=== PATIENT | male | born 1960 | race Caucasian/White ===

== ENCOUNTER 2022-06-18 15:34 | Inpatient (IN) | payer MEDICARE, SELFPAY ==
--- NOTE | 2022-06-18 15:35 | ED_ITS ---
HPI - Chest Pain General: Chief Complaint: Chest Pain Stated Complaint: Chest Pain Time Seen by Provider: 06/18/22 15:35 History of Present Illness: Mr. Trinh is a 62-year-old gentleman with history of NV, strokes, diabetes, hypertension presenting to the emergency department due to chest pain. He reports pain starting yesterday in the substernal chest region with radiation left shoulder and arm. Sharp in nature and more consistent today. Moderate to severe in intensity. Worse with exertion, does note some shortness of breath and nausea. Reports previous cardiac evaluation a pproximately 4 years ago. No other specific changes in health, exacerbating, or alleviating factors identified. Pertinent past history: coronary artery disease and prior NV Onset (ago): day(s) Timing of current episode: constant Prior episodes: Yes Onset: during exertion Pain location: substernal Pain radiation: left arm and left shoulder Severity: moderate Quality: aching and heaviness Exacerbating factors: exertion Associated symptoms: Reports dyspnea and nausea Review of Systems General: Reports: 10 or more systems reviewed and unremarkable except in HPI and below Resp: Reports: dyspnea GI: Reports: nausea PFSH ED PFSH: Medical History Abnormal nuclear stress test Angina at rest Chest pain Diabetes Diabetic neuropathy, painful Hyperglycemia Hypertension Hypertensive urgency Surgical History History of surgical removal of meniscus of knee Family History Other CAD (coronary artery disease) Diabetes Social History Smoking and tobacco status: former smoker Alcohol intake: former Physical Exam Const: COMMON NORMALS: alert GENERAL APPEARANCE: cooperative and well developed HENMT: COMMON NORMALS: normocephalic and atraumatic HEAD & SCALP: normocephalic and atraumatic Eye: COMMON NORMALS: conjunctivae normal CONJUNCTIVA: Yes conjunctivae normal SCLERA: sclerae normal Neck/C-Spine: COMMON NORMALS: supple GENERAL: Yes trachea midline Resp: COMMON NORMALS: clear to auscultation bilaterally EFFORT & INSPECTION: Yes able to speak in complete sentences AUSCULTATION: clear to auscultation bilaterally Cardio: COMMON NORMALS: regular rate and regular rhythm RATE: regular rate RHYTHM: regular rhythm GI: COMMON NORMALS: Soft to palpation PALPATION: Yes Soft to palpation and No Tenderness to palpation present (GI) Extremity: GENERAL: Yes normal exam except as noted and No edema Neuro: COMMON NORMALS: moves all extremities SENSORIUM/ORIENTATION: Yes alert and No Orientation impaired Psych: COMMON NORMALS: mental status grossly normal and Normal thought process present THOUGHT PROCESS: Normal thought process present Course Vital Signs: Vital signs: Vital Signs Temperature 97.9 F 06/23/22 03:38 Pulse Rate 66 06/23/22 17:45 Respiratory Rate 19 H 06/23/22 17:45 Blood Pressure 154/88 06/23/22 18:00 Pulse Oximetry 94 06/23/22 17:30 Oxygen Delivery Me thod 06/23/22 12:30 MDM - Chest Pain Medical Decision Making 62-year-old gentleman presenting with sharp chest pain. Patient does have a cardiac history. EKG notable for sinus rhythm with nonspecific interventricular conduction delay, no STEMI. Labs with no leukocytosis, mild hemoconcentration. Metabolic panel without acute derangement to explain symptoms. 2-hour delta troponin is negative. BNP mildly elevated. D-dimer elevated. Chest x-ray with no lobar consolidation or pneumothorax. Given provided clinical history as well as exam and new oxygen requirement advanced imaging is necessary. CTA negative for acute pathology, incidental findings discussed with patient. Patient is not low risk by heart score. Previous cardiac evaluation is multiple years ago. Symptoms are concerning for cardiac etiology. The results of ED evaluation were discussed with the patient including plan for admission due to requirement for level of care not available if discharged to prevent significant worsening/deterioration. Patient agreeable with plan. Discussed with hospitalist service who was agreeable to admit patient. Medical Records I reviewed the patient's medical records. Lab Data I reviewed the patient's lab results. 06/18/22 16:03 06/18/22 18:18 Radiology Impressions Chest X-Ray 06/18/22 15:44 IMPRESSION: No acute findings. Chest CTA 06/19/22 13:18 IMPRESSION: No evidence for pulmonary embolus. Laboratory Results WBC 8.0 10^3/uL (4.0-10.0) 06/18/22 16:03 RBC 6.44 10^6/uL (4.1-5.3) H 06/18/22 16:03 Hgb 18.3 g/dL (11.7-16.6) H 06/18/22 16:03 Hct 53.5 % (42.0-52.0) H 06/18/22 16:03 MCV 83.1 fl (80-94) 06/18/22 16:03 MCH 28.4 pg (28.0-34.0) 06/18/22 16:03 MCHC 34.2 g/dL (30.0-36.0) 06/18/22 16:03 RDW 13.4 % (12.1-15.1) 06/18/22 16:03 Plt Count 285 10^3/cmm (130-400) 06/18/22 16:03 MPV 11.3 fL (7.4-10.4) H 06/18/22 16:03 Neut % (Auto) 62.1 % 06/18/22 16:03 Lymph % (Auto) 29.3 % 06/18/22 16:03 [place] % (Auto) 7.3 % 06/18/22 16:03 Eos % (Auto) 0.4 % 06/18/22 16:03 Baso % (Auto) 0.5 % 06/18/22 16:03 Neut # (Auto) 4.95 10^3/uL (1.8-7.7) 06/18/22 16:03 Lymph # (Auto) 2.3 10^3/uL (0.8-4.8) 06/18/22 16:03 [place] # (Auto) 0.6 10^3/uL (0.2-0.9) 06/18/22 16:03 Eos # (Auto) 0.0 10^3/uL (0.0-0.8) 06/18/22 16:03 Baso # (Auto) 0.0 10^3/uL (0.0-0.1) 06/18/22 16:03 Nucleated RBC % (auto) 0 % 06/18/22 16:03 Nucleated RBCs # 0.0 /100WBC 06/18/22 16:03 D-Dimer 0.67 ug/mIFEU (0-0.59) H 06/18/22 20:20 Sodium 136 mmol/L (136-145) 06/19/22 04:18 Potassium 3.9 mmol/L (3.5-5.1) 06/19/22 04:18 Chloride 102 mmol/L (98-107) 06/19/22 04:18 Carbon Dioxide 28 mmol/L (22-29) 06/19/22 04:18 Anion Gap 9.9 (5-19) 06/19/22 04:18 BUN 17 mg/dL (8-23) 06/19/22 04:18 Creatinine 1.0 mg/dL (0.7-1.2) 06/19/22 04:18 GFR Calculation 76.0 mL/min (90-130) L 06/19/22 04:18 Glucose 235 mg/dL (65-115) H 06/19/22 04:18 POC Glucose 83 mg/dL (70-110) 06/19/22 16:55 Estimat Average Glucose 206 06/18/22 16:03 Hemoglobin A1c 8.8 % (4.0-6.0) H 06/18/22 16:03 Calculated Osmolality 291 mOsm/kg (285-295) 06/19/22 04:18 Calcium 8.9 mg/dL (8.5-10.5) 06/19/22 04:18 Phosphorus 4.3 mg/dL (2.5-4.5) 06/19/22 04:18 Magnesium 1.8 mg/dL (1.7-2.3) 06/19/22 04:18 Total Bilirubin 0.4 mg/dL (0.15-1.2) 06/18/22 18:18 AST 11 U/L (0-40) 06/18/22 18:18 ALT 11 U/L (0-41) 06/18/22 18:18 Alkaline Phosphatase 124 U/L (40-130) 06/18/22 18:18 Troponin T Baseline 16 ng/L (0-15) H 06/18/22 16:03 Troponin T 120 Minute 17.37 ng/L (0-15) H 06/18/22 18:18 Delta Troponin T 1.37 ABS# (0-10) 06/18/22 18:18 Troponin T Hi Sens 6Hr 22.88 ng/L (0-15) H 06/18/22 22:05 Troponin T Hi Sens 6Hr Delta 6.88 ng/L (0-12) 12/23/22 22:05 C-Reactive Protein 3.0 mg/L (0.0-4.9) 06/19/22 04:18 NT-Pro-B Natriuret Pep 2051 pg/mL (0-125) H 06/18/22 17:15 Total Protein 5.9 g/dL (6.6-8.7) L 06/18/22 18:18 Albumin 3.1 g/dL (3.5-5.2) L 06/18/22 18:18 Globulin 2.8 g/dL (1.3-4.6) 06/18/22 18:18 Lipase Cancelled 06/18/22 16:03 Vitamin B12 479 pg/mL (232-1245) 06/18/22 22:05 Procalcitonin 0.05 ng/mL (0-0.5) 06/18/22 17:15 TSH 3.98 uIU/mL (0.27-4.20) 06/18/22 22:05 Urine Opiates Screen Negative ng/mL (Negative) 06/19/22 08:15 Ur Barbiturates Screen Negative ng/mL (Negative) 06/19/22 08:15 Ur Phencyclidine Scrn Negative ng/mL (Negative) 06/19/22 08:15 Ur Amphetamines Screen Negative ng/mL (Negative) 06/19/22 08:15 U Benzodiazepines Scrn Negative ng/mL (Negative) 06/19/22 08:15 Urine Cocaine Screen Negative ng/mL (Negative) 06/19/22 08:15 U Marijuana (THC) Screen Positive ng/mL (Negative) H 06/19/22 08:15 Influenza Type A Ag negative (Negative) 06/18/22 17:27 Influenza Type B Ag negative (Negative) 06/18/22 17:27 SARS-CoV-2 Ag (Rapid) negative (Negative) 06/18/22 17:27 Discharge Plan Discharge Patient Disposition: Placed in Observation Admit Provider: Yomaira Holder Clinical Impression: Chest pain Discharge Diet: Cardiac Discharge Activity: Increase activity as tolerated Coding Level of Care Code ED Hoister for dandre Fuchs
[2022-06-18 15:42] VITALS: BP 184/104; PULSE 83; RESP 20; O2SAT 100
--- NOTE | 2022-06-18 15:44 | XRR_ITS ---
PROCEDURE INFORMATION: Exam: XR Chest Exam date and time: 06/18/2022 3:47 PM Age: 62 years old Clinical indication: Angina pectoris; Patient HX: Chest pains, cough, since yesterday; Additional info: Cp TECHNIQUE: Imaging protocol: Radiologic exam of the chest. Views: 1 view. COMPARISON: No relevant prior studies available. FINDINGS: Lungs: Unremarkable. No consolidation. Pleural spaces: Unremarkable. No pleural effusion. No pneumothorax. Heart/Mediastinum: Unremarkable. No cardiomegaly. Bones/joints: Unremarkable. XR/XR chest 1V portable [id number] IMPRESSION: No acute findings.
--- NOTE | 2022-06-18 15:44 | ECG_ITS ---
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 Measurements Intervals [place] Rate: 79 P: 54 MD: 159 QRS: -68 QRSD: 117 T: 77 QT: 339 QTc: 391 Interpretive Statements SINUS RHYTHM INCOMPLETE RIGHT BUNDLE BRANCH BLOCK LEFT ANTERIOR FASCICULAR BLOCK SEPTAL MYOCARDIAL INFARCTION , OF INDETERMINATE AGE No previous ECG available for comparison Electronically Signed On 06-18-2022 17:35:12 WAREHOUSE RECORD CLERK by Alice Teixeira M.D. [email or web address] health madisonConsult Mango, Incselect medical cle[facility], beachwoodnothingGrinder/store/NU/[id number] f
[2022-06-18 16:18] LABS: Basophils % 0.5 %; Eosinophils % 0.4 %; Hematocrit 53.5 % (42.0-52.0); Hemoglobin 18.3 g/dL (11.7-16.6); Lymphocytes # 2.3 10^3/uL (0.8-4.8); Lymphocytes % 29.3 %; Mean Corpuscular HGB Conc 34.2 g/dL (30.0-36.0); Mean Corpuscular Hemoglobin 28.4 pg (28.0-34.0); Mean Corpuscular Volume 83.1 fl (80-94); Mean Platelet Volume 11.3 fL (7.4-10.4); Monocytes # 0.6 10^3/uL (0.2-0.9); Monocytes % 7.3 %; Neutrophils # 4.95 10^3/uL (1.8-7.7); Neutrophils % 62.1 %; Nucleated Red Blood Cells % 0 %; Platelet Count 285 10^3/cmm (130-400); Red Blood Count 6.44 10^6/uL (4.1-5.3); Red Cell Distribution Width 13.4 % (12.1-15.1)
[2022-06-18 17:19] LABS: Troponin(5th) Baseline 16 ng/L (0-15)
[2022-06-18 17:47] LABS: NT Pro B Type Natriuretic Pept 2051 pg/mL (0-125); Procalcitonin 0.05 ng/mL (0-0.5)
--- NOTE | 2022-06-18 18:08 | ECG_ITS ---
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 Measurements Intervals Check Rate: 92 P: 46 CT: 161 QRS: -71 QRSD: 111 T: 73 QT: 348 QTc: 432 Interpretive Statements SINUS RHYTHM LEFT AXIS DEVIATION [QRS AXIS < -30] MINIMAL VOLTAGE CRITERIA FOR LVH, CONSIDER NORMAL VARIANT POSSIBLE SEPTAL MYOCARDIAL INFARCTION , OF INDETERMINATE AGE Compared to ECG 06/18/2022 15:43:47 Left-axis deviation now present Incomplete right bundle-branch block no longer present Left anterior fascicular block no longer present Myocardial infarct finding still present Electronically Signed On 06-19-2022 11:03:58 INFORMATION STRATEGIST by Alice Teixeira M.D. [email or web address] medical clevel[facility] clinic rehabilitation [facility], beachwood.[employer] Gentleman/store/[id number]
[2022-06-18 18:25] VITALS: BP 142/72; PULSE 88; RESP 16; O2SAT 95
[2022-06-18 18:27] LABS: Influenza A by IFA negative (Negative); Influenza B by IFA negative (Negative)
[2022-06-18 18:28] LABS: SARS Covid-2 Antigen negative (Negative)
[2022-06-18 18:55] LABS: Alanine Aminotransferase 11 U/L (0-41); Albumin Level 3.1 g/dL (3.5-5.2); Alkaline Phosphatase 124 U/L (40-130); Anion Gap 11.9 (5-19); Aspartate Amino Transferase 11 U/L (0-40); Blood Urea Nitrogen 15 mg/dL (8-23); Calcium 9.3 mg/dL (8.5-10.5); Carbon Dioxide 29 mmol/L (22-29); Chloride 100 mmol/L (98-107); Globulin 2.8 g/dL (1.3-4.6); Glomerular Filtration Rate 98.3 mL/min (90-130); Glucose 290 mg/dL (65-115); Osmolality Calculated 295 mOsm/kg (285-295); Potassium 3.9 mmol/L (3.5-5.1); Sodium 137 mmol/L (136-145); Total Bilirubin 0.4 mg/dL (0.15-1.2); Total Protein 5.9 g/dL (6.6-8.7); Troponin 5 2HR 17.37 ng/L (0-15)
[2022-06-18 18:57] LABS: Troponin 5 2HR Delta 1.37 ABS# (0-10)
--- NOTE | 2022-06-18 19:56 | PM.HP ---
Providers/Chief Complaint Admitting Physician: Yomaira Holder MD Chief Complaint: Chest Pain History of Present Illness Cam Trinh is a 62 year old male moved from [place], currently homeless, living in a van, patient is stating that he mostly stays on the road, history of diabetes, hypertension, diabetic nephropathy, presented to hospital chief complaint of chest pain. Patient stating that his symptoms started yesterday 06/17 when he was sitting in a car with his friends he described the chest pain as squeezing pain radiating towards his left arm which would last for a few seconds and occur repeatedly without any aggravating factors for he has not noticed any nausea, vomiting, recent fever, diarrhea or cold/flu symptoms. Today around 3:30 AM when he woke up to go out in the [place] to urinate he started experiencing chest pain, he ignored his symptoms initially but intensity of pain got worse at that point 911 was called he arrived in the ER around 4 PM. Patient has not taken any of his meals he is hypertensive, hyperglycemic, currently chest pain-free, D-dimer unremarkable 0.67, troponin are flat EKG showing T wave inversions, incomplete right bundle branch block Flu panel negative Chest x-ray unremarkable Patient is setting for years ago he had a stress test which was positive but he never had any intervention done Lead V2 changes are isolated related to bundle branch block, Review of Systems Const: Denies: fever(s) Eyes: Denies: change in vision ENMT: Denies: throat pain Card: Reports: chest pain Resp: Reports: dyspnea GI: Denies: abdominal pain : Denies: flank pain Musc: Denies: neck pain Skin/Breast: Denies: rash Neuro: Denies: headache(s) Psych: Denies: anxiety Endo: Denies: polyuria Shashi/Lymph: Denies: easy bruising All/Imm: Denies: urticaria Medications/Allergies Home Medications Medication Instructions Recorded Confirmed Last Taken Type aspirin 81 mg tablet,delayed 81 mg PO DAILY 06/18/22 06/18/22 Unknown History release gabapentin 300 mg capsule 300 mg PO TID 06/18/22 06/18/22 Unknown History insulin glargine 100 unit/mL (3 See Rx Instructions .Route .COMPLEX 06/18/22 06/18/22 Unknown History mL) subcutaneous pen (Basaglar KwikPen U-100 Insulin) insulin glargine 100 unit/mL (3 See Rx Instructions .Route .COMPLEX 06/18/22 06/18/22 06/15/22 History mL) subcutaneous pen (Lantus Solostar U-100 Insulin) metformin 1,000 mg tablet 1,000 mg PO BID 06/18/22 06/18/22 Unknown History metoprolol tartrate 50 mg tablet 50 mg PO BID 06/18/22 06/18/22 Unknown History ramipril 10 mg capsule 10 mg PO DAILY 06/18/22 06/18/22 Unknown History Allergies Allergy/AdvReac Type Severity Reaction Status Date / Time No Known Allergies Allergy Verified 06/18/22 16:44 PFSH Acute PFSH: Medical History (Updated 06/18/22 @ 21:45 by Yomaira Holder MD) Diabetic neuropathy, painful Hypertension Surgical History (Updated 06/18/22 @ 21:45 by Yomaira Holder MD) History of surgical removal of meniscus of knee Family History (Updated 06/18/22 @ 21:45 by Yomaira Holder MD) Other CAD (coronary artery disease) Diabetes Social History (Updated 06/18/22 @ 21:46 by Yomaira Holder MD) Smoking and tobacco status: former smoker Alcohol intake: former Substance/Drug Use: never Vitals/I&O/Wt Last Vital Signs Pulse 88 06/18/22 18:25 Resp 16 06/18/22 18:25 BP 142/72 06/18/22 18:25 Pulse Ox 95 06/18/22 18:25 O2 Del Method 06/18/22 15:42 Physical Exam Narrative: Disheveled, unkept appearance Patient is not complaining active chest pain S1, S2 Hypertensive Continue on room air Abdomen soft Lower extremity no edema Awake and alert On focal exam Pleasant and cooperative EOMI, PERRLA Data 06/18/22 16:03 06/18/22 18:18 A&P Assessment and plan (1) Angina at rest: Plan Unstable angina Trend troponin Check D-dimer EKG showing isolated changes related to bundle branch block Continue Lovenox DVT prophylaxis Consistent carb diet with insulin and medium dose sliding scale Will request echo to see any wall motion abnormality I am anticipating he will be discharged over the weekend, need optimization of his hypertensive regimen and hypoglycemic regimen. He is homeless currently living in his van has not taken any of his pills Patient is stating that he is not moving back to [place] because his car breaks needs replacement, he will stay in the town for a while Full code DVT prophylaxis on board Attestations Medical Necessity Statement*: Anticipating discharge within 48 hours Time Spent in Patient Care: 40 Coding Level of Care Code Acute Vocational Counselor for Taqueria Fuchs Diagnoses Angina at rest I20.8
[2022-06-18 20:39] LABS: D Dimer 0.67 ug/mIFEU (0-0.59)
[2022-06-18] MEDS: labetalol 5 mg/mL SDV 20mL 10 MG IVP (20:50)
[2022-06-18 21:38] LABS: Glucose Point of Care 292 mg/dL (70-110)
--- NOTE | 2022-06-18 21:38 | ECG_ITS ---
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 Measurements Intervals [place] Rate: 82 P: 57 HI: 163 QRS: -73 QRSD: 117 T: 74 QT: 375 QTc: 438 Interpretive Statements SINUS RHYTHM LEFT AXIS DEVIATION [QRS AXIS < -30] INCOMPLETE RIGHT BUNDLE BRANCH BLOCK [90+ ms QRS DURATION, TERMINAL R IN V1/V2, 40+ ms S IN I/aVL/V4/V5/V6] PROBABLE SEPTAL MYOCARDIAL INFARCTION , OF INDETERMINATE AGE [35 ms Q WAVE IN V1/V2] Compared to ECG 06/18/2022 18:08:16 Incomplete right bundle-branch block now present Myocardial infarct finding still present Electronically Signed On 06-19-2022 10:59:41 MATERIALS ASSISTANT by Alice Teixeira M.D. [id number]
[2022-06-18 22:00] VITALS: BP 145/87; PULSE 86; RESP 18; TEMP 36.6; O2SAT 97
[2022-06-18] MEDS: gabapentin 300 mg Capsule PO (22:12)
[2022-06-18] MEDS: insulin glargine 100 units/1 mL 60 UNIT SUBCUT (22:12)
[2022-06-18] MEDS: enoxaparin 40 mg/0.4 mL Syringe SUBCUT (22:12)
[2022-06-18 22:25] LABS: Estmated Average Glucose 206; Hemoglobin A1C 8.8 % (4.0-6.0)
[2022-06-18 22:34] LABS: Troponin 5 6HR 22.88 ng/L (0-15)
[2022-06-18 22:36] LABS: Troponin 5 6HR Delta 6.88 ng/L (0-12)
[2022-06-18 22:51] LABS: Thyroid Stimulating Hormone 3.98 uIU/mL (0.27-4.20); Vitamin B12 479 pg/mL (232-1245)
[2022-06-19] VITALS (8 sets, daily range): BP systolic 148–190; BP diastolic 70–90; PULSE 60–72; RESP 15–18; TEMP 36.4–36.7; O2SAT 96–99
[2022-06-19 05:26] LABS: Anion Gap 9.9 (5-19); Blood Urea Nitrogen 17 mg/dL (8-23); Calcium 8.9 mg/dL (8.5-10.5); Carbon Dioxide 28 mmol/L (22-29); Chloride 102 mmol/L (98-107); Glucose 235 mg/dL (65-115); Magnesium 1.8 mg/dL (1.7-2.3); Osmolality Calculated 291 mOsm/kg (285-295); Phosphorus 4.3 mg/dL (2.5-4.5); Potassium 3.9 mmol/L (3.5-5.1); Sodium 136 mmol/L (136-145)
--- NOTE | 2022-06-19 06:00 | USCV_ITS ---
Cam Trinh Age: 62 Gender: M : 1960 Exam Date: 06/19/2022 11:30 Ordering Phys: Yomaira Holder MD Technologist: KAYCEE Exam Location: [facility] [place] Indication: Angina BP: 170 / 79 HR: 59 Rhythm: Sinus Technical Quality: Adequate MEASUREMENTS (Male / Female) Normal Values 2D ECHO LV Diastolic Diameter PLAX 5.8 cm 4.2 - 5.9 / 3.9 - 5.3 cm LV Systolic Diameter PLAX 4.1 cm IVS Diastolic Thickness 0.6 cm 0.6 - 1.0 / 0.6 - 0.9 cm IVS Systolic Thickness 1.3 cm LVPW Diastolic Thickness 0.7 cm 0.6 - 1.0 / 0.6 - 0.9 cm LVPW Systolic Thickness 1.4 cm LVOT Diameter 2.3 cm LV Ejection Fraction 2D Teich 56.0 % LV Ejection Fraction MOD 2C 42.5 % LV Ejection Fraction 2C AL 42.9 % LA Diameter 3.5 cm IVC Diameter 1.4 cm M-MODE Aortic Annulus Diameter 3.2 cm LA Ao Ratio MM 1.2 MV E Point Septal Separation 1.3 cm DOPPLER AV Peak Velocity 125.0 cm/s LVOT Peak Velocity 107.0 cm/s AV Area Cont Eq vti 3.2 cm squared AV Area Cont Eq pk 3.6 cm squared MV Area PHT 2.5 cm squared Mitral E to A Ratio 0.7 MV E' Velocity 43.0 cm/s Mitral E to MV E' Ratio 18.2 Mitral E to LV E' Lateral Ratio 20.0 Mitral E to LV E' Septal Ratio 17.1 TR Peak Velocity 197.0 cm/s TR Peak Gradient 15.5 mmHg TV Peak E Velocity 75.0 cm/s Right Atrial Pressure 3.0 mmHg Pulmonary Artery Systolic Pressu 18.5 mmHg FINDINGS Left Ventricle Normal left ventricular size, systolic function and wall thickness, with no regional wall motion abnormalities. Left ventricular ejection fraction is estimated at 55 %. Grade II diastolic dysfunction, moderately elevated filling pressures. Right Ventricle Normal right ventricular size and systolic function. RVSP could not be calculated due to incomplete tricuspid regurgitation velocity profile. Right Atrium Normal right atrial size. Left Atrium Mildly increased left atrial size. Mitral Valve Mild mitral annular calcification. Mildly thickened mitral valve. No mitral valve stenosis. Trace mitral valve regurgitation. Aortic Valve Aortic valve not well visualized. No aortic valve stenosis. Trace aortic valve regurgitation. Tricuspid Valve Structurally normal tricuspid valve. No tricuspid valve stenosis. Trace tricuspid valve regurgitation. Pulmonic Valve Pulmonic valve not well visualized. Pericardium No pericardial effusion. Aorta Normal size aortic root and proximal ascending aorta. IVC Normal IVC dimension with >50% respiratory change of the inferior vena cava. CONCLUSIONS 1. Normal left ventricular size, systolic function and wall thickness, with no regional wall motion abnormalities. Left ventricular ejection fraction is estimated at 55 %. Grade II diastolic dysfunction, moderately elevated filling pressures. 2. Normal right ventricular size and systolic function. 3. Trace aortic valve regurgitation. 4. No prior similar studies to compare. Alice Teixeira MD (Electronically Signed) Final Date: 19 June 2022 14:01 S
[2022-06-19 07:31] LABS: Glucose Point of Care 192 mg/dL (70-110)
[2022-06-19] MEDS: insulin lispro 100 unit/1 mL SUBCUT ×2 (08:30→12:42)
[2022-06-19] MEDS: gabapentin 300 mg Capsule PO ×3 (08:38→20:42)
[2022-06-19] MEDS: lisinopril 20 mg Tablet PO (08:38)
[2022-06-19] MEDS: aspirin 81 mg EC Tablet PO (08:38)
[2022-06-19] MEDS: metoprolol tartrate 50 mg Tablet PO ×2 (08:39→17:16)
[2022-06-19] MEDS: NON-FORMULARY MEDICATION (Insulin Glargine [Lantus Solostar U-100 Insulin] 100 unit/mL (3 40 EACH SUBCUT (08:44)
[2022-06-19 11:01] LABS: Glucose Point of Care 201 mg/dL (70-110)
[2022-06-19 11:04] LABS: Amphetamines Screen Urine Negative (Negative); Barbiturates Screen Urine Negative (Negative); Benzodiazepines Screen Urine Negative (Negative); Cocaine Screen Urine Negative (Negative); Opiate Screen Urine Negative (Negative); PCP Screen Urine Negative (Negative); THC Screen Urine Positive (Negative)
--- NOTE | 2022-06-19 13:14 | P.PN_ITS ---
Subjective Subjective: Seen this morning. No acute events overnight Denies any chest pain at this time Says he has had stress test done 4 years ago and does have a history of coronary artery disease. He is also had an angiogram in the past. He is unsure if he has a stent or not. He says all this work-up was done in [facility]. Right now he is chest pain- free. Does not take his medications at home as he ran out. Does not know the names either. However he does state he was on a blood thinner, insulin, metformin and blood pressure medication. Does not know names or specifics. Denies a history of atrial fibrillation. Vitals/I&O/Wt Last Vital Signs Temp 98.0 F 06/19/22 11:05 Pulse 65 06/19/22 11:05 Resp 15 06/19/22 11:05 BP 170/79 06/19/22 11:05 Pulse Ox 99 06/19/22 11:05 O2 Del Method 06/19/22 11:05 06/18/22 06/19/22 06/19/22 22:59 06:59 14:59 Intake Total 360 / 360 Balance 360 / 360 Physical Exam Narrative: Disheveled, unkept appearance Patient is not complaining active chest pain S1, S2 Hypertensive Continue on room air Abdomen soft Lower extremity no edema Awake and alert On focal exam Pleasant and cooperative EOMI, PERRLA Data 06/18/22 16:03 06/19/22 04:18 A&P Assessment and plan (1) Angina at rest: Plan Unstable angina/chest pain History of CAD Hypertension Diabetes mellitus complicated by peripheral neuropathy Noncompliance to medications Troponins negative. Delta negative. BNP 2000. D-dimer 0.67. Will check CTA. EKG showing isolated changes related to bundle branch block Continue Lovenox DVT prophylaxis Consistent carb diet with insulin and medium dose sliding scale Will request echo to see any wall motion abnormality Will do stress test Tuesday. Continue lisinopril 20 mg daily Add amlodipine 5 mg daily. Full code DVT prophylaxis on board Attestations Medical Necessity Statement*: Patient will be kept in the hospital. Stress test on Tuesday. Echo is pending at this time. Time Spent in Patient Care: 40 Coding Level of Care Code Acute Barrel Endshaker Adjuster for Taqueria Fuchs Diagnoses Angina at rest I20.8
--- NOTE | 2022-06-19 13:18 | CTR_ITS ---
PROCEDURE INFORMATION: Exam: CTA Chest With Contrast Exam date and time: 06/19/2022 8:24 PM Age: 62 years old Clinical indication: Pain; Shortness of breath; Chest pressure; Additional info: R/O pe TECHNIQUE: Imaging protocol: Computed tomographic angiography of the chest with contrast. 3D rendering (Not supervised by radiologist): MIP and/or 3D reconstructed images were created by the technologist. Radiation optimization: All CT scans at this facility use at least one of these dose optimization techniques: automated exposure control; mA and/or kV adjustment per patient size (includes targeted exams where dose is matched to clinical indication); or iterative reconstruction. Contrast material: OMNI 350; Contrast volume: 100 ml; Contrast route: INTRAVENOUS (IV); COMPARISON: CR XR chest 1V portable [id number] 06/18/2022 3:47 PM RADIATION DOSE METRICS: Total DLP (mGy-cm): 500.01 FINDINGS: Pulmonary arteries: Normal. No pulmonary emboli. Aorta: Unremarkable. No aortic aneurysm. No aortic dissection. Lungs: Incidentally noted is a benign calcified granuloma in the left upper lobe. Pleural spaces: Unremarkable. No pneumothorax. No pleural effusion. Heart: Unremarkable. No cardiomegaly. No pericardial effusion. Coronary arteries: There are scattered calcifications in the left anterior descending coronary artery. Lymph nodes: Unremarkable. No enlarged lymph nodes. Bones/joints: There are minimal chronic appearing compression fracture is of the T3 and T5 superior endplates. Degenerative changes are present in the visualized spine. Soft tissues: Unremarkable. CT/CT angio chest PE protcl [id number] IMPRESSION: No evidence for pulmonary embolus.
[2022-06-19 17:05] LABS: Glucose Point of Care 83 mg/dL (70-110)
[2022-06-19] MEDS: iohexol 350 mg/mL 500 mL Btl (per mL) IV (20:03)
[2022-06-19] MEDS: enoxaparin 40 mg/0.4 mL Syringe SUBCUT (20:42)
[2022-06-19] MEDS: insulin glargine 100 units/1 mL 60 UNIT SUBCUT (20:45)
[2022-06-19 22:40] LABS: Glucose Point of Care 225 mg/dL (70-110)
[2022-06-20] VITALS (8 sets, daily range): BP systolic 147–169; BP diastolic 77–90; PULSE 60–68; RESP 16–19; TEMP 36.3–36.7; O2SAT 97–99
[2022-06-20 02:33] LABS: Glucose Point of Care 95 mg/dL (70-110)
[2022-06-20 05:21] LABS: Basophils % 0.5 %; Eosinophils % 0.5 %; Hematocrit 40.5 % (42.0-52.0); Hemoglobin 13.7 g/dL (11.7-16.6); Lymphocytes # 1.5 10^3/uL (0.8-4.8); Lymphocytes % 23.2 %; Mean Corpuscular HGB Conc 33.8 g/dL (30.0-36.0); Mean Corpuscular Hemoglobin 28.6 pg (28.0-34.0); Mean Corpuscular Volume 84.6 fl (80-94); Mean Platelet Volume 9.9 fL (7.4-10.4); Monocytes # 0.4 10^3/uL (0.2-0.9); Monocytes % 6.4 %; Neutrophils # 4.55 10^3/uL (1.8-7.7); Neutrophils % 68.9 %; Nucleated Red Blood Cells % 0 %; Platelet Count 231 10^3/cmm (130-400); Red Blood Count 4.79 10^6/uL (4.1-5.3); Red Cell Distribution Width 13.4 % (12.1-15.1); White Blood Count 6.6 10^3/uL (4.0-10.0)
[2022-06-20 05:38] LABS: Anion Gap 12.6 (5-19); Blood Urea Nitrogen 17 mg/dL (8-23); Carbon Dioxide 26 mmol/L (22-29); Chloride 102 mmol/L (98-107); Glomerular Filtration Rate 85.8 mL/min (90-130); Glucose 127 mg/dL (65-115); Osmolality Calculated 287 mOsm/kg (285-295); Potassium 3.6 mmol/L (3.5-5.1); Sodium 137 mmol/L (136-145)
[2022-06-20] MEDS: insulin glargine 100 units/1 mL 40 UNIT SUBCUT ×2 (06:12→20:17)
[2022-06-20 07:45] LABS: Glucose Point of Care 103 mg/dL (70-110)
[2022-06-20] MEDS: gabapentin 300 mg Capsule PO ×3 (08:13→20:17)
[2022-06-20] MEDS: lisinopril 20 mg Tablet PO (08:13)
[2022-06-20] MEDS: amlodipine 5 mg Tablet PO (08:13)
[2022-06-20] MEDS: metoprolol tartrate 50 mg Tablet PO ×2 (08:13→16:06)
[2022-06-20] MEDS: aspirin 81 mg EC Tablet PO (08:13)
--- NOTE | 2022-06-20 10:09 | PM.PN ---
Subjective Subjective: Seen this morning. No acute events overnight. Vitals/I&O/Wt Last Vital Signs Temp 97.3 F L 06/20/22 08:00 Pulse 65 06/20/22 08:00 Resp 16 06/20/22 08:00 BP 164/90 06/20/22 08:00 Pulse Ox 98 06/20/22 08:00 O2 Del Method 06/20/22 08:00 06/19/22 06/20/22 06/20/22 22:59 06:59 14:59 Intake Total 1200 / 1800 360 / 360 Output Total 400 / 400 Balance 1200 / 1800 -400 / 1400 360 / 360 Physical Exam Narrative: Disheveled, unkept appearance Patient is not complaining active chest pain S1, S2 Hypertensive Continue on room air Abdomen soft Lower extremity no edema Awake and alert On focal exam Pleasant and cooperative EOMI, PERRLA Data 06/20/22 04:23 06/20/22 04:23 A&P Assessment and plan (1) Angina at rest: Plan Unstable angina/chest pain History of CAD Hypertension Diabetes mellitus complicated by peripheral neuropathy Noncompliance to medications Troponins negative. Delta negative. BNP 2000. D-dimer 0.67. Will check CTA. EKG showing isolated changes related to bundle branch block Continue Lovenox DVT prophylaxis Consistent carb diet with insulin and medium dose sliding scale 1. Normal left ventricular size, systolic function and wall ?thickness, with no regional wall motion abnormalities. Left ?ventricular ejection fraction is estimated at 55 %. Grade II ?diastolic dysfunction, moderately elevated filling pressures. ?2. Normal right ventricular size and systolic function. ?3. Trace aortic valve regurgitation. ?4. No prior similar studies to compare. Will do stress test Tuesday. Continue lisinopril 20 mg daily Add amlodipine 5 mg daily. Full code DVT prophylaxis on board Attestations Medical Necessity Statement*: Patient will be kept in the hospital. Stress test on Tuesday. 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
[2022-06-20 11:04] LABS: Glucose Point of Care 170 mg/dL (70-110)
[2022-06-20] MEDS: insulin lispro 100 unit/1 mL SUBCUT ×3 (12:47→17:28)
--- NOTE | 2022-06-20 14:15 | ECG_ITS ---
[facility] Test Date: 2022-06-22 Pat Name: Cam Trinh Department: Room: 252 Gender: Male Meter Reading Clerk: Shona Krishnamurthy : 1960 Requested By: Juany Davey Order Number: [id number] Gavi MD: Jeffry Pugh M.D. Interpretive Statements NAME OF STUDY: LEXISCAN SESTAMIBI STRESS TEST INDICATION: Chest Pain, PROCEDURE: At the baseline, the EKG revealed normal sinus rhythm with a rate of 80 bpm. Left axis deviation. Some nonspecific T wave changes. Features are left into hypertrophy based on voltage criteria. The baseline heart was 80 bpm with a blood pressue of 180/96 mm of Hg Lexiscan was infused over a period of 20 seconds. A total of 0.4 milligrams of Lexiscan was infused. The stress phase was continued for a total of 5 minutes. Heart rate at the end of the stress phase was 93 bpm with a blood pressure 169/91 mm of Hg. The EKG at the peak infusion revealed no significant changes. Sestamibi was injected 20 seconds after the Lexiscan infusion. Heart rate at the end of the recovery phase was 94 bpm with a blood pressure of 154/90 mm of Hg. CONCLUSION: 1. No significant EKG changes with the LexiScan infusion 2. No LexiScan induced chest pain or cardiac arrhythmia 3. Normal blood pressure and heart rate response 4. Sestamibi/sestamibi perfusion scan pending; see separate report. Electronically Signed On 06-22-2022 18:24:19 SWIMMING POOL INSTALLER AND SERVICER by Jeffry Pugh M.D. [id number]
[2022-06-20] MEDS: acetaminophen 500 mg Tablet PO (16:05)
[2022-06-20 16:59] LABS: Glucose Point of Care 184 mg/dL (70-110)
[2022-06-20] MEDS: enoxaparin 40 mg/0.4 mL Syringe SUBCUT (20:17)
[2022-06-20 21:23] LABS: Glucose Point of Care 109 mg/dL (70-110)
[2022-06-21] VITALS (9 sets, daily range): BP systolic 145–177; BP diastolic 77–89; PULSE 54–75; RESP 15–18; TEMP 36.4–36.8; O2SAT 97–98
[2022-06-21 03:00] LABS: Glucose Point of Care 72 mg/dL (70-110)
[2022-06-21 04:10] LABS: Glucose Point of Care 149 mg/dL (70-110)
[2022-06-21 05:46] LABS: Anion Gap 10.9 (5-19); Blood Urea Nitrogen 16 mg/dL (8-23); Calcium 8.6 mg/dL (8.5-10.5); Carbon Dioxide 27 mmol/L (22-29); Chloride 102 mmol/L (98-107); Glomerular Filtration Rate 85.8 mL/min (90-130); Glucose 181 mg/dL (65-115); Osmolality Calculated 288 mOsm/kg (285-295); Potassium 3.9 mmol/L (3.5-5.1); Sodium 136 mmol/L (136-145)
[2022-06-21 06:30] LABS: Glucose Point of Care 145 mg/dL (70-110)
[2022-06-21] MEDS: aspirin 81 mg EC Tablet PO (07:54)
[2022-06-21] MEDS: lisinopril 20 mg Tablet PO (07:54)
[2022-06-21] MEDS: amlodipine 5 mg Tablet PO (07:54)
[2022-06-21] MEDS: gabapentin 300 mg Capsule PO ×3 (07:54→21:46)
[2022-06-21] MEDS: metoprolol tartrate 50 mg Tablet PO ×2 (07:54→16:56)
--- NOTE | 2022-06-21 10:47 | PC.CHAP ---
Pastoral Care Encounter/Spiritual Assessment Type of Contact [] Declined oxygen tank filler visit [] Patient/Family/Request visit [] Outpatient visit [] Follow-up visit [] Physician referral [] Code/Alert x[x] Routine visit [] Staff referral [] Actively dying [] Patient sleeping [] Family support [] [] Out of room [] Palliative care [] [] Receiving care in room [] Pre-surgical visit [] Trauma [] Long length of stay [] ICU visit [] Other: Relational/Emotional Strength []x Patient feels connected with others/family/visitors/staff [] Distress [] Loneliness/isolation [] Abandonment Spirituality of Patient [x] Person of Gwendolyn [] Attends Shinto of their Gwendolyn [x] Believes in Prayer [] Reads Bible or Buddhism materials [] There are Spiritual issues to be addressed 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 [x] Prayer [x] Active listening x[] Non-anxious presence [x] Spiritual/emotional support [] Crisis/trauma care [] Spiritual counseling [] Bereavement support [] Provided bereavement packet [] Provided Bible/devotional materials [] Provided toy/stuffed animal, coloring book to patient or family member [] Provided Communion [] Anointing/[place] [] Salvation [x] Completed spiritual assessment [] Other: Impact on Illness or Injury [] Angry [] Fearful [] Anxious [] Often cries [] Exhaustion [] Unable to work [] Unable to attend sabianist [] Unable to walk/stand [] Unable to read [] Unable to drive [] Unable to eat/drink [] Unable to sleep [] Unable to be with family [] Patient intubated [] Other: Summary Time spent with patient 10 min
--- NOTE | 2022-06-21 11:47 | PM.PN ---
Subjective Subjective: Nuc med not available today, stress test tomorrow morning She is stating that he has a couple of episode of chest pain but he is fine not complaining of any active chest pain today Vitals/I&O/Wt Last Vital Signs Temp 97.5 F L 06/21/22 04:00 Pulse 67 06/21/22 08:00 Resp 17 06/21/22 08:00 BP 158/86 06/21/22 08:00 Pulse Ox 97 06/21/22 08:00 O2 Del Method 06/20/22 16:10 06/20/22 06/21/22 06/21/22 22:59 06:59 14:59 Intake Total 720 / 1560 580 / 2140 Balance 720 / 1560 580 / 2140 Physical Exam Narrative: Awake and alert Euvolemic Hydrated S1, S2 Abdomen soft Nonfocal neuro exam Pleasant cooperative Hemodynamically stable Data 06/20/22 04:23 06/21/22 04:16 A&P Assessment and plan (1) Hyperglycemia: (2) Hypertensive urgency: (3) Angina at rest: Plan Unstable angina: Stress test tomorrow morning, nuc med not available today No active chest pain Hyperglycemia improved Grade 2 diastolic function, not in exacerbation Plan to discharge him tomorrow if stress test is negative Full code Consistent carb diet Attestations Medical Necessity Statement*: Discharge tomorrow Time Spent in Patient Care: 30 Coding Level of Care Code 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
[2022-06-21 12:44] LABS: Glucose Point of Care 141 mg/dL (70-110)
[2022-06-21 17:22] LABS: Glucose Point of Care 89 mg/dL (70-110)
[2022-06-21 20:49] LABS: Glucose Point of Care 210 mg/dL (70-110)
[2022-06-21] MEDS: insulin glargine 100 units/1 mL 40 UNIT SUBCUT (21:46)
[2022-06-21] MEDS: enoxaparin 40 mg/0.4 mL Syringe SUBCUT (21:46)
[2022-06-22] VITALS (9 sets, daily range): BP systolic 136–179; BP diastolic 71–91; PULSE 53–97; RESP 14–17; TEMP 36.4–36.9; O2SAT 96–100
[2022-06-22 02:38] LABS: Glucose Point of Care 62 mg/dL (70-110)
[2022-06-22] MEDS: dextrose 5 % 500 ML 50 ML IV (02:58)
[2022-06-22 03:17] LABS: Glucose Point of Care 116 mg/dL (70-110)
--- NOTE | 2022-06-22 03:43 | PC.NURSE ---
pt c/o of 'feeling weird', was clammy to touch. blood sugar checked and was at 62. pt currently npo for stress test in the am, hypoglycemic protocol initiated. 500ml bag d5w started at 50ml/hr and d70 was hung and run by rn over 15min. after 15min sugar recheck showed sugar to be 116. will continue to monitor.
[2022-06-22 06:20] LABS: Glucose Point of Care 124 mg/dL (70-110)
--- NOTE | 2022-06-22 06:24 | PC.NURSE ---
called dr hill to discuss scheduled am lantus of 40units. informed dr of pt hypoglycemic episode overnight with administration of d5w and d70, with morning accucheck only resulting in a blood sugar of 124. dr ordered morning dose to be held.
--- NOTE | 2022-06-22 10:33 | PC.NURSE ---
Patient to [facility] Med at this time.
[2022-06-22] MEDS: regadenoson 0.4 Mg/5 ml Syringe IVP (10:34)
--- NOTE | 2022-06-22 10:56 | PM.PN ---
Subjective Subjective: Patient is going for stress test today No more episodes of chest pain or shortness of breath His friends are at the bedside Vitals/I&O/Wt Last Vital Signs Temp 97.6 F 06/22/22 08:00 Pulse 60 06/22/22 08:00 Resp 17 06/22/22 08:00 BP 166/85 06/22/22 08:00 Pulse Ox 99 06/22/22 08:00 O2 Del Method 06/22/22 03:49 06/21/22 06/22/22 06/22/22 22:59 06:59 14:59 Intake Total 120 / 360 50 / 410 Output Total 0 / 0 Balance 120 / 360 50 / 410 Physical Exam Narrative: Patient sitting comfortably in his bed Euvolemic Hemodynamic stable Nonfocal neuro exam S1, S2 Abdomen soft Awake and alert [employer] mood and affect Data 06/20/22 04:23 06/21/22 04:16 A&P Assessment and plan (1) Hyperglycemia: (2) Hypertensive urgency: (3) Angina at rest: Plan Stress test today If negative we can discharge him with prescription sent to [facility] in [place] Hemodynamically stable I would adjust antibiotic regimen because he is still hypertensive Continue insulin Increase amlodipine to 10 mg and lisinopril to 40 mg Attestations Medical Necessity Statement*: Anticipating discharge later today if stress test is negative Time Spent in Patient Care: 40 Coding Level of Care 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
--- NOTE | 2022-06-22 12:31 | PC.SOCIAL ---
Pg 2 IMM Explained to pt Pg 2 IMM. No questions voiced. Provided pt a copy. Initialed, dated, & timed a copy & placed in chart.
--- NOTE | 2022-06-22 14:15 | NMCV_ITS ---
NM camelia perf SPECT r/s* [id number] Cam Trinh Age: 62 Gender: M : 1960 Exam Date: 06/22/2022 10:27 Ordering Phys: Juany Davey MD Technologist: ITZEL Galan Exam Location: [facility] Indications: CHEST PAIN STRESS TEST [facility] IMAGE PROTOCOL Rest/Stress 1 Lexiscan Day Radiopharmaceutical Dose (mCi) Administration Site Administered by Rest: Tc-99m 11.0 IV ITZEL Galan Sestamibi Stress:Tc-99m 33.0 IV ITZEL Wheatley Sestamibi Rest: 22-Jun-2022 60 Discovery 630 Stress: 22-Jun-2022 30 Discovery 630 0.4mg Lexiscan. Images obtained in supine and prone position. SPECT RESULTS Technical Quality: Excellent Raw Data Analysis: Normal Image Corrections: No attenuation or motion correction applied Summed Stress Score: 4 Summed Rest Score: 1 Summed Difference Score: 4 PERFUSION FINDINGS Moderate area of moderately decreased tracer uptake was noted in the basal and mid inferior and mid inferoseptal regions. Some reversibility was noted in these regions with the supine imaging. However with the prone imaging, no significant reversible defects were noted. FUNCTIONAL RESULTS (calculated via Gated SPECT) Stress Image LV EF (%): 43 Stress EDV (mL):144 TID: 1.12 Stress ESV (mL):82 FUNCTIONAL FINDINGS: Segmental wall motion analysis revealing diffuse hypokinesia of the LV apex, mid and apical lateral segments. IMPRESSIONS 1. Myocardial perfusion imaging revealing moderate area of reversible defect in the inferior and inferoseptal regions suggesting ischemia in the distribution of the right coronary artery. However because of the inconsistency with the prone imaging, the reliability is questionable. 2. Diminished LV ejection fraction of 43%. 3. LV wall motion analysis revealed diffuse hypokinesia of the LV apex, mid and apical septal segments 4. Mildly dilated LV cavity with LV systolic volume of 82 ml. No similar previous studies are available for comparison Dr Jeffry Pugh MD [facility] (Electronically Signed) Final Date: 22 June 2022 16:31 S
[2022-06-22] MEDS: gabapentin 300 mg Capsule PO ×2 (15:20→21:02)
--- NOTE | 2022-06-22 16:48 | PM.PN ---
Subjective Subjective: Positive stress test, patient will need angiogram cardiology consulted Vitals/I&O/Wt Last Vital Signs Temp 98.4 F 06/22/22 16:00 Pulse 87 06/22/22 16:00 Resp 17 06/22/22 16:00 BP 179/91 06/22/22 16:00 Pulse Ox 97 06/22/22 16:00 O2 Del Method 06/22/22 03:49 06/22/22 06/22/22 06/22/22 06:59 14:59 22:59 Intake Total 50 / 410 Balance 50 / 410 Physical Exam Narrative: Patient sitting comfortably in his bed Euvolemic Hemodynamic stable Nonfocal neuro exam S1, S2 Abdomen soft Awake and alert [employer] mood and affect Data 06/20/22 04:23 06/21/22 04:16 A&P Assessment and plan (1) Abnormal nuclear stress test: Plan Positive stress test results, will need angiogram, cardiology consulted Hypertension, optimize antihypertensive regimen N.p.o. 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
[2022-06-22 17:31] LABS: Glucose Point of Care 266 mg/dL (70-110)
[2022-06-22] MEDS: metoprolol tartrate 50 mg Tablet PO (17:55)
--- NOTE | 2022-06-22 17:57 | PM.CONSULT ---
Providers/Reason For Consult Consulting Physician/Specialty*: Dr. Teixeira, cardiology Reason for Consult*: Abnormal stress test, chest pain Attending Physician: Yomaira Holder MD History of Present Illness History of Present Illness Cam Trinh is a 62 year old male with PMHx of HTN , DM-2 insulin dependant, diabetic neuropathy and dyslipidemia. He moved from [place] and is currently living in a van. Patient started having chest pains that felt sharp on left upper chest when he was sitting in a car with his friend. He had few other spells that lasted less than 1 min. Later Tuesday morning, he developed chest pain squeezing pain radiating towards his left arm which lasted for 5 minutes. No nausea, vomiting, recent fever, diarrhea or cold/flu symptoms.? Troponins without significant delta change. EKG w/o any significant ST-T wave changes. Prior cath few years back that showed some plaque per patient. He underwent stress test today that showed ischemia in RCA territory and hence I have been asked to evaluate the patient. Patient c/o intermittent twinges in chest on and off. Review of Systems General: Reports: 10 or more systems reviewed and unremarkable except in HPI and below Const: Denies: fever(s) Eyes: Denies: change in vision ENMT: Denies: throat pain Card: Reports: chest pain Resp: Reports: dyspnea GI: Denies: abdominal pain, hematochezia or melena : Denies: flank pain or hematuria Musc: Denies: neck pain Skin/Breast: Denies: rash Neuro: Denies: headache(s) Psych: Denies: anxiety Endo: Denies: polyuria Shashi/Lymph: Denies: easy bruising, petechiae or purpura All/Imm: Denies: urticaria Medications/Allergies Home Medications Medication Instructions Recorded Confirmed Last Taken Type aspirin 81 mg tablet,delayed 81 mg PO DAILY 06/18/22 06/18/22 Unknown History release gabapentin 300 mg capsule 300 mg PO TID 06/18/22 06/18/22 Unknown History insulin glargine 100 unit/mL (3 See Rx Instructions .Route .COMPLEX 06/18/22 06/18/22 Unknown History mL) subcutaneous pen (Basaglar KwikPen U-100 Insulin) insulin glargine 100 unit/mL (3 See Rx Instructions .Route .COMPLEX 06/18/22 06/18/2206/15/22 History mL) subcutaneous pen (Lantus Solostar U-100 Insulin) metformin 1,000 mg tablet 1,000 mg PO BID 06/18/22 06/18/22 Unknown History metoprolol tartrate 50 mg tablet 50 mg PO BID 06/18/22 06/18/22 Unknown History ramipril 10 mg capsule 10 mg PO DAILY 06/18/22 06/18/22 Unknown History Allergies Allergy/AdvReac Type Severity Reaction Status Date / Time No Known Allergies Allergy Verified 06/18/22 16:44 Current Medications Generic Name Dose Route Start Last Admin Trade Name Freq PRN Reason Stop Dose Admin Acetaminophen 500 mg 06/18/22 21:22 06/20/22 16:05 Acetaminophen 500 Mg Tablet PO 500 mg Q4H PRN Administration fever Aspirin 81 mg 06/19/22 09:00 06/22/22 14:19 Aspirin 81 Mg Ec Tablet PO Not Given DAILY ESTRELLA Enoxaparin Sodium 40 mg 06/18/22 21:22 06/21/22 21:46 Enoxaparin 40 Mg/0.4 Ml Syringe SUBCUT 40 mg Q24H ESTRELLA Administration Gabapentin 300 mg 06/18/22 21:22 06/22/22 15:20 Gabapentin 300 Mg Capsule PO 300 mg TID ESTRELLA Administration Dextrose 500 mls @ 100 mls/hr 06/18/22 21:22 06/22/22 02:58 D5w IV 50 mls/hr ONCE PRN Administration Adult Acute Hypoglycemia Prot Protocol Insulin Glargine 40 unit 06/21/22 06:00 06/22/22 06:24 Insulin Glargine 100 Units/1 Ml SUBCUT Not Given QAM ESTRELLA Insulin Glargine 40 unit 06/20/22 21:00 06/21/22 21:46 Insulin Glargine 100 Units/1 Ml SUBCUT 40 unit BEDTIME ESTRELLA Administration Insulin Human Lispro 0 unit 06/19/22 08:00 06/22/22 14:19 Insulin Lispro 100 Unit/1 Ml SUBCUT Not Given TIDWM ESTRELLA Protocol Metoprolol Tartrate 50 mg 06/19/22 09:00 06/22/22 14:20 Metoprolol Tartrate 50 Mg Tablet PO Not Given BID ESTRELLA PFSH Acute PFSH: Medical History (Updated 06/22/22 @ 21:53 by Alice Teixeira MD) Diabetes Diabetic neuropathy, painful Hypertension Surgical History History of surgical removal of meniscus of knee Family History Other CAD (coronary artery disease) Diabetes Social History Smoking and tobacco status: former smoker Alcohol intake: former Substance/Drug Use: never Vitals/I&O/Wt Last Vital Signs Temp 98.4 F 06/22/22 16:00 Pulse 87 06/22/22 16:00 Resp 17 06/22/22 16:00 BP 179/91 06/22/22 16:00 Pulse Ox 97 06/22/22 16:00 O2 Del Method 06/22/22 03:49 06/22/22 06/22/22 06/22/22 06:59 14:59 22:59 Intake Total 50 / 410 Balance 50 / 410 Physical Exam Narrative: GENERAL: Averagely built and averagely nourished in no acute distress HEENT: Extraocular movement intact. No pallor or icterus. NECK: central trachea, No JVD. No carotid bruit. CARDIOVASCULAR SYSTEM: S1-S2 regular. No murmur rubs or gallops. RESPIRATORY SYSTEM: Chest clear to auscultation. No wheezes rhonchi or rubs heard. No use of accessory muscles. ABDOMEN: Soft, nontender and nondistended. Normal bowel sounds present. EXTREMITIES: No cyanosis or edema. No signs of chronic venous insufficiency. ELECTRONIC DEVICE MONITOR: Patient is alert oriented ?3. No focal neurological deficits. SKIN: Normal turgor and temperature. PSYCH: Normal insight and judgment. Data 06/20/22 04:23 06/21/22 04:16 Other data: Lexiscan sestamibi MPI (06/22/22) IMPRESSIONS ?1.? Myocardial perfusion imaging revealing moderate area of reversible defect ?in the inferior and inferoseptal regions suggesting ischemia in the ?distribution of the right coronary artery.? However because of the ?inconsistency with the prone imaging, the reliability is questionable. ?2.? Diminished LV ejection fraction of 43%. ?3.? LV wall motion analysis revealed diffuse hypokinesia of the LV apex, mid ?and apical septal segments ?4.? Mildly dilated LV cavity with LV systolic volume of 82 ml. ?No similar previous studies are available for comparison. TTE (06/19/22) CONCLUSIONS ?1. Normal left ventricular size, systolic function and wall ?thickness, with no regional wall motion abnormalities. Left ?ventricular ejection fraction is estimated at 55 %. Grade II ?diastolic dysfunction, moderately elevated filling pressures. ?2. Normal right ventricular size and systolic function. ?3. Trace aortic valve regurgitation. ?4. No prior similar studies to compare. A&P Assessment and plan (1) Chest pain: (2) Abnormal nuclear stress test: Stress test with moderate area of ischemia in RCA territory with supine stress images. I discussed with patient option of medical management an LHC. Patient opted for LHC as he is still having intermittent chest pains -Risks and benefits were discussed with the patients. Alternate management options were discussed with the patient as well. Possible complications including risk of heart attack stroke and , coronary perforation, arrhythmia, cardiac tamponade in urgent CABG were discussed with the patient as well. --Plan is to proceed for the procedure tomorrow. 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
--- NOTE | 2022-06-22 18:42 | PC.NURSE ---
Patient states that he is super sensitive to insulin. Patient states that 2 units will drop him 50 points on his blood sugar. Patient refused evening dose of 10 units stating that it will drop him to low.
--- NOTE | 2022-06-22 19:45 | PC.NURSE ---
Report given to Maira AVILES at this oscar.
[2022-06-22] MEDS: enoxaparin 40 mg/0.4 mL Syringe SUBCUT (21:02)
[2022-06-22] MEDS: clopidogrel 300 mg Tablet PO (21:02)
[2022-06-22 21:03] LABS: Glucose Point of Care 213 mg/dL (70-110)
[2022-06-23] VITALS (75 sets, daily range): BP systolic 126–181; BP diastolic 56–110; PULSE 54–73; RESP 0–27; TEMP 36.6; O2SAT 81–99
[2022-06-23 06:26] LABS: Glucose Point of Care 89 mg/dL (70-110)
[2022-06-23] MEDS: metoprolol tartrate 50 mg Tablet PO ×2 (07:46→17:09)
[2022-06-23] MEDS: aspirin 81 mg EC Tablet PO (07:47)
[2022-06-23] MEDS: clopidogrel 75 mg Tablet PO (07:47)
[2022-06-23] MEDS: diphenhydrAMINE 50 mg Capsule PO (07:47)
[2022-06-23] MEDS: atorvastatin 40 mg Tablet 80 MG PO (07:47)
[2022-06-23] MEDS: amlodipine 10 mg Tablet PO (07:48)
[2022-06-23] MEDS: gabapentin 300 mg Capsule PO ×2 (07:48→16:28)
[2022-06-23] MEDS: lisinopril 20 mg Tablet 40 MG PO (07:48)
[2022-06-23] MEDS: chlorthalidone 25 mg Tablet PO (07:54)
[2022-06-23 08:00] LABS: Glucose Point of Care 80 mg/dL (70-110)
[2022-06-23 08:14] LABS: Basophils % 0.8 %; Eosinophils % 0.6 %; Hematocrit 45.8 % (42.0-52.0); Hemoglobin 15.6 g/dL (11.7-16.6); Lymphocytes # 2.2 10^3/uL (0.8-4.8); Lymphocytes % 42.3 %; Mean Corpuscular HGB Conc 34.1 g/dL (30.0-36.0); Mean Corpuscular Hemoglobin 28.5 pg (28.0-34.0); Mean Corpuscular Volume 83.6 fl (80-94); Mean Platelet Volume 9.4 fL (7.4-10.4); Monocytes # 0.5 10^3/uL (0.2-0.9); Monocytes % 9.6 %; Neutrophils # 2.38 10^3/uL (1.8-7.7); Neutrophils % 46.5 %; Nucleated Red Blood Cells % 0 %; Platelet Count 266 10^3/cmm (130-400); Red Blood Count 5.48 10^6/uL (4.1-5.3); Red Cell Distribution Width 13.2 % (12.1-15.1); White Blood Count 5.1 10^3/uL (4.0-10.0)
[2022-06-23 08:24] LABS: INR 0.99 (0.8-1.2)
[2022-06-23 08:29] LABS: Anion Gap 9.7 (5-19); Blood Urea Nitrogen 14 mg/dL (8-23); Carbon Dioxide 28 mmol/L (22-29); Chloride 100 mmol/L (98-107); Glomerular Filtration Rate 98.3 mL/min (90-130); Glucose 90 mg/dL (65-115); Osmolality Calculated 278 mOsm/kg (285-295); Potassium 3.7 mmol/L (3.5-5.1); Sodium 134 mmol/L (136-145)
[2022-06-23] MEDS: sodium chloride 0.9% 1,000 ML 50 ML IV (08:55)
[2022-06-23 09:05] LABS: CRP High Sensitivity Cardiac < 0.150 mg/dL (0.0-0.3); Chol HDL Ratio 5.26 mg/dL (1.0-5.00); Cholesterol 184 mg/dL (0-200); HDL Cholesterol 35 mg/dL (60-100); LDL Cholesterol Calculated 132 mg/dL (50-129); LDL Cholesterol Direct 134 mg/dL (0-100); LDL HDL Ratio 3.77 RATIO (0.00-3.22); Triglycerides 84 mg/dL (0-150)
--- NOTE | 2022-06-23 10:00 | XACV_ITS ---
Exam Room: [facility] Ht: 175 cm Wt: 111 kg BSA: 2.37 m2 Gender: Male : 1960 Any Known Allergies: No known allergies Exam Priority: Routine Procedure(s): Procedure Description: Diagnostic procedure Procedure Description: Left Heart Catheterization Procedure Description: Coronary Angiography Diagnostic Cath Status: Urgent Diagnostic Findings * INDICATION: Worsening chest pain/ abnormal stress test. * No significant disease noted in the Left Main, Left Anterior Descending, Right, or Circumflex coronary arteries. * Coronary angiography shows right dominance. Conclusions 1. No significant disease noted in the Left Main, Left Anterior Descending, Right, or Circumflex coronary arteries. Recommendations * Aggressive risk factor modification. * Outpatient cardiology follow up in 4 weeks. Interventional RX Recommendation: medical therapy and/or counseling Diagnostic RX Recommendation: medical therapy and/or counseling Anticoagulation: Heparin Pressures Phase:Rest AO : 119 / 64 ( 82 ) @ 11:12:00 AM 132 / 70 ( 93 ) @ 11:17:00 AM 132 / 70 ( 92 ) @ 11:17:00 AM LV : 128 / -5 / 16 @ 11:17:00 AM 129 / -5 / 16 @ 11:17:00 AM Valves Phase:DefaultPhase AV : 0.0 @ 11:24:18 AM AV Mean Gradient: 0.0 @ 11:24:18 AM Clinical Evaluation EBL: 5mL-10mL Procedural Details Pre-Procedure Time Out. Identified patient by full name and date of as verbalized by the patient/guarantor. Does the consent match the physician's order: Yes. Accurate & Complete Informed Consent: Yes. Inpatient/Outpatient History & Physical on Chart: Yes. If H&P is completed, is and addenduem needed: No; If yes, is the addendum complete: N/A. Visualize and Verify Site with Patient/Guarantor: N/A. Relevant Radiology Images available: Yes. Pre-op teaching completed and patient verbalized understanding. The risks, benefits, and alternatives of sedation and/or procedure were discussed by physician. The patient agrees to continue. Procedure started. [facility] Clinical Fraility Score: 3: Managing Well. Nurse Anesthesia Program Director Indications: Suspected CAD. Chest Pain Symptom Assessment: Atypical Angina. Correct patient, site and procedure confirmed by cath team. Current diagnosis: NSTEMI. PERRLA. Strong, equal hand hand suture winder bilaterally. Lungs clear x 5 lobes. IV Site on Arrival: 18 gauge in the right anticubital. IV Fluids: 0.9% NaCl at KVO. 100 mL infused prior to manager cardiac cath. Pre Procedural Pulses: right radial was 2+. Oxygen started at 2liters/min via nasal canula. right groin was prepped with chloroprep then draped in the usual sterile fashion. right radial was prepped with chloroprep then draped in the usual sterile fashion. Baseline sample Acquired. HR: 58 BPM. Physician arrived. Physician scrubbed in. Immediate Pre-Procedure Time Out. Correct Patient: Yes; Correct Procedure: Yes; Correct Site: Yes; Correct Patient Position: Yes; Correct Supplies: Yes; Dried Flammable Prep: Yes; Blood Products Available: N/A;. Current Diagnosis : NSTEMI. Lidocaine 1% infiltrated to the right radial. Arterial access obtained. A 5 [place] TIG catheter in over wire. Multiple views taken of left coronary artery. Catheter redirected to the RCA. Multiple views taken of right coronary artery. EDP Sample taken: LV 128/-6,16; HR: 58 BPM; SpO2: 94%. Pullback taken: LV 129/-6,16; AO 132/70(93); Mean: 0mmHg, Peak to Peak: 0mmHg, SEP: 6sec/min; HR: 58 BPM; SpO2: 95%. Catheter removed over the exchange wire. Physician scrubbed out. Physician review of cine films. A TR Band was successful obtaining hemostatsis at the Right Radial artery insertion site. Post Procedure: Pulses reassessed and unchanged. PERRLA. Strong, equal hand hand suture winder bilaterally. No VTE prophylaxis required. Medication's Wasted: Lidocaine 1% = 2 mL. Medication's Wasted: Nitro = 49.8 mg. Medication's Wasted: Heparin = 1000 units \. Medication's Wasted: Other = Fentanyl 50 mcg Versed 1 mg. Complications: None. Total IV fluids: 34 mL. Estimated blood loss: 5mL-10mL. Responsiveness - Normal response to verbal stimuli; alert and oriented, PERRLA. Vital chart was stopped. Airway - Unaffected, no intervention required; spontaneous ventilation. Circulation: W/N/L, pulses unchanged. Nausea/Vomiting: No. Procedure completed. Patient transferred by wheelchair to CPRU. Access Site Site: Right Radial artery Sheath Size: 6 Fr Hemostasis Method: TR Band Hemostasis Success: Successful Procedure Medications Start: 11:03 AM Stop: 11:03 AM Medication: Versed Amount: 1 mg Route: I.V. Start: 11:03 AM Stop: 11:03 AM Medication: Fentanyl Amount: 50 mcg Route: I.V. Start: 11:10 AM Stop: 11:10 AM Medication: Nitrogylcerin Amount: 200 mcg Route: I.A. Start: 11:11 AM Stop: 11:11 AM Medication: Heparin Amount: 5000 units Route: I.V. I, the attending physician, have reviewed and verified all procedure medications. Yes, all medications given per verbal order History/Risk Factors Hypertension: Yes Dyslipidemia: Yes Peripheral Arterial Disease (PAD): No Myocardial Infarction (MA): No Obesity: No Renal Disease: No Tobacco Use: Former Prior Interventions PCI: No CABG: No Valve Surgery: No Report Signatures Finalized by Washington Tilley MD on 06/23/2022 12:44 PM
[2022-06-23 10:23] LABS: Glucose Point of Care 111 mg/dL (70-110)
--- NOTE | 2022-06-23 10:54 | W.PM.OPSUD ---
Surgery/Procedure H&P Update DATE OF PROCEDURE: June 23, 2022 DATE H&P PERFORMED: 06/22/22 H&P UPDATE INFORMATION: I have reviewed H&P completed within last 30 days, I have examined patient prior to procedure and No changes to prior documentation PREOP DIAGNOSIS: Chest pain/ Abnormal stress test PRIMARY INDICATION FOR PROCEDURE: Chest pain/ Abnormal stress test PLANNED PROCEDURE: Left heart cath with possible percutaneous coronary intervention PATIENT REASSESSED PRIOR TO SEDATION, WITH NO CHANGE NOTED: Yes PHYSICAL EXAM: alert, oriented x 3, clear to auscultation bilaterally and regular rate & rhythm AIRWAY EVAL/ANESTHESIA PLAN: normal airway, ASA III, Local Anesthesia, Risks, benefits & alternatives of sedation and/or procedure discussed and Patient agrees to continue as planned ADDITIONAL INFORMATION: Moderate sedation
--- NOTE | 2022-06-23 11:57 | P.DS_ITS ---
Discharge Providers Date of Admission: 06/19/22 18:48 Date of Discharge: June 22, 2022 Attending Provider at Admission: Yomaira Holder MD Attending Provider at Discharge: Yomaira Holder MD Diagnoses at Discharge Discharge Diagnosis (1) Hyperglycemia: Status: Acute (2) Hypertensive urgency: Status: Acute (3) Angina at rest: Status: Acute Reason for Visit Reason for Visit: Chest Pain Hospital Course Hospital Course 62-year male who was admitted to the hospital for management of unstable angina, he was hyperglycemic, hypertensive, he could not take his medication because he has been living in a van, he had decided to leave in a van and not own a home, [place] one [place]. Cardiac stress test was requested. Echo did not show any wall motion abnormality. Antihypertensive regimen amlodipine 10 mg and lisinopril 40 mg along metoprolol. Drug screen negative. For positive stress test, cardiology was consulted, angiogram was unremarkable, cath report pending, as per Dr. Teixeira no signs of coronary disease, decision was made to optimize antianginal, continue antihypertensive regimen Patient is being discharged in stable condition, hemodynamically stable. Physical Exam Narrative: Patient sitting comfortably in his bed Euvolemic Hemodynamic stable Nonfocal neuro exam S1, S2 Abdomen soft Awake and alert [employer] mood and affect Discharge Data Studies Completed and Pending Completed Studies During Hospitalization Category Date Time Status CT angio chest PE protcl [id number] Routine Cat Scan 06/19/22 13:18 Completed XR chest 1V portable [id number] Stat Exams 06/18/22 15:44 Completed CV. echo complete* [id number] Routine Ultrasound 06/19/22 06:00 Completed Pending at discharge Category Date Time Status Sestamibi Stress Test Request Routine Exams 06/20/22 14:15 Ordered Sestamibi Stress Test Request Routine Exams 06/20/22 14:15 Stop Req NM camelia perf SPECT r/s* [id number] Routine Nuc Med 06/22/22 14:15 Ordered Radiology Impressions Chest X-Ray 06/18/22 15:44 IMPRESSION: No acute findings. Chest CTA 06/19/22 13:18 IMPRESSION: No evidence for pulmonary embolus. Laboratory Results WBC 6.6 10^3/uL (4.0-10.0) 06/20/22 04:23 RBC 4.79 10^6/uL (4.1-5.3) 06/20/22 04:23 Hgb 13.7 g/dL (11.7-16.6) 06/20/22 04:23 Hct 40.5 % (42.0-52.0) L 06/20/22 04:23 MCV 84.6 fl (80-94) 06/20/22 04:23 MCH 28.6 pg (28.0-34.0) 06/20/22 04:23 MCHC 33.8 g/dL (30.0-36.0) 06/20/22 04:23 RDW 13.4 % (12.1-15.1) 06/20/22 04:23 Plt Count 231 10^3/cmm (130-400) 06/20/22 04:23 MPV 9.9 fL (7.4-10.4) 06/20/22 04:23 Neut % (Auto) 68.9 % 06/20/22 04:23 Lymph % (Auto) 23.2 % 06/20/22 04:23 [place] % (Auto) 6.4 % 06/20/22 04:23 Eos % (Auto) 0.5 % 06/20/22 04:23 Baso % (Auto) 0.5 % 06/20/22 04:23 Neut # (Auto) 4.55 10^3/uL (1.8-7.7) 06/20/22 04:23 Lymph # (Auto) 1.5 10^3/uL (0.8-4.8) 06/20/22 04:23 [place] # (Auto) 0.4 10^3/uL (0.2-0.9) 06/20/22 04:23 Eos # (Auto) 0.0 10^3/uL (0.0-0.8) 06/20/22 04:23 Baso # (Auto) 0.0 10^3/uL (0.0-0.1) 06/20/22 04:23 Nucleated RBC % (auto) 0 % 06/20/22 04:23 Nucleated RBCs # 0.0 /100WBC 06/20/22 04:23 D-Dimer 0.67 ug/mIFEU (0-0.59) H 06/18/22 20:20 Sodium 136 mmol/L (136-145) 06/21/22 04:16 Potassium 3.9 mmol/L (3.5-5.1) 06/21/22 04:16 Chloride 102 mmol/L (98-107) 06/21/22 04:16 Carbon Dioxide 27 mmol/L (22-29) 06/21/22 04:16 Anion Gap 10.9 (5-19) 06/21/22 04:16 BUN 16 mg/dL (8-23) 06/21/22 04:16 Creatinine 0.9 mg/dL (0.7-1.2) 06/21/22 04:16 GFR Calculation 85.8 mL/min (90-130) L 06/21/22 04:16 Glucose 181 mg/dL (65-115) H 06/21/22 04:16 POC Glucose 124 mg/dL (70-110) H 06/22/22 06:09 Estimat Average Glucose 206 06/18/22 16:03 Hemoglobin A1c 8.8 % (4.0-6.0) H 06/18/22 16:03 Calculated Osmolality 288 mOsm/kg (285-295) 06/21/22 04:16 Calcium 8.6 mg/dL (8.5-10.5) 06/21/22 04:16 Phosphorus 4.3 mg/dL (2.5-4.5) 06/19/22 04:18 Magnesium 1.8 mg/dL (1.7-2.3) 06/19/22 04:18 Total Bilirubin 0.4 mg/dL (0.15-1.2) 06/18/22 18:18 AST 11 U/L (0-40) 06/18/22 18:18 ALT 11 U/L (0-41) 06/18/22 18:18 Alkaline Phosphatase 124 U/L (40-130) 06/18/22 18:18 Troponin T Baseline 16 ng/L (0-15) H 06/18/22 16:03 Troponin T 120 Minute 17.37 ng/L (0-15) H 06/18/22 18:18 Delta Troponin T 1.37 ABS# (0-10) 06/18/22 18:18 Troponin T Hi Sens 6Hr 22.88 ng/L (0-15) H 06/18/22 22:05 Troponin T Hi Sens 6Hr Delta 6.88 ng/L (0-12) 06/18/22 22:05 C-Reactive Protein 3.0 mg/L (0.0-4.9) 06/19/22 04:18 NT-Pro-B Natriuret Pep 2051 pg/mL (0-125) H 06/18/22 17:15 Total Protein 5.9 g/dL (6.6-8.7) L 06/18/22 18:18 Albumin 3.1 g/dL (3.5-5.2) L 06/18/22 18:18 Globulin 2.8 g/dL (1.3-4.6) 06/18/22 18:18 Lipase Cancelled 06/18/22 16:03 Vitamin B12 479 pg/mL (232-1245) 06/18/22 22:05 Procalcitonin 0.05 ng/mL (0-0.5) 06/18/22 17:15 TSH 3.98 uIU/mL (0.27-4.20) 06/18/22 22:05 Urine Opiates Screen Negative ng/mL (Negative) 06/19/22 08:15 Ur Barbiturates Screen Negative ng/mL (Negative) 06/19/22 08:15 Ur Phencyclidine Scrn Negative ng/mL (Negative) 06/19/22 08:15 Ur Amphetamines Screen Negative ng/mL (Negative) 06/19/22 08:15 U Benzodiazepines Scrn Negative ng/mL (Negative) 06/19/22 08:15 Urine Cocaine Screen Negative ng/mL (Negative) 06/19/22 08:15 U Marijuana (THC) Screen Positive ng/mL (Negative) H 06/19/22 08:15 Influenza Type A Ag negative (Negative) 06/18/22 17:27 Influenza Type B Ag negative (Negative) 06/18/22 17:27 SARS-CoV-2 Ag (Rapid) negative (Negative) 06/18/22 17:27 Vitals Last Vital Signs Temp 97.6 F 06/22/22 08:00 Pulse 60 06/22/22 08:00 Resp 17 06/22/22 08:00 BP 166/85 06/22/22 08:00 Pulse Ox 99 06/22/22 08:00 O2 Del Method 06/22/22 03:49 Discharge Plan Discharge Patient Disposition: Home Condition: Stable Prescriptions: New lisinopril 20 mg Tablet 40 mg PO DAILY Qty: 60 0RF insulin glargine [Basaglar KwikPen U-100 Insulin] 100 unit/mL (3 mL) insulin pen 30 unit SUBCUT QPM Qty: 15 0RF amlodipine 10 mg Tablet 10 mg PO DAILY Qty: 60 0RF Continued metformin 1,000 mg Tablet 1,000 mg PO BID Label Comments: pt. has not taken any home meds in quite a while he has been out gabapentin 300 mg Capsule 300 mg PO TID Label Comments: pt. has not taken any home meds in quite a while he has been out insulin glargine [Basaglar KwikPen U-100 Insulin] 100 unit/mL (3 mL) Insulin Pen See Rx Instructions .ROUTE .COMPLEX Label Comments: pt. has not taken any home meds in quite a while he has been out Rx Instructions: DIRECTED insulin glargine [Lantus Solostar U-100 Insulin] 100 unit/mL (3 mL) Insulin Pen See Rx Instructions .ROUTE .COMPLEX Label Comments: pt. has not taken any home meds in quite a while he has been out Rx Instructions: 40 unit subcutaneously in the AM 60 UNITS PM metoprolol tartrate 50 mg Tablet 50 mg PO BID Qty: 60 0RF Label Comments: pt. has not taken any home meds in quite a while he has been out aspirin 81 mg Tablet,Delayed Release (Dr/Ec) 81 mg PO DAILY Qty: 60 0RF Label Comments: pt. has not taken any home meds in quite a while he has been out Discontinued ramipril 10 mg Capsule 10 mg PO DAILY Label Comments: pt. has not taken any home meds in quite a while he has been out Discharge Orders: Discharge Order (Routine); Ordered 06/23/22 Ordered By: Yomaira Holder Discharge Diet: Cardiac Discharge Activity: Increase activity as tolerated Patient Instructions: Opioid Safety Discharge Attestations Time Spent in Discharge Care*: less than 30 min Quality Metrics Clinical Quality Measures [ No reported AMI, CVA or VTE this stay] Coding Level of Care Code Acute Chg FW DC note Diagnoses Hyperglycemia R73.9 Hypertensive urgency I16.0 Angina at rest I20.8
--- NOTE | 2022-06-23 12:03 | SUR.EXTENDED ---
received the patient back from the labor arbitrator hearing office at 1130 s/p diagnostic radial LHC via wheelchair. patient ambulated to the bed sieht ease. alert and oriented x 3. technical services librarian placed and vital signs obtained. TR band intact to the right wrist with no bleeding or hematoma noted. palpable radial pulse. 20g PIV in Right AC patient with NS running at 75ml/hr from the labor arbitrator hearing office. lungs CTAB. post radial activity instructions given to the patient with his understanding verbalized. no concerns voiced at this time. will transfer to CSU when bed available.
--- NOTE | 2022-06-23 12:34 | SUR.EXTENDED ---
letting the air out of the TR band per protocol
--- NOTE | 2022-06-23 12:46 | SUR.EXTENDED ---
transferred to CSU via wheelchair.
--- NOTE | 2022-06-23 12:59 | PC.NURSE ---
received from cardiac farm laborer at 1250 via w/c.pt is alert and oriented x 4.denies pain at present.sr on monitor.right wrist with tr band on and inflated.right hand is warm to touch and with brisk capillary refill.no hematoma noted.pt oriented to room environment.instructed in activity restrictions s/p radial artery procedure...and instructed to notify staff for any bleeding,pain ,numbness or for any concerns at all.pt verb understanding of instructions
[2022-06-23] MEDS: acetaminophen 500 mg Tablet PO (16:31)
[2022-06-23 16:49] LABS: Glucose Point of Care 266 mg/dL (70-110)
[2022-06-23] MEDS: insulin lispro 100 unit/1 mL SUBCUT (17:08)
--- NOTE | 2022-06-23 18:19 | PC.NURSE ---
discharge instructions given and explained.pt verb understanding.prescriptions provided by meds to [facility] pharmacy.discharged via ambulatory to exit.son to drive pt home
== END 2022-06-23 18:21 | disposition home or self-care (01) | DRG 287 ==
LOC: ER 19:32 → MEDSURG 19:54 → CSU 06-23 11:31
PROVIDERS: Internal Medicine; Internal Medicine Cardiovascular Disease; Admitting Provider Internal Medicine; Emergency Provider Emergency Medicine; Visit Provider Internal Medicine
PROC: 4A023N7 Measurement of Cardiac Sampling and Pressure, Left Heart, Percutaneous Approach (ICD-10-PCS; principal; 2022-06-23 11:30)
DX: I20.0 Unstable angina (principal); E11.65 Type 2 diabetes mellitus with hyperglycemia; E11.42 Type 2 diabetes mellitus with diabetic polyneuropathy; Z79.84 Long term (current) use of oral hypoglycemic drugs; Z79.4 Long term (current) use of insulin; Z79.82 Long term (current) use of aspirin; Z59.02 Unsheltered homelessness; I10 Essential (primary) hypertension; Z87.891 Personal history of nicotine dependence; Z91.128 Patient's intentional underdosing of medication regimen for other reason; R94.39 Abnormal result of other cardiovascular function study; E78.5 Hyperlipidemia, unspecified
CPT/HCPCS: 36415; 36416; 71045; 71275; 78452; 80048; 80053; 80061; 80306; 82607; 82962; 83036; 83721; 83735; 83880; 84100; 84145; 84443; 84484; 85025; 85378; 85610; 86140; 86141; 87426; 87804; 93005; 93017; 93306; 93458; 96372; 96374; 99152; 99153; 99285; A9500; C1769; C1887; C1894; G0378; J1644; J1650; J1815; J2250; J2785; J3010; J3490; J7030; J7060; Q0163; Q9967

== ENCOUNTER 2023-09-08 12:22 | Inpatient (IN) | payer MEDICARE, SELFPAY ==
[2023-09-08] VITALS (24 sets, daily range): BP systolic 144–178; BP diastolic 87–99; PULSE 66–81; RESP 18–29; TEMP 36.7; O2SAT 92–98; BMI 36.2
--- NOTE | 2023-09-08 12:35 | USCV_ITS ---
Cam Trinh Age: 63 Gender: M : 1960 Exam Date: 09/08/2023 13:24 Ordering Phys: Norman Shore MD Technologist: Exam Location: [facility] [place] Indication: nstemi BP: / HR: 66 Rhythm: Sinus Technical Quality: Adequate MEASUREMENTS (Male / Female) Normal Values 2D ECHO LV Ejection Fraction MOD 2C 40.2 % LV Ejection Fraction 2C AL 43.1 % RA Systolic Volume 4C AL 25.4 ml RA Systolic Volume 4C MOD 27.2 ml DOPPLER AV Peak Velocity 127.0 cm/s LVOT Peak Velocity 77.0 cm/s MV Peak Velocity 130.0 cm/s MV Area PHT 4.2 cm squared Mitral E to A Ratio 2.4 FINDINGS Left Ventricle Left ventricle is normal in size. LV systolic function is moderately reduced with EF of 35 to 40%. Moderate global hypokinesis seen. Right Ventricle Normal in size and function Right Atrium Normal in size Left Atrium Normal in size Mitral Valve Structurally normal mitral valve. Mild mitral regurgitation. Aortic Valve No significant stenosis. Trace aortic regurgitation. Tricuspid Valve Not well visualized Pulmonic Valve Not well visualized Pericardium Pleural effusion noted. Aorta Not well visualized IVC Not well visualized CONCLUSIONS Technically limited quality echocardiogram because of poor ultrasonic windows. LV systolic function is moderately reduced with EF of 35 to 40%. Mild mitral regurgitation Trace aortic regurgitation Pleural effusion seen. Compared to prior echocardiogram from 06/19/2022, LV systolic function has decreased significantly. Washington Tilley MD (Electronically Signed) Final Date: 09 September 2023 08:41 S
--- NOTE | 2023-09-08 12:37 | P.HP_ITS ---
Providers/Chief Complaint 2 Admitting Physician: Norman Shore Primary Care Provider: Nik Leahy Chief Complaint: instemi/Chf History of Present Illness Pleasant 63-year-old gentleman with history of congestive heart failure, previously admitted from to Tuesday of this week at [facility] due to congestive heart failure exacerbation with severe lower extremity edema, was treated with diuretics with improvement in edema, at that time also sustained acute kidney injury, creatinine was as high as 2.15 with diuresis. Troponins at that time were moderately elevated with flat trend 94- 92. He was discharged, return to the hospital this morning after calling EMS he was found to be hypoxic oxygen saturation 80s, complaint of chest pressure. On presentation still with lower extremity edema although better than during prior admission. Complaint chest pressure 9/10, received Nitropaste with improvement down to 3/10 overnight MSF. There was a question of possible STEMI initially, although on reassessment at CTF had mild ST segment upward deviation and was assessed to not have STEMI. Transfer to [facility] was requested, discussed with cardiology, and he is admitted for assessment management of NSTEMI. Troponin elevated MSF was up to 121. Kidney function slightly better but still with REGINO, 2.04. Currently he is still having chest pressure 7/10. At MSF D-dimer also reported elevated 1.33. There he received aspirin, loading dose of Plavix 600 mg, started on heparin drip in addition to the Nitropaste. He has history of coronary disease, previously also low ejection fraction back in 2020 EF 50%, on [employer] Specialist report in 2021 EF 60%, noted LAD stenosis 3% proximally, mid LAD 30% and 30% distal. Ramus intermedius 40% stenosis and proximal RCA 30% stenosis. He reports he was having cough at the beginning of the prior hospitalization but not currently. Denies hemoptysis. Has not been tachycardic. Review of Systems 2 Const: Denies: fever(s), chills, body aches or malaise ENMT: Denies: throat pain Card: Reports: chest pain (Pressure); Denies: edema, pre-syncope or dyspnea on exertion Resp: Denies: dyspnea, productive cough, change in phlegm color or hemoptysis GI: Denies: abdominal pain, nausea, vomiting, diarrhea, constipation, hematochezia or melena : Denies: flank pain, difficulty urinating, urinary frequency or hematuria Musc: Denies: back pain, joint swelling or joint redness Skin/Breast: Denies: rash or new lesions Neuro: Denies: headache(s) or dizziness Medications/Allergies Home Medications Medication Instructions Recorded Confirmed Last Taken Type aspirin 81 mg tablet,delayed 81 mg PO DAILY #60 tabs 06/22/22 09/08/23 Unknown Rx release docusate sodium 100 mg capsule 100 mg PO BID #180 caps 09/07/23 09/08/23 Unknown Rx flash glucose scanning reader #1 ea 09/07/23 09/08/23 Unknown Rx (FreeStyle Igor 14 Day [place]) flash glucose sensor (FreeStyle #1 ea 09/07/23 09/08/23 Unknown Rx Igor 14 Day Sensor kit) metoprolol tartrate 50 mg tablet 50 mg PO BID #180 tabs 09/07/23 09/08/23 Unknown Rx omeprazole 40 mg capsule,delayed 40 mg PO DAILY #90 caps 09/07/23 09/08/23 Unknown Rx release acetaminophen 500 mg tablet 1,000 mg PO Q6H PRN Pain 09/08/23 09/08/23 Unknown History aspirin-caffeine 845 mg-65 mg oral 1 ea PO DAILY PRN Pain 09/08/23 09/08/23 Unknown History powder packet (BC Pain Relief) atorvastatin 20 mg tablet 40 mg PO BEDTIME 09/08/23 09/08/23 Unknown History cetirizine 10 mg tablet (Zyrtec) 10 mg PO DAILY PRN Allergy Symptoms 09/08/23 09/08/23 Unknown History clopidogrel 75 mg tablet 75 mg PO QAM 09/08/23 09/08/23 Unknown History duloxetine 30 mg capsule,delayed 30 mg PO QAM 09/08/23 09/08/23 Unknown History release hydralazine 25 mg tablet 25 mg PO TID PRN Blood Pressure 09/08/23 09/08/23 Unknown History insulin glargine 100 unit/mL 20 unit SUBCUT BID 09/08/23 09/08/23 Unknown History subcutaneous solution (Lantus U-100 Insulin) metformin 500 mg tablet 500 mg PO BID 09/08/23 09/08/23 Unknown History Allergies Allergy/AdvReac Type Severity Reaction Status Date / Time No Known Allergies Allergy Verified 09/08/23 15:45 PFSH Acute 2 PFSH: Medical History Hypertension Diabetes Abnormal nuclear stress test Hyperglycemia Hypertensive urgency Angina at rest Diabetic neuropathy, painful Chest pain Surgical History History of surgical removal of meniscus of knee Family History Other CAD (coronary artery disease) Diabetes Social History Smoking and tobacco/nicotine status: former use of tobacco/nicotine Alcohol intake: former Substance/Drug Use: never Physical Exam 2 Narrative: Accompanied by family Const: COMMON NORMALS: patient oriented x3 and alert GENERAL APPEARANCE: c ooperative NUTRITIONAL APPEARANCE: obese ORIENTATION/CONSCIOUSNESS: Yes awake HENMT: COMMON NORMALS: oropharynx normal Neck/C-Spine: COMMON NORMALS: no JVD Resp: COMMON NORMALS: normal respiratory effort and clear to auscultation bilaterally AUSCULTATION: diminished lung sounds Cardio: COMMON NORMALS: no JVD, regular rhythm, S1 normal heart sound present, S2 normal heart sound present and No murmurs present (Cardio) RHYTHM: regular rhythm HEART SOUNDS: S1 normal heart sound present and S2 normal heart sound present GI: COMMON NORMALS: Normal to inspection, nondistended, normoactive bowel sounds present, Soft to palpation and non-tender PALPATION: Yes Soft to palpation Extremity: COMMON NORMALS: no joint enlargement GENERAL: Yes edema (3+ BLLE) Neuro: COMMON NORMALS: patient oriented x3 and moves all extremities S ENSORIUM/ORIENTATION: Yes alert Skin: COMMON NORMALS: no rashes or lesions noted GENERAL SKIN EXAM: no rashes or lesions noted OTHER: Chronic stasis dermatitis Data 09/08/23 12:51 A&P Assessment and plan (1) NSTEMI (non-ST elevated myocardial infarction): He is still having chest pressure 7/10. Reviewed vitals, troponin, D-dimer discussed ER physician and MSF, discussed with air bag curer. On my interpretation of EKG no obvious STEMI, although there is some nonspecific ST elevation isolated to V6. Discussed with cardiology. Requesting troponin and EKG series, monitor on telemetry with risk of arrhythmia. Continued evaluation, risk of bleeding, monitor PTTs, follow-up blood counts. Monitor for bleeding. Continue aspirin, Plavix. Statin. Requesting to confirm home medications. Assess with TTE. Reviewed past echocardiogram and stress test from 2021. As he is still having chest pressure, discussed with cardiology and with patient we will start him on nitro drip. (2) CHF (congestive heart failure): Acute diastolic congestive heart failure exacerbation. Now with NSTEMI. With REGINO, continue Lasix IV 60 mg every 12 hours. Monitor SHAISTA, weights. At risk of electrolyte abnormality and renal dysfunction with IV diuretics, reassess chemistry, renal function. Still significant lower extremity edema, elevated D-dimer, requesting lower extremity duplex ultrasound. (3) REGINO (acute kidney injury): Reassess renal function, electrolytes, acid-base balance. Check kidney ultrasound. Monitor urine output. Plan Hypoxia: Oxygen saturation 1 picked up by EMS in the 80s, secondary to CHF exacerbation. D-dimer is abnormal. He is on anticoagulation as above. Requesting VQ scan. CTA not preferred due to renal dysfunction and consideration of cardiac catheterization. Elevated D-dimer: 1.3. He had cough during the beginning of prior hospitalization, but states not now. No hemoptysis, no tachycardia. Does have lower extremity edema. Requesting duplex ultrasound. Empirically on anticoagulation. Requesting VQ scan. DM2: Monitor Accu-Cheks, sliding scale insulin. Long-acting insulin. CC diet HTN: Monitor blood pressures. Requesting to confirm home medications and will resume. Other medical problems. Attestations 2 Medical Necessity Statement*: Admission of over 2 midnights anticipated for assessment management of NSTEMI, decompensated CHF, and gentleman with REGINO. Diagnoses NSTEMI (non-ST elevated myocardial infarction) I21.4 CHF (congestive heart failure) I50.9 REGINO (acute kidney injury) N17.9
[2023-09-08 13:09] LABS: Platelet Count 249 10^3/cmm (157-399)
--- NOTE | 2023-09-08 14:42 | ECG_ITS ---
[facility] Test Date: 2023-09-08 Pat Name: Cam Trinh Department: Room: 105 Gender: Male Supervisory Investigative Specialist: : 1960 Requested By: Norman Shore Order Number: [id number] Reading MD: Washington Tilley M.D. Measurements Intervals [place] Rate: 71 P: 41 KS: 176 QRS: -33 QRSD: 126 T: 121 QT: 405 QTc: 440 Interpretive Statements SINUS RHYTHM LEFT AXIS DEVIATION [QRS AXIS < -30] LATERAL MYOCARDIAL INFARCTION , AGE INDETERMINATE [40+ ms Q WAVE AND/OR ST/T ABNORMALITY IN I/aVL/V5/V6] Compared to ECG 06/18/2022 21:38:14 Incomplete right bundle-branch block no longer present Myocardial infarct finding still present Electronically Signed On 09-09-2023 8:15:47 CDT by Washington Tilley M.D. [id number]
[2023-09-08] MEDS: nitroglycerin drip 50 MG/250 ML PREMIX IV (15:06)
[2023-09-08] MEDS: FUROsemide 10 mg/mL SDV 10mL 60 MG IVP (15:09)
[2023-09-08 15:18] LABS: Troponin(5th) Baseline 133 ng/L (0-15)
[2023-09-08 15:30] LABS: Troponin 5 2HR Delta 0.4 ABS# (0-10)
[2023-09-08 15:45] LABS: Troponin 5 2HR 133.4 ng/L (0-15)
--- NOTE | 2023-09-08 15:45 | PC.PHAR ---
pt and pts brought in medication bottles-pt states he does not take glipizide 5mg bid or kcl 10meq bid both written from israel brooks 09/07/23-pts med bottle has lipitor 20mg take 2 tabs (40mg) hs order written by israel brooks 09/07/23 20mg daily and rx bottle has metformin plain 500mg bid rx order written 09/07/23 1000mg bid-medications entered are what the pts med bottles show and what [facility] states they have filled for the pt
--- NOTE | 2023-09-08 16:17 | P.CONIM_ITS ---
Providers/Reason For Consult 2 Consulting Physician/Specialty*: Washington Tilley MD/ Cardiology Reason for Consult*: Congestive heart failure/ NSTEMI Requesting Physician: Dr Shore Attending Physician: Norman Shore Primary Care Provider: Nik Leahy History of Present Illness History of Present Illness Cam Trinh is a 63 year old male with past medical history of hypertension, diabetes who had coronary angiogram in 2021 with no significant CAD was admitted to outside hospital 1 to 2 weeks ago with congestive heart failure symptoms. He was medically managed and discharged. He came back again with chest discomfort and volume overload. Also had orthopnea. His troponin was elevated at 90 at outside facility. At our facility it had trended up to 133. However after that did not trend up further. Echo shows moderately reduced LV systolic function with EF of 35 to 40%. This is a new decrease compared to before. He is also complaining of chest pain. Initially was quite significant. He has been started on nitro drip.EKG showing sinus rhythm with non-specific ST T wave changes. Review of Systems 2 Const: Denies: fever(s), chills, body aches or malaise ENMT: Denies: throat pain Card: Reports: chest pain (Pressure); Denies: edema, pre-syncope or dyspnea on exertion Resp: Denies: dyspnea, productive cough, change in phlegm color or hemoptysis GI: Denies: abdominal pain, nausea, vomiting, diarrhea, constipation, hematochezia or melena : Denies: flank pain, difficulty urinating, urinary frequency or hematuria Musc: Denies: back pain, joint swelling or joint redness Skin/Breast: Denies: rash or new lesions Neuro: Denies: headache(s) or dizziness Medications/Allergies Home Medications Medication Instructions Recorded Confirmed Last Taken Type aspirin 81 mg tablet,delayed 81 mg PO DAILY #60 tabs 06/22/22 09/08/23 Unknown Rx release docusate sodium 100 mg capsule 100 mg PO BID #180 caps 09/07/23 09/08/23 Unknown Rx flash glucose scanning reader #1 ea 09/07/23 09/08/23 Unknown Rx (FreeStyle Igor 14 Day [place]) flash glucose sensor (FreeStyle #1 ea 09/07/23 09/08/23 Unknown Rx Igor 14 Day Sensor kit) metoprolol tartrate 50 mg tablet 50 mg PO BID #180 tabs 09/07/23 09/08/23 Unknown Rx omeprazole 40 mg capsule,delayed 40 mg PO DAILY #90 caps 09/07/23 09/08/23 Unknown Rx release acetaminophen 500 mg tablet 1,000 mg PO Q6H PRN Pain 09/08/23 09/08/23 Unknown History aspirin-caffeine 845 mg-65 mg oral 1 ea PO DAILY PRN Pain 09/08/23 09/08/23 Unknown History powder packet (BC Pain Relief) atorvastatin 20 mg tablet 40 mg PO BEDTIME 09/08/23 09/08/23 Unknown History cetirizine 10 mg tablet (Zyrtec) 10 mg PO DAILY PRN Allergy Symptoms 09/08/23 09/08/23 Unknown History clopidogrel 75 mg tablet 75 mg PO QAM 09/08/23 09/08/23 Unknown History duloxetine 30 mg capsule,delayed 30 mg PO QAM 09/08/23 09/08/23 Unknown History release hydralazine 25 mg tablet 25 mg PO TID PRN Blood Pressure 09/08/23 09/08/23 Unknown History insulin glargine 100 unit/mL 20 unit SUBCUT BID 09/08/23 09/08/23 Unknown History subcutaneous solution (Lantus U-100 Insulin) metformin 500 mg tablet 500 mg PO BID 09/08/23 09/08/23 Unknown History Allergies Allergy/AdvReac Type Severity Reaction Status Date / Time No Known Allergies Allergy Verified 09/08/23 15:45 Current Medications Generic Name Dose Route Start Last Admin Trade Name Freq PRN Reason Stop Dose Admin Furosemide 60 mg 09/08/23 16:00 09/08/23 15:09 Furosemide 10 Mg/Ml Sdv 10ml IVP 60 mg Q12H ESTRELLA Administration Nitroglycerin/Dextrose 50 mg in 250 mls @ 0 mls/hr 09/08/23 14:45 09/08/23 15:59 Nitroglycerin Drip IV 20 mcg/min .Q0M ESTRELLA 6 mls/hr Titration Protocol Per Protocol PFSH Acute 2 PFSH: Medical History Hypertension Diabetes Abnormal nuclear stress test Hyperglycemia Hypertensive urgency Angina at rest Diabetic neuropathy, painful Chest pain Surgical History History of surgical removal of meniscus of knee Family History Other CAD (coronary artery disease) Diabetes Social History Smoking and tobacco/nicotine status: former use of tobacco/nicotine Alcohol intake: former Substance/Drug Use: never Vitals/I&O/Wt Last Vital Signs Pulse 72 09/08/23 16:00 Resp 19 H 09/08/23 16:00 BP 144/92 09/08/23 16:00 Pulse Ox 93 09/08/23 16:00 O2 Del Method Nasal Cannula 09/08/23 13:10 09/08/23 09/08/23 09/08/23 06:59 14:59 22:59 Intake Total 3.75 / 3.75 Output Total 250 / 250 Balance -246.25 / -246.25 Weight last 48 hrs Weight 245 lb 7 oz Physical Exam 2 Narrative: GENERAL: Patient is alert, awake and oriented x3. [] NECK: No jugular vein distension. [] HEENT: No cyanosis. No icterus. No pallor. [] HEART: Regular S1 and S2. No murmur, rub or gallop. [] LUNGS: Bilate CENTRAL NERVOUS SYSTEM: Grossly nonfocal. [] EXTREMITIES: Lower extremities with 1+ edema bilaterally. Data 09/09/23 02:45 09/09/23 02:45 A&P Assessment and plan (1) CHF (congestive heart failure): (2) Hyperlipidemia: (3) NSTEMI (non-ST elevated myocardial infarction): (4) Hypertension: Plan Patient has been having chest discomfort episodes and has new onset congestive heart failure. EF has dropped significantly from 2021. Starting on nitro drip. Trend troponins. Continue IV diuresis. Close I&O's. Continue antiplatelet therapy and heparin If able to lay down flat tomorrow, we will plan for coronary angiogram. Patient understands risk of contrast-induced nephropathy as renal function is not normal. Thank you for involving us with care of this patient. we will continue to follow. Please call with questions Consult Attestations 2 Medical Necessity Statement: Care expected to cross 2 midnights. Coding Level of Care Code Acute Code for Chg Fwd Diagnoses CHF (congestive heart failure) I50.9 Hyperlipidemia E78.5 NSTEMI (non-ST elevated myocardial infarction) I21.4 Hypertension I10
--- NOTE | 2023-09-08 17:24 | ECG_ITS ---
[facility] Test Date: 2023-09-08 Pat Name: Cam Trinh Department: Room: 105 Gender: Male Photographic Processor: : 1960 Requested By: Norman Shore Order Number: [id number] Reading MD: Washington Tilley M.D. Measurements Intervals [place] Rate: 77 P: 39 WV: 143 QRS: -35 QRSD: 121 T: 131 QT: 395 QTc: 448 Interpretive Statements SINUS RHYTHM LEFT AXIS DEVIATION [QRS AXIS < -30] LEFT VENTRICULAR HYPERTROPHY AND ST-T CHANGE [VOLTAGE CRITERIA PLUS ST/T ABNORMALITY] POSSIBLE SEPTAL MYOCARDIAL INFARCTION , OF INDETERMINATE AGE [30 ms Q WAVE IN V1/V2] Compared to ECG 09/08/2023 15:54:07 Left ventricular hypertrophy now present ST (T wave) deviation now present Myocardial infarct finding still present Electronically Signed On 09-09-2023 8:16:37 CDT by Washington Tilley M.D. [id number]
[2023-09-08 17:34] LABS: Glucose Point of Care 222 mg/dL (70-110)
[2023-09-08 19:24] LABS: Partial Thromboplastin Time 50.4 SECONDS (23.9-36.7)
[2023-09-08 19:35] LABS: Troponin 5 6HR Delta 2.3 ng/L (0-12)
[2023-09-08 19:38] LABS: Troponin 5 6HR 135.3 ng/L (0-15)
[2023-09-08] MEDS: heparin drip 25,000 UNIT/500 ML PREMIX 31 UNIT IV (19:55)
[2023-09-08] MEDS: atorvastatin 40 mg Tablet PO (19:55)
--- NOTE | 2023-09-08 19:59 | PC.NURSE ---
pt arrived on the floor with heparin drip from [facility] in [facility], so this nurse started the heparin drip at [facility] at 14units/kg/hr with no loading dose since had a previous infusion going.
[2023-09-08 20:33] LABS: Glucose Point of Care 247 mg/dL (70-110)
[2023-09-09] VITALS (11 sets, daily range): BP systolic 139–178; BP diastolic 72–124; PULSE 62–91; RESP 16–23; TEMP 35.9–36.9; O2SAT 93–95
[2023-09-09 02:50] LABS: Basophils % 0.8 %; Eosinophils % 0.2 %; Lymphocytes # 1.9 10^3/uL (0.8-4.8); Lymphocytes % 35.8 %; Mean Corpuscular HGB Conc 33.2 g/dL (30-55); Mean Corpuscular Hemoglobin 27.4 pg (27-33); Mean Corpuscular Volume 82.6 fl (82-101); Mean Platelet Volume 10.1 fL (7.4-10.4); Monocytes # 0.4 10^3/uL (0.2-0.9); Monocytes % 8.3 %; Neutrophils % 54.7 %; Nucleated Red Blood Cells % 0 %; Platelet Count 238 10^3/cmm (157-399); Red Cell Distribution Width 13.4 % (12.1-15.1)
[2023-09-09] MEDS: FUROsemide 10 mg/mL SDV 10mL 60 MG IVP ×2 (02:51→16:28)
[2023-09-09 03:16] LABS: Alanine Aminotransferase 12 U/L (0-41); Albumin Level 2.6 g/dL (3.5-5.2); Alkaline Phosphatase 93 U/L (40-130); Aspartate Amino Transferase 12 U/L (0-40); Blood Urea Nitrogen 38 mg/dL (8-23); Carbon Dioxide 27 mmol/L (22-29); Chloride 103 mmol/L (98-107); Creatinine Clr Calc Pharmacy 47.0988; Globulin 3.1 g/dL (1.3-4.6); Glucose 185 mg/dL (65-115); Magnesium 2.1 mg/dL (1.7-2.3); Osmolality Calculated 304 mOsm/kg (285-295); Sodium 140 mmol/L (136-145); Total Bilirubin 0.3 mg/dL (0.15-1.2); Total Protein 5.7 g/dL (6.6-8.7)
[2023-09-09 03:22] LABS: Partial Thromboplastin Time 157.4 SECONDS (23.9-36.7)
[2023-09-09 06:15] LABS: Glucose Point of Care 152 mg/dL (70-110)
[2023-09-09 08:16] LABS: Partial Thromboplastin Time 24.8 SECONDS (23.9-36.7)
--- NOTE | 2023-09-09 08:49 | XACV_ITS ---
Exam Room: 2 Ht: 175 cm Wt: 109 kg BSA: 2.35 m2 Gender: Male : 1960 Any Known Allergies: No known allergies Exam Priority: Routine Procedure(s): Procedure Description: Diagnostic procedure Procedure Description: Left ventriculography Procedure Description: Coronary Angiography Diagnostic Cath Status: Urgent Diagnostic Findings * INDICATION: LV dysfunction/ NSTEMI. * Left Main has no significant disease. * Circumflex has mild luminal irregularities. * Right Coronary Artery has mild luminal irregularities. * Proximal Left Anterior Descending: mild 30% stenosis, DINH: 3 flow. * Coronary angiography shows right dominance. Conclusions 1. Non-obstructive coronary artery disease. 2. Non-ischemic cardiomyopathy. Recommendations * Aggressive risk factor modification. * Follow up visit with cardiology in 2-4 weeks. Interventional RX Recommendation: medical therapy and/or counseling Diagnostic RX Recommendation: medical therapy and/or counseling Anticoagulation: Heparin Pressures Phase:Rest AO : 143 / 90 ( 115 ) @ 12:20:00 PM 171 / 80 ( 115 ) @ 12:24:00 PM 171 / 80 ( 115 ) @ 12:24:00 PM LV : 174 / -3 / 18 @ 12:24:00 PM 173 / -4 / 17 @ 12:24:00 PM Valves Phase:DefaultPhase AV : 1.0 @ 11:48:48 AM 1.0 @ 11:48:48 AM AV Mean Gradient: 0.0 @ 11:48:48 AM Clinical Evaluation EBL: 5mL-10mL Procedural Details Procedure Consent Obtained. Current Diagnosis : NSTEMI. Pre-Procedure Time Out. Identified patient by full name and date of as verbalized by the patient/guarantor. Does the consent match the physician's order: Yes. Accurate & Complete Informed Consent: Yes. Inpatient/Outpatient History & Physical on Chart: Yes. If H&P is completed, is and addenduem needed: No. Visualize and Verify Site with Patient/Guarantor: N/A. Relevant Radiology Images available: Yes. The risks, benefits, and alternatives of sedation and/or procedure were discussed by physician. The patient agrees to continue. Procedure started. [facility] Clinical Fraility Score: 3: Managing Well. Printing Estimator Indications: ACS > 24 hours. Chest Pain Symptom Assessment: Typical Angina Symptoms. Cardiovascular Instability: No. Correct patient, site and procedure confirmed by cath team. PERRLA. Strong, equal hand tobacco packing machine operator bilaterally. Lungs clear x 5 lobes. IV Site on Arrival: 20 gauge in the left anticubital. IV Fluids: 0.9% NaCl at KVO. 100 mL infused prior to agricultural labor camp manager. Pre Procedural Pulses: bilateral posterior tibial was Doppled. Pre Procedural Pulses: bilateral dorsalis pedis was Doppled. Pre Procedural Pulses: bilateral radial was 3+. Oxygen started at 2liters/min via nasal canula. right groin was prepped with chloroprep then draped in the usual sterile fashion. right radial was prepped with chloroprep then draped in the usual sterile fashion. Physician notified. Baseline sample Acquired. HR: 88 BPM. Patient's family unavailable. Equipment: 6F - Radial. Cardiac Cath Pack. ACIST Manifold Kit Model BT 2000. Heparinized Saline (2 units/mL), 1000 mL bag. Physician arrived. Physician scrubbed in. Immediate Pre-Procedure Time Out. Correct Patient: Yes; Correct Procedure: Yes; Correct Site: Yes; Correct Patient Position: Yes; Correct Supplies: Yes; Dried Flammable Prep: Yes; Blood Products Available: N/A;. Lidocaine 1% infiltrated to the right radial. Arterial access obtained. A 5 qatari TIG catheter in over the exchange J wire. Multiple views taken of left coronary artery. Catheter redirected to the RCA. Multiple views taken of right coronary artery. Catheter redirected to the LV. EDP Sample taken: LV 174/-4,18; HR: 81 BPM; SpO2: 92%. Pullback taken: LV 173/-4,17; AO 171/80(115); Mean: 0mmHg, Peak to Peak: 1mmHg, SEP: 20sec/min; HR: 80 BPM; SpO2: 92%. Catheter removed over the exchange J wire. Dr Tilley scrubbed out. Nitro gtt infusing at 6mcg/min on arrival to the agricultural labor camp manager. Nitro gtt discontinued per Dr. Tilley. Vital chart was stopped. A TR Band was successful obtaining hemostatsis at the Right Radial artery insertion site. Post Procedure: Pulses reassessed and unchanged. PERRLA. Strong, equal hand tobacco packing machine operator bilaterally. No VTE prophylaxis required. Medication's Wasted: Lidocaine 1% = 8 mL. Medication's Wasted: Other = Fentanyl 75mcg. Medication's Wasted: Heparin = 1000 units. Total IV fluids: 10 mL. 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 Complications: none. Estimated blood loss: 5mL-10mL. Responsiveness - Normal response to verbal stimuli; alert and oriented, PERRLA. Airway - Unaffected, no intervention required; spontaneous ventilation. Circulation: W/N/L, pulses unchanged. Nausea/Vomiting: No. Procedure completed. Patient transferred by wheelchair to 1st floor. Access Site Site: Right Radial artery Sheath Size: 6 Fr Hemostasis Method: TR Band Hemostasis Success: Successful Procedure Medications Start: 11:15 AM Stop: 11:15 AM Medication: Versed Amount: 1 mg Route: I.V. Start: 11:15 AM Stop: 11:15 AM Medication: Fentanyl Amount: 25 mcg Route: I.V. Start: 11:17 AM Stop: 11:17 AM Medication: Nitrogylcerin Amount: 200 mcg Route: I.A. Start: 11:21 AM Stop: 11:21 AM Medication: Versed Amount: 1 mg Route: I.V. Start: 11:17 AM Stop: 11:17 AM Medication: Heparin Amount: 5000 units Route: I.V. I, the attending physician, have reviewed and verified all procedure medications. Yes, all medications given per verbal order History/Risk Factors Hypertension: Yes Dyslipidemia: Yes Peripheral Arterial Disease (PAD): No Myocardial Infarction (SD): No Obesity: Yes Renal Disease: No Tobacco Use: Former Prior Interventions PCI: No CABG: No Valve Surgery: No Report Signatures Finalized by Washington Tilley MD on 09/09/2023 11:57 AM
--- NOTE | 2023-09-09 09:00 | USCV_ITS ---
Cam Trinh Age: 63 Gender: M : 1960 Exam Date: 09/09/2023 01:32 Ordering Phys: Norman Shore MD Technologist: SHARA Exam Location: [facility] Indication: 2+ pitting edema bilateral lower extremities. HISTORY: 2+ pitting edema bilateral lower extremities. PROCEDURES: Venous duplex imaging was performed in bilateral lower extremities. The following venous structures were evaluated: common femoral vein, profunda vein, proximal portion of the greater saphenous vein, superficial femoral vein, and the popliteal vein. In addition, the posterior tibial and peroneal veins were evaluated. FINDINGS: Normal 2-D Doppler and augmentation and compressibility throughout the lower extremity venous structures. Additional imaging through the proximal calf veins also reveals no thrombus. Limited evaluation of the greater saphenous vein is patent with no thrombus. CONCLUSIONS No DVT bilateral lower extremities. Dr. Tonya Dunn DO (Electronically Signed) Final Date: 09 September 2023 07:45 S
--- NOTE | 2023-09-09 09:00 | US_ITS ---
WS: [id number] RENAL ULTRASOUND HISTORY: REGINO COMPARISON: None available. TECHNIQUE: 2-D and color Doppler imaging of the kidney submitted. Right kidney: 11.2 cm x 5.2 cm x 4.7 cm. Cortex: 1.5 cm Normal echogenicity with no hydronephrosis or mass. Left kidney: 12.3 cm x 5.4 cm x 5.1 cm. Cortex: 1.5 cm Normal echogenicity with no hydronephrosis or mass. Aorta: Normal. Urinary Bladder: Normal distention. IMPRESSION: Normal renal ultrasound.
--- NOTE | 2023-09-09 09:39 | PC.CHAP ---
Pastoral Care Encounter/Spiritual Assessment Type of Contact [] Declined cheese wrapper visit [] Patient/Family/Request visit [] Outpatient visit [] Follow-up visit [] Physician referral [] Code/Alert [x] Routine visit [] Staff referral [] Actively dying [] Patient sleeping [] Family support [] [] Out of room [] Palliative care [] [] Receiving care in room [] Pre-surgical visit [] Trauma [] Long length of stay [] ICU visit [] Other: Relational/Emotional Strength [x] Patient feels connected with others/family/visitors/staff [] Distress [] Loneliness/isolation [] Abandonment Spirituality of Patient [x] Person of Gwendolyn [] Attends Restorationism of their Gwendolyn [x] Believes in Prayer [] Reads Bible or Religion materials [] There are Spiritual issues to be addressed Transit Operator Interventions [x] Prayer [x] Active listening [] Non-anxious presence [x] Spiritual/emotional support [] Crisis/trauma care [] Spiritual counseling [] Bereavement support [] Provided bereavement packet [] Provided Bible/devotional materials [] Provided toy/stuffed animal, coloring book to patient or family member [] Provided Communion [] Anointing/[place] [] Salvation [x] Completed spiritual assessment [] Other: Impact on Illness or Injury [] Angry [] Fearful [] Anxious [] Often cries [] Exhaustion [] Unable to work [] Unable to attend anabaptism [] Unable to walk/stand [] Unable to read [] Unable to drive [] Unable to eat/drink [] Unable to sleep [] Unable to be with family [] Patient intubated [] Other: Summary Time spent with patient 5 min
--- NOTE | 2023-09-09 09:57 | PC.SOCIAL ---
IMM Update pg 2 of IMM updated and reviewed w/ patient. Patient signed. Copy dated, initialed and placed in chart.
[2023-09-09] MEDS: sodium chloride 0.9% 1,000 ML 50 ML IV (10:02)
[2023-09-09] MEDS: diphenhydrAMINE 50 mg Capsule PO (10:02)
[2023-09-09] MEDS: aspirin 325 mg Tablet PO (10:03)
[2023-09-09] MEDS: clopidogrel 75 mg Tablet PO (10:03)
--- NOTE | 2023-09-09 10:13 | PM.PN ---
Subjective Subjective: Patient doing well. Chest pain resolved. Diuresed well. Vitals/I&O/Wt Last Vital Signs Temp 97.9 F 09/09/23 07:57 Pulse 80 09/09/23 07:57 Resp 16 09/09/23 07:57 BP 172/86 09/09/23 07:57 Pulse Ox 95 09/09/23 07:57 O2 Del Method Room Air 09/09/23 07:57 O2 Flow Rate 2 09/09/23 04:00 09/08/23 09/09/23 09/09/23 22:59 06:59 14:59 Intake Total 123.75 / 123.75 235.083 / 358.833 Output Total 1000 / 1000 1375 / 2375 600 / 600 Balance -876.25 / -876.25 -1139.917 / -2016.167 -600 / -600 Weight last 48 hrs Weight 241 lb 6 oz Weight 245 lb 7 oz Physical Exam Narrative: GENERAL: Patient is alert, awake and oriented x3. [] NECK: No jugular vein distension. [] HEENT: No cyanosis. No icterus. No pallor. [] HEART: Regular S1 and S2. No murmur, rub or gallop. [] LUNGS: Diminished air entry bilaterally CENTRAL NERVOUS SYSTEM: Grossly nonfocal. [] EXTREMITIES: Lower extremities with 1+ edema bilaterally. Data 09/09/23 02:45 09/09/23 02:45 A&P Assessment and plan (1) CHF (congestive heart failure): (2) Hyperlipidemia: (3) NSTEMI (non-ST elevated myocardial infarction): (4) Hypertension: Plan Patient's chest pain has resolved. Can stop nitro. Coronary angiogram does not demonstrate severe CAD. Nonischemic cardiomyopathy. Restart metoprolol. If creatinine stays stable, can start losartan. Continue aspirin. Can stop heparin. Continue lasix for today. Monitor renal function. Can switch to PO lasix tomorrow. Thank you for involving us with care of this patient. we will continue to follow. Please call with questions Attestations Medical Necessity Statement*: Care expected to cross 2 midnights. Coding Level of Care Code Acute Code for [facility] Fwd Diagnoses CHF (congestive heart failure) I50.9 Hyperlipidemia E78.5 NSTEMI (non-ST elevated myocardial infarction) I21.4 Hypertension I10
[2023-09-09 10:39] LABS: Glucose Point of Care 156 mg/dL (70-110)
--- NOTE | 2023-09-09 11:01 | W.PM.OPSUD ---
Surgery/Procedure H&P Update DATE OF PROCEDURE: September 09, 2023 DATE H&P PERFORMED: 09/08/23 H&P UPDATE INFORMATION: I have reviewed H&P completed within last 30 days, I have examined patient prior to procedure and No changes to prior documentation PREOP DIAGNOSIS: Congestive heart failure/NSTEMI PRIMARY INDICATION FOR PROCEDURE: Congestive heart failure/NSTEMI PLANNED PROCEDURE: Left heart cath with possible percutaneous coronary intervention PATIENT REASSESSED PRIOR TO SEDATION, WITH NO CHANGE NOTED: Yes PHYSICAL EXAM: alert, oriented x 3 and regular rate & rhythm OTHER PERTINENT EXAM FINDINGS: Diminished air entry bilaterally AIRWAY EVAL/ANESTHESIA PLAN: normal airway, ASA III, Local Anesthesia, Risks, benefits & alternatives of sedation and/or procedure discussed and Patient agrees to continue as planned ADDITIONAL INFORMATION: Moderate sedation
[2023-09-09] MEDS: metoprolol tartrate 50 mg Tablet PO ×2 (12:27→20:31)
[2023-09-09] MEDS: heparin drip 25,000 UNIT/500 ML PREMIX 30.6600000000000001 UNIT IV (16:30)
[2023-09-09 17:00] LABS: Glucose Point of Care 202 mg/dL (70-110)
[2023-09-09 20:23] LABS: Glucose Point of Care 280 mg/dL (70-110)
[2023-09-09] MEDS: atorvastatin 40 mg Tablet PO (20:32)
[2023-09-09] MEDS: insulin glargine 100 units/1 mL 15 UNIT SUBCUT (20:32)
--- NOTE | 2023-09-09 21:46 | P.PN_ITS ---
Subjective 2 Subjective: He reports he is doing okay following coronary angiography. Denies chest pain, minimal residual pressure. No issues with access site at the right hand. Vitals/I&O/Wt Last Vital Signs Temp 98.4 F 09/09/23 20:00 Pulse 74 09/09/23 20:00 Resp 18 09/09/23 20:00 BP 166/91 09/09/23 20:00 Pulse Ox 94 09/09/23 20:00 O2 Del Method Room Air 09/09/23 20:00 O2 Flow Rate 2 09/09/23 04:00 09/09/23 09/09/23 09/09/23 06:59 14:59 22:59 Intake Total 235.083 / 358.833 240 / 240 240 / 480 Output Total 1375 / 2375 600 / 600 Balance -1139.917 / -2016.167 -360 / -360 240 / -120 Weight last 48 hrs Weight 109.486 kg Weight 111.329 kg Physical Exam 2 Narrative: Accompanied by family Const: COMMON NORMALS: patient oriented x3 and alert GENERAL APPEARANCE: c ooperative NUTRITIONAL APPEARANCE: obese ORIENTATION/CONSCIOUSNESS: Yes awake HENMT: COMMON NORMALS: oropharynx normal Neck/C-Spine: COMMON NORMALS: no JVD Resp: COMMON NORMALS: normal respiratory effort and clear to auscultation bilaterally AUSCULTATION: clear to auscultation bilaterally and diminished lung sounds Cardio: COMMON NORMALS: no JVD, regular rhythm, S1 normal heart sound present, S2 normal heart sound present and No murmurs present (Cardio) RHYTHM: regular rhythm HEART SOUNDS: S1 normal heart sound present and S2 normal heart sound present GI: COMMON NORMALS: Normal to inspection, nondistended, normoactive bowel sounds present, Soft to palpation and non-tender PALPATION: Yes Soft to palpation Extremity: COMMON NORMALS: no joint enlargement NARRATIVE EXTREMITY EXAM: Right hand warm, perfused, TR band right wrist. GENERAL: Yes edema (3+ BLLE) Neuro: COMMON NORMALS: patient oriented x3 and moves all extremities S ENSORIUM/ORIENTATION: Yes alert Skin: COMMON NORMALS: no rashes or lesions noted GENERAL SKIN EXAM: no rashes or lesions noted OTHER: Chronic stasis dermatitis Data 09/09/23 02:45 09/09/23 02:45 A&P Assessment and plan (1) NSTEMI (non-ST elevated myocardial infarction): Reviewed vitals, CBC, CMP, troponin series, echocardiogram. Discussed with spinal surgeon. He underwent coronary angiography today, noted nonobstructive CAD. Continues with medical management. Discussed with him with dyspnea on exertion, troponin elevation, chest tightness, recent hospitalization/immobility, bilateral lower extremity edema/stasis dermatitis, certainly abnormal D-dimer could be secondary to renal dysfunction, but PE is not ruled out. Discussed risk of CT angiogram with additional contrast dye exposure with REGINO, but due to VQ supply shortage cannot be assessed with VQ scan, discussed options consideration of empiric anticoagulation versus discontinuing anticoagulation, he and family cannot use the former until we can get a better idea. Discussed we will repeat D-dimer, reassess symptoms, monitor oxygenation, vitals, reassess renal function, consider CT angiogram when safe. Monitor on telemetry with risk of arrhythmia. (2) CHF (congestive heart failure): Reviewed vitals, electrolytes, renal function, slight improvement in renal function. Continue IV diuretic. Monitor for risk of electrolyte abnormality, kidney injury with IV diuretic. Reassess volume status. Reassess electrolytes, renal function. Acute diastolic congestive heart failure exacerbation. Now with NSTEMI. With REGINO, continue Lasix IV 60 mg every 12 hours. Monitor SHAISTA, weights. At risk of electrolyte abnormality and renal dysfunction with IV diuretics, reassess chemistry, renal function. Reviewed lower extremity duplex, negative for DVT. (3) REGINO (acute kidney injury): Reassess renal function, electrolytes, acid-base balance. Reviewed kidney ultrasound. Monitor urine output. Plan Hypoxia: Resolved. Continue treatment of CHF. Additional reassessment for possibility of PE as above. Elevated D-dimer: 1.3. As above. DM2: Monitor Accu-Cheks, sliding scale insulin. Long-acting insulin. CC diet HTN: Monitor blood pressures. Continue metoprolol. Other medical problems. Attestations 2 Medical Necessity Statement*: Continue admission for assessment of management of CHF exacerbation, assess for possible PE. Diagnoses NSTEMI (non-ST elevated myocardial infarction) I21.4 CHF (congestive heart failure) I50.9 REGINO (acute kidney injury) N17.9
[2023-09-09 23:05] LABS: Partial Thromboplastin Time 105.5 SECONDS (23.9-36.7)
[2023-09-09] MEDS: nitroglycerin 0.4 mg sublingual Tablet 0.400000000000000022 MG SUBLINGUAL ×2 (23:16→23:21)
[2023-09-10] VITALS (13 sets, daily range): BP systolic 133–178; BP diastolic 72–98; PULSE 64–79; RESP 16–24; TEMP 36.5–37; O2SAT 94–97
[2023-09-10] MEDS: nitroglycerin 0.4 mg sublingual Tablet 0.400000000000000022 MG SUBLINGUAL ×2 (01:30→01:36)
[2023-09-10] MEDS: heparin drip 25,000 UNIT/500 ML PREMIX 25 UNIT IV (01:42)
[2023-09-10] MEDS: FUROsemide 10 mg/mL SDV 10mL 60 MG IVP ×2 (04:30→16:58)
[2023-09-10 05:46] LABS: Basophils # 0.1 10^3/uL (0.0-0.1); Eosinophils % 0.2 %; Hematocrit 42.1 % (37-53); Lymphocytes # 1.9 10^3/uL (0.8-4.8); Lymphocytes % 37.6 %; Mean Corpuscular HGB Conc 32.3 g/dL (30-55); Mean Corpuscular Hemoglobin 27.2 pg (27-33); Mean Corpuscular Volume 84.2 fl (82-101); Mean Platelet Volume 10.3 fL (7.4-10.4); Monocytes # 0.4 10^3/uL (0.2-0.9); Neutrophils # 2.72 10^3/uL (1.8-7.7); Nucleated Red Blood Cells % 0 %; Platelet Count 273 10^3/cmm (157-399); Red Cell Distribution Width 13.3 % (12.1-15.1); White Blood Count 5.03 10^3/uL (3.29-11.43)
[2023-09-10 05:57] LABS: D Dimer 1.43 ug/mLFEU (0-0.59)
[2023-09-10 06:03] LABS: Partial Thromboplastin Time 108.4 SECONDS (23.9-36.7)
[2023-09-10 06:12] LABS: Alanine Aminotransferase 12 U/L (0-41); Albumin Level 2.8 g/dL (3.5-5.2); Alkaline Phosphatase 103 U/L (40-130); Anion Gap 10.7 (5-19); Aspartate Amino Transferase 14 U/L (0-40); Blood Urea Nitrogen 27 mg/dL (8-23); Calcium 8.4 mg/dL (8.5-10.5); Carbon Dioxide 27 mmol/L (22-29); Chloride 104 mmol/L (98-107); Creatinine Clr Calc Pharmacy 51.8883; Glomerular Filtration Rate 38.4 mL/min (90-130); Glucose 105 mg/dL (65-115); Magnesium 1.9 mg/dL (1.7-2.3); Osmolality Calculated 291 mOsm/kg (285-295); Potassium 3.7 mmol/L (3.5-5.1); Sodium 138 mmol/L (136-145); Total Bilirubin 0.4 mg/dL (0.15-1.2); Total Protein 5.8 g/dL (6.6-8.7)
[2023-09-10 07:06] LABS: Glucose Point of Care 111 mg/dL (70-110)
[2023-09-10] MEDS: insulin glargine 100 units/1 mL 15 UNIT SUBCUT ×2 (09:10→21:37)
[2023-09-10] MEDS: metoprolol tartrate 50 mg Tablet PO ×2 (09:10→20:56)
[2023-09-10] MEDS: aspirin 325 mg Tablet PO (09:10)
--- NOTE | 2023-09-10 09:11 | PM.PN ---
Subjective Subjective: Cardiology coverage Patient with recurrent congestive heart failure. LV ejection fraction of 35%. Normal coronary arteries by cardiac catheterization. Clinically improving. The creatinine level seems to be coming down from yesterday. He is on IV Lasix 60 mg every 12 hours. Shortness of breath is improving . The blood pressure was found to be in the 170s, systolic. He was on hydralazine at home which was held at the time of admission. No fever or chills. No cough Medications: Medication Review Details: Current Medications Acetaminophen (Acetaminophen 325 Mg Tablet) 650 mg PO Q6H PRN PRN Reason: Mild/Mod Pain Or Temp >/= 101 Al Hydrox/Mg Hydrox/Simethicone (Finm-Ztp-Htwexawrz-Talya 30 Ml Udc) 30 ml PO Q15M PRN PRN Reason: INDIGESTION Aspirin (Aspirin 325 Mg Tablet) 325 mg PO DAILY [facility] Last Admin: 09/09/23 10:03 Dose: 325 mg Atorvastatin Calcium (Atorvastatin 40 Mg Tablet) 40 mg PO BEDTIME [facility] Last Admin: 09/09/23 20:32 Dose: 40 mg Atropine Sulfate (Atropine 1 Mg/Ml Sdv 1 Ml) 0.5 mg IVP PRN PRN PRN Reason: Symptomatic bradycardia Fentanyl (Fentanyl 50 Mcg/Ml Inj 2ml) 50 mcg IVP PRN PRN PRN Reason: Prior to sheath removal Furosemide (Furosemide 10 Mg/Ml Sdv 10ml) 60 mg IVP Q12H [facility] Last Admin: 09/10/23 04:30 Dose: 60 mg Heparin Sodium (Porcine) (Heparin 5,000 Unit/Ml Inj 1 Ml) 0 unit IV PRN PRN; Protocol PRN Reason: Heparin weight-base protocol Dextrose (D5w) 500 mls @ 0 mls/hr IV ONCE PRN; Protocol PRN Reason: Adult Acute Hypoglycemia Prot Dextrose (D10w) 125 mls @ 750 mls/hr IV PRN PRN; Protocol PRN Reason: Adult Acute Hypoglycemia Nursing Protocol Dextrose (D10w) 250 mls @ 1,000 mls/hr IV PRN PRN; Protocol PRN Reason: Adult Acute Hypoglycemia Nursing Protocol Heparin Sodium/Sodium Chloride (Heparin Drip) 25,000 unit in 500 mls @ 0 mls/hr IV .Q0M [facility]; Protocol Last Titration: 09/10/23 06:11 Dose: 8.68 unit/kg/hr, 19 mls/hr Insulin Glargine (Insulin Glargine 100 Units/1 Ml) 15 unit SUBCUT Q12H [facility] Last Admin: 09/09/23 20:32 Dose: 15 unit Insulin Human Lispro (Insulin Lispro 100 Unit/1 Ml) 0 unit SUBCUT WM&BEDTIME [facility]; Protocol Last Admin: 09/10/23 08:20 Dose: Not Given Magnesium Hydroxide (Magnesium Hydroxide 30 Ml Udc) 30 ml PO DAILY PRN PRN Reason: CONSTIPATION Metoprolol Tartrate (Metoprolol Tartrate 50 Mg Tablet) 50 mg PO BID@0900,2100 [facility] Last Admin: 09/09/23 20:31 Dose: 50 mg Naloxone HCl (Naloxone 0.4 Mg/Ml Sdv) 0.1 mg IVP Q2M PRN PRN Reason: RESPIRATORY RATE < 8/MIN Nitroglycerin (Nitroglycerin 0.4 Mg Sublingual Tablet) 0.4 mg SUBLINGUAL Q5M PRN PRN Reason: CHEST PAIN Last Admin: 09/10/23 01:36 Dose: 0.4 mg Ondansetron HCl (Ondansetron 2 Mg/Ml Sdv 2 Ml) 4 mg IVP Q8H PRN PRN Reason: vomiting, or N/V if npo Temazepam (Temazepam 15 Mg Capsule) 15 mg PO BEDTIME PRN PRN Reason: INSOMNIA Vitals/I&O/Wt Last Vital Signs Temp 97.7 F 09/10/23 07:53 Pulse 69 09/10/23 07:53 Resp 24 H 09/10/23 07:53 BP 173/88 09/10/23 07:53 Pulse Ox 96 09/10/23 07:53 O2 Del Method Room Air 09/10/23 04:00 O2 Flow Rate 2 09/09/23 04:00 09/09/23 09/10/23 09/10/23 22:59 06:59 14:59 Intake Total 751.167 / 417.934 6762.326 / 2972.493 340 / 340 Output Total 350 / 950 850 / 1800 700 / 700 Balance 401.167 / 41.167 1131.326 / 1172.493 -360 / -360 Weight last 48 hrs Weight 248 lb 8 oz Weight 241 lb 6 oz Weight 245 lb 7 oz Physical Exam Narrative: GENERAL: The patient is alert and oriented times three. Not in any acute distress. HEENT: No significant pallor, icterus or lymphadenopathy.Oral cavity: There are no mucous membrane lesions. NECK: Trachea appears to be central. No masses noted. No JVD or thyromegaly appreciated. RESPIRATORY: Chest is symmetrical. No intercostals muscle retraction or any accessory muscle activation. There is no chest wall tenderness. Breath sounds are heard bilaterally. No rales or rhonchi heard. No evidence of any consolidation. BREASTS: Deferred. HEART: The heart sounds are normal. No S3 or S4. Short systolic murmur at the lower sternal border. No diastolic murmurs. No pericardial rub ABDOMEN: No vessel pulsations or distention. No tenderness. No organomegaly appreciated. Bowel sounds are normally heard. : Deferred. RECTAL: Deferred. LYMPHATIC: No lymphadenopathy noted in the neck. EXTREMITIES: 1+ edema. No clubbing. MUSCULOSKELETAL: No acute joint deformities or swelling SKIN: There are no significant rashes or ecchymosis NEUROPSYCHIATRIC: The patient is alert and oriented x3. Appears to be in a good mood. No tremors or rigidity noted. Data 09/10/23 05:33 09/10/23 05:33 Other Labs: Laboratory Last Values WBC 5.03 10^3/uL (3.29-11.43) 09/10/23 05:33 RBC 5.00 10^6/uL (3.85-5.65) 09/10/23 05:33 Hgb 13.60 g/dL (11.27-16.99) 09/10/23 05:33 Hct 42.1 % (37-53) 09/10/23 05:33 MCV 84.2 fl (82-101) 09/10/23 05:33 MCH 27.2 pg (27-33) 09/10/23 05:33 MCHC 32.3 g/dL (30-55) 09/10/23 05:33 RDW 13.3 % (12.1-15.1) 09/10/23 05:33 Plt Count 273 10^3/cmm (157-399) 09/10/23 05:33 MPV 10.3 fL (7.4-10.4) 09/10/23 05:33 Neut % (Auto) 54.0 % 09/10/23 05:33 Lymph % (Auto) 37.6 % 09/10/23 05:33 [place] % (Auto) 7.0 % 09/10/23 05:33 Eos % (Auto) 0.2 % 09/10/23 05:33 Baso % (Auto) 1.0 % 09/10/23 05:33 Neut # (Auto) 2.72 10^3/uL (1.8-7.7) 09/10/23 05:33 Lymph # (Auto) 1.9 10^3/uL (0.8-4.8) 09/10/23 05:33 [place] # (Auto) 0.4 10^3/uL (0.2-0.9) 09/10/23 05:33 Eos # (Auto) 0.0 10^3/uL (0.0-0.8) 09/10/23 05:33 Baso # (Auto) 0.1 10^3/uL (0.0-0.1) 09/10/23 05:33 Nucleated RBC % (auto) 0 % 09/10/23 05:33 Nucleated RBCs # 0.0 /100WBC 09/10/23 05:33 APTT 108.4 SECONDS (23.9-36.7) H 09/10/23 05:33 D-Dimer 1.43 ug/mLFEU (0-0.59) H 09/10/23 05:33 Sodium 138 mmol/L (136-145) 09/10/23 05:33 Potassium 3.7 mmol/L (3.5-5.1) 09/10/23 05:33 Chloride 104 mmol/L (98-107) 09/10/23 05:33 Carbon Dioxide 27 mmol/L (22-29) 09/10/23 05:33 Anion Gap 10.7 (5-19) 09/10/23 05:33 BUN 27 mg/dL (8-23) H 09/10/23 05:33 Creatinine 1.8 mg/dL (0.7-1.2) H 09/10/23 05:33 GFR Calculation 38.4 mL/min (90-130) L 09/10/23 05:33 Glucose 105 mg/dL (65-115) 09/10/23 05:33 POC Glucose 111 mg/dL (70-110) H 09/10/23 07:02 Calculated Osmolality 291 mOsm/kg (285-295) 09/10/23 05:33 Calcium 8.4 mg/dL (8.5-10.5) L 09/10/23 05:33 Magnesium 1.9 mg/dL (1.7-2.3) 09/10/23 05:33 Total Bilirubin 0.4 mg/dL (0.15-1.2) 09/10/23 05:33 AST 14 U/L (0-40) 09/10/23 05:33 ALT 12 U/L (0-41) 09/10/23 05:33 Alkaline Phosphatase 103 U/L (40-130) 09/10/23 05:33 Troponin T Baseline 133 ng/L (0-15) H* 09/08/23 12:51 Troponin T 120 Minute 133.4 ng/L (0-15) H 09/08/23 14:58 Delta Troponin T 0.4 ABS# (0-10) 09/08/23 14:58 Troponin T Hi Sens 6Hr 135.3 ng/L (0-15) H 09/08/23 18:40 Troponin T Hi Sens 6Hr Delta 2.3 ng/L (0-12) 09/08/23 18:40 Total Protein 5.8 g/dL (6.6-8.7) L 09/10/23 05:33 Albumin 2.8 g/dL (3.5-5.2) L 09/10/23 05:33 Globulin 3.0 g/dL (1.3-4.6) 09/10/23 05:33 Other data: Echocardiogram on 09/08/2023 Technically limited quality echocardiogram because of poor ultrasonic windows. LV systolic function is moderately reduced with EF of 35 to 40%. Mild mitral regurgitation Trace aortic regurgitation Pleural effusion seen. Compared to prior echocardiogram from 06/19/2022, LV systolic function has decreased significantly. A&P Assessment and plan (1) CHF (congestive heart failure): Patient may be continued on the IV diuretics for today. May be switched to p.o. tomorrow BMP in the morning Qualifiers: Heart failure type: combined systolic and diastolic Heart failure chronicity: acute on chronic Qualified Code(s): I50.43 - Acute on chronic combined systolic (congestive) and diastolic (congestive) heart failure (2) Hypertension: I may add hydralazine 25 mg p.o. 3 times a day. Also may give amlodipine 2.5 mg now and daily His blood pressure will be closely monitored. Qualifiers: Hypertension type: primary hypertension Qualified Code(s): I10 - Essential (primary) hypertension (3) Hyperlipidemia: May continue on the current medications. Qualifiers: Hyperlipidemia type: mixed hyperlipidemia Qualified Code(s): E78.2 - Mixed hyperlipidemia (4) REGINO (acute kidney injury): The kidney function is improving. (5) Nonischemic congestive cardiomyopathy: Consider starting him on Entresto, if the kidney function continues to improve Plan Possible discharge home tomorrow Attestations Medical Necessity Statement*: Patient requires continued hospital stay for close monitoring and further management Coding Level of Care Code 82574 Diagnoses Acute on chronic combined systolic and diastolic congestive heart failure I50.43 Heart failure type: combined systolic and diastolic Heart failure chronicity: acute on chronic Primary hypertension I10 Hypertension type: primary hypertension Mixed hyperlipidemia E78.2 Hyperlipidemia type: mixed hyperlipidemia REGINO (acute kidney injury) N17.9 Nonischemic congestive cardiomyopathy I42.0
[2023-09-10 12:25] LABS: Partial Thromboplastin Time 57.6 SECONDS (23.9-36.7)
[2023-09-10 13:17] LABS: Glucose Point of Care 160 mg/dL (70-110)
[2023-09-10] MEDS: amlodipine 5 mg Tablet 2.5 MG PO (14:06)
[2023-09-10] MEDS: hyDRALAzine 25 mg Tablet PO ×2 (14:07→20:56)
--- NOTE | 2023-09-10 17:25 | CTR_ITS ---
PROCEDURE INFORMATION: Exam: CTA Chest With Contrast Exam date and time: 09/10/2023 6:57 PM Age: 63 years old Clinical indication: Dyspnea; Patient HX: Chf, effusion; Additional info: Assess for pe TECHNIQUE: Imaging protocol: Computed tomographic angiography of the chest with contrast. Exam focused on the arteries. 3D rendering (Not supervised by radiologist): MIP and/or 3D reconstructed images were created by the technologist. Radiation optimization: All CT scans at this facility use at least one of these dose optimization techniques: automated exposure control; mA and/or kV adjustment per patient size (includes targeted exams where dose is matched to clinical indication); or iterative reconstruction. Contrast material: [id number]; Contrast volume: 80 ml; Contrast route: INTRAVENOUS (IV); COMPARISON: CT angio chest PE protcl [id number] 06/19/2022 8:24 PM RADIATION DOSE METRICS: Total DLP (mGy-cm): 515.11 FINDINGS: Pulmonary arteries: Evaluation of some of the peripheral subsegmental basilar branches limited by suboptimal opacification. Otherwise, no evidence of pulmonary emboli. Aorta: Unremarkable. No aortic aneurysm. No aortic dissection. Lungs: Compressive atelectasis of the bilateral lower lobes demonstrating significant loss. Interlobular septal and subtle interstitial edema in the bilateral upper lobes and perihilar lower lobes and right middle lobe. Moderate atelectasis also present in the inferomedial right upper and middle lobe in the infrahilar region and the perifissural lingula. Coarsely calcified granuloma in the left upper lobe again demonstrated. No other lung nodule identified. Pleural spaces: Large bilateral pleural effusions Heart: The heart is mildly enlarged with mild dilatation of the left ventricle and left ventricular myocardial hypertrophy , mildly increased in size from the prior study. Trace pericardial effusion has developed. Lymph nodes: Mildly enlarged right supraclavicular lymph node (series 7, image 36) is unchanged from 06/19/2022. A few borderline diameter prevascular and paratracheal mediastinal nodes some due to calcified granulomatous adenopathy are unchanged. Bones/joints: Large marginal osteophytosis of the mid to lower thoracic spine. Moderate bilateral glenohumeral arthropathy. Soft tissues: Unremarkable. CT/CT angio chest PE protcl [id number] IMPRESSION: 1. No evidence of pulmonary embolism. Limited evaluation of some of the basilar peripheral branches. 2. Mild cardiomegaly, large bilateral pleural effusions and interlobular septal thickening consistent with CHF. 3. Moderate bilateral lower lobe and other basilar compressive atelectasis.
--- NOTE | 2023-09-10 17:26 | P.PN_ITS ---
Subjective 2 Subjective: He reports he is doing okay today. No chest pain. But did have some overnight, as well as some dyspnea. Did not sleep well. Vitals/I&O/Wt Last Vital Signs Temp 98.1 F 09/10/23 16:00 Pulse 70 09/10/23 16:00 Resp 18 09/10/23 16:00 BP 156/83 09/10/23 16:00 Pulse Ox 96 09/10/23 16:00 O2 Del Method Room Air 09/10/23 16:00 O2 Flow Rate 2 09/09/23 04:00 09/10/23 09/10/23 09/10/23 06:59 14:59 22:59 Intake Total 1981.326 / 2972.493 826.983 / 826.983 222 / 1048.983 Output Total 850 / 1800 700 / 700 200 / 900 Balance 1131.326 / 1172.493 126.983 / 126.983 22 / 148.983 Weight last 48 hrs Weight 112.718 kg Weight 109.486 kg Physical Exam 2 Narrative: Accompanied by family Const: COMMON NORMALS: patient oriented x3 and alert GENERAL APPEARANCE: c ooperative NUTRITIONAL APPEARANCE: obese ORIENTATION/CONSCIOUSNESS: Yes awake HENMT: COMMON NORMALS: oropharynx normal Neck/C-Spine: COMMON NORMALS: no JVD Resp: COMMON NORMALS: normal respiratory effort and clear to auscultation bilaterally AUSCULTATION: clear to auscultation bilaterally and diminished lung sounds Cardio: COMMON NORMALS: no JVD, regular rhythm, S1 normal heart sound present, S2 normal heart sound present and No murmurs present (Cardio) RHYTHM: regular rhythm HEART SOUNDS: S1 normal heart sound present and S2 normal heart sound present GI: COMMON NORMALS: Normal to inspection, nondistended, normoactive bowel sounds present, Soft to palpation and non-tender PALPATION: Yes Soft to palpation Extremity: COMMON NORMALS: no joint enlargement NARRATIVE EXTREMITY EXAM: Right hand warm, perfused GENERAL: Yes edema (3+ BLLE) Neuro: COMMON NORMALS: patient oriented x3 and moves all extremities S ENSORIUM/ORIENTATION: Yes alert Skin: COMMON NORMALS: no rashes or lesions noted GENERAL SKIN EXAM: no rashes or lesions noted OTHER: Chronic stasis dermatitis Data 09/10/23 05:33 09/10/23 05:33 A&P Assessment and plan (1) CHF (congestive heart failure): Received Tranxene hydration following cardiac cath. Stop. Continue IV Lasix. Discussed with family fluid restriction 1500 mL/day. At home he usually drinks a lot of water 5-6 bottles of water at least plus some coffee when he comes with low drinks alone. Continue to monitor SHAISTA. Reassess renal function, electrolytes. At risk of abnormality with IV diuretic. Monitor on telemetry. Reviewed vitals, CBC, CMP, cardiology note. Discussed with with cardiology. Reviewed vitals, electrolytes, renal function, slight improvement in renal function. Continue IV diuretic. Monitor for risk of electrolyte abnormality, kidney injury with IV diuretic. Reassess volume status. Reassess electrolytes, renal function. Acute diastolic congestive heart failure exacerbation. Now with NSTEMI. With REGINO, continue Lasix IV 60 mg every 12 hours. Monitor SHAISTA, weights. At risk of electrolyte abnormality and renal dysfunction with IV diuretics, reassess chemistry, renal function. Reviewed lower extremity duplex, negative for DVT. Qualifiers: Heart failure type: combined systolic and diastolic Heart failure chronicity: acute on chronic Qualified Code(s): I50.43 - Acute on chronic combined systolic (congestive) and diastolic (congestive) heart failure (2) NSTEMI (non-ST elevated myocardial infarction): Some chest pressure earlier, did respond to nitroglycerin. Discussed possibility of microvascular disease, continue cardiovascular risk optimization, optimization of blood pressure control. Cardiology considering discharge tomorrow. Reviewed vitals, CBC, D-dimer, CMP. D-dimer with increased up to 1.43 despite improvement in renal function down to 1.8. Continues on anticoagulation. We revisited options again, consideration of CT angiogram and risk. He is agreeable to proceed. Discussed with cardiology will add small dose of Imdur as well. Monitor blood pressure. Currently considered also other causes, possibly esophageal spasm, he does state that sometimes food has difficult time traveling down and he has history of GERD, discussed referral for barium swallow study at discharge Reviewed vitals, CBC, CMP, troponin series, echocardiogram. Discussed with bindery leadperson. He underwent coronary angiography today, noted nonobstructive CAD. Continues with medical management. Discussed with him with dyspnea on exertion, troponin elevation, chest tightness, recent hospitalization/immobility, bilateral lower extremity edema/stasis dermatitis, certainly abnormal D-dimer could be secondary to renal dysfunction, but PE is not ruled out. Discussed risk of CT angiogram with additional contrast dye exposure with REGINO, but due to VQ supply shortage cannot be assessed with VQ scan, discussed options consideration of empiric anticoagulation versus discontinuing anticoagulation, he and family cannot use the former until we can get a better idea. Discussed we will repeat D-dimer, reassess symptoms, monitor oxygenation, vitals, reassess renal function, consider CT angiogram when safe. Monitor on telemetry with risk of arrhythmia. (3) REGINO (acute kidney injury): Reviewed Reassess renal function, electrolytes, acid-base balance. Reviewed kidney ultrasound. Monitor urine output. Plan Hypoxia: Resolved. Continue treatment of CHF. Additional reassessment for possibility of PE as above. Elevated D-dimer: 1.3. As above. DM2: Monitor Accu-Cheks, sliding scale insulin. Long-acting insulin. CC diet HTN: Suboptimally controlled. Continue metoprolol, amlodipine and hydralazine have been added. Add low-dose Imdur. Other medical problems. Attestations 2 Medical Necessity Statement*: Admission for assessment management following NSTEMI, CHF exacerbation, assessment for PE. and High MDM includes amount and/or complexity of data reviewed/ordered [ previous or external records, resulted lab(s)/test(s), ordered lab(s)/test(s) and other healthcare professional discussion] and described risk of complication, morbidity or mortality of management as documented Diagnoses Acute on chronic combined systolic and diastolic congestive heart failure I50.43 Heart failure type: combined systolic and diastolic Heart failure chronicity: acute on chronic NSTEMI (non-ST elevated myocardial infarction) I21.4 REGINO (acute kidney injury) N17.9
[2023-09-10 17:58] LABS: Glucose Point of Care 182 mg/dL (70-110)
[2023-09-10] MEDS: atorvastatin 40 mg Tablet PO (20:56)
[2023-09-10 21:25] LABS: Glucose Point of Care 251 mg/dL (70-110)
[2023-09-11] VITALS (59 sets, daily range): BP systolic 122–162; BP diastolic 71–89; PULSE 55–82; RESP 11–27; TEMP 36.4–36.7; O2SAT 86–98
[2023-09-11 00:59] LABS: Partial Thromboplastin Time 58.4 SECONDS (23.9-36.7)
[2023-09-11] MEDS: FUROsemide 10 mg/mL SDV 10mL 60 MG IVP ×2 (04:14→18:09)
[2023-09-11] MEDS: heparin drip 25,000 UNIT/500 ML PREMIX 19 UNIT IV (04:15)
[2023-09-11 04:37] LABS: Basophils % 0.8 %; Eosinophils % 0.2 %; Hematocrit 39.5 % (37-53); Lymphocytes # 2.3 10^3/uL (0.8-4.8); Lymphocytes % 45.4 %; Mean Corpuscular HGB Conc 32.7 g/dL (30-55); Mean Corpuscular Hemoglobin 27.3 pg (27-33); Mean Corpuscular Volume 83.5 fl (82-101); Mean Platelet Volume 10.2 fL (7.4-10.4); Monocytes # 0.5 10^3/uL (0.2-0.9); Monocytes % 10.1 %; Neutrophils # 2.15 10^3/uL (1.8-7.7); Neutrophils % 43.3 %; Nucleated Red Blood Cells % 0 %; Platelet Count 221 10^3/cmm (157-399); Red Blood Count 4.73 10^6/uL (3.85-5.65); Red Cell Distribution Width 13.3 % (12.1-15.1); White Blood Count 4.96 10^3/uL (3.29-11.43)
[2023-09-11 04:50] LABS: D Dimer 1.33 ug/mLFEU (0-0.59)
[2023-09-11 05:05] LABS: Alanine Aminotransferase 14 U/L (0-41); Albumin Level 2.4 g/dL (3.5-5.2); Alkaline Phosphatase 92 U/L (40-130); Anion Gap 12.2 (5-19); Aspartate Amino Transferase 19 U/L (0-40); Blood Urea Nitrogen 26 mg/dL (8-23); Calcium 8.5 mg/dL (8.5-10.5); Carbon Dioxide 26 mmol/L (22-29); Chloride 105 mmol/L (98-107); Creatinine Clr Calc Pharmacy 55.7644; Globulin 2.8 g/dL (1.3-4.6); Glucose 130 mg/dL (65-115); Magnesium 1.9 mg/dL (1.7-2.3); Osmolality Calculated 295 mOsm/kg (285-295); Potassium 4.2 mmol/L (3.5-5.1); Sodium 139 mmol/L (136-145); Total Bilirubin 0.3 mg/dL (0.15-1.2); Total Protein 5.2 g/dL (6.6-8.7)
[2023-09-11 06:50] LABS: Glucose Point of Care 110 mg/dL (70-110)
--- NOTE | 2023-09-11 09:47 | PM.PN ---
Subjective Subjective: Patient still has some significant dyspnea on exertion. Chest x-ray showed moderate to large bilateral pleural effusion. No fever or chills. No cough. Blood pressure stays in the 160s and 170s, systolic Medications: Medication Review Details: Current Medications Acetaminophen (Acetaminophen 325 Mg Tablet) 650 mg PO Q6H PRN PRN Reason: Mild/Mod Pain Or Temp >/= 101 Al Hydrox/Mg Hydrox/Simethicone (Eiyz-Mpa-Sqmhazyyd-Talya 30 Ml Udc) 30 ml PO Q15M PRN PRN Reason: INDIGESTION Amlodipine Besylate (Amlodipine 5 Mg Tablet) 2.5 mg PO DAILY [facility] Last Admin: 09/10/23 14:06 Dose: 2.5 mg Aspirin (Aspirin 325 Mg Tablet) 325 mg PO DAILY [facility] Last Admin: 09/10/23 09:10 Dose: 325 mg Atorvastatin Calcium (Atorvastatin 40 Mg Tablet) 40 mg PO BEDTIME [facility] Last Admin: 09/10/23 20:56 Dose: 40 mg Atropine Sulfate (Atropine 1 Mg/Ml Sdv 1 Ml) 0.5 mg IVP PRN PRN PRN Reason: Symptomatic bradycardia Fentanyl (Fentanyl 50 Mcg/Ml Inj 2ml) 50 mcg IVP PRN PRN PRN Reason: Prior to sheath removal Furosemide (Furosemide 10 Mg/Ml Sdv 10ml) 60 mg IVP Q12H [facility] Last Admin: 09/11/23 04:14 Dose: 60 mg Hydralazine HCl (Hydralazine 25 Mg Tablet) 25 mg PO TID [facility] Last Admin: 09/10/23 20:56 Dose: 25 mg Dextrose (D5w) 500 mls @ 0 mls/hr IV ONCE PRN; Protocol PRN Reason: Adult Acute Hypoglycemia Prot Dextrose (D10w) 125 mls @ 750 mls/hr IV PRN PRN; Protocol PRN Reason: Adult Acute Hypoglycemia Nursing Protocol Dextrose (D10w) 250 mls @ 1,000 mls/hr IV PRN PRN; Protocol PRN Reason: Adult Acute Hypoglycemia Nursing Protocol Insulin Glargine (Insulin Glargine 100 Units/1 Ml) 15 unit SUBCUT Q12H [facility] Last Admin: 09/10/23 21:37 Dose: 15 unit Insulin Human Lispro (Insulin Lispro 100 Unit/1 Ml) 0 unit SUBCUT WM&BEDTIME [facility]; Protocol Last Admin: 09/10/23 21:38 Dose: Not Given Isosorbide Mononitrate (Isosorbide Mononitrate Er 30 Mg Tablet) 30 mg PO DAILY [facility] Magnesium Hydroxide (Magnesium Hydroxide 30 Ml Udc) 30 ml PO DAILY PRN PRN Reason: CONSTIPATION Metoprolol Tartrate (Metoprolol Tartrate 50 Mg Tablet) 50 mg PO BID@0900,2100 [facility] Last Admin: 09/10/23 20:56 Dose: 50 mg Naloxone HCl (Naloxone 0.4 Mg/Ml Sdv) 0.1 mg IVP Q2M PRN PRN Reason: RESPIRATORY RATE < 8/MIN Nitroglycerin (Nitroglycerin 0.4 Mg Sublingual Tablet) 0.4 mg SUBLINGUAL Q5M PRN PRN Reason: CHEST PAIN Last Admin: 09/10/23 01:36 Dose: 0.4 mg Ondansetron HCl (Ondansetron 2 Mg/Ml Sdv 2 Ml) 4 mg IVP Q8H PRN PRN Reason: vomiting, or N/V if npo Temazepam (Temazepam 15 Mg Capsule) 15 mg PO BEDTIME PRN PRN Reason: INSOMNIA Vitals/I&O/Wt Last Vital Signs Temp 97.7 F 09/11/23 07:28 Pulse 69 09/11/23 07:28 Resp 16 09/11/23 07:28 BP 160/83 09/11/23 07:28 Pulse Ox 98 09/11/23 07:28 O2 Del Method Room Air 09/11/23 07:28 O2 Flow Rate 1 09/11/23 04:00 09/10/23 09/11/23 09/11/23 22:59 06:59 14:59 Intake Total 1051.516 / 1878.499 131.418 / 2009.917 240 / 240 Output Total 850 / 1550 1200 / 2750 300 / 300 Balance 201.516 / 328.499 -1068.582 / -740.083 -60 / -60 Weight last 48 hrs Weight 238 lb Weight 248 lb 8 oz Physical Exam Narrative: GENERAL: The patient is alert and oriented times three. Not in any acute distress. HEENT: No significant pallor, icterus or lymphadenopathy.Oral cavity: There are no mucous membrane lesions. NECK: Trachea appears to be central. No masses noted. No JVD or thyromegaly appreciated. RESPIRATORY: Chest is symmetrical. No intercostals muscle retraction or any accessory muscle activation. There is no chest wall tenderness. Breath sounds are heard bilaterally. Breath sounds are diminished bilaterally up to the mid chest. BREASTS: Deferred. HEART: The heart sounds are normal. No S3 or S4. Short systolic murmur in the lower sternal border. No diastolic murmurs.]. No pericardial rub ABDOMEN: No vessel pulsations or distention. No tenderness. No organomegaly appreciated. Bowel sounds are normally heard. : Deferred. RECTAL: Deferred. LYMPHATIC: No lymphadenopathy noted in the neck. EXTREMITIES: 1+ edema both lower extremities. MUSCULOSKELETAL: No acute joint deformities or swelling SKIN: There are no significant rashes or ecchymosis NEUROPSYCHIATRIC: The patient is alert and oriented x3. Appears to be in a good mood. No tremors or rigidity noted. Data 09/11/23 04:24 09/11/23 04:24 Other Labs: Laboratory Last Values WBC 4.96 10^3/uL (3.29-11.43) 09/11/23 04:24 RBC 4.73 10^6/uL (3.85-5.65) 09/11/23 04:24 Hgb 12.90 g/dL (11.27-16.99) 09/11/23 04:24 Hct 39.5 % (37-53) 09/11/23 04:24 MCV 83.5 fl (82-101) 09/11/23 04:24 MCH 27.3 pg (27-33) 09/11/23 04:24 MCHC 32.7 g/dL (30-55) 09/11/23 04:24 RDW 13.3 % (12.1-15.1) 09/11/23 04:24 Plt Count 221 10^3/cmm (157-399) 09/11/23 04:24 MPV 10.2 fL (7.4-10.4) 09/11/23 04:24 Neut % (Auto) 43.3 % 09/11/23 04:24 Lymph % (Auto) 45.4 % 09/11/23 04:24 [place] % (Auto) 10.1 % 09/11/23 04:24 Eos % (Auto) 0.2 % 09/11/23 04:24 Baso % (Auto) 0.8 % 09/11/23 04:24 Neut # (Auto) 2.15 10^3/uL (1.8-7.7) 09/11/23 04:24 Lymph # (Auto) 2.3 10^3/uL (0.8-4.8) 09/11/23 04:24 [place] # (Auto) 0.5 10^3/uL (0.2-0.9) 09/11/23 04:24 Eos # (Auto) 0.0 10^3/uL (0.0-0.8) 09/11/23 04:24 Baso # (Auto) 0.0 10^3/uL (0.0-0.1) 09/11/23 04:24 Nucleated RBC % (auto) 0 % 09/11/23 04:24 Nucleated RBCs # 0.0 /100WBC 09/11/23 04:24 APTT 46.0 SECONDS (23.9-36.7) H 09/11/23 07:24 D-Dimer 1.33 ug/mLFEU (0-0.59) H 09/11/23 04:24 Sodium 139 mmol/L (136-145) 09/11/23 04:24 Potassium 4.2 mmol/L (3.5-5.1) 09/11/23 04:24 Chloride 105 mmol/L (98-107) 09/11/23 04:24 Carbon Dioxide 26 mmol/L (22-29) 09/11/23 04:24 Anion Gap 12.2 (5-19) 09/11/23 04:24 BUN 26 mg/dL (8-23) H 09/11/23 04:24 Creatinine 1.7 mg/dL (0.7-1.2) H 09/11/23 04:24 GFR Calculation 41.0 mL/min (90-130) L 09/11/23 04:24 Glucose 130 mg/dL (65-115) H 09/11/23 04:24 POC Glucose 110 mg/dL (70-110) 09/11/23 06:45 Calculated Osmolality 295 mOsm/kg (285-295) 09/11/23 04:24 Calcium 8.5 mg/dL (8.5-10.5) 09/11/23 04:24 Magnesium 1.9 mg/dL (1.7-2.3) 09/11/23 04:24 Total Bilirubin 0.3 mg/dL (0.15-1.2) 09/11/23 04:24 AST 19 U/L (0-40) 09/11/23 04:24 ALT 14 U/L (0-41) 09/11/23 04:24 Alkaline Phosphatase 92 U/L (40-130) 09/11/23 04:24 Troponin T Baseline 133 ng/L (0-15) H* 09/08/23 12:51 Troponin T 120 Minute 133.4 ng/L (0-15) H 09/08/23 14:58 Delta Troponin T 0.4 ABS# (0-10) 09/08/23 14:58 Troponin T Hi Sens 6Hr 135.3 ng/L (0-15) H 09/08/23 18:40 Troponin T Hi Sens 6Hr Delta 2.3 ng/L (0-12) 09/08/23 18:40 Total Protein 5.2 g/dL (6.6-8.7) L 09/11/23 04:24 Albumin 2.4 g/dL (3.5-5.2) L 09/11/23 04:24 Globulin 2.8 g/dL (1.3-4.6) 09/11/23 04:24 Other data: Chest CT from yesterday 1. No evidence of pulmonary embolism. Limited evaluation of some of the basilar peripheral branches. 2. Mild cardiomegaly, large bilateral pleural effusions and interlobular septal thickening consistent with CHF. 3. Moderate bilateral lower lobe and other basilar compressive atelectasis. A&P Assessment and plan (1) CHF (congestive heart failure): May continue on the IV Lasix. Continue on the other measures Qualifiers: Heart failure type: combined systolic and diastolic Heart failure chronicity: acute on chronic Qualified Code(s): I50.43 - Acute on chronic combined systolic (congestive) and diastolic (congestive) heart failure (2) Hypertension: Increase the amlodipine to 5 mg p.o. daily Qualifiers: Hypertension type: primary hypertension Qualified Code(s): I10 - Essential (primary) hypertension (3) Hyperlipidemia: May continue on the current medications. Qualifiers: Hyperlipidemia type: mixed hyperlipidemia Qualified Code(s): E78.2 - Mixed hyperlipidemia (4) REGINO (acute kidney injury): The kidney function is improving/stable (5) Nonischemic congestive cardiomyopathy: Repeat BMP in the morning. If the BUN/creatinine is stable or improving, consider Entresto (6) Large pleural effusion: Consider therapeutic as well as diagnostic pleural tap, if there is persistent large pleural effusion. Plan Repeat chest x-ray tomorrow to decide on further management of the pleural effusion. Attestations Medical Necessity Statement*: Deferred to the primary Coding Level of Care Code 81567 Diagnoses Acute on chronic combined systolic and diastolic congestive heart failure I50.43 Heart failure type: combined systolic and diastolic Heart failure chronicity: acute on chronic Primary hypertension I10 Hypertension type: primary hypertension Mixed hyperlipidemia E78.2 Hyperlipidemia type: mixed hyperlipidemia REGINO (acute kidney injury) N17.9 Nonischemic congestive cardiomyopathy I42.0 Large pleural effusion J90
[2023-09-11] MEDS: metoprolol tartrate 50 mg Tablet PO ×2 (10:01→20:39)
[2023-09-11] MEDS: isosorbide mononitrate ER 30 mg Tablet PO (10:01)
[2023-09-11] MEDS: insulin glargine 100 units/1 mL 15 UNIT SUBCUT ×2 (10:02→20:40)
[2023-09-11] MEDS: amlodipine 5 mg Tablet 2.5 MG PO (10:02)
[2023-09-11] MEDS: hyDRALAzine 25 mg Tablet PO ×3 (10:02→20:39)
[2023-09-11] MEDS: aspirin 325 mg Tablet PO (10:02)
[2023-09-11 11:20] LABS: Glucose Point of Care 164 mg/dL (70-110)
[2023-09-11 16:23] LABS: Glucose Point of Care 164 mg/dL (70-110)
[2023-09-11] MEDS: heparin 5,000 unit/mL INJ 1 mL 5000 UNIT SUBCUT (18:08)
[2023-09-11 20:19] LABS: Glucose Point of Care 276 mg/dL (70-110)
--- NOTE | 2023-09-11 20:30 | P.PN_ITS ---
Subjective 2 Subjective: Reports he is doing well, but states that had to have oxygen placed on him overnight last night. He denies chest pain. Some dyspnea on exertion. Vitals/I&O/Wt Last Vital Signs Temp 97.6 F 09/11/23 16:00 Pulse 80 09/11/23 18:30 Resp 21 H 09/11/23 18:30 BP 122/71 09/11/23 18:30 Pulse Ox 90 09/11/23 18:30 O2 Del Method Room Air 09/11/23 16:00 O2 Flow Rate 1 09/11/23 04:00 09/11/23 09/11/23 09/11/23 06:59 14:59 22:59 Intake Total 131.418 / 2009.917 450.25 / 450.25 249.75 / 700.00 Output Total 1200 / 2750 300 / 300 500 / 800 Balance -1068.582 / -740.083 150.25 / 150.25 -250.25 / -100.00 Weight last 48 hrs Weight 107.955 kg Weight 112.718 kg Physical Exam 2 Narrative: Accompanied by family. Const: COMMON NORMALS: patient oriented x3 and alert GENERAL APPEARANCE: c ooperative NUTRITIONAL APPEARANCE: obese ORIENTATION/CONSCIOUSNESS: Yes awake HENMT: COMMON NORMALS: oropharynx normal Neck/C-Spine: COMMON NORMALS: no JVD Resp: COMMON NORMALS: normal respiratory effort and clear to auscultation bilaterally AUSCULTATION: clear to auscultation bilaterally and diminished lung sounds bilateral in the lower lung syed Cardio: COMMON NORMALS: no JVD, regular rhythm, S1 normal heart sound present, S2 normal heart sound present and No murmurs present (Cardio) RHYTHM: regular rhythm HEART SOUNDS: S1 normal heart sound present and S2 normal heart sound present GI: COMMON NORMALS: Normal to inspection, nondistended, normoactive bowel sounds present, Soft to palpation and non-tender PALPATION: Yes Soft to palpation Extremity: COMMON NORMALS: no joint enlargement NARRATIVE EXTREMITY EXAM: Right hand warm, perfused GENERAL: Yes edema (3+ BLLE) Neuro: COMMON NORMALS: patient oriented x3 and moves all extremities S ENSORIUM/ORIENTATION: Yes alert Skin: COMMON NORMALS: no rashes or lesions noted GENERAL SKIN EXAM: no rashes or lesions noted OTHER: Chronic stasis dermatitis Data 09/11/23 04:24 09/11/23 04:24 A&P Assessment and plan (1) CHF (congestive heart failure): 6 exacerbation of CHF with large bilateral pleural effusions, nocturnal hypoxia, dyspnea on exertion, persistent lower extremity edema. Reviewed vitals, intake and output, CBC, D-dimer, CMP, magnesium, CT angiogram of the chest. Discussed with him still presence of large pleural effusions. He also is still having bilateral edema largely unchanged. Discussed we would like to hold off on discharge at this time continue hospitalization to allow for better optimization of CHF exacerbation. Continue IV Lasix, discussed with him more intensive fluid restriction of 1000 mL. At risk of electrolyte deficiency, request chemistry. Monitor on telemetry due to risk of arrhythmia. Discontinued heparin drip as well. Noted -1100 mL this evening. Reassess response, volume status, renal function. Discussed with cargo broker. Qualifiers: Heart failure type: combined systolic and diastolic Heart failure chronicity: acute on chronic Qualified Code(s): I50.43 - Acute on chronic combined systolic (congestive) and diastolic (congestive) heart failure (2) NSTEMI (non-ST elevated myocardial infarction): Stop heparin drip. Some chest pressure earlier, did respond to nitroglycerin. Discussed possibility of microvascular disease, continue cardiovascular risk optimization, optimization of blood pressure control. Discharge deferred for now for additional optimization of CHF exacerbation. Started on small dose of Imdur. Monitor blood pressure. Currently considered also other causes, possibly esophageal spasm, he does state that sometimes food has difficult time traveling down and he has history of GERD, discussed referral for barium swallow study at discharge Discussed with him with dyspnea on exertion, troponin elevation, chest tightness, recent hospitalization/immobility, bilateral lower extremity edema/stasis dermatitis, certainly abnormal D-dimer could be secondary to renal dysfunction, PE ruled out. Monitor on telemetry with risk of arrhythmia. (3) REGINO (acute kidney injury): Reviewed BUN, creatinine, REGINO showing improvement. Reassess renal function, electrolytes, acid-base balance. Reviewed kidney ultrasound. Monitor urine output. Plan Hypoxia: Resolved although oxygen saturations soft, 90% on room air. Hypoxic overnight. Likely secondary bilateral large pleural effusions. CHF exacerbation. Continue treatment of CHF. No PE on CTA. Elevated D-dimer: As above. DM2: Monitor Accu-Cheks, sliding scale insulin. Long-acting insulin. CC diet HTN: Suboptimally controlled. Continue metoprolol, amlodipine and hydralazine have been added. Add low-dose Imdur. Other medical problems. Attestations 2 Medical Necessity Statement*: Continue admission for assessment management of systolic CHF exacerbation with large pleural effusions. Diagnoses Acute on chronic combined systolic and diastolic congestive heart failure I50.43 Heart failure type: combined systolic and diastolic Heart failure chronicity: acute on chronic NSTEMI (non-ST elevated myocardial infarction) I21.4 REGINO (acute kidney injury) N17.9
[2023-09-11] MEDS: atorvastatin 40 mg Tablet PO (20:39)
[2023-09-12] VITALS (62 sets, daily range): BP systolic 105–175; BP diastolic 67–102; PULSE 58–82; RESP 16–23; TEMP 36.6–36.7; O2SAT 90–100
[2023-09-12 04:58] LABS: Basophils % 0.6 %; Eosinophils % 0.2 %; Hematocrit 40.4 % (37-53); Lymphocytes # 2.1 10^3/uL (0.8-4.8); Lymphocytes % 38.7 %; Mean Corpuscular HGB Conc 33.2 g/dL (30-55); Mean Corpuscular Hemoglobin 27.7 pg (27-33); Mean Corpuscular Volume 83.5 fl (82-101); Mean Platelet Volume 10.4 fL (7.4-10.4); Monocytes # 0.4 10^3/uL (0.2-0.9); Neutrophils # 2.81 10^3/uL (1.8-7.7); Neutrophils % 52.1 %; Nucleated Red Blood Cells % 0 %; Platelet Count 268 10^3/cmm (157-399); Red Blood Count 4.84 10^6/uL (3.85-5.65); Red Cell Distribution Width 13.3 % (12.1-15.1); White Blood Count 5.38 10^3/uL (3.29-11.43)
[2023-09-12 05:11] LABS: D Dimer 1.41 ug/mLFEU (0-0.59)
[2023-09-12] MEDS: FUROsemide 10 mg/mL SDV 10mL 60 MG IVP ×2 (05:12→18:17)
[2023-09-12] MEDS: heparin 5,000 unit/mL INJ 1 mL 5000 UNIT SUBCUT ×2 (05:15→18:18)
[2023-09-12 05:22] LABS: Anion Gap 10.7 (5-19); Blood Urea Nitrogen 28 mg/dL (8-23); Calcium 8.8 mg/dL (8.5-10.5); Carbon Dioxide 29 mmol/L (22-29); Chloride 101 mmol/L (98-107); Creatinine Clr Calc Pharmacy 48.8082; Glomerular Filtration Rate 36.1 mL/min (90-130); Glucose 123 mg/dL (65-115); Osmolality Calculated 291 mOsm/kg (285-295); Potassium 3.7 mmol/L (3.5-5.1); Sodium 137 mmol/L (136-145)
[2023-09-12 06:30] LABS: Glucose Point of Care 121 mg/dL (70-110)
--- NOTE | 2023-09-12 08:33 | P.PN_ITS ---
Subjective 2 Subjective: Patient overall doing well. no chest pain. Breathing has improved Vitals/I&O/Wt Last Vital Signs Temp 97.8 F 09/12/23 04:00 Pulse 65 09/12/23 06:00 Resp 16 09/12/23 00:00 BP 175/96 09/12/23 04:00 Pulse Ox 97 09/12/23 04:00 O2 Del Method Room Air 09/12/23 04:00 O2 Flow Rate 1 09/11/23 04:00 09/11/23 09/12/23 09/12/23 22:59 06:59 14:59 Intake Total 249.75 / 700.00 Output Total 500 / 800 2500 / 3300 Balance -250.25 / -100.00 -2500 / -2600.00 Weight last 48 hrs Weight 232 lb Weight 232 lb Weight 238 lb Physical Exam 2 Narrative: GENERAL: Patient is alert, awake and oriented x3. [] NECK: No jugular vein distension. [] HEENT: No cyanosis. No icterus. No pallor. [] HEART: Regular S1 and S2. No murmur, rub or gallop. [] LUNGS: Diminished air entry bilaterally CENTRAL NERVOUS SYSTEM: Grossly nonfocal. [] EXTREMITIES: Lower extremities with 1+ edema bilaterally. Data 09/13/23 04:27 09/13/23 04:27 A&P Assessment and plan (1) CHF (congestive heart failure): Qualifiers: Heart failure type: combined systolic and diastolic Heart failure chronicity: acute on chronic Qualified Code(s): I50.43 - Acute on chronic combined systolic (congestive) and diastolic (congestive) heart failure (2) Hyperlipidemia: Qualifiers: Hyperlipidemia type: mixed hyperlipidemia Qualified Code(s): E78.2 - Mixed hyperlipidemia (3) NSTEMI (non-ST elevated myocardial infarction): (4) Hypertension: Qualifiers: Hypertension type: primary hypertension Qualified Code(s): I10 - Essential (primary) hypertension Plan Moderate sized bilateral pleural effusions. Plan for thoracentesis per primary team. May hold off. Continue IV diuresis. Close I&O's. Monitor renal function. Thank you for involving us with care of this patient. we will continue to follow. Please call with questions Attestations 2 Medical Necessity Statement*: Care expected to cross 2midnights. Coding Level of Care Code Acute Code for Chg Fwd Diagnoses Acute on chronic combined systolic and diastolic congestive heart failure I50.43 Heart failure type: combined systolic and diastolic Heart failure chronicity: acute on chronic Mixed hyperlipidemia E78.2 Hyperlipidemia type: mixed hyperlipidemia NSTEMI (non-ST elevated myocardial infarction) I21.4 Primary hypertension I10 Hypertension type: primary hypertension
[2023-09-12] MEDS: aspirin 325 mg Tablet PO (08:53)
[2023-09-12] MEDS: hyDRALAzine 25 mg Tablet PO ×3 (08:53→20:38)
[2023-09-12] MEDS: amlodipine 5 mg Tablet 2.5 MG PO (08:53)
[2023-09-12] MEDS: metoprolol tartrate 50 mg Tablet PO ×2 (08:53→20:38)
[2023-09-12] MEDS: isosorbide mononitrate ER 30 mg Tablet PO (08:53)
[2023-09-12] MEDS: insulin glargine 100 units/1 mL 15 UNIT SUBCUT ×2 (08:54→18:19)
[2023-09-12 10:03] LABS: Add Urine Microscopic? NO; Charge for UA Resulting for Rev
[2023-09-12 10:06] LABS: Iron 64 ug/dL (59-158); Percent Saturation 34.9 % (20-50); Thyroid Stimulating Hormone 6.14 uIU/mL (0.27-4.20); Total Iron Binding Capacity 183 mcg/dl; Unsaturated Iron Binding 119 ug/dL (112-347); Vitamin B12 570 pg/mL (232-1245)
[2023-09-12 10:20] LABS: Bilirubin Urine Neg (Negative); Blood Urine Neg (Negative); Glucose Urine UA 1+ (Normal); Ketones Urine Negative (Negative); Leukocyte Esterase Urine Negative (Negative); Nitrate Urine Negative (Negative); Protein Urine 3+ (Negative); Specific Gravity, Urine 1.005 (1.005-1.030); Urine Appearance Clear (CLEAR); Urine Color Light yellow (Yellow); Urobilinogen Urine Norm (Negative); pH Urine 7 (5-7)
[2023-09-12 10:38] LABS: Potassium, Radom Urine 22 mmol/L; Urine Random Chloride 107 mmol/L; Urine Random Sodium 117 mmol/L
[2023-09-12 12:24] LABS: Glucose Point of Care 212 mg/dL (70-110)
--- NOTE | 2023-09-12 14:58 | P.PN_ITS ---
Subjective 2 Subjective: Hospital course, labs appreciated. Patient laying comfortably in bed currently on room air. States he is able to sleep while laying comfortably in bed. Head of the bed elevated up to 10-20 degrees. Denies any nausea, vomiting, headache, chest pain. Has remained hemodynamically stable and afebrile. Overall states breathing is improving. Vitals/I&O/Wt Last Vital Signs Temp 97.8 F 09/12/23 08:00 Pulse 64 09/12/23 12:45 Resp 17 09/12/23 08:00 BP 154/84 09/12/23 12:45 Pulse Ox 97 09/12/23 12:45 O2 Del Method Room Air 09/12/23 04:00 O2 Flow Rate 1 09/11/23 04:00 09/11/23 09/12/23 09/12/23 22:59 06:59 14:59 Intake Total 249.75 / 700.00 360 / 360 Output Total 500 / 800 2500 / 3300 300 / 300 Balance -250.25 / -100.00 -2500 / -2600.00 60 / 60 Weight last 48 hrs Weight 105.233 kg Weight 105.233 kg Weight 107.955 kg Physical Exam 2 Const: COMMON NORMALS: patient oriented x3 and alert GENERAL APPEARANCE: c ooperative NUTRITIONAL APPEARANCE: obese ORIENTATION/CONSCIOUSNESS: Yes awake HENMT: COMMON NORMALS: oropharynx normal Neck/C-Spine: COMMON NORMALS: no JVD Resp: COMMON NORMALS: normal respiratory effort and clear to auscultation bilaterally AUSCULTATION: clear to auscultation bilaterally and diminished lung sounds bilateral in the lower lung syed Cardio: COMMON NORMALS: no JVD, regular rhythm, S1 normal heart sound present, S2 normal heart sound present and No murmurs present (Cardio) RHYTHM: regular rhythm HEART SOUNDS: S1 normal heart sound present and S2 normal heart sound present GI: COMMON NORMALS: Normal to inspection, nondistended, normoactive bowel sounds present, Soft to palpation and non-tender PALPATION: Yes Soft to palpation Extremity: COMMON NORMALS: no joint enlargement NARRATIVE EXTREMITY EXAM: Right hand warm, perfused GENERAL: Yes edema (3+ BLLE) Neuro: COMMON NORMALS: patient oriented x3 and moves all extremities S ENSORIUM/ORIENTATION: Yes alert Skin: COMMON NORMALS: no rashes or lesions noted GENERAL SKIN EXAM: no rashes or lesions noted OTHER: Chronic stasis dermatitis Data 09/12/23 04:13 09/12/23 04:13 A&P Assessment and plan (1) CHF (congestive heart failure): Acute on chronic systolic heart failure. Compensating. Echocardiogram done shows an EF of 35 to 40%, mild MR, trace AI. Seems to be improving. Continue with IV diuresis for now. Lasix 60 mg IV twice daily. Will transition over to oral Lasix in the next 24 hours. Fluid restriction up to 1500 cc. Strict input output charting. CTA done yesterday concerning for bilateral moderate pleural effusions though patient remains on room air, denies any difficulty in breathing and states he is improving on his breathing status. Remains on room air. No concerns for empyema. Will hold off on any thoracentesis for now. Qualifiers: Heart failure type: combined systolic and diastolic Heart failure chronicity: acute on chronic Qualified Code(s): I50.43 - Acute on chronic combined systolic (congestive) and diastolic (congestive) heart failure (2) NSTEMI (non-ST elevated myocardial infarction): Troponin elevated most likely in setting of demand ischemia. Underwent cardiac angiogram. Nonobstructive CAD. Check A1c, lipid panel. Continue with atorvastatin 40 mg daily, start on aspirin 81 mg daily. No active chest pain. (3) REGINO (acute kidney injury): Creatinine around 1.9. No obstructive nephropathy. Check urine lites, urinalysis, urine creatinine. Cannot rule out this to be baseline renal functions for patient now given congestive heart failure. Monitor BMP daily. Electrolytes stable. Plan Hypertension: Goal blood pressure less than 140/90 mmHg. Blood pressure slightly elevated. Continue with metoprolol 50 mg twice daily. Patient also started on amlodipine and hydralazine. For now we will hold off on amlodipine. Will uptitrate hydralazine as per goal blood pressures. DM2: Check A1c. Takes metformin 500 mg twice daily at home. Monitor Accu-Cheks, sliding scale insulin. Long-acting insulin. CC diet Full code Cardiac carb consistent diet Protonix for PUD prophylaxis Heparin 5000 every 12 hourly for DVT prophylaxis Attestations 2 Medical Necessity Statement*: Requires further hospitalization for management of congestive systolic heart failure, REGINO versus CKD in a patient with moderate bilateral pleural effusion Diagnoses Acute on chronic combined systolic and diastolic congestive heart failure I50.43 Heart failure type: combined systolic and diastolic Heart failure chronicity: acute on chronic NSTEMI (non-ST elevated myocardial infarction) I21.4 REGINO (acute kidney injury) N17.9
[2023-09-12 17:06] LABS: Glucose Point of Care 205 mg/dL (70-110)
[2023-09-12] MEDS: temazepam 15 mg Capsule PO (20:38)
[2023-09-12] MEDS: atorvastatin 40 mg Tablet PO (20:38)
[2023-09-12 20:45] LABS: Glucose Point of Care 209 mg/dL (70-110)
[2023-09-12 21:42] LABS: Free T4 Free Thyroxine 0.79 ng/dL (0.82-1.77); T3 Free 2.2 PG/ML (2.0-4.4)
[2023-09-13 01:00] VITALS: PULSE 61; RESP 16; O2SAT 97
[2023-09-13 03:22] VITALS: BP 154/97; PULSE 71; RESP 18; TEMP 36.7; O2SAT 94
[2023-09-13 04:59] VITALS: PULSE 66
[2023-09-13 05:46] LABS: Basophils # 0.1 10^3/uL (0.0-0.1); Eosinophils % 0.2 %; Hematocrit 40.5 % (37-53); Lymphocytes # 1.8 10^3/uL (0.8-4.8); Lymphocytes % 36.8 %; Mean Corpuscular HGB Conc 32.8 g/dL (30-55); Mean Corpuscular Hemoglobin 27.4 pg (27-33); Mean Corpuscular Volume 83.5 fl (82-101); Mean Platelet Volume 10.7 fL (7.4-10.4); Monocytes # 0.4 10^3/uL (0.2-0.9); Monocytes % 8.2 %; Neutrophils # 2.61 10^3/uL (1.8-7.7); Neutrophils % 53.6 %; Nucleated Red Blood Cells % 0 %; Platelet Count 248 10^3/cmm (157-399); Red Blood Count 4.85 10^6/uL (3.85-5.65); Red Cell Distribution Width 13.3 % (12.1-15.1); White Blood Count 4.87 10^3/uL (3.29-11.43)
[2023-09-13] MEDS: heparin 5,000 unit/mL INJ 1 mL 5000 UNIT SUBCUT (06:03)
[2023-09-13 06:13] LABS: Chol HDL Ratio 4.25 mg/dL (1.0-5.00); Cholesterol 153 mg/dL (0-200); HDL Cholesterol 36 mg/dL (60-100); LDL Cholesterol Calculated 86 mg/dL (50-129); Magnesium 2.1 mg/dL (1.7-2.3); Triglycerides 154 mg/dL (0-150); VLDL Cholestrol Calculation 31 mg/dL (0-30)
[2023-09-13 06:21] LABS: Alanine Aminotransferase 20 U/L (0-41); Albumin Level 2.7 g/dL (3.5-5.2); Alkaline Phosphatase 96 U/L (40-130); Anion Gap 11.5 (5-19); Aspartate Amino Transferase 23 U/L (0-40); Blood Urea Nitrogen 27 mg/dL (8-23); Calcium 8.6 mg/dL (8.5-10.5); Carbon Dioxide 29 mmol/L (22-29); Chloride 103 mmol/L (98-107); Creatinine Clr Calc Pharmacy 53.7756; Folate Level 8.8 ng/mL (4.5-32.2); Globulin 2.7 g/dL (1.3-4.6); Glucose 103 mg/dL (65-115); Osmolality Calculated 295 mOsm/kg (285-295); Potassium 3.5 mmol/L (3.5-5.1); Sodium 140 mmol/L (136-145); Total Bilirubin 0.3 mg/dL (0.15-1.2); Total Protein 5.4 g/dL (6.6-8.7)
[2023-09-13 06:53] LABS: Glucose Point of Care 117 mg/dL (70-110)
--- NOTE | 2023-09-13 07:23 | P.PN_ITS ---
Subjective 2 Subjective: patient is doing well. no chest pain. Vitals/I&O/Wt Last Vital Signs Temp 98.0 F 09/13/23 03:22 Pulse 66 09/13/23 04:59 Resp 18 09/13/23 03:22 BP 154/97 09/13/23 03:22 Pulse Ox 94 09/13/23 03:22 O2 Del Method Room Air 09/13/23 03:22 O2 Flow Rate 1 09/11/23 04:00 09/12/23 09/13/23 09/13/23 22:59 06:59 14:59 Intake Total 630 / 990 420 / 1410 Output Total 1425 / 1725 850 / 2575 Balance -795 / -735 -430 / -1165 Weight last 48 hrs Weight 231 lb 4.8 oz Weight 231 lb 4.8 oz Weight 232 lb Weight 232 lb Physical Exam 2 Narrative: GENERAL: Patient is alert, awake and oriented x3. [] NECK: No jugular vein distension. [] HEENT: No cyanosis. No icterus. No pallor. [] HEART: Regular S1 and S2. No murmur, rub or gallop. [] LUNGS: Diminished air entry bilaterally CENTRAL NERVOUS SYSTEM: Grossly nonfocal. [] EXTREMITIES: Lower extremities with 1+ edema bilaterally. Data 09/13/23 04:27 09/13/23 04:27 A&P Assessment and plan (1) CHF (congestive heart failure): Qualifiers: Heart failure type: combined systolic and diastolic Heart failure chronicity: acute on chronic Qualified Code(s): I50.43 - Acute on chronic combined systolic (congestive) and diastolic (congestive) heart failure (2) Hyperlipidemia: Qualifiers: Hyperlipidemia type: mixed hyperlipidemia Qualified Code(s): E78.2 - Mixed hyperlipidemia (3) NSTEMI (non-ST elevated myocardial infarction): (4) Hypertension: Qualifiers: Hypertension type: primary hypertension Qualified Code(s): I10 - Essential (primary) hypertension Plan Patient is overall stable. Continue current medications. Thank you for involving us with care of this patient. Please call with questions Attestations 2 Medical Necessity Statement*: Care expected to cross 2 midnights. Coding Level of Care Code Acute Code for [facility] Diagnoses Acute on chronic combined systolic and diastolic congestive heart failure I50.43 Heart failure type: combined systolic and diastolic Heart failure chronicity: acute on chronic Mixed hyperlipidemia E78.2 Hyperlipidemia type: mixed hyperlipidemia NSTEMI (non-ST elevated myocardial infarction) I21.4 Primary hypertension I10 Hypertension type: primary hypertension
[2023-09-13] MEDS: pantoprazole DR 40 mg Tablet PO (08:32)
[2023-09-13] MEDS: hyDRALAzine 25 mg Tablet PO ×2 (08:32→10:21)
[2023-09-13] MEDS: FUROsemide 10 mg/mL SDV 10mL 60 MG IVP (08:32)
[2023-09-13 08:40] LABS: Estmated Average Glucose 260; Hemoglobin A1C 10.7 % (4.0-6.0)
[2023-09-13] MEDS: insulin glargine 100 units/1 mL 15 UNIT SUBCUT (08:41)
[2023-09-13] MEDS: metoprolol tartrate 50 mg Tablet PO (08:41)
--- NOTE | 2023-09-13 08:47 | PM.DCS ---
Discharge Providers Date of Admission: 09/08/23 12:22 Date of Discharge: September 13, 2023 Attending Provider at Admission: Norman Shore Attending Provider at Discharge: Jhoan Reynolds MD Consults: Cardiology: Dr. Tilley Primary Care Provider: Nik Leahy Diagnoses at Discharge Discharge Diagnosis (1) CHF (congestive heart failure): Status: Acute Qualifiers: Heart failure chronicity: acute on chronic Heart failure type: combined systolic and diastolic Qualified Code(s): I50.43 - Acute on chronic combined systolic (congestive) and diastolic (congestive) heart failure (2) Hyperlipidemia: Status: Acute Qualifiers: Hyperlipidemia type: mixed hyperlipidemia Qualified Code(s): E78.2 - Mixed hyperlipidemia (3) NSTEMI (non-ST elevated myocardial infarction): Status: Acute (4) Hypertension: Status: Acute Qualifiers: Hypertension type: primary hypertension Qualified Code(s): I10 - Essential (primary) hypertension Reason for Visit Reason for Visit: instemi/Chf Brief History: History as per HPI: Pleasant 63-year-old gentleman with history of congestive heart failure, previously admitted from to Tuesday of this week at [facility] due to congestive heart failure exacerbation with severe lower extremity edema, was treated with diuretics with improvement in edema, at that time also sustained acute kidney injury, creatinine was as high as 2.15 with diuresis. Troponins at that time were moderately elevated with flat trend 94-92. He was discharged, return to the hospital this morning after calling EMS he was found to be hypoxic oxygen saturation 80s, complaint of chest pressure. On presentation still with lower extremity edema although better than during prior admission. Complaint chest pressure 9/10, received Nitropaste with improvement down to 3/10 overnight MSF. There was a question of possible STEMI initially, although on reassessment at [facility] had mild ST segment upward deviation and was assessed to not have STEMI. Transfer to [facility] was requested, discussed with cardiology, and he is admitted for assessment management of NSTEMI. Troponin elevated MSF was up to 121. Kidney function slightly better but still with REGINO, 2.04. Currently he is still having chest pressure 7/10. At [facility] D-dimer also reported elevated 1.33. There he received aspirin, loading dose of Plavix 600 mg, started on heparin drip in addition to the Nitropaste. He has history of coronary disease, previously also low ejection fraction back in 2020 EF 50%, on Corporate Compliance Director report in 2021 EF 60%, noted LAD stenosis 3% proximally, mid LAD 30% and 30% distal. Ramus intermedius 40% stenosis and proximal RCA 30% stenosis. He reports he was having cough at the beginning of the prior hospitalization but not currently. Denies hemoptysis. Has not been tachycardic. Hospital Course Hospital Course Patient was admitted to the hospital for further evaluation and management of non-ST elevation [place], acute kidney injury and hypoxia in setting of congestive heart failure. Cardiology was consulted. He was started on treatment as per ACS protocol with heparin drip and IV diuresis. Echocardiogram was done which showed significant decrease in the ejection fraction down to 35 to 40% with mild MR, trace AI. He eventually underwent cardiac angiogram on 09/08 which showed normal nonobstructive coronaries. Patient continued to improve with IV diuresis and his renal function remained stable. During hospitalization he did have uncontrolled hypertension for which his antihypertensives were adjusted. CTA chest was done which showed bilateral moderate pleural effusion. As patient has remained on room air with constant improvement in his symptoms it was decided against thoracentesis with advised to continue the medical treatment. He has been discharged in hemodynamically stable condition after counseling about lifestyle modification for congestive heart failure, adjusted antihypertensives with advised to follow-up with his PCP within next 1 week for repeat BMP and with cardiology on set appointment. He is to take hydralazine 50 mg 3 times a day, metoprolol 50 mg twice a day along with Jardiance 25 mg oral daily. Metformin has been stopped given his now CKD. He is to check his body weight and blood pressures daily and maintain a diary. Physical Exam Const: COMMON NORMALS: patient oriented x3 and alert GENERAL APPEARANCE: cooperative NUTRITIONAL APPEARANCE: obese ORIENTATION/CONSCIOUSNESS: Yes awake HENMT: COMMON NORMALS: oropharynx normal Neck/C-Spine: COMMON NORMALS: no JVD Resp: COMMON NORMALS: normal respiratory effort and clear to auscultation bilaterally AUSCULTATION: clear to auscultation bilaterally and diminished lung sounds bilateral in the lower lung syed Cardio: COMMON NORMALS: no JVD, regular rhythm, S1 normal heart sound present, S2 normal heart sound present and No murmurs present (Cardio) RHYTHM: regular rhythm HEART SOUNDS: S1 normal heart sound present and S2 normal heart sound present GI: COMMON NORMALS: Normal to inspection, nondistended, normoactive bowel sounds present, Soft to palpation and non-tender PALPATION: Yes Soft to palpation Extremity: COMMON NORMALS: no joint enlargement NARRATIVE EXTREMITY EXAM: Right hand warm, perfused GENERAL: Yes edema (3+ BLLE) Neuro: COMMON NORMALS: patient oriented x3 and moves all extremities SENSORIUM/ORIENTATION: Yes alert Skin: COMMON NORMALS: no rashes or lesions noted GENERAL SKIN EXAM: no rashes or lesions noted OTHER: Chronic stasis dermatitis Discharge Data Studies Completed and Pending Completed Studies During Hospitalization Category Date Time Status CTA chest [CT angio chest PE protcl [id number]] Routine Cat Scan 09/10/23 17:25 Completed [employer] request for service Routine Exams 09/09/23 08:49 Completed CV. echo complete* [id number] Routine Ultrasound 09/08/23 12:35 Completed US renal BI* [id number] Routine Ultrasound 09/09/23 09:00 Completed US venous duplex lower extremity bilat [CV venous Ultrasound 09/09/23 09:00 [place] [id number]] Routine Pending at discharge Category Date Time Status Complete Blood Count w/Auto AM LABS Lab 09/14/23 04:00 Ordered MAG [Magnesium] AM LABS Lab 09/14/23 04:00 Ordered MAG [Magnesium] AM LABS Lab 09/15/23 04:00 Ordered Radiology Impressions Chest CTA 09/10/23 17:25 IMPRESSION: 1. No evidence of pulmonary embolism. Limited evaluation of some of the basilar peripheral branches. 2. Mild cardiomegaly, large bilateral pleural effusions and interlobular septal thickening consistent with CHF. 3. Moderate bilateral lower lobe and other basilar compressive atelectasis. Echocardiogram: CONCLUSIONS Technically limited quality echocardiogram because of poor ultrasonic windows. LV systolic function is moderately reduced with EF of 35 to 40%. Mild mitral regurgitation Trace aortic regurgitation Pleural effusion seen. Compared to prior echocardiogram from 06/19/2022, LV systolic function has decreased significantly. Washington Tilley MD (Electronically Signed) Final Date: 09 September 2023 Laboratory Results WBC 4.87 10^3/uL (3.29-11.43) 09/13/23 04:27 RBC 4.85 10^6/uL (3.85-5.65) 09/13/23 04:27 Hgb 13.30 g/dL (11.27-16.99) 09/13/23 04:27 Hct 40.5 % (37-53) 09/13/23 04:27 MCV 83.5 fl (82-101) 09/13/23 04:27 MCH 27.4 pg (27-33) 09/13/23 04:27 MCHC 32.8 g/dL (30-55) 09/13/23 04:27 RDW 13.3 % (12.1-15.1) 09/13/23 04:27 Plt Count 248 10^3/cmm (157-399) 09/13/23 04:27 MPV 10.7 fL (7.4-10.4) H 09/13/23 04:27 Neut % (Auto) 53.6 % 09/13/23 04:27 Lymph % (Auto) 36.8 % 09/13/23 04:27 [place] % (Auto) 8.2 % 09/13/23 04:27 Eos % (Auto) 0.2 % 09/13/23 04:27 Baso % (Auto) 1.0 % 09/13/23 04:27 Neut # (Auto) 2.61 10^3/uL (1.8-7.7) 09/13/23 04:27 Lymph # (Auto) 1.8 10^3/uL (0.8-4.8) 09/13/23 04:27 [place] # (Auto) 0.4 10^3/uL (0.2-0.9) 09/13/23 04:27 Eos # (Auto) 0.0 10^3/uL (0.0-0.8) 09/13/23 04:27 Baso # (Auto) 0.1 10^3/uL (0.0-0.1) 09/13/23 04:27 Nucleated RBC % (auto) 0 % 09/13/23 04:27 Nucleated RBCs # 0.0 /100WBC 09/13/23 04:27 APTT 46.0 SECONDS (23.9-36.7) H 09/11/23 07:24 D-Dimer 1.41 ug/mLFEU (0-0.59) H 09/12/23 04:13 Sodium 140 mmol/L (136-145) 09/13/23 04:27 Potassium 3.5 mmol/L (3.5-5.1) 09/13/23 04:27 Chloride 103 mmol/L (98-107) 09/13/23 04:27 Carbon Dioxide 29 mmol/L (22-29) 09/13/23 04:27 Anion Gap 11.5 (5-19) 09/13/23 04:27 BUN 27 mg/dL (8-23) H 09/13/23 04:27 Creatinine 1.7 mg/dL (0.7-1.2) H 09/13/23 04:27 GFR Calculation 41.0 mL/min (90-130) L 09/13/23 04:27 Glucose 103 mg/dL (65-115) 09/13/23 04:27 POC Glucose 117 mg/dL (70-110) H 09/13/23 06:36 Estimat Average Glucose 260 09/13/23 04:27 Hemoglobin A1c 10.7 % (4.0-6.0) H 09/13/23 04:27 Calculated Osmolality 295 mOsm/kg (285-295) 09/13/23 04:27 Calcium 8.6 mg/dL (8.5-10.5) 09/13/23 04:27 Magnesium 2.1 mg/dL (1.7-2.3) 09/13/23 04:27 Iron 64 ug/dL (59-158) 09/12/23 04:13 TIBC 183 mcg/dl 09/12/23 04:13 % Saturation 34.9 % (20-50) 09/12/23 04:13 Unsat Iron Binding 119 ug/dL (112-347) 09/12/23 04:13 Total Bilirubin 0.3 mg/dL (0.15-1.2) 09/13/23 04:27 AST 23 U/L (0-40) 09/13/23 04:27 ALT 20 U/L (0-41) 09/13/23 04:27 Alkaline Phosphatase 96 U/L (40-130) 09/13/23 04:27 Troponin T Baseline 133 ng/L (0-15) H* 09/08/23 12:51 Troponin T 120 Minute 133.4 ng/L (0-15) H 09/08/23 14:58 Delta Troponin T 0.4 ABS# (0-10) 09/08/23 14:58 Troponin T Hi Sens 6Hr 135.3 ng/L (0-15) H 09/08/23 18:40 Troponin T Hi Sens 6Hr Delta 2.3 ng/L (0-12) 09/08/23 18:40 Total Protein 5.4 g/dL (6.6-8.7) L 09/13/23 04:27 Albumin 2.7 g/dL (3.5-5.2) L 09/13/23 04:27 Globulin 2.7 g/dL (1.3-4.6) 09/13/23 04:27 Triglycerides 154 mg/dL (0-150) H 09/13/23 04:27 Cholesterol 153 mg/dL (0-200) 09/13/23 04:27 LDL Cholesterol, Calc 86 mg/dL (50-129) 09/13/23 04:27 Total VLDL Cholesterol 31 mg/dL (0-30) H 09/13/23 04:27 HDL Cholesterol 36 mg/dL (60-100) L 09/13/23 04:27 Cholesterol/HDL Ratio 4.25 mg/dL (1.0-5.00) 09/13/23 04:27 Vitamin B12 570 pg/mL (232-1245) 09/12/23 04:13 Folate 8.8 ng/mL (4.5-32.2) 09/13/23 04:27 TSH 6.14 uIU/mL (0.27-4.20) H 09/12/23 04:13 Free T4 0.79 ng/dL (0.82-1.77) L 09/12/23 04:13 Free T3 2.2 PG/ML (2.0-4.4) 09/12/23 04:13 Urine Color Light yellow (Yellow) 09/12/23 09:55 Urine Appearance Clear (CLEAR) 09/12/23 09:55 Urine pH 7 (5-7) 09/12/23 09:55 Ur Specific Hannah 1.005 (1.005-1.030) 09/12/23 09:55 Urine Protein 3+ (Negative) H 09/12/23 09:55 Urine Glucose (UA) 1+ (Normal) H 09/12/23 09:55 Urine Ketones Negative (Negative) 09/12/23 09:55 Urine Blood Neg (Negative) 09/12/23 09:55 Urine Nitrate Negative (Negative) 09/12/23 09:55 Urine Bilirubin Neg (Negative) 09/12/23 09:55 Urine Urobilinogen Norm mg/dL (Negative) 09/12/23 09:55 Ur Leukocyte Esterase Negative (Negative) 09/12/23 09:55 Ur Random Sodium 117 mmol/L 09/12/23 09:55 Ur Random Potassium 22 mmol/L 09/12/23 09:55 Ur Random Chloride 107 mmol/L 09/12/23 09:55 Procedures Performed Cardiac angiogram: 09/09/2023 Diagnostic Findings * INDICATION: LV dysfunction/ NSTEMI. * Left Main has no significant disease. * Circumflex has mild luminal irregularities. * Right Coronary Artery has mild luminal irregularities. * Proximal Left Anterior Descending: mild 30% stenosis, DINH: 3 flow. * Coronary angiography shows right dominance. Conclusions 1. Non-obstructive coronary artery disease. 2. Non-ischemic cardiomyopathy. Recommendations * Aggressive risk factor modification. * Follow up visit with cardiology in 2-4 weeks. Vitals Last Vital Signs Temp 98.0 F 09/13/23 03:22 Pulse 66 09/13/23 04:59 Resp 18 09/13/23 03:22 BP 154/97 09/13/23 03:22 Pulse Ox 94 09/13/23 03:22 O2 Del Method Room Air 09/13/23 03:22 O2 Flow Rate 1 09/11/23 04:00 Discharge Plan Discharge Patient Disposition: Home Condition: Stable Prescriptions: New hydralazine 25 mg Tablet 50 mg PO TID 30 Days Qty: 180 0RF Jardiance 25 mg tablet 25 mg PO DAILY Qty: 30 0RF Lasix 40 mg tablet 40 mg PO BID Qty: 60 0RF Continued docusate sodium 100 mg capsule 100 mg PO BID Qty: 180 3RF Rx Instructions: for 14 days (rx filled 09/06/23) metoprolol tartrate 50 mg tablet 50 mg PO BID Qty: 180 3RF Patient Comments: pt. has not taken any home meds in quite a while he has been out omeprazole 40 mg capsule,delayed release(DR/EC) 40 mg PO DAILY Qty: 90 3RF Rx Instructions: Take 30 minutes apart from other medications (DME) FreeStyle Igor 14 Day Kiron Misc See Rx Instructions .Route Qty: 1 0RF Rx Instructions: As directed (DME) FreeStyle Igor 14 Day Sensor Kit See Rx Instructions .Route Qty: 1 12RF Rx Instructions: As directed aspirin 81 mg Tablet,Delayed Release (Dr/Ec) 81 mg PO DAILY Qty: 60 0RF Patient Comments: pt. has not taken any home meds in quite a while he has been out Lantus U-100 Insulin 100 unit/mL Solution 20 unit SUBCUT BID acetaminophen 500 mg Tablet 1,000 mg PO Q6H PRN (Reason: Pain) atorvastatin 20 mg tablet 40 mg PO BEDTIME duloxetine 30 mg capsule,delayed release(DR/EC) 30 mg PO QAM Discontinued metformin 500 mg Tablet 500 mg PO BID hydralazine 25 mg tablet 25 mg PO TID PRN (Reason: Blood Pressure) clopidogrel 75 mg tablet 75 mg PO QAM Discharge Orders: Discharge Order (Routine); Ordered 09/13/23 Ordered By: Jhoan Reynolds Referrals: Sandra Lee FNP [Nurse Practitioner] - 09/27/23 2:00 pm Nik Leahy FNP [Primary Care Provider] - 09/20/23 10:00 am Discharge Diet: Usual diet, Cardiac and Diabetic Discharge Activity: Resume usual activity Patient Instructions: Furosemide (By mouth) (Lasix), Hydralazine (By mouth), Empagliflozin (By mouth) (Jardiance), Heart Attack (DC), Heart Failure (DC), Coronary Angioplasty (DC), CHF Stoplight, Opioid Safety, Post Angiogram Home Care Instructions Activity Restrictions/Additional Instructions: Restrict fluid intake to less than 1500 cc, salt intake to less than 2 g daily. Advised to check his weight daily at home. Is advised that weight today would be the dry weight and if body weight increases by around 5 pounds, patient is to take an extra dose of Lasix daily till body weight comes down to weight today. If not able to come down to dry body weight in 1 week, then is to call cardiology office for further recommendations. Patient was counseled in detail to take medications regularly as prescribed. Please follow-up with a primary care provider within next 1 week for a repeat BMP. Discharge Attestations Time Spent in Discharge Care*: greater than 30 min Specific Discharge Activities: educating patient, discussing with pcp/other providers, discussing with bilingual patient support caseworker/social workers/dc planners, documenting/other paperwork and evaluating patient/reviewing data Status at Discharge: Cognitive status at discharge: cognitively intact, Behavioral status at discharge: cooperative, Functional status at discharge: independent ambulation, Overall status at discharge: patient is progressing back to baseline Quality Metrics Clinical Quality Measures [ No reported AMI, CVA or VTE this stay] Coding Level of Care Code 60370 Total time (in minutes) for Discharge: 60 Diagnoses Acute on chronic combined systolic and diastolic congestive heart failure I50.43 Heart failure chronicity: acute on chronic Heart failure type: combined systolic and diastolic Mixed hyperlipidemia E78.2 Hyperlipidemia type: mixed hyperlipidemia NSTEMI (non-ST elevated myocardial infarction) I21.4 Primary hypertension I10 Hypertension type: primary hypertension
[2023-09-13 08:55] VITALS: BP 172/88; PULSE 86; O2SAT 97
--- NOTE | 2023-09-13 09:05 | PC.NURSE ---
discharge order acknowledge order-hold discharge for attending , hospitalist has not rounded on the pt yet this morning. case cathy naidu RN informed.
--- NOTE | 2023-09-13 11:25 | PC.NURSE ---
pt is in the shower
[2023-09-13 11:58] VITALS: BP 162/90; PULSE 69; TEMP 36.5; O2SAT 98
[2023-09-13 12:00] VITALS: PULSE 74
[2023-09-13 12:13] LABS: Glucose Point of Care 146 mg/dL (70-110)
--- NOTE | 2023-09-13 14:43 | PC.NURSE ---
Discharge Note Patient discharged to home via private vehicle accompanied by sister. Discharge instructions reviewed with patient and/or quality control representative. DIscharge packet booklet for heart failure. Provided and discuss to pt a chf bag-in it are weighing scale to weigh himself, med tool and production planner, pen and magnet to hang the chf zones form to remind him. Mobile pharmacy medications and/or prescriptions provided. Belongings/home medications returned-bag,phone,mastercam programmer.
== END 2023-09-13 14:30 | disposition home or self-care (01) | DRG 280 ==
PROVIDERS: Internal Medicine; Admitting Provider Internal Medicine; PCP Nurse Practitioner Family; Visit Provider Student in an Organized Health Care Education/Training Program
DX: I21.4 Non-ST elevation (NSTEMI) myocardial infarction (principal); I50.43 Acute on chronic combined systolic (congestive) and diastolic (congestive) heart failure; N17.9 Acute kidney failure, unspecified; I42.8 Other cardiomyopathies; I11.0 Hypertensive heart disease with heart failure; E11.9 Type 2 diabetes mellitus without complications; Z79.4 Long term (current) use of insulin; Z79.84 Long term (current) use of oral hypoglycemic drugs; Z79.82 Long term (current) use of aspirin; Z79.02 Long term (current) use of antithrombotics/antiplatelets; Z87.891 Personal history of nicotine dependence; E78.5 Hyperlipidemia, unspecified; I25.10 Atherosclerotic heart disease of native coronary artery without angina pectoris; R79.1 Abnormal coagulation profile; K21.9 Gastro-esophageal reflux disease without esophagitis
CPT/HCPCS: 36415; 36416; 71275; 76770; 76857; 80048; 80053; 80061; 81003; 82436; 82607; 82746; 82962; 83036; 83540; 83550; 83735; 84133; 84300; 84439; 84443; 84481; 84484; 85025; 85049; 85378; 85730; 93005; 93306; 93458; 93970; 96372; 96375; 96376; 99152; 99153; C1769; C1887; C1894; J1644; J1815; J1940; J2250; J3010; J3490; J7030; Q0163; Q9967

== ENCOUNTER → 2023-09-28 13:53 | Outpatient (BNVA) | payer MEDICARE, SELFPAY | PROVIDERS: PCP Nurse Practitioner Family; Visit Provider Nurse Practitioner Family | DX: I42.8 Other cardiomyopathies (principal); Z87.891 Personal history of nicotine dependence | CPT/HCPCS: 99213 ==

== ENCOUNTER 2024-06-29 18:54 | Inpatient (IN) | payer MEDICARE, SELFPAY ==
[2024-06-29] VITALS (13 sets, daily range): BP systolic 116–162; BP diastolic 69–106; PULSE 101–110; RESP 16–38; TEMP 36.2–36.7; O2SAT 93–100; BMI 33.2; BMI 34.3
--- NOTE | 2024-06-29 18:59 | ECG_ITS ---
[facility] 2024-06-29 Pat Name: Cam Trinh Department: Room: Gender: Male Noodle Maker: : 1960 Requested By: Vicky Collins Order Number: [id number] Gavi MD: Jeffry Pugh M.D. Measurements Intervals [place] Rate: 110 P: 19 DE: 111 QRS: -38 QRSD: 133 T: 95 QT: 372 QTc: 504 Interpretive Statements SINUS TACHYCARDIA WITH SHORT DE INTERVAL LEFT AXIS DEVIATION [QRS AXIS < -30] INTRAVENTRICULAR CONDUCTION DELAY [130+ ms QRS DURATION] SEPTAL MYOCARDIAL INFARCTION , PROBABLY RECENT [40+ ms Q WAVE IN V1/V2] ACUTE TN Compared to ECG 09/08/2023 17:24:39 Short DE interval now present Intraventricular conduction delay now present Sinus rhythm no longer present Left ventricular hypertrophy no longer present ST (T wave) deviation no longer present Myocardial infarct finding still present Electronically Signed On 06-29-2024 21:38:51 PRODUCT/INDUSTRY CONSULTANT by Jeffry Pugh M.D. [email or web address]
--- NOTE | 2024-06-29 18:59 | XRR_ITS ---
PROCEDURE INFORMATION: Exam: XR Chest Exam date and time: 06/29/2024 9:57 PM Age: 64 years old Clinical indication: Pain; Chest pressure; Prior surgery; Surgery date: Post-operative (0-2 days); Surgery type: Cardiac stents; Additional info: Chest pain TECHNIQUE: Imaging protocol: Radiologic exam of the chest. Views: 1 view. COMPARISON: CT angio chest PE protcl [id number] 09/10/2023 6:57 PM FINDINGS: Lungs: Left lung pulmonary granuloma. Perihilar fullness may reflect hilar lymphadenopathy versus congestive changes. Atelectasis and/or infiltrates adjacent to the lung bases. Pleural spaces: Bilateral moderate pleural effusions. No sizable pneumothorax. Heart/Mediastinum: Mild cardiomegaly. Bones/joints: Unremarkable. XR/XR chest 1V portable [id number] IMPRESSION: As above.
--- NOTE | 2024-06-29 18:59 | XACV_ITS ---
Exam Room: [facility] Ht: 175 cm Wt: 102 kg BSA: 2.26 m2 Gender: Male : 1960 Any Known Allergies: No known allergies Exam Priority: Routine Indication(s): - Acute anterior wall [place] Procedure(s): Procedure Description: Diagnostic procedure Procedure Description: PCI procedure Procedure Description: Left Heart Catheterization Procedure Description: Drug Eluting Coronary Stent Procedure Description: PTCA Procedure Description: Miscellaneous Procedure Description: ACT Procedure Description: Coronary Angiography Diagnostic Cath Status: Emergency Diagnostic Findings * Left Main has no significant disease. * Circumflex has no significant disease. * Proximal Left Anterior Descending: severe 90-95% stenosis, DINH:2 flow. Distal vessel has moderate diffuse disease. * Mid Right Coronary Artery: moderate 50-60% stenosis, DINH: 3 flow. * Coronary angiography shows right dominance. PCI Status: Emergency PCI Indication: Immediate PCI for STEMI Interventional Findings * Procedure detail: We engaged left main artery with XB 3.5 guide catheter. IV heparin was administered to maintain anticoagulation. 0.014 run-through guidewire was used to cross the stenosis and was placed in distal LAD. We predilated the stenosis with 2.5 x 12 mm semicompliant balloon. This was followed by placement of 2.75 x 30 mm resolute [place] drug-eluting stent. An overlapping proximal LAD stent was placed measuring 3.0 x 18 mm. We postdilated the stents with 3.0 x 20 mm NC balloon. At this time final angiogram was performed that showed excellent stent expansion, no residual stenosis and DINH-3 flow. Guidewire and guide catheter were removed. Patient left the Head Waiter in a stable condition.. * Proximal Left Anterior Descendin% stenosis treated with a AB TREK 2.50X12 RX BALLOON, MDT R RUTH 2.75X30 JUAN, MDT R RUTH 3.0X18 JUAN, and MDEmily HERNANDEZ EUPHORA RX 3.88U45YV BALLOON. 0% residual stenosis, DINH: 3 flow. Conclusions 1. Critical proximal LAD stenosis s/p PCI with 2 stents. 2. Moderate mid RCA stenosis. Will need outpatient stress test to assess ischemia and further revascularization. 3. Proximal Left Anterior Descending was treated with a Balloon, Drug Eluting Stent, Drug Eluting Stent, and Balloon. Recommendations * Dual antiplatelet therapy with aspirin and plavix for atleast 1 year. * High intensity statin therapy. * Transfer to ICU. * Outpatient stress test for assessing ischemia in RCA territory. Interventional RX Recommendation: PCI w/o planned CABG Diagnostic RX Recommendation: PCI w/o planned CABG Anticoagulation: Heparin Pressures Phase:Rest AO : 113 / 83 ( 97 ) @ 10:35:29 AM 106 / 75 ( 89 ) @ 10:35:29 AM 77 / 53 ( 62 ) @ 10:35:29 AM 89 / 49 ( 62 ) @ 10:35:29 AM 89 / 49 ( 61 ) @ 10:35:29 AM 92 / 48 ( 63 ) @ 10:35:29 AM LV : 98 / 7 / 20 @ 10:35:29 AM 99 / 8 / 21 @ 10:35:29 AM Valves Phase:DefaultPhase AV : 10.0 @ 4:35:29 PM AV Mean Gradient: 12.0 @ 4:35:29 PM Clinical Evaluation EBL: 5mL-10mL Procedural Details Pre-Procedure Time Out. Identified patient by full name and date of as verbalized by the patient/guarantor. Does the consent match the physician's order: N/A Emergent. Accurate & Complete Informed Consent: N/A Emergent; Informed Consent not obtained due to time critical life threat. Inpatient/Outpatient History & Physical on Chart: N/A Emergent; Informed Consent not obtained due to time critical life threat. If H&P is completed, is and addenduem needed: N/A Emergent; Informed Consent not obtained due to time critical life threat; If yes, is the addendum complete: N/A. Visualize and Verify Site with Patient/Guarantor: N/A. Relevant Radiology Images available: N/A Emergent; Informed Consent not obtained due to time critical life threat. Pre-op teaching completed and patient verbalized understanding. The risks, benefits, and alternatives of sedation and/or procedure were discussed by physician. The patient agrees to continue. Procedure started. [facility] Clinical Fraility Score: 6: Moderately Frail. Head Waiter Indications: ACS <= 24 hours. Chest Pain Symptom Assessment: Typical Angina Symptoms. Cardiovascular Instability: Yes, if yes, Persistant Ischemic Symptoms. Correct patient, site and procedure confirmed by cath team. Current diagnosis: STEMI. PERRLA. Strong, equal hand cdl company flatbed driver bilaterally. Lungs clear x 5 lobes. IV Site on Arrival: 20 gauge in the left anticubital. IV Site on Arrival: 18 gauge in the right anticubital. IV Fluids: 0.9% NaCl at KVO. 0 mL infused prior to labor employment associate. Oxygen started at Bipap managed by RT. bilateral groins was prepped with chloroprep then draped in the usual sterile fashion. Physician notified. Baseline sample Acquired. HR: 97 BPM. Patient's family unavailable. Equipment: 6F - Femoral. Cardiac Cath Pack. ACIST Manifold Kit Model BT 2000. Heparinized Saline (2 units/mL), 1000 mL bag. Kit, Micropuncture. Physician arrived. Physician scrubbed in. Immediate Pre-Procedure Time Out. Correct Patient: N/A Emergent; Informed Consent not obtained due to time critical life threat; Correct Procedure: N/A Emergent; Informed Consent not obtained due to time critical life threat; Correct Site: N/A Emergent; Informed Consent not obtained due to time critical life threat; Correct Patient Position: N/A Emergent; Informed Consent not obtained due to time critical life threat; Correct Supplies: N/A Emergent; Informed Consent not obtained due to time critical life threat; Dried Flammable Prep: N/A Emergent; Informed Consent not obtained due to time critical life threat; Blood Products Available: N/A Emergent; Informed Consent not obtained due to time critical life threat;. Lidocaine 1% infiltrated to the right groin. Arterial access obtained with micropuncture set. 6 trinidadian XB 3.5 guide catheter was inserted over the wire. Cine of the LCA performed. Runthrough guidewire was advanced through the guide catheter to lesion in the prox LAD. Inflation number : 1 A AB TREK 2.50X12 RX BALLOON was prepped and advanced across the Prox LAD , then inflated to 8 JOSÉ MIGUEL for 0:11 seconds. Inflation number: 2 The AB TREK 2.50X12 RX BALLOON was reinflated across the Prox LAD, to 8 JOSÉ MIGUEL for 0:09 seconds. Balloon out. Inflation Number : 3 A MDT R RUTH 2.75X30 JUAN -Lot Number# [id number] was prepped and advanced across the Prox LAD. The stent was deployed at 12 JOSÉ MIGUEL for 0:16 seconds. Exp. . Stent balloon out over wire. Results checked. Inflation Number : 4 A MDT R RUTH 3.0X18 JUAN -Lot Number# [id number] was prepped and advanced across the Prox LAD. The stent was deployed at 12 JOSÉ MIGUEL for 0:25 seconds. Exp. . Inflation number : 5 A MDT NC EUPHORA RX 3.19R32FD BALLOON was prepped and advanced across the Prox LAD , then inflated to 12 JOSÉ MIGUEL for 0:10 seconds. Inflation number: 6 The MDT NC EUPHORA RX 3.03B13KT BALLOON was reinflated across the Prox LAD, to 16 JOSÉ MIGUEL for 0:15 seconds. Balloon out. PCI Indication : Immediate PCI for STEMI. Results checked. Wire out. ACT drawn. Results Out of range hi. Will redraw. Guide catheter out. A 5 trinidadian JR4 catheter in over the standard J wire. Multiple views taken of right coronary artery. Catheter redirected to the LV. EDP Sample taken: LV 98/7,20; HR: 84 BPM; SpO2: 98%. Pullback taken: LV 99/8,21; AO 89/49(62); Mean: 12mmHg, Peak to Peak: 10mmHg, SEP: 9sec/min; HR: 80 BPM; SpO2: 98%. Catheter removed over the standard J wire. Lab called to picker packer blood work. Stated, I don't know where anyone is . Will have ICU notify once to the unit. A Right femoral angiogram was performed to determine safe placement of closure device. A Angio-Seal VIP ([employer]) was successful obtaining hemostatsis at the Right Femoral artery insertion site. Lot # [id number]. Exp. . Angioseal placed without complications. No signs or symptoms of hematoma noted. Sterile dressing applied per usual sterile fashion. Post Procedure: Pulses reassessed and unchanged. PERRLA. Strong, equal hand cdl company flatbed driver bilaterally. No VTE prophylaxis required. ACT drawn. Results 240 seconds. Therapeutic limits - pre-heparin administration 90-150 seconds and monitoring heparin during a vascular procedure >250 seconds. Medication's Wasted: Nitro = 49.8 mg. Medication's Wasted: Heparin = 3000 units. Medication's Wasted: Other = Versed 1 mg. Medication's Wasted: Other = Fentanyl 50 mcg. Total IV fluids: 50 mL. PCI Indication: STEMI. Post-op diagnosis: PCI of the Prox LAD with 2 JUAN. Complications: none. Estimated blood loss: 5mL-10mL. Responsiveness - Normal response to verbal stimuli; alert and oriented, PERRLA. Airway - Unaffected, no intervention required; spontaneous ventilation. Circulation: W/N/L, pulses unchanged. Nausea/Vomiting: No. Procedure completed. Patient transferred by bed to ICU. Vital chart was stopped. Access Site Site: Right Femoral artery Sheath Size: 6 Fr Hemostasis Method: Angio-Seal VIP ([employer]) Hemostasis Success: Successful Procedure Medications Start: 7:21 PM Stop: 7:21 PM Medication: Versed Amount: 1 mg Route: I.V. Start: 7:21 PM Stop: 7:21 PM Medication: Fentanyl Amount: 50 mcg Route: I.V. Start: 7:27 PM Stop: 7:27 PM Medication: Heparin Amount: 6000 units Route: I.V. Start: 7:31 PM Stop: 7:31 PM Medication: Zofran (ondansetron) Amount: 4 mg Route: I.V. Start: 7:44 PM Stop: 7:44 PM Medication: Nitrogylcerin Amount: 200 mcg Route: I.C. Start: 7:48 PM Stop: 7:48 PM Medication: Neosynephrine Amount: 100 mcg Route: I.V. Start: 7:53 PM Stop: 7:53 PM Medication: Neosynephrine Amount: 100 mcg Route: I.V. Start: 8:02 PM Stop: 8:02 PM Medication: Heparin Amount: 2000 units Route: I.V. I, the attending physician, have reviewed and verified all procedure medications. Yes, all medications given per verbal order Report Signatures Finalized by Washington Tilley MD on 07/06/2024 11:06 AM
--- NOTE | 2024-06-29 19:01 | ED_ITS ---
HPI - Chest Pain 2 General: Chief Complaint: Chest Pain Stated Complaint: STEMI Time Seen by Provider: 06/29/24 18:56 History of Present Illness: 64-year-old man with a history of pleura l effusions, hypertension, diabetes, obesity, diabetic neuropathy, and he reports congestive heart failure with no coronary disease or stents who presents the emergency room by ambulance with chest pain. EKG was sent prior to arrival and there was concern for STEMI. This was given to Dr. Pugh who saw the patient initially in the emergency room and given the patient's symptoms recommends cardiac catheterization. However his O2 sats are a bit low on presentation. He is tachypneic. Related Data Home Medications Medication Instructions Recorded Confirmed acetaminophen 500 mg tablet 1,000 mg PO Q6H PRN Pain 09/08/23 11/08/23 amlodipine 5 mg tablet 5 mg PO DAILY 11/08/23 11/08/23 Previous Rx's Medication Instructions Recorded aspirin 81 mg tablet,delayed 81 mg PO DAILY #60 tabs 06/22/22 release flash glucose scanning reader #1 ea 09/07/23 (FreeStyle Igor 14 Day [place]) flash glucose sensor (FreeStyle #1 ea 09/07/23 Igor 14 Day Sensor kit) empagliflozin 25 mg tablet 25 mg PO DAILY #30 tabs 09/13/23 (Jardiance) hydralazine 50 mg tablet 50 mg PO TID #90 tabs 09/28/23 tramadol 50 mg tablet 50 mg PO TID PRN pain #30 tabs 10/05/23 mupirocin 2 % topical ointment 1 applic topical BID 7 days #22 10/12/23 grams metoprolol tartrate 50 mg tablet 50 mg PO BID #180 tabs 11/07/23 celecoxib 100 mg capsule (Celebrex) 100 mg PO BID #60 caps 11/08/23 clopidogrel 75 mg tablet 75 mg PO DAILY #90 tabs 11/08/23 docusate sodium 100 mg capsule 100 mg PO BID #180 caps 11/08/23 duloxetine 30 mg capsule,delayed 30 mg PO QAM #90 caps 11/08/23 release furosemide 40 mg tablet (Lasix) 40 mg PO DAILY #90 tabs 11/08/23 insulin glargine 100 unit/mL (3 20 unit (0.2 mL) SUBCUT BID #15 mL 11/08/23 mL) subcutaneous pen (Lantus Solostar U-100 Insulin) metformin 500 mg tablet 500 mg PO BID #180 tabs 11/08/23 omeprazole 40 mg capsule,delayed 40 mg PO DAILY #90 caps 11/08/23 release potassium chloride 20 mEq 20 meq PO DAILY #90 tabs 11/08/23 tablet,extended release atorvastatin 20 mg tablet 20 mg PO BEDTIME #90 tabs 02/24/24 Allergies Allergy/AdvReac Type Severity Reaction Status Date / Time No Known Allergies Allergy Verified 11/08/23 09:21 Review of Systems 2 Narrative: Constitutional symptoms: Negative except as documented in HPI. Skin symptoms: Negative except as documented in HPI. Eye symptoms: Negative except as documented in HPI. ENMT symptoms: Negative except as documented in HPI. Respiratory symptoms: Negative except as documented in HPI. Cardiovascular symptoms: Negative except as documented in HPI. Gastrointestinal symptoms: Negative except as documented in HPI. Genitourinary symptoms: Negative except as documented in HPI. Musculoskeletal symptoms: Negative except as documented in HPI. Neurologic symptoms: Negative except as documented in HPI. Psychiatric symptoms: Negative except as documented in HPI. Endocrine symptoms: Negative except as documented in HPI. PFSH ED 2 PFSH: Medical History Rib pain on right side Large pleural effusion Hypertension Diabetes Abnormal nuclear stress test Hyperglycemia Hypertensive urgency Angina at rest Diabetic neuropathy, painful Chest pain Surgical History History of surgical removal of meniscus of knee Family History Other CAD (coronary artery disease) Diabetes Social History Smoking and tobacco/nicotine status: former use of tobacco/nicotine Alcohol intake: former Substance/Drug Use: never Physical Exam 2 Narrative: EXAM NARRATIVE: General: Alert, no acute distress. Skin: Warm, dry. Head: Normocephalic, atraumatic. Neck: Supple, trachea midline. Eye: Extraocular movements are intact. Ears, nose, mouth and throat: mucosa moist. Cardiovascular: Regular, Normal peripheral perfusion. Edema with venous stasis changes Respiratory: Lungs are clear to auscultation, respirations are non-labored, breath sounds are equal, Symmetrical chest wall expansion. Gastrointestinal: Soft, Nontender, Non distended Musculoskeletal: Normal ROM, no deformity. Neurological: Alert and oriented, No focal neurological deficit observed. Psychiatric: Cooperative, appropriate mood & affect. Course 2 Vital Signs: Vital signs: Vital Signs Temperature 98.1 F 06/29/24 18:56 Pulse Rate 110 H 06/29/24 18:56 Respiratory Rate 18 06/29/24 18:56 Blood Pressure 148/97 06/29/24 18:56 Pulse Oximetry 93 06/29/24 18:56 Oxygen Delivery Me thod Nasal Cannula 06/29/24 18:56 Oxygen Flow Rate 6 06/29/24 18:56 Fraction of Inspir ed Oxygen 60 06/29/24 19:18 MDM - Chest Pain Medical Decision Making Differential diagnosis for patient with chest pain includes but is not limited to and based on the above HPI, review of systems and physical exam: Pneumonia. unstable angina. angina. Acute coronary syndrome / [place]. Pulmonary embolism. Costochondritis / musculoskeletal. Pleurisy. Pericarditis. Esophageal spasm. Pancreatis. Cholecystitis. Orders placed to evaluate differential diagnosis based on the above differential, HPI and physical exam EKG: Time 1855. Rate 110. Sinus tachycardia. sinus rhythm, ST elevation septal with reciprocal depression, no ectopy, normal [place] & QRS intervals, this was reviewed and interpreted by myself the emergency room physician. Discussed with senior portfolio manager foundation engineer Lab Review: Laboratory results were reviewed and interpreted by myself the emergency room physician. No leukocytosis. No anemia. Initial troponin is elevated at 180. Other lab work has not available at this time. I reviewed the patient's medical record. Consultation: Dr. Tilley was consulted for possible STEMI. Patient was taken to the Ethics Instructor given his symptoms. Assessment and plan: Chest pain STEMI Acute on chronic hypoxemic respiratory failure -I discussed the patient with the hospitalist on-call who is admitting the patient. - Discussed findings and plan with patient. Answered any questions. - All laboratory values were reviewed and interpreted personally by myself, the ER physician - All imaging was reviewed and interpreted personally by myself, the ER physician. - Evaluation and treatment of this problem were appropriate in the emergency setting Lab Data 06/29/24 19:00 06/29/24 19:00 Laboratory Results WBC 9.60 10^3/uL (3.29-11.43) 06/29/24 19:00 RBC 3.97 10^6/uL (3.85-5.65) 06/29/24 19:00 Hgb 10.80 g/dL (11.27-16.99) L 06/29/24 19:00 Hct 34.3 % (37-53) L 06/29/24 19:00 MCV 86.4 fl (82-101) 06/29/24 19:00 MCH 27.2 pg (27-33) 06/29/24 19:00 MCHC 31.5 g/dL (30-55) 06/29/24 19:00 RDW 16.8 % (12.1-15.1) H 06/29/24 19:00 Plt Count 347 10^3/cmm (157-399) 06/29/24 19:00 MPV 10.5 fL (7.4-10.4) H 06/29/24 19:00 Neut % (Auto) 83.4 % 06/29/24 19:00 Lymph % (Auto) 10.7 % 06/29/24 19:00 [place] % (Auto) 4.8 % 06/29/24 19:00 Eos % (Auto) 0.1 % 06/29/24 19:00 Baso % (Auto) 0.6 % 06/29/24 19:00 Neut # (Auto) 8.00 10^3/uL (1.8-7.7) H 06/29/24 19:00 Lymph # (Auto) 1.0 10^3/uL (0.8-4.8) 06/29/24 19:00 [place] # (Auto) 0.5 10^3/uL (0.2-0.9) 06/29/24 19:00 Eos # (Auto) 0.0 10^3/uL (0.0-0.8) 06/29/24 19:00 Baso # (Auto) 0.1 10^3/uL (0.0-0.1) 06/29/24 19:00 Nucleated RBC % (auto) 0 % 06/29/24 19:00 Nucleated RBCs # 0.0 /100WBC 06/29/24 19:00 PT Cancelled 06/29/24 19:00 INR Cancelled 06/29/24 19:00 APTT Cancelled 06/29/24 19:00 Sodium Cancelled 06/29/24 19:00 Potassium Cancelled 06/29/24 19:00 Chloride Cancelled 06/29/24 19:00 Carbon Dioxide Cancelled 06/29/24 19:00 Anion Gap Cancelled 06/29/24 19:00 BUN Cancelled 06/29/24 19:00 Creatinine Cancelled 06/29/24 19:00 GFR Calculation Cancelled 06/29/24 19:00 Glucose Cancelled 06/29/24 19:00 Calculated Osmolality Cancelled 06/29/24 19:00 Lactic Acid 2.2 mmol/L (0.5-2.2) 06/29/24 19:00 Calcium Cancelled 06/29/24 19:00 Total Bilirubin Cancelled 06/29/24 19:00 AST Cancelled 06/29/24 19:00 ALT Cancelled 06/29/24 19:00 Alkaline Phosphatase Cancelled 06/29/24 19:00 Troponin T Baseline 180 ng/L (0-15) H* 06/29/24 19:00 NT-Pro-B Natriuret Pep Cancelled 06/29/24 19:00 Total Protein Cancelled 06/29/24 19:00 Albumin Cancelled 06/29/24 19:00 Globulin Cancelled 06/29/24 19:00 No radiology studies performed this visit Discharge Plan Discharge Patient Disposition: Admitted As Inpatient Admit Provider: Washington Tilley Clinical Impression: Non-STEMI (non-ST elevated myocardial infarction) Condition: Stable Coding Level of Care Code ED 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
[2024-06-29] MEDS: heparin 5,000 unit/mL INJ 1 mL 4000 UNIT IVP (19:06)
[2024-06-29] MEDS: clopidogrel 300 mg Tablet 600 MG PO (19:06)
[2024-06-29] MEDS: FUROsemide 10 mg/mL SDV 4mL 40 MG IVP (19:07)
--- NOTE | 2024-06-29 19:11 | P.HP_ITS ---
Providers/Chief Complaint 2 Admitting Physician: Washington Tilley MD/ Cardiology Primary Care Provider: Ezio Leahy Chief Complaint: STEMI History of Present Illness Cam Trinh is a 64 year old male past medical history of nonischemic cardiomyopathy, diabetes, noncompliance who was brought by EMS with few hours of chest discomfort and shortness of breath. Was found to be hypoxic. EKG was concerning for borderline ST depressions in V1 through V4. STEMI alert was called. Patient emergently going for coronary angiogram with possible PCI. Review of Systems 2 Card: Reports: chest pain, edema and orthopnea Resp: Reports: dyspnea Medications/Allergies Home Medications Medication Instructions Recorded Confirmed Last Taken Type aspirin 81 mg tablet,delayed 81 mg PO DAILY #60 tabs 06/22/22 11/08/23 Unknown Rx release flash glucose scanning reader #1 ea 09/07/23 11/08/23 Unknown Rx (FreeStyle Igor 14 Day [place]) flash glucose sensor (FreeStyle #1 ea 09/07/23 11/08/23 Unknown Rx Igor 14 Day Sensor kit) acetaminophen 500 mg tablet 1,000 mg PO Q6H PRN Pain 09/08/23 11/08/23 Unknown History empagliflozin 25 mg tablet 25 mg PO DAILY #30 tabs 09/13/23 10/12/23 Unknown Rx (Jardiance) hydralazine 50 mg tablet 50 mg PO TID #90 tabs 09/28/23 11/08/23 Unknown Rx tramadol 50 mg tablet 50 mg PO TID PRN pain #30 tabs 10/05/23 11/08/23 Unknown Rx mupirocin 2 % topical ointment 1 applic topical BID 7 days #22 10/12/23 11/08/23 Unknown Rx grams metoprolol tartrate 50 mg tablet 50 mg PO BID #180 tabs 11/07/23 11/08/23 Unknown Rx amlodipine 5 mg tablet 5 mg PO DAILY 11/08/23 11/08/23 Unknown History celecoxib 100 mg capsule (Celebrex) 100 mg PO BID #60 caps 11/08/23 11/08/23 Unknown Rx clopidogrel 75 mg tablet 75 mg PO DAILY #90 tabs 11/08/23 11/08/23 Unknown Rx docusate sodium 100 mg capsule 100 mg PO BID #180 caps 05/14/24 05/14/24 Unknown Rx duloxetine 30 mg capsule,delayed 30 mg PO QAM #90 caps 11/08/23 11/08/23 Unknown Rx release furosemide 40 mg tablet (Lasix) 40 mg PO DAILY #90 tabs 11/08/23 11/08/23 Unknown Rx insulin glargine 100 unit/mL (3 20 unit (0.2 mL) SUBCUT BID #15 mL 11/08/23 11/08/23 Unknown Rx mL) subcutaneous pen (Lantus Solostar U-100 Insulin) metformin 500 mg tablet 500 mg PO BID #180 tabs 11/08/23 11/08/23 Unknown Rx omeprazole 40 mg capsule,delayed 40 mg PO DAILY #90 caps 11/08/23 11/08/23 Unknown Rx release potassium chloride 20 mEq 20 meq PO DAILY #90 tabs 11/08/23 11/08/23 Unknown Rx tablet,extended release atorvastatin 20 mg tablet 20 mg PO BEDTIME #90 tabs 02/24/24 Unknown Rx Allergies Allergy/AdvReac Type Severity Reaction Status Date / Time No Known Allergies Allergy Verified 11/08/23 09:21 PFSH Acute 2 PFSH: Medical History Rib pain on right side Large pleural effusion Hypertension Diabetes Abnormal nuclear stress test Hyperglycemia Hypertensive urgency Angina at rest Diabetic neuropathy, painful Chest pain Surgical History History of surgical removal of meniscus of knee Family History Other CAD (coronary artery disease) Diabetes Social History Smoking and tobacco/nicotine status: former use of tobacco/nicotine Alcohol intake: former Substance/Drug Use: never Vitals/I&O/Wt Last Vital Signs Temp 98.1 F 06/29/24 18:56 Pulse 110 H 06/29/24 18:56 Resp 18 06/29/24 18:56 BP 148/97 06/29/24 18:56 Pulse Ox 93 06/29/24 18:56 O2 Del Method Nasal Cannula 06/29/24 18:56 O2 Flow Rate 6 06/29/24 18:56 Weight last 48 hrs Weight 225 lb Physical Exam 2 Narrative: GENERAL: Patient is alert, awake and oriented x3. [] NECK: No jugular vein distension. [] HEENT: No cyanosis. No icterus. No pallor. [] HEART: Tachycardia LUNGS: Bilateral crackles CENTRAL NERVOUS SYSTEM: Grossly nonfocal. [] EXTREMITIES: Lower extremities with 2+ edema bilaterally. Data 06/29/24 19:00 06/29/24 19:00 A&P Assessment and plan (1) STEMI (ST elevation myocardial infarction): (2) Hypertension: Qualifiers: Hypertension type: primary hypertension Qualified Code(s): I10 - Essential (primary) hypertension (3) Hyperlipidemia: Qualifiers: Hyperlipidemia type: mixed hyperlipidemia Qualified Code(s): E78.2 - Mixed hyperlipidemia (4) Acute on chronic congestive heart failure: (5) Diabetes type 2 with atherosclerosis of arteries of extremities: Plan Patient is presented with acute anterior wall ST elevation AK and of flash pulmonary edema. He has been loaded with aspirin, Plavix and heparin bolus given. IV Lasix administered. We will put patient on BiPAP. Patient going for emergent coronary angiogram with possible PCI. Will need ICU stay. We will order echocardiogram. Will consult hospitalist team to assist with management of diabetes and medical issues. Attestations 2 Medical Necessity Statement*: Care expected to cross 2 midnights. Patient has presented with ST elevation AK and going for emergent coronary angiogram. Coding Level of Care Code Acute Code for [facility] Fwd Diagnoses STEMI (ST elevation myocardial infarction) I21.3 Primary hypertension I10 Hypertension type: primary hypertension Mixed hyperlipidemia E78.2 Hyperlipidemia type: mixed hyperlipidemia Acute on chronic congestive heart failure I50.9 Diabetes type 2 with atherosclerosis of arteries of extremities E11.51; I70.209
[2024-06-29 19:13] LABS: Basophils # 0.1 10^3/uL (0.0-0.1); Basophils % 0.6 %; Eosinophils % 0.1 %; Hematocrit 34.3 % (37-53); Lymphocytes % 10.7 %; Mean Corpuscular HGB Conc 31.5 g/dL (30-55); Mean Corpuscular Hemoglobin 27.2 pg (27-33); Mean Corpuscular Volume 86.4 fl (82-101); Mean Platelet Volume 10.5 fL (7.4-10.4); Monocytes # 0.5 10^3/uL (0.2-0.9); Monocytes % 4.8 %; Neutrophils % 83.4 %; Nucleated Red Blood Cells % 0 %; Platelet Count 347 10^3/cmm (157-399); Red Blood Count 3.97 10^6/uL (3.85-5.65); Red Cell Distribution Width 16.8 % (12.1-15.1)
[2024-06-29 19:33] LABS: Troponin(5th) Baseline 180 ng/L (0-15)
[2024-06-29 19:35] LABS: Lactic Sepsis W/Reflex 2.2 mmol/L (0.5-2.2)
--- NOTE | 2024-06-29 20:23 | ECG_ITS ---
[employer] Test Date: 2024-06-29 Pat Name: Cam Trinh Department: Room: [facility] Gender: Male Bar Manager: : 1960 Requested By: Vicky Collins Order Number: [id number] Gavi MD: Jeffry Pugh M.D. Measurements Intervals [place] Rate: 87 P: 8 [place]: 128 QRS: -55 QRSD: 122 T: 92 QT: 395 QTc: 475 Interpretive Statements SINUS RHYTHM LEFT AXIS DEVIATION [QRS AXIS < -30] POSSIBLE RIGHT VENTRICULAR CONDUCTION DELAY [RSR (QR) IN V1/V2] SEPTAL MYOCARDIAL INFARCTION , PROBABLY RECENT [40+ ms Q WAVE IN V1/V2] ACUTE [place] Compared to ECG 06/29/2024 18:55:21 Sinus tachycardia no longer present Short [place] interval no longer present Intraventricular conduction delay no longer present Myocardial infarct finding still present Electronically Signed On 06-30-2024 21:38:40 TRANSMISSION WORKER by Jeffry Pugh M.D. [id number]
--- NOTE | 2024-06-29 20:26 | XACV_ITS ---
Exam Room: [facility] Ht: 175 cm Wt: 102 kg BSA: 2.26 m2 Gender: Male : 1960 Any Known Allergies: No known allergies Exam Priority: Routine Procedure(s): Procedure Description: Diagnostic procedure Procedure Description: Coronary Angiography Diagnostic Cath Status: Urgent Diagnostic Findings * Left Main has no significant disease. * Left Anterior Descending has patent proximal vessel stents. * Circumflex has no significant disease. * Mid Right Coronary Artery: moderate 50-60% stenosis, DINH: 3 flow. * INDICATION: Patient presented with STEMI and underwent successful revascularization of proximal LAD with 2 stents. On arrival to ICU, patient again started having chest discomfort and had persistent ST elevations. Patient was brought emergently back to the [facility] for rechecking recently placed stents and coronary vasculature. * Coronary angiography shows right dominance. Conclusions 1. Patent recently placed proximal LAD stents. Moderate mid RCA stenosis. Recommendations * Transfer back to ICU. * Continued medical therapy. Interventional RX Recommendation: medical therapy and/or counseling Diagnostic RX Recommendation: medical therapy and/or counseling Pressures Phase:Rest AO : 118 / 79 ( 98 ) @ 6:56:31 AM Clinical Evaluation EBL: 5mL-10mL Procedural Details Pre-Procedure Time Out. Identified patient by full name and date of as verbalized by the patient/guarantor. Does the consent match the physician's order: N/A Emergent; Informed Consent not obtained due to time critical life threat. Accurate & Complete Informed Consent: N/A Emergent; Informed Consent not obtained due to time critical life threat. Inpatient/Outpatient History & Physical on Chart: N/A Emergent; Informed Consent not obtained due to time critical life threat. If H&P is completed, is and addenduem needed: N/A Emergent; Informed Consent not obtained due to time critical life threat; If yes, is the addendum complete: N/A Emergent; Informed Consent not obtained due to time critical life threat. Visualize and Verify Site with Patient/Guarantor: N/A. Relevant Radiology Images available: N/A Emergent; Informed Consent not obtained due to time critical life threat. Pre-op teaching completed and patient verbalized understanding. The risks, benefits, and alternatives of sedation and/or procedure were discussed by physician. The patient agrees to continue. Procedure started. [facility] Clinical Fraility Score: 5: Mildly Frail. [facility] Indications: Other: Chest pain/unstable angina. Chest Pain Symptom Assessment: Typical Angina Symptoms. Cardiovascular Instability: Yes, if yes, Persistant Ischemic Symptoms. Correct patient, site and procedure confirmed by cath team. Current diagnosis: Unstable angina. PERRLA. Strong, equal hand sand shoveler bilaterally. Lungs clear x 5 lobes. IV Site on Arrival: 20 gauge in the left anticubital. IV Site on Arrival: 18 gauge in the right anticubital. IV Fluids: 0.9% NaCl at KVO. 900 mL infused prior to systems testing laboratory technician. Pre Procedural Pulses: bilateral dorsalis pedis was Doppled. Pre Procedural Pulses: bilateral posterior tibial was Doppled. Oxygen started at Bipap on and managed by RT. left groin was prepped with chloroprep then draped in the usual sterile fashion. right radial was prepped with chloroprep then draped in the usual sterile fashion. Physician notified. Baseline sample Acquired. HR: 107 BPM. Patient's family unavailable. Equipment: 6F - Radial. Cardiac Cath Pack. [employer]IST Manifold Kit Model BT 2000. Heparinized Saline (2 units/mL), 1000 mL bag. Physician arrived. Physician scrubbed in. Immediate Pre-Procedure Time Out. Correct Patient: N/A Emergent; Correct Procedure: N/A Emergent; Correct Site: N/A Emergent; Correct Patient Position: N/A Emergent; Correct Supplies: N/A Emergent; Dried Flammable Prep: N/A Emergent; Blood Products Available: N/A Emergent;. Lidocaine 1% infiltrated to the right radial. Arterial access obtained with ultrasound guidance. A 5 ghanaian TIG catheter in over the exchange J wire. Blood drawn and sent to lab. Multiple views taken of left coronary artery. Catheter redirected to the RCA. Multiple views taken of right coronary artery. Catheter removed over the exchange J wire. Dr. Tilley scrubbed out. A TR Band was successful obtaining hemostatsis at the Right Radial artery insertion site. Post Procedure: Pulses reassessed and unchanged. PERRLA. Strong, equal hand sand shoveler bilaterally. No VTE prophylaxis required. Medication's Wasted: Lidocaine 1% = 18 mL. Medication's Wasted: Nitro = 49.8 mg. Medication's Wasted: Heparin = 1000 units. Medication's Wasted: Other = Versed 2 mg. Medication's Wasted: Other = Fentanyl 50 mcg. Total IV fluids: 20 mL. Post-op diagnosis: Patent recent stents. Complications: none. Estimated blood loss: 5mL-10mL. Estimated blood loss: 5mL-10mL. Airway - Unaffected, no intervention required; spontaneous ventilation. Responsiveness - Normal response to verbal stimuli; alert and oriented, PERRLA. Circulation: W/N/L, pulses unchanged. Nausea/Vomiting: No. Procedure completed. Patient transferred by bed to ICU. Vital chart was stopped. Access Site Site: Right Radial artery Sheath Size: 6 Fr Hemostasis Method: TR Band Hemostasis Success: Successful Procedure Medications Start: 8:39 PM Stop: 8:39 PM Medication: Zofran (ondansetron) Amount: 4 mg Route: I.V. Start: 8:51 PM Stop: 8:51 PM Medication: Fentanyl Amount: 50 mcg Route: I.V. Start: 8:49 PM Stop: 8:49 PM Medication: Nitrogylcerin Amount: 200 mcg Route: I.A. I, the attending physician, have reviewed and verified all procedure medications. Yes, all medications given per verbal order Report Signatures Finalized by Washington Tilley MD on 07/06/2024 11:12 AM
[2024-06-29 20:54] LABS: Reflex Lactate Order REFLEX LACTIC ORDERD
--- NOTE | 2024-06-29 21:03 | PM.PROC ---
Procedure Note: Date of procedure: 06/29/24 Pre-procedure diagnosis: STEMI Post-procedure diagnosis: other (Critical proximal LAD stenosis s/p successful revascularization with 2 stents) Procedure: Left heart cath/PCI: Critical proximal LAD stenosis s/p successful revascularization with 2 stents. Mid RCA has 60-70% stenosis. Dual antiplatelet therapy with aspirin and plavix High intensity statin therapy Transfer to ICU Patient requiring BiPAP Performing Provider: Washington Tilley Estimated blood loss (mL): 10 Complications: None Condition: critical Disposition: ICU Coding Level of Care Code Acute Code for [employer]
--- NOTE | 2024-06-29 21:06 | PM.MISC ---
Miscellaneous Note Purpose of Documentation: Brief event note Note: Once patient was brought back to ICU, he started complaining of chest discomfort. EKG showed ST elevations in anterior/anterolateral leads. He was brought back emergently for repeat coronary angiogram. Repeat coronary angiography showed patent prior stents and no new change.
--- NOTE | 2024-06-29 21:14 | P.CONIM_ITS ---
Providers/Reason For Consult 2 Consulting Physician/Specialty*: Hospitalist Reason for Consult*: Post cath management Attending Physician: Washington Tilley M.D Primary Care Provider: Ezio Leahy History of Present Illness History of Present Illness Cam Trinh is a 64 year old male with history of diabetes, cardiomyopathy, presenting with chest pain he was diagnosed with STEMI STEMI alert was called patient went for coronary angiogram with Dr. Tilley, got 2 stents in LAD, aspirin as he arrived in the ICU started complaining of chest pain with concerning EKG changes, patient was taken back to the [facility], his stents were patent with good flow, his chest discomfort is like related to pulm edema he has received Lasix, Hansen catheter requested. Patient on BiPAP to help with work of breathing. Has been taken off Levophed. Review of Systems 2 Const: Denies: fever(s) Eyes: Denies: change in vision ENMT: Denies: throat pain Card: Reports: chest pain Resp: Reports: dyspnea Medications/Allergies Home Medications Medication Instructions Recorded Confirmed Last Taken Type aspirin 81 mg tablet,delayed 81 mg PO DAILY #60 tabs 06/22/22 11/08/23 Unknown Rx release flash glucose scanning reader #1 ea 09/07/23 11/08/23 Unknown Rx (FreeStyle Igor 14 Day [place]) flash glucose sensor (FreeStyle #1 ea 09/07/23 11/08/23 Unknown Rx Igor 14 Day Sensor kit) acetaminophen 500 mg tablet 1,000 mg PO Q6H PRN Pain 09/08/23 11/08/23 Unknown History empagliflozin 25 mg tablet 25 mg PO DAILY #30 tabs 09/13/23 10/12/23 Unknown Rx (Jardiance) hydralazine 50 mg tablet 50 mg PO TID #90 tabs 09/28/23 11/08/23 Unknown Rx tramadol 50 mg tablet 50 mg PO TID PRN pain #30 tabs 10/05/23 11/08/23 Unknown Rx mupirocin 2 % topical ointment 1 applic topical BID 7 days #22 10/12/23 11/08/23 Unknown Rx grams metoprolol tartrate 50 mg tablet 50 mg PO BID #180 tabs 11/07/23 11/08/23 Unknown Rx amlodipine 5 mg tablet 5 mg PO DAILY 11/08/23 11/08/23 Unknown History celecoxib 100 mg capsule (Celebrex) 100 mg PO BID #60 caps 11/08/23 11/08/23 Unknown Rx clopidogrel 75 mg tablet 75 mg PO DAILY #90 tabs 11/08/23 11/08/23 Unknown Rx docusate sodium 100 mg capsule 100 mg PO BID #180 caps 11/08/23 11/08/23 Unknown Rx duloxetine 30 mg capsule,delayed 30 mg PO QAM #90 caps 11/08/23 11/08/23 Unknown Rx release furosemide 40 mg tablet (Lasix) 40 mg PO DAILY #90 tabs 11/08/23 11/08/23 Unknown Rx insulin glargine 100 unit/mL (3 20 unit (0.2 mL) SUBCUT BID #15 mL 11/08/23 11/08/23 Unknown Rx mL) subcutaneous pen (Lantus Solostar U-100 Insulin) metformin 500 mg tablet 500 mg PO BID #180 tabs 11/08/23 11/08/23 Unknown Rx omeprazole 40 mg capsule,delayed 40 mg PO DAILY #90 caps 11/08/23 11/08/23 Unknown Rx release potassium chloride 20 mEq 20 meq PO DAILY #90 tabs 11/08/23 11/08/23 Unknown Rx tablet,extended release atorvastatin 20 mg tablet 20 mg PO BEDTIME #90 tabs 02/24/24 Unknown Rx Allergies Allergy/AdvReac Type Severity Reaction Status Date / Time No Known Allergies Allergy Verified 11/08/23 09:21 PFSH Acute 2 PFSH: Medical History Rib pain on right side Large pleural effusion Hypertension Diabetes Abnormal nuclear stress test Hyperglycemia Hypertensive urgency Angina at rest Diabetic neuropathy, painful Chest pain Surgical History History of surgical removal of meniscus of knee Family History Other CAD (coronary artery disease) Diabetes Social History Smoking and tobacco/nicotine status: former use of tobacco/nicotine Alcohol intake: former Substance/Drug Use: never Vitals/I&O/Wt Last Vital Signs Temp 98.1 F 06/29/24 18:56 Pulse 110 H 06/29/24 18:56 Resp 18 06/29/24 18:56 BP 148/97 06/29/24 18:56 Pulse Ox 93 06/29/24 18:56 O2 Del Method Nasal Cannula 06/29/24 18:56 O2 Flow Rate 6 06/29/24 18:56 FiO2 60 06/29/24 19:18 Weight last 48 hrs Weight 102.058 kg Physical Exam 2 Narrative: Patient has an active sign of fluid overload Currently no active chest pain He was on 4 L nasal cannula using abdominal muscles to breathe On awakening he is not complaining of chest pain or respiratory distress Awake and alert S1, S2 tachycardia Blood pressure 116/60 mmHg Lower extremity 2+ edema Data 06/29/24 19:00 06/29/24 20:56 A&P Assessment and plan (1) CHF (congestive heart failure): Qualifiers: Heart failure chronicity: acute on chronic Heart failure type: combined systolic and diastolic Qualified Code(s): I50.43 - Acute on chronic combined systolic (congestive) and diastolic (congestive) heart failure (2) Poor compliance: (3) Acute on chronic congestive heart failure: (4) STEMI (ST elevation myocardial infarction): (5) Hyperlipidemia: Qualifiers: Hyperlipidemia type: mixed hyperlipidemia Qualified Code(s): E78.2 - Mixed hyperlipidemia (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: (7) REGINO (acute kidney injury): (8) Sciatica: (9) Neuropathy, diabetic: Plan STEMI Status post LAD 2 stents Continue dual antiplatelet therapy along statins Patient has been weaned off Levophed Echo report to be followed Acute systolic CHF exacerbation Currently on IV diuretic regimen along BiPAP Hansen catheter refused by the patient, stating that he would like to use urinal Type II diabetic with complications related to neuropathy Continue insulin sliding scale Cardiac consistent carb diet Pulm edema: I have requested BiPAP overnight patient is agreeable DVT prophylaxis: Heparin Will follow along cardiology Full code Consult Attestations 2 Medical Necessity Statement: As per cardiology Diagnoses Acute on chronic combined systolic and diastolic congestive heart failure I50.43 Heart failure chronicity: acute on chronic Heart failure type: combined systolic and diastolic Poor compliance Z91.199 Acute on chronic congestive heart failure I50.9 STEMI (ST elevation myocardial infarction) I21.3 Mixed hyperlipidemia E78.2 Hyperlipidemia type: mixed hyperlipidemia 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
[2024-06-29 21:27] LABS: INR 1.09 (0.8-1.2)
[2024-06-29 21:39] LABS: Alanine Aminotransferase 13 U/L (0-41); Albumin Level 2.7 g/dL (3.5-5.2); Alkaline Phosphatase 130 U/L (40-130); Anion Gap 17.3 (5-19); Aspartate Amino Transferase 41 U/L (0-40); Blood Urea Nitrogen 58 mg/dL (8-23); Calcium 7.8 mg/dL (8.5-10.5); Carbon Dioxide 22 mmol/L (22-29); Chloride 103 mmol/L (98-107); Creatinine Clr Calc Pharmacy 23.4274; Globulin 3.1 g/dL (1.3-4.6); Glomerular Filtration Rate 16.2 mL/min (90-130); Glucose 473 mg/dL (65-115); Osmolality Calculated 323 mOsm/kg (285-295); Potassium 4.3 mmol/L (3.5-5.1); Sodium 138 mmol/L (136-145); Total Bilirubin 0.2 mg/dL (0.15-1.2); Total Protein 5.8 g/dL (6.6-8.7)
[2024-06-29 21:47] LABS: Partial Thromboplastin Time > 250.0 SECONDS (23.9-36.7); Troponin 5 2HR 682.6 ng/L (0-15); Troponin 5 2HR Delta 502.6 ABS# (0-10)
[2024-06-29] MEDS: diphenhydrAMINE 50 mg/mL SDV 1mL IVP (21:51)
[2024-06-29 22:13] LABS: NT Pro B Type Natriuretic Pept 45210 pg/mL (0-125)
[2024-06-29 23:54] LABS: Amphetamines Screen Urine Negative (Negative); Barbiturates Screen Urine Negative (Negative); Benzodiazepines Screen Urine Negative (Negative); Cocaine Screen Urine Negative (Negative); Opiate Screen Urine Negative (Negative); PCP Screen Urine Negative (Negative); THC Screen Urine Positive (Negative)
[2024-06-30] VITALS (40 sets, daily range): BP systolic 88–174; BP diastolic 54–104; PULSE 63–106; RESP 8–33; TEMP 36.2; O2SAT 90–100
--- NOTE | 2024-06-30 00:59 | ECG_ITS ---
[employer] Test Date: 2024-06-29 Pat Name: Cam Trinh Department: Room: [facility] Gender: Male Human Resources Manager: : 1960 Requested By: Vicky Collins Order Number: [id number] Gavi MD: Jeffry Pugh M.D. Measurements Intervals [place] Rate: 87 P: 8 [place]: 128 QRS: -55 QRSD: 122 T: 92 QT: 395 QTc: 475 Interpretive Statements SINUS RHYTHM LEFT AXIS DEVIATION [QRS AXIS < -30] POSSIBLE RIGHT VENTRICULAR CONDUCTION DELAY [RSR (QR) IN V1/V2] SEPTAL MYOCARDIAL INFARCTION , PROBABLY RECENT [40+ ms Q WAVE IN V1/V2] ACUTE [place] Compared to ECG 06/29/2024 18:55:21 Sinus tachycardia no longer present Short [place] interval no longer present Intraventricular conduction delay no longer present Myocardial infarct finding still present Electronically Signed On 06-30-2024 21:38:52 SPIRITUAL COUNSELOR by Jeffry Pugh M.D. [id number]
[2024-06-30 01:05] LABS: Lactate (Lactic Acid level) 2.1 mmol/L (0.5-2.2)
[2024-06-30 01:09] LABS: Troponin 5 6HR 1745 ng/L (0-15); Troponin 5 6HR Delta 1565 ng/L (0-12)
--- NOTE | 2024-06-30 02:05 | PC.NURSE ---
Tr band deflated site wnl, dressing opsite over site. right wrist without hematoma.
[2024-06-30 05:17] LABS: Basophils % 0.2 %; Eosinophils % 0.1 %; Hematocrit 28.1 % (37-53); Lymphocytes # 1.2 10^3/uL (0.8-4.8); Lymphocytes % 12.2 %; Mean Corpuscular Hemoglobin 27.3 pg (27-33); Mean Corpuscular Volume 85.2 fl (82-101); Mean Platelet Volume 10.2 fL (7.4-10.4); Monocytes # 0.7 10^3/uL (0.2-0.9); Neutrophils # 7.79 10^3/uL (1.8-7.7); Neutrophils % 80.2 %; Nucleated Red Blood Cells % 0 %; Platelet Count 297 10^3/cmm (157-399); Red Cell Distribution Width 15.2 % (12.1-15.1); White Blood Count 9.72 10^3/uL (3.29-11.43)
[2024-06-30 05:45] LABS: Anion Gap 14.2 (5-19); Blood Urea Nitrogen 59 mg/dL (8-23); Calcium 8.2 mg/dL (8.5-10.5); Carbon Dioxide 23 mmol/L (22-29); Chloride 107 mmol/L (98-107); Creatinine Clr Calc Pharmacy 22.5955; Glomerular Filtration Rate 15.2 mL/min (90-130); Glucose 263 mg/dL (65-115); Osmolality Calculated 316 mOsm/kg (285-295); Potassium 4.2 mmol/L (3.5-5.1); Sodium 140 mmol/L (136-145)
[2024-06-30 05:51] LABS: Magnesium 2.1 mg/dL (1.7-2.3)
[2024-06-30] MEDS: metoprolol tartrate 50 mg Tablet PO (06:36)
[2024-06-30 07:10] LABS: Glucose Point of Care 221 mg/dL (70-110)
--- NOTE | 2024-06-30 08:02 | P.PN_ITS ---
Subjective 2 Subjective: Patient is chest pain-free. Breathing has improved. Now on room air. His creatinine is 4. Vitals/I&O/Wt Last Vital Signs Temp 97.2 F L 06/29/24 22:45 Pulse 106 H 06/30/24 05:49 Resp 24 H 06/30/24 05:49 BP 113/71 06/30/24 02:00 Pulse Ox 97 06/30/24 05:49 O2 Del Method BiPAP 06/30/24 05:49 O2 Flow Rate 4 06/30/24 05:49 FiO2 50 06/30/24 03:47 06/29/24 06/30/24 06/30/24 22:59 06:59 14:59 Intake Total 440 / 440 Output Total 450 / 450 Balance -10 / -10 Weight last 48 hrs Weight 232 lb Weight 232 lb 12.93 oz Weight 225 lb Physical Exam 2 Narrative: GENERAL: Patient is alert, awake and oriented x3. [] NECK: No jugular vein distension. [] HEENT: No cyanosis. No icterus. No pallor. [] HEART: Tachycardia LUNGS: Bilateral crackles CENTRAL NERVOUS SYSTEM: Grossly nonfocal. [] EXTREMITIES: Lower extremities with 2+ edema bilaterally. Data 06/30/24 04:12 06/30/24 04:12 A&P Assessment and plan (1) STEMI (ST elevation myocardial infarction): (2) Hypertension: Qualifiers: Hypertension type: primary hypertension Qualified Code(s): I10 - Essential (primary) hypertension (3) Hyperlipidemia: Qualifiers: Hyperlipidemia type: mixed hyperlipidemia Qualified Code(s): E78.2 - Mixed hyperlipidemia (4) Acute on chronic congestive heart failure: (5) Diabetes type 2 with atherosclerosis of arteries of extremities: (6) Acute kidney injury superimposed on CKD: Plan The patient underwent successful revascularization of proximal to mid LAD with 2 stents last night. Postprocedure had more chest discomfort. Repeat coronary angiogram showed patent stents and no further intervention was required. He is overall doing well. No chest pain. Off of BiPAP right now. Had rash post procedure, improved with benadryl. He has REGINO on CKD. Creatinine is 4. Likely will develop MAUREEN over the next 2-3 days. Continue lasix for now as patient is volume overloaded. We will consult nephrology. Echo ordered. Low dose metoprolol. Hold ARNI/ACEi secondary to REGINO on CKD. Medicine team on board for medical management of diabetes and other medical issues. Attestations 2 Medical Necessity Statement*: Care expected to cross 2 midnights. Patient is s/p PCI of proximal to mid LAD with 2 stents post STEMI. Coding Level of Care Code Acute Code for [facility] Fwd Diagnoses STEMI (ST elevation myocardial infarction) I21.3 Primary hypertension I10 Hypertension type: primary hypertension Mixed hyperlipidemia E78.2 Hyperlipidemia type: mixed hyperlipidemia Acute on chronic congestive heart failure I50.9 Diabetes type 2 with atherosclerosis of arteries of extremities E11.51; I70.209 Acute kidney injury superimposed on CKD N17.9; N18.9
[2024-06-30] MEDS: sennosides-docusate Tablet 1 TAB PO (08:21)
[2024-06-30] MEDS: aspirin 81 mg EC Tablet PO (08:21)
[2024-06-30] MEDS: clopidogrel 75 mg Tablet PO (08:21)
[2024-06-30] MEDS: FUROsemide 10 mg/mL SDV 10mL 20 MG IVP (08:21)
[2024-06-30] MEDS: enoxaparin 40 mg/0.4 mL Syringe SUBCUT (08:21)
[2024-06-30] MEDS: insulin lispro 100 unit/1 mL SUBCUT ×3 (08:22→18:43)
[2024-06-30 11:23] LABS: Glucose Point of Care 241 mg/dL (70-110)
--- NOTE | 2024-06-30 11:30 | P.PN_ITS ---
Subjective 2 Subjective: Seen this morning. Creatinine 4.0 today. He is status post cath. Resting comfortably in bed. Not having any chest pain at this time. Vitals/I&O/Wt Last Vital Signs Temp 97.2 F L 06/29/24 22:45 Pulse 94 06/30/24 08:50 Resp 18 06/30/24 08:50 BP 113/71 06/30/24 02:00 Pulse Ox 99 06/30/24 08:50 O2 Del Method Nasal Cannula 06/30/24 08:50 O2 Flow Rate 4 06/30/24 08:50 FiO2 50 06/30/24 03:47 06/29/24 06/30/24 06/30/24 22:59 06:59 14:59 Intake Total 440 / 440 200 / 200 Output Total 450 / 450 175 / 175 Balance -10 / -10 Weight last 48 hrs Weight 105.233 kg Weight 105.6 kg Weight 102.058 kg Physical Exam 2 Narrative: GENERAL: Patient is alert, awake and oriented x3. NECK: No jugular vein distension. HEENT: No cyanosis. No icterus. No pallor. HEART: Tachycardia LUNGS: Bilateral crackles CENTRAL NERVOUS SYSTEM: Grossly nonfocal. EXTREMITIES: Lower extremities with 2+ edema bilaterally. Data 06/30/24 04:12 06/30/24 04:12 A&P Assessment and plan (1) CHF (congestive heart failure): Qualifiers: Heart failure type: combined systolic and diastolic Heart failure chronicity: acute on chronic Qualified Code(s): I50.43 - Acute on chronic combined systolic (congestive) and diastolic (congestive) heart failure (2) Poor compliance: (3) Acute on chronic congestive heart failure: (4) STEMI (ST elevation myocardial infarction): (5) Hyperlipidemia: Qualifiers: Hyperlipidemia type: mixed hyperlipidemia Qualified Code(s): E78.2 - Mixed hyperlipidemia (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: (7) REGINO (acute kidney injury): (8) Sciatica: (9) Neuropathy, diabetic: Plan STEMI Status post LAD 2 stents Continue dual antiplatelet therapy along statins Patient has been weaned off Levophed Echo report to be followed Acute systolic CHF exacerbation Currently on IV diuretic regimen along BiPAP Hansen catheter refused by the patient, stating that he would like to use urinal Type II diabetic with complications related to neuropathy Continue insulin sliding scale Cardiac consistent carb diet Pulm edema: I have requested BiPAP overnight patient is agreeable DVT prophylaxis: Heparin Will follow along cardiology Full code 06/30/2024 -Patient is status post 2 stents ? Contrast-induced nephropathy versus combination of cardiorenal plus contrast- induced worsening: Creatinine 4.0. ? Consult nephrology. Await recommendations ? Continue insulin sliding scale ? Continue on Lasix 20 IV twice daily patient is fluid overload intermittently diuresis. ? Continue aspirin Plavix atorvastatin ? Medicine will continue to follow along. ? Patient has refused Hansen catheter. Attestations 2 Medical Necessity Statement*: Care expected to cross 2 midnights. Patient is s/p PCI of proximal to mid LAD with 2 stents post STEMI. Coding Level of Care Code Acute Code for Chg Fwd Diagnoses Acute on chronic combined systolic and diastolic congestive heart failure I50.43 Heart failure type: combined systolic and diastolic Heart failure chronicity: acute on chronic Poor compliance Z91.199 Acute on chronic congestive heart failure I50.9 STEMI (ST elevation myocardial infarction) I21.3 Mixed hyperlipidemia E78.2 Hyperlipidemia type: mixed hyperlipidemia 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
--- NOTE | 2024-06-30 12:22 | USCV_ITS ---
Cam Trinh Age: 64 Gender: M : 1960 Exam Date: 06/30/2024 17:40 Ordering Phys: Washington Tilley M.D ([email or web address]) Technologist: Jak Freire Exam Location: [facility] – [place] Indication: post stemi BP: 113 / 71 HR: 75 Rhythm: Sinus Technical Quality: Adequate MEASUREMENTS (Male / Female) Normal Values 2D ECHO LVOT Diameter 2.3 cm LV Ejection Fraction MOD 4C 30.4 % LV Ejection Fraction MOD 2C 42.5 % LV Ejection Fraction 2C AL 42.8 % LA Diameter 3.8 cm RA Systolic Volume 4C AL 57.7 ml RA Systolic Volume 4C MOD 56.9 ml LA Sys Volume AL 55.9 cm cubed LA Sys Volume Index AL 24.3 cm cubed/m squared Aorta at Sinotubular Diameter 2.1 cm IVC Diameter 1.6 cm M-MODE LA Ao Ratio MM 1.3 AV Cusp Separation MM 2.1 cm DOPPLER AV Peak Velocity 124.0 cm/s LVOT Peak Velocity 77.0 cm/s AV Area Cont Eq vti 2.7 cm squared AV Area Cont Eq pk 2.5 cm squared MV Peak Velocity 114.0 cm/s MV Area PHT 4.6 cm squared Mitral E to A Ratio 1.3 TR Peak Velocity 395.0 cm/s TR Peak Gradient 62.4 mmHg TR Mean Velocity 323.0 cm/s TR Mean Gradient 44.3 mmHg TR Velocity Time Integral 144.8 cm PV Peak Velocity 77.0 cm/s RV Ejection Time 0.3 s FINDINGS Left Ventricle Left ventricle is normal in size. LV systolic function is moderately reduced with EF of 35-40%. Moderate global hypokinesis. Can not rule out LV thrombus Right Ventricle Normal in size and function Right Atrium Normal in size Left Atrium Normal in size Mitral Valve Grossly normal. Mild mitral regurgitation Aortic Valve Grossly normal. No significant stenosis or regurgitation. Tricuspid Valve Insufficient TR jet to calculate RVSP Pulmonic Valve Not well visualized Pericardium Small pericardial effusion Aorta Normal in size IVC Appears to be normal CONCLUSIONS LV systolic function is reduced with EF of 35-40% LV thrombus can not be ruled out Mild mitral regurgitation Small pericardial effusion Compared to prior echocardiogram from 08/2023, no significant changes seen. Recommend limited echocardiogram with contrast to rule out LV thrombus. Washington Tilley MD (Electronically Signed) Final Date: 30 June 2024 22:33 S
--- NOTE | 2024-06-30 12:45 | PC.PHAR ---
Patient states he needs to have a doctor refill his medication . He states he has been taking medications but is out of Plavix and Metoprolol Succinate. I verified with the Pharmacies he has picked up at and they haven't filled any thing since April for 30 days. [facility] filled an antibiotic in May for 14 days.
[2024-06-30 17:13] LABS: Glucose Point of Care 208 mg/dL (70-110)
[2024-06-30] MEDS: FUROsemide 10 mg/mL SDV 4mL 40 MG IVP (18:44)
--- NOTE | 2024-06-30 18:55 | P.CONIM_ITS ---
Providers/Reason For Consult 2 Consulting Physician/Specialty*: Kvng leblanc MD/ telenephrology Reason for Consult*: REGINO Requesting Physician: Dr Lee Davey Attending Physician: Washington Tilley M.D Primary Care Provider: Ezio Leahy History of Present Illness History of Present Illness Cam Trinh is a 64 year old male h/o Non ischemic Cardiomyopathy, DM, HTN, obesity. Pt was admitted on 06/29/24 w/ CP and code STEMI. He went to the culture media laboratory assistant- Left heart cath/PCI: Critical proximal LAD stenosis s/p successful revascularization with 2 stents. Mid RCA has 60-70% stenosis. He went back to the culture media laboratory assistant again on Jun w/ recurrent chest pains- w/ no changes On admission cr was 3.8 mg/dl. -He then went to the ICU on Bipap at 9 pm on 06-29-24- he had a casillas placed, and lasix. He remains oliguric and renal is called to consult. At home he was on empagliflozin, celebrex, furosemide, metformin, omeprazole, and potassium. no recorded sari-i or ARB. In August 2023- he had an admission w/ REGINO- cr of 1.7-2 mg/dl. We do not have more recent labs In August 2023 his EF was 35- 40% Review of Systems 2 Narrative: on bipap- lethargic, swollen, SOB. no rudolph, cp, n/v/f/c Medications/Allergies Home Medications Medication Instructions Recorded Confirmed Last Taken Type aspirin 81 mg tablet,delayed 81 mg PO DAILY #60 tabs 06/22/22 06/30/24 06/29/24 Rx release flash glucose scanning reader #1 ea 09/07/23 06/30/24 Unknown Rx (FreeStyle Igor 14 Day [place]) flash glucose sensor (FreeStyle #1 ea 09/07/23 06/30/24 Unknown Rx Igor 14 Day Sensor kit) acetaminophen 500 mg tablet 1,000 mg PO Q6H PRN Pain 09/08/23 06/30/24 Unknown History empagliflozin 25 mg tablet 25 mg PO DAILY #30 tabs 09/13/23 06/30/24 Unknown Rx (Jardiance) hydralazine 50 mg tablet 50 mg PO TID #90 tabs 09/28/23 06/30/2425 Rx clopidogrel 75 mg tablet 75 mg PO DAILY #90 tabs 11/08/23 06/30/24 06/29/24 Rx insulin glargine 100 unit/mL (3 20 unit (0.2 mL) SUBCUT BID #15 mL 11/08/23 06/30/24 06/29/24 Rx mL) subcutaneous pen (Lantus Solostar U-100 Insulin) metformin 500 mg tablet 500 mg PO BID #180 tabs 11/08/23 06/30/24 Unknown Rx potassium chloride 20 mEq 20 meq PO DAILY #90 tabs 11/08/23 06/30/24 06/29/24 Rx tablet,extended release atorvastatin 80 mg tablet 80 mg PO BEDTIME 06/30/24 06/30/24 06/29/24 History insulin glargine 100 unit/mL (3 25 unit SUBCUT BEDTIME 06/30/24 06/30/24 06/28/24 History mL) subcutaneous pen (Lantus Solostar U-100 Insulin) isosorbide mononitrate 30 mg 60 mg PO DAILY 06/30/24 06/30/24 06/29/24 History tablet,extended release 24 hr metoprolol succinate 25 mg 25 mg PO DAILY 06/30/24 06/30/24 06/29/24 History tablet,extended release 24 hr torsemide 20 mg tablet 20 mg PO BID 06/30/24 06/30/24 06/29/24 History Allergies Allergy/AdvReac Type Severity Reaction Status Date / Time No Known Allergies Allergy Verified 11/08/23 09:21 Current Medications Generic Name Dose Route Start Last Admin Trade Name Mick PRN Reason Stop Dose Admin Aspirin 81 mg 06/30/24 09:00 06/30/24 08:21 Aspirin 81 Mg Ec Tablet PO 81 mg DAILY ESTRELLA Administration Clopidogrel Bisulfate 75 mg 06/30/24 09:00 06/30/24 08:21 Clopidogrel 75 Mg Tablet PO 75 mg DAILY ESTRELLA Administration Enoxaparin Sodium 40 mg 06/30/24 09:00 06/30/24 08:21 Enoxaparin 40 Mg/0.4 Ml Syringe SUBCUT 40 mg Q24H ESTRELLA Administration Furosemide 20 mg 06/30/24 09:00 06/30/24 08:21 Furosemide 10 Mg/Ml Sdv 10ml IVP 20 mg Q12H ESTRELLA Administration Insulin Human Lispro 0 unit 06/30/24 08:00 06/30/24 18:43 Insulin Lispro 100 Unit/1 Ml SUBCUT 6 unit WM&BEDTIME ESTRELLA Administration Protocol Metoprolol Tartrate 50 mg 06/30/24 07:00 06/30/24 06:36 Metoprolol Tartrate 50 Mg Tablet PO 50 mg BID@0900,2100 ESTRELLA Administration Senna/Docusate Sodium 1 tab 06/30/24 09:00 06/30/24 08:21 Sennosides-Docusate Tablet PO 1 tab DAILY ESTRELLA Administration PFSH Acute 2 PFSH: Medical History Rib pain on right side Large pleural effusion Hypertension Diabetes Abnormal nuclear stress test Hyperglycemia Hypertensive urgency Angina at rest Diabetic neuropathy, painful Chest pain Surgical History History of surgical removal of meniscus of knee Family History Other CAD (coronary artery disease) Diabetes Social History Smoking and tobacco/nicotine status: former use of tobacco/nicotine Alcohol intake: former Substance/Drug Use: never Vitals/I&O/Wt Last Vital Signs Temp 97.2 F L 06/29/24 22:45 Pulse 75 06/30/24 13:57 Resp 18 06/30/24 08:50 BP 113/71 06/30/24 02:00 Pulse Ox 99 06/30/24 08:50 O2 Del Method Nasal Cannula 06/30/24 08:50 O2 Flow Rate 4 06/30/24 08:50 FiO2 50 06/30/24 03:47 06/30/24 06/30/24 06/30/24 06:59 14:59 22:59 Intake Total 440 / 440 1855 / 1855 354 / 2209 Output Total 450 / 450 425 / 425 Balance -10 / -10 1430 / 1430 354 / 1784 Weight last 48 hrs Weight 105.233 kg Weight 105.6 kg Weight 102.058 kg Physical Exam 2 Narrative: VS noted- on bipap heent- nc/at neck swollen lungs b/l crackles heart reg, + s1, s2 abd soft, nt, nd, + bs ext + b/l edema neuro- responsive and interactive Data 06/30/24 04:12 06/30/24 04:12 A&P Assessment and plan (1) Acute kidney injury superimposed on CKD: 64 yr old man obesity, htn, type 2 dm, HFrEF 1. CKD stage 3b- cr 1.7- 2 mg/dl in August 2023- at that time 3+ ur protein Renal us in August 2023- rt 11.2 cm, left 12.3 cm- read as normal renal us 2. STEMI- w/ culture media laboratory assistant x 2 3. REGINO on CKD- admission cr was 3.8 mg/dl given cxr w/ Pulm granuloma- please test for m. tb and sarcoid -will repeat urine studies repeat renal us check spep, sife, serologies check ck -will give furosemide and monitor -may need dialysis soon seen and examined with RN using A/V equipment w/ the AIDE of the RN Plan see above Consult Attestations 2 Medical Necessity Statement: +STEMI, REGINO on CKD Time Spent in Patient Care: Greater than 35 minutes (>than 50% of time spent in counselling and/or direct pt care on unit) . Coding Level of Care Code Acute Code for Josephg Fwd Diagnoses Acute kidney injury superimposed on CKD N17.9; N18.9
[2024-06-30] MEDS: FUROsemide 10 mg/mL SDV 10mL 80 MG IVP (20:14)
[2024-06-30] MEDS: atorvastatin 40 mg Tablet 80 MG PO (20:15)
[2024-06-30 20:30] LABS: Uric Acid 7.8 mg/dL (3.4-7.0)
[2024-06-30 20:31] LABS: Alanine Aminotransferase 15 U/L (0-41); Albumin Level 2.8 g/dL (3.5-5.2); Alkaline Phosphatase 106 U/L (40-130); Anion Gap 24.5 (5-19); Aspartate Amino Transferase 36 U/L (0-40); Blood Urea Nitrogen 65 mg/dL (8-23); C Reactive Protein 14.5 mg/L (0.0-4.9); Calcium 8.1 mg/dL (8.5-10.5); Carbon Dioxide 24 mmol/L (22-29); Chloride 96 mmol/L (98-107); Complement C3 103 mg/dL (90-180); Creatine Phosphokinase 296 U/L (39-308); Creatinine Clr Calc Pharmacy 18.8296; Globulin 2.7 g/dL (1.3-4.6); Glomerular Filtration Rate 12.3 mL/min (90-130); Glucose 136 mg/dL (65-115); Osmolality Calculated 311 mOsm/kg (285-295); Potassium 4.5 mmol/L (3.5-5.1); Sodium 140 mmol/L (136-145); Total Bilirubin 0.2 mg/dL (0.15-1.2); Total Protein 5.5 g/dL (6.6-8.7)
[2024-06-30 20:32] LABS: Erythrocyte Sedimentation Rate 32 mm/hr (0-10)
[2024-06-30 20:37] LABS: Hepatitis C Virus Antibody Non-Reactive (Nonreactive)
[2024-06-30] MEDS: ondansetron 2 mg/ML SDV 2 mL 4 MG IVP (21:16)
[2024-06-30] MEDS: FUROsemide 100 MG in sodium chloride 0.9% 40 ML IV (21:16)
--- NOTE | 2024-06-30 22:25 | XRR_ITS ---
PROCEDURE INFORMATION: Exam: XR Abdomen Exam date and time: 06/30/2024 10:32 PM Age: 64 years old Clinical indication: Bloating and vomiting; Patient HX: Vomiting with distention TECHNIQUE: Imaging protocol: Radiologic exam of the abdomen. Views: Frontal supine view of the abdomen. 1 View. COMPARISON: CR (CHEST, ) 06/29/2024 9:57 PM FINDINGS: Limitations: Study is limited by portable technique. Pleural spaces: There are bilateral pleural effusions. Gastrointestinal tract: There is a large amount of feces throughout colon worrisome for constipation. Bowel gas pattern is nonspecific. There is some gaseous distension of the stomach. Bones/joints: Unremarkable. XR/XR KUB portable [id number] IMPRESSION: 1. Findings suggesting constipation. 2. Moderate gaseous distension of the stomach. 3. Bilateral pleural effusions.
[2024-06-30] MEDS: metoclopramide 5 mg/mL SDV 2 mL 10 MG IVP (22:52)
[2024-06-30 23:16] LABS: Glucose Point of Care 144 mg/dL (70-110)
[2024-07-01] VITALS (24 sets, daily range): BP systolic 125–171; BP diastolic 67–97; PULSE 63–88; RESP 16–25; TEMP 36.7; O2SAT 65–100
[2024-07-01] MEDS: metoprolol tartrate 50 mg Tablet PO ×3 (00:42→20:21)
--- NOTE | 2024-07-01 06:17 | CTR_ITS ---
PROCEDURE INFORMATION: Exam: CT Chest Without Contrast; Diagnostic Exam date and time: 07/01/2024 9:06 AM Age: 64 years old Clinical indication: Constipation; Shortness of breath; Additional info: Granuloma on xray chest/sob + worsening creatinine, severe john, renal obstruction? TECHNIQUE: Imaging protocol: Diagnostic computed tomography of the chest without contrast. Radiation optimization: All CT scans at this facility use at least one of these dose optimization techniques: automated exposure control; mA and/or kV adjustment per patient size (includes targeted exams where dose is matched to clinical indication); or iterative reconstruction. COMPARISON: CT angio chest PE protcl [id number] 09/10/2023 6:57 PM RADIATION DOSE METRICS: Total DLP (mGy-cm): 1226.92 FINDINGS: Thyroid: Partially visualized thyroid appears unremarkable. Lungs: Minimal interlobular septal thickening appearing similar to prior exam. 11 mm calcified granuloma in the left upper lobe. Pleural spaces: Large bilateral pleural effusions with overlying compressive atelectasis. Heart: There is mild cardiomegaly. No significant pericardial effusion. Coronary arteries: Left anterior descending artery stent is in place. Lymph nodes: Calcified mediastinal and left hilar lymph nodes incompletely evaluated noncontrast exam likely related to prior granulomatous disease. Additional scattered prominent mediastinal lymph nodes seen in the upper mediastinum (/18) are largely unchanged from prior exam. Vasculature: Unremarkable. No aortic aneurysm. Bones/joints: Unremarkable. No acute fracture. Degenerative changes of the thoracic spine. Soft tissues: Bilateral gynecomastia [id number]. PROCEDURE INFORMATION: Exam: CT Abdomen And Pelvis Without Contrast Exam date and time: 07/01/2024 9:06 AM Age: 64 years old Clinical indication: Constipation; Shortness of breath; Additional info: Granuloma on xray chest/sob + worsening creatinine, severe john, renal obstruction? TECHNIQUE: Imaging protocol: Computed tomography of the abdomen and pelvis without contrast. Radiation optimization: All CT scans at this facility use at least one of these dose optimization techniques: automated exposure control; mA and/or kV adjustment per patient size (includes targeted exams where dose is matched to clinical indication); or iterative reconstruction. COMPARISON: CR (ABDOMEN, ) 06/30/2024 10:32 PM RADIATION DOSE METRICS: Total DLP (mGy-cm): 1226.92 FINDINGS: Liver: Scattered calcified foci in the left hepatic lobe. Gallbladder and biliary ducts: High density biliary sludge noted within the gallbladder. No gallbladder wall thickening or pericholecystic edema. No calcified stones. No ductal dilation. Pancreas: Normal. No ductal dilation. Spleen: Multiple calcified foci in the spleen compatible with old granulomatous disease. Adrenal glands: Mild nodular thickening of the right adrenal gland. The left adrenal gland is unremarkable. Kidneys and ureters: There is mild perinephric stranding bilaterally left greater than right. Punctate nonobstructing nephrolithiasis in the left kidney. Indeterminate (Hounsfield unit 40) lesion in the interpolar region of the right kidney measuring 2.1 x 2.2 cm. Indeterminate 13 x 18 mm partially exophytic cystic lesion in the interpolar region of the left kidney with minimally complex fluid (Hounsfield unit 23). Stomach and bowel: Scattered colonic diverticulosis without evidence to suggest acute diverticulitis. Appendix: The appendix is unremarkable. Intraperitoneal space: Unremarkable. No free air. No significant fluid collection. Vasculature: Unremarkable. No abdominal aortic aneurysm. Lymph nodes: Unremarkable. No enlarged lymph nodes. Urinary bladder: Contrast seen within the urinary bladder. Reproductive: Unremarkable as visualized. Bones/joints: Moderate multilevel degenerative disease of the thoracolumbar spine. Diffuse idiopathic skeletal hyperostosis. Soft tissues: Tiny fat containing umbilical hernia. Soft tissue anasarca. Small foci of air noted along the right anterior abdominal wall possibly related to recent injection. CT/CT chest abdpel [id number] IMPRESSION: Large bilateral pleural effusions with overlying compressive atelectasis. Similar minimal interlobular septal thickening and cardiomegaly compatible with CHF. IMPRESSION: 1. Evaluation limited due to lack of IV contrast. 2. There is bilateral perinephric stranding and edema left greater than right. Punctate nonobstructing nephrolithiasis in the left kidney without evidence hydroureteronephrosis or obstructing ureteral calculi bilaterally. Findings may be compatible with sequela of medical renal disease however superimposed pyelonephritis is not entirely excluded. Recommend clinical and laboratory correlation and further evaluation with contrast enhanced CT as clinically feasible. 3. Indeterminate renal lesions as described above can be further evaluated with nonemergent CT/MRI renal mass protocol. 4. Other findings as described in the body of the report. COMMENTS: Consistent with the [employer]'s Incidental Findings Committee white paper (J Am Marty Radiol 2018): Any incidental renal lesion less than 1 cm or classified as too small to characterize, or any incidental cystic renal lesion characterized as simple-appearing, is likely benign. No follow-up imaging is recommended for these lesions per consensus recommendations based on imaging criteria.
--- NOTE | 2024-07-01 06:20 | P.PN_ITS ---
Subjective 2 Subjective: Seen this morning. Urine output 300 cc overnight. Currently getting an echocardiogram. Suspicion of left ventricular thrombus. Repeat echo being conducted at this time. Creatinine 4.8, BUN 69, phosphorus 6.0. CT chest abdomen pelvis ordered this morning and pending at this time. Renal ultrasound pending at this time. Patient currently on a Lasix drip. Vitals/I&O/Wt Last Vital Signs Temp 97.1 F L 06/30/24 00:15 Pulse 66 07/01/24 06:00 Resp 18 07/01/24 02:00 BP 139/75 07/01/24 02:00 Pulse Ox 96 07/01/24 02:00 O2 Del Method Nasal Cannula 06/30/24 08:50 O2 Flow Rate 4 06/30/24 08:50 FiO2 50 06/30/24 03:47 06/30/24 06/30/24 07/01/24 14:59 22:59 06:59 Intake Total 1855 / 1855 574 / 2429 100 / 2529 Output Total 425 / 425 157 / 1994 350 / 2345 Balance 1430 / 1430 -996 / 434 -250 / 184 Weight last 48 hrs Weight 105.5 kg Weight 105.233 kg Weight 105.6 kg Weight 102.058 kg Physical Exam 2 Narrative: GENERAL: Patient is alert, awake and oriented x3. NECK: No jugular vein distension. HEENT: No cyanosis. No icterus. No pallor. HEART: Regular rate rhythm. LUNGS: Bilateral crackles CENTRAL NERVOUS SYSTEM: Grossly nonfocal. EXTREMITIES: Lower extremities with 2+ edema bilaterally. Data 07/01/24 05:48 07/01/24 05:48 A&P Assessment and plan (1) CHF (congestive heart failure): Qualifiers: Heart failure type: combined systolic and diastolic Heart failure chronicity: acute on chronic Qualified Code(s): I50.43 - Acute on chronic combined systolic (congestive) and diastolic (congestive) heart failure (2) Poor compliance: (3) Acute on chronic congestive heart failure: (4) STEMI (ST elevation myocardial infarction): (5) Hyperlipidemia: Qualifiers: Hyperlipidemia type: mixed hyperlipidemia Qualified Code(s): E78.2 - Mixed hyperlipidemia (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: (7) REGINO (acute kidney injury): (8) Sciatica: (9) Neuropathy, diabetic: Plan STEMI Status post LAD 2 stents Continue dual antiplatelet therapy along statins Patient has been weaned off Levophed Echo report to be followed Acute systolic CHF exacerbation Currently on IV diuretic regimen along BiPAP Hansen catheter refused by the patient, stating that he would like to use urinal Type II diabetic with complications related to neuropathy Continue insulin sliding scale Cardiac consistent carb diet Pulm edema: I have requested BiPAP overnight patient is agreeable DVT prophylaxis: Heparin Will follow along cardiology Full code 06/30/2024 -Patient is status post 2 stents ? Contrast-induced nephropathy versus combination of cardiorenal plus contrast- induced worsening: Creatinine 4.0. ? Consult nephrology. Await recommendations ? Continue insulin sliding scale ? Continue on Lasix 20 IV twice daily patient is fluid overload intermittently diuresis. ? Continue aspirin Plavix atorvastatin ? Medicine will continue to follow along. ? Patient has refused Hansen catheter. 07/01/2024 -Continue Lasix drip at this time. ? Urine output 300 cc overnight. ? Creatinine is worsening. Nephrology following. ? Continue aspirin Plavix atorvastatin ? CT chest abdomen pelvis pending at this time to evaluate for granuloma and because of renal failure ? Renal ultrasound also pending at this time ? Medicine will continue to follow Attestations 2 Medical Necessity Statement*: Care expected to cross 2 midnights. Patient is s/p PCI of proximal to mid LAD with 2 stents post STEMI. Diagnoses Acute on chronic combined systolic and diastolic congestive heart failure I50.43 Heart failure type: combined systolic and diastolic Heart failure chronicity: acute on chronic Poor compliance Z91.199 Acute on chronic congestive heart failure I50.9 STEMI (ST elevation myocardial infarction) I21.3 Mixed hyperlipidemia E78.2 Hyperlipidemia type: mixed hyperlipidemia 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
[2024-07-01 06:23] LABS: Bilirubin Urine Negative (Negative); Blood Urine Negative (Negative); Glucose Urine UA 2+ (Normal); Ketones Urine Negative (Negative); Leukocyte Esterase Urine Negative (Negative); Nitrate Urine Negative (Negative); Protein Urine 4+ (Negative); Specific Gravity, Urine 1.028 (1.005-1.030); Urine Appearance Clear (CLEAR); Urine Color Yellow (Yellow); Urobilinogen Urine 0.2 mg/dL (Negative); pH Urine 5.5 (5-7)
[2024-07-01 06:23] LABS: Basophils % 0.4 %; Eosinophils # 0.1 10^3/uL (0.0-0.8); Eosinophils % 0.7 %; Hematocrit 29.9 % (37-53); Lymphocytes # 1.9 10^3/uL (0.8-4.8); Lymphocytes % 21.1 %; Mean Corpuscular HGB Conc 31.8 g/dL (30-55); Mean Corpuscular Hemoglobin 27.3 pg (27-33); Mean Corpuscular Volume 85.9 fl (82-101); Mean Platelet Volume 10.4 fL (7.4-10.4); Monocytes # 0.5 10^3/uL (0.2-0.9); Monocytes % 5.9 %; Neutrophils # 6.52 10^3/uL (1.8-7.7); Neutrophils % 71.6 %; Nucleated Red Blood Cells % 0 %; Platelet Count 289 10^3/cmm (157-399); Red Blood Count 3.48 10^6/uL (3.85-5.65); Red Cell Distribution Width 15.2 % (12.1-15.1); White Blood Count 9.11 10^3/uL (3.29-11.43)
[2024-07-01 06:27] LABS: Bacteria Urine None Seen /hpf; Hyaline Casts Urine 8.26 /lpf; RBC Urine 0-2 /hpf (0-2); Squamous Epithelial Cell Urine 0-5 /hpf (0-5); Universal Test for UA Present (0); WBC Urine 0-5 /hpf (0-5)
[2024-07-01 06:46] LABS: Potassium, Radom Urine 42 mmol/L; Urine Creatinine 65 mg/dL (39-259); Urine Random Chloride 52 mmol/L; Urine Random Sodium 48 mmol/L
[2024-07-01 06:53] LABS: Calcium 8.5 mg/dL (8.5-10.5)
[2024-07-01 06:54] LABS: Anion Gap 17.7 (5-19); Blood Urea Nitrogen 69 mg/dL (8-23); Calcium 8.4 mg/dL (8.5-10.5); Carbon Dioxide 22 mmol/L (22-29); Chloride 103 mmol/L (98-107); Creatinine Clr Calc Pharmacy 18.8534; Ferritin 419 ng/mL (30-400); Glomerular Filtration Rate 12.3 mL/min (90-130); Glucose 121 mg/dL (65-115); Iron 36 ug/dL (59-158); Magnesium 2.1 mg/dL (1.7-2.3); Osmolality Calculated 307 mOsm/kg (285-295); Parathyroid Hormone 241.8 pg/mL (15-65); Percent Saturation 20.6 % (20-50); Potassium 4.7 mmol/L (3.5-5.1); Sodium 138 mmol/L (136-145); Total Iron Binding Capacity 174 mcg/dl; Unsaturated Iron Binding 138 ug/dL (112-347)
[2024-07-01 06:54] LABS: Creatinine Urine, Random 68 mg/dL (39-259)
[2024-07-01 07:04] LABS: 25 Hydroxy Vitamin D 6 ng/mL (30-100)
[2024-07-01 07:16] LABS: Microalbum Creatinine Ratio Ur 8544 mg/dL (0-20); Microalbumin Random Urine > 581 ug/dL (0-20)
[2024-07-01 07:33] LABS: Glucose Point of Care 129 mg/dL (70-110)
[2024-07-01] MEDS: enoxaparin 40 mg/0.4 mL Syringe SUBCUT (08:01)
[2024-07-01] MEDS: sennosides-docusate Tablet 1 TAB PO (08:02)
[2024-07-01] MEDS: clopidogrel 75 mg Tablet PO (08:02)
[2024-07-01] MEDS: aspirin 81 mg EC Tablet PO (08:02)
--- NOTE | 2024-07-01 09:21 | PC.NURSE ---
Pt taken to CT via wheelchair. Tolerated well
--- NOTE | 2024-07-01 09:27 | PM.PN ---
Subjective Subjective: feels better. went to CT scan. dec n/v/abd pain and diarrhea. denies cp or rudolph or sob Medications: Reviewed: Yes Medication Review Details: Current Medications Acetaminophen (Acetaminophen 325 Mg Tablet) 650 mg PO Q6H PRN PRN Reason: MILD PAIN Acetaminophen (Acetaminophen 500 Mg Tablet) 500 mg PO Q4H PRN PRN Reason: fever Albuterol/Ipratropium (Ipratropium-Albuterol 3 Ml Neb) 3 ml INHALATION Q6H PRN PRN Reason: SHORTNESS OF BREATH Alprazolam (Alprazolam 0.5 Mg Tablet) 0.25 mg PO TID PRN PRN Reason: ANXIETY Aspirin (Aspirin 81 Mg Ec Tablet) 81 mg PO DAILY [facility] Last Admin: 07/01/24 08:02 Dose: 81 mg Atorvastatin Calcium (Atorvastatin 40 Mg Tablet) 80 mg PO BEDTIME [facility] Last Admin: 06/30/24 20:15 Dose: 80 mg Atropine Sulfate (Atropine 1 Mg/Ml Sdv 1 Ml) 0.5 mg IVP PRN PRN PRN Reason: Symptomatic bradycardia Clopidogrel Bisulfate (Clopidogrel 75 Mg Tablet) 75 mg PO DAILY [facility] Last Admin: 07/01/24 08:02 Dose: 75 mg Enoxaparin Sodium (Enoxaparin 40 Mg/0.4 Ml Syringe) 40 mg SUBCUT Q24H [facility] Last Admin: 07/01/24 08:01 Dose: 40 mg Fentanyl (Fentanyl 50 Mcg/Ml Inj 2ml) 50 mcg IVP PRN PRN PRN Reason: Pain Furosemide (Furosemide 10 Mg/Ml Sdv 10ml) 80 mg IVP Q12H [facility] Last Admin: 06/30/24 20:14 Dose: 80 mg Glucagon (Glucagon 1 Mg/Ml Kit 1 Ml) 1 mg IM ONCE PRN; Protocol PRN Reason: Adult Acute Hypoglycemia Nursing Prot. Norepinephrine Bitartrate (Levophed) 4 mg in 250 mls @ 0 mls/hr IV .Q0M [facility]; Protocol Dextrose (D5w) 500 mls @ 0 mls/hr IV ONCE PRN; Protocol PRN Reason: Adult Acute Hypoglycemia Prot Dextrose (D10w) 125 mls @ 750 mls/hr IV PRN PRN; Protocol PRN Reason: Adult Acute Hypoglycemia Nursing Protocol Dextrose (D10w) 250 mls @ 1,000 mls/hr IV PRN PRN; Protocol PRN Reason: Adult Acute Hypoglycemia Nursing Protocol Furosemide 100 mg/ Sodium (Chloride) 50 mls @ 2.5 mls/hr IV .Q20H [facility]; Protocol Last Admin: 06/30/24 21:16 Dose: 5 mg/hr, 2.5 mls/hr Insulin Human Lispro (Insulin Lispro 100 Unit/1 Ml) 0 unit SUBCUT WM&BEDTIME [facility]; Protocol Last Admin: 07/01/24 08:02 Dose: Not Given Magnesium Hydroxide (Magnesium Hydroxide 30 Ml Udc) 30 ml PO DAILY PRN PRN Reason: CONSTIPATION Metoprolol Tartrate (Metoprolol Tartrate 50 Mg Tablet) 50 mg PO BID@0900,2100 [facility] Last Admin: 07/01/24 08:02 Dose: 50 mg Morphine Sulfate (Morphine Ir 15 Mg Tablet) 15 mg PO Q6H PRN PRN Reason: MODERATE PAIN Naloxone HCl (Naloxone 0.4 Mg/Ml Sdv) 0.1 mg IVP Q2M PRN PRN Reason: RESPIRATORY RATE < 8/MIN Nitroglycerin (Nitroglycerin 0.4 Mg Sublingual Tablet) 0.4 mg SUBLINGUAL Q5M PRN PRN Reason: CHEST PAIN Ondansetron HCl (Ondansetron 2 Mg/Ml Sdv 2 Ml) 4 mg IVP Q6H PRN PRN Reason: NAUSEA AND VOMITING Last Admin: 06/30/24 21:16 Dose: 4 mg Senna/Docusate Sodium (Sennosides-Docusate Tablet) 1 tab PO DAILY [facility] Last Admin: 07/01/24 08:02 Dose: 1 tab Temazepam (Temazepam 15 Mg Capsule) 15 mg PO BEDTIME PRN PRN Reason: INSOMNIA Vitals/I&O/Wt Last Vital Signs Temp 97.1 F L 06/30/24 00:15 Pulse 66 07/01/24 06:00 Resp 18 07/01/24 02:00 BP 139/75 07/01/24 02:00 Pulse Ox 96 07/01/24 02:00 O2 Del Method Nasal Cannula 06/30/24 08:50 O2 Flow Rate 4 06/30/24 08:50 FiO2 50 06/30/24 03:47 06/30/24 07/01/24 07/01/24 22:59 06:59 14:59 Intake Total 574 / 2429 100 / 2529 120 / 120 Output Total 1570 / 1995 350 / 2345 175 / 175 Balance -996 / 434 -250 / 184 -55 / -55 Weight last 48 hrs Weight 105.5 kg Weight 105.233 kg Weight 105.6 kg Weight 102.058 kg Physical Exam Narrative: VS noted- off any supplemental 02 heent- nc/at neck supple, no jvp lungs b/l improved air movement heart reg, + s1, s2 abd soft, nt, nd, + bs ext + b/l edema improving neuro- responsive and interactive,a,a,o x 3, from x4 Data 07/01/24 05:48 07/01/24 05:48 A&P Assessment and plan (1) Acute kidney injury superimposed on CKD: 64 yr old man obesity, htn, type 2 dm, HFrEF 1. CKD stage 3b- cr 1.7- 2 mg/dl in August 2023- at that time 3+ ur protein Renal us in August 2023- rt 11.2 cm, left 12.3 cm- read as normal renal us 2. STEMI- w/ aquatic laborer x 2 3. REGINO on CKD- admission cr was 3.8 mg/dl given cxr w/ Pulm granuloma- please test for m. tb and sarcoid -cr stable u/a w/ 4+ protein, 2+ gluc, random microalb >581, microalb/ cr 8544 ur na 48, ur cl 52 -cr guadalupe to 4.8 good uop hopefully renal fxn is starting to improve f/u cT scan- ensure that there is no hydronephrosis check spep, sife, serologies all normal c3 and b0sakvroy ck 296- not causing REGINO 4. anemia- hgb stable- t sat 20%, ferritin 419 5. renal bone mineral metabolism- phos 6, vit d 25, pth 242- repelate vit d. monitor phos may need a binder soon -repeat pth in a month seen and examined with RN using A/V equipment w/ the AIDE of the RN Plan see above Attestations Medical Necessity Statement*: s/p cardiac stent, REGINO, edema, anemia Time Spent in Patient Care: 16 - 35 minutes (>than 50% of time spent in counselling and/or direct pt care on unit). Coding Level of Care Code Acute Code for Chg Fwd Diagnoses Acute kidney injury superimposed on CKD N17.9; N18.9
[2024-07-01] MEDS: ergocalciferol (vitamin D2) 50,000 Unit Capsule 50000 UNIT PO (09:48)
--- NOTE | 2024-07-01 10:00 | P.PN_ITS ---
Subjective 2 Subjective: No chest pain. Improved urine output. Vitals/I&O/Wt Last Vital Signs Temp 97.1 F L 06/30/24 00:15 Pulse 66 07/01/24 06:00 Resp 18 07/01/24 02:00 BP 139/75 07/01/24 02:00 Pulse Ox 96 07/01/24 02:00 O2 Del Method Nasal Cannula 06/30/24 08:50 O2 Flow Rate 4 06/30/24 08:50 FiO2 50 06/30/24 03:47 06/30/24 07/01/24 07/01/24 22:59 06:59 14:59 Intake Total 574 / 2429 100 / 2529 120 / 120 Output Total 1571994 350 / 2345 175 / 175 Balance -996 / 434 -250 / 184 -55 / -55 Weight last 48 hrs Weight 232 lb 9.403 oz Weight 232 lb Weight 232 lb 12.93 oz Weight 225 lb Physical Exam 2 Narrative: GENERAL: Patient is alert, awake and oriented x3. [] NECK: No jugular vein distension. [] HEENT: No cyanosis. No icterus. No pallor. [] HEART: Tachycardia LUNGS: Bilateral crackles CENTRAL NERVOUS SYSTEM: Grossly nonfocal. [] EXTREMITIES: Lower extremities with 2+ edema bilaterally. Data 07/01/24 05:48 07/01/24 05:48 A&P Assessment and plan (1) STEMI (ST elevation myocardial infarction): (2) Hypertension: Qualifiers: Hypertension type: primary hypertension Qualified Code(s): I10 - Essential (primary) hypertension (3) Hyperlipidemia: Qualifiers: Hyperlipidemia type: mixed hyperlipidemia Qualified Code(s): E78.2 - Mixed hyperlipidemia (4) Acute on chronic congestive heart failure: (5) Diabetes type 2 with atherosclerosis of arteries of extremities: (6) Acute kidney injury superimposed on CKD: Plan The patient underwent successful revascularization of proximal to mid LAD with 2 stents Creatinine worsening however had better urine output. Continue lasix. Appreciate nephrology recommendations. May require dialysis if urine output decreases EF is unchanged at 35-40%. Low dose metoprolol. Hold ARNI/ACEi secondary to REGINO on CKD. Medicine team on board for medical management of diabetes and other medical issues. Attestations 2 Medical Necessity Statement*: Care expected to cross 2 midnights. Coding Level of Care Code Acute Code for Chg Fwd Diagnoses STEMI (ST elevation myocardial infarction) I21.3 Primary hypertension I10 Hypertension type: primary hypertension Mixed hyperlipidemia E78.2 Hyperlipidemia type: mixed hyperlipidemia Acute on chronic congestive heart failure I50.9 Diabetes type 2 with atherosclerosis of arteries of extremities E11.51; I70.209 Acute kidney injury superimposed on CKD N17.9; N18.9
[2024-07-01] MEDS: perflutren protein-a microsphr 0.22 mg/mL SDV 3 mL IV (10:33)
[2024-07-01 11:38] LABS: Glucose Point of Care 259 mg/dL (70-110)
[2024-07-01] MEDS: insulin lispro 100 unit/1 mL SUBCUT ×2 (11:40→20:42)
[2024-07-01 16:56] LABS: Glucose Point of Care 217 mg/dL (70-110)
--- NOTE | 2024-07-01 17:00 | PC.NURSE ---
Patient refused evening insulin.
[2024-07-01] MEDS: FUROsemide 10 mg/mL SDV 2mL 20 MG IVP (17:04)
--- NOTE | 2024-07-01 17:22 | XRR_ITS ---
PROCEDURE INFORMATION: Exam: XR Chest Exam date and time: 07/01/2024 5:58 PM Age: 64 years old Clinical indication: Shortness of breath; Prior surgery; Surgery date: 3-7 days post-operative; Surgery type: Cardiac stents; Additional info: SOB TECHNIQUE: Imaging protocol: Radiologic exam of the chest. Views: 1 view. COMPARISON: [place] [id number] 07/01/2024 9:06 AM FINDINGS: Lungs: [id number] vascular congestion. Pleural spaces: Large bilateral pleural effusions and bibasilar atelectasis as demonstrated on the CT obtained earlier the same day Heart/Mediastinum: Cardiac silhouette is largely obscured by the pleural effusions no superior mediastinal widening. Central trachea Bones/joints: Unremarkable. XR/XR chest 1V portable [id number] IMPRESSION: 1. Zzwqmape-gf-gehqi pleural effusions, right greater than left with underlying basilar atelectasis, increased from 06/29/2024 radiograph and unchanged from CT earlier today. 2. Mild vascular congestion. Obscured cardiac silhouette
[2024-07-01 17:35] LABS: ABG PCO2 38.2 mmHg (35-45); ABG PH Result 7.39 (7.35-7.45); Alveolar-Arterial Oxygen Gradi 4.3 mmHg (5-10); Arterial Blood Gas Hematocrit 30.9 % (42-52); Base Excess ABG -1.7 mmol/L (-2.0-2.0); Blood Gas Allen Test Pos; Blood Gas Sample Type Arterial; Carboxyhemoglobin 1.2 %THgb (0.4-20.1); HGB O2 Sat 90.4 % (95-100); Ionized Calcium Level - ABG 1.1 mmol/L (1.1-1.4); Methemoglobin 1.2 % (0.4-1.5); Oxygen Saturation ABG 92.6; PO2 ABG 67.2 mmHg (80.0-100.0); Potassium Level - ABG 4.9 mmol/L (3.5-5.0); Total Hemoglobin 10.1 g/dL (14-18)
[2024-07-01 17:37] LABS: Blood Gas Operator Identificat BROMA; Blood Gas Sample Site Radial, left
--- NOTE | 2024-07-01 18:34 | ECG_ITS ---
[facility] [place] [facility]: 2024-07[facility]01 Pat Name: Cam Trinh Department: Room: ICU10 Gender: Male Seam Presser: : 1960 Requested By: Juany Davey Order Number: [id number] Gavi MD: Jeffry Pugh M.D. Measurements Intervals Elizabeth Rate: 72 P: 192 IA: 122 QRS: 213 QRSD: 121 T: 74 QT: 386 QTc: 422 Interpretive Statements ECTOPIC ATRIAL RHYTHM POSSIBLE RIGHT VENTRICULAR HYPERTROPHY [SOME/ALL OF: PROMINENT R IN V1, LATE TRANSITION, RAD, LELA, SSS] ANTEROLATERAL MYOCARDIAL INFARCTION , OF INDETERMINATE AGE [40+ ms Q WAVE IN I/aVL/V3-V6] Compared to ECG 06/29/2024 20:23:20 Ectopic atrial rhythm now present Sinus rhythm no longer present Left-axis deviation no longer present Myocardial infarct finding still present Electronically Signed On 07-02-2024 17:13:35 [employer]IL EXP[employer] by Jeffry Pugh M.D. [email or web address]
--- NOTE | 2024-07-01 18:37 | PC.NURSE ---
Pt reported to this nurse that he felt generally unwell and short of breath. This nurse could see patient was also diaphoretic. Dr. Davey called. New orders recieved.
--- NOTE | 2024-07-01 19:28 | USR_ITS ---
PROCEDURE INFORMATION: Exam: US Retroperitoneal, Complete, Kidneys and Bladder Exam date and time: 07/01/2024 9:27 AM Age: 64 years old Clinical indication: Condition or disease; Other: Roque TECHNIQUE: Imaging protocol: Real-time ultrasound of the retroperitoneum with image documentation. Complete exam focused on the bilateral kidneys and urinary bladder. COMPARISON: US renal BI* [id number] 09/09/2023 1:55 AM FINDINGS: Right kidney: No stones. No hydronephrosis. No perinephric fluid. No mass. Right kidney measures 11.6 cm in length. 0.7 x 0.9 x 0.8 cm simple cyst midpole right kidney. Echotexture is appropriate. Left kidney: Left kidney measures 11.6 cm in length. No mass. No perinephric fluid. No stones. No hydronephrosis. 1.5 x 0.9 x 1.4 cm simple cyst lower pole left kidney. Echotexture is appropriate. Urinary bladder: The bladder is minimally distended. The wall is very thick and heterogeneous with a lobulated contour compatible with chronic outlet obstruction with lack of distension, cystitis or neurogenic bladder. There is an irregular echogenic filling defect or mass in the lumen of the urinary bladder may reflect a true mass/neoplasm or blood clot. US/US renal BI* [id number] IMPRESSION: 1. Unremarkable kidneys. 2. The wall is very thick and heterogeneous with a lobulated contour compatible with chronic outlet obstruction with lack of distension, cystitis or neurogenic bladder. 3. There is an irregular echogenic filling defect or mass in the lumen of the urinary bladder may reflect a true mass/neoplasm or blood clot.
[2024-07-01] MEDS: atorvastatin 40 mg Tablet 80 MG PO (20:21)
[2024-07-01 20:55] LABS: Glucose Point of Care 264 mg/dL (70-110)
[2024-07-01 21:04] LABS: Troponin T (5th) Once 2056 ng/L (0-15)
--- NOTE | 2024-07-01 22:33 | USCV_ITS ---
Cam Trinh Age: 64 Gender: M : 1960 Exam Date: 07/01/2024 10:09 Ordering Phys: Washington Tilley M.D ([email or web address]) Technologist: Jak Freire Exam Location: [facility] [place] Indication: RULE OUT LV THROMBUS BP: 139 / 75 HR: Rhythm: Sinus Technical Quality: Adequate MEASUREMENTS (Male / Female) Normal Values 2D ECHO LV Diastolic Diameter PLAX 4.4 cm 4.2 - 5.9 / 3.9 - 5.3 cm IVS Diastolic Thickness 1.2 cm 0.6 - 1.0 / 0.6 - 0.9 cm IVS Systolic Thickness 1.3 cm LVPW Diastolic Thickness 2.6 cm 0.6 - 1.0 / 0.6 - 0.9 cm LVPW Systolic Thickness 2.4 cm LVOT Diameter 2.0 cm LV Ejection Fraction 2D Teich 30.8 % LV Ejection Fraction MOD 4C 48.1 % LV Ejection Fraction MOD 2C 41.9 % LV Ejection Fraction 2C AL 42.6 % LA Diameter 3.7 cm RA Systolic Volume 4C AL 45.0 ml RA Systolic Volume 4C MOD 43.4 ml Aorta at Sinotubular Diameter 2.3 cm IVC Diameter 1.7 cm M-MODE LA Ao Ratio MM 0.7 AV Cusp Separation MM 1.4 cm FINDINGS Left Ventricle Right Ventricle Right Atrium Left Atrium Mitral Valve Aortic Valve Tricuspid Valve Pulmonic Valve Pericardium Aorta IVC CONCLUSIONS This is a limited echocardiogram performed to rule out LV thrombus . LV systolic function is moderately reduced with EF of 35-40%. Moderate global hypokinesis. No LV thrombus seen Washington Tilley MD (Electronically Signed) Final Date: 01 July 2024 11:35 S
[2024-07-02] VITALS (27 sets, daily range): BP systolic 113–175; BP diastolic 61–108; PULSE 58–84; RESP 17–29; O2SAT 94–100
[2024-07-02 05:55] LABS: Basophils # 0.1 10^3/uL (0.0-0.1); Basophils % 0.6 %; Eosinophils # 0.1 10^3/uL (0.0-0.8); Eosinophils % 0.6 %; Hematocrit 28.6 % (37-53); Lymphocytes # 1.8 10^3/uL (0.8-4.8); Lymphocytes % 19.6 %; Mean Corpuscular HGB Conc 31.5 g/dL (30-55); Mean Corpuscular Hemoglobin 27.7 pg (27-33); Mean Platelet Volume 10.5 fL (7.4-10.4); Monocytes # 0.7 10^3/uL (0.2-0.9); Monocytes % 7.5 %; Neutrophils # 6.69 10^3/uL (1.8-7.7); Neutrophils % 71.3 %; Nucleated Red Blood Cells % 0 %; Platelet Count 307 10^3/cmm (157-399); Red Blood Count 3.25 10^6/uL (3.85-5.65); Red Cell Distribution Width 14.8 % (12.1-15.1); White Blood Count 9.39 10^3/uL (3.29-11.43)
[2024-07-02] MEDS: FUROsemide 10 mg/mL SDV 2mL 20 MG IVP (06:04)
[2024-07-02 06:07] LABS: Alanine Aminotransferase 17 U/L (0-41); Alkaline Phosphatase 121 U/L (40-130); Aspartate Amino Transferase 19 U/L (0-40); Blood Urea Nitrogen 77 mg/dL (8-23); Calcium 8.5 mg/dL (8.5-10.5); Carbon Dioxide 24 mmol/L (22-29); Creatinine Clr Calc Pharmacy 15.0827; Globulin 3.3 g/dL (1.3-4.6); Glomerular Filtration Rate 9.5 mL/min (90-130); Glucose 168 mg/dL (65-115); Magnesium 2.2 mg/dL (1.7-2.3); Phosphorus 6.2 mg/dL (2.5-4.5); Total Bilirubin 0.2 mg/dL (0.15-1.2); Total Protein 6.3 g/dL (6.6-8.7)
[2024-07-02 06:33] LABS: Anion Gap 17.1 (5-19); Chloride 101 mmol/L (98-107); Osmolality Calculated 311 mOsm/kg (285-295); Potassium 5.1 mmol/L (3.5-5.1); Sodium 137 mmol/L (136-145)
[2024-07-02] MEDS: enoxaparin 30 mg/0.3 mL Syringe SUBCUT (07:27)
[2024-07-02] MEDS: metoprolol tartrate 50 mg Tablet PO ×2 (07:28→21:54)
[2024-07-02] MEDS: insulin lispro 100 unit/1 mL SUBCUT ×2 (07:28→12:21)
[2024-07-02] MEDS: sennosides-docusate Tablet 1 TAB PO (07:28)
[2024-07-02] MEDS: aspirin 81 mg EC Tablet PO (07:28)
[2024-07-02] MEDS: clopidogrel 75 mg Tablet PO (07:28)
--- NOTE | 2024-07-02 09:38 | P.PN_ITS ---
<Statement entered by Washington Tilley M.D - 07/02/24 19:16> Patient was evaluated and cared for in conjunction with an advanced practice practitioner. I personally examined the patient and reviewed the chart and all pertinent data including imaging, telemetry, and laboratory results. I discussed the patient in detail with the advanced practice practitioner. Please see their note for complete progress note, results and agreed upon plan of care for the patient. Patient has on and off shortness of breath. Creatinine has worsened. GENERAL: Patient is alert and oriented HEART: Regular S1 and S2 LUNGS: Diminished air entry bilaterally EXTREMITIES: Lower extremities with 2+ edema ASSESSMENT AND PLAN: (1) CHF (congestive heart failure) (2) NSTEMI (non-ST elevated myocardial infarction) (3) Hypertension Patient has significant pleural effusions. Will benefit from thoracentesis. Also plans for dialysis Continue aspirin, plavix, statin and beta kimani Appreciated hospitalist team and nephrology input Subjective 2 Subjective: Patient feeling short of breath, no chest pain. Creatinine up to 6.0 today. Blood pressure controlled. Vitals/I&O/Wt Last Vital Signs Temp 98.0 F 07/01/24 04:00 Pulse 66 07/02/24 05:59 Resp 19 H 07/02/24 04:00 BP 136/88 07/02/24 04:00 Pulse Ox 100 07/02/24 04:00 O2 Del Method Nasal Cannula 06/30/24 08:50 O2 Flow Rate 4 06/30/24 08:50 FiO2 50 07/02/24 00:00 07/01/24 07/02/24 07/02/24 22:59 06:59 14:59 Intake Total 231 / 231 Output Total 225 / 400 Balance -225 / -160 231 / 231 Weight last 48 hrs Weight 238 lb 3.2 oz Weight 232 lb 9.403 oz Physical Exam 2 Const: COMMON NORMALS: no acute distress and patient oriented x3 GENERAL APPEARANCE: cooperative and comfortable ORIENTATION/CONSCIOUSNESS: Yes awake, Yes oriented to person, Yes oriented to place and Yes oriented to time Chest: COMMONS NORMALS: normal inspection of the chest and normal palpation of entire chest wall CHEST: Yes Symmetrical chest wall rise Resp: COMMON NORMALS: normal respiratory effort, No retractions and No use of accessory muscles EFFORT & INSPECTION: Yes symmetric chest movement A USCULTATION: diminished lung sounds bilateral (bases) Cardio: COMMON NORMALS: regular rate, regular rhythm, S1 normal heart sound present, S2 normal heart sound present, No gallops present (Cardio), No clicks present (Cardio), No murmurs present (Cardio) and No rub (Cardio) RATE: r egular rate RHYTHM: regular rhythm HEART SOUNDS: S1 normal heart sound present and S2 normal heart sound present PERIPHERAL PULSES: radial pulses present Extremity: GENERAL: Yes edema (1-2 + pitting edema bilateral LE) Neuro: COMMON NORMALS: patient oriented x3 and moves all extremities S ENSORIUM/ORIENTATION: Yes oriented to person, Yes oriented to place and Yes oriented to time Data 07/02/24 05:13 07/02/24 05:13 A&P Assessment and plan (1) CHF (congestive heart failure): Qualifiers: Heart failure type: combined systolic and diastolic Heart failure chronicity: acute on chronic Qualified Code(s): I50.43 - Acute on chronic combined systolic (congestive) and diastolic (congestive) heart failure (2) NSTEMI (non-ST elevated myocardial infarction): (3) Hypertension: Qualifiers: Hypertension type: primary hypertension Qualified Code(s): I10 - Essential (primary) hypertension Plan Per nephrology recommendations, plan for dialysis today. Continue metoprolol, aspirin and Plavix. He has notable pleural effusions, plan is for thoracentesis to improve symptoms of shortness of breath. Attestations 2 Medical Necessity Statement*: Per hospitalist team Coding Level of Care Code Acute Code for Chg Fwd Diagnoses Acute on chronic combined systolic and diastolic congestive heart failure I50.43 Heart failure type: combined systolic and diastolic Heart failure chronicity: acute on chronic NSTEMI (non-ST elevated myocardial infarction) I21.4 Primary hypertension I10 Hypertension type: primary hypertension
[2024-07-02] MEDS: FUROsemide 10 mg/mL SDV 10mL 80 MG IVP ×2 (10:31→21:56)
--- NOTE | 2024-07-02 10:32 | P.PN_ITS ---
Subjective 2 Subjective: last night had resp distress. feels better now. is oliguric. denies nausea/ rudolph/cp/sob Medications: Reviewed: Yes Medication Review Details: Current Medications Acetaminophen (Acetaminophen 325 Mg Tablet) 650 mg PO Q6H PRN PRN Reason: MILD PAIN Acetaminophen (Acetaminophen 500 Mg Tablet) 500 mg PO Q4H PRN PRN Reason: fever Albuterol/Ipratropium (Ipratropium-Albuterol 3 Ml Neb) 3 ml INHALATION Q6H PRN PRN Reason: SHORTNESS OF BREATH Alprazolam (Alprazolam 0.5 Mg Tablet) 0.25 mg PO TID PRN PRN Reason: ANXIETY Aspirin (Aspirin 81 Mg Ec Tablet) 81 mg PO DAILY [facility] Last Admin: 07/02/24 07:28 Dose: 81 mg Atorvastatin Calcium (Atorvastatin 40 Mg Tablet) 80 mg PO BEDTIME [facility] Last Admin: 07/01/24 20:21 Dose: 80 mg Atropine Sulfate (Atropine 1 Mg/Ml Sdv 1 Ml) 0.5 mg IVP PRN PRN PRN Reason: Symptomatic bradycardia Clopidogrel Bisulfate (Clopidogrel 75 Mg Tablet) 75 mg PO DAILY [facility] Last Admin: 07/02/24 07:28 Dose: 75 mg Enoxaparin Sodium (Enoxaparin 30 Mg/0.3 Ml Syringe) 30 mg SUBCUT Q24H [facility] Last Admin: 07/02/24 07:27 Dose: 30 mg Ergocalciferol (Ergocalciferol (Vitamin D2) 50,000 Unit Capsule) 50,000 unit PO Q7D [facility] Last Admin: 07/01/24 09:48 Dose: 50,000 unit Fentanyl (Fentanyl 50 Mcg/Ml Inj 2ml) 50 mcg IVP PRN PRN PRN Reason: Pain Furosemide (Furosemide 10 Mg/Ml Sdv 10ml) 80 mg IVP Q12H [facility] Last Admin: 07/02/24 10:31 Dose: 80 mg Glucagon (Glucagon 1 Mg/Ml Kit 1 Ml) 1 mg IM ONCE PRN; Protocol PRN Reason: Adult Acute Hypoglycemia Nursing Prot. Norepinephrine Bitartrate (Levophed) 4 mg in 250 mls @ 0 mls/hr IV .Q0M [facility]; Protocol Dextrose (D5w) 500 mls @ 0 mls/hr IV ONCE PRN; Protocol PRN Reason: Adult Acute Hypoglycemia Prot Dextrose (D10w) 125 mls @ 750 mls/hr IV PRN PRN; Protocol PRN Reason: Adult Acute Hypoglycemia Nursing Protocol Dextrose (D10w) 250 mls @ 1,000 mls/hr IV PRN PRN; Protocol PRN Reason: Adult Acute Hypoglycemia Nursing Protocol Insulin Human Lispro (Insulin Lispro 100 Unit/1 Ml) 0 unit SUBCUT WM&BEDTIME [facility]; Protocol Last Admin: 07/02/24 07:33 Dose: Not Given Magnesium Hydroxide (Magnesium Hydroxide 30 Ml Udc) 30 ml PO DAILY PRN PRN Reason: CONSTIPATION Metoprolol Tartrate (Metoprolol Tartrate 50 Mg Tablet) 50 mg PO BID@0900,2100 [facility] Last Admin: 07/02/24 07:28 Dose: 50 mg Morphine Sulfate (Morphine Ir 15 Mg Tablet) 15 mg PO Q6H PRN PRN Reason: MODERATE PAIN Naloxone HCl (Naloxone 0.4 Mg/Ml Sdv) 0.1 mg IVP Q2M PRN PRN Reason: RESPIRATORY RATE < 8/MIN Nitroglycerin (Nitroglycerin 0.4 Mg Sublingual Tablet) 0.4 mg SUBLINGUAL Q5M PRN PRN Reason: CHEST PAIN Ondansetron HCl (Ondansetron 2 Mg/Ml Sdv 2 Ml) 4 mg IVP Q6H PRN PRN Reason: NAUSEA AND VOMITING Last Admin: 06/30/24 21:16 Dose: 4 mg Senna/Docusate Sodium (Sennosides-Docusate Tablet) 1 tab PO DAILY [facility] Last Admin: 07/02/24 07:28 Dose: 1 tab Temazepam (Temazepam 15 Mg Capsule) 15 mg PO BEDTIME PRN PRN Reason: INSOMNIA Vitals/I&O/Wt Last Vital Signs Temp 98.0 F 07/01/24 04:00 Pulse 67 07/02/24 10:08 Resp 18 07/02/24 10:08 BP 136/88 07/02/24 04:00 Pulse Ox 97 07/02/24 10:08 O2 Del Method Nasal Cannula 07/02/24 10:08 O2 Flow Rate 3 07/02/24 10:08 FiO2 50 07/02/24 00:00 07/01/24 07/02/24 07/02/24 22:59 06:59 14:59 Intake Total 231 / 231 Output Total 225 / 400 Balance -225 / -160 231 / 231 Weight last 48 hrs Weight 108.046 kg Weight 105.5 kg Physical Exam 2 Narrative: VS noted- on nc 02 heent- nc/at neck supple, no jvp lungs b/l dull bases heart reg, + s1, s2 abd soft, nt, nd, + bs ext + b/l edema 1+ neuro- responsive and interactive,a,a,o x 3, from x4, no asterexis Data 07/02/24 05:13 07/02/24 05:13 CT Chest: My impression: b/l effusions Radiologist's impression: 1. Hcdntbmx-zh-yvjau pleural effusions, right greater than left with underlying basilar atelectasis, increased from 06/29/2024 radiograph and unchanged from CT earlier today. 2. Mild vascular congestion. Obscured cardiac silhouette A&P Assessment and plan (1) Acute kidney injury superimposed on CKD: 64 yr old man obesity, htn, type 2 dm, HFrEF 1. CKD stage 3b- cr 1.7- 2 mg/dl in August 2023- at that time 3+ ur protein Renal us in August 2023- rt 11.2 cm, left 12.3 cm- read as normal renal us 2. STEMI- w/ medical lab tech instructor x 2- echo w/ EF of 35-40% 3. EFFUSIONS- LASIX AND CONSIDER THORACENTESIS 4. REGINO on CKD- admission cr was 3.8 mg/dl given cxr w/ Pulm granuloma- please test for m. tb and sarcoid -u/a w/ 4+ protein, 2+ gluc, random microalb >581, microalb/ cr 8544 ur na 48, ur cl 52 -cr guadalupe to 6- now contrast induced REGINO -oliguric- give lasix and if no improvement- consider dialysis -pt consents to dialysis if needed -normal c3 and c4 ck 296- not causing REGINO 5. renal us- there is no hydronephrosis - The wall is very thick and heterogeneous with a lobulated contour compatible with chronic outlet obstruction with lack of distension, cystitis or neurogenic bladder. - There is an irregular echogenic filling defect or mass in the lumen of the urinary bladder may reflect a true mass/neoplasm or blood clot. -HE NEEDS UROLOGY EVLUATION 6. anemia- hgb stable- t sat 20%, ferritin 419- hgb 9 check spep, sife, serologies all 7. renal bone mineral metabolism- phos 6, vit d 25, pth 242- repelate vit d. monitor phos may need a binder soon -repeat pth in a month seen and examined with RN using A/V equipment w/ the AIDE of the RN he consents to telehealth and HD as needed Plan see above Attestations 2 Medical Necessity Statement*: AMI, REGINO , HFrEF Time Spent in Patient Care: Greater than 35 minutes (>than 50% of time spent in counselling and/or direct pt care on unit) . Coding Level of Care Code Acute Code for Chg Fwd Diagnoses Acute kidney injury superimposed on CKD N17.9; N18.9
[2024-07-02 13:15] LABS: INR 0.94 (0.8-1.2)
[2024-07-02 13:42] LABS: Hepatitis B Surface AB < 3.5 (11.5-1000); Hepatitis B Surface Antigen Non-Reactive (Nonreactive); Hepatitis C Virus Antibody Non-Reactive (Nonreactive)
--- NOTE | 2024-07-02 14:30 | PC.SOCIAL ---
IMM updated IMM dated and initialed, copy given to patient and copy placed in chart.
--- NOTE | 2024-07-02 14:50 | PM.PN ---
Subjective Subjective: Creatinine worsening at 6.0. Continues to be short of breath. Thoracentesis ordered but likely would be done tomorrow. Starting dialysis today. Medications: Reviewed: Yes Medication Review Details: Current Medications Acetaminophen (Acetaminophen 325 Mg Tablet) 650 mg PO Q6H PRN PRN Reason: MILD PAIN Acetaminophen (Acetaminophen 500 Mg Tablet) 500 mg PO Q4H PRN PRN Reason: fever Albuterol/Ipratropium (Ipratropium-Albuterol 3 Ml Neb) 3 ml INHALATION Q6H PRN PRN Reason: SHORTNESS OF BREATH Alprazolam (Alprazolam 0.5 Mg Tablet) 0.25 mg PO TID PRN PRN Reason: ANXIETY Aspirin (Aspirin 81 Mg Ec Tablet) 81 mg PO DAILY [facility] Last Admin: 07/02/24 07:28 Dose: 81 mg Atorvastatin Calcium (Atorvastatin 40 Mg Tablet) 80 mg PO BEDTIME [facility] Last Admin: 07/01/24 20:21 Dose: 80 mg Atropine Sulfate (Atropine 1 Mg/Ml Sdv 1 Ml) 0.5 mg IVP PRN PRN PRN Reason: Symptomatic bradycardia Clopidogrel Bisulfate (Clopidogrel 75 Mg Tablet) 75 mg PO DAILY [facility] Last Admin: 07/02/24 07:28 Dose: 75 mg Enoxaparin Sodium (Enoxaparin 30 Mg/0.3 Ml Syringe) 30 mg SUBCUT Q24H [facility] Last Admin: 07/02/24 07:27 Dose: 30 mg Ergocalciferol (Ergocalciferol (Vitamin D2) 50,000 Unit Capsule) 50,000 unit PO Q7D [facility] Last Admin: 07/01/24 09:48 Dose: 50,000 unit Fentanyl (Fentanyl 50 Mcg/Ml Inj 2ml) 50 mcg IVP PRN PRN PRN Reason: Pain Furosemide (Furosemide 10 Mg/Ml Sdv 10ml) 80 mg IVP Q12H [facility] Last Admin: 07/02/24 10:31 Dose: 80 mg Glucagon (Glucagon 1 Mg/Ml Kit 1 Ml) 1 mg IM ONCE PRN; Protocol PRN Reason: Adult Acute Hypoglycemia Nursing Prot. Norepinephrine Bitartrate (Levophed) 4 mg in 250 mls @ 0 mls/hr IV .Q0M [facility]; Protocol Dextrose (D5w) 500 mls @ 0 mls/hr IV ONCE PRN; Protocol PRN Reason: Adult Acute Hypoglycemia Prot Dextrose (D10w) 125 mls @ 750 mls/hr IV PRN PRN; Protocol PRN Reason: Adult Acute Hypoglycemia Nursing Protocol Dextrose (D10w) 250 mls @ 1,000 mls/hr IV PRN PRN; Protocol PRN Reason: Adult Acute Hypoglycemia Nursing Protocol Insulin Human Lispro (Insulin Lispro 100 Unit/1 Ml) 0 unit SUBCUT WM&BEDTIME [facility]; Protocol Last Admin: 07/02/24 07:33 Dose: Not Given Magnesium Hydroxide (Magnesium Hydroxide 30 Ml Udc) 30 ml PO DAILY PRN PRN Reason: CONSTIPATION Metoprolol Tartrate (Metoprolol Tartrate 50 Mg Tablet) 50 mg PO BID@0900,2100 [facility] Last Admin: 07/02/24 07:28 Dose: 50 mg Morphine Sulfate (Morphine Ir 15 Mg Tablet) 15 mg PO Q6H PRN PRN Reason: MODERATE PAIN Naloxone HCl (Naloxone 0.4 Mg/Ml Sdv) 0.1 mg IVP Q2M PRN PRN Reason: RESPIRATORY RATE < 8/MIN Nitroglycerin (Nitroglycerin 0.4 Mg Sublingual Tablet) 0.4 mg SUBLINGUAL Q5M PRN PRN Reason: CHEST PAIN Ondansetron HCl (Ondansetron 2 Mg/Ml Sdv 2 Ml) 4 mg IVP Q6H PRN PRN Reason: NAUSEA AND VOMITING Last Admin: 06/30/24 21:16 Dose: 4 mg Senna/Docusate Sodium (Sennosides-Docusate Tablet) 1 tab PO DAILY [facility] Last Admin: 07/02/24 07:28 Dose: 1 tab Temazepam (Temazepam 15 Mg Capsule) 15 mg PO BEDTIME PRN PRN Reason: INSOMNIA Vitals/I&O/Wt Last Vital Signs Temp 98.0 F 07/01/24 04:00 Pulse 67 07/02/24 10:08 Resp 18 07/02/24 10:08 BP 136/88 07/02/24 04:00 Pulse Ox 97 07/02/24 10:08 O2 Del Method Nasal Cannula 07/02/24 10:08 O2 Flow Rate 3 07/02/24 10:08 FiO2 50 07/02/24 00:00 07/01/24 07/02/24 07/02/24 22:59 06:59 14:59 Intake Total 471 / 471 Output Total 225 / 400 Balance -225 / -160 471 / 471 Weight last 48 hrs Weight 108.046 kg Weight 105.5 kg Physical Exam Narrative: General: Tachypneic in conversation, unable to complete full sentences. HEENT: PERRLA, pupils bilaterally equal and reactive, pallors not present Chest: Reduced air entry bilaterally CVS: S1-S2 regular, no murmurs, no tachycardia, no gallops, no rubs Abdomen: Soft, nontender, no organomegaly, bowel sounds present Neuro: No focal deficits, no facial deformity, AO x3, power 5/5 in all limbs Extremities: Lateral lower extremity pitting edema, patient states this is improved compared to prior exam. Data 07/02/24 05:13 07/02/24 05:13 A&P Assessment and plan (1) CHF (congestive heart failure): Qualifiers: Heart failure type: combined systolic and diastolic Heart failure chronicity: acute on chronic Qualified Code(s): I50.43 - Acute on chronic combined systolic (congestive) and diastolic (congestive) heart failure (2) Poor compliance: (3) Acute on chronic congestive heart failure: (4) STEMI (ST elevation myocardial infarction): (5) Hyperlipidemia: Qualifiers: Hyperlipidemia type: mixed hyperlipidemia Qualified Code(s): E78.2 - Mixed hyperlipidemia (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: (7) REGINO (acute kidney injury): (8) Sciatica: (9) Neuropathy, diabetic: Plan STEMI Status post LAD 2 stents Continue dual antiplatelet therapy along statins Patient has been weaned off Levophed Echo report to be followed Acute systolic CHF exacerbation Currently on IV diuretic regimen along BiPAP Hansen catheter refused by the patient, stating that he would like to use urinal Type II diabetic with complications related to neuropathy Continue insulin sliding scale Cardiac consistent carb diet Pulm edema: I have requested BiPAP overnight patient is agreeable DVT prophylaxis: Heparin Will follow along cardiology Full code 06/30/2024 -Patient is status post 2 stents ? Contrast-induced nephropathy versus combination of cardiorenal plus contrast-induced worsening: Creatinine 4.0. ? Consult nephrology. Await recommendations ? Continue insulin sliding scale ? Continue on Lasix 20 IV twice daily patient is fluid overload intermittently diuresis. ? Continue aspirin Plavix atorvastatin ? Medicine will continue to follow along. ? Patient has refused Hansen catheter. 07/01/2024 -Continue Lasix drip at this time. ? Urine output 300 cc overnight. ? Creatinine is worsening. Nephrology following. ? Continue aspirin Plavix atorvastatin ? CT chest abdomen pelvis pending at this time to evaluate for granuloma and because of renal failure ? Renal ultrasound also pending at this time ? Medicine will continue to follow July 02, 2023 Creatinine trending up to 6, remains oliguric. Starting dialysis today. Recommend consulting surgery for placement of HD catheter. Thoracentesis would likely help benefit the patient. Patient states he has previously had thoracentesis in August 2023. He states he was told the He states he has had multiple admissions in the past year related to heart failure however has not needed thoracentesis since August. Thoracentesis and pleural fluid analysis ordered. Diuresis per primary cardiology team Attestations Medical Necessity Statement*: starting HD, planned thoracentesis Coding Level of Care Code Acute Code for Chg Fwd High MDM includes number and complexity of problems actively addressed during encounter, amount and/or complexity of data reviewed/ordered and described risk of complication, morbidity or mortality of management as documented Diagnoses Acute on chronic combined systolic and diastolic congestive heart failure I50.43 Heart failure type: combined systolic and diastolic Heart failure chronicity: acute on chronic Poor compliance Z91.199 Acute on chronic congestive heart failure I50.9 STEMI (ST elevation myocardial infarction) I21.3 Mixed hyperlipidemia E78.2 Hyperlipidemia type: mixed hyperlipidemia 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
--- NOTE | 2024-07-02 15:38 | P.CONIM_ITS ---
Providers/Reason For Consult 2 Consulting Physician/Specialty*: Dr. Simms general surgery Reason for Consult*: Dialysis catheter placement Attending Physician: Washington Tilley M.D Primary Care Provider: Ezio Leahy History of Present Illness History of Present Illness Cam Trinh is a 64 year old male acute renal failure whom surgery was consulted to place in the dialysis catheter. Nephrology on board with HD. Medications/Allergies Home Medications Medication Instructions Recorded Confirmed Last Taken Type aspirin 81 mg tablet,delayed 81 mg PO DAILY #60 tabs 06/22/22 06/30/24 06/29/24 Rx release flash glucose scanning reader #1 ea 09/07/23 06/30/24 Unknown Rx (FreeStyle Igor 14 Day [place]) flash glucose sensor (FreeStyle #1 ea 09/07/23 06/30/24 Unknown Rx Igor 14 Day Sensor kit) acetaminophen 500 mg tablet 1,000 mg PO Q6H PRN Pain 09/08/23 06/30/24 Unknown History empagliflozin 25 mg tablet 25 mg PO DAILY #30 tabs 09/13/23 06/30/24 Unknown Rx (Jardiance) hydralazine 50 mg tablet 50 mg PO TID #90 tabs 09/28/23 06/30/24 06/29/24 Rx clopidogrel 75 mg tablet 75 mg PO DAILY #90 tabs 11/08/23 06/30/24 06/29/24 Rx insulin glargine 100 unit/mL (3 20 unit (0.2 mL) SUBCUT BID #15 mL 11/08/23 06/30/24 06/29/24 Rx mL) subcutaneous pen (Lantus Solostar U-100 Insulin) metformin 500 mg tablet 500 mg PO BID #180 tabs 11/08/23 06/30/24 Unknown Rx potassium chloride 20 mEq 20 meq PO DAILY #90 tabs 11/08/23 06/30/24 06/29/24 Rx tablet,extended release atorvastatin 80 mg tablet 80 mg PO BEDTIME 06/30/24 06/30/24 06/29/24 History insulin glargine 100 unit/mL (3 25 unit SUBCUT BEDTIME 06/30/24 06/30/24 06/28/24 History mL) subcutaneous pen (Lantus Solostar U-100 Insulin) isosorbide mononitrate 30 mg 60 mg PO DAILY 06/30/24 06/30/24 06/29/24 History tablet,extended release 24 hr metoprolol succinate 25 mg 25 mg PO DAILY 06/30/24 06/30/24 06/29/24 History tablet,extended release 24 hr torsemide 20 mg tablet 20 mg PO BID 06/30/24 06/30/24 06/29/24 History Allergies Allergy/AdvReac Type Severity Reaction Status Date / Time No Known Allergies Allergy Verified 11/08/23 09:21 Current Medications Generic Name Dose Route Start Last Admin Trade Name Freq PRN Reason Stop Dose Admin Aspirin 81 mg 06/30/24 09:00 07/02/24 07:28 Aspirin 81 Mg Ec Tablet PO 81 mg DAILY [facility] Administration Atorvastatin Calcium 80 mg 06/30/24 21:00 07/01/24 20:21 Atorvastatin 40 Mg Tablet PO 80 mg BEDTIME [facility] Administration Clopidogrel Bisulfate 75 mg 06/30/24 09:00 07/02/24 07:28 Clopidogrel 75 Mg Tablet PO 75 mg DAILY [facility] Administration Enoxaparin Sodium 30 mg 07/02/24 09:00 07/02/24 07:27 Enoxaparin 30 Mg/0.3 Ml Syringe SUBCUT 30 mg Q24H [facility] Administration Ergocalciferol 50,000 unit 07/01/24 09:45 07/01/24 09:48 Ergocalciferol (Vitamin D2) 50,000 Unit Capsule PO 50,000 unit Q7D [facility] Administration Furosemide 80 mg 07/02/24 10:30 07/02/24 10:31 Furosemide 10 Mg/Ml Sdv 10ml IVP 80 mg Q12H [facility] Administration Insulin Human Lispro 0 unit 06/30/24 08:00 07/02/24 12:21 Insulin Lispro 100 Unit/1 Ml SUBCUT 6 unit WM&BEDTIME [facility] Administration Protocol Metoprolol Tartrate 50 mg 06/30/24 07:00 07/02/24 07:28 Metoprolol Tartrate 50 Mg Tablet PO 50 mg BID@0900,2100 [facility] Administration Ondansetron HCl 4 mg 06/29/24 21:14 06/30/24 21:16 Ondansetron 2 Mg/Ml Sdv 2 Ml IVP 4 mg Q6H PRN Administration NAUSEA AND VOMITING Senna/Docusate Sodium 1 tab 06/30/24 09:00 07/02/24 07:28 Sennosides-Docusate Tablet PO 1 tab DAILY [facility] Administration PFSH Acute 2 PFSH: Medical History Rib pain on right side Large pleural effusion Hypertension Diabetes Abnormal nuclear stress test Hyperglycemia Hypertensive urgency Angina at rest Diabetic neuropathy, painful Chest pain Surgical History History of surgical removal of meniscus of knee Family History Other CAD (coronary artery disease) Diabetes Social History Smoking and tobacco/nicotine status: former use of tobacco/nicotine Alcohol intake: former Substance/Drug Use: never Vitals/I&O/Wt Last Vital Signs Temp 98.0 F 07/01/24 04:00 Pulse 67 07/02/24 10:08 Resp 18 07/02/24 10:08 BP 136/88 07/02/24 04:00 Pulse Ox 97 07/02/24 10:08 O2 Del Method Nasal Cannula 07/02/24 10:08 O2 Flow Rate 3 07/02/24 10:08 FiO2 50 07/02/24 00:00 07/02/24 07/02/24 07/02/24 06:59 14:59 22:59 Intake Total 471 / 471 Balance 471 / 471 Weight last 48 hrs Weight 238 lb 3.2 oz Weight 232 lb 9.403 oz Physical Exam 2 Narrative: Obese Chest: Unlabored breathing 2L NC. No lymphadenopathy. Heart: Regular rate and rhythm. Abdomen: Soft, nontender, nondistended. No masses or lymphadenopathy. Data 07/02/24 05:13 07/02/24 05:13 A&P Assessment and plan (1) Acute kidney injury superimposed on CKD: Plan 64-year-old male with acute renal failure. Surgery consulted for placement of dialysis catheter. Discussed risk and benefits and patient agreed to proceed with temporary dialysis catheter. Coding Level of Care Code 12676 Diagnoses Acute kidney injury superimposed on CKD N17.9; N18.9 Time Spent (min) 30
--- NOTE | 2024-07-02 15:43 | PM.ACPR ---
Procedure/Consent Time out: Time Out Performed: Yes Consent: Consent for Procedure: Consent obtained from patient Procedure Narrative: Discussed risk and benefits of dialysis catheter placement patient agrees to proceed. The left groin was prepped and draped in usual sterile fashion. The left common femoral vein was identified using ultrasound. Local infiltration using 5 cc of 1% lidocaine was carried out in the left groin. A finder needle was used to access the left common femoral vein. A wire was threaded through the finder needle. Wire location of the left common femoral vein was confirmed using ultrasound. A 5 mm incision was carried out over the wire. The tract was dilated using 2 serial dilators. A 20 cm temporary dialysis line was placed using the Seldinger technique. I was able to draw venous blood and flush both channels easily. Catheter was secured using sutures. A sterile dressing was applied. No complications were noted. Acute Procedures Epistaxis Control: Time out performed: Yes
[2024-07-02] MEDS: diphenhydrAMINE 25 mg Capsule PO (18:43)
[2024-07-02] MEDS: morphine IR 15 mg Tablet PO (18:57)
[2024-07-02] MEDS: diphenhydrAMINE 50 mg/mL SDV 1mL 25 MG IVP (21:33)
[2024-07-02] MEDS: dexamethasone 4 mg/mL INJ 2 MG PO (21:33)
[2024-07-02] MEDS: atorvastatin 40 mg Tablet 80 MG PO (21:33)
--- NOTE | 2024-07-02 22:41 | PC.NURSE ---
Called to pt room, complaining of full body itching, noted red rash to legs and trunk. Denied any respiratory distress, stated it was only itching. Had received morphine at 1845 along with 25 mg bendadryl. Stated he hadn't remembered taking morphine before that. Contacted Dr. Holder, new order received for 25 mg Benadryl IVP, and 2 mg PO decadron. Both administered at 2132, patient states itching has improved, less redness to rashy areas, currently watching phone and television, itches intermittently but has improved.
[2024-07-03] VITALS (28 sets, daily range): BP systolic 101–172; BP diastolic 43–90; PULSE 61–83; RESP 11–25; TEMP 34.7–37; O2SAT 86–100
[2024-07-03 04:48] LABS: Basophils # 0.1 10^3/uL (0.0-0.1); Basophils % 0.7 %; Eosinophils % 0.5 %; Hematocrit 28.9 % (37-53); Lymphocytes # 0.9 10^3/uL (0.8-4.8); Lymphocytes % 10.4 %; Mean Corpuscular HGB Conc 31.1 g/dL (30-55); Mean Corpuscular Hemoglobin 27.4 pg (27-33); Mean Corpuscular Volume 87.8 fl (82-101); Mean Platelet Volume 10.4 fL (7.4-10.4); Monocytes # 0.4 10^3/uL (0.2-0.9); Monocytes % 4.1 %; Neutrophils # 7.36 10^3/uL (1.8-7.7); Neutrophils % 83.7 %; Nucleated Red Blood Cells % 0 %; Platelet Count 267 10^3/cmm (157-399); Red Blood Count 3.29 10^6/uL (3.85-5.65); Red Cell Distribution Width 14.6 % (12.1-15.1); White Blood Count 8.78 10^3/uL (3.29-11.43)
[2024-07-03 05:01] LABS: INR 0.95 (0.8-1.2)
[2024-07-03 05:15] LABS: Alanine Aminotransferase 14 U/L (0-41); Albumin Level 2.8 g/dL (3.5-5.2); Alkaline Phosphatase 120 U/L (40-130); Anion Gap 19.4 (5-19); Aspartate Amino Transferase 13 U/L (0-40); Blood Urea Nitrogen 73 mg/dL (8-23); Carbon Dioxide 22 mmol/L (22-29); Chloride 103 mmol/L (98-107); Creatinine Clr Calc Pharmacy 14.3102; Globulin 2.9 g/dL (1.3-4.6); Glomerular Filtration Rate 8.9 mL/min (90-130); Glucose 259 mg/dL (65-115); Magnesium 2.2 mg/dL (1.7-2.3); Osmolality Calculated 318 mOsm/kg (285-295); Phosphorus 6.5 mg/dL (2.5-4.5); Potassium 5.4 mmol/L (3.5-5.1); Sodium 139 mmol/L (136-145); Total Bilirubin 0.3 mg/dL (0.15-1.2); Total Protein 5.7 g/dL (6.6-8.7)
--- NOTE | 2024-07-03 08:30 | P.PN_ITS ---
Subjective 2 Subjective: feels better. dec sob. still itching. no n/v/f/c/rudolph/d. states he slept last night Medications: Reviewed: Yes Medication Review Details: Current Medications Acetaminophen (Acetaminophen 325 Mg Tablet) 650 mg PO Q6H PRN PRN Reason: MILD PAIN Acetaminophen (Acetaminophen 500 Mg Tablet) 500 mg PO Q4H PRN PRN Reason: fever Albuterol/Ipratropium (Ipratropium-Albuterol 3 Ml Neb) 3 ml INHALATION Q6H PRN PRN Reason: SHORTNESS OF BREATH Alprazolam (Alprazolam 0.5 Mg Tablet) 0.25 mg PO TID PRN PRN Reason: ANXIETY Amlodipine Besylate (Amlodipine 5 Mg Tablet) 5 mg PO DAILY [facility] Aspirin (Aspirin 81 Mg Ec Tablet) 81 mg PO DAILY [facility] Last Admin: 07/02/24 07:28 Dose: 81 mg Atorvastatin Calcium (Atorvastatin 40 Mg Tablet) 80 mg PO BEDTIME [facility] Last Admin: 07/02/24 21:33 Dose: 80 mg Atropine Sulfate (Atropine 1 Mg/Ml Sdv 1 Ml) 0.5 mg IVP PRN PRN PRN Reason: Symptomatic bradycardia Calamine (Calamine Lotion 177 Ml Btl) 1 applic TOPICAL Q4H PRN PRN Reason: ITCHING Clopidogrel Bisulfate (Clopidogrel 75 Mg Tablet) 75 mg PO DAILY [facility] Last Admin: 07/02/24 07:28 Dose: 75 mg Enoxaparin Sodium (Enoxaparin 30 Mg/0.3 Ml Syringe) 30 mg SUBCUT Q24H [facility] Last Admin: 07/02/24 07:27 Dose: 30 mg Ergocalciferol (Ergocalciferol (Vitamin D2) 50,000 Unit Capsule) 50,000 unit PO Q7D [facility] Last Admin: 07/01/24 09:48 Dose: 50,000 unit Fentanyl (Fentanyl 50 Mcg/Ml Inj 2ml) 50 mcg IVP PRN PRN PRN Reason: Pain Furosemide (Furosemide 10 Mg/Ml Sdv 10ml) 80 mg IVP Q12H [facility] Last Admin: 07/02/24 21:56 Dose: 80 mg Glucagon (Glucagon 1 Mg/Ml Kit 1 Ml) 1 mg IM ONCE PRN; Protocol PRN Reason: Adult Acute Hypoglycemia Nursing Prot. Norepinephrine Bitartrate (Levophed) 4 mg in 250 mls @ 0 mls/hr IV .Q0M [facility]; Protocol Dextrose (D5w) 500 mls @ 0 mls/hr IV ONCE PRN; Protocol PRN Reason: Adult Acute Hypoglycemia Prot Dextrose (D10w) 125 mls @ 750 mls/hr IV PRN PRN; Protocol PRN Reason: Adult Acute Hypoglycemia Nursing Protocol Dextrose (D10w) 250 mls @ 1,000 mls/hr IV PRN PRN; Protocol PRN Reason: Adult Acute Hypoglycemia Nursing Protocol Insulin Human Lispro (Insulin Lispro 100 Unit/1 Ml) 0 unit SUBCUT WM&BEDTIME [facility]; Protocol Last Admin: 07/02/24 21:52 Dose: Not Given Magnesium Hydroxide (Magnesium Hydroxide 30 Ml Udc) 30 ml PO DAILY PRN PRN Reason: CONSTIPATION Metoprolol Tartrate (Metoprolol Tartrate 50 Mg Tablet) 75 mg PO BID@0900,2100 [facility] Morphine Sulfate (Morphine Ir 15 Mg Tablet) 15 mg PO Q6H PRN PRN Reason: MODERATE PAIN Last Admin: 07/02/24 18:57 Dose: 15 mg Naloxone HCl (Naloxone 0.4 Mg/Ml Sdv) 0.1 mg IVP Q2M PRN PRN Reason: RESPIRATORY RATE < 8/MIN Nitroglycerin (Nitroglycerin 0.4 Mg Sublingual Tablet) 0.4 mg SUBLINGUAL Q5M PRN PRN Reason: CHEST PAIN Ondansetron HCl (Ondansetron 2 Mg/Ml Sdv 2 Ml) 4 mg IVP Q6H PRN PRN Reason: NAUSEA AND VOMITING Last Admin: 06/30/24 21:16 Dose: 4 mg Senna/Docusate Sodium (Sennosides-Docusate Tablet) 1 tab PO DAILY [facility] Last Admin: 07/02/24 07:28 Dose: 1 tab Temazepam (Temazepam 15 Mg Capsule) 15 mg PO BEDTIME PRN PRN Reason: INSOMNIA Vitals/I&O/Wt Last Vital Signs Temp 98.0 F 07/01/24 04:00 Pulse 65 07/03/24 07:00 Resp 15 07/03/24 06:00 BP 168/87 07/03/24 07:00 Pulse Ox 98 07/03/24 06:00 O2 Del Method Nasal Cannula 07/02/24 10:08 O2 Flow Rate 3 07/02/24 10:08 FiO2 50 07/02/24 00:00 07/02/24 07/03/24 07/03/24 22:59 06:59 14:59 Output Total 300 / 300 Balance -300 / 171 Weight last 48 hrs Weight 104.326 kg Weight 108.046 kg Physical Exam 2 Narrative: VS noted- on nc 02- more comfortable heent- nc/at neck supple, no jvp lungs b/l dull bases and crackles heart reg, + s1, s2 abd soft, nt, nd, + bs left Femoral dialysis catheter ext + b/l leg edema decreased from yesterday- trace to 1+ neuro- responsive and interactive,a,a,o x 3, from x4, no asterexis Data 07/03/24 04:28 07/03/24 04:28 A&P Assessment and plan (1) Acute kidney injury superimposed on CKD: 64 yr old man obesity, htn, type 2 dm, HFrEF 1. CKD stage 3b- cr 1.7- 2 mg/dl in August 2023- at that time 3+ ur protein Renal us in August 2023- rt 11.2 cm, left 12.3 cm- read as normal renal us 2. 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 EFFUSIONS- LASIX AND CONSIDER THORACENTESIS 4. REGINO on CKD- admission cr was 3.8 mg/dl given cxr w/ Pulm granuloma- please test for m. tb and sarcoid -u/a w/ 4+ protein, 2+ gluc, random microalb >581, microalb/ cr 8544 ur na 48, ur cl 52 -cr guadalupe to 6- now contrast induced REGINO -feels better after HD yesterday -repeat HD today- 2.5 hr, 2k, remove 1500 ml -normal c3 and c4 ck 296- not causing REGINO 5. renal us- there is no hydronephrosis - The wall is very thick and heterogeneous with a lobulated contour compatible with chronic outlet obstruction with lack of distension, cystitis or neurogenic bladder. - There is an irregular echogenic filling defect or mass in the lumen of the urinary bladder may reflect a true mass/neoplasm or blood clot. -HE NEEDS UROLOGY EVLUATION 6. anemia- hgb stable- t sat 20%, ferritin 419- hgb 9 check spep, sife, serologies all 7. renal bone mineral metabolism- phos binder, vit d 25, pth 242- repelate vit d. monitor phos -repeat pth in a month seen and examined with RN using A/V equipment w/ the AIDE of the RN he consents to telehealth and HD as needed Plan see above Attestations 2 Medical Necessity Statement*: regino on ckd Time Spent in Patient Care: 16 - 35 minutes (>than 50% of time sp ent in counselling and/or direct pt care on unit) . Coding Level of Care Code Acute Code for Chg Fwd Diagnoses Acute kidney injury superimposed on CKD N17.9; N18.9
--- NOTE | 2024-07-03 08:49 | PC.NURSE ---
Imaging called this morning stating that they were unable to do the thoracentesis at the time due to the high PTT value that the patient had. Patient was informed and they stated that they wanted to eat or drink something right now and that they were Pissed off that they could not eat . The patient stated that they wanted to speak to administration about not being able to eat and that they wanted to leave. This nurse informed housekeeper Cathy who went into the room and talked to the patient. Patient became more calm after housekeeper explained the situation again.
[2024-07-03 09:09] LABS: PROTEIN, TOTAL 5.7 g/dL (6.1-8.1)
--- NOTE | 2024-07-03 09:22 | PC.NURSE ---
Dr. Sanches called and asked to hold the aspirin, plavix and lovenox until after thoracentesis. She also ordered to let the dialysis nurse know if they could hold the heparin for the dialysis procedure.
--- NOTE | 2024-07-03 09:33 | PC.NURSE ---
Blood Sugar was 295 this morning.
[2024-07-03 09:34] LABS: Anti-streptolysin O 111 IU/mL (<200)
[2024-07-03] MEDS: insulin lispro 100 unit/1 mL SUBCUT ×2 (09:36→13:15)
[2024-07-03] MEDS: FUROsemide 10 mg/mL SDV 10mL 80 MG IVP ×2 (09:37→22:31)
[2024-07-03] MEDS: amlodipine 5 mg Tablet PO (09:37)
[2024-07-03] MEDS: sennosides-docusate Tablet 1 TAB PO (09:37)
[2024-07-03] MEDS: metoprolol tartrate 50 mg Tablet 75 MG PO ×2 (09:39→20:28)
[2024-07-03 09:50] LABS: Partial Thromboplastin Time 38.9 SECONDS (23.9-36.7)
--- NOTE | 2024-07-03 09:51 | P.PN_ITS ---
<Statement entered by Washington Tilley M.D - 07/03/24 21:45> Patient was evaluated and cared for in conjunction with an advanced practice practitioner. I personally examined the patient and reviewed the chart and all pertinent data including imaging, telemetry, and laboratory results. I discussed the patient in detail with the advanced practice practitioner. Please see their note for complete progress note, results and agreed upon plan of care for the patient. Patient has on and off shortness of breath. Creatinine has worsened. GENERAL: Patient is alert and oriented HEART: Regular S1 and S2 LUNGS: Diminished air entry bilaterally EXTREMITIES: Lower extremities with 2+ edema ASSESSMENT AND PLAN: (1) CHF (congestive heart failure) (2) NSTEMI (non-ST elevated myocardial infarction) (3) Hypertension (4) REGINO on CKD Plan for thoracentesis and dialysis today Continue aspirin, plavix and statin. Uptitrated metoprolol. Added amlodipine 5 mg daily Appreciate hospitalist team and nephrology input Bladder filling defect, will need outpatient urology follow up. Subjective 2 Subjective: He had a dialysis catheter placed yesterday for hemodialysis, per nephrology plan for hemodialysis today. He is less short of breath today and has slept overnight. No chest pain. Pedal edema has improved, trace to 1+ today. Creatinine 6.4 this morning. Vitals/I&O/Wt Last Vital Signs Temp 98.0 F 07/01/24 04:00 Pulse 70 07/03/24 08:54 Resp 15 07/03/24 06:00 BP 168/87 07/03/24 07:00 Pulse Ox 94 07/03/24 08:54 O2 Del Method Nasal Cannula 07/03/24 08:54 O2 Flow Rate 2 07/03/24 08:54 FiO2 50 07/02/24 00:00 07/02/24 07/03/24 07/03/24 22:59 06:59 14:59 Output Total 300 / 300 Balance -300 / 171 Weight last 48 hrs Weight 230 lb Weight 238 lb 3.2 oz Physical Exam 2 Const: COMMON NORMALS: no acute distress and patient oriented x3 GENERAL APPEARANCE: cooperative and comfortable ORIENTATION/CONSCIOUSNESS: Yes awake, Yes oriented to person, Yes oriented to place and Yes oriented to time Chest: COMMONS NORMALS: normal inspection of the chest and normal palpation of entire chest wall CHEST: Yes Symmetrical chest wall rise Resp: COMMON NORMALS: normal respiratory effort, No retractions and No use of accessory muscles EFFORT & INSPECTION: Yes symmetric chest movement A USCULTATION: diminished lung sounds bilateral in the lower lung syed Cardio: COMMON NORMALS: regular rate, regular rhythm, S1 normal heart sound present, S2 normal heart sound present, No gallops present (Cardio), No clicks present (Cardio), No murmurs present (Cardio) and No rub (Cardio) RATE: r egular rate RHYTHM: regular rhythm HEART SOUNDS: S1 normal heart sound present and S2 normal heart sound present PERIPHERAL PULSES: radial pulses present Extremity: GENERAL: Yes edema (trace to 1+ pitting bilat ankles/feet) Neuro: COMMON NORMALS: patient oriented x3 and moves all extremities S ENSORIUM/ORIENTATION: Yes oriented to person, Yes oriented to place and Yes oriented to time Data 07/03/24 04:28 07/03/24 04:28 A&P Assessment and plan (1) Hypertension: Qualifiers: Hypertension type: primary hypertension Qualified Code(s): I10 - Essential (primary) hypertension (2) Acute on chronic congestive heart failure: Qualifiers: Heart failure type: systolic Qualified Code(s): I50.23 - Acute on chronic systolic (congestive) heart failure (3) STEMI (ST elevation myocardial infarction): Qualifiers: Involved coronary artery: LAD coronary artery Qualified Code(s): I21.02 - ST elevation (STEMI) myocardial infarction involving left anterior descending coronary artery Plan Continue aspirin, Plavix, metoprolol tartrate. No chest pain. Blood pressure is elevated- amlodipine 5 mg daily and metoprolol increased to 75mg BID for better control. Dialysis today. Thoracentesis planned today. Attestations 2 Medical Necessity Statement*: care expected to cross 2 midnights Coding Level of Care Code Acute Code for g Fwd Diagnoses Primary hypertension I10 Hypertension type: primary hypertension Acute on chronic systolic congestive heart failure I50.23 Heart failure type: systolic ST elevation myocardial infarction involving left anterior descending (LAD) coronary artery I21.02 Involved coronary artery: LAD coronary artery
[2024-07-03 11:26] LABS: Glucose Point of Care 295 mg/dL (70-110)
--- NOTE | 2024-07-03 11:29 | US_ITS ---
WS: [id number] ULTRASOUND-GUIDED THORACENTESIS CLINICAL INFORMATION: large pleural effusions, respiratory distress COMPARISON: None. PROCEDURE: Prior imaging was reviewed. Informed consent: The risks, benefits, and alternatives of the procedure were discussed with the gian ent. Verbal and written consent was obtained. Timeout: A timeout was performed to confirm the correct patient, procedure, and site. Site: RIGHT chest Preparation: A suitable skin site was identified. The patient was prepped and draped in usual sterile fashion. Lidocaine 1% was used for local anesthesia. Catheter: 4 [place] One-Step catheter. Fluid Volume: 1200 ml Color: Clear yellow 50 cc sent to the laboratory for analysis. No immediate complications. Portable chest is pending. / thoracentesis [id number] IMPRESSION: Uncomplicated ultrasound-guided RIGHT thoracentesis. Portable chest is pending.
[2024-07-03 11:45] LABS: Glucose Point of Care 156 mg/dL (70-110)
[2024-07-03 11:45] LABS: Glucose Point of Care 218 mg/dL (70-110)
[2024-07-03 11:45] LABS: Glucose Point of Care 158 mg/dL (70-110)
[2024-07-03 11:45] LABS: Glucose Point of Care 191 mg/dL (70-110)
[2024-07-03 12:15] LABS: Glucose Point of Care 257 mg/dL (70-110)
[2024-07-03] MEDS: enoxaparin 30 mg/0.3 mL Syringe SUBCUT (14:18)
[2024-07-03] MEDS: aspirin 81 mg EC Tablet PO (14:18)
[2024-07-03] MEDS: clopidogrel 75 mg Tablet PO (14:18)
[2024-07-03 14:21] LABS: Cyto Order Verification Order Verified
[2024-07-03 14:26] LABS: Color, Body Fluid YELLOW
--- NOTE | 2024-07-03 14:29 | XR_ITS ---
WS: [id number] CHEST XRAY TECHNIQUE: Portable chest. CLINICAL INFORMATION: POST THORA COMPARISON: 07/01/2024 FINDINGS: Heart: Cardiomegaly. Lungs: Calcified granuloma LEFT upper lobe. Calcified hilar nodes. Improved RIGHT pleural effusion wi th subsegmental atelectasis RIGHT lower lobe. No visualized pneumothorax. Stable LEFT pleural effusio n. Bones: Normal visualized bony structures. XR/XR chest 1V [id number] IMPRESSION: Improved RIGHT pleural effusion with subsegmental atelectasis RIGHT lower lobe. No pneumothorax.
[2024-07-03 14:32] LABS: Body Fluid Polynuclear #Cells 0.007; Body Fluid WBC 218 /uL; Monocytes # Body Fluid 0.211; RBC, Body Fluid 0 10^3/uL
[2024-07-03 14:37] LABS: PATH Referral YES
[2024-07-03 14:50] LABS: Apprearance, Body Fluid CLEAR
[2024-07-03 15:05] LABS: Body Fluid Specific Gravity 1.019; pH Body Fluid 7.5
[2024-07-03 15:15] LABS: Albumin Body Fluid 1.2 g/dL; Cholesterol Body Fluid 47 mg/dL (0-200); Fluid Alkaline Phos. 21 IU/L; Triglycerides Body Fluid 18 mg/dL (0-150); Uric Acid Body Fluid 7 mg/dL
[2024-07-03 15:16] LABS: Total Protein Pleural Fluid 2.1 g/dL
[2024-07-03 15:17] LABS: Fluid Laterality PLEURAL FLUID
[2024-07-03 15:33] LABS: LDH Body Fluid 88 U/L
[2024-07-03 15:59] LABS: Anti-Double Strand DNA AB <1 IU/mL
[2024-07-03] MEDS: heparin, porcine 1,000 unit/mL INJ 10 mL 1000 UNIT IV (16:50)
--- NOTE | 2024-07-03 17:12 | P.PN_ITS ---
Subjective 2 Subjective: Patient states his breathing is better since undergoing dialysis yesterday. Feels more comfortable. Underwent thoracentesis this afternoon with removal of 1200 cc of clear yellow fluid from the right side. Postprocedure chest x-ray without any pneumothorax. Pleural fluid LDH at 88, total protein 2.1, more likely transudative effusion. Medications: Reviewed: Yes Medication Review Details: Current Medications Acetaminophen (Acetaminophen 325 Mg Tablet) 650 mg PO Q6H PRN PRN Reason: MILD PAIN Acetaminophen (Acetaminophen 500 Mg Tablet) 500 mg PO Q4H PRN PRN Reason: fever Albuterol/Ipratropium (Ipratropium-Albuterol 3 Ml Neb) 3 ml INHALATION Q6H PRN PRN Reason: SHORTNESS OF BREATH Alprazolam (Alprazolam 0.5 Mg Tablet) 0.25 mg PO TID PRN PRN Reason: ANXIETY Amlodipine Besylate (Amlodipine 5 Mg Tablet) 5 mg PO DAILY [facility] Aspirin (Aspirin 81 Mg Ec Tablet) 81 mg PO DAILY [facility] Last Admin: 07/02/24 07:28 Dose: 81 mg Atorvastatin Calcium (Atorvastatin 40 Mg Tablet) 80 mg PO BEDTIME [facility] Last Admin: 07/02/24 21:33 Dose: 80 mg Atropine Sulfate (Atropine 1 Mg/Ml Sdv 1 Ml) 0.5 mg IVP PRN PRN PRN Reason: Symptomatic bradycardia Calamine (Calamine Lotion 177 Ml Btl) 1 applic TOPICAL Q4H PRN PRN Reason: ITCHING Clopidogrel Bisulfate (Clopidogrel 75 Mg Tablet) 75 mg PO DAILY [facility] Last Admin: 07/02/24 07:28 Dose: 75 mg Enoxaparin Sodium (Enoxaparin 30 Mg/0.3 Ml Syringe) 30 mg SUBCUT Q24H [facility] Last Admin: 07/02/24 07:27 Dose: 30 mg Ergocalciferol (Ergocalciferol (Vitamin D2) 50,000 Unit Capsule) 50,000 unit PO Q7D [facility] Last Admin: 07/01/24 09:48 Dose: 50,000 unit Fentanyl (Fentanyl 50 Mcg/Ml Inj 2ml) 50 mcg IVP PRN PRN PRN Reason: Pain Furosemide (Furosemide 10 Mg/Ml Sdv 10ml) 80 mg IVP Q12H [facility] Last Admin: 07/02/24 21:56 Dose: 80 mg Glucagon (Glucagon 1 Mg/Ml Kit 1 Ml) 1 mg IM ONCE PRN; Protocol PRN Reason: Adult Acute Hypoglycemia Nursing Prot. Norepinephrine Bitartrate (Levophed) 4 mg in 250 mls @ 0 mls/hr IV .Q0M [facility]; Protocol Dextrose (D5w) 500 mls @ 0 mls/hr IV ONCE PRN; Protocol PRN Reason: Adult Acute Hypoglycemia Prot Dextrose (D10w) 125 mls @ 750 mls/hr IV PRN PRN; Protocol PRN Reason: Adult Acute Hypoglycemia Nursing Protocol Dextrose (D10w) 250 mls @ 1,000 mls/hr IV PRN PRN; Protocol PRN Reason: Adult Acute Hypoglycemia Nursing Protocol Insulin Human Lispro (Insulin Lispro 100 Unit/1 Ml) 0 unit SUBCUT WM&BEDTIME [facility]; Protocol Last Admin: 07/02/24 21:52 Dose: Not Given Magnesium Hydroxide (Magnesium Hydroxide 30 Ml Udc) 30 ml PO DAILY PRN PRN Reason: CONSTIPATION Metoprolol Tartrate (Metoprolol Tartrate 50 Mg Tablet) 75 mg PO BID@0900,2100 [facility] Morphine Sulfate (Morphine Ir 15 Mg Tablet) 15 mg PO Q6H PRN PRN Reason: MODERATE PAIN Last Admin: 07/02/24 18:57 Dose: 15 mg Naloxone HCl (Naloxone 0.4 Mg/Ml Sdv) 0.1 mg IVP Q2M PRN PRN Reason: RESPIRATORY RATE < 8/MIN Nitroglycerin (Nitroglycerin 0.4 Mg Sublingual Tablet) 0.4 mg SUBLINGUAL Q5M PRN PRN Reason: CHEST PAIN Ondansetron HCl (Ondansetron 2 Mg/Ml Sdv 2 Ml) 4 mg IVP Q6H PRN PRN Reason: NAUSEA AND VOMITING Last Admin: 06/30/24 21:16 Dose: 4 mg Senna/Docusate Sodium (Sennosides-Docusate Tablet) 1 tab PO DAILY [facility] Last Admin: 07/02/24 07:28 Dose: 1 tab Temazepam (Temazepam 15 Mg Capsule) 15 mg PO BEDTIME PRN PRN Reason: INSOMNIA Vitals/I&O/Wt Last Vital Signs Temp 94.5 F L 07/03/24 17:02 Pulse 65 07/03/24 17:02 Resp 16 07/03/24 17:02 BP 127/73 07/03/24 17:02 Pulse Ox 92 07/03/24 14:00 O2 Del Method Room Air 07/03/24 14:00 O2 Flow Rate 2 07/03/24 08:54 FiO2 50 07/02/24 00:00 07/03/24 07/03/24 07/03/24 06:59 14:59 22:59 Intake Total 480 / 480 Output Total 425 / 425 Balance 55 / 55 Weight last 48 hrs Weight 104.326 kg Weight 108.046 kg Physical Exam 2 Narrative: General: Awake alert and oriented x 3. Appears to be more comfortable. HEENT: PERRLA, pupils bilaterally equal and reactive, pallors not present Chest: Reduced air entry bilaterally CVS: S1-S2 regular, no murmurs, no tachycardia, no gallops, no rubs Abdomen: Soft, nontender, no organomegaly, bowel sounds present Neuro: No focal deficits, no facial deformity, AO x3, power 5/5 in all limbs Data 07/03/24 04:28 07/03/24 04:28 Micro: Microbiology 07/03/24 14:00 Gram Stain - Final Pleural Fluid A&P Assessment and plan (1) CHF (congestive heart failure): Qualifiers: Heart failure type: combined systolic and diastolic Heart failure chronicity: acute on chronic Qualified Code(s): I50.43 - Acute on chronic combined systolic (congestive) and diastolic (congestive) heart failure (2) Poor compliance: (3) Acute on chronic congestive heart failure: Qualifiers: Heart failure type: systolic Qualified Code(s): I50.23 - Acute on chronic systolic (congestive) heart failure (4) STEMI (ST elevation myocardial infarction): Qualifiers: Involved coronary artery: LAD coronary artery Qualified Code(s): I21.02 - ST elevation (STEMI) myocardial infarction involving left anterior descending coronary artery (5) Hyperlipidemia: Qualifiers: Hyperlipidemia type: mixed hyperlipidemia Qualified Code(s): E78.2 - Mixed hyperlipidemia (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: (7) REGINO (acute kidney injury): (8) Sciatica: (9) Neuropathy, diabetic: Plan STEMI Status post LAD 2 stents Continue dual antiplatelet therapy along statins Patient has been weaned off Levophed Echo report to be followed Acute systolic CHF exacerbation Currently on IV diuretic regimen along BiPAP Hansen catheter refused by the patient, stating that he would like to use urinal Type II diabetic with complications related to neuropathy Continue insulin sliding scale Cardiac consistent carb diet Pulm edema: I have requested BiPAP overnight patient is agreeable DVT prophylaxis: Heparin Will follow along cardiology Full code 06/30/2024 -Patient is status post 2 stents ? Contrast-induced nephropathy versus combination of cardiorenal plus contrast- induced worsening: Creatinine 4.0. ? Consult nephrology. Await recommendations ? Continue insulin sliding scale ? Continue on Lasix 20 IV twice daily patient is fluid overload intermittently diuresis. ? Continue aspirin Plavix atorvastatin ? Medicine will continue to follow along. ? Patient has refused Hansen catheter. 07/01/2024 -Continue Lasix drip at this time. ? Urine output 300 cc overnight. ? Creatinine is worsening. Nephrology following. ? Continue aspirin Plavix atorvastatin ? CT chest abdomen pelvis pending at this time to evaluate for granuloma and because of renal failure ? Renal ultrasound also pending at this time ? Medicine will continue to follow July 02, 2023 Creatinine trending up to 6, remains oliguric. Starting dialysis today. Recommend consulting surgery for placement of HD catheter. Thoracentesis would likely help benefit the patient. Patient states he has previously had thoracentesis in August 2023. He states he was told the He states he has had multiple admissions in the past year related to heart failure however has not needed thoracentesis since August. Thoracentesis and pleural fluid analysis ordered. Diuresis per primary cardiology team July 03, 2024. 64-year-old male with past medical history of nonischemic cardiomyopathy diabetes brought to the emergency room on June 29, 2024 with a STEMI. Patient underwent coronary angiogram underwent revascularization with 2 stents. Shortly after being brought back to the ICU he started to complain of chest discomfort again and underwent a repeat coronary angiogram. This showed patent prior stents without any changes. Hospital course has been notable for acute on chronic systolic CHF exacerbation for which patient was on IV diuresis, development of acute kidney injury asked CKD for which she has been started on hemodialysis. Imaging showed echogenic filling defect/mass in the lumen of the urinary bladder which may be loan servicing representative of a mass or neoplasm, he will need urology evaluation shortly after discharge. Unfortunately we do not have urology services available inpatient. He has bilateral pleural effusions, status post thoracentesis on the right side today. There was concern for potential LV thrombus earlier this admission which has been ruled out. Patient is currently on aspirin Plavix atorvastatin. His breathing is improved since initiation of hemodialysis. Also underwent thoracentesis today which has helped. he will be receiving hemodialysis postthoracentesis today. Attestations 2 Medical Necessity Statement*: per primary admitting Coding Level of Care Code Acute Code for Chg Fwd Diagnoses Acute on chronic combined systolic and diastolic congestive heart failure I50.43 Heart failure type: combined systolic and diastolic Heart failure chronicity: acute on chronic Poor compliance Z91.199 Acute on chronic systolic congestive heart failure I50.23 Heart failure type: systolic ST elevation myocardial infarction involving left anterior descending (LAD) coronary artery I21.02 Involved coronary artery: LAD coronary artery Mixed hyperlipidemia E78.2 Hyperlipidemia type: mixed hyperlipidemia 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
[2024-07-03 17:41] LABS: Glucose Point of Care 141 mg/dL (70-110)
[2024-07-03 18:03] LABS: Lactate Dehydrogenase 283 U/L (135-225)
[2024-07-03] MEDS: temazepam 15 mg Capsule PO (20:28)
[2024-07-03] MEDS: atorvastatin 40 mg Tablet 80 MG PO (20:28)
[2024-07-03 20:39] LABS: Glucose Point of Care 215 mg/dL (70-110)
[2024-07-03] MEDS: diphenhydrAMINE 50 mg/mL SDV 1mL 25 MG IVP (23:24)
[2024-07-04] VITALS (17 sets, daily range): BP systolic 97–154; BP diastolic 46–87; PULSE 60–96; RESP 10–23; O2SAT 93–98
[2024-07-04] MEDS: hydrocortisone 100 mg/2 mL SDV 50 MG IVP (02:35)
[2024-07-04] MEDS: diphenhydrAMINE 50 mg/mL SDV 1mL 25 MG IVP (02:35)
[2024-07-04 05:12] LABS: Basophils # 0.1 10^3/uL (0.0-0.1); Basophils % 0.6 %; Eosinophils % 0.4 %; Hematocrit 26.2 % (37-53); Lymphocytes # 1.2 10^3/uL (0.8-4.8); Lymphocytes % 12.2 %; Mean Corpuscular HGB Conc 31.7 g/dL (30-55); Mean Corpuscular Volume 85.3 fl (82-101); Mean Platelet Volume 10.6 fL (7.4-10.4); Monocytes # 0.5 10^3/uL (0.2-0.9); Monocytes % 5.2 %; Neutrophils # 7.92 10^3/uL (1.8-7.7); Nucleated Red Blood Cells % 0 %; Platelet Count 293 10^3/cmm (157-399); Red Blood Count 3.07 10^6/uL (3.85-5.65); Red Cell Distribution Width 14.4 % (12.1-15.1); White Blood Count 9.78 10^3/uL (3.29-11.43)
[2024-07-04 05:45] LABS: Alanine Aminotransferase 12 U/L (0-41); Albumin Level 2.8 g/dL (3.5-5.2); Alkaline Phosphatase 115 U/L (40-130); Anion Gap 16.6 (5-19); Aspartate Amino Transferase 13 U/L (0-40); Blood Urea Nitrogen 59 mg/dL (8-23); Carbon Dioxide 25 mmol/L (22-29); Chloride 99 mmol/L (98-107); Creatinine Clr Calc Pharmacy 16.8004; Globulin 2.7 g/dL (1.3-4.6); Glucose 226 mg/dL (65-115); Magnesium 2.1 mg/dL (1.7-2.3); Osmolality Calculated 306 mOsm/kg (285-295); Potassium 4.6 mmol/L (3.5-5.1); Sodium 136 mmol/L (136-145); Total Bilirubin 0.2 mg/dL (0.15-1.2); Total Protein 5.5 g/dL (6.6-8.7)
[2024-07-04 08:18] LABS: Glucose Point of Care 243 mg/dL (70-110)
--- NOTE | 2024-07-04 08:21 | P.PN_ITS ---
Subjective 2 Subjective: feels much better s/p HD last 2 days and thoracentesis yesterday. good appetite. no sob or cp or rudolph or diarrhea. Medications: Reviewed: Yes Medication Review Details: Current Medications Acetaminophen (Acetaminophen 325 Mg Tablet) 650 mg PO Q6H PRN PRN Reason: MILD PAIN Acetaminophen (Acetaminophen 500 Mg Tablet) 500 mg PO Q4H PRN PRN Reason: fever Albuterol/Ipratropium (Ipratropium-Albuterol 3 Ml Neb) 3 ml INHALATION Q6H PRN PRN Reason: SHORTNESS OF BREATH Amlodipine Besylate (Amlodipine 5 Mg Tablet) 5 mg PO DAILY [facility] Last Admin: 07/03/24 09:37 Dose: 5 mg Aspirin (Aspirin 81 Mg Ec Tablet) 81 mg PO DAILY [facility] Last Admin: 07/03/24 14:18 Dose: 81 mg Atorvastatin Calcium (Atorvastatin 40 Mg Tablet) 80 mg PO BEDTIME [facility] Last Admin: 07/03/24 20:28 Dose: 80 mg Atropine Sulfate (Atropine 1 Mg/Ml Sdv 1 Ml) 0.5 mg IVP PRN PRN PRN Reason: Symptomatic bradycardia Calamine (Calamine Lotion 177 Ml Btl) 1 applic TOPICAL Q4H PRN PRN Reason: ITCHING Clopidogrel Bisulfate (Clopidogrel 75 Mg Tablet) 75 mg PO DAILY [facility] Last Admin: 07/03/24 14:18 Dose: 75 mg Enoxaparin Sodium (Enoxaparin 30 Mg/0.3 Ml Syringe) 30 mg SUBCUT Q24H [facility] Last Admin: 07/03/24 14:18 Dose: 30 mg Ergocalciferol (Ergocalciferol (Vitamin D2) 50,000 Unit Capsule) 50,000 unit PO Q7D [facility] Last Admin: 07/01/24 09:48 Dose: 50,000 unit Furosemide (Furosemide 10 Mg/Ml Sdv 10ml) 80 mg IVP Q12H [facility] Last Admin: 07/03/24 22:31 Dose: 80 mg Glucagon (Glucagon 1 Mg/Ml Kit 1 Ml) 1 mg IM ONCE PRN; Protocol PRN Reason: Adult Acute Hypoglycemia Nursing Prot. Norepinephrine Bitartrate (Levophed) 4 mg in 250 mls @ 0 mls/hr IV .Q0M [facility]RE[facility]; Protocol Dextrose (D5w) 500 mls @ 0 mls/hr IV ONCE PRN; Protocol PRN Reason: Adult Acute Hypoglycemia Prot Dextrose (D10w) 125 mls @ 750 mls/hr IV PRN PRN; Protocol PRN Reason: Adult Acute Hypoglycemia Nursing Protocol Dextrose (D10w) 250 mls @ 1,000 mls/hr IV PRN PRN; Protocol PRN Reason: Adult Acute Hypoglycemia Nursing Protocol Insulin Human Lispro (Insulin Lispro 100 Unit/1 Ml) 0 unit SUBCUT WM&BEDTIME [facility]; Protocol Last Admin: 07/03/24 22:19 Dose: Not Given Magnesium Hydroxide (Magnesium Hydroxide 30 Ml Udc) 30 ml PO DAILY PRN PRN Reason: CONSTIPATION Metoprolol Tartrate (Metoprolol Tartrate 50 Mg Tablet) 75 mg PO BID@0900,2100 [facility] Last Admin: 07/03/24 20:28 Dose: 75 mg Naloxone HCl (Naloxone 0.4 Mg/Ml Sdv) 0.1 mg IVP Q2M PRN PRN Reason: RESPIRATORY RATE < 8/MIN Nitroglycerin (Nitroglycerin 0.4 Mg Sublingual Tablet) 0.4 mg SUBLINGUAL Q5M PRN PRN Reason: CHEST PAIN Ondansetron HCl (Ondansetron 2 Mg/Ml Sdv 2 Ml) 4 mg IVP Q6H PRN PRN Reason: NAUSEA AND VOMITING Last Admin: 06/30/24 21:16 Dose: 4 mg Senna/Docusate Sodium (Sennosides-Docusate Tablet) 1 tab PO DAILY [facility] Last Admin: 07/03/24 09:37 Dose: 1 tab Triamcinolone Acetonide (Triamcinolone 0.1% Cream 15 Gm) 1 applic TOPICAL BID PRN PRN Reason: skin rash Vitals/I&O/Wt Last Vital Signs Temp 98.6 F 07/03/24 19:34 Pulse 69 07/03/24 22:00 Resp 23 H 07/03/24 19:34 BP 125/72 07/03/24 19:34 Pulse Ox 92 07/03/24 14:00 O2 Del Method Room Air 07/03/24 14:00 O2 Flow Rate 2 07/03/24 08:54 FiO2 50 07/02/24 00:00 07/03/24 07/04/24 07/04/24 22:59 06:59 14:59 Intake Total 980 / 980 Output Total 2425 / 2425 Balance -1445 / -1445 Weight last 48 hrs Weight 102.058 kg Weight 102.1 kg Weight 104.326 kg Physical Exam 2 Narrative: VS noted sitting comfortably in bed heent- nc/at neck supple, no jvp lungs improved air movement b/l heart reg, + s1, s2 abd soft, nt, nd, + bs left Femoral dialysis catheter ext + b/l leg edema improved neuro- a,a,o x 3, from x4, no asterexis Data 07/04/24 04:47 07/04/24 04:47 Micro: Microbiology 07/03/24 14:00 Gram Stain - Final Pleural Fluid A&P Assessment and plan (1) Acute kidney injury superimposed on CKD: 64 yr old man obesity, htn, type 2 dm, HFrEF 1. CKD stage 3b- cr 1.7- 2 mg/dl in August 2023- at that time 3+ ur protein Renal us in August 2023- rt 11.2 cm, left 12.3 cm- read as normal renal us 2. 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 EFFUSIONS- s/p THORACENTESIS 4. REGINO on CKD- admission cr was 3.8 mg/dl given cxr w/ Pulm granuloma- please test for m. tb and sarcoid -u/a w/ 4+ protein, 2+ gluc, random microalb >581, microalb/ cr 8544 ur na 48, ur cl 52 -cr guadalupe to 6- now contrast induced REGINO -feels better after HD x 2 -hold dialysis today and monitor for renal recovery -normal c3 and c4 ck 296- not causing REGINO 5. renal us- there is no hydronephrosis - The wall is very thick and heterogeneous with a lobulated contour compatible with chronic outlet obstruction with lack of distension, cystitis or neurogenic bladder. - There is an irregular echogenic filling defect or mass in the lumen of the urinary bladder may reflect a true mass/neoplasm or blood clot. -HE NEEDS UROLOGY EVLUATION 6. anemia- hgb stable- t sat 20%, ferritin 419- hgb 8.3 check spep, sife, serologies all 7. renal bone mineral metabolism- phos binder, vit d 25, pth 242- repelate vit d. monitor phos -repeat pth in a month seen and examined with RN using A/V equipment w/ the AIDE of the RN he consents to telehealth and HD as needed Plan see above Attestations 2 Medical Necessity Statement*: s/p cardiac cath and stent, regino. pleural effusion. monitor for renal recovery Time Spent in Patient Care: 16 - 35 minutes (>than 50% of time sp ent in counselling and/or direct pt care on unit) . Coding Level of Care Code Acute Code for Chg Fwd Diagnoses Acute kidney injury superimposed on CKD N17.9; N18.9
[2024-07-04] MEDS: insulin lispro 100 unit/1 mL SUBCUT ×2 (08:41→11:57)
[2024-07-04] MEDS: enoxaparin 30 mg/0.3 mL Syringe SUBCUT (08:41)
[2024-07-04] MEDS: clopidogrel 75 mg Tablet PO (08:42)
[2024-07-04] MEDS: aspirin 81 mg EC Tablet PO (08:42)
[2024-07-04] MEDS: sennosides-docusate Tablet 1 TAB PO (08:42)
[2024-07-04] MEDS: amlodipine 5 mg Tablet PO (08:42)
[2024-07-04] MEDS: FUROsemide 10 mg/mL SDV 2mL 20 MG IVP ×2 (08:42→20:28)
[2024-07-04 08:45] LABS: ABNORMAL PROTEIN BAND 1 0.1 g/dL (NONE DETECTED); ALBUMIN 2.6 g/dL (3.8-4.8); ALPHA 1 GLOBULIN 0.3 g/dL (0.2-0.3); ALPHA 2 GLOBULIN 1.2 g/dL (0.5-0.9); BETA 1 GLOBULIN 0.3 g/dL (0.4-0.6); BETA 2 GLOBULIN 0.4 g/dL (0.2-0.5); GAMMA GLOBULIN 0.9 g/dL (0.8-1.7)
[2024-07-04] MEDS: metoprolol tartrate 50 mg Tablet 75 MG PO ×2 (08:45→20:27)
--- NOTE | 2024-07-04 10:20 | P.PN_ITS ---
<Statement entered by Washington Tilley M.D - 07/05/24 09:03> Patient was evaluated and cared for in conjunction with an advanced practice practitioner. I personally examined the patient and reviewed the chart and all pertinent data including imaging, telemetry, and laboratory results. I discussed the patient in detail with the advanced practice practitioner. Please see their note for complete progress note, results and agreed upon plan of care for the patient. Patient's symptoms have improved. Not having much shortness of breath. GENERAL: Patient is alert and oriented HEART: Regular S1 and S2 LUNGS: Diminished air entry bilaterally EXTREMITIES: Lower extremities with 2+ edema ASSESSMENT AND PLAN: (1) CHF (congestive heart failure) (2) STEMI ( ST elevated myocardial infarction) (3) Hypertension (4) REGINO on CKD Patient had 1200cc taken off of right lung. Had HD as welll. Feels much better. Holding HD today per nephrology recommendations Continue aspirin, plavix and statin. Metoprolol and amlodipine. Appreciate hospitalist team and nephrology input Bladder filling defect, will need outpatient urology follow up. Patient's discharge will depend on renal function and need for dialysis assessment per nephrology. His cardiovascular status is stable. Subjective 2 Subjective: Per nephrology, no HD today, will continue to monitor renal function. Creatinine 5.3. He is receiving Lasix 20 IV twice a day. Hemoglobin down to 8.3. Blood pressure controlled. Shortness of breath resolved. No chest pain. Concern for neoplasm in the bladder, plan for urology evaluation after discharge. Vitals/I&O/Wt Last Vital Signs Temp 98.6 F 07/03/24 19:34 Pulse 69 07/03/24 22:00 Resp 23 H 07/03/24 19:34 BP 125/72 07/03/24 19:34 Pulse Ox 92 07/03/24 14:00 O2 Del Method Room Air 07/03/24 14:00 O2 Flow Rate 2 07/03/24 08:54 FiO2 50 07/02/24 00:00 07/03/24 07/04/24 07/04/24 22:59 06:59 14:59 Intake Total 980 / 980 Output Total 2425 / 2425 Balance -1445 / -1445 Weight last 48 hrs Weight 225 lb Weight 225 lb 1.471 oz Weight 230 lb Physical Exam 2 Const: COMMON NORMALS: no acute distress and patient oriented x3 GENERAL APPEARANCE: cooperative and comfortable ORIENTATION/CONSCIOUSNESS: Yes awake, Yes oriented to person, Yes oriented to place and Yes oriented to time Chest: COMMONS NORMALS: normal inspection of the chest and normal palpation of entire chest wall CHEST: Yes Symmetrical chest wall rise Resp: COMMON NORMALS: normal respiratory effort, No retractions, No use of accessory muscles and clear to auscultation bilaterally EFFORT & INSPECTION: Yes symmetric chest movement AUSCULTATION: clear to auscultation bilaterally Cardio: COMMON NORMALS: regular rate, regular rhythm, S1 normal heart sound present, S2 normal heart sound present, No gallops present (Cardio), No clicks present (Cardio), No murmurs present (Cardio) and No rub (Cardio) RATE: r egular rate RHYTHM: regular rhythm HEART SOUNDS: S1 normal heart sound present and S2 normal heart sound present PERIPHERAL PULSES: radial pulses present Extremity: COMMON NORMALS: no pedal edema Neuro: COMMON NORMALS: patient oriented x3 and moves all extremities S ENSORIUM/ORIENTATION: Yes oriented to person, Yes oriented to place and Yes oriented to time Data 07/04/24 04:47 07/05/24 05:26 Micro: Microbiology 07/03/24 14:00 Gram Stain - Final Pleural Fluid A&P Assessment and plan (1) Hypertension: Qualifiers: Hypertension type: primary hypertension Qualified Code(s): I10 - Essential (primary) hypertension (2) STEMI (ST elevation myocardial infarction): Qualifiers: Involved coronary artery: LAD coronary artery Qualified Code(s): I21.02 - ST elevation (STEMI) myocardial infarction involving left anterior descending coronary artery (3) CHF (congestive heart failure): Qualifiers: Heart failure chronicity: acute on chronic Heart failure type: combined systolic and diastolic Qualified Code(s): I50.43 - Acute on chronic combined systolic (congestive) and diastolic (congestive) heart failure Plan He appears well compensated. No plans for dialysis today, plan to monitor function to determine discharge plan. Continue aspirin, statin, Plavix, metoprolol. Blood pressure well controlled with amlodipine and metoprolol. Attestations 2 Medical Necessity Statement*: care expected to cross 2 midnights Coding Level of Care Code Acute Code for [facility] Fwd Diagnoses Primary hypertension I10 Hypertension type: primary hypertension ST elevation myocardial infarction involving left anterior descending (LAD) coronary artery I21.02 Involved coronary artery: LAD coronary artery Acute on chronic combined systolic and diastolic congestive heart failure I50.43 Heart failure chronicity: acute on chronic Heart failure type: combined systolic and diastolic
[2024-07-04 11:49] LABS: Glucose Point of Care 268 mg/dL (70-110)
[2024-07-04 12:01] LABS: Angiotensin Converting Enzyme 45 U/L (9-67)
[2024-07-04 14:34] LABS: KAPPA LIGHT CHAIN, FREE, SERUM 141.1 mg/L (3.3-19.4); KAPPA/LAMBDA LIGHT CHAINS FREE 1.55 (0.26-1.65); LAMBDA LIGHT CHAIN, FREE, SERU 90.9 mg/L (5.7-26.3)
[2024-07-04 14:45] LABS: Anti-Nuclear Antibody Screen NEGATIVE (NEGATIVE)
--- NOTE | 2024-07-04 15:28 | P.PN_ITS ---
Subjective 2 Subjective: feels much better. Off supplemental 02 today, breathing comfortably. Medications: Reviewed: Yes Medication Review Details: Current Medications Acetaminophen (Acetaminophen 325 Mg Tablet) 650 mg PO Q6H PRN PRN Reason: MILD PAIN Acetaminophen (Acetaminophen 500 Mg Tablet) 500 mg PO Q4H PRN PRN Reason: fever Albuterol/Ipratropium (Ipratropium-Albuterol 3 Ml Neb) 3 ml INHALATION Q6H PRN PRN Reason: SHORTNESS OF BREATH Amlodipine Besylate (Amlodipine 5 Mg Tablet) 5 mg PO DAILY [facility] Last Admin: 07/03/24 09:37 Dose: 5 mg Aspirin (Aspirin 81 Mg Ec Tablet) 81 mg PO DAILY [facility] Last Admin: 07/03/24 14:18 Dose: 81 mg Atorvastatin Calcium (Atorvastatin 40 Mg Tablet) 80 mg PO BEDTIME [facility] Last Admin: 07/03/24 20:28 Dose: 80 mg Atropine Sulfate (Atropine 1 Mg/Ml Sdv 1 Ml) 0.5 mg IVP PRN PRN PRN Reason: Symptomatic bradycardia Calamine (Calamine Lotion 177 Ml Btl) 1 applic TOPICAL Q4H PRN PRN Reason: ITCHING Clopidogrel Bisulfate (Clopidogrel 75 Mg Tablet) 75 mg PO DAILY [facility] Last Admin: 07/03/24 14:18 Dose: 75 mg Enoxaparin Sodium (Enoxaparin 30 Mg/0.3 Ml Syringe) 30 mg SUBCUT Q24H [facility] Last Admin: 07/03/24 14:18 Dose: 30 mg Ergocalciferol (Ergocalciferol (Vitamin D2) 50,000 Unit Capsule) 50,000 unit PO Q7D [facility] Last Admin: 07/01/24 09:48 Dose: 50,000 unit Furosemide (Furosemide 10 Mg/Ml Sdv 10ml) 80 mg IVP Q12H [facility] Last Admin: 07/03/24 22:31 Dose: 80 mg Glucagon (Glucagon 1 Mg/Ml Kit 1 Ml) 1 mg IM ONCE PRN; Protocol PRN Reason: Adult Acute Hypoglycemia Nursing Prot. Norepinephrine Bitartrate (Levophed) 4 mg in 250 mls @ 0 mls/hr IV .Q0M ESTRELLA; Protocol Dextrose (D5w) 500 mls @ 0 mls/hr IV ONCE PRN; Protocol PRN Reason: Adult Acute Hypoglycemia Prot Dextrose (D10w) 125 mls @ 750 mls/hr IV PRN PRN; Protocol PRN Reason: Adult Acute Hypoglycemia Nursing Protocol Dextrose (D10w) 250 mls @ 1,000 mls/hr IV PRN PRN; Protocol PRN Reason: Adult Acute Hypoglycemia Nursing Protocol Insulin Human Lispro (Insulin Lispro 100 Unit/1 Ml) 0 unit SUBCUT WM&BEDTIME [facility]; Protocol Last Admin: 07/03/24 22:19 Dose: Not Given Magnesium Hydroxide (Magnesium Hydroxide 30 Ml Udc) 30 ml PO DAILY PRN PRN Reason: CONSTIPATION Metoprolol Tartrate (Metoprolol Tartrate 50 Mg Tablet) 75 mg PO BID@0900,2100 [facility] Last Admin: 07/03/24 20:28 Dose: 75 mg Naloxone HCl (Naloxone 0.4 Mg/Ml Sdv) 0.1 mg IVP Q2M PRN PRN Reason: RESPIRATORY RATE < 8/MIN Nitroglycerin (Nitroglycerin 0.4 Mg Sublingual Tablet) 0.4 mg SUBLINGUAL Q5M PRN PRN Reason: CHEST PAIN Ondansetron HCl (Ondansetron 2 Mg/Ml Sdv 2 Ml) 4 mg IVP Q6H PRN PRN Reason: NAUSEA AND VOMITING Last Admin: 06/30/24 21:16 Dose: 4 mg Senna/Docusate Sodium (Sennosides-Docusate Tablet) 1 tab PO DAILY [facility] Last Admin: 07/03/24 09:37 Dose: 1 tab Triamcinolone Acetonide (Triamcinolone 0.1% Cream 15 Gm) 1 applic TOPICAL BID PRN PRN Reason: skin rash Vitals/I&O/Wt Last Vital Signs Temp 98.6 F 07/03/24 19:34 Pulse 67 07/04/24 15:00 Resp 15 07/04/24 15:00 BP 125/66 07/04/24 15:00 Pulse Ox 93 07/04/24 15:00 O2 Del Method Room Air 07/04/24 15:00 O2 Flow Rate 2 07/03/24 08:54 FiO2 50 07/02/24 00:00 07/04/24 07/04/24 07/04/24 06:59 14:59 22:59 Intake Total 480 / 480 Output Total 275 / 275 Balance 205 / 205 Weight last 48 hrs Weight 102.058 kg Weight 102.1 kg Weight 104.326 kg Physical Exam 2 Narrative: General: Awake alert and oriented x 3. HEENT: PERRLA, pupils bilaterally equal and reactive, pallors not present Chest: Reduced air entry bilaterally CVS: S1-S2 regular, no murmurs, no tachycardia, no gallops, no rubs Abdomen: Soft, nontender, no organomegaly, bowel sounds present Neuro: No focal deficits, no facial deformity, AO x3, power 5/5 in all limbs Data 07/04/24 04:47 07/04/24 04:47 Micro: Microbiology 07/03/24 14:00 Gram Stain - Final Pleural Fluid Anaerobic Culture - Preliminary Body Fluid Culture - Preliminary A&P Assessment and plan (1) CHF (congestive heart failure): Qualifiers: Heart failure type: combined systolic and diastolic Heart failure chronicity: acute on chronic Qualified Code(s): I50.43 - Acute on chronic combined systolic (congestive) and diastolic (congestive) heart failure (2) Poor compliance: (3) Acute on chronic congestive heart failure: Qualifiers: Heart failure type: systolic Qualified Code(s): I50.23 - Acute on chronic systolic (congestive) heart failure (4) STEMI (ST elevation myocardial infarction): Qualifiers: Involved coronary artery: LAD coronary artery Qualified Code(s): I21.02 - ST elevation (STEMI) myocardial infarction involving left anterior descending coronary artery (5) Hyperlipidemia: Qualifiers: Hyperlipidemia type: mixed hyperlipidemia Qualified Code(s): E78.2 - Mixed hyperlipidemia (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: (7) REGINO (acute kidney injury): (8) Sciatica: (9) Neuropathy, diabetic: Plan STEMI Status post LAD 2 stents Continue dual antiplatelet therapy along statins Patient has been weaned off Levophed Echo report to be followed Acute systolic CHF exacerbation Currently on IV diuretic regimen along BiPAP Hansen catheter refused by the patient, stating that he would like to use urinal Type II diabetic with complications related to neuropathy Continue insulin sliding scale Cardiac consistent carb diet Pulm edema: I have requested BiPAP overnight patient is agreeable DVT prophylaxis: Heparin Will follow along cardiology Full code 06/30/2024 -Patient is status post 2 stents ? Contrast-induced nephropathy versus combination of cardiorenal plus contrast- induced worsening: Creatinine 4.0. ? Consult nephrology. Await recommendations ? Continue insulin sliding scale ? Continue on Lasix 20 IV twice daily patient is fluid overload intermittently diuresis. ? Continue aspirin Plavix atorvastatin ? Medicine will continue to follow along. ? Patient has refused Hansen catheter. 07/01/2024 -Continue Lasix drip at this time. ? Urine output 300 cc overnight. ? Creatinine is worsening. Nephrology following. ? Continue aspirin Plavix atorvastatin ? CT chest abdomen pelvis pending at this time to evaluate for granuloma and because of renal failure ? Renal ultrasound also pending at this time ? Medicine will continue to follow July 02, 2023 Creatinine trending up to 6, remains oliguric. Starting dialysis today. Recommend consulting surgery for placement of HD catheter. Thoracentesis would likely help benefit the patient. Patient states he has previously had thoracentesis in August 2023. He states he was told the He states he has had multiple admissions in the past year related to heart failure however has not needed thoracentesis since August. Thoracentesis and pleural fluid analysis ordered. Diuresis per primary cardiology team July 03, 2024. 64-year-old male with past medical history of nonischemic cardiomyopathy diabetes brought to the emergency room on June 29, 2024 with a STEMI. Patient underwent coronary angiogram underwent revascularization with 2 stents. Shortly after being brought back to the ICU he started to complain of chest discomfort again and underwent a repeat coronary angiogram. This showed patent prior stents without any changes. Hospital course has been notable for acute on chronic systolic CHF exacerbation for which patient was on IV diuresis, development of acute kidney injury asked CKD for which she has been started on hemodialysis. Imaging showed echogenic filling defect/mass in the lumen of the urinary bladder which may be national sales representative of a mass or neoplasm, he will need urology evaluation shortly after discharge. Unfortunately we do not have urology services available inpatient. He has bilateral pleural effusions, status post thoracentesis on the right side today. There was concern for potential LV thrombus earlier this admission which has been ruled out. Patient is currently on aspirin Plavix atorvastatin. His breathing is improved since initiation of hemodialysis. Also underwent thoracentesis today which has helped. he will be receiving hemodialysis postthoracentesis today. july 04, 2024: Clinically better today. off supplemental 02. Monitoring renal function for potential recovery. PT/OT eval. Attestations 2 Medical Necessity Statement*: per admitting Coding Level of Care Code Acute Code for Chg Fwd Diagnoses Acute on chronic combined systolic and diastolic congestive heart failure I50.43 Heart failure type: combined systolic and diastolic Heart failure chronicity: acute on chronic Poor compliance Z91.199 Acute on chronic systolic congestive heart failure I50.23 Heart failure type: systolic ST elevation myocardial infarction involving left anterior descending (LAD) coronary artery I21.02 Involved coronary artery: LAD coronary artery Mixed hyperlipidemia E78.2 Hyperlipidemia type: mixed hyperlipidemia 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
[2024-07-04 16:45] LABS: Quantiferon Mitogen 8.49 IU/mL; Quantiferon Nil 0.08 IU/mL; Quantiferon Plus TB1 <0.00 IU/mL; Quantiferon Plus TB2 <0.00 IU/mL; Quantiferon TB Gold NEGATIVE (NEGATIVE)
[2024-07-04 17:14] LABS: Glucose Point of Care 131 mg/dL (70-110)
[2024-07-04] MEDS: atorvastatin 40 mg Tablet 80 MG PO (20:28)
[2024-07-04] MEDS: acetaminophen 325 mg Tablet 650 MG PO (21:03)
[2024-07-04 21:42] LABS: Glucose Point of Care 153 mg/dL (70-110)
[2024-07-05] VITALS (7 sets, daily range): BP systolic 131–162; BP diastolic 64–87; PULSE 62–78; RESP 16–18; TEMP 36.3–36.6; O2SAT 93–98
[2024-07-05 01:37] LABS: Glucose Point of Care 125 mg/dL (70-110)
[2024-07-05 06:05] LABS: Alanine Aminotransferase 10 U/L (0-41); Albumin Level 2.8 g/dL (3.5-5.2); Alkaline Phosphatase 102 U/L (40-130); Anion Gap 16.6 (5-19); Aspartate Amino Transferase 10 U/L (0-40); Blood Urea Nitrogen 66 mg/dL (8-23); Carbon Dioxide 23 mmol/L (22-29); Chloride 101 mmol/L (98-107); Creatinine Clr Calc Pharmacy 15.1963; Globulin 2.6 g/dL (1.3-4.6); Glomerular Filtration Rate 9.5 mL/min (90-130); Glucose 168 mg/dL (65-115); Magnesium 2.1 mg/dL (1.7-2.3); Osmolality Calculated 305 mOsm/kg (285-295); Potassium 4.6 mmol/L (3.5-5.1); Sodium 136 mmol/L (136-145); Total Bilirubin 0.2 mg/dL (0.15-1.2); Total Protein 5.4 g/dL (6.6-8.7)
[2024-07-05 06:36] LABS: Glucose Point of Care 176 mg/dL (70-110)
--- NOTE | 2024-07-05 08:17 | PM.PN ---
Subjective Subjective: seen and examined. had some SOB overnight. no n/v/f/c/rudolph/d Medications: Reviewed: Yes Medication Review Details: Current Medications Acetaminophen (Acetaminophen 325 Mg Tablet) 650 mg PO Q6H PRN PRN Reason: MILD PAIN Last Admin: 07/04/24 21:03 Dose: 650 mg Acetaminophen (Acetaminophen 500 Mg Tablet) 500 mg PO Q4H PRN PRN Reason: fever Albuterol/Ipratropium (Ipratropium-Albuterol 3 Ml Neb) 3 ml INHALATION Q6H PRN PRN Reason: SHORTNESS OF BREATH Amlodipine Besylate (Amlodipine 5 Mg Tablet) 5 mg PO DAILY [facility] Last Admin: 07/04/24 08:42 Dose: 5 mg Aspirin (Aspirin 81 Mg Ec Tablet) 81 mg PO DAILY [facility] Last Admin: 07/04/24 08:42 Dose: 81 mg Atorvastatin Calcium (Atorvastatin 40 Mg Tablet) 80 mg PO BEDTIME [facility] Last Admin: 07/04/24 20:28 Dose: 80 mg Atropine Sulfate (Atropine 1 Mg/Ml Sdv 1 Ml) 0.5 mg IVP PRN PRN PRN Reason: Symptomatic bradycardia Calamine (Calamine Lotion 177 Ml Btl) 1 applic TOPICAL Q4H PRN PRN Reason: ITCHING Last Admin: 07/04/24 11:39 Dose: 1 applic Clopidogrel Bisulfate (Clopidogrel 75 Mg Tablet) 75 mg PO DAILY [facility] Last Admin: 07/04/24 08:42 Dose: 75 mg Enoxaparin Sodium (Enoxaparin 30 Mg/0.3 Ml Syringe) 30 mg SUBCUT Q24H [facility] Last Admin: 07/04/24 08:41 Dose: 30 mg Ergocalciferol (Ergocalciferol (Vitamin D2) 50,000 Unit Capsule) 50,000 unit PO Q7D [facility] Last Admin: 07/01/24 09:48 Dose: 50,000 unit Furosemide (Furosemide 10 Mg/Ml Sdv 2ml) 20 mg IVP Q12H [facility] Last Admin: 07/04/24 20:28 Dose: 20 mg Glucagon (Glucagon 1 Mg/Ml Kit 1 Ml) 1 mg IM ONCE PRN; Protocol PRN Reason: Adult Acute Hypoglycemia Nursing Prot. Norepinephrine Bitartrate (Levophed) 4 mg in 250 mls @ 0 mls/hr IV .Q0M ESTRELLA; Protocol Dextrose (D5w) 500 mls @ 0 mls/hr IV ONCE PRN; Protocol PRN Reason: Adult Acute Hypoglycemia Prot Dextrose (D10w) 125 mls @ 750 mls/hr IV PRN PRN; Protocol PRN Reason: Adult Acute Hypoglycemia Nursing Protocol Dextrose (D10w) 250 mls @ 1,000 mls/hr IV PRN PRN; Protocol PRN Reason: Adult Acute Hypoglycemia Nursing Protocol Insulin Human Lispro (Insulin Lispro 100 Unit/1 Ml) 0 unit SUBCUT WM&BEDTIME [facility]; Protocol Last Admin: 07/04/24 21:04 Dose: Not Given Metoprolol Tartrate (Metoprolol Tartrate 50 Mg Tablet) 75 mg PO BID@0900,2100 [facility] Last Admin: 07/04/24 20:27 Dose: 75 mg Naloxone HCl (Naloxone 0.4 Mg/Ml Sdv) 0.1 mg IVP Q2M PRN PRN Reason: RESPIRATORY RATE < 8/MIN Nitroglycerin (Nitroglycerin 0.4 Mg Sublingual Tablet) 0.4 mg SUBLINGUAL Q5M PRN PRN Reason: CHEST PAIN Ondansetron HCl (Ondansetron 2 Mg/Ml Sdv 2 Ml) 4 mg IVP Q6H PRN PRN Reason: NAUSEA AND VOMITING Last Admin: 06/30/24 21:16 Dose: 4 mg Senna/Docusate Sodium (Sennosides-Docusate Tablet) 1 tab PO DAILY [facility] Last Admin: 07/04/24 08:42 Dose: 1 tab Triamcinolone Acetonide (Triamcinolone 0.1% Cream 15 Gm) 1 applic TOPICAL BID PRN PRN Reason: skin rash Vitals/I&O/Wt Last Vital Signs Temp 97.6 F 07/05/24 03:25 Pulse 62 07/05/24 05:19 Resp 18 07/05/24 03:25 BP 139/72 07/05/24 03:25 Pulse Ox 98 07/05/24 03:25 O2 Del Method Nasal Cannula 07/05/24 03:25 O2 Flow Rate 2 07/05/24 03:25 FiO2 50 07/02/24 00:00 07/04/24 07/05/24 07/05/24 22:59 06:59 14:59 Intake Total 480 / 960 Output Total 200 / 475 250 / 725 Balance 280 / 485 -250 / 235 Weight last 48 hrs Weight 107.093 kg Weight 102.058 kg Weight 102.1 kg Physical Exam Narrative: VS noted lying comfortably in bed heent- nc/at neck supple, no jvp lungs good air movement b/l heart reg, + s1, s2 abd soft, nt, nd, + bs left Femoral dialysis catheter ext + b/l trace feet neuro- a,a,o x 3, from x4, no asterexis Data 07/04/24 04:47 07/05/24 05:26 Micro: Microbiology 07/03/24 14:00 Gram Stain - Final Pleural Fluid Anaerobic Culture - Preliminary Body Fluid Culture - Preliminary A&P Assessment and plan (1) Acute kidney injury superimposed on CKD: 64 yr old man obesity, htn, type 2 dm, HFrEF 1. CKD stage 3b- cr 1.7- 2 mg/dl in August 2023- at that time 3+ ur protein Renal us in August 2023- rt 11.2 cm, left 12.3 cm- read as normal renal us 2. STEMI- w/ paving and surfacing labourer x 2- echo w/ EF of 35-40% 3. EFFUSIONS- s/p THORACENTESIS 4. REGINO on CKD- admission cr was 3.8 mg/dl given cxr w/ Pulm granuloma- please test for m. tb and sarcoid -u/a w/ 4+ protein, 2+ gluc, random microalb >581, microalb/ cr 8544 ur na 48, ur cl 52 -cr guadalupe to 6- now contrast induced REGINO -feels better after HD x 2 -hold dialysis today and monitor for renal recovery encourage fluids -normal c3 and c4 ck 296- not causing REGINO -if cr does not improve, then would place a permacath 5. renal us- there is no hydronephrosis - The wall is very thick and heterogeneous with a lobulated contour compatible with chronic outlet obstruction with lack of distension, cystitis or neurogenic bladder. - There is an irregular echogenic filling defect or mass in the lumen of the urinary bladder may reflect a true mass/neoplasm or blood clot. -HE NEEDS UROLOGY EVLUATION 6. anemia- hgb stable- t sat 20%, ferritin 419- hgb 8.3 -spep- poorly defined band across gamma band- repeat in 3 months -await sife, serologies all negative 7. renal bone mineral metabolism- phos binder, vit d 25, pth 242- replete vit d. monitor phos -repeat pth in a month seen and examined with RN using A/V equipment w/ the AIDE of the RN he consents to telehealth and HD as needed Plan see above Attestations Medical Necessity Statement*: monitor REGINO Time Spent in Patient Care: 16 - 35 minutes (>than 50% of time spent in counselling and/or direct pt care on unit). Coding Level of Care Code Acute Code for Chg Fwd Diagnoses Acute kidney injury superimposed on CKD N17.9; N18.9
[2024-07-05] MEDS: insulin lispro 100 unit/1 mL SUBCUT ×3 (08:48→20:56)
[2024-07-05] MEDS: clopidogrel 75 mg Tablet PO (08:49)
[2024-07-05] MEDS: sennosides-docusate Tablet 1 TAB PO (08:49)
[2024-07-05] MEDS: aspirin 81 mg EC Tablet PO (08:49)
[2024-07-05] MEDS: FUROsemide 10 mg/mL SDV 2mL 20 MG IVP ×2 (08:49→20:56)
[2024-07-05] MEDS: enoxaparin 30 mg/0.3 mL Syringe SUBCUT (08:49)
[2024-07-05] MEDS: amlodipine 5 mg Tablet PO (08:49)
[2024-07-05] MEDS: metoprolol tartrate 50 mg Tablet 75 MG PO (08:58)
--- NOTE | 2024-07-05 09:01 | P.PN_ITS ---
<Statement entered by Washington Tilley M.D - 07/06/24 09:21> Patient was evaluated and cared for in conjunction with an advanced practice practitioner. I personally examined the patient and reviewed the chart and all pertinent data including imaging, telemetry, and laboratory results. I discussed the patient in detail with the advanced practice practitioner. Please see their note for complete progress note, results and agreed upon plan of care for the patient. Patient is feeling well. No chest pain. No significant shortness of breath, GENERAL: Patient is alert and oriented HEART: Regular S1 and S2 LUNGS: Diminished air entry bilaterally EXTREMITIES: Lower extremities with 2+ edema ASSESSMENT AND PLAN: (1) CHF (congestive heart failure) (2) STEMI ( ST elevated myocardial infarction) (3) Hypertension (4) REGINO on CKD Patient awaiting renal recovery. If no significant improvement of creatinine, will need permacath per nephrology recommendations. Continue aspirin, plavix and statin. Uptitrated metoprolol. Continue amlodipine. Appreciate hospitalist team and nephrology input Bladder filling defect, will need urology follow up/ evaluation. Patient's discharge will depend on renal function and need for dialysis assessment per nephrology. His cardiovascular status is stable. Subjective 2 Subjective: He was moved to [facility] floor overnight. He is doing well this morning, no chest pain and currently no shortness of breath. Creatinine 6.0 this morning, potassium 4.6, blood pressure slightly elevated this morning. No plans for dialysis yet today, per nephrology, to monitor for renal recovery. He has made 250mL of urine so far today, with Lasix 20mg IV. Vitals/I&O/Wt Last Vital Signs Temp 97.9 F 07/05/24 08:00 Pulse 72 07/05/24 08:33 Resp 16 07/05/24 08:33 BP 155/87 07/05/24 08:00 Pulse Ox 98 07/05/24 08:33 O2 Del Method Room Air 07/05/24 08:33 O2 Flow Rate 2 07/05/24 03:25 FiO2 50 07/02/24 00:00 07/04/24 07/05/24 07/05/24 22:59 06:59 14:59 Intake Total 480 / 960 360 / 360 Output Total 200 / 725 250 / 725 Balance 280 / 235 -250 / 235 360 / 360 Weight last 48 hrs Weight 236 lb 1.6 oz Weight 225 lb Weight 225 lb 1.471 oz Physical Exam 2 Const: COMMON NORMALS: no acute distress and patient oriented x3 GENERAL APPEARANCE: cooperative and comfortable ORIENTATION/CONSCIOUSNESS: Yes awake, Yes oriented to person, Yes oriented to place and Yes oriented to time Chest: COMMONS NORMALS: normal inspection of the chest and normal palpation of entire chest wall CHEST: Yes Symmetrical chest wall rise Resp: COMMON NORMALS: normal respiratory effort, No retractions, No use of accessory muscles and clear to auscultation bilaterally EFFORT & INSPECTION: Yes symmetric chest movement AUSCULTATION: clear to auscultation bilaterally Cardio: COMMON NORMALS: regular rate, regular rhythm, S1 normal heart sound present, S2 normal heart sound present, No gallops present (Cardio), No clicks present (Cardio), No murmurs present (Cardio) and No rub (Cardio) RATE: r egular rate RHYTHM: regular rhythm HEART SOUNDS: S1 normal heart sound present and S2 normal heart sound present PERIPHERAL PULSES: radial pulses present Extremity: GENERAL: Yes edema (1-2+ pitting edema bilaterally below knee) Neuro: COMMON NORMALS: patient oriented x3 and moves all extremities S ENSORIUM/ORIENTATION: Yes oriented to person, Yes oriented to place and Yes oriented to time Data 07/04/24 04:47 07/05/24 05:26 Micro: Microbiology 07/03/24 14:00 Gram Stain - Final Pleural Fluid Anaerobic Culture - Preliminary Body Fluid Culture - Preliminary A&P Assessment and plan (1) STEMI (ST elevation myocardial infarction): Qualifiers: Involved coronary artery: LAD coronary artery Qualified Code(s): I21.02 - ST elevation (STEMI) myocardial infarction involving left anterior descending coronary artery (2) CHF (congestive heart failure): Qualifiers: Heart failure type: combined systolic and diastolic Heart failure chronicity: acute on chronic Qualified Code(s): I50.43 - Acute on chronic combined systolic (congestive) and diastolic (congestive) heart failure (3) Hypertension: Qualifiers: Hypertension type: primary hypertension Qualified Code(s): I10 - Essential (primary) hypertension (4) Acute kidney injury superimposed on CKD: Plan He is stable from cardiac perspective. Continue aspirin, Plavix, amlodipine, metoprolol and statin. Discharge will depend upon renal status and plan regarding dialysis. Attestations 2 Medical Necessity Statement*: care may cross 2 midnights, depending on renal status and plans for HD. Coding Level of Care Code Acute Code for Chg Fwd Diagnoses ST elevation myocardial infarction involving left anterior descending (LAD) coronary artery I21.02 Involved coronary artery: LAD coronary artery Acute on chronic combined systolic and diastolic congestive heart failure I50.43 Heart failure type: combined systolic and diastolic Heart failure chronicity: acute on chronic Primary hypertension I10 Hypertension type: primary hypertension Acute kidney injury superimposed on CKD N17.9; N18.9
[2024-07-05 10:33] LABS: Glucose Point of Care 182 mg/dL (70-110)
--- NOTE | 2024-07-05 14:51 | PM.PN ---
Subjective Subjective: No new complaints today. Remains on room air. States he feels much better. Urine output charted at 900 cc Medications: Reviewed: Yes Medication Review Details: Current Medications Acetaminophen (Acetaminophen 325 Mg Tablet) 650 mg PO Q6H PRN PRN Reason: MILD PAIN Last Admin: 07/04/24 21:03 Dose: 650 mg Acetaminophen (Acetaminophen 500 Mg Tablet) 500 mg PO Q4H PRN PRN Reason: fever Albuterol/Ipratropium (Ipratropium-Albuterol 3 Ml Neb) 3 ml INHALATION Q6H PRN PRN Reason: SHORTNESS OF BREATH Amlodipine Besylate (Amlodipine 5 Mg Tablet) 5 mg PO DAILY [facility] Last Admin: 07/04/24 08:42 Dose: 5 mg Aspirin (Aspirin 81 Mg Ec Tablet) 81 mg PO DAILY [facility] Last Admin: 07/04/24 08:42 Dose: 81 mg Atorvastatin Calcium (Atorvastatin 40 Mg Tablet) 80 mg PO BEDTIME [facility] Last Admin: 07/04/24 20:28 Dose: 80 mg Atropine Sulfate (Atropine 1 Mg/Ml Sdv 1 Ml) 0.5 mg IVP PRN PRN PRN Reason: Symptomatic bradycardia Calamine (Calamine Lotion 177 Ml Btl) 1 applic TOPICAL Q4H PRN PRN Reason: ITCHING Last Admin: 07/04/24 11:39 Dose: 1 applic Clopidogrel Bisulfate (Clopidogrel 75 Mg Tablet) 75 mg PO DAILY [facility] Last Admin: 07/04/24 08:42 Dose: 75 mg Enoxaparin Sodium (Enoxaparin 30 Mg/0.3 Ml Syringe) 30 mg SUBCUT Q24H [facility] Last Admin: 07/04/24 08:41 Dose: 30 mg Ergocalciferol (Ergocalciferol (Vitamin D2) 50,000 Unit Capsule) 50,000 unit PO Q7D [facility] Last Admin: 07/01/24 09:48 Dose: 50,000 unit Furosemide (Furosemide 10 Mg/Ml Sdv 2ml) 20 mg IVP Q12H [facility] Last Admin: 07/04/24 20:28 Dose: 20 mg Glucagon (Glucagon 1 Mg/Ml Kit 1 Ml) 1 mg IM ONCE PRN; Protocol PRN Reason: Adult Acute Hypoglycemia Nursing Prot. Norepinephrine Bitartrate (Levophed) 4 mg in 250 mls @ 0 mls/hr IV .Q0M [facility]; Protocol Dextrose (D5w) 500 mls @ 0 mls/hr IV ONCE PRN; Protocol PRN Reason: Adult Acute Hypoglycemia Prot Dextrose (D10w) 125 mls @ 750 mls/hr IV PRN PRN; Protocol PRN Reason: Adult Acute Hypoglycemia Nursing Protocol Dextrose (D10w) 250 mls @ 1,000 mls/hr IV PRN PRN; Protocol PRN Reason: Adult Acute Hypoglycemia Nursing Protocol Insulin Human Lispro (Insulin Lispro 100 Unit/1 Ml) 0 unit SUBCUT WM&BEDTIME [facility]; Protocol Last Admin: 07/04/24 21:04 Dose: Not Given Metoprolol Tartrate (Metoprolol Tartrate 50 Mg Tablet) 75 mg PO BID@0900,2100 [facility] Last Admin: 07/04/24 20:27 Dose: 75 mg Naloxone HCl (Naloxone 0.4 Mg/Ml Sdv) 0.1 mg IVP Q2M PRN PRN Reason: RESPIRATORY RATE < 8/MIN Nitroglycerin (Nitroglycerin 0.4 Mg Sublingual Tablet) 0.4 mg SUBLINGUAL Q5M PRN PRN Reason: CHEST PAIN Ondansetron HCl (Ondansetron 2 Mg/Ml Sdv 2 Ml) 4 mg IVP Q6H PRN PRN Reason: NAUSEA AND VOMITING Last Admin: 06/30/24 21:16 Dose: 4 mg Senna/Docusate Sodium (Sennosides-Docusate Tablet) 1 tab PO DAILY [facility] Last Admin: 07/04/24 08:42 Dose: 1 tab Triamcinolone Acetonide (Triamcinolone 0.1% Cream 15 Gm) 1 applic TOPICAL BID PRN PRN Reason: skin rash Vitals/I&O/Wt Last Vital Signs Temp 97.5 F L 07/05/24 11:51 Pulse 64 07/05/24 11:51 Resp 18 07/05/24 11:51 BP 131/67 07/05/24 11:51 Pulse Ox 96 07/05/24 11:51 O2 Del Method Room Air 07/05/24 11:51 O2 Flow Rate 2 07/05/24 03:25 FiO2 50 07/02/24 00:00 07/04/24 07/05/24 07/05/24 22:59 06:59 14:59 Intake Total 480 / 960 720 / 720 Output Total 200 / 475 250 / 725 500 / 500 Balance 280 / 485 -250 / 235 220 / 220 Weight last 48 hrs Weight 107.093 kg Weight 102.058 kg Weight 102.1 kg Physical Exam Narrative: General: Awake alert and oriented x 3. HEENT: PERRLA, pupils bilaterally equal and reactive, pallors not present Chest: Reduced air entry bilaterally CVS: S1-S2 regular, no murmurs, no tachycardia, no gallops, no rubs Abdomen: Soft, nontender, no organomegaly, bowel sounds present Neuro: No focal deficits, no facial deformity, AO x3, power 5/5 in all limbs Data 07/04/24 04:47 07/05/24 05:26 Micro: Microbiology 07/03/24 14:00 Gram Stain - Final Pleural Fluid Anaerobic Culture - Preliminary Body Fluid Culture - Preliminary A&P Assessment and plan (1) CHF (congestive heart failure): Qualifiers: Heart failure type: combined systolic and diastolic Heart failure chronicity: acute on chronic Qualified Code(s): I50.43 - Acute on chronic combined systolic (congestive) and diastolic (congestive) heart failure (2) Poor compliance: (3) Acute on chronic congestive heart failure: Qualifiers: Heart failure type: systolic Qualified Code(s): I50.23 - Acute on chronic systolic (congestive) heart failure (4) STEMI (ST elevation myocardial infarction): Qualifiers: Involved coronary artery: LAD coronary artery Qualified Code(s): I21.02 - ST elevation (STEMI) myocardial infarction involving left anterior descending coronary artery (5) Hyperlipidemia: Qualifiers: Hyperlipidemia type: mixed hyperlipidemia Qualified Code(s): E78.2 - Mixed hyperlipidemia (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: (7) REGINO (acute kidney injury): (8) Sciatica: (9) Neuropathy, diabetic: Plan STEMI Status post LAD 2 stents Continue dual antiplatelet therapy along statins Patient has been weaned off Levophed Echo report to be followed Acute systolic CHF exacerbation Currently on IV diuretic regimen along BiPAP Hansen catheter refused by the patient, stating that he would like to use urinal Type II diabetic with complications related to neuropathy Continue insulin sliding scale Cardiac consistent carb diet Pulm edema: I have requested BiPAP overnight patient is agreeable DVT prophylaxis: Heparin Will follow along cardiology Full code 06/30/2024 -Patient is status post 2 stents ? Contrast-induced nephropathy versus combination of cardiorenal plus contrast-induced worsening: Creatinine 4.0. ? Consult nephrology. Await recommendations ? Continue insulin sliding scale ? Continue on Lasix 20 IV twice daily patient is fluid overload intermittently diuresis. ? Continue aspirin Plavix atorvastatin ? Medicine will continue to follow along. ? Patient has refused Hansen catheter. 07/01/2024 -Continue Lasix drip at this time. ? Urine output 300 cc overnight. ? Creatinine is worsening. Nephrology following. ? Continue aspirin Plavix atorvastatin ? CT chest abdomen pelvis pending at this time to evaluate for granuloma and because of renal failure ? Renal ultrasound also pending at this time ? Medicine will continue to follow July 02, 2023 Creatinine trending up to 6, remains oliguric. Starting dialysis today. Recommend consulting surgery for placement of HD catheter. Thoracentesis would likely help benefit the patient. Patient states he has previously had thoracentesis in August 2023. He states he was told the He states he has had multiple admissions in the past year related to heart failure however has not needed thoracentesis since August. Thoracentesis and pleural fluid analysis ordered. Diuresis per primary cardiology team July 03, 2024. 64-year-old male with past medical history of nonischemic cardiomyopathy diabetes brought to the emergency room on June 29, 2024 with a STEMI. Patient underwent coronary angiogram underwent revascularization with 2 stents. Shortly after being brought back to the ICU he started to complain of chest discomfort again and underwent a repeat coronary angiogram. This showed patent prior stents without any changes. Hospital course has been notable for acute on chronic systolic CHF exacerbation for which patient was on IV diuresis, development of acute kidney injury asked CKD for which she has been started on hemodialysis. Imaging showed echogenic filling defect/mass in the lumen of the urinary bladder which may be in home sales representative of a mass or neoplasm, he will need urology evaluation shortly after discharge. Unfortunately we do not have urology services available inpatient. He has bilateral pleural effusions, status post thoracentesis on the right side today. There was concern for potential LV thrombus earlier this admission which has been ruled out. Patient is currently on aspirin Plavix atorvastatin. His breathing is improved since initiation of hemodialysis. Also underwent thoracentesis today which has helped. he will be receiving hemodialysis postthoracentesis today. july 04, 2024: Clinically better today. off supplemental 02. Monitoring renal function for potential recovery. PT/OT eval. July 05, 2024 Remains off supplemental oxygen. Creatinine at 6. Awaiting renal recovery to decide regarding long-term dialysis. Did well with physical therapy. QuantiFERON TB screen negative. Mycobacterial smear and culture awaited from pleural fluid. No WBCs, no growth on culture. Diuresis per cardiology and nephrology. Attestations Medical Necessity Statement*: Per admitting Coding Level of Care Code Acute Code for Chg Fwd Diagnoses Acute on chronic combined systolic and diastolic congestive heart failure I50.43 Heart failure type: combined systolic and diastolic Heart failure chronicity: acute on chronic Poor compliance Z91.199 Acute on chronic systolic congestive heart failure I50.23 Heart failure type: systolic ST elevation myocardial infarction involving left anterior descending (LAD) coronary artery I21.02 Involved coronary artery: LAD coronary artery Mixed hyperlipidemia E78.2 Hyperlipidemia type: mixed hyperlipidemia 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
[2024-07-05 16:48] LABS: Glucose Point of Care 143 mg/dL (70-110)
[2024-07-05 19:01] LABS: Immunofixation Serum Normal pattern.
[2024-07-05 20:47] LABS: Glucose Point of Care 227 mg/dL (70-110)
[2024-07-05] MEDS: atorvastatin 40 mg Tablet 80 MG PO (20:56)
[2024-07-05] MEDS: metoprolol tartrate 50 mg Tablet 100 MG PO (20:56)
[2024-07-06] VITALS (10 sets, daily range): BP systolic 130–187; BP diastolic 72–86; PULSE 65–86; RESP 17–24; TEMP 36.5–36.8; O2SAT 94–97
[2024-07-06 05:29] LABS: Alanine Aminotransferase 12 U/L (0-41); Alkaline Phosphatase 120 U/L (40-130); Anion Gap 17.8 (5-19); Aspartate Amino Transferase 13 U/L (0-40); Blood Urea Nitrogen 76 mg/dL (8-23); Calcium 8.1 mg/dL (8.5-10.5); Carbon Dioxide 24 mmol/L (22-29); Chloride 102 mmol/L (98-107); Creatinine Clr Calc Pharmacy 15.8006; Globulin 2.8 g/dL (1.3-4.6); Glomerular Filtration Rate 9.9 mL/min (90-130); Glucose 141 mg/dL (65-115); Osmolality Calculated 313 mOsm/kg (285-295); Phosphorus 6.3 mg/dL (2.5-4.5); Potassium 4.8 mmol/L (3.5-5.1); Sodium 139 mmol/L (136-145); Total Bilirubin 0.2 mg/dL (0.15-1.2); Total Protein 5.8 g/dL (6.6-8.7)
[2024-07-06 06:30] LABS: Glucose Point of Care 193 mg/dL (70-110)
[2024-07-06] MEDS: insulin lispro 100 unit/1 mL SUBCUT ×3 (09:04→22:00)
[2024-07-06] MEDS: amlodipine 5 mg Tablet PO ×2 (09:05→17:49)
[2024-07-06] MEDS: clopidogrel 75 mg Tablet PO (09:05)
[2024-07-06] MEDS: aspirin 81 mg EC Tablet PO (09:05)
[2024-07-06] MEDS: FUROsemide 10 mg/mL SDV 2mL 20 MG IVP ×2 (09:05→20:10)
[2024-07-06] MEDS: sennosides-docusate Tablet 1 TAB PO (09:05)
[2024-07-06] MEDS: enoxaparin 30 mg/0.3 mL Syringe SUBCUT (09:05)
[2024-07-06] MEDS: metoprolol tartrate 50 mg Tablet 100 MG PO ×2 (09:10→20:10)
--- NOTE | 2024-07-06 10:27 | P.PN_ITS ---
Subjective 2 Subjective: Patient is doing well. No chest pain. Vitals/I&O/Wt Last Vital Signs Temp 97.7 F 07/06/24 08:00 Pulse 86 07/06/24 09:09 Resp 18 07/06/24 09:09 BP 130/72 07/06/24 08:00 Pulse Ox 94 07/06/24 09:09 O2 Del Method Room Air 07/06/24 09:09 O2 Flow Rate 2 07/05/24 03:25 FiO2 50 07/02/24 00:00 07/05/24 07/06/24 07/06/24 22:59 06:59 14:59 Intake Total 240 / 960 240 / 240 Output Total 350 / 850 500 / 1350 Balance -110 / 110 -500 / -390 240 / 240 Weight last 48 hrs Weight 238 lb 8 oz Weight 236 lb 1.6 oz Physical Exam 2 Narrative: GENERAL: Patient is alert, awake and oriented x3. [] NECK: No jugular vein distension. [] HEENT: No cyanosis. No icterus. No pallor. [] HEART: Regular rate and rhythm LUNGS: Clear to auscultation bilaterally CENTRAL NERVOUS SYSTEM: Grossly nonfocal. [] EXTREMITIES: Lower extremities with 1+ edema bilaterally. Data 07/04/24 04:47 07/06/24 04:40 Micro: Microbiology 07/03/24 14:00 Gram Stain - Final Pleural Fluid Anaerobic Culture - Preliminary Body Fluid Culture - Preliminary A&P Assessment and plan (1) STEMI (ST elevation myocardial infarction): Qualifiers: Involved coronary artery: LAD coronary artery Qualified Code(s): I21.02 - ST elevation (STEMI) myocardial infarction involving left anterior descending coronary artery (2) Acute on chronic congestive heart failure: Qualifiers: Heart failure type: systolic Qualified Code(s): I50.23 - Acute on chronic systolic (congestive) heart failure (3) Hyperlipidemia: Qualifiers: Hyperlipidemia type: mixed hyperlipidemia Qualified Code(s): E78.2 - Mixed hyperlipidemia (4) CHF (congestive heart failure): Qualifiers: Heart failure type: combined systolic and diastolic Heart failure chronicity: acute on chronic Qualified Code(s): I50.43 - Acute on chronic combined systolic (congestive) and diastolic (congestive) heart failure (5) Hypertension: Qualifiers: Hypertension type: primary hypertension Qualified Code(s): I10 - Essential (primary) hypertension (6) Acute kidney injury superimposed on CKD: Plan We will uptitrate amlodipine to 10 mg daily. Continue metoprolol Continue aspirin, plavix and statin. Appreciate hospitalist team and nephrology input Bladder filling defect, will need urology follow up/ evaluation. Patient's discharge will depend on renal function and need for dialysis assessment per nephrology. His cardiovascular status is stable. Attestations 2 Medical Necessity Statement*: Care expected to cross 2 midnights. Coding Level of Care Code Acute Code for [facility] Diagnoses ST elevation myocardial infarction involving left anterior descending (LAD) coronary artery I21.02 Involved coronary artery: LAD coronary artery Acute on chronic systolic congestive heart failure I50.23 Heart failure type: systolic Mixed hyperlipidemia E78.2 Hyperlipidemia type: mixed hyperlipidemia Acute on chronic combined systolic and diastolic congestive heart failure I50.43 Heart failure type: combined systolic and diastolic Heart failure chronicity: acute on chronic Primary hypertension I10 Hypertension type: primary hypertension Acute kidney injury superimposed on CKD N17.9; N18.9
[2024-07-06 10:33] LABS: Glucose Point of Care 224 mg/dL (70-110)
--- NOTE | 2024-07-06 11:07 | P.PN_ITS ---
Subjective 2 Subjective: on room air Medications: Reviewed: Yes Vitals/I&O/Wt Last Vital Signs Temp 97.7 F 07/06/24 08:00 Pulse 86 07/06/24 09:09 Resp 18 07/06/24 09:09 BP 130/72 07/06/24 08:00 Pulse Ox 94 07/06/24 09:09 O2 Del Method Room Air 07/06/24 09:09 O2 Flow Rate 2 07/05/24 03:25 FiO2 50 07/02/24 00:00 07/05/24 07/06/24 07/06/24 22:59 06:59 14:59 Intake Total 240 / 960 240 / 240 Output Total 350 / 850 500 / 1350 Balance -110 / 110 -500 / -390 240 / 240 Weight last 48 hrs Weight 108.182 kg Weight 107.093 kg Physical Exam 2 Narrative: VS noted lying comfortably in bed heent- nc/at neck supple, no jvp lungs good air movement b/l heart reg, + s1, s2 abd soft, nt, nd, + bs left Femoral dialysis catheter ext + b/l trace feet neuro- a,a,o x 3, from x4, no asterexis Data 07/04/24 04:47 07/06/24 04:40 Micro: Microbiology 07/03/24 14:00 Gram Stain - Final Pleural Fluid Anaerobic Culture - Preliminary Body Fluid Culture - Preliminary A&P Assessment and plan (1) Acute kidney injury superimposed on CKD: 64-year-old male with hypertension diabetes CHF, chronic kidney disease stage III baseline creatinine in the 2 range, presented with REGINO ST elevation OR 1. Acute on chronic kidney disease stage IIIb: Baseline creatinine in the 2 range now has REGINO with a creatinine of 6 likely ATN and contrast nephropathy. -Status post temporary catheter placement and HD x 2 sessions and last HD was on Tuesday. -Creatinine trending down slowly and urine output picking up, holding off on HD and watch for recovery over the weekend -Renal ultrasound thickened and lobulated contour with chronic outlet obstruction with concern for mass versus clot in the bladder. Need urology referral as outpatient. -UA with 4+ protein, nephrotic range proteinuria-M ACR [id number]. 2. Nephrotic range proteinuria: Likely from diabetic nephropathy., Refer to nephrology as outpatient for further workup including renal biopsy as outpatient. Other serologies pending 3. STEMI, status post left heart cath, ejection fraction 35 to 40% 4. Bilateral pleural effusions, status post thoracentesis 5. Anemia, Tsat 20%, monitor, will order ELROY 6. Renal bone metabolism , replating vitamin D, added Phos binder he consents to telehealth and HD as needed Plan see above Attestations 2 Medical Necessity Statement*: per medicine Coding Level of Care Code Acute Code for Chg Fwd Diagnoses Acute kidney injury superimposed on CKD N17.9; N18.9
--- NOTE | 2024-07-06 12:22 | PC.SOCIAL ---
IMM Update pg 2 of IMM Updated and reviewed w/ patient. Copy provided and copy dated, initialed and placed in chart.
[2024-07-06 15:16] LABS: Glomerular Bsmt Membrane IGG <1.0 AI
[2024-07-06 16:50] LABS: Glucose Point of Care 145 mg/dL (70-110)
--- NOTE | 2024-07-06 18:27 | ECG_ITS ---
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[id number] Requested By: Washington Tilley Order Number: [id number] Reading MD: HENOK DOLL Measurements Intervals [place] Rate: 74 P: 1 VA: 127 QRS: -25 QRSD: 133 T: 103 QT: 400 QTc: 446 Interpretive Statements SINUS RHYTHM INTRAVENTRICULAR CONDUCTION DELAY [130+ ms QRS DURATION] ANTEROSEPTAL MYOCARDIAL INFARCTION , OF INDETERMINATE AGE [40+ ms Q WAVE IN V1-V4] Compared to ECG 07/01/2024 18:34:17 Intraventricular conduction delay now present Ectopic atrial rhythm no longer present Myocardial infarct finding still present Electronically Signed On 07-07-2024 18:40:41 [employer] by HENOK DOLL [email or web address]
--- NOTE | 2024-07-06 19:19 | XRR_ITS ---
PROCEDURE INFORMATION: Exam: XR Chest Exam date and time: 07/06/2024 7:39 PM Age: 64 years old Clinical indication: Chest pressure; Prior surgery; Surgery date: <1 month; Surgery type: Cardiac stents; Patient HX: Sudden onset chest pain; Recent stemi with stent placement approx 2 weeks ago TECHNIQUE: Imaging protocol: Radiologic exam of the chest. Views: 1 view. COMPARISON: CR XR chest 1V 22300 07/03/2024 2:40 PM FINDINGS: Lungs: Unremarkable. No consolidation. Pleural spaces: Irregular opacities in the lung bases with small bilateral pleural effusions. Heart/Mediastinum: Unremarkable. No cardiomegaly. Bones/joints: Unremarkable. XR/XR chest 1V portable [id number] IMPRESSION: Irregular opacities in the lung bases with small bilateral pleural effusions.
--- NOTE | 2024-07-06 19:38 | PC.NURSE ---
at approx. 1820, pt c/o of cp 02/03. ekg done at bedside, dr. godfrey notified, will come to bedside to see pt.
[2024-07-06 20:08] LABS: Amylase, Pleural Fluid <10 U/L
[2024-07-06] MEDS: atorvastatin 40 mg Tablet 80 MG PO (20:10)
[2024-07-06] MEDS: morphine 4 mg/mL SDV 1 mL 2 MG IVP (20:14)
[2024-07-06 21:39] LABS: Glucose Point of Care 281 mg/dL (70-110)
[2024-07-07] VITALS (7 sets, daily range): BP systolic 132–159; BP diastolic 73–86; PULSE 64–72; RESP 17–19; TEMP 36.4–36.6; O2SAT 91–96
[2024-07-07 03:07] LABS: Glucose Point of Care 118 mg/dL (70-110)
[2024-07-07 03:40] LABS: Alanine Aminotransferase 13 U/L (0-41); Albumin Level 3.2 g/dL (3.5-5.2); Alkaline Phosphatase 128 U/L (40-130); Anion Gap 19.7 (5-19); Aspartate Amino Transferase 14 U/L (0-40); Calcium 8.6 mg/dL (8.5-10.5); Carbon Dioxide 24 mmol/L (22-29); Chloride 99 mmol/L (98-107); Creatinine Clr Calc Pharmacy 17.2913; Globulin 3.2 g/dL (1.3-4.6); Glucose 106 mg/dL (65-115); Osmolality Calculated 311 mOsm/kg (285-295); Phosphorus 5.4 mg/dL (2.5-4.5); Potassium 4.7 mmol/L (3.5-5.1); Sodium 138 mmol/L (136-145); Total Bilirubin 0.3 mg/dL (0.15-1.2); Total Protein 6.4 g/dL (6.6-8.7)
[2024-07-07 03:50] LABS: Blood Urea Nitrogen 81 mg/dL (8-23)
[2024-07-07 06:51] LABS: Glucose Point of Care 223 mg/dL (70-110)
--- NOTE | 2024-07-07 06:58 | P.PN_ITS ---
Subjective 2 Subjective: no new c/o Medications: Reviewed: Yes Vitals/I&O/Wt Last Vital Signs Temp 97.8 F 07/07/24 04:00 Pulse 71 07/07/24 06:00 Resp 19 H 07/07/24 04:00 BP 154/75 07/07/24 04:00 Pulse Ox 91 07/07/24 04:00 O2 Del Method Room Air 07/07/24 04:00 O2 Flow Rate 2 07/05/24 03:25 FiO2 50 07/02/24 00:00 07/06/24 07/06/24 07/07/24 14:59 22:59 06:59 Intake Total 360 / 360 480 / 840 Output Total 200 / 200 650 / 850 Balance 360 / 360 280 / 640 -650 / -10 Weight last 48 hrs Weight 109.361 kg Weight 108.182 kg Physical Exam 2 Narrative: VS noted lying comfortably in bed heent- nc/at neck supple, no jvp lungs good air movement b/l heart reg, + s1, s2 abd soft, nt, nd, + bs left Femoral dialysis catheter ext + b/l trace feet neuro- a,a,o x 3, from x4, no asterexis Data 07/04/24 04:47 07/07/24 03:03 Micro: Microbiology 07/03/24 14:00 Mycobacterial Smear - Preliminary Body Fluids - Pleura 07/03/24 14:00 Gram Stain - Final Pleural Fluid Anaerobic Culture - Preliminary Body Fluid Culture - Final A&P Assessment and plan (1) Acute kidney injury superimposed on CKD: 64-year-old male with hypertension diabetes CHF, chronic kidney disease stage III baseline creatinine in the 2 range, presented with REGINO ST elevation [place] 1. Acute on chronic kidney disease stage IIIb: Baseline creatinine in the 2 range now has REGINO with a creatinine of 6 likely ATN and contrast nephropathy. -Status post temporary catheter placement and HD x 2 sessions and last HD was on Tuesday. -Creatinine trending down slowly and urine output picking up, holding off on HD and watch for recovery over the weekend -Renal ultrasound thickened and lobulated contour with chronic outlet obstruction with concern for mass versus clot in the bladder. Need urology referral as outpatient. -UA with 4+ protein, nephrotic range proteinuria-M ACR [id number]. 2. Nephrotic range proteinuria: Likely from diabetic nephropathy., Refer to nephrology as outpatient for further workup including renal biopsy as outpatient. Other serologies pending 3. STEMI, status post left heart cath, ejection fraction 35 to 40% 4. Bilateral pleural effusions, status post thoracentesis 5. Anemia, Tsat 20%, monitor, will order ELROY 6. Renal bone metabolism , replating vitamin D, added Phos binder he consents to telehealth and HD as needed Plan see above Attestations 2 Medical Necessity Statement*: per medicine Coding Level of Care Code Acute Code for Chg Fwd Diagnoses Acute kidney injury superimposed on CKD N17.9; N18.9
[2024-07-07] MEDS: amlodipine 5 mg Tablet PO ×2 (09:10→17:25)
[2024-07-07] MEDS: sennosides-docusate Tablet 1 TAB PO (09:10)
[2024-07-07] MEDS: FUROsemide 10 mg/mL SDV 2mL 20 MG IVP ×2 (09:10→20:22)
[2024-07-07] MEDS: aspirin 81 mg EC Tablet PO (09:10)
[2024-07-07] MEDS: clopidogrel 75 mg Tablet PO (09:10)
[2024-07-07] MEDS: enoxaparin 30 mg/0.3 mL Syringe SUBCUT (09:16)
[2024-07-07] MEDS: metoprolol tartrate 50 mg Tablet 100 MG PO ×2 (09:21→20:21)
[2024-07-07 10:54] LABS: ANCA Screen NEGATIVE (NEGATIVE)
[2024-07-07 11:44] LABS: Glucose Point of Care 320 mg/dL (70-110)
[2024-07-07] MEDS: insulin lispro 100 unit/1 mL SUBCUT (12:16)
[2024-07-07 14:25] LABS: Glucose Point of Care 182 mg/dL (70-110)
--- NOTE | 2024-07-07 15:14 | PM.PN ---
Subjective Subjective: no acute interim events,on RA today, holding off HD, cr improving at 5.4, urine output > 900 cc , BP trending towards HTN now systolic 150-170 Medications: Reviewed: Yes Medication Review Details: Current Medications Acetaminophen (Acetaminophen 325 Mg Tablet) 650 mg PO Q6H PRN PRN Reason: MILD PAIN Last Admin: 07/04/24 21:03 Dose: 650 mg Acetaminophen (Acetaminophen 500 Mg Tablet) 500 mg PO Q4H PRN PRN Reason: fever Albuterol/Ipratropium (Ipratropium-Albuterol 3 Ml Neb) 3 ml INHALATION Q6H PRN PRN Reason: SHORTNESS OF BREATH Amlodipine Besylate (Amlodipine 5 Mg Tablet) 5 mg PO DAILY [facility] Last Admin: 07/04/24 08:42 Dose: 5 mg Aspirin (Aspirin 81 Mg Ec Tablet) 81 mg PO DAILY [facility] Last Admin: 07/04/24 08:42 Dose: 81 mg Atorvastatin Calcium (Atorvastatin 40 Mg Tablet) 80 mg PO BEDTIME [facility] Last Admin: 07/04/24 20:28 Dose: 80 mg Atropine Sulfate (Atropine 1 Mg/Ml Sdv 1 Ml) 0.5 mg IVP PRN PRN PRN Reason: Symptomatic bradycardia Calamine (Calamine Lotion 177 Ml Btl) 1 applic TOPICAL Q4H PRN PRN Reason: ITCHING Last Admin: 07/04/24 11:39 Dose: 1 applic Clopidogrel Bisulfate (Clopidogrel 75 Mg Tablet) 75 mg PO DAILY [facility] Last Admin: 07/04/24 08:42 Dose: 75 mg Enoxaparin Sodium (Enoxaparin 30 Mg/0.3 Ml Syringe) 30 mg SUBCUT Q24H [facility] Last Admin: 07/04/24 08:41 Dose: 30 mg Ergocalciferol (Ergocalciferol (Vitamin D2) 50,000 Unit Capsule) 50,000 unit PO Q7D [facility] Last Admin: 07/01/24 09:48 Dose: 50,000 unit Furosemide (Furosemide 10 Mg/Ml Sdv 2ml) 20 mg IVP Q12H [facility] Last Admin: 07/04/24 20:28 Dose: 20 mg Glucagon (Glucagon 1 Mg/Ml Kit 1 Ml) 1 mg IM ONCE PRN; Protocol PRN Reason: Adult Acute Hypoglycemia Nursing Prot. Norepinephrine Bitartrate (Levophed) 4 mg in 250 mls @ 0 mls/hr IV .Q0M [facility]; Protocol Dextrose (D5w) 500 mls @ 0 mls/hr IV ONCE PRN; Protocol PRN Reason: Adult Acute Hypoglycemia Prot Dextrose (D10w) 125 mls @ 750 mls/hr IV PRN PRN; Protocol PRN Reason: Adult Acute Hypoglycemia Nursing Protocol Dextrose (D10w) 250 mls @ 1,000 mls/hr IV PRN PRN; Protocol PRN Reason: Adult Acute Hypoglycemia Nursing Protocol Insulin Human Lispro (Insulin Lispro 100 Unit/1 Ml) 0 unit SUBCUT WM&BEDTIME [facility]; Protocol Last Admin: 07/04/24 21:04 Dose: Not Given Metoprolol Tartrate (Metoprolol Tartrate 50 Mg Tablet) 75 mg PO BID@0900,2100 [facility] Last Admin: 07/04/24 20:27 Dose: 75 mg Naloxone HCl (Naloxone 0.4 Mg/Ml Sdv) 0.1 mg IVP Q2M PRN PRN Reason: RESPIRATORY RATE < 8/MIN Nitroglycerin (Nitroglycerin 0.4 Mg Sublingual Tablet) 0.4 mg SUBLINGUAL Q5M PRN PRN Reason: CHEST PAIN Ondansetron HCl (Ondansetron 2 Mg/Ml Sdv 2 Ml) 4 mg IVP Q6H PRN PRN Reason: NAUSEA AND VOMITING Last Admin: 06/30/24 21:16 Dose: 4 mg Senna/Docusate Sodium (Sennosides-Docusate Tablet) 1 tab PO DAILY [facility] Last Admin: 07/04/24 08:42 Dose: 1 tab Triamcinolone Acetonide (Triamcinolone 0.1% Cream 15 Gm) 1 applic TOPICAL BID PRN PRN Reason: skin rash Vitals/I&O/Wt Last Vital Signs Temp 97.7 F 07/07/24 13:13 Pulse 69 07/07/24 13:13 Resp 18 07/07/24 13:13 BP 155/77 07/07/24 13:13 Pulse Ox 94 07/07/24 13:13 O2 Del Method Room Air 07/07/24 13:13 O2 Flow Rate 2 07/05/24 03:25 FiO2 50 07/02/24 00:00 07/07/24 07/07/24 07/07/24 06:59 14:59 22:59 Intake Total 960 / 960 Output Total 650 / 850 200 / 200 Balance -650 / -10 760 / 760 Weight last 48 hrs Weight 109.361 kg Weight 108.182 kg Physical Exam Narrative: General: Awake alert and oriented x 3. HEENT: PERRLA, pupils bilaterally equal and reactive, pallors not present Chest: Reduced air entry bilaterally CVS: S1-S2 regular, no murmurs, no tachycardia, no gallops, no rubs Abdomen: Soft, nontender, no organomegaly, bowel sounds present Neuro: No focal deficits, no facial deformity, AO x3, power 5/5 in all limbs Data 07/04/24 04:47 07/07/24 03:03 Micro: Microbiology 07/03/24 14:00 Mycobacterial Smear - Preliminary Body Fluids - Pleura 07/03/24 14:00 Gram Stain - Final Pleural Fluid Anaerobic Culture - Preliminary Body Fluid Culture - Final A&P Assessment and plan (1) CHF (congestive heart failure): Qualifiers: Heart failure type: combined systolic and diastolic Heart failure chronicity: acute on chronic Qualified Code(s): I50.43 - Acute on chronic combined systolic (congestive) and diastolic (congestive) heart failure (2) Poor compliance: (3) Acute on chronic congestive heart failure: Qualifiers: Heart failure type: systolic Qualified Code(s): I50.23 - Acute on chronic systolic (congestive) heart failure (4) STEMI (ST elevation myocardial infarction): Qualifiers: Involved coronary artery: LAD coronary artery Qualified Code(s): I21.02 - ST elevation (STEMI) myocardial infarction involving left anterior descending coronary artery (5) Hyperlipidemia: Qualifiers: Hyperlipidemia type: mixed hyperlipidemia Qualified Code(s): E78.2 - Mixed hyperlipidemia (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: (7) REGINO (acute kidney injury): (8) Sciatica: (9) Neuropathy, diabetic: Plan STEMI Status post LAD 2 stents Continue dual antiplatelet therapy along statins Patient has been weaned off Levophed Echo report to be followed Acute systolic CHF exacerbation Currently on IV diuretic regimen along BiPAP Hansen catheter refused by the patient, stating that he would like to use urinal Type II diabetic with complications related to neuropathy Continue insulin sliding scale Cardiac consistent carb diet Pulm edema: I have requested BiPAP overnight patient is agreeable DVT prophylaxis: Heparin Will follow along cardiology Full code 06/30/2024 -Patient is status post 2 stents ? Contrast-induced nephropathy versus combination of cardiorenal plus contrast-induced worsening: Creatinine 4.0. ? Consult nephrology. Await recommendations ? Continue insulin sliding scale ? Continue on Lasix 20 IV twice daily patient is fluid overload intermittently diuresis. ? Continue aspirin Plavix atorvastatin ? Medicine will continue to follow along. ? Patient has refused Hansen catheter. 07/01/2024 -Continue Lasix drip at this time. ? Urine output 300 cc overnight. ? Creatinine is worsening. Nephrology following. ? Continue aspirin Plavix atorvastatin ? CT chest abdomen pelvis pending at this time to evaluate for granuloma and because of renal failure ? Renal ultrasound also pending at this time ? Medicine will continue to follow July 02, 2023 Creatinine trending up to 6, remains oliguric. Starting dialysis today. Recommend consulting surgery for placement of HD catheter. Thoracentesis would likely help benefit the patient. Patient states he has previously had thoracentesis in August 2023. He states he was told the He states he has had multiple admissions in the past year related to heart failure however has not needed thoracentesis since August. Thoracentesis and pleural fluid analysis ordered. Diuresis per primary cardiology team July 03, 2024. 64-year-old male with past medical history of nonischemic cardiomyopathy diabetes brought to the emergency room on June 29, 2024 with a STEMI. Patient underwent coronary angiogram underwent revascularization with 2 stents. Shortly after being brought back to the ICU he started to complain of chest discomfort again and underwent a repeat coronary angiogram. This showed patent prior stents without any changes. Hospital course has been notable for acute on chronic systolic CHF exacerbation for which patient was on IV diuresis, development of acute kidney injury asked CKD for which she has been started on hemodialysis. Imaging showed echogenic filling defect/mass in the lumen of the urinary bladder which may be sales and marketing representative of a mass or neoplasm, he will need urology evaluation shortly after discharge. Unfortunately we do not have urology services available inpatient. He has bilateral pleural effusions, status post thoracentesis on the right side today. There was concern for potential LV thrombus earlier this admission which has been ruled out. Patient is currently on aspirin Plavix atorvastatin. His breathing is improved since initiation of hemodialysis. Also underwent thoracentesis today which has helped. he will be receiving hemodialysis postthoracentesis today. july 04, 2024: Clinically better today. off supplemental 02. Monitoring renal function for potential recovery. PT/OT eval. July 05, 2024 Remains off supplemental oxygen. Creatinine at 6. Awaiting renal recovery to decide regarding long-term dialysis. Did well with physical therapy. QuantiFERON TB screen negative. Mycobacterial smear and culture awaited from pleural fluid. No WBCs, no growth on culture. Diuresis per cardiology and nephrology. July 07, 2024 : On RA today, no acute interim events. Cr better, urine putput > 900cc. Plan to monitor renal function over the weekend off dialysis to decide regarding intermediate card tender HD vs discontinuation of further sessions. SBP trending to HTN now, resume home med hydralazine , lower dose of 10TID for now , if tolerated, then to uptitrate Attestations Medical Necessity Statement*: per admitting Coding Level of Care Code Acute Code for Chg Fwd Diagnoses Acute on chronic combined systolic and diastolic congestive heart failure I50.43 Heart failure type: combined systolic and diastolic Heart failure chronicity: acute on chronic Poor compliance Z91.199 Acute on chronic systolic congestive heart failure I50.23 Heart failure type: systolic ST elevation myocardial infarction involving left anterior descending (LAD) coronary artery I21.02 Involved coronary artery: LAD coronary artery Mixed hyperlipidemia E78.2 Hyperlipidemia type: mixed hyperlipidemia 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
[2024-07-07 15:18] LABS: Vit D 1,25 (Oh)2, Total <8 pg/mL (18-72); Vit D2 1,25 (Oh)2 <8 pg/mL; Vit D3 1,25 (Oh)2 <8 pg/mL
[2024-07-07 17:04] LABS: Glucose Point of Care 148 mg/dL (70-110)
--- NOTE | 2024-07-07 18:13 | P.PN_ITS ---
Subjective 2 Subjective: Patient had chest pain overnight it was atypical brief sharp, x-ray chest did not show significant volume overload status, otherwise no overnight event this morning doing fine denies any complaint Medications: Reviewed: Yes Medication Review Details: Current Medications Acetaminophen (Acetaminophen 325 Mg Tablet) 650 mg PO Q6H PRN PRN Reason: MILD PAIN Last Admin: 07/04/24 21:03 Dose: 650 mg Acetaminophen (Acetaminophen 500 Mg Tablet) 500 mg PO Q4H PRN PRN Reason: fever Albuterol/Ipratropium (Ipratropium-Albuterol 3 Ml Neb) 3 ml INHALATION Q6H PRN PRN Reason: SHORTNESS OF BREATH Amlodipine Besylate (Amlodipine 5 Mg Tablet) 5 mg PO DAILY [facility] Last Admin: 07/04/24 08:42 Dose: 5 mg Aspirin (Aspirin 81 Mg Ec Tablet) 81 mg PO DAILY [facility] Last Admin: 07/04/24 08:42 Dose: 81 mg Atorvastatin Calcium (Atorvastatin 40 Mg Tablet) 80 mg PO BEDTIME [facility] Last Admin: 07/04/24 20:28 Dose: 80 mg Atropine Sulfate (Atropine 1 Mg/Ml Sdv 1 Ml) 0.5 mg IVP PRN PRN PRN Reason: Symptomatic bradycardia Calamine (Calamine Lotion 177 Ml Btl) 1 applic TOPICAL Q4H PRN PRN Reason: ITCHING Last Admin: 07/04/24 11:39 Dose: 1 applic Clopidogrel Bisulfate (Clopidogrel 75 Mg Tablet) 75 mg PO DAILY [facility] Last Admin: 07/04/24 08:42 Dose: 75 mg Enoxaparin Sodium (Enoxaparin 30 Mg/0.3 Ml Syringe) 30 mg SUBCUT Q24H [facility] Last Admin: 07/04/24 08:41 Dose: 30 mg Ergocalciferol (Ergocalciferol (Vitamin D2) 50,000 Unit Capsule) 50,000 unit PO Q7D [facility] Last Admin: 07/01/24 09:48 Dose: 50,000 unit Furosemide (Furosemide 10 Mg/Ml Sdv 2ml) 20 mg IVP Q12H [facility] Last Admin: 07/04/24 20:28 Dose: 20 mg Glucagon (Glucagon 1 Mg/Ml Kit 1 Ml) 1 mg IM ONCE PRN; Protocol PRN Reason: Adult Acute Hypoglycemia Nursing Prot. Norepinephrine Bitartrate (Levophed) 4 mg in 250 mls @ 0 mls/hr IV .Q0M [facility]; Protocol Dextrose (D5w) 500 mls @ 0 mls/hr IV ONCE PRN; Protocol PRN Reason: Adult Acute Hypoglycemia Prot Dextrose (D10w) 125 mls @ 750 mls/hr IV PRN PRN; Protocol PRN Reason: Adult Acute Hypoglycemia Nursing Protocol Dextrose (D10w) 250 mls @ 1,000 mls/hr IV PRN PRN; Protocol PRN Reason: Adult Acute Hypoglycemia Nursing Protocol Insulin Human Lispro (Insulin Lispro 100 Unit/1 Ml) 0 unit SUBCUT WM&BEDTIME [facility]; Protocol Last Admin: 07/04/24 21:04 Dose: Not Given Metoprolol Tartrate (Metoprolol Tartrate 50 Mg Tablet) 75 mg PO BID@0900,2100 [facility] Last Admin: 07/04/24 20:27 Dose: 75 mg Naloxone HCl (Naloxone 0.4 Mg/Ml Sdv) 0.1 mg IVP Q2M PRN PRN Reason: RESPIRATORY RATE < 8/MIN Nitroglycerin (Nitroglycerin 0.4 Mg Sublingual Tablet) 0.4 mg SUBLINGUAL Q5M PRN PRN Reason: CHEST PAIN Ondansetron HCl (Ondansetron 2 Mg/Ml Sdv 2 Ml) 4 mg IVP Q6H PRN PRN Reason: NAUSEA AND VOMITING Last Admin: 06/30/24 21:16 Dose: 4 mg Senna/Docusate Sodium (Sennosides-Docusate Tablet) 1 tab PO DAILY [facility] Last Admin: 07/04/24 08:42 Dose: 1 tab Triamcinolone Acetonide (Triamcinolone 0.1% Cream 15 Gm) 1 applic TOPICAL BID PRN PRN Reason: skin rash Vitals/I&O/Wt Last Vital Signs Temp 97.6 F 07/07/24 16:36 Pulse 64 07/07/24 16:36 Resp 18 07/07/24 16:36 BP 132/86 07/07/24 16:36 Pulse Ox 96 07/07/24 16:36 O2 Del Method Room Air 07/07/24 16:36 O2 Flow Rate 2 07/05/24 03:25 FiO2 50 07/02/24 00:00 07/07/24 07/07/24 07/07/24 06:59 14:59 22:59 Intake Total 960 / 960 Output Total 650 / 850 200 / 200 Balance -650 / -10 760 / 760 Weight last 48 hrs Weight 241 lb 1.6 oz Weight 238 lb 8 oz Physical Exam 2 Const: OTHER: GENERAL: Patient is alert, awake and oriented x3. HEART: Regular S1 and S2. No murmur, rub or gallop. LUNGS: Clear to auscultate bilaterally. CENTRAL NERVOUS SYSTEM: Grossly nonfocal. EXTREMITIES: Lower extremities with out edema bilaterally. Data 07/04/24 04:47 07/07/24 03:03 Micro: Microbiology 07/03/24 14:00 Gram Stain - Final Pleural Fluid Anaerobic Culture - Preliminary Body Fluid Culture - Final 07/03/24 14:00 Mycobacterial Smear - Preliminary Body Fluids - Pleura A&P Assessment and plan (1) STEMI (ST elevation myocardial infarction): Qualifiers: Involved coronary artery: LAD coronary artery Qualified Code(s): I21.02 - ST elevation (STEMI) myocardial infarction involving left anterior descending coronary artery (2) Acute on chronic congestive heart failure: Qualifiers: Heart failure type: systolic Qualified Code(s): I50.23 - Acute on chronic systolic (congestive) heart failure (3) Hyperlipidemia: Qualifiers: Hyperlipidemia type: mixed hyperlipidemia Qualified Code(s): E78.2 - Mixed hyperlipidemia (4) CHF (congestive heart failure): Qualifiers: Heart failure type: combined systolic and diastolic Heart failure chronicity: acute on chronic Qualified Code(s): I50.43 - Acute on chronic combined systolic (congestive) and diastolic (congestive) heart failure (5) Hypertension: Qualifiers: Hypertension type: primary hypertension Qualified Code(s): I10 - Essential (primary) hypertension (6) Acute kidney injury superimposed on CKD: Plan Currently blood pressure has improved, amlodipine is 5 mg twice daily if needed hydralazine can be titrated up to 25 3 times daily otherwise continue current regimen including aspirin statin beta-kimani Once okay with nephrology and medicine may can discharge Attestations 2 Medical Necessity Statement*: As per medicine and nephrology Coding Level of Care Code Acute Code for [facility] Fwd Diagnoses ST elevation myocardial infarction involving left anterior descending (LAD) coronary artery I21.02 Involved coronary artery: LAD coronary artery Acute on chronic systolic congestive heart failure I50.23 Heart failure type: systolic Mixed hyperlipidemia E78.2 Hyperlipidemia type: mixed hyperlipidemia Acute on chronic combined systolic and diastolic congestive heart failure I50.43 Heart failure type: combined systolic and diastolic Heart failure chronicity: acute on chronic Primary hypertension I10 Hypertension type: primary hypertension Acute kidney injury superimposed on CKD N17.9; N18.9
[2024-07-07] MEDS: hyDRALAzine 10 mg Tablet PO (20:21)
[2024-07-07] MEDS: atorvastatin 40 mg Tablet 80 MG PO (20:21)
--- NOTE | 2024-07-07 20:40 | PC.NURSE ---
Patient informed he has a blood sugar of 148 and he has insulin due; patient politely refusing tonights dose of insulin; physician notified.
[2024-07-07 20:50] LABS: Glucose Point of Care 300 mg/dL (70-110)
[2024-07-08] VITALS (8 sets, daily range): BP systolic 144–184; BP diastolic 63–73; PULSE 65–77; RESP 15–19; TEMP 36.5–37; O2SAT 92–96
[2024-07-08 05:56] LABS: Basophils # 0.1 10^3/uL (0.0-0.1); Basophils % 0.7 %; Eosinophils % 0.5 %; Hematocrit 26.1 % (37-53); Lymphocytes # 1.9 10^3/uL (0.8-4.8); Lymphocytes % 24.9 %; Mean Corpuscular HGB Conc 32.2 g/dL (30-55); Mean Corpuscular Hemoglobin 27.3 pg (27-33); Mean Corpuscular Volume 84.7 fl (82-101); Mean Platelet Volume 10.7 fL (7.4-10.4); Monocytes # 0.6 10^3/uL (0.2-0.9); Monocytes % 8.2 %; Neutrophils # 4.93 10^3/uL (1.8-7.7); Neutrophils % 65.3 %; Nucleated Red Blood Cells % 0 %; Platelet Count 263 10^3/cmm (157-399); Red Blood Count 3.08 10^6/uL (3.85-5.65); Red Cell Distribution Width 14.1 % (12.1-15.1); White Blood Count 7.55 10^3/uL (3.29-11.43)
[2024-07-08 06:13] LABS: Magnesium 1.9 mg/dL (1.7-2.3); Phosphorus 4.9 mg/dL (2.5-4.5)
[2024-07-08 06:16] LABS: Alanine Aminotransferase 11 U/L (0-41); Alkaline Phosphatase 119 U/L (40-130); Anion Gap 16.7 (5-19); Aspartate Amino Transferase 11 U/L (0-40); Blood Urea Nitrogen 76 mg/dL (8-23); Calcium 8.5 mg/dL (8.5-10.5); Carbon Dioxide 24 mmol/L (22-29); Chloride 100 mmol/L (98-107); Creatinine Clr Calc Pharmacy 18.4374; Globulin 2.3 g/dL (1.3-4.6); Glomerular Filtration Rate 11.8 mL/min (90-130); Glucose 216 mg/dL (65-115); Osmolality Calculated 311 mOsm/kg (285-295); Potassium 4.7 mmol/L (3.5-5.1); Sodium 136 mmol/L (136-145); Total Bilirubin 0.2 mg/dL (0.15-1.2); Total Protein 5.3 g/dL (6.6-8.7)
[2024-07-08 06:56] LABS: Glucose Point of Care 215 mg/dL (70-110)
--- NOTE | 2024-07-08 07:43 | P.PN_ITS ---
Subjective 2 Subjective: no new complaints Medications: Reviewed: Yes Vitals/I&O/Wt Last Vital Signs Temp 97.7 F 07/08/24 04:00 Pulse 69 07/08/24 04:00 Resp 18 07/08/24 04:00 BP 146/66 07/08/24 04:00 Pulse Ox 93 07/08/24 04:00 O2 Del Method Room Air 07/08/24 04:00 O2 Flow Rate 2 07/05/24 03:25 FiO2 50 07/02/24 00:00 07/07/24 07/08/24 07/08/24 22:59 06:59 14:59 Intake Total 720 / 1680 Output Total 700 / 900 500 / 1400 Balance 20 / 780 -500 / 280 Weight last 48 hrs Weight 109.452 kg Weight 109.361 kg Physical Exam 2 Narrative: VS noted lying comfortably in bed heent- nc/at neck supple, no jvp lungs good air movement b/l heart reg, + s1, s2 abd soft, nt, nd, + bs left Femoral dialysis catheter ext + b/l trace feet neuro- a,a,o x 3, from x4, no asterexis Data 07/08/24 05:43 07/08/24 05:43 Micro: Microbiology 07/03/24 14:00 Gram Stain - Final Pleural Fluid Anaerobic Culture - Preliminary Body Fluid Culture - Final A&P Assessment and plan (1) Acute kidney injury superimposed on CKD: 64-year-old male with hypertension diabetes CHF, chronic kidney disease stage III baseline creatinine in the 2 range, presented with REGINO ST elevation [place] 1. Acute on chronic kidney disease stage IIIb: Baseline creatinine in the 2 range now has REGINO with a creatinine of 6 likely ATN and contrast nephropathy. -Status post temporary catheter placement and HD x 2 sessions and last HD was on Tuesday. -Creatinine trending down slowly and urine output picking up, holding off on HD and watch for recovery over the weekend -Renal ultrasound thickened and lobulated contour with chronic outlet obstruction with concern for mass versus clot in the bladder. Need urology referral as outpatient. -UA with 4+ protein, nephrotic range proteinuria-M ACR [id number]. 2. Nephrotic range proteinuria: Likely from diabetic nephropathy., Refer to nephrology as outpatient for further workup including renal biopsy as outpatient. Other serologies pending 3. STEMI, status post left heart cath, ejection fraction 35 to 40% 4. Bilateral pleural effusions, status post thoracentesis 5. Anemia, Tsat 20%, monitor, will order ELROY 6. Renal bone metabolism , replating vitamin D, added Phos binder he consents to telehealth and HD as needed Plan see above Attestations 2 Medical Necessity Statement*: per medine team Coding Level of Care Code Acute Code for Chg Fwd Diagnoses Acute kidney injury superimposed on CKD N17.9; N18.9
[2024-07-08] MEDS: metoprolol tartrate 50 mg Tablet 100 MG PO ×2 (10:05→20:51)
[2024-07-08] MEDS: ergocalciferol (vitamin D2) 50,000 Unit Capsule 50000 UNIT PO (10:05)
[2024-07-08] MEDS: hyDRALAzine 10 mg Tablet PO (10:05)
[2024-07-08] MEDS: clopidogrel 75 mg Tablet PO (10:05)
[2024-07-08] MEDS: amlodipine 5 mg Tablet PO ×2 (10:06→18:16)
[2024-07-08] MEDS: FUROsemide 10 mg/mL SDV 2mL 20 MG IVP (10:06)
[2024-07-08] MEDS: enoxaparin 30 mg/0.3 mL Syringe SUBCUT (10:06)
[2024-07-08] MEDS: aspirin 81 mg EC Tablet PO (10:06)
[2024-07-08] MEDS: insulin lispro 100 unit/1 mL SUBCUT ×3 (10:07→20:53)
[2024-07-08 11:50] LABS: Glucose Point of Care 250 mg/dL (70-110)
--- NOTE | 2024-07-08 14:00 | PM.PN ---
Subjective Subjective: Patient was becoming more short of breath today. Even though he remains on room air he is more tachypneic in conversation compared to previous exams. Creatinine is stable. Lower extremity swelling is increasing. Medications: Reviewed: Yes Medication Review Details: Current Medications Acetaminophen (Acetaminophen 325 Mg Tablet) 650 mg PO Q6H PRN PRN Reason: MILD PAIN Last Admin: 07/04/24 21:03 Dose: 650 mg Acetaminophen (Acetaminophen 500 Mg Tablet) 500 mg PO Q4H PRN PRN Reason: fever Albuterol/Ipratropium (Ipratropium-Albuterol 3 Ml Neb) 3 ml INHALATION Q6H PRN PRN Reason: SHORTNESS OF BREATH Amlodipine Besylate (Amlodipine 5 Mg Tablet) 5 mg PO DAILY [facility] Last Admin: 07/04/24 08:42 Dose: 5 mg Aspirin (Aspirin 81 Mg Ec Tablet) 81 mg PO DAILY [facility] Last Admin: 07/04/24 08:42 Dose: 81 mg Atorvastatin Calcium (Atorvastatin 40 Mg Tablet) 80 mg PO BEDTIME [facility] Last Admin: 07/04/24 20:28 Dose: 80 mg Atropine Sulfate (Atropine 1 Mg/Ml Sdv 1 Ml) 0.5 mg IVP PRN PRN PRN Reason: Symptomatic bradycardia Calamine (Calamine Lotion 177 Ml Btl) 1 applic TOPICAL Q4H PRN PRN Reason: ITCHING Last Admin: 07/04/24 11:39 Dose: 1 applic Clopidogrel Bisulfate (Clopidogrel 75 Mg Tablet) 75 mg PO DAILY [facility] Last Admin: 07/04/24 08:42 Dose: 75 mg Enoxaparin Sodium (Enoxaparin 30 Mg/0.3 Ml Syringe) 30 mg SUBCUT Q24H [facility] Last Admin: 07/04/24 08:41 Dose: 30 mg Ergocalciferol (Ergocalciferol (Vitamin D2) 50,000 Unit Capsule) 50,000 unit PO Q7D [facility] Last Admin: 07/01/24 09:48 Dose: 50,000 unit Furosemide (Furosemide 10 Mg/Ml Sdv 2ml) 20 mg IVP Q12H [facility] Last Admin: 07/04/24 20:28 Dose: 20 mg Glucagon (Glucagon 1 Mg/Ml Kit 1 Ml) 1 mg IM ONCE PRN; Protocol PRN Reason: Adult Acute Hypoglycemia Nursing Prot. Norepinephrine Bitartrate (Levophed) 4 mg in 250 mls @ 0 mls/hr IV .Q0M [facility]; Protocol Dextrose (D5w) 500 mls @ 0 mls/hr IV ONCE PRN; Protocol PRN Reason: Adult Acute Hypoglycemia Prot Dextrose (D10w) 125 mls @ 750 mls/hr IV PRN PRN; Protocol PRN Reason: Adult Acute Hypoglycemia Nursing Protocol Dextrose (D10w) 250 mls @ 1,000 mls/hr IV PRN PRN; Protocol PRN Reason: Adult Acute Hypoglycemia Nursing Protocol Insulin Human Lispro (Insulin Lispro 100 Unit/1 Ml) 0 unit SUBCUT WM&BEDTIME [facility]; Protocol Last Admin: 07/04/24 21:04 Dose: Not Given Metoprolol Tartrate (Metoprolol Tartrate 50 Mg Tablet) 75 mg PO BID@0900,2100 [facility] Last Admin: 07/04/24 20:27 Dose: 75 mg Naloxone HCl (Naloxone 0.4 Mg/Ml Sdv) 0.1 mg IVP Q2M PRN PRN Reason: RESPIRATORY RATE < 8/MIN Nitroglycerin (Nitroglycerin 0.4 Mg Sublingual Tablet) 0.4 mg SUBLINGUAL Q5M PRN PRN Reason: CHEST PAIN Ondansetron HCl (Ondansetron 2 Mg/Ml Sdv 2 Ml) 4 mg IVP Q6H PRN PRN Reason: NAUSEA AND VOMITING Last Admin: 06/30/24 21:16 Dose: 4 mg Senna/Docusate Sodium (Sennosides-Docusate Tablet) 1 tab PO DAILY [facility] Last Admin: 07/04/24 08:42 Dose: 1 tab Triamcinolone Acetonide (Triamcinolone 0.1% Cream 15 Gm) 1 applic TOPICAL BID PRN PRN Reason: skin rash Vitals/I&O/Wt Last Vital Signs Temp 97.8 F 07/08/24 16:00 Pulse 73 07/08/24 16:00 Resp 16 07/08/24 16:00 BP 165/71 07/08/24 16:00 Pulse Ox 96 07/08/24 16:00 O2 Del Method Room Air 07/08/24 16:00 O2 Flow Rate 2 07/05/24 03:25 FiO2 50 07/02/24 00:00 07/08/24 07/08/24 07/08/24 06:59 14:59 22:59 Intake Total 680 / 680 Output Total 500 / 1400 1400 / 1400 Balance -500 / 280 -720 / -720 Weight last 48 hrs Weight 109.452 kg Weight 109.361 kg Physical Exam Narrative: General: Awake alert and oriented x 3. HEENT: PERRLA, pupils bilaterally equal and reactive, pallors not present Chest: Reduced air entry bilaterally CVS: S1-S2 regular, no murmurs, no tachycardia, no gallops, no rubs Abdomen: Soft, nontender, no organomegaly, bowel sounds present Neuro: No focal deficits, no facial deformity, AO x3, power 5/5 in all limbs Data 07/08/24 05:43 07/08/24 05:43 Micro: Microbiology 07/03/24 14:00 Gram Stain - Final Pleural Fluid Anaerobic Culture - Preliminary Body Fluid Culture - Final A&P Assessment and plan (1) CHF (congestive heart failure): Qualifiers: Heart failure type: combined systolic and diastolic Heart failure chronicity: acute on chronic Qualified Code(s): I50.43 - Acute on chronic combined systolic (congestive) and diastolic (congestive) heart failure (2) Poor compliance: (3) Acute on chronic congestive heart failure: Qualifiers: Heart failure type: systolic Qualified Code(s): I50.23 - Acute on chronic systolic (congestive) heart failure (4) STEMI (ST elevation myocardial infarction): Qualifiers: Involved coronary artery: LAD coronary artery Qualified Code(s): I21.02 - ST elevation (STEMI) myocardial infarction involving left anterior descending coronary artery (5) Hyperlipidemia: Qualifiers: Hyperlipidemia type: mixed hyperlipidemia Qualified Code(s): E78.2 - Mixed hyperlipidemia (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: (7) REGINO (acute kidney injury): (8) Sciatica: (9) Neuropathy, diabetic: Plan STEMI Status post LAD 2 stents Continue dual antiplatelet therapy along statins Patient has been weaned off Levophed Echo report to be followed Acute systolic CHF exacerbation Currently on IV diuretic regimen along BiPAP Hansen catheter refused by the patient, stating that he would like to use urinal Type II diabetic with complications related to neuropathy Continue insulin sliding scale Cardiac consistent carb diet Pulm edema: I have requested BiPAP overnight patient is agreeable DVT prophylaxis: Heparin Will follow along cardiology Full code 06/30/2024 -Patient is status post 2 stents ? Contrast-induced nephropathy versus combination of cardiorenal plus contrast-induced worsening: Creatinine 4.0. ? Consult nephrology. Await recommendations ? Continue insulin sliding scale ? Continue on Lasix 20 IV twice daily patient is fluid overload intermittently diuresis. ? Continue aspirin Plavix atorvastatin ? Medicine will continue to follow along. ? Patient has refused Hansen catheter. 07/01/2024 -Continue Lasix drip at this time. ? Urine output 300 cc overnight. ? Creatinine is worsening. Nephrology following. ? Continue aspirin Plavix atorvastatin ? CT chest abdomen pelvis pending at this time to evaluate for granuloma and because of renal failure ? Renal ultrasound also pending at this time ? Medicine will continue to follow July 02, 2023 Creatinine trending up to 6, remains oliguric. Starting dialysis today. Recommend consulting surgery for placement of HD catheter. Thoracentesis would likely help benefit the patient. Patient states he has previously had thoracentesis in August 2023. He states he was told the He states he has had multiple admissions in the past year related to heart failure however has not needed thoracentesis since August. Thoracentesis and pleural fluid analysis ordered. Diuresis per primary cardiology team July 03, 2024. 64-year-old male with past medical history of nonischemic cardiomyopathy diabetes brought to the emergency room on June 29, 2024 with a STEMI. Patient underwent coronary angiogram underwent revascularization with 2 stents. Shortly after being brought back to the ICU he started to complain of chest discomfort again and underwent a repeat coronary angiogram. This showed patent prior stents without any changes. Hospital course has been notable for acute on chronic systolic CHF exacerbation for which patient was on IV diuresis, development of acute kidney injury asked CKD for which she has been started on hemodialysis. Imaging showed echogenic filling defect/mass in the lumen of the urinary bladder which may be technical services representative of a mass or neoplasm, he will need urology evaluation shortly after discharge. Unfortunately we do not have urology services available inpatient. He has bilateral pleural effusions, status post thoracentesis on the right side today. There was concern for potential LV thrombus earlier this admission which has been ruled out. Patient is currently on aspirin Plavix atorvastatin. His breathing is improved since initiation of hemodialysis. Also underwent thoracentesis today which has helped. he will be receiving hemodialysis postthoracentesis today. july 04, 2024: Clinically better today. off supplemental 02. Monitoring renal function for potential recovery. PT/OT eval. July 05, 2024 Remains off supplemental oxygen. Creatinine at 6. Awaiting renal recovery to decide regarding long-term dialysis. Did well with physical therapy. QuantiFERON TB screen negative. Mycobacterial smear and culture awaited from pleural fluid. No WBCs, no growth on culture. Diuresis per cardiology and nephrology. July 07, 2024 : On RA today, no acute interim events. Cr better, urine putput > 900cc. Plan to monitor renal function over the weekend off dialysis to decide regarding terminal system operator HD vs discontinuation of further sessions. SBP trending to HTN now, resume home med hydralazine , lower dose of 10TID for now , if tolerated, then to uptitrate Januray 2023 Patient is more dyspneic today. Appears to be tiring out in conversation. This is different from previous exams. Increased lower extremity swelling today. Creatinine is at 5.0. Urine output at 2600 cc. Discussed case with nephrology. Increase Lasix to 40 mg IV every 12 hours and continue to monitor closely. If renal function starts to deteriorate with increased diuresis or does not have significant response may need to consider long-term dialysis for him. Blood pressure continuing to be ranging 1 50-1 60 systolic. Recommend to increase hydralazine to 25 mg 3 times daily today. Attestations Medical Necessity Statement*: Increasing IV diuresis today. Continue to monitor renal function closely. Coding Level of Care Code Acute Code for Chg Fwd Diagnoses Acute on chronic combined systolic and diastolic congestive heart failure I50.43 Heart failure type: combined systolic and diastolic Heart failure chronicity: acute on chronic Poor compliance Z91.199 Acute on chronic systolic congestive heart failure I50.23 Heart failure type: systolic ST elevation myocardial infarction involving left anterior descending (LAD) coronary artery I21.02 Involved coronary artery: LAD coronary artery Mixed hyperlipidemia E78.2 Hyperlipidemia type: mixed hyperlipidemia 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
[2024-07-08] MEDS: FUROsemide 10 mg/mL SDV 4mL 40 MG IVP (15:40)
[2024-07-08] MEDS: hyDRALAzine 10 mg Tablet 25 MG PO ×2 (15:40→20:51)
--- NOTE | 2024-07-08 17:11 | PC.NURSE ---
Pt c/o chest pain and left arm pain. Dr. Sanches notified. Pt given Nitro, Morphine, and Zofran. Stroke alert called per Dr. Sanches.
--- NOTE | 2024-07-08 17:11 | ECG_ITS ---
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 Measurements Intervals [place] Rate: 71 P: -4 NV: 150 QRS: -25 QRSD: 130 T: 107 QT: 394 QTc: 429 Interpretive Statements SINUS RHYTHM SEPTAL MYOCARDIAL INFARCTION , OF INDETERMINATE AGE [40+ ms Q WAVE IN V1/V2] MODERATE T-WAVE ABNORMALITY, CONSIDER LATERAL ISCHEMIA [-0.1+ mV T-WAVE IN I/aVL/V5/V6] Compared to ECG 07/06/2024 18:27:19 T-wave abnormality now present Possible ischemia now present Intraventricular conduction delay no longer present Myocardial infarct finding still present Electronically Signed On 07-11-2024 00:02:26 [employer]IDENTIAL SALES EXECUTIVE by Jeffry Pugh M.D. [email or web address]
[2024-07-08 17:28] LABS: Glucose Point of Care 123 mg/dL (70-110)
--- NOTE | 2024-07-08 17:37 | CTR_ITS ---
PROCEDURE INFORMATION: Exam: CTA Head With Contrast, Arteriography Exam date and time: 07/08/2024 5:56 PM Age: 64 years old Clinical indication: Patient HX: Sudden onset of upper ext weakness; Additional info: Stroke alert TECHNIQUE: Imaging protocol: Computed tomographic angiography of the head with contrast. Exam focused on the arteries. 3D rendering (Not supervised by radiologist): MIP and/or 3D reconstructed images were created by the technologist. Radiation optimization: All CT scans at this facility use at least one of these dose optimization techniques: automated exposure control; mA and/or kV adjustment per patient size (includes targeted exams where dose is matched to clinical indication); or iterative reconstruction. Contrast material: OMNI 350; Contrast volume: 100 ml; Contrast route: INTRAVENOUS (IV); COMPARISON: CT head wo con* [id number] 07/08/2024 5:53 PM RADIATION DOSE METRICS: Total DLP (mGy-cm): 574.72 FINDINGS: ANTERIOR CIRCULATION: Right internal carotid artery: Atherosclerotic changes right internal carotid artery with mild stenosis. Right middle cerebral artery: There is severe focal stenosis at the origin of an anterior right-sided MCA M2 branch for example on series 4, image 279. No occlusion seen. Right anterior cerebral artery: No occlusion or significant stenosis. No aneurysm. Left internal carotid artery: Atherosclerotic changes left internal carotid artery with mild to moderate stenosis. Left middle cerebral artery: No occlusion or significant stenosis. No aneurysm. Left anterior cerebral artery: No occlusion or significant stenosis. No aneurysm. POSTERIOR CIRCULATION: Right vertebral artery: No occlusion or significant stenosis. No aneurysm. Left vertebral artery: No occlusion or significant stenosis. No aneurysm. Basilar artery: No occlusion or significant stenosis. No aneurysm. Right posterior cerebral artery: The right FILTER PRESS TENDER HEAD has moderate stenosis at the P1 P2 segment junction without occlusion. Left posterior cerebral artery: There is mild stenosis in the proximal P2 segment left FILTER PRESS TENDER HEAD. No occlusion. Brain: No definite mass, mass effect, or midline shift. Cerebral ventricles: No ventriculomegaly. Bones/joints: No acute fracture. Soft tissues: Unremarkable. PROCEDURE INFORMATION: Exam: CTA Neck With Contrast Exam date and time: 07/08/2024 5:56 PM Age: 64 years old Clinical indication: Patient HX: Sudden onset of upper ext weakness; Additional info: Stroke alert TECHNIQUE: Imaging protocol: Computed tomographic angiography of the neck with contrast. Exam focused on the cervical segments of the vasculature. 3D rendering (Not supervised by radiologist): MIP and/or 3D reconstructed images were created by the technologist. Radiation optimization: All CT scans at this facility use at least one of these dose optimization techniques: automated exposure control; mA and/or kV adjustment per patient size (includes targeted exams where dose is matched to clinical indication); or iterative reconstruction. Contrast material: OMNI 350; Contrast volume: 100 ml; Contrast route: INTRAVENOUS (IV); COMPARISON: [place] [id number] 07/01/2024 9:06 AM RADIATION DOSE METRICS: Total DLP (mGy-cm): 574.72 FINDINGS: Right common carotid artery: There is mild stenosis distal right common carotid artery. Right internal carotid artery: Atherosclerotic changes proximal right internal carotid artery are seen without significant stenosis. Right external carotid artery: No visible occlusion. Left common carotid artery: No stenosis. No dissection or occlusion. Left internal carotid artery: No stenosis of the extracranial segment. No dissection or occlusion. Left external carotid artery: No visible occlusion. Right vertebral artery: No stenosis. No dissection or occlusion. Left vertebral artery: No stenosis. No dissection or occlusion. Teeth: Dental disease. Lymph nodes: Nonspecific subcentimeter mediastinal nodes unchanged. Soft tissues: No significant soft tissue swelling. Bones/joints: There is an old appearing superior endplate compression fracture of T3 which is unchanged. Lungs: Left upper lobe calcified granuloma again present. Pleural spaces: There are large bilateral pleural effusions similar to the comparison chest CT. CT/CT angio headneck* [id number] IMPRESSION: 1. No acute large vessel occlusion identified. 2. Intracranial atherosclerosis notable for severe stenosis of an anterior right-sided MCA M2 branch, as described. IMPRESSION: 1. No occlusion or significant stenosis. 2. Large bilateral pleural effusions again present. REFERENCES: NASCET CRITERIA. The degree of stenosis in the cervical segment of the internal carotid artery is based on NASCET criteria. Normal is no stenosis. Mild is less than 50% stenosis. Moderate is 50-69% stenosis. Severe is 70% to 99% stenosis. Total occlusion is no detectable patent lumen.
--- NOTE | 2024-07-08 17:37 | CTR_ITS ---
PROCEDURE INFORMATION: Exam: CT Head Without Contrast Exam date and time: 07/08/2024 5:53 PM Age: 64 years old Clinical indication: Stroke-like symptoms; Francis upper extremity weakness; Additional info: Stroke alert/ chest pain TECHNIQUE: Imaging protocol: Computed tomography of the head without contrast. Radiation optimization: All CT scans at this facility use at least one of these dose optimization techniques: automated exposure control; mA and/or kV adjustment per patient size (includes targeted exams where dose is matched to clinical indication); or iterative reconstruction. Other technique: STROKE PROTOCOL was implemented. COMPARISON: No relevant prior studies available. RADIATION DOSE METRICS: Total DLP (mGy-cm): 1158.38 FINDINGS: Brain: No acute infarct. No hemorrhage. Involutional changes of the brain, commensurate with age. No midline shift. Cerebral ventricles: No ventriculomegaly. Mild ex vacuo ventricular prominence. Paranasal sinuses: No significant inflammation. No fluid levels. Mastoid air cells: No significant inflammation. Bones: No acute fracture. Soft tissues: Unremarkable. CT/CT head wo con* [id number] IMPRESSION: No acute intracranial abnormality. ASSESSMENT: ASPECTS ([facility] Stroke Program Early CT Score) is 10.
[2024-07-08] MEDS: nitroglycerin 0.4 mg sublingual Tablet SUBLINGUAL (17:44)
--- NOTE | 2024-07-08 17:46 | PM.PN ---
Subjective Subjective: Patient had episode of atypical chest pain and some shortness of breath. It was immediately relieved with morphine, it was different from what he described an acute cord syndrome. He was also noted to have right-sided weakness prompted stroke alert, CTA was not suggestive of occlusive disease, Medications: Reviewed: Yes Medication Review Details: Current Medications Acetaminophen (Acetaminophen 325 Mg Tablet) 650 mg PO Q6H PRN PRN Reason: MILD PAIN Last Admin: 07/04/24 21:03 Dose: 650 mg Acetaminophen (Acetaminophen 500 Mg Tablet) 500 mg PO Q4H PRN PRN Reason: fever Albuterol/Ipratropium (Ipratropium-Albuterol 3 Ml Neb) 3 ml INHALATION Q6H PRN PRN Reason: SHORTNESS OF BREATH Amlodipine Besylate (Amlodipine 5 Mg Tablet) 5 mg PO DAILY [facility] Last Admin: 07/04/24 08:42 Dose: 5 mg Aspirin (Aspirin 81 Mg Ec Tablet) 81 mg PO DAILY [facility] Last Admin: 07/04/24 08:42 Dose: 81 mg Atorvastatin Calcium (Atorvastatin 40 Mg Tablet) 80 mg PO BEDTIME [facility] Last Admin: 07/04/24 20:28 Dose: 80 mg Atropine Sulfate (Atropine 1 Mg/Ml Sdv 1 Ml) 0.5 mg IVP PRN PRN PRN Reason: Symptomatic bradycardia Calamine (Calamine Lotion 177 Ml Btl) 1 applic TOPICAL Q4H PRN PRN Reason: ITCHING Last Admin: 07/04/24 11:39 Dose: 1 applic Clopidogrel Bisulfate (Clopidogrel 75 Mg Tablet) 75 mg PO DAILY [facility] Last Admin: 07/04/24 08:42 Dose: 75 mg Enoxaparin Sodium (Enoxaparin 30 Mg/0.3 Ml Syringe) 30 mg SUBCUT Q24H [facility] Last Admin: 07/04/24 08:41 Dose: 30 mg Ergocalciferol (Ergocalciferol (Vitamin D2) 50,000 Unit Capsule) 50,000 unit PO Q7D [facility] Last Admin: 07/01/24 09:48 Dose: 50,000 unit Furosemide (Furosemide 10 Mg/Ml Sdv 2ml) 20 mg IVP Q12H [facility] Last Admin: 07/04/24 20:28 Dose: 20 mg Glucagon (Glucagon 1 Mg/Ml Kit 1 Ml) 1 mg IM ONCE PRN; Protocol PRN Reason: Adult Acute Hypoglycemia Nursing Prot. Norepinephrine Bitartrate (Levophed) 4 mg in 250 mls @ 0 mls/hr IV .Q0M ESTRELLA; Protocol Dextrose (D5w) 500 mls @ 0 mls/hr IV ONCE PRN; Protocol PRN Reason: Adult Acute Hypoglycemia Prot Dextrose (D10w) 125 mls @ 750 mls/hr IV PRN PRN; Protocol PRN Reason: Adult Acute Hypoglycemia Nursing Protocol Dextrose (D10w) 250 mls @ 1,000 mls/hr IV PRN PRN; Protocol PRN Reason: Adult Acute Hypoglycemia Nursing Protocol Insulin Human Lispro (Insulin Lispro 100 Unit/1 Ml) 0 unit SUBCUT WM&BEDTIME [facility]; Protocol Last Admin: 07/04/24 21:04 Dose: Not Given Metoprolol Tartrate (Metoprolol Tartrate 50 Mg Tablet) 75 mg PO BID@0900,2100 [facility] Last Admin: 07/04/24 20:27 Dose: 75 mg Naloxone HCl (Naloxone 0.4 Mg/Ml Sdv) 0.1 mg IVP Q2M PRN PRN Reason: RESPIRATORY RATE < 8/MIN Nitroglycerin (Nitroglycerin 0.4 Mg Sublingual Tablet) 0.4 mg SUBLINGUAL Q5M PRN PRN Reason: CHEST PAIN Ondansetron HCl (Ondansetron 2 Mg/Ml Sdv 2 Ml) 4 mg IVP Q6H PRN PRN Reason: NAUSEA AND VOMITING Last Admin: 06/30/24 21:16 Dose: 4 mg Senna/Docusate Sodium (Sennosides-Docusate Tablet) 1 tab PO DAILY [facility] Last Admin: 07/04/24 08:42 Dose: 1 tab Triamcinolone Acetonide (Triamcinolone 0.1% Cream 15 Gm) 1 applic TOPICAL BID PRN PRN Reason: skin rash Vitals/I&O/Wt Last Vital Signs Temp 97.8 F 07/08/24 16:00 Pulse 73 07/08/24 16:00 Resp 16 07/08/24 16:00 BP 165/71 07/08/24 16:00 Pulse Ox 96 07/08/24 16:00 O2 Del Method Room Air 07/08/24 16:00 O2 Flow Rate 2 07/05/24 03:25 FiO2 50 07/02/24 00:00 07/08/24 07/08/24 07/08/24 06:59 14:59 22:59 Intake Total 680 / 680 Output Total 500 / 1400 1400 / 1400 Balance -500 / 280 -720 / -720 Weight last 48 hrs Weight 241 lb 4.8 oz Weight 241 lb 1.6 oz Physical Exam Const: OTHER: GENERAL: Patient is alert, awake and oriented x3. HEART: Regular S1 and S2. No murmur, rub or gallop. LUNGS: Clear to auscultate bilaterally.l. EXTREMITIES: Lower extremities with out edema bilaterally. Data 07/08/24 18:32 07/08/24 18:32 Micro: Microbiology 07/03/24 14:00 Gram Stain - Final Pleural Fluid Anaerobic Culture - Preliminary Body Fluid Culture - Final A&P Assessment and plan (1) STEMI (ST elevation myocardial infarction): Patient is stable from a coronary disease perspective, EKG remains unchanged, chest pain was atypical and most likely due to pleural effusions, troponin bump is possible remnants from recent ST elevation ME in the face of renal failure and reduced clearance versus neurocardiac secondary to stroke. Continue current management including aspirin statin beta-kimani and Plavix Qualifiers: Involved coronary artery: LAD coronary artery Qualified Code(s): I21.02 - ST elevation (STEMI) myocardial infarction involving left anterior descending coronary artery (2) Acute on chronic congestive heart failure: Patient has bilateral moderate to large pleural effusion, plan for hemodialysis, if does not improve may can be drained Qualifiers: Heart failure type: systolic Qualified Code(s): I50.23 - Acute on chronic systolic (congestive) heart failure (3) Hyperlipidemia: Continue statin Qualifiers: Hyperlipidemia type: mixed hyperlipidemia Qualified Code(s): E78.2 - Mixed hyperlipidemia (4) CHF (congestive heart failure): Today appeared to be volume overloaded increase Lasix to 40 mg IV twice daily plan for hemodialysis as suggested by nephrology Qualifiers: Heart failure chronicity: acute on chronic Heart failure type: combined systolic and diastolic Qualified Code(s): I50.43 - Acute on chronic combined systolic (congestive) and diastolic (congestive) heart failure (5) Hypertension: In the face of severe permissible hypertension, I will leave the parameters for neurology Qualifiers: Hypertension type: primary hypertension Qualified Code(s): I10 - Essential (primary) hypertension (6) Acute kidney injury superimposed on CKD: As per nephrology may require hemodialysis (7) Pleural effusion: If not improved with diuresis and dialysis may require drainage Plan Can titrate hydralazine, I will leave it to neurology since patient has a stroke and may require permissible hypertension Attestations Medical Necessity Statement*: Patient require continuation hospitalization for above defined care Coding Level of Care Code Acute Code for Chg Fwd Diagnoses ST elevation myocardial infarction involving left anterior descending (LAD) coronary artery I21.02 Involved coronary artery: LAD coronary artery Acute on chronic systolic congestive heart failure I50.23 Heart failure type: systolic Mixed hyperlipidemia E78.2 Hyperlipidemia type: mixed hyperlipidemia Acute on chronic combined systolic and diastolic congestive heart failure I50.43 Heart failure chronicity: acute on chronic Heart failure type: combined systolic and diastolic Primary hypertension I10 Hypertension type: primary hypertension Acute kidney injury superimposed on CKD N17.9; N18.9 Pleural effusion J90
[2024-07-08] MEDS: ondansetron 2 mg/ML SDV 2 mL 4 MG IVP (17:50)
[2024-07-08] MEDS: morphine 4 mg/mL SDV 1 mL 2 MG IVP (17:50)
[2024-07-08] MEDS: iohexol 350 mg/mL 500 mL Btl (per mL) IV (18:00)
--- NOTE | 2024-07-08 18:33 | P.CONIM_ITS ---
Providers/Reason For Consult 2 Consulting Physician/Specialty*: Donald Marino MD neurology and epilepsy Reason for Consult*: Acute care code stroke room 256 [facility] Attending Physician: Washington Tilley M.D Primary Care Provider: Ezio Leahy History of Present Illness History of Present Illness Cam Trinh is a 64 year old male with a history of recent STEMI status post stent placement 06/29/2024. The patient also has a history of congestive heart failure and end-stage renal disease currently on hemodialysis. On 07/08/2024 the patient was reported to complain of chest pain and left arm pain and blurred vision followed by reports of right sided weakness involving his arm and leg and blurred vision. Code stroke was initiated at 5:36 PM on 07/08/2024. NIH score = 3 performed by the hospitalist glucose Accu-Chek 129 blood pressure 165/71. Stat noncontrast head CT and CT angiogram was obtained. Noncontrast head CT reported to revealed no acute findings. CT angiogram head and neck revealed no large vessel occlusion but there was report of intracranial atherosclerosis notable for severe stenosis of an anterior right-sided MCA M2 branch, as described. Neurology NIH score = 0 (although there was some questionable right upper and right lower extremity weakness although with repeat prompting and testing the patient was able to resist against gravity as well as examiner's resistance) Past medical history: Coronary artery disease status post coronary stent placement 06/29/2004 Hypertension Congestive heart failure End-stage renal disease Cellulitis of the umbilicus Diabetes mellitus Drug allergies: None Current medications: Norvasc 5 mg p.o. twice daily Tylenol 1000 mg p.o. every 6 hours as needed for pain Aspirin 81 mg p.o. daily Lipitor 80 mg p.o. nightly Plavix 75 mg p.o. daily Hydralazine 50 mg p.o. 3 times daily Insulin 20 units subcutaneously twice daily Iso-Sorbid mononitrate 60 mg p.o. daily Metformin 500 mg p.o. twice daily Potassium chloride 20 mill equivalents p.o. q. Metoprolol 25 mg p.o. daily Habits: None Family history: Remarkable for paternal grandfather and maternal grandfather with stroke Review of Systems 2 General: Reports: 10 or more systems reviewed and unremarkable except in HPI and below Medications/Allergies Home Medications Medication Instructions Recorded Confirmed Last Taken Type aspirin 81 mg tablet,delayed 81 mg PO DAILY #60 tabs 06/22/22 06/30/24 06/29/24 Rx release flash glucose scanning reader #1 ea 09/07/23 06/30/24 Unknown Rx (FreeStyle Igor 14 Day [place]) flash glucose sensor (FreeStyle #1 ea 09/07/23 06/30/24 Unknown Rx Igor 14 Day Sensor kit) acetaminophen 500 mg tablet 1,000 mg PO Q6H PRN Pain 09/08/23 06/30/24 Unknown History empagliflozin 25 mg tablet 25 mg PO DAILY #30 tabs 09/13/23 06/30/24 Unknown Rx (Jardiance) hydralazine 50 mg tablet 50 mg PO TID #90 tabs 09/28/23 06/30/24 06/29/24 Rx clopidogrel 75 mg tablet 75 mg PO DAILY #90 tabs 11/08/23 06/30/24 06/29/24 Rx insulin glargine 100 unit/mL (3 20 unit (0.2 mL) SUBCUT BID #15 mL 11/08/23 06/30/24 06/29/24 Rx mL) subcutaneous pen (Lantus Solostar U-100 Insulin) metformin 500 mg tablet 500 mg PO BID #180 tabs 11/08/23 06/30/24 Unknown Rx potassium chloride 20 mEq 20 meq PO DAILY #90 tabs 11/08/23 06/30/24 06/29/24 Rx tablet,extended release atorvastatin 80 mg tablet 80 mg PO BEDTIME 06/30/24 06/30/24 06/29/24 History insulin glargine 100 unit/mL (3 25 unit SUBCUT BEDTIME 06/30/24 06/30/24 06/28/24 History mL) subcutaneous pen (Lantus Solostar U-100 Insulin) isosorbide mononitrate 30 mg 60 mg PO DAILY 06/30/24 06/30/24 06/29/24 History tablet,extended release 24 hr metoprolol succinate 25 mg 25 mg PO DAILY 06/30/24 06/30/24 06/29/24 History tablet,extended release 24 hr torsemide 20 mg tablet 20 mg PO BID 06/30/24 06/30/24 06/29/24 History Allergies Allergy/AdvReac Type Severity Reaction Status Date / Time No Known Allergies Allergy Verified 11/08/23 09:21 Current Medications Generic Name Dose Route Start Last Admin Trade Name Freq PRN Reason Stop Dose Admin Acetaminophen 650 mg 06/29/24 21:08 07/04/24 21:03 Acetaminophen 325 Mg Tablet PO 650 mg Q6H PRN Administration MILD PAIN Amlodipine Besylate 5 mg 07/06/24 18:00 07/08/24 18:16 Amlodipine 5 Mg Tablet PO 5 mg BID ESTRELLA Administration Aspirin 81 mg 06/30/24 09:00 07/08/24 10:06 Aspirin 81 Mg Ec Tablet PO 81 mg DAILY ESTRELLA Administration Atorvastatin Calcium 80 mg 06/30/24 21:00 07/07/24 20:21 Atorvastatin 40 Mg Tablet PO 80 mg BEDTIME ESTRELLA Administration Calamine 1 applic 07/03/24 00:41 07/04/24 11:39 Calamine Lotion 177 Ml Btl TOPICAL 1 applic Q4H PRN Administration ITCHING Clopidogrel Bisulfate 75 mg 06/30/24 09:00 07/08/24 10:05 Clopidogrel 75 Mg Tablet PO 75 mg DAILY ESTRELLA Administration Enoxaparin Sodium 30 mg 07/02/24 09:00 07/08/24 10:06 Enoxaparin 30 Mg/0.3 Ml Syringe SUBCUT 30 mg Q24H ESTRELLA Administration Ergocalciferol 50,000 unit 07/01/24 09:45 07/08/24 10:05 Ergocalciferol (Vitamin D2) 50,000 Unit Capsule PO 50,000 unit Q7D ESTRELLA Administration Furosemide 40 mg 07/08/24 15:00 07/08/24 15:40 Furosemide 10 Mg/Ml Sdv 4ml IVP 40 mg Q12H ESTRELLA Administration Hydralazine HCl 25 mg 07/08/24 15:00 07/08/24 15:40 Hydralazine 10 Mg Tablet PO 25 mg TID ESTRELLA Administration Insulin Human Lispro 0 unit 06/30/24 08:00 07/08/24 18:08 Insulin Lispro 100 Unit/1 Ml SUBCUT Not Given WM&BEDTIME [facility] Protocol Metoprolol Tartrate 100 mg 07/05/24 21:00 07/08/24 10:05 Metoprolol Tartrate 50 Mg Tablet PO 100 mg BID@0900,2100 [facility] Administration Morphine Sulfate 2 mg 07/06/24 18:39 07/08/24 17:50 Morphine 4 Mg/Ml Sdv 1 Ml IVP 2 mg Q6H PRN Administration SEVERE PAIN Nitroglycerin 0.4 mg 06/29/24 21:08 07/08/24 17:44 Nitroglycerin 0.4 Mg Sublingual Tablet SUBLINGUAL 0.4 mg Q5M PRN Administration CHEST PAIN Ondansetron HCl 4 mg 06/29/24 21:14 07/08/24 17:50 Ondansetron 2 Mg/Ml Sdv 2 Ml IVP 4 mg Q6H PRN Administration NAUSEA AND VOMITING Senna/Docusate Sodium 1 tab 06/30/24 09:00 07/08/24 10:06 Sennosides-Docusate Tablet PO Not Given DAILY ESTRELLA PFSH Acute 2 PFSH: Medical History Rib pain on right side Large pleural effusion Hypertension Diabetes Abnormal nuclear stress test Hyperglycemia Hypertensive urgency Angina at rest Diabetic neuropathy, painful Chest pain Surgical History History of surgical removal of meniscus of knee Family History Other CAD (coronary artery disease) Diabetes Social History Smoking and tobacco/nicotine status: former use of tobacco/nicotine Alcohol intake: former Substance/Drug Use: never Vitals/I&O/Wt Last Vital Signs Temp 97.8 F 07/08/24 16:00 Pulse 73 07/08/24 16:00 Resp 16 07/08/24 16:00 BP 165/71 07/08/24 16:00 Pulse Ox 96 07/08/24 16:00 O2 Del Method Room Air 07/08/24 16:00 O2 Flow Rate 2 07/05/24 03:25 FiO2 50 07/02/24 00:00 07/08/24 07/08/24 07/08/24 06:59 14:59 22:59 Intake Total 680 / 680 Output Total 500 / 1400 1400 / 1400 Balance -500 / 280 -720 / -720 Weight last 48 hrs Weight 241 lb 4.8 oz Weight 241 lb 1.6 oz Physical Exam 2 Narrative: Neurology NIH score = 0 (although there was some questionable right upper and right lower extremity weakness although with repeat prompting and testing the patient was able to resist against gravity as well as examiner's resistance) The patient is alert and oriented to person and situation. Head atraumatic. Neck supple. Cranial nerves II through XII revealed no obvious facial weakness. Pupils 3 to 4 mm round reactive to light and accommodation. Extraocular movements intact. Visual syed appear to be full via confrontation. Motor testing grossly nonfocal but although initially there was some questionable right arm and right leg weakness although patient was able to elevate the arm and leg on the right side against gravity and against resistance and will do repeat testing motor strength appeared to be essentially equal bilaterally. Plantar responses flexor bilaterally. There was no clonus. Sensory examination was intact to touch. Throat clear. Lungs revealed no obvious wheezes heart regular rhythm and rate extremities were negative for cyanosis Data 07/08/24 05:43 07/08/24 05:43 Micro: Microbiology 07/03/24 14:00 Gram Stain - Final Pleural Fluid Anaerobic Culture - Preliminary Body Fluid Culture - Final A&P Assessment and plan (1) TIA (transient ischemic attack): Impression: 1. Transient ischemic attack manifested as questionable right sided weakness and blurred vision. Blurred vision resolved as well as the weakness. Patient also status post STEMI with stent placement 06/29/2024 therefore patient was not a candidate for intravenous thrombolytic and no intravenous thrombolytics were administered 2. Intracranial atherosclerosis notable for severe stenosis of an anterior right-sided MCA M2 branch. 3. Coronary artery disease status post STEMI with stent placement 06/29/2024 4. Congestive heart failure 5. Acute renal failure patient currently on hemodialysis 6. Bilateral pleural effusions Plan: 1. Agree with Plavix aspirin and Lipitor per NIH stroke protocol and for findings reported on CT angiogram Intracranial atherosclerosis notable for severe stenosis of an anterior right-sided MCA M2 branch. 2. Neurochecks and vital signs per NIH stroke protocol 3. stroke education and stroke plan plan given to patient to 4. recommend occupational therapy, physical therapy consult 5. Fall precautions Consult Attestations 2 Medical Necessity Statement: The patient was evaluated secondary to acute care/code stroke Coding Level of Care Code 84234 Diagnoses TIA (transient ischemic attack) G45.9
--- NOTE | 2024-07-08 18:40 | PM.CCNAC ---
Critical Care Event Note The high probability of a clinically significant, sudden or life threatening deterioration of the patient's [] system(s) required my full and direct attention, intervention and personal management. The critical care time is as shown. This time is in addition to time spent performing any reported procedures but includes the following: [x] Data and vital sign review and interpretation [x] Patient assessment, examination and intervention [x] Documentation [x] Medication orders and management Critical Care Time Code activated: Yes Critical Care Time (min): 40 Additional information about critical care time: I was called by patient's nurse at around 5:30 PM to report that patient initially had complained of chest pain radiating into his left arm and then also complained of blurred vision. By the time I came in to assess the patient he had also started complaining of right-sided weakness. 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 His right side felt to be weaker than the left side. Bilateral brand ambassadors promotional sales were tested, right side weaker than the left. He was able to lift both arms off the bed however had a slight drift on the right side, appeared to be weaker when pushing against me. He was unable to lift his right leg off the bed. No weakness noted on the left side. He states that his blurred vision had resolved at this time. He he was able to answer all questions questions correctly however his speech was slow and he took longer than previous encounters to respond to questions. Blood sugar was 129. Blood pressure 160/71, heart rate of 70, SpO2 of 95%. Patient also went on to have an episode of vomiting. He was given morphine and Zofran. With these changes there was concern for stroke , Therefore code stroke was called. NIH stroke scale estimated at 3. Stat CT and CTA of the head and neck was ordered.patient reports past h/o 2 mini strokes and stroke in the past. Neurology consulted. Coding Level of Care Code Acute Code for [employer]
[2024-07-08 18:41] LABS: Basophils # 0.1 10^3/uL (0.0-0.1); Basophils % 0.7 %; Eosinophils % 0.4 %; Hematocrit 25.6 % (37-53); Lymphocytes # 0.9 10^3/uL (0.8-4.8); Lymphocytes % 10.5 %; Mean Corpuscular Hemoglobin 27.3 pg (27-33); Mean Corpuscular Volume 85.3 fl (82-101); Mean Platelet Volume 10.5 fL (7.4-10.4); Monocytes # 0.7 10^3/uL (0.2-0.9); Monocytes % 7.4 %; Neutrophils % 80.7 %; Nucleated Red Blood Cells % 0 %; Platelet Count 256 10^3/cmm (157-399); White Blood Count 8.93 10^3/uL (3.29-11.43)
[2024-07-08 19:08] LABS: Alanine Aminotransferase 12 U/L (0-41); Albumin Level 2.8 g/dL (3.5-5.2); Alkaline Phosphatase 108 U/L (40-130); Anion Gap 17.6 (5-19); Aspartate Amino Transferase 13 U/L (0-40); Blood Urea Nitrogen 73 mg/dL (8-23); Calcium 8.1 mg/dL (8.5-10.5); Carbon Dioxide 21 mmol/L (22-29); Chloride 98 mmol/L (98-107); Creatinine Clr Calc Pharmacy 21.4388; Globulin 2.8 g/dL (1.3-4.6); Glucose 183 mg/dL (65-115); Osmolality Calculated 300 mOsm/kg (285-295); Potassium 4.6 mmol/L (3.5-5.1); Sodium 132 mmol/L (136-145); Total Bilirubin 0.2 mg/dL (0.15-1.2); Total Protein 5.6 g/dL (6.6-8.7)
[2024-07-08 19:09] LABS: Troponin(5th) Baseline 715 ng/L (0-15)
--- NOTE | 2024-07-08 19:42 | ECG_ITS ---
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: : 1960 Requested By: Muna Sanches Order Number: [id number] Reading MD: HENOK DOLL Measurements Intervals [place] Rate: 78 P: 11 OR: 173 QRS: -30 QRSD: 127 T: 102 QT: 381 QTc: 437 Interpretive Statements SINUS RHYTHM ANTEROSEPTAL MYOCARDIAL INFARCTION , OF INDETERMINATE AGE [40+ ms Q WAVE IN V1-V4] Compared to ECG 07/08/2024 17:17:01 T-wave abnormality no longer present Possible ischemia no longer present Myocardial infarct finding still present Electronically Signed On 07-16-2024 23:32:14 LOCK SETTER by HENOK DOLL [email or web address]
[2024-07-08 20:51] LABS: Glucose Point of Care 307 mg/dL (70-110)
[2024-07-08] MEDS: atorvastatin 40 mg Tablet 80 MG PO (20:51)
[2024-07-08] MEDS: acetaminophen 325 mg Tablet 650 MG PO (20:58)
[2024-07-08 21:11] LABS: Troponin 5 2HR 775.7 ng/L (0-15); Troponin 5 2HR Delta 60.7 ABS# (0-10)
--- NOTE | 2024-07-08 23:42 | ECG_ITS ---
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: : 1960 Requested By: Muna Sanches Order Number: [id number] Reading MD: HENOK DOLL Measurements Intervals [place] Rate: 67 P: 12 SD: 186 QRS: -33 QRSD: 125 T: 105 QT: 387 QTc: 410 Interpretive Statements SINUS RHYTHM LEFT AXIS DEVIATION [QRS AXIS < -30] ANTEROSEPTAL MYOCARDIAL INFARCTION , OF INDETERMINATE AGE [40+ ms Q WAVE IN V1-V4] Compared to ECG 07/08/2024 20:29:58 Left-axis deviation now present Myocardial infarct finding still present Electronically Signed On 07-16-2024 23:31:53 INSTRUCTOR OF SPANISH by HENOK DOLL [email or web address]
[2024-07-09] VITALS (11 sets, daily range): BP systolic 117–176; BP diastolic 57–76; PULSE 62–79; RESP 16–18; TEMP 36.5–37.1; O2SAT 92–96
[2024-07-09 00:55] LABS: Glucose Point of Care 142 mg/dL (70-110)
[2024-07-09 01:29] LABS: Troponin 5 6HR 748.6 ng/L (0-15); Troponin 5 6HR Delta 33.6 ng/L (0-12)
[2024-07-09] MEDS: FUROsemide 10 mg/mL SDV 4mL 40 MG IVP ×2 (02:21→16:25)
[2024-07-09] MEDS: morphine 4 mg/mL SDV 1 mL 2 MG IVP ×2 (02:26→23:37)
[2024-07-09 06:35] LABS: Glucose Point of Care 186 mg/dL (70-110)
--- NOTE | 2024-07-09 07:24 | PM.PN ---
Subjective Subjective: has edema. more awake. no n/v/f/c/rudolph/d/leg pains. Medications: Reviewed: Yes Medication Review Details: Current Medications Acetaminophen (Acetaminophen 325 Mg Tablet) 650 mg PO Q6H PRN PRN Reason: MILD PAIN Last Admin: 07/08/24 20:58 Dose: 650 mg Acetaminophen (Acetaminophen 500 Mg Tablet) 500 mg PO Q4H PRN PRN Reason: fever Albuterol/Ipratropium (Ipratropium-Albuterol 3 Ml Neb) 3 ml INHALATION Q6H PRN PRN Reason: SHORTNESS OF BREATH Amlodipine Besylate (Amlodipine 5 Mg Tablet) 5 mg PO BID [facility] Last Admin: 07/08/24 18:16 Dose: 5 mg Aspirin (Aspirin 81 Mg Ec Tablet) 81 mg PO DAILY [facility] Last Admin: 07/08/24 10:06 Dose: 81 mg Atorvastatin Calcium (Atorvastatin 40 Mg Tablet) 80 mg PO BEDTIME [facility] Last Admin: 07/08/24 20:51 Dose: 80 mg Atropine Sulfate (Atropine 1 Mg/Ml Sdv 1 Ml) 0.5 mg IVP PRN PRN PRN Reason: Symptomatic bradycardia Calamine (Calamine Lotion 177 Ml Btl) 1 applic TOPICAL Q4H PRN PRN Reason: ITCHING Last Admin: 07/04/24 11:39 Dose: 1 applic Clopidogrel Bisulfate (Clopidogrel 75 Mg Tablet) 75 mg PO DAILY [facility] Last Admin: 07/08/24 10:05 Dose: 75 mg Enoxaparin Sodium (Enoxaparin 30 Mg/0.3 Ml Syringe) 30 mg SUBCUT Q24H [facility] Last Admin: 07/08/24 10:06 Dose: 30 mg Ergocalciferol (Ergocalciferol (Vitamin D2) 50,000 Unit Capsule) 50,000 unit PO Q7D [facility] Last Admin: 07/08/24 10:05 Dose: 50,000 unit Furosemide (Furosemide 10 Mg/Ml Sdv 4ml) 40 mg IVP Q12H [facility] Last Admin: 07/09/24 02:21 Dose: 40 mg Glucagon (Glucagon 1 Mg/Ml Kit 1 Ml) 1 mg IM ONCE PRN; Protocol PRN Reason: Adult Acute Hypoglycemia Nursing Prot. Hydralazine HCl (Hydralazine 10 Mg Tablet) 25 mg PO TID [facility] Last Admin: 07/08/24 20:51 Dose: 25 mg Dextrose (D5w) 500 mls @ 0 mls/hr IV ONCE PRN; Protocol PRN Reason: Adult Acute Hypoglycemia Prot Dextrose (D10w) 125 mls @ 750 mls/hr IV PRN PRN; Protocol PRN Reason: Adult Acute Hypoglycemia Nursing Protocol Dextrose (D10w) 250 mls @ 1,000 mls/hr IV PRN PRN; Protocol PRN Reason: Adult Acute Hypoglycemia Nursing Protocol Insulin Human Lispro (Insulin Lispro 100 Unit/1 Ml) 0 unit SUBCUT WM&BEDTIME [facility]; Protocol Last Admin: 07/08/24 20:53 Dose: 12 unit Metoprolol Tartrate (Metoprolol Tartrate 50 Mg Tablet) 100 mg PO BID@0900,2100 [facility] Last Admin: 07/08/24 20:51 Dose: 100 mg Morphine Sulfate (Morphine 4 Mg/Ml Sdv 1 Ml) 2 mg IVP Q6H PRN PRN Reason: SEVERE PAIN Last Admin: 07/09/24 02:26 Dose: 2 mg Naloxone HCl (Naloxone 0.4 Mg/Ml Sdv) 0.1 mg IVP Q2M PRN PRN Reason: RESPIRATORY RATE < 8/MIN Nitroglycerin (Nitroglycerin 0.4 Mg Sublingual Tablet) 0.4 mg SUBLINGUAL Q5M PRN PRN Reason: CHEST PAIN Last Admin: 07/08/24 17:44 Dose: 0.4 mg Ondansetron HCl (Ondansetron 2 Mg/Ml Sdv 2 Ml) 4 mg IVP Q6H PRN PRN Reason: NAUSEA AND VOMITING Last Admin: 07/08/24 17:50 Dose: 4 mg Senna/Docusate Sodium (Sennosides-Docusate Tablet) 1 tab PO DAILY [facility] Last Admin: 07/08/24 10:06 Dose: Not Given Triamcinolone Acetonide (Triamcinolone 0.1% Cream 15 Gm) 1 applic TOPICAL BID PRN PRN Reason: skin rash Vitals/I&O/Wt Last Vital Signs Temp 98.1 F 07/09/24 04:00 Pulse 64 07/09/24 06:00 Resp 18 07/09/24 04:00 BP 122/69 07/09/24 04:00 Pulse Ox 94 07/09/24 04:00 O2 Del Method Room Air 07/08/24 16:00 O2 Flow Rate 2 07/05/24 03:25 FiO2 50 07/02/24 00:00 07/08/24 07/09/24 07/09/24 22:59 06:59 14:59 Intake Total 260 / 940 Output Total 1000 / 2400 Balance -740 / -1460 Weight last 48 hrs Weight 109.588 kg Weight 109.452 kg Physical Exam Narrative: VS noted lying comfortably in bed heent- nc/at neck supple, no jvp lungs good air movement b/l heart reg, + s1, s2 abd soft, nt, nd, + bs left Femoral dialysis catheter ext + b/l 2+ leg edema neuro- a,a,o x 3, from x4, no asterexis Data 07/08/24 18:32 07/08/24 18:32 Micro: Microbiology 07/03/24 14:00 Gram Stain - Final Pleural Fluid Anaerobic Culture - Preliminary Body Fluid Culture - Final A&P Assessment and plan (1) Acute kidney injury superimposed on CKD: 64-year-old male with hypertension diabetes CHF, chronic kidney disease stage III baseline creatinine in the 2 range, presented with REGINO ST elevation [place] 1. Acute on chronic kidney disease stage IIIb: Baseline creatinine in the 2 range now has REGINO with a creatinine of 6 likely ATN and contrast nephropathy. -Status post temporary catheter placement and HD x 2 sessions and last HD was on Tuesday. -Creatinine trending down slowly and urine output picking up, holding off on HD and watch for recovery -Renal ultrasound thickened and lobulated contour with chronic outlet obstruction with concern for mass versus clot in the bladder. Need urology referral as outpatient. -UA with 4+ protein, nephrotic range proteinuria-M ACR -if cr improving tomorrow, then remove his dialysis catheter 2. Nephrotic range proteinuria: Likely from diabetic nephropathy., Refer to nephrology as outpatient for further workup including renal biopsy as outpatient. Other serologies pending 3. STEMI, status post left heart cath, ejection fraction 35 to 40% 4. Bilateral pleural effusions, status post thoracentesis 5. Anemia, Tsat 20%, monitor on ELROY 6. Renal bone metabolism , repleting vitamin D, added Phos binder 7. hyponatremia and edema- may need lasix seen and examined using AV equipment and the aid of a nurse he consents to telehealth and HD as needed Plan see above Attestations Medical Necessity Statement*: REGINO, CAD Time Spent in Patient Care: 16 - 35 minutes (>than 50% of time spent in counselling and/or direct pt care on unit). Coding Level of Care Code Acute Code for Chg Fwd Diagnoses Acute kidney injury superimposed on CKD N17.9; N18.9
[2024-07-09] MEDS: insulin lispro 100 unit/1 mL SUBCUT ×3 (08:20→17:23)
[2024-07-09] MEDS: enoxaparin 30 mg/0.3 mL Syringe SUBCUT (08:20)
[2024-07-09] MEDS: hyDRALAzine 10 mg Tablet 25 MG PO ×3 (08:21→20:45)
[2024-07-09] MEDS: amlodipine 5 mg Tablet PO ×2 (08:23→17:24)
[2024-07-09] MEDS: clopidogrel 75 mg Tablet PO (08:23)
[2024-07-09] MEDS: sennosides-docusate Tablet 1 TAB PO (08:23)
[2024-07-09] MEDS: aspirin 81 mg EC Tablet PO (08:23)
[2024-07-09] MEDS: metoprolol tartrate 50 mg Tablet 100 MG PO ×2 (08:24→20:45)
--- NOTE | 2024-07-09 11:21 | PM.PN ---
Subjective Subjective: Overnight patient had apparent TIA per neurology diagnosis, he has essentially returned to baseline this morning without any administration of thrombolytics. Nephrology plan is to hold off dialysis and monitor for renal function. No chest pain, shortness of breath. Likely some residual bilateral pleural effusions but not significant enough for thoracentesis. Vitals/I&O/Wt Last Vital Signs Temp 98.1 F 07/09/24 08:40 Pulse 73 07/09/24 08:40 Resp 17 07/09/24 08:40 BP 152/57 07/09/24 08:40 Pulse Ox 94 07/09/24 08:40 O2 Del Method Room Air 07/09/24 08:40 O2 Flow Rate 2 07/05/24 03:25 FiO2 50 07/02/24 00:00 07/08/24 07/09/24 07/09/24 22:59 06:59 14:59 Intake Total 260 / 940 480 / 480 Output Total 1000 / 2400 1000 / 1000 Balance -740 / -1460 -520 / -520 Weight last 48 hrs Weight 241 lb 9.6 oz Weight 241 lb 4.8 oz Physical Exam Const: COMMON NORMALS: no acute distress and patient oriented x3 GENERAL APPEARANCE: cooperative and comfortable ORIENTATION/CONSCIOUSNESS: Yes awake, Yes oriented to person, Yes oriented to place and Yes oriented to time Chest: COMMONS NORMALS: normal inspection of the chest and normal palpation of entire chest wall CHEST: Yes Symmetrical chest wall rise Resp: COMMON NORMALS: normal respiratory effort, No retractions and No use of accessory muscles EFFORT & INSPECTION: Yes symmetric chest movement AUSCULTATION: diminished lung sounds bilateral in the lower lung syed Cardio: COMMON NORMALS: regular rate, regular rhythm, S1 normal heart sound present, S2 normal heart sound present, No gallops present (Cardio), No clicks present (Cardio), No murmurs present (Cardio) and No rub (Cardio) RATE: regular rate RHYTHM: regular rhythm HEART SOUNDS: S1 normal heart sound present and S2 normal heart sound present PERIPHERAL PULSES: radial pulses present Extremity: COMMON NORMALS: no pedal edema Neuro: COMMON NORMALS: patient oriented x3 and moves all extremities SENSORIUM/ORIENTATION: Yes oriented to person, Yes oriented to place and Yes oriented to time Data 07/08/24 18:32 07/08/24 18:32 Micro: Microbiology 07/03/24 14:00 Gram Stain - Final Pleural Fluid Anaerobic Culture - Preliminary Body Fluid Culture - Final A&P Assessment and plan (1) STEMI (ST elevation myocardial infarction): S/P STEMI, troponin elevation on 07/08/24 up to 715, increased to 775 at 120 minute, 6 hour was down to 748. No chest pain this morning. [place] to be neurocardiac secondary to CVA/TIA. Continue aspirin, statin, Plavix, metoprolol tartrate. Qualifiers: Involved coronary artery: LAD coronary artery Qualified Code(s): I21.02 - ST elevation (STEMI) myocardial infarction involving left anterior descending coronary artery (2) Acute on chronic congestive heart failure: He appears volume overloaded, nephrology plans for Lasix Qualifiers: Heart failure type: systolic Qualified Code(s): I50.23 - Acute on chronic systolic (congestive) heart failure (3) Hyperlipidemia: Continue statin Qualifiers: Hyperlipidemia type: mixed hyperlipidemia Qualified Code(s): E78.2 - Mixed hyperlipidemia (4) Hypertension: Blood pressure 120-150's systolic, will defer to neurology on management given possible CVA/TIA. Qualifiers: Hypertension type: primary hypertension Qualified Code(s): I10 - Essential (primary) hypertension (5) Acute kidney injury superimposed on CKD: Attestations Medical Necessity Statement*: requires continued hospitalization for TIA, CKD, s/p STEMI Coding Level of Care Code Acute Code for [facility] Diagnoses ST elevation myocardial infarction involving left anterior descending (LAD) coronary artery I21.02 Involved coronary artery: LAD coronary artery Acute on chronic systolic congestive heart failure I50.23 Heart failure type: systolic Mixed hyperlipidemia E78.2 Hyperlipidemia type: mixed hyperlipidemia Primary hypertension I10 Hypertension type: primary hypertension Acute kidney injury superimposed on CKD N17.9; N18.9
[2024-07-09 11:42] LABS: Glucose Point of Care 224 mg/dL (70-110)
--- NOTE | 2024-07-09 14:00 | PM.PN ---
Subjective Subjective: Seen this morning. Creatinine 4.3. Chest pain-free overnight. Nephrology deciding to possibly remove dialysis catheter. Vitals/I&O/Wt Last Vital Signs Temp 97.7 F 07/09/24 11:44 Pulse 65 07/09/24 11:44 Resp 17 07/09/24 11:44 BP 130/67 07/09/24 11:44 Pulse Ox 92 07/09/24 11:44 O2 Del Method Room Air 07/09/24 11:44 O2 Flow Rate 2 07/05/24 03:25 FiO2 50 07/02/24 00:00 07/08/24 07/09/24 07/09/24 22:59 06:59 14:59 Intake Total 260 / 940 1160 / 1160 Output Total 1000 / 2400 1300 / 1300 Balance -740 / -1460 -140 / -140 Weight last 48 hrs Weight 109.588 kg Weight 109.452 kg Physical Exam Narrative: General: Awake alert and oriented x 3. HEENT: PERRLA, pupils bilaterally equal and reactive, pallors not present Chest: Reduced air entry bilaterally CVS: S1-S2 regular, no murmurs, no tachycardia, no gallops, no rubs Abdomen: Soft, nontender, no organomegaly, bowel sounds present Neuro: Nonfocal Data 07/08/24 18:32 07/08/24 18:32 Micro: Microbiology 07/03/24 14:00 Gram Stain - Final Pleural Fluid Anaerobic Culture - Preliminary Body Fluid Culture - Final A&P Assessment and plan (1) CHF (congestive heart failure): Qualifiers: Heart failure type: combined systolic and diastolic Heart failure chronicity: acute on chronic Qualified Code(s): I50.43 - Acute on chronic combined systolic (congestive) and diastolic (congestive) heart failure (2) Poor compliance: (3) Acute on chronic congestive heart failure: Qualifiers: Heart failure type: systolic Qualified Code(s): I50.23 - Acute on chronic systolic (congestive) heart failure (4) STEMI (ST elevation myocardial infarction): Qualifiers: Involved coronary artery: LAD coronary artery Qualified Code(s): I21.02 - ST elevation (STEMI) myocardial infarction involving left anterior descending coronary artery (5) Hyperlipidemia: Qualifiers: Hyperlipidemia type: mixed hyperlipidemia Qualified Code(s): E78.2 - Mixed hyperlipidemia (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: (7) REGINO (acute kidney injury): (8) Sciatica: (9) Neuropathy, diabetic: Plan STEMI Status post LAD 2 stents Continue dual antiplatelet therapy along statins Patient has been weaned off Levophed Echo report to be followed Acute systolic CHF exacerbation Currently on IV diuretic regimen along BiPAP Hansen catheter refused by the patient, stating that he would like to use urinal Type II diabetic with complications related to neuropathy Continue insulin sliding scale Cardiac consistent carb diet Pulm edema: I have requested BiPAP overnight patient is agreeable DVT prophylaxis: Heparin Will follow along cardiology Full code 06/30/2024 -Patient is status post 2 stents ? Contrast-induced nephropathy versus combination of cardiorenal plus contrast-induced worsening: Creatinine 4.0. ? Consult nephrology. Await recommendations ? Continue insulin sliding scale ? Continue on Lasix 20 IV twice daily patient is fluid overload intermittently diuresis. ? Continue aspirin Plavix atorvastatin ? Medicine will continue to follow along. ? Patient has refused Hansen catheter. 07/01/2024 -Continue Lasix drip at this time. ? Urine output 300 cc overnight. ? Creatinine is worsening. Nephrology following. ? Continue aspirin Plavix atorvastatin ? CT chest abdomen pelvis pending at this time to evaluate for granuloma and because of renal failure ? Renal ultrasound also pending at this time ? Medicine will continue to follow July 02, 2023 Creatinine trending up to 6, remains oliguric. Starting dialysis today. Recommend consulting surgery for placement of HD catheter. Thoracentesis would likely help benefit the patient. Patient states he has previously had thoracentesis in August 2023. He states he was told the He states he has had multiple admissions in the past year related to heart failure however has not needed thoracentesis since August. Thoracentesis and pleural fluid analysis ordered. Diuresis per primary cardiology team July 03, 2024. 64-year-old male with past medical history of nonischemic cardiomyopathy diabetes brought to the emergency room on June 29, 2024 with a STEMI. Patient underwent coronary angiogram underwent revascularization with 2 stents. Shortly after being brought back to the ICU he started to complain of chest discomfort again and underwent a repeat coronary angiogram. This showed patent prior stents without any changes. Hospital course has been notable for acute on chronic systolic CHF exacerbation for which patient was on IV diuresis, development of acute kidney injury asked CKD for which she has been started on hemodialysis. Imaging showed echogenic filling defect/mass in the lumen of the urinary bladder which may be regional sales representative of a mass or neoplasm, he will need urology evaluation shortly after discharge. Unfortunately we do not have urology services available inpatient. He has bilateral pleural effusions, status post thoracentesis on the right side today. There was concern for potential LV thrombus earlier this admission which has been ruled out. Patient is currently on aspirin Plavix atorvastatin. His breathing is improved since initiation of hemodialysis. Also underwent thoracentesis today which has helped. he will be receiving hemodialysis postthoracentesis today. july 04, 2024: Clinically better today. off supplemental 02. Monitoring renal function for potential recovery. PT/OT eval. July 05, 2024 Remains off supplemental oxygen. Creatinine at 6. Awaiting renal recovery to decide regarding long-term dialysis. Did well with physical therapy. QuantiFERON TB screen negative. Mycobacterial smear and culture awaited from pleural fluid. No WBCs, no growth on culture. Diuresis per cardiology and nephrology. July 07, 2024 : On RA today, no acute interim events. Cr better, urine putput > 900cc. Plan to monitor renal function over the weekend off dialysis to decide regarding senior care HD vs discontinuation of further sessions. SBP trending to HTN now, resume home med hydralazine , lower dose of 10TID for now , if tolerated, then to uptitrate Januray 2023 Patient is more dyspneic today. Appears to be tiring out in conversation. This is different from previous exams. Increased lower extremity swelling today. Creatinine is at 5.0. Urine output at 2600 cc. Discussed case with nephrology. Increase Lasix to 40 mg IV every 12 hours and continue to monitor closely. If renal function starts to deteriorate with increased diuresis or does not have significant response may need to consider long-term dialysis for him. Blood pressure continuing to be ranging 1 50-1 60 systolic. Recommend to increase hydralazine to 25 mg 3 times daily today. 07/09/2024 Sitting up on edge of bed. States he feels better. Patient upset because he thought he is going to be going home on dialysis however nephrology was planning to remove dialysis catheter today. Discussed with him that his creatinine is improving and urine output is improving as well. He has not had another dialysis session since 1/8. Has been chest pain-free. ?will discuss with cardiology and nephroloy to coordinate - plan for dc home in possibly 48 hours. Attestations Medical Necessity Statement*: defer to primary team Diagnoses Acute on chronic combined systolic and diastolic congestive heart failure I50.43 Heart failure type: combined systolic and diastolic Heart failure chronicity: acute on chronic Poor compliance Z91.199 Acute on chronic systolic congestive heart failure I50.23 Heart failure type: systolic ST elevation myocardial infarction involving left anterior descending (LAD) coronary artery I21.02 Involved coronary artery: LAD coronary artery Mixed hyperlipidemia E78.2 Hyperlipidemia type: mixed hyperlipidemia 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
[2024-07-09 16:22] LABS: Glucose Point of Care 170 mg/dL (70-110)
[2024-07-09 20:39] LABS: Glucose Point of Care 234 mg/dL (70-110)
[2024-07-09] MEDS: atorvastatin 40 mg Tablet 80 MG PO (20:44)
[2024-07-09] MEDS: acetaminophen 325 mg Tablet 650 MG PO (20:50)
[2024-07-09 23:37] LABS: Glucose Point of Care 199 mg/dL (70-110)
[2024-07-10] VITALS (12 sets, daily range): BP systolic 139–163; BP diastolic 68–80; PULSE 66–80; RESP 16–18; TEMP 35.7–37.1; O2SAT 92–95
[2024-07-10] MEDS: FUROsemide 10 mg/mL SDV 4mL 40 MG IVP (03:15)
[2024-07-10 05:40] LABS: Basophils # 0.1 10^3/uL (0.0-0.1); Basophils % 0.9 %; Eosinophils % 0.5 %; Hematocrit 25.7 % (37-53); Lymphocytes # 1.2 10^3/uL (0.8-4.8); Lymphocytes % 21.1 %; Mean Corpuscular HGB Conc 31.5 g/dL (30-55); Mean Corpuscular Hemoglobin 27.6 pg (27-33); Mean Corpuscular Volume 87.7 fl (82-101); Mean Platelet Volume 10.6 fL (7.4-10.4); Monocytes # 0.6 10^3/uL (0.2-0.9); Monocytes % 10.1 %; Neutrophils # 3.77 10^3/uL (1.8-7.7); Nucleated Red Blood Cells % 0 %; Platelet Count 244 10^3/cmm (157-399); Red Blood Count 2.93 10^6/uL (3.85-5.65); Red Cell Distribution Width 14.6 % (12.1-15.1); White Blood Count 5.63 10^3/uL (3.29-11.43)
[2024-07-10 06:20] LABS: Calcium 8.7 mg/dL (8.5-10.5)
[2024-07-10 06:21] LABS: Alanine Aminotransferase 12 U/L (0-41); Albumin Level 2.8 g/dL (3.5-5.2); Alkaline Phosphatase 114 U/L (40-130); Anion Gap 14.8 (5-19); Aspartate Amino Transferase 13 U/L (0-40); Blood Urea Nitrogen 77 mg/dL (8-23); Calcium 8.8 mg/dL (8.5-10.5); Carbon Dioxide 24 mmol/L (22-29); Chloride 101 mmol/L (98-107); Creatinine Clr Calc Pharmacy 17.3645; Globulin 3.3 g/dL (1.3-4.6); Glucose 192 mg/dL (65-115); Magnesium 1.8 mg/dL (1.7-2.3); Osmolality Calculated 308 mOsm/kg (285-295); Phosphorus 4.5 mg/dL (2.5-4.5); Potassium 4.8 mmol/L (3.5-5.1); Sodium 135 mmol/L (136-145); Total Bilirubin 0.2 mg/dL (0.15-1.2); Total Protein 6.1 g/dL (6.6-8.7)
[2024-07-10 06:22] LABS: Glucose Point of Care 199 mg/dL (70-110)
[2024-07-10 06:27] LABS: Parathyroid Hormone 135.9 pg/mL (15-65)
--- NOTE | 2024-07-10 08:44 | P.PN_ITS ---
Subjective 2 Subjective: weak, swollen, aob, edema Medications: Reviewed: Yes Medication Review Details: Current Medications Acetaminophen (Acetaminophen 325 Mg Tablet) 650 mg PO Q6H PRN PRN Reason: MILD PAIN Last Admin: 07/09/24 20:50 Dose: 650 mg Acetaminophen (Acetaminophen 500 Mg Tablet) 500 mg PO Q4H PRN PRN Reason: fever Albuterol/Ipratropium (Ipratropium-Albuterol 3 Ml Neb) 3 ml INHALATION Q6H PRN PRN Reason: SHORTNESS OF BREATH Amlodipine Besylate (Amlodipine 5 Mg Tablet) 5 mg PO BID [facility] Last Admin: 07/09/24 17:24 Dose: 5 mg Aspirin (Aspirin 81 Mg Ec Tablet) 81 mg PO DAILY [facility] Last Admin: 07/09/24 08:23 Dose: 81 mg Atorvastatin Calcium (Atorvastatin 40 Mg Tablet) 80 mg PO BEDTIME [facility] Last Admin: 07/09/24 20:44 Dose: 80 mg Atropine Sulfate (Atropine 1 Mg/Ml Sdv 1 Ml) 0.5 mg IVP PRN PRN PRN Reason: Symptomatic bradycardia Calamine (Calamine Lotion 177 Ml Btl) 1 applic TOPICAL Q4H PRN PRN Reason: ITCHING Last Admin: 07/04/24 11:39 Dose: 1 applic Clopidogrel Bisulfate (Clopidogrel 75 Mg Tablet) 75 mg PO DAILY [facility] Last Admin: 07/09/24 08:23 Dose: 75 mg Enoxaparin Sodium (Enoxaparin 30 Mg/0.3 Ml Syringe) 30 mg SUBCUT Q24H [facility] Last Admin: 07/09/24 08:20 Dose: 30 mg Ergocalciferol (Ergocalciferol (Vitamin D2) 50,000 Unit Capsule) 50,000 unit PO Q7D [facility] Last Admin: 07/08/24 10:05 Dose: 50,000 unit Furosemide (Furosemide 10 Mg/Ml Sdv 4ml) 40 mg IVP Q12H [facility] Last Admin: 07/10/24 03:15 Dose: 40 mg Glucagon (Glucagon 1 Mg/Ml Kit 1 Ml) 1 mg IM ONCE PRN; Protocol PRN Reason: Adult Acute Hypoglycemia Nursing Prot. Hydralazine HCl (Hydralazine 10 Mg Tablet) 25 mg PO TID [facility] Last Admin: 07/09/24 20:45 Dose: 25 mg Dextrose (D5w) 500 mls @ 0 mls/hr IV ONCE PRN; Protocol PRN Reason: Adult Acute Hypoglycemia Prot Dextrose (D10w) 125 mls @ 750 mls/hr IV PRN PRN; Protocol PRN Reason: Adult Acute Hypoglycemia Nursing Protocol Dextrose (D10w) 250 mls @ 1,000 mls/hr IV PRN PRN; Protocol PRN Reason: Adult Acute Hypoglycemia Nursing Protocol Insulin Human Lispro (Insulin Lispro 100 Unit/1 Ml) 0 unit SUBCUT WM&BEDTIME [facility]; Protocol Last Admin: 07/09/24 23:38 Dose: Not Given Metoprolol Tartrate (Metoprolol Tartrate 50 Mg Tablet) 100 mg PO BID@0900,2100 [facility] Last Admin: 07/09/24 20:45 Dose: 100 mg Morphine Sulfate (Morphine 4 Mg/Ml Sdv 1 Ml) 2 mg IVP Q6H PRN PRN Reason: SEVERE PAIN Last Admin: 07/09/24 23:37 Dose: 2 mg Naloxone HCl (Naloxone 0.4 Mg/Ml Sdv) 0.1 mg IVP Q2M PRN PRN Reason: RESPIRATORY RATE < 8/MIN Nitroglycerin (Nitroglycerin 0.4 Mg Sublingual Tablet) 0.4 mg SUBLINGUAL Q5M PRN PRN Reason: CHEST PAIN Last Admin: 07/08/24 17:44 Dose: 0.4 mg Ondansetron HCl (Ondansetron 2 Mg/Ml Sdv 2 Ml) 4 mg IVP Q6H PRN PRN Reason: NAUSEA AND VOMITING Last Admin: 07/08/24 17:50 Dose: 4 mg Senna/Docusate Sodium (Sennosides-Docusate Tablet) 1 tab PO DAILY [facility] Last Admin: 07/09/24 08:23 Dose: 1 tab Triamcinolone Acetonide (Triamcinolone 0.1% Cream 15 Gm) 1 applic TOPICAL BID PRN PRN Reason: skin rash Vitals/I&O/Wt Last Vital Signs Temp 98.1 F 07/10/24 08:01 Pulse 75 07/10/24 08:01 Resp 18 07/10/24 08:01 BP 163/72 07/10/24 08:01 Pulse Ox 92 07/10/24 08:01 O2 Del Method Room Air 07/10/24 08:01 O2 Flow Rate 2 07/05/24 03:25 FiO2 50 07/02/24 00:00 07/09/24 07/10/24 07/10/24 22:59 06:59 14:59 Intake Total 360 / 1520 720 / 720 Output Total 900 / 2200 600 / 600 Balance -540 / -680 120 / 120 Weight last 48 hrs Weight 109.089 kg Weight 109.588 kg Physical Exam 2 Narrative: sitting up in bed SOB VS noted heent- nc/at neck supple, no jvp lungs dull bases b/l heart reg, + s1, s2 abd soft, nt, nd, + bs left Femoral dialysis catheter ext + b/l 2+ leg edema neuro- a,a,o x 3, from x4, no asterexis Data 07/10/24 05:19 07/10/24 05:19 Micro: Microbiology 07/03/24 14:00 Gram Stain - Final Pleural Fluid Anaerobic Culture - Preliminary Body Fluid Culture - Final A&P Assessment and plan (1) Acute kidney injury superimposed on CKD: 64-year-old male with hypertension diabetes CHF, chronic kidney disease stage III baseline creatinine in the 2 range, presented with REGINO ST elevation [place] 1. Acute on chronic kidney disease stage IIIb: Baseline creatinine 1.7 mg/dl in August 2023. He presented w/ REGINO. He had many contrrast studies and AMI - recommendations -PLEASE CONSIDER THORACENTESIS - will dialyze today -pt has a temporary HD catheetr, will use today. then please call surgery for a permacath and to remove his temporary HD catheter -Renal ultrasound thickened and lobulated contour with chronic outlet obstruction with concern for mass versus clot in the bladder. Need urology referral as outpatient. -UA with 4+ protein, nephrotic range proteinuria-M ACR 2. Nephrotic range proteinuria: Likely from diabetic nephropathy., Refer to nephrology as outpatient for further workup including renal biopsy as outpatient. Other serologies pending 3. STEMI, status post left heart cath, ejection fraction 35 to 40% 4. Bilateral pleural effusions, status post thoracentesis- q if he needs more as he has effusions 5. Anemia, Tsat 20%, monitor on ELROY 6. Renal bone metabolism , repleting vitamin D, added Phos binder seen and examined using AV equipment and the aid of a nurse he consents to telehealth and HD as needed Plan see above Attestations 2 Medical Necessity Statement*: regino, needs dialysis, question if needs thoracentesis Time Spent in Patient Care: 16 - 35 minutes (>than 50% of time sp ent in counselling and/or direct pt care on unit) . Coding Level of Care Code Acute Code for Chg Fwd Diagnoses Acute kidney injury superimposed on CKD N17.9; N18.9
[2024-07-10] MEDS: hyDRALAzine 10 mg Tablet 25 MG PO ×3 (08:48→20:30)
[2024-07-10] MEDS: aspirin 81 mg EC Tablet PO (08:48)
[2024-07-10] MEDS: sennosides-docusate Tablet 1 TAB PO (08:49)
[2024-07-10] MEDS: insulin lispro 100 unit/1 mL SUBCUT ×2 (08:49→17:45)
[2024-07-10] MEDS: enoxaparin 30 mg/0.3 mL Syringe SUBCUT (08:49)
[2024-07-10] MEDS: amlodipine 5 mg Tablet PO ×2 (08:49→17:46)
[2024-07-10] MEDS: clopidogrel 75 mg Tablet PO (08:49)
[2024-07-10] MEDS: metoprolol tartrate 50 mg Tablet 100 MG PO ×2 (08:51→20:30)
--- NOTE | 2024-07-10 09:17 | P.PN_ITS ---
<Statement entered by Yomaira Sabillon MD - 07/10/24 21:31> Patient was evaluated and cared for in conjunction with an advanced practice practitioner. I personally examined the patient and reviewed the chart and all pertinent data including imaging, telemetry, and laboratory results. I discussed the patient in detail with the advanced practice practitioner. Please see their note for complete H&P testing result and agreed upon plan of care for the patient. Patient denies any complaint he has been started on hemodialysis no chest pain overnight GENERAL: Patient is alert, awake and oriented x3. HEART: Regular S1 and S2. No murmur, rub or gallop. LUNGS: Clear to auscultate bilaterally. CENTRAL NERVOUS SYSTEM: Grossly nonfocal. EXTREMITIES: Lower extremities with out edema bilaterally. Assessment and plan Status post ST elevation IA status post PCI Severely depressed left ventricular ejection fraction Bilateral pleural effusion Acute decompensated systolic heart failure on chronic Acute on chronic kidney disease requiring dialysis Cerebrovascular accident, recovered fully Continue IV diuresis Patient had temporary dialysis cath in place Will order contrast echo limited to rule out LV thrombus Subjective 2 Subjective: Patient is in dialysis currently, not on the floor. Discussed case with Dr Davey, plan is to place permanent dialysis catheter tomorrow. He has some volume overload today, which can be addressed with hemodialysis. Hemoglobin today 8.1, creatinine 5.3. Blood pressure slightly elevated today, likely due to volume overload. No chest pain. Returned to see patient after dialysis, at 1600. He is resting in bed, notes generalized pain for which he took acetaminophen. His weight is 3 pounds down after dialysis. No chest pressure, no shortness of breath at rest. Nephrology mentioned question of thoracentesis for pleural effusion. Will discuss with hospitalist. Vitals/I&O/Wt Last Vital Signs Temp 98.1 F 07/10/24 08:01 Pulse 75 07/10/24 08:01 Resp 18 07/10/24 08:01 BP 163/72 07/10/24 08:01 Pulse Ox 92 07/10/24 08:01 O2 Del Method Room Air 07/10/24 08:01 O2 Flow Rate 2 07/05/24 03:25 FiO2 50 07/02/24 00:00 07/09/24 07/10/24 07/10/24 22:59 06:59 14:59 Intake Total 360 / 1520 720 / 720 Output Total 900 / 2200 600 / 600 Balance -540 / -680 120 / 120 Weight last 48 hrs Weight 240 lb 8 oz Weight 241 lb 9.6 oz Physical Exam 2 Const: COMMON NORMALS: no acute distress and patient oriented x3 GENERAL APPEARANCE: cooperative and comfortable ORIENTATION/CONSCIOUSNESS: Yes awake, Yes oriented to person, Yes oriented to place and Yes oriented to time Chest: COMMONS NORMALS: normal inspection of the chest and normal palpation of entire chest wall CHEST: Yes Symmetrical chest wall rise Resp: COMMON NORMALS: normal respiratory effort, No retractions, No use of accessory muscles and clear to auscultation bilaterally EFFORT & INSPECTION: Yes symmetric chest movement AUSCULTATION: clear to auscultation bilaterally Cardio: COMMON NORMALS: regular rate, regular rhythm, S1 normal heart sound present, S2 normal heart sound present, No gallops present (Cardio), No clicks present (Cardio), No murmurs present (Cardio) and No rub (Cardio) RATE: r egular rate RHYTHM: regular rhythm HEART SOUNDS: S1 normal heart sound present and S2 normal heart sound present PERIPHERAL PULSES: radial pulses present Extremity: COMMON NORMALS: no pedal edema Neuro: COMMON NORMALS: patient oriented x3 and moves all extremities S ENSORIUM/ORIENTATION: Yes oriented to person, Yes oriented to place and Yes oriented to time Data 07/10/24 05:19 07/10/24 05:19 Micro: Microbiology 07/03/24 14:00 Gram Stain - Final Pleural Fluid Anaerobic Culture - Preliminary Body Fluid Culture - Final A&P Assessment and plan (1) STEMI (ST elevation myocardial infarction): S/P STEMI on 06/29/24, JUAN x 2 to proximal LAD, mid RCA 60-70% stenosis. No chest pain. Continue aspirin, Plavix, statin, metoprolol tartrate 100mg BID, amlodipine 5mg BID, hydralazine 25mg TID. Qualifiers: Involved coronary artery: LAD coronary artery Qualified Code(s): I21.02 - ST elevation (STEMI) myocardial infarction involving left anterior descending coronary artery (2) Acute on chronic congestive heart failure: Volume overloaded, dialysis today. Qualifiers: Heart failure type: systolic Qualified Code(s): I50.23 - Acute on chronic systolic (congestive) heart failure (3) Hyperlipidemia: Qualifiers: Hyperlipidemia type: mixed hyperlipidemia Qualified Code(s): E78.2 - Mixed hyperlipidemia (4) Hypertension: Qualifiers: Hypertension type: primary hypertension Qualified Code(s): I10 - Essential (primary) hypertension (5) Acute kidney injury superimposed on CKD: Permanent dialysis catheter placement planned for tomorrow. If stable, can consider discharge home with plans for outpatient dialysis. Attestations 2 Medical Necessity Statement*: HD cath placement tomorrow, dialysis today Coding Level of Care Code Acute Code for [facility] Diagnoses ST elevation myocardial infarction involving left anterior descending (LAD) coronary artery I21.02 Involved coronary artery: LAD coronary artery Acute on chronic systolic congestive heart failure I50.23 Heart failure type: systolic Mixed hyperlipidemia E78.2 Hyperlipidemia type: mixed hyperlipidemia Primary hypertension I10 Hypertension type: primary hypertension Acute kidney injury superimposed on CKD N17.9; N18.9
--- NOTE | 2024-07-10 10:45 | PC.HD ---
Upon arrival to dialysis room, patient stated he was short of breath. O2 sats on room air were 88%. Patient placed on 2L NC. Currently, sats are 95% on 2L NC. Heparin 1000 units loading dose administered at 1023 per on air host's orders, via arterial port of HD catheter.
--- NOTE | 2024-07-10 11:35 | P.PN_ITS ---
Subjective 2 Subjective: Medicine requesting TDC Vitals/I&O/Wt Last Vital Signs Temp 96.3 F L 07/10/24 10:44 Pulse 78 07/10/24 10:44 Resp 18 07/10/24 10:44 BP 153/72 07/10/24 10:44 Pulse Ox 95 07/10/24 10:00 O2 Del Method Room Air 07/10/24 10:00 O2 Flow Rate 2 07/05/24 03:25 FiO2 50 07/02/24 00:00 07/09/24 07/10/24 07/10/24 22:59 06:59 14:59 Intake Total 360 / 1520 720 / 720 Output Total 900 / 2200 600 / 600 Balance -540 / -680 120 / 120 Weight last 48 hrs Weight 240 lb 8 oz Weight 241 lb 9.6 oz Physical Exam 2 Narrative: Chest: Unlabored breathing room air. No lymphadenopathy. Heart: Regular rate and rhythm. Abdomen: Soft, nontender, nondistended. No masses or lymphadenopathy. Data 07/10/24 05:19 07/10/24 05:19 Micro: Microbiology 07/03/24 14:00 Gram Stain - Final Pleural Fluid Anaerobic Culture - Preliminary Body Fluid Culture - Final A&P Assessment and plan (1) Acute kidney injury superimposed on CKD: Plan 64-year-old male in renal failure. Medicine requesting tunneled dialysis catheter. Discussed risks and benefits and patient agrees to proceed with tunneled dialysis catheter. Will remove temporary dialysis catheter in the groin in the operating room. Attestations 2 Medical Necessity Statement*: N/A Coding Level of Care Code 80095 Diagnoses Acute kidney injury superimposed on CKD N17.9; N18.9 Time Spent (min) 30
[2024-07-10 12:05] LABS: Glucose Point of Care 222 mg/dL (70-110)
--- NOTE | 2024-07-10 14:19 | P.PN_ITS ---
Subjective 2 Subjective: Seen this morning. Patient going for dialysis today as per nephrology recommendations Patient seen in dialysis. Currently in treatment. Discussed with him regarding placing a permanent catheter in a.m. and potential discharge in next 24 hours. Patient is on board with the plan. Vitals/I&O/Wt Last Vital Signs Temp 97.8 F 07/10/24 12:09 Pulse 80 07/10/24 12:09 Resp 17 07/10/24 12:09 BP 154/80 07/10/24 12:09 Pulse Ox 92 07/10/24 12:09 O2 Del Method Room Air 07/10/24 12:09 O2 Flow Rate 2 07/05/24 03:25 FiO2 50 07/02/24 00:00 07/09/24 07/10/24 07/10/24 22:59 06:59 14:59 Intake Total 360 / 1520 720 / 720 Output Total 900 / 2200 800 / 800 Balance -540 / -680 -80 / -80 Weight last 48 hrs Weight 109.089 kg Weight 109.588 kg Physical Exam 2 Narrative: General: Awake alert and oriented x 3. HEENT: PERRLA, pupils bilaterally equal and reactive, pallors not present Chest: Reduced bilateral air entry, however generally clear to auscultation. CVS: S1-S2 regular, no murmurs, no tachycardia, no gallops, no rubs Abdomen: Soft, nontender, no organomegaly, bowel sounds present Neuro: Nonfocal Data 07/10/24 05:19 07/10/24 05:19 Micro: Microbiology 07/03/24 14:00 Gram Stain - Final Pleural Fluid Anaerobic Culture - Final Body Fluid Culture - Final A&P Assessment and plan (1) CHF (congestive heart failure): Qualifiers: Heart failure type: combined systolic and diastolic Heart failure chronicity: acute on chronic Qualified Code(s): I50.43 - Acute on chronic combined systolic (congestive) and diastolic (congestive) heart failure (2) Poor compliance: (3) Acute on chronic congestive heart failure: Qualifiers: Heart failure type: systolic Qualified Code(s): I50.23 - Acute on chronic systolic (congestive) heart failure (4) STEMI (ST elevation myocardial infarction): Qualifiers: Involved coronary artery: LAD coronary artery Qualified Code(s): I21.02 - ST elevation (STEMI) myocardial infarction involving left anterior descending coronary artery (5) Hyperlipidemia: Qualifiers: Hyperlipidemia type: mixed hyperlipidemia Qualified Code(s): E78.2 - Mixed hyperlipidemia (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: (7) REGINO (acute kidney injury): (8) Sciatica: (9) Neuropathy, diabetic: Plan STEMI Status post LAD 2 stents Continue dual antiplatelet therapy along statins Patient has been weaned off Levophed Echo report to be followed Acute systolic CHF exacerbation Currently on IV diuretic regimen along BiPAP Hansen catheter refused by the patient, stating that he would like to use urinal Type II diabetic with complications related to neuropathy Continue insulin sliding scale Cardiac consistent carb diet Pulm edema: I have requested BiPAP overnight patient is agreeable DVT prophylaxis: Heparin Will follow along cardiology Full code 06/30/2024 -Patient is status post 2 stents ? Contrast-induced nephropathy versus combination of cardiorenal plus contrast- induced worsening: Creatinine 4.0. ? Consult nephrology. Await recommendations ? Continue insulin sliding scale ? Continue on Lasix 20 IV twice daily patient is fluid overload intermittently diuresis. ? Continue aspirin Plavix atorvastatin ? Medicine will continue to follow along. ? Patient has refused Hansen catheter. 07/01/2024 -Continue Lasix drip at this time. ? Urine output 300 cc overnight. ? Creatinine is worsening. Nephrology following. ? Continue aspirin Plavix atorvastatin ? CT chest abdomen pelvis pending at this time to evaluate for granuloma and because of renal failure ? Renal ultrasound also pending at this time ? Medicine will continue to follow July 02, 2023 Creatinine trending up to 6, remains oliguric. Starting dialysis today. Recommend consulting surgery for placement of HD catheter. Thoracentesis would likely help benefit the patient. Patient states he has previously had thoracentesis in August 2023. He states he was told the He states he has had multiple admissions in the past year related to heart failure however has not needed thoracentesis since August. Thoracentesis and pleural fluid analysis ordered. Diuresis per primary cardiology team July 03, 2024. 64-year-old male with past medical history of nonischemic cardiomyopathy diabetes brought to the emergency room on June 29, 2024 with a STEMI. Patient underwent coronary angiogram underwent revascularization with 2 stents. Shortly after being brought back to the ICU he started to complain of chest discomfort again and underwent a repeat coronary angiogram. This showed patent prior stents without any changes. Hospital course has been notable for acute on chronic systolic CHF exacerbation for which patient was on IV diuresis, development of acute kidney injury asked CKD for which she has been started on hemodialysis. Imaging showed echogenic filling defect/mass in the lumen of the urinary bladder which may be retail field representative of a mass or neoplasm, he will need urology evaluation shortly after discharge. Unfortunately we do not have urology services available inpatient. He has bilateral pleural effusions, status post thoracentesis on the right side today. There was concern for potential LV thrombus earlier this admission which has been ruled out. Patient is currently on aspirin Plavix atorvastatin. His breathing is improved since initiation of hemodialysis. Also underwent thoracentesis today which has helped. he will be receiving hemodialysis postthoracentesis today. july 04, 2024: Clinically better today. off supplemental 02. Monitoring renal function for potential recovery. PT/OT eval. July 05, 2024 Remains off supplemental oxygen. Creatinine at 6. Awaiting renal recovery to decide regarding long-term dialysis. Did well with physical therapy. QuantiFERON TB screen negative. Mycobacterial smear and culture awaited from pleural fluid. No WBCs, no growth on culture. Diuresis per cardiology and nephrology. July 07, 2024 : On RA today, no acute interim events. Cr better, urine putput > 900cc. Plan to monitor renal function over the weekend off dialysis to decide regarding lobsterman HD vs discontinuation of further sessions. SBP trending to HTN now, resume home med hydralazine , lower dose of 10TID for now , if tolerated, then to uptitrate Januray 2023 Patient is more dyspneic today. Appears to be tiring out in conversation. This is different from previous exams. Increased lower extremity swelling today. Creatinine is at 5.0. Urine output at 2600 cc. Discussed case with nephrology. Increase Lasix to 40 mg IV every 12 hours and continue to monitor closely. If renal function starts to deteriorate with increased diuresis or does not have significant response may need to consider long-term dialysis for him. Blood pressure continuing to be ranging 1 50-1 60 systolic. Recommend to increase hydralazine to 25 mg 3 times daily today. 07/09/2024 Sitting up on edge of bed. States he feels better. Patient upset because he thought he is going to be going home on dialysis however nephrology was planning to remove dialysis catheter today. Discussed with him that his creatinine is improving and urine output is improving as well. He has not had another dialysis session since 07/04. Has been chest pain-free. ?will discuss with cardiology and nephroloy to coordinate - plan for dc home in possibly 48 hours. 07/10/2024 -Patient undergoing dialysis today. Creatinine has worsened. ? Plan to place permanent dialysis catheter in AM. Consulted general surgery. Patient to be n.p.o. at midnight. ? Discussed with cardiology as well. Patient will be discharged once chair time is set up and dialysis catheter is placed tomorrow. Defer to primary team regarding final decision. ? Medicine will continue to follow. ? Patient may have issues with transportation going forward. opinion polls survey worker working on posthospital follow-up and to help with that. Attestations 2 Medical Necessity Statement*: Defer to primary team. Diagnoses Acute on chronic combined systolic and diastolic congestive heart failure I50.43 Heart failure type: combined systolic and diastolic Heart failure chronicity: acute on chronic Poor compliance Z91.199 Acute on chronic systolic congestive heart failure I50.23 Heart failure type: systolic ST elevation myocardial infarction involving left anterior descending (LAD) coronary artery I21.02 Involved coronary artery: LAD coronary artery Mixed hyperlipidemia E78.2 Hyperlipidemia type: mixed hyperlipidemia 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
[2024-07-10] MEDS: acetaminophen 500 mg Tablet PO (15:11)
[2024-07-10 16:37] LABS: Glucose Point of Care 295 mg/dL (70-110)
[2024-07-10] MEDS: morphine 4 mg/mL SDV 1 mL 2 MG IVP (20:28)
[2024-07-10] MEDS: ondansetron 2 mg/ML SDV 2 mL 4 MG IVP (20:29)
[2024-07-10] MEDS: atorvastatin 40 mg Tablet 80 MG PO (20:37)
[2024-07-10 20:41] LABS: Glucose Point of Care 185 mg/dL (70-110)
[2024-07-11] VITALS (12 sets, daily range): BP systolic 109–163; BP diastolic 56–76; PULSE 64–75; RESP 13–23; TEMP 36.6–36.8; O2SAT 91–97
--- NOTE | 2024-07-11 | SC_ITS ---
WS: [id number] C-arm [place] for CVA 97156 REASON FOR EXAM: DIALYSIS CATH FINDINGS: There is been placement of a dual-lumen dialysis catheter from the right internal jugular approach. T he tip of the catheter is at the cavoatrial junction in proper position for use. There is a slight kink in the apex of the curve at the jugular vein entry site. SC/C-arm FL for CVA 58061 IMPRESSION: Right IJ dialysis catheter as above.
[2024-07-11 05:38] LABS: Basophils % 0.6 %; Eosinophils % 0.4 %; Lymphocytes # 1.1 10^3/uL (0.8-4.8); Lymphocytes % 15.7 %; Mean Corpuscular HGB Conc 31.2 g/dL (30-55); Mean Corpuscular Volume 86.5 fl (82-101); Mean Platelet Volume 10.6 fL (7.4-10.4); Monocytes # 0.7 10^3/uL (0.2-0.9); Monocytes % 9.4 %; Neutrophils # 5.32 10^3/uL (1.8-7.7); Neutrophils % 73.6 %; Nucleated Red Blood Cells % 0 %; Platelet Count 245 10^3/cmm (157-399); Red Blood Count 2.89 10^6/uL (3.85-5.65); Red Cell Distribution Width 14.5 % (12.1-15.1); White Blood Count 7.22 10^3/uL (3.29-11.43)
[2024-07-11 06:06] LABS: Alanine Aminotransferase 12 U/L (0-41); Albumin Level 2.9 g/dL (3.5-5.2); Alkaline Phosphatase 121 U/L (40-130); Anion Gap 16.7 (5-19); Aspartate Amino Transferase 11 U/L (0-40); Blood Urea Nitrogen 65 mg/dL (8-23); Calcium 8.4 mg/dL (8.5-10.5); Carbon Dioxide 23 mmol/L (22-29); Chloride 104 mmol/L (98-107); Creatinine Clr Calc Pharmacy 20.7532; Globulin 2.7 g/dL (1.3-4.6); Glomerular Filtration Rate 13.7 mL/min (90-130); Glucose 218 mg/dL (65-115); Magnesium 1.9 mg/dL (1.7-2.3); Osmolality Calculated 313 mOsm/kg (285-295); Phosphorus 3.7 mg/dL (2.5-4.5); Potassium 4.7 mmol/L (3.5-5.1); Sodium 139 mmol/L (136-145); Total Bilirubin 0.2 mg/dL (0.15-1.2); Total Protein 5.6 g/dL (6.6-8.7)
[2024-07-11 06:17] LABS: Glucose Point of Care 230 mg/dL (70-110)
--- NOTE | 2024-07-11 07:24 | PM.PN ---
Subjective Subjective: improved breathing. dec sob and edema. no n/v/f/c/rudolph/d. he was weak and tired after dialysis yesterday Medications: Reviewed: Yes Medication Review Details: Current Medications Acetaminophen (Acetaminophen 325 Mg Tablet) 650 mg PO Q6H PRN PRN Reason: MILD PAIN Last Admin: 07/09/24 20:50 Dose: 650 mg Acetaminophen (Acetaminophen 500 Mg Tablet) 500 mg PO Q4H PRN PRN Reason: fever Last Admin: 07/10/24 15:11 Dose: 500 mg Albuterol/Ipratropium (Ipratropium-Albuterol 3 Ml Neb) 3 ml INHALATION Q6H PRN PRN Reason: SHORTNESS OF BREATH Amlodipine Besylate (Amlodipine 5 Mg Tablet) 5 mg PO BID [facility] Last Admin: 07/10/24 17:46 Dose: 5 mg Aspirin (Aspirin 81 Mg Ec Tablet) 81 mg PO DAILY [facility] Last Admin: 07/10/24 08:48 Dose: 81 mg Atorvastatin Calcium (Atorvastatin 40 Mg Tablet) 80 mg PO BEDTIME [facility] Last Admin: 07/10/24 20:37 Dose: 80 mg Atropine Sulfate (Atropine 1 Mg/Ml Sdv 1 Ml) 0.5 mg IVP PRN PRN PRN Reason: Symptomatic bradycardia Calamine (Calamine Lotion 177 Ml Btl) 1 applic TOPICAL Q4H PRN PRN Reason: ITCHING Last Admin: 07/04/24 11:39 Dose: 1 applic Clopidogrel Bisulfate (Clopidogrel 75 Mg Tablet) 75 mg PO DAILY [facility] Last Admin: 07/10/24 08:49 Dose: 75 mg Enoxaparin Sodium (Enoxaparin 30 Mg/0.3 Ml Syringe) 30 mg SUBCUT Q24H [facility] Last Admin: 07/10/24 08:49 Dose: 30 mg Ergocalciferol (Ergocalciferol (Vitamin D2) 50,000 Unit Capsule) 50,000 unit PO Q7D [facility] Last Admin: 07/08/24 10:05 Dose: 50,000 unit Glucagon (Glucagon 1 Mg/Ml Kit 1 Ml) 1 mg IM ONCE PRN; Protocol PRN Reason: Adult Acute Hypoglycemia Nursing Prot. Hydralazine HCl (Hydralazine 10 Mg Tablet) 25 mg PO TID [facility] Last Admin: 07/10/24 20:30 Dose: 25 mg Dextrose (D5w) 500 mls @ 0 mls/hr IV ONCE PRN; Protocol PRN Reason: Adult Acute Hypoglycemia Prot Dextrose (D10w) 125 mls @ 750 mls/hr IV PRN PRN; Protocol PRN Reason: Adult Acute Hypoglycemia Nursing Protocol Dextrose (D10w) 250 mls @ 1,000 mls/hr IV PRN PRN; Protocol PRN Reason: Adult Acute Hypoglycemia Nursing Protocol Insulin Human Lispro (Insulin Lispro 100 Unit/1 Ml) 0 unit SUBCUT WM&BEDTIME [facility]; Protocol Last Admin: 07/10/24 20:37 Dose: Not Given Metoprolol Tartrate (Metoprolol Tartrate 50 Mg Tablet) 100 mg PO BID@0900,2100 [facility] Last Admin: 07/10/24 20:30 Dose: 100 mg Morphine Sulfate (Morphine 4 Mg/Ml Sdv 1 Ml) 2 mg IVP Q6H PRN PRN Reason: SEVERE PAIN Last Admin: 07/10/24 20:28 Dose: 2 mg Naloxone HCl (Naloxone 0.4 Mg/Ml Sdv) 0.1 mg IVP Q2M PRN PRN Reason: RESPIRATORY RATE < 8/MIN Nitroglycerin (Nitroglycerin 0.4 Mg Sublingual Tablet) 0.4 mg SUBLINGUAL Q5M PRN PRN Reason: CHEST PAIN Last Admin: 07/08/24 17:44 Dose: 0.4 mg Ondansetron HCl (Ondansetron 2 Mg/Ml Sdv 2 Ml) 4 mg IVP Q6H PRN PRN Reason: NAUSEA AND VOMITING Last Admin: 07/10/24 20:29 Dose: 4 mg Senna/Docusate Sodium (Sennosides-Docusate Tablet) 1 tab PO DAILY [facility] Last Admin: 07/10/24 08:49 Dose: 1 tab Triamcinolone Acetonide (Triamcinolone 0.1% Cream 15 Gm) 1 applic TOPICAL BID PRN PRN Reason: skin rash Vitals/I&O/Wt Last Vital Signs Temp 97.8 F 07/11/24 04:00 Pulse 73 07/11/24 06:00 Resp 20 H 07/11/24 04:00 BP 163/75 07/11/24 04:00 Pulse Ox 94 07/11/24 04:00 O2 Del Method Room Air 07/10/24 15:58 O2 Flow Rate 2 07/05/24 03:25 FiO2 50 07/02/24 00:00 07/10/24 07/11/24 07/11/24 22:59 06:59 14:59 Intake Total 680 / 1900 Balance 680 / -1400 Weight last 48 hrs Weight 107.411 kg Weight 107.6 kg Weight 109.089 kg Physical Exam Narrative: comfortable in bed, resp status improving VS noted heent- nc/at neck supple, no jvp lungs dull bases b/l heart reg, + s1, s2 abd soft, nt, nd, + bs left Femoral dialysis catheter ext + b/l 1 + leg edema neuro- a,a,o x 3, from x4, no asterexis Data 07/11/24 05:10 07/11/24 05:10 Micro: Microbiology 07/03/24 14:00 Gram Stain - Final Pleural Fluid Anaerobic Culture - Final Body Fluid Culture - Final A&P Assessment and plan (1) Acute kidney injury superimposed on CKD: 64-year-old male with hypertension diabetes CHF, chronic kidney disease stage III baseline creatinine in the 2 range, presented with REGINO ST elevation [place] 1. Acute on chronic kidney disease stage IIIb: Baseline creatinine 1.7 mg/dl in August 2023. He presented w/ REGINO. He had many contrast studies and AMI - recommendations feels better after HD yesterday -agree w/ permacath and then monitor for renal recovery- may take time I agree w/ planning for outpatient HD with diagnosis of REGINO hopefully he will have renal recovery as an outpt plan HD tomorrow -Renal ultrasound thickened and lobulated contour with chronic outlet obstruction with concern for mass versus clot in the bladder. Need urology referral as outpatient. -UA with 4+ protein, nephrotic range proteinuria-M ACR 2. Nephrotic range proteinuria: Likely from diabetic nephropathy., Refer to nephrology as outpatient for further workup including renal biopsy as outpatient. all serologies negative. SIFE poorly defined M spike- but normal free lambda: kappa ratio. can repeat SIFE in 3-6 months if does not have renal recovery, would consider outpt renal biopsy 3. STEMI, status post left heart cath, ejection fraction 35 to 40% 4. Bilateral pleural effusions, status post thoracentesis- q if he needs more as he has effusions 5. Anemia, Tsat 20%, monitor on ELROY 6. Renal bone metabolism , repleting vitamin D, added Phos binder seen and examined using AV equipment and the aid of a nurse he consents to telehealth and HD as needed Plan see above Attestations Medical Necessity Statement*: REGINO on CKD, AMI Time Spent in Patient Care: 16 - 35 minutes (>than 50% of time spent in counselling and/or direct pt care on unit). Coding Level of Care Code Acute Code for [facility] Diagnoses Acute kidney injury superimposed on CKD N17.9; N18.9
[2024-07-11] MEDS: hyDRALAzine 10 mg Tablet 25 MG PO (07:59)
[2024-07-11] MEDS: sennosides-docusate Tablet 1 TAB PO (07:59)
[2024-07-11] MEDS: amlodipine 5 mg Tablet PO ×2 (08:00→17:05)
[2024-07-11] MEDS: insulin lispro 100 unit/1 mL SUBCUT ×2 (08:00→17:05)
[2024-07-11] MEDS: metoprolol tartrate 50 mg Tablet 100 MG PO (08:00)
[2024-07-11] MEDS: aspirin 81 mg EC Tablet PO (08:00)
--- NOTE | 2024-07-11 09:24 | W.PM.OPSUD ---
Surgery/Procedure H&P Update DATE OF PROCEDURE: July 11, 2024 DATE H&P PERFORMED: 09/08/23 H&P UPDATE INFORMATION: I have reviewed H&P completed within last 30 days, I have examined patient prior to procedure and No changes to prior documentation PLANNED PROCEDURE: Operation Date: 06/29/24 19:00 Proposed Procedures p Percutaneous Coronary Intervention(Not Applicable) - Washington Tilley M.D Operation Date: 06/29/24 20:30 Proposed Procedures p Cardiac Catheterization(Not Applicable) - [place] Tilley M.D Operation Date: 07/11/24 11:30 Proposed Procedures p Dialysis Catheter Insertion-Tunneled Dialysis Catheter(Not Applicable) - Ezekiel Simms MD
--- NOTE | 2024-07-11 10:01 | PC.NURSE ---
This nurse gave report to TRACI Bhatti in Pre Op at 958.
--- NOTE | 2024-07-11 10:17 | XRR_ITS ---
PROCEDURE INFORMATION: Exam: XR Chest Exam date and time: 07/11/2024 1:42 PM Age: 64 years old Clinical indication: Condition or disease; Lung condition and disease; Pleural effusion; Other: Not specified; Prior surgery; Surgery date: 6+ months; Surgery type: Dialysis cath cardiac stents; Additional info: Pleural effusion, pnd TECHNIQUE: Imaging protocol: Radiologic exam of the chest. Views: 2 views. COMPARISON: CR (CHEST, ) 07/06/2024 7:39 PM FINDINGS: Tubes, catheters and devices: Dialysis catheter enters from the right and terminates near the atriocaval junction. Lungs: Bilateral pleural effusions with bibasilar pulmonary infiltrates. Pleural spaces: See Lungs finding. Heart/Mediastinum: Mild vascular prominence suggest cardiac decompensation. Mild cardiomegaly. Bones/joints: Unremarkable. XR/XR chest 2V* [id number] IMPRESSION: 2. No significant interval change. Stable opacities in each lower lobe, effusions plus infiltrates. CHF versus pneumonia.
--- NOTE | 2024-07-11 10:28 | P.ANESASSM_ITS ---
Pre-Anesthetic Assessment Height/Weight: Height 5 ft 9 in Weight 236 lb 12.8 oz Temp Pulse Resp BP Pulse Ox O2 Del Method O2 Flow Rate 98.2 F 71 16 135/63 95 Room Air 1.5 07/11/24 08:00 07/11/24 08:08 07/11/24 08:08 07/11/24 08:00 07/11/24 08:08 07/11/24 08:08 07/11/24 08:00 FiO2 50 07/02/24 00:00 Preop Diagnosis: CKD Operation Date: 06/29/24 19:00 Proposed Procedures p Percutaneous Coronary Intervention(Not Applicable) - [place] Tilley M.D Operation Date: 06/29/24 20:30 Proposed Procedures p Cardiac Catheterization(Not Applicable) - [place] Tilley M.D Operation Date: 07/11/24 11:30 Proposed Procedures p Dialysis Catheter Insertion-Tunneled Dialysis Catheter(Not Applicable) - Ezekiel Simms MD Was Beta Malvin taken within 24 hours: Yes Was Clonidine taken within 24 hours: N/A Last intake: Intake Last Liquid Date 07/10/24 Last Liquid Time 21:00 Last Solid Date 07/10/24 Last Solid Time 21:00 Social No alcohol and No tobacco Exam alert, oriented x 3, clear to auscultation bilaterally and regular rate & rhythm Airway Submandibular: within normal limits Cervical ROM: within normal limits Mallampati: Class II Dentition: full Comments: Comments: missing teeth, denies any loose Anesthetic Plan ASA status: 4 Anesthesia: MAC Other: Patient initially admitted 06/29/2024 for STEMI S/p stent placement Patient also had a code stroke called on him during hospitalization CT angiogram head and neck revealed no large vessel occlusion but there was report of intracranial atherosclerosis notable for severe stenosis of an anterior right-sided MCA M2 branch, as described. eliquis and plavix held today Echo 06/30/2024 showing EF 35 to 40% with global hypokinesis Patient has acute kidney injury superimposed on CKD Dialysis yesterday Creatinine 4.4, BUN 65. Electrolytes stable. Hemoglobin 7.8 this a.m. EKG sinus rhythm Plan for MAC anesthetic Medications/Allergies Home Medications Medication Instructions Recorded Confirmed Last Taken Type aspirin 81 mg tablet,delayed 81 mg PO DAILY #60 tabs 06/22/22 06/30/24 06/29/24 Rx release flash glucose scanning reader #1 ea 09/07/23 06/30/24 Unknown Rx (FreeStyle Igor 14 Day [place]) flash glucose sensor (FreeStyle #1 ea 09/07/23 06/30/24 Unknown Rx Igor 14 Day Sensor kit) acetaminophen 500 mg tablet 1,000 mg PO Q6H PRN Pain 09/08/23 06/30/24 Unknown History empagliflozin 25 mg tablet 25 mg PO DAILY #30 tabs 09/13/23 06/30/24 Unknown Rx (Jardiance) hydralazine 50 mg tablet 50 mg PO TID #90 tabs 09/28/23 06/30/24 06/29/24 Rx clopidogrel 75 mg tablet 75 mg PO DAILY #90 tabs 11/08/23 06/30/24 06/29/24 Rx insulin glargine 100 unit/mL (3 20 unit (0.2 mL) SUBCUT BID #15 mL 11/08/23 06/30/24 06/29/24 Rx mL) subcutaneous pen (Lantus Solostar U-100 Insulin) metformin 500 mg tablet 500 mg PO BID #180 tabs 11/08/23 06/30/24 Unknown Rx potassium chloride 20 mEq 20 meq PO DAILY #90 tabs 11/08/23 06/30/24 06/29/24 Rx tablet,extended release atorvastatin 80 mg tablet 80 mg PO BEDTIME 06/30/24 06/30/24 06/29/24 History insulin glargine 100 unit/mL (3 25 unit SUBCUT BEDTIME 06/30/24 06/30/24 06/28/24 History mL) subcutaneous pen (Lantus Solostar U-100 Insulin) isosorbide mononitrate 30 mg 60 mg PO DAILY 06/30/24 06/30/24 06/29/24 History tablet,extended release 24 hr metoprolol succinate 25 mg 25 mg PO DAILY 06/30/24 06/30/24 06/29/24 History tablet,extended release 24 hr torsemide 20 mg tablet 20 mg PO BID 06/30/24 06/30/24 06/29/24 History Allergies Allergy/AdvReac Type Severity Reaction Status Date / Time No Known Allergies Allergy Verified 11/08/23 09:21 Current Medications Generic Name Dose Route Start Last Admin Trade Name Freq PRN Reason Stop Dose Admin Acetaminophen 650 mg 06/29/24 21:08 07/09/24 20:50 Acetaminophen 325 Mg Tablet PO 650 mg Q6H PRN Administration MILD PAIN Acetaminophen 500 mg 06/29/24 21:14 07/10/24 15:11 Acetaminophen 500 Mg Tablet PO 500 mg Q4H PRN Administration fever Amlodipine Besylate 5 mg 07/06/24 18:00 07/11/24 08:00 Amlodipine 5 Mg Tablet PO 5 mg BID ESTRELLA Administration Aspirin 81 mg 06/30/24 09:00 07/11/24 08:00 Aspirin 81 Mg Ec Tablet PO 81 mg DAILY ESTRELLA Administration Atorvastatin Calcium 80 mg 06/30/24 21:00 07/10/24 20:37 Atorvastatin 40 Mg Tablet PO 80 mg BEDTIME [facility] Administration Calamine 1 applic 07/03/24 00:41 07/04/24 11:39 Calamine Lotion 177 Ml Btl TOPICAL 1 applic Q4H PRN Administration ITCHING Clopidogrel Bisulfate 75 mg 06/30/24 09:00 07/10/24 08:49 Clopidogrel 75 Mg Tablet PO 75 mg DAILY [facility] Administration Enoxaparin Sodium 30 mg 07/02/24 09:00 07/11/24 08:00 Enoxaparin 30 Mg/0.3 Ml Syringe SUBCUT Not Given Q24H [facility] Ergocalciferol 50,000 unit 07/01/24 09:45 07/08/24 10:05 Ergocalciferol (Vitamin D2) 50,000 Unit Capsule PO 50,000 unit Q7D [facility] Administration Hydralazine HCl 25 mg 07/08/24 15:00 07/11/24 07:59 Hydralazine 10 Mg Tablet PO 25 mg TID [facility] Administration Insulin Human Lispro 0 unit 06/30/24 08:00 07/11/24 08:00 Insulin Lispro 100 Unit/1 Ml SUBCUT 8 unit WM&BEDTIME [facility] Administration Protocol Metoprolol Tartrate 100 mg 07/05/24 21:00 07/11/24 08:00 Metoprolol Tartrate 50 Mg Tablet PO 100 mg BID@0900,2100 [facility] Administration Morphine Sulfate 2 mg 07/06/24 18:39 07/10/24 20:28 Morphine 4 Mg/Ml Sdv 1 Ml IVP 2 mg Q6H PRN Administration SEVERE PAIN Nitroglycerin 0.4 mg 06/29/24 21:08 07/08/24 17:44 Nitroglycerin 0.4 Mg Sublingual Tablet SUBLINGUAL 0.4 mg Q5M PRN Administration CHEST PAIN Ondansetron HCl 4 mg 06/29/24 21:14 07/10/24 20:29 Ondansetron 2 Mg/Ml Sdv 2 Ml IVP 4 mg Q6H PRN Administration NAUSEA AND VOMITING Senna/Docusate Sodium 1 tab 06/30/24 09:00 07/11/24 07:59 Sennosides-Docusate Tablet PO 1 tab DAILY [facility] Administration Additional Medication Information Current Medications Acetaminophen (Acetaminophen 325 Mg Tablet) 650 mg PO Q6H PRN PRN Reason: MILD PAIN Last Admin: 07/09/24 20:50 Dose: 650 mg Acetaminophen (Acetaminophen 500 Mg Tablet) 500 mg PO Q4H PRN PRN Reason: fever Last Admin: 07/10/24 15:11 Dose: 500 mg Albuterol/Ipratropium (Ipratropium-Albuterol 3 Ml Neb) 3 ml INHALATION Q6H PRN PRN Reason: SHORTNESS OF BREATH Amlodipine Besylate (Amlodipine 5 Mg Tablet) 5 mg PO BID [facility] Last Admin: 07/10/24 17:46 Dose: 5 mg Aspirin (Aspirin 81 Mg Ec Tablet) 81 mg PO DAILY [facility] Last Admin: 07/10/24 08:48 Dose: 81 mg Atorvastatin Calcium (Atorvastatin 40 Mg Tablet) 80 mg PO BEDTIME [facility] Last Admin: 07/10/24 20:37 Dose: 80 mg Atropine Sulfate (Atropine 1 Mg/Ml Sdv 1 Ml) 0.5 mg IVP PRN PRN PRN Reason: Symptomatic bradycardia Calamine (Calamine Lotion 177 Ml Btl) 1 applic TOPICAL Q4H PRN PRN Reason: ITCHING Last Admin: 07/04/24 11:39 Dose: 1 applic Clopidogrel Bisulfate (Clopidogrel 75 Mg Tablet) 75 mg PO DAILY [facility] Last Admin: 07/10/24 08:49 Dose: 75 mg Enoxaparin Sodium (Enoxaparin 30 Mg/0.3 Ml Syringe) 30 mg SUBCUT Q24H [facility] Last Admin: 07/10/24 08:49 Dose: 30 mg Ergocalciferol (Ergocalciferol (Vitamin D2) 50,000 Unit Capsule) 50,000 unit PO Q7D [facility] Last Admin: 07/08/24 10:05 Dose: 50,000 unit Glucagon (Glucagon 1 Mg/Ml Kit 1 Ml) 1 mg IM ONCE PRN; Protocol PRN Reason: Adult Acute Hypoglycemia Nursing Prot. Hydralazine HCl (Hydralazine 10 Mg Tablet) 25 mg PO TID [facility] Last Admin: 07/10/24 20:30 Dose: 25 mg Dextrose (D5w) 500 mls @ 0 mls/hr IV ONCE PRN; Protocol PRN Reason: Adult Acute Hypoglycemia Prot Dextrose (D10w) 125 mls @ 750 mls/hr IV PRN PRN; Protocol PRN Reason: Adult Acute Hypoglycemia Nursing Protocol Dextrose (D10w) 250 mls @ 1,000 mls/hr IV PRN PRN; Protocol PRN Reason: Adult Acute Hypoglycemia Nursing Protocol Insulin Human Lispro (Insulin Lispro 100 Unit/1 Ml) 0 unit SUBCUT WM&BEDTIME [facility]; Protocol Last Admin: 07/10/24 20:37 Dose: Not Given Metoprolol Tartrate (Metoprolol Tartrate 50 Mg Tablet) 100 mg PO BID@0900,2100 [facility] Last Admin: 07/10/24 20:30 Dose: 100 mg Morphine Sulfate (Morphine 4 Mg/Ml Sdv 1 Ml) 2 mg IVP Q6H PRN PRN Reason: SEVERE PAIN Last Admin: 07/10/24 20:28 Dose: 2 mg Naloxone HCl (Naloxone 0.4 Mg/Ml Sdv) 0.1 mg IVP Q2M PRN PRN Reason: RESPIRATORY RATE < 8/MIN Nitroglycerin (Nitroglycerin 0.4 Mg Sublingual Tablet) 0.4 mg SUBLINGUAL Q5M PRN PRN Reason: CHEST PAIN Last Admin: 07/08/24 17:44 Dose: 0.4 mg Ondansetron HCl (Ondansetron 2 Mg/Ml Sdv 2 Ml) 4 mg IVP Q6H PRN PRN Reason: NAUSEA AND VOMITING Last Admin: 07/10/24 20:29 Dose: 4 mg Senna/Docusate Sodium (Sennosides-Docusate Tablet) 1 tab PO DAILY [facility] Last Admin: 07/10/24 08:49 Dose: 1 tab Triamcinolone Acetonide (Triamcinolone 0.1% Cream 15 Gm) 1 applic TOPICAL BID PRN PRN Reason: skin rash [facility] Anesthesia Medical History Rib pain on right side Large pleural effusion Hypertension Diabetes Abnormal nuclear stress test Hyperglycemia Hypertensive urgency Angina at rest Diabetic neuropathy, painful Chest pain Surgical History History of surgical removal of meniscus of knee Family History Other CAD (coronary artery disease) Diabetes Social History Smoking and tobacco/nicotine status: former use of tobacco/nicotine Alcohol intake: former Substance/Drug Use: never Data Anesthesia 07/11/24 05:10 07/11/24 05:10 Short CBC 07/10/24 07/11/24 Range/Units 05:19 05:10 WBC 5.63 7.22 (3.29-11.43) 10^3/uL Hgb 8.10 L 7.80 L (11.27-16.99) g/dL Hct 25.7 L 25.0 L (37-53) % MCV 87.7 86.5 (82-101) fl Plt Count 244 245 (157-399) 10^3/cmm Neut % (Auto) 67.0 73.6 % Neut # (Auto) 3.77 5.32 (1.8-7.7) 10^3/uL BMP 07/10/24 07/11/24 05:19 05:10 Sodium 135 L 139 Potassium 4.8 4.7 Chloride 101 104 Carbon Dioxide 24 23 BUN 77 H 65 H Creatinine 5.3 H 4.4 H Glucose 192 H 218 H Calcium 8.8 8.4 L Liver Function 07/10/24 07/11/24 Range/Units 05:19 05:10 Total Bilirubin 0.2 0.2 (0.15-1.2) mg/dL AST 13 11 (0-40) U/L ALT 12 12 (0-41) U/L Alkaline Phosphatase 114 121 (40-130) U/L Albumin 2.8 L 2.9 L (3.5-5.2) g/dL Microbiology 07/03/24 14:00 Gram Stain - Final Pleural Fluid Anaerobic Culture - Final Body Fluid Culture - Final Cardiac Studies: 2 Echocardiogram 07/01/24 Sestamibi Stress Test (Cardiology) 06/20
[2024-07-11] MEDS: sodium chloride 0.9% 1,000 ML 30 ML IV (10:44)
[2024-07-11 10:49] LABS: Glucose Point of Care 92 mg/dL (70-110)
[2024-07-11] MEDS: ceFAZolin 2,000 mg SDV 2000 MG IVP (11:23)
--- NOTE | 2024-07-11 11:23 | P.PN_ITS ---
Subjective 2 Subjective: Patient seen this morning. Will be going for dialysis catheter placement today. Vitals/I&O/Wt Last Vital Signs Temp 98.2 F 07/11/24 08:00 Pulse 71 07/11/24 08:08 Resp 16 07/11/24 08:08 BP 135/63 07/11/24 08:00 Pulse Ox 95 07/11/24 08:08 O2 Del Method Room Air 07/11/24 08:08 O2 Flow Rate 1.5 07/11/24 08:00 FiO2 50 07/02/24 00:00 07/10/24 07/11/24 07/11/24 22:59 06:59 14:59 Intake Total 680 / 1900 Balance 680 / -1400 Weight last 48 hrs Weight 107.411 kg Weight 107.6 kg Weight 109.089 kg Physical Exam 2 Narrative: General: Awake alert and oriented x 3. HEENT: PERRLA, pupils bilaterally equal and reactive, pallors not present Chest: Reduced bilateral air entry, however generally clear to auscultation. CVS: S1-S2 regular, no murmurs, no tachycardia, no gallops, no rubs Abdomen: Soft, nontender, no organomegaly, bowel sounds present Neuro: Nonfocal Data 07/11/24 05:10 07/11/24 05:10 Micro: Microbiology 07/03/24 14:00 Gram Stain - Final Pleural Fluid Anaerobic Culture - Final Body Fluid Culture - Final A&P Assessment and plan (1) CHF (congestive heart failure): Qualifiers: Heart failure type: combined systolic and diastolic Heart failure chronicity: acute on chronic Qualified Code(s): I50.43 - Acute on chronic combined systolic (congestive) and diastolic (congestive) heart failure (2) Poor compliance: (3) Acute on chronic congestive heart failure: Qualifiers: Heart failure type: systolic Qualified Code(s): I50.23 - Acute on chronic systolic (congestive) heart failure (4) STEMI (ST elevation myocardial infarction): Qualifiers: Involved coronary artery: LAD coronary artery Qualified Code(s): I21.02 - ST elevation (STEMI) myocardial infarction involving left anterior descending coronary artery (5) Hyperlipidemia: Qualifiers: Hyperlipidemia type: mixed hyperlipidemia Qualified Code(s): E78.2 - Mixed hyperlipidemia (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: (7) REGINO (acute kidney injury): (8) Sciatica: (9) Neuropathy, diabetic: Plan STEMI Status post LAD 2 stents Continue dual antiplatelet therapy along statins Patient has been weaned off Levophed Echo report to be followed Acute systolic CHF exacerbation Currently on IV diuretic regimen along BiPAP Hansen catheter refused by the patient, stating that he would like to use urinal Type II diabetic with complications related to neuropathy Continue insulin sliding scale Cardiac consistent carb diet Pulm edema: I have requested BiPAP overnight patient is agreeable DVT prophylaxis: Heparin Will follow along cardiology Full code 06/30/2024 -Patient is status post 2 stents ? Contrast-induced nephropathy versus combination of cardiorenal plus contrast- induced worsening: Creatinine 4.0. ? Consult nephrology. Await recommendations ? Continue insulin sliding scale ? Continue on Lasix 20 IV twice daily patient is fluid overload intermittently diuresis. ? Continue aspirin Plavix atorvastatin ? Medicine will continue to follow along. ? Patient has refused Hansen catheter. 07/01/2024 -Continue Lasix drip at this time. ? Urine output 300 cc overnight. ? Creatinine is worsening. Nephrology following. ? Continue aspirin Plavix atorvastatin ? CT chest abdomen pelvis pending at this time to evaluate for granuloma and because of renal failure ? Renal ultrasound also pending at this time ? Medicine will continue to follow July 02, 2023 Creatinine trending up to 6, remains oliguric. Starting dialysis today. Recommend consulting surgery for placement of HD catheter. Thoracentesis would likely help benefit the patient. Patient states he has previously had thoracentesis in August 2023. He states he was told the He states he has had multiple admissions in the past year related to heart failure however has not needed thoracentesis since August. Thoracentesis and pleural fluid analysis ordered. Diuresis per primary cardiology team July 03, 2024. 64-year-old male with past medical history of nonischemic cardiomyopathy diabetes brought to the emergency room on June 29, 2024 with a STEMI. Patient underwent coronary angiogram underwent revascularization with 2 stents. Shortly after being brought back to the ICU he started to complain of chest discomfort again and underwent a repeat coronary angiogram. This showed patent prior stents without any changes. Hospital course has been notable for acute on chronic systolic CHF exacerbation for which patient was on IV diuresis, development of acute kidney injury asked CKD for which she has been started on hemodialysis. Imaging showed echogenic filling defect/mass in the lumen of the urinary bladder which may be sales training representative of a mass or neoplasm, he will need urology evaluation shortly after discharge. Unfortunately we do not have urology services available inpatient. He has bilateral pleural effusions, status post thoracentesis on the right side today. There was concern for potential LV thrombus earlier this admission which has been ruled out. Patient is currently on aspirin Plavix atorvastatin. His breathing is improved since initiation of hemodialysis. Also underwent thoracentesis today which has helped. he will be receiving hemodialysis postthoracentesis today. july 04, 2024: Clinically better today. off supplemental 02. Monitoring renal function for potential recovery. PT/OT eval. July 05, 2024 Remains off supplemental oxygen. Creatinine at 6. Awaiting renal recovery to decide regarding long-term dialysis. Did well with physical therapy. QuantiFERON TB screen negative. Mycobacterial smear and culture awaited from pleural fluid. No WBCs, no growth on culture. Diuresis per cardiology and nephrology. July 07, 2024 : On RA today, no acute interim events. Cr better, urine putput > 900cc. Plan to monitor renal function over the weekend off dialysis to decide regarding fdc HD vs discontinuation of further sessions. SBP trending to HTN now, resume home med hydralazine , lower dose of 10TID for now , if tolerated, then to uptitrate Januray 2023 Patient is more dyspneic today. Appears to be tiring out in conversation. This is different from previous exams. Increased lower extremity swelling today. Creatinine is at 5.0. Urine output at 2600 cc. Discussed case with nephrology. Increase Lasix to 40 mg IV every 12 hours and continue to monitor closely. If renal function starts to deteriorate with increased diuresis or does not have significant response may need to consider long-term dialysis for him. Blood pressure continuing to be ranging 1 50-1 60 systolic. Recommend to increase hydralazine to 25 mg 3 times daily today. 07/09/2024 Sitting up on edge of bed. States he feels better. Patient upset because he thought he is going to be going home on dialysis however nephrology was planning to remove dialysis catheter today. Discussed with him that his creatinine is improving and urine output is improving as well. He has not had another dialysis session since 07/04. Has been chest pain-free. ?will discuss with cardiology and nephroloy to coordinate - plan for dc home in possibly 48 hours. 07/10/2024 -Patient undergoing dialysis today. Creatinine has worsened. ? Plan to place permanent dialysis catheter in AM. Consulted general surgery. Patient to be n.p.o. at midnight. ? Discussed with cardiology as well. Patient will be discharged once chair time is set up and dialysis catheter is placed tomorrow. Defer to primary team regarding final decision. ? Medicine will continue to follow. ? Patient may have issues with transportation going forward. restuarant crew worker working on posthospital follow-up and to help with that. 07/11/2024 -Transportation issues have been addressed by social services aide. Patient will have family members to drive him to dialysis into his appointments. ? Patient underwent dialysis yesterday however felt weak after. Going for permacath today. He may be able to discharge home after permacath placement. - -Renal ultrasound thickened and lobulated contour with chronic outlet obstruction with concern for mass versus clot in the bladder. Will need outpatient urology referral -Discussed with nephrology over the phone. They are ok with discharging the patient. Attestations 2 Medical Necessity Statement*: Defer to primary team. Diagnoses Acute on chronic combined systolic and diastolic congestive heart failure I50.43 Heart failure type: combined systolic and diastolic Heart failure chronicity: acute on chronic Poor compliance Z91.199 Acute on chronic systolic congestive heart failure I50.23 Heart failure type: systolic ST elevation myocardial infarction involving left anterior descending (LAD) coronary artery I21.02 Involved coronary artery: LAD coronary artery Mixed hyperlipidemia E78.2 Hyperlipidemia type: mixed hyperlipidemia 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
[2024-07-11] MEDS: lidocaine-epi 1% 20 mL INJ INJECTION (12:10)
[2024-07-11] MEDS: BUPivacaine 0.25% INJ 10 mL INJECTION (12:10)
[2024-07-11] MEDS: heparin, porcine 1,000 unit/mL INJ 10 mL 10000 UNIT IRRIGATION (12:12)
--- NOTE | 2024-07-11 12:19 | PM.OP ---
Operative Report Date of procedure: July 11, 2024 Pre-op diagnosis: acute renal failure Post-op diagnosis: same Post-op findings: 23cm tunneled dialysis catheter placed on right chest. Right internal jugular vein accessed. Removed left groin temporary dialysis catheter. Procedure done: Tunneled dialysis catheter placement. Removal of temporary dialysis catheter. Implants: 23cm tunneled dialysis catheter Specimens removed/disposition: NA Pathology: none sent Surgeon: Ezekiel Simms MD Application Helper: KELSEY Anesthesia: MAC Estimated blood loss (mL): 20 Complications: NA Findings: 23cm tunneled dialysis catheter placed on right chest. Right internal jugular vein accessed. Tip of catheter at atriocaval junction confirmed with intraoperative fluoroscopy. Condition: stable Disposition: same day Brief History: 64 yo male who presented with acute renal failure. Temporary dialysis catheter had been placed in ICU. Nephrology requested a tunneled dialysis catheter. Discussed risks and benefits and patient agreed to proceed with tunneled dialysis catheter placement and temporary dialysis catheter removal. Procedure: Patient was brought into the operating room and a timeout was carried out. Procedure was done under MAC. Patient was placed supine with the arms tucked and in Trendelenburg. Patient was prepped and draped in the usual sterile fashion. Using ultrasound guidance the right internal jugular vein was accessed. A guidewire was then placed down to the atriocaval junction using fluoroscopy. The finder needle was removed and the guidewire was secured. I then turned my attention to creating a pocket over the right chest. Make sure to locally infiltrated using plain lidocaine and bupivacaine at the site of the pocket and throughout the tunnel site. I confirmed adequate hemostasis at the pocket. I then proceeded to place the tunneled dialysis catheter. I tunneled the catheter from the chest to the neck at the site where I accessed the internal jugular vein. At this point, I used a dilator to dilate the tract into the internal jugular vein using fluoroscopy. I removed the guidewire and proceeded to thread the central venous catheter through the introducer. In the process, I removed the sheath as a completely pushed the catheter into the internal jugular vein. I then confirmed adequate placement of the catheter by performing intraoperative interpretation of fluoroscopy. The tip of the catheter was confirmed to be placed in the atriocaval junction. There were no kinks noted throughout the trajectory of the catheter. I then proceeded to test the tunneled dialysis catheter and was satisfied with its functionality. I proceeded to flush the catheter without any issues. I then hep-locked the dialysis catehter. Skin was closed using deep dermal 3-0 Vicryl, subcuticular 4-0 Monocryl, and Dermabond. I then proceeded to remove the left groin temporary dialysis catheter. Pressure was held for 5 minutes. Confirmed adequate hemostasis at the left groin and placed a gauze dressing. Patient was then transferred to PACU without any complications.
--- NOTE | 2024-07-11 12:45 | PC.NURSE ---
Addendum entered by Erica Tracy LPN 07/11/24 13:05: Pt transferred back up to med surg floor, room 256-2, via [email or web address]. Accompanied by TRACI Arriaga at 1300. This nurse assumed care of pt again at this time. Original Note: This nurse took report from TRACI Arriaga in PACU at 1244.
--- NOTE | 2024-07-11 12:47 | ANE.PACU2 ---
Inpatient post-anesthesia follow up: Airway intact: Yes Vital signs: Temperature 97.8 F Pulse Rate 75 Respiratory Rate 18 Blood Pressure 127/69 Pulse Oximetry 95 Oxygen Delivery Me thod [ Nasal Cannula Current Rate & Del ammon] Oxygen Delivery Me thod Nasal Cannula Oxygen Flow Rate [ Current Rate 2 & Delivery] Oxygen Flow Rate 2 Fraction of Inspir ed Oxygen 50 Hydration adequate: Yes Nausea and vomiting: No Pain level: 1 Mental status: Baseline
--- NOTE | 2024-07-11 14:43 | P.DS_ITS ---
Discharge Providers Date of Admission: 06/29/24 20:19 Date of Discharge: July 11, 2024 Attending Provider at Admission: Washington Tilley M.D Attending Provider at Discharge: Yomaira Sabillon M.D Consults: Dr Smith, Nephrology Hospitalist service Primary Care Provider: Ezio Leahy Diagnoses at Discharge Discharge Diagnosis (1) CHF (congestive heart failure): Status: Acute Qualifiers: Heart failure chronicity: acute on chronic Heart failure type: combined systolic and diastolic Qualified Code(s): I50.43 - Acute on chronic combined systolic (congestive) and diastolic (congestive) heart failure (2) Poor compliance: Status: Acute (3) Acute on chronic congestive heart failure: Status: Acute Qualifiers: Heart failure type: systolic Qualified Code(s): I50.23 - Acute on chronic systolic (congestive) heart failure (4) STEMI (ST elevation myocardial infarction): Status: Acute Qualifiers: Involved coronary artery: LAD coronary artery Qualified Code(s): I21.02 - ST elevation (STEMI) myocardial infarction involving left anterior descending coronary artery (5) Hyperlipidemia: Status: Acute Qualifiers: Hyperlipidemia type: mixed hyperlipidemia Qualified Code(s): E78.2 - Mixed hyperlipidemia (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: Status: Acute (7) REGINO (acute kidney injury): Status: Acute (8) Sciatica: Status: Acute (9) Neuropathy, diabetic: Status: Acute Reason for Visit Reason for Visit: STEMI Brief History: Cam Trinh is a 64 year old male past medical history of nonischemic cardiomyopathy, diabetes, noncompliance who was brought by EMS with few hours of chest discomfort and shortness of breath. Was found to be hypoxic. EKG was concerning for borderline ST depressions in V1 through V4. STEMI alert was called. Patient emergently going for coronary angiogram with possible PCI. Hospital Course Hospital Course He was taken to the [facility] for coronary angiogram which revealed critical proximal LAD stenosis which was treated with JUAN x 2, the mid RCA was noted to have approximate 60 to 70% stenosis. Upon return to the ICU for recovery he noted chest discomfort and EKG showed ST elevation in the anterior/anterolateral leads so he was emergently returned to the [facility] for coronary angiogram which showed patent prior stents and no new changes. He required BiPAP in the ICU, Levophed infusion was weaned off. Hospital service was consulted for medical management. Echocardiogram on 06/30/2024 showed LVEF 35 to 40% moderate global hy pokinesis and possible LV thrombus. Mild mitral regurgitation and small pericardial effusion. Due to REGINO on CKD nephrology service was consulted on 06/30/2024, temporary dialysis catheter placed on 07/02/2024 for hemodialysis which he received daily until 07/06/2024. Limited echocardiogram with contrast performed on 07/01/2024 showed LVEF unchanged 35 to 40% but no LV thrombus. On 07/03/2024 he underwent right-sided thoracentesis removing 1200 mL of fluid, improving shortness of breath greatly. He remained on BiPAP overnight but by the following day did not require any supplemental oxygen. On 07/08/2024 a stroke alert was called, patient was evaluated by Dr. Marino, NIH stroke score 0, noncontrast head CT did not show acute findings, CTA of the head and neck revealed no large vessel occlusion but there was report of intracranial atherosclerosis notable for severe stenosis of an anterior right sided MCA M2 branch. Event was diagnosed as TIA as blurred vision and right sided weakness resolved, he was not a candidate for thrombolytic. Recommendations to continue Plavix aspirin and statin. He had a tunneled dialysis catheter placed today by Dr. Simms, general surgery. He has outpatient dialysis set up for days Tuesday, first dialysis session tomorrow. Hemoglobin 7.8 this morning, recommend to recheck labs and dialysis tomorrow, they can administer blood products during dialysis if necessary. Chest x-ray ordered today to evaluate orthopnea reported by the patient overnight, pleural effusions stable, no interval change. Referrals to endocrinology, nephrology, urology as well as physical therapy have been placed by the hospitalist. Of note he did have a renal ultrasound which indicated possible mass or clot in the bladder which is the reason for the urology referral. In regards to the STEMI, he has recovered well and not experienced any chest pain since the second angiogram. He should continue aspirin 81 mg daily, atorvastatin 80 mg daily, Plavix 75 mg daily, metoprolol tartrate 100 mg twice a day. For control of hypertension hydralazine 25 mg 3 times a day amlodipine 10 mg daily. Follow-up with cardiology nurse practitioner in 7 to 10 days. Follow-up labs have been ordered by the hospitalist to be completed in the next 7 days. Physical Exam Const: COMMON NORMALS: no acute distress and patient oriented x3 GENERAL APPEARANCE: cooperative and comfortable ORIENTATION/CONSCIOUSNESS: Yes awake, Yes oriented to person, Yes oriented to place and Yes oriented to time Chest: COMMONS NORMALS: normal inspection of the chest and normal palpation of entire chest wall CHEST: Yes Symmetrical chest wall rise Resp: COMMON NORMALS: normal respiratory effort, No retractions, No use of accessory muscles and clear to auscultation bilaterally EFFORT & INSPECTION: Yes symmetric chest movement AUSCULTATION: clear to auscultation bilaterally Cardio: COMMON NORMALS: regular rate, regular rhythm, S1 normal heart sound present, S2 normal heart sound present, No gallops present (Cardio), No clicks present (Cardio), No murmurs present (Cardio) and No rub (Cardio) RATE: regular rate RHYTHM: regular rhythm HEART SOUNDS: S1 normal heart sound present and S2 normal heart sound present PERIPHERAL PULSES: radial pulses present Extremity: COMMON NORMALS: no pedal edema Neuro: COMMON NORMALS: patient oriented x3 and moves all extremities SENSORIUM/ORIENTATION: Yes oriented to person, Yes oriented to place and Yes oriented to time Discharge Data Studies Completed and Pending Completed Studies During Hospitalization Category Date Time Status CT angio head neck [CT angio headneck* 94661/47078] Cat Scan 07/08/24 17:[address] chest abdomen pelvis [[place] [id number] Cat Scan 07/01/24 06:17 Completed ] Urgent CT head wo con* [id number] Stat Cat Scan 07/08/24 17:37 Completed [employer]ATOR request for service Stat Exams 06/29/24 18:59 Completed [employer] OPERATOR request for service Stat Exams 06/29/24 20:26 Completed CXRP [XR chest 1V portable [id number]] Stat Exams 07/01/24 17:22 Completed XR KUB portable [id number] Stat Exams 06/30/24 22:25 Completed XR chest 1V [id number] Urgent Exams 07/03/24 14:29 Completed XR chest 1V portable [id number] Stat Exams 06/29/24 18:59 Completed XR chest 1V portable [id number] Stat Exams 07/06/24 19:19 Completed XR chest 2V* [id number] Routine Exams 07/11/24 10:17 Completed Cytology [PTH] Routine Pth 07/02/24 14:00 Completed CV. echo complete* [id number] Routine Ultrasound 06/30/24 12:22 Completed CV. echo lmt w/w contras [id number] Routine Ultrasound 07/01/24 22:33 Completed US renal BI* [id number] Routine Ultrasound 07/01/24 19:28 Completed US thoracentesis [id number] Routine Ultrasound 07/03/24 11:29 Completed Pending at discharge Category Date Time Status Complete Blood Count w/Auto AM LABS Lab 07/12/24 04:00 Ordered Complete Blood Count w/Auto AM LABS Lab 07/12/24 04:00 Ordered Complete Blood Count w/Auto AM LABS Lab 07/13/24 04:00 Ordered Comprehensive Metabolic Panel AM LABS Lab 07/12/24 04:00 Ordered Comprehensive Metabolic Panel AM LABS Lab 07/12/24 04:00 Ordered Comprehensive Metabolic Panel AM LABS Lab 07/13/24 04:00 Ordered Magnesium AM LABS Lab 07/12/24 04:00 Ordered Magnesium AM LABS Lab 07/12/24 04:00 Ordered Magnesium AM LABS Lab 07/13/24 04:00 Ordered Mycobacteria, Culture w/Fluor Routine Lab 07/02/24 14:55 Results Phosphorus AM LABS Lab 07/12/24 04:00 Ordered Phosphorus AM LABS Lab 07/12/24 04:00 Ordered Phosphorus AM LABS Lab 07/13/24 04:00 Ordered Radiology Impressions KUB X-Ray 06/30/24 22:25 IMPRESSION: 1. Findings suggesting constipation. 2. Moderate gaseous distension of the stomach. 3. Bilateral pleural effusions. Chest/Abdomen/Pelvis CT 07/01/24 06:17 IMPRESSION: Large bilateral pleural effusions with overlying compressive atelectasis. Similar minimal interlobular septal thickening and cardiomegaly compatible with CHF. IMPRESSION: 1. Evaluation limited due to lack of IV contrast. 2. There is bilateral perinephric stranding and edema left greater than right. Punctate nonobstructing nephrolithiasis in the left kidney without evidence hydroureteronephrosis or obstructing ureteral calculi bilaterally. Findings may be compatible with sequela of medical renal disease however superimposed pyelonephritis is not entirely excluded. Recommend clinical and laboratory correlation and further evaluation with contrast enhanced CT as clinically feasible. 3. Indeterminate renal lesions as described above can be further evaluated with nonemergent CT/MRI renal mass protocol. 4. Other findings as described in the body of the report. COMMENTS: Consistent with the [employer]'s Incidental Findings Committee white paper (J Am Marty Radiol 2018): Any incidental renal lesion less than 1 cm or classified as too small to characterize, or any incidental cystic renal lesion characterized as simple-appearing, is likely benign. No follow-up imaging is recommended for these lesions per consensus recommendations based on imaging criteria. Renal Ultrasound 07/01/24 19:28 IMPRESSION: 1. Unremarkable kidneys. 2. The wall is very thick and heterogeneous with a lobulated contour compatible with chronic outlet obstruction with lack of distension, cystitis or neurogenic bladder. 3. There is an irregular echogenic filling defect or mass in the lumen of the urinary bladder may reflect a true mass/neoplasm or blood clot. Thoracentesis Ultrasound 07/03/24 11:29 IMPRESSION: Uncomplicated ultrasound-guided RIGHT thoracentesis. Portable chest is pending. Head CT 07/08/24 17:37 IMPRESSION: No acute intracranial abnormality. ASSESSMENT: ASPECTS (Jessica Stroke Program Early CT Score) is 10. ADDENDUM: 07/08/241814 Findings were discussed with MUNA Sanches at 07/08/2024 6:13 PM [employer] ST[employer]AGE SUPERINTENDENT. Head/Neck CTA 07/08/24 17:37 IMPRESSION: 1. No acute large vessel occlusion identified. 2. Intracranial atherosclerosis notable for severe stenosis of an anterior right-sided MCA M2 branch, as described. IMPRESSION: 1. No occlusion or significant stenosis. 2. Large bilateral pleural effusions again present. REFERENCES: NASCET CRITERIA. The degree of stenosis in the cervical segment of the internal carotid artery is based on NASCET criteria. Normal is no stenosis. Mild is less than 50% stenosis. Moderate is 50-69% stenosis. Severe is 70% to 99% stenosis. Total occlusion is no detectable patent lumen. C-Arm Fluoroscopy 07/11/24 00:00 IMPRESSION: Right IJ dialysis catheter as above. Chest X-Ray 07/11/24 10:17 IMPRESSION: 2. No significant interval change. Stable opacities in each lower lobe, effusions plus infiltrates. CHF versus pneumonia. Laboratory Results WBC 7.22 10^3/uL (3.29-11.43) 07/11/24 05:10 RBC 2.89 10^6/uL (3.85-5.65) L 07/11/24 05:10 Hgb 7.80 g/dL (11.27-16.99) L 07/11/24 05:10 Hct 25.0 % (37-53) L 07/11/24 05:10 MCV 86.5 fl (82-101) 07/11/24 05:10 MCH 27.0 pg (27-33) 07/11/24 05:10 MCHC 31.2 g/dL (30-55) 07/11/24 05:10 RDW 14.5 % (12.1-15.1) 07/11/24 05:10 Plt Count 245 10^3/cmm (157-399) 07/11/24 05:10 MPV 10.6 fL (7.4-10.4) H 07/11/24 05:10 Neut % (Auto) 73.6 % 07/11/24 05:10 Lymph % (Auto) 15.7 % 07/11/24 05:10 [place] % (Auto) 9.4 % 07/11/24 05:10 Eos % (Auto) 0.4 % 07/11/24 05:10 Baso % (Auto) 0.6 % 07/11/24 05:10 Neut # (Auto) 5.32 10^3/uL (1.8-7.7) 07/11/24 05:10 Lymph # (Auto) 1.1 10^3/uL (0.8-4.8) 07/11/24 05:10 [place] # (Auto) 0.7 10^3/uL (0.2-0.9) 07/11/24 05:10 Eos # (Auto) 0.0 10^3/uL (0.0-0.8) 07/11/24 05:10 Baso # (Auto) 0.0 10^3/uL (0.0-0.1) 07/11/24 05:10 Nucleated RBC % (auto) 0 % 07/11/24 05:10 Nucleated RBCs # 0.0 /100WBC 07/11/24 05:10 Differential Comment Yes 07/03/24 14:00 ESR 32 mm/hr (0-10) H 06/30/24 19:58 PT 13.30 SECONDS (12.1-14.9) 07/03/24 04:28 INR 0.95 (0.8-1.2) 07/03/24 04: APTT 38.9 SECONDS (23.9-36.7) H 07/03/24 09:14 Specimen Type Arterial 07/01/24 17:25 Sample Site Radial, left 07/01/24 17:25 ABG pH 7.39 (7.35-7.45) 07/01/24 17: ABG pCO2 38.2 mmHg (35-45) 07/01/24: ABG pO2 67.2 mmHg (80.0-100.0) L 07/01/24 17: ABG HCO3 23.0 mmol/L (22-26) 07/01/24: ABG O2 Saturation 92.6 07/01/24 17: ABG Base Excess -1.7 mmol/L (-2.0-2.0) 07/01/24 17:25 Nicolas Test Pos 07/01/24 17:25 A-a O2 Gradient 4.3 mmHg (5-10) L 07/01/24 17:25 Hematocrit 30.9 % (42-52) L 07/01/24 17: Hgb O2 Saturation 90.4 % (95-100) L 07/01/24 17:25 Carboxyhemoglobin 1.2 %THgb (0.4-20.1) 07/01/24 17:25 Methemoglobin 1.2 % (0.4-1.5) 07/01/24 17:25 Total Hemoglobin 10.1 g/dL (14-18) L 07/01/24 17:25 Sodium 137.0 mmol/L (131-143) 07/01/24 17:25 Potassium 4.9 mmol/L (3.5-5.0) 07/01/24 17:25 Glucose 187.0 mg/dL (70-115) H 07/01/24 17:25 Ionized Calcium 1.1 mmol/L (1.1-1.4) 07/01/24 17:25 O2 Delivery Device Not Reportable 07/01/24 17:25 Mechanical Engineering Lecturer ID Broma 07/01/24 17:25 Sodium 139 mmol/L (136-145) 07/11/24 05:10 Potassium 4.7 mmol/L (3.5-5.1) 07/11/24 05:10 Chloride 104 mmol/L (98-107) 07/11/24 05:10 Carbon Dioxide 23 mmol/L (22-29) 07/11/24 05:10 Anion Gap 16.7 (5-19) 07/11/24 05:10 BUN 65 mg/dL (8-23) H 07/11/24 05:10 Creatinine 4.4 mg/dL (0.7-1.2) H 07/11/24 05:10 GFR Calculation 13.7 mL/min (90-130) L 07/11/24 05:10 Glucose 218 mg/dL (65-115) H 07/11/24 05:10 POC Glucose 92 mg/dL (70-110) 07/11/24 10:45 Calculated Osmolality 313 mOsm/kg (285-295) H 07/11/24 05:10 Lactic Acid 2.2 mmol/L (0.5-2.2) 06/29/24 19:00 Lactic Acid (Sepsis) Cancelled 06/29/24 23:56 Lactate 2.1 mmol/L (0.5-2.2) 06/30/24 00:25 Uric Acid 7.8 mg/dL (3.4-7.0) H 06/30/24 19:58 Calcium 8.4 mg/dL (8.5-10.5) L 07/11/24 05:10 Phosphorus 3.7 mg/dL (2.5-4.5) 07/11/24 05:10 Magnesium 1.9 mg/dL (1.7-2.3) 07/11/24 05:10 Iron 36 ug/dL (59-158) L 07/01/24 05:48 Iron Cancelled 07/01/24 05:48 TIBC 174 mcg/dl 07/01/24 05:48 TIBC Cancelled 07/01/24 05:48 % Saturation 20.6 % (20-50) 07/01/24 05:48 % Saturation Cancelled 07/01/24 05:48 Unsat Iron Binding 138 ug/dL (112-347) 07/01/24 05:48 Unsat Iron Binding Cancelled 07/01/24 05:48 Ferritin 419 ng/mL (30-400) H 07/01/24 05:48 Ferritin Cancelled 07/01/24 05:48 Total Bilirubin 0.2 mg/dL (0.15-1.2) 07/11/24 05:10 AST 11 U/L (0-40) 07/11/24 05:10 ALT 12 U/L (0-41) 07/11/24 05:10 Alkaline Phosphatase 121 U/L (40-130) 07/11/24 05:10 Lactate Dehydrogenase 283 U/L (135-225) H 07/03/24 09:14 Creatine Kinase 296 U/L (39-308) 06/30/24 19:58 Troponin T 5th Gen ng/L 2056 ng/L (0-15) H* 07/01/24 19:54 Troponin T Baseline 715 ng/L (0-15) H* 07/08/24 18:32 Troponin T 120 Minute 775.7 ng/L (0-15) H 07/08/24 20:27 Delta Troponin T 60.7 ABS# (0-10) H* 07/08/24 20:27 Troponin T Hi Sens 6Hr 748.6 ng/L (0-15) H 07/09/24 00:45 Troponin T Hi Sens 6Hr Delta 33.6 ng/L (0-12) H* 07/09/24 00:45 C-Reactive Protein 14.5 mg/L (0.0-4.9) H 06/30/24 19:58 C-React Prot High Sens 1.540 mg/dL (0.0-0.3) H 06/30/24 19:58 NT-Pro-B Natriuret Pep 29739 pg/mL (0-125) H 06/29/24 20:56 Total Protein 5.6 g/dL (6.6-8.7) L 07/11/24 05:10 Albumin 2.9 g/dL (3.5-5.2) L 07/11/24 05:10 Globulin 2.7 g/dL (1.3-4.6) 07/11/24 05:10 Rhoxd-1-Pvkpvxcji 0.3 g/dL (0.2-0.3) 06/30/24 19:58 Tmwip-9-Omyvincla 1.2 g/dL (0.5-0.9) H 06/30/24 19:58 Wark-3-Wonfajlz 0.3 g/dL (0.4-0.6) L 06/30/24 19:58 Vyvc-5-Xfstfhbq 0.4 g/dL (0.2-0.5) 06/30/24 19:58 Gamma Globulins 0.9 g/dL (0.8-1.7) 06/30/24 19:58 Abnorm Protein Band 1 0.1 g/dL (NONE DETECTED) H 06/30/24 19:58 Angiotensin Convert Enz 45 U/L (9-67) 06/30/24 19:58 25-OH Vitamin D Total 6 ng/mL (30-100) L 07/01/24 05:48 25-OH Vitamin D Total Cancelled 07/01/24 05:48 1,25 Dihydroxy Vit D2 <8 pg/mL 06/30/24 19:58 1,25 Dihydroxy Vit D3 <8 pg/mL 06/30/24 19:58 PTH Intact 135.9 pg/mL (15-65) H 07/10/24 05:19 Calcium (PTH Intact) 8.7 mg/dL (8.5-10.5) 07/10/24 05:19 Urine Color Yellow (Yellow) 06/30/24 05:10 Urine Appearance Clear (CLEAR) 06/30/24 05:10 Urine pH 5.5 (5-7) 06/30/24 05:10 Ur Specific [place] 1.028 (1.005-1.030) 06/30/24 05:10 Urine Protein 4+ (Negative) A 06/30/24 05:10 Urine Glucose (UA) 2+ (Normal) H 06/30/24 05:10 Urine Ketones Negative (Negative) 06/30/24 05:10 Urine Blood Negative (Negative) 06/30/24 05:10 Urine Nitrate Negative (Negative) 06/30/24 05:10 Urine Bilirubin Negative (Negative) 06/30/24 05:10 Urine Urobilinogen 0.2 mg/dL (Negative) 06/30/24 05:10 Ur Leukocyte Esterase Negative (Negative) 06/30/24 05:10 Urine RBC 0-2 /hpf (0-2) 06/30/24 05:10 Urine WBC 0-5 /hpf (0-5) 06/30/24 05:10 Ur Squamous Epith Cells 0-5 /hpf (0-5) 06/30/24 05:10 Amorphous Sediment Not Reportable 06/30/24 05:10 Urine Bacteria None seen /hpf (NONE) 06/30/24 05:10 Hyaline Casts 8.26 /lpf 06/30/24 05:10 Ur Random Microalbumin > 581 ug/dL (0-20) H 06/30/24 05:10 Ur Random Sodium 48 mmol/L 06/30/24 05:10 Ur Random Potassium 42 mmol/L 06/30/24 05:10 Ur Random Chloride 52 mmol/L 06/30/24 05:10 Urine Creatinine 65 mg/dL (39-259) 06/30/24 05:10 Urine Creatinine 68 mg/dL (39-259) 06/30/24 05:10 Microalb/Creat Ratio 8544 mg/dL (0-20) H 06/30/24 05:10 U Abnormal Prot Band 2 Not Reportable 06/30/24 19:58 U Abnormal Prot Band 3 Not Reportable 06/30/24 19:58 Fluid Color Yellow 07/03/24 14:00 Fluid Appearance Clear 07/03/24 14:00 Fluid Specific Grav 1.019 07/03/24 14:00 Fluid pH 7.5 07/03/24 14:00 Fluid WBC 218 /uL 07/03/24 14:00 Fluid RBC 0 10^3/uL 07/03/24 14:00 Fld Polynuclear WBCs # 0.007 07/03/24 14:00 Fld Polynuclear WBCs % 3.200 % 07/03/24 14:00 Fl Mononucl WBCs #(Auto) 0.211 07/03/24 14:00 Fl Mononuclear % Auto 96.800 % 07/03/24 14:00 Fld Crystal Laterality Pleural fluid 07/03/24 14:00 Fluid Glucose 220.0 mg/dL 07/03/24 14:00 Fluid Albumin 1.2 g/dL 07/03/24 14:00 Fluid LDH 88 U/L 07/03/24 14:00 Fluid Alk Phosphatase 21 IU/L 07/03/24 14:00 Fluid Cholesterol 47 mg/dL (0-200) 07/03/24 14:00 Fluid Triglycerides 18 mg/dL (0-150) 07/03/24 14:00 Fluid Uric Acid 7 mg/dL 07/03/24 14:00 Pleural Total Protein 2.1 g/dL 07/03/24 14:00 Pleural Amylase <10 U/L 07/03/24 14:00 Urine Opiates Screen Negative ng/mL (Negative) 06/29/24 11:25 Ur Barbiturates Screen Negative ng/mL (Negative) 06/29/24 11:25 Ur Phencyclidine Scrn Negative ng/mL (Negative) 06/29/24 11:25 Ur Amphetamines Screen Negative ng/mL (Negative) 06/29/24 11:25 U Benzodiazepines Scrn Negative ng/mL (Negative) 06/29/24 11:25 Urine Cocaine Screen Negative ng/mL (Negative) 06/29/24 11:25 U Marijuana (THC) Screen Positive ng/mL (Negative) H 06/29/24 11:25 Pro Electrophoresis Int See note 06/30/24 19:58 Serum Immunofixation Normal pattern. 06/30/24 19:58 MICHAEL Screen Negative (NEGATIVE) 06/30/24 19:58 ANCA Screen Negative (NEGATIVE) 06/30/24 19:58 ANCA Titer Not Reportable 06/30/24 19:58 Anti-ds DNA IgG Ab <1 IU/mL 06/30/24 19:58 Glomerular Base Mem IgG <1.0 AI 06/30/24 19:58 Complement C3 103 mg/dL (90-180) 06/30/24 19:58 Complement C4 16 mg/dL (10-40) 06/30/24 19:58 Free [place] Light Chains 141.1 mg/L (3.3-19.4) H 06/30/24 19:58 Free Lambda Light Chain 90.9 mg/L (5.7-26.3) H 06/30/24 19:58 Free [place]/Lambda Ratio 1.55 (0.26-1.65) 06/30/24 19:58 Hep Bs Antigen Non-reactive (Nonreactive) 07/02/24 05:13 Hep Bs Antibody < 3.5 (11.5-1000) L 07/02/24 05:13 Hepatitis C Antibody Non-reactive (Nonreactive) 07/02/24 05:13 Anti-Streptolysin O Ab 111 IU/mL (<200) 06/30/24 19:58 TB (QFT) Gold In Tube Negative (NEGATIVE) 07/02/24 12:33 TB Test (QFT) Nil 0.08 IU/mL 07/02/24 12:33 TB Test (QFT) Mitogen 8.49 IU/mL 07/02/24 12:33 TB Test Mitogen - Nil <0.00 IU/mL 07/02/24 12:33 TB Test TB -Nil <0.00 IU/mL 07/02/24 12:33 Vitals Last Vital Signs Temp 97.8 F 07/11/24 13:04 Pulse 75 07/11/24 13:04 Resp 18 07/11/24 13:04 BP 127/69 07/11/24 13:04 Pulse Ox 95 07/11/24 13:04 O2 Del Method Nasal Cannula 07/11/24 13:04 O2 Flow Rate 2 07/11/24 13:04 FiO2 50 07/02/24 00:00 Discharge Plan Discharge Patient Disposition: Home Condition: Stable Prescriptions: New ergocalciferol (vitamin D2) [Vitamin D2] 1,250 mcg (50,000 unit) Capsule 50,000 unit PO Q7D Qty: 4 0RF hydralazine 25 mg tablet 25 mg PO TID Qty: 90 0RF metoprolol tartrate 50 mg Tablet 100 mg PO BID@0900,2100 Qty: 120 0RF amlodipine 10 mg tablet 10 mg PO DAILY Qty: 30 0RF Continued (DME) FreeStyle Igor 14 Day Warren Misc See Rx Instructions .Route Qty: 1 0RF Rx Instructions: As directed (DME) FreeStyle Igor 14 Day Sensor Kit See Rx Instructions .Route Qty: 1 12RF Rx Instructions: As directed acetaminophen 500 mg Tablet 1,000 mg PO Q6H PRN (Reason: Pain) atorvastatin 80 mg tablet 80 mg PO BEDTIME Qty: 30 0RF clopidogrel 75 mg tablet 75 mg PO DAILY Qty: 90 0RF aspirin 81 mg Tablet,Delayed Release (Dr/Ec) 81 mg PO DAILY Qty: 60 0RF Discontinued hydralazine 50 mg tablet 50 mg PO TID Qty: 90 1RF potassium chloride 20 mEq tablet extended release 20 meq PO DAILY Qty: 90 3RF metformin 500 mg tablet 500 mg PO BID Qty: 180 1RF insulin glargine [Lantus Solostar U-100 Insulin] 100 unit/mL (3 mL) insulin pen 20 unit SUBCUT BID Qty: 15 6RF Jardiance 25 mg tablet 25 mg PO DAILY Qty: 30 0RF Hold Instructions: Cannot Afford Medication torsemide 20 mg tablet 20 mg PO BID isosorbide mononitrate 30 mg tablet extended release 24 hr 60 mg PO DAILY metoprolol succinate 25 mg tablet extended release 24 hr 25 mg PO DAILY insulin glargine [Lantus Solostar U-100 Insulin] 100 unit/mL (3 mL) insulin pen 25 unit SUBCUT BEDTIME Discharge Orders: Discharge Order (Routine); Ordered 07/11/24 Ordered By: Sandra Lee Other Ambulatory Orders: DME: Walker (Order) Location: None Selected Ordered By: Muna Sanches Physical Therapy Eval and Treat Outpatient (Order) Timeframe: 3 Days Facility: [facility] - Location: Physical Therapy [place] Ordered By: Muna Sanches Basic Metabolic Panel (Q7D) Timeframe: 20240715 Facility: [facility] - Location: Lab - Main Lab Ordered By: Juany Tamica Basic Metabolic Panel (Q7D) Timeframe: 20240722 Facility: [facility] - Location: Lab - Main Lab Ordered By: Juany Tamica Basic Metabolic Panel (Q7D) Timeframe: 20240729 Facility: [facility] - Location: Lab - Main Lab Ordered By: Juany Tamica Complete Blood Count w/Auto (Q7D) Timeframe: 20240715 Location: Determined by Patient Ordered By: Juany Tamica Complete Blood Count w/Auto (Q7D) Timeframe: 20240722 Location: Determined by Patient Ordered By: Juany Tamica Complete Blood Count w/Auto (Q7D) Timeframe: 20240729 Location: Determined by Patient Ordered By: Juany Tamica Referrals: [facility] - [Outside] - 07/12/24 10:40 am (Tuesday, and Tuesday, chair time is 11am but needs to be there at 10:40am) Ava Watts NP [Nurse Practitioner] - 07/18/24 8:30 am Donald Marino MD [Physician] - (We have notified your physician's clinic of the need for a follow-up appointment to be scheduled. If you have not heard from them within the next 2 business days, please call them directly. ) Ezio Leahy FNP [Primary Care Provider] - (We have notified your physician's clinic of the need for a follow-up appointment to be scheduled. If you have not heard from them within the next 2 business days, please call them directly. ) Aparna Singh MD [Physician] - 1 week (We have notified your physician's clinic of the need for a follow-up appointment to be scheduled. If you have not heard from them within the next 2 business days, please call them directly. ) Melvina Nuñez MD [Referring] - 1 week (We have notified your physician's clinic of the need for a follow-up appointment to be scheduled. If you have not heard from them within the next 2 business days, please call them directly. ) MAGDALENA BLAIR MD [Occupational Therapist] - 2 weeks (We have notified your physician's clinic of the need for a follow-up appointment to be scheduled. If you have not heard from them within the next 2 business days, please call them directly. ) Discharge Diet: As Directed Discharge Activity: As per PT/OT instructions Patient Instructions: Coronary Angioplasty (DC), Dialysis Nutrition Plan (DC), Acute Wound Care (DC), Hemodialysis (DC), Opioid Safety, Post Anesthesia Care Activity Restrictions/Additional Instructions: Renal dialysis diet, cardiac Discharge Attestations Time Spent in Discharge Care*: less than 30 min Status at Discharge: Cognitive status at discharge: cognitively intact , Behavioral status at discharge: cooperative , Quality Metrics Clinical Quality Measures [ Acute Myocardial Infaction { Clinical Trial Participant: No; Contraindication to aspirin: None; Aspirin prescribed; Contraindication to statin: None; Statin prescribed; Contraindication to PCI: None; PCI performed;}. No reported AMI, CVA or VTE this stay] Coding Level of Care Code Acute Code for Chg Fwd Diagnoses Acute on chronic combined systolic and diastolic congestive heart failure I50.43 Heart failure chronicity: acute on chronic Heart failure type: combined systolic and diastolic Poor compliance Z91.199 Acute on chronic systolic congestive heart failure I50.23 Heart failure type: systolic ST elevation myocardial infarction involving left anterior descending (LAD) coronary artery I21.02 Involved coronary artery: LAD coronary artery Mixed hyperlipidemia E78.2 Hyperlipidemia type: mixed hyperlipidemia 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
--- NOTE | 2024-07-11 14:48 | USCV_ITS ---
Cam Trinh Age: 64 Gender: M : 1960 Exam Date: 07/11/2024 15:11 Ordering Phys: Sandra Lee Technologist: Exam Location: [facility] [place] Indication: ? thrombus BP: 123 / 67 HR: Rhythm: Sinus Technical Quality: Adequate MEASUREMENTS (Male / Female) Normal Values 2D ECHO LV Ejection Fraction MOD 4C 53.4 % LV Ejection Fraction MOD 2C 43.7 % LV Ejection Fraction 2C AL 45.3 % FINDINGS Left Ventricle Right Ventricle Right Atrium Left Atrium Mitral Valve Aortic Valve Tricuspid Valve Pulmonic Valve Pericardium Aorta IVC CONCLUSIONS Limited echocardiogram performed to rule out LV thrombus LV systolic function is mildly reduced with EF of 40-45%. Mild global hypokinesis. No LV thrombus seen. Washington Tilley MD (Electronically Signed) Final Date: 16 July 2024 19:55 S
[2024-07-11] MEDS: clopidogrel 75 mg Tablet PO (15:12)
[2024-07-11] MEDS: perflutren protein-a microsphr 0.22 mg/mL SDV 3 mL IV (15:34)
[2024-07-11] MEDS: acetaminophen 325 mg Tablet 650 MG PO (16:02)
[2024-07-11 16:50] LABS: Glucose Point of Care 258 mg/dL (70-110)
== END 2024-07-11 18:00 | disposition home or self-care (01) | DRG 321 ==
LOC: ER 19:11 → OR 19:22 → ICU 20:20 → MEDSURG 07-05 03:32
PROVIDERS: Internal Medicine; Internal Medicine Nephrology; Student in an Organized Health Care Education/Training Program; Admitting Provider Internal Medicine; Emergency Provider Emergency Medicine; PCP Nurse Practitioner Family; Visit Provider Internal Medicine
PROC: 027035Z Dilation of Coronary Artery, One Artery with Two Drug-eluting Intraluminal Devices, Percutaneous Approach (ICD-10-PCS; principal; 2024-06-29 19:00)
PROC: 0JH63XZ Insertion of Tunneled Vascular Access Device into Chest Subcutaneous Tissue and Fascia, Percutaneous Approach (ICD-10-PCS; principal; 2024-07-11 11:20)
DX: I21.02 ST elevation (STEMI) myocardial infarction involving left anterior descending coronary artery (principal); I50.23 Acute on chronic systolic (congestive) heart failure; I13.0 Hypertensive heart and chronic kidney disease with heart failure and stage 1 through stage 4 chronic kidney disease, or unspecified chronic kidney disease; N17.9 Acute kidney failure, unspecified; I42.8 Other cardiomyopathies; G45.9 Transient cerebral ischemic attack, unspecified; J90 Pleural effusion, not elsewhere classified; E87.1 Hypo-osmolality and hyponatremia; E11.22 Type 2 diabetes mellitus with diabetic chronic kidney disease; E11.40 Type 2 diabetes mellitus with diabetic neuropathy, unspecified; N18.9 Chronic kidney disease, unspecified; E78.2 Mixed hyperlipidemia; M54.30 Sciatica, unspecified side; I67.2 Cerebral atherosclerosis; N32.9 Bladder disorder, unspecified; R09.02 Hypoxemia; E66.9 Obesity, unspecified; Z68.35 Body mass index [BMI] 35.0-35.9, adult; D64.9 Anemia, unspecified; Z91.199 Patient's noncompliance with other medical treatment and regimen due to unspecified reason; Z87.891 Personal history of nicotine dependence; Z79.82 Long term (current) use of aspirin; Z79.84 Long term (current) use of oral hypoglycemic drugs; Z79.4 Long term (current) use of insulin; Z79.02 Long term (current) use of antithrombotics/antiplatelets
CPT/HCPCS: 32555; 36415; 36416; 36600; 51798; 70450; 70496; 70498; 71045; 71046; 71250; 74018; 74176; 76770; 77001; 80048; 80051; 80053; 80306; 80503; 81001; 82042; 82044; 82150; 82164; 82306; 82310; 82330; 82436; 82465; 82550; 82570; 82652; 82728; 82805; 82945; 82962; 83520; 83540; 83550; 83605; 83615; 83735; 83880; 83883; 83970; 83986; 84075; 84100; 84133; 84155; 84157; 84165; 84300; 84315; 84478; 84484; 84550; 84560; 85025; 85347; 85610; 85651; 85730; 86036; 86038; 86060; 86140; 86141; 86160; 86225; 86334; 86480; 86706; 86803; 87015; 87070; 87075; 87116; 87205; 87206; 87340; 87801; 88305; 89050; 90935; 93005; 93306; 93458; 94660; 96372; 96374; 96375; 97116; 97161; 97530; 99152; 99153; 99291; C1725; C1750; C1760; C1769; C1874; C1887; C1894; C8924; C9600; G0269; J0690; J1100; J1200; J1644; J1650; J1720; J1815; J1940; J2250; J2270; J2371; J2405; J2704; J2765; J3010; J3490; J7030; J7050; Q3014; Q9967

== ENCOUNTER 2024-07-17 00:37 | Inpatient (IN) | payer MEDICARE, SELFPAY ==
[2024-07-17] VITALS (27 sets, daily range): BP systolic 150–178; BP diastolic 80–95; PULSE 68–96; RESP 4–24; TEMP 36.2–37.1; O2SAT 80–100; BMI 32.5
--- NOTE | 2024-07-17 00:42 | ED_ITS ---
HPI - SOB/Dyspnea 2 General: Chief Complaint: Shortness of Breath/Dyspnea Stated Complaint: sob Time Seen by Provider: 07/17/24 00:42 History of Present Illness: HPI Narrative: 64-year-old man with a history of diabet es, recent admission for a STEMI that required multiple stents and acute on chronic kidney disease that were diagnosed during that admission and he was initiated on dialysis. He presents today by ambulance with shortness of breath. EMS reported no oxygen requirements. However here he frequently drops down into the low 80s on room air. No chest pain. No increased swelling. He has not missed dialysis. He is scheduled for dialysis today at 11 AM. No altered mental status. No focal motor deficits. Related Data Home Medications Medication Instructions Recorded Confirmed acetaminophen 500 mg tablet 1,000 mg PO Q6H PRN Pain 09/08/23 06/30/24 Previous Rx's Medication Instructions Recorded flash glucose scanning reader #1 ea 09/07/23 (FreeStyle Igor 14 Day [place]) flash glucose sensor (FreeStyle #1 ea 09/07/23 Igor 14 Day Sensor kit) amlodipine 10 mg tablet 10 mg PO DAILY #30 tabs 07/11/24 aspirin 81 mg tablet,delayed 81 mg PO DAILY #60 tabs 07/11/24 release atorvastatin 80 mg tablet 80 mg PO BEDTIME #30 tabs 07/11/24 clopidogrel 75 mg tablet 75 mg PO DAILY #90 tabs 07/11/24 ergocalciferol (vitamin D2) 1,250 50,000 unit PO Q7D #4 caps 07/11/24 mcg (50,000 unit) capsule (Vitamin D2) hydralazine 25 mg tablet 25 mg PO TID #90 tabs 07/11/24 metoprolol tartrate 50 mg tablet 100 mg (2 x 50 mg) PO 07/11/24 BID@0900,2100 #120 tabs Allergies Allergy/AdvReac Type Severity Reaction Status Date / Time No Known Allergies Allergy Verified 07/17/24 00:44 Review of Systems 2 Narrative: Constitutional symptoms: Negative except as documented in HPI. Skin symptoms: Negative except as documented in HPI. Eye symptoms: Negative except as documented in HPI. ENMT symptoms: Negative except as documented in HPI. Respiratory symptoms: Negative except as documented in HPI. Cardiovascular symptoms: Negative except as documented in HPI. Gastrointestinal symptoms: Negative except as documented in HPI. Genitourinary symptoms: Negative except as documented in HPI. Musculoskeletal symptoms: Negative except as documented in HPI. Neurologic symptoms: Negative except as documented in HPI. Psychiatric symptoms: Negative except as documented in HPI. Endocrine symptoms: Negative except as documented in HPI. PFSH ED 2 PFSH: Medical History Rib pain on right side Large pleural effusion Hypertension Diabetes Abnormal nuclear stress test Hyperglycemia Hypertensive urgency Angina at rest Diabetic neuropathy, painful Chest pain Surgical History History of surgical removal of meniscus of knee Family History Other CAD (coronary artery disease) Diabetes Social History Smoking and tobacco/nicotine status: former use of tobacco/nicotine Alcohol intake: former Substance/Drug Use: never Physical Exam 2 Narrative: EXAM NARRATIVE: General: Alert, no acute distress. Skin: Warm, dry. Head: Normocephalic, atraumatic. Neck: Supple, trachea midline. Eye: Extraocular movements are intact. Ears, nose, mouth and throat: mucosa moist. Cardiovascular: Regular, Normal peripheral perfusion. Right sided dialysis catheter in place on the chest Respiratory: Lungs are clear to auscultation, respirations are non-labored, breath sounds are equal, Symmetrical chest wall expansion. Gastrointestinal: Soft, Nontender, Non distended Musculoskeletal: Normal ROM, no deformity. Neurological: Alert and oriented, No focal neurological deficit observed. Psychiatric: Cooperative, appropriate mood & affect. Course 2 Vital Signs: Vital signs: Vital Signs Temperature 98.0 F 07/17/24 00:39 Pulse Rate 87 07/17/24 01:58 Respiratory Rate 13 07/17/24 01:58 Blood Pressure 158/95 07/17/24 01:58 Pulse Oximetry 100 07/17/24 01:58 Oxygen Delivery Me thod Nasal Cannula 07/17/24 01:58 Oxygen Flow Rate 2 07/17/24 01:58 MDM - SOB/Dyspnea Medical Decision Making Differential diagnosis for patient with shortness of breath includes but is not limited to and based on the above HPI, review of systems and physical exam: Pneumonia. Bronchitis. Asthma or COPD with acute exacerbation. Acute coronary syndrome / [place]. Pulmonary embolism. Anxiety. Congestive heart failure. Viral infections including influenza and Covid-19. Atrial fibrillation. Anxiety. Pleural effusion. Pneumothorax. Orders placed to evaluate differential diagnosis based on the above differential, HPI and physical exam EKG: Time 12:51 AM. Rate 90. Normal sinus rhythm, No ST-T changes, no ectopy, normal [place] & QRS intervals, This was reviewed and interpreted by myself the ER physician at 12:55 AM. Chest x-ray: Cardiomegaly, pleural effusions, right sided dialysis catheter. This was reviewed and interpreted by myself the emergency room physician. I also reviewed the radiology report. Lab Review: Laboratory results were reviewed and interpreted by myself the emergency room physician. Stable anemia with a hemoglobin 8. No leukocytosis. BUN and creatinine are 40 and 3.3 which would be expected in this dialysis patient. Potassium is okay at 4. proBNP is actually down some at 35,000 from previous admission. I reviewed the patient's medical record. Reexamination: Patient has been requiring some oxygen. No altered mental status. No focal motor deficits. No increased work of breathing while he is on oxygen. Consultation: I spoke with Dr. Posey who agrees to admission. Assessment and plan: End-stage renal disease on dialysis Hypoxemia Pleural effusions -I discussed the patient with the hospitalist on-call who is admitting the patient. - Discussed findings and plan with patient. Answered any questions. - All laboratory values were reviewed and interpreted personally by myself, the ER physician - All imaging was reviewed and interpreted personally by myself, the ER physician. - Evaluation and treatment of this problem were appropriate in the emergency setting Lab Data 07/17/24 00:45 07/17/24 00:45 Labs/Radiology: Radiology Impressions Chest X-Ray 07/17/24 00:43 IMPRESSION: Moderate to large bilateral pleural effusions. Mild cardiomegaly. Laboratory Results WBC 6.88 10^3/uL (3.29-11.43) 07/17/24 00:45 RBC 2.93 10^6/uL (3.85-5.65) L 07/17/24 00:45 Hgb 8.10 g/dL (11.27-16.99) L 07/17/24 00:45 Hct 26.0 % (37-53) L 07/17/24 00:45 MCV 88.7 fl (82-101) 07/17/24 00:45 MCH 27.6 pg (27-33) 07/17/24 00:45 MCHC 31.2 g/dL (30-55) 07/17/24 00:45 RDW 14.0 % (12.1-15.1) 07/17/24 00:45 Plt Count 257 10^3/cmm (157-399) 07/17/24 00:45 MPV 9.7 fL (7.4-10.4) 07/17/24 00:45 Neut % (Auto) 61.4 % 07/17/24 00:45 Lymph % (Auto) 28.9 % 07/17/24 00:45 [place] % (Auto) 7.1 % 07/17/24 00:45 Eos % (Auto) 1.6 % 07/17/24 00:45 Baso % (Auto) 0.7 % 07/17/24 00:45 Neut # (Auto) 4.22 10^3/uL (1.8-7.7) 07/17/24 00:45 Lymph # (Auto) 2.0 10^3/uL (0.8-4.8) 07/17/24 00:45 [place] # (Auto) 0.5 10^3/uL (0.2-0.9) 07/17/24 00:45 Eos # (Auto) 0.1 10^3/uL (0.0-0.8) 07/17/24 00:45 Baso # (Auto) 0.1 10^3/uL (0.0-0.1) 07/17/24 00:45 Nucleated RBC % (auto) 0 % 07/17/24 00:45 Nucleated RBCs # 0.0 /100WBC 07/17/24 00:45 Sodium 138 mmol/L (136-145) 07/17/24 00:45 Potassium 4.0 mmol/L (3.5-5.1) 07/17/24 00:45 Chloride 102 mmol/L (98-107) 07/17/24 00:45 Carbon Dioxide 25 mmol/L (22-29) 07/17/24 00:45 Anion Gap 15.0 (5-19) 07/17/24 00:45 BUN 40 mg/dL (8-23) H 07/17/24 00:45 Creatinine 3.3 mg/dL (0.7-1.2) H 07/17/24 00:45 GFR Calculation 19.0 mL/min (90-130) L 07/17/24 00:45 Glucose 251 mg/dL (65-115) H 07/17/24 00:45 Calculated Osmolality 304 mOsm/kg (285-295) H 07/17/24 00:45 Lactic Acid 1.2 mmol/L (0.5-2.2) 07/17/24 00:45 Calcium 8.3 mg/dL (8.5-10.5) L 07/17/24 00:45 Total Bilirubin 0.2 mg/dL (0.15-1.2) 07/17/24 00:45 AST 12 U/L (0-40) 07/17/24 00:45 ALT 8 U/L (0-41) 07/17/24 00:45 Alkaline Phosphatase 119 U/L (40-130) 07/17/24 00:45 Troponin T Baseline 113 ng/L (0-15) H* 07/17/24 00:45 NT-Pro-B Natriuret Pep 41797 pg/mL (0-125) H 07/17/24 00:45 Total Protein 5.8 g/dL (6.6-8.7) L 07/17/24 00:45 Albumin 2.8 g/dL (3.5-5.2) L 07/17/24 00:45 Globulin 3.0 g/dL (1.3-4.6) 07/17/24 00:45 All radiology interpretation(s) finalized by discharge Discharge Plan Discharge Patient Disposition: Admitted As Inpatient Clinical Impression: End stage renal disease on dialysis, Pleural effusion, Hypoxemia, Dyspnea Condition: Stable Coding Level of 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
--- NOTE | 2024-07-17 00:43 | XRR_ITS ---
PROCEDURE INFORMATION: Exam: XR Chest Exam date and time: 07/17/2024 12:59 AM Age: 64 years old Clinical indication: Pain; Chest pressure; Prior surgery; Surgery date: 3-7 days post-operative; Surgery type: Dialysis catheter; Additional info: Shortness of breath TECHNIQUE: Imaging protocol: Radiologic exam of the chest. Views: 1 view. COMPARISON: CR XR chest 2V* [id number] 07/11/2024 1:42 PM FINDINGS: Tubes, catheters and devices: Right IJ dialysis catheter superior vena cava. Lungs: No evidence of edema or infiltrate within the visualized lungs. There is mild compressive atelectasis at the bases. Granuloma left midlung. Heart/Mediastinum: Mild cardiomegaly. Bones/joints: Unremarkable. Other findings: Moderate to large bilateral effusions. XR/XR chest 1V portable [id number] IMPRESSION: Moderate to large bilateral pleural effusions. Mild cardiomegaly.
--- NOTE | 2024-07-17 00:51 | ECG_ITS ---
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 Measurements Intervals [place] Rate: 90 P: 46 NC: 165 QRS: -39 QRSD: 129 T: 74 QT: 365 QTc: 448 Interpretive Statements SINUS RHYTHM LEFT AXIS DEVIATION [QRS AXIS < -30] POSSIBLE RIGHT VENTRICULAR CONDUCTION DELAY [RSR (QR) IN V1/V2] SEPTAL MYOCARDIAL INFARCTION , OF INDETERMINATE AGE [40+ ms Q WAVE IN V1/V2] Compared to ECG 07/09/2024 00:36:35 No significant changes Electronically Signed On 07-21-2024 23:20:01 BRAKER PASSENGER TRAIN by Washington Tilley M.D. [email or web address]
[2024-07-17 00:53] LABS: Basophils # 0.1 10^3/uL (0.0-0.1); Basophils % 0.7 %; Eosinophils # 0.1 10^3/uL (0.0-0.8); Eosinophils % 1.6 %; Lymphocytes % 28.9 %; Mean Corpuscular HGB Conc 31.2 g/dL (30-55); Mean Corpuscular Hemoglobin 27.6 pg (27-33); Mean Corpuscular Volume 88.7 fl (82-101); Mean Platelet Volume 9.7 fL (7.4-10.4); Monocytes # 0.5 10^3/uL (0.2-0.9); Monocytes % 7.1 %; Neutrophils # 4.22 10^3/uL (1.8-7.7); Neutrophils % 61.4 %; Nucleated Red Blood Cells % 0 %; Platelet Count 257 10^3/cmm (157-399); Red Blood Count 2.93 10^6/uL (3.85-5.65); White Blood Count 6.88 10^3/uL (3.29-11.43)
[2024-07-17 01:12] LABS: Lactic Sepsis W/Reflex 1.2 mmol/L (0.5-2.2)
[2024-07-17 01:15] LABS: Troponin(5th) Baseline 113 ng/L (0-15)
[2024-07-17 01:20] LABS: Alanine Aminotransferase 8 U/L (0-41); Albumin Level 2.8 g/dL (3.5-5.2); Alkaline Phosphatase 119 U/L (40-130); Aspartate Amino Transferase 12 U/L (0-40); Blood Urea Nitrogen 40 mg/dL (8-23); Calcium 8.3 mg/dL (8.5-10.5); Carbon Dioxide 25 mmol/L (22-29); Chloride 102 mmol/L (98-107); Glucose 251 mg/dL (65-115); Osmolality Calculated 304 mOsm/kg (285-295); Sodium 138 mmol/L (136-145); Total Bilirubin 0.2 mg/dL (0.15-1.2); Total Protein 5.8 g/dL (6.6-8.7)
[2024-07-17 01:46] LABS: NT Pro B Type Natriuretic Pept 35019 pg/mL (0-125)
--- NOTE | 2024-07-17 01:57 | PC.NURSE ---
Pt placed on 2L of O2 after dropping down to 80% on RM. Pt found to be breathing through his mouth. Physician notified of pt being placed on 2L.
--- NOTE | 2024-07-17 01:59 | PM.HP ---
Providers/Chief Complaint Primary Care Provider: Ezio Leahy Chief Complaint: sob History of Present Illness Cam Trinh is a 64 year old male STEMI s/p JUAN x 2 to the proximal LAD on 06/29/2024, chronic HFrEF w/ global hypokinesis noted on 06/30/2024 TTE, a hx of CKD initiated on TTS HD on 07/02/2024 via a R. IJ perm cath during STEMI hospitalization, HTN, HLD non-IDDM2 w/ b/l LE Neuropathy who presented to the ED on 07/17/2024 w/ complaints of progressive dyspnea that worsened during the evening of 06/2024. The patient noticed the dyspnea in the morning, but it was not really bad. When he went to the grocery store, he noticed a dry cough that developed towards the end of his grocery store shopping. As the day progressed, he became more dyspneic. His niece called EMS, and the patient states that prior to the arrival of EMS, he had moments where he felt confused. Associated sxs include a L. sided non-pleuritic, non-positional chest pains, that resolved with no intervention, chest soreness, a mild chest tightness, light headedness. He endorses chills, but states that he does not feel cold. He denies wheezing,palpitations, fevers, dizziness, syncope, otalgia, chronic nasal discharge, He complains of inadequate sleep for weeks. In the ED, the patient's vital signs is signficant for hypertension and of SBP of 170s and tachypnea, 87% on 2L. B/l mod to large Pleural effusions were noted on CXR. Review of Systems Const: Reports: chills; Denies: fever(s) Eyes: Denies: change in vision ENMT: Reports: nasal discharge; Denies: ear or mastoid pain, ear discharge or nasal congestion Card: Reports: chest pain, edema (b/l LE edema), swelling of feet/ankles and lightheadedness; Denies: palpitations Resp: Reports: dyspnea and non-productive cough; Denies: wheezing GI: Reports: abdominal pain (L. sided abdominal cramps); Denies: nausea, vomiting, diarrhea, constipation, hematochezia or melena : Denies: dysuria, urinary frequency, urinary urgency or hematuria Musc: Denies: joint pain Skin/Breast: Reports: rash (attributed to the telemetry leads) and pruritus (attributed to the telemetry leads) Neuro: Reports: other (no syncope); Denies: dizziness Psych: Denies: anxiety, depression, suicidal ideation or homicidal ideation Endo: Denies: cold intolerance or heat intolerance Shashi/Lymph: Reports: easy bruising (on blood thinners. ) and easy bleeding (on blood thinners. ) All/Imm: Denies: food intolerance Medications/Allergies Home Medications Medication Instructions Recorded Confirmed Last Taken Type flash glucose scanning reader #1 ea 09/07/23 06/30/24 Unknown Rx (FreeStyle Igor 14 Day [place]) flash glucose sensor (FreeStyle #1 ea 09/07/23 06/30/24 Unknown Rx Igor 14 Day Sensor kit) acetaminophen 500 mg tablet 1,000 mg PO Q6H PRN Pain 09/08/23 06/30/24 Unknown History amlodipine 10 mg tablet 10 mg PO DAILY #30 tabs 07/11/24 Unknown Rx aspirin 81 mg tablet,delayed 81 mg PO DAILY #60 tabs 07/11/24 Unknown Rx release atorvastatin 80 mg tablet 80 mg PO BEDTIME #30 tabs 07/11/24 Unknown Rx clopidogrel 75 mg tablet 75 mg PO DAILY #90 tabs 07/11/24 Unknown Rx ergocalciferol (vitamin D2) 1,250 50,000 unit PO Q7D #4 caps 07/11/24 Unknown Rx mcg (50,000 unit) capsule (Vitamin D2) hydralazine 25 mg tablet 25 mg PO TID #90 tabs 07/11/24 Unknown Rx metoprolol tartrate 50 mg tablet 100 mg (2 x 50 mg) PO 07/11/24 Unknown Rx BID@0900,2100 #120 tabs Allergies Allergy/AdvReac Type Severity Reaction Status Date / Time No Known Allergies Allergy Verified 07/17/24 00:44 PFSH Acute PFSH: Medical History Rib pain on right side Large pleural effusion Hypertension Diabetes Abnormal nuclear stress test Hyperglycemia Hypertensive urgency Angina at rest Diabetic neuropathy, painful Chest pain Surgical History History of surgical removal of meniscus of knee Family History Other CAD (coronary artery disease) Diabetes Social History Smoking and tobacco/nicotine status: former use of tobacco/nicotine Alcohol intake: former Substance/Drug Use: never Vitals/I&O/Wt Last Vital Signs Temp 98.0 F 07/17/24 00:39 Pulse 87 07/17/24 01:58 Resp 13 07/17/24 01:58 BP 158/95 07/17/24 01:58 Pulse Ox 100 07/17/24 01:58 O2 Del Method Nasal Cannula 07/17/24 01:58 O2 Flow Rate 2 07/17/24 01:58 07/16/24 07/16/24 07/17/24 14:59 22:59 06:59 Intake Total 0 / 0 Balance 0 / 0 Weight last 48 hrs Weight 99.79 kg Physical Exam Const: GENERAL APPEARANCE: cooperative (not very cooperative), disheveled and ill appearing; not comfortable ORIENTATION/CONSCIOUSNESS: Yes awake, Yes oriented to person, Yes oriented to place and Yes oriented to time HENMT: HEAD & SCALP: normocephalic and atraumatic NOSE: Normal external nose present EXTERNAL EAR: Yes external ears normal MOUTH: Normal oral and palatal mucosa present THROAT: posterior oropharynx normal Eye: OTHER: PERRL, EOMI, pale conjunctiva b/l Neck/C-Spine: GENERAL: Yes normal visual inspection and Yes trachea midline THYROID: Thyroid normal CAROTIDS: No bruit CERVICAL SPINE: Yes cervical ROM normal Lymph: OTHER: no cervical or supraclavicular LAD Resp: OTHER: diminished to absent breath sounds in b/l lung bases Cardio: OTHER: RRR, no m/r/g. 2+ radial pulses. No carotid bruits b/l GI: OTHER: TTP in the LLQ. No guarding, rigidity or rebound tenderness. No hepatosplenomegaly. Extremity: NARRATIVE EXTREMITY EXAM: 2+ edema to the b/l lower thighs GENERAL: No clubbing and No cyanosis Neuro: CRANIAL NERVES: Yes CN normal except as noted SPEECH: speech normal SENSORY EXAM: No sensory level loss detected MOTOR EXAM: 5/5 motor strength present throughout and Normal motor muscle tone present throughout Psych: APPEARANCE: Yes grossly normal ATTITUDE: Yes calm and Yes engaged ACTIVITY/MOTOR BEHAVIOR: Yes appropriate eye contact Skin: GENERAL SKIN EXAM: no rashes or lesions noted Data 07/17/24 00:45 07/17/24 00:45 A&P Assessment and plan (1) Volume overload: (2) Acute hypoxic respiratory failure: (3) Pleural effusion: (4) Acute on chronic HFrEF (heart failure with reduced ejection fraction): (5) Diabetes type 2 with atherosclerosis of arteries of extremities: (6) Hypertension: Qualifiers: Hypertension type: primary hypertension Qualified Code(s): I10 - Essential (primary) hypertension (7) Hyperlipidemia: Qualifiers: Hyperlipidemia type: mixed hyperlipidemia Qualified Code(s): E78.2 - Mixed hyperlipidemia Plan Cam Trinh is a 64 year old male STEMI s/p JUAN x 2 to the proximal LAD on 06/29/2024, chronic HFrEF w/ global hypokinesis noted on 06/30/2024 TTE, a hx of CKD initiated on TTS HD on 07/02/2024 via a R. IJ perm cath during STEMI hospitalization, HTN, HLD non-IDDM2 w/ b/l LE Neuropathy who presented to the ED on 07/17/2024 w/ complaints of progressive dyspnea that worsened during the evening of 06/2024. #Acute hypoxic respiratory failure: - Due to Pleural effusions, Vol overload. - On 3L. Wean as tolerated #b/l Pleural effusions -Ordered CT chest w/o contrast and BCx. - Defer to day hospitalist to arrange for thoracentesis #HD #Vol overload #Acute on chronic HFrEF - Defer to day hospitalist to consult Biomedical Engineering Technologist to HD #hx of STEMI s/p JUAN x 2 to the proximal LAD on 06/29/2024, CAD - On Aspirin and Clopridogrel: #HTN - IV Hydralazine prn. #HLD - Not on meds. #non-IDDM2: Referral to Endocrinology made #Vitamin D deficiency: On po vitamin D. F/u w/ Meat Cutting Block Repairer #Bladder thrombus vs mass: note during 07/11/2024 hospitalization. Referral to Urology made during the 06/30/2024 discharge. DVT ppx: Heparin subq Attestations Medical Necessity Statement*: Patient needs to be hospitalized for >2 days for his acute respiratory failure, requiring dialysis and likely a thoracentesis. All of this is complicated by the fact that he just received a drug eluting stent which may affect his thoracentesis. Time Spent in Patient Care: >70mins was spent on chart review, patient interview/exam, lab/image review, plan formulation and coordination of care. 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
--- NOTE | 2024-07-17 02:43 | ECG_ITS ---
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 Measurements Intervals [place] Rate: 88 P: 33 CT: 167 QRS: -38 QRSD: 132 T: 108 QT: 375 QTc: 455 Interpretive Statements SINUS RHYTHM LEFT AXIS DEVIATION [QRS AXIS < -30] INTRAVENTRICULAR CONDUCTION DELAY [130+ ms QRS DURATION] ANTEROSEPTAL MYOCARDIAL INFARCTION , OF INDETERMINATE AGE [40+ ms Q WAVE IN V1-V4] Compared to ECG 07/17/2024 00:51:58 Intraventricular conduction delay now present Myocardial infarct finding still present Electronically Signed On 07-21-2024 23:38:11 PUBLIC RELATIONS ASSISTANT by Washington Tilley M.D. [email or web address]
[2024-07-17 02:53] LABS: Adenovirus Not Detected (NOT DETECT); Chlamydia Pneumoniae Not Detected (NOT DETECT); Coronavirus 229E,HKU1,NL63,OC4 Not Detected (NOT DETECT); Human Metapneumovirus Not Detected (NOT DETECT); Human Rhinovirus/Enterovirus Not Detected (NOT DETECT); Influenza A Not Detected (NOT DETECT); Influenza A H1 Not Detected (NOT DETECT); Influenza A H1-2009 Not Detected (NOT DETECT); Influenza A H3 Not Detected (NOT DETECT); Influenza B Not Detected (NOT DETECT); Mycoplasma Pneumoniae Not Detected (NOT DETECT); Parainfluenza Virus Type 1 Not Detected (NOT DETECT); Parainfluenza Virus Type 2 Not Detected (NOT DETECT); Parainfluenza Virus Type 3 Not Detected (NOT DETECT); Parainfluenza Virus Type 4 Not Detected (NOT DETECT); Respiratory Syncytial Virus A Not Detected (NOT DETECT); Respiratory Syncytial Virus B Not Detected (NOT DETECT); SARS-COV-2 Not Detected (NOT DETECT)
[2024-07-17 03:23] LABS: Troponin 5 2HR 111.3 ng/L (0-15); Troponin 5 2HR Delta -1.7 ABS# (0-10)
[2024-07-17 05:05] LABS: INR 0.93 (0.8-1.2)
[2024-07-17 05:07] LABS: Partial Thromboplastin Time 35.4 SECONDS (23.9-36.7)
[2024-07-17 05:38] LABS: Estmated Average Glucose 192; Hemoglobin A1C 8.3 % (4.0-6.0)
--- NOTE | 2024-07-17 05:43 | CTR_ITS ---
PROCEDURE INFORMATION: Exam: CT Chest Without Contrast; Diagnostic Exam date and time: 07/17/2024 6:03 AM Age: 64 years old Clinical indication: Shortness of breath; Prior surgery; Surgery date: 6+ months; Surgery type: Dialysis port; Additional info: Pleural effusions TECHNIQUE: Imaging protocol: Diagnostic computed tomography of the chest without contrast. Radiation optimization: All CT scans at this facility use at least one of these dose optimization techniques: automated exposure control; mA and/or kV adjustment per patient size (includes targeted exams where dose is matched to clinical indication); or iterative reconstruction. COMPARISON: [place] [id number] 07/01/2024 9:06 AM RADIATION DOSE METRICS: Total DLP (mGy-cm): 636.52 FINDINGS: Lungs: Calcified granuloma in the left mid lung. Pleural spaces: Large bilateral pleural effusions with adjacent lower lobe atelectasis. Heart: Unremarkable. No cardiomegaly. No pericardial effusion. Coronary arteries: Coronary artery calcifications. Lymph nodes: Unremarkable. No enlarged lymph nodes. Vasculature: Unremarkable. No aortic aneurysm. Spleen: Calcified splenic granulomata. Bones/joints: Unremarkable. No acute fracture. Soft tissues: Unremarkable. CT/CT chest wo con [id number] IMPRESSION: Bilateral pleural effusions.
[2024-07-17 06:18] LABS: Glucose Point of Care 248 mg/dL (70-110)
--- NOTE | 2024-07-17 08:12 | PC.PHAR ---
Pt discharged from [facility] 07/11/24 with new orders, continue orders, and stop orders. Medications stopped are: Torsemide 20mg 2 bid, Isosorbide Mononitrate er 30mg 2 daily, Metformin 500mg bid, Duloxetine 30mg daily, Lantus solostar 25 units at hs, Potassimum chloride er 20meq daily, Jandiance 25mg daily (pt can't afford), and Humalog Kwik Pen tid +ss. Carvedilol 25mg bid last fill 04/05/24 is not on the list.
[2024-07-17 08:13] LABS: Troponin 5 6HR Delta 2.3 ng/L (0-12)
[2024-07-17 08:32] LABS: Troponin 5 6HR 115.3 ng/L (0-15)
[2024-07-17] MEDS: polyethylene glycol 3350 Pkt 17 gm PO (09:24)
[2024-07-17] MEDS: FUROsemide 10 mg/mL SDV 4mL 40 MG IVP ×2 (09:24→17:31)
[2024-07-17] MEDS: clopidogrel 75 mg Tablet PO (09:24)
[2024-07-17] MEDS: pantoprazole DR 40 mg Tablet PO (09:24)
[2024-07-17] MEDS: potassium chloride ER 20 mEq Tablet PO (09:24)
[2024-07-17] MEDS: sennosides 8.6 mg Tablet 17.2 MG PO (09:24)
[2024-07-17] MEDS: aspirin 81 mg EC Tablet PO (09:24)
[2024-07-17] MEDS: metOLazone 5 MG Tablet PO (09:24)
[2024-07-17 09:48] LABS: Hepatitis B Surface AB < 3.5 (11.5-1000); Hepatitis B Surface Antigen Non-Reactive (Nonreactive)
--- NOTE | 2024-07-17 09:48 | P.CONIM_ITS ---
Providers/Reason For Consult 2 Consulting Physician/Specialty*: kommana/Nephrology Reason for Consult*: ESRD Attending Physician: Ovidio North MD Primary Care Provider: Ezio Leahy History of Present Illness History of Present Illness Cam Trinh is a 64 year old male Patient is a 64-year-old male with past medical history of ST elevation IA, prior stents, CHF, end-stage renal disease, HD recently initiated on presented to the emergency department due to shortness of breath. Also complained of having left-sided nonpleuritic none positional chest pain. Vital signs are stable in the ED lab data significant for hemoglobin of 8.1, creatinine of 3.3. Chest CT was done in the ED that showed large bilateral pleural effusions cardiomegaly. Review of Systems 2 Narrative: Other ROS engative Medications/Allergies Home Medications Medication Instructions Recorded Confirmed Last Taken Type flash glucose scanning reader #1 ea 09/07/23 07/17/24 Unknown Rx (FreeStyle Igor 14 Day [place]) flash glucose sensor (FreeStyle #1 ea 09/07/23 07/17/24 Unknown Rx Igor 14 Day Sensor kit) acetaminophen 500 mg tablet 1,000 mg PO Q6H PRN Pain 09/08/23 07/17/24 Unknown History amlodipine 10 mg tablet 10 mg PO DAILY #30 tabs 07/11/24 07/17/24 Unknown Rx aspirin 81 mg tablet,delayed 81 mg PO DAILY #60 tabs 07/11/24 07/17/24 07/16/24 Rx release atorvastatin 80 mg tablet 80 mg PO BEDTIME #30 tabs 07/11/24 07/17/24 07/15/24 Rx clopidogrel 75 mg tablet 75 mg PO DAILY #90 tabs 07/11/24 07/17/24 07/16/24 Rx ergocalciferol (vitamin D2) 1,250 50,000 unit PO Q7D #4 caps 07/11/24 07/17/24 Unknown Rx mcg (50,000 unit) capsule (Vitamin D2) hydralazine 25 mg tablet 25 mg PO TID #90 tabs 07/11/24 07/17/24 Unknown Rx metoprolol tartrate 50 mg tablet 100 mg (2 x 50 mg) PO 07/11/24 07/17/24 Unknown Rx BID@0900,2100 #120 tabs Allergies Allergy/AdvReac Type Severity Reaction Status Date / Time No Known Allergies Allergy Verified 07/17/24 00:44 Current Medications Generic Name Dose Route Start Last Admin Trade Name Mick PRN Reason Stop Dose Admin Aspirin 81 mg 07/17/24 09:00 07/17/24 09:24 Aspirin 81 Mg Ec Tablet PO 81 mg DAILY ESTRELLA Administration Clopidogrel Bisulfate 75 mg 07/17/24 09:00 07/17/24 09:24 Clopidogrel 75 Mg Tablet PO 75 mg DAILY ESTRELLA Administration Metoprolol Tartrate 100 mg 07/17/24 09:00 07/17/24 09:23 Metoprolol Tartrate 50 Mg Tablet PO Not Given BID@0900,2100 ESTRELLA Pantoprazole Sodium 40 mg 07/17/24 09:00 07/17/24 09:[address] 40 Mg Tablet PO 40 mg DAILY ESTRELLA Administration Polyethylene Glycol 17 gm 07/17/24 09:00 07/17/24 09:24 Polyethylene Glycol 3350 Pkt 17 Gm PO 17 gm DAILY ESTRELLA Administration Senna 17.2 mg 07/17/24 09:00 07/17/24 09:24 Sennosides 8.6 Mg Tablet PO 17.2 mg DAILY ESTRELLA Administration PFSH Acute 2 PFSH: Medical History Rib pain on right side Large pleural effusion Hypertension Diabetes Abnormal nuclear stress test Hyperglycemia Hypertensive urgency Angina at rest Diabetic neuropathy, painful Chest pain Surgical History History of surgical removal of meniscus of knee Family History Other CAD (coronary artery disease) Diabetes Social History Smoking and tobacco/nicotine status: former use of tobacco/nicotine Alcohol intake: former Substance/Drug Use: never Vitals/I&O/Wt Last Vital Signs Temp 97.7 F 07/17/24 08:00 Pulse 88 07/17/24 08:00 Resp 16 07/17/24 08:00 BP 175/85 07/17/24 08:00 Pulse Ox 98 07/17/24 08:00 O2 Del Method Nasal Cannula 07/17/24 08:00 O2 Flow Rate 3 07/17/24 08:00 07/16/24 07/17/24 07/17/24 22:59 06:59 14:59 Intake Total 0 / 0 Output Total 600 / 600 Balance -600 / -600 Weight last 48 hrs Weight 104.326 kg Weight 104.581 kg Weight 99.79 kg Physical Exam 2 Narrative: awake , alert , no distress PEERLA S1S2 RRR per report Decreased BS berenice per report No edema Data 07/17/24 00:45 07/17/24 00:45 Micro: Microbiology 07/17/24 07:28 Blood Culture - Preliminary Blood SPECIMEN COLLECTED 07/17/24 07:35 Blood Culture - Preliminary Blood SPECIMEN COLLECTED A&P Assessment and plan (1) Acute kidney injury superimposed on CKD: 64-year-old male with hypertension Coronary artery disease diabetes, coronary artery disease, CHF, ESRD on HD per TTS schedule. Patient presented with shortness of breath. 1. End-stage renal disease: On TTS schedule, pt presented with volume overload ,plan for hemodialysis today and ultrafiltration as tolerated 2. Anemia: Hemoglobin 8.1 will order ELROY 3. Acute on chronic respiratory failure, multifactorial in the setting of bilateral pleural effusions and volume overload, HD as above and consider thoracentesis. 4. History of coronary artery disease with prior STEMI and stents. 5. History of CHF with ejection fraction 35 to 40% Patient evaluated using audiovisual cart. Time spent 40 minutes. he consents to telehealth and HD as needed Plan see above Consult Attestations 2 Medical Necessity Statement: per medine team Coding Level of Care Code Acute Code for Chg Fwd Diagnoses Acute kidney injury superimposed on CKD N17.9; N18.9
[2024-07-17] MEDS: heparin, porcine 1,000 unit/mL INJ 10 mL 10000 UNIT HE (12:00)
--- NOTE | 2024-07-17 12:34 | PC.OT ---
As per nursing, patient is in dialysis. He will be gone for couple hours. To attempt OT evaluation on a later time/date.
[2024-07-17] MEDS: heparin, porcine 1,000 unit/mL INJ 10 mL 10000 UNIT INTRACATH (14:40)
--- NOTE | 2024-07-17 15:24 | P.PN_ITS ---
Subjective 2 Subjective: Patient was seen this morning, he denies any fevers, no chills, no cough does report lower extremity edema, shortness of breath, does report he went to dialysis Vitals/I&O/Wt Last Vital Signs Temp 97.2 F L 07/17/24 12:00 Pulse 87 07/17/24 12:00 Resp 16 07/17/24 12:00 BP 176/95 07/17/24 12:00 Pulse Ox 93 07/17/24 12:00 O2 Del Method Nasal Cannula 07/17/24 12:00 O2 Flow Rate 3 07/17/24 12:00 07/17/24 07/17/24 07/17/24 06:59 14:59 22:59 Intake Total 0 / 0 480 / 480 Output Total 600 / 600 400 / 400 Balance -600 / -600 80 / 80 Weight last 48 hrs Weight 104.326 kg Weight 104.581 kg Weight 99.79 kg Physical Exam 2 Const: COMMON NORMALS: no acute distress and patient oriented x3 Resp: COMMON NORMALS: normal respiratory effort, No retractions and No use of accessory muscles Cardio: COMMON NORMALS: regular rate, regular rhythm, S1 normal heart sound present and S2 normal heart sound present RATE: regular rate RHYTHM: r egular rhythm HEART SOUNDS: S1 normal heart sound present and S2 normal heart sound present GI: COMMON NORMALS: Normal to inspection, nondistended, normoactive bowel sounds present and non-tender Neuro: COMMON NORMALS: patient oriented x3 Psych: COMMON NORMALS: mental status grossly normal Data 07/17/24 00:45 07/17/24 00:45 Micro: Microbiology 07/17/24 07:28 Blood Culture - Preliminary Blood SPECIMEN COLLECTED 07/17/24 07:35 Blood Culture - Preliminary Blood SPECIMEN COLLECTED A&P Assessment and plan (1) Volume overload: (2) Acute hypoxic respiratory failure: (3) Pleural effusion: (4) Acute on chronic HFrEF (heart failure with reduced ejection fraction): (5) Diabetes type 2 with atherosclerosis of arteries of extremities: (6) Hypertension: Qualifiers: Hypertension type: primary hypertension Qualified Code(s): I10 - Essential (primary) hypertension (7) Hyperlipidemia: Qualifiers: Hyperlipidemia type: mixed hyperlipidemia Qualified Code(s): E78.2 - Mixed hyperlipidemia Plan Cam Trinh is a 64 year old male STEMI s/p JUAN x 2 to the proximal LAD on 06/29/2024, chronic HFrEF w/ global hypokinesis noted on 06/30/2024 TTE, a hx of CKD initiated on TTS HD on 07/02/2024 via a R. IJ perm cath during STEMI hospitalization, HTN, HLD non-IDDM2 w/ b/l LE Neuropathy who presented to the ED on 07/17/2024 w/ complaints of progressive dyspnea that worsened during the evening of 06/2024. #Acute hypoxic respiratory failure: - Due to Pleural effusions, volume overload, heart failure with preserved ejection fraction - On 3L. Plan -Nephrology consulted -Continue IV diuresis Lasix 40 IV twice daily #b/l Pleural effusions -Ordered CT chest CT/CT chest wo con [id number] IMPRESSION: Bilateral pleural effusions. -Plan ? IV diuresis # Hemodialysis #Vol overload #Acute on chronic HFrEF -IV diuresis as above #hx of STEMI s/p JUAN x 2 to the proximal LAD on 06/29/2024, CAD -Reports compliance with medication, no chest pain -NSTEMI, serial EKGs, serial troponins, telemetry monitoring - On Aspirin and Clopridogrel -Continue statin -Continue metoprolol #HTN - IV Hydralazine prn. #HLD - Not on meds. #non-IDDM2: Low-dose sliding scale #Vitamin D deficiency: On po vitamin D. #Bladder thrombus vs mass: note during 07/11/2024 hospitalization. Referral to Urology made during the 06/30/2024 discharge. DVT ppx: Subcu heparin Attestations 2 Medical Necessity Statement*: Patient requires hospitalization for fluid overload, volume overload, diastolic CHF exacerbation requiring IV diuresis, dialysis Diagnoses Volume overload E87.70 Acute hypoxic respiratory failure J96.01 Pleural effusion J90 Acute on chronic HFrEF (heart failure with reduced ejection fraction) I50.23 Diabetes type 2 with atherosclerosis of arteries of extremities E11.51; I70.209 Primary hypertension I10 Hypertension type: primary hypertension Mixed hyperlipidemia E78.2 Hyperlipidemia type: mixed hyperlipidemia
[2024-07-17 17:00] LABS: Glucose Point of Care 237 mg/dL (70-110)
[2024-07-17] MEDS: insulin lispro 100 unit/1 mL SUBCUT (17:31)
[2024-07-17] MEDS: metoprolol tartrate 50 mg Tablet 100 MG PO (21:01)
[2024-07-17] MEDS: atorvastatin 40 mg Tablet 80 MG PO (21:01)
[2024-07-18] VITALS (8 sets, daily range): BP systolic 135–171; BP diastolic 53–85; PULSE 64–78; RESP 15–18; TEMP 36.4–37.1; O2SAT 93–99
[2024-07-18 02:25] LABS: Glucose Point of Care 292 mg/dL (70-110)
[2024-07-18] MEDS: FUROsemide 10 mg/mL SDV 4mL 40 MG IVP ×2 (05:49→17:17)
[2024-07-18 07:38] LABS: Glucose Point of Care 200 mg/dL (70-110)
[2024-07-18 07:55] LABS: Glucose Point of Care 321 mg/dL (70-110)
[2024-07-18 07:56] LABS: Basophils # 0.1 10^3/uL (0.0-0.1); Basophils % 1.1 %; Eosinophils # 0.2 10^3/uL (0.0-0.8); Eosinophils % 1.8 %; Hematocrit 27.9 % (37-53); Lymphocytes # 2.2 10^3/uL (0.8-4.8); Lymphocytes % 26.8 %; Mean Corpuscular HGB Conc 31.5 g/dL (30-55); Mean Corpuscular Hemoglobin 27.3 pg (27-33); Mean Corpuscular Volume 86.6 fl (82-101); Mean Platelet Volume 9.9 fL (7.4-10.4); Monocytes # 0.5 10^3/uL (0.2-0.9); Monocytes % 5.9 %; Neutrophils # 5.27 10^3/uL (1.8-7.7); Nucleated Red Blood Cells % 0 %; Platelet Count 284 10^3/cmm (157-399); Red Blood Count 3.22 10^6/uL (3.85-5.65); Red Cell Distribution Width 14.2 % (12.1-15.1); White Blood Count 8.24 10^3/uL (3.29-11.43)
[2024-07-18 08:11] LABS: Alanine Aminotransferase 7 U/L (0-41); Albumin Level 3.1 g/dL (3.5-5.2); Alkaline Phosphatase 108 U/L (40-130); Aspartate Amino Transferase 11 U/L (0-40); Blood Urea Nitrogen 25 mg/dL (8-23); Calcium 8.7 mg/dL (8.5-10.5); Carbon Dioxide 28 mmol/L (22-29); Chloride 97 mmol/L (98-107); Creatinine Clr Calc Pharmacy 31.7553; Globulin 3.1 g/dL (1.3-4.6); Glucose 207 mg/dL (65-115); Magnesium 1.8 mg/dL (1.7-2.3); Osmolality Calculated 290 mOsm/kg (285-295); Phosphorus 3.1 mg/dL (2.5-4.5); Sodium 135 mmol/L (136-145); Total Bilirubin 0.3 mg/dL (0.15-1.2); Total Protein 6.2 g/dL (6.6-8.7)
[2024-07-18] MEDS: insulin lispro 100 unit/1 mL SUBCUT ×2 (08:21→17:17)
[2024-07-18] MEDS: pantoprazole DR 40 mg Tablet PO (08:22)
[2024-07-18] MEDS: metoprolol tartrate 50 mg Tablet 100 MG PO ×2 (08:22→21:03)
[2024-07-18] MEDS: clopidogrel 75 mg Tablet PO (08:22)
[2024-07-18] MEDS: sennosides 8.6 mg Tablet 17.2 MG PO (08:22)
[2024-07-18] MEDS: aspirin 81 mg EC Tablet PO (08:22)
[2024-07-18] MEDS: polyethylene glycol 3350 Pkt 17 gm PO (08:22)
--- NOTE | 2024-07-18 08:49 | PM.PN ---
Subjective Subjective: feels better Medications: Reviewed: Yes Vitals/I&O/Wt Last Vital Signs Temp 97.5 F L 07/18/24 07:47 Pulse 72 07/18/24 07:47 Resp 18 07/18/24 07:47 BP 155/85 07/18/24 07:47 Pulse Ox 95 07/18/24 07:47 O2 Del Method Room Air 07/18/24 07:47 O2 Flow Rate 2 07/18/24 04:00 07/17/24 07/18/24 07/18/24 22:59 06:59 14:59 Intake Total 1100 / 1580 360 / 1940 360 / 360 Output Total 4275 / 4675 800 / 5475 450 / 450 Balance -3175 / -3095 -440 / -3535 -90 / -90 Weight last 48 hrs Weight 101.803 kg Weight 102.6 kg Weight 104.326 kg Weight 104.581 kg Weight 99.79 kg Physical Exam Narrative: awake , alert , no distress PEERLA S1S2 RRR per report Decreased BS berenice per report No edema Data 07/18/24 07:33 07/18/24 07:33 Micro: Microbiology 07/17/24 07:28 Blood Culture - Preliminary Blood NEGATIVE TO DATE 07/17/24 07:35 Blood Culture - Preliminary Blood NEGATIVE TO DATE A&P Assessment and plan (1) Acute kidney injury superimposed on CKD: 64-year-old male with hypertension Coronary artery disease diabetes, coronary artery disease, CHF, ESRD on HD per TTS schedule. Patient presented with shortness of breath. 1. End-stage renal disease: On TTS schedule, pt presented with volume overload ,s/p HD yesterday and next HD tomorrow 2. Anemia: Hemoglobin 8.1 will order ELROY 3. Acute on chronic respiratory failure, multifactorial in the setting of bilateral pleural effusions and volume overload, HD as above and consider thoracentesis. 4. History of coronary artery disease with prior STEMI and stents. 5. History of CHF with ejection fraction 35 to 40% Patient evaluated using audiovisual cart. Time spent 40 minutes. he consents to telehealth and HD as needed Plan see above Attestations Medical Necessity Statement*: per medicine Coding Level of Care Code Acute Code for [facility] Fwd Diagnoses Acute kidney injury superimposed on CKD N17.9; N18.9
--- NOTE | 2024-07-18 09:59 | PC.CHAP ---
Pastoral Care Encounter/Spiritual Assessment Type of Contact [] Declined linen folder visit [] Patient/Family/Request visit [] Outpatient visit [] Follow-up visit [] Physician referral [] Code/Alert [] Routine visit [] Staff referral [] Actively dying [] Patient sleeping [] Family support [] [] Out of room [] Palliative care [] [x] Receiving care in room [] Pre-surgical visit [] Trauma [] Long length of stay [] ICU visit [] Other: Relational/Emotional Strength [] Patient feels connected with others/family/visitors/staff [] Distress [] Loneliness/isolation [] Abandonment Spirituality of Patient [] Person of Gwendolyn [] Attends Nondenominational of their Gwendolyn [] Believes in Prayer [] Reads Bible or Jew materials [] There are Spiritual issues to be addressed Chemical [employer]st Interventions [] Prayer [] Active listening [] Non-anxious presence [] Spiritual/emotional support [] Crisis/trauma care [] Spiritual counseling [] Bereavement support [] Provided bereavement packet [] Provided Bible/devotional materials [] Provided toy/stuffed animal, coloring book to patient or family member [] Provided Communion [] Anointing/[place] [] Salvation [] Completed spiritual assessment [] Other: Impact on Illness or Injury [] Angry [] Fearful [] Anxious [] Often cries [] Exhaustion [] Unable to work [] Unable to attend gnosticist [] Unable to walk/stand [] Unable to read [] Unable to drive [] Unable to eat/drink [] Unable to sleep [] Unable to be with family [] Patient intubated [] Other: Summary Time spent with patient
[2024-07-18 11:05] LABS: Glucose Point of Care 141 mg/dL (70-110)
--- NOTE | 2024-07-18 15:07 | P.PN_ITS ---
Subjective 2 Subjective: Patient was seen this morning, he is resting more comfortably, he feels less short of breath, no nausea, no vomiting, no abdominal pain he had dialysis yesterday, he also had diuresis over 2 L yesterday Vitals/I&O/Wt Last Vital Signs Temp 98.0 F 07/18/24 12:00 Pulse 65 07/18/24 12:00 Resp 17 07/18/24 12:00 BP 146/67 07/18/24 12:00 Pulse Ox 93 07/18/24 12:00 O2 Del Method Room Air 07/18/24 12:00 O2 Flow Rate 2 07/18/24 09:00 07/18/24 07/18/24 07/18/24 06:59 14:59 22:59 Intake Total 360 / 1940 600 / 600 Output Total 800 / 5475 450 / 450 Balance -440 / -3535 150 / 150 Weight last 48 hrs Weight 101.803 kg Weight 102.6 kg Weight 104.326 kg Weight 104.581 kg Weight 99.79 kg Physical Exam 2 Const: COMMON NORMALS: no acute distress and patient oriented x3 Resp: COMMON NORMALS: normal respiratory effort, No retractions, No use of accessory muscles and clear to auscultation bilaterally AUSCULTATION: clear to auscultation bilaterally Cardio: COMMON NORMALS: regular rate, regular rhythm, S1 normal heart sound present and S2 normal heart sound present RATE: regular rate RHYTHM: r egular rhythm HEART SOUNDS: S1 normal heart sound present and S2 normal heart sound present GI: COMMON NORMALS: Normal to inspection, nondistended, normoactive bowel sounds present and non-tender Extremity: COMMON NORMALS: no pedal edema Neuro: COMMON NORMALS: patient oriented x3 Psych: COMMON NORMALS: mental status grossly normal Data 07/18/24 07:33 07/18/24 07:33 Micro: Microbiology 07/17/24 07:28 Blood Culture - Preliminary Blood NEGATIVE TO DATE 07/17/24 07:35 Blood Culture - Preliminary Blood NEGATIVE TO DATE A&P Assessment and plan (1) Volume overload: (2) Acute hypoxic respiratory failure: (3) Pleural effusion: (4) Acute on chronic HFrEF (heart failure with reduced ejection fraction): (5) Diabetes type 2 with atherosclerosis of arteries of extremities: (6) Hypertension: Qualifiers: Hypertension type: primary hypertension Qualified Code(s): I10 - Essential (primary) hypertension (7) Hyperlipidemia: Qualifiers: Hyperlipidemia type: mixed hyperlipidemia Qualified Code(s): E78.2 - Mixed hyperlipidemia Plan Cam Trinh is a 64 year old male STEMI s/p JUAN x 2 to the proximal LAD on 06/29/2024, chronic HFrEF w/ global hypokinesis noted on 06/30/2024 TTE, a hx of CKD initiated on TTS HD on 07/02/2024 via a R. IJ perm cath during STEMI hospitalization, HTN, HLD non-IDDM2 w/ b/l LE Neuropathy who presented to the ED on 07/17/2024 w/ complaints of progressive dyspnea that worsened during the evening of 06/2024. #Acute hypoxic respiratory failure: - Due to Pleural effusions, volume overload, heart failure with preserved ejection fraction - On nasal cannula -Dialyzed 3 L yesterday -Urine output 2.4 L Plan -Nephrology consulted -Continue IV diuresis Lasix 40 IV twice daily -Plan on dialysis tomorrow #b/l Pleural effusions -Ordered CT chest CT/CT chest wo con [id number] IMPRESSION: Bilateral pleural effusions. -Plan ? IV diuresis # Hemodialysis #Vol overload #Acute on chronic HFrEF -IV diuresis as above #hx of STEMI s/p JUAN x 2 to the proximal LAD on 06/29/2024, CAD -Reports compliance with medication, no chest pain -NSTEMI, serial EKGs, serial troponins, telemetry monitoring - On Aspirin and Clopridogrel -Continue statin -Continue metoprolol #HTN - IV Hydralazine prn. #HLD - Not on meds. #non-IDDM2: Low-dose sliding scale #Vitamin D deficiency: On po vitamin D. #Bladder thrombus vs mass: note during 07/11/2024 hospitalization. Referral to Urology made during the 06/30/2024 discharge. DVT ppx: Subcu heparin Attestations 2 Medical Necessity Statement*: Patient requires hospitalization for acute hypoxic respiratory failure secondary to CHF exacerbation requiring IV diuresis and dialysis Diagnoses Volume overload E87.70 Acute hypoxic respiratory failure J96.01 Pleural effusion J90 Acute on chronic HFrEF (heart failure with reduced ejection fraction) I50.23 Diabetes type 2 with atherosclerosis of arteries of extremities E11.51; I70.209 Primary hypertension I10 Hypertension type: primary hypertension Mixed hyperlipidemia E78.2 Hyperlipidemia type: mixed hyperlipidemia
[2024-07-18 16:22] LABS: Glucose Point of Care 190 mg/dL (70-110)
[2024-07-18] MEDS: permethrin cream 5% 60 gm 1 APPLIC TOPICAL (17:15)
[2024-07-18] MEDS: potassium chloride ER 20 mEq Tablet 40 MEQ PO (17:16)
[2024-07-18] MEDS: heparin 5,000 unit/mL INJ 1 mL 5000 UNIT SUBCUT (17:17)
[2024-07-18] MEDS: acetaminophen 325 mg Tablet 650 MG PO (17:26)
[2024-07-18 20:48] LABS: Glucose Point of Care 329 mg/dL (70-110)
[2024-07-18] MEDS: atorvastatin 40 mg Tablet 80 MG PO (21:03)
[2024-07-18] MEDS: hyDRALAzine 20 mg/mL INJ 1 mL 10 MG IVP (21:08)
[2024-07-19] VITALS (7 sets, daily range): BP systolic 142–196; BP diastolic 65–77; PULSE 62–77; RESP 15–20; TEMP 35.7–36.7; O2SAT 94–96
[2024-07-19] MEDS: heparin 5,000 unit/mL INJ 1 mL 5000 UNIT SUBCUT (04:53)
[2024-07-19 05:41] LABS: Basophils # 0.1 10^3/uL (0.0-0.1); Basophils % 0.9 %; Eosinophils # 0.1 10^3/uL (0.0-0.8); Eosinophils % 1.9 %; Hematocrit 25.6 % (37-53); Lymphocytes # 2.1 10^3/uL (0.8-4.8); Lymphocytes % 31.1 %; Mean Corpuscular HGB Conc 31.6 g/dL (30-55); Mean Corpuscular Hemoglobin 28.1 pg (27-33); Mean Corpuscular Volume 88.9 fl (82-101); Monocytes # 0.5 10^3/uL (0.2-0.9); Monocytes % 7.3 %; Neutrophils % 58.5 %; Nucleated Red Blood Cells % 0 %; Platelet Count 242 10^3/cmm (157-399); Red Blood Count 2.88 10^6/uL (3.85-5.65); Red Cell Distribution Width 13.9 % (12.1-15.1); White Blood Count 6.68 10^3/uL (3.29-11.43)
[2024-07-19 06:06] LABS: Glucose Point of Care 263 mg/dL (70-110)
[2024-07-19 06:09] LABS: Alanine Aminotransferase 6 U/L (0-41); Albumin Level 2.6 g/dL (3.5-5.2); Alkaline Phosphatase 92 U/L (40-130); Anion Gap 15.3 (5-19); Aspartate Amino Transferase 13 U/L (0-40); Blood Urea Nitrogen 37 mg/dL (8-23); Calcium 8.4 mg/dL (8.5-10.5); Carbon Dioxide 25 mmol/L (22-29); Chloride 100 mmol/L (98-107); Creatinine Clr Calc Pharmacy 26.1265; Globulin 2.8 g/dL (1.3-4.6); Glomerular Filtration Rate 18.4 mL/min (90-130); Glucose 260 mg/dL (65-115); Magnesium 1.9 mg/dL (1.7-2.3); Osmolality Calculated 300 mOsm/kg (285-295); Phosphorus 3.5 mg/dL (2.5-4.5); Potassium 4.3 mmol/L (3.5-5.1); Sodium 136 mmol/L (136-145); Total Bilirubin 0.2 mg/dL (0.15-1.2); Total Protein 5.4 g/dL (6.6-8.7)
[2024-07-19] MEDS: aspirin 81 mg EC Tablet PO (07:35)
[2024-07-19] MEDS: insulin lispro 100 unit/1 mL SUBCUT ×2 (07:35→11:24)
[2024-07-19] MEDS: clopidogrel 75 mg Tablet PO (07:35)
[2024-07-19] MEDS: pantoprazole DR 40 mg Tablet PO (07:35)
[2024-07-19] MEDS: sennosides 8.6 mg Tablet 17.2 MG PO (07:35)
--- NOTE | 2024-07-19 08:13 | PC.HD ---
Heparin 1000 units loading dose administered via HD catheter at 0800 per compliance auditor's orders. Prior to treatment initiation, dressing was changed. Skin redness and large chunk of dried exudate noted at catheter insertion site. Upon cleaning away exudate, small amount of pus was noted to be present on chunk as well. Photo taken and forwarded to compliance auditor (no identifiable patient information included). Patient reports no fevers or pain/discomfort at catheter insertion site.
--- NOTE | 2024-07-19 08:23 | P.PN_ITS ---
Subjective 2 Subjective: no new complaints Medications: Reviewed: Yes Vitals/I&O/Wt Last Vital Signs Temp 96.3 F L 07/19/24 08:11 Pulse 77 07/19/24 08:11 Resp 20 H 07/19/24 08:11 BP 196/73 07/19/24 08:11 Pulse Ox 94 07/19/24 07:23 O2 Del Method Room Air 07/19/24 07:23 O2 Flow Rate 2 07/18/24 09:00 07/18/24 07/19/24 07/19/24 22:59 06:59 14:59 Intake Total 600 / 1200 240 / 1440 Output Total 900 / 1350 800 / 2150 300 / 300 Balance -300 / -150 -560 / -710 -300 / -300 Weight last 48 hrs Weight 101.605 kg Weight 101.803 kg Weight 102.6 kg Physical Exam 2 Narrative: awake , alert , no distress PEERLA S1S2 RRR per report Decreased BS berenice per report No edema Data 07/19/24 05:00 07/19/24 05:00 Micro: Microbiology 07/17/24 07:28 Blood Culture - Preliminary Blood NEGATIVE TO DATE 07/17/24 07:35 Blood Culture - Preliminary Blood NEGATIVE TO DATE A&P Assessment and plan (1) Acute kidney injury superimposed on CKD: 64-year-old male with hypertension Coronary artery disease diabetes, coronary artery disease, CHF, ESRD on HD per TTS schedule. Patient presented with shortness of breath. 1. End-stage renal disease: On TTS schedule, pt presented with volume overload ,HD today 2. Anemia: Hemoglobin 8.1 will order ELROY 3. Acute on chronic respiratory failure, multifactorial in the setting of bilateral pleural effusions and volume overload, HD as above and consider thoracentesis. 4. History of coronary artery disease with prior STEMI and stents. 5. History of CHF with ejection fraction 35 to 40% Patient evaluated using audiovisual cart. Time spent 40 minutes. he consents to telehealth and HD as needed Plan see above Attestations 2 Medical Necessity Statement*: per medicine Coding Level of Care Code Acute Code for Chg Fwd Diagnoses Acute kidney injury superimposed on CKD N17.9; N18.9
[2024-07-19 10:47] LABS: Glucose Point of Care 171 mg/dL (70-110)
--- NOTE | 2024-07-19 11:14 | PC.HD ---
During treatment, patient c/o headache, abdominal pain and nausea, and was noted to be diaphoretic. BP noted to be 88/56. Per hypotension dialysis orders, UF rate reduced to 300 mL/hour and dialysate temperature reduced to 35.0C. Per bag press operator, 500 mL bolus NSS administered via HD circuit. Within a few minutes of administration, patient stated he felt much better. BP improved and patient voiced no further complaints. UF goal was 3000 mL; removed 1657 mL.
--- NOTE | 2024-07-19 13:42 | P.DS_ITS ---
Discharge Providers Date of Admission: 07/17/24 02:01 Date of Discharge: July 19, 2024 Attending Provider at Admission: Laura Posey MD Attending Provider at Discharge: Ovidio North MD Primary Care Provider: Ezio Leahy Diagnoses at Discharge Discharge Diagnosis (1) Acute kidney injury superimposed on CKD: Status: Resolved Reason for Visit Reason for Visit: sob Hospital Course Hospital Course Cam Trinh is a 64 year old male STEMI s/p JUAN x 2 to the proximal LAD on 06/29/2024, chronic HFrEF w/ global hypokinesis noted on 06/30/2024 TTE, a hx of CKD initiated on TTS HD on 07/02/2024 via a R. IJ perm cath during STEMI hospitalization, HTN, HLD non-IDDM2 w/ b/l LE Neuropathy who presented to the ED on 07/17/2024 w/ complaints of progressive dyspnea that worsened during the evening of 06/2024. Patient was admitted to [facility] for acute hypoxic respiratory failure secondary to diastolic CHF, bilateral pleural effusions volume overload requiring IV diuresis, dialysis, he is -6 L on discharge overall clinically improved. Will be discharged on his dialysis schedule, Lasix therapy with close follow-up with primary care provider as outpatient #hx of STEMI s/p JUAN x 2 to the proximal LAD on 06/29/2024, CAD -Reports compliance with medication, no chest pain -NSTEMI, serial EKGs, serial troponins, telemetry monitoring - On Aspirin and Clopridogrel -Continue statin -Continue metoprolol No chest pain during his hospitalization, discussed compliance with his aspirin, statin, Plavix, if he were to have any chest pain or shortness of breath to go to emergency room. Follow-up with cardiology as outpatient. Physical Exam Const: COMMON NORMALS: no acute distress and patient oriented x3 Resp: COMMON NORMALS: normal respiratory effort, No retractions, No use of accessory muscles and clear to auscultation bilaterally AUSCULTATION: clear to auscultation bilaterally Cardio: COMMON NORMALS: regular rate, regular rhythm, S1 normal heart sound present and S2 normal heart sound present RATE: regular rate RHYTHM: regular rhythm HEART SOUNDS: S1 normal heart sound present and S2 normal heart sound present GI: COMMON NORMALS: Normal to inspection, nondistended, normoactive bowel sounds present and non-tender Extremity: COMMON NORMALS: no pedal edema Neuro: COMMON NORMALS: patient oriented x3 Psych: COMMON NORMALS: mental status grossly normal Discharge Data Studies Completed and Pending Completed Studies During Hospitalization Category Date Time Status CT chest wo con [id number] Routine Cat Scan 07/17/24 05:43 Completed XR chest 1V portable [id number] Stat Exams 07/17/24 00:43 Completed Pending at discharge Category Date Time Status Blood Culture Routine Lab 07/17/24 07:28 Results Complete Blood Count w/Auto AM LABS Lab 07/20/24 04:00 Ordered Comprehensive Metabolic Panel AM LABS Lab 07/20/24 04:00 Ordered Magnesium AM LABS Lab 07/20/24 04:00 Ordered Phosphorus AM LABS Lab 07/20/24 04:00 Ordered Radiology Impressions Chest X-Ray 07/17/24 00:43 IMPRESSION: Moderate to large bilateral pleural effusions. Mild cardiomegaly. Chest CT 07/17/24 05:43 IMPRESSION: Bilateral pleural effusions. Laboratory Results WBC 6.68 10^3/uL (3.29-11.43) 07/19/24 05:00 RBC 2.88 10^6/uL (3.85-5.65) L 07/19/24 05:00 Hgb 8.10 g/dL (11.27-16.99) L 07/19/24 05:00 Hct 25.6 % (37-53) L 07/19/24 05:00 MCV 88.9 fl (82-101) 07/19/24 05:00 MCH 28.1 pg (27-33) 07/19/24 05:00 MCHC 31.6 g/dL (30-55) 07/19/24 05:00 RDW 13.9 % (12.1-15.1) 07/19/24 05:00 Plt Count 242 10^3/cmm (157-399) 07/19/24 05:00 MPV 10.0 fL (7.4-10.4) 07/19/24 05:00 Neut % (Auto) 58.5 % 07/19/24 05:00 Lymph % (Auto) 31.1 % 07/19/24 05:00 [place] % (Auto) 7.3 % 07/19/24 05:00 Eos % (Auto) 1.9 % 07/19/24 05:00 Baso % (Auto) 0.9 % 07/19/24 05:00 Neut # (Auto) 3.90 10^3/uL (1.8-7.7) 07/19/24 05:00 Lymph # (Auto) 2.1 10^3/uL (0.8-4.8) 07/19/24 05:00 [place] # (Auto) 0.5 10^3/uL (0.2-0.9) 07/19/24 05:00 Eos # (Auto) 0.1 10^3/uL (0.0-0.8) 07/19/24 05:00 Baso # (Auto) 0.1 10^3/uL (0.0-0.1) 07/19/24 05:00 Nucleated RBC % (auto) 0 % 07/19/24 05:00 Nucleated RBCs # 0.0 /100WBC 07/19/24 05:00 PT 13.10 SECONDS (12.1-14.9) 07/17/24 00:45 INR 0.93 (0.8-1.2) 07/17/24 00:45 APTT 35.4 SECONDS (23.9-36.7) 07/17/24 00:45 Sodium 136 mmol/L (136-145) 07/19/24 05:00 Potassium 4.3 mmol/L (3.5-5.1) 07/19/24 05:00 Chloride 100 mmol/L (98-107) 07/19/24 05:00 Carbon Dioxide 25 mmol/L (22-29) 07/19/24 05:00 Anion Gap 15.3 (5-19) 07/19/24 05:00 BUN 37 mg/dL (8-23) H 07/19/24 05:00 Creatinine 3.4 mg/dL (0.7-1.2) H 07/19/24 05:00 GFR Calculation 18.4 mL/min (90-130) L 07/19/24 05:00 Glucose 260 mg/dL (65-115) H 07/19/24 05:00 POC Glucose 171 mg/dL (70-110) H 07/19/24 10:43 Estimat Average Glucose 192 07/17/24 00:45 Hemoglobin A1c 8.3 % (4.0-6.0) H 07/17/24 00:45 Calculated Osmolality 300 mOsm/kg (285-295) H 07/19/24 05:00 Lactic Acid 1.2 mmol/L (0.5-2.2) 07/17/24 00:45 Calcium 8.4 mg/dL (8.5-10.5) L 07/19/24 05:00 Phosphorus 3.5 mg/dL (2.5-4.5) 07/19/24 05:00 Magnesium 1.9 mg/dL (1.7-2.3) 07/19/24 05:00 Total Bilirubin 0.2 mg/dL (0.15-1.2) 07/19/24 05:00 AST 13 U/L (0-40) 07/19/24 05:00 ALT 6 U/L (0-41) 07/19/24 05:00 Alkaline Phosphatase 92 U/L (40-130) 07/19/24 05:00 Troponin T Baseline 113 ng/L (0-15) H* 07/17/24 00:45 Troponin T 120 Minute 111.3 ng/L (0-15) H 07/17/24 02:56 Delta Troponin T -1.7 ABS# (0-10) L 07/17/24 02:56 Troponin T Hi Sens 6Hr 115.3 ng/L (0-15) H 07/17/24 07:35 Troponin T Hi Sens 6Hr Delta 2.3 ng/L (0-12) 07/17/24 07:35 NT-Pro-B Natriuret Pep 36048 pg/mL (0-125) H 07/17/24 00:45 Total Protein 5.4 g/dL (6.6-8.7) L 07/19/24 05:00 Albumin 2.6 g/dL (3.5-5.2) L 07/19/24 05:00 Globulin 2.8 g/dL (1.3-4.6) 07/19/24 05:00 Adenovirus (PCR) Not detected (NOT DETECT) 07/17/24 00:54 C. pneumoniae DNA (PCR) Not detected (NOT DETECT) 07/17/24 00:54 Coronavirus 229E (PCR) Not detected (NOT DETECT) 07/17/24 00:54 Hep Bs Antigen Non-reactive (Nonreactive) 07/16/24 00:45 Hep Bs Antibody < 3.5 (11.5-1000) L 07/16/24 00:45 Human Metapneumovir PCR Not detected (NOT DETECT) 07/17/24 00:54 Influenza A (H1) PCR Not detected (NOT DETECT) 07/17/24 00:54 Influ A (H1/09) PCR Not detected (NOT DETECT) 07/17/24 00:54 Influenza A (H3) PCR Not detected (NOT DETECT) 07/17/24 00:54 Influenza Type A (PCR) Not detected (NOT DETECT) 07/17/24 00:54 Influenza Type B (PCR) Not detected (NOT DETECT) 07/17/24 00:54 M. pneumoniae (PCR) Not detected (NOT DETECT) 07/17/24 00:54 Parainfluenza 1 (PCR) Not detected (NOT DETECT) 07/17/24 00:54 Parainfluenza 2 (PCR) Not detected (NOT DETECT) 07/17/24 00:54 Parainfluenza 3 (PCR) Not detected (NOT DETECT) 07/17/24 00:54 Parainfluenza 4 (PCR) Not detected (NOT DETECT) 07/17/24 00:54 RSV Type A (PCR) Not detected (NOT DETECT) 07/17/24 00:54 RSV Type B (PCR) Not detected (NOT DETECT) 07/17/24 00:54 Entero/Rhino (PCR) Not detected (NOT DETECT) 07/17/24 00:54 SARS-CoV-2 (PCR) Not detected (NOT DETECT) 07/17/24 00:54 Vitals Last Vital Signs Temp 96.6 F L 07/19/24 11:13 Pulse 62 07/19/24 11:21 Resp 16 07/19/24 11:21 BP 149/73 07/19/24 11:21 Pulse Ox 94 07/19/24 07:23 O2 Del Method Room Air 07/19/24 07:23 O2 Flow Rate 2 07/18/24 09:00 Discharge Plan Discharge Patient Disposition: Home Condition: Stable Prescriptions: New insulin aspart U-100 [Novolog FlexPen U-100 Insulin] 100 unit/mL (3 mL) insulin pen See Rx Instructions .ROUTE .COMPLEX Qty: 15 0RF Rx Instructions: Inject, subcuT, 3 times daily, after meals, based on sliding scale provided furosemide [Lasix] 40 mg tablet 40 mg PO DAILY 30 Days Qty: 30 0RF potassium chloride [Klor-Con 10] 10 mEq tablet extended release 10 meq PO DAILY 30 Days Qty: 30 0RF Continued (DME) FreeStyle Igor 14 Day [place] Misc See Rx Instructions .Route Qty: 1 0RF Rx Instructions: As directed (DME) FreeStyle Igor 14 Day Sensor Kit See Rx Instructions .Route Qty: 1 12RF Rx Instructions: As directed acetaminophen 500 mg Tablet 1,000 mg PO Q6H PRN (Reason: Pain) ergocalciferol (vitamin D2) [Vitamin D2] 1,250 mcg (50,000 unit) Capsule 50,000 unit PO Q7D Qty: 4 0RF hydralazine 25 mg tablet 25 mg PO TID Qty: 90 0RF atorvastatin 80 mg tablet 80 mg PO BEDTIME 30 Days Qty: 30 0RF clopidogrel 75 mg tablet 75 mg PO DAILY 30 Days Qty: 30 0RF aspirin 81 mg Tablet,Delayed Release (Dr/Ec) 81 mg PO DAILY 30 Days Qty: 30 0RF metoprolol tartrate 50 mg Tablet 100 mg PO BID@0900,2100 30 Days Qty: 120 0RF Discontinued amlodipine 10 mg tablet 10 mg PO DAILY Qty: 30 0RF Discharge Orders: Discharge Order (Routine); Ordered 07/19/24 Ordered By: Ovidio North Referrals: [facility] [Outside] [place] Tilley M.D [Physician] - 1-3 days Ezio Leahy FNP [Primary Care Provider] - (We have notified your physician's clinic of the need for a follow-up appointment to be scheduled. If you have not heard from them within the next 2 business days, please call them directly. ) Discharge Diet: Cardiac Patient Instructions: Opioid Safety Activity Restrictions/Additional Instructions: -Please monitor your blood sugars closely -Monitor your blood sugars 3 times daily as after meals -Please record your blood sugars, and a blood sugar log -For your NovoLog -Please inject blood sugar after meals based on sliding scale provided -Do not inject insulin if you do not eat as hypoglycemia kills -This is a NovoLog sliding scale -Insulin sliding ?fingerstick? Insulin ?141-180?0 units/sq 181-220?2 units/sq ?221-260?4 units/sq ?261-300 6 units/sq ?301-350?8 units/sq ?351-400 10 units/sq ?401-450?12 units/sq >450? 14units/sq -If your blood sugar is greater than 500 go to the emergency room -If your blood sugar is less than 60 or at anytime you feel lightheaded or dizzy or diaphoretic or have chest palpitations check your blood sugar, and eat a hard candy or drink orange juice and go immediately to the emergency room -Remember hypoglycemia kills, so if his blood sugar is less than 60 we have to increase it by taking in a sugary meal such as a hard candy or orange juice and go to the emergency room -If you have any questions please call us where here to help -Please restrict fluid intake to 1 to 2 L of fluid a day -Take Lasix 40 mg daily with potassium placement therapy -Follow-up with cardiology in 1 week Discharge Attestations Time Spent in Discharge Care*: greater than 30 min Status at Discharge: Cognitive status at discharge: cognitively intact , Behavioral status at discharge: cooperative , Quality Metrics Clinical Quality Measures [ No reported AMI, CVA or VTE this stay] Coding Level of Care Code 58396 Total time (in minutes) for Discharge: 45 Diagnoses Acute kidney injury superimposed on CKD N17.9; N18.9
== END 2024-07-19 15:07 | disposition home or self-care (01) | DRG 280 ==
LOC: ER 02:06 → ER IP 02:11 → MEDSURG 04:00
PROVIDERS: Hospitalist; Admitting Provider Internal Medicine; Emergency Provider Emergency Medicine; PCP Nurse Practitioner Family; Visit Provider Family Medicine
DX: I13.2 Hypertensive heart and chronic kidney disease with heart failure and with stage 5 chronic kidney disease, or end stage renal disease (principal); I50.23 Acute on chronic systolic (congestive) heart failure; I21.09 ST elevation (STEMI) myocardial infarction involving other coronary artery of anterior wall; N18.6 End stage renal disease; J96.01 Acute respiratory failure with hypoxia; N17.9 Acute kidney failure, unspecified; I21.4 Non-ST elevation (NSTEMI) myocardial infarction; E11.22 Type 2 diabetes mellitus with diabetic chronic kidney disease; Z99.2 Dependence on renal dialysis; E55.9 Vitamin D deficiency, unspecified; D63.1 Anemia in chronic kidney disease; I25.10 Atherosclerotic heart disease of native coronary artery without angina pectoris; E11.40 Type 2 diabetes mellitus with diabetic neuropathy, unspecified; E11.59 Type 2 diabetes mellitus with other circulatory complications; E87.70 Fluid overload, unspecified; E78.2 Mixed hyperlipidemia; Z95.5 Presence of coronary angioplasty implant and graft; Z91.128 Patient's intentional underdosing of medication regimen for other reason; Z79.4 Long term (current) use of insulin; Z79.02 Long term (current) use of antithrombotics/antiplatelets; Z79.82 Long term (current) use of aspirin; Z87.891 Personal history of nicotine dependence
CPT/HCPCS: 36415; 36416; 71045; 71250; 80053; 82962; 83036; 83605; 83735; 83880; 84100; 84484; 85025; 85610; 85730; 86706; 87040; 87340; 87486; 87581; 87633; 90935; 93005; 94664; 96372; 97161; 97165; 99285; J0360; J1644; J1815; J1940

== ENCOUNTER 2024-08-03 13:32 | Inpatient (IN) | payer MEDICARE, MEDICAID, SELFPAY ==
[2024-08-03] VITALS (11 sets, daily range): BP systolic 115–178; BP diastolic 56–99; PULSE 60–76; RESP 18–26; TEMP 36.6–36.8; O2SAT 94–99
--- NOTE | 2024-08-03 13:36 | XR_ITS ---
WS: [id number] Portable AP upright chest, 08/03/2024 Clinical Data: chest pain Comparison: Portable chest, 07/17/2024 Findings: The bilateral basilar opacities which are most likely pleural effusions remain the same. There may be some atelectasis or even minimal pneumonia. The heart size remains the same. The right dialysis catheter remains in the same position. XR/XR chest 1V portable [id number] Impression: No change in bilateral pleural effusions.
--- NOTE | 2024-08-03 13:36 | ECG_ITS ---
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: : 1960 Requested By: Ava Napier Order Number: [id number] Reading MD: HENOK DOLL Measurements Intervals [place] Rate: 69 P: -1 ND: 130 QRS: -31 QRSD: 121 T: 78 QT: 429 QTc: 460 Interpretive Statements SINUS RHYTHM LEFT AXIS DEVIATION [QRS AXIS < -30] SEPTAL MYOCARDIAL INFARCTION , OF INDETERMINATE AGE [40+ ms Q WAVE IN V1/V2] Compared to ECG 07/17/2024 05:06:31 Intraventricular conduction delay no longer present Myocardial infarct finding still present Electronically Signed On 08-05-2024 21:04:40 PHOTOGRAPH ENLARGER by HENOK DOLL [email or web address] [id number]
[2024-08-03 13:49] LABS: Basophils # 0.1 10^3/uL (0.0-0.1); Basophils % 0.6 %; Eosinophils % 0.2 %; Hematocrit 27.3 % (37-53); Lymphocytes # 1.7 10^3/uL (0.8-4.8); Lymphocytes % 16.9 %; Mean Corpuscular HGB Conc 34.1 g/dL (30-55); Mean Corpuscular Hemoglobin 27.7 pg (27-33); Mean Corpuscular Volume 81.3 fl (82-101); Mean Platelet Volume 10.4 fL (7.4-10.4); Monocytes # 0.6 10^3/uL (0.2-0.9); Monocytes % 5.9 %; Neutrophils # 7.62 10^3/uL (1.8-7.7); Neutrophils % 76.2 %; Nucleated Red Blood Cells % 0 %; Platelet Count 237 10^3/cmm (157-399); Red Blood Count 3.36 10^6/uL (3.85-5.65); Red Cell Distribution Width 13.3 % (12.1-15.1)
[2024-08-03 14:28] LABS: Troponin(5th) Baseline 156 ng/L (0-15)
[2024-08-03 14:32] LABS: Alanine Aminotransferase 10 U/L (0-41); Albumin Level 3.4 g/dL (3.5-5.2); Alkaline Phosphatase 128 U/L (40-130); Aspartate Amino Transferase 17 U/L (0-40); Blood Urea Nitrogen 16 mg/dL (8-23); Calcium 8.4 mg/dL (8.5-10.5); Carbon Dioxide 33 mmol/L (22-29); Chloride 96 mmol/L (98-107); Creatinine Clr Calc Pharmacy 49.2422; Glomerular Filtration Rate 38.3 mL/min (90-130); Glucose 202 mg/dL (65-115); Osmolality Calculated 293 mOsm/kg (285-295); Sodium 138 mmol/L (136-145); Total Bilirubin 0.4 mg/dL (0.15-1.2); Total Protein 6.4 g/dL (6.6-8.7)
[2024-08-03 14:53] LABS: NT Pro B Type Natriuretic Pept 51562 pg/mL (0-125)
--- NOTE | 2024-08-03 15:30 | PC.PHAR ---
See discharge med list from 07/11/24 and 07/19/24. Good notes on new orders, current meds and stopped meds.
--- NOTE | 2024-08-03 15:36 | ECG_ITS ---
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
[2024-08-03 15:46] LABS: Troponin 5 2HR Delta -6.6 ABS# (0-10)
[2024-08-03 15:47] LABS: Troponin 5 2HR 149.4 ng/L (0-15)
--- NOTE | 2024-08-03 15:51 | ED_ITS ---
HPI - Chest Pain 2 General: Chief Complaint: Chest Pain Stated Complaint: chest pain Time Seen by Provider: 08/03/24 14:50 History of Present Illness: 64-year-old male with history of end-sta ge renal disease presents emergency room via EMS from dialysis. He began having chest pain while he was receiving dialysis today had to cut his dialysis run short by half an hour. He had pain and pressure in the chest radiating to his left arm he has a known history of coronary disease he previously had stents last month. He did receive nitro as well as fentanyl and aspirin in the field. This resulted in resolution of his chest pain he has no significant discomfort at this time. His initial EKG does not show any acute change from previous EKGs. He was recently exposed to influenza by family member and started on Tamiflu based on history. Associated symptoms: Deny abdominal pain, dyspnea or fever(s) Related Data Home Medications ?Medication ?Instructions ?Recorded ?Confirmed acetaminophen 500 mg tablet 1,000 mg PO Q6H PRN Pain 0 09/08/23 08/03/24 Previous Rx's ?Medication ?Instructions ?Recorded flash glucose scanning reader #1 ea 09/07/23 (FreeStyle Igor 14 Day [place]) flash glucose sensor (FreeStyle #1 ea 09/07/23 Igor 14 Day Sensor kit) ergocalciferol (vitamin D2) 1,250 50,000 unit PO Q7D # 4 caps 07/11/24 mcg (50,000 unit) capsule (Vitamin D2) aspirin 81 mg tablet,delayed 81 mg PO DAILY 30 days #3 0 tabs 07/19/24 release atorvastatin 80 mg tablet 80 mg PO BEDTIME 30 days #30 tabs 07/19/24 clopidogrel 75 mg tablet 75 mg PO DAILY 30 days #30 t abs 07/19/24 furosemide 40 mg tablet (Lasix) 40 mg PO DAILY 30 days #30 tabs 07/19/24 insulin aspart U-100 100 unit/mL See Rx Instructions . Route 07/19/24 (3 mL) subcutaneous pen (Novolog .COMPLEX #15 mL FlexPen U-100 Insulin aspart) metoprolol tartrate 50 mg tablet 100 mg (2 x 50 mg) PO 07/19/24 BID@0900,2100 30 days #120 tabs amlodipine 5 mg tablet 5 mg PO DAILY #30 tabs 08/09 losartan 50 mg tablet 50 mg PO DAILY #30 tabs 07/28 09/18 sulfamethoxazole 800 1 tab PO DAILY 6 days #6 tab s 08/10/24 mg-trimethoprim 160 mg tablet Allergies Allergy/AdvReac Type Severity Reaction Status Date / Time No Known Allergies Allergy Verified 08/03/24 13:53 Review of Systems 2 Const: Denies: fever(s) or chills Card: Denies: chest pain Resp: Denies: dyspnea GI: Denies: abdominal pain : Denies: dysuria, urinary frequency or urinary urgency Musc: Denies: neck pain or back pain Skin/Breast: Denies: rash PFSH ED 2 PFSH: Medical History (Updated 08/11/24 @ 08:31 by Corona Coe DO) Chest pain Rib pain on right side Large pleural effusion Hypertension Diabetes Abnormal nuclear stress test Hyperglycemia Hypertensive urgency Angina at rest Diabetic neuropathy, painful Surgical History History of surgical removal of meniscus of knee Family History Other CAD (coronary artery disease) Diabetes Social History Smoking and tobacco/nicotine status: never used tobacco/nicotine Alcohol intake: former Substance/Drug Use: never Physical Exam 2 Const: GENERAL APPEARANCE: cooperative ORIENTATION/CONSCIOUSNESS: Yes awake, Yes oriented to person, Yes oriented to place and Yes oriented to time HENMT: COMMON NORMALS: normocephalic, atraumatic and hearing grossly normal bilaterally HEAD & SCALP: normocephalic and atraumatic Resp: AUSCULTATION: crackles Cardio: COMMON NORMALS: regular rate, regular rhythm and No murmurs present (Cardio) RATE: regular rate RHYTHM: regular rhythm GI: COMMON NORMALS: Soft to palpation and No hepatosplenomegaly present A USCULTATION: Yes normoactive bowel sounds PALPATION: Yes Soft to palpation, No Tenderness to palpation present (GI), No Guarding due to palpation present (GI) and Yes No hepatosplenomegaly present Extremity: COMMON NORMALS: normal to inspection, capillary refill normal, no clubbing, cyanosis or edema, no calf tenderness and no pedal edema Neuro: SENSORIUM/ORIENTATION: Yes oriented to person, Yes oriented to place and Yes oriented to time Skin: COMMON NORMALS: no rashes or lesions noted GENERAL SKIN EXAM: no rashes or lesions noted Course 2 Vital Signs: Vital signs: Vital Signs Temperature 98 F 08/10/24 15:35 Pulse Rate 65 08/10/24 15:35 Respiratory Rate 16 08/10/24 15:35 Blood Pressure 153/66 08/10/24 15:35 Pulse Oximetry 96 08/10/24 15:35 Oxygen Delivery Me thod Room Air 08/10/24 08:19 Oxygen Flow Rate 2 08/09/24 16:00 MDM - Chest Pain Medical Decision Making Troponin elevated. . Patient has chronic elevation troponin due to his end- stage renal disease. His second troponin has a negative delta. He will need dialysis today will admit discussed with hospitalist consult cardiology Lab Data 08/10/24 02:45 08/10/24 02:45 Radiology Impressions Chest X-Ray 08/03/24 13:36 Impression: No change in bilateral pleural effusions. Laboratory Results WBC 10.00 10^3/uL (3.29-11.43) 08/03/24 13:41 RBC 3.36 10^6/uL (3.85-5.65) L 08/03/24 13:41 Hgb 9.30 g/dL (11.27-16.99) L 08/03/24 13:41 Hct 27.3 % (37-53) L 08/03/24 13:41 MCV 81.3 fl (82-101) L 08/03/24 13:41 MCH 27.7 pg (27-33) 08/03/24 13:41 MCHC 34.1 g/dL (30-55) 08/03/24 13:41 RDW 13.3 % (12.1-15.1) 08/03/24 13:41 Plt Count 237 10^3/cmm (157-399) 08/03/24 13:41 MPV 10.4 fL (7.4-10.4) 08/03/24 13:41 Neut % (Auto) 76.2 % 08/03/24 13:41 Lymph % (Auto) 16.9 % 08/03/24 13:41 [place] % (Auto) 5.9 % 08/03/24 13:41 Eos % (Auto) 0.2 % 08/03/24 13:41 Baso % (Auto) 0.6 % 08/03/24 13:41 Neut # (Auto) 7.62 10^3/uL (1.8-7.7) 08/03/24 13:41 Lymph # (Auto) 1.7 10^3/uL (0.8-4.8) 08/03/24 13:41 [place] # (Auto) 0.6 10^3/uL (0.2-0.9) 08/03/24 13:41 Eos # (Auto) 0.0 10^3/uL (0.0-0.8) 08/03/24 13:41 Baso # (Auto) 0.1 10^3/uL (0.0-0.1) 08/03/24 13:41 Nucleated RBC % (auto) 0 % 08/03/24 13:41 Nucleated RBCs # 0.0 /100WBC 08/03/24 13:41 Sodium 138 mmol/L (136-145) 08/03/24 13:41 Potassium 4.0 mmol/L (3.5-5.1) 08/03/24 13:41 Chloride 96 mmol/L (98-107) L 08/03/24 13:41 Carbon Dioxide 33 mmol/L (22-29) H 08/03/24 13:41 Anion Gap 13.0 (5-19) 08/03/24 13:41 BUN 16 mg/dL (8-23) 08/03/24 13:41 Creatinine 1.8 mg/dL (0.7-1.2) H 08/03/24 13:41 GFR Calculation 38.3 mL/min (90-130) L 08/03/24 13:41 Glucose 202 mg/dL (65-115) H 08/03/24 13:41 Calculated Osmolality 293 mOsm/kg (285-295) 08/03/24 13:41 Calcium 8.4 mg/dL (8.5-10.5) L 08/03/24 13:41 Total Bilirubin 0.4 mg/dL (0.15-1.2) 08/03/24 13:41 AST 17 U/L (0-40) 08/03/24 13:41 ALT 10 U/L (0-41) 08/03/24 13:41 Alkaline Phosphatase 128 U/L (40-130) 08/03/24 13:41 Troponin T Baseline 156 ng/L (0-15) H* 08/03/24 13:41 Troponin T 120 Minute 149.4 ng/L (0-15) H 08/03/24 15:22 Delta Troponin T -6.6 ABS# (0-10) L 08/03/24 15:22 NT-Pro-B Natriuret Pep 20568 pg/mL (0-125) H 08/03/24 13:41 Total Protein 6.4 g/dL (6.6-8.7) L 08/03/24 13:41 Albumin 3.4 g/dL (3.5-5.2) L 08/03/24 13:41 Globulin 3.0 g/dL (1.3-4.6) 08/03/24 13:41 Procalcitonin 0.13 ng/mL (0-0.5) 08/03/24 13:41 All radiology interpretation(s) finalized by discharge Discharge Plan Discharge Patient Disposition: Admitted As Inpatient Admit Provider: Ovidio North Clinical Impression: Chest pain, End stage renal disease on dialysis, Nonischemic congestive cardiomyopathy CHF (congestive heart failure) Qualifiers: Heart failure type: combined systolic and diastolic Heart failure chronicity: a cute on chronic Qualified Code(s): I50.43 - Acute on chronic combined systolic (congestive) and diastolic (congestive) heart failure Condition: Stable Discharge Diet: Usual diet Discharge Activity: Increase activity as tolerated Coding Level of Care Code 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
[2024-08-03] MEDS: nitroglycerin 1 gm/inch oint Pkt 1 INCH TOPICAL (16:00)
[2024-08-03] MEDS: heparin 5,000 unit/mL INJ 1 mL IVP (16:07)
[2024-08-03] MEDS: heparin drip 25,000 UNIT/500 ML PREMIX 29 UNIT IV ×2 (16:09→18:01)
--- NOTE | 2024-08-03 16:26 | PC.NURSE ---
Dr. Coe gave me a verbal order for a heparin drip weight base and a 1 inch nitro paste.
--- NOTE | 2024-08-03 16:42 | PC.NURSE ---
Orders received to discontinue Heparin drip at this time. IV shut off per verbal order. Patient requesting to eat, verbal order was received to allow patient to eat. Primary nurse notified at this time.
--- NOTE | 2024-08-03 17:11 | ECG_ITS ---
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
--- NOTE | 2024-08-03 17:47 | PC.NURSE ---
Dr. Coe ordered heparin gtt on pt, was cancelled, Dr. North re-ordered Heparin gtt; pt did receive heparin bolus via original order, will continue current order off of first bag of heparin pulled, per Dr. North.
--- NOTE | 2024-08-03 17:53 | PM.HP ---
Providers/Chief Complaint Primary Care Provider: Ezio Leahy Chief Complaint: chest pain History of Present Illness Cam Trinh is a 64 year old male with a past medical history of CAD status post stenting to LAD, end-stage renal disease on dialysis, type 2 diabetes, anemia, hyperlipidemia hypertension who presents to [facility] for chest pain. Patient reports that he had episode of chest pain yesterday intermittently, today he was at dialysis, an hour into dialysis he developed severe substernal chest pain, he had multiple episodes which subsequently resolved, here in the emergency room he has had 1 episode of chest pain, currently chest pain is subsiding but present. He tells me that in dialysis they have been taking fluid off of him, no shortness of breath does have edema but tells me that it is better. He is taking all his medication as prescribed, no fevers, no cough, no lightheadedness, dizziness Review of Systems Const: Denies: fever(s) Card: Reports: chest pain Resp: Denies: dyspnea GI: Denies: abdominal pain Medications/Allergies Home Medications ?Medication ?Instructions ?Recorded ?Confirmed ?Last Taken ?Type flash glucose scanning reader #1 ea 09/07/23 08/03/24 Unknown Rx (FreeStyle Igor 14 Day [place]) flash glucose sensor (FreeStyle #1 ea 09/07/23 08/03/24 Unknown Rx Igor 14 Day Sensor kit) acetaminophen 500 mg tablet 1,000 mg PO Q6H PRN Pain 09/08/23 08/03/24 Unknown History ergocalciferol (vitamin D2) 1,250 50,000 unit PO Q7D #4 caps 07/11/24 08/03/24 Unknown Rx mcg (50,000 unit) capsule (Vitamin D2) hydralazine 25 mg tablet 25 mg PO TID #90 tabs 07/11/24 08/03/24 08/03/24 Rx aspirin 81 mg tablet,delayed 81 mg PO DAILY 30 days #30 tabs 07/19/24 08/03/24 08/03/24 Rx release atorvastatin 80 mg tablet 80 mg PO BEDTIME 30 days #30 tabs 07/19/24 08/03/24 08/02/24 Rx clopidogrel 75 mg tablet 75 mg PO DAILY 30 days #30 tabs 01/23/25 02/07/25 02/07/25 Rx furosemide 40 mg tablet (Lasix) 40 mg PO DAILY 30 days #30 tabs 07/19/24 08/03/24 08/03/24 Rx insulin aspart U-100 100 unit/mL See Rx Instructions .Route 07/19/24 08/03/24 Unknown Rx (3 mL) subcutaneous pen (Novolog .COMPLEX #15 mL FlexPen U-100 Insulin aspart) metoprolol tartrate 50 mg tablet 100 mg (2 x 50 mg) PO 07/19/24 08/03/24 08/03/24 Rx BID@0900,2100 30 days #120 tabs potassium chloride 10 mEq 10 meq PO DAILY 30 days #30 tabs 07/19/24 08/03/24 08/03/24 Rx tablet,extended release (Klor-Con) oseltamivir 45 mg capsule (Tamiflu) 45 mg PO BID #10 caps 08/02/24 08/03/24 08/03/24 Rx Allergies Allergy/AdvReac Type Severity Reaction Status Date / Time No Known Allergies Allergy Verified 08/03/24 13:53 PFSH Acute PFSH: Medical History (Updated 08/03/24 @ 17:57 by Ovidio North MD) Chest pain Rib pain on right side Large pleural effusion Hypertension Diabetes Abnormal nuclear stress test Hyperglycemia Hypertensive urgency Angina at rest Diabetic neuropathy, painful Surgical History History of surgical removal of meniscus of knee Family History Other CAD (coronary artery disease) Diabetes Social History Smoking and tobacco/nicotine status: never used tobacco/nicotine Alcohol intake: former Substance/Drug Use: never Vitals/I&O/Wt Last Vital Signs Temp 97.9 F 08/03/24 13:46 Pulse 76 08/03/24 17:16 Resp 26 H 08/03/24 17:16 BP 174/84 08/03/24 17:16 Pulse Ox 95 08/03/24 17:16 O2 Del Method Nasal Cannula 08/03/24 17:16 O2 Flow Rate 2 08/03/24 17:16 08/03/24 08/03/24 08/03/24 06:59 14:59 22:59 Intake Total 29 / 29 Balance Weight last 48 hrs Weight 101.151 kg Physical Exam Const: COMMON NORMALS: no acute distress and patient oriented x3 HENMT: COMMON NORMALS: normocephalic HEAD & SCALP: normocephalic Eye: COMMON NORMALS: Equal, round and reactive pupils present Neck/C-Spine: COMMON NORMALS: no JVD Resp: COMMON NORMALS: normal respiratory effort, No retractions, No use of accessory muscles and clear to auscultation bilaterally AUSCULTATION: clear to auscultation bilaterally Cardio: COMMON NORMALS: regular rate, regular rhythm, S1 normal heart sound present and S2 normal heart sound present RATE: regular rate RHYTHM: regular rhythm HEART SOUNDS: S1 normal heart sound present and S2 normal heart sound present GI: COMMON NORMALS: Normal to inspection, nondistended, normoactive bowel sounds present, Soft to palpation and non-tender Extremity: NARRATIVE EXTREMITY EXAM: 1+ edema Neuro: COMMON NORMALS: patient oriented x3, CN's II-XII intact bilaterally and moves all extremities Psych: COMMON NORMALS: mental status grossly normal Data 08/03/24 13:41 08/03/24 13:41 A&P Assessment and plan (1) Nonischemic congestive cardiomyopathy: (2) Hyperlipidemia: Qualifiers: Hyperlipidemia type: mixed hyperlipidemia Qualified Code(s): E78.2 - Mixed hyperlipidemia (3) CHF (congestive heart failure): Qualifiers: Heart failure type: combined systolic and diastolic Heart failure chronicity: acute on chronic Qualified Code(s): I50.43 - Acute on chronic combined systolic (congestive) and diastolic (congestive) heart failure (4) Hypertension: Qualifiers: Hypertension type: primary hypertension Qualified Code(s): I10 - Essential (primary) hypertension (5) Diabetes type 2 with atherosclerosis of arteries of extremities: (6) End stage renal disease: (7) Non-STEMI (non-ST elevated myocardial infarction): (8) Chest pain: Plan Chest pain, NSTEMI -Coronary angiogram 06/2024 Diagnostic Findings * Left Main has no significant disease. * Left Anterior Descending has patent proximal vessel stents. * Circumflex has no significant disease. * Mid Right Coronary Artery: moderate 50-60% stenosis, DINH: 3 flow. * INDICATION: Patient presented with STEMI and underwent successful revascularization of proximal LAD with 2 stents. On arrival to ICU, patient again started having chest discomfort and had persistent ST elevations. Patient was brought emergently back to the [facility] Util[facility] for rechecking recently placed stents and coronary vasculature. * Coronary angiography shows right dominance. Conclusions 1. Patent recently placed proximal LAD stents. Moderate mid RCA stenosis. Plan -Serial EKGs, serial troponins, telemetry monitoring -Aspirin, statin, Plavix, beta-kimani -Cardiac echo -Heparin drip -Nitro drip -Monitor closely -N.p.o. midnight -Cardiology consulted End-stage renal disease on dialysis, does have 1+ pitting edema but no crackles on exam does not appear to be fluid overloaded, nephrology consulted for dialysis tomorrow Type 2 diabetes mellitus, low-dose sliding scale Hypertension resume home blood pressure medications PDMP PDMP Reviewed: Not Reviewed Attestations Medical Necessity Statement*: Patient requires hospitalization for chest pain, NSTEMI, inpatient, greater than 2 midnights Diagnoses Nonischemic congestive cardiomyopathy I42.0 Mixed hyperlipidemia E78.2 Hyperlipidemia type: mixed hyperlipidemia Acute on chronic combined systolic and diastolic congestive heart failure I50.43 Heart failure type: combined systolic and diastolic Heart failure chronicity: acute on chronic Primary hypertension I10 Hypertension type: primary hypertension Diabetes type 2 with atherosclerosis of arteries of extremities E11.51; I70.209 End stage renal disease N18.6 Non-STEMI (non-ST elevated myocardial infarction) I21.4 Chest pain R07.9
[2024-08-03] MEDS: nitroglycerin drip 50 MG/250 ML PREMIX IV (18:00)
--- NOTE | 2024-08-03 18:10 | PC.NURSE ---
repeat PTT draw for @0000 08/04/2024; unable to put PTT order in at this time.
--- NOTE | 2024-08-03 18:18 | PC.NURSE ---
per Dr. North verbal order to select dx code NSTEMI and Anemia for PTT order per pt responsible for charges .
[2024-08-03 18:45] LABS: Procalcitonin 0.13 ng/mL (0-0.5)
--- NOTE | 2024-08-03 19:46 | PC.NURSE ---
Anne called to Adali AVILES in [facility]. All questions and concerns were addressed at time of report.
[2024-08-03 21:37] LABS: Glucose Point of Care 213 mg/dL (70-110)
[2024-08-03] MEDS: metoprolol tartrate 50 mg Tablet 100 MG PO (21:50)
[2024-08-03] MEDS: atorvastatin 40 mg Tablet 80 MG PO (21:50)
[2024-08-03] MEDS: hyDRALAzine 25 mg Tablet PO (21:50)
[2024-08-03] MEDS: morphine 4 mg/mL SDV 1 mL 2 MG IVP (21:51)
[2024-08-03] MEDS: pantoprazole 40 mg SDV IVP (21:51)
[2024-08-03 22:05] LABS: Troponin 5 6HR 150.9 ng/L (0-15); Troponin 5 6HR Delta -5.1 ng/L (0-12)
[2024-08-03 22:25] LABS: Thyroid Stimulating Hormone 4.27 uIU/mL (0.27-4.20)
[2024-08-04] VITALS (11 sets, daily range): BP systolic 147–180; BP diastolic 69–87; PULSE 57–73; RESP 16–24; TEMP 36–36.9; O2SAT 96–100
[2024-08-04 02:17] LABS: Partial Thromboplastin Time 90.8 SECONDS (23.9-36.7)
--- NOTE | 2024-08-04 06:06 | P.CONIM_ITS ---
Providers/Reason For Consult 2 Consulting Physician/Specialty*: kommana/Nephrology Reason for Consult*: ESRD Attending Physician: Ovidio North MD Primary Care Provider: Ezio Leahy History of Present Illness History of Present Illness Cam Trinh is a 64 year old male Patient is a 64-year-old male with past medical history of coronary artery disease status post stents, end-stage renal disease on dialysis Tuesday, type 2 diabetes, dyslipidemia hypertension presented troponins were elevated. Due to chest pain. Denies any shortness of breath. Labs reviewed, Review of Systems 2 Narrative: negative Medications/Allergies Home Medications ?Medication ?Instructions ?Recorded ?Confirmed ?Last Taken ?Type flash glucose scanning reader #1 ea 09/07/23 08/03/24 Unknown Rx (FreeStyle Igor 14 Day [place]) flash glucose sensor (FreeStyle #1 ea 09/07/23 5 Unknown Rx Igor 14 Day Sensor kit) acetaminophen 500 mg tablet 1,000 mg PO Q6H PRN Pain 0 09/08/23 08/03/24 Unknown History ergocalciferol (vitamin D2) 1,250 50,000 unit PO Q7D # 4 caps 07/11/24 08/03/24 Unknown Rx mcg (50,000 unit) capsule (Vitamin D2) hydralazine 25 mg tablet 25 mg PO TID #90 tabs 08/03/24 08/03/24 Rx aspirin 81 mg tablet,delayed 81 mg PO DAILY 30 days #3 0 tabs 07/19/24 08/03/24 08/03/24 Rx release atorvastatin 80 mg tablet 80 mg PO BEDTIME 30 days #30 tabs 07/19/24 08/03/24 08/02/24 Rx clopidogrel 75 mg tablet 75 mg PO DAILY 30 days #30 t abs 07/19/24 08/03/24 08/03/24 Rx furosemide 40 mg tablet (Lasix) 40 mg PO DAILY 30 days #30 tabs 07/19/24 08/03/24 08/03/24 Rx insulin aspart U-100 100 unit/mL See Rx Instructions . Route 07/19/24 08/03/24 Unknown Rx (3 mL) subcutaneous pen (Novolog .COMPLEX #15 mL FlexPen U-100 Insulin aspart) metoprolol tartrate 50 mg tablet 100 mg (2 x 50 mg) PO 07/19/24 08/03/24 08/03/24 Rx BID@0900,2100 30 days #120 tabs potassium chloride 10 mEq 10 meq PO DAILY 30 days #30 tabs 07/19/24 08/03/24 08/03/24 Rx tablet,extended release (Klor-Con) oseltamivir 45 mg capsule (Tamiflu) 45 mg PO BID #10 c aps 08/02/24 08/03/24 08/03/24 Rx Allergies Allergy/AdvReac Type Severity Reaction Status Date / Time No Known Allergies Allergy Verified 08/03/24 13:53 Current Medications Generic Name Dose Route Start Last Admin Trade Name Freq PRN Reason Stop Dose Admin Atorvastatin Calcium 80 mg 08/03/24 21:15 08/03/24 21:50 Atorvastatin 40 Mg Tablet PO 80 mg BEDTIME ESTRELLA Administration Hydralazine HCl 25 mg 08/03/24 21:15 08/03/24 21:50 Hydralazine 25 Mg Tablet PO 25 mg TID ESTRELLA Administration Heparin Sodium/Sodium Chloride 25,000 unit in 500 mls @ 0 mls/hr 08/03/24 17:45 08/04/24 02:20 Heparin Drip IV 12.36 unit/kg/hr CONT ESTRELLA 25 mls/hr Titration Protocol Per Protocol Nitroglycerin/Dextrose 50 mg in 250 mls @ 0 mls/hr 08/03/24 17:45 08/03/24 18:00 Nitroglycerin Drip IV 10 mcg/min .Q0M ESTRELLA 3 mls/hr Administration Protocol Per Protocol Insulin Human Lispro 0 unit 08/03/24 21:15 08/03/24 21:34 Insulin Lispro 100 Unit/1 Ml SUBCUT Not Given WM&BEDTIME ESTRELLA Protocol Metoprolol Tartrate 100 mg 08/03/24 21:15 08/03/24 21:50 Metoprolol Tartrate 50 Mg Tablet PO 100 mg BID@0900,2100 ESTRELLA Administration Morphine Sulfate 2 mg 08/03/24 21:15 08/03/24 21:51 Morphine 4 Mg/Ml Sdv 1 Ml IVP 2 mg Q4H PRN Administration SEVERE PAIN Pantoprazole Sodium 40 mg 08/03/24 21:15 08/03/24 21:51 Pantoprazole 40 Mg Sdv IVP 40 mg Q24H ESTRELLA Administration PFSH Acute 2 PFSH: Medical History (Updated 08/03/24 @ 17:57 by Ovidio North MD) Chest pain Rib pain on right side Large pleural effusion Hypertension Diabetes Abnormal nuclear stress test Hyperglycemia Hypertensive urgency Angina at rest Diabetic neuropathy, painful Surgical History History of surgical removal of meniscus of knee Family History Other CAD (coronary artery disease) Diabetes Social History Smoking and tobacco/nicotine status: never used tobacco/nicotine Alcohol intake: former Substance/Drug Use: never Vitals/I&O/Wt Last Vital Signs Temp 98.5 F 08/04/24 03:39 Pulse 68 08/04/24 05:55 Resp 18 08/04/24 03:39 BP 157/75 08/04/24 03:39 Pulse Ox 100 08/04/24 03:39 O2 Del Method Nasal Cannula 08/04/24 03:39 O2 Flow Rate 2 08/04/24 03:39 08/03/24 08/03/24 08/04/24 14:59 22:59 06:59 Intake Total 729 / 729 241.183 / 970.183 Output Total 0 / 0 300 / 300 Balance 729 / 729 -58.817 / 670.183 Weight last 48 hrs Weight 45.631 kg Weight 100.8 kg Weight 101.151 kg Physical Exam 2 Narrative: Awake , alert , no distress S1S2 RRR per report Lungs clear per report 1+ edema Data 08/04/24 07:54 08/04/24 07:54 A&P Assessment and plan (1) End stage renal disease: Plan 1. End-stage renal disease: On MWF schedule, missed HD yesterday, will plan on dialysis today, ultrafiltration as tolerated 2. NSTEMI: Management per cardiology 3. Hypertension: Blood pressure controlled 4. History of diabetes 5. Anemia: Will order ELROY with HD for a goal hemoglobin between 10-11. Patient evaluated using audiovisual cart. Time spent 40 minutes PDMP PDMP Reviewed: Not Reviewed Consult Attestations 2 Medical Necessity Statement: per anahy Coding Level of Care Code Acute Code for Chg Fwd Diagnoses End stage renal disease N18.6
[2024-08-04 06:27] LABS: Glucose Point of Care 178 mg/dL (70-110)
[2024-08-04 08:25] LABS: Basophils # 0.1 10^3/uL (0.0-0.1); Basophils % 0.6 %; Eosinophils # 0.1 10^3/uL (0.0-0.8); Eosinophils % 0.8 %; Hematocrit 25.3 % (37-53); Lymphocytes # 1.8 10^3/uL (0.8-4.8); Lymphocytes % 22.3 %; Mean Corpuscular HGB Conc 31.6 g/dL (30-55); Mean Corpuscular Hemoglobin 27.4 pg (27-33); Mean Corpuscular Volume 86.6 fl (82-101); Mean Platelet Volume 10.6 fL (7.4-10.4); Monocytes # 0.6 10^3/uL (0.2-0.9); Monocytes % 7.9 %; Nucleated Red Blood Cells % 0 %; Platelet Count 211 10^3/cmm (157-399); Red Blood Count 2.92 10^6/uL (3.85-5.65); Red Cell Distribution Width 13.4 % (12.1-15.1); White Blood Count 7.94 10^3/uL (3.29-11.43)
[2024-08-04 08:47] LABS: Alanine Aminotransferase 6 U/L (0-41); Albumin Level 2.8 g/dL (3.5-5.2); Alkaline Phosphatase 94 U/L (40-130); Anion Gap 12.9 (5-19); Aspartate Amino Transferase 8 U/L (0-40); Blood Urea Nitrogen 25 mg/dL (8-23); Calcium 8.6 mg/dL (8.5-10.5); Carbon Dioxide 31 mmol/L (22-29); Chloride 101 mmol/L (98-107); Creatinine Clr Calc Pharmacy 17.4285; Globulin 3.1 g/dL (1.3-4.6); Glucose 172 mg/dL (65-115); Osmolality Calculated 300 mOsm/kg (285-295); Phosphorus 4.3 mg/dL (2.5-4.5); Potassium 3.9 mmol/L (3.5-5.1); Sodium 141 mmol/L (136-145); Total Bilirubin 0.3 mg/dL (0.15-1.2); Total Protein 5.9 g/dL (6.6-8.7)
[2024-08-04 09:26] LABS: NT Pro B Type Natriuretic Pept 37301 pg/mL (0-125)
--- NOTE | 2024-08-04 10:01 | PC.NURSE ---
to hemodialysis room
[2024-08-04 10:02] LABS: Partial Thromboplastin Time 160.5 SECONDS (23.9-36.7)
--- NOTE | 2024-08-04 11:46 | PC.NURSE ---
heparin drip Ptt is 160.5.. notified dr hill per protocol. received order to hold heparin drip and repeat ptt in 4 hrs.
[2024-08-04 12:17] LABS: Glucose Point of Care 134 mg/dL (70-110)
[2024-08-04] MEDS: aspirin 81 mg EC Tablet PO (12:17)
[2024-08-04] MEDS: hyDRALAzine 25 mg Tablet PO ×2 (12:17→14:18)
[2024-08-04] MEDS: metoprolol tartrate 50 mg Tablet 100 MG PO ×2 (12:17→20:24)
[2024-08-04] MEDS: clopidogrel 75 mg Tablet PO (12:18)
--- OUTSIDE RECORDS SUMMARY | 2024-08-04 12:48 | XMS_ITS ---
[facility] Name [facility] Address [address] [place] [address] Phone [phone] Organization [facility] e, NA DOCUMENT DISCLAIMER Multiple document versions may exist, please be sure you review the latest version. The information in the [facility] Continuity of Care Document represents a summary of certain health and medical information. It may not contain the complete medical history for the patient and should be independently verified. The represented time in the document is Eastern Time. PROBLEMS Problem Code Status Onset Date Other disorders of phosphorus metabolism E83.39 Active July 30, 2024 Acute on chronic systolic (c ongestive) heart failure I50.23 Active July 20, 2024 Pleural effusion, not elsewhere classified J90 Active July 20, 2024 Acute respiratory failure with hypoxia J96.01 Ac tive July 20, 2024 Fluid overload, unspecified E87.70 Active July 20, 2024 Secondary hyperparathyroidism of renal origin N25.81 Active July 11, 2024 Shortness of breath R06.02 Active July 11, 2024 Encounter for immunization Z23 Active J anuary 2024 Iron deficiency anemia, unspecified D50.9 Activ e July 11, 2024 Anemia, unspecified D64.9 Active July 11, 2024 Acute kidney failure, unspecified N17.9 Active July 11, 2024 Encounter for screening for respiratory tuberculosis Z11.1 Active July 11, 2024 Coagulation defect, unspecified D68.9 Active July 11, 2024 Pain, unspecified R52 Active June Fever, unspecified R50.9 Active June 272024 Anaphylactic shock, unspecified, initial encounter T78 .2XXA Active July 11, 2024 Allergy, unspecified, initial encounter T78.40XA A ctive July 11, 2024 Personal history of nicotine dependence Z87.891 A ctive July 05, 2024 Dependence on renal dialysis Z99.2 Active July 05, 2024 prison (current) use of oral hypoglycemic drugs Z79 .84 Active July 05, 2024 long term care administrator (current) use of insulin Z79.4 Active July 05, 2024 prison (current) use of aspirin Z79.82 Active July 05, 2024 long term care administrator (current) use of antithrombotics/antiplatelets Z79.02 Active June Chronic kidney disease, unspecified N18.9 Activ e July 05, 2024 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.42 Active Jun uary 2024 Other cardiomyopathies I42.[address] elevation (STEMI) myocard ial infarction of unspecified site I21.3 Active July 05, 2024 Hypertensive heart and chron ic kidney disease with heart failure and stage 1 through stage 4 chronic kidney disease, or unspecified chronic kidney disease I13.0 Active July 05, 2024 Mixed hyperlipidemia E78.2 Active July 05, 2024 Type 2 diabetes mellitus wit h diabetic neuropathy, unspecified E11.40 Active July 05, 2024 Type 2 diabetes mellitus wit h diabetic chronic kidney disease E11.22 Active July 05, 2024 ALLERGIES AND ADVERSE REACTIONS No Known Allergies SOCIAL HISTORY Tobacco Use Status Tobacco Type Never smoker - Caregiver Characteristics No Information Available Characteristics of Home environment No Information Available Gender and Sex Information Gender Identity Sexual Orientation Male Decline to answer MEDICATIONS Prescribed Medications for Dialysis Treatments Medication Instructions Dosage Route Start Date End Date Stat Heparin Sodium (Porcine) 1,000 Units/mL Catheter Lock Arterial Post Dialysis, Every Treatment 2000 units Arterial Red Port July 27, 2024 July 26, 2025 Active Heparin Sodium (Porcine) 1,000 Units/mL Catheter Lock Venous Post Dialysis, Every Treatment 2000 units Venous Blue Port July 27, 2024 July 26, 2025 Active Heparin Sodium (Porcine) 1,000 Units/mL Systemic Bolus, Every Treatment, Total treatment minutes 240 2000 units Intravenous - push July 27, 2024 July 26, 2025 Active Nitroglycerin (Nitroquick) PRN-may repeat x2 chest pain 0.4 mg Sublingual August 03, 2024 August 02, 2025 Active Heparin Sodium (Porcine) 1,000 Units/mL Catheter Lock Arterial Post Dialysis, Every Treatment 2000 units Arterial Red Port July 12, 2024 July 11, 2025 Discontinued Heparin Sodium (Porcine) 1,000 Units/mL Catheter Lock Arterial Post Dialysis, Every Treatment 2000 units Arterial Red Port July 24, 2024 July 23, 2025 Discontinued Heparin Sodium (Porcine) 1,000 Units/mL Catheter Lock Venous Post Dialysis, Every Treatment 2000 units Venous Blue Port July 12, 2024 July 11, 2025 Discontinued Heparin Sodium (Porcine) 1,000 Units/mL Catheter Lock Venous Post Dialysis, Every Treatment 2000 units Venous Blue Port July 24, 2024 July 23, 2025 Discontinued Heparin Sodium (Porcine) 1,000 Units/mL Systemic Bolus, Every Treatment, Total treatment minutes 240 2000 units Intravenous - push July 12, 2024 July 11, 2025 Discontinued Heparin Sodium (Porcine) 1,000 Units/mL Systemic Bolus, Every Treatment, Total treatment minutes 240 2000 units Intravenous - push July 24, 2024 July 23, 2025 Discontinued Tuberculin Purified Protein Derivative (Tubersol) Once 0.1 mL Intradermal July 12, 2024 Discontinued Home Medications Medication Instructions Dosage Route Start Date End Date Status Adult Aspirin Regimen 81 mg Take by mouth once a day 1 tablet ORAL July 12, 2024 Active alprazolam 0.5 mg by mouth three times a day as needed 1/2 tablet ORAL July 12, 2024 Active atorvastatin 80 mg Take by mouth every evening 1 tablet ORAL July 20, 2024 Active ergocalciferol (vitamin D2) 1,250 mcg (50,000 unit) Take by mouth once a week 1 capsule ORAL July 20, 2024 Active furosemide 40 mg Take by mouth once a day 1 tablet ORAL July 20, 2024 Active hydralazine 25 mg Take by mouth three times a day 1 tablet ORAL July 20, 2024 Active insulin aspart (niacinamide) 100 unit/mL (3 mL) Inject subcutaneously three times a day 1 unit SUBCUTANEOUS July 20, 2024 Active ipratropium-albu terol 0.5 mg-3 mg(2.5 mg base)/3 mL Inhale using nebulizer every six hours 1 puff INHALATION July 12, 2024 Active metoprolol tartrate 100 mg Take by mouth twice a day 1 tablet ORAL July 20, 2024 Active Plavix 75 mg Take by mouth once a day 1 tablet ORAL July 12, 2024 Active potassium chloride 10 mEq Take by mouth once a day 2 capsule ORAL July 20, 2024 Active Lipitor 40 mg Take by mouth every night 2 tablet ORAL July 20, 2024 Discontinued ondansetron 4 mg Take on tongue four times a day as needed 1 tablet ORAL July 20, 2024 Discontinued VITAL SIGNS Post-Treatment Vital Signs Vital Sign Value Date / Time Blood Pressure-sitting 131/65 mmHg August 03, 2024 10:17 AM Heart Rate 77 beats per minute August 03, 2024 10:17 AM Respiratory Rate 18 breaths per minute August 03, 2024 10:17 AM Temperature 98.2 deg. F August 03 10:17 AM Weight Vital Sign Value Date / Time Estimated Dry Weight 100.3 kg July 27, 2024 11:59 PM Pre-Dialysis 100.00 kg August 03 10:17 AM Post-Dialysis 100.50 kg August 03 10:17 AM Other Other Value Date / Time Height 177.8 cm July 12, 2024 12:00 AM Body Mass Index 31.66 kg/m2 July 26, 2024 12:55 PM HEALTH CONCERNS Tuberculosis Testing TST Date Administered TST Date Read TST Result 07/12/2024 07/14/2024 Negative (<5) mm LAB RESULTS Hematology Result Type Result Value Relevant Referen ce Range Interpretation Date HGB 8.8 g/dL 14.0 - 18.0 g/dL Low July 23, 2024 RDW 15.4 % 11.5 - 14.5 % High July 23, 2024 MYA 2.2 % 0.0 - 4.0 % - July 23 025 Basophils 3.0 % 0.0 - 1.5 % High July 23 025 RBC 3.05 mill/mcL 4.70 - 6.10 mill/mcL Low July 23, 2024 WBC (No Diff) 6.35 1000/mcL 4.80 - 10.80 1000/mcL - July 23, 2024 HCT 25.9 % 42.0 - 52.0 % Low July 23, 2024 MCHC 33.8 g/dL 30.0 - 36.0 g/dL - July 23, 2024 MCH 28.8 pg 27.0 - 31.0 pg - June Platelets 226 1000/mcL 130 - 400 1000/mcL - 2024 Hemoglobin x 3 26.4 % 42.0 - 54.0 % Low July 23, 2024 Iron 38 mcg/dL 45 - 160 mcg/dL Low June 282024 Monocytes 7.9 % 3.0 - 10.0 % - July 23, 2024 Lymphocytes 26.2 % 19.0 - 48.0 % - June Eosinophil 1.5 % 0.0 - 7.0 % - July 23, 025 Ferritin 271 ng/mL 22 - 322 ng/mL - June Transferrin Sat. (Calc) 16 % 20 - 55 % Low July 23, 2024 TIBC (Calc) 239 mcg/dL 185 - 515 mcg/dL - July 23, 2024 UIBC/TIBC 201 mcg/dL 155 - 355 mcg/dL - July 23, 2024 Neutrophils 59.3 % 40.0 - 75.0 % - June Monocytes 6.3 % 3.0 - 10.0 % - August 01, 2024 Eosinophil 1.4 % 0.0 - 7.0 % - August 01, 2024 Neutrophils 67.5 % 40.0 - 75.0 % - July Lymphocytes 22.2 % 19.0 - 48.0 % - July Transferrin Sat. (Calc) 18 % 20 - 55 % Low August 01 Ferritin 216 ng/mL 22 - 322 ng/mL - July HCT 28.6 % 42.0 - 52.0 % Low July WBC (No Diff) 5.79 1000/mcL 4.80 - 10.80 1000/mcL - August 01, 2024 RBC 3.32 mill/mcL 4.70 - 6.10 mill/mcL Low August 01, 2024 Basophils 1.3 % 0.0 - 1.5 % - August 01, 2024 MYA 1.3 % 0.0 - 4.0 % - August 01, 2024 HGB 9.1 g/dL 14.0 - 18.0 g/dL Low August 01, 2024 Hemoglobin x 3 27.3 % 42.0 - 54.0 % Low uar y 2024 MCHC 32.0 g/dL 30.0 - 36.0 g/dL - August 01, 2024 RDW 14.0 % 11.5 - 14.5 % - July MCH 27.5 pg 27.0 - 31.0 pg - July Platelets 205 1000/mcL 130 - 400 1000/mcL - Febr uary 2024 Iron 44 mcg/dL 45 - 160 mcg/dL Low August 01, 2024 UIBC/TIBC 201 mcg/dL 155 - 355 mcg/dL - August 01, 2024 TIBC (Calc) 245 mcg/dL 185 - 515 mcg/dL - 2024 Metabolic/Renal Result Type Result Value Relevant Referen ce Range Interpretation Date Creatinine, Serum 3.50 mg/dL 0.60 - 1.30 mg/dL High July 23, 2024 Bicarbonate 29 mEq/L 22 - 29 mEq/L - June Chloride 99 mEq/L 96 - 108 mEq/L - June Potassium 4.3 mEq/L 3.5 - 5.1 mEq/L - June 282024 Sodium 138 mEq/L 136 - 145 mEq/L - June 282024 BUN/Creat Ratio 12.0 10.0 - 20.0 - July 23, 2024 BUN 42 mg/dL 6 - 19 mg/dL High July 23, 2024 Hemoglobin A1c 8.4 % 4.8 - 5.9 % High June 282024 BUN, Post 11 mg/dL 6 - 19 mg/dL - July 25, 2024 Hemoglobin A1c 8.0 % 4.8 - 5.9 % High August 01, 2024 BUN, Post 15 mg/dL 6 - 19 mg/dL - August 01, 2024 URR, Calc 73 % 65 - 80 % - August 01 BUN/Creat Ratio 15.4 10.0 - 20.0 - August 01, 2024 Sodium 139 mEq/L 136 - 145 mEq/L - August 01, 2024 Potassium 4.6 mEq/L 3.5 - 5.1 mEq/L - August 01, 2024 Chloride 101 mEq/L 96 - 108 mEq/L - July BUN 56 mg/dL 6 - 19 mg/dL High August 01, 2024 Creatinine, Serum 3.63 mg/dL 0.60 - 1.30 mg/dL High August 01, 2024 Bicarbonate 26 mEq/L 22 - 29 mEq/L - July HD Adequacy Result Type Result Value Relevant Referen ce Range Interpretation Date spKt/V (Daugirdas II) 1.54 No Reference Range Provided - August 01, 2024 eKt/V ([place]) 1.34 No Reference Range Provided - August 01, 2024 Bone/Mineral Result Type Result Value Relevant Referen ce Range Interpretation Date Calcium, Total 8.6 mg/dL 8.4 - 10.2 mg/dL - Wing preethi2024 PTH-Intact, Plasma 263 pg/mL 16 - 80 pg/mL High Shaheed ua2024 Magnesium 2.0 mg/dL 1.6 - 2.6 mg/dL - June 282024 Alkaline Phosphatase 94 U/L 40 - 129 U/L - Ja nuary 2024 Ca x P Product 34 0 - 54 - June Phosphorus 4.0 mg/dL 2.6 - 4.5 mg/dL - June 282024 Calcium, Total 8.7 mg/dL 8.4 - 10.2 mg/dL - 2024 Phosphorus 4.6 mg/dL 2.6 - 4.5 mg/dL High August 01, 2024 Ca x P Product 40 0 - 54 - July Alkaline Phosphatase 105 U/L 40 - 129 U/L - Fe bru2024 Magnesium 2.2 mg/dL 1.6 - 2.6 mg/dL - August 01, 2024 PTH-Intact, Plasma 463 pg/mL 16 - 80 pg/mL High Feb ruary 2024 Liver/Nutrition Result Type Result Value Relevant Reference Range Interpre tation Glucose 199 mg/dL 70 - 100 mg/dL High June Glucose 337 mg/dL 70 - 100 mg/dL High July Total Protein 6.0 g/dL 6.0 - 8.5 g/dL - ua2024 Immunochemistry Result Type Result Value Relevant Reference Range Interpre tation Date HCV s/co ratio 0.07 0.00 - 0.79 - June 282024 Trace Elements Result Type Result Value Relevant Reference Range Interpre tation Date Aluminum < 5 mcg/L 0 - 10 mcg/L - July 23, 2024 Aluminum < 5 mcg/L 0 - 10 mcg/L - August 01, 2024 Infectious Diseases Result Type Result Value Relevant Referen ce Range Interpretation Date HCV Ab (anti-HCV) Nonreactive No Reference R geoffrey Provided - July 23, 2024 Hep B Surface Ab (anti-HBs) < 10 mIU/mL No Reference Range Provided - July 23, 2024 Hep B core Ab Total (anti-HBc) Negative No Reference Range Provided - July 23, 2024 Hep B Surface Ag (HBsAg) Negative No Reference Range Provided - August 01, 2024 DIALYSIS PRESCRIPTION Conventional Hemodialysis Data Element Value Order Date/Time July 27, 2024 Frequency 3X Week Treatment Days MonWedFri Dialyzer 180NRe Optiflux Treatment Time (Total Minutes) 240 min Blood Flow Rate (mL/min) 450 mL/min Dialysate Flow Rate Autoflow 2.0 Estimated Dry Weight 100.3 kg Dialysate Concentrate 3.0 K, 2.5 Ca, 1.0 Mg, 100 Dextrose (N3251) Sodium (mEq/L) 137 mEq/L Bicarb Machine Setting (mEq/L) 35 mEq/L Dialysis Access Hemodialysis-CV Cath eter-Tunneled, Chest, Right Jugular Access Placed on July 11, 2024 IMMUNIZATIONS Vaccine Date Dose Route Status PREVNAR July 23, 2024 0.5 mL Intramuscular Compl eted TRANSPLANT WAITLIST STATUS No Information on Transplant Waitlist Status ADVANCE DIRECTIVES Directive Description Ordered By Effective Date Resuscitation status Full Code Treasure Garza Jun DIALYSIS TREATMENTS Conventional Hemodialysis Date Pre-Treatment Vitals Post-Treatment Lisa ls Duration (hr) BFR (mL/min) Dialysate Dialyzer Dialysis Access Meds Admin Febru preethi 2024 Weight 105.10 kg Weight 102.50 kg 04:08:00 460 3.0 K, 2.5 Ca, 1.0 Mg, 100 Dextrose (N3251) 180nre Optifl ux Blood Pressure-sitting 187/100 mmHg Blood Pressure-sit ting 150/87 mmHg Blood Pressure-standing 193/87 mmHg Blood Pressure-st anding 161/75 mmHg Heart Rate 83 beats per minute Heart Rate 73 beats per minute Respiratory Rate 16 breaths per minute Respiratory Rate 16 breaths per minute Temperature 97.0 deg. F Temperature 97.5 deg. F August 01, 2024 Weight 103.20 kg Weight 100.70 kg 04:04:00 460 3.0 K, 2.5 Ca, 1.0 Mg, 100 Dextrose (N3251) 180nre Optiflux Hemodialysis-CV Catheter-Tunneled, Chest, Right Jugular Access Placed on July 11, 2024 Heparin Sodium (Porcine) 1,000 Units/mL Catheter Lock Arterial; 2000units,Arterial Red Port Heparin Sodium (Porcine) 1,000 Units/mL Catheter Lock Venous; 2000units,Venous Blue Port Heparin Sodium (Porcine) 1,000 Units/mL Systemic; 2000units,Intravenous - push Blood Pressure-sitting 186/101 mmHg Blood Pressure-sit ting 175/89 mmHg Heart Rate 74 beats per minute Blood Pressure-standi ng 180/77 mmHg Respiratory Rate 14 breaths per minute Heart Rate 66 beats per minute Temperature 97.5 deg. F Respiratory Rate 16 breaths per minute - - Temperature 97.7 deg. F August 03, 2024 Weight 100.00 kg Weight 100.50 kg 02:38:00 470 3.0 K, 2.5 Ca, 1.0 Mg, 100 Dextrose (N3251) 180nre Optiflux Hemodialysis-CV Catheter-Tunneled, Chest, Right Jugular Access Placed on July 11, 2024 Heparin Sodium (Porcine) 1,000 Units/mL Catheter Lock Arterial; 2000units,Arterial Red Port Heparin Sodium (Porcine) 1,000 Units/mL Catheter Lock Venous; 2000units,Venous Blue Port Heparin Sodium (Porcine) 1,000 Units/mL Systemic; 2000units,Intravenous - push Nitroglycerin (Nitroquick); 0.4mg,Sublingual Nitroglycerin (Nitroquick); 0.4mg,Sublingual Blood Pressure-sitting 162/77 mmHg Blood Pressure-sit ting 131/65 mmHg Blood Pressure-standing 142/60 mmHg Heart Rate 77 b eats per minute Heart Rate 73 beats per minute Respiratory Rate 18 b reaths per minute Respiratory Rate 16 breaths per minute Temperature 98.2 deg. F Temperature 97.4 deg. F - -
--- OUTSIDE RECORDS SUMMARY | 2024-08-04 12:48 | XMS_ITS ---
Demographics Address [address] [place] [address] [address] [place] [address] Home Phone tel: Preferred Language Unknown Marital Status Unknown Advent Affiliation Unknown Race Unknown Ethnic Group Unknown Author Organization Unknown Vital Signs BpStanding BpSitting BpSupine Date Temperature HeartRate Weight Hei ght Spo2 Respiration Bmi HeadCircumference FieldCount TimeRecorded NeckCircumferen ce WaistCircumference Pulse 197/85 205/95 11/09 00:00 :00 98 223,7.0 0 5,12 98 18 30.7 00:00 73 190/80 11/30 00:00 :00 98 221,1.0 0 5,12 98 18 30.4 00:00 106
--- OUTSIDE RECORDS SUMMARY | 2024-08-04 12:48 | XMS_ITS ---
Author Name Gaytahri Loomis Address [address] [place] [address] Phone [phone] Organization [facility] e, NA DOCUMENT DISCLAIMER Multiple document versions may exist, please be sure you review the latest version. The information in the [facility] Progress Note Document represents a providers documented clinical note containing certain health and medical information. It may not contain the complete medical history for the patient and should be independently verified. The represented time in the document is Eastern Time PROVIDER ROUNDING NOTE REGINO Patient:Yocasta?Ziggy,?1960,?64y,?M Dialysis?Location:?[facility] Attending?Machine Deburrer:?Esdras Service?Date:?07/25/2024 Service?Provider:?Gayathri?Vladislav,?LANDSCAPE AND YARDWORK LABORER I?met?face?to?face?with?the?patient?today. OVERVIEW The?patient?presented?with?REGINO?on?dialysis. 07/26/2024 Comments:?Awaiting?records?with?appropriate?data?for?review.&#160 ;?Will?update?information?upon?receipt He?denies?any?concerns?or?questions?today.??Reporting?m inimal?urinary?output.??Educated?on?avoidance?of?NSAIDS,&#16 0;caffeine,?limit?sodium:?clear?hydration?goal?of?1500?mL&#1 60;daily?as?he?remains?with?low?urinary?output?and?CHF. ??Negative?for?edema?today:?monitor?fluid?stability.? Medications?and?labs?reviewed. HOME?MEDICATIONS Home?Medications:? ??hydralazine?25?mg,?by?mouth,?Take?1?tablet?three?times?a?day ??ergocalciferol?(vitamin?D2)?(ergocalciferol?(vitamin?d2))? 1,250?mcg?(50,000?unit),?by?mouth,?Take?1?capsule?once a?week ??potassium?chloride?10?mEq,?by?mouth,?Take?2?capsule?once?a?day ??metoprolol?tartrate?100?mg,?by?mouth,?Take?1?tablet?twice?a?day ??insulin?aspart?(niacinamide)?100?unit/mL?(3?mL),?subc utaneously,?Inject?1?unit?three?times?a?day?3?times&#16 0;daily?after?meals?based?on?sliding?scale ??furosemide?40?mg,?by?mouth,?Take?1?tablet?once a?day ??atorvastatin?80?mg,?by?mouth,?Take?1?tablet?every?evening ??ipratropium-albuterol?0.5?mg-3?mg(2.5?mg?base)/3?mL,? using?nebulizer,?Inhale?1?puff?every?six?hours?PRN ??Plavix?(clopidogrel)?75?mg,?by?mouth,?Take?1?tablet?once?a?day ??Adult?Aspirin?Regimen?(aspirin)?81?mg,?by?mouth, Take?1?tablet?once?a?day ??alprazolam?0.5?mg,?by?mouth,?1/2?tablet?three?times?a?day?as?needed Allergies:? ??No?Known?Allergies LAST?HOSPITALIZATION Discharge?Diagnosis:?R06.02?Shortness?of?breath E87.70?Fluid?overload,?unspecified J96.01?Acute?respiratory?failure?with?hypoxia J90?Pleural?effusion,?not?elsewhere?classified I50.23?Acute?on?chronic?systolic?(congestive)?heart?failure Admission?Date?07/17/24 Discharge?Date?07/19/24 Comments:?Awaiting?hospital?records?to?review DIALYSIS?PRESCRIPTION ??IHD?3x?Week?Start?date:?07/27/24 ??Dialyzer:?180NRe?Optiflux ??BFR:?450 ??DFR:?Autoflow?2 ??Potassium:?3.0 ??Sodium:?137 ??EDW:?100.3 ??Duration:?4:00 ??Calcium:?2.5 ??Bicarb:?35 ??Rx?updated?on:?07/26/2024 TREATMENT?ASSESSMENT BP?Stand?Pre ??07/25/2024:?171/88 ??07/23/2024:?179/93 BP?Sit?Pre ??07/25/2024:?146/109 ??07/23/2024:?182/89 ??07/21/2024:?187/91 BP?Stand?Post ??07/25/2024:?182/79 ??07/23/2024:?170/86 ??07/21/2024:?164/73 BP?Sit?Post ??07/25/2024:?169/89 ??07/23/2024:?168/85 ??07/21/2024:?182/95 Tx?Duration ??07/25/2024:?4:01 ??07/23/2024:?2:53 ??07/21/2024:?4:05 Missed?Treatments 1?-?last?30?days 1?-?last?60?days 1/30?-?recent FLUID?ASSESSMENT Comments:?He?is?under?EDW,?without?edema?or?SOB.? EDW?(kg) ??07/25/2024:?100.5 ??07/23/2024:?101.7 ??07/21/2024:?101.7 Weight?Pre?(kg) ??07/25/2024:?101.4 ??07/23/2024:?101.3 ??07/21/2024:?100.7 Weight?Post?(kg) ??07/25/2024:?100.3 ??07/23/2024:?100.2 ??07/21/2024:?100.5 PWV?(kg) ??07/25/2024:?-0.2 ??07/23/2024:?-1.5 ??07/21/2024:?-1.2 UF?Rate?(mL/kg/hr) ??07/25/2024:?2.7 ??07/23/2024:?3.8 ??07/21/2024:?0.5 ADEQUACY?ASSESSMENT Comments:?Hx?CKD:?awaiting?most?current?records?to?review&#1 60;for?baseline?to?assess?recovery.? Creatinine ??07/23/2024:?3.5 ACCESS?ASSESSMENT ??Access?Type:?CVCatheter ??Access?SubType:?Tunneled ??Access?Status:?Active?(In?Use)?-?07/11/2024 ??Access?Location:?Chest ??Placed:?07/11/2024 Vascular?access?reviewed. ANEMIA?ASSESSMENT Comments:?ELROY?and?Iron?algorithms?initiated?for?monitoring?a nd?replacement?therapies?to?begin HGB,?TSAT ??07/23/2024:?8.8,?16.0 ?? Ferritin ??07/23/2024:?271.0 BMM?ASSESSMENT PTH?controlled.?Calcium?controlled.?Phosphorus?controlled.? PTH,?Intact ??07/23/2024:?263.0 ?? Calcium,?Phosphorus ??07/23/2024:?8.6,?4.0 ?? Magnesium ??07/23/2024:?2.0 NUTRITION?ASSESSMENT Potassium?controlled.? Potassium ??07/23/2024:?4.3 PHYSICAL?EXAM Exam?Not?Performed. DIAGNOSIS Chief?Complaint:?N17.9?Acute?kidney?failure,?unspecified Patient?data?updated?07/26/2024?at?7:56?PM Signed?By:?Vladislav,?Gayathri,?LANDSCAPE AND YARDWORK LABORER??on?07/26/2024?8:06:36 PM END OF DOCUMENT
--- OUTSIDE RECORDS SUMMARY | 2024-08-04 12:48 | XMS_ITS ---
Author Organization [facility] Billing Info Address [address] [place] [address] Care Team Providers Care Stave And Bolt Equalizer Name Role Phone SUNITA RADHA Salas [phone] Encounters Encounter Location Date Provider Diagnosis [id number] [address] [place], [place] [id number] 05/14/2024 RADHA DORSEY Plan Of Treatment No Information Progress Notes * JETHROIke Leeew GDOB: (64 yo M)Acc No.[id number]:05/14/2024 PROGRESS NOTE Patient:?Cam MORELOS Provider:?RADHA DORSEY APRN :1960???Age:64 Y???Sex:Male Hardeep e:05/14/2024 ?CHN#:[id number] Address:[address] [place] [address], [address], [id number] Subjective: * Chief Complaints: * ??? * Medical History:?? Objective: * Vitals:? Assessment: Plan: * Treatment: * * This progress note has not b een verified nor is it considered complete until locked and signed by the provider. Sign off status: Pending * Provider:?RADHA DORSEY APRN Date:? Generated for Pham swenson/Suleman/eTransmitting on:?08/04/2024 12:48 PM WEIR FISHER
--- OUTSIDE RECORDS SUMMARY | 2024-08-04 12:48 | XMS_ITS ---
Author Organization [facility] Billing Info Address [address] [place] [address] Care Team Providers Care It Sales Executive Name Role Phone SUNITA RADHA Salas [phone] Encounters Encounter Location Date Provider Diagnosis [id number] [facility] [address] [place], [place] [id number] 05/21/2024 RADHA DORSEY Plan Of Treatment No Information Progress Notes * JETHROIke Leeew GDOB: (64 yo M)Acc No.[id number]:05/21/2024 PROGRESS NOTE Patient:?Cam MORELOS Provider:?RADHA DORSEY APRN :1960???Age:64 Y???Sex:Male Hardeep e:05/21/2024 ?CHN#:[id number] Address:[address] [place] [address], [address], [id number] Subjective: * Chief Complaints: * ??? * Medical History:?? Objective: * Vitals:? Assessment: Plan: * Treatment: * * This progress note has not b een verified nor is it considered complete until locked and signed by the provider. Sign off status: Pending * Provider:?RADHA DORSEY APRN Date:? Generated for Pham swenson/Suleman/eTransmitting on:?08/04/2024 12:48 PM CODE ENFORCEMENT SUPERVISOR
--- OUTSIDE RECORDS SUMMARY | 2024-08-04 12:49 | XMS_ITS | Encounter Summary ---
Author Organization [employer] Address [address] [place] [address] Care Team Providers Care Atmospheric Scientist Name Role Phone Unavailable Primary Care Provider Unavailabl e Encounter Details Date Type Department Care Team (Late st Contact Info) Description 07/17/2024 External Device Data [facility] Provider, Abstract NO ADDRESS ON FILE Social History Tobacco Use Types Packs/Day Years Used Date Smoking Tobacco: Former Cigarettes Alcohol Use Standard Drinks/Week Comments Not Currently 0 (1 standard drink = 0.6 oz pur e alcohol) Feeling Safe Answer Date Recorded Are you in a relationship wi th someone who hurts you emotionally and/or physically? No 06/11/2024 Transportation Needs Answer Date Record ed Social/Environmental Concerns Housing in stability;Homeless;Other (Comment) 09/02/2023 Housing Stability Answer Date Recorded Social/Environmental Concerns Housing in stability;Homeless;Other (Comment) 09/02/2023 Sex and Gender Information Value Date Recorded Sex Assigned at Not on file Legal Sex Male 6:32 AM ACCOUNTS COLLECTOR Gender Identity Not on file Sexual Orientation Not on file documented as of this encounter Plan of Treatment Not on file documented as of this encounter Visit Diagnoses Not on filedocumented in this encounter
--- OUTSIDE RECORDS SUMMARY | 2024-08-04 12:49 | XMS_ITS | Clinical Summary ---
Author Organization Carlita Flanagan unty Address [address] [place] [address] Phone Care Team Providers Care Installations Inspector Name Role Phone Unavailable Primary Care Provider Unavailabl e Allergies No known active allergies Medications furosemide (LASIX) 40 mg tablet Take 40 mg by mouth daily. Active hydrALAZINE (APRESOLINE) 25 mg tablet Take 25 mg by mouth 3 times daily. 2 tablets 3 times a day. Active clopidogrel bisulfate (CLOPIDOGREL ORAL) Take 100 mg by mouth daily. Active aspirin (ECOTRIN EC) 81 mg Tablet, Delayed Release (E.C.) Take 81 mg by mouth daily. Active metoprolol tartrate (LOPRESSOR) 50 mg tablet Take 50 mg by mouth 2 times daily. Active atorvastatin (LIPITOR) 20 mg tablet Take 20 mg by mouth daily. Active DULoxetine (CYMBALTA) 30 mg Capsule, Delayed Release(E.C.) Take 30 mg by mouth daily. Active metFORMIN (GLUCOPHAGE) 500 mg tablet Take 500 mg by mouth 2 times daily with meals. Active insulin glargine (LANTUS) 100 unit/mL injection Inject 20 Units by subcutaneous injection one time only. Active prochlorperazin e maleate (COMPAZINE) 10 mg tablet Take 1 Tablet (10 mg) by mouth every 6 hours as needed for Nausea/Emesis. 20 Tablet 4 Active bumetanide (BUMEX) 1 mg tablet Take 3 mg by mouth daily. 4 Active famotidine (PEPCID) 20 mg tablet Take 20 mg by mouth 2 times daily. Active hydroCHLOROthia zide 25 mg tablet Take 25 mg by mouth daily. Active insulin aspart U-100 (NovoLOG) 100 unit/mL vial Inject 0-6 Units by subcutaneous injection daily. Active insulin regular (HUMULIN R,NOVOLIN R) 100 unit/mL vial Inject by subcutaneous injection 3 times daily before meals. Active isosorbide dinitrate (ISORDIL) 10 mg tablet Take 10 mg by mouth. 4 Active Active Problems Problem Noted Date Diagnosed Date Stage 3b chronic kidney disease 10/12/2023 Hyperglycemia due to diabetes mellitus 4 Elevated d-dimer 10/12/2023 Large pleural effusion 10/12/2023 NSTEMI (non-ST elevated myocardial infarction) 0 09/08/2023 Type 2 diabetes mellitus with hyperglycemia 01/2024 Acute on chronic congestive heart failure 2023 Accelerated hypertension 09/02/2023 TIA (transient ischemic attack) 09/03/2020 Essential hypertension 03/09/2017 GERD (gastroesophageal reflux disease) 3 Hyperlipidemia 06/04/2010 Overview (09/02/2023): Identified By: Cayden Joyce Encounters Date Type Department Care Team Description 07/18/2024 External Device Data [facility] ABSTRACTION Provider, Abstract 07/17/2024 External Device Data [facility] ABSTRACTION Provider, Abstract 07/16/2024 - 07/16/2024 11:59 PM TIMBER BUCKER Hospital Encounter [facility] [id number] [place] [address] [facility] 07/13/2024 Abstract [facility] [place] [address] 3rd [place] [address] Provider, Abstract 06/29/2024 - 06/29/2024 11:59 PM TIMBER BUCKER Hospital Encounter [facility] [place] [address] [place] [address] [facility] Discharge Disposition: [facility] 06/12/2024 External Device Data [facility] ABSTRACTION Provider, Abstract 06/11/2024 6:14 PM TIMBER BUCKER - 06/11/2024 6:45 PM TIMBER BUCKER Emergency [facility] [address] [place] [address] Khurram Ewing DO Cellulitis of right lower extremity (Primary Dx) Discharge Disposition: Home or Self Care 06/11/2024 Travel from Last 3 Months Family History Medical History Relation Name Comments Kidney Disease Father Heart Disease Maternal Grandfather Heart Disease Maternal Grandmother Heart Disease Mother Relation Name Status Comments Father Maternal Grandfather Maternal Grandmother Mother Social History Tobacco Use Types Packs/Day Years Used Date Smoking Tobacco: Former Cigarettes Tobacco Cessation:Counseling Given: Not Answered Alcohol Use Standard Drinks/Week Comments Not Currently [...] on file Legal Sex Male 6:32 AM TIMBER BUCKER Gender Identity Not on file Sexual Orientation Not on file Last Filed Vital Signs Vital Sign Reading Time Taken Comments Blood Pressure 221/102 06/11/2024 6:20 PM TIMBER BUCKER Pulse 85 11/25/2023 11:30 PM CDT Temperature 36.7 ??C (98.1 ??F) 06/11/2024 6:20 PM CS T Respiratory Rate 20 06/11/2024 6:20 PM TIMBER BUCKER Oxygen Saturation 99% 06/11/2024 6:20 PM TIMBER BUCKER Inhaled Oxygen Concentration - - Weight 101.1 kg (222 lb 12.8 oz) 11/25/2023 9:19 PM CDT Height 175.3 cm (5' 9 ) 11/25/2023 9:19 PM CDT Body Mass Index 32.9 11/25/2023 9:19 PM CDT Plan of Treatment Health Maintenance Due Date Last Done Comments DIABETES MICROALBUMIN ANNUAL SCREEN 1979 FIT-DNA Q 3 years 2006 FIT/FOBT Q 1 year 2006 Flex Sig/CT Colonography Q 5 years 2006 ZOSTER VACCINE (1 of 2) 2011 DIABETES ANNUAL RETINAL EXAM 10/08/2016 10/09/2015 DIABETES ANNUAL FOOT EXAM 03/09/2018 03/09/2017 COLORECTAL SCREENING 07/03/2020 07/03/2010 Colorectal Cancer Screening 07/03/2020 RSV VACCINE (60+ or ) (1 - Risk 60-74 years 1-dose series) 2021 INFLUENZA VACCINE (#1) 2024 7, 03/08/2016, 03/08/2016, Additional history exists [place] ([place] Preventative Visit/Annual Wellness Visit 06/27/2024 LDL CHOLESTEROL ANNUAL 09/02/2024 09/03/2023 DIABETES HBA1C Q 6 MONTHS 01/20/20252024, 01/22/2024, 09/03/2023, Additional history exists DTAP/TDAP/TD VACCINES (3 - T d or Tdap) 07/19/2025 07/19/2015, 01/06/2007 Abdominal Aortic Aneurysm (A AA) Screening Completed 02/22/2024, 02/22/2024, 03/18/2015 Procedures Procedure Name Priority Date/Time Associated Diagnosis Comments LIPID PANEL Routine 09/03/2023 7:15 AM TIMBER BUCKER HEMOGLOBIN A1C Routine 09/03/2023 7:15 AM TIMBER BUCKER from Last 3 Months or Most Recently Relevant to Health Maintenance Results * (ABNORMAL) HEMOGLOBIN A1C (09/03/2023 7:15 AM TIMBER BUCKER) HEMOGLOBIN A1C 11.4(H) <=5.6 % 09/03/2023 7:44 AM TIMBER BUCKER [facility] EST. AVG GLUCOSE, A1C 280 mg/dL 09/03/2023 7:44 AM TIMBER BUCKER [facility] Blood Venipuncture / Unknown 09/03/2023 7:15 AM TIMBER BUCKER 09/03/2023 7:24 AM TIMBER BUCKER Narrative [facility] - 09/03/2023 7:44 AM TIMBER BUCKER HGB A1C INTERPRETATION NORMAL: ? <5.7% PRE-DIABETES: 5.7 - 6.4% DIABETES: ? 6.5% OR GREATER David Abrams MD CHEMISTRY ORDERABLES Final Result [facility] # [id number] [address] [place] [id number] * (ABNORMAL) LIPID PANEL (09/03/2023 7:15 AM TIMBER BUCKER) [facility] Signature CHOLESTEROL 300(H) <200 mg/dL 09/03/2023 2:53 PM [facility] [employer] [facility] TRIGLYCERIDE 167(H) <150 mg/dL 09/03/2023 2:53 PM [facility] HDL 40 40 - 59 mg/dL 09/03/2023 2:53 PM [facility] LDL CALCULATED 227(H) <100 mg/dL 09/03/2023 2:53 PM [facility] NON-HDL CHOLESTEROL 260(H) <130 mg/dL 09/03/2023 2:53 PM [facility] [employer] [facility] Blood Venipuncture / Unknown 09/03/2023 7:15 AM TIMBER BUCKER 09/03/2023 7:25 AM TIMBER BUCKER [facility] [employer] [facility] - 09/03/2023 2:53 PM TIMBER BUCKER TOTAL CHOLESTEROL ??mg/dL ??Desirable <200 ??Borderline high 200-239 ??High >=240 TRIGLYCERIDES ??mg/dL ??Normal <150 ??Borderline high 150-199 ??High 200-499 ??Very high >=500 HDL CHOLESTEROL ??mg/dL ??Low <40 ??Normal 40-59 ??Desirable >=60 NON HDL CHOLESTEROL mg/dL ??Optimal <130 ??Near Optimal 130-159 ??Borderline High 160-189 ??Very High >=190 CALCULATED LDL mg/dL ??LDL <70, OPTIMAL if have Atherosclerotic cardiovascular disease (ASCVD) ??or intermediate or higher (>7.5%) 10 year risk of ASCVD including most adults ??with diabetes. ??LDL <100, Optimal in adult patients with low (<7.5%) 10 year ASCVD risk ??LDL 100-160, Suboptimal ??LDL >160, High ??LDL >190, Very high ATPIII Guidelines Reference Ranges for Lipid Panels (NCEP/AMA) . David Abrams MD CHEMISTRY ORDERABLES Final Result Performing Organization Address City/State/[facility] Co de Phone Number [facility] # [id number] [address] [place] [address] from Last 3 Months or Most Recently Relevant to Health Maintenance Insurance MEDICARE PART A AND B [facility] [id number] [facility] MEDICAID [place] Advance Directives For more information, please contact: [phone] * Full Code (Latest Code Status on File) Date Activated Date Inactivated Comments 09/02/2023 7:37 PM 09/06/2023 2:53 PM
--- OUTSIDE RECORDS SUMMARY | 2024-08-04 12:49 | XMS_ITS | Patient Health Record ---
Author Organization [facility] Billing Info Address [address] [place] [address] Care Team Providers Care Lens Molding Equipment Operator Name Role Phone [place] Unavailable [phone] RADHA DORSEY [phone] Reason For Referral No Information Encounters Encounter Location Date Provider [id number] [address] [place] [address] [id number] 03/28/2024 SIRIA MANCIABURN [id number] [address] [place] [address] [id number] 03/30/2024 SIRIA MANCIABURN [id number] [address] [place] [address] [id number] 05/03/2024 SIRIA MANCIABURN [id number] [facility] [address] [place] [address] [id number] 05/03/2024 SIRIA MANCIABURN [id number] [facility] [address] [place] [address] [id number] 05/04/2024 RADHA DORSEY [id number] [facility] [address] [place] [address] [id number] 05/07/2024 RADHA DORSEY [id number] [facility] [address] [place] [address] [id number] 05/08/2024 RADHA DORSEY [id number] [facility] [address] [place] [address] [id number] 05/09/2024 RADHA DORSEY [id number] [facility] [address] [place] [address] [id number] 05/10/2024 RADHA DORSEY [id number] [facility] [address] [place] [address] [id number] 05/11/2024 RADHA DORSEY [id number] [facility] [address] [place] [address] [id number] 05/14/2024 RADHA DORSEY [id number] [facility] [address] [place] [address] [id number] 05/21/2024 RADHA DORSEY [id number] [facility] [address] [place] [id number] 04/02/2024 RADHA DORSEY [id number] [facility] [address] [place] [address] [id number] 04/03/2024 RADHA DORSEY [id number] [facility] [address] [place] [id number] 04/04/2024 RADHA DORSEY [id number] [facility] [address] [place] [address] [id number] 04/05/2024 RADHA DORSEY [id number] [facility] [address] [place] [address] [id number] 04/10/2024 RADHA DORSEY [id number] [facility] [address] [place] [address] [id number] 03/29/2024 RADHA DORSEY [id number] [facility] [address] [place] [address] [id number] 03/30/2024 RADHA DORSEY [id number] [facility] [address] [place] [address] [id number] 03/27/2024 RADHA DORSEY [id number] [facility] [address] [place] [address] [id number] 03/28/2024 RADHA DORSEY Plan Of Treatment No Information Insurance Providers Payer Name Payer Address Payer Phone Subscriber Number Group Number Insured Name Patient Relationship to Insured Coverage Start Date Coverage End Date [employer] HMO MEDICARE ADVG PLAN [address] [place], [place] [id number] Cam Higuera Self - patient is the insured 4 4
--- OUTSIDE RECORDS SUMMARY | 2024-08-04 12:49 | XMS_ITS ---
Author Organization [facility] Billing Info Address [address] [place] [address] Care Team Providers Care Oxygen Therapy Technician Name Role Phone SUNITA RADHA Salas [phone] Encounters Encounter Location Date Provider Diagnosis [id number] [address] [place], [place] [phone] 05/11/2024 RADHA DORSEY Plan Of Treatment No Information Progress Notes * JETHROIke Leeew GDOB: (64 yo M)Acc No.[id number]:05/11/2024 PROGRESS NOTE Patient:?Cam MORELOS Provider:?RADHA DORSEY APRN :1960???Age:64 Y???Sex:Male Hardeep e:05/11/2024 ?CHN#:[id number] Address:[address] [place] [address], [address], [id number] Subjective: * Chief Complaints: * ??? * Medical History:?? Objective: * Vitals:? Assessment: Plan: * Treatment: * * This progress note has not b een verified nor is it considered complete until locked and signed by the provider. Sign off status: Pending * Provider:?RADHA DORSEY APRN Date:? Generated for Pham swenson/Suleman/eTransmitting on:?08/04/2024 12:48 PM CLUB WAITER/WAITRESS
--- OUTSIDE RECORDS SUMMARY | 2024-08-04 12:49 | XMS_ITS | Continuity of Care Document ---
Author Organization [facility] Address [address] [place] [address] Phone Care Team Providers Care Certified Coatings Inspector Name Role Phone Stevie Aaron OD Unavailable [...] Active DISREGARD PREVIOUS RX. THANK YOU BS Lantus U-100 Insulin 100 unit/mL subcutaneous solution inject 80 Unit SC Q AM; 60 units Q PM - Active BD Insulin Syringe Ultra-Fine 1 mL 31 gauge x 5/16 use as directed. - Active Procedures Procedure Date Glu; Bld [...] Diagnoses Date Provider Providers Copied on Encounter [facility], [address], [place], [id number], [place] tel:[phone] Formerly [facility] No Information 1 Agnieszka Hubbard. [address] [place], [place], [id number], [place]. tel:[phone] [facility], [address], [id number], [place] tel:[phone] [facility] No Information 9 No Information [facility], [address] [place] [address], [id number], [place] tel:[phone] [facility] No Information 9 No Information [facility], [address], [id number], [place] tel:[phone] [facility] No Information 9 No Information [facility], [address] [place] [address], [id number], [place] tel:[phone] [facility] No Information 9 No Information [facility], [address] [place], [place], [id number], [place] tel:[phone] [facility] No Information 9 No Information [facility], [address], [id number], [place] tel:[phone] [facility] No Information 9 No Information [facility], [address] [place] [address], [id number], [place] tel:[phone] [facility] No Information 9 No Information Offic/outpt E&m Estab Low-mod [facility], [address], [id number], [place] tel:[phone] [facility] Toe pain (chief complaint)d iabetes (chief complaint) Dietary Counseling and SurveillanceOb elsa (Adult BMI: 34 - 35)Need for hepatitis A and B vaccinationToe pain, leftInsulin dependent diabetes mellitusLong term (current) use of insulinEssenti al hypertensionH. pylori infection 9 No Information Offic/outpt E&m Estab Low-mod [facility], [address], [place], [id number], [place] tel:[phone] [facility] healthcare follow up (chief complaint) Dietary Counseling and SurveillanceOb elsa (Adult BMI: 35 - 36)H. pylori infectionInsul in dependent diabetes mellitusLong term (current) use of insulinEssenti al hypertensionCh ronic obstructive pulmonary disease, unspecified COPD typeBlack stool 9 No Information Offic/outpt E&m Estab Mod-hi 2 [facility], [facility], [place], [id number], [place] tel:[phone] [facility] chest pain (chief complaint)B lack stool (chief complaint)d iabetes (chief complaint) Dietary Counseling and SurveillanceOb elsa (Adult BMI: 36 - 37)Black stoolNeed for hepatitis A and B vaccinationIns ulin dependent diabetes mellitusLong term (current) use of insulinDisabil ity examinationFun ctional dyspepsiaEncou nter for screening for malignant neoplasm of colonChest pressure 9 No Information [facility], [address] [place] [address], [id number], [place] tel:[phone] [facility] No Information 9 No Information [facility], [address] [place] [address], [id number], [place] tel:[phone] [facility] No Information 9 No Information Offic/outpt E&m Estab Minor 10 [facility], [address], [place], [id number], [place] tel:[phone] [facility] diabetes follow up (chief complaint)r eflux follow up (chief complaint) Dietary Counseling and SurveillanceOb elsa (Adult BMI: 37 - 38)Essential hypertensionIn sulin dependent diabetes mellitusLong term (current) use of insulinGastroe sophageal reflux disease, esophagitis presence not specified 8 No Information [facility], [address] [place] [address], [id number], [place] tel:[phone] [facility] No Information 8 No Information Offic/outpt E&m Estab Mod-hi 2 [facility], [address] [place] [address], [id number], [place] tel:[phone] [facility] Diabetes (chief complaint) Dietary Counseling and SurveillanceOb elsa (Adult BMI: 35 - 36)Insulin dependent diabetes mellitusLong term (current) use of insulinEssenti al hypertensionHi story of strokeGastroes ophageal reflux disease, esophagitis presence not specifiedDepre ssion, unspecified depression typeImmunizati on due 8 No Information [facility], [address] [place] [address], [id number], [place] tel:[phone] [facility] diabetes (chief complaint)e ar pressure (chief complaint) Dietary Counseling and SurveillanceOb elsa (Adult BMI: 37 - 38)Insulin dependent diabetes mellitusLong term (current) use of insulinEssenti al hypertensionNe ed for hepatitis A and B vaccinationHig h triglyceridesP ressure sensation in right ear 8 No Information [facility], [address] [place] [address], [id number], [place] tel:[phone] [facility] Dental caries on smooth surface penetrating into pulpChronic periodontitis, generalized, moderate 8 No Information [facility]pt [facility], [address] [place] [address], [id number], [place] tel:[phone] [facility] Fishing license request (chief complaint)D iabetes (chief complaint) Insulin dependent diabetes mellitusNeed for hepatitis C screening testEssential hypertension 8 No Information OFFICE/OUTPA TIENT VISIT, [facility], [address] [place] [address], [id number], [place] tel:[phone] [facility] Establish care (chief complaint) Dietary [...] Record Payers Payer name Insurance type Covered republican ID Authoriza tisanjuana(s) ZMedicare MB [id number] [facility] MCare Prim [id number] Code 18 2016 [id number] [employer]ic[employer] MB [id number] [facility] MCare Prim [id number] Code 18 2016 [id number] [employer] [id number] [facility] MC[employer] Prim [id number] Code 18 2016 [id number] Social History Type Description Quantity Date Captured Comments Alcohol Use Details Unknown Caffeine Use Details Unknown Tobacco Use Status No Information Smoking Status No Information Sex Male Sexual Orientation Straight or heterosexual Gender Identity Male Chief Complaint And Reason For Visit No Information Reason For Referral Reason For Referral No Information Plan Of Treatment Date Type Action Status Goal Creatinine. Due on 21 due Goal Low-dose CT for Lung CA Scrn. Due on due Goal Lipid Panel. Due on 019 due Goal Dilated Retinal Exam. Due on due Goal Foot Exam. Due on due Goal Hemoglobin A1c. Due on due Goal Microalb/Creat R atio, Randm Ur. Due on due Goal BMP. Due on due Goal Comprehensive Me tabolic Panel. Due on due Goal Low-dose CT for Lung CA Scrn. Due on due Goal Foot Exam. Due on 9 due Goal Dilated Retinal Exam. Due on due Goal Diet Education completed Goal Diet Education completed Goal Dilated Retinal Exam. Due on due Goal Foot Exam. Due on 9 due Goal Low-dose CT for Lung CA Scrn. Due on due Goal Diet Education completed Goal Diet Education completed Goal Hemoglobin A1c. Due on due Goal [...] Foot Exam. Due on 8 due Goal Low-dose CT for Lung CA Scrn. Due on due Goal Low-dose CT for [...] Foot Exam. Due on 8 due Goal Hep C Ab w/Rflx to Hep C RNA, PCR w/Rflx to Genotype, LIPA. Due on due Goal Creatinine. Due on 18 due Goal Hemoglobin A1c. Due on due Goal BMP. Due on due Goal Dilated Retinal Exam. Due on due Goal Low-dose CT for Lung CA Scrn. Due on due Goal Hemoglobin A1c. Due on due Goal Low-dose CT for Lung CA Scrn. Due on due Goal Lipid Panel. Due on 018 due Goal BMP. Due on due Goal Hep C Ab w/Rflx to Hep C RNA, PCR w/Rflx to Genotype, LIPA. Due on due Goal Microalb/creat r atio. Due on due Goal Foot Exam. Due on 8 due Goal Creatinine. Due on 18 due Goal Dilated Retinal Exam. Due on due Goal Smoking cessation education completed Goal Diet Education completed Goal Diet Education completed Goal Smoking cessation education completed Goal Diet Education completed Goal Diet Education completed Referral Ordered: X-ray little toe left foot Left ordered Referral Ordered: Rad Exam Chest 2 Views ordered Referral Ordered: Cardiology Referral ordered Future Order: Lab Order C-Peptid e ([id number]), Sent on: Sent Future Order: Lab Order Hgb A1c with MBG Estimation ([id number]), Sent on: Sent History Of Present Illness Encounter Date Complaint History Of Prese nt Illness diabetes (comments) He's also ta jeny Gabapentin 300 mg three capsules three times every day. His BS reading this morning was 117. diabetes The diabetes fred litus began in [...] injury but believes it may be fractured. healthcare follow up The patient is here to discuss lab results from 10/12/18. No acute medical concerns at this time. chest pain The patient pres ents with [...] arm. He has been followed by a assistant teacher in the past but not currently. diabetes The diabetes fred litus began in 2000. Risk factors include: obesity. Patient is compliant with using medication. He Has been managed with oral medications. Home glucose readings: Min 120, Max 184 Comorbidity: Hypertension. Additional information: The patient is requesting completion of [facility] paperwork. Black stool The patient has noticed dark spots in his stool and has seen bright red blood on the toilet paper in the past. He has a history of diverticulitis and had a colonoscopy performed (2008) while living in [place]. Pt states the colonoscopy showed benign polyps and he was placed on antibiotics. He also had an endoscopy performed and was diagnosed with reflux disease. Pt was told to manage his issues with diet and was placed on omeprazole. Pt is currently taking omeprazole 20 mg take one tablet at bedtime. diabetes (comments) He was last employed in 2004 and due to complications from his diabetes cannot maintain gainful employment. The patient is currently taking Lantus U-100 80 units in the AM and 60 units in the PM, metformin 1000 mg one tablet twice a day, gabapentin 300 mg three capsules three times every day and Novolog U-100 units per provider's instructions. diabetes follow up The patient i s currently taking Lantus U-100 80 units in the AM and 60 units in the PM, metformin 1000 mg one tablet twice a day, gabapentin 300 mg three capsules three times every day and Novolog U-100 per provider's instructions. reflux follow up He had been liseth ing ranitidine 300 mg one tablet at bedtime, but had to stop it because it made him nauseous. Pt is requesting a change in medication for his reflux. Diabetes The diabetes fred hoffman began in 2000. Risk factors include: obesity. Comorbidity: Hypertension. Additional information: The patient states he needs refills of all his medications as he has run out of everything. He left the area to be with family in [place] and recently came back to [facility]. Diabetes (comments) He has not b een seen by a medical provider since last evaluated by the Cookie Pillai on 01/27/18. No acute medical concerns at this time. diabetes (comments) He denies rudolph ving episodes where he feels shaky or dizzy. Pt tests his blood sugar regularly. He has a history of sleep apnea and received sleep apnea equipment in the past. After the patient lost 100 lbs, he was rechecked for sleep apnea in [place] and was informed he did not need equipment at this time. Pt moved to [facility] two months ago from [place], to stay with a friend. He denies using illicit substances. ear pressure Over two months ago while living in [place], the patient fell and struck the right side of his face on concrete. He denies losing consciousness during the fall. Since that time he's noticed a pressure in his right ear, that's worse when coming down from high elevations. diabetes Risk factors inc lude: obesity. Patient is compliant with using medication, and follow-up. Comorbidity: Hypertension. Additional information: The patient is here to discuss his baseline lab results from 01/13/18. He's currently taking Lantus 80 units in the morning and 60 units in the evening in addition to Novolog sliding scale and Metformin 1000 mg one tablet twice a day. Diabetes Risk factors inc lude: obesity. Patient [...] this treatment was started while living in [place]. His average BG include: 150-250. Today his fasting BG was 175. About 5 days ago he had a reading of 95.. 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 He presents with paperwork in hopes of obtaining a free fishing license. Establish care Active medicatio ns: clopidogrel 75 [...] allergies: noneSocial Hx: the patient moved to [facility] 3 days ago from [place]. Pt receives SSI benefits (started in 2011). 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 Pt is [...] drinks. For more information you can visit [email or web address]. Related to Dietary Counseling and Surveillance Diet [...] drinks. For more information you can visit [email or web address]. Related to Dietary Counseling and Surveillance Diet [...] drinks. For more information you can visit [email or web address]. Related to Dietary Counseling and Surveillance Diet [...] drinks. For more information you can visit [email or web address]. Related to Dietary Counseling and Surveillance Diet [...] drinks. For more information you can visit [email or web address]. Related to Dietary Counseling and Surveillance Diet [...] drinks. For more information you can visit [email or web address]. Related to Dietary Counseling and Surveillance Diet [...]
--- OUTSIDE RECORDS SUMMARY | 2024-08-04 12:49 | XMS_ITS | Encounter Summary ---
Author Organization [facility] Address 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
--- OUTSIDE RECORDS SUMMARY | 2024-08-04 12:49 | XMS_ITS | Encounter Summary ---
Author Organization [facility] Address 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
--- OUTSIDE RECORDS SUMMARY | 2024-08-04 12:49 | XMS_ITS | Encounter Summary ---
[facility] Organization [facility] Address 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 03/01/2024 famotidine (PEPCID) 20 mg tablet Take 20 mg by mouth 2 times daily. hydroCHLOROthiaz margarito 25 mg tablet Take 25 mg by mouth daily. insulin aspart U-100 (NovoLOG) 100 unit/mL vial Inject 0-6 Units by subcutaneous injection daily. insulin regular (HUMULIN R,NOVOLIN R) 100 unit/mL vial Inject by subcutaneous injection 3 times daily before meals. isosorbide dinitrate (ISORDIL) 10 mg tablet Take 10 mg by mouth. 03/01/2024 prochlorperazine maleate (COMPAZINE) 10 mg tablet Take 1 Tablet (10 mg) by mouth every 6 hours as needed for Nausea/Emesis. 20 Tablet 11/25/2023 furosemide (LASIX) 40 mg tablet Take 40 mg by mouth daily. hydrALAZINE (APRESOLINE) 25 mg tablet Take 25 mg by mouth 3 times daily. 2 tablets 3 times a day. clopidogrel bisulfate (CLOPIDOGREL ORAL) Take 100 mg by mouth daily. aspirin (ECOTRIN EC) 81 mg Tablet, Delayed Release (E.C.) Take 81 mg by mouth daily. metoprolol tartrate (LOPRESSOR) 50 mg tablet Take 50 mg by mouth 2 times daily. atorvastatin (LIPITOR) 20 mg tablet Take 20 mg by mouth daily. DULoxetine (CYMBALTA) 30 mg Capsule, Delayed Release(E.C.) Take 30 mg by mouth daily. metFORMIN (GLUCOPHAGE) 500 mg tablet Take 500 mg by mouth 2 times daily with meals. insulin glargine (LANTUS) 100 unit/mL injection Inject 20 Units by subcutaneous injection one time only. documented as of this encounter Plan of Treatment Not on file documented as of this encounter Visit Diagnoses Not on filedocumented in this encounter
[2024-08-04 14:11] LABS: Partial Thromboplastin Time 40.4 SECONDS (23.9-36.7)
--- NOTE | 2024-08-04 15:29 | PM.CONSULT ---
Providers/Reason For Consult Consulting Physician/Specialty*: Yomaira Sabillon MD Reason for Consult*: Non-ST elevation NH Requesting Physician: Dr. North Attending Physician: Ovidio North MD Primary Care Provider: Ezio Leahy History of Present Illness History of Present Illness Cam Trinh is a 64 year old male past medical history significant for coronary disease chronic kidney disease on dialysis with history of prior stent to LAD for acute coronary syndrome, uncontrolled hypertension history of anemia, CHF systolic type and nonobstructive coronary disease with moderate lesion in the mid RCA he is here with worsening of angina now to the extent that it happens at rest and specially during dialysis, patient presented to the ER as during dialysis he started having chest pain. He was ruled in for non-ST elevation NH with increasing cardiac markers. Twelve-lead EKG was not suggestive of acute ischemia. I have reviewed his films, mid RCA lesion is calcified eccentric lesion which appeared to be significant and may be the culprit. We would therefore proceed with left heart catheterization planned for Tuesday. Currently is chest pain-free. Early invasive strategy can be adopted if patient started having more symptoms. Medications/Allergies Home Medications ?Medication ?Instructions ?Recorded ?Confirmed ?Last Taken ?Type flash glucose scanning reader #1 ea 09/07/23 08/03/24 Unknown Rx (FreeStyle Igor 14 Day [place]) flash glucose sensor (FreeStyle #1 ea 09/07/23 08/03/24 Unknown Rx Igor 14 Day Sensor kit) acetaminophen 500 mg tablet 1,000 mg PO Q6H PRN Pain 09/08/23 08/03/24 Unknown History ergocalciferol (vitamin D2) 1,250 50,000 unit PO Q7D #4 caps 07/11/24 08/03/24 Unknown Rx mcg (50,000 unit) capsule (Vitamin D2) hydralazine 25 mg tablet 25 mg PO TID #90 tabs 07/11/24 08/03/24 08/03/24 Rx aspirin 81 mg tablet,delayed 81 mg PO DAILY 30 days #30 tabs 07/19/24 08/03/24 08/03/24 Rx release atorvastatin 80 mg tablet 80 mg PO BEDTIME 30 days #30 tabs 07/19/24 08/03/24 08/02/24 Rx clopidogrel 75 mg tablet 75 mg PO DAILY 30 days #30 tabs 07/19/24 08/03/24 08/03/24 Rx furosemide 40 mg tablet (Lasix) 40 mg PO DAILY 30 days #30 tabs 07/19/24 08/03/24 08/03/24 Rx insulin aspart U-100 100 unit/mL See Rx Instructions .Route 07/19/24 08/03/24 Unknown Rx (3 mL) subcutaneous pen (Novolog .COMPLEX #15 mL FlexPen U-100 Insulin aspart) metoprolol tartrate 50 mg tablet 100 mg (2 x 50 mg) PO 07/19/24 08/03/24 08/03/24 Rx BID@0900,2100 30 days #120 tabs potassium chloride 10 mEq 10 meq PO DAILY 30 days #30 tabs 07/19/24 08/03/24 08/03/24 Rx tablet,extended release (Klor-Con) oseltamivir 45 mg capsule (Tamiflu) 45 mg PO BID #10 caps 08/02/24 08/03/24 08/03/24 Rx Allergies Allergy/AdvReac Type Severity Reaction Status Date / Time No Known Allergies Allergy Verified 08/03/24 13:53 Current Medications Generic Name Dose Route Start Last Admin Trade Name Freq PRN Reason Stop Dose Admin Aspirin 81 mg 08/04/24 09:00 08/04/24 12:17 Aspirin 81 Mg Ec Tablet PO 81 mg DAILY ESTRELLA Administration Atorvastatin Calcium 80 mg 08/03/24 21:15 08/03/24 21:50 Atorvastatin 40 Mg Tablet PO 80 mg BEDTIME ESTRELLA Administration Clopidogrel Bisulfate 75 mg 08/04/24 09:00 08/04/24 12:18 Clopidogrel 75 Mg Tablet PO 75 mg DAILY ESTRELLA Administration Furosemide 40 mg 08/04/24 09:00 08/04/24 13:28 Furosemide 40 Mg Tablet PO Not Given DAILY ESTRELLA Hydralazine HCl 25 mg 08/03/24 21:15 08/04/24 14:18 Hydralazine 25 Mg Tablet PO 25 mg TID ESTRELLA Administration Heparin Sodium/Sodium Chloride 25,000 unit in 500 mls @ 0 mls/hr 08/03/24 17:45 08/04/24 14:53 Heparin Drip IV 14.34 unit/kg/hr CONT ESTRELLA 29 mls/hr Titration Protocol Per Protocol Nitroglycerin/Dextrose 50 mg in 250 mls @ 0 mls/hr 08/03/24 17:45 08/03/24 18:00 Nitroglycerin Drip IV 10 mcg/min .Q0M ESTRELLA 3 mls/hr Administration Protocol Per Protocol Insulin Human Lispro 0 unit 08/03/24 21:15 08/04/24 13:29 Insulin Lispro 100 Unit/1 Ml SUBCUT Not Given WM&BEDTIME ESTRELLA Protocol Metoprolol Tartrate 100 mg 08/03/24 21:15 08/04/24 12:17 Metoprolol Tartrate 50 Mg Tablet PO 100 mg BID@0900,2100 ESTRELLA Administration Morphine Sulfate 2 mg 08/03/24 21:15 08/03/24 21:51 Morphine 4 Mg/Ml Sdv 1 Ml IVP 2 mg Q4H PRN Administration SEVERE PAIN Pantoprazole Sodium 40 mg 08/03/24 21:15 08/03/24 21:51 Pantoprazole 40 Mg Sdv IVP 40 mg Q24H ESTRELLA Administration PFSH Acute PFSH: Medical History (Updated 08/03/24 @ 17:57 by Ovidio North MD) Chest pain Rib pain on right side Large pleural effusion Hypertension Diabetes Abnormal nuclear stress test Hyperglycemia Hypertensive urgency Angina at rest Diabetic neuropathy, painful Surgical History History of surgical removal of meniscus of knee Family History Other CAD (coronary artery disease) Diabetes Social History Smoking and tobacco/nicotine status: never used tobacco/nicotine Alcohol intake: former Substance/Drug Use: never Vitals/I&O/Wt Last Vital Signs Temp 98.4 F 08/04/24 13:51 Pulse 65 08/04/24 13:51 Resp 16 08/04/24 13:51 BP 168/84 08/04/24 13:51 Pulse Ox 100 08/04/24 12:00 O2 Del Method Nasal Cannula 08/04/24 12:00 O2 Flow Rate 2 08/04/24 12:00 08/04/24 08/04/24 08/04/24 06:59 14:59 22:59 Intake Total 241.183 / 971.815 6966.917 / 1052.917 Output Total 300 / 300 3000 / 3000 Balance -58.817 / 670.183 -1946.083 / -1946.083 Weight last 48 hrs Weight 222 lb 7.143 oz Weight 100 lb 9.6 oz Weight 222 lb 3.615 oz Weight 223 lb Physical Exam Const: OTHER: GENERAL: Patient is alert, awake and oriented x3. HEART: Regular S1 and S2. No murmur, rub or gallop. LUNGS: Clear to auscultate bilaterally. CENTRAL NERVOUS SYSTEM: Grossly nonfocal. EXTREMITIES: Lower extremities with out edema bilaterally. Data 08/04/24 07:54 08/04/24 07:54 A&P Assessment and plan (1) End stage renal disease on dialysis: (2) Anemia: (3) CHF (congestive heart failure): Qualifiers: Heart failure type: combined systolic and diastolic Heart failure chronicity: acute on chronic Qualified Code(s): I50.43 - Acute on chronic combined systolic (congestive) and diastolic (congestive) heart failure Plan Patient is ruled in for non-ST elevation NH, I have reviewed his film it appeared to me that RCA may be the culprit where patient has moderate to severe lesion, given history of worsening of chest pain over the. Time which she has increased and now to the extent that he has leaked troponin we will therefore proceed with left heart cath. Will add isosorbide mononitrate the regimen continue aspirin and statin beta-kimani and clopidogrel. Heparin may need to be started for anticoagulation. Increase hydralazine to 50 mg 3 times daily for better blood pressure control. Patient has been explained all risk-benefit and alternative for the procedure he would like to proceed with it. He has anemia of chronic disease will continue to monitor hemoglobin as well. PDMP PDMP Reviewed: Not Reviewed Consult Attestations Medical Necessity Statement: I am expecting his stay to cross more than 2 midnights Coding Level of Care Code Acute Code for Chg Fwd Diagnoses End stage renal disease on dialysis N18.6; Z99.2 Anemia D64.9 Acute on chronic combined systolic and diastolic congestive heart failure I50.43 Heart failure type: combined systolic and diastolic Heart failure chronicity: acute on chronic
--- NOTE | 2024-08-04 15:47 | P.PN_ITS ---
Subjective 2 Subjective: Patient was seen this morning, currently in dialysis, receiving dialysis, no chest pain complaints overnight, no fevers, no chills Vitals/I&O/Wt Last Vital Signs Temp 98.4 F 08/04/24 13:51 Pulse 65 08/04/24 13:51 Resp 16 08/04/24 13:51 BP 168/84 08/04/24 13:51 Pulse Ox 100 08/04/24 12:00 O2 Del Method Nasal Cannula 08/04/24 12:00 O2 Flow Rate 2 08/04/24 12:00 08/04/24 08/04/24 08/04/24 06:59 14:59 22:59 Intake Total 241.183 / 675.604 3737.917 / 1052.917 Output Total 300 / 300 3000 / 3000 Balance -58.817 / 670.183 -1947.083 / -1947.083 Weight last 48 hrs Weight 100.9 kg Weight 45.631 kg Weight 100.8 kg Weight 101.151 kg Physical Exam 2 Const: COMMON NORMALS: no acute distress and patient oriented x3 Resp: COMMON NORMALS: normal respiratory effort, No retractions, No use of accessory muscles and clear to auscultation bilaterally AUSCULTATION: clear to auscultation bilaterally Cardio: COMMON NORMALS: regular rate, regular rhythm, S1 normal heart sound present and S2 normal heart sound present RATE: regular rate RHYTHM: r egular rhythm HEART SOUNDS: S1 normal heart sound present and S2 normal heart sound present GI: COMMON NORMALS: Normal to inspection, nondistended, normoactive bowel sounds present, Soft to palpation and non-tender PALPATION: Yes Soft to palpation Extremity: COMMON NORMALS: no pedal edema Neuro: COMMON NORMALS: patient oriented x3 Psych: COMMON NORMALS: mental status grossly normal Data 08/04/24 07:54 08/04/24 07:54 A&P Assessment and plan (1) Nonischemic congestive cardiomyopathy: (2) Hyperlipidemia: Qualifiers: Hyperlipidemia type: mixed hyperlipidemia Qualified Code(s): E78.2 - Mixed hyperlipidemia (3) CHF (congestive heart failure): Qualifiers: Heart failure type: combined systolic and diastolic Heart failure chronicity: acute on chronic Qualified Code(s): I50.43 - Acute on chronic combined systolic (congestive) and diastolic (congestive) heart failure (4) Hypertension: Qualifiers: Hypertension type: primary hypertension Qualified Code(s): I10 - Essential (primary) hypertension (5) Diabetes type 2 with atherosclerosis of arteries of extremities: (6) End stage renal disease: (7) Non-STEMI (non-ST elevated myocardial infarction): (8) Chest pain: Plan Chest pain, NSTEMI -Coronary angiogram 06/2024 Diagnostic Findings * Left Main has no significant disease. * Left Anterior Descending has patent proximal vessel stents. * Circumflex has no significant disease. * Mid Right Coronary Artery: moderate 50-60% stenosis, DINH: 3 flow. * INDICATION: Patient presented with STEMI and underwent successful revascularization of proximal LAD with 2 stents. On arrival to ICU, patient again started having chest discomfort and had persistent ST elevations. Patient was brought emergently back to the Automatic Packer Operator for rechecking recently placed stents and coronary vasculature. * Coronary angiography shows right dominance. Conclusions 1. Patent recently placed proximal LAD stents. Moderate mid RCA stenosis. CONCLUSIONS Limited Echo Mildly increased left ventricular cavity size. Mildly decreased left ventricular systolic function. Left ventricular ejection fraction is estimated at 50 %. Global left ventricular hypokinesis. No pericardial effusion. Right atrial pressure is around 10 mm of mercury. Plan -Serial EKGs, serial troponins, telemetry monitoring -Aspirin, statin, Plavix, beta-kimani -Heparin drip -Monitor closely -Cardiology consulted End-stage renal disease on dialysis, does have 1+ pitting edema but no crackles on exam does not appear to be fluid overloaded, nephrology consulted, dialysis today Type 2 diabetes mellitus, low-dose sliding scale Hypertension resume home blood pressure medications PDMP PDMP Reviewed: Not Reviewed Attestations 2 Medical Necessity Statement*: Patient requires hospitalization for chest pain, NSTEMI, end-stage renal disease Diagnoses Nonischemic congestive cardiomyopathy I42.0 Mixed hyperlipidemia E78.2 Hyperlipidemia type: mixed hyperlipidemia Acute on chronic combined systolic and diastolic congestive heart failure I50.43 Heart failure type: combined systolic and diastolic Heart failure chronicity: acute on chronic Primary hypertension I10 Hypertension type: primary hypertension Diabetes type 2 with atherosclerosis of arteries of extremities E11.51; I70.209 End stage renal disease N18.6 Non-STEMI (non-ST elevated myocardial infarction) I21.4 Chest pain R07.9
--- NOTE | 2024-08-04 16:22 | PC.NURSE ---
heparin drip restarted-ptt is 40.[address] hill regards Ptt-40.4, Dr replied to resume prior rate w/c is 25 mls/hr, no bolus, rate adjusted per his order and to repeat PTT in 4 hrs.
--- NOTE | 2024-08-04 17:35 | USCV_ITS ---
Cam Trinh Age: 64 Gender: M : 1960 Exam Date: 08/04/2024 07:15 Ordering Phys: Ovidio North MD Technologist: Jak Freire [place]am Location[place] [facility] [place]: chest pain BP: 157 / 75 HR: Rhythm: Sinus Technical Quality: Adequate MEASUREMENTS (Male / Female) Normal Values 2D ECHO LV Diastolic Diameter PLAX 4.9 cm 4.2 - 5.9 / 3.9 - 5.3 cm IVS Diastolic Thickness 1.1 cm 0.6 - 1.0 / 0.6 - 0.9 cm IVS Systolic Thickness 1.3 cm LVPW Diastolic Thickness 2.2 cm 0.6 - 1.0 / 0.6 - 0.9 cm LVPW Systolic Thickness 2.5 cm LVOT Diameter 2.3 cm LV Ejection Fraction 2D Teich 56.3 % LV Ejection Fraction MOD 4C 51.2 % LV Ejection Fraction MOD 2C 53.7 % LV Ejection Fraction 2C AL 54.3 % LA Diameter 3.8 cm LA Sys Volume AL 47.0 cm cubed LA Sys Volume Index AL 21.0 cm cubed/m squared Aorta at Sinotubular Diameter 2.7 cm IVC Diameter 2.0 cm M-MODE LA Ao Ratio MM 1.4 AV Cusp Separation MM 1.8 cm FINDINGS Left Ventricle Mildly increased left ventricular cavity size. Mildly decreased left ventricular systolic function. Left ventricular ejection fraction is estimated at 50 %. Global left ventricular hypokinesis. Right Ventricle Right Atrium Left Atrium Mitral Valve Aortic Valve Tricuspid Valve Pulmonic Valve Pericardium No pericardial effusion. Aorta IVC Mildly dilated IVC. CONCLUSIONS Limited Echo Mildly increased left ventricular cavity size. Mildly decreased left ventricular systolic function. Left ventricular ejection fraction is estimated at 50 %. Global left ventricular hypokinesis. No pericardial effusion. Right atrial pressure is around 10 mm of mercury. Yomaira Sabillon MD (Electronically Signed) Final Date: 04 August 2024 11:00 S
[2024-08-04] MEDS: insulin lispro 100 unit/1 mL SUBCUT (17:44)
[2024-08-04] MEDS: heparin drip 25,000 UNIT/500 ML PREMIX 25 UNIT IV (17:45)
[2024-08-04] MEDS: morphine 4 mg/mL SDV 1 mL 2 MG IVP (17:48)
[2024-08-04 17:55] LABS: Glucose Point of Care 181 mg/dL (70-110)
--- NOTE | 2024-08-04 18:36 | PC.NURSE ---
mild chest pain/svt 150 heart rate noted sec./20 beat SVT on cardiac tele and pt report of mild chest pain, nitro gtt up per protocol for chest pain,ivp morphine PRN as ordered. Notified Dr on these episodes and received orders from Dr North to get Trop and EKG series.
[2024-08-04] MEDS: atorvastatin 40 mg Tablet 80 MG PO (20:23)
[2024-08-04] MEDS: hyDRALAzine 25 mg Tablet 50 MG PO (20:23)
[2024-08-04] MEDS: pantoprazole 40 mg SDV IVP (20:24)
[2024-08-04 20:27] LABS: Partial Thromboplastin Time 56.1 SECONDS (23.9-36.7)
[2024-08-04 20:35] LABS: Troponin(5th) Baseline 164 ng/L (0-15)
[2024-08-04 20:51] LABS: Glucose Point of Care 133 mg/dL (70-110)
--- NOTE | 2024-08-04 21:44 | ECG_ITS ---
[facility] Date: 2024-08-04 Pat Name: Cam Trinh Department: Room: 111 Gender: Male Compressed Gases Tester: : 1960 Requested By: Ovidio North Order Number: [id number] Reading MD: HENOK DOLL Measurements Intervals [place] Rate: 68 P: 7 OK: 126 QRS: -30 QRSD: 117 T: 88 QT: 403 QTc: 430 Interpretive Statements SINUS RHYTHM INCOMPLETE RIGHT BUNDLE BRANCH BLOCK [90+ ms QRS DURATION, TERMINAL R IN V1/V2, 40+ ms S IN I/aVL/V4/V5/V6] SEPTAL MYOCARDIAL INFARCTION , PROBABLY OLD [40+ ms Q WAVE IN V1/V2] Compared to ECG 08/03/2024 17:11:51 Incomplete right bundle-branch block now present Left-axis deviation no longer present Myocardial infarct finding still present Electronically Signed On 08-05-2024 21:08:26 CUSTOMER EXPERIENCE ANALYST by HENOK DOLL [email or web address]
[2024-08-05] VITALS (12 sets, daily range): BP systolic 116–164; BP diastolic 55–95; PULSE 62–72; RESP 15–22; TEMP 36.5–37; O2SAT 92–100
--- NOTE | 2024-08-05 00:54 | ECG_ITS ---
[facility] Date: 2024-08[facility]05 Pat Name: Cam Trinh Department: Room: 111 Gender: Male Physician Relations Manager: : 1960 Requested By: Ovidio North Order Number: [id number] Reading MD: HENOK DOLL Measurements Intervals [place] Rate: 64 P: -4 GA: 130 QRS: -37 QRSD: 116 T: 78 QT: 414 QTc: 428 Interpretive Statements SINUS RHYTHM LEFT AXIS DEVIATION [QRS AXIS < -30] INCOMPLETE RIGHT BUNDLE BRANCH BLOCK [90+ ms QRS DURATION, TERMINAL R IN V1/V2, 40+ ms S IN I/aVL/V4/V5/V6] SEPTAL MYOCARDIAL INFARCTION , OF INDETERMINATE AGE [40+ ms Q WAVE IN V1/V2] Compared to ECG 08/04/2024 21:44:43 Left-axis deviation now present Myocardial infarct finding still present Electronically Signed On 08-05-2024 21:08:06 HOSPITALITY HOUSEKEEPER by HENOK DOLL [id number]
[2024-08-05 02:55] LABS: Basophils # 0.1 10^3/uL (0.0-0.1); Basophils % 0.7 %; Eosinophils # 0.1 10^3/uL (0.0-0.8); Hematocrit 25.5 % (37-53); Lymphocytes % 26.1 %; Mean Corpuscular HGB Conc 31.8 g/dL (30-55); Mean Corpuscular Hemoglobin 27.6 pg (27-33); Mean Platelet Volume 10.7 fL (7.4-10.4); Monocytes # 0.6 10^3/uL (0.2-0.9); Monocytes % 8.2 %; Neutrophils % 63.7 %; Nucleated Red Blood Cells % 0 %; Platelet Count 222 10^3/cmm (157-399); Red Blood Count 2.93 10^6/uL (3.85-5.65); Red Cell Distribution Width 13.5 % (12.1-15.1); White Blood Count 7.69 10^3/uL (3.29-11.43)
[2024-08-05 03:13] LABS: Partial Thromboplastin Time 74.5 SECONDS (23.9-36.7)
[2024-08-05 03:19] LABS: Alanine Aminotransferase 6 U/L (0-41); Albumin Level 2.9 g/dL (3.5-5.2); Alkaline Phosphatase 100 U/L (40-130); Anion Gap 13.5 (5-19); Aspartate Amino Transferase 8 U/L (0-40); Blood Urea Nitrogen 23 mg/dL (8-23); Calcium 8.5 mg/dL (8.5-10.5); Carbon Dioxide 25 mmol/L (22-29); Chloride 105 mmol/L (98-107); Creatinine Clr Calc Pharmacy 29.5095; Globulin 2.4 g/dL (1.3-4.6); Glomerular Filtration Rate 21.2 mL/min (90-130); Glucose 196 mg/dL (65-115); Magnesium 1.9 mg/dL (1.7-2.3); Osmolality Calculated 297 mOsm/kg (285-295); Phosphorus 3.6 mg/dL (2.5-4.5); Potassium 4.5 mmol/L (3.5-5.1); Sodium 139 mmol/L (136-145); Total Bilirubin 0.3 mg/dL (0.15-1.2); Total Protein 5.3 g/dL (6.6-8.7)
[2024-08-05 03:23] LABS: Troponin 5 6HR 150.9 ng/L (0-15); Troponin 5 6HR Delta -13.1 ng/L (0-12)
[2024-08-05 06:38] LABS: Glucose Point of Care 221 mg/dL (70-110)
[2024-08-05] MEDS: aspirin 81 mg EC Tablet PO (08:46)
[2024-08-05] MEDS: metoprolol tartrate 50 mg Tablet 100 MG PO ×2 (08:46→20:28)
[2024-08-05] MEDS: hyDRALAzine 25 mg Tablet 50 MG PO ×3 (08:46→20:28)
[2024-08-05] MEDS: FUROsemide 40 mg Tablet PO (08:46)
[2024-08-05] MEDS: clopidogrel 75 mg Tablet PO (08:47)
[2024-08-05 08:48] LABS: Partial Thromboplastin Time 71.7 SECONDS (23.9-36.7)
--- NOTE | 2024-08-05 09:23 | P.PN_ITS ---
Subjective 2 Subjective: Patient was seen this morning he did have chest pain yesterday afternoon initiating a nitro drip yesterday afternoon, he has had intermittent chest pain throughout the evening, but none overnight, currently chest pain-free no shortness of breath, no abdominal pain he feels his edema is improving Vitals/I&O/Wt Last Vital Signs Temp 98.2 F 08/05/24 08:00 Pulse 68 08/05/24 09:17 Resp 18 08/05/24 09:17 BP 154/70 08/05/24 08:00 Pulse Ox 100 08/05/24 09:17 O2 Del Method Nasal Cannula 08/05/24 09:17 O2 Flow Rate 2 08/05/24 09:17 08/04/24 08/05/24 08/05/24 22:59 06:59 14:59 Intake Total 390.800 / 1443.717 120 / 1563.717 Output Total 250 / 3250 Balance 140.800 / -1806.283 120 / -1686.283 Weight last 48 hrs Weight 102.648 kg Weight 100.9 kg Weight 45.631 kg Weight 100.8 kg Weight 101.151 kg Physical Exam 2 Const: COMMON NORMALS: no acute distress and patient oriented x3 Resp: COMMON NORMALS: normal respiratory effort, No retractions, No use of accessory muscles and clear to auscultation bilaterally AUSCULTATION: clear to auscultation bilaterally Cardio: COMMON NORMALS: regular rate, regular rhythm, S1 normal heart sound present and S2 normal heart sound present RATE: regular rate RHYTHM: r egular rhythm HEART SOUNDS: S1 normal heart sound present and S2 normal heart sound present GI: COMMON NORMALS: Normal to inspection, nondistended, normoactive bowel sounds present and non-tender Extremity: COMMON NORMALS: no pedal edema Neuro: COMMON NORMALS: patient oriented x3 Psych: COMMON NORMALS: mental status grossly normal Data 08/05/24 02:18 08/05/24 02:18 A&P Assessment and plan (1) Nonischemic congestive cardiomyopathy: (2) Hyperlipidemia: Qualifiers: Hyperlipidemia type: mixed hyperlipidemia Qualified Code(s): E78.2 - Mixed hyperlipidemia (3) CHF (congestive heart failure): Qualifiers: Heart failure type: combined systolic and diastolic Heart failure chronicity: acute on chronic Qualified Code(s): I50.43 - Acute on chronic combined systolic (congestive) and diastolic (congestive) heart failure (4) Hypertension: Qualifiers: Hypertension type: primary hypertension Qualified Code(s): I10 - Essential (primary) hypertension (5) Diabetes type 2 with atherosclerosis of arteries of extremities: (6) End stage renal disease: (7) Non-STEMI (non-ST elevated myocardial infarction): (8) Chest pain: Plan Chest pain, NSTEMI -Coronary angiogram 06/2024 Diagnostic Findings * Left Main has no significant disease. * Left Anterior Descending has patent proximal vessel stents. * Circumflex has no significant disease. * Mid Right Coronary Artery: moderate 50-60% stenosis, DINH: 3 flow. * INDICATION: Patient presented with STEMI and underwent successful revascularization of proximal LAD with 2 stents. On arrival to ICU, patient again started having chest discomfort and had persistent ST elevations. Patient was brought emergently back to the Practicing Dermatologist for rechecking recently placed stents and coronary vasculature. * Coronary angiography shows right dominance. Conclusions 1. Patent recently placed proximal LAD stents. Moderate mid RCA stenosis. CONCLUSIONS Limited Echo Mildly increased left ventricular cavity size. Mildly decreased left ventricular systolic function. Left ventricular ejection fraction is estimated at 50 %. Global left ventricular hypokinesis. No pericardial effusion. Right atrial pressure is around 10 mm of mercury. Plan -Serial EKGs, serial troponins, telemetry monitoring -Aspirin, statin, Plavix, beta-kimani -Heparin drip -Nitro drip -Monitor closely -Cardiology consulted, plans on coronary angiography End-stage renal disease on dialysis, pitting edema improved, dialysis yesterday Type 2 diabetes mellitus, low-dose sliding scale Hypertension resume home blood pressure medications PDMP PDMP Reviewed: Not Reviewed Attestations 2 Medical Necessity Statement*: Patient requires hospitalization for chest pain, NSTEMI, proceeding with coronary angiography Diagnoses Nonischemic congestive cardiomyopathy I42.0 Mixed hyperlipidemia E78.2 Hyperlipidemia type: mixed hyperlipidemia Acute on chronic combined systolic and diastolic congestive heart failure I50.43 Heart failure type: combined systolic and diastolic Heart failure chronicity: acute on chronic Primary hypertension I10 Hypertension type: primary hypertension Diabetes type 2 with atherosclerosis of arteries of extremities E11.51; I70.209 End stage renal disease N18.6 Non-STEMI (non-ST elevated myocardial infarction) I21.4 Chest pain R07.9
--- NOTE | 2024-08-05 10:06 | P.PN_ITS ---
Subjective 2 Subjective: no new complaints Medications: Reviewed: Yes Vitals/I&O/Wt Last Vital Signs Temp 98.2 F 08/05/24 08:00 Pulse 68 08/05/24 09:17 Resp 18 08/05/24 09:17 BP 154/70 08/05/24 08:00 Pulse Ox 100 08/05/24 09:17 O2 Del Method Nasal Cannula 08/05/24 09:17 O2 Flow Rate 2 08/05/24 09:17 08/04/24 08/05/24 08/05/24 22:59 06:59 14:59 Intake Total 390.800 / 1443.717 120 / 1563.717 Output Total 250 / 3250 Balance 140.800 / -1806.283 120 / -1686.283 Weight last 48 hrs Weight 102.648 kg Weight 100.9 kg Weight 45.631 kg Weight 100.8 kg Weight 101.151 kg Physical Exam 2 Narrative: Awake , alert , no distress S1S2 RRR per report Lungs clear per report 1+ edema Data 08/05/24 02:18 08/05/24 02:18 A&P Assessment and plan (1) End stage renal disease: Plan 1. End-stage renal disease: On MWF schedule, HD tomorrow , ultrafiltration as tolerated 2. NSTEMI: Management per cardiology 3. Hypertension: Blood pressure controlled 4. History of diabetes 5. Anemia: Will order ELROY with HD for a goal hemoglobin between 10-11. Patient evaluated using audiovisual cart. Time spent 40 minutes PDMP PDMP Reviewed: Not Reviewed Attestations 2 Medical Necessity Statement*: per anahy Coding Level of Care Code Acute Code for Chg Fwd Diagnoses End stage renal disease N18.6
[2024-08-05] MEDS: nitroglycerin drip 50 MG/250 ML PREMIX 13.5 MG IV (10:58)
[2024-08-05 12:50] LABS: Glucose Point of Care 168 mg/dL (70-110)
--- NOTE | 2024-08-05 13:14 | ECG_ITS ---
[facility] Date: 2024-08-05 Pat Name: Cam Trinh Department: Room: 111 Gender: Male Open Hearth Laborer: : 1960 Requested By: Ovidio North Order Number: [id number] Reading MD: HENOK DOLL Measurements Intervals [place] Rate: 65 P: 0 TN: 129 QRS: -36 QRSD: 122 T: 114 QT: 416 QTc: 435 Interpretive Statements SINUS RHYTHM LEFT AXIS DEVIATION [QRS AXIS < -30] ANTEROSEPTAL MYOCARDIAL INFARCTION , OF INDETERMINATE AGE [40+ ms Q WAVE IN V1-V4] INTERPRETATION BASED ON A DEFAULT AGE OF 40 YEARS Compared to ECG 08/05/2024 00:54:07 Incomplete right bundle-branch block no longer present Myocardial infarct finding still present Electronically Signed On 08-05-2024 20:46:47 MANAGER TERMINAL by HENOK DOLL [email or web address]
--- NOTE | 2024-08-05 13:21 | PC.NURSE ---
patient reported 10/10 chest pain at 1315. EKG done and sent to [facility]. [facility] notified. Dr. Sabillon also notified. Nitro increased to 50.
[2024-08-05] MEDS: morphine 4 mg/mL SDV 1 mL 2 MG IVP ×2 (14:33→20:29)
[2024-08-05 14:35] LABS: Partial Thromboplastin Time 71.6 SECONDS (23.9-36.7)
[2024-08-05] MEDS: insulin lispro 100 unit/1 mL SUBCUT ×2 (14:38→18:25)
[2024-08-05 14:54] LABS: Troponin T (5th) Once 152 ng/L (0-15)
[2024-08-05 16:55] LABS: Glucose Point of Care 291 mg/dL (70-110)
--- NOTE | 2024-08-05 17:54 | P.PN_ITS ---
Subjective 2 Subjective: Patient has few episodes of sharp chest pain on deep inspiration most likely pleuritic/pericarditis, no significant EKG changes. Medications: Reviewed: Yes Vitals/I&O/Wt Last Vital Signs Temp 98.2 F 08/05/24 16:00 Pulse 69 08/05/24 16:00 Resp 18 08/05/24 16:00 BP 152/95 08/05/24 16:00 Pulse Ox 100 08/05/24 16:00 O2 Del Method Nasal Cannula 08/05/24 16:00 O2 Flow Rate 3 08/05/24 16:00 08/05/24 08/05/24 08/05/24 06:59 14:59 22:59 Intake Total 120 / 1563.717 167.475 / 167.475 Output Total 750 / 750 Balance 120 / -1686.283 -582.525 / -582.525 Weight last 48 hrs Weight 226 lb 4.8 oz Weight 222 lb 7.143 oz Weight 100 lb 9.6 oz Weight 222 lb 3.615 oz Physical Exam 2 Const: OTHER: GENERAL: Patient is alert, awake and oriented x3. HEART: Regular S1 and S2. No murmur, rub or gallop. LUNGS: Clear to auscultate bilaterally. CENTRAL NERVOUS SYSTEM: Grossly nonfocal. EXTREMITIES: Lower extremities with out edema bilaterally. Data 08/05/24 02:18 08/05/24 02:18 A&P Assessment and plan (1) End stage renal disease on dialysis: (2) Anemia: (3) CHF (congestive heart failure): Qualifiers: Heart failure type: combined systolic and diastolic Heart failure chronicity: acute on chronic Qualified Code(s): I50.43 - Acute on chronic combined systolic (congestive) and diastolic (congestive) heart failure Plan Patient is ruled in for non-ST elevation [place], I have reviewed his film it appeared to me that RCA may be the culprit where patient has moderate to severe lesion, given history of worsening of chest pain over the. Time which she has increased and now to the extent that he has leaked troponin we will therefore proceed with left heart cath. Will add isosorbide mononitrate the regimen continue aspirin and statin beta-kimani and clopidogrel. Heparin may need to be started for anticoagulation. Increase hydralazine to 50 mg 3 times daily for better blood pressure control. Patient has been explained all risk-benefit and alternative for the procedure he would like to proceed with it. He has anemia of chronic disease will continue to monitor hemoglobin as well. On today's visit dated 08/05/2024 patient is doing fine from cardiovascular perspective chest pain currently is atypical today and most likely secondary to pericarditis/pleuritic in the face of uremia. Morphine 2 mg will be given. Continue to monitor closely, plan for left heart cath in the morning. Patient has been discussed all risk-benefit and alternative for the procedure he would like to proceed with the procedure in the morning PDMP PDMP Reviewed: Not Reviewed Attestations 2 Medical Necessity Statement*: Patient require continuation hospitalization for above defined care. Coding Level of Care Code Acute Code for Chg Fwd Diagnoses End stage renal disease on dialysis N18.6; Z99.2 Anemia D64.9 Acute on chronic combined systolic and diastolic congestive heart failure I50.43 Heart failure type: combined systolic and diastolic Heart failure chronicity: acute on chronic
[2024-08-05] MEDS: heparin drip 25,000 UNIT/500 ML PREMIX 25 UNIT IV (18:09)
--- NOTE | 2024-08-05 18:30 | PC.NURSE ---
Physician notified of patient's rising blood pressure. Dr North notified.amlodipine 5mg q24hrs order given
[2024-08-05] MEDS: amlodipine 5 mg Tablet PO (19:06)
[2024-08-05 20:11] LABS: Partial Thromboplastin Time 65.5 SECONDS (23.9-36.7)
[2024-08-05] MEDS: atorvastatin 40 mg Tablet 80 MG PO (20:28)
[2024-08-05] MEDS: pantoprazole 40 mg SDV IVP (20:29)
[2024-08-05 20:57] LABS: Glucose Point of Care 100 mg/dL (70-110)
[2024-08-06] VITALS (7 sets, daily range): BP systolic 114–146; BP diastolic 55–80; PULSE 58–71; RESP 16–24; TEMP 36.6–36.9; O2SAT 95–99
[2024-08-06 02:29] LABS: Basophils # 0.1 10^3/uL (0.0-0.1); Basophils % 0.5 %; Eosinophils # 0.1 10^3/uL (0.0-0.8); Eosinophils % 0.8 %; Hematocrit 23.8 % (37-53); Lymphocytes # 1.7 10^3/uL (0.8-4.8); Lymphocytes % 18.7 %; Mean Corpuscular HGB Conc 31.9 g/dL (30-55); Mean Corpuscular Hemoglobin 27.7 pg (27-33); Mean Corpuscular Volume 86.9 fl (82-101); Mean Platelet Volume 10.7 fL (7.4-10.4); Monocytes # 0.8 10^3/uL (0.2-0.9); Monocytes % 9.2 %; Neutrophils # 6.46 10^3/uL (1.8-7.7); Neutrophils % 70.5 %; Nucleated Red Blood Cells % 0 %; Platelet Count 217 10^3/cmm (157-399); Red Blood Count 2.74 10^6/uL (3.85-5.65); Red Cell Distribution Width 13.4 % (12.1-15.1); White Blood Count 9.16 10^3/uL (3.29-11.43)
[2024-08-06 02:47] LABS: Partial Thromboplastin Time 71.2 SECONDS (23.9-36.7)
[2024-08-06 03:00] LABS: Alanine Aminotransferase 6 U/L (0-41); Albumin Level 2.8 g/dL (3.5-5.2); Alkaline Phosphatase 98 U/L (40-130); Anion Gap 14.7 (5-19); Aspartate Amino Transferase 7 U/L (0-40); Blood Urea Nitrogen 35 mg/dL (8-23); Calcium 8.7 mg/dL (8.5-10.5); Carbon Dioxide 25 mmol/L (22-29); Chloride 100 mmol/L (98-107); Glomerular Filtration Rate 17.2 mL/min (90-130); Glucose 182 mg/dL (65-115); Magnesium 1.9 mg/dL (1.7-2.3); Osmolality Calculated 293 mOsm/kg (285-295); Phosphorus 3.4 mg/dL (2.5-4.5); Potassium 4.7 mmol/L (3.5-5.1); Sodium 135 mmol/L (136-145); Total Bilirubin 0.3 mg/dL (0.15-1.2); Total Protein 5.8 g/dL (6.6-8.7)
[2024-08-06] MEDS: sodium chloride 0.9% 1,000 ML 50 ML IV (05:25)
[2024-08-06 06:25] LABS: Glucose Point of Care 195 mg/dL (70-110)
--- NOTE | 2024-08-06 08:36 | P.PN_ITS ---
Subjective 2 Subjective: seen and examined. denies CP this AM. no SOB at rest. no n/v/f/c/rudolph/d Medications: Reviewed: Yes Medication Review Details: Current Medications Acetaminophen (Acetaminophen 325 Mg Tablet) 650 mg PO Q6H PRN PRN Reason: Mild/Mod Pain Or Temp >/= 101 Amlodipine Besylate (Amlodipine 5 Mg Tablet) 5 mg PO DAILY [facility] Last Admin: 08/05/24 19:06 Dose: 5 mg Aspirin (Aspirin 81 Mg Ec Tablet) 81 mg PO DAILY [facility] Last Admin: 08/05/24 08:46 Dose: 81 mg Aspirin (Aspirin 325 Mg Tablet) 325 mg PO ONCE ONE Stop: 08/06/24 09:01 Atorvastatin Calcium (Atorvastatin 40 Mg Tablet) 80 mg PO BEDTIME [facility] Last Admin: 08/05/24 20:28 Dose: 80 mg Clopidogrel Bisulfate (Clopidogrel 75 Mg Tablet) 75 mg PO DAILY [facility] Last Admin: 08/05/24 08:47 Dose: 75 mg Diphenhydramine HCl (Diphenhydramine 50 Mg Capsule) 50 mg PO ONCE ONE Stop: 08/06/24 09:01 Furosemide (Furosemide 40 Mg Tablet) 40 mg PO DAILY [facility] Last Admin: 08/05/24 08:46 Dose: 40 mg Glucagon (Glucagon 1 Mg/Ml Kit 1 Ml) 1 mg IM ONCE PRN; Protocol PRN Reason: Adult Acute Hypoglycemia Nursing Prot. Heparin Sodium (Porcine) (Heparin 5,000 Unit/Ml Inj 1 Ml) 0 unit IVP PRN PRN; Protocol PRN Reason: Heparin Weight Based Protocol -Subsequent Bolus Hydralazine HCl (Hydralazine 25 Mg Tablet) 50 mg PO TID [facility] Last Admin: 08/05/24 20:28 Dose: 50 mg Heparin Sodium/Sodium Chloride (Heparin Drip) 25,000 unit in 500 mls @ 0 mls/hr IV CONT [facility]; Protocol Last Admin: 08/05/24 18:09 Dose: 12.36 unit/kg/hr, 25 mls/hr Nitroglycerin/Dextrose (Nitroglycerin Drip) 50 mg in 250 mls @ 0 mls/hr IV .Q0M [facility]; Protocol Last Titration: 08/05/24 13:21 Dose: 50 mcg/min, 15 mls/hr Dextrose (D5w) 500 mls @ 0 mls/hr IV ONCE PRN; Protocol PRN Reason: Adult Acute Hypoglycemia Prot Dextrose (D10w) 125 mls @ 750 mls/hr IV PRN PRN; Protocol PRN Reason: Adult Acute Hypoglycemia Nursing Protocol Dextrose (D10w) 250 mls @ 1,000 mls/hr IV PRN PRN; Protocol PRN Reason: Adult Acute Hypoglycemia Nursing Protocol Sodium Chloride (Sodium Chloride 0.9%) 1,000 mls @ 0 mls/hr IV .Q0M PRN PRN Reason: hypotension or symptomatic Albumin Human (Albumin) 12.5 gm in 50 mls @ 60 mls/hr IV PRN PRN PRN Reason: Hypotension and/or symptomatic Sodium Chloride (Sodium Chloride 0.9%) 1,000 mls @ 50 mls/hr IV .Q20H [facility] Last Admin: 08/06/24 05:25 Dose: 50 mls/hr Insulin Human Lispro (Insulin Lispro 100 Unit/1 Ml) 0 unit SUBCUT WM&BEDTIME [facility]; Protocol Last Admin: 08/06/24 07:45 Dose: Not Given Metoprolol Tartrate (Metoprolol Tartrate 50 Mg Tablet) 100 mg PO BID@0900,2100 [facility] Last Admin: 08/05/24 20:28 Dose: 100 mg Morphine Sulfate (Morphine 4 Mg/Ml Sdv 1 Ml) 2 mg IVP Q4H PRN PRN Reason: SEVERE PAIN Last Admin: 08/05/24 20:29 Dose: 2 mg Ondansetron HCl (Ondansetron 2 Mg/Ml Sdv 2 Ml) 4 mg IVP Q8H PRN PRN Reason: vomiting, or N/V if npo Pantoprazole Sodium (Pantoprazole 40 Mg Sdv) 40 mg IVP Q24H [facility] Last Admin: 08/05/24 20:29 Dose: 40 mg Vitals/I&O/Wt Last Vital Signs Temp 98.5 F 08/06/24 08:00 Pulse 69 08/06/24 08:00 Resp 18 08/06/24 08:00 BP 128/55 08/06/24 08:00 Pulse Ox 99 08/06/24 08:00 O2 Del Method Nasal Cannula 08/06/24 08:00 O2 Flow Rate 2 08/06/24 08:00 08/05/24 08/06/24 08/06/24 22:59 06:59 14:59 Intake Total 600 / 1267.475 Output Total 450 / 1200 Balance 600 / 517.475 -450 / 67.475 Weight last 48 hrs Weight 104.462 kg Weight 102.648 kg Weight 100.9 kg Physical Exam 2 Narrative: VSS comfortable in bed, NARD on nc 02 heent- nc/at neck supple lungs diminished and crackles heart reg + s1, s2 abd soft, nt, nd, + bs ext trace b/l leg edema neuro- a,a, o x 3 Data 08/06/24 02:02 08/06/24 02:02 A&P Assessment and plan (1) End stage renal disease: Plan 1. End-stage renal disease: On MWF schedule, HD post cath today or tomorrow -normal phos 2. NSTEMI: lab intern today as per cardiology 3. Hypertension: Blood pressure controlled 4. History of diabetes- per medicine 5. Anemia: give ELROY. consider prbc tx w/ HD as he has CAD, ESRD and anemia -edith k iron studies patient consents to hemodialysis and to telehealth visit Patient evaluated using audiovisual cart. PDMP PDMP Reviewed: Not Reviewed Attestations 2 Medical Necessity Statement*: +NSTEMI, anemia Time Spent in Patient Care: 16 - 35 minutes (>than 50% of time sp ent in counselling and/or direct pt care on unit) . Coding Level of Care Code Acute Code for Chg Fwd Diagnoses End stage renal disease N18.6
[2024-08-06 08:46] LABS: Partial Thromboplastin Time 60.1 SECONDS (23.9-36.7)
[2024-08-06 09:12] LABS: Ferritin 337 ng/mL (30-400); Iron 19 ug/dL (59-158); Percent Saturation 13.9 % (20-50); Total Iron Binding Capacity 136 mcg/dl; Unsaturated Iron Binding 117 ug/dL (112-347)
[2024-08-06] MEDS: FUROsemide 10 mg/mL SDV 10mL 60 MG IVP (09:12)
[2024-08-06] MEDS: aspirin 325 mg Tablet PO (09:13)
[2024-08-06] MEDS: amlodipine 5 mg Tablet PO (09:13)
[2024-08-06] MEDS: clopidogrel 75 mg Tablet PO (09:13)
[2024-08-06] MEDS: hyDRALAzine 25 mg Tablet 50 MG PO ×2 (09:13→20:23)
[2024-08-06] MEDS: diphenhydrAMINE 50 mg Capsule PO (09:13)
[2024-08-06] MEDS: EPOETIN ALFA-EPBX 10,000 UNIT/ML SDV (ESRD) 10000 UNIT SUBCUT (09:33)
[2024-08-06] MEDS: metoprolol tartrate 50 mg Tablet 100 MG PO ×2 (09:34→20:21)
[2024-08-06] MEDS: acetaminophen 325 mg Tablet 650 MG PO (09:34)
--- NOTE | 2024-08-06 09:47 | PC.CHAP ---
Pastoral Care Encounter/Spiritual Assessment Type of Contact [] Declined air table operator visit [] Patient/Family/Request visit [] Outpatient visit [] Follow-up visit [] Physician referral [] Code/Alert [x] Routine visit [] Staff referral [] Actively dying [] Patient sleeping [] Family support [] [] Out of room [] Palliative care [] [] Receiving care in room [] Pre-surgical visit [] Trauma [] Long length of stay [] ICU visit [] Other: Relational/Emotional Strength [] Patient feels connected with others/family/visitors/staff [] Distress [] Loneliness/isolation [] Abandonment Spirituality of Patient [x] Person of Gwendolyn [] Attends Buddhist of their Gwendolyn [x] Believes in Prayer [] Reads Bible or Samaritan materials [] There are Spiritual issues to be addressed Surgical Corsetier Interventions [x] Prayer [x] Active listening [] Non-anxious presence [] Spiritual/emotional support [] Crisis/trauma care [] Spiritual counseling [] Bereavement support [] Provided bereavement packet [x] Provided Bible/devotional materials [] Provided toy/stuffed animal, coloring book to patient or family member [] Provided Communion [] Anointing/[place] [] Salvation [x] Completed spiritual assessment [] Other: Impact on Illness or Injury [] Angry [] Fearful [] Anxious [] Often cries [] Exhaustion [] Unable to work [] Unable to attend moravian [] Unable to walk/stand [] Unable to read [] Unable to drive [] Unable to eat/drink [] Unable to sleep [] Unable to be with family [] Patient intubated [] Other: Summary Time spent with patient 5 min
[2024-08-06] MEDS: nitroglycerin drip 50 MG/250 ML PREMIX 15 MG IV (10:11)
[2024-08-06] MEDS: lactulose oral liq 20 gm/30 mL UDC 10 GM PO (10:12)
[2024-08-06] MEDS: magnesium hydroxide 30 mL UDC PO (10:12)
[2024-08-06 11:43] LABS: Glucose Point of Care 190 mg/dL (70-110)
[2024-08-06] MEDS: insulin lispro 100 unit/1 mL SUBCUT (11:57)
--- NOTE | 2024-08-06 13:01 | P.PN_ITS ---
Subjective 2 Subjective: Hospital course, labs appreciated. Today morning patient seen laying comfortably in bed denies any nausea, vomiting, headache or chest pain. Blood pressure slightly elevated. Heart rate mostly in low 60s to high 50s. Remains on 2 L. Vitals/I&O/Wt Last Vital Signs Temp 98.1 F 08/06/24 11:54 Pulse 58 L 08/06/24 11:54 Resp 16 08/06/24 11:54 BP 114/56 08/06/24 11:54 Pulse Ox 95 08/06/24 11:54 O2 Del Method Nasal Cannula 08/06/24 11:54 O2 Flow Rate 2 08/06/24 11:54 08/05/24 08/06/24 08/06/24 22:59 06:59 14:59 Intake Total 600 / 1267.475 217.825 / 1485.300 381.25 / 381.25 Output Total 450 / 1200 Balance 600 / 517.475 -232.175 / 285.300 381.25 / 381.25 Weight last 48 hrs Weight 104.462 kg Weight 102.648 kg Weight 100.9 kg Physical Exam 2 Const: COMMON NORMALS: no acute distress and patient oriented x3 HENMT: COMMON NORMALS: normocephalic HEAD & SCALP: normocephalic Eye: COMMON NORMALS: Equal, round and reactive pupils present PUPIL: Yes Equal, round and reactive pupils present Neck/C-Spine: COMMON NORMALS: no JVD Resp: COMMON NORMALS: normal respiratory effort, No retractions, No use of accessory muscles and clear to auscultation bilaterally AUSCULTATION: clear to auscultation bilaterally Cardio: COMMON NORMALS: no JVD, regular rate, regular rhythm, S1 normal heart sound present and S2 normal heart sound present RATE: regular rate RHYTHM: regular rhythm HEART SOUNDS: S1 normal heart sound present and S2 normal heart sound present GI: COMMON NORMALS: Normal to inspection, nondistended, normoactive bowel sounds present, Soft to palpation and non-tender PALPATION: Yes Soft to palpation Extremity: COMMON NORMALS: no pedal edema NARRATIVE EXTREMITY EXAM: 1+ edema Neuro: COMMON NORMALS: patient oriented x3, CN's II-XII intact bilaterally and moves all extremities Psych: COMMON NORMALS: mental status grossly normal Data 08/06/24 14:00 08/06/24 02:02 A&P Assessment and plan (1) Nonischemic congestive cardiomyopathy: (2) Hyperlipidemia: Qualifiers: Hyperlipidemia type: mixed hyperlipidemia Qualified Code(s): E78.2 - Mixed hyperlipidemia (3) CHF (congestive heart failure): Qualifiers: Heart failure chronicity: acute on chronic Heart failure type: combined systolic and diastolic Qualified Code(s): I50.43 - Acute on chronic combined systolic (congestive) and diastolic (congestive) heart failure (4) Hypertension: Qualifiers: Hypertension type: primary hypertension Qualified Code(s): I10 - Essential (primary) hypertension (5) Diabetes type 2 with atherosclerosis of arteries of extremities: (6) End stage renal disease: (7) Non-STEMI (non-ST elevated myocardial infarction): (8) Chest pain: Plan Chest pain, NSTEMI -Coronary angiogram 06/2024 Diagnostic Findings * Left Main has no significant disease. * Left Anterior Descending has patent proximal vessel stents. * Circumflex has no significant disease. * Mid Right Coronary Artery: moderate 50-60% stenosis, DINH: 3 flow. * INDICATION: Patient presented with STEMI and underwent successful revascularization of proximal LAD with 2 stents. On arrival to ICU, patient again started having chest discomfort and had persistent ST elevations. Patient was brought emergently back to the [facility] for rechecking recently placed stents and coronary vasculature. * Coronary angiography shows right dominance. Conclusions 1. Patent recently placed proximal LAD stents. Moderate mid RCA stenosis. CONCLUSIONS Limited Echo Mildly increased left ventricular cavity size. Mildly decreased left ventricular systolic function. Left ventricular ejection fraction is estimated at 50 %. Global left ventricular hypokinesis. No pericardial effusion. Right atrial pressure is around 10 mm of mercury. Plan -Serial EKGs, serial troponins, telemetry monitoring -Aspirin, statin, Plavix, beta-kimani -Heparin drip -Nitro drip -Monitor closely -Cardiology consulted, plans on coronary angiography End-stage renal disease on dialysis, pitting edema improved, dialysis yesterday Type 2 diabetes mellitus, low-dose sliding scale Plan for the day: Hemoglobin continues to trend down gradually. 7.6 today. Patient has not had a bowel movement since Tuesday. Cannot rule out anemia in setting of end-stage renal disease versus slow possible GI bleed. Target hemoglobin more than 7. Repeat hemoglobin in afternoon. Check stool for occult blood. If occult blood is positive will consult surgery for possible colonoscopy otherwise if negative plan for cardiac angiogram in next 24 hours. Continue with heparin drip for now. Patient is chest pain-free. Goal blood pressure less than 140/90 mmhg. Continue with amlodipine. Home dose of hydralazine increased to 50 mg 3 times daily. IV Lasix as per nephrology team. 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
--- NOTE | 2024-08-06 13:10 | PC.SOCIAL ---
IMM Update pg 2 of IMM Updated and reviewed w/ patient. Copy provided and copy dated, initialed and placed in chart.
--- NOTE | 2024-08-06 13:54 | P.PN_ITS ---
<Statement entered by Yomaira Sabillon MD - 08/06/24 20:49> Patient was evaluated and cared for in conjunction with an advanced practice practitioner. I personally examined the patient and reviewed the chart and all pertinent data including imaging, telemetry, and laboratory results. I discussed the patient in detail with the advanced practice practitioner. Please see their note for complete H&P testing result and agreed upon plan of care for the patient. Patient had drop in hemoglobin which is significant when from last month 10.8- 7.8 denies any more chest pain GENERAL: Patient is alert, awake and oriented x3. HEART: Regular S1 and S2. No murmur, rub or gallop. LUNGS: Clear to auscultate bilaterally. CENTRAL NERVOUS SYSTEM: Grossly nonfocal. EXTREMITIES: Lower extremities with out edema bilaterally. Assessment and plan Non-ST elevation ID Chronic kidney disease on hemodialysis Anemia Rule out GI bleed with stool guaiac continue aspirin statin Beta-kimani and Plavix, once rule out GI bleed will proceed with left heart cath possible tomorrow Subjective 2 Subjective: Patient is doing okay but has had an unexpected drop in hemoglobin. He is chronically anemic. Hemoglobin is 7.6. This could be due to slow GI bleed or chronic kidney disease. Vitals/I&O/Wt Last Vital Signs Temp 98.1 F 08/06/24 11:54 Pulse 58 L 08/06/24 11:54 Resp 16 08/06/24 11:54 BP 114/56 08/06/24 11:54 Pulse Ox 95 08/06/24 11:54 O2 Del Method Nasal Cannula 08/06/24 11:54 O2 Flow Rate 2 08/06/24 11:54 08/05/24 08/06/24 08/06/24 22:59 06:59 14:59 Intake Total 600 / 1267.475 217.825 / 1485.300 381.25 / 381.25 Output Total 450 / 1200 Balance 600 / 517.475 -232.175 / 285.300 381.25 / 381.25 Weight last 48 hrs Weight 230 lb 4.8 oz Weight 226 lb 4.8 oz Physical Exam 2 Const: OTHER: General: No apparent distress, healthy appearing, well nourished Muskuloskeletal: Full ROM Lymphatic: no lymphedema noted Respiratory: Normal respiratory effort, clear to auscultation bilaterally throughout all lung syed, no use of accessory muscles Cardio: No JVD, regular rate, regular rhythm, S1 S2 normal, no murmurs, peripheral pulses 2+ radial palpated bilaterally GI: Normal to inspection, nondistended Extremities: Full ROM, normal, normal capillary refill, no cyanosis or edema Neuro: Alert and oriented x4, no focal motor deficits Psych: Affect normal, denies suicidal ideation, mental status grossly normal Skin: No rashes or lesions noted, no wounds Data 08/06/24 02:02 08/06/24 02:02 A&P Assessment and plan (1) End stage renal disease on dialysis: (2) Anemia: (3) CHF (congestive heart failure): Qualifiers: Heart failure type: combined systolic and diastolic Heart failure chronicity: acute on chronic Qualified Code(s): I50.43 - Acute on chronic combined systolic (congestive) and diastolic (congestive) heart failure Plan The plan is for this 64-year-old gentleman is to obtain occult stool sample. His anemia could be due to history of renal failure and of chronic disease although slow GI bleed is in the differential. If Hemoccult stool is negative we will be able to do heart cath. If it is positive we will have to hold until further investigation of anemia is done. At this time, he denies chest pain or shortness of breath. PDMP PDMP Reviewed: Not Reviewed Attestations 2 Medical Necessity Statement*: Deferred to primay. Coding Level of Care Code Acute Code for Chg Fwd Diagnoses End stage renal disease on dialysis N18.6; Z99.2 Anemia D64.9 Acute on chronic combined systolic and diastolic congestive heart failure I50.43 Heart failure type: combined systolic and diastolic Heart failure chronicity: acute on chronic
[2024-08-06 14:10] LABS: Hematocrit 22.7 % (37-53)
[2024-08-06 14:44] LABS: Partial Thromboplastin Time 64.7 SECONDS (23.9-36.7)
[2024-08-06] MEDS: heparin drip 25,000 UNIT/500 ML PREMIX 25 UNIT IV (14:47)
[2024-08-06 16:55] LABS: Glucose Point of Care 165 mg/dL (70-110)
[2024-08-06] MEDS: atorvastatin 40 mg Tablet 80 MG PO (20:21)
[2024-08-06] MEDS: pantoprazole 40 mg SDV IVP (20:22)
[2024-08-06 20:38] LABS: Partial Thromboplastin Time 42.6 SECONDS (23.9-36.7)
[2024-08-06 20:42] LABS: Glucose Point of Care 248 mg/dL (70-110)
--- NOTE | 2024-08-06 21:52 | PC.NURSE ---
notified physician on ptt result Pt PTT is 42.6, per protocol to increase to 2 units/kg/hr. verified to doctor if needed bolus, per doctor Landa to Not give bolus due to low Hgb&Hct.
[2024-08-07] VITALS (27 sets, daily range): BP systolic 125–171; BP diastolic 57–97; PULSE 57–75; RESP 10–29; TEMP 36.6–37.1; O2SAT 82–99
--- NOTE | 2024-08-07 00:55 | PC.NURSE ---
Doctor notified that patient has not had a bowel movement in 12 hours despite being given milk of mag and lactulose midday yesterday. Cardiology and hospitalist waiting on stool sample for FOBT. New order for one time dose of lactulose given. Instructed to give to patient when he awakens. Order entered.
[2024-08-07] MEDS: lactulose oral liq 20 gm/30 mL UDC PO (03:03)
[2024-08-07] MEDS: morphine 4 mg/mL SDV 1 mL 2 MG IVP (03:09)
--- NOTE | 2024-08-07 03:15 | PC.NURSE ---
patient given 2mg morphine for 8/10 chest pain. Patient stated it felt like a heavy pressure on chest. Lactulose also given for no bowel movement in the past 12 hours despite being given laxatives.
[2024-08-07 03:20] LABS: Platelet Count 248 10^3/cmm (157-399)
[2024-08-07 03:36] LABS: Partial Thromboplastin Time 43.8 SECONDS (23.9-36.7)
[2024-08-07 03:43] LABS: Alanine Aminotransferase < 5 U/L (0-41); Albumin Level 2.7 g/dL (3.5-5.2); Alkaline Phosphatase 105 U/L (40-130); Anion Gap 16.8 (5-19); Aspartate Amino Transferase 6 U/L (0-40); Blood Urea Nitrogen 39 mg/dL (8-23); Calcium 8.9 mg/dL (8.5-10.5); Calcium 9.2 mg/dL (8.5-10.5); Carbon Dioxide 24 mmol/L (22-29); Chloride 101 mmol/L (98-107); Globulin 3.3 g/dL (1.3-4.6); Glomerular Filtration Rate 14.4 mL/min (90-130); Glucose 205 mg/dL (65-115); Magnesium 2.1 mg/dL (1.7-2.3); Osmolality Calculated 299 mOsm/kg (285-295); Phosphorus 3.8 mg/dL (2.5-4.5); Potassium 4.8 mmol/L (3.5-5.1); Sodium 137 mmol/L (136-145); Total Bilirubin 0.2 mg/dL (0.15-1.2)
[2024-08-07 03:49] LABS: Parathyroid Hormone 76.1 pg/mL (15-65)
[2024-08-07 06:22] LABS: Glucose Point of Care 181 mg/dL (70-110)
[2024-08-07] MEDS: metoprolol tartrate 50 mg Tablet 100 MG PO ×2 (07:40→20:38)
[2024-08-07] MEDS: amlodipine 5 mg Tablet PO (07:40)
[2024-08-07] MEDS: hyDRALAzine 25 mg Tablet 50 MG PO ×3 (07:41→20:38)
[2024-08-07] MEDS: clopidogrel 75 mg Tablet PO (07:41)
[2024-08-07] MEDS: aspirin 81 mg EC Tablet PO (07:41)
[2024-08-07] MEDS: FUROsemide 10 mg/mL SDV 10mL 60 MG IVP (07:42)
[2024-08-07 08:49] LABS: Basophils % 0.4 %; Eosinophils # 0.1 10^3/uL (0.0-0.8); Eosinophils % 0.9 %; Hematocrit 25.6 % (37-53); Lymphocytes # 1.7 10^3/uL (0.8-4.8); Lymphocytes % 18.5 %; Mean Corpuscular Hemoglobin 27.6 pg (27-33); Mean Corpuscular Volume 86.2 fl (82-101); Mean Platelet Volume 10.1 fL (7.4-10.4); Monocytes # 0.8 10^3/uL (0.2-0.9); Neutrophils # 6.57 10^3/uL (1.8-7.7); Neutrophils % 70.8 %; Nucleated Red Blood Cells % 0 %; Platelet Count 252 10^3/cmm (157-399); Red Blood Count 2.97 10^6/uL (3.85-5.65); Red Cell Distribution Width 13.2 % (12.1-15.1); White Blood Count 9.29 10^3/uL (3.29-11.43)
[2024-08-07] MEDS: heparin drip 25,000 UNIT/500 ML PREMIX 30 UNIT IV (08:49)
--- NOTE | 2024-08-07 08:52 | PC.NURSE ---
Hgb is up to 8.2 this morning. Was 7.3 yesterday. He is getting frustrated. He wants to eat. Patient is pending [facility] time undertermined at this time.
--- NOTE | 2024-08-07 09:51 | XACV_ITS ---
Exam Room: 2 Ht: 175 cm Wt: 104 kg BSA: 2.29 m2 Gender: Male : 1960 Any Known Allergies: No known allergies Exam Priority: Routine Procedure(s): Procedure Description: Diagnostic procedure Procedure Description: Miscellaneous Procedure Description: ACT Procedure Description: Coronary Angiography Procedure Description: Pressure Wire MELISSA, Ramandeep; Diagnostic Cath Status: Elective Diagnostic Findings * Left Main has no disease. * Circumflex has no disease. * Mid Left Anterior Descending: luminal irregularities 20% stenosis, DINH: 3 flow. * Mid Right Coronary Artery: mild 40% stenosis, DINH: 3 flow, iFR performed: ratio is 0.93. * Coronary angiography shows right dominance. Conclusions 1. There is mild coronary artery disease with two vessel disease. Recommendations * Continue current medical management and risk factor modification. Diagnostic RX Recommendation: medical therapy and/or counseling Pressures Phase:Rest AO : 117 / 53 ( 77 ) @ 11:12:00 AM 143 / 72 ( 95 ) @ 11:21:00 AM Clinical Evaluation EBL: 5mL-10mL Procedural Details Procedure Consent Obtained. Current Diagnosis : NSTEMI. Pre-Procedure Time Out. Identified patient by full name and date of as verbalized by the patient/guarantor. Does the consent match the physician's order: Yes. Accurate & Complete Informed Consent: Yes. Inpatient/Outpatient History & Physical on Chart: Yes. If H&P is completed, is and addenduem needed: No; If yes, is the addendum complete: N/A. Visualize and Verify Site with Patient/Guarantor: N/A. Relevant Radiology Images available: Yes. Pre-op teaching completed and patient verbalized understanding. The risks, benefits, and alternatives of sedation and/or procedure were discussed by physician. The patient agrees to continue. Procedure started. [facility] Clinical Fraility Score: 5: Mildly Frail. Special Technical Operations Officer Indications: ACS > 24 hours. Chest Pain Symptom Assessment: Typical Angina Symptoms. Correct patient, site and procedure confirmed by cath team. Current diagnosis: NSTEMI. PERRLA. Strong, equal hand watch inspector bilaterally. Lungs clear x 5 lobes. IV Fluids: 0.9% NaCl at KVO. 0 mL infused prior to quality assurance qa lab technician. Oxygen started at 2liters/min via nasal canula. right groin was prepped with chloroprep then draped in the usual sterile fashion. right radial was prepped with chloroprep then draped in the usual sterile fashion. Physician arrived. Baseline sample Acquired. HR: 65 BPM. IV Site on Arrival: 20 gauge in the right anticubital. Pre Procedural Pulses: right radial was 2+. A 20 gauge IV was started in the left wrist using aseptic technique. Physician scrubbed in. Immediate Pre-Procedure Time Out. Correct Patient: Yes; Correct Procedure: Yes; Correct Site: Yes; Correct Patient Position: Yes; Correct Supplies: Yes; Dried Flammable Prep: Yes; Blood Products Available: N/A;. Lidocaine 1% infiltrated to the right radial. Arterial access obtained. A 5 latvian Alejandro catheter in over wire. Contrast hand injected through the catheter. ACT drawn. Results 135 seconds. Therapeutic limits - pre-heparin administration 90-150 seconds and monitoring heparin during a vascular procedure >250 seconds. Multiple views taken of left coronary artery. Catheter redirected to the RCA. Catheter removed over the exchange wire. Multiple views taken of right coronary artery. 6 latvian JR 4 guide catheter was inserted over the wire. Add inventory: Co-pilot plant operator, endoflator. iFR pressure wire in through guide catheter to mid RCA. Guidewire advanced across lesion. IFR of mid RCA 0.94mmhg. IFR wire out. Guide catheter out. Post Procedure: Pulses reassessed and unchanged. PERRLA. Strong, equal hand watch inspector bilaterally. No VTE prophylaxis required. Medication's Wasted: Lidocaine 1% = 18 mL. Medication's Wasted: Heparin = 1000 unit. Medication's Wasted: Other = Fentanyl 25mcg. Medication's Wasted: Nitro = 49.8 mg. Total IV fluids: 25 mL. A TR Band was successful obtaining hemostatsis at the Right Radial artery insertion site. Post-op diagnosis: Non-obstructive CAD, Non-significant IFR result. Complications: None. Estimated blood loss: 5mL-10mL. Responsiveness - Normal response to verbal stimuli; alert and oriented, PERRLA. Airway - Unaffected, no intervention required; spontaneous ventilation. Circulation: W/N/L, pulses unchanged. Nausea/Vomiting: No. Procedure completed. Patient transferred by bed to 1st floor. Vital chart was stopped. Access Site Site: Right Radial artery Sheath Size: 6 Fr Hemostasis Method: TR Band Hemostasis Success: Successful Procedure Medications Start: 11:00 AM Stop: 11:00 AM Medication: Versed Amount: 1 mg Route: I.V. Start: 11:00 AM Stop: 11:00 AM Medication: Fentanyl Amount: 50 mcg Route: I.V. Start: 11:05 AM Stop: 11:05 AM Medication: Nitrogylcerin Amount: 200 mcg Route: I.A. Start: 11:14 AM Stop: 11:14 AM Medication: Heparin Amount: 7000 units Route: I.V. Start: 11:27 AM Stop: 11:27 AM Medication: Versed Amount: 1 mg Route: I.V. Start: 11:27 AM Stop: 11:27 AM Medication: Fentanyl Amount: 25 mcg Route: I.V. I, the attending physician, have reviewed and verified all procedure medications. Yes, all medications given per verbal order History/Risk Factors Hypertension: Yes Dyslipidemia: Yes Peripheral Arterial Disease (PAD): No Myocardial Infarction (CA): Yes Obesity: No Renal Disease: Yes Dialysis: Current Prior Interventions PCI: Yes CABG: No Valve Surgery: No Date of PCI: 06/29/2024 Report Signatures Finalized by Yomaira Sabillon MD on 08/20/2024 12:39 AM
--- NOTE | 2024-08-07 10:11 | PM.PN ---
Subjective Subjective: dec edema. still sob. no cp. for medical laboratory technicians today. no n/v/f/c/rudolph/d Medications: Reviewed: Yes Medication Review Details: Current Medications Acetaminophen (Acetaminophen 325 Mg Tablet) 650 mg PO Q6H PRN PRN Reason: Mild/Mod Pain Or Temp >/= 101 Last Admin: 08/06/24 09:34 Dose: 650 mg Amlodipine Besylate (Amlodipine 5 Mg Tablet) 5 mg PO DAILY [facility] Last Admin: 08/07/24 07:40 Dose: 5 mg Aspirin (Aspirin 81 Mg Ec Tablet) 81 mg PO DAILY [facility] Last Admin: 08/07/24 07:41 Dose: 81 mg Atorvastatin Calcium (Atorvastatin 40 Mg Tablet) 80 mg PO BEDTIME [facility] Last Admin: 08/06/24 20:21 Dose: 80 mg Clopidogrel Bisulfate (Clopidogrel 75 Mg Tablet) 75 mg PO DAILY [facility] Last Admin: 08/07/24 07:41 Dose: 75 mg Furosemide (Furosemide 10 Mg/Ml Sdv 10ml) 60 mg IVP Q24H [facility] Last Admin: 08/07/24 07:42 Dose: 60 mg Glucagon (Glucagon 1 Mg/Ml Kit 1 Ml) 1 mg IM ONCE PRN; Protocol PRN Reason: Adult Acute Hypoglycemia Nursing Prot. Heparin Sodium (Porcine) (Heparin 5,000 Unit/Ml Inj 1 Ml) 0 unit IVP PRN PRN; Protocol PRN Reason: Heparin Weight Based Protocol -Subsequent Bolus Hydralazine HCl (Hydralazine 25 Mg Tablet) 50 mg PO TID [facility] Last Admin: 08/07/24 07:41 Dose: 50 mg Heparin Sodium/Sodium Chloride (Heparin Drip) 25,000 unit in 500 mls @ 0 mls/hr IV CONT ESTRELLA; Protocol Last Admin: 08/07/24 08:49 Dose: 14.83 unit/kg/hr, 30 mls/hr Dextrose (D5w) 500 mls @ 0 mls/hr IV ONCE PRN; Protocol PRN Reason: Adult Acute Hypoglycemia Prot Dextrose (D10w) 125 mls @ 750 mls/hr IV PRN PRN; Protocol PRN Reason: Adult Acute Hypoglycemia Nursing Protocol Dextrose (D10w) 250 mls @ 1,000 mls/hr IV PRN PRN; Protocol PRN Reason: Adult Acute Hypoglycemia Nursing Protocol Sodium Chloride (Sodium Chloride 0.9%) 1,000 mls @ 0 mls/hr IV .Q0M PRN PRN Reason: hypotension or symptomatic Albumin Human (Albumin) 12.5 gm in 50 mls @ 60 mls/hr IV PRN PRN PRN Reason: Hypotension and/or symptomatic Insulin Human Lispro (Insulin Lispro 100 Unit/1 Ml) 0 unit SUBCUT WM&BEDTIME ESTRELLA; Protocol Last Admin: 08/07/24 08:25 Dose: Not Given Magnesium Hydroxide (Magnesium Hydroxide 30 Ml Udc) 30 ml PO DAILY PRN PRN Reason: CONSTIPATION Last Admin: 08/06/24 10:12 Dose: 30 ml Metoprolol Tartrate (Metoprolol Tartrate 50 Mg Tablet) 100 mg PO BID@0900,2100 ESTRELLA Last Admin: 08/07/24 07:40 Dose: 100 mg Morphine Sulfate (Morphine 4 Mg/Ml Sdv 1 Ml) 2 mg IVP Q4H PRN PRN Reason: SEVERE PAIN Last Admin: 08/07/24 03:09 Dose: 2 mg Ondansetron HCl (Ondansetron 2 Mg/Ml Sdv 2 Ml) 4 mg IVP Q8H PRN PRN Reason: vomiting, or N/V if npo Pantoprazole Sodium (Pantoprazole 40 Mg Sdv) 40 mg IVP Q24H ESTRELLA Last Admin: 08/06/24 20:22 Dose: 40 mg Vitals/I&O/Wt Last Vital Signs Temp 98.7 F 08/07/24 07:50 Pulse 66 08/07/24 07:50 Resp 16 08/07/24 07:50 BP 163/72 08/07/24 07:50 Pulse Ox 99 08/07/24 07:50 O2 Del Method Nasal Cannula 08/07/24 07:50 O2 Flow Rate 2 08/07/24 07:50 08/06/24 08/07/24 08/07/24 22:59 06:59 14:59 Intake Total 643.75 / 1673.50 183.183 / 1856.683 153.067 / 153.067 Output Total 500 / 500 200 / 700 250 / 250 Balance 143.75 / 1173.50 -16.817 / 1156.683 -96.933 / -96.933 Weight last 48 hrs Weight 104.462 kg Weight 104.462 kg Physical Exam Narrative: VS noted comfortable in bed, NARD on nc heent- nc/at neck supple lungs diminished and crackles b/l heart reg + s1, s2 abd soft, nt, nd, + bs ext no b/l leg edema neuro- a,a, o x 3 Data 08/07/24 08:42 08/07/24 03:03 A&P Assessment and plan (1) End stage renal disease: 1/ End-stage renal disease: On MWF schedule, HD post cath today -normal phos 2. NSTEMI: medical laboratory technicians today as per cardiology 3. Hypertension: Blood pressure elevated. monitor w/ HD 4. History of diabetes- per medicine 5. Anemia: give ELROY. dose given today -iron sat 14% ferritin 337- give iv iron 6. pth 76- no vit d analouges patient consents to hemodialysis and to telehealth visit Patient evaluated using audiovisual cart. Plan 1. End-stage renal disease: On MWF schedule, HD post cath today -normal phos 2. NSTEMI: medical laboratory technicians today as per cardiology 3. Hypertension: Blood pressure elevated. monitor w/ HD 4. History of diabetes- per medicine 5. Anemia: give ELROY. dose given today -iron sat 14% ferritin 337- give iv iron 6. pth 76- no vit d analouges patient consents to hemodialysis and to telehealth visit Patient evaluated using audiovisual cart. PDMP PDMP Reviewed: Not Reviewed Attestations Medical Necessity Statement*: AMI, ESRD, HTN Time Spent in Patient Care: 16 - 35 minutes (>than 50% of time spent in counselling and/or direct pt care on unit). Coding Level of Care Code Acute Code for Chg Fwd Diagnoses End stage renal disease N18.6
[2024-08-07 10:23] LABS: Partial Thromboplastin Time 43.3 SECONDS (23.9-36.7)
--- NOTE | 2024-08-07 10:55 | W.PM.OPSUD ---
Surgery/Procedure H&P Update DATE OF PROCEDURE: August 07, 2024 DATE H&P PERFORMED: 08/04/24 H&P UPDATE INFORMATION: I have reviewed H&P completed within last 30 days, I have examined patient prior to procedure and No changes to prior documentation PREOP DIAGNOSIS: Non-ST elevation WA PRIMARY INDICATION FOR PROCEDURE: Patient has prior PCI to LAD. At that time it was noted that patient has mid RCA moderate lesion. Patient presented with worsening of chest pain admitted and ruled in for non-ST elevation WA. Because of low hemoglobin level he was watched closely since hemoglobin is stable and he is already taking Plavix therefore we will take him to the [facility] today PATIENT REASSESSED PRIOR TO SEDATION, WITH NO CHANGE NOTED: Yes PHYSICAL EXAM: alert, oriented x 3, clear to auscultation bilaterally, regular rate & rhythm and operative site marked OTHER PERTINENT EXAM FINDINGS: Patient has been explained all risk-benefit and alternative for the procedure. He understand risk of stroke major minor bleed urgent or emergent CABG vascular surgery pseudoaneurysm hematoma. He would like to proceed with it.
--- NOTE | 2024-08-07 11:35 | P.PCN_ITS ---
Procedure Note: Date of procedure: 08/07/24 Pre-procedure diagnosis: Non- STEMI Post-procedure diagnosis: same Procedure: Patient had coronary angiogram today, left main is normal, LAD has luminal irregularities with patent previously placed proximal stent. left circumflex has luminal irregularities without significant stenosis, RCA has mid 70% stenosis not significant by IFR 0.94. Medical management advised Radial band as per protocol Discontinue heparin Patient can proceed with dialysis today Continue aspirin statin beta-kimani and clopidogrel Possible discharge tomorrow Coding Level of Care Code Acute Code for [employer]
[2024-08-07] MEDS: ferric gluconate 125 MG in sodium chloride 0.9% (100 ml) 100 ML 110 MG IV (12:09)
[2024-08-07 12:18] LABS: Glucose Point of Care 175 mg/dL (70-110)
[2024-08-07] MEDS: EPOETIN ALFA-EPBX 10,000 UNIT/ML SDV (ESRD) 10000 UNIT SUBCUT (12:18)
[2024-08-07] MEDS: insulin lispro 100 unit/1 mL SUBCUT (13:08)
--- NOTE | 2024-08-07 13:43 | P.PN_ITS ---
Subjective 2 Subjective: 64-year-old male with a past medical his tory of end-stage renal disease on dialysis, type 2 diabetes mellitus, vitamin D deficiency, hypertension, dyslipidemia, and coronary artery disease with recent ST-elevation [place] status post successful revascularization of proximal LAD with 2 stents on 06/2024, presented to the hospital on 08/03/2024 with chest pain. Laboratory workup on arrival showed WBC 10, hemoglobin 9, hematocrit 27, platelet count 237, sodium 138, potassium 4.0, chloride 96, bicarbonate 33, BUN 16, and creatinine 1.80. Noted to have elevated troponin levels. Upon admission, cardiology was consulted and the patient was started on nitro and heparin drip. Additionally, he was continued on aspirin, statins, Plavix, and beta-kimani. Nephrology was also consulted for assistance with dialysis. Echocardiogram repeated during hospitalization showed an ejection fraction of 50%. Noted to have slight worsening of his anemia with hemoglobin ranging from 7-9 since June hospitalization. No bleeding episodes during this stay. Iron studies showed iron level 19, TIBC 136, iron saturation 13.9%, ferritin 337. Additional workup included PTH 76.1, calcium 9.2. Discussed with cardiology who plan to take him for repeat coronary angiogram today. The patient continued to note intermittent chest pain. Remained on supplemental oxygen at 2 L which he does not wear at home. Oxygen saturations remained above 92%. Denied shortness of breath. Vitals/I&O/Wt Last Vital Signs Temp 98.7 F 08/07/24 07:50 Pulse 58 L 08/07/24 11:30 Resp 10 L 08/07/24 11:30 BP 137/64 08/07/24 11:47 Pulse Ox 90 08/07/24 11:47 O2 Del Method Room Air 08/07/24 11:30 O2 Flow Rate 2 08/07/24 07:50 08/06/24 08/07/24 08/07/24 22:59 06:59 14:59 Intake Total 643.75 / 1673.50 183.183 / 1856.683 202.567 / 202.567 Output Total 500 / 500 200 / 700 700 / 700 Balance 143.75 / 1173.50 -16.817 / 1156.683 -497.433 / -497.433 Weight last 48 hrs Weight 104.462 kg Weight 104.462 kg Physical Exam 2 Const: COMMON NORMALS: no acute distress and patient oriented x3 HENMT: COMMON NORMALS: normocephalic HEAD & SCALP: normocephalic Eye: COMMON NORMALS: Equal, round and reactive pupils present PUPIL: Yes Equal, round and reactive pupils present Neck/C-Spine: COMMON NORMALS: no JVD Resp: COMMON NORMALS: normal respiratory effort, No retractions, No use of accessory muscles and clear to auscultation bilaterally AUSCULTATION: clear to auscultation bilaterally Cardio: COMMON NORMALS: no JVD, regular rate, regular rhythm, S1 normal heart sound present and S2 normal heart sound present RATE: regular rate RHYTHM: regular rhythm HEART SOUNDS: S1 normal heart sound present and S2 normal heart sound present GI: COMMON NORMALS: Normal to inspection, nondistended, normoactive bowel sounds present, Soft to palpation and non-tender PALPATION: Yes Soft to palpation Extremity: COMMON NORMALS: no pedal edema NARRATIVE EXTREMITY EXAM: 1+ edema Neuro: COMMON NORMALS: patient oriented x3, CN's II-XII intact bilaterally and moves all extremities Psych: COMMON NORMALS: mental status grossly normal Data 08/07/24 08:42 08/07/24 03:03 A&P Assessment and plan (1) Nonischemic congestive cardiomyopathy: (2) Hyperlipidemia: Qualifiers: Hyperlipidemia type: mixed hyperlipidemia Qualified Code(s): E78.2 - Mixed hyperlipidemia (3) CHF (congestive heart failure): Qualifiers: Heart failure type: combined systolic and diastolic Heart failure chronicity: acute on chronic Qualified Code(s): I50.43 - Acute on chronic combined systolic (congestive) and diastolic (congestive) heart failure (4) Hypertension: Qualifiers: Hypertension type: primary hypertension Qualified Code(s): I10 - Essential (primary) hypertension (5) Diabetes type 2 with atherosclerosis of arteries of extremities: (6) End stage renal disease: (7) Non-STEMI (non-ST elevated myocardial infarction): (8) Chest pain: Plan Acute Coronary Syndrome - 64-year-old male with extensive cardiac history presenting with chest pain and elevated troponins, concerning for acute coronary syndrome. Recent echocardiogram showed preserved ejection fraction of 50%. - Recent angiogram on 07/21 discussed above. Differential Diagnosis: 1. NSTEMI 2. Non-cardiac 3. Coronary vasospasm Plan: 1. Continue aspirin, Plavix, statin, and beta-kimani therapy. 2. Scheduled for cardiac catheterization today per cardiology recommendations. End-Stage Renal Disease on Dialysis - Chronic kidney disease requiring dialysis, likely contributing to anemia and electrolyte abnormalities. Nephrology consulted for ongoing management. - Started on Lasix IV, EPo per nephrology Plan: 1. Continue scheduled dialysis sessions. 2. Nephrology to follow and optimize dialysis prescription. Anemia - Hemoglobin ranging from 7-9, likely multifactorial in the setting of chronic kidney disease and possible acute blood loss. Differential Diagnosis: 1. Iron deficiency anemia 2. Anemia of chronic disease 3. Occult gastrointestinal bleeding Plan: 1. Monitor hemoglobin and hematocrit closely. 2. IV ferric gluconate 125 mg daily from 08/07/2024 - 08/14/2024 per nephrology. 3. Erythropoietin administered on 08/07/2024. 4. Fecal occult blood test ordered and pending to evaluate for gastrointestinal bleeding. 5. Transfuse packed red blood cells if hemoglobin drops below 7 or symptomatic. Type 2 Diabetes Mellitus - Noted in past medical history, likely contributing to microvascular complications. Plan: 1. Monitor blood glucose levels closely. 2. Adjust insulin regimen as needed based on renal function and nutritional status. Hypertension - Noted in past medical history, currently managed with hydralazine and Norvasc. Plan: 1. Continue current antihypertensive regimen. 2. Monitor blood pressure closely, goal <140/90 mmHg. Dyslipidemia - Noted in past medical history, currently managed with high-intensity statin therapy (Lipitor 80 mg daily). Plan: 1. Continue statin therapy for secondary prevention of cardiovascular events. 2. Monitor lipid panel and liver function tests periodically. 3. Educate on importance of dietary modifications and exercise for lipid management. Vitamin D Deficiency - Noted in past medical history, likely related to chronic kidney disease and limited sun exposure. Plan: 1. Replacement as ordered. PDMP PDMP Reviewed: Not Reviewed Attestations 2 Medical Necessity Statement*: AMI, ESRD, HTN Time Spent in Patient Care: 16 - 35 minutes (>than 50% of time sp ent in counselling and/or direct pt care on unit) . Coding Level of Care Code Acute Code for Chg Fwd Diagnoses Nonischemic congestive cardiomyopathy I42.0 Mixed hyperlipidemia E78.2 Hyperlipidemia type: mixed hyperlipidemia Acute on chronic combined systolic and diastolic congestive heart failure I50.43 Heart failure type: combined systolic and diastolic Heart failure chronicity: acute on chronic Primary hypertension I10 Hypertension type: primary hypertension Diabetes type 2 with atherosclerosis of arteries of extremities E11.51; I70.209 End stage renal disease N18.6 Non-STEMI (non-ST elevated myocardial infarction) I21.4 Chest pain R07.9
--- NOTE | 2024-08-07 15:54 | PC.NURSE ---
Patient received from mobile home laborer at 1147 s/p [facility] with right radial access. Patient had TR band in place with no s/s of bleeding or hematoma formation observed. Patient denied pain to site. Initiated air removal at 1300 removing 2ml of air every 15 to 20min until all air removed at this time. No s/s of bleeding or hematoma formation. Covered site with 2x2 and coban. Pulse to right upper extremity remains palpable while being warm to touch. Patient did c/o mild tenderness to site. Instructed patient regarding site care and restrictions. Patient verbalized complete understanding. Will continue to monitor.
--- NOTE | 2024-08-07 17:00 | PC.NURSE ---
Patient taken by bed to dialysis with TRACI Fan at side.
[2024-08-07] MEDS: HYDROcodone-acetaminophen 7.5-325 mg Tablet 1 TAB PO (20:02)
[2024-08-07] MEDS: atorvastatin 40 mg Tablet 80 MG PO (20:38)
[2024-08-07 21:08] LABS: Glucose Point of Care 162 mg/dL (70-110)
[2024-08-07] MEDS: diphenhydrAMINE 25 mg Capsule PO (23:36)
[2024-08-08] VITALS (9 sets, daily range): BP systolic 125–178; BP diastolic 53–77; PULSE 61–70; RESP 18–20; TEMP 36.2–37.2; O2SAT 90–99
[2024-08-08 04:28] LABS: Basophils # 0.1 10^3/uL (0.0-0.1); Basophils % 0.6 %; Eosinophils # 0.1 10^3/uL (0.0-0.8); Eosinophils % 0.8 %; Hematocrit 26.6 % (37-53); Lymphocytes # 1.7 10^3/uL (0.8-4.8); Lymphocytes % 19.4 %; Mean Corpuscular HGB Conc 30.8 g/dL (30-55); Mean Corpuscular Hemoglobin 27.4 pg (27-33); Mean Platelet Volume 10.8 fL (7.4-10.4); Monocytes # 0.8 10^3/uL (0.2-0.9); Monocytes % 8.8 %; Neutrophils # 6.25 10^3/uL (1.8-7.7); Nucleated Red Blood Cells % 0 %; Platelet Count 243 10^3/cmm (157-399); Red Blood Count 2.99 10^6/uL (3.85-5.65); Red Cell Distribution Width 13.2 % (12.1-15.1); White Blood Count 8.93 10^3/uL (3.29-11.43)
[2024-08-08 04:57] LABS: Alanine Aminotransferase < 5 U/L (0-41); Albumin Level 2.4 g/dL (3.5-5.2); Alkaline Phosphatase 107 U/L (40-130); Aspartate Amino Transferase 8 U/L (0-40); Blood Urea Nitrogen 25 mg/dL (8-23); Calcium 8.7 mg/dL (8.5-10.5); Carbon Dioxide 20 mmol/L (22-29); Chloride 101 mmol/L (98-107); Creatinine Clr Calc Pharmacy 27.9459; Globulin 3.6 g/dL (1.3-4.6); Glomerular Filtration Rate 19.7 mL/min (90-130); Glucose 274 mg/dL (65-115); Magnesium 2.1 mg/dL (1.7-2.3); Osmolality Calculated 292 mOsm/kg (285-295); Sodium 134 mmol/L (136-145); Total Bilirubin 0.2 mg/dL (0.15-1.2)
[2024-08-08 05:01] LABS: Anion Gap 17.5 (5-19); Potassium 4.5 mmol/L (3.5-5.1)
[2024-08-08 06:13] LABS: Glucose Point of Care 267 mg/dL (70-110)
[2024-08-08] MEDS: clopidogrel 75 mg Tablet PO (08:29)
[2024-08-08] MEDS: hyDRALAzine 25 mg Tablet 50 MG PO (08:29)
[2024-08-08] MEDS: FUROsemide 10 mg/mL SDV 10mL 60 MG IVP (08:29)
[2024-08-08] MEDS: insulin lispro 100 unit/1 mL SUBCUT ×4 (08:30→20:42)
[2024-08-08] MEDS: amlodipine 5 mg Tablet PO (08:30)
[2024-08-08] MEDS: metoprolol tartrate 50 mg Tablet 100 MG PO ×2 (08:32→20:41)
--- NOTE | 2024-08-08 09:30 | PC.SOCIAL ---
IMM Update pg 2 of IMM Updated and reviewed w/ patient. Copy provided and copy dated, initialed and placed in chart.
--- NOTE | 2024-08-08 09:44 | P.PN_ITS ---
<Statement entered by Yomaira Sabillon MD - 08/08/24 21:30> Patient was evaluated and cared for in conjunction with an advanced practice practitioner. I personally examined the patient and reviewed the chart and all pertinent data including imaging, telemetry, and laboratory results. I discussed the patient in detail with the advanced practice practitioner. Please see their note for complete H&P testing result and agreed upon plan of care for the patient. Denies any chest pain but appeared to be short of breath GENERAL: Patient is alert, awake and oriented x3. HEART: Regular S1 and S2. No murmur, rub or gallop. LUNGS: Clear to auscultate bilaterally. CENTRAL NERVOUS SYSTEM: Grossly nonfocal. EXTREMITIES: Lower extremities with out edema bilaterally. Assessment and plan Non-ST ovation SC CHF decompensated diastolic Hypertension Chronic kidney disease on dialysis Continue home meds including p.o. 60 mg of Lasix, if patient shortness of breath does not improve give IV 60 mg of Lasix May need to pull out extra fluid during dialysis Increase hydralazine to 75 mg 3 times daily to control blood pressure better Patient underwent left heart cath yesterday noted to have moderate lesion of the mid RCA IFR was 0.94 which is not significant medical management was recommended Patient had patent previously placed proximal LAD stent. Once euvolemic and blood pressure under control from cardiovascular perspective patient can be discharged home Subjective 2 Subjective: . Patient is doing okay this morning. At nighttime he had some difficulty breathing and was placed on oxygen. O2 saturation stable at 95% on 2 L nasal cannula. Heart cath yesterday showed a 70% mid lesion in the RCA that was not significant by IFR. iFR was 0.94. Blood pressure is elevated today in the 170s. He has had a good response to the Lasix as well as had dialysis yesterday. He is -3 3 to 6 L over 24 hours. Creatinine improved at 3.9. H&H stable at 8.2 and 26.6. Patient has chronic anemia. Vitals/I&O/Wt Last Vital Signs Temp 97.1 F L 08/08/24 08:00 Pulse 70 08/08/24 08:00 Resp 20 H 08/08/24 08:00 BP 178/71 08/08/24 08:00 Pulse Ox 95 08/08/24 08:00 O2 Del Method Nasal Cannula 08/08/24 08:00 O2 Flow Rate 2 08/08/24 08:00 08/07/24 08/08/24 08/08/24 22:59 06:59 14:59 Intake Total 1050 / 1325.100 0 / 1325.100 600 / 600 Output Total 3952 / 4652 0 / 4652 Balance -2902 / -3326.900 0 / -3326.900 600 / 600 Weight last 48 hrs Weight 227 lb 1.218 oz Weight 227 lb 1.218 oz Weight 230 lb 4.8 oz Physical Exam 2 Const: OTHER: General: No apparent distress, healthy appearing, well nourished Muskuloskeletal: Full ROM Lymphatic: no lymphedema noted Respiratory: Normal respiratory effort, clear to auscultation bilaterally throughout all lung syed, no use of accessory muscles Cardio: No JVD, regular rate, regular rhythm, S1 S2 normal, no murmurs, peripheral pulses 2+ radial palpated bilaterally GI: Normal to inspection, nondistended Extremities: Full ROM, normal, normal capillary refill, no cyanosis or edema Neuro: Alert and oriented x4, no focal motor deficits Psych: Affect normal, denies suicidal ideation, mental status grossly normal Skin: cath site w/o s/s of hematoma Data 08/08/24 03:48 08/08/24 03:48 A&P Assessment and plan (1) End stage renal disease on dialysis: (2) Anemia: (3) CHF (congestive heart failure): Qualifiers: Heart failure type: combined systolic and diastolic Heart failure chronicity: acute on chronic Qualified Code(s): I50.43 - Acute on chronic combined systolic (congestive) and diastolic (congestive) heart failure Plan Patient is status post heart cath. No significant lesions were present. We will increase his hydralazine to 75 mg 3 times daily from 50. Continue Lasix 60 mg every 24 hours. If patient develops significant shortness of breath may consider an additional dose of IV Lasix.Overall he appears stable this morning. Continue metoprolol 100 twice daily. Continue aspirin Plavix. PDMP PDMP Reviewed: Not Reviewed Attestations 2 Medical Necessity Statement*: Deferred to primary care. Coding Level of Care Code Acute Code for [facility] Diagnoses End stage renal disease on dialysis N18.6; Z99.2 Anemia D64.9 Acute on chronic combined systolic and diastolic congestive heart failure I50.43 Heart failure type: combined systolic and diastolic Heart failure chronicity: acute on chronic
--- NOTE | 2024-08-08 10:00 | P.PN_ITS ---
Subjective 2 Subjective: feels better. less sob. no n/v/f/c/rudolph/d. he cramped at end of HD yesterday Medications: Reviewed: Yes Medication Review Details: Current Medications Acetaminophen (Acetaminophen 325 Mg Tablet) 650 mg PO Q6H PRN PRN Reason: Mild/Mod Pain Or Temp >/= 101 Last Admin: 08/06/24 09:34 Dose: 650 mg Acetaminophen (Acetaminophen 325 Mg Tablet) 650 mg PO Q6H PRN PRN Reason: MILD PAIN Hydrocodone Bitart/Acetaminophen (Hydrocodone-Acetaminophen 7.5-325 Mg Tablet) 1 tab PO Q4H PRN PRN Reason: MODERATE TO SEVERE PAIN Last Admin: 08/07/24 20:02 Dose: 1 tab Al Hydrox/Mg Hydrox/Simethicone (Tehv-Bin-Rrhmjotsg-Talya 30 Ml Udc) 30 ml PO Q15M PRN PRN Reason: INDIGESTION Amlodipine Besylate (Amlodipine 5 Mg Tablet) 5 mg PO DAILY [facility] Last Admin: 08/08/24 08:30 Dose: 5 mg Aspirin (Aspirin 81 Mg Ec Tablet) 81 mg PO DAILY [facility] Last Admin: 08/08/24 09:20 Dose: Not Given Aspirin (Aspirin 81 Mg Ec Tablet) 81 mg PO DAILY [facility] Last Admin: 08/08/24 08:31 Dose: Not Given Atorvastatin Calcium (Atorvastatin 40 Mg Tablet) 80 mg PO BEDTIME [facility] Last Admin: 08/07/24 20:38 Dose: 80 mg Atropine Sulfate (Atropine 1 Mg/Ml Sdv 1 Ml) 0.5 mg IVP PRN PRN PRN Reason: Symptomatic bradycardia Clopidogrel Bisulfate (Clopidogrel 75 Mg Tablet) 75 mg PO DAILY [facility] Last Admin: 08/08/24 08:29 Dose: 75 mg Diphenhydramine HCl (Diphenhydramine 25 Mg Capsule) 25 mg PO Q6H PRN PRN Reason: ITCHING Last Admin: 08/07/24 23:36 Dose: 25 mg Fentanyl (Fentanyl 50 Mcg/Ml Inj 2ml) 50 mcg IVP PRN PRN PRN Reason: Prior to sheath removal Furosemide (Furosemide 10 Mg/Ml Sdv 10ml) 60 mg IVP Q24H [facility] Last Admin: 08/08/24 08:29 Dose: 60 mg Glucagon (Glucagon 1 Mg/Ml Kit 1 Ml) 1 mg IM ONCE PRN; Protocol PRN Reason: Adult Acute Hypoglycemia Nursing Prot. Hydralazine HCl (Hydralazine 25 Mg Tablet) 75 mg PO TID [facility] Dextrose (D5w) 500 mls @ 0 mls/hr IV ONCE PRN; Protocol PRN Reason: Adult Acute Hypoglycemia Prot Dextrose (D10w) 125 mls @ 750 mls/hr IV PRN PRN; Protocol PRN Reason: Adult Acute Hypoglycemia Nursing Protocol Dextrose (D10w) 250 mls @ 1,000 mls/hr IV PRN PRN; Protocol PRN Reason: Adult Acute Hypoglycemia Nursing Protocol Sodium Chloride (Sodium Chloride 0.9%) 1,000 mls @ 0 mls/hr IV .Q0M PRN PRN Reason: hypotension or symptomatic Albumin Human (Albumin) 12.5 gm in 50 mls @ 60 mls/hr IV PRN PRN PRN Reason: Hypotension and/or symptomatic Ferric Sodium Gluconate 125 mg (/ Sodium Chloride) 110 mls @ 110 mls/hr IV Q24H [facility] Stop: 08/14/24 11:59 Last Infusion: 08/07/24 15:16 Dose: Infused Insulin Human Lispro (Insulin Lispro 100 Unit/1 Ml) 0 unit SUBCUT WM&BEDTIME [facility]; Protocol Last Admin: 08/08/24 08:30 Dose: 10 unit Magnesium Hydroxide (Magnesium Hydroxide 30 Ml Udc) 30 ml PO DAILY PRN PRN Reason: CONSTIPATION Last Admin: 08/06/24 10:12 Dose: 30 ml Magnesium Hydroxide (Magnesium Hydroxide 30 Ml Udc) 30 ml PO DAILY PRN PRN Reason: CONSTIPATION Metoprolol Tartrate (Metoprolol Tartrate 50 Mg Tablet) 100 mg PO BID@0900,2100 [facility] Last Admin: 08/08/24 08:32 Dose: 100 mg Naloxone HCl (Naloxone 0.4 Mg/Ml Sdv) 0.1 mg IVP Q2M PRN PRN Reason: RESPIRATORY RATE < 8/MIN Nitroglycerin (Nitroglycerin 0.4 Mg Sublingual Tablet) 0.4 mg SUBLINGUAL Q5M PRN PRN Reason: CHEST PAIN Ondansetron HCl (Ondansetron 2 Mg/Ml Sdv 2 Ml) 4 mg IVP Q8H PRN PRN Reason: vomiting, or N/V if npo Temazepam (Temazepam 15 Mg Capsule) 15 mg PO BEDTIME PRN PRN Reason: INSOMNIA Vitals/I&O/Wt Last Vital Signs Temp 97.1 F L 08/08/24 08:00 Pulse 70 08/08/24 08:00 Resp 20 H 08/08/24 08:00 BP 178/71 08/08/24 08:00 Pulse Ox 95 08/08/24 08:00 O2 Del Method Nasal Cannula 08/08/24 08:00 O2 Flow Rate 2 08/08/24 08:00 08/07/24 08/08/24 08/08/24 22:59 06:59 14:59 Intake Total 1050 / 1325.100 0 / 1325.100 600 / 600 Output Total 3952 / 4652 0 / 4652 Balance -2902 / -3326.900 0 / -3326.900 600 / 600 Weight last 48 hrs Weight 103 kg Weight 103 kg Weight 104.462 kg Physical Exam 2 Narrative: VS noted comfortable in bed, NARD on nc 02 heent- nc/at neck supple lungs dull bases b/l heart reg + s1, s2 abd soft, nt, nd, + bs ext no b/l leg edema neuro- a,a, o x 3 Data 08/08/24 03:48 08/08/24 03:48 A&P Assessment and plan (1) End stage renal disease: 1/ End-stage renal disease: On MWF schedule. he had HD yesterday s/p cardiac cath. -plan repeat ?HD today or tomorrow based on nurse availability. PLEASE DO NOT DISCHARGE HIM UNTIL HE GETS DIALYSIS HERE. -normal phos 2. 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 Hypertension: Blood pressure elevated. monitor w/ HD -add an ARB 4. History of diabetes- per medicine 5. Anemia: give ELROY. dose given 08-07-24 -iron sat 14% ferritin 337- give iv iron 6. pth 76- no vit d analouges patient consents to hemodialysis and to telehealth visit Patient evaluated using audiovisual cart. Plan see above PDMP PDMP Reviewed: Not Reviewed Attestations 2 Medical Necessity Statement*: CAD, ESRD, HTN, hypoxemia Time Spent in Patient Care: 16 - 35 minutes (>than 50% of time sp ent in counselling and/or direct pt care on unit) . Coding Level of Care Code Acute Code for [facility] Diagnoses End stage renal disease N18.6
--- NOTE | 2024-08-08 10:41 | PC.NURSE ---
Dr Esteves did put in dialysis orders for today however may not get done if nurse is not available. He does not want him leaving until he has dialysis. Informed Dr Avila. Discharge pending dialysis
[2024-08-08 12:02] LABS: Glucose Point of Care 277 mg/dL (70-110)
[2024-08-08] MEDS: ferric gluconate 125 MG in sodium chloride 0.9% (100 ml) 100 ML 110 MG IV (12:02)
[2024-08-08] MEDS: diphenhydrAMINE 25 mg Capsule PO (12:03)
[2024-08-08] MEDS: HYDROcodone-acetaminophen 7.5-325 mg Tablet 1 TAB PO ×2 (12:03→20:41)
--- NOTE | 2024-08-08 12:49 | PC.NURSE ---
Patient report have a sore spot in his butt . Look at site. Assessed area. Found open wound to right buttock as documented with large area of bright red induration. Placed optifoam to site. Educated patient to switch sides. Patient verbalized understanding. Informed Dr Avila. Will continue to monitor.
--- NOTE | 2024-08-08 13:43 | P.PN_ITS ---
Subjective 2 Subjective: 64-year-old male with a past medical his tory of end-stage renal disease on dialysis, type 2 diabetes mellitus, vitamin D deficiency, hypertension, dyslipidemia, and coronary artery disease with recent ST-elevation [place] status post successful revascularization of proximal LAD with 2 stents on 06/2024, presented to the hospital on 08/03/2024 with chest pain. Laboratory workup on arrival showed WBC 10, hemoglobin 9, hematocrit 27, platelet count 237, sodium 138, potassium 4.0, chloride 96, bicarbonate 33, BUN 16, and creatinine 1.80. Noted to have elevated troponin levels. Upon admission, cardiology was consulted and the patient was started on nitro and heparin drip. Additionally, he was continued on aspirin, statins, Plavix, and beta-kimani. Nephrology was also consulted for assistance with dialysis. Echocardiogram repeated during hospitalization showed an ejection fraction of 50%. Noted to have slight worsening of his anemia with hemoglobin ranging from 7-9 since June hospitalization. No bleeding episodes during this stay. Iron studies showed iron level 19, TIBC 136, iron saturation 13.9%, ferritin 337. Additional workup included PTH 76.1, calcium 9.2.Taken for cardiac cath on 08/07 no acute intervention was done. Post cath he was take for HD. Discussed with Nephrology plan to again HD today or tomorrow . Subjective 08/08 - No new issues overnight. Denied chest pain today. Was on supplemental oxygen at 2L. Overnight he does become hypoxic at times. No prior history of ELLE. No fever, chills, nausea or vomiting. Vitals/I&O/Wt Last Vital Signs Temp 97.8 F 08/08/24 12:00 Pulse 65 08/08/24 12:00 Resp 20 H 08/08/24 12:00 BP 132/63 08/08/24 12:00 Pulse Ox 94 08/08/24 12:02 O2 Del Method Room Air 08/08/24 12:00 O2 Flow Rate 2 08/08/24 08:00 08/07/24 08/08/24 08/08/24 22:59 06:59 14:59 Intake Total 1050 / 1325.100 0 / 1325.100 950 / 950 Output Total 3952 / 4652 0 / 4652 Balance -2902 / -3326.900 0 / -3326.900 950 / 950 Weight last 48 hrs Weight 103 kg Weight 103 kg Weight 104.462 kg Physical Exam 2 Const: COMMON NORMALS: no acute distress and patient oriented x3 HENMT: COMMON NORMALS: normocephalic HEAD & SCALP: normocephalic Eye: COMMON NORMALS: Equal, round and reactive pupils present PUPIL: Yes Equal, round and reactive pupils present Neck/C-Spine: COMMON NORMALS: no JVD Resp: COMMON NORMALS: normal respiratory effort, No retractions, No use of accessory muscles and clear to auscultation bilaterally AUSCULTATION: clear to auscultation bilaterally Cardio: COMMON NORMALS: no JVD, regular rate, regular rhythm, S1 normal heart sound present and S2 normal heart sound present RATE: regular rate RHYTHM: regular rhythm HEART SOUNDS: S1 normal heart sound present and S2 normal heart sound present GI: COMMON NORMALS: Normal to inspection, nondistended, normoactive bowel sounds present, Soft to palpation and non-tender PALPATION: Yes Soft to palpation Extremity: COMMON NORMALS: no pedal edema NARRATIVE EXTREMITY EXAM: 1+ edema Neuro: COMMON NORMALS: patient oriented x3, CN's II-XII intact bilaterally and moves all extremities Psych: COMMON NORMALS: mental status grossly normal Data 08/08/24 03:48 08/08/24 03:48 A&P Assessment and plan (1) Nonischemic congestive cardiomyopathy: (2) Hyperlipidemia: Qualifiers: Hyperlipidemia type: mixed hyperlipidemia Qualified Code(s): E78.2 - Mixed hyperlipidemia (3) CHF (congestive heart failure): Qualifiers: Heart failure type: combined systolic and diastolic Heart failure chronicity: acute on chronic Qualified Code(s): I50.43 - Acute on chronic combined systolic (congestive) and diastolic (congestive) heart failure (4) Hypertension: Qualifiers: Hypertension type: primary hypertension Qualified Code(s): I10 - Essential (primary) hypertension (5) Diabetes type 2 with atherosclerosis of arteries of extremities: (6) End stage renal disease: (7) Non-STEMI (non-ST elevated myocardial infarction): (8) Chest pain: Plan Chest pain hx of CAD - 64-year-old male with extensive cardiac history presenting with chest pain and elevated troponins, concerning for acute coronary syndrome. Recent echocardiogram showed preserved ejection fraction of 50%. - Recent angiogram on 07/21 discussed above. - See cardio note for cath report from 08/07 - Has been stable post cath Plan: 1. Continue current med management per cardiology End-Stage Renal Disease on Dialysis - Chronic kidney disease requiring dialysis, likely contributing to anemia and electrolyte abnormalities. Nephrology consulted for ongoing management. - Started on Lasix IV, EPo per nephrology Plan: 1. Did have HD yesterday, again taken for HD possible today or tomorrow 2. Nephrology on board. Anemia - Hemoglobin ranging from 7-9, likely multifactorial in the setting of chronic kidney disease and possible acute blood loss. - Hemoglobin 8.2 today - No evidence of bleeding. Plan: 1. IV ferric gluconate and EPO 2. Fecal occult blood test pending 3. Transfuse packed red blood cells if hemoglobin drops below 7 or symptomatic. Type 2 Diabetes Mellitus - Noted in past medical history, likely contributing to microvascular complications. Plan: 1. Monitor blood glucose levels closely. 2. Adjust insulin regimen as needed based on renal function and nutritional status. Hypertension - Currently on hydralazine to 75 mg TID, Also on lasix 60 mg IVP daily, norvasc 5 mg daily, metoprolol 100 mg BID Plan: 1. Continue current antihypertensive regimen. 2. Monitor blood pressure closely, goal <140/90 mmHg. Dyslipidemia - Noted in past medical history, currently managed with high-intensity statin therapy (Lipitor 80 mg daily). Plan: 1. Continue statin therapy for secondary prevention of cardiovascular events. PDMP PDMP Reviewed: Not Reviewed Attestations 2 Medical Necessity Statement*: AMI, ESRD, HTN Time Spent in Patient Care: 16 - 35 minutes (>than 50% of time sp ent in counselling and/or direct pt care on unit) . Coding Level of Care Code Acute Code for [facility] Diagnoses Nonischemic congestive cardiomyopathy I42.0 Mixed hyperlipidemia E78.2 Hyperlipidemia type: mixed hyperlipidemia Acute on chronic combined systolic and diastolic congestive heart failure I50.43 Heart failure type: combined systolic and diastolic Heart failure chronicity: acute on chronic Primary hypertension I10 Hypertension type: primary hypertension Diabetes type 2 with atherosclerosis of arteries of extremities E11.51; I70.209 End stage renal disease N18.6 Non-STEMI (non-ST elevated myocardial infarction) I21.4 Chest pain R07.9
[2024-08-08] MEDS: hyDRALAzine 25 mg Tablet 75 MG PO ×2 (13:47→20:41)
--- NOTE | 2024-08-08 14:35 | PC.NURSE ---
Patient taken to dialysis via bed.
[2024-08-08 17:51] LABS: Glucose Point of Care 149 mg/dL (70-110)
--- NOTE | 2024-08-08 18:03 | PC.NURSE ---
Patient returned to [facility] from dialysis by PROJECT MANAGER at 1735.
[2024-08-08] MEDS: atorvastatin 40 mg Tablet 80 MG PO (20:41)
[2024-08-08 20:43] LABS: Glucose Point of Care 294 mg/dL (70-110)
--- NOTE | 2024-08-08 21:46 | PC.HD ---
11:45 Red margin noted to cath insertion site, picture sent to Dr Smith.
[2024-08-09] VITALS (10 sets, daily range): BP systolic 132–169; BP diastolic 52–74; PULSE 59–67; RESP 13–19; TEMP 36.6–36.9; O2SAT 95–100
[2024-08-09 04:38] LABS: Basophils # 0.1 10^3/uL (0.0-0.1); Basophils % 0.6 %; Eosinophils # 0.1 10^3/uL (0.0-0.8); Eosinophils % 0.8 %; Hematocrit 26.4 % (37-53); Lymphocytes # 2.2 10^3/uL (0.8-4.8); Lymphocytes % 22.9 %; Mean Corpuscular HGB Conc 31.4 g/dL (30-55); Mean Corpuscular Hemoglobin 27.1 pg (27-33); Mean Corpuscular Volume 86.3 fl (82-101); Mean Platelet Volume 10.2 fL (7.4-10.4); Monocytes % 10.5 %; Neutrophils # 6.17 10^3/uL (1.8-7.7); Neutrophils % 64.8 %; Nucleated Red Blood Cells % 0 %; Platelet Count 285 10^3/cmm (157-399); Red Blood Count 3.06 10^6/uL (3.85-5.65); Red Cell Distribution Width 13.3 % (12.1-15.1); White Blood Count 9.53 10^3/uL (3.29-11.43)
[2024-08-09 05:07] LABS: Alanine Aminotransferase < 5 U/L (0-41); Albumin Level 2.6 g/dL (3.5-5.2); Alkaline Phosphatase 101 U/L (40-130); Anion Gap 15.6 (5-19); Aspartate Amino Transferase 7 U/L (0-40); Blood Urea Nitrogen 26 mg/dL (8-23); Calcium 8.8 mg/dL (8.5-10.5); Carbon Dioxide 26 mmol/L (22-29); Chloride 100 mmol/L (98-107); Globulin 3.5 g/dL (1.3-4.6); Glucose 227 mg/dL (65-115); Osmolality Calculated 296 mOsm/kg (285-295); Potassium 4.6 mmol/L (3.5-5.1); Sodium 137 mmol/L (136-145); Total Bilirubin 0.2 mg/dL (0.15-1.2); Total Protein 6.1 g/dL (6.6-8.7)
[2024-08-09 06:26] LABS: Glucose Point of Care 213 mg/dL (70-110)
[2024-08-09] MEDS: hyDRALAzine 25 mg Tablet 75 MG PO (08:38)
[2024-08-09] MEDS: metoprolol tartrate 50 mg Tablet 100 MG PO ×2 (08:38→20:37)
[2024-08-09] MEDS: aspirin 81 mg EC Tablet PO (08:38)
[2024-08-09] MEDS: FUROsemide 10 mg/mL SDV 10mL 60 MG IVP (08:39)
[2024-08-09] MEDS: amlodipine 5 mg Tablet PO (08:39)
[2024-08-09] MEDS: clopidogrel 75 mg Tablet PO (08:39)
[2024-08-09] MEDS: insulin lispro 100 unit/1 mL SUBCUT ×3 (08:41→17:38)
--- NOTE | 2024-08-09 09:04 | PM.PN ---
Subjective Subjective: feels better. states he has a sacral decubitus. no n/v/f/c/rudolph/d/leg pains. uses wv 02 at night Medications: Reviewed: Yes Medication Review Details: Current Medications Acetaminophen (Acetaminophen 325 Mg Tablet) 650 mg PO Q6H PRN PRN Reason: Mild/Mod Pain Or Temp >/= 101 Last Admin: 08/06/24 09:34 Dose: 650 mg Acetaminophen (Acetaminophen 325 Mg Tablet) 650 mg PO Q6H PRN PRN Reason: MILD PAIN Hydrocodone Bitart/Acetaminophen (Hydrocodone-Acetaminophen 7.5-325 Mg Tablet) 1 tab PO Q4H PRN PRN Reason: MODERATE TO SEVERE PAIN Last Admin: 08/08/24 20:41 Dose: 1 tab Al Hydrox/Mg Hydrox/Simethicone (Hqmw-Utf-Fcsichmjb-Talya 30 Ml Udc) 30 ml PO Q15M PRN PRN Reason: INDIGESTION Amlodipine Besylate (Amlodipine 5 Mg Tablet) 5 mg PO DAILY [facility] Last Admin: 08/09/24 08:39 Dose: 5 mg Aspirin (Aspirin 81 Mg Ec Tablet) 81 mg PO DAILY [facility] Last Admin: 08/09/24 08:38 Dose: 81 mg Atorvastatin Calcium (Atorvastatin 40 Mg Tablet) 80 mg PO BEDTIME [facility] Last Admin: 08/08/24 20:41 Dose: 80 mg Atropine Sulfate (Atropine 1 Mg/Ml Sdv 1 Ml) 0.5 mg IVP PRN PRN PRN Reason: Symptomatic bradycardia Clopidogrel Bisulfate (Clopidogrel 75 Mg Tablet) 75 mg PO DAILY [facility] Last Admin: 08/09/24 08:39 Dose: 75 mg Diphenhydramine HCl (Diphenhydramine 25 Mg Capsule) 25 mg PO Q6H PRN PRN Reason: ITCHING Last Admin: 08/08/24 12:03 Dose: 25 mg Fentanyl (Fentanyl 50 Mcg/Ml Inj 2ml) 50 mcg IVP PRN PRN PRN Reason: Prior to sheath removal Furosemide (Furosemide 10 Mg/Ml Sdv 10ml) 60 mg IVP Q24H [facility] Last Admin: 08/09/24 08:39 Dose: 60 mg Glucagon (Glucagon 1 Mg/Ml Kit 1 Ml) 1 mg IM ONCE PRN; Protocol PRN Reason: Adult Acute Hypoglycemia Nursing Prot. Hydralazine HCl (Hydralazine 25 Mg Tablet) 75 mg PO TID [facility] Last Admin: 08/09/24 08:38 Dose: 75 mg Dextrose (D5w) 500 mls @ 0 mls/hr IV ONCE PRN; Protocol PRN Reason: Adult Acute Hypoglycemia Prot Dextrose (D10w) 125 mls @ 750 mls/hr IV PRN PRN; Protocol PRN Reason: Adult Acute Hypoglycemia Nursing Protocol Dextrose (D10w) 250 mls @ 1,000 mls/hr IV PRN PRN; Protocol PRN Reason: Adult Acute Hypoglycemia Nursing Protocol Sodium Chloride (Sodium Chloride 0.9%) 1,000 mls @ 0 mls/hr IV .Q0M PRN PRN Reason: hypotension or symptomatic Albumin Human (Albumin) 12.5 gm in 50 mls @ 60 mls/hr IV PRN PRN PRN Reason: Hypotension and/or symptomatic Ferric Sodium Gluconate 125 mg (/ Sodium Chloride) 110 mls @ 110 mls/hr IV Q24H [facility] Stop: 08/14/24 11:59 Last Infusion: 08/08/24 13:13 Dose: Infused Insulin Human Lispro (Insulin Lispro 100 Unit/1 Ml) 0 unit SUBCUT WM&BEDTIME [facility]; Protocol Last Admin: 08/09/24 08:41 Dose: 8 unit Magnesium Hydroxide (Magnesium Hydroxide 30 Ml Udc) 30 ml PO DAILY PRN PRN Reason: CONSTIPATION Last Admin: 08/06/24 10:12 Dose: 30 ml Magnesium Hydroxide (Magnesium Hydroxide 30 Ml Udc) 30 ml PO DAILY PRN PRN Reason: CONSTIPATION Metoprolol Tartrate (Metoprolol Tartrate 50 Mg Tablet) 100 mg PO BID@0900,2100 [facility] Last Admin: 08/09/24 08:38 Dose: 100 mg Naloxone HCl (Naloxone 0.4 Mg/Ml Sdv) 0.1 mg IVP Q2M PRN PRN Reason: RESPIRATORY RATE < 8/MIN Nitroglycerin (Nitroglycerin 0.4 Mg Sublingual Tablet) 0.4 mg SUBLINGUAL Q5M PRN PRN Reason: CHEST PAIN Ondansetron HCl (Ondansetron 2 Mg/Ml Sdv 2 Ml) 4 mg IVP Q8H PRN PRN Reason: vomiting, or N/V if npo Temazepam (Temazepam 15 Mg Capsule) 15 mg PO BEDTIME PRN PRN Reason: INSOMNIA Vitals/I&O/Wt Last Vital Signs Temp 98.3 F 08/09/24 08:00 Pulse 64 08/09/24 08:00 Resp 18 08/09/24 08:00 BP 169/74 08/09/24 08:00 Pulse Ox 97 08/09/24 08:00 O2 Del Method Nasal Cannula 08/09/24 08:00 O2 Flow Rate 2 08/09/24 08:00 08/08/24 08/09/24 08/09/24 22:59 06:59 14:59 Intake Total 620 / 1570 200 / 1770 Output Total 3003 / 3303 400 / 3703 Balance -2383 / -1733 -200 / -1933 Weight last 48 hrs Weight 100.5 kg Weight 100.5 kg Weight 103 kg Weight 103 kg Physical Exam Narrative: VS noted comfortable in bed, NARD on nc heent- nc/at neck supple lungs clear b/l heart reg + s1, s2 abd soft, nt, nd, + bs ext no b/l leg edema neuro- a,a, o x 3 sacral decub per pt Data 08/09/24 04:11 08/09/24 04:11 A&P Assessment and plan (1) End stage renal disease: 1/ End-stage renal disease: On MWF schedule. he had HD yesterday s/p cardiac cath. -plan repeat HD tomorrow -normal phos 2. 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 Hypertension: Blood pressure elevated. monitor w/ HD -on ARB 4. History of diabetes- per medicine 5. Anemia: give ELROY. dose given 08-07-24, repeat dose tomorrow -iron sat 14% ferritin 337- give iv iron 6. pth 76- no vit d analouges patient consents to hemodialysis and to telehealth visit Patient evaluated using audiovisual cart with the aid of a nurse. Plan see above PDMP PDMP Reviewed: Not Reviewed Attestations Medical Necessity Statement*: per medical team Time Spent in Patient Care: 16 - 35 minutes (>than 50% of time spent in counselling and/or direct pt care on unit). Coding Level of Care Code Acute Code for [facility] Fwd Diagnoses End stage renal disease N18.6
[2024-08-09] MEDS: HYDROcodone-acetaminophen 7.5-325 mg Tablet 1 TAB PO ×2 (09:48→20:37)
--- NOTE | 2024-08-09 10:51 | P.PN_ITS ---
<Statement entered by Yomaira Sabillon MD - 08/09/24 19:22> Patient was evaluated and cared for in conjunction with an advanced practice practitioner. I personally examined the patient and reviewed the chart and all pertinent data including imaging, telemetry, and laboratory results. I discussed the patient in detail with the advanced practice practitioner. Please see their note for complete H&P testing result and agreed upon plan of care for the patient. Subjective 2 Subjective: Patient doing well this morning. Breathing is much improved. He has had -253 3 L over 24 hours. Still has some fine crackles but overall he states breathing is much improved. We have increased him to hydralazine 75 mg 3 times daily. Blood pressure is somewhat labile. He had an abscess on his buttocks drained today. Only requires O2 at night. Vitals/I&O/Wt Last Vital Signs Temp 98.3 F 08/09/24 08:00 Pulse 64 08/09/24 08:00 Resp 18 08/09/24 08:00 BP 169/74 08/09/24 08:00 Pulse Ox 97 08/09/24 08:00 O2 Del Method Nasal Cannula 08/09/24 08:00 O2 Flow Rate 2 08/09/24 08:00 08/08/24 08/09/24 08/09/24 22:59 06:59 14:59 Intake Total 620 / 1570 200 / 1770 120 / 120 Output Total 3003 / 3303 400 / 3703 200 / 200 Balance -2383 / -1733 -200 / -1933 -80 / -80 Weight last 48 hrs Weight 221 lb 9.033 oz Weight 221 lb 9.033 oz Weight 227 lb 1.218 oz Weight 227 lb 1.218 oz Physical Exam 2 Const: OTHER: General: No apparent distress, healthy appearing, well nourished Muskuloskeletal: Full ROM Lymphatic: no lymphedema noted Respiratory: Normal respiratory effort, clear to auscultation bilaterally throughout all lung syed, no use of accessory muscles Cardio: No JVD, regular rate, regular rhythm, S1 S2 normal, no murmurs, peripheral pulses 2+ radial palpated bilaterally GI: Normal to inspection, nondistended Extremities: Full ROM, normal, normal capillary refill, no cyanosis or edema Neuro: Alert and oriented x4, no focal motor deficits Psych: Affect normal, denies suicidal ideation, mental status grossly normal Skin: cath site w/o s/s of hematoma Data 08/09/24 04:11 08/09/24 04:11 A&P Assessment and plan (1) End stage renal disease on dialysis: (2) Anemia: (3) CHF (congestive heart failure): Qualifiers: Heart failure chronicity: acute on chronic Heart failure type: combined systolic and diastolic Qualified Code(s): I50.43 - Acute on chronic combined systolic (congestive) and diastolic (congestive) heart failure Plan Patient looks improved today. He states he can breath much better. He may be going home today. Can transition him to oral lasix 40 mg daily with 20 meq potassium. Weigh daily and take and extra dose of lasix and potassium prn weight gain of 3 pounds in a day or 5 pounds in 1 week. Can f/u in the clinic in 7-10 days. PDMP PDMP Reviewed: Not Reviewed Attestations 2 Medical Necessity Statement*: Deferred to primary care. Coding Level of Care Code Acute Code for [facility] Fwd Diagnoses End stage renal disease on dialysis N18.6; Z99.2 Anemia D64.9 Acute on chronic combined systolic and diastolic congestive heart failure I50.43 Heart failure chronicity: acute on chronic Heart failure type: combined systolic and diastolic
--- NOTE | 2024-08-09 10:56 | P.PN_ITS ---
Subjective 2 Subjective: 64-year-old male with a past medical his tory of end-stage renal disease on dialysis, type 2 diabetes mellitus, vitamin D deficiency, hypertension, dyslipidemia, and coronary artery disease with recent ST-elevation [place] status post successful revascularization of proximal LAD with 2 stents on 06/2024, presented to the hospital on 08/03/2024 with chest pain. Laboratory workup on arrival showed WBC 10, hemoglobin 9, hematocrit 27, platelet count 237, sodium 138, potassium 4.0, chloride 96, bicarbonate 33, BUN 16, and creatinine 1.80. Noted to have elevated troponin levels. Upon admission, cardiology was consulted and the patient was started on nitro and heparin drip. Additionally, he was continued on aspirin, statins, Plavix, and beta-kimani. Nephrology was also consulted for assistance with dialysis. Echocardiogram repeated during hospitalization showed an ejection fraction of 50%. Noted to have slight worsening of his anemia with hemoglobin ranging from 7-9 since June hospitalization. No bleeding episodes during this stay. Iron studies showed iron level 19, TIBC 136, iron saturation 13.9%, ferritin 337. Additional workup included PTH 76.1, calcium 9.2.Taken for cardiac cath on 08/07 no acute intervention was done. Post cath he was take for HD. Discussed with Nephrology plan to again HD today or tomorrow . Subjective 08/08 - No new issues overnight. Denied chest pain today. Was on supplemental oxygen at 2L. Overnight he does become hypoxic at times. No prior history of ELLE. No fever, chills, nausea or vomiting. 08/09 Noted to have a gluteal abscess. No fever or chills. stated overall he was feeling much better. Taken off oxygen. No chest pain. Vitals/I&O/Wt Last Vital Signs Temp 98.3 F 08/09/24 08:00 Pulse 64 08/09/24 08:00 Resp 18 08/09/24 08:00 BP 169/74 08/09/24 08:00 Pulse Ox 97 08/09/24 08:00 O2 Del Method Nasal Cannula 08/09/24 08:00 O2 Flow Rate 2 08/09/24 08:00 08/08/24 08/09/24 08/09/24 22:59 06:59 14:59 Intake Total 620 / 1570 200 / 1770 120 / 120 Output Total 3003 / 3303 400 / 3703 200 / 200 Balance -2383 / -1733 -200 / -1933 -80 / -80 Weight last 48 hrs Weight 100.5 kg Weight 100.5 kg Weight 103 kg Weight 103 kg Physical Exam 2 Const: COMMON NORMALS: no acute distress and patient oriented x3 HENMT: COMMON NORMALS: normocephalic HEAD & SCALP: normocephalic Eye: COMMON NORMALS: Equal, round and reactive pupils present PUPIL: Yes Equal, round and reactive pupils present Neck/C-Spine: COMMON NORMALS: no JVD Resp: COMMON NORMALS: normal respiratory effort, No retractions, No use of accessory muscles and clear to auscultation bilaterally AUSCULTATION: clear to auscultation bilaterally Cardio: COMMON NORMALS: no JVD, regular rate, regular rhythm, S1 normal heart sound present and S2 normal heart sound present RATE: regular rate RHYTHM: regular rhythm HEART SOUNDS: S1 normal heart sound present and S2 normal heart sound present GI: COMMON NORMALS: Normal to inspection, nondistended, normoactive bowel sounds present, Soft to palpation and non-tender PALPATION: Yes Soft to palpation Extremity: COMMON NORMALS: no pedal edema NARRATIVE EXTREMITY EXAM: 1+ edema Neuro: COMMON NORMALS: patient oriented x3, CN's II-XII intact bilaterally and moves all extremities Psych: COMMON NORMALS: mental status grossly normal Skin: NARRATIVE SKIN EXAM: right gluteal abscess with mild surrounding erythema Data 08/09/24 04:11 08/09/24 04:11 A&P Assessment and plan (1) Nonischemic congestive cardiomyopathy: (2) Hyperlipidemia: Qualifiers: Hyperlipidemia type: mixed hyperlipidemia Qualified Code(s): E78.2 - Mixed hyperlipidemia (3) CHF (congestive heart failure): Qualifiers: Heart failure type: combined systolic and diastolic Heart failure chronicity: acute on chronic Qualified Code(s): I50.43 - Acute on chronic combined systolic (congestive) and diastolic (congestive) heart failure (4) Hypertension: Qualifiers: Hypertension type: primary hypertension Qualified Code(s): I10 - Essential (primary) hypertension (5) Diabetes type 2 with atherosclerosis of arteries of extremities: (6) End stage renal disease: (7) Non-STEMI (non-ST elevated myocardial infarction): (8) Chest pain: Plan Right gluteal abscess - Near fold with surrounding erythema noted. General surgery was consulted. Bedside I&D with packing. Per general surgery - initiate bactrim for 7 days ( 1 tab daily renal dosing ), remove packing and dressing tomorrow. Plan: - Bactrim DS 1 tab daily started Chest pain hx of CAD - 64-year-old male with extensive cardiac history presenting with chest pain and elevated troponins, concerning for acute coronary syndrome. Recent echocardiogram showed preserved ejection fraction of 50%. - Recent angiogram on 07/21 discussed above. - See cardio note for cath report from 08/07 - Has been stable post cath Plan: 1. Continue current med management per cardiology End-Stage Renal Disease on Dialysis - Chronic kidney disease requiring dialysis, likely contributing to anemia and electrolyte abnormalities. Nephrology consulted for ongoing management. - Started on Lasix IV, EPo per nephrology Plan: 1. Did have HD yesterday, again taken for HD possible today or tomorrow 2. Nephrology on board. Anemia - Hemoglobin ranging from 7-9, likely multifactorial in the setting of chronic kidney disease and possible acute blood loss. - Hemoglobin 8.23 today - No evidence of bleeding. Plan: 1. IV ferric gluconate and EPO 2. Fecal occult blood test pending 3. Transfuse packed red blood cells if hemoglobin drops below 7 or symptomatic. Type 2 Diabetes Mellitus - Noted in past medical history, likely contributing to microvascular complications. Plan: 1. Monitor blood glucose levels closely. 2. Adjust insulin regimen as needed based on renal function and nutritional status. Hypertension - Currently on hydralazine to 75 mg TID, Also on lasix 60 mg IVP daily, norvasc 5 mg daily, metoprolol 100 mg BID Plan: 1. Continue current antihypertensive regimen. 2. Monitor blood pressure closely, goal <140/90 mmHg. Dyslipidemia - Noted in past medical history, currently managed with high-intensity statin therapy (Lipitor 80 mg daily). Plan: 1. Continue statin therapy for secondary prevention of cardiovascular events. Possible discharge today if patient is able to manage packing, dressing change, possible arrange for home health. IF not will monitor additional night and discharge following packing removal, dressing change and next session of HD on Tuesday PDMP PDMP Reviewed: Not Reviewed Attestations 2 Medical Necessity Statement*: Possible discharge today if patient is able to manage packing, dressing change, possible arrange for home health. IF not will monitor additional night and discharge following packing removal, dressing change and next session of HD on tuesday. Coding Level of Care Code Acute Code for [facility] Fwd Diagnoses Nonischemic congestive cardiomyopathy I42.0 Mixed hyperlipidemia E78.2 Hyperlipidemia type: mixed hyperlipidemia Acute on chronic combined systolic and diastolic congestive heart failure I50.43 Heart failure type: combined systolic and diastolic Heart failure chronicity: acute on chronic Primary hypertension I10 Hypertension type: primary hypertension Diabetes type 2 with atherosclerosis of arteries of extremities E11.51; I70.209 End stage renal disease N18.6 Non-STEMI (non-ST elevated myocardial infarction) I21.4 Chest pain R07.9
[2024-08-09] MEDS: ferric gluconate 125 MG in sodium chloride 0.9% (100 ml) 100 ML 110 MG IV (11:28)
[2024-08-09] MEDS: sulfamethoxazole-trimeth DS 160-800 mg Tablet 1 TAB PO (11:28)
[2024-08-09 11:29] LABS: Glucose Point of Care 331 mg/dL (70-110)
--- NOTE | 2024-08-09 15:35 | PM.ACPR ---
Procedure/Consent Consent: Consent for Procedure: Consent obtained from patient Procedure Narrative: Discussed risk and benefits of incision and drainage of right buttock abscess. Patient agreed to proceed. Using a 15 blade a cruciate incision was made over the abscess. Loculations were broken down using a Q-tip. 20 cc of purulence was drained from the abscess cavity. Abscess cavity was packed using 1 inch Nu Gauze. An adhesive dressing was applied over the incision.
--- NOTE | 2024-08-09 15:36 | P.CONIM_ITS ---
Providers/Reason For Consult 2 Consulting Physician/Specialty*: Dr. Simms general surgery Reason for Consult*: Right buttock abscess Attending Physician: Alexx Avila Primary Care Provider: Ezio Leahy History of Present Illness History of Present Illness Cam Trinh is a 64 year old male multiple comorbidities home hospitalist consulted for a right buttock abscess. Patient has noticed this for a few days. Patient was about to be discharged but hospitalist noticed this abscess. He has some surrounding cellulitis. Medications/Allergies Home Medications ?Medication ?Instructions ?Recorded ?Confirmed ?Last Taken ?Type flash glucose scanning reader #1 ea 09/07/23 08/03/24 Unknown Rx (FreeStyle Igor 14 Day [place]) flash glucose sensor (FreeStyle #1 ea 09/07/23 5 Unknown Rx Igor 14 Day Sensor kit) acetaminophen 500 mg tablet 1,000 mg PO Q6H PRN Pain 0 09/08/23 08/03/24 Unknown History ergocalciferol (vitamin D2) 1,250 50,000 unit PO Q7D # 4 caps 07/11/24 08/03/24 Unknown Rx mcg (50,000 unit) capsule (Vitamin D2) hydralazine 25 mg tablet 25 mg PO TID #90 tabs 08/03/24 08/03/24 Rx aspirin 81 mg tablet,delayed 81 mg PO DAILY 30 days #3 0 tabs 07/19/24 08/03/24 08/03/24 Rx release atorvastatin 80 mg tablet 80 mg PO BEDTIME 30 days #30 tabs 07/19/24 08/03/24 08/02/24 Rx clopidogrel 75 mg tablet 75 mg PO DAILY 30 days #30 t abs 07/19/24 08/03/24 08/03/24 Rx furosemide 40 mg tablet (Lasix) 40 mg PO DAILY 30 days #30 tabs 07/19/24 08/03/24 08/03/24 Rx insulin aspart U-100 100 unit/mL See Rx Instructions . Route 07/19/24 08/03/24 Unknown Rx (3 mL) subcutaneous pen (Novolog .COMPLEX #15 mL FlexPen U-100 Insulin aspart) metoprolol tartrate 50 mg tablet 100 mg (2 x 50 mg) PO 07/19/24 08/03/24 08/03/24 Rx BID@0900,2100 30 days #120 tabs potassium chloride 10 mEq 10 meq PO DAILY 30 days #30 tabs 07/19/24 08/03/24 08/03/24 Rx tablet,extended release (Klor-Con) oseltamivir 45 mg capsule (Tamiflu) 45 mg PO BID #10 c aps 08/02/24 08/03/24 08/03/24 Rx Allergies Allergy/AdvReac Type Severity Reaction Status Date / Time No Known Allergies Allergy Verified 08/03/24 13:53 Current Medications Generic Name Dose Route Start Last Admin Trade Name Freq PRN Reason Stop Dose Admin Acetaminophen 650 mg 08/03/24 21:15 08/06/24 09:34 Acetaminophen 325 Mg Tablet PO 650 mg Q6H PRN Administration Mild/Mod Pain Or Temp >/= 101 Hydrocodone Bitart/Acetaminophen 1 tab 08/07/24 11:30 08/09/24 09:48 Hydrocodone-Acetaminophen 7.5-325 Mg Tablet PO 1 tab Q4H PRN Administration MODERATE TO SEVERE PAIN Amlodipine Besylate 5 mg 08/05/24 18:33 08/09/24 08:39 Amlodipine 5 Mg Tablet PO 5 mg DAILY ESTRELLA Administration Aspirin 81 mg 08/04/24 09:00 08/09/24 08:38 Aspirin 81 Mg Ec Tablet PO 81 mg DAILY ESTRELLA Administration Atorvastatin Calcium 80 mg 08/03/24 21:15 08/08/24 20:41 Atorvastatin 40 Mg Tablet PO 80 mg BEDTIME ESTRELLA Administration Clopidogrel Bisulfate 75 mg 08/04/24 09:00 08/09/24 08:39 Clopidogrel 75 Mg Tablet PO 75 mg DAILY ESTRELLA Administration Diphenhydramine HCl 25 mg 08/07/24 22:12 08/08/24 12:03 Diphenhydramine 25 Mg Capsule PO 25 mg Q6H PRN Administration ITCHING Ferric Sodium Gluconate 125 mg 110 mls @ 110 mls/hr 08/07/24 11:00 08/09/24 14:06 / Sodium Chloride IV 08/14/24 11:59 Infused Q24H [facility] Infusion Insulin Human Lispro 0 unit 08/03/24 21:15 08/09/24 11:29 Insulin Lispro 100 Unit/1 Ml SUBCUT 14 unit WM&BEDTIME ESTRELLA Administration Protocol Losartan Potassium 50 mg 08/09/24 09:15 08/09/24 11:16 Losartan 50 Mg Tablet PO Not Given DAILY [facility] Metoprolol Tartrate 100 mg 08/03/24 21:15 08/09/24 08:38 Metoprolol Tartrate 50 Mg Tablet PO 100 mg BID@0900,2100 ESTRELLA Administration Trimethoprim/Sulfamethoxazole 1 tab 08/09/24 11:00 08/09/24 11:28 Sulfamethoxazole-Trimeth Ds 160-800 Mg Tablet PO 08/16/24 10:59 1 tab DAILY ESTRELLA Administration Protocol PFSH Acute 2 PFSH: Medical History (Updated 08/09/24 @ 15:37 by Ezekiel Simms MD) Chest pain Rib pain on right side Large pleural effusion Hypertension Diabetes Abnormal nuclear stress test Hyperglycemia Hypertensive urgency Angina at rest Diabetic neuropathy, painful Surgical History History of surgical removal of meniscus of knee Family History Other CAD (coronary artery disease) Diabetes Social History Smoking and tobacco/nicotine status: never used tobacco/nicotine Alcohol intake: former Substance/Drug Use: never Vitals/I&O/Wt Last Vital Signs Temp 97.8 F 08/09/24 12:00 Pulse 64 08/09/24 12:00 Resp 18 08/09/24 12:00 BP 132/52 08/09/24 12:00 Pulse Ox 98 08/09/24 12:00 O2 Del Method Nasal Cannula 08/09/24 12:00 O2 Flow Rate 2 08/09/24 12:00 08/09/24 08/09/24 08/09/24 06:59 14:59 22:59 Intake Total 200 / 1770 590 / 590 Output Total 400 / 3703 200 / 200 Balance -200 / -1933 390 / 390 Weight last 48 hrs Weight 221 lb 9.033 oz Weight 221 lb 9.033 oz Weight 227 lb 1.218 oz Weight 227 lb 1.218 oz Physical Exam 2 Narrative: Chest: Unlabored breathing room air. No lymphadenopathy. Heart: Regular rate and rhythm. Abdomen: Soft, nontender, nondistended. No masses or lymphadenopathy. Right buttock: 3 cm abscess with surrounding cellulitis Data 08/09/24 04:11 08/09/24 04:11 A&P Assessment and plan (1) Cellulitis and abscess of buttock: Plan 64-year-old male whom surgery was consulted for right buttock abscess. Discussed risk and benefits of incision and drainage of buttock abscess. Patient agreed to proceed. Abscess drained at bedside. Wound packed. Patient instructed to remove packing and dressing tomorrow. Patient can shower. Recommended 7-day course of Bactrim to address surrounding cellulitis. Patient may be discharged if able to care for wound PDMP PDMP Reviewed: Not Reviewed Coding Level of Care Code Acute Code for [facility] Diagnoses Cellulitis and abscess of buttock L02.31; L03.317
[2024-08-09] MEDS: diphenhydrAMINE 25 mg Capsule PO (16:36)
[2024-08-09 17:33] LABS: Glucose Point of Care 213 mg/dL (70-110)
[2024-08-09 20:15] LABS: Glucose Point of Care 194 mg/dL (70-110)
[2024-08-09] MEDS: atorvastatin 40 mg Tablet 80 MG PO (20:37)
[2024-08-10] VITALS (9 sets, daily range): BP systolic 146–165; BP diastolic 59–74; PULSE 58–66; RESP 14–28; TEMP 36.3–36.7; O2SAT 93–98
[2024-08-10 03:02] LABS: Basophils # 0.1 10^3/uL (0.0-0.1); Basophils % 0.8 %; Eosinophils # 0.1 10^3/uL (0.0-0.8); Eosinophils % 1.1 %; Hematocrit 26.4 % (37-53); Lymphocytes # 2.8 10^3/uL (0.8-4.8); Lymphocytes % 30.5 %; Mean Corpuscular HGB Conc 31.4 g/dL (30-55); Mean Corpuscular Hemoglobin 27.6 pg (27-33); Mean Corpuscular Volume 87.7 fl (82-101); Mean Platelet Volume 9.9 fL (7.4-10.4); Monocytes # 0.8 10^3/uL (0.2-0.9); Neutrophils # 5.25 10^3/uL (1.8-7.7); Nucleated Red Blood Cells % 0 %; Platelet Count 298 10^3/cmm (157-399); Red Blood Count 3.01 10^6/uL (3.85-5.65); Red Cell Distribution Width 13.2 % (12.1-15.1); White Blood Count 9.04 10^3/uL (3.29-11.43)
[2024-08-10 03:30] LABS: Alanine Aminotransferase < 5 U/L (0-41); Albumin Level 2.6 g/dL (3.5-5.2); Alkaline Phosphatase 100 U/L (40-130); Aspartate Amino Transferase 7 U/L (0-40); Blood Urea Nitrogen 36 mg/dL (8-23); Calcium 9.2 mg/dL (8.5-10.5); Carbon Dioxide 25 mmol/L (22-29); Chloride 99 mmol/L (98-107); Creatinine Clr Calc Pharmacy 19.2082; Globulin 3.5 g/dL (1.3-4.6); Glucose 156 mg/dL (65-115); Osmolality Calculated 292 mOsm/kg (285-295); Phosphorus 3.3 mg/dL (2.5-4.5); Sodium 135 mmol/L (136-145); Total Bilirubin 0.2 mg/dL (0.15-1.2); Total Protein 6.1 g/dL (6.6-8.7)
[2024-08-10 06:26] LABS: Glucose Point of Care 163 mg/dL (70-110)
[2024-08-10] MEDS: FUROsemide 40 mg Tablet 60 MG PO (08:16)
[2024-08-10] MEDS: clopidogrel 75 mg Tablet PO (08:16)
[2024-08-10] MEDS: aspirin 81 mg EC Tablet PO (08:16)
[2024-08-10] MEDS: losartan 50 mg Tablet PO (08:17)
[2024-08-10] MEDS: amlodipine 5 mg Tablet PO (08:17)
[2024-08-10] MEDS: metoprolol tartrate 50 mg Tablet 100 MG PO (08:17)
[2024-08-10] MEDS: EPOETIN ALFA-EPBX 10,000 UNIT/ML SDV (ESRD) 10000 UNIT SUBCUT (08:18)
[2024-08-10] MEDS: sulfamethoxazole-trimeth DS 160-800 mg Tablet 1 TAB PO (08:18)
[2024-08-10] MEDS: insulin lispro 100 unit/1 mL SUBCUT (08:28)
[2024-08-10] MEDS: HYDROcodone-acetaminophen 7.5-325 mg Tablet 1 TAB PO (08:46)
--- NOTE | 2024-08-10 10:55 | PC.SOCIAL ---
IMM Update Pg. 2 of IMM updated and reviewed with patient, who verbalized understanding. Copy provided.
[2024-08-10 11:13] LABS: Glucose Point of Care 288 mg/dL (70-110)
--- NOTE | 2024-08-10 11:45 | PC.NURSE ---
Patienttransported to dialysis room
--- NOTE | 2024-08-10 15:50 | P.PN_ITS ---
Subjective 2 Subjective: Patient doing well today no complaints. Vitals/I&O/Wt Last Vital Signs Temp 98 F 08/10/24 15:35 Pulse 65 08/10/24 15:35 Resp 16 08/10/24 15:35 BP 153/66 08/10/24 15:35 Pulse Ox 96 08/10/24 15:35 O2 Del Method Room Air 08/10/24 08:19 O2 Flow Rate 2 08/09/24 16:00 08/10/24 08/10/24 08/10/24 06:59 14:59 22:59 Intake Total 600 / 600 Output Total 350 / 550 200 / 200 Balance -350 / 640 400 / 400 Weight last 48 hrs Weight 221 lb 3.2 oz Weight 221 lb 9.033 oz Weight 221 lb 9.033 oz Physical Exam 2 Const: OTHER: General: No apparent distress, healthy appearing, well nourished Muskuloskeletal: Full ROM Lymphatic: no lymphedema noted Respiratory: Normal respiratory effort, clear to auscultation bilaterally throughout all lung syed, no use of accessory muscles Cardio: No JVD, regular rate, regular rhythm, S1 S2 normal, no murmurs, peripheral pulses 2+ radial palpated bilaterally GI: Normal to inspection, nondistended Extremities: Full ROM, normal, normal capillary refill, no cyanosis or edema Neuro: Alert and oriented x4, no focal motor deficits Psych: Affect normal, denies suicidal ideation, mental status grossly normal Skin: cath site w/o s/s of hematoma Data 08/10/24 02:45 08/10/24 02:45 A&P Assessment and plan (1) End stage renal disease on dialysis: (2) Anemia: (3) CHF (congestive heart failure): Qualifiers: Heart failure type: combined systolic and diastolic Heart failure chronicity: acute on chronic Qualified Code(s): I50.43 - Acute on chronic combined systolic (congestive) and diastolic (congestive) heart failure Plan Patient looks improved today. He states he can breath much better. He may be going home today. Can f/u in the clinic in 7-10 days. Losartan was added for blood pressure. May be adjusted on outpatient basis. PDMP PDMP Reviewed: Not Reviewed Attestations 2 Medical Necessity Statement*: Deferred to primary care. Coding Level of Care Code Acute Code for [facility] Diagnoses End stage renal disease on dialysis N18.6; Z99.2 Anemia D64.9 Acute on chronic combined systolic and diastolic congestive heart failure I50.43 Heart failure type: combined systolic and diastolic Heart failure chronicity: acute on chronic
--- NOTE | 2024-08-15 21:37 | P.DS_ITS ---
Discharge Providers Date of Admission: 08/03/24 17:56 Date of Discharge: August 10, 2024 Attending Provider at Admission: Ovidio North MD Attending Provider at Discharge: Alexx Avila Primary Care Provider: Ezio Leahy Diagnoses at Discharge Discharge Diagnosis (1) End stage renal disease on dialysis: Status: Acute (2) Anemia: Status: Acute (3) CHF (congestive heart failure): Status: Acute Qualifiers: Heart failure chronicity: acute on chronic Heart failure type: combined systolic and diastolic Qualified Code(s): I50.43 - Acute on chronic combined systolic (congestive) and diastolic (congestive) heart failure Reason for Visit Reason for Visit: chest pain Hospital Course Hospital Course 64-year-old male with a past medical history of end-stage renal disease on dialysis, type 2 diabetes mellitus, vitamin D deficiency, hypertension, dyslipidemia, and coronary artery disease with recent ST-elevation PR status post successful revascularization of proximal LAD with 2 stents on 06/2024, pres ented to the hospital on 08/03/2024 with chest pain. Laboratory workup on arrival showed WBC 10, hemoglobin 9, hematocrit 27, platelet count 237, sodium 138, potassium 4.0, chloride 96, bicarbonate 33, BUN 16, and creatinine 1.80. Noted to have elevated troponin levels. Upon admission, cardiology was consulted and the patient was started on nitro and heparin drip. Additionally, he was continued on aspirin, statins, Plavix, and beta-kimani. Nephrology was also consulted for assistance with dialysis. Echocardiogram repeated during hospitalization showed an ejection fraction of 50%. Noted to have slight worsening of his anemia with hemoglobin ranging from 7-9 since June hospitalization. No bleeding episodes during this stay. Iron studies showed iron level 19, TIBC 136, iron saturation 13.9%, ferritin 337. Additional workup included PTH 76.1, calcium 9.2.Taken for cardiac cath on 08/07 no acute intervention was done. Post cath he was take for HD which he tolerated. On 08/09 he was noted to have a right gluteal abscess for which general surgery was consulted. Bedside I&D was done and sent for cultures. Per surgery recommnedation patient was started on bactrim HD dosing for 7 days. Outpatient follow up was arranged with surgery. Home health was arranged. Patient was discharged in stable condition. Physical Exam Const: COMMON NORMALS: no acute distress and patient oriented x3 HENMT: COMMON NORMALS: normocephalic HEAD & SCALP: normocephalic Eye: COMMON NORMALS: Equal, round and reactive pupils present PUPIL: Yes Equal, round and reactive pupils present Neck/C-Spine: COMMON NORMALS: no JVD Resp: COMMON NORMALS: normal respiratory effort, No retractions, No use of accessory muscles and clear to auscultation bilaterally AUSCULTATION: clear to auscultation bilaterally Cardio: COMMON NORMALS: no JVD, regular rate, regular rhythm, S1 normal heart sound present and S2 normal heart sound present RATE: regular rate RHYTHM: regular rhythm HEART SOUNDS: S1 normal heart sound present and S2 normal heart sound present GI: COMMON NORMALS: Normal to inspection, nondistended, normoactive bowel sounds present, Soft to palpation and non-tender PALPATION: Yes Soft to palpation Extremity: COMMON NORMALS: no pedal edema NARRATIVE EXTREMITY EXAM: 1+ edema Neuro: COMMON NORMALS: patient oriented x3, CN's II-XII intact bilaterally and moves all extremities Psych: COMMON NORMALS: mental status grossly normal Skin: NARRATIVE SKIN EXAM: right gluteal abscess with mild surrounding erythema Discharge Data Studies Completed and Pending Completed Studies During Hospitalization Category Date Time Status XR chest 1V portable [id number] Urgent Exams 08/03/24 13:36 Completed CV. 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 Laboratory Results WBC 9.04 10^3/uL (3.29-11.43) 08/10/24 02:45 RBC 3.01 10^6/uL (3.85-5.65) L 08/10/24 02:45 Hgb 8.30 g/dL (11.27-16.99) L 08/10/24 02:45 Hct 26.4 % (37-53) L 08/10/24 02:45 MCV 87.7 fl (82-101) 08/10/24 02:45 MCH 27.6 pg (27-33) 08/10/24 02:45 MCHC 31.4 g/dL (30-55) 08/10/24 02:45 RDW 13.2 % (12.1-15.1) 08/10/24 02:45 Plt Count 298 10^3/cmm (157-399) 08/10/24 02:45 MPV 9.9 fL (7.4-10.4) 08/10/24 02:45 Neut % (Auto) 58.0 % 08/10/24 02:45 Lymph % (Auto) 30.5 % 08/10/24 02:45 [place] % (Auto) 9.0 % 08/10/24 02:45 Eos % (Auto) 1.1 % 08/10/24 02:45 Baso % (Auto) 0.8 % 08/10/24 02:45 Neut # (Auto) 5.25 10^3/uL (1.8-7.7) 08/10/24 02:45 Lymph # (Auto) 2.8 10^3/uL (0.8-4.8) 08/10/24 02:45 [place] # (Auto) 0.8 10^3/uL (0.2-0.9) 08/10/24 02:45 Eos # (Auto) 0.1 10^3/uL (0.0-0.8) 08/10/24 02:45 Baso # (Auto) 0.1 10^3/uL (0.0-0.1) 08/10/24 02:45 Nucleated RBC % (auto) 0 % 08/10/24 02:45 Nucleated RBCs # 0.0 /100WBC 08/10/24 02:45 APTT 43.3 SECONDS (23.9-36.7) H 08/07/24 09:27 Sodium 135 mmol/L (136-145) L 08/10/24 02:45 Potassium 5.0 mmol/L (3.5-5.1) 08/10/24 02:45 Chloride 99 mmol/L (98-107) 08/10/24 02:45 Carbon Dioxide 25 mmol/L (22-29) 08/10/24 02:45 Anion Gap 16.0 (5-19) 08/10/24 02:45 BUN 36 mg/dL (8-23) H 08/10/24 02:45 Creatinine 4.6 mg/dL (0.7-1.2) H 08/10/24 02:45 GFR Calculation 13.0 mL/min (90-130) L 08/10/24 02:45 Glucose 156 mg/dL (65-115) H 08/10/24 02:45 POC Glucose 288 mg/dL (70-110) H 08/10/24 11:10 Calculated Osmolality 292 mOsm/kg (285-295) 08/10/24 02:45 Calcium 9.2 mg/dL (8.5-10.5) 08/10/24 02:45 Phosphorus 3.3 mg/dL (2.5-4.5) 08/10/24 02:45 Magnesium 2.0 mg/dL (1.7-2.3) 08/10/24 02:45 Iron 19 ug/dL (59-158) L 08/06/24 02:02 TIBC 136 mcg/dl 08/06/24 02:02 % Saturation 13.9 % (20-50) L 08/06/24 02:02 Unsat Iron Binding 117 ug/dL (112-347) 08/06/24 02:02 Ferritin 337 ng/mL (30-400) 08/06/24 02:02 Total Bilirubin 0.2 mg/dL (0.15-1.2) 08/10/24 02:45 AST 7 U/L (0-40) 08/10/24 02:45 ALT < 5 U/L (0-41) 08/10/24 02:45 Alkaline Phosphatase 100 U/L (40-130) 08/10/24 02:45 Troponin T 5th Gen ng/L 152 ng/L (0-15) H* 08/05/24 13:58 Troponin T Baseline 164 ng/L (0-15) H* 08/04/24 20:03 Troponin T 120 Minute 159.0 ng/L (0-15) H 08/04/24 22:19 Delta Troponin T -5.0 ABS# (0-10) L 08/04/24 22:19 Troponin T Hi Sens 6Hr 150.9 ng/L (0-15) H 08/05/24 02:18 Troponin T Hi Sens 6Hr Delta -13.1 ng/L (0-12) L 08/05/24 02:18 NT-Pro-B Natriuret Pep 38850 pg/mL (0-125) H 08/04/24 07:54 Total Protein 6.1 g/dL (6.6-8.7) L 08/10/24 02:45 Albumin 2.6 g/dL (3.5-5.2) L 08/10/24 02:45 Globulin 3.5 g/dL (1.3-4.6) 08/10/24 02:45 Procalcitonin 0.13 ng/mL (0-0.5) 08/03/24 13:41 TSH 4.27 uIU/mL (0.27-4.20) H 08/03/24 20:56 PTH Intact 76.1 pg/mL (15-65) H 08/07/24 03:03 Calcium (PTH Intact) 9.2 mg/dL (8.5-10.5) 08/07/24 03:03 Vitals Last Vital Signs Temp 98 F 08/10/24 15:35 Pulse 65 08/10/24 15:35 Resp 16 08/10/24 15:35 BP 153/66 08/10/24 15:35 Pulse Ox 96 08/10/24 15:35 O2 Del Method Room Air 08/10/24 08:19 O2 Flow Rate 2 08/09/24 16:00 Discharge Plan Discharge Patient Disposition: Home Condition: Stable Prescriptions: New losartan 50 mg Tablet 50 mg PO DAILY Qty: 30 0RF amlodipine 5 mg Tablet 5 mg PO DAILY Qty: 30 0RF Continued (DME) FreeStyle Igor 14 Day [place] Misc See Rx Instructions .Route Qty: 1 0RF Rx Instructions: As directed (DME) FreeStyle Igor 14 Day Sensor Kit See Rx Instructions .Route Qty: 1 12RF Rx Instructions: As directed acetaminophen 500 mg Tablet 1,000 mg PO Q6H PRN (Reason: Pain) ergocalciferol (vitamin D2) [Vitamin D2] 1,250 mcg (50,000 unit) Capsule 50,000 unit PO Q7D Qty: 4 0RF insulin aspart U-100 [Novolog FlexPen U-100 Insulin] 100 unit/mL (3 mL) insulin pen See Rx Instructions .ROUTE .COMPLEX Qty: 15 0RF Rx Instructions: Inject, subcuT, 3 times daily, after meals, based on sliding scale provided furosemide [Lasix] 40 mg tablet 40 mg PO DAILY 30 Days Qty: 30 0RF atorvastatin 80 mg tablet 80 mg PO BEDTIME 30 Days Qty: 30 0RF clopidogrel 75 mg tablet 75 mg PO DAILY 30 Days Qty: 30 0RF aspirin 81 mg Tablet,Delayed Release (Dr/Ec) 81 mg PO DAILY 30 Days Qty: 30 0RF metoprolol tartrate 50 mg Tablet 100 mg PO BID@0900,2100 30 Days Qty: 120 0RF Discontinued oseltamivir [Tamiflu] 45 mg capsule 45 mg PO BID Qty: 10 0RF hydralazine 25 mg tablet 25 mg PO TID Qty: 90 0RF potassium chloride [Klor-Con 10] 10 mEq tablet extended release 10 meq PO DAILY 30 Days Qty: 30 0RF Discharge Orders: Discharge Order (Routine); Ordered 08/10/24 Ordered By: Alexx Avila Referrals: Ezekiel Simms MD [Physician] - 7-10 days ( We have notified your physician's clinic of the need for a follow-up appointment to be scheduled. If you have not heard from them within the next 2 business days, please call them directly. ) Yomaira Sabillon MD [Physician] - 09/25/24 9:00 am Sandra Lee FNP [Nurse Practitioner] - 08/23/24 3:30 pm () Ezio Leahy FNP [Primary Care Provider] - 08/15/24 10:00 am Discharge Diet: Usual diet Discharge Activity: Increase activity as tolerated Patient Instructions: Sulfamethoxazole/Trimethoprim (By mouth), Amlodipine (By mouth), Losartan (By mouth), Heart Failure (DC), Chest Pain (DC), Dialysis Nutrition Plan (DC), Acute Coronary Syndrome (DC), Cardiac Rehabilitation (DC), Hemodialysis (DC), Chest Pain Stoplight, Opioid Safety Discharge Attestations Time Spent in Discharge Care*: greater than 30 min Status at Discharge: Cognitive status at discharge: cognitively intact , Behavioral status at discharge: cooperative , Functional status at discharge: independent ambulation , Overall status at discharge: patient is progressing back to baseline Quality Metrics Clinical Quality Measures [ No reported AMI, CVA or VTE this stay] Coding Level of Care Code Acute Code for Chg Fwd Diagnoses End stage renal disease on dialysis N18.6; Z99.2 Anemia D64.9 Acute on chronic combined systolic and diastolic congestive heart failure I50.43 Heart failure chronicity: acute on chronic Heart failure type: combined systolic and diastolic
== END 2024-08-10 16:15 | disposition home or self-care (01) | DRG 280 ==
LOC: ER 15:57 → CSU 08-04 03:00 → ER IP 08-04 12:46 → MEDSURG 08-04 12:46
PROVIDERS: Internal Medicine; Internal Medicine Cardiovascular Disease; Internal Medicine Nephrology; Physician Assistant; Student in an Organized Health Care Education/Training Program; Admitting Provider Family Medicine; Emergency Provider Family Medicine; PCP Nurse Practitioner Family; Visit Provider Hospitalist
PROC: 4A023N7 Measurement of Cardiac Sampling and Pressure, Left Heart, Percutaneous Approach (ICD-10-PCS; principal; 2024-08-07 11:00)
DX: I13.2 Hypertensive heart and chronic kidney disease with heart failure and with stage 5 chronic kidney disease, or end stage renal disease (principal); I50.43 Acute on chronic combined systolic (congestive) and diastolic (congestive) heart failure; I21.4 Non-ST elevation (NSTEMI) myocardial infarction; N18.6 End stage renal disease; L02.31 Cutaneous abscess of buttock; L03.317 Cellulitis of buttock; D62 Acute posthemorrhagic anemia; I42.0 Dilated cardiomyopathy; E78.2 Mixed hyperlipidemia; E11.51 Type 2 diabetes mellitus with diabetic peripheral angiopathy without gangrene; E11.40 Type 2 diabetes mellitus with diabetic neuropathy, unspecified; I25.10 Atherosclerotic heart disease of native coronary artery without angina pectoris; R09.02 Hypoxemia; D63.1 Anemia in chronic kidney disease; E55.9 Vitamin D deficiency, unspecified; E11.22 Type 2 diabetes mellitus with diabetic chronic kidney disease; I70.209 Unspecified atherosclerosis of native arteries of extremities, unspecified extremity; Z99.2 Dependence on renal dialysis; Z95.5 Presence of coronary angioplasty implant and graft; Z20.828 Contact with and (suspected) exposure to other viral communicable diseases; Z79.899 Other long term (current) drug therapy; Z79.82 Long term (current) use of aspirin; Z79.4 Long term (current) use of insulin; Z79.02 Long term (current) use of antithrombotics/antiplatelets
CPT/HCPCS: 36415; 36416; 71045; 80053; 82310; 82728; 82962; 83540; 83550; 83735; 83880; 83970; 84100; 84145; 84443; 84484; 85014; 85018; 85025; 85049; 85347; 85730; 90935; 93005; 93308; 93454; 93571; 94664; 94760; 96365; 96366; 96367; 96372; 96374; 96375; 96376; 99152; 99153; 99291; C1769; C1887; C1894; J1644; J1815; J1940; J2250; J2270; J2470; J2916; J3010; J3490; J7030; Q0163; Q3014; Q5105; Q9967

== ENCOUNTER → 2024-08-23 15:05 | Outpatient (BNVA) | payer MEDICARE, MEDICAID, SELFPAY | PROVIDERS: PCP Nurse Practitioner Family; Visit Provider Nurse Practitioner Family | DX: I25.10 Atherosclerotic heart disease of native coronary artery without angina pectoris (principal); I12.9 Hypertensive chronic kidney disease with stage 1 through stage 4 chronic kidney disease, or unspecified chronic kidney disease; N18.9 Chronic kidney disease, unspecified; Z87.891 Personal history of nicotine dependence; I25.2 Old myocardial infarction | CPT/HCPCS: 99214 ==

== ENCOUNTER → 2024-09-06 09:04 | Outpatient (BNVA) | payer MEDICARE, MEDICAID, SELFPAY | PROVIDERS: PCP Nurse Practitioner Family; Visit Provider Podiatrist Foot & Ankle Surgery | DX: E11.42 Type 2 diabetes mellitus with diabetic polyneuropathy (principal); B35.1 Tinea unguium; L84 Corns and callosities; I73.9 Peripheral vascular disease, unspecified; G62.9 Polyneuropathy, unspecified; Z79.4 Long term (current) use of insulin | CPT/HCPCS: 11056; 11721; 99203 ==

== ENCOUNTER 2024-09-08 18:45 | Emergency (ER) | payer MEDICARE, MEDICAID, SELFPAY ==
[2024-09-08] VITALS (10 sets, daily range): BP systolic 162–198; BP diastolic 90–121; PULSE 73–84; RESP 16–20; TEMP 36.7; O2SAT 92–100; BMI 31.8
--- NOTE | 2024-09-08 19:04 | ECG_ITS ---
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1960 Requested By: Daniel Hatfield Order Number: [id number] Reading MD: HENOK DOLL Measurements Intervals [place] Rate: 81 P: 16 KS: 157 QRS: -44 QRSD: 119 T: 83 QT: 388 QTc: 451 Interpretive Statements SINUS RHYTHM LEFT AXIS DEVIATION [QRS AXIS < -30] SEPTAL MYOCARDIAL INFARCTION , OF INDETERMINATE AGE [40+ ms Q WAVE IN V1/V2] INTERPRETATION BASED ON A DEFAULT AGE OF 40 YEARS Compared to ECG 08/05/2024 13:14:02 No significant changes Electronically Signed On 09-10-2024 18:09:54 CDT by HENOK DOLL [email or web address]
--- NOTE | 2024-09-08 19:06 | XRR_ITS ---
PROCEDURE INFORMATION: Exam: XR Chest Exam date and time: 09/08/2024 7:08 PM Age: 64 years old Clinical indication: Chest pressure; Prior surgery; Surgery date: 6+ months; Surgery type: Dialysis cath; C/O chest pain; Additional info: Cp TECHNIQUE: Imaging protocol: Radiologic exam of the chest. Views: 1 view. COMPARISON: CR XR chest 1V portable [id number] 08/03/2024 2:02 PM FINDINGS: Tubes, catheters and devices: A dialysis catheter is placed via the right internal jugular vein with its tip at the level of the superior cavoatrial junction. Lungs: See Pleural spaces finding. Pleural spaces: There are persistent small pleural effusions, left larger right. There is slightly improved aeration in the right lower hemithorax compared with 08/03/2024. Continued increased peribronchial markings and interstitial opacities are seen in the left lower lobe possibly representing continuing left lower lobe bronchitis and/or pneumonitis. Heart/Mediastinum: Unremarkable. No cardiomegaly. Bones/joints: Unremarkable. XR/XR chest 1V portable [id number] IMPRESSION: 1. Bilateral pleural effusions, left larger than right. There may be a slight improvement in the right pleural effusion. 2. Improving aeration in the lower sydnie thoraces although some residual peribronchial markings and interstitial opacities are seen in the left lung base, findings that could represent persistent left basilar bronchitis/pneumonitis or atelectasis.
--- NOTE | 2024-09-08 19:17 | W.ED.CHESTPA ---
HPI - Chest Pain General: Chief Complaint: Chest Pain Stated Complaint: chest pain Time Seen by Provider: 09/08/24 18:54 History of Present Illness: Patient presents with chest pain and associated symptoms that began today. Reports onset of nausea around 13:00, accompanied by clamminess. Later developed cough with associated shortness of breath and intermittent sharp chest pains that have since resolved, now describing residual chest heaviness. Patient also reports left-sided facial numbness and headache. Denies any precipitating factors, stating symptoms began while at rest. Significant cardiac history includes recent myocardial infarction last month requiring two stent placements. Previous cardiac event presented atypically with extreme fatigue and weakness without chest pain, notably while attempting to move groceries. Patient reports compliance with all medications, including blood thinners, with last dose taken this morning around 07:30-08:00. Home blood pressure reading prior to arrival was 167/76. Patient acknowledges history of hypertension, typically running 'a little high' around 160 systolic. Related Data Home Medications ?Medication ?Instructions ?Recorded ?Confirmed acetaminophen 500 mg tablet 1,000 mg PO Q6H PRN Pain 09/08/23 09/06/24 Previous Rx's ?Medication ?Instructions ?Recorded flash glucose scanning reader #1 ea 09/07/23 (FreeStyle Igor 14 Day [place]) flash glucose sensor (FreeStyle #1 ea 09/07/23 Igor 14 Day Sensor kit) ergocalciferol (vitamin D2) 1,250 50,000 unit PO Q7D #4 caps 07/11/24 mcg (50,000 unit) capsule (Vitamin D2) aspirin 81 mg tablet,delayed 81 mg PO DAILY 30 days #30 tabs 07/19/24 release atorvastatin 80 mg tablet 80 mg PO BEDTIME 30 days #30 tabs 07/19/24 clopidogrel 75 mg tablet 75 mg PO DAILY 30 days #30 tabs 07/19/24 insulin aspart U-100 100 unit/mL See Rx Instructions .Route 07/19/24 (3 mL) subcutaneous pen (Novolog .COMPLEX #15 mL FlexPen U-100 Insulin aspart) metoprolol tartrate 50 mg tablet 100 mg (2 x 50 mg) PO 07/19/24 BID@0900,2100 30 days #120 tabs amlodipine 5 mg tablet 5 mg PO DAILY #30 tabs 08/09/24 losartan 100 mg tablet 100 mg PO DAILY #90 tabs 08/23/24 diabetic shoes with 3 inserts #1 ea 09/06/24 Allergies Allergy/AdvReac Type Severity Reaction Status Date / Time No Known Allergies Allergy Verified 09/06/24 09:48 PFS ED PFSH: Medical History Chest pain Rib pain on right side Large pleural effusion Hypertension Diabetes Abnormal nuclear stress test Hyperglycemia Hypertensive urgency Angina at rest Diabetic neuropathy, painful Surgical History History of surgical removal of meniscus of knee Family History Other CAD (coronary artery disease) Diabetes Social History Smoking and tobacco/nicotine status: former use of tobacco/nicotine Alcohol intake: former Substance/Drug Use: never Physical Exam Const: COMMON NORMALS: no acute distress, patient oriented x3 and alert HENMT: COMMON NORMALS: normocephalic HEAD & SCALP: normocephalic Eye: COMMON NORMALS: Equal, round and reactive pupils present, EOMs intact bilaterally and conjunctivae normal CONJUNCTIVA: Yes conjunctivae normal PUPIL: Yes Equal, round and reactive pupils present Neck/C-Spine: COMMON NORMALS: full ROM, no lymphadenopathy, supple, no meningeal signs, no JVD and Thyroid normal THYROID: Thyroid normal Chest: COMMONS NORMALS: normal inspection of the chest and normal palpation of entire chest wall Resp: COMMON NORMALS: normal respiratory effort, No retractions, No use of accessory muscles, clear to auscultation bilaterally and percussion normal AUSCULTATION: clear to auscultation bilaterally PERCUSSION: percussion normal Cardio: COMMON NORMALS: no JVD GI: COMMON NORMALS: Normal to inspection, nondistended, normoactive bowel sounds present, Soft to palpation, non-tender, No hepatosplenomegaly present, no masses and no bruits PALPATION: Yes Soft to palpation and Yes No hepatosplenomegaly present Extremity: COMMON NORMALS: normal to inspection, full ROM, capillary refill normal, no joint enlargement, no clubbing, cyanosis or edema, no calf tenderness and no pedal edema Neuro: COMMON NORMALS: patient oriented x3 SENSORIUM/ORIENTATION: Yes alert MENINGEAL SIGNS: Yes no meningeal signs Skin: COMMON NORMALS: no rashes or lesions noted, turgor normal and no jaundice GENERAL SKIN EXAM: no rashes or lesions noted and turgor normal Course Vital Signs: Vital signs: Vital Signs Temperature 98.0 F 09/08/24 18:59 Pulse Rate 75 09/08/24 20:00 Respiratory Rate 20 H 09/08/24 19:36 Blood Pressure 162/94 09/08/24 20:00 Pulse Oximetry 97 09/08/24 20:00 Oxygen Delivery Me thod Room Air 09/08/24 20:00 Oxygen Flow Rate 1 09/08/24 18:59 MDM - Chest Pain Medical Decision Making 1. Chest Pain with Recent Cardiac History: - Concerning presentation given recent cardiac stenting - Although unusual to have stent issues with medication compliance, requires thorough evaluation - Plan: Cardiac enzyme testing and additional blood work - Consider acute coronary syndrome protocol 2. Hypertension: - Elevated blood pressure noted - May contribute to current symptoms - Will review and optimize antihypertensive regimen 3. Facial Numbness and Headache: - No red flags. Will treat symptomatically 4. Immediate Plan: - Initiate cardiac workup - Symptom management as needed - Monitor vital signs - Further evaluation pending initial results Differential Diagnosis Likely acute respiratory failure and acute myocardial infarction; Unlikely acute massive pulmonary embolism, cardiac arrest or sudden cardiac Lab Data 09/08/24 19:31 09/08/24 19:31 Laboratory Results WBC 5.44 10^3/uL (3.29-11.43) 09/08/24 19: RBC 4.40 10^6/uL (3.85-5.65) 09/08/24 19:31 Hgb 12.10 g/dL (11.27-16.99) 09/08/24 19:31 Hct 38.3 % (37-53) 09/08/24 19:31 MCV 87.0 fl (82-101) 09/08/24 19:31 MCH 27.5 pg (27-33) 09/08/24 19: MCHC 31.6 g/dL (30-55) 09/08/24 19: RDW 14.1 % (12.1-15.1) 09/08/24 19: Plt Count 279 10^3/cmm (157-399) 09/08/24 19: MPV 9.5 fL (7.4-10.4) 09/08/24 19: Neut % (Auto) 51.1 % 09/08/24 19: Lymph % (Auto) 37.3 % 09/08/24 19: [place] % (Auto) 9.0 % 09/08/24 19: Eos % (Auto) 1.3 % 09/08/24 19: Baso % (Auto) 1.1 % 09/08/24: Neut # (Auto) 2.78 10^3/uL (1.8-7.7) 09/08/24: Lymph # (Auto) 2.0 10^3/uL (0.8-4.8) 09/08/24: [place] # (Auto) 0.5 10^3/uL (0.2-0.9) 09/08/24: Eos # (Auto) 0.1 10^3/uL (0.0-0.8) 09/08/24: Baso # (Auto) 0.1 10^3/uL (0.0-0.1) 09/08/24: Nucleated RBC % (auto) 0 % 09/08/24: Nucleated RBCs # 0.0 /100WBC 09/08/24 19: Sodium 138 mmol/L (136-145) 09/08/24 19: Potassium 3.9 mmol/L (3.5-5.1) 09/08/24 19: Chloride 98 mmol/L (98-107) 09/08/24 19: Carbon Dioxide 27 mmol/L (22-29) 09/08/24 19: Anion Gap 16.9 (5-19) 09/08/24 19: BUN 31 mg/dL (8-23) H 09/08/24 19: Creatinine 3.4 mg/dL (0.7-1.2) H 09/08/24 19: GFR Calculation 18.4 mL/min (90-130) L 09/08/24 19: Glucose 197 mg/dL (65-115) H 09/08/24 19: Calculated Osmolality 298 mOsm/kg (285-295) H 03/15/25 19:31 Calcium 8.9 mg/dL (8.5-10.5) 09/08/24 19:31 Troponin T Baseline 136 ng/L (0-15) H* 09/08/24 19:31 XR interpretation done by ED provider, pending radiology final review ED provider radiology interpretation(s): chronic findings, unchanged from previous EKG Data EKG 1: Interpretation: Sinus rhythm with LAD. Evidence of septal infarct. Other Data Discussed narrowed DDX. He has chronically elevated Troponin. He feels MUCH better and is no apparent distress. Blood pressure has come down. Discussed disposition and some diagnostic uncertainity but this is atypical. He is okay with going home and following up with Cardiology on Tuesday. Discharge Plan Discharge Patient Disposition: Home Clinical Impression: Atypical chest pain, Chest pain Condition: Stable Prescriptions: No Action losartan 100 mg tablet 100 mg PO DAILY Qty: 90 3RF (DME) FreeStyle Igor 14 Day [place] Misc See Rx Instructions .Route Qty: 1 0RF Rx Instructions: As directed (DME) FreeStyle Igor 14 Day Sensor Kit See Rx Instructions .Route Qty: 1 12RF Rx Instructions: As directed (DME) diabetic shoes with 3 inserts See Rx Instructions .Route .MEDSUPPLY Qty: 1 0RF Rx Instructions: As directed to the shoe luiz amlodipine 5 mg Tablet 5 mg PO DAILY Qty: 30 0RF acetaminophen 500 mg Tablet 1,000 mg PO Q6H PRN (Reason: Pain) ergocalciferol (vitamin D2) [Vitamin D2] 1,250 mcg (50,000 unit) Capsule 50,000 unit PO Q7D Qty: 4 0RF insulin aspart U-100 [Novolog FlexPen U-100 Insulin] 100 unit/mL (3 mL) insulin pen See Rx Instructions .ROUTE .COMPLEX Qty: 15 0RF Rx Instructions: Inject, subcuT, 3 times daily, after meals, based on sliding scale provided atorvastatin 80 mg tablet 80 mg PO BEDTIME 30 Days Qty: 30 0RF clopidogrel 75 mg tablet 75 mg PO DAILY 30 Days Qty: 30 0RF aspirin 81 mg Tablet,Delayed Release (Dr/Ec) 81 mg PO DAILY 30 Days Qty: 30 0RF metoprolol tartrate 50 mg Tablet 100 mg PO BID@0900,2100 30 Days Qty: 120 0RF Discharge Orders: Discharge ED (Routine); Ordered 09/08/24 Ordered By: Daniel Hatfield Referrals: Ezio Leahy FNP [Primary Care Provider] - Patient Instructions: Opioid Safety, Pain Management Activity Restrictions/Additional Instructions: 1. Rest and take home medications as directed. 2. Call cardiology on Tuesday for follow up. Print Language: Swazi Coding Level of Care Code ED Photographic Lithographer for Chg Shila Time Spent (min) 40
[2024-09-08] MEDS: morphine 4 mg/mL SDV 1 mL IVP (19:36)
[2024-09-08 19:40] LABS: Basophils # 0.1 10^3/uL (0.0-0.1); Basophils % 1.1 %; Eosinophils # 0.1 10^3/uL (0.0-0.8); Eosinophils % 1.3 %; Hematocrit 38.3 % (37-53); Lymphocytes % 37.3 %; Mean Corpuscular HGB Conc 31.6 g/dL (30-55); Mean Corpuscular Hemoglobin 27.5 pg (27-33); Mean Platelet Volume 9.5 fL (7.4-10.4); Monocytes # 0.5 10^3/uL (0.2-0.9); Neutrophils # 2.78 10^3/uL (1.8-7.7); Neutrophils % 51.1 %; Nucleated Red Blood Cells % 0 %; Platelet Count 279 10^3/cmm (157-399); Red Cell Distribution Width 14.1 % (12.1-15.1); White Blood Count 5.44 10^3/uL (3.29-11.43)
[2024-09-08 19:59] LABS: Anion Gap 16.9 (5-19); Blood Urea Nitrogen 31 mg/dL (8-23); Calcium 8.9 mg/dL (8.5-10.5); Carbon Dioxide 27 mmol/L (22-29); Chloride 98 mmol/L (98-107); Creatinine Clr Calc Pharmacy 25.8982; Glomerular Filtration Rate 18.4 mL/min (90-130); Glucose 197 mg/dL (65-115); Osmolality Calculated 298 mOsm/kg (285-295); Potassium 3.9 mmol/L (3.5-5.1); Sodium 138 mmol/L (136-145)
[2024-09-08 20:02] LABS: Troponin(5th) Baseline 136 ng/L (0-15)
== END 2024-09-08 21:07 | disposition home or self-care (01) ==
PROVIDERS: Emergency Provider Family Medicine; PCP Nurse Practitioner Family
DX: R07.89 Other chest pain (principal); Z79.4 Long term (current) use of insulin; Z79.02 Long term (current) use of antithrombotics/antiplatelets; Z79.82 Long term (current) use of aspirin; Z87.891 Personal history of nicotine dependence; E11.40 Type 2 diabetes mellitus with diabetic neuropathy, unspecified; I10 Essential (primary) hypertension
CPT/HCPCS: 71045; 80048; 84484; 85025; 93005; 96374; 99285; J2270

== ENCOUNTER → 2024-10-02 12:43 | Outpatient (BNVA) | payer MEDICARE, MEDICAID, SELFPAY | PROVIDERS: PCP Nurse Practitioner Family; Visit Provider Internal Medicine Cardiovascular Disease | DX: I13.0 Hypertensive heart and chronic kidney disease with heart failure and stage 1 through stage 4 chronic kidney disease, or unspecified chronic kidney disease (principal); I50.43 Acute on chronic combined systolic (congestive) and diastolic (congestive) heart failure; N18.30 Chronic kidney disease, stage 3 unspecified; I42.0 Dilated cardiomyopathy; M54.31 Sciatica, right side; I25.10 Atherosclerotic heart disease of native coronary artery without angina pectoris; D64.9 Anemia, unspecified | CPT/HCPCS: 99214 ==

== ENCOUNTER → 2024-10-11 10:07 | Outpatient (BNVA) | payer MEDICARE, MEDICAID, SELFPAY | PROVIDERS: PCP Nurse Practitioner Family; Referring Provider Nurse Practitioner Family; Visit Provider Psychiatry & Neurology Neurology | DX: G45.9 Transient cerebral ischemic attack, unspecified (principal) | CPT/HCPCS: G0463 ==

== ENCOUNTER → 2024-10-18 08:27 | Outpatient (BNVA) | payer MEDICARE, MEDICAID, SELFPAY | PROVIDERS: PCP Nurse Practitioner Family; Visit Provider Internal Medicine | DX: E11.51 Type 2 diabetes mellitus with diabetic peripheral angiopathy without gangrene (principal); I70.209 Unspecified atherosclerosis of native arteries of extremities, unspecified extremity; E78.2 Mixed hyperlipidemia; I50.43 Acute on chronic combined systolic (congestive) and diastolic (congestive) heart failure; N18.6 End stage renal disease | CPT/HCPCS: 99204 ==

== ENCOUNTER 2024-12-10 11:43 | Observation (INO) | payer MEDICARE, MEDICAID, SELFPAY ==
[2024-12-10] VITALS (10 sets, daily range): BP systolic 157–185; BP diastolic 72–128; PULSE 61–71; RESP 16–20; TEMP 35.8–36.5; O2SAT 95–100; BMI 32.5
--- NOTE | 2024-12-10 11:46 | ECG_ITS ---
[facility]: [facility]10 Pat Name: Cam Trinh Department: Room: Gender: Male Social Security Specialist: : 1960 Requested By: Corona Collins Order Number: [id number] Gavi MD: Jeffry Pugh M.D. Measurements Intervals [place] Rate: 62 P: 26 IN: 154 QRS: -25 QRSD: 132 T: 81 QT: 439 QTc: 447 Interpretive Statements SINUS RHYTHM INTRAVENTRICULAR CONDUCTION DELAY [130+ ms QRS DURATION] POSSIBLE LEFT VENTRICULAR HYPERTROPHY [VOLTAGE CRITERIA PLUS LAE OR QRS WIDENING] POSSIBLE SEPTAL MYOCARDIAL INFARCTION , OF INDETERMINATE AGE [30 ms Q WAVE IN V1/V2] Compared to ECG 09/08/2024 18:59:09 Intraventricular conduction delay now present Left-axis deviation no longer present Myocardial infarct finding still present Electronically Signed On 12-10-2024 21:56:28 CDT by Jeffry Pugh M.D. [email or web address]
--- NOTE | 2024-12-10 11:52 | XRR_ITS ---
PROCEDURE INFORMATION: Exam: XR Chest Exam date and time: 12/10/2024 12:07 PM Age: 64 years old Clinical indication: Pain; Chest pressure; Prior surgery; Surgery date: 6+ months; Surgery type: Dialysis cath / stents; Additional info: Chest pain TECHNIQUE: Imaging protocol: Radiologic exam of the chest. Views: 1 view. COMPARISON: CR XR chest 1V portable [id number] 09/08/2024 7:08 PM FINDINGS: Tubes, catheters and devices: Infusion port enters from the right and terminates near the atriocaval junction. Lungs: Mild bibasilar atelectasis or infiltrates. Calcified granuloma on the left. Pleural spaces: Small bilateral pleural effusions, [id number]. The mild bibasilar atelectasis or infiltrate has improved on the left and slightly progressed on the right. Heart/Mediastinum: See Vasculature finding. Vasculature: Borderline cardiomegaly and uncoiling of the thoracic aorta. Bones/joints: Unremarkable. XR/XR chest 1V portable [id number] IMPRESSION: Slightly waxing and waning infiltrates.
--- NOTE | 2024-12-10 11:59 | W.ED.CHESTPA ---
HPI - Chest Pain General: Chief Complaint: Chest Pain Stated Complaint: chest pain Time Seen by Provider: 12/10/24 11:48 History of Present Illness: 64-year-old male with a history of coronary artery disease with recent relatively recent stenting presents to the emergency room complaining of hypertension and chest pain. Patient has not dialysis patient pain began around 830 this morning he states it is a 4 out of 10 now he did get aspirin and sublingual nitro prior to arrival. He states after the nitro his chest pain improved from a 5 to a 4. They recently started using his fistula on his left arm and noticed that it been swollen some last week and had used the tunneled dialysis catheter for a couple of his dialysis runs. He did not get any dialysis this morning. He has noticed some increase swelling in his legs over the weekend as well as some increased orthopnea. Note that upon reviewing the chart patient is convinced he had a stent placed in July of this year however when I review the notes from the Charge Master Coordinator procedure there was no stenting done at that time. Reviewed both the procedure note and the formal Charge Master Coordinator report. There is mention in both reports of a RCA lesion but no mention of stenting patient was advised according to this report to have medical management. Associated symptoms: Deny abdominal pain, dyspnea or fever(s) Related Data Home Medications ?Medication ?Instructions ?Recorded ?Confirmed acetaminophen 500 mg tablet 1,000 mg PO Q6H PRN Pain 09/08/23 12/10/24 insulin glargine 100 unit/mL (3 20 unit SUBCUT QAM 10/02/24 12/10/24 mL) subcutaneous pen (Lantus Solostar U-100 Insulin) amlodipine 10 mg tablet 10 mg PO DAILY 12/10/24 12/10/24 hydralazine 50 mg tablet 50 mg PO TID 12/10/24 12/10/24 Previous Rx's ?Medication ?Instructions ?Recorded flash glucose scanning reader #1 ea 09/07/23 ([place] Igor 14 Day [place]) flash glucose sensor (FreeStyle #1 ea 09/07/23 Igor 14 Day Sensor kit) aspirin 81 mg tablet,delayed 81 mg PO DAILY 30 days #30 tabs 07/19/24 release atorvastatin 80 mg tablet 80 mg PO BEDTIME 30 days #30 tabs 07/19/24 clopidogrel 75 mg tablet 75 mg PO DAILY 30 days #30 tabs 07/19/24 insulin aspart U-100 100 unit/mL See Rx Instructions .Route 07/19/24 (3 mL) subcutaneous pen (Novolog .COMPLEX #15 mL FlexPen U-100 Insulin aspart) valsartan 160 mg tablet 160 mg PO DAILY #90 tabs 10/02/24 blood sugar diagnostic ([place] #100 ea 10/09/24 Test Strip) diabetic shoes with 3 inserts #1 ea 10/09/24 lancets 30 gauge (ReliaMed Safety #200 ea 10/09/24 Seal Lancets) metoprolol tartrate 50 mg tablet 50 mg PO BID@0900,2100 #180 tabs 10/09/24 pen needle, diabetic 31 gauge x #100 ea 10/10/2409/09 (1st Tier Unifine Pentips) Allergies Allergy/AdvReac Type Severity Reaction Status Date / Time No Known Allergies Allergy Verified 10/17/24 13:07 Review of Systems Const: Denies: fever(s) or chills Card: Denies: chest pain Resp: Denies: dyspnea GI: Denies: abdominal pain : Denies: dysuria, urinary frequency or urinary urgency Musc: Denies: neck pain or back pain Skin/Breast: Denies: rash PFSH ED PFSH: Medical History (Updated 12/10/24 @ 17:14 by Corona Coe DO) Chest pain Rib pain on right side Large pleural effusion Hypertension Diabetes Abnormal nuclear stress test Hyperglycemia Hypertensive urgency Angina at rest Diabetic neuropathy, painful Surgical History History of surgical removal of meniscus of knee Family History Other CAD (coronary artery disease) Diabetes Social History Smoking and tobacco/nicotine status: never used tobacco/nicotine Alcohol intake: former Substance/Drug Use: never Physical Exam Const: GENERAL APPEARANCE: cooperative ORIENTATION/CONSCIOUSNESS: Yes awake, Yes oriented to person, Yes oriented to place and Yes oriented to time HENMT: COMMON NORMALS: normocephalic, atraumatic and hearing grossly normal bilaterally HEAD & SCALP: normocephalic and atraumatic Resp: COMMON NORMALS: normal respiratory effort, No retractions, No use of accessory muscles and clear to auscultation bilaterally AUSCULTATION: clear to auscultation bilaterally Cardio: COMMON NORMALS: regular rate, regular rhythm and No murmurs present (Cardio) RATE: regular rate RHYTHM: regular rhythm GI: COMMON NORMALS: Soft to palpation and No hepatosplenomegaly present AUSCULTATION: Yes normoactive bowel sounds PALPATION: Yes Soft to palpation, No Tenderness to palpation present (GI), No Guarding due to palpation present (GI) and Yes No hepatosplenomegaly present Extremity: COMMON NORMALS: normal to inspection, capillary refill normal, no clubbing, cyanosis or edema, no calf tenderness and no pedal edema Neuro: SENSORIUM/ORIENTATION: Yes oriented to person, Yes oriented to place and Yes oriented to time Skin: COMMON NORMALS: no rashes or lesions noted GENERAL SKIN EXAM: no rashes or lesions noted Course Vital Signs: Vital signs: Vital Signs Temperature 97.5 F L 12/10/24 16:35 Pulse Rate 69 12/10/24 16:35 Respiratory Rate 18 12/10/24 16:35 Blood Pressure 168/78 12/10/24 16:35 Pulse Oximetry 100 12/10/24 15:21 Oxygen Delivery Me thod Room Air 12/10/24 15:21 MDM - Chest Pain Medical Decision Making Patient has elevated troponin in the large part of this is from his renal disease. It is above his baseline was seen in the past. He does appear to be fluid overloaded as well. He has previously had a stent in his proximal LAD but he has had multiple angiograms since then he tells told me that he had gotten stents just a few months ago according to the cath report he did not. Will admit patient observation dialyze and complete cardiac enzymes may need to see cardiology for further medical management. Discussed with hospitalist orders written Medical Records Date of procedure: 08/07/24 Pre-procedure diagnosis: Non-STEMI Post-procedure diagnosis: same Procedure: Patient had coronary angiogram today, left main is normal, LAD has luminal irregularities with patent previously placed proximal stent. left circumflex has luminal irregularities without significant stenosis, RCA has mid 70% stenosis not significant by IFR 0.94. Medical management advised Radial band as per protocol Discontinue heparin Patient can proceed with dialysis today Continue aspirin statin beta-kimani and clopidogrel Possible discharge tomorrow Lab Data 12/10/24 12:03 12/10/24 12:03 Radiology Impressions Chest X-Ray 12/10/24 11:52 IMPRESSION: Slightly waxing and waning infiltrates. Laboratory Results WBC 5.65 10^3/uL (3.29-11.43) 12/10/24 12:03 RBC 3.59 10^6/uL (3.85-5.65) L 12/10/24 12:03 Hgb 10.10 g/dL (11.27-16.99) L 12/10/24 12:03 Hct 29.9 % (37-53) L 12/10/24 12:03 MCV 83.3 fl (82-101) 12/10/24 12:03 MCH 28.1 pg (27-33) 12/10/24 12:03 MCHC 33.8 g/dL (30-55) 12/10/24 12:03 RDW 14.7 % (12.1-15.1) 12/10/24 12:03 Plt Count 239 10^3/cmm (157-399) 12/10/24 12:03 MPV 9.1 fL (7.4-10.4) 12/10/24 12:03 Neut % (Auto) 64.8 % 12/10/24 12:03 Lymph % (Auto) 24.4 % 12/10/24 12:03 Garza % (Auto) 8.8 % 12/10/24 12:03 Eos % (Auto) 0.9 % 12/10/24 12:03 Baso % (Auto) 0.9 % 12/10/24 12:03 Neut # (Auto) 3.66 10^3/uL (1.8-7.7) 12/10/24 12:03 Lymph # (Auto) 1.4 10^3/uL (0.8-4.8) 12/10/24 12:03 Garza # (Auto) 0.5 10^3/uL (0.2-0.9) 12/10/24 12:03 Eos # (Auto) 0.1 10^3/uL (0.0-0.8) 12/10/24 12:03 Baso # (Auto) 0.1 10^3/uL (0.0-0.1) 12/10/24 12:03 Nucleated RBC % (auto) 0 % 12/10/24 12:03 Nucleated RBCs # 0.0 /100WBC 12/10/24 12:03 Sodium 134 mmol/L (136-145) L 12/10/24 12:03 Potassium 3.8 mmol/L (3.5-5.1) 12/10/24 12:03 Chloride 94 mmol/L (98-107) L 12/10/24 12:03 Carbon Dioxide 27 mmol/L (22-29) 12/10/24 12:03 Anion Gap 16.8 (5-19) 12/10/24 12:03 BUN 45 mg/dL (8-23) H 12/10/24 12:03 Creatinine 4.6 mg/dL (0.7-1.2) H 12/10/24 12:03 GFR Calculation 13.0 mL/min (90-130) L 12/10/24 12:03 Glucose 238 mg/dL (65-115) H 12/10/24 12:03 Calculated Osmolality 297 mOsm/kg (285-295) H 12/10/24 12:03 Calcium 8.7 mg/dL (8.5-10.5) 12/10/24 12:03 Total Bilirubin 0.4 mg/dL (0.15-1.2) 12/10/24 12:03 AST 10 U/L (0-40) 12/10/24 12:03 ALT 7 U/L (0-41) 12/10/24 12:03 Alkaline Phosphatase 96 U/L (40-130) 12/10/24 12:03 Troponin T Baseline 180 ng/L (0-15) H* 12/10/24 12:03 Troponin T 120 Minute 167.8 ng/L (0-15) H 12/10/24 14:25 Delta Troponin T -12.2 ABS# (0-10) L 12/10/24 14:25 Total Protein 6.6 g/dL (6.6-8.7) 12/10/24 12:03 Albumin 3.4 g/dL (3.5-5.2) L 12/10/24 12:03 Globulin 3.2 g/dL (1.3-4.6) 12/10/24 12:03 Hep Bs Antibody < 3.5 (11.5-1000) L 12/10/24 12:03 Hepatitis C Antibody Non-reactive (Nonreactive) 12/10/24 12:03 All radiology interpretation(s) finalized by discharge Discharge Plan Discharge Patient Disposition: Admitted As Inpatient Admit Provider: Mele Allen Clinical Impression: Chest pain, CHF (congestive heart failure), Diabetes type 2 with atherosclerosis of arteries of extremities, End stage renal disease on dialysis, Anemia Condition: Stable Coding Level of Care Code ED [facility] [employer]
[2024-12-10 12:08] LABS: Basophils # 0.1 10^3/uL (0.0-0.1); Basophils % 0.9 %; Eosinophils # 0.1 10^3/uL (0.0-0.8); Eosinophils % 0.9 %; Hematocrit 29.9 % (37-53); Lymphocytes # 1.4 10^3/uL (0.8-4.8); Lymphocytes % 24.4 %; Mean Corpuscular HGB Conc 33.8 g/dL (30-55); Mean Corpuscular Hemoglobin 28.1 pg (27-33); Mean Corpuscular Volume 83.3 fl (82-101); Mean Platelet Volume 9.1 fL (7.4-10.4); Monocytes # 0.5 10^3/uL (0.2-0.9); Monocytes % 8.8 %; Neutrophils # 3.66 10^3/uL (1.8-7.7); Neutrophils % 64.8 %; Nucleated Red Blood Cells % 0 %; Platelet Count 239 10^3/cmm (157-399); Red Blood Count 3.59 10^6/uL (3.85-5.65); Red Cell Distribution Width 14.7 % (12.1-15.1); White Blood Count 5.65 10^3/uL (3.29-11.43)
[2024-12-10 12:26] LABS: Alanine Aminotransferase 7 U/L (0-41); Albumin Level 3.4 g/dL (3.5-5.2); Alkaline Phosphatase 96 U/L (40-130); Anion Gap 16.8 (5-19); Aspartate Amino Transferase 10 U/L (0-40); Blood Urea Nitrogen 45 mg/dL (8-23); Calcium 8.7 mg/dL (8.5-10.5); Carbon Dioxide 27 mmol/L (22-29); Chloride 94 mmol/L (98-107); Creatinine Clr Calc Pharmacy 19.1421; Globulin 3.2 g/dL (1.3-4.6); Glucose 238 mg/dL (65-115); Osmolality Calculated 297 mOsm/kg (285-295); Potassium 3.8 mmol/L (3.5-5.1); Sodium 134 mmol/L (136-145); Total Bilirubin 0.4 mg/dL (0.15-1.2); Total Protein 6.6 g/dL (6.6-8.7)
[2024-12-10 12:30] LABS: Troponin(5th) Baseline 180 ng/L (0-15)
--- NOTE | 2024-12-10 13:52 | ECG_ITS ---
[facility] Date: 2024-12[facility]10 Pat Name: Cam Trinh Department: Room: Gender: Male Remelter: : 1960 Requested By: Corona Collins Order Number: [id number] Gavi MD: Jeffry Pugh M.D. Measurements Intervals Archer Rate: 61 P: 21 OH: 150 QRS: -30 QRSD: 131 T: 40 QT: 455 QTc: 459 Interpretive Statements SINUS RHYTHM INTRAVENTRICULAR CONDUCTION DELAY [130+ ms QRS DURATION] POSSIBLE LEFT VENTRICULAR HYPERTROPHY [VOLTAGE CRITERIA PLUS LAE OR QRS WIDENING] POSSIBLE SEPTAL MYOCARDIAL INFARCTION , OF INDETERMINATE AGE [30 ms Q WAVE IN V1/V2] Compared to ECG 12/10/2024 11:51:55 No significant changes Electronically Signed On 12-10-2024 22:04:30 CDT by Jeffry Pugh M.D. [email or web address]
[2024-12-10 14:58] LABS: Troponin 5 2HR Delta -12.2 ABS# (0-10)
[2024-12-10 14:59] LABS: Troponin 5 2HR 167.8 ng/L (0-15)
--- NOTE | 2024-12-10 15:21 | PM.HP ---
Providers/Chief Complaint Admitting Physician: Mele Allen DO Primary Care Provider: Ezio Leahy Chief Complaint: chest pain History of Present Illness Cam Trinh is a 64 year old male with known CAD recently stented x [address] 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 He describes the pain as a pressure. He says at maximum it was a 6 out of 10 currently is a 3 out of 10. The symptoms waxed and waned. He had some mild nausea and overall just felt off he was more lethargic than usual post hemodialysis and never recovered all weekend. He was slightly short of breath today walking to get his ride to dialysis he does describe pain into his jaw and entire left arm. Initially he thought this was due to the fistula that was newly placed a month ago. It has been successfully used until this past Tuesday when attempts at access were unsuccessful. He states that overall the swelling is better Review of Systems Const: Reports: malaise; Denies: fever(s) or chills Eyes: Denies: change in vision ENMT: Denies: throat pain or nasal congestion Card: Reports: chest pain, edema and swelling of feet/ankles; Denies: palpitations Resp: Reports: dyspnea; Denies: productive cough GI: Denies: abdominal pain, vomiting or change in stool character : Denies: difficulty urinating or dysuria Musc: Denies: back pain or extremity pain Skin/Breast: Denies: rash or lesions Neuro: Denies: headache(s) or dizziness Psych: Denies: anxiety or depression Shashi/Lymph: Denies: easy bruising or easy bleeding Medications/Allergies Home Medications ?Medication ?Instructions ?Recorded ?Confirmed ?Last Taken ?Type flash glucose scanning reader #1 ea 09/07/23 12/10/24 Unknown Rx (FreeStyle Igor 14 Day [place]) flash glucose sensor (FreeStyle #1 ea 09/07/23 12/10/24 Unknown Rx Igor 14 Day Sensor kit) acetaminophen 500 mg tablet 1,000 mg PO Q6H PRN Pain 09/08/23 12/10/24 Unknown History aspirin 81 mg tablet,delayed 81 mg PO DAILY 30 days #30 tabs 07/19/24 12/10/24 12/10/24 Rx release atorvastatin 80 mg tablet 80 mg PO BEDTIME 30 days #30 tabs 07/19/24 12/10/24 12/09/24 Rx clopidogrel 75 mg tablet 75 mg PO DAILY 30 days #30 tabs 07/19/24 12/10/24 12/10/24 Rx insulin aspart U-100 100 unit/mL See Rx Instructions .Route 07/19/24 12/10/24 12/10/24 Rx (3 mL) subcutaneous pen (Novolog .COMPLEX #15 mL FlexPen U-100 Insulin aspart) insulin glargine 100 unit/mL (3 20 unit SUBCUT QAM 10/02/24 12/10/24 12/10/24 History mL) subcutaneous pen (Lantus Solostar U-100 Insulin) valsartan 160 mg tablet 160 mg PO DAILY #90 tabs 10/02/24 12/10/24 12/10/24 Rx blood sugar diagnostic ([place] #100 ea 10/09/24 12/10/24 Unknown Rx Test Strip) diabetic shoes with 3 inserts #1 ea 10/09/24 12/10/24 Unknown Rx lancets 30 gauge (ReliaMed Safety #200 ea 10/09/24 12/10/24 Unknown Rx Seal Lancets) metoprolol tartrate 50 mg tablet 50 mg PO BID@0900,2100 #180 tabs 10/09/24 12/10/24 12/10/24 Rx pen needle, diabetic 31 gauge x #100 ea 10/10/24 12/10/24 Unknown Rx 09/09 (1st Tier Unifine Pentips) amlodipine 10 mg tablet 10 mg PO DAILY 12/10/24 12/10/24 12/10/24 History hydralazine 50 mg tablet 50 mg PO TID 12/10/24 12/10/24 12/10/24 History Allergies Allergy/AdvReac Type Severity Reaction Status Date / Time No Known Allergies Allergy Verified 10/17/24 13:07 PFSH Acute PFSH: Medical History (Updated 12/10/24 @ 15:34 by Mele Allen DO) Chest pain Rib pain on right side Large pleural effusion Hypertension Diabetes Abnormal nuclear stress test Hyperglycemia Hypertensive urgency Angina at rest Diabetic neuropathy, painful Surgical History History of surgical removal of meniscus of knee Family History Other CAD (coronary artery disease) Diabetes Social History Smoking and tobacco/nicotine status: never used tobacco/nicotine Alcohol intake: former Substance/Drug Use: never Vitals/I&O/Wt Last Vital Signs Temp 97.7 F 12/10/24 11:46 Pulse 61 12/10/24 14:39 Resp 16 12/10/24 14:03 BP 177/76 12/10/24 14:39 Pulse Ox 100 12/10/24 14:39 O2 Del Method Room Air 12/10/24 14:03 Weight last 48 hrs Weight 99.79 kg Weight 99.79 kg Physical Exam Narrative: Patient is alert and oriented no acute distress pannus and abdomen Neuro alert and oriented to person place time and situation he is nonfocal to exam HEENT head is normal cephalic atraumatic pupils equal and reactive to light and accommodation extraocular muscles are intact there is no scleral icterus. Mucous membranes are moist and pink without lesions or exudate Neck is supple do not JVD carotid bruits or lymphadenopathy Heart is regular normal S1-S2 without loud murmur Lungs diminished breath sounds but clear throughout no wheezes rales or rhonchi Abdomen obese soft nontender nondistended positive bowel sounds no hepatosplenomegaly Extremities +1 to +2 pitting edema left greater than right to the knees there is dependent erythema. Left arm with fistula. There is bruising and edema throughout the whole arm and is tender to touch Back no CVA tenderness no obvious kyphosis or scoliosis Psych mood and affect are appropriate for situation Skin ruborous in the bilateral lower extremities. And as documented on the left arm.. Data 12/10/24 12:03 12/10/24 12:03 CXR: My impression: Bilateral pleural effusions left greater than right. Questionable infiltrate in the right lower lung field. Comparison to prior chest x-rays is fairly similar. Perhaps there is fluid in the fissure on the right I can see that on the chest x-ray from 08/03/2024 Radiologist's impression: Lungs: Mild bibasilar atelectasis or infiltrates. Calcified granuloma on the left. EKG 2: My Interpretation: Intraventricular conduction delay. No EKG changes Improved R wave progression compared to 09/08/2024 although no IVCD noted at that time EKG computer-generated impression: SINUS RHYTHM INTRAVENTRICULAR CONDUCTION DELAY [130+ ms QRS DURATION] POSSIBLE LEFT VENTRICULAR HYPERTROPHY [VOLTAGE CRITERIA PLUS LAE OR QRS WIDENING] POSSIBLE SEPTAL MYOCARDIAL INFARCTION , OF INDETERMINATE AGE [30 ms Q WAVE IN V1/V2] A&P Assessment and plan (1) CAD (coronary artery disease): Patient with known CAD stents placed in June 2024. Repeat heart cath in July was negative. Consult placed to cardiology to determine need for further workup in light of negative troponin delta Although patient is still symptomatic. (2) Chest pain: As above (3) End stage renal disease on dialysis: Consult placed to nephrology to attempt hemodialysis today patient usually gets hemodialysis Fridays (4) Nonischemic congestive cardiomyopathy: (5) Diabetes type 2 with atherosclerosis of arteries of extremities: Resume home insulin doses and corrective scale insulin (6) CHF (congestive heart failure): Hemodialysis for fluid removal Plan Place patient in observation. Cardiology consult nephrology consult resume home medications defer to cardio cardiology for management and workup PDMP PDMP Reviewed: Not Reviewed Attestations Medical Necessity Statement*: Patient is placed in observation. Unclear that patient will require 2 midnight stay. May discharge home tomorrow after dialysis and cardiology consult Coding Level of Care Code Acute Code for [facility] Diagnoses CAD (coronary artery disease) I25.10 Chest pain, unspecified type R07.9 Chest pain type: unspecified End stage renal disease on dialysis N18.6; Z99.2 Nonischemic congestive cardiomyopathy I42.0 Diabetes type 2 with atherosclerosis of arteries of extremities E11.51; I70.209 Acute on chronic combined systolic and diastolic congestive heart failure I50.43 Heart failure type: combined systolic and diastolic Heart failure chronicity: acute on chronic
--- NOTE | 2024-12-10 16:16 | USCV_ITS ---
Cam Trinh Age: 64 Gender: M : 1960 Exam Date: 12/10/2024 20:48 Ordering Phys: Ava Watts NP Technologist: SHARA Exam Location: [facility] [place] Indication: chest pain, NSTEMI, hx CAD s/p stenting Jamuary 2024, end-stage renal disease on dialysis. BP: 185 / 85 HR: 73 Rhythm: Sinus Technical Quality: Adequate MEASUREMENTS (Male / Female) Normal Values 2D ECHO LV Diastolic Diameter PLAX 4.6 cm 4.2 - 5.9 / 3.9 - 5.3 cm IVS Diastolic Thickness 1.3 cm 0.6 - 1.0 / 0.6 - 0.9 cm IVS Systolic Thickness 1.4 cm LVPW Diastolic Thickness 1.1 cm 0.6 - 1.0 / 0.6 - 0.9 cm LVPW Systolic Thickness 1.7 cm LVOT Diameter 1.9 cm LV Ejection Fraction 2D Teich 50.4 % LV Ejection Fraction MOD 4C 40.2 % LV Ejection Fraction MOD 2C 79.7 % LV Ejection Fraction 2C AL 80.1 % LA Diameter 3.6 cm Aorta at Sinotubular Diameter 2.6 cm IVC Diameter 1.9 cm M-MODE LA Ao Ratio MM 1.2 AV Cusp Separation MM 2.1 cm DOPPLER AV Peak Velocity 175.0 cm/s LVOT Peak Velocity 121.0 cm/s AV Area Cont Eq vti 2.3 cm squared AV Area Cont Eq pk 1.9 cm squared MV Peak Velocity 131.0 cm/s MV Area PHT 3.4 cm squared Mitral E to A Ratio 0.8 TR Peak Velocity 270.0 cm/s TR Peak Gradient 29.2 mmHg TV Peak E Velocity 69.0 cm/s PV Peak Velocity 105.0 cm/s FINDINGS Left Ventricle Left ventricle is normal in size. LV systolic function is normal with EF of 55-60%. No regional wall motion abnormalities seen. Grade 1 diastolic dysfunction Right Ventricle Normal in size and function Right Atrium Normal in size Left Atrium Normal in size Mitral Valve Mild mitral annular calcification. Mild mitral regurgitation Aortic Valve Structurally normal aortic valve. No significant stenosis or regurgitation Tricuspid Valve Mild tricuspid regurgitation. Pulmonary artery systolic pressure is normal. Pulmonic Valve Not well-visualized. Pericardium Normal Aorta Normal in size IVC Appears to be normal CONCLUSIONS LV systolic function is normal with EF of 55-60% Grade 1 diastolic dysfunction Mild mitral regurgitation Mild tricuspid regurgitation Washington Tilley MD (Electronically Signed) Final Date: 11 December 2024 10:42 S
--- NOTE | 2024-12-10 16:16 | PM.CONSULT ---
Providers/Reason For Consult Consulting Physician/Specialty*: Dr. Kearney Reason for Consult*: Chest pain, elevated troponins Requesting Physician: Dr. Allen Attending Physician: Mele Allen DO Primary Care Provider: Ezio Leahy History of Present Illness History of Present Illness Cam Trinh is a 64 year old male hx of CAD with recent stent to the LAD for STEMI in June, CKD requiring dialysis 3 days a week, hypertension, who came into the ER today with complaint of high blood pressure and chest pressure. He tells me that Tuesday he had dialysis and they stuck his left fistula and could not get access and switched to his tunneled dialysis catheter. He states since then his arm had been in pain. He is not sure if this is from that incident or related to his chest pressure. He states that Tuesday morning he developed some chest pressure across his chest. He states that it never let up. He reported it was mild 5 out of 10. He states that he slept most of the weekend and did not do a whole lot. He states when he showed up for dialylsis Tuesday, he told them about the chest pressure, and they sent him to the ED. the stent in the LAD was done in June in which he was taken back immediately due to when he got to the floor he developed chest pain. The second heart cath was clean and showed patent LAD stents. He also went back for another heart cath in July of this year for elevated cardiac markers and chest pain during dialysis. During that angiogram, his left main had no disease, circumflex had no disease, mid LAD had luminal irregularities with 20% stenosis, mid RCA had 40% stenosis and IFR showed this was nonsignificant. Medical management was recommended. EKG done showed no evidence of acute ischemia. No ST elevation or acute T wave abnormalities were seen. Troponin is elevated at baseline but was seen at 1 80?167.8 awaiting 6-hour troponin. Blood pressure significantly elevated at 185/85. He states he still has like chest pressure across his chest but otherwise he said that it is the same constant pressure he has had since Tuesday and is mild in nature. Previous limited echo in July showed mild decreased ejection fraction of 50% with global left ventricular hypokinesis. On exam he appears well compensated. He does have 1+ edema to the bilateral lower extremities. Lungs are clear. O2 saturation 100% on room air. Creatinine is 4.6. Review of Systems Narrative: Consitutional: denies fever, chills, body aches Eyes: Denies changes in vision Card: Reports constant mild chest pressure across the chest, denies palpitations, irregular heart rhythm, syncope, shortness of breath, orthopnea, leg pain with exertion Resp: Denies shortness of breath Skin: Denies rash, lesions, or wounds, denies changes to skin color Neuro: Denies nubmness in extremities, h/a, s/s of stroke Medications/Allergies Home Medications ?Medication ?Instructions ?Recorded ?Confirmed ?Last Taken ?Type flash glucose scanning reader #1 ea 09/07/23 12/10/24 Unknown Rx (FreeStyle Igor 14 Day [place]) flash glucose sensor (FreeStyle #1 ea 09/07/23 12/10/24 Unknown Rx Igor 14 Day Sensor kit) acetaminophen 500 mg tablet 1,000 mg PO Q6H PRN Pain 09/08/23 12/10/24 Unknown History aspirin 81 mg tablet,delayed 81 mg PO DAILY 30 days #30 tabs 07/19/24 12/10/24 12/10/24 Rx release atorvastatin 80 mg tablet 80 mg PO BEDTIME 30 days #30 tabs 07/19/24 12/10/24 12/09/24 Rx clopidogrel 75 mg tablet 75 mg PO DAILY 30 days #30 tabs 07/19/24 12/10/24 12/10/24 Rx insulin aspart U-100 100 unit/mL See Rx Instructions .Route 07/19/24 12/10/24 12/10/24 Rx (3 mL) subcutaneous pen (Novolog .COMPLEX #15 mL FlexPen U-100 Insulin aspart) insulin glargine 100 unit/mL (3 20 unit SUBCUT QA 10/02/24 12/10/24 12/10/24 History mL) subcutaneous pen (Lantus Solostar U-100 Insulin) valsartan 160 mg tablet 160 mg PO DAILY #90 tabs 10/02/24 12/10/24 12/10/24 Rx blood sugar diagnostic ([place] #100 ea 10/09/24 12/10/24 Unknown Rx Test Strip) diabetic shoes with 3 inserts #1 ea 10/09/24 12/10/24 Unknown Rx lancets 30 gauge (ReliaMed Safety #200 ea 10/09/24 12/10/24 Unknown Rx Seal Lancets) metoprolol tartrate 50 mg tablet 50 mg PO BID@0900,2100 #180 tabs 10/09/24 12/10/24 12/10/24 Rx pen needle, diabetic 31 gauge x #100 ea 10/10/24 12/10/24 Unknown Rx 09/09 (1st Tier Unifine Pentips) amlodipine 10 mg tablet 10 mg PO DAILY 12/10/24 12/10/24 12/10/24 History hydralazine 50 mg tablet 50 mg PO TID 12/10/24 12/10/24 12/10/24 History Allergies Allergy/AdvReac Type Severity Reaction Status Date / Time No Known Allergies Allergy Verified 10/17/24 13:07 PFSH Acute PFSH: Medical History (Updated 12/10/24 @ 16:29 by Ava Watts NP) Chest pain Rib pain on right side Large pleural effusion Hypertension Diabetes Abnormal nuclear stress test Hyperglycemia Hypertensive urgency Angina at rest Diabetic neuropathy, painful Surgical History History of surgical removal of meniscus of knee Family History Other CAD (coronary artery disease) Diabetes Social History Smoking and tobacco/nicotine status: never used tobacco/nicotine Alcohol intake: former Substance/Drug Use: never Vitals/I&O/Wt Last Vital Signs Temp 97.1 F L 12/10/24 14:58 Pulse 68 12/10/24 15:31 Resp 18 12/10/24 14:58 BP 185/85 12/10/24 14:58 Pulse Ox 100 12/10/24 15:21 O2 Del Method Room Air 12/10/24 15:21 Weight last 48 hrs Weight 220 lb Weight 220 lb Physical Exam Narrative: General: No apparent distress, healthy appearing, well nourished HENMT: normoceophalic Muskuloskeletal: Full ROM Respiratory: Normal respiratory effort, clear to auscultation bilaterally throughout all lung syed, no use of accessory muscles Cardio: No JVD, regular rate, regular rhythm, S1 S2 normal, no murmurs, peripheral pulses 2+ radial palpated bilaterally, 1+ edema bilateral lower extremities Extremities: Full ROM, normal, normal capillary refill, no cyanosis or edema Neuro: Alert and oriented x4, no focal motor deficits Psych: Affect normal, denies suicidal ideation, mental status grossly normal Skin: No rashes or lesions noted, no wounds Data 12/10/24 12:03 12/10/24 12:03 A&P Assessment and plan (1) Chest pain: (2) Hypertension: (3) CHF (congestive heart failure): (4) Hyperlipidemia: (5) CAD (coronary artery disease): (6) End stage renal disease on dialysis: Plan At this time, patient has similar symptoms as previously required angiogram in which he developed chest pressure with dialysis. Most recent stent was within one year, and subsequent cath in July showed patent coronary arteries. Troponins are elevated at baseline and no acute EKG changes are seen. Recommend continuing aspirin and plavix. Patient's blood pressure is uncontrolled in the 180s systolic. Will increase hydralazine to 100 mg TID. At this time, would recommend proceeding with stress test to evaluate for possible underlying ischemia causing patient's symptoms as well as ordering echo to evaluate LV function and for any wall motion abnormalities. Further recommendations after this. Thank you, Dr. Allen, for allowing us to care for this very pleasant 64 year old gentleman. PDMP PDMP Reviewed: Not Reviewed Coding Level of Care Code Acute Code for [facility] Fwd Diagnoses Chest pain, unspecified type R07.9 Chest pain type: unspecified Primary hypertension I10 Hypertension type: primary hypertension Acute on chronic combined systolic and diastolic congestive heart failure I50.43 Heart failure type: combined systolic and diastolic Heart failure chronicity: acute on chronic Mixed hyperlipidemia E78.2 Hyperlipidemia type: mixed hyperlipidemia Coronary artery disease of [place] artery of [place] heart with stable angina pectoris I25.118 Coronary Disease-Associated Artery/Lesion type: [place] artery [place] vs. transplanted heart: [place] heart Associated angina: with stable angina End stage renal disease on dialysis N18.6; Z99.2
[2024-12-10 16:26] LABS: Hepatitis C Virus Antibody Non-Reactive (Nonreactive)
[2024-12-10 16:28] LABS: Hepatitis B Surface AB < 3.5 (11.5-1000)
[2024-12-10 17:23] LABS: Hepatitis B Surface Antigen Non-Reactive (Nonreactive)
--- NOTE | 2024-12-10 17:40 | PM.CONSULT ---
Providers/Reason For Consult Consulting Physician/Specialty*: [facility]a/Nephrology Reason for Consult*: ESRD Attending Physician: Mele Allen DO Primary Care Provider: Ezio Leahy History of Present Illness History of Present Illness Cam Trinh is a 64 year old male With past medical history of coronary artery disease, end-stage renal disease on dialysis for Tuesday, diabetes presented to the emergency department due to chest pain. He went to dialysis center but because he complained of chest pain patient was referred to the ER. He is currently chest pain-free lab data significant for hemoglobin 10.10, troponin was elevated. Chest x-ray showed bilateral pleural effusions left greater than right. Right lower lobe questionable infiltrate. Review of Systems Narrative: negative Medications/Allergies Home Medications ?Medication ?Instructions ?Recorded ?Confirmed ?Last Taken ?Type flash glucose scanning reader #1 ea 09/07/23 12/10/24 Unknown Rx (FreeStyle Igor 14 Day [place]) flash glucose sensor (FreeStyle #1 ea 09/07/23 12/10/24 Unknown Rx Igor 14 Day Sensor kit) acetaminophen 500 mg tablet 1,000 mg PO Q6H PRN Pain 09/08/23 12/10/24 Unknown History aspirin 81 mg tablet,delayed 81 mg PO DAILY 30 days #30 tabs 07/19/24 12/10/24 12/10/24 Rx release atorvastatin 80 mg tablet 80 mg PO BEDTIME 30 days #30 tabs 07/19/24 12/10/24 12/09/24 Rx clopidogrel 75 mg tablet 75 mg PO DAILY 30 days #30 tabs 07/19/24 12/10/24 12/10/24 Rx insulin aspart U-100 100 unit/mL See Rx Instructions .Route 07/19/24 12/10/24 12/10/24 Rx (3 mL) subcutaneous pen (Novolog .COMPLEX #15 mL FlexPen U-100 Insulin aspart) insulin glargine 100 unit/mL (3 20 unit SUBCUT QA 10/02/24 12/10/24 12/10/24 History mL) subcutaneous pen (Lantus Solostar U-100 Insulin) valsartan 160 mg tablet 160 mg PO DAILY #90 tabs 10/02/24 12/10/24 12/10/24 Rx blood sugar diagnostic ([place] #100 ea 10/09/24 12/10/24 Unknown Rx Test Strip) diabetic shoes with 3 inserts #1 ea 10/09/24 12/10/24 Unknown Rx lancets 30 gauge (ReliaMed Safety #200 ea 10/09/24 12/10/24 Unknown Rx Seal Lancets) metoprolol tartrate 50 mg tablet 50 mg PO BID@0900,2100 #180 tabs 10/09/24 12/10/24 12/10/24 Rx pen needle, diabetic 31 gauge x #100 ea 10/10/24 12/10/24 Unknown Rx 09/09 (1st Tier Unifine Pentips) amlodipine 10 mg tablet 10 mg PO DAILY 12/10/24 12/10/24 12/10/24 History hydralazine 50 mg tablet 50 mg PO TID 12/10/24 12/10/24 12/10/24 History Allergies Allergy/AdvReac Type Severity Reaction Status Date / Time No Known Allergies Allergy Verified 10/17/24 13:07 PFSH Acute PFSH: Medical History (Updated 12/10/24 @ 17:14 by Corona Coe DO) Chest pain Rib pain on right side Large pleural effusion Hypertension Diabetes Abnormal nuclear stress test Hyperglycemia Hypertensive urgency Angina at rest Diabetic neuropathy, painful Surgical History History of surgical removal of meniscus of knee Family History Other CAD (coronary artery disease) Diabetes Social History Smoking and tobacco/nicotine status: never used tobacco/nicotine Alcohol intake: former Substance/Drug Use: never Vitals/I&O/Wt Last Vital Signs Temp 97.5 F L 12/10/24 16:35 Pulse 69 12/10/24 16:35 Resp 18 12/10/24 16:35 BP 168/78 12/10/24 16:35 Pulse Ox 100 12/10/24 15:21 O2 Del Method Room Air 12/10/24 15:21 Weight last 48 hrs Weight 99.79 kg Weight 99.79 kg Physical Exam Narrative: awake , alert , no distress PEERLA s1s2 RRR per report Lungs clear per report Abd - oft , non tender Ext - no edema Data 12/10/24 12:03 12/10/24 12:03 A&P Assessment and plan (1) End stage renal disease: Plan 1. End-stage renal disease: On MWF schedule, HD today , ultrafiltration as tolerated 2. chest pain : Management per cardiology 3. Hypertension: Blood pressure controlled 4. History of diabetes 5. Anemia: Will order ELROY with HD for a goal hemoglobin between 10-11. Patient evaluated using audiovisual cart. Time spent 40 minutes PDMP PDMP Reviewed: Not Reviewed Consult Attestations Medical Necessity Statement: per medicine Coding Level of Care Code Acute Code for [facility] Fwd Diagnoses End stage renal disease N18.6
--- NOTE | 2024-12-10 17:52 | ECG_ITS ---
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 Measurements Intervals [place] Rate: 73 P: 29 DE: 146 QRS: -23 QRSD: 131 T: 74 QT: 419 QTc: 464 Interpretive Statements SINUS RHYTHM WITH OCCASIONAL VENTRICULAR PREMATURE COMPLEXES INTRAVENTRICULAR CONDUCTION DELAY [130+ ms QRS DURATION] VOLTAGE CRITERIA FOR LVH [MEETS CRITERIA IN ONE OF: R(aVL), S(V1), R(V5), R(V5/V6)+S(V1)] POSSIBLE SEPTAL MYOCARDIAL INFARCTION , OF INDETERMINATE AGE [30 ms Q WAVE IN V1/V2] Compared to ECG 12/10/2024 13:54:37 Ventricular premature complex(es) now present Myocardial infarct finding still present Electronically Signed On 12-10-2024 22:01:29 CDT by Jeffry Pugh M.D. [email or web address]
[2024-12-10 18:53] LABS: Troponin 5 6HR Delta -21.1 ng/L (0-12)
[2024-12-10 18:54] LABS: Troponin 5 6HR 158.9 ng/L (0-15)
[2024-12-10] MEDS: atorvastatin 40 mg Tablet 80 MG PO (21:33)
[2024-12-10] MEDS: hyDRALAzine 50 mg Tablet 100 MG PO (21:33)
[2024-12-10] MEDS: metoprolol tartrate 50 mg Tablet PO (21:33)
[2024-12-10] MEDS: acetaminophen 325 mg Tablet 650 MG PO (21:33)
[2024-12-11] VITALS (7 sets, daily range): BP systolic 122–186; BP diastolic 58–128; PULSE 61–78; RESP 8–16; TEMP 36.7–36.8; O2SAT 93–99
[2024-12-11] MEDS: heparin 5,000 unit/mL INJ 1 mL 5000 UNIT SUBCUT (03:57)
[2024-12-11 06:30] LABS: Glucose Point of Care 175 mg/dL (70-110)
[2024-12-11] MEDS: insulin glargine 100 units/1 mL 20 UNIT SUBCUT (06:30)
[2024-12-11] MEDS: regadenoson 0.4 Mg/5 ml Syringe IVP (07:27)
--- NOTE | 2024-12-11 07:30 | PC.NURSE ---
pt complained of chest pain 9 out of 10 pain scale immediately after stress test completion. one nitro sublingual was given per protocol. pt also complained of feeling nausated. nurse then gave a dose of aminophyllin. after 5 minutes pt stated the pain was a twing and no longer pain. he was also feeling better overall.
[2024-12-11] MEDS: nitroglycerin 0.4 mg sublingual Tablet SUBLINGUAL (07:48)
[2024-12-11] MEDS: aminophylline 25 mg/mL SDV 20 mL IVP (07:50)
[2024-12-11] MEDS: clopidogrel 75 mg Tablet PO (08:51)
[2024-12-11] MEDS: aspirin 81 mg EC Tablet PO (08:51)
[2024-12-11] MEDS: losartan 50 mg Tablet PO (08:51)
[2024-12-11] MEDS: metoprolol tartrate 50 mg Tablet PO (08:51)
[2024-12-11] MEDS: amlodipine 10 mg Tablet PO (08:52)
[2024-12-11] MEDS: hyDRALAzine 50 mg Tablet 100 MG PO (08:52)
--- NOTE | 2024-12-11 09:08 | P.PN_ITS ---
Subjective 2 Subjective: still SOB but improving. trace leg edema. no n/v/f/c/rudolph/d. +PAYNE Medications: Reviewed: Yes Medication Review Details: Current Medications Acetaminophen (Acetaminophen 325 Mg Tablet) 650 mg PO Q6H PRN PRN Reason: Mild/Mod Pain Or Temp >/= 101 Last Admin: 12/10/24 21:33 Dose: 650 mg Aminophylline (Aminophylline 25 Mg/Ml Sdv 20 Ml) 25 mg IVP Q2M PRN PRN Reason: see dose instructions Stop: 12/12/24 06:44 Last Admin: 12/11/24 07:50 Dose: 25 mg Amlodipine Besylate (Amlodipine 10 Mg Tablet) 10 mg PO DAILY PENDING SALE TO [facility] Last Admin: 12/11/24 08:52 Dose: 10 mg Aspirin (Aspirin 81 Mg Ec Tablet) 81 mg PO DAILY PENDING SALE TO [facility] Last Admin: 12/11/24 08:51 Dose: 81 mg Atorvastatin Calcium (Atorvastatin 40 Mg Tablet) 80 mg PO BEDTIME PENDING SALE TO [facility] Last Admin: 12/10/24 21:33 Dose: 80 mg Clopidogrel Bisulfate (Clopidogrel 75 Mg Tablet) 75 mg PO DAILY PENDING SALE TO [facility] Last Admin: 12/11/24 08:51 Dose: 75 mg Glucagon (Glucagon 1 Mg/Ml Kit 1 Ml) 1 mg IM ONCE PRN; Protocol PRN Reason: Adult Acute Hypoglycemia Nursing Prot. Heparin Sodium (Porcine) (Heparin 5,000 Unit/Ml Inj 1 Ml) 5,000 unit SUBCUT Q12H PENDING SALE TO [facility] Last Admin: 12/11/24 03:57 Dose: 5,000 unit Hydralazine HCl (Hydralazine 50 Mg Tablet) 100 mg PO TID PENDING SALE TO [facility] Last Admin: 12/11/24 08:52 Dose: 100 mg Dextrose (D5w) 500 mls @ 0 mls/hr IV ONCE PRN; Protocol PRN Reason: Adult Acute Hypoglycemia Prot Dextrose (D10w) 125 mls @ 750 mls/hr IV PRN PRN; Protocol PRN Reason: Adult Acute Hypoglycemia Nursing Protocol Dextrose (D10w) 250 mls @ 1,000 mls/hr IV PRN PRN; Protocol PRN Reason: Adult Acute Hypoglycemia Nursing Protocol Sodium Chloride (Sodium Chloride 0.9%) 1,000 mls @ 0 mls/hr IV .Q0M PRN PRN Reason: hypotension or symptomatic Albumin Human (Albumin) 12.5 gm in 50 mls @ 60 mls/hr IV PRN PRN PRN Reason: Hypotension and/or symptomatic Ibuprofen (Ibuprofen 200 Mg Tablet) 400 mg PO Q6H PRN PRN Reason: Mild/Mod Pain Or Temp >/= 101 Insulin Glargine (Insulin Glargine 100 Units/1 Ml) 20 unit SUBCUT QAM PENDING SALE TO [facility] Last Admin: 12/11/24 06:30 Dose: 20 unit Insulin Human Lispro (Insulin Lispro 100 Unit/1 Ml) 0 unit SUBCUT WM&BEDTIME PENDING SALE TO [facility]; Protocol Last Admin: 12/11/24 08:52 Dose: Not Given Losartan Potassium (Losartan 50 Mg Tablet) 50 mg PO DAILY PENDING SALE TO [facility] Last Admin: 12/11/24 08:51 Dose: 50 mg Metoprolol Tartrate (Metoprolol Tartrate 50 Mg Tablet) 50 mg PO BID@0900,2100 PENDING SALE TO [facility] Last Admin: 12/11/24 08:51 Dose: 50 mg Nitroglycerin (Nitroglycerin 0.4 Mg Sublingual Tablet) 0.4 mg SUBLINGUAL Q5M PRN PRN Reason: CHEST PAIN Stop: 12/12/24 06:44 Last Admin: 12/11/24 07:48 Dose: 0.4 mg Ondansetron HCl (Ondansetron 2 Mg/Ml Sdv 2 Ml) 4 mg IVP Q2M PRN PRN Reason: NAUSEA Vitals/I&O/Wt Last Vital Signs Temp 98.0 F 12/11/24 08:00 Pulse 63 12/11/24 08:00 Resp 12 12/11/24 08:00 BP 186/72 12/11/24 08:51 Pulse Ox 99 12/11/24 08:00 O2 Del Method Room Air 12/10/24 15:21 12/10/24 12/11/24 12/11/24 22:59 06:59 14:59 Intake Total 300 / 300 240 / 240 Output Total 1999 / 1999 Balance -1700 / -1700 240 / 240 Weight last 48 hrs Weight 81.221 kg Weight 99.8 kg Weight 99.79 kg Weight 99.79 kg Physical Exam 2 Narrative: Patient seen and examined. Vital signs noted blood pressure remains elevated. Patient appears a little short of breath sitting up. He is not using oxygen. HEENT normocephalic atraumatic Neck is supple Lungs are clear Heart is regular Abdomen soft positive bowel sounds Extremities left upper extremity AV graft with a good bruit. Anterior chest wall permacath. Neuro awake alert oriented x 3 Data 12/10/24 12:03 12/10/24 12:03 A&P Assessment and plan (1) End stage renal disease on dialysis: 64-year-old man ESRD, coronary artery disease. Patient here with chest pain. Patient had stress test this morning 1. ESRD for hemodialysis tomorrow continue Tuesday schedule. 2. Hypertension will work with cardiology to lower weight and adjust medications. 3. anemia- hgb 10 4. renal bone mineral metabolism- check vit d, pth 5. meds reviewed seen and examined w/ A/V equipement w/ aide of a RN- telehealth visit -pt consents to telehealth exam Plan per cardiology. plan HD tomorrow PDMP PDMP Reviewed: Not Reviewed Attestations 2 Medical Necessity Statement*: per cardiology Time Spent in Patient Care: 16 - 35 minutes (>than 50% of time sp ent in counselling and/or direct pt care on unit) . Coding Level of Care Code Acute Code for [facility] Fwd Diagnoses End stage renal disease on dialysis N18.6; Z99.2
--- NOTE | 2024-12-11 09:33 | PC.CHAP ---
Pastoral Care Encounter/Spiritual Assessment Type of Contact [] Declined tile layer visit [] Patient/Family/Request visit [] Outpatient visit [] Follow-up visit [] Physician referral [] Code/Alert [x] Routine visit [] Staff referral [] Actively dying [] Patient sleeping [] Family support [] [] Out of room [] Palliative care [] [] Receiving care in room [] Pre-surgical visit [] Trauma [] Long length of stay [] ICU visit [] Other: Relational/Emotional Strength [x] Patient feels connected with others/family/visitors/staff [] Distress [] Loneliness/isolation [] Abandonment Spirituality of Patient [x] Person of Gwendolyn [] Attends Mosque of their Gwendolyn [x] Believes in Prayer [] Reads Bible or Sikhism materials [] There are Spiritual issues to be addressed Switchboard Operator Supervisor Interventions [x] Prayer [] Active listening [x] Non-anxious presence [x] Spiritual/emotional support [] Crisis/trauma care [] Spiritual counseling [] Bereavement support [] Provided bereavement packet [] Provided Bible/devotional materials [] Provided toy/stuffed animal, coloring book to patient or family member [] Provided Communion [] Anointing/[place] [] Salvation [x] Completed spiritual assessment [] Other: Impact on Illness or Injury [] Angry [] Fearful [] Anxious [] Often cries [] Exhaustion [] Unable to work [] Unable to attend mu-ism [] Unable to walk/stand [] Unable to read [] Unable to drive [] Unable to eat/drink [] Unable to sleep [] Unable to be with family [] Patient intubated [] Other: Summary Time spent with patient 5 min
--- NOTE | 2024-12-11 09:58 | PM.PN ---
Subjective Subjective: Patient is chest pain-free. Stress test shows small area of ischemia. Vitals/I&O/Wt Last Vital Signs Temp 98.0 F 12/11/24 08:00 Pulse 63 12/11/24 08:00 Resp 12 12/11/24 08:00 BP 186/72 12/11/24 08:51 Pulse Ox 99 12/11/24 08:00 O2 Del Method Room Air 12/10/24 15:21 12/10/24 12/11/24 12/11/24 22:59 06:59 14:59 Intake Total 300 / 300 240 / 240 Output Total 1999 Balance -1700 / -1700 240 / 240 Weight last 48 hrs Weight 179 lb 1 oz Weight 220 lb 0.341 oz Weight 220 lb Weight 220 lb Physical Exam Narrative: GENERAL: Patient is alert, awake and oriented x3. [] NECK: No jugular vein distension. [] HEENT: No cyanosis. No icterus. No pallor. [] HEART: S1, S2, no murmur LUNGS: Clear to auscultation CENTRAL NERVOUS SYSTEM: Grossly nonfocal. [] EXTREMITIES: Lower extremities with 1+ edema bilaterally. Data 12/10/24 12:03 12/10/24 12:03 A&P Assessment and plan (1) Chest pain: (2) Hypertension: (3) CHF (congestive heart failure): (4) Hyperlipidemia: (5) CAD (coronary artery disease): (6) End stage renal disease on dialysis: Plan Patient's troponins are chronically elevated. Now chest pain-free. Stress test is low risk with small area of ischemia in circumflex artery territory. On review of prior angiogram circumflex artery is small sized vessel. Medical therapy for that Chest pain likely related to uncontrolled blood pressure. Uptitrate hydralazine to 100mg TID Thank you for involving us with care of this patient. We will continue to follow. Please call with questions. PDMP PDMP Reviewed: Not Reviewed Attestations Medical Necessity Statement*: Care expected to cross 2 midnights. Coding Level of Care Code Acute Code for [facility] Fwd Diagnoses Chest pain, unspecified type R07.9 Chest pain type: unspecified Primary hypertension I10 Hypertension type: primary hypertension Acute on chronic combined systolic and diastolic congestive heart failure I50.43 Heart failure type: combined systolic and diastolic Heart failure chronicity: acute on chronic Mixed hyperlipidemia E78.2 Hyperlipidemia type: mixed hyperlipidemia Coronary artery disease of [place] artery of [place] heart with stable angina pectoris I25.118 Coronary Disease-Associated Artery/Lesion type: [place] artery [place] vs. transplanted heart: [place] heart Associated angina: with stable angina End stage renal disease on dialysis N18.6; Z99.2
[2024-12-11 11:32] LABS: Glucose Point of Care 238 mg/dL (70-110)
--- NOTE | 2024-12-11 12:26 | PM.DCS ---
Discharge Providers Date of Admission: 12/10/24 14:37 Date of Discharge: December 11, 2024 Attending Provider at Admission: Mele Allen DO Attending Provider at Discharge: Mele Allen DO Consults: Cardiology, nephrology Primary Care Provider: Ezio Leahy Diagnoses at Discharge Discharge Diagnosis (1) Chest pain: Status: Acute Qualifiers: Chest pain type: unspecified Qualified Code(s): R07.9 - Chest pain, unspecified (2) Hypertension: Status: Acute Qualifiers: Hypertension type: primary hypertension Qualified Code(s): I10 - Essential (primary) hypertension (3) CHF (congestive heart failure): Status: Acute Qualifiers: Heart failure type: combined systolic and diastolic Heart failure chronicity: acute on chronic Qualified Code(s): I50.43 - Acute on chronic combined systolic (congestive) and diastolic (congestive) heart failure (4) Hyperlipidemia: Status: Acute Qualifiers: Hyperlipidemia type: mixed hyperlipidemia Qualified Code(s): E78.2 - Mixed hyperlipidemia (5) CAD (coronary artery disease): Status: Acute Qualifiers: Coronary Disease-Associated Artery/Lesion type: [place] artery [place] vs. transplanted heart: [place] heart Associated angina: with stable angina Qualified Code(s): I25.118 - Atherosclerotic heart disease of [place] coronary artery with other forms of angina pectoris (6) End stage renal disease on dialysis: Status: Acute Reason for Visit Reason for Visit: chest pain Brief History: Cam Trinh is a 64 year old male with known CAD recently stented x [address] [place] [address] 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 He describes the pain as a pressure. He says at maximum it was a 6 out of 10 currently is a 3 out of 10. The symptoms waxed and waned. He had some mild nausea and overall just felt off he was more lethargic than usual post hemodialysis and never recovered all weekend. He was slightly short of breath today walking to get his ride to dialysis he does describe pain into his jaw and entire left arm. Initially he thought this was due to the fistula that was newly placed a month ago. It has been successfully used until this past Tuesday when attempts at access were unsuccessful. He states that overall the swelling is better Hospital Course Hospital Course Patient's troponins are elevated but this is to be expected with end-stage renal disease. With known coronary artery disease and stents placed approximately 1 year ago cardiology was consulted. Nephrology was consulted for the patient to have hemodialysis on Tuesday. Appreciate their assistance Stress test today showed mild ischemia adjacent to the myocardial scarring in the distribution of the left circumflex artery. Cardiology reported that this left circumflex is a small vessel noted on last angiogram. With this small area medical therapy is recommended. Cardiology believes his chest pain is most likely related to uncontrolled blood pressure. Uptitrate hydralazine to 100 mg 3 times daily. And I will send the patient home with nitro tablets. Physical Exam Narrative: Patient is alert and oriented smiling with the good news that he can go home Heart is regular normal S1-S2 without loud murmur Lungs diminished breath sounds but clear throughout no wheezes rales or rhonchi Abdomen obese soft nontender nondistended positive bowel sounds no hepatosplenomegaly Extremities +1 to +2 pitting edema left greater than right to the knees there is dependent erythema. Left arm with fistula. There is bruising and edema throughout the whole arm and is tender to touch Discharge Data Studies Completed and Pending Completed Studies During Hospitalization Category Date Time Status XR chest 1V portable [id number] Stat Exams 12/10/24 11:52 Completed NM camelia perf SPECT r/s* [id number] Routine Nuc Med 12/11/24 16:14 Completed US echo complete [CV. echo complete* [id number]] Routine Ultrasound 12/10/24 16:16 Completed Pending at discharge Category Date Time Status Cardiac Stress Test MIBI [Sestamibi Stress Test Request Exams 12/10/24 16:13 Ordered ] Routine Radiology Impressions Chest X-Ray 12/10/24 11:52 IMPRESSION: Slightly waxing and waning infiltrates. Laboratory Results WBC 5.65 10^3/uL (3.29-11.43) 12/10/24 12:03 RBC 3.59 10^6/uL (3.85-5.65) L 12/10/24 12:03 Hgb 10.10 g/dL (11.27-16.99) L 12/10/24 12:03 Hct 29.9 % (37-53) L 12/10/24 12:03 MCV 83.3 fl (82-101) 12/10/24 12:03 MCH 28.1 pg (27-33) 12/10/24 12:03 MCHC 33.8 g/dL (30-55) 12/10/24 12:03 RDW 14.7 % (12.1-15.1) 12/10/24 12:03 Plt Count 239 10^3/cmm (157-399) 12/10/24 12:03 MPV 9.1 fL (7.4-10.4) 12/10/24 12:03 Neut % (Auto) 64.8 % 12/10/24 12:03 Lymph % (Auto) 24.4 % 12/10/24 12:03 [place] % (Auto) 8.8 % 12/10/24 12:03 Eos % (Auto) 0.9 % 12/10/24 12:03 Baso % (Auto) 0.9 % 12/10/24 12:03 Neut # (Auto) 3.66 10^3/uL (1.8-7.7) 12/10/24 12:03 Lymph # (Auto) 1.4 10^3/uL (0.8-4.8) 12/10/24 12:03 [place] # (Auto) 0.5 10^3/uL (0.2-0.9) 12/10/24 12:03 Eos # (Auto) 0.1 10^3/uL (0.0-0.8) 12/10/24 12:03 Baso # (Auto) 0.1 10^3/uL (0.0-0.1) 12/10/24 12:03 Nucleated RBC % (auto) 0 % 12/10/24 12:03 Nucleated RBCs # 0.0 /100WBC 12/10/24 12:03 Sodium 134 mmol/L (136-145) L 12/10/24 12:03 Potassium 3.8 mmol/L (3.5-5.1) 12/10/24 12:03 Chloride 94 mmol/L (98-107) L 12/10/24 12:03 Carbon Dioxide 27 mmol/L (22-29) 12/10/24 12:03 Anion Gap 16.8 (5-19) 12/10/24 12:03 BUN 45 mg/dL (8-23) H 12/10/24 12:03 Creatinine 4.6 mg/dL (0.7-1.2) H 12/10/24 12:03 GFR Calculation 13.0 mL/min (90-130) L 12/10/24 12:03 Glucose 238 mg/dL (65-115) H 12/10/24 12:03 POC Glucose 238 mg/dL (70-110) H 12/11/24 11:21 Calculated Osmolality 297 mOsm/kg (285-295) H 12/10/24 12:03 Calcium 8.7 mg/dL (8.5-10.5) 12/10/24 12:03 Total Bilirubin 0.4 mg/dL (0.15-1.2) 12/10/24 12:03 AST 10 U/L (0-40) 12/10/24 12:03 ALT 7 U/L (0-41) 12/10/24 12:03 Alkaline Phosphatase 96 U/L (40-130) 12/10/24 12:03 Troponin T Baseline 180 ng/L (0-15) H* 12/10/24 12:03 Troponin T 120 Minute 167.8 ng/L (0-15) H 12/10/24 14:25 Delta Troponin T -12.2 ABS# (0-10) L 12/10/24 14:25 Troponin T Hi Sens 6Hr 158.9 ng/L (0-15) H 12/10/24 18:15 Troponin T Hi Sens 6Hr Delta -21.1 ng/L (0-12) L 12/10/24 18:15 Total Protein 6.6 g/dL (6.6-8.7) 12/10/24 12:03 Albumin 3.4 g/dL (3.5-5.2) L 12/10/24 12:03 Globulin 3.2 g/dL (1.3-4.6) 12/10/24 12:03 Hep Bs Antigen Non-reactive (Nonreactive) 12/10/24 12:03 Hep Bs Antibody < 3.5 (11.5-1000) L 12/10/24 12:03 Hepatitis C Antibody Non-reactive (Nonreactive) 12/10/24 12:03 Vitals Last Vital Signs Temp 98.2 F 12/11/24 11:24 Pulse 69 12/11/24 11:24 Resp 15 12/11/24 11:24 BP 144/66 12/11/24 11:24 Pulse Ox 97 12/11/24 11:24 O2 Del Method Room Air 12/11/24 11:24 Discharge Plan Discharge Patient Disposition: Home Condition: Stable Prescriptions: New nitroglycerin 0.4 mg Tablet, Sublingual 0.4 mg sublingual Q5M PRN (Reason: Chest Pain) Qty: 30 0RF Continued metoprolol tartrate 50 mg tablet 50 mg PO BID@0900,2100 Qty: 180 3RF (DME) [place] Test Strip Strip See Rx Instructions .Route Qty: 100 12RF Rx Instructions: As directed (DME) lancets [ReliaMed Safety Seal Lancets] 30 gauge misc See Rx Instructions .Route Qty: 200 6RF Rx Instructions: As directed (DME) FreeStyle Igor 14 Day [place] Misc See Rx Instructions .Route Qty: 1 0RF Rx Instructions: As directed (DME) FreeStyle Igor 14 Day Sensor Kit See Rx Instructions .Route Qty: 1 12RF Rx Instructions: As directed insulin glargine [Lantus Solostar U-100 Insulin] 100 unit/mL (3 mL) insulin pen 20 unit SUBCUT QAM valsartan 160 mg tablet 160 mg PO DAILY Qty: 90 3RF (DME) diabetic shoes with 3 inserts See Rx Instructions .Route .MEDSUPPLY Qty: 1 0RF Rx Instructions: As directed to HOME (DME) pen needle, diabetic [1st Tier Unifine Pentips] 31 gauge x 3/16 needle See Rx Instructions .Route Qty: 100 5RF Rx Instructions: As directed acetaminophen 500 mg Tablet 1,000 mg PO Q6H PRN (Reason: Pain) insulin aspart U-100 [Novolog FlexPen U-100 Insulin] 100 unit/mL (3 mL) insulin pen See Rx Instructions .ROUTE .COMPLEX Qty: 15 0RF Rx Instructions: Inject 0 to6 units 3 times daily, after meals, based on sliding scale provided, atorvastatin 80 mg tablet 80 mg PO BEDTIME 30 Days Qty: 30 0RF clopidogrel 75 mg tablet 75 mg PO DAILY 30 Days Qty: 30 0RF aspirin 81 mg Tablet,Delayed Release (Dr/Ec) 81 mg PO DAILY 30 Days Qty: 30 0RF amlodipine 10 mg tablet 10 mg PO DAILY Changed hydralazine 50 mg tablet 100 mg PO TID Qty: 180 0RF Discharge Orders: Discharge Order (Routine); Ordered 12/11/24 Ordered By: Mele Allen Referrals: Ezio Leahy FNP [Primary Care Provider, Family Practice] Referral Note: We have notified your physician's clinic of the need for a follow-up appointment to be scheduled. If you have not heard from them within the next 2 business days, please call them directly. Discharge Diet: Cardiac and Diabetic Discharge Activity: Increase activity as tolerated Patient Instructions: Chest Pain - Noncardiac, Heart Failure (DC), Coronary Artery Disease (DC) Plan of Treatment: Increase dose of hydralazine to 100 mg 3 times a day. You may take double your dose at home. Advised for new prescription when almost out of the 50 mg tablets New prescription written for nitroglycerin tablets to be taken under the tongue when you experience chest pain again in the future a can be taken every 5 minutes 3 times. If at that point your chest pain is not controlled seek medical assistance Discharge Attestations Time Spent in Discharge Care*: less than 30 min Status at Discharge: Cognitive status at discharge: cognitively intact, Behavioral status at discharge: cooperative, Quality Metrics Clinical Quality Measures [ No reported AMI, CVA or VTE this stay] Coding Level of Care Code Acute Code for [facility] Fwd Diagnoses Chest pain, unspecified type R07.9 Chest pain type: unspecified Primary hypertension I10 Hypertension type: primary hypertension Acute on chronic combined systolic and diastolic congestive heart failure I50.43 Heart failure type: combined systolic and diastolic Heart failure chronicity: acute on chronic Mixed hyperlipidemia E78.2 Hyperlipidemia type: mixed hyperlipidemia Coronary artery disease of [place] artery of [place] heart with stable angina pectoris I25.118 Coronary Disease-Associated Artery/Lesion type: [place] artery [place] vs. transplanted heart: [place] heart Associated angina: with stable angina End stage renal disease on dialysis N18.6; Z99.2
--- NOTE | 2024-12-11 16:14 | NMCV_ITS ---
NM camelia perf SPECT r/s* [id number] Cam Trnih Age: 64 Gender: M : 1960 Exam Date: 12/11/2024 06:51 Ordering Phys: Ava Watts NP Technologist: ITZEL Duran Exam Location: [facility] Indications: cp STRESS TEST Please see separate stress test report in [facility] for full findings IMAGE PROTOCOL Rest/Stress 1 Lexiscan Day Radiopharmaceutical Dose (mCi) Administration Site Administered by Rest: Tc-99m 10.7 IV ITZEL Wheatley Sestamibi Stress:Tc-99m 32.8 IV ITZEL Duran Sestamiruth Rest: 11-Dec-2024 60 Discovery 630 Stress: 11-Dec-2024 30 Discovery 630 0.4mg Lexiscan. Supine position only as patient was unable to lay prone. Patient did atempt to do prone imaging but could not get into position to complete. SPECT RESULTS Technical Quality: Good Raw Data Analysis: Normal Image Corrections: No attenuation or motion correction applied Summed Stress Score: 2 Summed Rest Score: 2 Summed Difference Score: 1 PERFUSION FINDINGS Myocardial perfusion imaging revealing a small to moderate area of slightly decreased tracer uptake involving the basal and mid inferolateral segments with slight reversibility reversibility in the basal inferolateral segment FUNCTIONAL RESULTS (calculated via Gated SPECT) Stress Image LV EF (%): 43 Stress EDV (mL):207 TID: 1.19 Stress ESV (mL):118 FUNCTIONAL FINDINGS: Segmental wall motion analysis revealing diffuse hypokinesia of the left ventricle IMPRESSIONS 1. Myocardial perfusion imaging revealing mild to moderate area of slightly decreased tracer uptake in the inferolateral region with this some reversibility suggesting myocardial scarring with ischemia in the distribution of the left circumflex artery 2. Diminished LV ejection fraction 43%. 3. Segmental wall motion analysis revealing diffuse hypokinesia of the left ventricle 4. Moderately dilated LV cavity with an end-systolic volume of 118 mL 5. Elevated transient ischemic dilatation ratio 1.19 also may suggest ischemia. Compared to the study from 06/22/2022, the area of ischemia appears to be in a different coronary territory. The LV cavity appears to be more dilated as well. Dr Jeffry Pugh MD FAC (Electronically Signed) Final Date: 11 December 2024 09:23 S
== END 2024-12-11 15:57 | disposition home or self-care (01) ==
LOC: ER 12:02 → CSU 14:38
PROVIDERS: Hospitalist; Admitting Provider Internal Medicine; Emergency Provider Family Medicine; PCP Nurse Practitioner Family; Visit Provider Internal Medicine
DX: I50.43 Acute on chronic combined systolic (congestive) and diastolic (congestive) heart failure (principal); I25.118 Atherosclerotic heart disease of native coronary artery with other forms of angina pectoris; E11.22 Type 2 diabetes mellitus with diabetic chronic kidney disease; I13.0 Hypertensive heart and chronic kidney disease with heart failure and stage 1 through stage 4 chronic kidney disease, or unspecified chronic kidney disease; N18.9 Chronic kidney disease, unspecified; E78.5 Hyperlipidemia, unspecified; Z99.2 Dependence on renal dialysis; Z79.82 Long term (current) use of aspirin; Z79.4 Long term (current) use of insulin; Z95.5 Presence of coronary angioplasty implant and graft
CPT/HCPCS: 36415; 36416; 71045; 78452; 80053; 82962; 84484; 85025; 86706; 86803; 87340; 90935; 93005; 93017; 93306; 96365; 96372; 96375; 99285; A9500; G0378; J0280; J1644; J1815; J2785; J9999

== ENCOUNTER 2025-01-02 15:22 | Emergency (ER) | payer MEDICARE, MEDICAID, SELFPAY ==
--- OUTSIDE RECORDS SUMMARY | 2020-07-28 04:25 | XMS_ITS | Continuity of Care Document ---
Author Organization [facility] Address [address] [place] [address] Phone Care Team Providers Care Quality Improvement Manager Name Role Phone Stevie Aaron OD Unavailable Unavailable Allergies, Adverse Reactions, Alerts Substance Reaction Status Criticality No Known Allergies Active No Inform ation Medications Medication Instructions Dosage Effective Dates (start - stop) Status Comments ramipril 10 mg capsule take 1 capsule by oral route every day 10 MG - Active metformin 1,000 mg tablet take 1 tablet by oral route 2 times every day with morning and evening meals 1000 MG - Active metoprolol tartrate 50 mg tablet take 1 tablet by oral route 2 times every day with meals 50 MG - Active felodipine ER 10 mg tablet,extended release 24 hr take 1 tablet by oral route every day 10 MG - Active gabapentin 300 mg capsule take 3 capsule by oral route 3 times every day 900 MG - Active Les Doe U-100 Insulin 100 unit/mL (3 mL) subcutaneous inject 60 unit by subcutaneous route every morning and 80 units every evening - Active hydrochlorothiazide 25 mg tablet take 1 tablet by oral route every day 25 MG - Active clopidogrel 75 mg tablet take 1 tablet b y oral route every day 75 MG - Active clopidogrel 75 mg tablet take 1 tablet b y oral route every day 75 MG - Active omeprazole 20 mg capsule,delayed release take 1 capsule by oral route 2 times every day before a meal 20 MG - Active duloxetine 30 mg capsule,delayed release take 1 capsule by oral route every day 30 MG - Active covering BD Ultra-Fine Original Pen Needle 29 gauge x 1/2 use daily to inject insulin 60 units am and 80units pm - Active insulin syringe-needle U-100 1 mL 31 gauge x 5/16 use daily to inject insulin 80 units am and 60 units pm - Active Novolog U-100 Insulin aspart 100 unit/mL subcutaneous solution inject 10 units by subcutaneous route 3 times every day - Active DISREGARD PREVIOUS RX. THANK YOU BS BD Insulin Syringe Ultra-Fine 1 mL 31 gauge x 5/16 use as directed. - Active Lantus U-100 Insulin 100 unit/mL subcutaneous solution inject 80 Unit SC Q AM; 60 units Q PM - Active Procedures Procedure Date Glu; Bld Reagent Strip Hep A-hep B Vaccine Adult Dose 19 Single Immunization Administration Offic/outpt E&m Estab Low-mod 9 Offic/outpt E&m Estab Low-mod 9 Offic/outpt E&m Estab Mod-hi 2 19 EKG 12 Lead; Tracing Only Hep A-hep B Vaccine Adult Dose 19 Single Immunization Administration Glu; Bld Reagent Strip Offic/outpt E&m Estab Minor 10 18 Offic/outpt E&m Estab Mod-hi 2 18 Offic/outpt E&m Estab Low-mod 8 Extraction, Erupted Tooth Intraoral Periapical First Kemar 18 Bitewing Single Film Offic/outpt E&m Estab Low-mod 8 OFFICE/OUTPATIENT VISIT, NEW Advance Directives Directive Yes / No Effective Date File Name No Information Encounters Encounter Description Practice Location Reason(s) For Visit Diagnoses Date Provider Providers Copied on Encounter [facility], [address], [place], [id number], [place] tel:[phone] [facility] No Information 1 Agnieszka Hubbard. [address] [place], [place], [id number], [place]. tel:[phone] [facility], [address], [id number], [place] tel:[phone] [facility] No Information 9 No Information [facility], [address] [place] [address], [id number], [place] tel:[phone] [facility] No Information 9 No Information [facility], [address], [id number], [place] tel:[phone] [facility] No Information 9 No Information [facility], [address] [place] [address], [id number], [place] tel:[phone] [facility] No Information 9 No Information [facility], [address] [place], [place], [id number], [place] tel:[phone] [facility] No Information 9 No Information [facility], [address], [id number], [place] tel:[phone] [facility] No Information 9 No Information [facility], [address] [place] [address], [id number], [place] tel:[phone] [facility] No Information 9 No Information Offic/outpt E&m Estab Low-mod [facility], [address], [id number], [place] tel:[phone] [facility] Toe pain (chief complaint)d iabetes (chief complaint) Dietary Counseling and SurveillanceOb elsa (Adult BMI: 34 - 35)Need for hepatitis A and B vaccinationToe pain, leftInsulin dependent diabetes mellitusLong term (current) use of insulinEssenti al hypertensionH. pylori infection 9 No Information Offic/outpt E&m Estab Low-mod [facility], [address], [place], [id number], [place] tel:[phone] [facility] healthcare follow up (chief complaint) Dietary Counseling and SurveillanceOb elsa (Adult BMI: 35 - 36)H. pylori infectionInsul in dependent diabetes mellitusLong term (current) use of insulinEssenti al hypertensionCh ronic obstructive pulmonary disease, unspecified COPD typeBlack stool 9 No Information Offic/outpt E&m Estab Mod-hi 2 [facility], [place] [facility], [place], [id number], [place] tel:[phone] [facility] chest pain (chief complaint)B lack stool (chief complaint)d iabetes (chief complaint) Dietary Counseling and SurveillanceOb elsa (Adult BMI: 36 - 37)Black stoolNeed for hepatitis A and B vaccinationIns ulin dependent diabetes mellitusLong term (current) use of insulinDisabil ity examinationFun ctional dyspepsiaEncou nter for screening for malignant neoplasm of colonChest pressure 9 No Information [facility], [address] [place] [address], [id number], [place] tel:[phone] [facility] No Information 9 No Information [facility], [address] [place] [address], [id number], [place] tel:[phone] [facility] No Information 9 No Information Offic/outpt E&m Estab Minor 10 [facility], [address], [place], [id number], [place] tel:[phone] [facility] diabetes follow up (chief complaint)r eflux follow up (chief complaint) Dietary Counseling and SurveillanceOb elsa (Adult BMI: 37 - 38)Essential hypertensionIn sulin dependent diabetes mellitusLong term (current) use of insulinGastroe sophageal reflux disease, esophagitis presence not specified 8 No Information [facility], [address] [place] [address], [id number], [place] tel:[phone] [facility] No Information 8 No Information Offic/outpt E&m Estab Mod-hi 2 [facility], [address] [place] [address], [id number], [place] tel:[phone] [facility] Diabetes (chief complaint) Dietary Counseling and SurveillanceOb elsa (Adult BMI: 35 - 36)Insulin dependent diabetes mellitusLong term (current) use of insulinEssenti al hypertensionHi story of strokeGastroes ophageal reflux disease, esophagitis presence not specifiedDepre ssion, unspecified depression typeImmunizati on due 8 No Information [facility], [address] [place] [address], [id number], [place] tel:[phone] [facility] diabetes (chief complaint)e ar pressure (chief complaint) Dietary Counseling and SurveillanceOb elsa (Adult BMI: 37 - 38)Insulin dependent diabetes mellitusLong term (current) use of insulinEssenti al hypertensionNe ed for hepatitis A and B vaccinationHig h triglyceridesP ressure sensation in right ear 8 No Information [facility], [address] [place] [address], [id number], [place] tel:[phone] [facility] Dental caries on smooth surface penetrating into pulpChronic periodontitis, generalized, moderate 8 No Information [facility], [address] [place] [address], [id number], [place] tel:[phone] [facility] Fishing license request (chief complaint)D iabetes (chief complaint) Insulin dependent diabetes mellitusNeed for hepatitis C screening testEssential hypertension 8 No Information OFFICE/OUTPA TIENT VISIT, [facility], [address] [place] [address], [id number], [place] tel:[phone] [facility] Establish care (chief complaint) Dietary Counseling and SurveillanceOb elsa (Adult BMI: 37 - 38)Type 2 diabetes mellitus with diabetic neuropathy, with long-term current use of insulinHistory of strokeEssentia l hypertension 8 No Information Family History Family Member Type Diagnosis Age At Onset No Information Immunizations Vaccine Date Status Comments Twinrix administered Note: Immunizat ion ordered, verified and approved by Eusebio Mena MD. Patient tolerated well. Band-Aid applied. AC ; Source: New Immunization Record Twinrix administered Note: Immunizat ion ordered verified and approved by Stacie Dunn PA-C. Patient tolerated injection well band-aid applied. AC ; Source: New Immunization Record Payers Payer name Insurance type Covered green party ID Authoriza tisanjuana(s) [employer] MB [id number] [facility] MC[employer] Prim [id number] Code 18 2016 [id number] [employer] MB [id number] [facility] [employer] Prim [id number] Code 18 2016 [id number] [employer] [id number] [employer] [employer] Prim [id number] Code 18 2016 [id number] Social History Type Description Quantity Date Captured Comments Alcohol Use Details Unknown Caffeine Use Details Unknown Tobacco Use Status No Information Smoking Status No Information Sex Male Sexual Orientation Straight or heterosexual Gender Identity Male Chief Complaint And Reason For Visit No Information Reason For Referral Reason For Referral No Information Plan Of Treatment Date Type Action Status Goal Lipid Panel. Due on 019 due Goal Low-dose CT for Lung CA Scrn. Due on due Goal Creatinine. Due on due Goal Microalb/Creat R [facility]. Due on due Goal Hemoglobin A1c. Due on due Goal Foot Exam. Due on due Goal Dilated Retinal Exam. Due on due Goal Comprehensive Me tabolic Panel. Due on due Goal BMP. Due on due Goal Low-dose CT for Lung CA Scrn. Due on due Goal Dilated Retinal Exam. Due on due Goal Foot Exam. Due on 9 due Goal Diet Education completed Goal Diet Education completed Goal Low-dose CT for Lung CA Scrn. Due on due Goal Foot Exam. Due on 9 due Goal Dilated Retinal Exam. Due on due Goal Diet Education completed Goal Diet Education completed Goal Dilated Retinal Exam. Due on due Goal Low-dose CT for Lung CA Scrn. Due on due Goal Foot Exam. Due on 9 due Goal Hemoglobin A1c. Due on due Goal Diet Education completed Goal Diet Education completed Goal Diet Education completed Goal Diet Education completed Goal Foot Exam. Due on 8 due Goal Dilated Retinal Exam. Due on due Goal Low-dose CT for Lung CA Scrn. Due on due Goal Diet Education completed Goal Diet Education completed Goal Low-dose CT for Lung CA Scrn. Due on due Goal Foot Exam. Due on 8 due Goal Dilated Retinal Exam. Due on due Goal Low-dose CT for Lung CA Scrn. Due on due Goal Dilated Retinal Exam. Due on due Goal Foot Exam. Due on 8 due Goal Diet Education completed Goal Diet Education completed Goal Diet Education completed Goal Diet Education completed Goal Low-dose CT for Lung CA Scrn. Due on due Goal Dilated Retinal Exam. Due on due Goal Foot Exam. Due on 8 due Goal Diet Education completed Goal Diet Education completed Goal Diet Education completed Goal Diet Education completed Goal Foot Exam. Due on 8 due Goal Dilated Retinal Exam. Due on due Goal Creatinine. Due on 18 due Goal Hep C Ab w/Rflx to Hep C RNA, PCR w/Rflx to Genotype, LIPA. Due on due Goal Hemoglobin A1c. Due on due Goal Low-dose CT for Lung CA Scrn. Due on due Goal BMP. Due on due Goal Hep C Ab w/Rflx to Hep C RNA, PCR w/Rflx to Genotype, LIPA. Due on due Goal BMP. Due on due Goal Lipid Panel. Due on 018 due Goal Low-dose CT for Lung CA Scrn. Due on due Goal Hemoglobin A1c. Due on due Goal Foot Exam. Due on 8 due Goal Microalb/creat r atio. Due on due Goal Dilated Retinal Exam. Due on due Goal Creatinine. Due on 18 due Goal Smoking cessation education completed Goal Diet Education completed Goal Diet Education completed Goal Smoking cessation education completed Goal Diet Education completed Goal Diet Education completed Referral Ordered: X-ray little toe left foot Left ordered Referral Ordered: Rad Exam Chest 2 Views ordered Referral Ordered: Cardiology Referral ordered Future Order: Lab Order C-Peptid e ([id number]), Sent on: Sent Future Order: Lab Order Hgb A1c with MBG Estimation ([id number]), Sent on: Sent History Of Present Illness Encounter Date Complaint History Of Prese nt Illness diabetes The diabetes fred litus began in 2000. Risk factors include: obesity. Patient is compliant with using medication, and follow-up. He Has been managed with oral medications and insulin. Comorbidity: Hypertension. Additional information: The patient is currently taking Lantus U-100 80 units in the AM and 60 units in the PM and metformin 1000 mg one tablet twice a day. Toe pain The patient pres ents with pain and swelling of the left fifth digit on the left foot. He does not recall any injury but believes it may be fractured. diabetes (comments) He's also ta jeny Gabapentin 300 mg three capsules three times every day. His BS reading this morning was 117. healthcare follow up The patient is here to discuss lab results from 10/12/18. No acute medical concerns at this time. diabetes (comments) He was last employed in 2004 and due to complications from his diabetes cannot maintain gainful employment. The patient is currently taking Lantus U-100 80 units in the AM and 60 units in the PM, metformin 1000 mg one tablet twice a day, gabapentin 300 mg three capsules three times every day and Novolog U-100 units per provider's instructions. Black stool The patient has noticed dark spots in his stool and has seen bright red blood on the toilet paper in the past. He has a history of diverticulitis and had a colonoscopy performed (2008) while living in [place]. Pt states the colonoscopy showed benign polyps and he was placed on antibiotics. He also had an endoscopy performed and was diagnosed with reflux disease. Pt was told to manage his issues with diet and was placed on omeprazole. Pt is currently taking omeprazole 20 mg take one tablet at bedtime. diabetes The diabetes fred hoffman began in 2000. Risk factors include: obesity. Patient is compliant with using medication. He Has been managed with oral medications. Home glucose readings: Min 120, Max 184 Comorbidity: Hypertension. Additional information: The patient is requesting completion of [facility] [employer] and [employer] paperwork. chest pain The patient pres ents with a complaint of chest pain. The symptoms began 3 days ago. Relevant history for this patient includes diabetes, hypertension and obesity. He has a history of former tobacco use. The chest pain is associated with pressure. Additional information: The patient states his chest pain feels like someone is sitting on him . The pain radiates into the left arm. He has been followed by a transcribing operator head in the past but not currently. reflux follow up He had been liseth ing ranitidine 300 mg one tablet at bedtime, but had to stop it because it made him nauseous. Pt is requesting a change in medication for his reflux. diabetes follow up The patient i s currently taking Lantus U-100 80 units in the AM and 60 units in the PM, metformin 1000 mg one tablet twice a day, gabapentin 300 mg three capsules three times every day and Novolog U-100 per provider's instructions. Diabetes The diabetes fred hoffman began in 2000. Risk factors include: obesity. Comorbidity: Hypertension. Additional information: The patient states he needs refills of all his medications as he has run out of everything. He left the area to be with family in [place] and recently came back to [facility]. Diabetes (comments) He has not b een seen by a medical provider since last evaluated by the Cookie Pillai on 01/27/18. No acute medical concerns at this time. diabetes Risk factors inc lude: obesity. Patient is compliant with using medication, and follow-up. Comorbidity: Hypertension. Additional information: The patient is here to discuss his baseline lab results from 01/13/18. He's currently taking Lantus 80 units in the morning and 60 units in the evening in addition to Novolog sliding scale and Metformin 1000 mg one tablet twice a day. ear pressure Over two months ago while living in [place], the patient fell and struck the right side of his face on concrete. He denies losing consciousness during the fall. Since that time he's noticed a pressure in his right ear, that's worse when coming down from high elevations. diabetes (comments) He denies rudolph ving episodes where he feels shaky or dizzy. Pt tests his blood sugar regularly. He has a history of sleep apnea and received sleep apnea equipment in the past. After the patient lost 100 lbs, he was rechecked for sleep apnea in [place] and was informed he did not need equipment at this time. Pt moved to [facility] two months ago from [place], to stay with a friend. He denies using illicit substances. 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 He presents with paperwork in hopes of obtaining a free fishing license. Diabetes Risk factors inc lude: obesity. Patient is compliant with using medication, and follow-up. He Has been managed with oral medications, insulin and fingerstick blood sugars (). Comorbidity: Hypertension. Pertinent negatives include blurred vision and chest pain. Additional information: Hx of diabetes and is currently taking: Lantus 60 U before bed and 80 U of Lantus in the morning and Novolog slide scale and Metformin 1000mg BID. Pt states that he has been taking this much Lantus for many years; this treatment was started while living in [place]. His average BG include: 150-250. Today his fasting BG was 175. About 5 days ago he had a reading of 95.. Establish care Active medicatio ns: clopidogrel 75 mg take one tablet daily, duloxetine 30 mg take one capsule daily, felodipine ER 10 mg take one tablet daily, gabapentin 300 mg take three capsules three times every day, hydrochlorothiazide 25 mg take one tablet daily, Lantus U-100 mg insulin inject 60 units every evening, metformin 1000 mg take one tablet twice a day, metoprolol succinate ER 50 mg take 1.5 tablets daily, Novolog U-100 insulin inject 20 units per prescriber's instructions, ramipril 10 mg take one capsule daily and ranitidine 300 mg take one tablet at bedtime.Medication allergies: noneSocial Hx: the patient moved to [facility] 3 days ago from [place]. Pt receives SSI benefits (started in 2011). 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 Pt is not a .Medical issues: diabetes, neuropathy, HTN, Hx of stroke. Pt had a recent diagnostic coronary artery catheterization, which he states was normal. Functional Status Date Functional Assessmen t No Information Instructions Date Instruction Additional Infor mation Exercising regularly and watching what you eat are important to your health. Diet and physical activity are equally important. Increase fruits and vegetables and lean meats and avoid processed foods and sugary drinks. For more information you can visit [email or web address]. Related to Dietary Counseling and Surveillance Diet Education Related to Dieta ry Counseling and Surveillance Patient advised about exercise R elated to Dietary Counseling and Surveillance Diet Education Related to Dieta ry Counseling and Surveillance Patient advised about exercise R elated to Dietary Counseling and Surveillance Exercising regularly and watching what you eat are important to your health. Diet and physical activity are equally important. Increase fruits and vegetables and lean meats and avoid processed foods and sugary drinks. For more information you can visit [email or web address]. Related to Dietary Counseling and Surveillance Diet Education Related to Dieta ry Counseling and Surveillance Patient advised about exercise R elated to Dietary Counseling and Surveillance Diet Education Related to Dieta ry Counseling and Surveillance Patient advised about exercise R elated to Dietary Counseling and Surveillance Exercising regularly and watching what you eat are important to your health. Diet and physical activity are equally important. Increase fruits and vegetables and lean meats and avoid processed foods and sugary drinks. For more information you can visit [email or web address]. Related to Dietary Counseling and Surveillance Diet Education Related to Dieta ry Counseling and Surveillance Patient advised about exercise R elated to Dietary Counseling and Surveillance Diet Education Related to Dieta ry Counseling and Surveillance Patient advised about exercise R elated to Dietary Counseling and Surveillance Diet Education Related to Dieta ry Counseling and Surveillance Patient advised about exercise R elated to Dietary Counseling and Surveillance Diet Education Related to Dieta ry Counseling and Surveillance Patient advised about exercise R elated to Dietary Counseling and Surveillance Exercising regularly and watching what you eat are important to your health. Diet and physical activity are equally important. Increase fruits and vegetables and lean meats and avoid processed foods and sugary drinks. For more information you can visit [email or web address]. Related to Dietary Counseling and Surveillance Diet Education Related to Dieta ry Counseling and Surveillance Patient advised about exercise R elated to Dietary Counseling and Surveillance Diet Education Related to Dieta ry Counseling and Surveillance Patient advised about exercise R elated to Dietary Counseling and Surveillance Exercising regularly and watching what you eat are important to your health. Diet and physical activity are equally important. Increase fruits and vegetables and lean meats and avoid processed foods and sugary drinks. For more information you can visit [email or web address]. Related to Dietary Counseling and Surveillance Diet Education Related to Dieta ry Counseling and Surveillance Patient advised about exercise R elated to Dietary Counseling and Surveillance Diet Education Related to Dieta ry Counseling and Surveillance Patient advised about exercise R elated to Dietary Counseling and Surveillance Diet Education Related to Dieta ry Counseling and Surveillance Patient advised about exercise R elated to Dietary Counseling and Surveillance Diet Education Related to Dieta ry Counseling and Surveillance Patient advised about exercise R elated to Dietary Counseling and Surveillance Exercising regularly and watching what you eat are important to your health. Diet and physical activity are equally important. Increase fruits and vegetables and lean meats and avoid processed foods and sugary drinks. For more information you can visit [email or web address]. Related to Dietary Counseling and Surveillance Diet Education Related to Dieta ry Counseling and Surveillance Patient advised about exercise R elated to Dietary Counseling and Surveillance Diet Education Related to Dieta ry Counseling and Surveillance Patient advised about exercise R elated to Dietary Counseling and Surveillance Diet Education Related to Dieta ry Counseling and Surveillance Patient advised about exercise R elated to Dietary Counseling and Surveillance Diet Education Related to Dieta ry Counseling and Surveillance Patient advised about exercise R elated to Dietary Counseling and Surveillance Exercising regularly and watching what you eat are important to your health. Diet and physical activity are equally important. Increase fruits and vegetables and lean meats and avoid processed foods and sugary drinks. For more information you can visit [email or web address]. Related to Dietary Counseling and Surveillance Diet Education Related to Dieta ry Counseling and Surveillance Patient advised about exercise R elated to Dietary Counseling and Surveillance Diet Education Related to Dieta ry Counseling and Surveillance Patient advised about exercise R elated to Dietary Counseling and Surveillance Diet Education Related to Dieta ry Counseling and Surveillance Patient advised about exercise R elated to Dietary Counseling and Surveillance Diet Education Related to Dieta ry Counseling and Surveillance Patient advised about exercise R elated to Dietary Counseling and Surveillance Assessments Type Assessment Date No Information Patient Care Teams Name Effective Dates (start - stop) Status Members No Information
--- OUTSIDE RECORDS SUMMARY | 2024-05-11 02:00 | XMS_ITS ---
Author Organization [facility] Billing Info Address [address] [place] [id number] Care Team Providers Care Copy Messenger Name Role Phone SUNITA RADHA Salas [phone] Encounters Encounter Location Date Provider Diagnosis [id number] [address] [place], [place] [id number] 05/11/2024 RADHA DORSEY Plan Of Treatment No Information Progress Notes * ZIGGY, Cam GDOB: (64 yo M)Acc No.[id number]:05/11/2024 PROGRESS NOTE Patient: Cam NEIL Provider: Andres DORSEY APRN :1960 A ge:64 Y S ex:Male Date:05/11/2024 C HN#:[id number] Address:[address] [place] [address], [address], [place] [id number] Subjective: * Chief Complaints: * * Medical History: Objective: * Vitals: Assessment: Plan: * Treatment: * * This progress note has not b een verified nor is it considered complete until locked and signed by the provider. Sign off status: Pending * Provider: Adnres DORSEY APRN Date: 07/11/2023 Generated for Pham swenson/Suleman/Scotitting on: 0 01/02/2025 07:41 AM CDT
--- OUTSIDE RECORDS SUMMARY | 2024-05-14 02:00 | XMS_ITS ---
Author Organization [facility] Billing Info Address [address] [place] [id number] Care Team Providers Care Double Needle Operator Name Role Phone SUNITA RADHA Salas [phone] Encounters Encounter Location Date Provider Diagnosis [id number] [facility] [address] [place], [place] [id number] 05/14/2024 RADHA DORSEY Plan Of Treatment No Information Progress Notes * ZIGGY, Cam GDOB: (64 yo M)Acc No.[id number]:05/14/2024 PROGRESS NOTE Patient: Cam NEIL Provider: Andres DORSEY APRN :1960 A ge:64 Y S ex:Male Date:05/14/2024 C HN#:[id number] Address:[address] [place] [address], [address], [place] [id number] Subjective: * Chief Complaints: * * Medical History: Objective: * Vitals: Assessment: Plan: * Treatment: * * This progress note has not b een verified nor is it considered complete until locked and signed by the provider. Sign off status: Pending * Provider: Andres DORSEY APRN Date: 07/14/2023 Generated for Pham swenson/Suleman/Scotitting on: 0 01/02/2025 07:41 AM CDT
--- OUTSIDE RECORDS SUMMARY | 2024-05-21 04:45 | XMS_ITS ---
Author Organization [facility] Billing Info Address [address] [place] [id number] Care Team Providers Care Emblem Drawer In Name Role Phone SUNITA RADHA Salas [phone] Encounters Encounter Location Date Provider Diagnosis [id number] [facility] [address] [place], [place] [id number] 05/21/2024 RADHA DORSEY Plan Of Treatment No Information Progress Notes * ZIGYG, Cam GDOB: (64 yo M)Acc No.[id number]:05/21/2024 PROGRESS NOTE Patient: Cam NEIL Provider: Andres DORSEY APRN :1960 A ge:64 Y S ex:Male Date:05/21/2024 C HN#:[id number] Address:[address] [place] [address], [address], [place] [id number] Subjective: * Chief Complaints: * * Medical History: Objective: * Vitals: Assessment: Plan: * Treatment: * * This progress note has not b een verified nor is it considered complete until locked and signed by the provider. Sign off status: Pending * Provider: Andres DORSEY APRN Date: 07/21/2023 Generated for Pham swenson/Suleman/Scotitting on: 0 01/02/2025 07:41 AM CDT
--- OUTSIDE RECORDS SUMMARY | 2024-12-26 13:00 | XMS_ITS | Encounter Summary ---
Author Organization [facility] Address [address] [place] [address] Care Team Providers Care Molder Sweep Name Role Phone Unavailable Primary Care Provider Unavailabl e Reason for Referral * Eval and Treat (Routine) - Open Specialty Diagnoses / Procedures Referred By Contac t Referred To Contact Palliative Care Diagnoses Diabetic polyneuropathy associated with type 2 diabetes mellitus ([facility]) ESRD on hemodialysis ([facility]) NSTEMI (non-ST elevated myocardial infarction) ([facility]) Procedures MS OFFICE/OUTPATIENT ESTABLISHED MOD MDM 30 MIN MS OFFICE/OUTPATIENT NEW MODERATE MDM 45 MINUTES Adali Hammond PA [address] [facility] [address] [place] [address] Phone: tel: fax: [facility] [address] [place] [address] Phone: tel: fax: Referral ID Status Reason Start Date Expiration Date Visits Re quested Visits Authorized [id number] Open 12/26/2024 12/26/2025 1 1 Reason for Visit * Reason Comments Follow Up * Eval and Treat (8-30 Days) - Closed Specialty Diagnoses / Procedures Referred By Contac t Referred To Contact Diagnoses Spinal stenosis of lumbar region with neurogenic claudication Procedures MS OFFICE/OUTPATIENT ESTABLISHED MOD MDM 30 MIN MS OFFICE/OUTPATIENT NEW MODERATE MDM 45 MINUTES Paulino Travis MD [address] [place] [address] Phone: tel: fax: Jonathan Chaudhry MD [address] [place] [phone] Phone: tel: fax: Referral ID Status Reason Start Date Expiration Date Visits Re quested Visits Authorized [id number] Closed 10/23/2024 10/23/2025 1 1 Encounter Details Date Type Department Care Team (Latest Contact Info) Description 12/26/2024 1:00 PM CDT Office Visit [facility] [address] [place] [phone] Adali Hammond PA [address] [place] [phone] Degeneration of intervertebral disc of lumbar region with discogenic back pain and lower extremity pain (Primary Dx); Lumbar disc herniation with radiculopathy; Diabetic polyneuropathy associated with type 2 diabetes mellitus (CMS/HCC); ESRD on hemodialysis ([facility]/HCC); Neuropathy; History of non-ST elevation myocardial infarction (NSTEMI) Social History Tobacco Use Types Packs/Day Years Used Date Smoking Tobacco: Former Cigarettes S tarted: 08/21/1975 Cigars Tobacco Cessation:Counseling Given: Not Answered Alcohol Use Standard Drinks/Week Comments Not Currently 0 (1 standard drink = 0.6 oz pur e alcohol) Feeling Safe Answer Date Recorded Are you in a relationship wi th someone who hurts you emotionally and/or physically? 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 is here for hospital follow follow-up. Pt reported Lt leg giving out on him. Plan was for routine follow up as he wasn't able to have surgical intervention secondary to other health issues. Pain is located at Lt leg. Rates pain as 6-9/10. He also has severe neuropathy and cannot feel his feet. Patient denies bowel or bladder incontinence, saddle paresthesias, urinary retention. He has a hx of DM II, ESRD, CAD s/p JUAN x2 for [place] back in July 2024 in [place], EF 45%. Still on antiplatelet medications and cardiology has recommended until 1 year daren. He reports that he lives off the grid. High risk of coming off of plavix and I think the risk of doing so for lumbar surgery outweighs thepotential benefit at this time. I have reviewed in detail the patient's electronic medical record this date including past medical history, present medications, allergies, past surgical history, family history, social history, and review of systems. BP (!) 152/86 Ht 6' (1.829 m) Wt 98.9 kg (218 lb) BMI 29.57 kg/m?? Musculoskeletal: There is not palpable pain over the lumbar spine vertebra. Muscle strength is 5/5 (generalized weakness) in the bilateral deltoids, biceps, triceps, wrist extensors, hand intrinsics, iliopsoas, quadriceps, tibialis anterior, gastrocnemius and extensor hallicus longus with the exception of the Rt gastrocnemius Muscle tone in the upper and lower extremities within normal limits. There is a antalgic gait. The straight leg raise is negative on the bilateral. Neurological: The patient is alert, oriented to time, place, and person. Cranial nerves are grosslyintact. The patient has normal sensation to light touch throughout the bilateral upper and lower extremities in all dermatomal distributions without exception. Deep tendon reflexes are 1-2/4 and equal throughout the bilateral upper and lower extremities. The great toes are downgoing bilateral without clonus. IMAGING: For MRI: [facility] - Results for orders placed during the hospital encounter of 10/20/24 MRI LUMBAR WO CONTRAST Narrative Exam: MRI LUMBAR WO CONTRAST Date/Time of Exam: 10/20/2024 1:39 PM Reason For Exam: Low back pain, cauda equina syndrome suspected. Diagnosis: See Reason for Exam. Technique: MRI of the lumbar spine was performed without the administration of intravenous contrast. Findings: There is mild retrolisthesis at L3-4. No compression fracture or significant marrow edema. The conus terminates at T12-L1. L1-2: Unremarkable. L2-3: Mild disc bulge and facet arthropathy with mild bilateral foraminal narrowing. L3-4: Disc bulge and facet arthropathy with narrowing of the right subarticular zone and moderate bilateral foraminal narrowing. L4-5: Facet arthropathy and disc bulge. There is a synovial cyst projecting medially from the right facet joint. There is prominent spinal stenosis. The subarticular zones are effaced, especially on the right. Moderate bilateral foraminal narrowing. L5-S1: Facet arthropathy, otherwise unremarkable There is nonspecific edema within the dorsal subcutaneous tissues. Impression : 1. Prominent spinal stenosis at L4-5 which is exacerbated by a synovial cyst on the right. There is effacement of the subarticular zones which could affect the traversing L5 nerve roots, especially on the right. 2. Multiple foramina are moderately narrowed. 3. See findings above for further details. I reviewed MRI lumbar which shows L4-L5 synovial cyst effecting RT nerve. Assessment/Plan: Cam was seen today for follow up. Diagnoses and all orders for this visit: Degeneration of intervertebral disc of lumbar region with discogenic back pain and lower extremity pain - gabapentin (NEURONTIN) 300 mg capsule; Take 1 Capsule (300 mg) by mouth 3 times daily. Lumbar disc herniation with radiculopathy - gabapentin (NEURONTIN) 300 mg capsule; Take 1 Capsule (300 mg) by mouth 3 times daily. 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 On the day of the visit, I spent 20 minutes providing care to this patient including Preparing to see the patient, Obtaining and/or reviewing separately obtained history, Performing a medically appropriate examination and/or evaluation, Counseling and educating the patient/family/caregiver, Ordering medications, tests or procedures, and Documenting clinical information in the medical record. ???If you are reading your progress note, please be aware that this is meant as a communication from physician to physician and there may be terminology that is unfamiliar to you. If you find that isthe case or you disagree with anything in my note, kindly wait until your next appointment to discuss with me. However, understand that changes to the note will only be made if information is factuall y an error. Also, clinical information cannot be removed from the medical records in order to withhold information from insurance companies. In addition, please understand that I am not at liberty todiscuss progress notes written by other providers. documented in this encounter Miscellaneous Notes * Patient Instructions - Adali Hammond PA - 12/26/2024 12:42 PM CDT Images from the original note were not included. Patient Education: documented in this encounter Plan of Treatment Upcoming Encounters Date Type Department Care Team (Late st Contact Info) Description 01/04/2025 6:30 AM CDT Appointment [facility] [address] 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 Office Visit [facility] [address] [place] [address] Adali Hammond PA [address] [place] [address] Scheduled Referrals Name Type Priority Associated Diagnoses Orde r Schedule AMB REFERRAL TO PALLIATIVE CARE Outpatient Referral Routine Diabetic polyneuropathy associated with type 2 diabetes mellitus ([facility]) ESRD on hemodialysis ([facility]) History of non-ST elevation myocardial infarction (NSTEMI) Ordered: 12/26/2024 documented as of this encounter Visit Diagnoses Diagnosis Degeneration of intervertebral disc of lumbar region with discogenic back pain and lower extremity pain- Primary Lumbar disc herniation with radiculopathy Displacement of lumbar intervertebral disc without myelopathy Diabetic polyneuropathy associated with type 2 diabetes mellitus ([facility]) ESRD on hemodialysis ([facility]) End stage renal disease Neuropathy Mononeuritis of unspecified site History of non-ST elevation myocardial infarction (NSTEMI) Old myocardial infarction documented in this encounter Additional Health Concerns Assessment Noted Time PHQ-9 Depression Total Score: 2 10/21/19 25 4:44 PM CDT documented as of this encounter
--- OUTSIDE RECORDS SUMMARY | 2024-12-27 19:56 | XMS_ITS | Encounter Summary ---
Author Organization [facility] Address [address] [place] [address] Care Team Providers Care Appeals Writer Name Role Phone Unavailable Primary Care Provider Unavailabl e Reason for Visit * Reason Comments Chest Pain Encounter Details Date Type Department Care Team (Late st Contact Info) Description 12/27/2024 7:56 PM CDT - 12/27/2024 11:58 PM CDT Emergency [facility] Emergency Medicine [address] [place] [id number] Олег Dailey MD [address] [place] [address] [place] [address] NSTEMI (non-ST elevated myocardial infarction) (CMS/HCC) (Primary Dx) Discharge Disposition: Acute Care Hospital Social History Tobacco Use Types Packs/Day Years Used Date Smoking Tobacco: Former Cigarettes S tarted: 08/21/1975 Cigars Alcohol Use Standard Drinks/Week Comments Not Currently [...] on file 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 Gender Identity Not on file Sexual Orientation Not on file documented as of this encounter Last Filed Vital Signs Vital Sign Reading Time Taken Comments Blood Pressure 151/87 12/27/2024 11:30 PM CDT Pulse 73 12/27/2024 11:30 PM CDT Temperature 36.1 C (97 F) 12/27/2024 7:58 PM CDT Respiratory Rate 11 12/27/2024 11:30 PM CDT Oxygen Saturation 97% 12/27/2024 11:30 PM CDT Inhaled Oxygen Concentration - - Weight 99.9 kg (220 lb 4.8 oz) 12/27/2024 7:58 P M CDT Height 175.3 cm (5' 9 ) 12/27/2024 7:58 PM CDT Body Mass Index 32.53 12/27/2024 7:58 PM CDT documented in this encounter Medications at Time of Discharge isosorbide mononitrate (IMDUR) 30 mg Extended Release 24 hour tablet Take 1 Tablet (30 mg) by mouth daily. 30 Tablet 2 5 amLODIPine (NORVASC) 10 mg tablet Take 1 Tablet by mouth daily. 5 nitroglycerin (NITROSTAT) 0.4 mg Tablet, Sublingual Place 0.4 mg under tongue every 5 minutes as needed for Chest Pain. 5 BD Malaika 2nd Gen Pen Needle 32 gauge x 5/32 Needle Inject 2 Each by subcutaneous injection 3 times daily as needed for Other (See Comment) (check blood sugar). 5 hydrALAZINE (APRESOLINE) 100 mg Tablet tablet Take 100 mg by mouth every 8 hours. gabapentin (NEURONTIN) 300 mg capsuleIndications: Degeneration of intervertebral disc of lumbar region with discogenic back pain and lower extremity pain,Lumbar disc herniation with radiculopathy Take 1 Capsule (300 mg) by mouth 3 times daily. 90 Capsule 3 5 acetaminophen (TYLENOL) 500 mg Capsule Take 1 Capsule (500 mg) by mouth every 6 hours as needed for Pain, Severe or Pain, Moderate. 30 Capsule 5 atorvastatin (LIPITOR) 80 mg tablet Take 80 mg by mouth daily at bedtime. valsartan (DIOVAN) 160 mg tablet Take 160 mg by mouth daily in the morning. insulin aspart U-100 (NovoLOG) 100 unit/mL vial Inject 0-6 Units by subcutaneous injection daily. clopidogrel bisulfate (CLOPIDOGREL ORAL) Take 75 mg by mouth daily. aspirin (ECOTRIN EC) 81 mg Tablet, Delayed Release (E.C.) Take 81 mg by mouth daily. metoprolol tartrate (LOPRESSOR) 50 mg tablet Take 50 mg by mouth 2 times daily. insulin glargine (LANTUS) 100 unit/mL injection Inject 20 Units by subcutaneous injection daily with breakfast. oxyCODONE-acetamino phen (PERCOCET) 5-325 mg tabletIndications:E SRD on hemodialysis (CMS/HCC) Take 1 Tablet by mouth every 4 hours as needed for Pain, Moderate. Max Daily Amount: 6 Tablets 15 Tablet 5 12/29/19 25 hydrALAZINE (APRESOLINE) 50 mg tablet Take 1 Tablet (50 mg) by mouth 3 times daily. 2 tablets 3 times a day. 90 Tablet 5 12/29/19 25 amLODIPine (NORVASC) 5 mg tablet Take 10 mg by mouth daily. 5 12/29/19 25 albuterol sulfate HFA 90 mcg/actuation aerosol inhaler Take 2 Puffs by inhalation every 6 hours as needed. 4 12/29/19 25 documented as of this encounter Progress Notes * Keanu Mejias, PHARMACIST - 12/27/2024 9:15 PM CDT Pharmacy to order, review, and report clinically significant changes in lab per [facility] Anticoagulation Protocol as follows: Orders for dosing changes and follow-up labs will be signed ???Per Protocol?? in [facility]. The name ofthe provider signed on the follow-up orders for cosignature will be assigned as follows: Orders placed by members of the Configuration Management Advisor or Hospitalist physician groups: If the original ordering provider is no longer the attending physician for the patient, responsibility for cosignature of the follow-up medication orders and labs will transfer from the original ordering provider to the current attending physician. Orders placed by any other provider: Responsibility for cosignature of the follow-up medication orders and labs will remain with the original ordering provider of the anticoagulant order. Pharmacy will order appropriate labs as indicated by the [facility] Anticoagulation Monitoring policy located on [facility] intranet, unless already ordered. The medications that will be monitored include (but are not limited to): Low molecular weight heparin, heparin, and fondaparinux Direct Thrombin Inhibiors (argatroban, bivalirudin dabigatran lepirudin) Warfarin Direct oral anticoagulants (rivaroxaban, apixaban, edoxaban) Pharmacy will order labs for patients not on a heparin protocol, warfarin protocol, or anticoagulant protocol. Nursing to order labs required as indicated by those protocols. This policy is in compliance with the [employer] National Patient Safety Goal 3E and authorized by the [facility] Pharmacy and Therapeutics Committee. Cosigned by Олег Dailey MD at 12/28/2024 11:47 AM CDT documented in this encounter ED Notes * Alexandra Lisa RN - 12/27/2024 11:55 PM CDT Report given to [facility] 1. Patient belongings sent with [facility] and patient. Patient transferred to [facility] stretch without difficulty. Iv's patent and nitroglycerin and heparin drips continued with [facility]. * Alexandra Lisa RN - 12/27/2024 11:37 PM CDT [facility] 1 with a 4 minute ETA * Alexandra Lisa RN - 12/27/2024 10:47 PM CDT Spoke with [facility] to arrange air ambulance transport to this patient. Awaiting phone call back. * Nikki Jorge RN - 12/27/2024 8:08 PM CDT Patient presents to ED ambulatory complaining of chest pressure which began approx 1800 tonight. States that he took a total of two nitroglycerine pills while helped to reduce amount of chest pressure/pain however now it is back. Uses cane to ambulate. * Casandra Headley RCP - 12/27/2024 7:59 PM CDT EKG completed. Results given to Dr. Dailey and scanned into [facility]. * Олег Dailey MD - 12/27/2024 7:54 PM CDT HISTORY OF PRESENT ILLNESS Cam Trinh, a 64 y.o. male presents to the ED with a Chief Complaint of Chest Pain Subjective This patient is a 64-year-old white male who presents to the emergency department complaining of chest heaviness. He states that started at 6 PM this evening. He did take a nitroglycerin tablet at 630 with no relief and took another 1 at 7 with no relief. Currently rates his pain a 7 out of 10. Does have some mild shortness of breath. No nausea or vomiting. No diaphoresis. Pain does radiate to the left neck and shoulder. Patient does have a history of coronary artery disease. He had 2 stents placed in June of this year as at [facility]. He also has end-stage renal disease and is on hemodialysis. He has a history of diabetes, congestive heart failure and myocardial infarction. REVIEW OF SYSTEMS Review of Systems Constitutional: Negative for appetite change, chills, diaphoresis, fatigue and fever. HENT: Negative for congestion, ear pain, postnasal drip, rhinorrhea, sinus pressure and sore throat. Eyes: Negative for pain and visual disturbance. Respiratory: Positive for shortness of breath. Negative for cough, chest tightness and wheezing. Cardiovascular: Positive for chest pain. Negative for palpitations and leg swelling. Gastrointestinal: Negative for abdominal distention, abdominal pain, blood in stool, constipation, diarrhea, nausea and vomiting. Genitourinary: Negative for decreased urine volume, difficulty urinating, dysuria, flank pain, frequency, hematuria, testicular pain and urgency. Musculoskeletal: Negative for arthralgias, back pain, joint swelling, myalgias, neck pain and neck stiffness. Skin: Negative for rash. Neurological: Negative for dizziness, seizures, syncope, speech difficulty, weakness, light-headedness, numbness and headaches. Hematological: Negative for adenopathy. Psychiatric/Behavioral: Negative for behavioral problems, confusion, decreased concentration, dysphoric mood, self-injury, sleep disturbance and suicidal ideas. The patient is not nervous/anxious. All other systems reviewed and are negative. PAST MEDICAL HISTORY REVIEWED MEDICAL: Patient has a past medical history of Calculus of kidney, Congestive heart failure (CMS/HCC), Coronary artery disease, CRI (chronic renal insufficiency), Diabetes mellitus (CMS/HCC), Difficult intravenous access, GERD (gastroesophageal reflux disease), Hyperlipidemia, Hypertension, Myocardial infarction ([facility]/HCC) (2019), Obstructive sleep apnea, Stroke ([facility]), and TIA (transient ischemic attack). SURGICAL: Patient has a past surgical history that includes knee replacement (Right) and pr crtj arven fstl xcp dir jeni cotter nonautog grf (Left, 11/05/2024). FAMILY: Patient's family history includes Heart Disease in his maternal grandfather, maternal grandmother, and mother; Kidney Disease in his father. SOCIAL: reports that he has quit smoking. His smoking use included cigarettes and cigars. He started smoking about 49 years ago. He does not have any smokeless tobacco history on file. He reports that he does not currently use alcohol. He reports that he does not currently use drugs after having used the following drugs: Marijuana. No history on file. Social History Other Topics Concern Not on file ALLERGIES Patient has no known allergies. HOME MEDICATIONS Patient's Home Medications Current Home Medications ACETAMINOPHEN (TYLENOL) 500 MG CAPSULE ALBUTEROL SULFATE HFA 90 MCG/ACTUATION AEROSOL INHALER AMLODIPINE (NORVASC) 5 MG TABLET ASPIRIN (ECOTRIN EC) 81 MG TABLET, DELAYED RELEASE (E.C.) ATORVASTATIN (LIPITOR) 80 MG TABLET CLOPIDOGREL BISULFATE (CLOPIDOGREL ORAL) FUROSEMIDE (LASIX) 40 MG TABLET GABAPENTIN (NEURONTIN) 300 MG CAPSULE HYDRALAZINE (APRESOLINE) 50 MG TABLET INSULIN ASPART U-100 (NOVOLOG) 100 UNIT/ML VIAL INSULIN GLARGINE (LANTUS) 100 UNIT/ML INJECTION METOPROLOL TARTRATE (LOPRESSOR) 50 MG TABLET OXYCODONE-ACETAMINOPHEN (PERCOCET) 5-325 MG TABLET VALSARTAN (DIOVAN) 160 MG TABLET Medications Modified during this Encounter No medications on file Medications Discontinued during this Encounter No medications on file Objective PHYSICAL EXAM INITIAL VS BP: (!) 156/65 (12/27/241957), Heart Rate: 75 bpm (12/27/241957), Resp: 17 (12/27/241957), Pulse: 78 (12/27/242014), Temp: 97 ??F (36.1 ??C) (12/27/241957), Temp src: Temporal (12/27/241957), SpO2: 98 % (12/27/241957), Height: 5' 9 (175.3 cm) (12/27/241957), Weight: 99.9 kg (220 lb 4.8 oz)(12/27/241957), BMI (Calculated): (!) 32.51 (12/27/241957) No LMP for male patient. Physical Exam Vitals and nursing note reviewed. Constitutional: General: He is not in acute distress. Appearance: Normal appearance. He is not ill-appearing. HENT: Head: Normocephalic and atraumatic. Eyes: Conjunctiva/sclera: Conjunctivae normal. Pupils: Pupils are equal, round, and reactive to light. Cardiovascular: Rate and Rhythm: Normal rate and regular rhythm. Pulmonary: Effort: Pulmonary effort is normal. No respiratory distress. Breath sounds: Normal breath sounds. Abdominal: General: Abdomen is flat. Bowel sounds are normal. Palpations: Abdomen is soft. Tenderness: There is no abdominal tenderness. Musculoskeletal: General: No tenderness. Normal range of motion. Skin: General: Skin is warm and dry. Neurological: General: No focal deficit present. Mental Status: He is alert and oriented to person, place, and time. Psychiatric: Mood and Affect: Mood normal. Behavior: Behavior normal. DIAGNOSTICS LAB: TROPONIN BASELINE, 5TH GEN - Abnormal Result Value TROPONIN T, BASELINE 5TH GEN 182 (*) TROPONIN 2 HR, 5TH GEN - Abnormal TROPONIN T, 2 HR 5TH GEN 171 (*) DELTA 2HR TROPONIN T % -6 CBC WITH DIFFERENTIAL - Abnormal WBC 4.6 RBC 3.71 (*) HEMOGLOBIN 10.7 (*) HEMATOCRIT 32.2 (*) MCV 86.8 MCH 28.8 MCHC 33.2 RDW 15.4 (*) RDW-STDEV 48.6 PLATELETS 232 MPV 9.3 (*) NEUTROPHILS 48 LYMPHOCYTES 39 MONOCYTES 10 EOSINOPHILS 1 BASOPHILS 1 IMMATURE GRANULOCYTES 0 NEUTROPHIL ABSOLUTE 2.19 LYMPHOCYTE ABSOLUTE 1.79 MONOCYTE ABSOLUTE 0.47 EOSINOPHIL ABSOLUTE 0.03 (*) BASOPHILS ABSOLUTE 0.06 IMMATURE GRANULOCYTES ABSOLUTE 0.01 COMPREHENSIVE METABOLIC PANEL - Abnormal SODIUM 138 POTASSIUM 4.1 CHLORIDE 98 CO2 28 CALCIUM 9.3 BUN 36 (*) CREATININE 4.33 (*) GLUCOSE 206 (*) TOTAL PROTEIN 7.2 ALBUMIN 4.1 BILIRUBIN TOTAL 0.4 ALKALINE PHOSPHATASE 107 AST 18 ALT 12 GFR 15 (*) ANION GAP 12 PTT - Abnormal PTT 35.6 (*) EXTRA TUBE EXTRA TUBE (BLUE) BRAIN NATRIURETIC PEPTIDE, BNP OR PROBNP CBC WITHOUT DIFFERENTIAL RADIOLOGY: XR CHEST PA OR AP 1 VW Radiologist Impression IMPRESSION: Nonspecific left basilar opacity which could reflect atelectasis and/or infiltrate. Small left pleural effusion. EKG: PROCEDURES Procedures MEDICAL DECISION MAKING AND PLAN OF CARE Medical Decision Making EKG revealed normal sinus rhythm with occasional PVC. Some ST elevation in V2 but no other contiguous leads. Chest x-ray reveals a left basilar opacity could be infiltrate versus atelectasis. I favoratelectasis since the patient has not had a cough or fever. He also has a small left pleural effusion. CBC reveals a hemoglobin of 10.7. CMP reveals a BUN of 36 creatinine of 4.3. Blood sugar was 206. Baseline troponin was 182 with a 2-hour level of 171. Patient's prior troponins are typically in the 70 range. Patient was given morphine initially for his pain. Then he was placed on a nitro drip. We also gave him a bolus of heparin and placed him on a heparin infusion. I initially contacted [facility] since that is where his operator control room is however they cannot accept chest pain patients because their Answering Service Telephone Operator is currently down. I then contacted [facility] and spoke to Dr. Esparza, ER physician and he has accepted the patient for transfer. Patient will be transferred as soon as we have transportation. He is stable. Amount and/or Complexity of Data Reviewed Labs: ordered. Radiology: ordered. ECG/medicine tests: ordered. Risk Prescription drug management. Clinical Scoring & Consults Medications Administered During the ED Stay from 12/27/20241954 to 12/27/20242215 Date/Time Order Dose Route Action 12/27/20242014 CDT aspirin (SHILA CHEWABLE) chewable tablet 324 mg 324 mg Oral Not Given 12/27/20242120 CDT morphine 4 mg/mL injection 4 mg 4 mg IV Given 12/27/20242119 CDT ondansetron (ZOFRAN) 4 mg/2 mL injection 4 mg 4 mg IV Given 12/27/20242199 CDT nitroglycerin 50 mg in D5W 250 mL infusion 20 mcg/min IV Rate Change 12/27/20242134 CDT nitroglycerin 50 mg in D5W 250 mL infusion 10 mcg/min IV New Bag 12/27/20242125 CDT heparin injection 4,000 Units 4,000 Units IV Given 12/27/20242134 CDT heparin in 0.45% NaCl 25,000 unit/250 mL infusion 10 Units/kg/hr IV New Bag . New Prescriptions for this Encounter LAST VS BP: (!) 152/64 (12/27/242099), Heart Rate: 78 bpm (12/27/242099), Resp: 19 (12/27/242099), Pulse: 78 (12/27/242099), Temp: 97 ??F (36.1 ??C) (12/27/241957), Temp src: Temporal (12/27/241957), SpO2: 100 % (12/27/242099) CLINICAL IMPRESSION Final diagnoses: [I21.4] NSTEMI (non-ST elevated myocardial infarction) (CMS/[facility]) (Primary) DISPOSITION, EDUCATION AND MEDICATION RECONCILIATION Medications reconciled. See after visit summary for patient education on discharged patients. ED Disposition ED Disposition Transfer Condition Stable User Олег Dailey MD Date/Time Ruba Dec 27, 2024 10:14 PM Comment -- ATTESTATION STATEMENTS documented in this encounter Miscellaneous Notes * Treatment Plan - Kenau Mejias, PHARMACIST - 12/27/2024 9:16 PM CDT [facility] Adult Heparin PTT Monitoring Protocol [facility] ORDERS ARE ENTERED ???PER PROTOCOL?? Nursing Orders: Heparin must be hung as primary IV on dedicated IV site, unless discussed with physician and exception is authorized Obtain an actual weight, not stated weight, for pharmacy verification Do not give IM injections unless credentialed prescriber is alerted and chooses to proceed. Exception: Patient may receive vaccinations without contacting provider. RN to hold pressure to site post administration for 2 minutes Call credentialed prescriber for any evidence of hematoma, decrease in hemoglobin of 2 gram/dL or more, or with any acute change in mental status When programming the smart pump, refer to weight in eMAR order (this may not correlate with patient's current weight) Verify weight in eMAR order matches weight in smartpump Enter actual volume infused into flowsheet directly from smart pump upon clearing the pump volume Laboratory Orders: Baseline: PTT and CBC without differential if not obtained in the last 72 hours before starting IV Heparin Infusion monitoring: Timed PTT every 6 hours after the initiation of infusion, change in rate or bolus until 2 consecutive PTT are in therapeutic range PTT monitoring should be used instead of Anti-xa monitoring for the following: Facility only has PTT lab monitoring capabilities Patients who have received a Xa inhibitor Direct Oral Anticoagulant (DOAC) medication (rivaroxaban,apixaban, edoxaban), therapeutic Enoxaparin, or Fondaparinux within the last 48 hours Daily once stable: PTT daily while on heparin once stable Minimum every 3 days: CBC without differential drawn at minimum of every 3 days while on heparin Medication Orders: Discontinue ALL other orders for subcutaneous, oral or IV anticoagulants, for example but not limited to: enoxaparin (LOVENOX), or fondaparinux (ARIXTRA) or oral anticoagulants dabigatran (PRADAXA), apixaban (ELIQUIS), edoxaban (SAVAYSA) or rivaroxaban (XARELTO). This protocol is not recommended for use with continuous alteplase infusions. Contact provider for additional orders. Pharmacist to confirm indication to ensure correct protocol table is followed, if unclear from the physician order or via chart review Pharmacist to verify heparin rate changes based on lab results in the protocol tables below. Pharmacist may update the order and MAR to match the current infusion rate. Dosing Weight: Obtain using a scale, NOT stated weight order-specific heparin dosing weight to be calculated by pharmacist. If weight <= 100 kg, ACTUAL body weight will be used to perform dose calculations If weight exceeds 100 kg, an ADJUSTED body weight will be used to perform dose calculations Initial dosing weight to be used for heparin infusion for the duration of therapy. Caution should be used by the RN to observe that this is the weight programmed in the smart pump. DVT/PE Heparin Infusion (usual indication for VTE: PE/DVT) Per provider order - bolus or no bolus Adjusted body weight used for pts >100 kg Initial Bolus Dose 80 units/kg (MAX 10,000 units) Initial Infusion 18 units/kg/hour PTT Bolus (if boluses are authorized by physician per infusion order) Hold Infusion IV infusion Change Next Level Less than 45 60 units/kg 0 min Increase heparin dose by 3 units/kg/hr 6 hours 45-54 30 units/kg 0 min Increase heparin dose by 2 units/kg/hr 6 hours 54.1-93 NO CHANGE Every 6 hours x 2 then every AM 93.1-103 none 0 min Decrease heparin dose by 1 units/kg/hr 6 hours 103.1-112 none 30 min Decrease heparin dose by 2 units/kg/hr 6 hours Greater than 112 none 60 min Decrease heparin dose by 3 units/kg/hr 6 hours Cardiac Heparin Infusion (usual indication: Atrial fibrillation, mechanical valves, ACS, high bleedrisk) Per provider order - bolus or no bolus Adjusted body weight used for pts >100 kg Initial Bolus Dose Atrial fibrillation, mechanical valves, high bleed risk: 60 units/kg (MAX 7500 units) ACS: 60 units/kg (MAX 4000 units) Initial Infusion Atrial fibrillation, mechanical valves, high bleed risk: 15 units/kg/hour ACS: 12 units/kg/hour (MAX 1000 units/hour) PTT Bolus (if boluses are authorized by physician per infusion order) Hold Infusion IV infusion Change Next Level Less than 45 30 units/kg 0 min Increase heparin dose by 2 units/kg/hr 6 hours 45-54 15 units/kg 0 min Increase heparin dose by 1 units/kg/hr 6 hours 54.1-84 NO CHANGE Every 6 hours x 2 then every AM 84.1-93 none 0 min Decrease heparin dose by 1 units/kg/hr 6 hours 93.1-112 none 30 min Decrease heparin dose by 2 units/kg/hr 6 hours Greater than 112 none 60 min Decrease heparin dose by 3 units/kg/hr 6 hours documented in this encounter Plan of Treatment Upcoming Encounters Date Type Department Care Team (Late st Contact Info) Description 01/04/2025 6:30 AM CDT Appointment [facility] Tammy Montoya [address] [place] [address] 01/15/2025 1:30 PM CDT Office Visit [facility] Vascular Surgery [place] [address] [place] [address] Davion Mcconnell MD [address] [place] [address] Esme Vail MD [address] [place] [address] 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/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 Office Visit [facility] Neurosurgery [address] [place] [address] Adali Hammond PA [address] [place] [address] documented as of this encounter Procedures Procedure Name Priority Date/Time Associated Diagnosis Comments TROPONIN 2 HR, 5TH GEN Timed Study 12/27/2024 9:36 PM CDT XR CHEST PA OR AP 1 VW Stat 12/27/2024 8:28 PM CDT EXTRA TUBE (BLUE) Stat 12/27/2024 8:0 5 PM CDT EXTRA TUBE Stat 12/27/2024 8:05 PM CDT TROPONIN BASELINE, 5TH GEN Stat 12/27/2024 8:05 PM CDT CBC WITH DIFFERENTIAL Stat 12/27/2024 8:05 PM CDT PTT Stat 12/27/2024 8:05 PM CDT BRAIN NATRIURETIC PEPTIDE, BNP OR PROBNP Stat 12/27/2024 8:05 PM CDT COMPREHENSIVE METABOLIC PANEL Stat 12/27/2024 8:05 PM CDT documented in this encounter Results * (ABNORMAL) TROPONIN 2 HR, 5TH GEN (12/27/2024 9:36 PM CDT) TROPONIN T, 2 HR 5TH GEN 171(HH) <=15 ng/L 12/27/2024 10:02 PM CDT [facility] DELTA 2HR TROPONIN T % -6 See Interp. % 12/27/2024 10:02 PM CDT [facility] Blood BLOOD SPECIMEN / Unknown Venipuncture / Unknown 12/27/2024 9:36 PM CDT 12/27/2024 9:40 PM CDT Narrative [facility] - 12/27/2024 10:02 PM CDT Troponin elevated. Delay in collection of timed specimen beyond recommended collection interval. Results must be interpreted in clinical context. Delta not changing. us Олег Dailey MD CHEMISTRY ORDERABLES Fin al Result [facility] CLIA # [id number] [address] [place] [id number] * XR CHEST PA OR AP 1 VW (12/27/2024 8:28 PM CDT) Anatomical Region Laterality Modality Chest Computed Radiogr aphy 12/27/2024 8:28 PM CDT Impressions 12/27/2024 8:36 PM CDT IMPRESSION: Nonspecific left basilar opacity which could reflect atelectasis and/or infiltrate. Small left pleural effusion. Narrative 12/27/2024 8:36 PM CDT Exam: XR CHEST PA OR AP 1 VW Date/Time of Exam: 12/27/2024 8:28 PM Reason For Exam: Chest Pain. Diagnosis: See Reason for Exam. Comparison: 10/20/2024. Findings: A dialysis catheter is present terminating in the distribution of the cavoatrial junction. The cardiac silhouette is on the upper limits of normal in size. There is a small suspected left pleural effusion. There is nonspecific left basilar opacity which could reflect atelectasis and/or infiltrate. There is no appreciable pneumothorax. The osseous structures appear grossly intact. Procedure Note Kalpesh Dixon, DO - 12/27/2024 Exam: XR CHEST PA OR AP 1 VW Date/Time of Exam: 12/27/2024 8:28 PM Reason For Exam: Chest Pain. Diagnosis: See Reason for Exam. Comparison: 10/20/2024. Findings: A dialysis catheter is present terminating in the distribution of the cavoatrial junction. The cardiac silhouette is on the upper limits of normal in size. There is a small suspected left pleural effusion. There is nonspecific left basilar opacity which could reflect atelectasis and/or infiltrate. There is no appreciable pneumothorax. The osseous structures appear grossly intact. IMPRESSION: Nonspecific left basilar opacity which could reflect atelectasis and/or infiltrate. Small left pleural effusion. Олег Dailey MD DIAGNOSTIC IMAGING ORDER PAULA Final Result * (ABNORMAL) PTT (12/27/2024 8:05 PM CDT) PTT 35.6(H) 25.1 - 35.4 seconds 12/27/2024 10:01 PM CDT [facility] Blood BLOOD SPECIMEN / Unknown Venipuncture / Unknown 12/27/2024 8:05 PM CDT 12/27/2024 9:38 PM CDT Олег Dailey MD HEMATOLOGY ORDERABLES Fi nal Result [facility] CLIA # [id number] [address] [place] [phone] * (ABNORMAL) BRAIN NATRIURETIC PEPTIDE, BNP OR PROBNP (12/27/2024 8:05 PM CDT) PROBNP, N TERMINAL 15,927(H) 0 - 125 pg/mL 12/27/2024 11:07 PM CDT [facility] Comment: INTERPRETIVE COMMENT based on diagnosis: Diagnostic NT pro-BNP cutoffs for Heart Failure in the absence of renal failure is suggested for the following ranges <75 years: <125 pg/mL >=75 years: <450 pg/mL Exclusionary rule out cut-point for Acute Decompensated Heart Failure(ADHF) All ages: <300 pg/mL Diagnostic NT pro-BNP cutoffs for Acute Decompensated Heart Failure(ADHF) in the absence of renal failure is suggested for the following ages <50 years: > 450 pg/mL 50-75 years: > 900 pg/mL >75 years: >1800 pg/mL Blood BLOOD SPECIMEN / Unknown Venipuncture / Unknown 12/27/2024 8:05 PM CDT 12/27/2024 8:11 PM CDT Олег Dailey MD CHEMISTRY ORDERABLES Fin al Result [facility] CLIA # [id number] [address] [place] [phone] * EXTRA TUBE (BLUE) (12/27/2024 8:05 PM CDT) Blood BLOOD SPECIMEN / Unknown Venipuncture / Unknown 12/27/2024 8:05 PM CDT 12/27/2024 8:11 PM CDT Олег Dailey MD HEMATOLOGY ORDERABLES Fi nal Result [facility] CLIA # [id number] [address] [place] [address] * (ABNORMAL) COMPREHENSIVE METABOLIC PANEL (12/27/2024 8:05 PM CDT) SODIUM 138 136 - 145 mmol/L 12/27/2024 8:37 PM [facility] POTASSIUM 4.1 3.5 - 5.1 mmol/L 12/27/2024 8:37 PM [facility] CHLORIDE 98 98 - 107 mmol/L 12/27/2024 8:37 PM [facility] CO2 28 22 - 29 mmol/L 12/27/2024 8:37 PM [facility] CALCIUM 9.3 8.8 - 10.2 mg/dL 12/27/2024 8:37 PM [facility] BUN 36(H) 8 - 23 mg/dL 12/27/2024 8:37 PM [facility] CREATININE 4.33(H) 0.67 - 1.17 mg/dL 12/27/2024 8:37 PM [facility] GLUCOSE 206(H) 74 - 99 mg/dL 12/27/2024 8:37 PM [facility] TOTAL PROTEIN 7.2 6.6 - 8.7 g/dL 12/27/2024 8:37 PM [facility] ALBUMIN 4.1 3.5 - 5.2 g/dL 12/27/2024 8:37 PM [facility] BILIRUBIN TOTAL 0.4 0.0 - 1.2 mg/dL 12/27/2024 8:37 PM [facility] ALKALINE PHOSPHATASE 107 40 - 129 U/L 12/27/2024 8:37 PM [facility] AST 18 0 - 50 U/L 12/27/2024 8:37 PM [facility] ALT 12 0 - 50 U/L 12/27/2024 8:37 PM [facility] GFR 15(L) >=60 mL/min/1.7 3 sq meter 12/27/2024 8:37 PM [facility] Comment:eGFR calculated with 2020 CKD-EPI equation. Vegetarian diet, extremely high or low muscle mass, and may affect results. Cystatin C with Glomerular Filtration Rate is a suitable alternative for these patients. ANION GAP 12 5 - 20 mmol/L 12/27/2024 8:37 PM [facility] Blood BLOOD SPECIMEN / Unknown Venipuncture / Unknown 12/27/2024 8:05 PM CDT 12/27/2024 8:11 PM CDT us Олег Dailey MD CHEMISTRY ORDERABLES Fin al Result [facility] CLIA # [id number] [address] [place] [phone] * (ABNORMAL) CBC WITH DIFFERENTIAL (12/27/2024 8:05 PM CDT) WBC 4.6 4.2 - 9.1 K/uL 12/27/2024 8:14 PM [facility] RBC 3.71(L) 4.63 - 6.08 M/uL 12/27/2024 8:14 PM [facility] HEMOGLOBIN 10.7(L) 13.7 - 17.5 g/dL 12/27/2024 8:14 PM [facility] HEMATOCRIT 32.2(L) 40.1 - 51.0 % 12/27/2024 8:14 PM [facility] MCV 86.8 79.0 - 92.2 fL 12/27/2024 8:14 PM [facility] MCH 28.8 25.7 - 32.2 pg 12/27/2024 8:14 PM [facility] MCHC 33.2 32.3 - 36.5 g/dL 12/27/2024 8:14 PM [facility] RDW 15.4(H) 11.0 - 14.5 % 12/27/2024 8:14 PM [facility] RDW-STDEV 48.6 36.9 - 56.9 fL 12/27/2024 8:14 PM [facility] PLATELETS 232 130 - 400 K/uL 12/27/2024 8:14 PM [facility] MPV 9.3(L) 10.0 - 14.8 fL 12/27/2024 8:14 PM [facility] NEUTROPHILS 48 34 - 68 % 12/27/2024 8:14 PM [facility] LYMPHOCYTES 39 22 - 53 % 12/27/2024 8:14 PM [facility] MONOCYTES 10 5 - 12 % 12/27/2024 8:14 PM [facility] EOSINOPHILS 1 1 - 7 % 12/27/2024 8:14 PM [facility] BASOPHILS 1 0 - 1 % 12/27/2024 8:14 PM [facility] IMMATURE GRANULOCYTES 0 % 12/27/2024 8:14 PM [facility] NEUTROPHIL ABSOLUTE 2.19 1.78 - 5.38 K/uL 12/27/2024 8:14 PM [facility] LYMPHOCYTE ABSOLUTE 1.79 1.20 - 3.40 K/uL 12/27/2024 8:14 PM [facility] MONOCYTE ABSOLUTE 0.47 0.30 - 0.82 K/uL 12/27/2024 8:14 PM [facility] EOSINOPHIL ABSOLUTE 0.03(L) 0.04 - 0.54 K/uL 12/27/2024 8:14 PM [facility] BASOPHILS ABSOLUTE 0.06 0.01 - 0.08 K/uL 12/27/2024 8:14 PM [facility] IMMATURE GRANULOCYTES ABSOLUTE 0.01 K/uL 12/27/2024 8:14 PM [facility] Blood BLOOD SPECIMEN / Unknown Venipuncture / Unknown 12/27/2024 8:05 PM CDT 12/27/2024 8:10 PM CDT us Олег Dailey MD HEMATOLOGY ORDERABLES Fi nal Result [facility] CLIA # [id number] [address] [place] [address]48 * (ABNORMAL) TROPONIN BASELINE, 5TH GEN (12/27/2024 8:05 PM CDT) TROPONIN T, BASELINE 5TH GEN 182(HH) <=15 ng/L 12/27/2024 8:37 PM CDT [facility] Blood BLOOD SPECIMEN / Unknown Venipuncture / Unknown 12/27/2024 8:05 PM CDT 12/27/2024 8:11 PM CDT Narrative [facility] - 12/27/2024 8:37 PM CDT Troponin elevated. us Олег Dailey MD CHEMISTRY ORDERABLES Fin al Result [facility] CLIA # [id number] [address] [place] [address] documented in this encounter Visit Diagnoses Diagnosis NSTEMI (non-ST elevated myocardial infarction) ([facility])- Primary Acute myocardial infarction, subendocardial infarction, episode of care unspecified documented in this encounter Administered Medications Inactive Administered Medications - up to 3 most recent administrations Medication Order MAR Action Action Date Dose Rate Site heparin in 0.45% NaCl 25,000 unit/250 mL infusion 10 Units/kg/hr 99.9 kg (9.99 mL/hr, rounded to 10 mL/hr), IV, TITRATE, Starting on Ruba 12/27/24 at 2115, Until Tue12/28/24 at 0052, Indication: ACS/STEMI, Dosing by: PER PROTOCOL: Delegate to facility protocol per indication, Re-bolus within Protocol? No, titrate infusion ONLY New Bag 12/27/2024 9:35 PM CDT 10 Units/kg/hr 10 mL/hr heparin injection 4,000 Units 4,000 Units, IV, ONE TIME ONLY, 1 dose, On Ruba 12/27/24 at 2115, StatIndications:ACS/STEM I Given 12/27/2024 9:26 PM CDT 4,000 Units morphine 4 mg/mL injection 4 mg 4 mg, IV, ONE TIME ONLY, 1 dose, On Ruba 12/27/24 at 2045, Routine Given 12/27/2024 9:21 PM CDT 4 mg nitroglycerin 50 mg in D5W 250 mL infusion 0-50 mcg/min (0-15 mL/hr), IV, TITRATE, Starting on Ruba 12/27/24 at 2114, Until Tue12/28/24 at 51, Should this infusion be titrated? Yes, Initial infusion dose? 10 mcg/min, Titration Dose Increment? 10 mcg/min, Titration Interval? 10 minutes, Goal Type? Chest Pain Free Rate Change 12/27/2024 10:00 PM CDT 20 mcg/min 6 mL/hr New Bag 12/27/2024 9:35 PM CDT 10 mcg/min 3 mL/hr ondansetron (ZOFRAN) 4 mg/2 mL injection 4 mg 4 mg, IV, ONE TIME ONLY, 1 dose, On Ruba 12/27/24 at 2044, Stat Given 12/27/2024 9:20 PM CDT 4 mg sodium chloride flush injection 10 mL 10 mL, IV, SEE ADMIN INSTRUCTIONS, Starting on Ruba 12/27/24 at 2007, Until Tue12/28/24 at 51, Routine documented in this encounter Active and Recently Administered Medications Times are shown in CDT. Scheduled Medication Order 12/25/2024 12/26/2024 12/27/2024 heparin injection 4,000 Units (COMPLETED) 4,000 Units, IV, ONE TIME ONLY, 1 dose, On Ruba 12/27/24 at 2114, Stat 2125 (Given - Provid er: Nikki Jorge, TRACI) morphine 4 mg/mL injection 4 mg (COMPLETED) 4 mg, IV, ONE TIME ONLY, 1 dose, On Ruba 12/27/24 at 2044, Routine 2120 (Given - Provid er: Nikki Jorge, RN) ondansetron (ZOFRAN) 4 mg/2 mL injection 4 mg (COMPLETED) 4 mg, IV, ONE TIME ONLY, 1 dose, On Ruba 12/27/24 at 2044, Stat 2119 (Given - Provid er: Nikki Jorge, TRACI) sodium chloride flush injection 10 mL 10 mL, IV, SEE ADMIN INSTRUCTIONS, Starting on Ruba 12/27/24 at 2007, Until Tue12/28/24 at 51, Routine Continuous Medication Order 12/25/2024 12/26/2024 12/27/2024 heparin in 0.45% NaCl 25,000 unit/250 mL infusion 10 Units/kg/hr 99.9 kg (9.99 mL/hr, rounded to 10 mL/hr), IV, TITRATE, Starting on Ruba 12/27/24 at 2114, Until Tue12/28/24 at 0052, Indication: ACS/STEMI, Dosing by: PER PROTOCOL: Delegate to facility protocol per indication, Re-bolus within Protocol? No, titrate infusion ONLY 2134 (New Bag - Prov ider: Nikki Jorge RN)2356 (Stopped - Provider: Alexandra Lisa RN - Comment: continued with [facility] 1) nitroglycerin 50 mg in D5W 250 mL infusion 0-50 mcg/min (0-15 mL/hr), IV, TITRATE, Starting on Ruba 12/27/24 at 2114, Until Tue12/28/24 at 005, Should this infusion be titrated? Yes, Initial infusion dose? 10 mcg/min, Titration Dose Increment? 10 mcg/min, Titration Interval? 10 minutes, Goal Type? Chest Pain Free 2134 (New Bag - Prov ider: Nikki Jorge RN)2199 (Rate Change - Provider: Nikki Jorge RN)2357 (Stopped - Provider: Alexandra Lisa RN - Comment: continued with [facility] 1) documented in this encounter Additional Health Concerns Assessment Noted Time PHQ-9 Depression Total Score: 2 10/21/19 25 4:44 PM CDT documented as of this encounter
--- OUTSIDE RECORDS SUMMARY | 2024-12-28 00:45 | XMS_ITS | Encounter Summary ---
[facility] Address [address] [place] [address] Care Team Providers Care Health Analyst Name Role Phone Unavailable Primary Care Provider Unavailabl e Encounter Details Date Type Department Care Team (Latest Contact Info) Description 12/28/2024 12:45 AM CDT - 12/28/2024 11:59 PM CDT Hospital Encounter [facility] [place] [address] [place] [id number] Ambulance, [facility] [address] 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 documented as of this encounter Plan of Treatment Upcoming Encounters Date Type Department Care Team (Late st Contact Info) Description 01/04/2025 6:30 AM CDT Appointment Carlita Montoya [facility] [place] [address] 01/15/2025 1:30 PM CDT Office Visit [facility] V[facility] [place] [address] [place] [address] Davion Mcconnell MD [address] [place] [address] Esme Vail MD [address] [place] [address] 08/28/2025 1:00 PM EXAMINATION PROCTOR Office Visit [facility] [address] [place] [address] Adali Hammond, SUSAN [address] [place] [address] documented as of this encounter Visit Diagnoses Not on filedocumented in this encounter
--- OUTSIDE RECORDS SUMMARY | 2024-12-28 00:52 | XMS_ITS | Encounter Summary ---
Author Organization [facility] Address [address] [place] [address] Care Team Providers Care Tub Wash Operator Name Role Phone Unavailable Primary Care Provider Unavailabl e Reason for Referral * Eval and Treat (Routine) - Open Specialty Diagnoses / Procedures Referred By Contact Referred To Contact Cardiac Rehabilitation Diagnoses NSTEMI (non-ST elevated myocardial infarction) ([facility]) S/P PTCA (percutaneous transluminal coronary angioplasty) Nabil Blue MD [address] [facility] [address] [place] [address] Phone: tel:[phone] fax:[phone] [facility] Cardiac Rehabilitation Services [address] [address] [place] [address] Phone: tel: Referral ID Status Reason Start Date Expiration Date Visits Requested Visits Authorized [id number] Open [facility] Department to Schedule 01/01/2025 01/01/2026 36 36 Reason for Visit * Reason Comments Chest Pain * Auth/Cert (Routine) Specialty Diagnoses / Procedures Referred By Nader tolentino Referred To Contact Emergency Medicine Diagnoses NSTEMI [facility] Emergency Department [address] [place] [address] Phone: tel: fax: Referral ID Status Reason Start Date Expiration Date Visits Re quested Visits Authorized [id number] 1 1 Encounter Details Date Type Department Care Team (Latest Contact Info) Description 12/28/2024 12:52 AM CDT - 01/01/2025 4:39 PM CDT Hospital Encounter [facility] 4A Cardiac [address] [place] [address] Richard Esparza MD [address] [place] [address] Luis Alfredo Harris MD [address] [place] [address] Bharati Jarrell MD [address] [place] [address] Phil Verdugo MD [address] [place] [address] NSTEMI (non-ST elevated myocardial infarction) ([facility]) Discharge Disposition: Home or Self Care Social History Tobacco Use Types Packs/Day Years [...] on file Legal 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 Gender Identity Not on file Sexual Orientation Not on file documented as of this encounter Last Filed Vital Signs Vital Sign Reading Time Taken Comments Blood Pressure 186/71 01/01/2025 2:20 PM CDT Pulse 70 01/01/2025 2:20 PM CDT Temperature 36.1 C (96.9 F) 01/01/2025 2:20 PM CDT Respiratory Rate 22 01/01/2025 2:20 PM CDT Oxygen Saturation 97% 01/01/2025 2:20 PM CDT Inhaled Oxygen Concentration - - Weight 100.3 kg (221 lb 2 oz) 01/01/2025 5:26 AM CDT Height 175.3 cm (5' 9 ) 12/31/2024 4:02 AM CDT Body Mass Index 32.65 12/31/2024 4:02 AM CDT documented in this encounter Discharge Instructions * Discharge Instructions* Vangie Malhotra RN - 01/01/2025 12:33 PM CDT Cardiopulmonary Rehab Outpatient Referral Information: As part of your ongoing cardiac care, you are being referred to outpatient cardiac rehab. You will be contacted by the facility for appointment date and time. If you do not hear from the facility in a timely manner, please feel free to contact them at the phone number listed below. Cardiopulmonary Rehab Facility: [address] [place] [address] MEDICAL DISCHARGE RECORD DIET: regular and Diabetic diet (specify calories / restrictions) SIGNS AND SYMPTOMS TO REPORT: Contact your health care provider if you experience any of the following symptoms: increased dizziness or lightheadedness, increase in pain, or increase in redness, swelling, or warmth of incision site. WOUND CARE: For your wound/incision: leave dressing undisturbed and keep wound clean and dry. STOP SMOKING AND/OR DO NOT ALLOW ANYONE TO SMOKE IN YOUR HOUSE OR CAR. If you need help to stop smoking, call or the Health Information Team at [phone] or [phone]. FOLLOW-UP APPOINTMENT: Follow up with cardiology- they should call you.follow up with dialysis * Attachments The following attachments cannot be sent through Care Everywhere. * Cardiac Rehabilitation (Honduran) * Low Sodium Diet (Honduran) * Low Sodium: Reading a Food Label (Honduran) * Heart Failure [facility] (Honduran) * PCI (Percutaneous Coronary Intervention): General Info (Honduran) * Hemodialysis Access: Post op (Honduran) documented in this encounter Medications at Time [...] with breakfast. documented as of this encounter Progress Notes * Vangie Malhotra RN - 01/01/2025 4:09 PM CDT Patient discharge paperwork complete. Teaching sheets, medication list, and prescriptions reviewed.Questions answered. Patient and family verbalized understanding. Patient stable, denies pain. IV d/c'd with cath intact. Telemetry removed. Patient escort via wheelchair to discharge. Home with family. * Phil Verdugo MD - 01/01/2025 11:46 AM CDT Images from the original note were not included. Your life is our life's work [facility] Hospitalist/Hospital Medicine Progress Note LOS: 4 days Room/Bed: [facility]/ Patient name: Ida Morelos Date of : 1960 HOSPITAL COURSE SUMMARY: Ida Morelos, a 64 y.o. male who is admitted for further management of with PHM of T2DM, HTN, HLD, ESRD on HD, CAD status post PCI, CVA without residual deficits, diabetic polyneuropathy, combined systolic and diastolic heart failure, lumbar radiculopathy, GERD who was transferred from [facility] ER to [facility] ED on 12/2024 for further management of chest pain. He presented there with complaints of chest pain radiating to the neck and mid back that started around 6 PM which did not resolve with sublingual nitroglycerin. His initial troponin was at 182 and a2-hour troponin was at 171. He was given heparin bolus and was started on heparin drip. He was alsostarted on nitro drip. They transferred the patient to our ER for further management. On arrival, Vitals significant for slightly elevated blood pressure of 184/74 mmHg. Nitro drip was stopped and Nitropaste was placed. Labs revealed anemia with a hemoglobin of 9.9. Leukopenia with a WBC of 4.1. Troponins trended flatat 182-171-153. Glucose at 208. Heparin drip was continued. Hospitalist was consulted for admission and further management. Spoke with ER physician over the phone and discussed the current ER course. Examined the patient at bedside. He was comfortably sleeping. He reports that around 6 PM while he was resting, he started having sharp pain in the substernal region more on the left side radiating to the neck and into the mid back. He reports that the pain was constant and was also associated withdiaphoresis. Denies any palpitations or shortness of breath. He reports that the pain was similar to his previous episode of TN for which he had 2 stents placed in [facility]. Denies cough, sputum production, fever, chills. He reports that he missed his dialysis session on Tuesday for medical appointment and had a catch-up session on . 12/29: Patient with no further chest pain. Awaiting cardiac catheterization on Tuesday. Blood sugars were elevated earlier however better controlled later in p.m. patient requests if possible to have AVfistula dilation as inpatient which is scheduled on Tuesday; will discuss with vascular surgery. 12/30: Spoke with Dr. Jewell with vascular surgery regarding patient's admission and plan for fistulogram on 01/01; Dr. Rivera will notify Dr. Peace who will follow-up on this tomorrow. Discussed with patient that left heart cath findings/results will also determine timing of fistulogram. Notified laterin p.m. the patient having chest pain relieved by nitroglycerin. EKG with no significant changes, troponin elevated but compared to prior troponin on admission is flat. N.p.o. from midnight for left heart catheterization tomorrow. Patient refused basal insulin overnight however patient remains stable, will continue with SSI 12/31-> awaiting [facility] today 01/01-> patient will undergo fistulogram today Consultants: IP CONSULT TO CARDIAC REHAB IP CONSULT TO NEPHROLOGY IP CONSULT TO CARDIOLOGY IP CONSULT TO CARDIAC REHAB SUBJECTIVE: Patient seen and examined at bedside. No new complaints at time of rounding other than wanting to know if fistulogram can be performed while patient remains admitted. OBJECTIVE: Temp (24hrs), Av.6 ??F (36.4 ??C), Min:97.3 ??F (36.3 ??C), Max:97.9 ??F (36.6 ??C) BP 137/77 (BP Location: Right leg, Patient Position (BP): Supine) Pulse 70 Temp 97.7 ??F (36.5 ??C) (Oral) Resp 18 Ht 5' 9 (1.753 m) Wt 100.3 kg (221 lb 2 oz) SpO2 95% BMI 32.65 kg/m?? Intake/Output Summary (Last 24 hours) at 01/01/2025 1147 Last data filed at 01/01/2025 0529 Gross per 24 hour Intake 500 ml Output 1950 ml Net -1450 ml Last documented weight: Weight: 100.3 kg (221 lb 2 oz) (01/01/25525) EXAM: General: alert, in no distress Neurologic: Grossly normal HEENT: atraumatic, Normocephalic, without obvious abnormality Lungs: clear to auscultation bilaterally, normal respiratory effort Heart: normal rate and regular rhythm, S1 and S2 normal Abdomen: Soft, non-tender. Bowel sounds normal. No masses, no organomegaly. Extremities: extremities normal, atraumatic, no cyanosis or edema Skin: negative LABORATORY: Recent Labs 12/30/24 0512/30/24 2336 12/31/2444101/01/25137 WBC 5.0 4.5* 4.3* 4.1* HGB 10.2* 10.0* 9.8* 9.2* HCT 31.0* 30.6* 29.7* 27.2* PLT 203 209 200 182 Recent Labs 12/30/24 0522 12/31/2444101/01/25137 NA 135* 134* 136 K 4.5 4.6 4.6 CL 98 98 98 CO2 25 24 27 CA 9.0 8.7* 8.3* BUN 49* 62* 31* CREAT 5.55* 6.43* 4.19* GLUCOSE 133* 199* 166* Recent Labs 01/01/25 013 TOTALPROTEIN 5.8* ALBUMIN 3.2* BILITOTAL 0.3 ALKPHOS 88 AST 17 ALT 15 No results for input(s): INR , PT in the last 72 hours. Invalid input(s): PTT Recent Labs 12/30/24 1656 12/30/24 1917 12/30/24 2336 BASETROP 163* -- -- 2HRTROP -- 160* -- 6HRTROP -- -- 160* Diagnostic testing reviewed by me: Medications were reviewed by me. Current Facility-Administered Medications: isosorbide mononitrate (IMDUR) SR 24 hour tablet 30 mg, 30 mg, Oral, daily, Nabil Blue MD, 30 mg at 01/01/25 0910 [COMPLETED] morphine 4 mg/mL injection 4 mg, 4 mg, IV, ONE time only, Zeke Cdi MD, 4 mg at 12/31/24 2110 [DISCONTINUED] fentaNYL PF (SUBLIMAZE) 50 mcg/mL injection, , , ONE time PRN, Nikki Dawson DO, 25 mcg at 12/31/24 1441 [DISCONTINUED] midazolam (VERSED) injection, , , ONE time PRN, Nikki Dawson DO, 2 mg at 12/31/24 1436 [DISCONTINUED] lidocaine 1 % (XYLOCAINE) injection, , , ONE time PRN, Nikki Dawson DO, 5 mL at 12/31/24 1436 [DISCONTINUED] verapamiL (ISOPTIN) 2.5 mg, nitroglycerin in 5 % dextrose (TRIDIL) 200 mcg, sodium chloride 0.9% 3 mL SOLUTION, , , ONE time PRN, Nikki Dawson DO, 5 mL at 12/31/24 1442 [DISCONTINUED] heparin injection, , , ONE time PRN, Nikki Dawson DO, 2,000 Units at 12/31/24 1451 [DISCONTINUED] clopidogreL (PLAVIX) tablet, , , ONE time PRN, Nikki Dawson DO, 600 mg at 12/31/24 1506 [DISCONTINUED] aspirin (SHILA) tablet, , , ONE time PRN, Nikki Dawson DO, 325 mg at 12/31/24 1506 [DISCONTINUED] iopamidoL (ISOVUE-300) 61% injection (drawn from multi-use bulk pack), , , ONE time PRN, Nikki Dawson DO, 65 mL at 12/31/24 1507 heparin in 0.45% NaCl 25,000 unit/250 mL infusion, 17 Units/kg/hr, IV, marcinate, Bharati Jarrell MD, Last Rate: 17 mL/hr at 12/31/24 1027, 17 Units/kg/hr at 12/31/24 1027 sodium chloride flush injection 10 mL, 10 mL, IV, every 12 hours (2 times daily), Luis Alfredo Harris MD, 10 mL at 01/01/25 0913 sodium chloride flush injection 10 mL, 10 mL, IV, see admin instructions, Luis Alfredo Harris MD sodium chloride 0.9 % flush bag 25 mL, 25 mL, IV, see admin instructions, Luis Alfredo Harris MD dextrose 5 % in water 250 mL flush bag 25 mL, 25 mL, IV, see admin instructions, Luis Alfredo Harris MD nitroglycerin (NITROSTAT) tablet 0.4 mg, 0.4 mg, Sublingual, every 5 minutes PRN, Luis Alfredo Harris MD, 0.4 mg at 12/30/24 1632 acetaminophen (TYLENOL) tablet 650 mg, 650 mg, Oral, every 6 hours PRN, Luis Alfredo Harris MD, 650 mg at 12/31/24 1910 naloxone (NARCAN) 0.4 mg/mL injection 0.1-0.4 mg, 0.1-0.4 mg, IV, see admin instructions, Luis Alfredo Harris MD sennosides-docusate sodium (SENNA-S) 8.6-50 mg per tablet 1 Tablet, 1 Tablet, Oral, BID PRN, Luis Alfredo Harris MD atorvastatin (LIPITOR) tablet 80 mg, 80 mg, Oral, daily BEDTIME, Luis Alfredo Harris MD, 80 mg at 12/31/242024 dextrose 5 % - sodium chloride 0.9 % infusion, , IV, see admin instructions, Luis Alfredo Harris MD dextrose 50% (D50) syringe 12.5 Gram, 12.5 Gram, IV, see admin instructions, Luis Alfredo Harris MD dextrose 50% (D50) syringe 25 Gram, 25 Gram, IV, see admin instructions, Luis Alfredo Harris MD glucagon HCL 1 mg/mL injection 1 mg, 1 mg, IM, see admin instructions, Luis Alfredo Harris MD insulin glargine (LANTUS) injection 15 Units, 0.15 Units/kg, subCUT, daily BEDTIME, Luis Alfredo Harris MD insulin lispro (HumaLOG,ADMELOG) injection 0-12 Units, 0-12 Units, subCUT, TID WITH meals, Luis Alfredo Harris MD, 2 Units at 12/30/24 1138 insulin lispro (HumaLOG,ADMELOG) injection 0-6 Units, 0-6 Units, subCUT, daily BEDTIME, Luis Alfredo Harris MD aspirin (ECOTRIN EC) tablet 81 mg, 81 mg, Oral, daily, Luis Alfredo Harris MD, 81 mg at 01/01/25 09 clopidogreL (PLAVIX) tablet 75 mg, 75 mg, Oral, daily, Luis Alfredo Harris MD, 75 mg at 01/01/25 09 amLODIPine (NORVASC) tablet 10 mg, 10 mg, Oral, daily, Luis Alfredo Harris MD, 10 mg at 01/01/25 09 hydrALAZINE (APRESOLINE) tablet 100 mg, 100 mg, Oral, TID, Luis Alfredo Harris MD, 100 mg at 01/01/25 09 metoprolol tartrate (LOPRESSOR) tablet 50 mg, 50 mg, Oral, BID, Luis Alfredo Harris MD, 50 mg at 01/01/25 09 valsartan (DIOVAN) tablet 160 mg, 160 mg, Oral, daily EARLY, Luis Alfredo Harris MD, 160 mg at 01/01/25 05 gabapentin (NEURONTIN) capsule 200 mg, 200 mg, Oral, TID, Luis Alfredo Harris MD, 200 mg at 910 nitroglycerin (NITRO-BID) 2 % topical ointment 1 Inch, 1 Inch, Topical, every 6 hours, Gisela Harris FNP, 1 Inch at 12/31/24 0510 Primary discharge diagnosis: NSTEMI (non-ST elevated myocardial infarction) ([facility]) Other active medical issues also addressed during this admission: Active Hospital Problems Diagnosis Acute chest pain Elevated troponin Chronic anemia ESRD (end stage renal disease) on dialysis ([facility]) Ischemic dilated cardiomyopathy [place] Chronic combined systolic and diastolic CHF (congestive heart failure) [place] ESRD on hemodialysis [place] History of coronary artery stent placement History of stroke without residual deficits NSTEMI (non-ST elevated myocardial infarction) ([facility]) Type 2 diabetes mellitus with hyperglycemia ([facility]) Essential hypertension Diabetic polyneuropathy associated with type 2 diabetes mellitus ([facility]) GERD (gastroesophageal reflux disease) Mixed hyperlipidemia Resolved Hospital Problems No resolved problems to display. ASSESSMENT AND PLAN: Stable angina History of CAD status post PCI -Presented for left-sided chest pain radiating to neck and back accompanied by diaphoresis -EKG showed nonspecific ST segment changes as per my read. -Troponins trended flat. -Has history of CAD with prior h/o PCI and stenting -Currently chest pain-free Plan: -Continue aspirin, Plavix and statin. -Continue heparin drip -Continue nitroglycerin as needed -Telemetry monitoring. -EKG as needed for worsening chest pain -Cardiology evaluated; plans for cardiac catheterization on Tuesday -n.p.o. 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 T2DM -Has history of type 2 diabetes mellitus. 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 -Started on insulin Lantus 15 units at bedtime along with sliding scale -Patient however noted to be refusing basal insulin; will inquire switch to morning dose if patientprefers -Monitor insulin requirement and adjust insulin regimen based on requirements; Chronic combined systolic and diastolic heart failure -Recent 2D echo from 10/21/2024 showed EF of 35 to 40% with grade 2 diastolic dysfunction -On metoprolol tartrate, losartan -Makes very minimal urine. Plan: -Continue metoprolol tartrate and valsartan - Monitor intake and output - Fluid management with dialysis - Low-salt diet and fluid restriction ESRD on HD AV fistula in situ Current access to HD catheter however has an AV fistula which is new to be dilated/had fistulogram on 01/01 -Currently on Tuesday schedule. -Last dialysis session due to missing dialysis on Tuesday patient will undergo fistulogram today Plan: -Continue dialysis. -Nephrology consulted. -Renally dose medications -Notified vascular surgery about patient's admission and if they would like to perform patient's fistulogram scheduled on 01/01 while he is inpatient. On-call for vascular surgery will notify patient'[facility] vascular surgeon Dr. Mcconnell Chronic anemia - Anemia likely in the setting of ESRD. - Monitor hemoglobin - Transfuse if hemoglobin drops less than 7. Code status: Full Code Outpatient follow up: PCP, cardiology, nephrology, vascular surgery Anticipated Disposition Location: Final Discharge Disposition: Home or Self Care Timeframe: 01/02/2025 Criteria: Cardiac catheterization results, vascular surgery decision on timing/setting of fistulogram Patient's understanding of illness: Fair Primary family contact: None on PHI, per [facility] friend Lopez Ruiz [facility] complexity: [] Mild [x] Moderate [] High Phil Verdugo MD 01/01/2025, 11:47 AM * Nabil Blue MD - 01/01/2025 7:30 AM CDT DAILY PROGRESS NOTE CARDIOLOGY 01/01/2025 Ida Morelos is a 64 y.o. male with a history of ESRD on dialysis, diabetes type 2, dyslipidemia, CAD with PCI in [place] in 07/16/2024 reported he had a TN and got 2 stents, ischemic cardiomyopathy LVEF from 10/21/2024 35-40%, mild to moderate aortic regurgitation. The patient presented with chest pain reported a pressure sensation return clinic relieved with nitroglycerin troponins were elevated 181, 171, 153 proBNP 15,927, chest x-ray with no significant vascular congestion. He denied any dyspnea on exertion or significant leg swelling but did report symptoms feeling somewhat similar apart from the chest pressure is new to when he had his heart attack in June 2024. He was admitted and being treated for NSTEMI. EKG normal sinus rhythm with no acute STchanges but did show evidence of prior septal injury SUBJECTIVE: He is doing well with no complaints today no chest pain or shortness of breath. Cardiac catheterization done 12/31/2024 Prox LAD lesion is 90% stenosed. Mid LAD lesion is 30% stenosed. Prox RCA to Mid RCA lesion is 50% stenosed. Prox LAD reduced to 0% stenosed. Significant single vessel CAD with in-stent restenosis treated with coronary lithotripsy and adjuvant balloon angioplasty Echocardiogram done 12/28/2024 Summary and Conclusion: - Left ventricle: The cavity size is normal. Wall thickness is increased in a pattern of mild LVH. Possible mild hypokinesis of the lateral wall. Global systolic function is at the lower limits of normal. The estimated ejection fraction is 50-55%. For Epic reporting: the left ventricular ejection fraction is 50% by visual assessment. Grade I diastolic dysfunction. The longitudinal strain is -17.0% (Normal range is -18 to -25). - Right ventricle: The cavity size is normal. Systolic function is normal. Systolic pressure is within the normal range. - Left atrium: The atrium is mildly dilated. - Mitral valve: The annulus is mildly calcified. Comparison: Compared to the previous study, LV systolic functionhas improved. Prior Study Date: 10/21/2024. Echocardiogram done 10/21/2024 Summary and Conclusion: - Left ventricle: The cavity size is dilated. Wall thickness is increased in a pattern of mild LVH. Global systolic function is moderately reduced. The estimated ejection fraction is 35-40%. For Epic reporting: the left ventricular ejection fraction is 38% There is diffuse hypokinesis with regional variations. Regional wall motion difficult to determine but improved with echo contrast. Moderate diastolic dysfunction (grade II, pseudonormal filling pattern), suggestive of elevated LV filling pressures. The longitudinal strain is -12.6% with apical sparing (Normal range is -18 to -25).. - Right ventricle: The cavity size is normal. Systolic function is normal. Systolic pressure is not obtained. - Left atrium: The atrium is mildly dilated. - Aortic valve: There is mild to moderate regurgitation. - Pericardium: A minimal pericardial effusion and/or fat pad was identified. There are bilateral pleural effusions. Facility-Administered Medications as of 01/01/2025 Medication Dose Frequency Provider Last Rate Last Admin [COMPLETED] morphine 4 mg/mL injection 4 mg 4 mg ONE time only Zeke Cid MD 4 mg at 12/31/24 2110 heparin in 0.45% NaCl 25,000 unit/250 mL infusion 17 Units/kg/hr titrate Bharati Jarrell MD 17 mL/hrat 12/31/24 1027 17 Units/kg/hr at 12/31/24 1027 [COMPLETED] nitroglycerin (NITRO-BID) 2 % topical ointment 1 Inch 1 Inch ONE time only Susan Esparza MD 1 Inch at 12/28/24 0117 [COMPLETED] aspirin (SHILA CHEWABLE) chewable tablet 81 mg 81 mg ONE time only Richard Esparza MD 81 mg at 12/28/24 011 sodium chloride flush injection 10 mL 10 mL every 12 hours (2 times daily) Luis Alfredo Harris MD 10mL at 12/31/242025 sodium chloride flush injection 10 mL 10 mL see admin instructions Luis Alfredo Harris MD sodium chloride 0.9 % flush bag 25 mL 25 mL see admin instructions Luis Alfredo Harris MD dextrose 5 % in water 250 mL flush bag 25 mL 25 mL see admin instructions Luis Alfredo Harris MD nitroglycerin (NITROSTAT) tablet 0.4 mg 0.4 mg every 5 minutes PRN Luis Alfredo Harris MD 0.4 mg at 12/30/24 1632 acetaminophen (TYLENOL) tablet 650 mg 650 mg every 6 hours PRN Luis Alfredo Harris MD 650 mg at 12/31/24 1910 naloxone (NARCAN) 0.4 mg/mL injection 0.1-0.4 mg 0.1-0.4 mg see admin instructions Luis Alfredo Harris MD sennosides-docusate sodium (SENNA-S) 8.6-50 mg per tablet 1 Tablet 1 Tablet BID PRN Luis Alfredo Harris MD atorvastatin (LIPITOR) tablet 80 mg 80 mg daily BEDTIME Luis Alfredo Harris MD 80 mg at 12/31/242024 dextrose 5 % - sodium chloride 0.9 % infusion see admin instructions Luis Alfredo Harris MD dextrose 50% (D50) syringe 12.5 Gram 12.5 Gram see admin instructions Luis Alfredo Harris MD dextrose 50% (D50) syringe 25 Gram 25 Gram see admin instructions Luis Alfredo Harris MD glucagon HCL 1 mg/mL injection 1 mg 1 mg see admin instructions Luis Alfredo Harris MD insulin glargine (LANTUS) injection 15 Units 0.15 Units/kg daily BEDTIME Luis Alfredo Harris MD insulin lispro (HumaLOG,ADMELOG) injection 0-12 Units 0-12 Units TID WITH meals Luis Alfredo Harris MD 2 Units at 12/30/24 1138 insulin lispro (HumaLOG,ADMELOG) injection 0-6 Units 0-6 Units daily BEDTIME Luis Alfredo Harris MD aspirin (ECOTRIN EC) tablet 81 mg 81 mg daily Luis Alfredo Harris MD 81 mg at 12/30/24 0912 clopidogreL (PLAVIX) tablet 75 mg 75 mg daily Luis Alfredo Harris MD 75 mg at 12/30/24 0912 amLODIPine (NORVASC) tablet 10 mg 10 mg daily Luis Alfredo Harris MD 10 mg at 12/31/24 1556 hydrALAZINE (APRESOLINE) tablet 100 mg 100 mg TID Luis Alfredo Harris MD 100 mg at 12/31/24 1800 metoprolol tartrate (LOPRESSOR) tablet 50 mg 50 mg BID Luis Alfredo Harris MD 50 mg at 12/31/24 2025 valsartan (DIOVAN) tablet 160 mg 160 mg daily EARLY Luis Alfredo Harris MD 160 mg at 01/01/25 0544 gabapentin (NEURONTIN) capsule 200 mg 200 mg TID Luis Alfredo Harris MD 200 mg at 12/31/24 1816 nitroglycerin (NITRO-BID) 2 % topical ointment 1 Inch 1 Inch every 6 hours Gisela Harris FNP 1 Inch at 12/31/24 0510 [COMPLETED] morphine 4 mg/mL injection 4 mg 4 mg ONE time only Олег Dailey MD 4 mg at 12/27/242120 [COMPLETED] ondansetron (ZOFRAN) 4 mg/2 mL injection 4 mg 4 mg ONE time only Олег Dailey MD 4 mg at 12/27/242119 [COMPLETED] heparin injection 4,000 Units 4,000 Units ONE time only Олег Dailey MD 4,000Units at 12/27/242125 OBJECTIVE: BP 136/54 (BP Location: Left arm, Patient Position (BP): Supine) Pulse 62 Temp 97.7 ??F (36.5 ??C) (Temporal) Resp 18 Ht 5' 9 (1.753 m) Wt 100.3 kg (221 lb 2 oz) SpO2 94% BMI 32.65 kg/m?? He appears well, in no apparent distress. Alert and oriented times three. Vital signs stable as documented in vital signs section. Neck: No JVD Heart: RR&R S1 and S2 normal, no murmur, gallops or rub. Lungs: Chest is clear; no wheezes or rales, No edema or JVD. Abd: Bowel sounds present, soft, non-tender. Ext: No edema, pulses palpable. Right radial site from cath clean dry intact normal pulse. Data Review: Laboratory & imaging data reviewed Recent Labs 12/30/24 0522 12/30/24 2336 12/31/24 0442 01/01/25 0138 WBC 5.0 4.5* 4.3* 4.1* HGB 10.2* 10.0* 9.8* 9.2* PLT 203 209 200 182 Recent Labs 12/30/24 0522 12/31/24 0442 01/01/25 0138 GLUCOSE 133* 199* 166* BUN 49* 62* 31* CREAT 5.55* 6.43* 4.19* NA 135* 134* 136 K 4.5 4.6 4.6 CO2 25 24 27 Lab Results Component Value Date/Time BASETROP 163 () 12/30/2024 04:56 PM 2HRTROP 160 () 12/30/2024 07:17 PM DELTA -8 10/12/2023 02:00 PM 6HRTROP 160 () 12/30/2024 11:36 PM Lab Results Component Value Date WBC 4.1 (L) 01/01/2025 HGB 9.2 (L) 01/01/2025 HCT 27.2 (L) 01/01/2025 PLT 182 01/01/2025 MCV 85.0 01/01/2025 Lab Results Component Value Date NA 136 01/01/2025 K 4.6 01/01/2025 CL 98 01/01/2025 CO2 27 01/01/2025 CA 8.3 (L) 01/01/2025 BUN 31 (H) 01/01/2025 CREAT 4.19 (H) 01/01/2025 GLUCOSE 166 (H) 01/01/2025 ANIONGAP 11 01/01/2025 ASSESSMENT: Patient Active Problem List Diagnosis Code Type 2 diabetes mellitus with [place]cemia [place] E11.65 Acute on chronic congestive heart failure [place] I50.9 Accelerated hypertension I10 Essential hypertension I10 GERD (gastroesophageal reflux disease) K21.9 Mixed hyperlipidemia E78.2 TIA (transient ischemic attack) G45.9 NSTEMI (non-ST elevated myocardial infarction) [place] I21.4 Hyperglycemia due to diabetes mellitus [place] E11.65 Elevated d-dimer R79.89 Large pleural effusion J90 Diabetic polyneuropathy associated with type 2 diabetes mellitus [place] E11.42 ESRD on hemodialysis [place] N18.6, Z99.2 Lumbar radiculopathy, acute M54.16 Syncope R55 Atherosclerosis of [place] coronary artery of [place] heart without angina pectoris I25.10 History of coronary artery stent placement Z95.5 Hypertensive urgency I16.0 History of stroke without residual deficits Z86.73 Carpal tunnel syndrome, right G56.01 Chronic combined systolic and diastolic CHF (congestive heart failure) [place] I50.42 Spinal stenosis of lumbar region with neurogenic claudication M48.062 Weakness of right lower extremity R29.898 Weakness of right upper extremity R29.898 Stable angina I20.89 Chronic anemia D64.9 ESRD (end stage renal disease) on dialysis [place] N18.6, Z99.2 Ischemic dilated cardiomyopathy [place] I25.5, I42.0 Acute chest pain R07.9 Elevated troponin R79.89 Assessment: NSTEMI Status post PCI to the LAD 12/31/2024 History of CAD with recent PCI in 07/16/2024 Ischemic cardiomyopathy LVEF 35 to 40% ESRD on dialysis Recommendations: - He is doing well status post PCI due to in-stent restenosis in the LAD 12/31/2024, residual 50% disease in the RCA - DAPT therapy x 1 year with aspirin 81 mg p.o. and Plavix 75 mg p.o. -Lipitor 80 mg p.o. daily - Imdur 30 mg p.o. daily - Metoprolol titrate 50 mg p.o. twice daily - Echocardiogram shows LVEF improved to 50-55% from about 40% prior -Renal team has him on valsartan 160 mg p.o. daily -Will defer to them Jardiance can be added -He is on amlodipine 10 mg p.o. daily and hydralazine 100 mg p.o. 3 times daily - Dialysis as per renal team Cardiology will now sign off please call again if any further questions. Cardiac rehab on discharge Please have him follow-up with us in clinic 2 to 4 weeks postdischarge Case discussed with Attending Hospitalist Dr. Lucina Blue MD 01/01/2025 7:30 AM This documentation was created by [employer] induction furnace operator software (known for inherent induction furnace operator error) using [employer] EHR. Effort has been done to assure accuracy of induction furnace operator. Any obvious errors or omissions should be clarified with the author of the document. * Gisela Harris, CLAIM TECHNICIAN - 12/31/2024 3:35 PM CDT CARDIOLOGY PROGRESS NOTE Patient: Ida Morelos / 64 y.o. / male/ 1960 Today's Date: 12/31/2024 Chief complaint/ Admitting Diagnosis nstemi SUBJECTIVE: Mr. Morelos denies cardiovascular complaints. OBJECTIVE: BP (!) 144/54 Pulse 72 Temp 97.3 ??F (36.3 ??C) Resp 12 Ht 5' 9 (1.753 m) Wt 96 kg (211 lb 10.3 oz) SpO2 97% BMI 31.25 kg/m?? The range of BP in the last 24 hours is:BP: (97-159)/(49-97) Intake/Output Summary (Last 24 hours) at 12/31/2024 1535 Last data filed at 12/31/2024 1330 Gross per 24 hour Intake 1040 ml Output 1200 ml Net -160 ml GENERAL: a/o x3, no acute distress, cooperative LUNGS: respirations unlabored, breath sounds clear to auscultation HEART: RRR Abdomen: soft and non-tender. + BS Extremities: pulses palpable, no edema Data Review: Medications/ Allergies reviewed. Laboratory & imaging data reviewed CBC: Recent Labs 12/29/24 0437 12/30/24 0522 12/30/24 2336 12/31/24 0442 WBC 4.4* 5.0 4.5* 4.3* HGB 10.4* 10.2* 10.0* 9.8* PLT 183 203 209 200 BMP: Recent Labs 12/29/24 0437 12/30/24 0522 12/31/24 0442 GLUCOSE 169* 133* 199* BUN 31* 49* 62* CREAT 4.24* 5.55* 6.43* NA 136 135* 134* K 4.3 4.5 4.6 CO2 27 25 24 Cardiac Tele: nsr rate 70 ; no events ASSESSMENT: Principal Problem: NSTEMI (non-ST elevated myocardial infarction) ([facility]) Active Problems: Essential hypertension Mixed hyperlipidemia Overview: Identified By: Cayden Joyce Type 2 diabetes mellitus with hyperglycemia ([facility]) GERD (gastroesophageal reflux disease) Diabetic polyneuropathy associated with type 2 diabetes mellitus ([facility]) ESRD on hemodialysis ([facility]) History of coronary artery stent placement History of stroke without residual deficits Chronic combined systolic and diastolic CHF (congestive heart failure) ([facility]) Chronic anemia ESRD (end stage renal disease) on dialysis ([facility]) Ischemic dilated cardiomyopathy ([facility]) Acute chest pain Elevated troponin PLAN: S/p JUAN LAD this am Continue dapt/statin/bb; may dc heparin Dialysis today post pci [facility] Cosigned by Nabil Blue MD at 12/31/2024 3:38 PM CDT * Phil Verdugo MD - 12/31/2024 8:27 AM CDT Images from the original note were not included. Your life is our life's work [facility] Hospitalist/Hospital Medicine Progress Note LOS: 3 days Room/Bed: Patient name: Ida Morelos Date of : 1960 HOSPITAL COURSE SUMMARY: Ida Morelos, a 64 y.o. male who is admitted for further management of with PHM of T2DM, HTN, HLD, ESRD on HD, CAD status post PCI, CVA without residual deficits, diabetic polyneuropathy, combined systolic and diastolic heart failure, lumbar radiculopathy, GERD who was transferred from [facility] ER to [facility] ED on 12/2024 for further management of chest pain. He presented there with complaints of chest pain radiating to the neck and mid back that started around 6 PM which did not resolve with sublingual nitroglycerin. His initial troponin was at 182 and a2-hour troponin was at 171. He was given heparin bolus and was started on heparin drip. He was alsostarted on nitro drip. They transferred the patient to our ER for further management. On arrival, Vitals significant for slightly elevated blood pressure of 184/74 mmHg. Nitro drip was stopped and Nitropaste was placed. Labs revealed anemia with a hemoglobin of 9.9. Leukopenia with a WBC of 4.1. Troponins trended flatat 182-171-153. Glucose at 208. Heparin drip was continued. Hospitalist was consulted for admission and further management. Spoke with ER physician over the phone and discussed the current ER course. Examined the patient at bedside. He was comfortably sleeping. He reports that around 6 PM while he was resting, he started having sharp pain in the substernal region more on the left side radiating to the neck and into the mid back. He reports that the pain was constant and was also associated withdiaphoresis. Denies any palpitations or shortness of breath. He reports that the pain was similar to his previous episode of [place] for which he had 2 stents placed in [facility]. Denies cough, sputum production, fever, chills. He reports that he missed his dialysis session on Tuesday for medical appointment and had a catch-up session on . 12/29: Patient with no further chest pain. Awaiting cardiac catheterization on Tuesday. Blood sugars were elevated earlier however better controlled later in p.m. patient requests if possible to have AVfistula dilation as inpatient which is scheduled on Tuesday; will discuss with vascular surgery. 12/30: Spoke with Dr. Jewell with vascular surgery regarding patient's admission and plan for fistulogram on 01/01; Dr. Rivera will notify Dr. Peace who will follow-up on this tomorrow. Discussed with patient that left heart cath findings/results will also determine timing of fistulogram. Notified laterin p.m. the patient having chest pain relieved by nitroglycerin. EKG with no significant changes, troponin elevated but compared to prior troponin on admission is flat. N.p.o. from midnight for left heart catheterization tomorrow. Patient refused basal insulin overnight however patient remains stable, will continue with SSI 12/31-> awaiting [facility] today Consultants: IP CONSULT TO CARDIAC REHAB IP CONSULT TO NEPHROLOGY IP CONSULT TO CARDIOLOGY SUBJECTIVE: Patient seen and examined at bedside. No new complaints at time of rounding other than wanting to know if fistulogram can be performed while patient remains admitted. OBJECTIVE: Temp (24hrs), Av.5 ??F (36.4 ??C), Min:97 ??F (36.1 ??C), Max:98.2 ??F (36.8 ??C) BP 120/49 (BP Location: Right arm, Patient Position (BP): Supine) Pulse 66 Temp 97.5 ??F (36.4 ??C) (Temporal) Resp 18 Ht 5' 9 (1.753 m) Wt 96.5 kg (212 lb 11.9 oz) SpO2 99% BMI 31.42 kg/m?? Intake/Output Summary (Last 24 hours) at 12/31/2024 0828 Last data filed at 12/30/2024 1732 Gross per 24 hour Intake 720 ml Output -- Net 720 ml Last documented weight: Weight: 96.5 kg (212 lb 11.9 oz) (12/31/24 0402) EXAM: General: alert, in no distress Neurologic: Grossly normal HEENT: atraumatic, Normocephalic, without obvious abnormality Lungs: clear to auscultation bilaterally, normal respiratory effort Heart: normal rate and regular rhythm, S1 and S2 normal Abdomen: Soft, non-tender. Bowel sounds normal. No masses, no organomegaly. Extremities: extremities normal, atraumatic, no cyanosis or edema Skin: negative LABORATORY: Recent Labs 12/29/24 0437 12/30/24 0522 12/30/24 2336 12/31/24 0442 WBC 4.4* 5.0 4.5* 4.3* HGB 10.4* 10.2* 10.0* 9.8* HCT 31.5* 31.0* 30.6* 29.7* PLT 183 203 209 200 Recent Labs 12/29/24 0437 12/30/24 0522 12/31/24 0442 NA 136 135* 134* K 4.3 4.5 4.6 CL 100 98 98 CO2 27 25 24 CA 8.6* 9.0 8.7* BUN 31* 49* 62* CREAT 4.24* 5.55* 6.43* GLUCOSE 169* 133* 199* No results for input(s): TOTALPROTEIN , ALBUMIN , BILITOTAL , ALKPHOS , AST , ALT in the last 72 hours. No results for input(s): INR , PT in the last 72 hours. Invalid input(s): PTT Recent Labs 12/30/24 1656 12/30/24 1917 12/30/24 2336 BASETROP 163* -- -- 2HRTROP -- 160* -- 6HRTROP -- -- 160* Diagnostic testing reviewed by me: Medications were reviewed by me. Current Facility-Administered Medications: heparin in 0.45% NaCl 25,000 unit/250 mL infusion, 17 Units/kg/hr, IV, titrate, Bharati Jarrell MD, Last Rate: 17 mL/hr at 12/30/24 173, 17 Units/kg/hr at 12/30/241731 sodium chloride flush injection 10 mL, 10 mL, IV, every 12 hours (2 times daily), Luis Alfredo Harris MD, 10 mL at 12/30/242045 sodium chloride flush injection 10 mL, 10 mL, IV, see admin instructions, Luis Alfredo Harris MD sodium chloride 0.9 % flush bag 25 mL, 25 mL, IV, see admin instructions, Luis Alfredo Harris MD dextrose 5 % in water 250 mL flush bag 25 mL, 25 mL, IV, see admin instructions, Luis Alfredo Harris MD nitroglycerin (NITROSTAT) tablet 0.4 mg, 0.4 mg, Sublingual, every 5 minutes PRN, Luis Alfredo Harris MD, 0.4 mg at 12/30/24 1632 acetaminophen (TYLENOL) tablet 650 mg, 650 mg, Oral, every 6 hours PRN, Luis Alfredo Harris MD, 650 mg at 12/30/24 0015 naloxone (NARCAN) 0.4 mg/mL injection 0.1-0.4 mg, 0.1-0.4 mg, IV, see admin instructions, Luis Alfredo Harris MD sennosides-docusate sodium (SENNA-S) 8.6-50 mg per tablet 1 Tablet, 1 Tablet, Oral, BID PRN, Luis Alfredo Harris MD atorvastatin (LIPITOR) tablet 80 mg, 80 mg, Oral, daily BEDTIME, Luis Alfredo Harris MD, 80 mg at 12/30/24 2046 dextrose 5 % - sodium chloride 0.9 % infusion, , IV, see admin instructions, Luis Alfredo Harris MD dextrose 50% (D50) syringe 12.5 Gram, 12.5 Gram, IV, see admin instructions, Luis Alfredo Harris MD dextrose 50% (D50) syringe 25 Gram, 25 Gram, IV, see admin instructions, Luis Alfredo Harris MD glucagon HCL 1 mg/mL injection 1 mg, 1 mg, IM, see admin instructions, Luis Alfredo Harris MD insulin glargine (LANTUS) injection 15 Units, 0.15 Units/kg, subCUT, daily BEDTIME, Luis Alfredo Harris MD insulin lispro (HumaLOG,ADMELOG) injection 0-12 Units, 0-12 Units, subCUT, TID WITH meals, Luis Alfredo Harris MD, 2 Units at 12/30/24 1138 insulin lispro (HumaLOG,ADMELOG) injection 0-6 Units, 0-6 Units, subCUT, daily BEDTIME, Luis Alfredo Harris MD aspirin (ECOTRIN EC) tablet 81 mg, 81 mg, Oral, daily, Luis Alfredo Harris MD, 81 mg at 12/30/24 09 clopidogreL (PLAVIX) tablet 75 mg, 75 mg, Oral, daily, Luis Alfredo Harris MD, 75 mg at 12/30/24 09 amLODIPine (NORVASC) tablet 10 mg, 10 mg, Oral, daily, Luis Alfredo Harris MD, 10 mg at 12/30/24 09 hydrALAZINE (APRESOLINE) tablet 100 mg, 100 mg, Oral, TID, Luis Alfredo Harris MD, 100 mg at 12/30/24 172 metoprolol tartrate (LOPRESSOR) tablet 50 mg, 50 mg, Oral, BID, Luis Alfredo Harris MD, 50 mg at 12/30/24 204 valsartan (DIOVAN) tablet 160 mg, 160 mg, Oral, daily EARLY, Luis Alfredo Harris MD, 160 mg at 12/31/24 05 gabapentin (NEURONTIN) capsule 200 mg, 200 mg, Oral, TID, Luis Alfredo Harris MD, 200 mg at 729 nitroglycerin (NITRO-BID) 2 % topical ointment 1 Inch, 1 Inch, Topical, every 6 hours, Gisela Harris FNP, 1 Inch at 12/31/24 0510 Primary discharge diagnosis: NSTEMI (non-ST elevated myocardial infarction) ([facility]) Other active medical issues also addressed during this admission: Active Hospital Problems Diagnosis Acute chest pain Elevated troponin Chronic anemia ESRD (end stage renal disease) on dialysis ([facility]) Ischemic dilated cardiomyopathy ([facility]) Chronic combined systolic and diastolic CHF (congestive heart failure) ([facility]) ESRD on hemodialysis ([facility]) History of coronary artery stent placement History of stroke without residual deficits NSTEMI (non-ST elevated myocardial infarction) ([facility]) Type 2 diabetes mellitus with hyperglycemia ([facility]) Essential hypertension Diabetic polyneuropathy associated with type 2 diabetes mellitus ([facility]) GERD (gastroesophageal reflux disease) Mixed hyperlipidemia Resolved Hospital Problems No resolved problems to display. ASSESSMENT AND PLAN: Stable angina History of CAD status post PCI -Presented for left-sided chest pain radiating to neck and back accompanied by diaphoresis -EKG showed nonspecific ST segment changes as per my read. -Troponins trended flat. -Has history of CAD with prior h/o PCI and stenting -Currently chest pain-free Plan: -Continue aspirin, Plavix and statin. -Continue heparin drip -Continue nitroglycerin as needed -Telemetry monitoring. -EKG as needed for worsening chest pain -Cardiology evaluated; plans for cardiac catheterization on Tuesday -n.p.o. 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 T2DM -Has history of type 2 diabetes mellitus. 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 -Started on insulin Lantus 15 units at bedtime along with sliding scale -Patient however noted to be refusing basal insulin; will inquire switch to morning dose if patientprefers -Monitor insulin requirement and adjust insulin regimen based on requirements; Chronic combined systolic and diastolic heart failure -Recent 2D echo from 10/21/2024 showed EF of 35 to 40% with grade 2 diastolic dysfunction -On metoprolol tartrate, losartan -Makes very minimal urine. Plan: -Continue metoprolol tartrate and valsartan - Monitor intake and output - Fluid management with dialysis - Low-salt diet and fluid restriction ESRD on HD AV fistula in situ Current access to HD catheter however has an AV fistula which is new to be dilated/had fistulogram on 01/01 -Currently on Tuesday schedule. -Last dialysis session due to missing dialysis on Tuesday Plan: -Continue dialysis. -Nephrology consulted. -Renally dose medications -Notified vascular surgery about patient's admission and if they would like to perform patient's fistulogram scheduled on 01/01 while he is inpatient. On-call for vascular surgery will notify patient'sprimary vascular surgeon Dr. Mcconnell Chronic anemia - Anemia likely in the setting of ESRD. - Monitor hemoglobin - Transfuse if hemoglobin drops less than 7. Code status: Full Code Outpatient follow up: PCP, cardiology, nephrology, vascular surgery Anticipated Disposition Location: Final Discharge Disposition: Home or Self Care Timeframe: 01/01/2025 Criteria: Cardiac catheterization results, vascular surgery decision on timing/setting of fistulogram Patient's understanding of illness: Fair Primary family contact: None on PHI, per [facility] friend Lopez Ruiz [facility] complexity: [] Mild [x] Moderate [] High Phil Verdugo MD 12/31/2024, 8:28 AM * Cristal Phillips RN - 12/30/2024 4:44 PM CDT Pt had episode of chest pain that started at 4/10 in left side of chest. 1 nitro given with no relief. CP rated at 7/10 and going all across chest. 2nd nitro given with relief. Mild SOB associated with CP throughout. Pt states he had an episode of very blurry vision about 15 min before the onset ofCP. Physician notified of events - orders placed for 12 lead EKG and troponin levels. Will continueto monitor. * Bharati Jarrell MD - 12/30/2024 1:30 PM CDT Images from the original note were not included. Your life is our life's work [facility] Hospitalist/Hospital Medicine Progress Note LOS: 2 days Room/Bed: [facility]/ Patient name: Ida Morelos Date of : 1960 HOSPITAL COURSE SUMMARY: Ida Morelos, a 64 y.o. male who is admitted for further management of with PHM of T2DM, HTN, HLD, ESRD on HD, CAD status post PCI, CVA without residual deficits, diabetic polyneuropathy, combined systolic and diastolic heart failure, lumbar radiculopathy, GERD who was transferred from [facility] to [facility] ED on 12/2024 for further management of chest pain. He presented there with complaints of chest pain radiating to the neck and mid back that started around 6 PM which did not resolve with sublingual nitroglycerin. His initial troponin was at 182 and a2-hour troponin was at 171. He was given heparin bolus and was started on heparin drip. He was alsostarted on nitro drip. They transferred the patient to our ER for further management. On arrival, Vitals significant for slightly elevated blood pressure of 184/74 mmHg. Nitro drip was stopped and Nitropaste was placed. Labs revealed anemia with a hemoglobin of 9.9. Leukopenia with a WBC of 4.1. Troponins trended flatat 182-171-153. Glucose at 208. Heparin drip was continued. Hospitalist was consulted for admission and further management. Spoke with ER physician over the phone and discussed the current ER course. Examined the patient at bedside. He was comfortably sleeping. He reports that around 6 PM while he was resting, he started having sharp pain in the substernal region more on the left side radiating to the neck and into the mid back. He reports that the pain was constant and was also associated withdiaphoresis. Denies any palpitations or shortness of breath. He reports that the pain was similar to his previous episode of [place] for which he had 2 stents placed in [facility]. Denies cough, sputum production, fever, chills. He reports that he missed his dialysis session on Tuesday for medical appointment and had a catch-up session on . 12/29: Patient with no further chest pain. Awaiting cardiac catheterization on Tuesday. Blood sugars were elevated earlier however better controlled later in p.m. patient requests if possible to have AVfistula dilation as inpatient which is scheduled on Tuesday; will discuss with vascular surgery. 12/30: Spoke with Dr. Jewell with vascular surgery regarding patient's admission and plan for fistulogram on 01/01; Dr. Rivera will notify Dr. Peace who will follow-up on this tomorrow. Discussed with patient that left heart cath findings/results will also determine timing of fistulogram. Notified laterin p.m. the patient having chest pain relieved by nitroglycerin. EKG with no significant changes, troponin elevated but compared to prior troponin on admission is flat. N.p.o. from midnight for left heart catheterization tomorrow. Patient refused basal insulin overnight however patient remains stable, will continue with SSI Consultants: IP CONSULT TO CARDIAC REHAB IP CONSULT TO NEPHROLOGY IP CONSULT TO CARDIOLOGY SUBJECTIVE: Patient seen and examined at bedside. No new complaints at time of rounding other than wanting to know if fistulogram can be performed while patient remains admitted. OBJECTIVE: Temp (24hrs), Av.5 ??F (36.4 ??C), Min:97 ??F (36.1 ??C), Max:98.2 ??F (36.8 ??C) BP 117/57 (BP Location: Right arm, Patient Position (BP): Supine) Pulse 65 Temp 97 ??F (36.1 ??C) (Oral) Resp 18 Ht 5' 9 (1.753 m) Wt 96.6 kg (213 lb) SpO2 96% BMI 31.45 kg/m?? Intake/Output Summary (Last 24 hours) at 12/30/2024 1330 Last data filed at 12/30/2024 1300 Gross per 24 hour Intake 1035 ml Output 600 ml Net 435 ml Last documented weight: Weight: 96.6 kg (213 lb) (12/30/24 0418) EXAM: General: alert, in no distress Neurologic: Grossly normal HEENT: atraumatic, Normocephalic, without obvious abnormality Lungs: clear to auscultation bilaterally, normal respiratory effort Heart: normal rate and regular rhythm, S1 and S2 normal Abdomen: Soft, non-tender. Bowel sounds normal. No masses, no organomegaly. Extremities: extremities normal, atraumatic, no cyanosis or edema Skin: negative LABORATORY: Recent Labs 12/27/24200412/28/2410812/29/2443612/30/24521 WBC 4.6 4.1* 4.4* 5.0 HGB 10.7* 9.9* 10.4* 10.2* HCT 32.2* 29.7* 31.5* 31.0* PLT 232 202 183 203 Recent Labs 12/27/24200412/28/2410812/29/2443612/30/24521 NA 138 140 136 135* K 4.1 3.9 4.3 4.5 CL 98 101 100 98 CO2 28 26 27 25 CA 9.3 8.7* 8.6* 9.0 BUN 36* 40* 31* 49* CREAT 4.33* 4.42* 4.24* 5.55* GLUCOSE 206* 208* 169* 133* Recent Labs 12/27/242004 TOTALPROTEIN 7.2 ALBUMIN 4.1 BILITOTAL 0.4 ALKPHOS 107 AST 18 ALT 12 Recent Labs 12/28/24 0109 INR 1.1 PT 14.4 Recent Labs 12/27/24200412/27/24 2136 12/28/24 0159 BASETROP 182* -- -- 2HRTROP -- 171* -- 6HRTROP -- -- 153* Diagnostic testing reviewed by me: Medications were reviewed by me. Current Facility-Administered Medications: heparin in 0.45% NaCl 25,000 unit/250 mL infusion, 17 Units/kg/hr, IV, titrate, Bharati Jarrell MD, Last Rate: 17 mL/hr at 12/30/24 0243, 17 Units/kg/hr at 12/30/24 0243 sodium chloride flush injection 10 mL, 10 mL, IV, every 12 hours (2 times daily), Luis Alfredo Harris MD, 10 mL at 12/29/242053 sodium chloride flush injection 10 mL, 10 mL, IV, see admin instructions, Luis Alfredo Harris MD sodium chloride 0.9 % flush bag 25 mL, 25 mL, IV, see admin instructions, Luis Alfredo Harris MD dextrose 5 % in water 250 mL flush bag 25 mL, 25 mL, IV, see admin instructions, Luis Alfredo Harris MD nitroglycerin (NITROSTAT) tablet 0.4 mg, 0.4 mg, Sublingual, every 5 minutes PRN, Luis Alfredo Harris MD acetaminophen (TYLENOL) tablet 650 mg, 650 mg, Oral, every 6 hours PRN, Luis Alfredo Harris MD, 650 mg at 12/30/24 0015 naloxone (NARCAN) 0.4 mg/mL injection 0.1-0.4 mg, 0.1-0.4 mg, IV, see admin instructions, Luis Alfredo Harris MD sennosides-docusate sodium (SENNA-S) 8.6-50 mg per tablet 1 Tablet, 1 Tablet, Oral, BID PRN, Luis Alfredo Harris MD atorvastatin (LIPITOR) tablet 80 mg, 80 mg, Oral, daily BEDTIME, Luis Alfredo Harris MD, 80 mg at 12/29/242052 dextrose 5 % - sodium chloride 0.9 % infusion, , IV, see admin instructions, Luis Alfredo Harris MD dextrose 50% (D50) syringe 12.5 Gram, 12.5 Gram, IV, see admin instructions, Luis Alfredo Harris MD dextrose 50% (D50) syringe 25 Gram, 25 Gram, IV, see admin instructions, Luis Alfredo Harris MD glucagon HCL 1 mg/mL injection 1 mg, 1 mg, IM, see admin instructions, Luis Alfredo Harris MD insulin glargine (LANTUS) injection 15 Units, 0.15 Units/kg, subCUT, daily BEDTIME, Luis Alfredo Harris MD insulin lispro (HumaLOG,ADMELOG) injection 0-12 Units, 0-12 Units, subCUT, TID WITH meals, Luis Alfredo Harris MD, 2 Units at 12/30/24 1138 insulin lispro (HumaLOG,ADMELOG) injection 0-6 Units, 0-6 Units, subCUT, daily BEDTIME, Luis Alfredo Harris MD aspirin (ECOTRIN EC) tablet 81 mg, 81 mg, Oral, daily, Luis Alfredo Harris MD, 81 mg at 12/30/24 0912 clopidogreL (PLAVIX) tablet 75 mg, 75 mg, Oral, daily, Luis Alfredo Harris MD, 75 mg at 12/30/24 0912 amLODIPine (NORVASC) tablet 10 mg, 10 mg, Oral, daily, Luis Alfredo Harris MD, 10 mg at 12/30/24 0912 hydrALAZINE (APRESOLINE) tablet 100 mg, 100 mg, Oral, TID, Luis Alfredo Harris MD, 100 mg at 12/30/24 1204 metoprolol tartrate (LOPRESSOR) tablet 50 mg, 50 mg, Oral, BID, Luis Alfredo Harris MD, 50 mg at 12/30/24 0912 valsartan (DIOVAN) tablet 160 mg, 160 mg, Oral, daily EARLY, Luis Alfredo Harris MD, 160 mg at 12/30/24 0538 gabapentin (NEURONTIN) capsule 200 mg, 200 mg, Oral, TID, Luis Alfredo Harris MD, 200 mg at nitroglycerin (NITRO-BID) 2 % topical ointment 1 Inch, 1 Inch, Topical, every 6 hours, Gisela Harris, CLAIM TECHNICIAN, 1 Inch at 12/30/24 1138 Primary discharge diagnosis: NSTEMI (non-ST elevated myocardial infarction) ([facility]) Other active medical issues also addressed during this admission: Active Hospital Problems Diagnosis Acute chest pain Elevated troponin Chronic anemia ESRD (end stage renal disease) on dialysis ([facility]) Ischemic dilated cardiomyopathy ([facility]) Chronic combined systolic and diastolic CHF (congestive heart failure) ([facility]) ESRD on hemodialysis ([facility]) History of coronary artery stent placement History of stroke without residual deficits NSTEMI (non-ST elevated myocardial infarction) ([facility]) Type 2 diabetes mellitus with hyperglycemia ([facility]) Essential hypertension Diabetic polyneuropathy associated with type 2 diabetes mellitus ([facility]) GERD (gastroesophageal reflux disease) Mixed hyperlipidemia Resolved Hospital Problems No resolved problems to display. ASSESSMENT AND PLAN: Stable angina History of CAD status post PCI -Presented for left-sided chest pain radiating to neck and back accompanied by diaphoresis -EKG showed nonspecific ST segment changes as per my read. -Troponins trended flat. -Has history of CAD with prior h/o PCI and stenting -Currently chest pain-free Plan: -Continue aspirin, Plavix and statin. -Continue heparin drip -Continue nitroglycerin as needed -Telemetry monitoring. -EKG as needed for worsening chest pain -Cardiology evaluated; plans for cardiac catheterization on Tuesday -n.p.o. 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 T2DM -Has history of type 2 diabetes mellitus. 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 -Started on insulin Lantus 15 units at bedtime along with sliding scale -Patient however noted to be refusing basal insulin; will inquire switch to morning dose if patientprefers -Monitor insulin requirement and adjust insulin regimen based on requirements; Chronic combined systolic and diastolic heart failure -Recent 2D echo from 10/21/2024 showed EF of 35 to 40% with grade 2 diastolic dysfunction -On metoprolol tartrate, losartan -Makes very minimal urine. Plan: -Continue metoprolol tartrate and valsartan - Monitor intake and output - Fluid management with dialysis - Low-salt diet and fluid restriction ESRD on HD AV fistula in situ Current access to HD catheter however has an AV fistula which is new to be dilated/had fistulogram on 01/01 -Currently on Tuesday schedule. -Last dialysis session due to missing dialysis on Tuesday Plan: -Continue dialysis. -Nephrology consulted. -Renally dose medications -Notified vascular surgery about patient's admission and if they would like to perform patient's fistulogram scheduled on 01/01 while he is inpatient. On-call for vascular surgery will notify [facility] vascular surgeon Dr. Mcconnell Chronic anemia - Anemia likely in the setting of ESRD. - Monitor hemoglobin - Transfuse if hemoglobin drops less than 7. Code status: Full Code Outpatient follow up: PCP, cardiology, nephrology, vascular surgery Anticipated Disposition Location: Final Discharge Disposition: Home or Self Care Timeframe: 01/01/2025 Criteria: Cardiac catheterization results, vascular surgery decision on timing/setting of fistulogram Patient's understanding of illness: Fair Primary family contact: None on PHI, per [facility] friend Lopez Ruiz [facility] complexity: [] Mild [x] Moderate [] High Bharati Jarrell MD 12/30/2024, 1:30 PM * Kenan Mendez CRNP - 12/30/2024 10:36 AM CDT DAILY PROGRESS NOTE [facility] EP CARDIOLOGY 12/30/2024 Ida Morelos is a 64 y.o. male being follow by cardiology for chest pain with chest pressure. HPI: Mr. Morelos is a 64-year-old gentleman with a history of ESRD on dialysis, diabetes type 2, dyslipidemia, CAD with PCI in [place] in 07/16/2024 reported he had a TN and got 2 stents, ischemic cardiomyopathy LVEF from 10/21/2024 35-40%, mild to moderate aortic regurgitation. The patient presented with chest pain reported a pressure sensation return clinic relieved with nitroglycerin troponins were elevated 181, 171, 153 proBNP 15,927, chest x-ray with no significant vascular congestion. He denied any dyspnea on exertion or significant leg swelling but did report symptoms feeling somewhat similar apart from the chest pressure is new to when he had his heart attack in June 2024. He was admitted and being treated for NSTEMI. EKG normal sinus rhythm with no acute STchanges but did show evidence of prior septal injury. SUBJECTIVE: Currently patient resting bed without issues. States he got some sleep last night and feels pretty good. He has no complaints of chest pain, no shortness of breath on exertion. No syncope or near syncope. He mentioned yesterday that he has a scheduled procedure on Tuesday to dilate his fistula for his dialysis. Patient has no current questions or concerns about diagnostic left heart cath on Tuesday. OBJECTIVE: BP (!) 147/69 (BP Location: Right arm, Patient Position (BP): Supine) Pulse 63 Temp 97.6 ??F (36.4 ??C) (Oral) Resp 18 Ht 5' 9 (1.753 m) Wt 96.6 kg (213 lb) SpO2 94% BMI 31.45 kg/m?? He appears well, in no apparent distress. Alert and oriented times three, pleasant and cooperative. Heart: S1 and S2 normal, no murmurs, clicks, gallops or rubs, regular rate and rhythm Lungs: Chest is clear; no wheezes or rales, no edema or JVD Abdomen: soft, non-tender Extremities: No edema Lab Results Component Value Date WBC 5.0 12/30/2024 HGB 10.2 (L) 12/30/2024 HCT 31.0 (L) 12/30/2024 PLT 203 12/30/2024 MCV 87.6 12/30/2024 Lab Results Component Value Date NA 135 (L) 12/30/2024 K 4.5 12/30/2024 CL 98 12/30/2024 CO2 25 12/30/2024 CA 9.0 12/30/2024 BUN 49 (H) 12/30/2024 CREAT 5.55 (H) 12/30/2024 GLUCOSE 133 (H) 12/30/2024 ANIONGAP 12 12/30/2024 No results found for: BNP Troponins: TROPONIN T, BASELINE 5TH GEN Date Value Ref Range Status 12/27/2024 182 (HH) <=15 ng/L Final 10/12/2023 66 (H) <=15 ng/L Final 09/08/2023 144 (HH) <=15 ng/L Final 09/02/2023 95 (H) <=15 ng/L Final TROPONIN T, 2 HR 5TH GEN Date Value Ref Range Status 12/27/2024 171 (HH) <=15 ng/L Final 10/12/2023 58 (H) <=15 ng/L Final 09/08/2023 121 (HH) <=15 ng/L Final 09/02/2023 93 (H) <=15 ng/L Final DELTA 2HR TROPONIN T Date Value Ref Range Status 10/12/2023 -8 See Interp. Final 09/02/2023 -2 See Interp. Final TROPONIN T, 6 HR 5TH GEN Date Value Ref Range Status 12/28/2024 153 (HH) <=15 ng/L Final Telemetry Review: - Sinus rhythm-60s Cardiac studies Echocardiogram done 10/21/2024 Summary and Conclusion: - Left ventricle: The cavity size is dilated. Wall thickness is increased in a pattern of mild LVH. Global systolic function is moderately reduced. The estimated ejection fraction is 35-40%. For Epic reporting: the left ventricular ejection fraction is 38% There is diffuse hypokinesis with regional variations. Regional wall motion difficult to determine but improved with echo contrast. Moderate diastolic dysfunction (grade II, pseudonormal filling pattern), suggestive of elevated LV filling pressures. The longitudinal strain is -12.6% with apical sparing (Normal range is -18 to -25).. - Right ventricle: The cavity size is normal. Systolic function is normal. Systolic pressure is not obtained. - Left atrium: The atrium is mildly dilated. - Aortic valve: There is mild to moderate regurgitation. - Pericardium: A minimal pericardial effusion and/or fat pad was identified. There are bilateral pleural effusions. TTE-12/28/2024 Summary and Conclusion: - Left ventricle: The cavity size is normal. Wall thickness is increased in a pattern of mild LVH. Possible mild hypokinesis of the lateral wall. Global systolic function is at the lower limits of normal. The estimated ejection fraction is 50-55%. For Epic reporting: the left ventricular ejection fraction is 50% by visual assessment. Grade I diastolic dysfunction. The longitudinal strain is -17.0% (Normal range is -18 to -25). - Right ventricle: The cavity size is normal. Systolic function is normal. Systolic pressure is within the normal range. - Left atrium: The atrium is mildly dilated. - Mitral valve: The annulus is mildly calcified. Comparison: Summary and Conclusion: - Left ventricle: The cavity size is normal. Wall thickness is increased in a pattern of mild LVH. Possible mild hypokinesis of the lateral wall. Global systolic function is at the lower limits of normal. The estimated ejection fraction is 50-55%. For Epic reporting: the left ventricular ejection fraction is 50% by visual assessment. Grade I diastolic dysfunction. The longitudinal strain is -17.0% (Normal range is -18 to -25). - Right ventricle: The cavity size is normal. Systolic function is normal. Systolic pressure is within the normal range. - Left atrium: The atrium is mildly dilated. - Mitral valve: The annulus is mildly calcified. Comparison: Compared to the previous study, LV systolic functionhas improved. Prior Study Date: 10/21/2024. Assessment: NSTEMI History of CAD with recent PCI in 07/16/2024 Ischemic cardiomyopathy LVEF 35 to 40% ESRD on dialysis Recommendations: - Admitted with chest pain elevated troponins no acute ST changes - Had PCI done at outside facility back in December 2024 - Has ischemic cardiomyopathy LVEF 35 to 40% appears well compensated laying flat without being short of breath - He is currently getting dialysis --Cardiac diet ordered -cardiac catheterization for 12/31/2024 . n.p.o. tonight at midnight 12/31/2024 - Heparin drip -Nitropaste - Continue aspirin 81 mg p.o. daily and Plavix 75 mg p.o. daily since he had recent PCI -Lipitor 80 mg p.o. daily -He is on amlodipine 10 mg p.o. daily -He is on metoprolol 50 mg p.o. twice daily -Hydralazine 100 mg p.o. 3 times daily -He is on valsartan 160 mg p.o. daily, will defer to renal team monitor electrolytes keep potassiumnormal - Updated echocardiogram 12/28/2024 results posted above. GLORIA Shah 10:36 AM Plan created in collaboration with Dr. Blue Cosigned by Nabil Blue MD at 12/30/2024 5:19 PM CDT * Bharati Jarrell MD - 12/29/2024 1:17 PM CDT Images from the original note were not included. Your life is our life's work [facility] Hospitalist/Hospital Medicine Progress Note LOS: 1 day Room/Bed: 4122/01 Patient name: Ida Morelos Date of : 1960 HOSPITAL COURSE SUMMARY: Ida Morelos, a 64 y.o. male who is admitted for further management of with PHM of T2DM, HTN, HLD, ESRD on HD, CAD status post PCI, CVA without residual deficits, diabetic polyneuropathy, combined systolic and diastolic heart failure, lumbar radiculopathy, GERD who was transferred from [facility] ER to [facility] ED on 12/2024 for further management of chest pain. He presented there with complaints of chest pain radiating to the neck and mid back that started around 6 PM which did not resolve with sublingual nitroglycerin. His initial troponin was at 182 and a2-hour troponin was at 171. He was given heparin bolus and was started on heparin drip. He was alsostarted on nitro drip. They transferred the patient to our ER for further management. On arrival, Vitals significant for slightly elevated blood pressure of 184/74 mmHg. Nitro drip was stopped and Nitropaste was placed. Labs revealed anemia with a hemoglobin of 9.9. Leukopenia with a WBC of 4.1. Troponins trended flatat 182-171-153. Glucose at 208. Heparin drip was continued. Hospitalist was consulted for admission and further management. Spoke with ER physician over the phone and discussed the current ER course. Examined the patient at bedside. He was comfortably sleeping. He reports that around 6 PM while he was resting, he started having sharp pain in the substernal region more on the left side radiating to the neck and into the mid back. He reports that the pain was constant and was also associated withdiaphoresis. Denies any palpitations or shortness of breath. He reports that the pain was similar to his previous episode of TN for which he had 2 stents placed in [facility]. Denies cough, sputum production, fever, chills. He reports that he missed his dialysis session on Tuesday for medical appointment and had a catch-up session on . 12/29: Patient with no further chest pain. Awaiting cardiac catheterization on Tuesday. Blood sugars were elevated earlier however better controlled later in p.m. patient requests if possible to have AVfistula dilation as inpatient which is scheduled on Tuesday; will discuss with vascular surgery. Consultants: IP CONSULT TO CARDIAC REHAB IP CONSULT TO NEPHROLOGY IP CONSULT TO CARDIOLOGY SUBJECTIVE: Patient seen and examined at bedside. No new complaints. OBJECTIVE: Temp (24hrs), Av.6 ??F (36.4 ??C), Min:96.9 ??F (36.1 ??C), Max:98 ??F (36.7 ??C) BP 123/56 (BP Location: Right arm, Patient Position (BP): Supine) Pulse 64 Temp 98 ??F (36.7 ??C) (Temporal) Resp 18 Ht 5' 9 (1.753 m) Wt 94.5 kg (208 lb 7 oz) SpO2 98% BMI 30.78 kg/m?? Intake/Output Summary (Last 24 hours) at 12/29/2024 1317 Last data filed at 12/28/2024 1700 Gross per 24 hour Intake 500 ml Output 3650 ml Net -3150 ml Last documented weight: Weight: 94.5 kg (208 lb 7 oz) (12/29/24 8230) EXAM: General: alert, in no distress Neurologic: Grossly normal HEENT: atraumatic, Normocephalic, without obvious abnormality Lungs: clear to auscultation bilaterally, normal respiratory effort Heart: normal rate and regular rhythm, S1 and S2 normal Abdomen: Soft, non-tender. Bowel sounds normal. No masses, no organomegaly. Extremities: extremities normal, atraumatic, no cyanosis or edema Skin: negative LABORATORY: Recent Labs 12/27/24200412/28/2410812/29/24436 WBC 4.6 4.1* 4.4* HGB 10.7* 9.9* 10.4* HCT 32.2* 29.7* 31.5* PLT 232 202 183 Recent Labs 12/27/24200412/28/2410812/29/24436 NA 138 140 136 K 4.1 3.9 4.3 CL 98 101 100 CO2 28 26 27 CA 9.3 8.7* 8.6* BUN 36* 40* 31* CREAT 4.33* 4.42* 4.24* GLUCOSE 206* 208* 169* Recent Labs 12/27/242004 TOTALPROTEIN 7.2 ALBUMIN 4.1 BILITOTAL 0.4 ALKPHOS 107 AST 18 ALT 12 Recent Labs 12/28/24108 INR 1.1 PT 14.4 Recent Labs 12/27/24200412/27/24 2136 12/28/24 0159 BASETROP 182* -- -- 2HRTROP -- 171* -- 6HRTROP -- -- 153* Diagnostic testing reviewed by me: Medications were reviewed by me. Current Facility-Administered Medications: heparin in 0.45% NaCl 25,000 unit/250 mL infusion, 17 Units/kg/hr, IV, titrate, Bharati Jarrell MD, Last Rate: 17 mL/hr at 12/29/24 1110, 17 Units/kg/hr at 12/29/24 1110 sodium chloride flush injection 10 mL, 10 mL, IV, every 12 hours (2 times daily), Luis Alfredo Harris MD, 10 mL at 12/29/24 0904 sodium chloride flush injection 10 mL, 10 mL, IV, see admin instructions, Luis Alfredo Harris MD sodium chloride 0.9 % flush bag 25 mL, 25 mL, IV, see admin instructions, Luis Alfredo Harris MD dextrose 5 % in water 250 mL flush bag 25 mL, 25 mL, IV, see admin instructions, Luis Alfredo Harris MD nitroglycerin (NITROSTAT) tablet 0.4 mg, 0.4 mg, Sublingual, every 5 minutes PRN, Luis Alfredo Harris MD acetaminophen (TYLENOL) tablet 650 mg, 650 mg, Oral, every 6 hours PRN, Luis Alfredo Harris MD, 650 mg at 12/28/24 171 naloxone (NARCAN) 0.4 mg/mL injection 0.1-0.4 mg, 0.1-0.4 mg, IV, see admin instructions, Luis Alfredo Harris MD sennosides-docusate sodium (SENNA-S) 8.6-50 mg per tablet 1 Tablet, 1 Tablet, Oral, BID PRN, Luis Alfredo Harris MD atorvastatin (LIPITOR) tablet 80 mg, 80 mg, Oral, daily BEDTIME, Luis Alfredo Harris MD, 80 mg at 12/28/242028 dextrose 5 % - sodium chloride 0.9 % infusion, , IV, see admin instructions, Luis Alfredo Harris MD dextrose 50% (D50) syringe 12.5 Gram, 12.5 Gram, IV, see admin instructions, Lius Alfredo Harris MD dextrose 50% (D50) syringe 25 Gram, 25 Gram, IV, see admin instructions, Luis Alfredo Harris MD glucagon HCL 1 mg/mL injection 1 mg, 1 mg, IM, see admin instructions, Luis Alfredo Harris MD insulin glargine (LANTUS) injection 15 Units, 0.15 Units/kg, subCUT, daily BEDTIME, Luis Alfredo Harris MD insulin lispro (HumaLOG,ADMELOG) injection 0-12 Units, 0-12 Units, subCUT, TID WITH meals, Luis Alfredo Harris MD, 8 Units at 12/29/24 1152 insulin lispro (HumaLOG,ADMELOG) injection 0-6 Units, 0-6 Units, subCUT, daily BEDTIME, Luis Alfredo Harris MD aspirin (ECOTRIN EC) tablet 81 mg, 81 mg, Oral, daily, Luis Alfredo Harris MD, 81 mg at 12/29/24 09 clopidogreL (PLAVIX) tablet 75 mg, 75 mg, Oral, daily, Luis Alfredo Harris MD, 75 mg at 12/29/24902 amLODIPine (NORVASC) tablet 10 mg, 10 mg, Oral, daily, Luis Alfredo Harris MD, 10 mg at 12/29/24 0904 hydrALAZINE (APRESOLINE) tablet 100 mg, 100 mg, Oral, TID, Luis Alfredo Harris MD, 100 mg at 12/29/24902 metoprolol tartrate (LOPRESSOR) tablet 50 mg, 50 mg, Oral, BID, Luis Alfredo Harris MD, 50 mg at 12/29/24902 valsartan (DIOVAN) tablet 160 mg, 160 mg, Oral, daily EARLY, Luis Alfredo Harris MD, 160 mg at 12/29/24902 gabapentin (NEURONTIN) capsule 200 mg, 200 mg, Oral, TID, Luis Alfredo Harris MD, 200 mg at 903 nitroglycerin (NITRO-BID) 2 % topical ointment 1 Inch, 1 Inch, Topical, every 6 hours, Gisela Harris FNP, 1 Inch at 12/29/24 0000 Primary discharge diagnosis: NSTEMI (non-ST elevated myocardial infarction) ([facility]) Other active medical issues also addressed during this admission: Active Hospital Problems Diagnosis Chronic anemia ESRD (end stage renal disease) on dialysis ([facility]) Ischemic dilated cardiomyopathy ([facility]) Chronic combined systolic and diastolic CHF (congestive heart failure) ([facility]) ESRD on hemodialysis ([facility]) History of coronary artery stent placement History of stroke without residual deficits NSTEMI (non-ST elevated myocardial infarction) ([facility]) Type 2 diabetes mellitus with hyperglycemia ([facility]) Essential hypertension Diabetic polyneuropathy associated with type 2 diabetes mellitus ([facility]) GERD (gastroesophageal reflux disease) Mixed hyperlipidemia Resolved Hospital Problems No resolved problems to display. ASSESSMENT AND PLAN: Stable angina History of CAD status post PCI -Presented for left-sided chest pain radiating to neck and back accompanied by diaphoresis -EKG showed nonspecific ST segment changes as per my read. -Troponins trended flat. -Has history of CAD with prior h/o PCI and stenting -Currently chest pain-free Plan: -Continue aspirin, Plavix and statin. -Continue heparin drip considering classic angina presentation -Continue Nitropaste -Telemetry monitoring. -EKG as needed for worsening chest pain - Cardiology evaluated; plans for cardiac catheterization on Tuesday Diabetic polyneuropathy Lumbar radiculopathy -Continue gabapentin HTN -Continue hydralazine 50 mg 3 times daily, valsartan 160 mg daily, amlodipine 5 mg daily, metoprolol tartrate 50 mg twice daily CAD s/p PCI HLD History of CVA -Continue aspirin 81 mg daily, Plavix 75 mg daily, atorvastatin 80 mg daily at bedtime. T2DM -Has history of type 2 diabetes mellitus. Currently on Lantus 20 units along with sliding scale insulin -Recent HbA1c 8.2 Plan: -Hyperglycemia pathway initiated. -Starting on insulin Lantus 15 units at bedtime along with sliding scale -Monitor insulin requirement and adjust insulin regimen based on requirements. Chronic combined systolic and diastolic heart failure -Recent 2D echo from 10/21/2024 showed EF of 35 to 40% with grade 2 diastolic dysfunction -On metoprolol tartrate, losartan - Makes very minimal urine. Plan: -Continue metoprolol tartrate and valsartan - Monitor intake and output - Fluid management with dialysis - Low-salt diet and fluid restriction ESRD on HD -Currently on Tuesday schedule. -Last dialysis session due to missing dialysis on Tuesday. - Due for dialysis today Plan: -Continue dialysis. -Nephrology consulted. -Renally dose medications -Will discuss with vascular surgery if they wish to perform AV fistula dilation while inpatient Chronic anemia -Anemia likely in the setting of ESRD. - Monitor hemoglobin - Transfuse if hemoglobin drops less than 7. Code status: Full Code Outpatient follow up: PCP, cardiology Anticipated Disposition Location: Final Discharge Disposition: Home or Self Care Timeframe: 01/01/2025 Criteria: Cardiac catheterization results Patient's understanding of illness: Fair Primary family contact: MDM complexity: [] Mild [x] Moderate [] High Bharati Jarrell MD 12/29/2024, 1:17 PM * Nir Toney V., PHARMACIST - 12/28/2024 1:19 AM CDT RX ANTICOAG MONITORING ORDERS Pharmacy to order, review, and report clinically significant changes in lab per [facility] Anticoagulation Protocol as follows: Orders for dosing changes and follow-up labs will be signed ???Per Protocol?? in Epic. The name ofthe provider signed on the follow-up orders for cosignature will be assigned as follows: Orders placed by members of the Family Counselor or Hospitalist physician groups: If the original [...] order appropriate labs as indicated by the [facility] Anticoagulation Monitoring policy located on [facility] intranet, unless already ordered. The medications [...] This policy is in compliance with the JCAHO National Patient Safety Goal 3E and authorized by the [facility] Pharmacy and Therapeutics Committee. Nir Toney, PHARMACIST Cosigned by Richard Esparza MD at 12/28/2024 3:19 AM CDT documented in this encounter H&P Notes * Davion Mcconnell MD - 01/01/2025 1:24 PM CDT VASCULAR & ENDOVASCULAR SURGERY [place] HISTORY & PHYSICAL HISTORY OF PRESENT ILLNESS: Ida Morelos is a 64 y.o. male who presents with pulsatile LUE AVG & arm swelling. PAST MEDICAL HISTORY: Past Medical History: Diagnosis Date Calculus of kidney Congestive heart failure (CMS/HCC) Coronary artery disease CRI (chronic renal insufficiency) Diabetes mellitus (CMS/HCC) Difficult intravenous access GERD (gastroesophageal reflux disease) Hyperlipidemia Hypertension Myocardial infarction (CMS/HCC) 2018 Obstructive sleep apnea CPAP not indicated at present time Stroke (CMS/HCC) TIA (transient ischemic attack) PAST SURGICAL HISTORY: Past Surgical History: Procedure Laterality Date HX KNEE REPLACEMENT Right NOT a replacement [place] CRTJ ARVEN FSTL XCP DIR ARVEN ANAST NONAUTOG GRF Left 11/05/2024 ARTERIOVENOUS GRAFT INSERTION performed by Esme Vail MD at [facility] MAIN OR FAMILY HISTORY: Family History Problem Relation Name Age of Onset Kidney Disease Father Heart Disease Mother Heart Disease Maternal Grandmother Heart Disease Maternal Grandfather CURRENT MEDICATIONS: No current facility-administered medications on file prior to encounter. Current Outpatient Medications on File Prior to Encounter Medication Sig Dispense Refill amLODIPine (NORVASC) 10 mg tablet Take 1 Tablet by mouth daily. nitroglycerin (NITROSTAT) 0.4 mg Tablet, Sublingual Place 0.4 mg under tongue every 5 minutes as needed for Chest Pain. BD Malaika 2nd Gen Pen Needle 32 gauge x 5/32 Needle Inject 2 Each by subcutaneous injection 3 times daily as needed for Other (See Comment) (check blood sugar). hydrALAZINE (APRESOLINE) 100 mg Tablet tablet Take 100 mg by mouth every 8 hours. atorvastatin (LIPITOR) 80 mg tablet Take 80 mg by mouth daily at bedtime. valsartan (DIOVAN) 160 mg tablet Take 160 mg by mouth daily in the morning. clopidogrel bisulfate (CLOPIDOGREL ORAL) Take 75 mg by mouth daily. aspirin (ECOTRIN EC) 81 mg Tablet, Delayed Release (E.C.) Take 81 mg by mouth daily. metoprolol tartrate (LOPRESSOR) 50 mg tablet Take 50 mg by mouth 2 times daily. insulin glargine (LANTUS) 100 unit/mL injection Inject 20 Units by subcutaneous injection daily with breakfast. gabapentin (NEURONTIN) 300 mg capsule Take 1 Capsule (300 mg) by mouth 3 times daily. 90 Capsule 3 acetaminophen (TYLENOL) 500 mg Capsule Take 1 Capsule (500 mg) by mouth every 6 hours as needed forPain, Severe or Pain, Moderate. 30 Capsule 0 insulin aspart U-100 (NovoLOG) 100 unit/mL vial Inject 0-6 Units by subcutaneous injection daily. ALLERGIES: No Known Allergies SOCIAL HISTORY: Social History Socioeconomic History Marital status: Spouse name: Not on file Number of children: Not on file Years of education: Not on file Highest education level: Not on file Occupational History Not on file Tobacco Use Smoking status: Former Types: Cigarettes, Cigars Start date: 08/21/1975 Smokeless tobacco: Not on file Vaping Use Vaping status: Never Used Substance and Sexual Activity Alcohol use: Not Currently Drug use: Not Currently Types: Marijuana Sexual activity: Not on file Other Topics Concern Not on file Social History Narrative Not on file Social Drivers of Health Food Insecurity: Not on file (10/20/2024) Transportation Needs: No Transportation Needs (10/20/2024) Transportation Needs Patient needs follow up regarding:: 1 Feeling Safe: Not At Risk (12/28/2024) Feeling Safe Patient has indicated abuse: : No Housing Stability: High Risk (02/21/2024) Received from [employer] Housing Stability Vital Sign Unable to Pay for Housing in the Last Year: Yes Number of Times Moved in the Last Year: 0 Homeless in the Last Year: Yes REVIEW OF SYSTEMS: A complete review of systems was obtained, & negative except for those mentioned in the HPI above VITAL SIGNS: BP 132/68 (BP Location: Right leg, Patient Position (BP): Supine) Pulse 66 Temp 97.3 ??F (36.3 ??C) (Oral) Resp 20 Ht 5' 9 (1.753 m) Wt 100.3 kg (221 lb 2 oz) SpO2 99% BMI32.65 kg/m?? PHYSICAL EXAM: Constitutional: Well nourished, no signs of distress Neurologic: Alert & oriented to person/place/time, mental status normal HENT: Non icteric sclerae, Normocephalic and atraumatic. Extraocular motor intact. Lymphadenopathy: No cervical, supraclavicular or axillary adenopathy Cardiovascular: Normal rate, regular rhythm Pulmonary/Chest: No respiratory distress. Non-labored work of breathing Abdominal: Soft. No abdominal distension or tenderness. Musculoskeletal: Normal range of motion. Extremities: No edema or cyanosis LABORATORY: I personally reviewed & assessed the most recent labs available for this patient IMAGING & DIAGNOSTIC EVALUATION: I personally reviewed & assessed the imaging & vascular lab studies relevant for this patient ASSESSMENT & PLAN: Ida Morleos is presenting with pulsatile LUE AVG & arm swelling, concerning for venous outflow obstruction/stenosis. - LUE fistulagram - return to medicine floor post procedure Signed: Davion Mcconnell DO, RPVI Vascular & Endovascular Surgery [facility] [place] * Luis Alfredo Harris MD - 12/28/2024 3:53 AM CDT Images from the original note were not included. Your life is our life's work [facility] Hospitalist-Luis Alfredo Harris MD History and physical- date of admission: 12/28/2024 Patient name: Ida Morelos Date of : 1960 CSN number: [id number] PCP: No primary care provider on file. Chief Complaint: Chief Complaint Patient presents with Chest Pain History of present illness: Pt seen and examined at the bedside Ida Morelos is a 64 y.o. male with PHM of T2DM, HTN, HLD, ESRD on HD, CAD status post PCI, CVA without residual deficits, diabetic polyneuropathy, combined systolic and diastolic heart failure,lumbar radiculopathy, GERD who was transferred from [facility] ER to [facility] ED on 12/2024 for further management of chest pain. He presented there with complaints of chest pain radiating to the neck and mid back that started around 6 PM which did not resolve with sublingual nitroglycerin. His initial troponin was at 182 and a2-hour troponin was at 171. He was given heparin bolus and was started on heparin drip. He was alsostarted on nitro drip. They transferred the patient to our ER for further management. On arrival, Vitals significant for slightly elevated blood pressure of 184/74 mmHg. Nitro drip was stopped and Nitropaste was placed. Labs revealed anemia with a hemoglobin of 9.9. Leukopenia with a WBC of 4.1. Troponins trended flatat 182-171-153. Glucose at 208. Heparin drip was continued. Hospitalist was consulted for admission and further management. Spoke with ER physician over the phone and discussed the current ER course. Examined the patient at bedside. He was comfortably sleeping. He reports that around 6 PM while he was resting, he started having sharp pain in the substernal region more on the left side radiating to the neck and into the mid back. He reports that the pain was constant and was also associated with diaphoresis. Denies any palpitations or shortness of breath. He reports that the pain was similar to his previous episode of [place] for which he had 2 stents placed in [facility]. Denies cough, sputum production, fever, chills. He reports that he missed his dialysis session on Tuesday for medical appointment and had a catch-up session on . Past medical history: Past Medical History: Diagnosis Date Calculus of kidney Congestive heart failure ([facility]) Coronary artery disease CRI (chronic renal insufficiency) Diabetes mellitus ([facility]) Difficult intravenous access GERD (gastroesophageal reflux disease) Hyperlipidemia Hypertension Myocardial infarction ([facility]) 2019 Obstructive sleep apnea CPAP not indicated at present time Stroke ([facility]) TIA (transient ischemic attack) Active chronic medical issues that patient has been followed for as outpatient: Patient Active Problem List Diagnosis Code Type 2 diabetes mellitus with hyperglycemia [place] E11.65 Acute on chronic congestive heart failure ([facility]) I50.9 Accelerated hypertension I10 Essential hypertension I10 GERD (gastroesophageal reflux disease) K21.9 Mixed hyperlipidemia E78.2 TIA (transient ischemic attack) G45.9 NSTEMI (non-ST elevated myocardial infarction) ([facility]) I21.4 Hyperglycemia due to diabetes mellitus ([facility]) E11.65 Elevated d-dimer R79.89 Large pleural effusion J90 Diabetic polyneuropathy associated with type 2 diabetes mellitus ([facility]) E11.42 ESRD on hemodialysis ([facility]) N18.6, Z99.2 Lumbar radiculopathy, acute M54.16 Syncope R55 Atherosclerosis of [place] coronary artery of [place] heart without angina pectoris I25.10 History of coronary artery stent placement Z95.5 Hypertensive urgency I16.0 History of stroke without residual deficits Z86.73 Carpal tunnel syndrome, right G56.01 Chronic combined systolic and diastolic CHF (congestive heart failure) ([facility]) I50.42 Spinal stenosis of lumbar region with neurogenic claudication M48.062 Weakness of right lower extremity R29.898 Weakness of right upper extremity R29.898 Stable angina I20.89 Chronic anemia D64.9 Past surgical history: Past Surgical History: Procedure Laterality Date HX KNEE REPLACEMENT Right NOT a replacement [place] CRTJ ARVEN FSTL XCP DIR [place] ANAST NONAUTOG GRF Left 11/05/2024 ARTERIOVENOUS GRAFT INSERTION performed by Esme Vail MD at [facility] MAIN OR Current medications: Prior to Admission Medications Prescriptions Last Dose Informant Patient Reported? Taking? acetaminophen (TYLENOL) 500 mg Capsule No No Sig: Take 1 Capsule (500 mg) by mouth every 6 hours as needed for Pain, Severe or Pain, Moderate. albuterol sulfate HFA 90 mcg/actuation aerosol inhaler Yes No Sig: Take 2 Puffs by inhalation every 6 hours as needed. amLODIPine (NORVASC) 5 mg tablet Yes No Sig: Take 10 mg by mouth daily. aspirin (ECOTRIN EC) 81 mg Tablet, Delayed Release (E.C.) Yes No Sig: Take 81 mg by mouth daily. atorvastatin (LIPITOR) 80 mg tablet Yes No Sig: Take 80 mg by mouth daily at bedtime. clopidogrel bisulfate (CLOPIDOGREL ORAL) Yes No Sig: Take 75 mg by mouth daily. furosemide (LASIX) 40 mg tablet Yes No Sig: Take 40 mg by mouth daily. gabapentin (NEURONTIN) 300 mg capsule No No Sig: Take 1 Capsule (300 mg) by mouth 3 times daily. hydrALAZINE (APRESOLINE) 50 mg tablet No No Sig: Take 1 Tablet (50 mg) by mouth 3 times daily. 2 tablets 3 times a day. Patient taking differently: Take 100 mg by mouth 3 times daily. 2 tablets 3 times a day. insulin aspart U-100 (NovoLOG) 100 unit/mL vial Yes No Sig: Inject 0-6 Units by subcutaneous injection daily. insulin glargine (LANTUS) 100 unit/mL injection Yes No Sig: Inject 20 Units by subcutaneous injection one time only. metoprolol tartrate (LOPRESSOR) 50 mg tablet Yes No Sig: Take 50 mg by mouth 2 times daily. oxyCODONE-acetaminophen (PERCOCET) 5-325 mg tablet No No Sig: Take 1 Tablet by mouth every 4 hours as needed for Pain, Moderate. Max Daily Amount: 6 Tablets valsartan (DIOVAN) 160 mg tablet Yes No Sig: Take 160 mg by mouth daily in the morning. Facility-Administered Medications Last Administration Doses Remaining ciprofloxacin HCl (CIPRO) tablet 500 mg None recorded 1 Allergies and intolerances: No Known Allergies Social history: Social History Socioeconomic History Marital status: Spouse name: Not on file Number of children: Not on file Years of education: Not on file Highest education level: Not on file Occupational History Not on file Tobacco Use Smoking status: Former Types: Cigarettes, Cigars Start date: 08/21/1975 Smokeless tobacco: Not on file Vaping Use Vaping status: Never Used Substance and Sexual Activity Alcohol use: Not Currently Drug use: Not Currently Types: Marijuana Sexual activity: Not on file Other Topics Concern Not on file Social History Narrative Not on file Social Drivers of Health Food Insecurity: Not on file (10/20/2024) Transportation Needs: No Transportation Needs (10/20/2024) Transportation Needs Patient needs follow up regarding:: 1 Feeling Safe: Not At Risk (12/28/2024) Feeling Safe Patient has indicated abuse: : No Housing Stability: High Risk (02/21/2024) Received from [employer] Housing Stability Vital Sign Unable to Pay for Housing in the Last Year: Yes Number of Times Moved in the Last Year: 0 Homeless in the Last Year: Yes Family History: Family History Problem Relation Name Age of Onset Kidney Disease Father Heart Disease Mother Heart Disease Maternal Grandmother Heart Disease Maternal Grandfather ROS: Review of Systems Constitutional: Negative for chills, fever and malaise/fatigue. HENT: Negative for sore throat. Eyes: Negative for blurred vision. Respiratory: Negative for cough, sputum production and shortness of breath. Cardiovascular: Positive for chest pain. Negative for palpitations and leg swelling. Gastrointestinal: Negative for abdominal pain, diarrhea, nausea and vomiting. Neurological: Negative for dizziness, sensory change, speech change, focal weakness, seizures, lossof consciousness, weakness and headaches. OBJECTIVE: Temp (24hrs), Av.7 ??F (36.5 ??C), Min:97.7 ??F (36.5 ??C), Max:97.7 ??F (36.5 ??C) BP 129/60 Pulse 69 Temp 97.7 ??F (36.5 ??C) (Oral) Resp 13 Wt 100 kg (220 lb 7.4 oz) FoL435% BMI 32.56 kg/m?? No intake or output data in the 24 hours ending 12/28/24556 Last documented weight: Weight: 100 kg (220 lb 7.4 oz) (12/28/2499) EXAM: General: alert, in no distress Mental exam: Awake, oriented x 3 Neurologic: Grossly normal HEENT: atraumatic, Normocephalic, without obvious abnormality Lungs: clear to auscultation bilaterally, normal respiratory effort, decreased breath sounds in bilateral lower lobes Heart: normal rate, regular rhythm, normal S1, S2, no murmurs Abdomen: Soft, non-tender. Bowel sounds normal. No masses, no organomegaly. Extremities: Trace edema bilateral lower extremities noted. Skin: Dialysis catheter noted on the right side of the chest wall. Lab Data: Recent Labs 12/27/24200412/28/24108 WBC 4.6 4.1* HGB 10.7* 9.9* HCT 32.2* 29.7* PLT 232 202 Recent Labs 12/27/24200412/28/24108 NA 138 140 K 4.1 3.9 CL 98 101 CO2 28 26 CA 9.3 8.7* BUN 36* 40* CREAT 4.33* 4.42* GLUCOSE 206* 208* Recent Labs 12/27/242004 TOTALPROTEIN 7.2 ALBUMIN 4.1 BILITOTAL 0.4 ALKPHOS 107 AST 18 ALT 12 Recent Labs 12/28/24108 INR 1.1 PT 14.4 EKG: Personally interpreted EKGs. EKG from OSH revealed subtle ST elevation in lead V2. T wave inversions noted in leads aVR, aVL. Repeat EKG which was obtained here showed subtle elevation in V2 without any reciprocal changes. Left axis deviation noted. T wave inversions noted similar to previous EKG. CXR: Images personally reviewed by me shows mild pulmonary vascular congestion. Small to moderate-sized effusion noted on the left side with associated atelectasis noted. Dialysis catheter noted withthe tip ending in the sinoatrial junction. Imaging Results XR CHEST PA OR AP 1 VW (In process) Result time 12/28/24 02:05:16 Primary diagnosis: Stable angina Other active medical issues Active Hospital Problems Diagnosis Stable angina Chronic anemia Chronic combined systolic and diastolic CHF (congestive heart failure) ([facility]) ESRD on hemodialysis ([facility]) History of coronary artery stent placement History of stroke without residual deficits Type 2 diabetes mellitus with hyperglycemia ([facility]/HCC) Essential hypertension Diabetic polyneuropathy associated with type 2 diabetes mellitus ([facility]) GERD (gastroesophageal reflux disease) Mixed hyperlipidemia Resolved Hospital Problems No resolved problems to display. ASSESSMENT AND PLAN: 64 y.o. male with PHM of T2DM, HTN, HLD, ESRD on HD, CAD status post PCI, CVA without residual deficits, diabetic polyneuropathy, combined systolic and diastolic heart failure, lumbar radiculopathy, GERD is being admitted for further evaluation of chest pain. Stable angina History of CAD status post PCI -Presented for left-sided chest pain radiating to neck and back accompanied by diaphoresis -EKG showed nonspecific ST segment changes as per my read. -Troponins trended flat. -Has history of CAD with prior h/o PCI and stenting -Currently chest pain-free Plan: -Continue aspirin, Plavix and statin. -Continue heparin drip considering classic angina presentation -Continue Nitropaste -Telemetry monitoring. -Trend troponin -EKG as needed for worsening chest pain -Cardiology consulted. -Follow-up lipid profile, TSH, A1c Diabetic polyneuropathy Lumbar radiculopathy -Continue gabapentin HTN -Continue hydralazine 50 mg 3 times daily, valsartan 160 mg daily, amlodipine 5 mg daily, metoprolol tartrate 50 mg twice daily CAD s/p PCI HLD History of CVA -Continue aspirin 81 mg daily, Plavix 75 mg daily, atorvastatin 80 mg daily at bedtime. T2DM -Has history of type 2 diabetes mellitus. Currently on Lantus 20 units along with sliding scale insulin -Recent HbA1c 8.2 Plan: -Hyperglycemia pathway initiated. -Starting on insulin Lantus 15 units at bedtime along with sliding scale -Monitor insulin requirement and adjust insulin regimen based on requirements. Chronic combined systolic and diastolic heart failure -Recent 2D echo from 10/21/2024 showed EF of 35 to 40% with grade 2 diastolic dysfunction -On metoprolol tartrate, losartan - Makes very minimal urine. Plan: -Continue metoprolol tartrate and valsartan - Monitor intake and output - Fluid management with dialysis - Low-salt diet and fluid restriction ESRD on HD -Currently on Tuesday schedule. -Last dialysis session due to missing dialysis on Tuesday. - Due for dialysis today Plan: -Continue dialysis. -Nephrology consulted. -Renally dose medications Chronic anemia -Anemia likely in the setting of ESRD. - Monitor hemoglobin - Transfuse if hemoglobin drops less than 7. Current diet : DIET NPO Sips w/Meds, Code status and goals of care was discussed with the patient, and code status was updated in the chart. Code Status: Full Code Ambulatory status: Ambulates independently at baseline DVT prophylaxis: On heparin drip Admission status; inpatient telemetry This patient is admitted as inpatient. I have a reasonable expectation that this patient requires hospital care that crosses 2 midnights supported by complex medical factors documented in the medicalrecord. On the day of the visit, I spent 81 minutes providing care to this patient including Preparing to see the patient, Obtaining and/or reviewing separately obtained history, Performing a medically appropriate examination and/or evaluation, Counseling and educating the patient/family/caregiver, Ordering medications, tests or procedures, Documenting clinical information in the medical record, Referring and communication with other health care assistant (not separately reported), Independently interpreting results and communicating results to the patient/family/caregiver (not separately reported), Care coordination (not separately reported), and Excluding time spent performing separately billed procedures and/or services. Luis Alfredo Harris MD 12/28/2024 5:57 AM documented in this encounter Procedure Notes * Mahamed Triana RN - 12/31/2024 1:48 PM CDT Renal Replacement Therapy Summary Procedure: Hemodialysis in Chair Dialyzer: RVC Access: R IJ Blood Flow: 400 ml/min Procedure Time: 4 hours Blood Volume Processed: 94.3 liters Ultrafiltration Volume: 1200 ml with 500 ml rinse back Anticoagulation: None (ordered) Dry Weight: 96 kg PreWeight: 96.5 kg PostWeight: 96 kg Post VS: BP:144/54 Pulse: 66 Temp:97.3 SpO2: 97% Dialyzer Cleared(%): 98% with minimal clotting Complications: Hypotension. NS fluid bolus given 500 ml Report sent to: 4A Primary Care Nurse * Jessica Luz NP - 12/31/2024 10:08 AM CDT PROCEDURE: Intermittent Hemodialysis INDICATION: ESRD Procedure: Utilizing the patient's right IJ tunneled hemodialysis catheter as a vascular access, the patient was initiated on hemodialysis. Dialysis is planned for 4 hours. Blood flow of 400 ml per minute and Dialysate flow of 600 ml per minute were prescribed. The bath used was 3 mEq/L potassium, 3 mEq/L calcium, 140 mEq/L sodium and 35 mEq/L bicarbonate. UF goal: 3 L, BP stable. No complications have been encountered to this point. I was present during dialysis, and was available for the entirety of the dialysis treatment. Review of Systems Constitutional: Negative for chills and fever. Respiratory: Negative for cough and shortness of breath. Cardiovascular: Negative for chest pain. Gastrointestinal: Negative for nausea and vomiting. Medications Reviewed in [facility] Physical Exam: BP (!) 120/97 Pulse 63 Temp 97.5 ??F (36.4 ??C) Resp 13 Ht 5' 9 (1.753 m) Wt 96.5 kg (212 lb 11.9 oz) SpO2 99% BMI 31.42 kg/m?? Physical Exam General:NAD, Alert and O X 3 Respiratory: No respiratory distress CV: Trace leg edema berenice Skin: W/D/I Neuro: Alert, no overt neuro deficits appreciated Labs: Reviewed in [facility] Lab Results Component Value Date/Time NA 134 (L) 12/31/2024 04:42 AM K 4.6 12/31/2024 04:42 AM CL 98 12/31/2024 04:42 AM CO2 24 12/31/2024 04:42 AM CA 8.7 (L) 12/31/2024 04:42 AM BUN 62 (H) 12/31/2024 04:42 AM CREAT 6.43 (H) 12/31/2024 04:42 AM GLUCOSE 199 (H) 12/31/2024 04:42 AM ANIONGAP 12 12/31/2024 04:42 AM Lab Results Component Value Date/Time WBC 4.3 (L) 12/31/2024 04:42 AM HGB 9.8 (L) 12/31/2024 04:42 AM HCT 29.7 (L) 12/31/2024 04:42 AM PLT 200 12/31/2024 04:42 AM MCV 87.6 12/31/2024 04:42 AM Lab Results Component Value Date/Time CA 8.7 (L) 12/31/2024 04:42 AM Lab Results Component Value Date/Time TOTALPROTEIN 7.2 12/27/2024 08:05 PM ALBUMIN 4.1 12/27/2024 08:05 PM Assessment and Plan: ESRD: - On hemodialysis at [facility] dialysis unit on Tuesday, Tuesday and Tuesday. - Will continue to see on hemodialysis days 2. Anemia of ESRD: - Hgb < 10. - dosed epogen stimulating agent 12/28/24 Jessica Luz NP [facility] 12/31/24, 10:08 AM Cosigned by Ottoniel Best MD at 12/31/2024 5:22 PM CDT * Corina Armando RN - 12/28/2024 2:09 PM CDT Renal Replacement Therapy Summary Procedure: Hemodialysis in Bed Dialyzer: RVC Access: RT I*J Tunnel cath Blood Flow: 400 ml/min Procedure Time: 4 hours Blood Volume Processed: 90.8 liters Ultrafiltration Volume: 3500 ml with 500 ml rinse back Anticoagulation: Heparin gtt (ordered) Dry Weight: TBD kg PreWeight: NA kg PostWeight: NA kg Post VS: BP:138/69 Pulse: 72 Temp:97.4 SpO2: 97 Dialyzer Cleared(%): 99% with no clotting Complications: no * Treasure Garza MD - 12/28/2024 12:06 PM CDT PROCEDURE: Intermittent Hemodialysis INDICATION: ESRD Procedure: Utilizing the patient's right IJ tunneled hemodialysis catheter as a vascular access, the patient was initiated on hemodialysis. Dialysis is planned for 4 hours. Blood flow of 400 ml per minute and Dialysate flow of 600 ml per minute were prescribed. The bath used was 3 mEq/L potassium, 3 mEq/L calcium, 140 mEq/L sodium and 35 mEq/L bicarbonate. UF goal: 3 L, BP stable. No complications have been encountered to this point. I was present during dialysis, and was available for the entirety of the dialysis treatment. Review of Systems Constitutional: Negative for chills and fever. Respiratory: Negative for cough and shortness of breath. Cardiovascular: Positive for chest pain. Gastrointestinal: Negative for nausea and vomiting. Medications Reviewed in MAR Physical Exam: BP (!) 168/79 Pulse 74 Temp 97.7 ??F (36.5 ??C) (Temporal) Resp 20 Ht 5' 9 (1.753 m) Wt 100 kg (220 lb 7.4 oz) SpO2 97% BMI 32.56 kg/m?? Physical Exam General:NAD, Alert and O X 3 HEENT:NCAT, PERRLA Respiratory: No respiratory distress CV: Trace leg edema berenice Skin: W/D/I Neuro: Alert, no overt neuro deficits appreciated Labs: Reviewed in [facility] Lab Results Component Value Date/Time NA 140 12/28/2024 01:09 AM K 3.9 12/28/2024 01:09 AM CL 101 12/28/2024 01:09 AM CO2 26 12/28/2024 01:09 AM CA 8.7 (L) 12/28/2024 01:09 AM BUN 40 (H) 12/28/2024 01:09 AM CREAT 4.42 (H) 12/28/2024 01:09 AM GLUCOSE 208 (H) 12/28/2024 01:09 AM ANIONGAP 13 12/28/2024 01:09 AM Lab Results Component Value Date/Time WBC 4.1 (L) 12/28/2024 01:09 AM HGB 9.9 (L) 12/28/2024 01:09 AM HCT 29.7 (L) 12/28/2024 01:09 AM PLT 202 12/28/2024 01:09 AM MCV 86.1 12/28/2024 01:09 AM Lab Results Component Value Date/Time CA 8.7 (L) 12/28/2024 01:09 AM Lab Results Component Value Date/Time TOTALPROTEIN 7.2 12/27/2024 08:05 PM ALBUMIN 4.1 12/27/2024 08:05 PM Assessment and Plan: ESRD: On hemodialysis at [facility] dialysis unit on Tuesday, Tuesday and Tuesday. He was seen and evaluated on hemodialysis today. Stable tx. On 3 K bath ultrafiltration 3 L. Check phosphorous with next labs. Will continue to see on hemodialysis days Tuesday, Tuesday and Tuesday 2. Anemia of ESRD: Hgb < 10. Will dose with epogen stimulating agent today. Treasure Garza MD [facility] 12/28/24, 12:07 PM documented in this encounter Consult Notes * Nigel Ibarra RN - 01/01/2025 7:11 AM CDT Cardiac rehab order noted and initiated for: Problem: NSTEMI, s/p PTCA Plan: Provide patient and/or family education for above problem prior to discharge. Goal: Patient and/or family will verbalize understanding of the education. [place]: [employer] Primary Campground Manager: Dr. Blue / [place] [facility] * Latasha Torres RCP - 12/29/2024 8:09 AM CDT Cardiac rehab order noted and initiated for: Problem: NSTEMI, ICM, LHC pending Plan: Provide patient and/or family education for above problem prior to discharge. Goal: Patient and/or family will verbalize understanding of the education. [place]: [employer] Campground Manager: Dr. Blue / [place] [facility] * Gisela Harris FNP - 12/28/2024 10:56 AM CDTAssociated Order(s): IP CONSULT TO CARDIOLOGY CARDIOLOGY CONSULTATION [place], [place] Requesting Physician: Luis Alfredo Harris MD Primary Campground Manager: [place] [employer] Campground Manager: Dr. Blue Date of Admission: 12/28/2024 Today's Date: 12/28/2024 Reason for Consultation: chest pain HPI Ida Morelos is a 64 y.o. male with a history of ESRD on HD, DM II, Dyslipidemia who had normal coronary angiogram 2016 and 2020 however he had TN with PCI x2 in [place] back in June. EF 45%. He presents on this occasion with sudden onset substernal chest pressure radiating to left neck andshoulder; pain not relieved by 2 SL NTG so he presented for care and was placed on a NTG gtt and given morphine with relief after about 4 hours total. He denies any further chest pain or other cv comp laints today. Dialysis is scheduled for this am. Troponin 181, 171, 153. NtproBNP 29710 EKG NSR 75 bpm. He was placed on heparin gtt for possible NSTEMI. Past Medical History: Diagnosis Date Calculus of kidney Congestive heart failure (CMS/HCC) Coronary artery disease CRI (chronic renal insufficiency) Diabetes mellitus (CMS/HCC) Difficult intravenous access GERD (gastroesophageal reflux disease) Hyperlipidemia Hypertension Myocardial infarction (CMS/HCC) 2019 Obstructive sleep apnea CPAP not indicated at present time Stroke ([facility]/HCC) TIA (transient ischemic attack) Past Surgical History: Procedure Laterality Date HX KNEE REPLACEMENT Right NOT a replacement UT CRTJ ARVEN FSTL XCP DIR ARVEN ANAST NONAUTOG GRF Left 11/05/2024 ARTERIOVENOUS GRAFT INSERTION performed by Esme Vail MD at [facility] MAIN OR Facility-Administered Medications Prior to Admission Medication Dose Route Frequency Provider Last Rate Last Admin ciprofloxacin HCl (CIPRO) tablet 500 mg 500 mg Oral ONE time only Ella Lyoa FNP Medications Prior to Admission Medication Sig Dispense Refill Last Dose/Taking amLODIPine (NORVASC) 10 mg tablet Take 1 Tablet by mouth daily. 12/27/2024 Morning nitroglycerin (NITROSTAT) 0.4 mg Tablet, Sublingual Place 0.4 mg under tongue every 5 minutes as needed for Chest Pain. Taking As Needed BD Malaika 2nd Gen Pen Needle 32 gauge x 5/ Needle Inject 2 Each by subcutaneous injection 3 times daily as needed for Other (See Comment) (check blood sugar). Taking As Needed hydrALAZINE (APRESOLINE) 100 mg Tablet tablet Take 100 mg by mouth every 8 hours. 12/27/2024 Noon atorvastatin (LIPITOR) 80 mg tablet Take 80 mg by mouth daily at bedtime. Past Week Bedtime valsartan (DIOVAN) 160 mg tablet Take 160 mg by mouth daily in the morning. 12/27/2024 Morning clopidogrel bisulfate (CLOPIDOGREL ORAL) Take 75 mg by mouth daily. 12/27/2024 Morning aspirin (ECOTRIN EC) 81 mg Tablet, Delayed Release (E.C.) Take 81 mg by mouth daily. 12/27/2024 Morning metoprolol tartrate (LOPRESSOR) 50 mg tablet Take 50 mg by mouth 2 times daily. 12/27/2024 Morning insulin glargine (LANTUS) 100 unit/mL injection Inject 20 Units by subcutaneous injection daily with breakfast. 12/27/2024 Morning gabapentin (NEURONTIN) 300 mg capsule Take 1 Capsule (300 mg) by mouth 3 times daily. 90 Capsule 3 acetaminophen (TYLENOL) 500 mg Capsule Take 1 Capsule (500 mg) by mouth every 6 hours as needed forPain, Severe or Pain, Moderate. 30 Capsule 0 insulin aspart U-100 (NovoLOG) 100 unit/mL vial Inject 0-6 Units by subcutaneous injection daily. No Known Allergies Family History Problem Relation Name Age of Onset Kidney Disease Father Heart Disease Mother Heart Disease Maternal Grandmother Heart Disease Maternal Grandfather Social History Tobacco Use Smoking status: Former Types: Cigarettes, Cigars Start date: 08/21/1975 Smokeless tobacco: Not on file Substance Use Topics Alcohol use: Not Currently Review of Systems 14 point ROS negative or not pertinent with the exception of aforementioned in the HPI. Objective: BP (!) 157/100 Pulse 74 Temp 97.7 ??F (36.5 ??C) (Temporal) Resp 13 Ht 5' 9 (1.753 m) Wt100 kg (220 lb 7.4 oz) SpO2 98% BMI 32.56 kg/m?? Last documented weight: Weight: 100 kg (220 lb7.4 oz) (12/28/24 0644) General: A/O x 3, well nourished, in no acute distress Head/ Neck: Normocephalic, Neck supple, no JVD, no carotid bruits. Lungs: Respirations even and unlabored. Breath sounds clear to auscultation Heart: Regular rate and rhythm. Normal S1 and S2. Abdomen: soft and nontender, bowel sounds present Extremities: FERRER. Pulses palpable. No edema Skin: Warm, dry, intact. No obvious lesions or ecchymosis. Neuro/Musc: Normal muscle strength and tone. No focal deficits. Laboratory: Lab Results Component Value Date NA 140 12/28/2024 K 3.9 12/28/2024 CL 101 12/28/2024 CO2 26 12/28/2024 BUN 40 (H) 12/28/2024 CREAT 4.42 (H) 12/28/2024 CA 8.7 (L) 12/28/2024 @[LASTLIPIDS@ Lab Results Component Value Date WBC 4.1 (L) 12/28/2024 RBC 3.45 (L) 12/28/2024 HGB 9.9 (L) 12/28/2024 HCT 29.7 (L) 12/28/2024 PLT 202 12/28/2024 Lab Results Component Value Date PT 14.4 12/28/2024 No results found for: BNP Lab Results Component Value Date TSH 3.23 12/28/2024 TROPONIN T, BASELINE 5TH GEN Date Value Ref Range Status 12/27/2024 182 (HH) <=15 ng/L Final 10/12/2023 66 (H) <=15 ng/L Final 09/08/2023 144 (HH) <=15 ng/L Final 09/02/2023 95 (H) <=15 ng/L Final TROPONIN T, 2 HR 5TH GEN Date Value Ref Range Status 12/27/2024 171 (HH) <=15 ng/L Final 10/12/2023 58 (H) <=15 ng/L Final 09/08/2023 121 (HH) <=15 ng/L Final 09/02/2023 93 (H) <=15 ng/L Final DELTA 2HR TROPONIN T Date Value Ref Range Status 10/12/2023 -8 See Interp. Final 09/02/2023 -2 See Interp. Final TROPONIN T, 6 HR 5TH GEN Date Value Ref Range Status 12/28/2024 153 (HH) <=15 ng/L Final Assessment: Principal Problem: Stable angina Active Problems: Essential hypertension Mixed hyperlipidemia Overview: Identified By: Cayden Joyce Type 2 diabetes mellitus with hyperglycemia ([facility]) GERD (gastroesophageal reflux disease) NSTEMI (non-ST elevated myocardial infarction) ([facility]) Diabetic polyneuropathy associated with type 2 diabetes mellitus ([facility]) ESRD on hemodialysis ([facility]) History of coronary artery stent placement History of stroke without residual deficits Chronic combined systolic and diastolic CHF (congestive heart failure) ([facility]) Chronic anemia Plan: Plan C with possible PCI. Timing TBD as patient has dialysis this am. Continue dapt/statin/bb/ heparin gtt. CAD- TN with PCI Jun 2024 Ischemic cardiomyopathy- EF 45%. Continue current. ESRD- HD this am Dyslipidemia- continue high dose high intensity statin [facility] 12/28/24 Cosigned by Nabil Blue MD at 12/28/2024 2:17 PM CDT Associated attestation - Nabil Blue MD - 12/28/2024 2:17 PM CDT Patient independently interviewed & examined, medical records reviewed. See note by Gisela Harris for details. Mr. Morelos is a 64-year-old gentleman with a history of ESRD on dialysis, diabetes type 2, dyslipidemia, CAD with PCI in [place] in 07/16/2024 reported he had a TN and got 2 stents, ischemic cardiomyopathy LVEF from 10/21/2024 35-40%, mild to moderate aortic regurgitation. The patient presented with chest pain reported a pressure sensation return clinic relieved with nitroglycerin troponins were elevated 181, 171, 153 proBNP 15,927, chest x-ray with no significant vascular congestion. He denied any dyspnea on exertion or significant leg swelling but did report symptoms feeling somewhat similar apart from the chest pressure is new to when he had his heart attack in June 2024. He was admitted and being treated for NSTEMI. EKG normal sinus rhythm with no acute STchanges but did show evidence of prior septal injury. Echocardiogram done 10/21/2024 Summary and Conclusion: - Left ventricle: The cavity size is dilated. Wall thickness is increased in a pattern of mild LVH. Global systolic function is moderately reduced. The estimated ejection fraction is 35-40%. For Epic reporting: the left ventricular ejection fraction is 38% There is diffuse hypokinesis with regional variations. Regional wall motion difficult to determine but improved with echo contrast. Moderate diastolic dysfunction (grade II, pseudonormal filling pattern), suggestive of elevated LV filling pressures. The longitudinal strain is -12.6% with apical sparing (Normal range is -18 to -25).. - Right ventricle: The cavity size is normal. Systolic function is normal. Systolic pressure is not obtained. - Left atrium: The atrium is mildly dilated. - Aortic valve: There is mild to moderate regurgitation. - Pericardium: A minimal pericardial effusion and/or fat pad was identified. There are bilateral pleural effusions. BP (!) 157/72 Pulse 74 Temp 97.7 ??F (36.5 ??C) (Temporal) Resp 16 Ht 5' 9 (1.753 m) Wt 100 kg (220 lb 7.4 oz) SpO2 95% BMI 32.56 kg/m?? General appearance: No acute distress Skin: warm and dry Eyes: conjunctivae pink Ears, Nose, Throat: oropharynx moist Neck: supple, no JVD, normal carotid upstroke, no carotid bruits Lungs: clear to auscultation bilaterally Heart: normal S1 and S2, without murmurs, rubs or gallops; regular rhythm Abdomen: soft & nontender, normal BS present Extremities: Trace edema of the legs Neurologic: alert and oriented, normal affect Assessment: NSTEMI History of CAD with recent PCI in 07/16/2024 Ischemic cardiomyopathy LVEF 35 to 40% ESRD on dialysis Recommendations: - Admitted with chest pain elevated troponins no acute ST changes - Had PCI done at outside facility back in December 2024 - Has ischemic cardiomyopathy LVEF 35 to 40% appears well compensated laying flat without being short of breath - He is currently getting dialysis - Will try to get cardiac catheterization today but if not possible plan is for n.p.o. at midnight and catheterization tomorrow - Heparin drip -Nitropaste - Continue aspirin 81 mg p.o. daily and Plavix 75 mg p.o. daily since he had recent PCI -Lipitor 80 mg p.o. daily -He is on amlodipine 10 mg p.o. daily -He is on metoprolol 50 mg p.o. twice daily -Hydralazine 100 mg p.o. 3 times daily -He is on valsartan 160 mg p.o. daily, will defer to renal team monitor electrolytes keep potassiumnormal - Will get an updated echocardiogram Plan of care discussed with attending hospitalist Dr. Wesly Blue MD This documentation was created by [employer] induction furnace operator software (known for inherent induction furnace operator error) using Placed. Effort has been done to assure accuracy of induction furnace operator. Any obvious errors or omissions should be clarified with the author of the document. documented in this encounter OR Notes * Operative Report - Davion Mcconnell MD - 01/01/2025 2:01 PM CDT SECTION OF VASCULAR SURGERY & ENDOVASCULAR THERAPY [place], [place] Operative Note PATIENT NAME: Ida Melissap : 1960; AGE: 64 y.o.; SEX: M ; Date of Service: 01/01/25 Pre-operative Diagnosis: LUE swelling History of left arm AV-graft End stage renal disease on dialysis Post-operative Diagnosis: Same Procedures Performed: Monitored anesthesia care (see below) Ultrasound guided access left arm AV-graft Venogram INTEGRATED CAMPAIGN MANAGER axillary vein (6x40 balloon) Surgeons/Assistants: Davion Mcconnell DO - Primary Anesthesia: Monitored moderate conscious sedation by Dr. Davion Mcconnell with monitoring of respiratory rate, heart rate, blood pressure, end-tidal volume CO2 and oxygen saturation. IV sedation with 2mg of IV Versed, 50 mcg of Fentanyl. Local anesthetic with 1% lidocaine. Total sedation time: 20 minutes. Moderate (conscious) sedation was administered under the attending physician's direction, andcontinuous monitoring was performed by a trained nurse specialist. Indications: Presents with pulsatile LUE AVG & left arm swelling concerning for venous outflow stenosis. Alternative management options were discussed, including non-operative management. The patient voiced understanding of potential risks including stroke, , TN, cardiopulmonary failure, renal failure, hemorrhage, infection, damage to surrounding structures, nerve injury, possible need for reoperation. Procedure Detail: The patient was brought the to lab coordinator. The consent was confirmed with the patient & lab coordinator staff. The surgical site was prepped in the standard fashion. A timeout was performed. Ultrasound guided access distal LUE AVG using micropuncture system; exchanged for 6F short sheath over 0.035 wire. Through the sheath I performed angiogram of the AVG & the central venous system.This showed patent AVG. There was a high grade 90% stenosis at the venous anastomosis. The remaining peripheral & central venous system was widely patent including axillary vein, SCV, L innominate vein & SVC. Based on these findings I decided to proceed with further endovascular intervention. Using an 0.035 wire I was able to cross the venous anastomosis stenosis. I then treated this with a6x40 balloon angioplasty. Repeat angiogram demonstrated good result with < 30% residual stenosis. I concluded the procedure. The sheath was removed & I placed a U-stitch using 4-0 monocryl for hemostasis with good result. Endovascular Findings: See procedure details Contrast Used: 10 cc Radiation Dose: 35 mGy Fluoroscopy Time: 1.8 min Implants: none Blood Products Transfused: none Estimated Blood Loss: Minimal cc Complications:none Disposition: Return to medicine floor Condition: Good PLAN: Return to medicine floor AVG OK to use for dialysis Can be discharged from vascular surgery standpoint Electronically Signed: Davion Mcconnell DO Vascular Surgeon 01/01/2025 documented in this encounter ED Notes * Ava Palomares RN - 12/28/2024 8:36 AM CDT Report called to Jaden on 4A. AI chat sent. Transport arranged for pt to go upstairs. * Ava Palomares RN - 12/28/2024 7:35 AM CDT Report received from Naty AVILES. Assuming care of pt. Rounded and introduced self to pt. Pt restingwith eyes closed and wakes easily to voice. VSS. Call light in reach. Updated pt on plan of care. * Naty Barr RN - 12/28/2024 5:01 AM CDT Patient resting in bed with eyes closed, bilateral chest rise observed. Call light within reach. * Naty Barr RN - 12/28/2024 2:56 AM CDT Patient resting in bed with eyes closed, bilateral chest rise observed. Call light within reach. * Naty Barr RN - 12/28/2024 2:00 AM CDT Patient resting in bed, in no apparent distress. denies any needs. Call light within reach. * Naty Barr RN - 12/28/2024 1:06 AM CDT Pt presents to Ed via helicopter with chief complaint of chest pressure, onset 1800 yesterday. Was seen at [place] and started on nitro gtt and heparin gtt. EMS reports that patient had elevated troponins and elevation in lead V2 . Pt alert and oriented x 4. Airway patent, self-maintained with even, non-labored respirations. Skincolor normal for ethnicity, warm, dry and intact. Patient reports chest pain 6/10 on numerical scale and describes pain as pressure. Patient in personal clothing. ID band present. Patient in bed, rails up, in low position with wheels locked. Patient informed of plan of care and verbalized understanding and in agreement with plan of care, all questions answered. Comfort measures offered. Monitors on and audible. Pt placed on sensory scientist, pulse ox and blood pressure monitor. Call light at bedside. Pt encouraged to call with needs. * Richard Esparza MD - 12/28/2024 12:52 AM CDT Images from the original note were not included. HISTORY OF PRESENT ILLNESS History of Present Illness This is a 64-year-old male with a history of heart disease and dialysis presenting with chest pain.The patient arrived at the ED by car. The patient began experiencing chest pressure around 6:00 PM on 12/28/2024. He describes the pain as heavy, with a current pain level of 5.5 to 6 out of 10. The pain started while he was sitting and was accompanied by lightheadedness. He has a history of similar chest pain related to his heart condition. He has not undergone open heart surgery but had stents placed in 06/2024. His care is primarily managed at [place]. He is scheduled for a follow-up visit on Tuesday for a narrowed graft. The patient attempted to alleviate the discomfort with nitroglycerin, but it was ineffective, leading to his admission to [facility]. Despite receiving heparin, nitroglycerin, morphine, and a spirin, he continues to experience pain rated at 5 out of 10. He is currently on a heparin drip at 10 units/kg/h and a nitroglycerin drip at 20 mcg/min. A stress test conducted two weeks ago revealedan abnormality in the posterior part of his heart, prompting the initiation of nitroglycerin therapy. He notes that physical activity exacerbates his symptoms. The patient is a dialysis patient, with his last session being on 12/27/2024. His regular dialysis schedule is Tuesday, Tuesday, and Tuesday, but due to an appointment on Tuesday, he had a makeup session on . PAST SURGICAL HISTORY: Stents placement in 06/2024 Graft procedure at [place] SOCIAL HISTORY He does not smoke, drink alcohol, or use drugs. PAST MEDICAL HISTORY REVIEWED MEDICAL: Patient has a past medical history of Calculus of kidney, Congestive heart failure (CMS/HCC), Coronary artery disease, CRI (chronic renal insufficiency), Diabetes mellitus (CMS/HCC), Difficult intravenous access, GERD (gastroesophageal reflux disease), Hyperlipidemia, Hypertension, Myocardial infarction (CMS/HCC) (2019), Obstructive sleep apnea, Stroke (CMS/HCC), and TIA (transient ischemic attack). SURGICAL: Patient has a past surgical history that includes knee replacement (Right) and pr crtj arven fstl xcp dir jeni cotter nonautog grf (Left, 11/05/2024). ALLERGIES Patient has no known allergies. PHYSICAL EXAM INITIAL VS BP: (!) 184/74 (12/28/2499), Heart Rate: 77 bpm (12/28/2499), Resp: 9 (12/28/2499), Pulse:77 (12/28/2499), Temp: 97.7 ??F (36.5 ??C) (12/28/2499), Temp src: Oral (12/28/2499), SpO2: 99 % (12/28/2499), Height: (not recorded), Weight: 100 kg (220 lb 7.4 oz) (12/28/2499), BMI (Calculated): (!) 32.54 (12/28/2499) No LMP for male patient. Physical Exam Vitals and nursing note reviewed. Constitutional: General: He is not in acute distress. Appearance: He is not diaphoretic. HENT: Head: Normocephalic and atraumatic. Right Ear: External ear normal. Left Ear: External ear normal. Nose: Nose normal. Mouth/Throat: Mouth: Mucous membranes are moist. Eyes: Conjunctiva/sclera: Conjunctivae normal. Pupils: Pupils are equal, round, and reactive to light. Neck: Trachea: No tracheal deviation. Cardiovascular: Rate and Rhythm: Normal rate and regular rhythm. Heart sounds: Murmur heard. Pulmonary: Effort: Pulmonary effort is normal. No respiratory distress. Breath sounds: Normal breath sounds. No wheezing. Chest: Abdominal: General: Bowel sounds are normal. There is no distension. Palpations: Abdomen is soft. Tenderness: There is no abdominal tenderness. Musculoskeletal: General: No tenderness. Normal range of motion. Cervical back: Normal range of motion and neck supple. Right lower le+ Pitting Edema present. Left lower le+ Pitting Edema present. Skin: General: Skin is warm and dry. Findings: No rash. Neurological: Mental Status: He is alert and oriented to person, place, and time. Cranial Nerves: No dysarthria or facial asymmetry. Psychiatric: Mood and Affect: Mood normal. Behavior: Behavior normal. DIAGNOSTICS LAB: CBC WITH DIFFERENTIAL - Abnormal Result Value WBC 4.1 (*) RBC 3.45 (*) HEMOGLOBIN 9.9 (*) HEMATOCRIT 29.7 (*) MCV 86.1 MCH 28.7 MCHC 33.3 PLATELETS 202 MPV 9.2 RDW 15.4 (*) RDW-STDEV 47.8 NEUTROPHILS 42 LYMPHOCYTES 46 (*) MONOCYTES 11 (*) EOSINOPHILS 1 BASOPHILS 1 IMMATURE GRANULOCYTES 0 NEUTROPHIL ABSOLUTE 1.72 (*) LYMPHOCYTE ABSOLUTE 1.88 MONOCYTE ABSOLUTE 0.45 EOSINOPHIL ABSOLUTE 0.03 BASOPHILS ABSOLUTE 0.04 IMMATURE GRANULOCYTES ABSOLUTE 0.01 SMEAR REVIEWED: NA - Not Applicable PTT - Abnormal PTT 44.8 (*) BASIC METABOLIC PANEL - Abnormal SODIUM 140 POTASSIUM 3.9 CHLORIDE 101 CO2 26 CALCIUM 8.7 (*) BUN 40 (*) CREATININE 4.42 (*) GLUCOSE 208 (*) GFR 14 (*) ANION GAP 13 TROPONIN 6 HR, 5TH GEN - Abnormal TROPONIN T, 6 HR 5TH GEN 153 (*) PROTIME-INR - Normal PROTIME 14.4 INR 1.1 UNFRACTIONATED HEPARIN MONITORING - Normal ANTI-XA UNFRAC HEP <0.10 RADIOLOGY: No orders to display EKG: My independent interpretation: Normal sinus rhythm, 75 bpm, left axis deviation, no ST segmentelevation or depression. PROCEDURES Procedures MEDICAL DECISION MAKING AND PLAN OF CARE Medical Decision Making Amount and/or Complexity of Data Reviewed Labs: ordered. Radiology: ordered. ECG/medicine tests: ordered. Risk OTC drugs. Prescription drug management. MDM Consults: hospitalist Time hospitalist paged: 12/28/2024 3:06 AM Name of hospitalist: Dr. Harris Discussion with hospitalist: Will admit Medical Decision Making: Patients significant past medical history includes: Type 2 diabetes, chronic renal failure on hemodialysis, congestive heart failure, GERD, hypertension, hyperlipidemia, TIA, coronary artery disease with stent placement, history of CVA, Differential diagnosis includes, but is not limited to: Acute coronary syndrome, pneumonia, CHF, GERD, peptic ulcer disease. By virtue of history and physical, some of these diagnoses can be excluded. Imaging was interpreted by me and notable for chest x-ray shows dialysis catheter in the right chest. No definite infiltrate, left-sided pleural effusion with left lower lobe atelectasis.. External documents/tests/notes reviewed: The patient's medical records from the transferring facility were reviewed. His CBC had a hemoglobin of 10.7. His previous hemoglobin was 11.6 on November 05 of this year. The patient's baseline troponin was 182 and his 2-hour troponin was 171. In September of this year the patient had a baseline and 2-hour troponin of 66 and 58 respectively. Additional information obtained from independent historian: EMS Summary: The patient is a 64-year-old male transferred from [facility] for evaluation of chest pain. He does have a known history of end-stage renal disease and is on hemodialysis. He was last dialyzed on December 27. The patient currently rates his chest pain at a 5 out of 10. The patient does state that when they started the nitro drip, it did not significantly decrease his pain. The patient's heparin will be continued. He will have Nitropaste placed on his chest wall. A 6-hourtroponin will be obtained. 3:06 AM At this time the patient is resting comfortably. He tells me that his chest pain is a 3 out of 10 at this time. He has Nitropaste on his chest wall. The patient's repeat laboratory test at this facility show a hemoglobin of 9.9. His 6-hour troponin was 153. The results of the patient's laboratory test have been discussed with him. He does agree to be admitted. The case will be discussed with the hospitalist for admission. The following social determinants of health potentially complicated the patient's course and were considered in my plan of care: None. ATTESTATION STATEMENTS A portion of this document may have been created by an artificial induction furnace operator software such as [employer] and AI such as [employer]. Effort has been done to assure accuracy of induction furnace operator. Any obvious errors or omissions should be clarified with the author of the document. Richard Esparza MD Medications Administered During the ED Stay from 12/28/2024 0052 to 12/28/2024 0313 Date/Time Order Dose Route Action 12/28/2024 0202 CDT heparin in 0.45% NaCl 25,000 unit/250 mL infusion 12 Units/kg/hr IV Rate Change 12/28/2024 0142 CDT heparin in 0.45% NaCl 25,000 unit/250 mL infusion 10 Units/kg/hr IV New Bag 12/28/2024 0117 CDT nitroglycerin (NITRO-BID) 2 % topical ointment 1 Inch 1 Inch Topical Applied 12/28/2024 0117 CDT aspirin (SHILA CHEWABLE) chewable tablet 81 mg 81 mg Oral Given LAST VS BP: 124/63 (12/28/24244), Heart Rate: 67 bpm (12/28/24244), Resp: 10 (12/28/24244), Pulse: 67(12/28/24244), Temp: 97.7 ??F (36.5 ??C) (12/28/2499), Temp src: Oral (12/28/2499), SpO2: 93 % (12/28/24244) CLINICAL IMPRESSION Final diagnoses: [R07.9] Acute chest pain (Primary) [N18.6, Z99.2] ESRD (end stage renal disease) on dialysis ([facility]) [R79.89] Elevated troponin [D64.9] Normocytic anemia [D72.819] Leukopenia, unspecified type DISPOSITION, EDUCATION AND MEDICATION RECONCILIATION Medications reconciled. See after visit summary for patient education on discharged patients. ED Disposition ED Disposition Admit Condition Fair User Richard Esparza MD Date/Time TueDec 28, 2024 3:12 AM Comment -- ATTESTATION STATEMENTS documented in this encounter Miscellaneous Notes * Care Plan - Nigel Ibarra RN - 01/01/2025 12:45 PM CDT Cardiopulmonary Rehab completed NSTEMI/PTCA Education with patient. The patient was receptive to the education and verbalized understanding. Referral was made to Outpatient Cardiopulmonary Rehab at [facility]. Patient was provided with contact information for the referral location. Please see Patient Education section of the chart for content details. Total Time Spent with the Patient: 15 minutes. Units Charged: 1 * Care Plan - Grace Farnsworth RN - 01/01/2025 5:10 AM CDT Shift Summary Morphine was administered to address constant aching pain in the lower back, resulting in verbalized relief. Insulin glargine was refused, and glucose levels remained high throughout the shift. Comprehensive metabolic panel revealed multiple abnormal values, including high BUN, creatinine, and glucose levels. Unfractionated heparin monitoring showed anti-Xa levels below the therapeutic range. Overall, pain management was effective, but lab results indicated several abnormalities requiring attention. Verbalizes/displays acceptable comfort level or baseline comfort level: Pain was initially denied but later reported as constant and aching in the lower back. Morphine was administered, and relief was verbalized following the intervention. * Care Plan - Kierra Urbano RN - 12/31/2024 9:46 AM CDT Target Protection Specialist Discharge Planning Expected Discharge Date Jan 01, 2025 Plan Discharge To: Home or Self Care (12/29/24739) Plan Discharge To - Alternate: Home or Self Care (12/29/24739) Referrals Status: following for discharge planning Preferred Pharmacy: [facility] [address] [place] [address] 60 Patient / Family Communications Resources Provided Transportation Plan Family Follow Up Appointments Scheduled Kierra Urbano RN * Care Plan - Esme Solares RN - 12/29/2024 5:45 PM CDT Patient is resting in bed with call light and personal belongings within reach. Hourly rounding performed. Medications given per AUG. Heparin at 17 units/kg/hr. Therapeutic twice today. Next anti-XA is tomorrow 0500. Planning for [facility] Tuesday. Patient says he is having a fistulogram on Tuesday. Hospitalist to let vascular surgery know patient is here. * Care Plan - Roslyn Lee LCSW - 12/29/2024 7:40 AM CDT Problem: Discharge Planning Goal: Identify discharge needs upon admission and through discharge Description: Outcome: Progressing Clinical documentation reviewed. Comprehensive Discharge Planning Risk Assessment was completed. Documentation Related to CDPA score CDPA Documentation Ambulation: assistive equipment Transferring: independent Toileting: independent Bathing: independent Dressing: independent Eating: independent Communication: understands/communicates w/o difficulty Weight-Bearing Status: no weight-bearing restrictions Living Arrangements: Lives alone Total Score of 9 or below does not identify immediate needs for discharge. CDPA Risk Score Total Score: 7 4 Age 3 Prior Living Status Criteria that do not apply: Self-reported walking limitation Disability Please place consult if needs for discharge are identified. Care Management will continue to follow for discharge planning. * Care Plan - Bobbi Light RN - 12/29/2024 5:37 AM CDT Shift Summary Atorvastatin was administered to address cardiovascular concerns. Initial unfractionated heparin monitoring indicated a subtherapeutic anti-Xa level, leading to a rate increase. Subsequent monitoring showed anti-Xa levels within the therapeutic range. Blood pressure improved significantly over the shift. Overall, the patient maintained stable cardiovascular and renal function with ongoing dialysis. Verbalizes/displays acceptable comfort level or baseline comfort level: Pain/discomfort was reported earlier in the shift, but no further details on interventions or changes in pain levels were documented. * Gen AI ED Handoff - GENERATIVE AI HANDOFF NOTE - 12/28/2024 8:39 AM CDT SITUATION: Patient ( ) is a 64-year-old male who has been in the ER for 7 hours. He came to the ER due to chest pain. The patient's most recent care team on record included: Ava Palomares; Naty Barr. BACKGROUND: Drips the patient are on include: heparin, last started at 2024-12-28 01:42:00. This patient has no known allergies. ASSESSMENT: Patient's most recent vitals recorded in flowsheets were as follows: BP: 160/77 T: 97.7 F RR: 11 SPO2: 98% HR: 73 WT: 220.5 LBS BMI: 32.56 Most recent Glucose Value: 208. Completed: 2024-12-28 01:55. Last recorded oxygen source was room air. The patient, Ida Morelos, is a 64-year-old male with a history of type 2 diabetes mellitus, hypertension, hyperlipidemia, end-stage renal disease on hemodialysis, coronary artery disease status post PCI, cerebrovascular accident without residual deficits, diabetic polyneuropathy, combined systolic and diastolic heart failure, lumbar radiculopathy, and gastroesophageal reflux disease. He presented with chest pain radiating to the neck and mid back, which did not resolve with sublingual nitroglycerin. The patient has chronic anemia, leukopenia, and elevated glucose levels. He has a dialysis catheter on the right side of the chest wall and trace edema in bilateral lower extremities. RECOMMENDATION: Continue aspirin, Plavix, and statin therapy. Maintain heparin drip and Nitropaste for angina management. Telemetry monitoring is required. Trend troponin levels and perform EKG as needed for worsening chest pain. Cardiology has been consulted. Follow-up lipid profile, TSH, and A1c. Continue gabapentin for diabetic polyneuropathy and lumbar radiculopathy. Manage hypertension with hydralazine, valsartan, amlodipine, and metoprolol tartrate. Initiate hyperglycemia pathway with insulin Lantus and sliding scale insulin. Monitor insulin requirements and adjust regimen accordingly. For chronic heart failure, continue metoprolol tartrate and valsartan, monitor intake and output, manage fluid with dialysis, and enforce a low-salt diet and fluid restriction. Continue dialysis as per schedule and consult nephrology for renal dosing of medications. Monitor hemoglobin levels and transfuse if it drops below 7. The patient is on a NPO diet with sips allowed for medications. Ensure DVT prophylaxis with heparin drip. Admission status is inpatient telemetry. *This summary was created by [employer]. The responses are meant to enhance, not replace normal workflow. Please contact the ED nurse for any additional information.* * Treatment Plan - Nir Toney V., PHARMACIST - 12/28/2024 1:19 AM CDT [facility] Adult Heparin Anti-Xa Monitoring Protocol [facility] ORDERS ARE ENTERED ???PER PROTOCOL?? Nursing Orders: [...] clearing the pump volume Laboratory Orders: Baseline: Unfractionated heparin monitoring (Anti-Xa), PTT, and CBC without differential if not obtained in the last 72 hours before starting IV Heparin Infusion monitoring: Timed Anti-Xa every 6 hours after the initiation of infusion, change in rate or bolus until 2 consecutive Anti-Xa are in therapeutic range PTT monitoring should be used instead of Anti-xa monitoring for the following: Facility only has PTT lab monitoring capabilities Patients who have received a Xa inhibitor Direct Oral Anticoagulant (DOAC) medication (rivaroxaban,apixaban, edoxaban), therapeutic Enoxaparin, or Fondaparinux within the last 48 hours Daily once stable: Anti-Xa daily while on heparin once stable Minimum [...] (MAX 10,000 units) Initial Infusion 18 units/kg/hour Anti-Xa (Units/mL) Bolus (if boluses are authorized by physician per infusion order) Hold Infusion IV infusion Change Next Level Less than 0.2 60 units/kg 0 min Increase heparin dose by 3 units/kg/hr 6 hours 0.2 - 0.29 30 units/kg 0 min Increase heparin dose by 2 units/kg/hr 6 hours 0.3 - 0.7 NO CHANGE Every 6 hours x 2 then every AM 0.71 - 0.8 none 0 min Decrease heparin dose by 1 units/kg/hr 6 hours 0.81 - 0.9 none 30 min Decrease heparin dose by 2 units/kg/hr 6 hours Greater than 0.9 none 60 min Decrease heparin dose by [...] units/kg/hour ACS: 12 units/kg/hour (MAX 1000 units/hour) Anti-Xa (Units/mL) Bolus (if boluses are authorized by physician per infusion order) Hold Infusion IV infusion Change Next Level Less than 0.2 30 units/kg 0 min Increase heparin dose by 2 units/kg/hr 6 hours 0.2 - 0.29 15 units/kg 0 min Increase heparin dose by 1 units/kg/hr 6 hours 0.3 - 0.6 NO CHANGE Every 6 hours x 2 then every AM 0.61 - 0.7 none 0 min Decrease heparin dose by 1 units/kg/hr 6 hours 0.71 - 0.9 none 30 min Decrease heparin dose by 2 units/kg/hr 6 hours Greater than 0.9 none 60 min Decrease heparin dose by 3 units/kg/hr 6 hours * ED Bed Hold Comment Note - Helga Og RN - 12/28/2024 12:52 AM CDT Bed: 02 Expected date: 12/28/24 Expected time: Means of arrival: Comments: LL1 documented in this encounter Plan of Treatment Upcoming Encounters Date Type Department Care Team (Late st Contact Info) Description 01/04/2025 6:30 AM CDT Appointment 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 Office Visit [facility] Neurosurgery [address] [place] [address] Adali Hammond PA [address] [place] [address] Pending Results Name Type Priority Associated Diagnoses Date /Time EKG 12-LEAD ECG Routine 01/01/2025 2: 45 PM CDT Scheduled Referrals Name Type Priority Associated Diagnoses Orde r Schedule AMB REFERRAL TO CARDIAC REHAB Outpatient Referral Routine NSTEMI (non-ST elevated myocardial infarction) ([facility]) S/P PTCA (percutaneous transluminal coronary angioplasty) Ordered: 01/01/2025 documented as of this encounter Procedures Procedure Name Priority Date/Time Associated Diagnosis Comments TELEMETRY REPORT 01/02/2025 2:39 AM CDT EKG 12-LEAD Routine 01/01/2025 2:45 PM CDT Procedure Note - Ash Wheat MD - 01/01/2025 2:45 PM CDTThis note is in progress. [facility] [address] [place] [address] Test Date: 2025-01-01 Pat Name: IDA MORELOS Department: 12 Room: [address] [place] [address] Gender: Male Crimper Operator: [id number] : 1960 Requested By: Order Number: [id number] Reading MD: Measurements Intervals Hillman Rate: 65 P: 0 UT: 0 QRS: -48 QRSD: 120 T: 55 QT: 412 QTc: 428 Interpretive Statements Wide QRS rhythm Left axis deviation Anteroseptal infarct, age undetermined Abnormal ECG CL FISTULOGRAM Routine 01/01/2025 1:57 PM CDT End stage renal disease ([facility]) POC GLUCOSE Routine 01/01/2025 11:28 AM CDT POC GLUCOSE Routine 01/01/2025 7:03 AM CDT UNFRACTIONATED HEPARIN ACTIVITY Routine 01/01/2025 1:38 AM CDT CBC WITH DIFFERENTIAL Routine 01/01/2025 1:38 AM CDT COMPREHENSIVE METABOLIC PANEL Routine 01/01/2025 1:38 AM CDT POC GLUCOSE Routine 12/31/2024 8:28 PM CDT POC GLUCOSE Routine 12/31/2024 3:40 PM CDT IVUS-CORONARY INTRAVASCULAR Routine 12/31/2024 3:08 PM CDT NSTEMI (non-ST elevated myocardial infarction) (CMS/HCC) CORONARY LITHOTRIPSY Routine 12/31/2024 3:08 PM CDT NSTEMI (non-ST elevated myocardial infarction) (CMS/HCC) PERCUTANEOUS CORONARY INTERVENTION Routine 12/31/2024 3:08 PM CDT NSTEMI (non-ST elevated myocardial infarction) (CMS/HCC) LEFT HEART CATH Routine 12/31/2024 3:08 PM CDT NSTEMI (non-ST elevated myocardial infarction) (CMS/HCC) POC ACTIVATED CLOTTING TIME Routine 12/31/2024 3:07 PM CDT ACUTE HEPATITIS PANEL Routine 12/31/2024 10:28 AM CDT POC GLUCOSE Routine 12/31/2024 7:05 AM CDT UNFRACTIONATED HEPARIN ACTIVITY Timed Study 12/31/2024 4:42 AM CDT CBC WITH DIFFERENTIAL Routine 12/31/2024 4:42 AM CDT BASIC METABOLIC PANEL Routine 12/31/2024 4:42 AM CDT TROPONIN 6 HR, 5TH GEN Timed Study 12/30/2024 11:36 PM CDT CBC WITHOUT DIFFERENTIAL Routine 12/30/2024 11:36 PM CDT POC GLUCOSE Routine 12/30/2024 8:41 PM CDT TROPONIN 2 HR, 5TH GEN Timed Study 12/30/2024 7:17 PM CDT TROPONIN BASELINE, 5TH GEN Stat 12/30/2024 4:56 PM CDT EKG 12-LEAD Stat 12/30/2024 4:54 PM CDT POC GLUCOSE Routine 12/30/2024 4:52 PM CDT POC GLUCOSE Routine 12/30/2024 11:07 AM CDT POC GLUCOSE Routine 12/30/2024 7:09 AM CDT UNFRACTIONATED HEPARIN ACTIVITY Timed Study 12/30/2024 5:22 AM CDT CBC WITH DIFFERENTIAL Routine 12/30/2024 5:22 AM CDT BASIC METABOLIC PANEL Routine 12/30/2024 5:22 AM CDT POC GLUCOSE Routine 12/30/2024 1:55 AM CDT POC GLUCOSE Routine 12/29/2024 8:53 PM CDT POC GLUCOSE Routine 12/29/2024 4:49 PM CDT POC GLUCOSE Routine 12/29/2024 11:27 AM CDT UNFRACTIONATED HEPARIN ACTIVITY Timed Study 12/29/2024 10:35 AM CDT POC GLUCOSE Routine 12/29/2024 7:39 AM CDT UNFRACTIONATED HEPARIN ACTIVITY Timed Study 12/29/2024 4:37 AM CDT CBC WITH DIFFERENTIAL Routine 12/29/2024 4:37 AM CDT BASIC METABOLIC PANEL Routine 12/29/2024 4:37 AM CDT UNFRACTIONATED HEPARIN ACTIVITY Timed Study 12/28/2024 10:12 PM CDT POC GLUCOSE Routine 12/28/2024 8:32 PM CDT POC GLUCOSE Routine 12/28/2024 4:56 PM CDT UNFRACTIONATED HEPARIN ACTIVITY Timed Study 12/28/2024 3:14 PM CDT ECHO COMPLETE Pending Discharge 12/28/2024 3:0 6 PM CDT POC GLUCOSE Routine 12/28/2024 11:53 AM CDT UNFRACTIONATED HEPARIN ACTIVITY Stat 12/28/2024 8:16 AM CDT XR CHEST PA OR AP 1 VW Stat 12/28/2024 2:20 AM CDT TROPONIN 6 HR, 5TH GEN Timed Study 12/28/2024 1:59 AM CDT EKG 12-LEAD Stat 12/28/2024 1:12 AM CDT LIPID RFLX Stat 12/28/2024 1:09 AM CDT UNFRACTIONATED HEPARIN ACTIVITY Stat 12/28/2024 1:09 AM CDT CBC WITH DIFFERENTIAL Stat 12/28/2024 1:09 AM CDT PTT Stat 12/28/2024 1:09 AM CDT PROTIME-INR Stat 12/28/2024 1:09 AM CDT TSH Stat 12/28/2024 1:09 AM CDT BASIC METABOLIC PANEL Stat 12/28/2024 1:09 AM CDT documented in this encounter Results * TELEMETRY REPORT (01/02/2025 2:39 AM CDT) us Provider Scanning ECG ORDERABLES Final Result * CL FISTULOGRAM (01/01/2025 1:57 PM CDT) 01/01/2025 1:17 PM CDT Narrative Esthela Mcknight RN - 01/01/2025 2:05 PM CDT Procedure was not performed by a Campground Manager, please see Chart Review - Notes tab for operative report. Davion Mcconnell MD CUP CATH ORDERABLES Final Resu lt * (ABNORMAL) POC GLUCOSE (01/01/2025 11:28 AM CDT) GLUCOSE POC 145(H) 74 - 99 mg/dL 01/01/2025 11:28 AM CDT [facility] SPECIMEN SOURCE, GLUCOSE POC Capillary 01/01/2025 11:28 AM CDT [facility] Blood, whole 01/01/2025 11:2 8 AM CDT 01/01/2025 11:43 AM CDT Phil Verdugo MD POINT OF CARE TESTING Final Result Performing Organization Address City/[facility]/ZIP Co de Phone Number [facility] CLIA # [id number] [address] [place] [phone] * (ABNORMAL) POC GLUCOSE (01/01/2025 7:03 AM CDT) GLUCOSE POC 155(H) 74 - 99 mg/dL 01/01/2025 7:03 AM CDT [facility] SPECIMEN SOURCE, GLUCOSE POC Capillary 01/01/2025 7:03 AM CDT [facility] Blood, whole 01/01/2025 7:03 AM CDT 01/01/2025 7:36 AM CDT Phil Verdugo MD POINT OF CARE TESTING Final Result [facility] CLIA # [id number] [facility] [address] [place] [address] * (ABNORMAL) COMPREHENSIVE METABOLIC PANEL (01/01/2025 1:38 AM CDT) [facility] SODIUM 136 136 - 145 mmol/L 01/01/2025 2:27 AM T [facility] POTASSIUM 4.6 3.5 - 5.1 mmol/L 01/01/2025 2:27 AM T [facility] CHLORIDE 98 98 - 107 mmol/L 01/01/2025 2:27 AM T [facility] CO2 27 22 - 29 mmol/L 01/01/2025 2:27 AM [facility] CALCIUM 8.3(L) 8.8 - 10.2 mg/dL 01/01/2025 2:27 AM [facility] BUN 31(H) 8 - 23 mg/dL 01/01/2025 2:27 AM T [facility] CREATININE 4.19(H) 0.67 - 1.17 mg/dL 01/01/2025 2:27 AM [facility] GLUCOSE 166(H) 74 - 99 mg/dL 01/01/2025 2:27 AM [facility] TOTAL PROTEIN 5.8(L) 6.4 - 8.3 g/dL 01/01/2025 2:27 AM [facility] ALBUMIN 3.2(L) 3.5 - 5.2 g/dL 01/01/2025 2:27 AM [facility] BILIRUBIN TOTAL 0.3 0.0 - 1.0 mg/dL 01/01/2025 2:27 AM T [facility] ALKALINE PHOSPHATASE 88 40 - 129 U/L 01/01/2025 2:27 AM [facility] AST 17 10 - 50 U/L 01/01/2025 2:27 AM [facility] ALT 15 <=50 U/L 01/01/2025 2:27 AM [facility] GFR 15(L) >=60 mL/min/1. 73 sq meter 01/01/2025 2:27 AM CDT [facility] Comment:eGFR calculated with 2020 CKD-EPI equation. Vegetarian diet, extremely high or low muscle mass, and may affect results. Cystatin C with Glomerular Filtration Rate is a suitable alternative for these patients. ANION GAP 11 9 - 20 mmol/L 01/01/2025 2:27 AM CDT [facility] Blood Venipuncture / Unknown 01/01/2025 1:38 AM CDT 01/01/2025 1:45 AM CDT Phil Verdugo MD CHEMISTRY ORDERABLES Final Result [facility] # [id number] [address] [place] [phone] * (ABNORMAL) CBC WITH DIFFERENTIAL (01/01/2025 1:38 AM CDT) WBC 4.1(L) 4.8 - 10.8 K/uL 01/01/2025 1:51 AM CDT [facility] RBC 3.20(L) 4.60 - 6.20 M/uL 01/01/2025 1:51 AM CDT [facility] HEMOGLOBIN 9.2(L) 14.0 - 18.0 g/dL 01/01/2025 1:51 AM CDT [facility] HEMATOCRIT 27.2(L) 41.0 - 53.0 % 01/01/2025 1:51 AM CDT [facility] MCV 85.0 84.0 - 103.0 fL 01/01/2025 1:51 AM CDT [facility] MCH 28.8 27.0 - 34.0 pg 01/01/2025 1:51 AM CDT [facility] MCHC 33.8 30.0 - 35.0 g/dL 01/01/2025 1:51 AM CDT [facility] [employer] [facility] PLATELETS 182 140 - 440 K/uL 01/01/2025 1:51 AM [facility] [employer] [facility] MPV 9.8 8.9 - 12.8 fL 01/01/2025 1:51 AM [facility] [employer] [facility] RDW 14.7(H) 11.0 - 14.5 % 01/01/2025 1:51 AM [facility] [employer] [facility] RDW-STDEV 45.8 37.0 - 54.0 fL 01/01/2025 1:51 AM [facility] [employer] [facility] NEUTROPHILS 56 42 - 75 % 01/01/2025 1:51 AM [facility] [employer] [facility] LYMPHOCYTES 33 24 - 44 % 01/01/2025 1:51 AM [facility] [employer] [facility] MONOCYTES 9 2 - 10 % 01/01/2025 1:51 AM [facility] [employer] [facility] EOSINOPHILS 1 0 - 7 % 01/01/2025 1:51 AM [facility] [employer] [facility] BASOPHILS 1 0 - 1 % 01/01/2025 1:51 AM [facility] [employer] [facility] IMMATURE GRANULOCYTES 0 0 - 2 % 01/01/2025 1:51 AM [facility] [employer] [facility] NEUTROPHIL ABSOLUTE 2.32 2.00 - 8.00 K/uL 01/01/2025 1:51 AM [facility] [employer] [facility] LYMPHOCYTE ABSOLUTE 1.37 1.20 - 4.00 K/uL 01/01/2025 1:51 AM [facility] [employer] [facility] MONOCYTE ABSOLUTE 0.38 0.10 - 0.60 K/uL 01/01/2025 1:51 AM [facility] [employer] [facility] EOSINOPHIL ABSOLUTE 0.02 0.00 - 0.70 K/uL 01/01/2025 1:51 AM [facility] [employer] [facility] BASOPHILS ABSOLUTE 0.04 0.00 - 0.20 K/uL 01/01/2025 1:51 AM [facility] [employer] [facility] IMMATURE GRANULOCYTES ABSOLUTE 0.00 0.00 - 0.10 K/uL 01/01/2025 1:51 AM [facility] [employer] [facility] SMEAR REVIEWED: NA - Not Applicable 01/01/2025 1:51 AM CDT [facility] Blood Venipuncture / Unknown 01/01/2025 1:38 AM CDT 01/01/2025 1:45 AM CDT Phil Verdugo MD HEMATOLOGY ORDERABLES Final Result Performing Organization Address [facility] Co de Phone Number [facility] CLIA # [id number] [address] [address] * UNFRACTIONATED HEPARIN MONITORING (01/01/2025 1:38 AM CDT) Pathologist [facility] ANTI-XA UNFRAC HEP <0.10 See Interpretation IU/mL 01/01/2025 2:01 AM CDT [facility] Blood Venipuncture / Unknown 01/01/2025 1:38 AM CDT 01/01/2025 1:45 AM CDT Narrative [facility] - 01/01/2025 2:01 AM CDT Therapeutic Range: PT/DVT Heparin Protocol 0.3 - 0.7 IU/ml Cardiac Heparin Protocol 0.3 - 0.6 IU/ml The reference range for this test is specific to the anticoagulant and is not appropriate for monitoring patients on a DOAC protocol. Bharati Jarrell MD HEMATOLOGY ORDERABLES Final Resu lt Performing Organization Address City/[facility]/ZIP Co de Phone Number [facility] CLIA # [id number] [address] [place], [place] [address] * (ABNORMAL) POC GLUCOSE (12/31/2024 8:28 PM CDT) [facility] GLUCOSE POC 196(H) 74 - 99 mg/dL 12/31/2024 8:28 PM CDT [facility] SPECIMEN SOURCE, GLUCOSE POC Capillary 12/31/2024 8:28 PM [address]T [facility] [employer] [facility] Blood, whole 12/31/2024 8:28 PM CDT 12/31/2024 9:25 PM CDT Phil Verdugo MD POINT OF CARE TESTING Final Result Performing Organization Address City/[facility]/ZIP Co de Phone Number [facility] CLIA # [id number] [address] [place] [address] * (ABNORMAL) POC GLUCOSE (12/31/2024 3:40 PM CDT) [facility] GLUCOSE POC 112(H) 74 - 99 mg/dL 12/31/2024 3:40 PM CDT [facility] SPECIMEN SOURCE, GLUCOSE POC Capillary 12/31/2024 3:40 PM CDT [facility] Blood, whole 12/31/2024 3:40 PM CDT 12/31/2024 3:49 PM CDT Phil Verdugo MD POINT OF CARE TESTING Final Result Performing Organization Address City/[facility]/ZIP Co de Phone Number [facility] CLIA # [id number] [address] [place] [address] * LEFT HEART CATH, PERCUTANEOUS CORONARY INTERVENTION, CORONARY LITHOTRIPSY, IVUS-CORONARY INTRAVASCULAR (12/31/2024 3:08 PM CDT) 12/31/2024 2:34 PM CDT Narrative [facility] - 12/31/2024 4:54 PM CDT Prox LAD lesion is 90% stenosed. Mid LAD lesion is 30% stenosed. Prox RCA to Mid RCA lesion is 50% stenosed. Prox LAD reduced to 0% stenosed. Significant single vessel CAD with in-stent restenosis treated with coronary lithotripsy and adjuvant balloon angioplasty Coronary Findings Diagnostic Dominance: Right Left Main: The vessel is moderate in size and is angiographically normal. Left Anterior Descending: Prox LAD lesion is 90% stenosed. Culprit lesion. DINH flow is 3. The lesion is not complex (non high-C), distal to major branch and eccentric. The lesion was not previously treated. Ultrasound (IVUS) was performed. IVUS showed that the stent is well opposed. Mid LAD lesion is 30% stenosed. First Diagonal Branch: The vessel exhibits minimal luminal irregularities. Left Circumflex: There is mild diffuse disease in the vessel. First Obtuse Marginal Branch: The vessel exhibits minimal luminal irregularities. Second Obtuse Marginal Branch: The vessel is small. There is severe diffuse disease in the vessel. Right Coronary Artery: Prox RCA to Mid RCA lesion is 50% stenosed. Intervention Prox LAD lesion: Lithotripsy: Supplies Used: CATH SHOCKWAVE C2+ IVL 3.0X12MM 5FR 138CM [id number] Angioplasty: Angioplasty independent of stent deployment was performed. Angioplasty was performed independent of stent deployment. Supplies Used: CATH BALLN PTCA 3.26D39TT SAPPHIRE NC24 CORONARY [id number] Post-Intervention Lesion Assessment: The intervention was successful. The guidewire crossed the lesion. Device was deployed. Post-intervention DINH flow is 3. There were no complications. There is a 0% residual stenosis post intervention. Estimated Blood Loss There was minimal blood loss during procedure. PCI RISK CSHA Frailty Score: Vulnerable (Not dependent on others but symptoms limit activity). NYHA Class: Class I: No limitation of physical activity. Ordinary physical activity does not cause symptoms of HF. CV Instability: persistent ischemic symptoms (chest pain, ROLAND). PAD: History of PAD (In subclavian, iliac, femoral, and upper/lower extremity vessels). Cerebrovascular Disease History: Unknown us Gisela Harris [facility] CUP CATH ORDERABLES Final Result [facility] CARDIOLOGY [facility] [id number] [address] [facility] [address] [place] [address], [place] [phone] * (ABNORMAL) POC ACTIVATED CLOTTING TIME (12/31/2024 3:07 PM CDT) [facility] ACTIVATED CLOTTING TIME POC 302(H) 116 - 140 sec 12/31/2024 3:07 PM CDT [facility] Blood 12/31/2024 3:07 PM CDT 12/31/2024 3:10 PM CDT Phil Verdugo MD POINT OF CARE TESTING Final Result Performing Organization Address [facility] Co de Phone Number [facility] CLIA # [id number] [address] [facility] [place] [address] * ACUTE HEPATITIS PANEL (12/31/2024 10:28 AM CDT) [facility] HEPATITIS B SURFACE AG NON-REACT JOSE Non-react jose 12/31/2024 11:25 AM CDT [facility] Comment:A non-reactive test result does not exclude the possibility of exposure to or infection with hepatitis B. HEPATITIS B CORE IGM NON-REACT JOSE Non-react jose 12/31/2024 11:25 AM T [facility] Comment:IgM antibodies to HB c were not detected; does not exclude the possibility of exposure to HBV. HEPATITIS A IGM Non-react jose Non-react jose 12/31/2024 11:25 AM CDT [facility] Comment:A negative test resu lt does not exclude the possibility of exposure to Hepatitis A virus. HEPATITIS C AB NON-REACT JOSE Non-react jose 12/31/2024 11:25 AM CDT [facility] Comment:Antibodies to HCV we re not detected, does not exclude the possibility of exposure to HCV. Blood Venipuncture / Unknown 12/31/2024 10:28 AM CDT 12/31/2024 10:33 AM CDT us Jessica Luz NP CHEMISTRY ORDERABLES Final Resul t Performing Organization Address City/[facility]/ZIP Co de Phone Number [facility] CLIA # [id number] [address] [place] [address] * (ABNORMAL) POC GLUCOSE (12/31/2024 7:05 AM CDT) [facility] GLUCOSE POC 155(H) 74 - 99 mg/dL 12/31/2024 7:05 AM CDT [facility] SPECIMEN SOURCE, GLUCOSE POC Capillary 12/31/2024 7:05 AM CDT [facility] Blood, whole 12/31/2024 7:05 AM CDT 12/31/2024 7:24 AM CDT Bharati Jarrell MD POINT OF CARE TESTING Final Resu lt [facility] CLIA # [id number] [address] [place] [address] * (ABNORMAL) BASIC METABOLIC PANEL (12/31/2024 4:42 AM CDT) [facility] SODIUM 134(L) 136 - 145 mmol/L 12/31/2024 5:34 AM CDT [facility] POTASSIUM 4.6 3.5 - 5.1 mmol/L 12/31/2024 5:34 AM CDT [facility] CHLORIDE 98 98 - 107 mmol/L 12/31/2024 5:34 AM CDT [facility] CO2 24 22 - 29 mmol/L 12/31/2024 5:34 AM CDT [facility] CALCIUM 8.7(L) 8.8 - 10.2 mg/dL 12/31/2024 5:34 AM CDT [facility] BUN 62(H) 8 - 23 mg/dL 12/31/2024 5:34 AM CDT [facility] CREATININE 6.43(H) 0.67 - 1.17 mg/dL 12/31/2024 5:34 AM CDT [facility] GLUCOSE 199(H) 74 - 99 mg/dL 12/31/2024 5:34 AM CDT [facility] GFR 9(L) >=60 mL/min/1. 73 sq meter 12/31/2024 5:34 AM T [facility] Comment:eGFR calculated with 2020 CKD-EPI equation. Vegetarian diet, extremely high or low muscle mass, and may affect results. Cystatin C with Glomerular Filtration Rate is a suitable alternative for these patients. ANION GAP 12 9 - 20 mmol/L 12/31/2024 5:34 AM T [facility] Blood Venipuncture / Unknown 12/31/2024 4:42 AM CDT 12/31/2024 5:03 AM CDT us Bharati Jarrell MD CHEMISTRY ORDERABLES Final Resul t [facility] CLIA # [id number] [address] [place] [address] * (ABNORMAL) CBC WITH DIFFERENTIAL (12/31/2024 4:42 AM CDT) WBC 4.3(L) 4.8 - 10.8 K/uL 12/31/2024 5:17 AM T [facility] RBC 3.39(L) 4.60 - 6.20 M/uL 12/31/2024 5:17 AM T [facility] HEMOGLOBIN 9.8(L) 14.0 - 18.0 g/dL 12/31/2024 5:17 AM T [facility] HEMATOCRIT 29.7(L) 41.0 - 53.0 % 12/31/2024 5:17 AM CDT [facility] MCV 87.6 84.0 - 103.0 fL 12/31/2024 5:17 AM CDT [facility] MCH 28.9 27.0 - 34.0 pg 12/31/2024 5:17 AM CDT [facility] MCHC 33.0 30.0 - 35.0 g/dL 12/31/2024 5:17 AM [facility] PLATELETS 200 140 - 440 K/uL 12/31/2024 5:17 AM [facility] MPV 10.0 8.9 - 12.8 fL 12/31/2024 5:17 AM [facility] RDW 14.6(H) 11.0 - 14.5 % 12/31/2024 5:17 AM [facility] [employer] [facility] RDW-STDEV 46.9 37.0 - 54.0 fL 12/31/2024 5:17 AM [facility] [employer] [facility] NEUTROPHILS 45 42 - 75 % 12/31/2024 5:17 AM [facility] LYMPHOCYTES 44 24 - 44 % 12/31/2024 5:17 AM [facility] MONOCYTES 9 2 - 10 % 12/31/2024 5:17 AM [facility] [employer] [facility] EOSINOPHILS 1 0 - 7 % 12/31/2024 5:17 AM [facility] [employer] [facility] BASOPHILS 1 0 - 1 % 12/31/2024 5:17 AM [facility] IMMATURE GRANULOCYTES 0 0 - 2 % 12/31/2024 5:17 AM [facility] NEUTROPHIL ABSOLUTE 1.91(L) 2.00 - 8.00 K/uL 12/31/2024 5:17 AM [facility] LYMPHOCYTE ABSOLUTE 1.89 1.20 - 4.00 K/uL 12/31/2024 5:17 AM [facility] MONOCYTE ABSOLUTE 0.37 0.10 - 0.60 K/uL 12/31/2024 5:17 AM [facility] EOSINOPHIL ABSOLUTE 0.03 0.00 - 0.70 K/uL 12/31/2024 5:17 AM [facility] 0.05 0.00 - 0.20 K/uL 12/31/2024 5:17 AM [facility] IMMATURE GRANULOCYTES ABSOLUTE 0.01 0.00 - 0.10 K/uL 12/31/2024 5:17 AM CDT [facility] SMEAR REVIEWED: NA - Not Applicable 12/31/2024 5:17 AM CDT [facility] Blood Venipuncture / Unknown 12/31/2024 4:42 AM CDT 12/31/2024 5:03 AM CDT Bharati Jarrell MD HEMATOLOGY ORDERABLES Final Resu lt Performing Organization Address [facility] Co de Phone Number [facility] CLIA # [id number] [address] [address] * UNFRACTIONATED HEPARIN MONITORING (12/31/2024 4:42 AM CDT) Pathologist [facility] ANTI-XA UNFRAC HEP 0.46 See Interpretation IU/mL 12/31/2024 5:19 AM CDT [facility] Blood Venipuncture / Unknown 12/31/2024 4:42 AM CDT 12/31/2024 5:03 AM CDT Narrative [facility] - 12/31/2024 5:19 AM CDT Therapeutic Range: PT/DVT Heparin Protocol 0.3 - 0.7 IU/ml Cardiac Heparin Protocol 0.3 - 0.6 IU/ml The reference range for this test is specific to the anticoagulant and is not appropriate for monitoring patients on a DOAC protocol. Bharati Jarrell MD HEMATOLOGY ORDERABLES Final Resu lt Performing Organization Address [facility] Co de Phone Number [facility] CLIA # [id number] [address] [address] * (ABNORMAL) CBC WITHOUT DIFFERENTIAL (12/30/2024 11:36 PM CDT) WBC 4.5(L) 4.8 - 10.8 K/uL 12/30/2024 11:44 PM CDT [facility] RBC 3.51(L) 4.60 - 6.20 M/uL 12/30/2024 11:44 PM CDT [facility] HEMOGLOBIN 10.0(L) 14.0 - 18.0 g/dL 12/30/2024 11:44 PM CDT [facility] HEMATOCRIT 30.6(L) 41.0 - 53.0 % 12/30/2024 11:44 PM CDT [facility] MCV 87.2 84.0 - 103.0 fL 12/30/2024 11:44 PM CDT [facility] MCH 28.5 27.0 - 34.0 pg 12/30/2024 11:44 PM CDT [facility] MCHC 32.7 30.0 - 35.0 g/dL 12/30/2024 11:44 PM CDT [facility] PLATELETS 209 140 - 440 K/uL 12/30/2024 11:44 PM CDT [facility] MPV 9.9 8.9 - 12.8 fL 12/30/2024 11:44 PM CDT [facility] RDW 14.7(H) 11.0 - 14.5 % 12/30/2024 11:44 PM CDT [facility] RDW-STDEV 47.2 37.0 - 54.0 fL 12/30/2024 11:44 PM CDT [facility] Blood Venipuncture / Unknown 12/30/2024 11:36 PM CDT 12/30/2024 11:42 PM CDT us Davion Mcconnell MD HEMATOLOGY ORDERABLES Final Re sult [facility] CLIA # [id number] [facility] [address] [place] [address] * (ABNORMAL) TROPONIN 6 HR, 5TH GEN (12/30/2024 11:36 PM CDT) TROPONIN T, 6 HR 5TH GEN 160(HH) <=15 ng/L 12/31/2024 12:35 AM CDT [facility] DELTA 6HR TROPONIN T % -2 See Interp. % 12/31/2024 12:35 AM CDT [facility] Blood Venipuncture / Unknown 12/30/2024 11:36 PM CDT 12/30/2024 11:44 PM CDT Narrative [facility] - 12/31/2024 12:35 AM CDT Troponin elevated. Delay in collection of timed specimen beyond recommended collection interval. Results must be interpreted in clinical context. Delta not changing. us Bharati Jarrell MD CHEMISTRY ORDERABLES Final Resul t Performing Organization Address City/[facility] Co de Phone Number [facility] CLIA # [id number] [address] [address] [place] [address] * (ABNORMAL) POC GLUCOSE (12/30/2024 8:41 PM CDT) [facility] GLUCOSE POC 171(H) 74 - 99 mg/dL 12/30/2024 8:41 PM CDT [facility] SPECIMEN SOURCE, GLUCOSE POC Capillary 12/30/2024 8:41 PM CDT [facility] Blood, whole 12/30/2024 8:41 PM CDT 12/30/2024 9:37 PM CDT us Bharati Jarrell MD POINT OF CARE TESTING Final Resu lt Performing Organization Address City/[facility]/ZIP Co de Phone Number [facility] CLIA # [id number] [address] [address] [place] [address] * (ABNORMAL) TROPONIN 2 HR, 5TH GEN (12/30/2024 7:17 PM CDT) Pathologist [facility] TROPONIN T, 2 HR 5TH GEN 160(HH) <=15 ng/L 12/30/2024 8:00 PM CDT [facility] DELTA 2HR TROPONIN T % -2 See Interp. % 12/30/2024 8:00 PM CDT [facility] Blood Venipuncture / Unknown 12/30/2024 7:17 PM CDT 12/30/2024 7:23 PM CDT Narrative [facility] - 12/30/2024 8:00 PM CDT Troponin elevated. Delay in collection of timed specimen beyond recommended collection interval. Results must be interpreted in clinical context. Delta not changing. us Bharati Jarrell MD CHEMISTRY ORDERABLES Final Resul t Performing Organization Address [facility] Co de Phone Number [facility] CLIA # [id number] [address] [address] [place] [address] * (ABNORMAL) TROPONIN BASELINE, 5TH GEN (12/30/2024 4:56 PM CDT) TROPONIN T, BASELINE 5TH GEN 163(HH) <=15 ng/L 12/30/2024 6:10 PM CDT [facility] Blood Venipuncture / Unknown 12/30/2024 4:56 PM CDT 12/30/2024 5:33 PM CDT Narrative [facility] - 12/30/2024 6:10 PM CDT Troponin elevated. us Bharati Jarrell MD CHEMISTRY ORDERABLES Final Resul t Performing Organization Address [facility]/ZIP Co de Phone Number [facility] CLIA # [id number] [address] [address] [place] [address] * EKG 12-LEAD (12/30/2024 4:54 PM CDT) 12/30/2024 4:54 PM CDT Narrative INTERFACE SYSTEM - 12/31/2024 6:38 AM CDT [address] [address] Test Date: 2024-12-30 Pat Name: IDA MORELOS Department: 12 Room: [address] [place] [address] Gender: Male Crimper Operator: [id number] : 1960 Requested By: Order Number: [id number] Reading MD: Neeta Tejeda Measurements Intervals Hillman Rate: 61 P: 44 UT: 184 QRS: -56 QRSD: 122 T: 48 QT: 442 QTc: 444 Interpretive Statements Normal sinus rhythm Left axis deviation Septal infarct, age undetermined Abnormal ECG Electronically Signed On 12-31-2024 6:38:43 CDT by Neeta Tejeda Procedure Note Provider, Historical - 12/31/[address] [address] Test Date: 2024-12-30 Pat Name: IDA MORELOS Department: 12 Room: [address] [place] [address] Gender: Male Crimper Operator: [id number] : 1960 Requested By: Order Number: [id number] Reading : Neeta Tejeda Measurements Intervals Hillman Rate: 61 P: 44 UT: 184 QRS: -56 QRSD: 122 T: 48 QT: 442 QTc: 444 Interpretive Statements Normal sinus rhythm Left axis deviation Septal infarct, age undetermined Abnormal ECG Electronically Signed On 12-31-2024 6:38:43 CDT by Neeta Tejeda us Bharati Jarrell MD ECG ORDERABLES Final Result INTERFACE SYSTEM Refer to clinic/hospital department * (ABNORMAL) POC GLUCOSE (12/30/2024 4:52 PM CDT) GLUCOSE POC 174(H) 74 - 99 mg/dL 12/30/2024 4:52 PM CD[address] [facility] SPECIMEN SOURCE, GLUCOSE POC Capillary 12/30/2024 4:52 PM CDT [facility] Blood, whole 12/30/2024 4:52 PM CDT 12/30/2024 5:15 PM CDT us Bharati Jarrell MD POINT OF CARE TESTING Final Resu lt Performing Organization Address [facility]/ZIP Co de Phone Number [facility] CLIA # [id number] [address] [address] [place] [address] * (ABNORMAL) POC GLUCOSE (12/30/2024 11:07 AM CDT) GLUCOSE POC 181(H) 74 - 99 mg/dL 12/30/2024 11:07 AM CDT [facility] SPECIMEN SOURCE, GLUCOSE POC Capillary 12/30/2024 11:07 AM CDT [facility] Blood, whole 12/30/2024 11:0 7 AM CDT 12/30/2024 11:18 AM CDT us Bharati Jarrell MD POINT OF CARE TESTING Final Resu lt Performing Organization Address [facility] de Phone Number [facility] CLIA # [id number] [address] [address] * (ABNORMAL) POC GLUCOSE (12/30/2024 7:09 AM CDT) GLUCOSE POC 125(H) 74 - 99 mg/dL 12/30/2024 7:09 AM CDT [facility] SPECIMEN SOURCE, GLUCOSE POC Capillary 12/30/2024 7:09 AM CDT [facility] Blood, whole 12/30/2024 7:09 AM CDT 12/30/2024 7:30 AM CDT us Bharati Jarrell MD POINT OF CARE TESTING Final Resu lt Performing Organization Address City/[facility]/ZIP Co de Phone Number [facility] CLIA # [id number] [address] [address] * UNFRACTIONATED HEPARIN MONITORING (12/30/2024 5:22 AM CDT) [facility] ANTI-XA UNFRAC HEP 0.46 See Interpretation IU/mL 12/30/2024 5:48 AM CDT [facility] Blood Venipuncture / Unknown 12/30/2024 5:22 AM CDT 12/30/2024 5:33 AM CDT Narrative [facility] - 12/30/2024 5:48 AM CDT Therapeutic Range: PT/DVT Heparin Protocol 0.3 - 0.7 IU/ml Cardiac Heparin Protocol 0.3 - 0.6 IU/ml The reference range for this test is specific to the anticoagulant and is not appropriate for monitoring patients on a DOAC protocol. us Bharati Jarrell MD HEMATOLOGY ORDERABLES Final Resu lt [facility] CLIA # [id number] [address] [address] * (ABNORMAL) BASIC METABOLIC PANEL (12/30/2024 5:22 AM CDT) [facility] SODIUM 135(L) 136 - 145 mmol/L 12/30/2024 6:14 AM CDT [facility] POTASSIUM 4.5 3.5 - 5.1 mmol/L 12/30/2024 6:14 AM CDT [facility] CHLORIDE 98 98 - 107 mmol/L 12/30/2024 6:14 AM CDT [facility] CO2 25 22 - 29 mmol/L 12/30/2024 6:14 AM CDT [facility] CALCIUM 9.0 8.8 - 10.2 mg/dL 12/30/2024 6:14 AM CDT [facility] BUN 49(H) 8 - 23 mg/dL 12/30/2024 6:14 AM T [facility] CREATININE 5.55(H) 0.67 - 1.17 mg/dL 12/30/2024 6:14 AM T [facility] GLUCOSE 133(H) 74 - 99 mg/dL 12/30/2024 6:14 AM T [facility] GFR 11(L) >=60 mL/min/1. 73 sq meter 12/30/2024 6:14 AM T [facility] Comment:eGFR calculated with 2020 CKD-EPI equation. Vegetarian diet, extremely high or low muscle mass, and may affect results. Cystatin C with Glomerular Filtration Rate is a suitable alternative for these patients. ANION GAP 12 9 - 20 mmol/L 12/30/2024 6:14 AM T [facility] Blood Venipuncture / Unknown 12/30/2024 5:22 AM CDT 12/30/2024 5:32 AM CDT us Luis Alfredo Harris MD CHEMISTRY ORDERABLES Final R esult [facility] CLIA # [id number] [address] [place] [address] * (ABNORMAL) CBC WITH DIFFERENTIAL (12/30/2024 5:22 AM CDT) Pathologist [facility] WBC 5.0 4.8 - 10.8 K/uL 12/30/2024 5:40 AM T [facility] RBC 3.54(L) 4.60 - 6.20 M/uL 12/30/2024 5:40 AM T [facility] HEMOGLOBIN 10.2(L) 14.0 - 18.0 g/dL 12/30/2024 5:40 AM T [facility] HEMATOCRIT 31.0(L) 41.0 - 53.0 % 12/30/2024 5:40 AM T [facility] MCV 87.6 84.0 - 103.0 fL 12/30/2024 5:40 AM CDT [facility] [employer] [facility] MCH 28.8 27.0 - 34.0 pg 12/30/2024 5:40 AM [facility] [employer] [facility] MCHC 32.9 30.0 - 35.0 g/dL 12/30/2024 5:40 AM [facility] [employer] [facility] PLATELETS 203 140 - 440 K/uL 12/30/2024 5:40 AM [facility] [employer] [facility] MPV 9.7 8.9 - 12.8 fL 12/30/2024 5:40 AM CDT [facility] [employer] [facility] RDW 14.9(H) 11.0 - 14.5 % 12/30/2024 5:40 AM [facility] [employer] [facility] RDW-STDEV 48.1 37.0 - 54.0 fL 12/30/2024 5:40 AM [facility] [employer] [facility] NEUTROPHILS 43 42 - 75 % 12/30/2024 5:40 AM [facility] [employer] [facility] LYMPHOCYTES 46(H) 24 - 44 % 12/30/2024 5:40 AM [facility] [employer] [facility] MONOCYTES 9 2 - 10 % 12/30/2024 5:40 AM [facility] [employer] [facility] EOSINOPHILS 1 0 - 7 % 12/30/2024 5:40 AM [facility] [employer] [facility] BASOPHILS 1 0 - 1 % 12/30/2024 5:40 AM [facility] [employer] [facility] IMMATURE GRANULOCYTES 0 0 - 2 % 12/30/2024 5:40 AM CDT [facility] [employer] [facility] NEUTROPHIL ABSOLUTE 2.16 2.00 - 8.00 K/uL 12/30/2024 5:40 AM [facility] [employer] [facility] LYMPHOCYTE ABSOLUTE 2.29 1.20 - 4.00 K/uL 12/30/2024 5:40 AM CDT [facility] [employer] [facility] MONOCYTE ABSOLUTE 0.43 0.10 - 0.60 K/uL 12/30/2024 5:40 AM CDT [facility] [employer] [facility] EOSINOPHIL ABSOLUTE 0.06 0.00 - 0.70 K/uL 12/30/2024 5:40 AM CDT [facility] BASOPHILS ABSOLUTE 0.06 0.00 - 0.20 K/uL 12/30/2024 5:40 AM CDT [facility] IMMATURE GRANULOCYTES ABSOLUTE 0.01 0.00 - 0.10 K/uL 12/30/2024 5:40 AM CDT [facility] SMEAR REVIEWED: NA - Not Applicable 12/30/2024 5:40 AM CDT [facility] Blood Venipuncture / Unknown 12/30/2024 5:22 AM CDT 12/30/2024 5:33 AM CDT us Luis Alfredo Harris MD HEMATOLOGY ORDERABLES Final Result Performing Organization Address [facility]/ZIP Co de Phone Number [facility] CLIA # [id number] [address] [address] * (ABNORMAL) POC GLUCOSE (12/30/2024 1:55 AM CDT) GLUCOSE POC 149(H) 74 - 99 mg/dL 12/30/2024 1:55 AM CDT [facility] SPECIMEN SOURCE, GLUCOSE POC Capillary 12/30/2024 1:55 AM CDT [facility] Blood, whole 12/30/2024 1:55 AM CDT 12/30/2024 2:15 AM CDT us Bharati Jarrell MD POINT OF CARE TESTING Final Resu lt Performing Organization Address City/[facility]/ZIP Co de Phone Number [facility] CLIA # [id number] [address] [address] * (ABNORMAL) POC GLUCOSE (12/29/2024 8:53 PM CDT) GLUCOSE POC 179(H) 74 - 99 mg/dL 12/29/2024 8:53 PM CDT [facility] SPECIMEN SOURCE, GLUCOSE POC Capillary 12/29/2024 8:53 PM CDT [facility] Blood, whole 12/29/2024 8:53 PM CDT 12/29/2024 9:19 PM CDT Bharati Jarrell MD POINT OF CARE TESTING Final Resu lt Performing Organization Address [facility] Co de Phone Number [facility] CLIA # [id number] [address] [address] * (ABNORMAL) POC GLUCOSE (12/29/2024 4:49 PM CDT) GLUCOSE POC 121(H) 74 - 99 mg/dL 12/29/2024 4:49 PM CDT [facility] SPECIMEN SOURCE, GLUCOSE POC Capillary 12/29/2024 4:49 PM CDT [facility] Blood, whole 12/29/2024 4:49 PM CDT 12/29/2024 5:20 PM CDT us Bharati Jarrell MD POINT OF CARE TESTING Final Resu lt Performing Organization Address [facility] de Phone Number [facility] CLIA # [id number] [address] [address] * (ABNORMAL) POC GLUCOSE (12/29/2024 11:27 AM CDT) GLUCOSE POC 314(H) 74 - 99 mg/dL 12/29/2024 11:27 AM CDT [facility] SPECIMEN SOURCE, GLUCOSE POC Capillary 12/29/2024 11:27 AM CDT [facility] Blood, whole 12/29/2024 11:2 7 AM CDT 12/29/2024 12:21 PM CDT Bharati Jarrell MD POINT OF CARE TESTING Final Resu lt Performing Organization Address [facility]/ZIP Co de Phone Number [facility] CLIA # [id number] [facility] [address] [address] * UNFRACTIONATED HEPARIN MONITORING (12/29/2024 10:35 AM CDT) [facility] ANTI-XA UNFRAC HEP 0.43 See Interpretation IU/mL 12/29/2024 11:22 AM CDT [facility] Blood Venipuncture / Unknown 12/29/2024 10:35 AM CDT 12/29/2024 11:04 AM CDT Narrative [facility] - 12/29/2024 11:22 AM CDT Therapeutic Range: PT/DVT Heparin Protocol 0.3 - 0.7 IU/ml Cardiac Heparin Protocol 0.3 - 0.6 IU/ml The reference range for this test is specific to the anticoagulant and is not appropriate for monitoring patients on a DOAC protocol. Bharati Jarrell MD HEMATOLOGY ORDERABLES Final Resu lt Performing Organization Address [facility] Co de Phone Number [facility] CLIA # [id number] [address] [place] [phone] * (ABNORMAL) POC GLUCOSE (12/29/2024 7:39 AM CDT) [facility] GLUCOSE POC 147(H) 74 - 99 mg/dL 12/29/2024 7:39 AM CDT [facility] SPECIMEN SOURCE, GLUCOSE POC Capillary 12/29/2024 7:39 AM CDT [facility] Blood, whole 12/29/2024 7:39 AM CDT 12/29/2024 7:48 AM CDT Bharati Jarrell MD POINT OF CARE TESTING Final Resu lt Performing Organization Address [facility] Co de Phone Number [facility] CLIA # [id number] [address] [place] [address] * UNFRACTIONATED HEPARIN MONITORING (12/29/2024 4:37 AM CDT) Pathologist [facility] ANTI-XA UNFRAC HEP 0.37 See Interpretation IU/mL 12/29/2024 4:52 AM CDT [facility] Blood Venipuncture / Unknown 12/29/2024 4:37 AM CDT 12/29/2024 4:40 AM CDT Narrative [facility] - 12/29/2024 4:52 AM CDT Therapeutic Range: PT/DVT Heparin Protocol 0.3 - 0.7 IU/ml Cardiac Heparin Protocol 0.3 - 0.6 IU/ml The reference range for this test is specific to the anticoagulant and is not appropriate for monitoring patients on a DOAC protocol. Bharati Jarrell MD HEMATOLOGY ORDERABLES Final Resu lt Performing Organization Address City/[facility] Co de Phone Number [facility] CLIA # [id number] [address] [place] [address] * (ABNORMAL) BASIC METABOLIC PANEL (12/29/2024 4:37 AM CDT) [facility] SODIUM 136 136 - 145 mmol/L 12/29/2024 5:17 AM CDT [facility] POTASSIUM 4.3 3.5 - 5.1 mmol/L 12/29/2024 5:17 AM CDT [facility] CHLORIDE 100 98 - 107 mmol/L 12/29/2024 5:17 AM CDT [facility] CO2 27 22 - 29 mmol/L 12/29/2024 5:17 AM CDT [facility] CALCIUM 8.6(L) 8.8 - 10.2 mg/dL 12/29/2024 5:17 AM CDT [facility] BUN 31(H) 8 - 23 mg/dL 12/29/2024 5:17 AM CDT [facility] CREATININE 4.24(H) 0.67 - 1.17 mg/dL 12/29/2024 5:17 AM CDT [facility] GLUCOSE 169(H) 74 - 99 mg/dL 12/29/2024 5:17 AM CDT [facility] GFR 15(L) >=60 mL/min/1. 73 sq meter 12/29/2024 5:17 AM CDT [facility] Comment:eGFR calculated with 2020 CKD-EPI equation. Vegetarian diet, extremely high or low muscle mass, and may affect results. Cystatin C with Glomerular Filtration Rate is a suitable alternative for these patients. ANION GAP 9 9 - 20 mmol/L 12/29/2024 5:17 AM T [facility] Blood Venipuncture / Unknown 12/29/2024 4:37 AM CDT 12/29/2024 4:42 AM CDT Luis Alfredo Harris MD CHEMISTRY ORDERABLES Final R esult [facility] CLIA # [id number] [address] [place] [phone] * (ABNORMAL) CBC WITH DIFFERENTIAL (12/29/2024 4:37 AM CDT) WBC 4.4(L) 4.8 - 10.8 K/uL 12/29/2024 4:45 AM CDT [facility] RBC 3.61(L) 4.60 - 6.20 M/uL 12/29/2024 4:45 AM CDT [facility] HEMOGLOBIN 10.4(L) 14.0 - 18.0 g/dL 12/29/2024 4:45 AM CDT [facility] HEMATOCRIT 31.5(L) 41.0 - 53.0 % 12/29/2024 4:45 AM [facility] MCV 87.3 84.0 - 103.0 fL 12/29/2024 4:45 AM [facility] MCH 28.8 27.0 - 34.0 pg 12/29/2024 4:45 AM [facility] MCHC 33.0 30.0 - 35.0 g/dL 12/29/2024 4:45 AM [facility] PLATELETS 183 140 - 440 K/uL 12/29/2024 4:45 AM [facility] MPV 9.0 8.9 - 12.8 fL 12/29/2024 4:45 AM [facility] RDW 15.2(H) 11.0 - 14.5 % 12/29/2024 4:45 AM [facility] RDW-STDEV 48.7 37.0 - 54.0 fL 12/29/2024 4:45 AM [facility] NEUTROPHILS 40(L) 42 - 75 % 12/29/2024 4:45 AM [facility] LYMPHOCYTES 47(H) 24 - 44 % 12/29/2024 4:45 AM [facility] MONOCYTES 11(H) 2 - 10 % 12/29/2024 4:45 AM [facility] EOSINOPHILS 1 0 - 7 % 12/29/2024 4:45 AM [facility] BASOPHILS 1 0 - 1 % 12/29/2024 4:45 AM [facility] IMMATURE GRANULOCYTES 0 0 - 2 % 12/29/2024 4:45 AM [facility] NEUTROPHIL ABSOLUTE 1.77(L) 2.00 - 8.00 K/uL 12/29/2024 4:45 AM [facility] LYMPHOCYTE ABSOLUTE 2.06 1.20 - 4.00 K/uL 12/29/2024 4:45 AM [facility] MONOCYTE ABSOLUTE 0.46 0.10 - 0.60 K/uL 12/29/2024 4:45 AM CDT [facility] EOSINOPHIL ABSOLUTE 0.04 0.00 - 0.70 K/uL 12/29/2024 4:45 AM CDT [facility] BASOPHILS ABSOLUTE 0.06 0.00 - 0.20 K/uL 12/29/2024 4:45 AM CDT [facility] IMMATURE GRANULOCYTES ABSOLUTE 0.00 0.00 - 0.10 K/uL 12/29/2024 4:45 AM CDT [facility] SMEAR REVIEWED: NA - Not Applicable 12/29/2024 4:45 AM CDT [facility] Blood Venipuncture / Unknown 12/29/2024 4:37 AM CDT 12/29/2024 4:40 AM CDT us Luis Alfredo Harris MD HEMATOLOGY ORDERABLES Final Result Performing Organization Address [facility] Co de Phone Number [facility] CLIA # [id number] [address] [place] [phone] * UNFRACTIONATED HEPARIN MONITORING (12/28/2024 10:12 PM CDT) ANTI-XA UNFRAC HEP 0.23 See Interpretation IU/mL 12/28/2024 10:47 PM CDT [facility] Blood Venipuncture / Unknown 12/28/2024 10:12 PM CDT 12/28/2024 10:33 PM CDT Narrative [facility] - 12/28/2024 10:47 PM CDT Therapeutic Range: PT/DVT Heparin Protocol 0.3 - 0.7 IU/ml Cardiac Heparin Protocol 0.3 - 0.6 IU/ml The reference range for this test is specific to the anticoagulant and is not appropriate for monitoring patients on a DOAC protocol. us Bharati Jarrell MD HEMATOLOGY ORDERABLES Final Resu lt Performing Organization Address City/[facility]/ZIP Co de Phone Number [facility] CLIA # [id number] [address] [address] [place] [address] * (ABNORMAL) POC GLUCOSE (12/28/2024 8:32 PM CDT) [facility] GLUCOSE POC 200(H) 74 - 99 mg/dL 12/28/2024 8:32 PM CDT [facility] SPECIMEN SOURCE, GLUCOSE POC Capillary 12/28/2024 8:32 PM CDT [facility] Blood, whole 12/28/2024 8:32 PM CDT 12/29/2024 12:30 AM CDT us Bharati Jarrell MD POINT OF CARE TESTING Final Resu lt Performing Organization Address [facility] Co de Phone Number [facility] CLIA # [id number] [address] [address] [place] [address] * (ABNORMAL) POC GLUCOSE (12/28/2024 4:56 PM CDT) [facility] GLUCOSE POC 287(H) 74 - 99 mg/dL 12/28/2024 4:56 PM CDT [facility] SPECIMEN SOURCE, GLUCOSE POC Capillary 12/28/2024 4:56 PM CDT [facility] Blood, whole 12/28/2024 4:56 PM CDT 12/28/2024 5:27 PM CDT us Bharati Jarrell MD POINT OF CARE TESTING Final Resu lt Performing Organization Address City/[facility]/ZIP Co de Phone Number [facility] CLIA # [id number] [address] [place] [address] * UNFRACTIONATED HEPARIN MONITORING (12/28/2024 3:14 PM CDT) ANTI-XA UNFRAC HEP 0.18 See Interpretation IU/mL 12/28/2024 3:33 PM CDT [facility] Blood Venipuncture / Unknown 12/28/2024 3:14 PM CDT 12/28/2024 3:21 PM CDT Narrative [facility] - 12/28/2024 3:33 PM CDT Therapeutic Range: PT/DVT Heparin Protocol 0.3 - 0.7 IU/ml Cardiac Heparin Protocol 0.3 - 0.6 IU/ml The reference range for this test is specific to the anticoagulant and is not appropriate for monitoring patients on a DOAC protocol. us Luis Alfredo Harris MD HEMATOLOGY ORDERABLES Final Result Performing Organization Address City/State/[facility] Co de Phone Number [facility] CLIA # [id number] [address] [place] [phone] * ECHO COMPLETE - CONTRAST AND STRAIN IF INDICATED (12/28/2024 3:06 PM CDT) EJECTION FRACTION 50 INTERFACE SYSTEM 12/28/2024 2:30 PM CDT [facility] INTERFACE SYSTEM - 12/28/2024 4:43 PM CDT [facility] Cardiovascular Services Echocardiography Laboratory [address] [place] [address] Transthoracic Echocardiography Patient: Ida Morelos Study ID: ECHO COMPLETE - Gene Gender: M : 1960 Age: 64 Room: [facility] Study 12/28/2024 Pt Inpatient Date: Status: Study 02:30:44 PM [facility] #: [id number] Time: Ordering:Nabil Blue Child Care Leader: Marcy Sauceda Indications and History: TN/ACS; Initial evaluation post TN. Summary and Conclusion: - Left ventricle: The cavity size is normal. Wall thickness is increased in a pattern of mild LVH. Possible mild hypokinesis of the lateral wall. Global systolic function is at the lower limits of normal. The estimated ejection fraction is 50-55%. For Epic reporting: the left ventricular ejection fraction is 50% by visual assessment. Grade I diastolic dysfunction. The longitudinal strain is -17.0% (Normal range is -18 to -25). - Right ventricle: The cavity size is normal. Systolic function is normal. Systolic pressure is within the normal range. - Left atrium: The atrium is mildly dilated. - Mitral valve: The annulus is mildly calcified. Comparison: Compared to the previous study, LV systolic functionhas improved. Prior Study Date: 10/21/2024. Procedure information: Comparison is made to the study of 10/21/2024. Study status: Routine. Procedure: A transthoracic echocardiogram was performed. Image quality was adequate. Scanning was performed from the parasternal, apical, subcostal, and suprasternal notch acoustic windows. Study components: M-mode, 2D, complete spectral Doppler, and color Doppler. Height: 175.3cm. Height: 69in. Weight: 100kg. Weight: 220.5lb. BMI: 32.5kg/m^2. BSA: 2.24m^2. Blood pressure: 138/69 Study date: 12/28/2024. Study time: 02:30 PM. Location: Bedside. Cardiac Anatomy: LEFT VENTRICLE: The cavity size is normal. Wall thickness is increased in a pattern of mild LVH. Global systolic function is at the lower limits of normal. The estimated ejection fraction is 50-55%. For Epic reporting: the left ventricular ejection fraction is 50% by visual assessment. The longitudinal strain is -17.0% (Normal range is -18 to -25). Grade I diastolic dysfunction. RIGHT VENTRICLE: The cavity size is normal. Systolic function is normal. Systolic pressure is within the normal range. LEFT ATRIUM: The atrium is mildly dilated. RIGHT ATRIUM: The atrium is normal in size. ATRIAL SEPTUM: No obvious PFO or ASD identified by 2D imaging and color Doppler. AORTIC VALVE: Not well visualized. There is no stenosis. There is no significant regurgitation. MITRAL VALVE: The annulus is mildly calcified. Mobility is not restricted. No evidence for prolapse. There is no evidence for stenosis. There is no significant regurgitation. TRICUSPID VALVE: Structurally normal valve. Mobility is unrestricted. There is no evidence for stenosis. There is no significant regurgitation. PULMONIC VALVE: Not well visualized. The valve appears to be grossly normal. There is no evidence for stenosis. There is no significant regurgitation. PERICARDIUM: There is no pericardial effusion. AORTA: Aortic root: The root is not dilated. Aortic arch: The vessel is not dilated. INTRACARDIAC MASS THROMBUS: No apparent intracavitary masses or thrombi detected. Measurements Left ventricle Value LVOT continued Value GLS, 2D -17.0 % Qs 4.8 L/min SIDNEY, LAX 4.7 cm Qs/bsa 2.2 L/(min-m^2) ESD, LAX 3.3 cm SV/bsa 29 ml/m^2 SIDNEY/bsa, LAX 2.1 cm/m^2 ESD/bsa, LAX 1.5 cm/m^2 Left atrium Value FS, LAX 30 % AP dim, ES 4.3 cm ESD major ax, A4C 8.5 cm AP dim index, ES 1.9 cm/m^2 ESD/bsa major ax, A4C 3.8 cm/m^2 SI dim, A4C 5.4 cm SIDNEY minor ax, A4C 8.5 cm Area ES, A4C 19 cm^2 SIDNEY/bsa minor ax, A4C 3.8 cm/m^2 Vol, S 66 ml SIDNEY major ax, A2C 10.0 cm Vol/bsa, S 29 ml/m^2 ESD major ax, A2C 8.4 cm Vol, ES, 1-p A4C 54 ml SIDNEY/bsa major ax, A2C 4.5 cm/m^2 Vol/bsa, ES, 1-p A4C 24 ml/m^2 ESD/bsa major ax, A2C 3.8 cm/m^2 Vol, ES, 1-p A2C 71 ml IVS, ED 1.3 cm Vol/bsa, ES, 1-p A2C 32 ml/m^2 ESD 3.3 cm Vol, ES, A/L 57 ml ESD/bsa 1.5 cm/m^2 Vol/bsa, ES, A/L 25 ml/m^2 PW, ED 1.3 cm IVS/PW, ED 0.99 Right atrium Value EDV, 1-p A2C 148 ml Area, ES 13 cm^2 ESV, 1-p A2C 66 ml Area, ES, A4C 13 cm^2 EF, 1-p A2C 45 % EDV/bsa, 1-p A2C 66 ml/m^2 Aortic valve Value ESV/bsa, 1-p A2C 30 ml/m^2 Peak v, S 143.92 cm/sec EDV, 1-p A4C 148 ml VTI, S 25.4 cm ESV, 1-p A4C 83 ml Mean grad, S 5 mm Hg EF, 1-p A4C 44 % Peak grad, S 8 mm Hg SV, 1-p A4C 65 ml LVOT/AV, VTI ratio 0.68 EDV/bsa, 1-p A4C 66 ml/m^2 SANTHOSH, VTI 2.57 cm^2 ESV/bsa, 1-p A4C 37 ml/m^2 SANTHOSH/bsa, VTI 1.15 cm^2/m^2 SV/bsa, 1-p A4C 29 ml/m^2 LVOT/AV, Vpeak ratio 0.71 EDV, 2-p 149 ml SANTHOSH, Vmax 2.66 cm^2 ESV, 2-p 82 ml SANTHOSH/bsa, Vmax 1.19 cm^2/m^2 EF, 2-p 45 % SV, 2-p 81 ml Mitral valve Value EDV/bsa, 2-p 66 ml/m^2 Peak E 66.43 cm/sec ESV/bsa, 2-p 37 ml/m^2 Peak A 97.7 cm/sec SV/bsa, 2-p 36.4 ml/m^2 Decel time 197 ms PHT 57 ms LVOT Value Peak E/A ratio 0.68 Diam, S 2.2 cm MVA, PHT 3.85 cm^2 Area 3.8 cm^2 MVA/bsa, PHT 1.72 cm^2/m^2 Peak josep, S 101.81 cm/sec VTI, S 17.4 cm Other Value Peak grad, S 4 mm Hg SV 65 ml Legend: (L) and (H) nir values outside specified reference range. [facility] Echo Labs are accredited with the [facility] Accreditation Commission - Echocardiography. Prepared and Electronically Authenticated Nabil Blue Confirmed 12/28/2024 16:43 Procedure Note Nabil Blue MD - 12/28/2024 [facility] Cardiovascular Services Echocardiography Laboratory [facility] [place] [address] Transthoracic Echocardiography Patient: Ida Morelos Study ID: ECHOCOMPLETE - Gene Gender: Celia : 1960 Age: 64 Room: [facility] Study 12/28/2024 Pt Inpatient Date: Status: Study 02:30:44 PM CSN #: [id number] Time: Ordering:Nabil Blue Child Care Leader: Marcy Sauceda Indications and History: TN/ACS; Initial evaluation post TN. Summary and Conclusion: - Left ventricle: The cavity size is normal. Wall thickness is increasedin a pattern of mild LVH. Possible mild hypokinesis of the lateral wall.Global systolic function is at the lower limits of normal. The estimatedejection fraction is 50-55%. For Epic reporting: the left ventricular ejection fraction is 50% by visual assessment. Grade I diastolic dysfunction.The longitudinal strain is -17.0% (Normal range is -18 to -25). - Right ventricle: The cavity size is normal. Systolic function isnormal. Systolic pressure is within the normal range. - Left atrium: The atrium is mildly dilated. - Mitral valve: The annulus is mildly calcified. Comparison: Compared to the previous study, LV systolic functionhasimproved. Prior Study Date: 10/21/2024. Procedure information: Comparison is made to the study of 10/21/2024.Study status: Routine. Procedure: A transthoracic echocardiogram wasperformed. Image quality was adequate. Scanning was performed from the parasternal, apical, subcostal, and suprasternal notch acoustic windows.Study components: M-mode, 2D, complete spectral Doppler, and color Doppler. Height: 175.3cm. Height: 69in. Weight: 100kg. Weight: 220.5lb.BMI: 32.5kg/m^2. BSA: 2.24m^2. Blood pressure: 138/69 Studydate: 12/28/2024. Study time: 02:30 PM. Location: Bedside. Cardiac Anatomy: LEFT VENTRICLE: The cavity size is normal. Wall thickness is increased kota pattern of mild LVH. Global systolic function is at the lower limits of normal. The estimated ejection fraction is 50-55%. For Epic reporting:the left ventricular ejection fraction is 50% by visual assessment. The longitudinal strain is -17.0% (Normal range is -18 to -25). Grade Idiastolic dysfunction. RIGHT VENTRICLE: The cavity size is normal. Systolic function isnormal. Systolic pressure is within the normal range. LEFT ATRIUM: The atrium is mildly dilated. RIGHT ATRIUM: The atrium is normal in size. ATRIAL SEPTUM: No obvious PFO or ASD identified by 2D imaging and color Doppler. AORTIC VALVE: Not well visualized. There is no stenosis. There is no significant regurgitation. MITRAL VALVE: The annulus is mildly calcified. Mobility is notrestricted. No evidence for prolapse. There is no evidence for stenosis. There is no significant regurgitation. TRICUSPID VALVE: Structurally normal valve. Mobility isunrestricted. There is no evidence for stenosis. There is no significantregurgitation. PULMONIC VALVE: Not well visualized. The valve appears to be grosslynormal. There is no evidence for stenosis. There is no significantregurgitation. PERICARDIUM: There is no pericardial effusion. AORTA: Aortic root: The root is not dilated. Aortic arch: The vessel is not dilated. INTRACARDIAC MASS THROMBUS: No apparent intracavitary masses or thrombi detected. Measurements Left ventricle Value LVOT continued Value GLS, 2D -17.0 % Qs 4.8L/min SIDNEY, LAX 4.7 cm Qs/bsa 2.2L/(min-m^2) ESD, LAX 3.3 cm SV/bsa 29ml/m^2 SIDNEY/bsa, LAX 2.1 cm/m^2 ESD/bsa, LAX 1.5 cm/m^2 Left atrium Value FS, LAX 30 % AP dim, ES 4.3 cm ESD major ax, A4C 8.5 cm AP dim index, ES 1.9cm/m^2 ESD/bsa major ax, A4C 3.8 cm/m^2 SI dim, A4C 5.4 cm SIDNEY minor ax, A4C 8.5 cm Area ES, A4C 19 cm^2 SIDNEY/bsa minor ax, A4C 3.8 cm/m^2 Vol, S 66 ml SIDNEY major ax, A2C 10.0 cm Vol/bsa, S 29ml/m^2 ESD major ax, A2C 8.4 cm Vol, ES, 1-p A4C 54 ml SIDNEY/bsa major ax, A2C 4.5 cm/m^2 Vol/bsa, ES, 1-p A4C 24ml/m^2 ESD/bsa major ax, A2C 3.8 cm/m^2 Vol, ES, 1-p A2C 71 ml IVS, ED 1.3 cm Vol/bsa, ES, 1-p A2C 32ml/m^2 ESD 3.3 cm Vol, ES, A/L 57 ml ESD/bsa 1.5 cm/m^2 Vol/bsa, ES, A/L 25ml/m^2 PW, ED 1.3 cm IVS/PW, ED 0.99 Right atrium Value EDV, 1-p A2C 148 ml Area, ES 13 cm^2 ESV, 1-p A2C 66 ml Area, ES, A4C 13 cm^2 EF, 1-p A2C 45 % EDV/bsa, 1-p A2C 66 ml/m^2 Aortic valve Value ESV/bsa, 1-p A2C 30 ml/m^2 Peak v, S 143.92cm/sec EDV, 1-p A4C 148 ml VTI, S 25.4 cm ESV, 1-p A4C 83 ml Mean grad, S 5 mmHg EF, 1-p A4C 44 % Peak grad, S 8 mmHg SV, 1-p A4C 65 ml LVOT/AV, VTI ratio 0.68 EDV/bsa, 1-p A4C 66 ml/m^2 SANTHOSH, VTI 2.57 cm^2 ESV/bsa, 1-p A4C 37 ml/m^2 SANTHOSH/bsa, VTI 1.15cm^2/m^2 SV/bsa, 1-p A4C 29 ml/m^2 LVOT/AV, Vpeak ratio 0.71 EDV, 2-p 149 ml SANTHOSH, Vmax 2.66 cm^2 ESV, 2-p 82 ml SANTHOSH/bsa, Vmax 1.19cm^2/m^2 EF, 2-p 45 % SV, 2-p 81 ml Mitral valve Value EDV/bsa, 2-p 66 ml/m^2 Peak E 66.43cm/sec ESV/bsa, 2-p 37 ml/m^2 Peak A 97.7cm/sec SV/bsa, 2-p 36.4 ml/m^2 Decel time 197 ms PHT 57 ms LVOT Value Peak E/A ratio 0.68 Diam, S 2.2 cm MVA, PHT 3.85 cm^2 Area 3.8 cm^2 MVA/bsa, PHT 1.72cm^2/m^2 Peak josep, S 101.81 cm/sec VTI, S 17.4 cm Other Value Peak grad, S 4 mm Hg SV 65 ml Legend: (L) and (H) nir values outside specified reference range. [facility] are accredited with theIntersocietal Accreditation Commission - Echocardiography. Prepared and Electronically Authenticated Nabil Blue Confirmed 12/28/2024 16:43 us Nabil Blue MD US ORDERABLES Jen l Result INTERFACE SYSTEM Refer to clinic/hospital department * (ABNORMAL) POC GLUCOSE (12/28/2024 11:53 AM CDT) Pathologist [facility] GLUCOSE POC 133(H) 74 - 99 mg/dL 12/28/2024 11:53 AM CDT [facility] SPECIMEN SOURCE, GLUCOSE POC Capillary 12/28/2024 11:53 AM CDT [facility] Blood, whole 12/28/2024 11:5 3 AM CDT 12/28/2024 12:01 PM CDT Luis Alfredo Harris MD POINT OF CARE TESTING Final Result Performing Organization Address [facility] Co de Phone Number [facility] CLIA # [id number] [address] [address] * UNFRACTIONATED HEPARIN MONITORING (12/28/2024 8:16 AM CDT) ANTI-XA UNFRAC HEP 0.11 See Interpretation IU/mL 12/28/2024 8:40 AM CDT [facility] Blood Venipuncture / Unknown 12/28/2024 8:16 AM CDT 12/28/2024 8:21 AM CDT Narrative [facility] - 12/28/2024 8:40 AM CDT Therapeutic Range: PT/DVT Heparin Protocol 0.3 - 0.7 IU/ml Cardiac Heparin Protocol 0.3 - 0.6 IU/ml The reference range for this test is specific to the anticoagulant and is not appropriate for monitoring patients on a DOAC protocol. us Bharati Jarrell MD HEMATOLOGY ORDERABLES Final Resu lt Performing Organization Address City/[facility]/ZIP Co de Phone Number [facility] CLIA # [id number] [address] [address] * XR CHEST PA OR AP 1 VW (12/28/2024 2:20 AM CDT) Anatomical Region Laterality Modality Chest Computed Radiogr aphy 12/28/2024 2:20 AM CDT Impressions 12/28/2024 7:35 AM CDT IMPRESSION: Atelectasis and/or infiltrate in the lower lungs bilaterally, more evident on the left. Small bilateral pleural effusions. Pulmonary venous hypertension. Right IJ tunneled dialysis catheter with tip in the low SVC. Remainder unremarkable. Narrative 12/28/2024 7:35 AM CDT Exam: Radiographs: XR CHEST PA OR AP 1 VW Indication: Chest pain Comparison: Chest x-ray from yesterday Procedure Note Kalpesh Claros MD - 12/28/2024 Exam: Radiographs: XR CHEST PA OR AP 1 VW Indication: Chest pain Comparison: Chest x-ray from yesterday IMPRESSION: Atelectasis and/or infiltrate in the lower lungs bilaterally, more evident on the left. Small bilateral pleural effusions. Pulmonary venous hypertension. Right IJ tunneled dialysis catheter with tip in the low SVC. Remainder unremarkable. Luis Alfredo Harris MD DIAGNOSTIC IMAGING ORDERABLE S Final Result * (ABNORMAL) TROPONIN 6 HR, 5TH GEN (12/28/2024 1:59 AM CDT) TROPONIN T, 6 HR 5TH GEN 153(HH) <=15 ng/L 12/28/2024 2:42 AM CDT [facility] [employer] [facility] Blood Venipuncture / Unknown 12/28/2024 1:59 AM CDT 12/28/2024 2:02 AM CDT Narrative [facility] [employer] [facility] - 12/28/2024 2:42 AM CDT Troponin elevated. Unable to calculate delta. us Richard Esparza MD CHEMISTRY ORDERABLES Final Result [facility] CLIA # [id number] [facility] [address] [place] [address] * EKG 12-LEAD (12/28/2024 1:12 AM CDT) 12/28/2024 1:12 AM CDT Narrative INTERFACE SYSTEM - 12/28/2024 5:46 AM CDT [address] [address] Test Date: 2024-12-28 Pat Name: IDA MORELOS Department: 11 Room: 07 29 Gender: Male Crimper Operator: [id number] : 1960 Requested By: Order Number: [id number] Reading MD: Joshua Crowder Measurements Intervals [place] Rate: 75 P: 32 UT: 174 QRS: -53 QRSD: 124 T: 79 QT: 416 QTc: 464 Interpretive Statements Normal sinus rhythm Left axis deviation Septal infarct, age undetermined Abnormal ECG Electronically Signed On 12-28-2024 5:46:12 CDT by Joshua Crowder Procedure Note Joshua Crowder MD - 12/28/[address] [address] Test Date: 2024-12-28 Pat Name: IDA MORELOS Department: 11 Room: 07 29 Gender: Male Crimper Operator: [id number] : 1960 Requested By: Order Number: [id number] Reading MD: Joshua Crowder Measurements Intervals [place] Rate: 75 P: 32 UT: 174 QRS: -53 QRSD: 124 T: 79 QT: 416 QTc: 464 Interpretive Statements Normal sinus rhythm Left axis deviation Septal infarct, age undetermined Abnormal ECG Electronically Signed On 12-28-2024 5:46:12 CDT by Joshua Crowder us Richard Esparza MD ECG ORDERABLES Final Resu lt INTERFACE SYSTEM Refer to clinic/hospital department * (ABNORMAL) LIPID RFLX (12/28/2024 1:09 AM CDT) CHOLESTEROL 122 <200 mg/dL 12/28/2024 6:02 AM CDT [facility] TRIGLYCERIDE 120 <150 mg/dL 12/28/2024 6:02 AM CDT [facility] HDL 32(L) 40 - 59 mg/dL 12/28/2024 6:02 AM CDT [facility] LDL CALCULATED 66 <100 mg/dL 12/28/2024 6:02 AM T [facility] NON-HDL CHOLESTEROL 90 <130 mg/dL 12/28/2024 6:02 AM T [facility] Blood Venipuncture / Unknown 12/28/2024 1:09 AM CDT 12/28/2024 1:23 AM CDT [facility] - 12/28/2024 6:02 AM CDT TOTAL CHOLESTEROL mg/dL Desirable <200 Borderline high 200-239 High >=240 TRIGLYCERIDES mg/dL Normal <150 Borderline high 150-199 High 200-499 Very high >=500 HDL CHOLESTEROL mg/dL Low <40 Normal 40-59 Desirable >=60 NON HDL CHOLESTEROL mg/dL Optimal <130 Near Optimal 130-159 Borderline High 160-189 Very High >=190 CALCULATED LDL mg/dL LDL <70, OPTIMAL if have Atherosclerotic cardiovascular disease (ASCVD) or intermediate or higher (>7.5%) 10 year risk of ASCVD including most adults with diabetes. LDL <100, Optimal in adult patients with low (<7.5%) 10 year ASCVD risk LDL 100-160, Suboptimal LDL >160, High LDL >190, Very high LDL calculated using the Friedewald equation. ATPIII Guidelines Reference Ranges for Lipid Panels (NCEP/AMA) . Luis Alfredo Harris MD CHEMISTRY ORDERABLES Final R esult [facility] CLIA # [id number] [address] [place] [id number] * TSH (12/28/2024 1:09 AM CDT) TSH 3.23 0.27 - 4.20 uIU/mL 12/28/2024 5:59 AM T [facility] Blood Venipuncture / Unknown 12/28/2024 1:09 AM CDT 12/28/2024 1:23 AM CDT us Luis Alfredo Harris MD CHEMISTRY ORDERABLES Final R esult Performing Organization Address [facility]/ZIP Co de Phone Number [facility] CLIA # [id number] [address] [address] [place] [address] * UNFRACTIONATED HEPARIN MONITORING (12/28/2024 1:09 AM CDT) Pathologist [facility] ANTI-XA UNFRAC HEP <0.10 See Interpretation IU/mL 12/28/2024 1:42 AM CDT [facility] Blood Venipuncture / Unknown 12/28/2024 1:09 AM CDT 12/28/2024 1:23 AM CDT Narrative [facility] - 12/28/2024 1:42 AM CDT Therapeutic Range: PT/DVT Heparin Protocol 0.3 - 0.7 IU/ml Cardiac Heparin Protocol 0.3 - 0.6 IU/ml The reference range for this test is specific to the anticoagulant and is not appropriate for monitoring patients on a DOAC protocol. us Richard Esparza MD HEMATOLOGY ORDERABLES Jen l Result Performing Organization Address [facility] Co de Phone Number [facility] CLIA # [id number] [address] [address] * (ABNORMAL) BASIC METABOLIC PANEL (12/28/2024 1:09 AM CDT) [facility] SODIUM 140 136 - 145 mmol/L 12/28/2024 1:54 AM CDT [facility] POTASSIUM 3.9 3.5 - 5.1 mmol/L 12/28/2024 1:54 AM CDT [facility] CHLORIDE 101 98 - 107 mmol/L 12/28/2024 1:54 AM CDT [facility] CO2 26 22 - 29 mmol/L 12/28/2024 1:54 AM CDT [facility] CALCIUM 8.7(L) 8.8 - 10.2 mg/dL 12/28/2024 1:54 AM CDT [facility] BUN 40(H) 8 - 23 mg/dL 12/28/2024 1:54 AM CDT [facility] CREATININE 4.42(H) 0.67 - 1.17 mg/dL 12/28/2024 1:54 AM T [facility] GLUCOSE 208(H) 74 - 99 mg/dL 12/28/2024 1:54 AM T [facility] GFR 14(L) >=60 mL/min/1. 73 sq meter 12/28/2024 1:54 AM T [facility] Comment:eGFR calculated with 2020 CKD-EPI equation. Vegetarian diet, extremely high or low muscle mass, and may affect results. Cystatin C with Glomerular Filtration Rate is a suitable alternative for these patients. ANION GAP 13 9 - 20 mmol/L 12/28/2024 1:54 AM T [facility] Blood Venipuncture / Unknown 12/28/2024 1:09 AM CDT 12/28/2024 1:23 AM CDT Richard Esparza MD CHEMISTRY ORDERABLES Final Result [facility] CLIA # [id number] [address] [place] [id number] * (ABNORMAL) PTT (12/28/2024 1:09 AM CDT) PTT 44.8(H) 24.8 - 37.2 seconds 12/28/2024 1:42 AM CDT [facility] Blood Venipuncture / Unknown 12/28/2024 1:09 AM CDT 12/28/2024 1:23 AM CDT Narrative [facility] - 12/28/2024 1:42 AM CDT Therapeutic Range: Hi-level PE/DVT heparin protocol 80.1 - 95.0 sec Lo-level PE/DVT heparin protocol 70.1 - 85.0 sec Cardiac Heparin Protocol 70.1 - 100.0 sec Richard Esparza MD HEMATOLOGY ORDERABLES Jen l Result Performing Organization Address [facility] de Phone Number [facility] CLIA # [id number] [address] [address] [place] [address] * PROTIME-INR (12/28/2024 1:09 AM CDT) PROTIME 14.4 12.7 - 14.9 Seconds 12/28/2024 1:42 AM CDT [facility] INR 1.1 0.8 - 1.2 12/28/2024 1:42 AM CDT [facility] Blood Venipuncture / Unknown 12/28/2024 1:09 AM CDT 12/28/2024 1:23 AM CDT Narrative [facility] [employer] [facility] - 12/28/2024 1:42 AM CDT Expected Values for INR: DVT/PE Goal INR 2.5; range 2.0 - 3.0 Valve Replacement Tissue Goal INR 2.5; range 2.0 - 3.0 Valve Replacement Mechanical Goal INR 3.0; range 2.5 - 3.5 POST-TN Goal INR 2.5; range 2.0 - 3.0 or Goal INR 3.0; range 2.5 - 3.5 Atrial Fibrillation Goal INR 2.5; range 2.0 - 3.0 Ischemic Stroke Goal INR 2.5; range 2.0 - 3.0 Richard Esparza MD HEMATOLOGY ORDERABLES Jen l Result Performing Organization Address [facility]/ZIP Co de Phone Number [facility] CLIA # [id number] [address] [facility] [place] [address] * (ABNORMAL) CBC WITH DIFFERENTIAL (12/28/2024 1:09 AM CDT) [facility] WBC 4.1(L) 4.8 - 10.8 K/uL 12/28/2024 1:30 AM T [facility] RBC 3.45(L) 4.60 - 6.20 M/uL 12/28/2024 1:30 AM [facility] HEMOGLOBIN 9.9(L) 14.0 - 18.0 g/dL 12/28/2024 1:30 AM [facility] HEMATOCRIT 29.7(L) 41.0 - 53.0 % 12/28/2024 1:30 AM [facility] MCV 86.1 84.0 - 103.0 fL 12/28/2024 1:30 AM [facility] MCH 28.7 27.0 - 34.0 pg 12/28/2024 1:30 AM [facility] MCHC 33.3 30.0 - 35.0 g/dL 12/28/2024 1:30 AM [facility] PLATELETS 202 140 - 440 K/uL 12/28/2024 1:30 AM [facility] MPV 9.2 8.9 - 12.8 fL 12/28/2024 1:30 AM [facility] RDW 15.4(H) 11.0 - 14.5 % 12/28/2024 1:30 AM [facility] RDW-STDEV 47.8 37.0 - 54.0 fL 12/28/2024 1:30 AM [facility] NEUTROPHILS 42 42 - 75 % 12/28/2024 1:30 AM [facility] LYMPHOCYTES 46(H) 24 - 44 % 12/28/2024 1:30 AM [facility] MONOCYTES 11(H) 2 - 10 % 12/28/2024 1:30 AM [facility] EOSINOPHILS 1 0 - 7 % 12/28/2024 1:30 AM [facility] BASOPHILS 1 0 - 1 % 12/28/2024 1:30 AM CDT [facility] IMMATURE GRANULOCYTES 0 0 - 2 % 12/28/2024 1:30 AM CDT [facility] NEUTROPHIL ABSOLUTE 1.72(L) 2.00 - 8.00 K/uL 12/28/2024 1:30 AM CDT [facility] LYMPHOCYTE ABSOLUTE 1.88 1.20 - 4.00 K/uL 12/28/2024 1:30 AM CDT [facility] MONOCYTE ABSOLUTE 0.45 0.10 - 0.60 K/uL 12/28/2024 1:30 AM CDT [facility] EOSINOPHIL ABSOLUTE 0.03 0.00 - 0.70 K/uL 12/28/2024 1:30 AM CDT [facility] BASOPHILS ABSOLUTE 0.04 0.00 - 0.20 K/uL 12/28/2024 1:30 AM CDT [facility] IMMATURE GRANULOCYTES ABSOLUTE 0.01 0.00 - 0.10 K/uL 12/28/2024 1:30 AM T [facility] SMEAR REVIEWED: NA - Not Applicable 12/28/2024 1:30 AM [facility] Blood Venipuncture / Unknown 12/28/2024 1:09 AM CDT 12/28/2024 1:23 AM CDT Richard Esparza MD HEMATOLOGY ORDERABLES Jen l Result [facility] CLIA # [id number] [address] [place] [id number] documented in this encounter Visit Diagnoses Diagnosis NSTEMI (non-ST elevated myocardial infarction) ([facility])- Primary Acute myocardial infarction, subendocardial infarction, episode of care unspecified Acute chest pain Chest pain, unspecified ESRD (end stage renal disease) on dialysis ([facility]) End stage renal disease Elevated troponin Other abnormal blood chemistry Normocytic anemia Anemia, unspecified Leukopenia, unspecified type Atherosclerosis of [place] coronary artery of [place] heart without angina pectoris NSTEMI (non-ST elevated myocardial infarction) ([facility]) Acute myocardial infarction, subendocardial infarction, episode of care unspecified End stage renal disease ([facility]) End stage renal disease S/P PTCA (percutaneous transluminal coronary angioplasty) Postsurgical percutaneous transluminal coronary angioplasty status Type 2 diabetes mellitus with hyperglycemia [place] Type II or unspecified type diabetes mellitus without mention of complication, not stated as uncontrolled Chronic combined systolic and diastolic CHF (congestive heart failure) [place] Diabetic polyneuropathy associated with type 2 diabetes mellitus [place] ESRD on hemodialysis [place] End stage renal disease Essential hypertension Unspecified essential hypertension GERD (gastroesophageal reflux disease) Esophageal reflux History of coronary artery stent placement History of stroke without residual deficits Transient ischemic attack (TIA), and cerebral infarction without residual deficits Mixed hyperlipidemia Chronic anemia Anemia, unspecified ESRD (end stage renal disease) on dialysis [place] End stage renal disease Ischemic dilated cardiomyopathy ([facility] Other specified forms of chronic ischemic heart disease Acute chest pain Chest pain, unspecified Elevated troponin Other abnormal blood chemistry NSTEMI (non-ST elevated myocardial infarction) ([facility]) Acute myocardial infarction, subendocardial infarction, episode of care unspecified End stage renal disease ([facility] End stage renal disease documented in this encounter Administered Medications Inactive Administered Medications - up to 3 most recent administrations Medication Order MAR Action Action Date Dose Rate Site acetaminophen (TYLENOL) tablet 650 mg 650 mg, Oral, EVERY 6 HOURS PRN, Starting on Tue12/28/24 at 0529, Until Tue01/01/25 at 1844, Other (See Comment), See admin instructions, Routine Given 12/31/2024 7:10 PM CDT 650 mg Given 12/30/2024 12:15 AM CDT 650 mg Given 12/28/2024 5:12 PM CDT 650 mg amLODIPine (NORVASC) tablet 10 mg 10 mg, Oral, DAILY, First dose on Tue12/28/24 at 0900, Until Discontinued, Routine, Previous Med: amLODIPine (NORVASC) 5 mg tablet - Orig Sig - Take 10 mg by mouth daily. Given 01/01/2025 9:10 AM CDT 10 mg Given 12/31/2024 3:56 PM CDT 10 mg Given 12/30/2024 9:12 AM CDT 10 mg aspirin (SHILA CHEWABLE) chewable tablet 81 mg 81 mg, Oral, ONE TIME ONLY, 1 dose, On Tue12/28/24 at 0115, Routine Given 12/28/2024 1:17 AM CDT 81 mg aspirin (ECOTRIN EC) tablet 81 mg 81 mg, Oral, DAILY, First dose on Tue12/29/24 at 0900, Until Discontinued, Routine, Previous Med: aspirin (ECOTRIN EC) 81 mg Tablet, Delayed Release (E.C.) - Orig Sig - Take 81 mg by mouth daily. Given 01/01/2025 9:10 AM CDT 81 mg Given 12/30/2024 9:12 AM CDT 81 mg Given 12/29/2024 9:03 AM CDT 81 mg atorvastatin (LIPITOR) tablet 80 mg 80 mg, Oral, DAILY AT BEDTIME, First dose on Tue12/28/24 at 2100, Until Discontinued, Routine Given 12/31/2024 8:25 PM CDT 80 mg Given 12/30/2024 8:46 PM CDT 80 mg Given 12/29/2024 8:53 PM CDT 80 mg atropine injection 0.5 mg 0.5 mg, IV, EVERY 5 MINUTES PRN, 3 doses, Starting on Tue01/01/25 at 1413, Until Tue01/01/25 at 1844, Heart Rate, Bradycardia, Routine, Post-Procedure (Invasive Cardiology) clopidogreL (PLAVIX) tablet 75 mg 75 mg, Oral, DAILY, First dose on Tue12/28/24 at 0900, Until Discontinued, Previous Med: clopidogrel bisulfate (CLOPIDOGREL ORAL) - Orig Sig - Take 75 mg by mouth daily. Given 01/01/2025 9:10 AM CDT 75 mg Given 12/30/2024 9:12 AM CDT 75 mg Given 12/29/2024 9:03 AM CDT 75 mg dextrose 5 % - sodium chloride 0.9 % infusion IV, at 40 mL/hr, SEE ADMIN INSTRUCTIONS, Starting on Tue12/28/24 at 0535, Until Tue01/01/25 at 1844, Routine dextrose 5 % in water 250 mL flush bag 25 mL 25 mL, IV, SEE ADMIN INSTRUCTIONS, Starting on Tue12/28/24 at 0529, Until Tue01/01/25 at 1844, Routine dextrose 5 % in water 250 mL flush bag 25 mL 25 mL, IV, SEE ADMIN INSTRUCTIONS, Starting on Tue01/01/25 at 1413, Until Tue01/01/25 at 1844, Routine, Post-Procedure (Invasive Cardiology) dextrose 50% (D50) syringe 12.5 Gram 12.5 Gram, IV, SEE ADMIN INSTRUCTIONS, Starting on Tue12/28/24 at 0535, Until Tue01/01/25 at 184, Routine dextrose 50% (D50) syringe 25 Gram 25 Gram, IV, SEE ADMIN INSTRUCTIONS, Starting on Tue12/28/24 at 0535, Until Tue01/01/25 at 1844, Routine gabapentin (NEURONTIN) capsule 200 mg 200 mg, Oral, THREE TIMES DAILY, First dose on Tue12/28/24 at 0900, Until Discontinued, Routine, Previous Med: gabapentin (NEURONTIN) 300 mg capsule - Orig Sig - Take 1 Capsule (300 mg) by mouth 3 times daily. Given 01/01/2025 2:19 PM CDT 200 mg Given 01/01/2025 9:10 AM CDT 200 mg Given 12/31/2024 6:16 PM CDT 200 mg glucagon HCL 1 mg/mL injection 1 mg 1 mg, IM, SEE ADMIN INSTRUCTIONS, Starting on Tue12/28/24 at 0535, Until Tue01/01/25 at 184, Routine heparin in 0.45% NaCl 25,000 unit/250 mL infusion 17 Units/kg/hr 99.9 kg (16.983 mL/hr, rounded to 17 mL/hr), IV, TITRATE, Starting on Tue12/28/24 at 0100, Until Tue01/01/25 at 184, Indication: ACS/STEMI, Dosing by: PER PROTOCOL: Delegate to facility protocol per indication, Re-bolus within Protocol? No, titrate infusion ONLY New Bag 12/31/2024 10:27 AM CDT 17 Units/kg/hr 17 mL/hr New Bag 12/30/2024 5:32 PM CDT 17 Units/kg/hr 17 mL/hr Bag Switched 12/30/2024 2:43 AM CDT 17 Units/kg/hr 17 mL/h r hydrALAZINE (APRESOLINE) tablet 100 mg 100 mg, Oral, THREE TIMES DAILY, First dose on Tue12/28/24 at 0900, Until Discontinued, Routine, Previous Med: hydrALAZINE (APRESOLINE) 50 mg tablet - Orig Sig - Take 1 Tablet (50 mg) by mouth 3 times daily. 2 tablets 3 times a day. Patient taking differently: Take 100 mg by mouth 3 times daily. 2 tablets 3 times a day. Given 01/01/2025 2:19 PM CDT 100 mg Given 01/01/2025 9:10 AM CDT 100 mg Given 12/31/2024 6:00 PM CDT 100 mg insulin glargine (LANTUS) injection 15 Units 15 Units (0.15 Units/kg 100 kg), subCUT, DAILY AT BEDTIME, First dose on Tue12/28/24 at 2100, Until Discontinued, Routine insulin lispro (HumaLOG,ADMELOG) injection 0-12 Units 0-12 Units, subCUT, THREE TIMES DAILY WITH MEALS, First dose on Tue12/28/24 at 0800, Until Discontinued, Routine Given 12/30/2024 11:38 AM CDT 2 Units Arm, Right Upper Given 12/29/2024 11:52 AM CDT 8 Units A rm, Right Upper insulin lispro (HumaLOG,ADMELOG) injection 0-6 Units 0-6 Units, subCUT, DAILY AT BEDTIME, First dose on Tue12/28/24 at 2100, Until Discontinued, Routine isosorbide mononitrate (IMDUR) SR 24 hour tablet 30 mg 30 mg, Oral, DAILY, First dose on Tue01/01/25 at 0900, Until Discontinued, Routine Given 01/01/2025 9:10 AM CDT 30 mg metoprolol tartrate (LOPRESSOR) tablet 50 mg 50 mg, Oral, TWO TIMES DAILY, First dose on Tue12/28/24 at 0900, Until Discontinued, Routine, Previous Med: metoprolol tartrate (LOPRESSOR) 50 mg tablet - Orig Sig - Take 50 mg by mouth 2 times daily. Given 01/01/2025 9:10 AM CDT 50 mg Given 12/31/2024 8:25 PM CDT 50 mg Given 12/31/2024 3:55 PM CDT 50 mg morphine 4 mg/mL injection 4 mg 4 mg, IV, ONE TIME ONLY, 1 dose, On Tue12/31/24 at 2045, Routine Given 12/31/2024 9:10 PM CDT 4 mg naloxone (NARCAN) 0.4 mg/mL injection 0.1-0.4 mg 0.1-0.4 mg, IV, SEE ADMIN INSTRUCTIONS, Starting on Tue12/28/24 at 0529, Until Tue01/01/25 at 1844, Routine nitroglycerin (NITRO-BID) 2 % topical ointment 1 Inch 1 Inch, Topical, ONE TIME ONLY, 1 dose, On Tue12/28/24 at 0115, Routine Applied 12/28/2024 1:17 AM CDT 1 Inch Chest , Left nitroglycerin (NITRO-BID) 2 % topical ointment 1 Inch 1 Inch, Topical, EVERY 6 HOURS, First dose on Tue12/28/24 at 1230, Until Discontinued, Routine, If the dose is 1 or 2 inches, the foil packet may be dispensed. If the dose is for 0.5 inch, 1.5 inch, etc., change the product to the 30 gram tube. Applied 12/31/2024 5:10 AM CDT 1 Inch Chest, Left Applied 12/30/2024 11:58 PM CDT 1 Inch C hest, Right Applied 12/30/2024 5:29 PM CDT 1 Inch Ch est, Right nitroglycerin (NITROSTAT) tablet 0.4 mg 0.4 mg, Sublingual, EVERY 5 MINUTES PRN, 3 doses, Starting on Tue12/28/24 at 0529, Until Tue01/01/25 at 1844, Chest Pain, Not to exceed 3 doses, notify physician if chest pain not relieved, hold if systolic BP less than or equal to 90 mmHg, Routine Given 12/30/2024 4:32 PM CDT 0.4 mg Given 12/30/2024 4:24 PM CDT 0.4 mg sennosides-docusate sodium (SENNA-S) 8.6-50 mg per tablet 1 Tablet 1 Tablet, Oral, TWO TIMES DAILY PRN, Starting on Tue12/28/24 at 0529, Until Tue01/01/25 at 1844, Constipation, Routine sodium chloride 0.9 % flush bag 25 mL 25 mL, IV, SEE ADMIN INSTRUCTIONS, Starting on Tue12/28/24 at 0529, Until Tue01/01/25 at 1844, Routine sodium chloride 0.9 % flush bag 25 mL 25 mL, IV, SEE ADMIN INSTRUCTIONS, Starting on Tue01/01/25 at 1413, Until Tue01/01/25 at 184, Routine, Post-Procedure (Invasive Cardiology) sodium chloride flush injection 10 mL 10 mL, IV, EVERY 12 HOURS (BlD), First dose on Tue12/28/24 at 0900, Until Discontinued, Routine Given 01/01/2025 9:13 AM CDT 10 mL Given 12/31/2024 8:26 PM CDT 10 mL Given 12/31/2024 3:57 PM CDT 10 mL sodium chloride flush injection 10 mL 10 mL, IV, SEE ADMIN INSTRUCTIONS, Starting on Tue12/28/24 at 0529, Until Tue01/01/25 at 184, Routine sodium chloride flush injection 10 mL 10 mL, IV, EVERY 12 HOURS (BlD), First dose on Tue01/01/25 at 1415, Until Discontinued, Routine, Post-Procedure (Invasive Cardiology) sodium chloride flush injection 10 mL 10 mL, IV, SEE ADMIN INSTRUCTIONS, Starting on Tue01/01/25 at 1413, Until Tue01/01/25 at 184, Routine, Post-Procedure (Invasive Cardiology) valsartan (DIOVAN) tablet 160 mg 160 mg, Oral, DAILY EARLY, First dose on Tue12/28/24 at 0600, Until Discontinued, Routine, Previous Med: valsartan (DIOVAN) 160 mg tablet - Orig Sig - Take 160 mg by mouth daily in the morning. Given 01/01/2025 5:44 AM CDT 160 mg Given 12/31/2024 5:11 AM CDT 160 mg Given 12/30/2024 5:38 AM CDT 160 mg documented in this encounter Active and Recently Administered Medications Times are shown in CDT. Scheduled Medication Order 12/30/2024 12/31/2024 01/01/2025 amLODIPine (NORVASC) tablet 10 mg 10 mg, Oral, DAILY, First dose on Tue12/28/24 at 0900, Until Discontinued, Routine, Previous Med: amLODIPine (NORVASC) 5 mg tablet - Orig Sig - Take 10 mg by mouth daily. 911 (Given - Provider: Cristal Phillips RN) 1556 (Given - Provider: Miranda Vaca RN) 0910 (Given - Provider: Vangie Malhotra RN) aspirin (ECOTRIN EC) tablet 81 mg 81 mg, Oral, DAILY, First dose on Tue12/29/24 at 0900, Until Discontinued, Routine, Previous Med: aspirin (ECOTRIN EC) 81 mg Tablet, Delayed Release (E.C.) - Orig Sig - Take 81 mg by mouth daily. 09 (Given - Provider: Cristal Phillips RN) 151 (Canceled Entry - Provider: Vasquez Borrego RN - Comment: given in lab coordinator) 09 (Given - Provider: Vangie Malhotra RN) atorvastatin (LIPITOR) tablet 80 mg 80 mg, Oral, DAILY AT BEDTIME, First dose on Tue12/28/24 at 2100, Until Discontinued, Routine 2045 (Given - Provider: Jacqueline Edwards LPN) 2024 (Given - Provider: Grace Farnsworth RN) clopidogreL (PLAVIX) tablet 75 mg 75 mg, Oral, DAILY, First dose on Tue12/28/24 at 0900, Until Discontinued, Previous Med: clopidogrel bisulfate (CLOPIDOGREL ORAL) - Orig Sig - Take 75 mg by mouth daily. 911 (Given - Provider: Cristal Phillips RN) 151 (Canceled Entry - Provider: Vasquez Borrego RN - Comment: given in lab coordinator) 909 (Given - Provider: Vangie Malhotra RN) dextrose 5 % - sodium chloride 0.9 % infusion IV, at 40 mL/hr, SEE ADMIN INSTRUCTIONS, Starting on Tue12/28/24 at 0535, Until Tue01/01/25 at 1844, Routine dextrose 5 % in water 250 mL flush bag 25 mL 25 mL, IV, SEE ADMIN INSTRUCTIONS, Starting on Tue12/28/24 at 0529, Until Tue01/01/25 at 1844, Routine dextrose 5 % in water 250 mL flush bag 25 mL 25 mL, IV, SEE ADMIN INSTRUCTIONS, Starting on Tue01/01/25 at 1413, Until Tue01/01/25 at 1844, Routine, Post-Procedure (Invasive Cardiology) dextrose 50% (D50) syringe 12.5 Gram 12.5 Gram, IV, SEE ADMIN INSTRUCTIONS, Starting on Tue12/28/24 at 0535, Until Tue01/01/25 at 1844, Routine dextrose 50% (D50) syringe 25 Gram 25 Gram, IV, SEE ADMIN INSTRUCTIONS, Starting on Tue12/28/24 at 0535, Until Tue01/01/25 at 1844, Routine gabapentin (NEURONTIN) capsule 200 mg 200 mg, Oral, THREE TIMES DAILY, First dose on Tue12/28/24 at 0900, Until Discontinued, Routine, Previous Med: gabapentin (NEURONTIN) 300 mg capsule - Orig Sig - Take 1 Capsule (300 mg) by mouth 3 times daily. 0912 (Given - Provider: Cristal Phillips RN)1204 (Given - Provider: Cristal Phillips RN)1729 (Given - Provider: Cristal Phillips RN) 0900 (Not Given - Provider: Miranda Vaca RN - Reason: Patient off unit - Comment: dialysis)1555 (Given - Provider: Miranda Vaca RN)1816 (Given - Provider: Miranda Vaca RN) 0910 (Given - Provider: Vangie Malhotra, TRACI)1419 (Given - Provider: Vangie Malhotra, TRACI) glucagon HCL 1 mg/mL injection 1 mg 1 mg, IM, SEE ADMIN INSTRUCTIONS, Starting on Tue12/28/24 at 0535, Until Tue01/01/25 at 1844, Routine hydrALAZINE (APRESOLINE) tablet 100 mg 100 mg, Oral, THREE TIMES DAILY, First dose on Tue12/28/24 at 0900, Until Discontinued, Routine, Previous Med: hydrALAZINE (APRESOLINE) 50 mg tablet - Orig Sig - Take 1 Tablet (50 mg) by mouth 3 times daily. 2 tablets 3 times a day. Patient taking differently: Take 100 mg by mouth 3 times daily. 2 tablets 3 times a day. 0912 (Given - Provider: Cristal Phillips RN)1204 (Given - Provider: Cristal Phillips, TRACI)1729 (Given - Provider: Cristal Phillips, TRACI) 0900 (Not Given - Provider: Miranda Vaca RN - Reason: Patient off unit - Comment: dialysis)1556 (Given - Provider: Miranda Vaca RN)1800 (Given - Provider: Miranda Vaca RN) 0910 (Given - Provider: Vangie Malhotra RN)1419 (Given - Provider: Vangie Malhotra RN) insulin glargine (LANTUS) injection 15 Units 15 Units (0.15 Units/kg 100 kg), subCUT, DAILY AT BEDTIME, First dose on Tue12/28/24 at 2100, Until Discontinued, Routine 2100 (Not Given - Provider: Jacqueline Edwards LPN - Reason: Other - See Comment - Comment: Pt states he usually takes this in the AM) 2100 (Refused - Provider: Grace Farnsworth RN) insulin lispro (HumaLOG,ADMELOG) injection 0-12 Units 0-12 Units, subCUT, THREE TIMES DAILY WITH MEALS, First dose on Tue12/28/24 at 0800, Until Discontinued, Routine 0733 (Not Given - Provider: Cristal Phillips RN - Reason: Lab results / vitals - Comment: BG 125)1138 (Given - Provider: Cristal Phillips RN - Comment: BG 181)1653 (Not Given - Provider: Cristal Phillips RN - Reason: Lab results / vitals - Comment: BG 174) 0800 (Not Given - Provider: Miranda Vaca RN - Reason: Lab results / vitals - Comment: 155)1200 (Not Given - Provider: Miranda Vaca RN - Reason: Lab results / vitals - Comment: 112)1700 (Not Given - Provider: Miranda Vaca RN - Reason: Lab results / vitals - Comment: 112) 0800 (Not Given - Provider: Vangie Malhotra RN - Reason: Lab results / vitals)1200 (Not Given - Provider: Vangie Malhotra RN - Reason: Lab results / vitals) insulin lispro (HumaLOG,ADMELOG) injection 0-6 Units 0-6 Units, subCUT, DAILY AT BEDTIME, First dose on Tue12/28/24 at 2100, Until Discontinued, Routine 2100 (Not Given - Provider: Jacqueline Edwards LPN - Reason: Lab results / vitals - Comment: Bg 171) 2100 (Not Given - Provider: Grace Farnsworth RN - Reason: Lab results / vitals - Comment: glucose 196) isosorbide mononitrate (IMDUR) SR 24 hour tablet 30 mg 30 mg, Oral, DAILY, First dose on Tue01/01/25 at 0900, Until Discontinued, Routine 0910 (Given - Provider: Vangie Malhotra, TRACI) metoprolol tartrate (LOPRESSOR) tablet 50 mg 50 mg, Oral, TWO TIMES DAILY, First dose on Tue12/28/24 at 0900, Until Discontinued, Routine, Previous Med: metoprolol tartrate (LOPRESSOR) 50 mg tablet - Orig Sig - Take 50 mg by mouth 2 times daily. 0912 (Given - Provider: Cristal Phillips RN)2045 (Given - Provider: Jacqueline Edwards LPN) 155 (Given - Provider: Miranda Vaca RN)2024 (Given - Provider: Grace Farnsworth RN) 0910 (Given - Provider: Vangie Malhotra RN) morphine 4 mg/mL injection 4 mg (COMPLETED) 4 mg, IV, ONE TIME ONLY, 1 dose, On Tue12/31/24 at 2045, Routine 2110 (Given - Provider: Grace Farnsworth RN) naloxone (NARCAN) 0.4 mg/mL injection 0.1-0.4 mg 0.1-0.4 mg, IV, SEE ADMIN INSTRUCTIONS, Starting on Tue12/28/24 at 0529, Until Tue01/01/25 at 1844, Routine nitroglycerin (NITRO-BID) 2 % topical ointment 1 Inch 1 Inch, Topical, EVERY 6 HOURS, First dose on Tue12/28/24 at 1230, Until Discontinued, Routine, If the dose is 1 or 2 inches, the foil packet may be dispensed. If the dose is for 0.5 inch, 1.5 inch, etc., change the product to the 30 gram tube. 0000 (Applied - Provider: Jacqueline Edwards LPN)0536 (Applied - Provider: Jacqueline Edwards LPN)1136 (Removed - Provider: Cristal Phillips RN)1138 (Applied - Provider: Cristal Phillips RN)1729 (Applied - Provider: Cristal Phillips RN)2329 (Removed - Provider: Jacqueline Edwards LPN)2358 (Applied - Provider: Jacqueline Edwards LPN) 0510 (Applied - Provider: Jacqueline Edwards LPN)1110 (Removed - Provider: Miranda Vaca RN)1200 (Not Given - Provider: Miranda Vaca RN - Reason: Patient off unit)1730 (Refused - Provider: Miranda Vaca RN) 0000 (Refused - Provider: Grace Farnsworth RN)0600 (Refused - Provider: Grace Farnsworth RN)1200 (Refused - Provider: Vangie Malhotra, RN) sodium chloride 0.9 % flush bag 25 mL 25 mL, IV, SEE ADMIN INSTRUCTIONS, Starting on Tue12/28/24 at 0529, Until Tue01/01/25 at 1844, Routine sodium chloride 0.9 % flush bag 25 mL 25 mL, IV, SEE ADMIN INSTRUCTIONS, Starting on Tue01/01/25 at 1413, Until Tue01/01/25 at 1844, Routine, Post-Procedure (Invasive Cardiology) sodium chloride flush injection 10 mL 10 mL, IV, EVERY 12 HOURS (BlD), First dose on Tue12/28/24 at 0900, Until Discontinued, Routine 0900 (Canceled Entry - Provider: Cristal Phillips RN)2045 (Given - Provider: Jacqueline Edwards LPN) 1557 (Given - Provider: Miranda Vaca RN)2026 (Given - Provider: Grace Farnsworth RN) 0913 (Given - Provider: Vagnie Malhotra, TRACI) sodium chloride flush injection 10 mL 10 mL, IV, SEE ADMIN INSTRUCTIONS, Starting on Tue12/28/24 at 0529, Until Tue01/01/25 at 1844, Routine sodium chloride flush injection 10 mL 10 mL, IV, EVERY 12 HOURS (BlD), First dose on Tue01/01/25 at 1415, Until Discontinued, Routine, Post-Procedure (Invasive Cardiology) 1415 (Canceled Entry - Provider: Vangie Malhotra RN) sodium chloride flush injection 10 mL 10 mL, IV, SEE ADMIN INSTRUCTIONS, Starting on Tue01/01/25 at 1413, Until Tue01/01/25 at 1844, Routine, Post-Procedure (Invasive Cardiology) valsartan (DIOVAN) tablet 160 mg 160 mg, Oral, DAILY EARLY, First dose on Tue12/28/24 at 0600, Until Discontinued, Routine, Previous Med: valsartan (DIOVAN) 160 mg tablet - Orig Sig - Take 160 mg by mouth daily in the morning. 0538 (Given - Provider: Jacqueline Edwards LPN) 0511 (Given - Provider: Jacqueline Edwards LPN) 0544 (Given - Provider: Grace Farnsworth, TRACI) Continuous Medication Order 12/30/2024 12/31/2024 01/01/2025 heparin in 0.45% NaCl 25,000 unit/250 mL infusion 17 Units/kg/hr 99.9 kg (16.983 mL/hr, rounded to 17 mL/hr), IV, TITRATE, Starting on Tue12/28/24 at 0100, Until Tue01/01/25 at 1844, Indication: ACS/STEMI, Dosing by: PER PROTOCOL: Delegate to facility protocol per indication, Re-bolus within Protocol? No, titrate infusion ONLY 0243 (Bag Switched - Provider: Jacqueline Edwards LPN)1732 (New Bag - Provider: Cristal Phillips, RN) 1027 (New Bag - Provider: Mahamed Triana RN) 1844 (Due: Order Ending - Provider: PROVIDER, DISCHARGE PATIENT - Comment: [Order ends at this time. Document the following action when infusion is complete: Stopped]) PRN Medication Order 12/30/2024 12/31/2024 01/01/2025 acetaminophen (TYLENOL) tablet 650 mg 650 mg, Oral, EVERY 6 HOURS PRN, Starting on Tue12/28/24 at 0529, Until Tue01/01/25 at 1844, Other (See Comment), See admin instructions, Routine 0015 (Given - Provider: Jacqueline Edwards LPN) 1910 (Given - Provider: Miranda Vaca, TRACI) aspirin (SHILA) tablet (CANCELED) ONE TIME PRN, Starting on Tue12/31/24 at 1506, Until Tue12/31/24 at 1515, Routine, Intra-Procedure (Invasive Cardiology) 1506 (Given - Provider: John Mcgraw RN) atropine injection 0.5 mg 0.5 mg, IV, EVERY 5 MINUTES PRN, 3 doses, Starting on Tue01/01/25 at 1413, Until Tue01/01/25 at 1844, Heart Rate, Bradycardia, Routine, Post-Procedure (Invasive Cardiology) clopidogreL (PLAVIX) tablet (CANCELED) ONE TIME PRN, Starting on Tue12/31/24 at 1506, Until Tue12/31/24 at 1515, Routine, Intra-Procedure (Invasive Cardiology) 1506 (Given - Provider: John Mcgraw RN) fentaNYL PF (SUBLIMAZE) 50 mcg/mL injection (CANCELED) ONE TIME PRN, Starting on Tue12/31/24 at 1436, Until Tue12/31/24 at 1515, Routine, Intra-Procedure (Invasive Cardiology) 1436 (Given - Provider: John Mcgraw RN)1441 (Given - Provider: John Mcgraw RN) fentaNYL PF (SUBLIMAZE) 50 mcg/mL injection (CANCELED) ONE TIME PRN, Starting on Tue01/01/25 at 1333, Until Tue01/01/25 at 1405, Routine, Intra-Procedure (Invasive Cardiology) 1333 (Given - Provider: Noel Squires RN) heparin injection (CANCELED) ONE TIME PRN, Starting on Tue12/31/24 at 1443, Until Tue12/31/24 at 1515, Routine, Intra-Procedure (Invasive Cardiology) 1443 (Given - Provider: John Mcgraw RN)1451 (Given - Provider: John Mcgraw RN) iopamidoL (ISOVUE-300) 61% injection (drawn from multi-use bulk pack) (CANCELED) ONE TIME PRN, Starting on Tue12/31/24 at 1507, Until Tue12/31/24 at 1515, Routine, Intra-Procedure (Invasive Cardiology) 1507 (Given - Provider: Nikki Dawson DO) iopamidoL (ISOVUE-300) 61% injection (drawn from multi-use bulk pack) (CANCELED) ONE TIME PRN, Starting on Tue01/01/25 at 1355, Until Tue01/01/25 at 1405, Routine, Intra-Procedure (Invasive Cardiology) 1355 (Given - Provider: Davion Mcconnell MD) lidocaine 1 % (XYLOCAINE) injection (CANCELED) ONE TIME PRN, Starting on Tue12/31/24 at 1436, Until Tue12/31/24 at 1515, Routine, Intra-Procedure (Invasive Cardiology) 1436 (Given - Provider: Nikki Dawson DO) lidocaine 1 % (XYLOCAINE) injection (CANCELED) ONE TIME PRN, Starting on Tue01/01/25 at 1336, Until Tue01/01/25 at 1405, Routine, Intra-Procedure (Invasive Cardiology) 1336 (Given - Provider: Davion Mcconnell MD) midazolam (VERSED) injection (CANCELED) ONE TIME PRN, Starting on Tue12/31/24 at 1436, Until Tue12/31/24 at 1515, Routine, Intra-Procedure (Invasive Cardiology) 1436 (Given - Provider: John Mcgraw RN) midazolam (VERSED) injection (CANCELED) ONE TIME PRN, Starting on Tue01/01/25 at 1333, Until Tue01/01/25 at 1405, Routine, Intra-Procedure (Invasive Cardiology) 1333 (Given - Provider: Noel Squires RN) nitroglycerin (NITROSTAT) tablet 0.4 mg 0.4 mg, Sublingual, EVERY 5 MINUTES PRN, 3 doses, Starting on Tue12/28/24 at 0529, Until Tue01/01/25 at 1844, Chest Pain, Not to exceed 3 doses, notify physician if chest pain not relieved, hold if systolic BP less than or equal to 90 mmHg, Routine 1624 (Given - Provider: Cristal Phillips RN - Comment: CP 10/04)1632 (Given - Provider: Cristal Phillips RN - Comment: SEAN 01/03) sennosides-docusate sodium (SENNA-S) 8.6-50 mg per tablet 1 Tablet 1 Tablet, Oral, TWO TIMES DAILY PRN, Starting on Tue12/28/24 at 0529, Until Tue01/01/25 at 1844, Constipation, Routine verapamiL (ISOPTIN) 2.5 mg, nitroglycerin in 5 % dextrose (TRIDIL) 200 mcg, sodium chloride 0.9% 3 mL SOLUTION (CANCELED) ONE TIME PRN, Starting on Tue12/31/24 at 1442, Until Tue12/31/24 at 1515, Routine, Intra-Procedure (Invasive Cardiology) 1442 (Given - Provider: John Mcgraw RN) documented in this encounter
--- OUTSIDE RECORDS SUMMARY | 2024-12-31 14:15 | XMS_ITS | Encounter Summary ---
Author Organization [facility] Address [address] [place] [address] Care Team Providers Care Skiver Operator Name Role Phone Unavailable Primary Care Provider Unavailabl e Reason for Visit * Reason Comments Chest Pain * Auth/Cert (Routine) Specialty Diagnoses / Procedures Referred By Contac t Referred To Contact Emergency Medicine Diagnoses NSTEMI [facility] Emergency Department [address] [place] [address] Phone: tel: fax: Referral ID Status Reason Start Date Expiration Date Visits Re quested Visits Authorized [id number] 1 1 Encounter Details Date Type Department Care Team (Late st Contact Info) Description 12/31/2024 2:15 PM CDT - 12/31/2024 3:10 PM CDT Surgery [facility] Cardiac E Commerce Solution Architect [address] [place] [address] Nikki Dawson, [address] [facility] [address] [place] [address] Left heart cath Surgery Details Date/Time Status Location OR Service Patient Class Case Class Case Type Trauma Case? 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 Cardiopulmonary Rehab Facility: [address] [place] [address] MEDICAL DISCHARGE RECORD DIET: regular and Diabetic [...] call or the Health Information Team at [phone] or [phone]. FOLLOW-UP APPOINTMENT: Follow up with cardiology- they should call you.follow up with dialysis * Attachments The following attachments cannot be sent through Care Everywhere. * Cardiac Rehabilitation ([place]) * Low Sodium Diet ([place]) * Low Sodium: Reading a Food Label ([place]) * Heart Failure [facility] ([place]) * PCI (Percutaneous Coronary Intervention): General Info ([place]) * Hemodialysis Access: Post op ([place]) documented in this encounter Medications at Time [...] included. Your life is our life's work [facility] Hospitalist/Hospital Medicine Progress Note LOS: 4 days Room/Bed: 4122/01 Patient name: Ida Morelos Date of : 1960 HOSPITAL COURSE SUMMARY: Ida Morelos, a 64 y.o. male who is admitted for further management of with PHM of T2DM, HTN, HLD, ESRD on HD, CAD status post PCI, CVA without residual deficits, diabetic polyneuropathy, combined systolic and diastolic heart failure, lumbar radiculopathy, GERD who was transferred from [facility] ER to [facility] ED on 12/2024 for further management of [...] was similar to his previous episode of OK for which he had 2 stents placed in [facility]. Denies cough, sputum production, fever, chills. He [...] stable, will continue with SSI 12/31-> awaiting [facility] today 01/01-> patient will undergo fistulogram today [...] Weight: 100.3 kg (221 lb 2 oz) (01/01/25 0526) EXAM: General: alert, in no distress Neurologic: Grossly normal HEENT: atraumatic, Normocephalic, without obvious abnormality Lungs: clear to auscultation bilaterally, normal respiratory effort Heart: normal rate and regular rhythm, S1 and S2 normal Abdomen: Soft, non-tender. Bowel sounds normal. No masses, no organomegaly. Extremities: extremities normal, atraumatic, no cyanosis or edema Skin: negative LABORATORY: Recent Labs 12/30/24 0522 12/30/24 2336 12/31/2444101/01/25 0138 WBC 5.0 4.5* 4.3* 4.1* HGB 10.2* 10.0* 9.8* 9.2* HCT 31.0* 30.6* 29.7* 27.2* PLT 203 209 200 182 Recent Labs 12/30/24 0522 12/31/24 0442 01/01/25 0138 NA 135* 134* 136 K 4.5 4.6 [...] 4 mg, IV, ONE time only, Zeke Cid MD, 4 mg at 12/31/24 2110 [DISCONTINUED] [...] Alfredo Harris MD, 81 mg at 01/01/25 0910 clopidogreL (PLAVIX) tablet 75 mg, 75 mg, Oral, daily, Luis Alfredo Harris MD, 75 mg at 01/01/25 0910 amLODIPine (NORVASC) tablet 10 mg, 10 mg, Oral, daily, Luis Alfredo Harris MD, 10 mg at 01/01/25 0910 hydrALAZINE (APRESOLINE) tablet 100 mg, 100 mg, Oral, TID, Luis Alfredo Harris MD, 100 mg at 01/01/25 0910 metoprolol tartrate (LOPRESSOR) tablet 50 mg, 50 mg, Oral, BID, Luis Alfredo Harris MD, 50 mg at 01/01/25 09 valsartan (DIOVAN) tablet 160 mg, 160 mg, Oral, daily EARLY, Luis Alfredo Harris MD, 160 mg at 01/01/25 0544 gabapentin (NEURONTIN) capsule 200 mg, 200 mg, Oral, TID, Luis Alfredo Harris MD, 200 mg at 910 nitroglycerin (NITRO-BID) 2 % topical ointment 1 Inch, 1 Inch, Topical, every 6 hours, Gisela Harris FNP, 1 Inch at 12/31/24 0510 Primary discharge diagnosis: NSTEMI (non-ST elevated myocardial infarction) ([facility]) Other active medical issues also addressed during this admission: Active Hospital Problems Diagnosis Acute chest pain Elevated troponin Chronic anemia ESRD (end stage renal disease) on dialysis ([facility]) Ischemic dilated cardiomyopathy ([facility]) Chronic combined systolic and diastolic CHF (congestive heart failure) ([facility]) ESRD on hemodialysis ([facility]) History of coronary artery stent placement History of stroke without residual deficits NSTEMI (non-ST elevated myocardial infarction) ([facility]) Type 2 diabetes mellitus with hyperglycemia ([facility]) Essential hypertension Diabetic polyneuropathy associated with type 2 diabetes mellitus ([facility]) GERD (gastroesophageal reflux disease) Mixed hyperlipidemia Resolved [...] catheterization on Tuesday -n.p.o. from midnight -awaiting [facility] today Diabetic polyneuropathy Lumbar radiculopathy -Continue CIRCUIT RECORDER gabapentin HTN -Continue hydralazine 50 mg 3 times daily, valsartan 160 mg daily, amlodipine 5 mg daily, metoprolol tartrate 50 mg twice daily HLD History of CVA -Continue aspirin 81 mg daily, Plavix 75 mg daily, atorvastatin 80 mg daily at bedtime. T2DM -Has history of type 2 diabetes mellitus. CIRCUIT RECORDER on Lantus 20 units along with sliding [...] inpatient. [facility] for [facility]on[facility] Chronic anemia - [...] Primary family contact: None on PHI, per epic friend Lopez Ruiz [facility] complexity: [] Mild [x] Moderate [] High Tasnuva Sergei Verdugo MD 01/01/2025, 11:47 AM * Nabil Blue MD - 01/01/2025 7:30 AM CDT DAILY PROGRESS NOTE CARDIOLOGY 01/01/2025 Ida Morelos is a 64 y.o. male with a history of ESRD on dialysis, diabetes type 2, dyslipidemia, CAD with PCI in [place] in 07/16/2024 reported he had a OK and got 2 stents, ischemic cardiomyopathy LVEF [...] only Zeke Cid MD 4 mg at 12/31/242109 heparin in 0.45% NaCl 25,000 unit/250 mL [...] Richard Esparza MD 81 mg at 12/28/24 0117 sodium chloride flush injection 10 mL 10 [...] Luis Alfredo Harris MD 50 mg at 12/31/242024 valsartan (DIOVAN) tablet 160 mg 160 mg daily EARLY Luis Alfredo Harris MD 160 mg at 01/01/25 0544 gabapentin (NEURONTIN) capsule 200 mg 200 mg TID Luis Alfredo Harris MD 200 mg at 12/31/24 1816 nitroglycerin (NITRO-BID) 2 % topical ointment 1 Inch 1 Inch every 6 hours Gisela Harris, AIR HAMMER STRIPPER 1 Inch at 12/31/24 05 [COMPLETED] morphine 4 mg/mL injection 4 mg [...] Lab Results Component Value Date/Time BASETROP 163 (HH) 12/30/2024 04:56 PM 2HRTROP 160 () 12/30/2024 [...] Code Type 2 diabetes mellitus with hyperglycemia ([facility]) E11.65 Acute on chronic congestive heart failure ([facility]) I50.9 Accelerated hypertension I10 Essential hypertension I10 GERD (gastroesophageal reflux disease) K21.9 Mixed hyperlipidemia E78.2 TIA (transient ischemic attack) G45.9 NSTEMI (non-ST elevated myocardial infarction) ([facility]) I21.4 Hyperglycemia due to diabetes mellitus ([facility]) E11.65 Elevated d-dimer R79.89 Large pleural effusion J90 Diabetic polyneuropathy associated with type 2 diabetes mellitus ([facility]) E11.42 ESRD on hemodialysis ([facility]) N18.6, Z99.2 Lumbar radiculopathy, acute M54.16 Syncope R55 Atherosclerosis of [place] coronary artery of [place] heart without angina pectoris I25.10 History of coronary artery stent placement Z95.5 Hypertensive urgency I16.0 History of stroke without residual deficits Z86.73 Carpal tunnel syndrome, right G56.01 Chronic combined systolic and diastolic CHF (congestive heart failure) ([facility]) I50.42 Spinal stenosis of lumbar region with neurogenic claudication M48.062 Weakness of right lower extremity R29.898 Weakness of right upper extremity R29.898 Stable angina I20.89 Chronic anemia D64.9 ESRD (end stage renal disease) on dialysis ([facility]) N18.6, Z99.2 Ischemic dilated cardiomyopathy ([facility]) I25.5, I42.0 Acute chest pain R07.9 Elevated [...] 7:30 AM This documentation was created by [employer] frame table operator helper software (known for inherent frame table operator helper error) using [employer]. Effort has been done to assure accuracy of frame table operator helper. Any obvious errors or omissions should be clarified with the author of the document. * Steven Gisela M, AIR HAMMER STRIPPER - 12/31/2024 3:35 PM CDT CARDIOLOGY PROGRESS [...] 134* K 4.3 4.5 4.6 CO2 27 24 Cardiac Tele: nsr rate 70 ; no events ASSESSMENT: Principal Problem: NSTEMI (non-ST elevated myocardial infarction) (CMS/HCC) Active Problems: Essential hypertension Mixed hyperlipidemia Overview: Identified By: Cayden Joyce Type 2 diabetes mellitus with hyperglycemia ([facility]) GERD (gastroesophageal reflux disease) Diabetic polyneuropathy associated with type 2 diabetes mellitus ([facility]) ESRD on hemodialysis ([facility]) History of coronary artery stent placement History of stroke without residual deficits Chronic combined systolic and diastolic CHF (congestive heart failure) ([facility]) Chronic anemia ESRD (end stage renal disease) on dialysis ([facility]) Ischemic dilated cardiomyopathy ([facility]) Acute chest pain Elevated troponin PLAN: S/p JUAN LAD this am Continue dapt/statin/bb; may dc heparin Dialysis today post pci [facility] Cosigned by Nabil Blue MD at 12/31/2024 3:38 PM CDT * Phil Verdugo MD - 12/31/2024 8:27 AM CDT Images from the original note were not included. Your life is our life's work [facility] Hospitalist/Hospital Medicine Progress Note LOS: 3 days Room/Bed: [facility]2/01 Patient name: Ida Morelos Date of : 1960 HOSPITAL COURSE SUMMARY: Ida Morelos, a 64 y.o. male who is admitted for further management of with PHM of T2DM, HTN, HLD, ESRD on HD, CAD status post PCI, CVA without residual deficits, diabetic polyneuropathy, combined systolic and diastolic heart failure, lumbar radiculopathy, GERD who was transferred from [facility] ER to [facility] ED on 12/2024 for further management of [...] was similar to his previous episode of OK for which he had 2 stents placed in [facility]. Denies cough, sputum production, fever, chills. He [...] stable, will continue with SSI 12/31-> awaiting [facility] today Consultants: IP CONSULT TO CARDIAC REHAB [...] or edema Skin: negative LABORATORY: Recent Labs 12/29/247 12/30/24 0522 12/30/24 2336 12/31/24 0442 WBC [...] MD, Last Rate: 17 mL/hr at 12/30/24 1732, 17 Units/kg/hr at 12/30/24 173 sodium chloride flush injection 10 mL, 10 [...] Luis Alfredo Harris MD, 80 mg at 12/30/242045 dextrose 5 % - sodium chloride 0.9 [...] Luis Alfredo Harris MD, 81 mg at 12/30/24911 clopidogreL (PLAVIX) tablet 75 mg, 75 mg, Oral, daily, Luis Alfredo Harris MD, 75 mg at 12/30/24911 amLODIPine (NORVASC) tablet 10 mg, 10 mg, Oral, daily, Luis Alfredo Harris MD, 10 mg at 12/30/24911 hydrALAZINE (APRESOLINE) tablet 100 mg, 100 mg, Oral, TID, Luis Alfredo Harris MD, 100 mg at 12/30/24 172 metoprolol tartrate (LOPRESSOR) tablet 50 mg, 50 mg, Oral, BID, Luis Alfredo Harris MD, 50 mg at 12/30/242045 valsartan (DIOVAN) tablet 160 mg, 160 mg, Oral, daily EARLY, Luis Alfredo Harris MD, 160 mg at 12/31/24510 gabapentin (NEURONTIN) capsule 200 mg, 200 mg, Oral, TID, Luis Alfredo Harris MD, 200 mg at 729 nitroglycerin (NITRO-BID) 2 % topical ointment 1 Inch, 1 Inch, Topical, every 6 hours, Gisela Harris FNP, 1 Inch at 12/31/24 0510 Primary discharge diagnosis: NSTEMI (non-ST elevated myocardial infarction) ([facility]) Other active medical issues also addressed during this admission: Active Hospital Problems Diagnosis Acute chest pain Elevated troponin Chronic anemia ESRD (end stage renal disease) on dialysis ([facility]) Ischemic dilated cardiomyopathy ([facility]) Chronic combined systolic and diastolic CHF (congestive heart failure) ([facility]) ESRD on hemodialysis ([facility]) History of coronary artery stent placement History of stroke without residual deficits NSTEMI (non-ST elevated myocardial infarction) ([facility]) Type 2 diabetes mellitus with hyperglycemia ([facility]) Essential hypertension Diabetic polyneuropathy associated with type 2 diabetes mellitus ([facility]) GERD (gastroesophageal reflux disease) Mixed hyperlipidemia Resolved [...] catheterization on Tuesday -n.p.o. from midnight -awaiting [facility] today Diabetic polyneuropathy Lumbar radiculopathy -Continue CIRCUIT RECORDER gabapentin HTN -Continue hydralazine 50 mg 3 times daily, valsartan 160 mg daily, amlodipine 5 mg daily, metoprolol tartrate 50 mg twice daily HLD History of CVA -Continue aspirin 81 mg daily, Plavix 75 mg daily, atorvastatin 80 mg daily at bedtime. T2DM -Has history of type 2 diabetes mellitus. CIRCUIT RECORDER on Lantus 20 units along with sliding [...] inpatient. [facility] Chronic anemia - [...] Primary family contact: None on PHI, per [facility] friend Briirafael LanderosRuiz [facility] complexity: [] Mild [x] Moderate [] [...] included. Your life is our life's work [facility] Hospitalist/Hospital Medicine Progress Note LOS: 2 days Room/Bed: [facility]/ Patient name: Ida Morelos Date of : 1960 HOSPITAL COURSE SUMMARY: Ida Morelos, a 64 y.o. male who is admitted for further management of with PHM of T2DM, HTN, HLD, ESRD on HD, CAD status post PCI, CVA without residual deficits, diabetic polyneuropathy, combined systolic and diastolic heart failure, lumbar radiculopathy, GERD who was transferred from [facility] ER to [facility] ED on 12/2024 for further management of [...] was similar to his previous episode of OK for which he had 2 stents placed in [facility]. Denies cough, sputum production, fever, chills. He [...] weight: Weight: 96.6 kg (213 lb) (12/30/24 1809) EXAM: General: alert, in no distress Neurologic: [...] 12/28/24108 INR 1.1 PT 14.4 Recent Labs 12/27/24200412/27/24213512/28/24 0159 BASETROP 182* -- -- 2HRTROP -- 171* -- 6HRTROP -- -- 153* Diagnostic testing reviewed by me: Medications were reviewed by me. Current Facility-Administered Medications: heparin in 0.45% NaCl 25,000 unit/250 mL infusion, 17 Units/kg/hr, IV, titrate, Bharati Jarrell MD, Last Rate: 17 mL/hr at 12/30/24 0243, 17 Units/kg/hr at 12/30/243 sodium chloride flush injection 10 mL, 10 [...] Luis Alfredo Harris MD, 650 mg at 12/30/2414 naloxone (NARCAN) 0.4 mg/mL injection 0.1-0.4 mg, [...] Alfredo Harris MD, 50 mg at 12/30/24 09 valsartan (DIOVAN) tablet 160 mg, 160 mg, Oral, daily EARLY, Luis Alfredo Harris MD, 160 mg at 12/30/24 0538 gabapentin (NEURONTIN) capsule 200 mg, 200 mg, Oral, TID, Luis Alfredo Hraris MD, 200 mg at 204 nitroglycerin (NITRO-BID) 2 % topical ointment 1 Inch, 1 Inch, Topical, every 6 hours, Gisela Harris, AIR HAMMER STRIPPER, 1 Inch at 12/30/24 1138 Primary discharge diagnosis: NSTEMI (non-ST elevated myocardial infarction) ([facility]) Other active medical issues also addressed during this admission: Active Hospital Problems Diagnosis Acute chest pain Elevated troponin Chronic anemia ESRD (end stage renal disease) on dialysis ([facility]) Ischemic dilated cardiomyopathy ([facility]) Chronic combined systolic and diastolic CHF (congestive heart failure) ([facility]) ESRD on hemodialysis ([facility]) History of coronary artery stent placement History of stroke without residual deficits NSTEMI (non-ST elevated myocardial infarction) ([facility]) Type 2 diabetes mellitus with hyperglycemia ([facility]) Essential hypertension Diabetic polyneuropathy associated with type 2 diabetes mellitus ([facility]) GERD (gastroesophageal reflux disease) Mixed hyperlipidemia Resolved [...] from midnight Diabetic polyneuropathy Lumbar radiculopathy -Continue CIRCUIT RECORDER gabapentin HTN -Continue hydralazine 50 mg 3 times daily, valsartan 160 mg daily, amlodipine 5 mg daily, metoprolol tartrate 50 mg twice daily HLD History of CVA -Continue aspirin 81 mg daily, Plavix 75 mg daily, atorvastatin 80 mg daily at bedtime. T2DM -Has history of type 2 diabetes mellitus. CIRCUIT RECORDER on Lantus 20 units along with sliding [...] inpatient. [facility] for [facility]onnell Chronic anemia - [...] Primary family contact: None on PHI, per [facility] friend Lopez Chungton [facility] complexity: [] Mild [x] Moderate [] High Bharati Jarrell MD 12/30/2024, 1:30 PM * Kenan Mendez CRNP - 12/30/2024 10:36 AM CDT DAILY PROGRESS NOTE [facility] EP CARDIOLOGY 12/30/2024 Ida Morelos is a 64 y.o. male being follow by cardiology for chest pain with chest pressure. HPI: Mr. Morelos is a 64-year-old gentleman with a history of ESRD on dialysis, diabetes type 2, dyslipidemia, CAD with PCI in [place] in 07/16/2024 reported he had a OK and got 2 stents, ischemic cardiomyopathy LVEF [...] included. Your life is our life's work [facility] Hospitalist/Hospital Medicine Progress Note LOS: 1 day [...] lumbar radiculopathy, GERD who was transferred from [facility] ER to [facility] ED on 12/2024 for further management of [...] was similar to his previous episode of OK for which he had 2 stents placed in [facility]. Denies cough, sputum production, fever, chills. He [...] 94.5 kg (208 lb 7 oz) (12/29/24 0542) EXAM: General: alert, in no distress Neurologic: [...] Alfredo Harris MD, 650 mg at 12/28/24 1712 naloxone (NARCAN) 0.4 mg/mL injection 0.1-0.4 mg, [...] Alfredo Harris MD, 8 Units at 12/29/24 115 insulin lispro (HumaLOG,ADMELOG) injection 0-6 Units, 0-6 Units, subCUT, daily BEDTIME, Luis Alfredo Harris MD aspirin (ECOTRIN EC) tablet 81 mg, 81 mg, Oral, daily, Luis Alfredo Harris MD, 81 mg at 12/29/24902 clopidogreL (PLAVIX) tablet 75 mg, 75 mg, Oral, daily, Luis Alfredo Harris MD, 75 mg at 12/29/24902 amLODIPine (NORVASC) tablet 10 mg, 10 mg, Oral, daily, Luis Alfredo Harris MD, 10 mg at 12/29/24903 hydrALAZINE (APRESOLINE) tablet 100 mg, 100 mg, [...] discharge diagnosis: NSTEMI (non-ST elevated myocardial infarction) ([facility]) Other active medical issues also addressed during this admission: Active Hospital Problems Diagnosis Chronic anemia ESRD (end stage renal disease) on dialysis ([facility]) Ischemic dilated cardiomyopathy ([facility]) Chronic combined systolic and diastolic CHF (congestive heart failure) ([facility]) ESRD on hemodialysis ([facility]) History of coronary artery stent placement History of stroke without residual deficits NSTEMI (non-ST elevated myocardial infarction) ([facility]) Type 2 diabetes mellitus with hyperglycemia ([facility]) Essential hypertension Diabetic polyneuropathy associated with type 2 diabetes mellitus ([facility]) GERD (gastroesophageal reflux disease) Mixed hyperlipidemia Resolved [...] clinically significant changes in lab per [facility] Anticoagulation Protocol as follows: Orders for dosing changes and follow-up labs will be signed ???Per Protocol?? in [facility]. The name ofthe provider signed on the follow-up orders for cosignature will be assigned as follows: Orders placed by members of the Analytical Technician or Hospitalist physician groups: If the original [...] appropriate labs as indicated by the [facility] Anticoagulation Monitoring policy located on [employer] intranet, unless already ordered. The medications that [...] Safety Goal 3E and authorized by the [facility] Pharmacy and Therapeutics Committee. Nir Toney, PHARMACIST Cosigned by Richard Esparza MD at 12/28/2024 3:19 AM CDT documented in this encounter H&P Notes * Davion Mcconnell MD - 01/01/2025 1:24 PM CDT VASCULAR & ENDOVASCULAR [place]GERY [place] HISTORY & PHYSICAL HISTORY OF PRESENT ILLNESS: Ida Morelos is a 64 y.o. male who presents with pulsatile LUE AVG & arm swelling. PAST MEDICAL HISTORY: Past Medical History: Diagnosis Date Calculus of kidney Congestive heart failure (CMS/HCC) Coronary artery disease CRI (chronic renal insufficiency) Diabetes mellitus ([facility]) Difficult intravenous access GERD (gastroesophageal reflux disease) Hyperlipidemia Hypertension Myocardial infarction ([facility]) 2019 Obstructive sleep apnea CPAP not indicated at present time Stroke ([facility]) TIA (transient ischemic attack) PAST SURGICAL HISTORY: Past Surgical History: Procedure Laterality Date HX KNEE REPLACEMENT Right NOT a replacement NC CRTJ ARVEN FSTL XCP DIR ARVEN ANAST NONAUTOG GRF Left 11/05/2024 ARTERIOVENOUS GRAFT INSERTION performed by Esme Vail MD at [facility] MAIN OR FAMILY HISTORY: Family [...] 2nd Gen Pen Needle 32 gauge x / Needle Inject 2 Each by subcutaneous injection [...] Housing Stability: High Risk (02/21/2024) Received from [facility] Housing Stability Vital Sign Unable to Pay [...] for this patient ASSESSMENT & PLAN: Ida Morelos is presenting with pulsatile LUE AVG & arm swelling, concerning for venous outflow obstruction/stenosis. - LUE fistulagram - return to medicine floor post procedure Signed: Davion Mcconnell DO, [place] [facility] * Luis Alfredo Harris MD - 12/28/2024 3:53 AM CDT Images from the original note were not included. Your life is our life's work [facility] Hospitalist-Luis Alfredo Harris MD History and physical- date of admission: 12/28/2024 Patient name: Ida Morelos Date of : 1960 CSN number: [id number] PCP: No primary care provider on file. [...] failure,lumbar radiculopathy, GERD who was transferred from [facility] ER to [facility] ED on 12/2024 for further management of [...] was similar to his previous episode of OK for which he had 2 stents placed in [facility]. Denies cough, sputum production, fever, chills. He reports that he missed his dialysis session on Tuesday for medical appointment and had a catch-up session on . Past medical history: Past Medical History: Diagnosis Date Calculus of kidney Congestive heart failure (CMS/[facility]) Coronary artery disease CRI (chronic renal insufficiency) Diabetes mellitus (CMS/HCC) Difficult intravenous access GERD (gastroesophageal reflux disease) Hyperlipidemia Hypertension Myocardial infarction ([facility]) 2019 Obstructive sleep apnea CPAP not indicated at present time Stroke (CMS/[facility]) TIA (transient ischemic attack) Active chronic medical issues that patient has been followed for as outpatient: Patient Active Problem List Diagnosis Code Type 2 diabetes mellitus with hyperglycemia (CMS/HCC) E11.65 Acute on chronic congestive heart failure (CMS/HCC) I50.9 Accelerated hypertension I10 Essential hypertension I10 GERD (gastroesophageal reflux disease) K21.9 Mixed hyperlipidemia E78.2 TIA (transient ischemic attack) G45.9 NSTEMI (non-ST elevated myocardial infarction) ([facility]) I21.4 Hyperglycemia due to diabetes mellitus ([facility]) E11.65 Elevated d-dimer R79.89 Large pleural effusion J90 Diabetic polyneuropathy associated with type 2 diabetes mellitus ([facility]) E11.42 ESRD on hemodialysis ([facility]) N18.6, Z99.2 Lumbar radiculopathy, acute M54.16 Syncope R55 Atherosclerosis of [place] coronary artery of [place] heart without angina pectoris I25.10 History of coronary artery stent placement Z95.5 Hypertensive urgency I16.0 History of stroke without residual deficits Z86.73 Carpal tunnel syndrome, right G56.01 Chronic combined systolic and diastolic CHF (congestive heart failure) ([facility]) I50.42 Spinal stenosis of lumbar region with neurogenic claudication M48.062 Weakness of right lower extremity R29.898 Weakness of right upper extremity R29.898 Stable angina I20.89 Chronic anemia D64.9 Past surgical history: Past Surgical History: Procedure Laterality Date HX KNEE REPLACEMENT Right NOT a replacement NC CRTJ ARVEN FSTL XCP DIR ARVEN ANAST NONAUTOG GRF Left 11/05/2024 ARTERIOVENOUS GRAFT INSERTION performed by Esme Vail MD at [facility] MAIN OR Current medications: Prior [...] Housing Stability: High Risk (02/21/2024) Received from [facility] Housing Stability Vital Sign Unable to Pay [...] Wt 100 kg (220 lb 7.4 oz) [id number]% BMI 32.56 kg/m?? No intake or output data in the 24 hours ending 12/28/24556 Last documented weight: Weight: 100 kg (220 lb 7.4 oz) (12/28/24 0100) EXAM: General: alert, in no distress Mental [...] Labs 12/28/24 0109 INR 1.1 PT 14.4 EKG: Personally interpreted [...] systolic and diastolic CHF (congestive heart failure) ([facility]) ESRD on hemodialysis ([facility]) History of coronary artery stent placement History of stroke without residual deficits Type 2 diabetes mellitus with hyperglycemia ([facility]) Essential hypertension Diabetic polyneuropathy associated with type 2 diabetes mellitus ([facility]) GERD (gastroesophageal reflux disease) Mixed hyperlipidemia Resolved [...] record, Referring and communication with other health rn intensive care unit (not separately reported), Independently interpreting results and [...] Reviewed in MAR Physical Exam: BP (!) 120/97 Pulse 63 Temp 97.5 ??F (36.4 ??C) Resp 13 Ht 5' 9 (1.753 m) Wt 96.5 kg (212 lb 11.9 oz) SpO2 99% BMI 31.42 kg/m?? Physical Exam General:NAD, Alert and O X 3 Respiratory: No respiratory distress CV: Trace leg edema berenice Skin: W/D/I Neuro: Alert, no overt neuro deficits appreciated Labs: Reviewed in EPIC Lab Results Component Value Date/Time NA 134 [...] and Plan: ESRD: - On hemodialysis at [facility] dialysis unit on Tuesday, Tuesday and Tuesday. - Will continue to see on hemodialysis days 2. Anemia of ESRD: - Hgb < 10. - dosed epogen stimulating agent 12/28/24 Jessica Luz NP [facility] 12/31/24, 10:08 AM Cosigned by [...] for nausea and vomiting. Medications Reviewed in [facility] Physical Exam: BP (!) 168/79 Pulse 74 Temp 97.7 ??F (36.5 ??C) (Temporal) Resp 20 Ht 5' 9 (1.753 m) Wt 100 kg (220 lb 7.4 oz) SpO2 97% BMI 32.56 kg/m?? Physical Exam General:NAD, Alert and O X 3 HEENT:NCAT, PERRLA Respiratory: No respiratory distress CV: Trace leg edema berenice Skin: W/D/I Neuro: Alert, no overt neuro deficits appreciated Labs: Reviewed in [facility] Lab Results Component Value Date/Time NA 140 [...] Assessment and Plan: ESRD: On hemodialysis at [facility] dialysis unit on Tuesday, Tuesday and Tuesday. He was seen and evaluated on hemodialysis today. Stable tx. On 3 K bath ultrafiltration 3 L. Check phosphorous with next labs. Will continue to see on hemodialysis days Tuesday, Tuesday and Tuesday 2. Anemia of ESRD: Hgb < 10. Will dose with epogen stimulating agent today. Treasure Garza MD [facility] 12/28/24, 12:07 PM documented in this encounter Consult Notes * Nigel Ibarra RN - 01/01/2025 7:11 AM CDT Cardiac rehab order noted and initiated for: Problem: NSTEMI, s/p PTCA Plan: Provide patient and/or family education for above problem prior to discharge. Goal: Patient and/or family will verbalize understanding of the education. Waterflow: Kadie Primary Senior Environmental Consultant: Dr. Blue / [place] [facility] * Latasha Torres RCP - 12/29/2024 8:09 AM CDT Cardiac rehab order noted and initiated for: Problem: NSTEMI, ICM, LHC pending Plan: Provide patient and/or family education for above problem prior to discharge. Goal: Patient and/or family will verbalize understanding of the education. Waterflow: Kadie Primary Senior Environmental Consultant: Dr. Blue / [place] [facility] * Gisela Harris FNP - 12/28/2024 10:56 AM CDTAssociated Order(s): IP CONSULT TO CARDIOLOGY CARDIOLOGY CONSULTATION [place], [place] Requesting Physician: Luis Alfredo Harris MD Primary Senior Environmental Consultant: [place] [facility] Senior Environmental Consultant: Dr. Blue Date of Admission: 12/28/2024 Today's Date: 12/28/2024 Reason for Consultation: chest pain HPI Ida Morelos is a 64 y.o. male with a history of ESRD on HD, DM II, Dyslipidemia who had normal coronary angiogram 2016 and 2020 however he had OK with PCI x2 in [place] back in June. EF 45%. He presents [...] this am. Troponin 181, 171, 153. NtproBNP 81185 EKG NSR 75 bpm. He was placed on heparin gtt for possible NSTEMI. Past Medical History: Diagnosis Date Calculus of kidney Congestive heart failure (CMS/HCC) Coronary artery disease CRI (chronic renal insufficiency) Diabetes mellitus (CMS/[facility]) Difficult intravenous access GERD (gastroesophageal reflux disease) Hyperlipidemia Hypertension Myocardial infarction (CMS/HCC) 2019 Obstructive sleep apnea CPAP not indicated at present time Stroke (CMS/[facility]) TIA (transient ischemic attack) Past Surgical History: Procedure Laterality Date HX KNEE REPLACEMENT Right NOT a replacement NC CRTJ ARVMARIE FSTL XCP DIR ARLETH ANAST NONAUTOG GRF Left 11/05/2024 ARTERIOVENOUS GRAFT INSERTION performed by Esme Vail MD at [facility] MAIN OR Facility-Administered Medications Prior to Admission Medication Dose Route Frequency Provider Last Rate Last Admin ciprofloxacin HCl (CIPRO) tablet 500 mg 500 mg Oral ONE time only Ella Loya FNP Medications Prior to Admission Medication Sig [...] Weight: 100 kg (220 lb7.4 oz) (12/28/24 06) General: A/O x 3, well nourished, in [...] Joyce Type 2 diabetes mellitus with hyperglycemia ([facility]) GERD (gastroesophageal reflux disease) NSTEMI (non-ST elevated myocardial infarction) ([facility]) Diabetic polyneuropathy associated with type 2 diabetes mellitus ([facility]) ESRD on hemodialysis ([facility]) History of coronary artery stent placement History of stroke without residual deficits Chronic combined systolic and diastolic CHF (congestive heart failure) ([facility]) Chronic anemia Plan: Plan LHC with possible PCI. Timing TBD as patient has dialysis this am. Continue dapt/statin/bb/ heparin gtt. CAD- OK with PCI Jun 2024 Ischemic cardiomyopathy- EF 45%. Continue current. ESRD- HD this am Dyslipidemia- continue high dose high intensity statin [facility] 12/28/24 Cosigned by Nabil Blue MD at 12/28/2024 2:17 PM CDT Associated attestation - SuNabil hinton MD - 12/28/2024 2:17 PM CDT Patient independently interviewed & examined, medical records reviewed. See note by Gisela Harris for details. Mr. Morelos is a 64-year-old gentleman with a history of ESRD on dialysis, diabetes type 2, dyslipidemia, CAD with PCI in [place] in 07/16/2024 reported he had a OK and got 2 stents, ischemic cardiomyopathy LVEF [...] Blue MD This documentation was created by [employer] frame table operator helper software (known for inherent frame table operator helper error) using [employer] EHR. Effort has been done to assure accuracy of frame table operator helper. Any obvious errors or omissions should be clarified with the author of the document. documented in this encounter OR Notes * Operative Report - Davion Mcconnell MD - 01/01/2025 2:01 PM CDT [facility] SURGERY [facility] ENDOVASCULAR THERAPY [place] Operative Note PATIENT NAME: Ida Morelos : 1960; AGE: 64 y.o.; SEX: M ; Date of Service: 01/01/25 Pre-operative Diagnosis: LUE swelling History of left arm AV-graft End stage renal disease on dialysis Post-operative Diagnosis: Same Procedures Performed: Monitored anesthesia care (see below) Ultrasound guided access left arm AV-graft Venogram CIRCUIT RECORDER axillary vein (6x40 balloon) Surgeons/Assistants: Davion Mcconnell [...] understanding of potential risks including stroke, , OK, cardiopulmonary failure, renal failure, hemorrhage, infection, damage to surrounding structures, nerve injury, possible need for reoperation. Procedure Detail: The patient was brought the to laborer prestressed concrete. The consent was confirmed with the patient & laborer prestressed concrete staff. The surgical site was prepped in [...] pressure, onset 1800 yesterday. Was seen at [place] and started on nitro gtt and heparin [...] Monitors on and audible. Pt placed on lunchroom monitor, pulse ox and blood pressure monitor. Call [...] 06/2024. His care is primarily managed at [place]. He is scheduled for a follow-up visit on Tuesday for a narrowed graft. The patient attempted to alleviate the discomfort with nitroglycerin, but it was ineffective, leading to his admission to [facility]. Despite receiving heparin, nitroglycerin, morphine, and a [...] Stents placement in 06/2024 Graft procedure at [place] SOCIAL HISTORY He does not smoke, drink alcohol, or use drugs. PAST MEDICAL HISTORY REVIEWED MEDICAL: Patient has a past medical history of Calculus of kidney, Congestive heart failure ([facility]/HCC), Coronary artery disease, CRI (chronic renal insufficiency), Diabetes mellitus ([facility]), Difficult intravenous access, GERD (gastroesophageal reflux disease), Hyperlipidemia, Hypertension, Myocardial infarction ([facility]/HCC) (2019), Obstructive sleep apnea, Stroke ([facility]), and TIA (transient ischemic attack). SURGICAL: Patient has a past surgical history that includes knee replacement (Right) and pr crtj arven fstl xcp dir arven anast nonautog grf (Left, 11/05/2024). ALLERGIES Patient has [...] patient is a 64-year-old male transferred [place] [facility] [place] for evaluation of chest pain. He does [...] may have been created by an artificial frame table operator helper software such as [employer] and [employer] such as [employer]. Effort has been done to assure accuracy of frame table operator helper. Any obvious errors or omissions should be clarified with the author of the document. Richard Esparza MD Medications Administered During the ED Stay from 12/28/2024 0052 to 12/28/2024 0313 Date/Time Order Dose Route Action 12/28/2024 0202 CDT heparin in 0.45% NaCl 25,000 unit/250 mL infusion 12 Units/kg/hr IV Rate Change 12/28/2024 014 CDT heparin in 0.45% NaCl 25,000 unit/250 mL infusion 10 Units/kg/hr IV New Bag 12/28/2024116 CDT nitroglycerin (NITRO-BID) 2 % topical ointment 1 Inch 1 Inch Topical Applied 12/28/2024116 CDT aspirin (SHILA CHEWABLE) chewable tablet 81 mg 81 mg Oral Given LAST VS BP: 124/63 (12/28/24244), Heart Rate: 67 bpm (12/28/24244), Resp: 10 (12/28/24244), Pulse: 67(12/28/24244), Temp: 97.7 ??F (36.5 ??C) (12/28/2499), Temp src: Oral (12/28/2499), SpO2: 93 % (12/28/24244) CLINICAL IMPRESSION Final diagnoses: [R07.9] Acute chest pain (Primary) [N18.6, Z99.2] ESRD (end stage renal disease) on dialysis ([facility]) [R79.89] Elevated troponin [D64.9] Normocytic anemia [D72.819] [...] was made to Outpatient Cardiopulmonary Rehab at [place]. Patient was provided with contact information for [...] Urbano RN - 12/31/2024 9:46 AM CDT Research Software Engineer Discharge Planning Expected Discharge Date Jan 01, 2025 Plan Discharge To: Home or Self Care (12/29/24739) Plan Discharge To - Alternate: Home or Self Care (12/29/24739) Referrals Status: CM following for discharge planning [facility] [place] [address] [facility] Patient / Family Communications Resources Provided Transportation Plan Family Follow Up Appointments Scheduled Kierra Urbano, RN * Care Plan - Esme Solares RN - 12/29/2024 5:45 PM CDT Patient is resting in bed with call light and personal belongings within reach. Hourly rounding performed. Medications given per AUG. Heparin at 17 units/kg/hr. Therapeutic twice today. Next anti-XA is tomorrow 0500. Planning for [facility] Tuesday. Patient says he is having a [...] inpatient telemetry. *This summary was created by [employer] MAR[employer]. The responses are meant to enhance, not replace normal workflow. Please contact the ED nurse for any additional information.* * Treatment Plan - Nir Toney V., PHARMACIST - 12/28/2024 1:19 AM CDT [facility] Adult Heparin Anti-Xa Monitoring Protocol [facility] ORDERS ARE ENTERED ???PER PROTOCOL?? Nursing [...] Info) Description 01/04/2025 6:30 AM CDT Appointment [facility] [address] [place] [address] 01/15/2025 1:30 PM CDT Office Visit [facility] Vascular Surgery [place] [address] [address] Davion Mcconnell MD [address] [place] [address] Esme Vail MD [address] [place] [address] 08/28/2025 1:00 PM WORK COUNSELOR Office Visit [facility] Neurosurgery [address] [place] [address] Adali Hammond PA [address] [place] [address] Pending Results Name Type Priority Associated Diagnoses Date /Time EKG 12-LEAD ECG Routine 01/01/2025 2: 45 PM CDT Scheduled Referrals Name Type Priority Associated Diagnoses Orde r Schedule AMB REFERRAL TO CARDIAC REHAB Outpatient Referral Routine NSTEMI (non-ST elevated myocardial infarction) ([facility]) S/P PTCA (percutaneous transluminal coronary angioplasty) Ordered: 01/01/2025 documented as of this encounter Procedures Procedure Name Priority Date/Time Associated Diagnosis Comments TELEMETRY REPORT 01/02/2025 2:39 AM CDT EKG 12-LEAD Routine 01/01/2025 2:45 PM CDT Procedure Note - Ash Wheat MD - 01/01/2025 2:45 PM CDTThis note is in progress. [facility] [address] [place] [address] Test Date: 2025-01-01 Pat Name: IDA KAYP Department: 12 Room: [address] [place] [address] Gender: Male 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: [id number] : 1960 Requested By: Order Number: [id number] Reading MD: Measurements Intervals Leopold Rate: 65 P: 0 NC: 0 QRS: -48 QRSD: 120 T: 55 QT: 412 QTc: 428 Interpretive Statements Wide QRS rhythm Left axis deviation Anteroseptal infarct, age undetermined Abnormal ECG CL FISTULOGRAM Routine 01/01/2025 1:57 PM CDT End stage renal disease (CMS/HCC) POC GLUCOSE Routine 01/01/2025 11:28 AM CDT [...] * TELEMETRY REPORT (01/02/2025 2:39 AM CDT) Provider Scanning ECG ORDERABLES Final Result * CL FISTULOGRAM (01/01/2025 1:57 PM CDT) 01/01/2025 1:17 PM CDT Narrative Esthela Mcknight RN - 01/01/2025 2:05 PM CDT Procedure was not performed by a Senior Environmental Consultant, please see Chart Review - Notes tab for operative report. Davion Mcconnell MD CUP CATH ORDERABLES Final Resu lt * (ABNORMAL) POC GLUCOSE (01/01/2025 11:28 AM CDT) Pathologist [facility] GLUCOSE POC 145(H) 74 - 99 mg/dL 01/01/2025 11:[address] [facility] SPECIMEN SOURCE, GLUCOSE POC Capillary 01/01/2025 11:28 AM CDT [facility] Blood, whole 01/01/2025 11:2 8 AM CDT 01/01/2025 11:43 AM CDT Result [facility] Phil Verdugo MD POINT OF CARE TESTING Final Result Performing Organization Address [facility] Co de Phone Number [facility] CLIA # [id number] [address] [address] * (ABNORMAL) POC GLUCOSE (01/01/2025 7:03 AM CDT) GLUCOSE POC 155(H) 74 - 99 mg/dL 01/01/2025 7:03 AM CDT [facility] SPECIMEN SOURCE, GLUCOSE POC Capillary 01/01/2025 7:03 AM CDT [facility] Blood, whole 01/01/2025 7:03 AM CDT 01/01/2025 7:36 AM CDT Phil Verdugo MD POINT OF CARE TESTING Final Result Performing Organization Address [facility] Co de Phone Number [facility] CLIA # [id number] [address] [place] [address] * (ABNORMAL) COMPREHENSIVE METABOLIC PANEL (01/01/2025 1:38 AM CDT) [facility] SODIUM 136 136 - 145 mmol/L 01/01/2025 2:27 AM CDT [facility] POTASSIUM 4.6 3.5 - 5.1 mmol/L 01/01/2025 2:27 AM CDT [facility] CHLORIDE 98 98 - 107 mmol/L 01/01/2025 2:27 AM CDT [facility] CO2 27 22 - 29 mmol/L 01/01/2025 2:27 AM CDT [facility] CALCIUM 8.3(L) 8.8 - 10.2 mg/dL 01/01/2025 2:27 AM CDT [facility] BUN 31(H) 8 - 23 mg/dL 01/01/2025 2:27 AM CDT [facility] CREATININE 4.19(H) 0.67 - 1.17 mg/dL 01/01/2025 2:27 AM CDT [facility] GLUCOSE 166(H) 74 - 99 mg/dL 01/01/2025 2:27 AM T [facility] TOTAL PROTEIN 5.8(L) 6.4 - 8.3 g/dL 01/01/2025 2:27 AM T [facility] ALBUMIN 3.2(L) 3.5 - 5.2 g/dL 01/01/2025 2:27 AM CDT [facility] BILIRUBIN TOTAL 0.3 0.0 - 1.0 mg/dL 01/01/2025 2:27 AM T [facility] ALKALINE PHOSPHATASE 88 40 - 129 U/L 01/01/2025 2:27 AM T [facility] AST 17 10 - 50 U/L 01/01/2025 2:27 AM [facility] ALT 15 <=50 U/L 01/01/2025 2:27 AM T [facility] GFR 15(L) >=60 mL/min/1. 73 sq meter 01/01/2025 2:27 AM [facility] Comment:eGFR calculated with 2020 CKD-EPI equation. Vegetarian diet, extremely high or low muscle mass, and may affect results. Cystatin C with Glomerular Filtration Rate is a suitable alternative for these patients. ANION GAP 11 9 - 20 mmol/L 01/01/2025 2:27 AM T [facility] Blood Venipuncture / Unknown 01/01/2025 1:38 AM CDT 01/01/2025 1:45 AM CDT us Phil Verdugo MD CHEMISTRY ORDERABLES Final Result [facility] CLIA # [id number] [address] [address] [place] [address] * (ABNORMAL) CBC WITH DIFFERENTIAL (01/01/2025 1:38 AM CDT) [facility] WBC 4.1(L) 4.8 - 10.8 K/uL 01/01/2025 1:51 AM CDT [facility] RBC 3.20(L) 4.60 - 6.20 M/uL 01/01/2025 1:51 AM CDT [facility] HEMOGLOBIN 9.2(L) 14.0 - 18.0 g/dL 01/01/2025 1:[facility] 27.2(L) 41.0 - 53.0 % 01/01/2025 1:51 AM [facility] MCV 85.0 84.0 - 103.0 fL 01/01/2025 1:51 AM [facility] MCH 28.8 27.0 - 34.0 pg 01/01/2025 1:51 AM [facility] MCHC 33.8 30.0 - 35.0 g/dL 01/01/2025 1:51 [facility] PLATELETS 182 140 - 440 K/uL 01/01/2025 1:51 AM [facility] MPV 9.8 8.9 - 12.8 fL 01/01/2025 1:51 AM [facility] RDW 14.7(H) 11.0 - 14.5 % 01/01/2025 1:51 AM [facility] RDW-STDEV 45.8 37.0 - 54.0 fL 01/01/2025 1:51 AM CDT [facility] NEUTROPHILS 56 42 - 75 % 01/01/2025 1:51 AM CDT [facility] LYMPHOCYTES 33 24 - 44 % 01/01/2025 1:51 AM CDT [facility] MONOCYTES 9 2 - 10 % 01/01/2025 1:51 AM CDT [facility] EOSINOPHILS 1 0 - 7 % 01/01/2025 1:51 [facility] BASOPHIL[facility] 1 0 - 1 % 01/01/2025 1:51 AM CDT [facility] IMMATURE GRANULOCYTES 0 0 - 2 % 01/01/2025 1:51 AM CDT [facility] NEUTROPHIL ABSOLUTE 2.32 2.00 - 8.00 K/uL 01/01/2025 1:51 AM CDT [facility] LYMPHOCYTE ABSOLUTE 1.37 1.20 - 4.00 K/uL 01/01/2025 1:51 AM CDT [facility] MONOCYTE ABSOLUTE 0.38 0.10 - 0.60 K/uL 01/01/2025 1:51 AM CDT [facility] EOSINOPHIL ABSOLUTE 0.02 0.00 - 0.70 K/uL 01/01/2025 1:51 AM CDT [facility] BASOPHILS ABSOLUTE 0.04 0.00 - 0.20 K/uL 01/01/2025 1:51 AM CDT [facility] IMMATURE GRANULOCYTES ABSOLUTE 0.00 0.00 - 0.10 K/uL 01/01/2025 1:51 AM T [facility] SMEAR REVIEWED: NA - Not Applicable 01/01/2025 1:51 AM [facility] Blood Venipuncture / Unknown 01/01/2025 1:38 AM CDT 01/01/2025 1:45 AM CDT us Phil Verdugo MD HEMATOLOGY ORDERABLES Final Result [facility] CLIA # [id number] [address] [place] [address] [place] [address] * UNFRACTIONATED HEPARIN MONITORING (01/01/2025 1:38 AM CDT) ANTI-XA UNFRAC HEP <0.10 See Interpretation IU/mL 01/01/2025 2:01 AM CDT [facility] Blood Venipuncture / Unknown 01/01/2025 1:38 AM CDT 01/01/2025 1:45 AM CDT Narrative [facility] - 01/01/2025 2:01 AM CDT Therapeutic Range: PT/DVT Heparin Protocol 0.3 - 0.7 IU/ml Cardiac Heparin Protocol 0.3 - 0.6 IU/ml The reference range for this test is specific to the anticoagulant and is not appropriate for monitoring patients on a DOAC protocol. us Bharati Jarrell MD HEMATOLOGY ORDERABLES Final Resu lt Performing Organization Address [facility] Co de Phone Number [facility] CLIA # [id number] [address] [address] [place] [address] * (ABNORMAL) POC GLUCOSE (12/31/2024 8:28 PM CDT) GLUCOSE POC 196(H) 74 - 99 mg/dL 12/31/2024 8:28 PM CDT [facility] SPECIMEN SOURCE, GLUCOSE POC Capillary 12/31/2024 8:28 PM CDT [facility] Blood, whole 12/31/2024 8:28 PM CDT 12/31/2024 9:25 PM CDT us Phil Verdugo MD POINT OF CARE TESTING Final Result Performing Organization Address [facility] de Phone Number [facility] CLIA # [id number] [address] [address] * (ABNORMAL) POC GLUCOSE (12/31/2024 3:40 PM CDT) GLUCOSE POC 112(H) 74 - 99 mg/dL 12/31/2024 3:40 PM CDT [facility] SPECIMEN SOURCE, GLUCOSE POC Capillary 12/31/2024 3:40 PM CDT [facility] Blood, whole 12/31/2024 3:40 PM CDT 12/31/2024 3:49 PM CDT Phil Verdugo MD POINT OF CARE TESTING Final Result [facility] KENIA # [id number] [address] [facility] [place] [address] * LEFT HEART CATH, PERCUTANEOUS CORONARY INTERVENTION, CORONARY LITHOTRIPSY, IVUS-CORONARY INTRAVASCULAR (12/31/2024 3:08 PM CDT) 12/31/2024 2:34 PM CDT Narrative [facility] - 12/31/2024 4:54 PM CDT Prox LAD [...] CATH SHOCKWAVE C2+ IVL 3.0X12MM 5FR 138CM [id number] Angioplasty: Angioplasty independent of stent deployment was performed. Angioplasty was performed independent of stent deployment. Supplies Used: CATH BALLN PTCA 3.86X71SD SAPPHIRE NC24 CORONARY [id number] Post-Intervention Lesion Assessment: The intervention was successful. [...] upper/lower extremity vessels). Cerebrovascular Disease History: Unknown Gisela Harris [employer] CATH ORDERABLES Final Result [facility] CLIA [id number] [address] [facility] [address] [place] [phone], * (ABNORMAL) POC ACTIVATED CLOTTING TIME (12/31/2024 3:07 PM CDT) [facility] ACTIVATED CLOTTING TIME POC 302(H) 116 - 140 sec 12/31/2024 3:07 PM CDT [facility] Blood 12/31/2024 3:07 PM CDT 12/31/2024 3:10 PM CDT Phil Verdugo MD POINT OF CARE TESTING Final Result Performing Organization Address City/[facility]/ZIP Co de Phone Number [facility] CLIA # [id number] [address] [address] * ACUTE HEPATITIS PANEL (12/31/2024 10:28 AM CDT) Pathologist [facility] HEPATITIS B SURFACE AG NON-REACT JOSE Non-react jose 12/31/2024 11:25 AM CDT [facility] Comment:A non-reactive test result does not exclude the possibility of exposure to or infection with hepatitis B. HEPATITIS B CORE IGM NON-REACT JOSE Non-react jose 12/31/2024 11:25 AM CDT [facility] Comment:IgM antibodies to HB c were not detected; does not exclude the possibility of exposure to HBV. HEPATITIS A IGM Non-react jose Non-react jose 12/31/2024 11:25 AM CDT [facility] Comment:A negative test resu lt does not exclude the possibility of exposure to Hepatitis A virus. HEPATITIS C AB NON-REACT JOSE Non-react jose 12/31/2024 11:25 AM CDT [facility] Comment:Antibodies to HCV we re not detected, does not exclude the possibility of exposure to HCV. Blood Venipuncture / Unknown 12/31/2024 10:28 AM CDT 12/31/2024 10:33 AM CDT us Jessica Luz NP CHEMISTRY ORDERABLES Final Resul t Performing Organization Address City/[facility]/ZIP Co de Phone Number [facility] CLIA # [id number] [facility] [address] * (ABNORMAL) POC GLUCOSE (12/31/2024 7:05 AM CDT) [facility] GLUCOSE POC 155(H) 74 - 99 mg/dL 12/31/2024 7:05 AM CDT [facility] SPECIMEN SOURCE, GLUCOSE POC Capillary 12/31/2024 7:05 AM CDT [facility] Blood, whole 12/31/2024 7:05 AM CDT 12/31/2024 7:24 AM CDT us Bharati Jarrell MD POINT OF CARE TESTING Final Resu lt Performing Organization Address City/[facility]/ZIP Co de Phone Number [facility] CLIA # [id number] [address] [address] [place] [address] * (ABNORMAL) BASIC METABOLIC PANEL (12/31/2024 4:42 AM CDT) SODIUM 134(L) 136 - 145 mmol/L 12/31/2024 5:34 AM CDT [facility] POTASSIUM 4.6 3.5 - 5.1 mmol/L 12/31/2024 5:34 AM CDT [facility] CHLORIDE 98 98 - 107 mmol/L 12/31/2024 5:34 AM CDT [facility] CO2 24 22 - 29 mmol/L 12/31/2024 5:34 AM CDT [facility] CALCIUM 8.7(L) 8.8 - 10.2 mg/dL 12/31/2024 5:34 AM CDT [facility] BUN 62(H) 8 - 23 mg/dL 12/31/2024 5:34 AM T [facility] CREATININE 6.43(H) 0.67 - 1.17 mg/dL 12/31/2024 5:34 AM T [facility] GLUCOSE 199(H) 74 - 99 mg/dL 12/31/2024 5:34 AM T [facility] GFR 9(L) >=60 mL/min/1. 73 sq meter 12/31/2024 5:34 AM T [facility] Comment:eGFR calculated with 2020 CKD-EPI equation. Vegetarian diet, extremely high or low muscle mass, and may affect results. Cystatin C with Glomerular Filtration Rate is a suitable alternative for these patients. ANION GAP 12 9 - 20 mmol/L 12/31/2024 5:34 AM T [facility] Blood Venipuncture / Unknown 12/31/2024 4:42 AM CDT 12/31/2024 5:03 AM CDT us Bharati Jarrell MD CHEMISTRY ORDERABLES Final Resul t [facility] CLIA # [id number] [address] [place] [id number] * (ABNORMAL) CBC WITH DIFFERENTIAL (12/31/2024 4:42 AM CDT) [facility] WBC 4.3(L) 4.8 - 10.8 K/uL 12/31/2024 5:17 AM CDT [facility] RBC 3.39(L) 4.60 - 6.20 M/uL 12/31/2024 5:17 AM CDT [facility] HEMOGLOBIN 9.8(L) 14.0 - 18.0 g/dL 12/31/2024 5:17 AM CDT [facility] HEMATOCRIT 29.7(L) 41.0 - 53.0 % 12/31/2024 5:17 AM CDT [facility] MCV 87.6 84.0 - 103.0 fL 12/31/2024 5:[facility] MCH 28.9 27.0 - 34.0 pg 12/31/2024 5:17 AM CDT [facility] MCHC 33.0 30.0 - 35.0 g/dL 12/31/2024 5:17 AM CDT [facility] PLATELETS 200 140 - 440 K/uL 12/31/2024 5:17 AM [facility] MPV 10.0 8.9 - 12.8 fL 12/31/2024 5:17 AM [facility] RDW 14.6(H) 11.0 - 14.5 % 12/31/2024 5:17 AM [facility] RDW-STDEV 46.9 37.0 - 54.0 fL 12/31/2024 5:17 AM CDT [facility] NEUTROPHILS 45 42 - 75 % 12/31/2024 5:17 AM CDT [facility] LYMPHOCYTES 44 24 - 44 % 12/31/2024 5:17 AM CDT [facility] MONOCYTES 9 2 - 10 % 12/31/2024 5:17 AM CDT [facility] EOSINOPHILS 1 0 - 7 % 12/31/2024 5:17 AM CDT [facility] BASOPHILS 1 0 - 1 % 12/31/2024 5:17 AM CDT [facility] IMMATURE GRANULOCYTES 0 0 - 2 % 12/31/2024 5:17 AM CDT [facility] NEUTROPHIL ABSOLUTE 1.91(L) 2.00 - 8.00 K/uL 12/31/2024 5:17 AM CDT [facility] LYMPHOCYTE ABSOLUTE 1.89 1.20 - 4.00 K/uL 12/31/2024 5:17 AM CDT [facility] MONOCYTE ABSOLUTE 0.37 0.10 - 0.60 K/uL 12/31/2024 5:17 AM CDT [facility] EOSINOPHIL ABSOLUTE 0.03 0.00 - 0.70 K/uL 12/31/2024 5:17 AM CDT [facility] BASOPHILS ABSOLUTE 0.05 0.00 - 0.20 K/uL 12/31/2024 5:17 AM CDT [facility] IMMATURE GRANULOCYTES ABSOLUTE 0.01 0.00 - 0.10 K/uL 12/31/2024 5:17 AM CDT [facility] SMEAR REVIEWED: NA - Not Applicable 12/31/2024 5:17 AM T [facility] Blood Venipuncture / Unknown 12/31/2024 4:42 AM CDT 12/31/2024 5:03 AM CDT us Bharati Jarrell MD HEMATOLOGY ORDERABLES Final Resu lt [facility] CLIA # [id number] [address] [place] [address] [employer], [place] [id number] * UNFRACTIONATED HEPARIN MONITORING (12/31/2024 4:42 AM CDT) ANTI-XA UNFRAC HEP 0.46 See Interpretation IU/mL 12/31/2024 5:19 AM CDT [facility] Blood Venipuncture / Unknown 12/31/2024 4:42 AM CDT 12/31/2024 5:03 AM CDT [facility] LABORATORY [facility] - 12/31/2024 5:19 AM CDT Therapeutic Range: PT/DVT Heparin Protocol 0.3 - 0.7 IU/ml Cardiac Heparin Protocol 0.3 - 0.6 IU/ml The reference range for this test is specific to the anticoagulant and is not appropriate for monitoring patients on a DOAC protocol. us Bharati Jarrell MD HEMATOLOGY ORDERABLES Final Resu lt [facility] CLIA # [id number] [address] [place] [id number] * (ABNORMAL) CBC WITHOUT DIFFERENTIAL (12/30/2024 11:36 PM CDT) WBC 4.5(L) 4.8 - 10.8 K/uL 12/30/2024 11:44 PM CDT [facility] RBC 3.51(L) 4.60 - 6.20 M/uL 12/30/2024 11:44 PM CDT [facility] HEMOGLOBIN 10.0(L) 14.0 - 18.0 g/dL 12/30/2024 11:44 PM [facility] HEMATOCRIT 30.6(L) 41.0 - 53.0 % 12/30/2024 11:44 PM CDT [facility] MCV 87.2 84.0 - 103.0 fL 12/30/2024 11:44 PM CDT [facility] MCH 28.5 27.0 - 34.0 pg 12/30/2024 11:44 PM T [facility] MCHC 32.7 30.0 - 35.0 g/dL 12/30/2024 11:44 PM [facility] PLATELETS 209 140 - 440 K/uL 12/30/2024 11:44 PM T [facility] MPV 9.9 8.9 - 12.8 fL 12/30/2024 11:44 PM CDT [facility] RDW 14.7(H) 11.0 - 14.5 % 12/30/2024 11:44 PM CDT [facility] RDW-STDEV 47.2 37.0 - 54.0 fL 12/30/2024 11:44 PM CDT [facility] Blood Venipuncture / Unknown 12/30/2024 11:36 PM CDT 12/30/2024 11:42 PM CDT us Davion Mcconnell MD HEMATOLOGY ORDERABLES Final Re sult Performing Organization Address City/[facility]/ZIP Co de Phone Number [facility] CLIA # [id number] [address] [address] [place] [address] * (ABNORMAL) TROPONIN 6 HR, 5TH GEN (12/30/2024 11:36 PM CDT) TROPONIN T, 6 HR 5TH GEN 160(HH) <=15 ng/L 12/31/2024 12:35 AM CDT [facility] DELTA 6HR TROPONIN T % -2 See Interp. % 12/31/2024 12:35 AM CDT [facility] Blood Venipuncture / Unknown 12/30/2024 11:36 PM CDT 12/30/2024 11:44 PM CDT Narrative [facility] - 12/31/2024 12:35 AM CDT Troponin elevated. Delay in collection of timed specimen beyond recommended collection interval. Results must be interpreted in clinical context. Delta not changing. us Bharati Jarrell MD CHEMISTRY ORDERABLES Final Resul t Performing Organization Address [facility]/ZIP Co de Phone Number [facility] CLIA # [id number] [address] [address] [place] [address] * (ABNORMAL) POC GLUCOSE (12/30/2024 8:41 PM CDT) GLUCOSE POC 171(H) 74 - 99 mg/dL 12/30/2024 8:41 PM CDT [facility] SPECIMEN SOURCE, GLUCOSE POC Capillary 12/30/2024 8:41 PM CDT [facility] Blood, whole 12/30/2024 8:41 PM CDT 12/30/2024 9:37 PM CDT us Bharati Jarrell MD POINT OF CARE TESTING Final Resu lt Performing Organization Address [facility] Co de Phone Number [facility] CLIA # [id number] [address] [place] [phone] * (ABNORMAL) TROPONIN 2 HR, 5TH GEN (12/30/2024 7:17 PM CDT) Pathologist [facility] TROPONIN T, 2 HR 5TH GEN 160(HH) <=15 ng/L 12/30/2024 8:00 PM CDT [facility] DELTA 2HR TROPONIN T % -2 See Interp. % 12/30/2024 8:00 PM CDT [facility] Blood Venipuncture / Unknown 12/30/2024 7:17 PM CDT 12/30/2024 7:23 PM CDT Narrative [facility] - 12/30/2024 8:00 PM CDT Troponin elevated. Delay in collection of timed specimen beyond recommended collection interval. Results must be interpreted in clinical context. Delta not changing. us Bharati Jarrell MD CHEMISTRY ORDERABLES Final Resul t Performing Organization Address [facility] Co de Phone Number [facility] CLIA # [id number] [address] [id number] * (ABNORMAL) TROPONIN BASELINE, 5TH GEN (12/30/2024 4:56 PM CDT) TROPONIN T, BASELINE 5TH GEN 163(HH) <=15 ng/L 12/30/2024 6:10 PM CDT [facility] Blood Venipuncture / Unknown 12/30/2024 4:56 PM CDT 12/30/2024 5:[address] [facility] - 12/30/2024 6:10 PM CDT Troponin elevated. 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 : 1960 Requested By: Order Number: [id number] Reading MD: Neeta Tejeda Measurements Intervals Leopold Rate: 61 P: 44 NC: 184 QRS: -56 QRSD: 122 T: 48 QT: 442 QTc: 444 Interpretive Statements Normal sinus rhythm Left axis deviation Septal infarct, age undetermined Abnormal ECG Electronically Signed On 12-31-2024 6:38:43 CDT by Neeta Tejeda Procedure Note Provider, Historical - 12/31/[address] [address] Test Date: 2024-12-30 Pat Name: IDA MORELOS Department: 12 Room: 4122 01 Gender: Male 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: [id number] : 1960 Requested By: Order Number: [id number] Reading MD: Neeta Tejeda Measurements Intervals Leopold Rate: 61 P: 44 NC: 184 QRS: -56 QRSD: 122 T: 48 QT: 442 QTc: 444 Interpretive Statements Normal sinus rhythm Left axis deviation Septal infarct, age undetermined Abnormal ECG Electronically Signed On 12-31-2024 6:38:43 CDT by Neeta Tejeda us Bharati Jarrell MD ECG ORDERABLES Final Result Performing Organization Address City/[facility] Co de Phone Number INTERFACE SYSTEM Refer to clinic/hospital department * (ABNORMAL) POC GLUCOSE (12/30/2024 4:52 PM CDT) GLUCOSE POC 174(H) 74 - 99 mg/dL 12/30/2024 4:52 PM CDT [facility] SPECIMEN SOURCE, GLUCOSE POC Capillary 12/30/2024 4:52 PM CDT [facility] Blood, whole 12/30/2024 4:52 PM CDT 12/30/2024 5:15 PM CDT us Bharati Jarrell MD POINT OF CARE TESTING Final Resu lt Performing Organization Address [facility] Co de Phone Number [facility] CLIA # [id number] [address] [place] [address] [place] [address] * (ABNORMAL) POC GLUCOSE (12/30/2024 11:07 AM CDT) GLUCOSE POC 181(H) 74 - 99 mg/dL 12/30/2024 11:07 AM CDT [facility] SPECIMEN SOURCE, GLUCOSE POC Capillary 12/30/2024 11:07 AM CDT [facility] Blood, whole 12/30/2024 11:0 7 AM CDT 12/30/2024 11:18 AM CDT us Bharati Jarrell MD POINT OF CARE TESTING Final Resu lt Performing Organization Address [facility] de Phone Number [facility] CLIA # [id number] [address] [id number] * (ABNORMAL) POC GLUCOSE (12/30/2024 7:09 AM CDT) Pathologist [facility] GLUCOSE POC 125(H) 74 - 99 mg/dL 12/30/2024 7:09 AM CDT [facility] SPECIMEN SOURCE, GLUCOSE POC Capillary 12/30/2024 7:09 AM CDT [facility] Blood, whole 12/30/2024 7:09 AM CDT 12/30/2024 7:30 AM CDT us Bharati Jarrell MD POINT OF CARE TESTING Final Resu lt Performing Organization Address [facility] de Phone Number [facility] CLIA # [id number] [address] [address] * UNFRACTIONATED HEPARIN MONITORING (12/30/2024 5:22 AM CDT) [facility] ANTI-XA UNFRAC HEP 0.46 See Interpretation IU/mL 12/30/2024 5:48 AM CDT [facility] Blood Venipuncture / Unknown 12/30/2024 5:22 AM CDT 12/30/2024 5:33 AM CDT Narrative [facility] - 12/30/2024 5:48 AM CDT Therapeutic Range: PT/DVT Heparin Protocol 0.3 - 0.7 IU/ml Cardiac Heparin Protocol 0.3 - 0.6 IU/ml The reference range for this test is specific to the anticoagulant and is not appropriate for monitoring patients on a DOAC protocol. us Bharati Jarrell MD HEMATOLOGY ORDERABLES Final Resu lt Performing Organization Address [facility] Co de Phone Number [facility] CLIA # [id number] [address] [address] [place] [address] * (ABNORMAL) BASIC METABOLIC PANEL (12/30/2024 5:22 AM CDT) SODIUM 135(L) 136 - 145 mmol/L 12/30/2024 6:14 AM CDT [facility] POTASSIUM 4.5 3.5 - 5.1 mmol/L 12/30/2024 6:14 AM CDT [facility] CHLORIDE 98 98 - 107 mmol/L 12/30/2024 6:14 AM T [facility] CO2 25 22 - 29 mmol/L 12/30/2024 6:14 AM T [facility] CALCIUM 9.0 8.8 - 10.2 mg/dL 12/30/2024 6:14 AM T [facility] BUN 49(H) 8 - 23 mg/dL 12/30/2024 6:14 AM T [facility] CREATININE 5.55(H) 0.67 - 1.17 mg/dL 12/30/2024 6:14 AM T [facility] GLUCOSE 133(H) 74 - 99 mg/dL 12/30/2024 6:14 AM T [facility] GFR 11(L) >=60 mL/min/1. 73 sq meter 12/30/2024 6:14 AM T [facility] Comment:eGFR calculated with 2020 CKD-EPI equation. Vegetarian diet, extremely high or low muscle mass, and may affect results. Cystatin C with Glomerular Filtration Rate is a suitable alternative for these patients. ANION GAP 12 9 - 20 mmol/L 12/30/2024 6:14 AM T [facility] Blood Venipuncture / Unknown 12/30/2024 5:22 AM CDT 12/30/2024 5:32 AM CDT Luis Alfredo Harris MD CHEMISTRY ORDERABLES Final R esult [facility] CLIA # [id number] [facility] [address] [place] [address] * (ABNORMAL) CBC WITH DIFFERENTIAL (12/30/2024 5:22 AM CDT) [facility] WBC 5.0 4.8 - 10.8 K/uL 12/30/2024 5:40 AM CDT [facility] RBC 3.54(L) 4.60 - 6.20 M/uL 12/30/2024 5:40 AM CDT [facility] HEMOGLOBIN 10.2(L) 14.0 - 18.0 g/dL 12/30/2024 5:40 AM CDT [facility] HEMATOCRIT 31.0(L) 41.0 - 53.0 % 12/30/2024 5:40 AM CDT [facility] MCV 87.6 84.0 - 103.0 fL 12/30/2024 5:40 AM CDT [facility] MCH 28.8 27.0 - 34.0 pg 12/30/2024 5:40 AM CDT [facility] MCHC 32.9 30.0 - 35.0 g/dL 12/30/2024 5:40 AM CDT [facility] PLATELETS 203 140 - 440 K/uL 12/30/2024 5:40 AM CDT [facility] MPV 9.7 8.9 - 12.8 fL 12/30/2024 5:40 AM CDT [facility] RDW 14.9(H) 11.0 - 14.5 % 12/30/2024 5:40 AM CDT [facility] RDW-STDEV 48.1 37.0 - 54.0 fL 12/30/2024 5:40 AM CDT [facility] NEUTROPHILS 43 42 - 75 % 12/30/2024 5:40 AM CDT [facility] LYMPHOCYTES 46(H) 24 - 44 % 12/30/2024 5:40 AM CDT [facility] MONOCYTES 9 2 - 10 % 12/30/2024 5:40 AM CDT [facility] EOSINOPHILS 1 0 - 7 % 12/30/2024 5:40 AM CDT [facility] BASOPHILS 1 0 - 1 % 12/30/2024 5:40 AM CDT [facility] IMMATURE GRANULOCYTES 0 0 - 2 % 12/30/2024 5:40 AM CDT [facility] NEUTROPHIL ABSOLUTE 2.16 2.00 - 8.00 K/uL 12/30/2024 5:40 AM CDT [facility] LYMPHOCYTE ABSOLUTE 2.29 1.20 - 4.00 K/uL 12/30/2024 5:40 AM CDT [facility] MONOCYTE ABSOLUTE 0.43 0.10 - 0.60 K/uL 12/30/2024 5:40 AM CDT [facility] EOSINOPHIL ABSOLUTE 0.06 0.00 - 0.70 K/uL 12/30/2024 5:40 AM CDT [facility] BASOPHILS ABSOLUTE 0.06 0.00 - 0.20 K/uL 12/30/2024 5:40 AM CDT [facility] IMMATURE GRANULOCYTES ABSOLUTE 0.01 0.00 - 0.10 K/uL 12/30/2024 5:40 AM CDT [facility] SMEAR REVIEWED: NA - Not Applicable 12/30/2024 5:40 AM T [facility] Blood Venipuncture / Unknown 12/30/2024 5:22 AM CDT 12/30/2024 5:33 AM CDT us Luis Alfredo Harris MD HEMATOLOGY ORDERABLES Final Result [facility] CLIA # [id number] [address] [address] * (ABNORMAL) POC GLUCOSE (12/30/2024 1:55 AM CDT) GLUCOSE POC 149(H) 74 - 99 mg/dL 12/30/2024 1:55 AM CDT [facility] SPECIMEN SOURCE, GLUCOSE POC Capillary 12/30/2024 1:55 AM CDT [facility] Blood, whole 12/30/2024 1:55 AM CDT 12/30/2024 2:15 AM CDT Bharati Jarrell MD POINT OF CARE TESTING Final Resu lt Performing Organization Address [facility]/ZIP Co de Phone Number [facility] CLIA # [id number] [address] [address] * (ABNORMAL) POC GLUCOSE (12/29/2024 8:53 PM CDT) GLUCOSE POC 179(H) 74 - 99 mg/dL 12/29/2024 8:53 PM CDT [facility] SPECIMEN SOURCE, GLUCOSE POC Capillary 12/29/2024 8:53 PM CDT [facility] Blood, whole 12/29/2024 8:53 PM CDT 12/29/2024 9:19 PM CDT us Bharati Jarrell MD POINT OF CARE TESTING Final Resu lt Performing Organization Address [facility]/ZIP Co de Phone Number [facility] CLIA # [id number] [address] [address] * (ABNORMAL) POC GLUCOSE (12/29/2024 4:49 PM CDT) GLUCOSE POC 121(H) 74 - 99 mg/dL 12/29/2024 4:49 PM CDT [facility] SPECIMEN SOURCE, GLUCOSE POC Capillary 12/29/2024 4:49 PM CDT [facility] Blood, whole 12/29/2024 4:49 PM CDT 12/29/2024 5:20 PM CDT us Bharati Jarrell MD POINT OF CARE TESTING Final Resu lt Performing Organization Address [facility] Co de Phone Number [facility] CLIA # [id number] [address] [address] [place] [address] * (ABNORMAL) POC GLUCOSE (12/29/2024 11:27 AM CDT) GLUCOSE POC 314(H) 74 - 99 mg/dL 12/29/2024 11:27 AM CDT [facility] SPECIMEN SOURCE, GLUCOSE POC Capillary 12/29/2024 11:27 AM CDT [facility] Blood, whole 12/29/2024 11:2 7 AM CDT 12/29/2024 12:21 PM CDT us Bharati Jarrell MD POINT OF CARE TESTING Final Resu lt Performing Organization Address [facility]/ZIP Co de Phone Number [facility] CLIA # [id number] [address] [address] * UNFRACTIONATED HEPARIN MONITORING (12/29/2024 10:35 AM CDT) ANTI-XA UNFRAC HEP 0.43 See Interpretation IU/mL 12/29/2024 11:22 AM CDT [facility] Blood Venipuncture / Unknown 12/29/2024 10:35 AM CDT 12/29/2024 11:04 AM CDT Narrative [facility] - 12/29/2024 11:22 AM CDT Therapeutic Range: PT/DVT Heparin Protocol 0.3 - 0.7 IU/ml Cardiac Heparin Protocol 0.3 - 0.6 IU/ml The reference range for this test is specific to the anticoagulant and is not appropriate for monitoring patients on a DOAC protocol. Bharati Jarrell MD HEMATOLOGY ORDERABLES Final Resu lt Performing Organization Address [facility] Co de Phone Number [facility] CLIA # [id number] [address] [address] * (ABNORMAL) POC GLUCOSE (12/29/2024 7:39 AM CDT) Pathologist [facility] GLUCOSE POC 147(H) 74 - 99 mg/dL 12/29/2024 7:39 AM CDT [facility] SPECIMEN SOURCE, GLUCOSE POC Capillary 12/29/2024 7:39 AM CDT [facility] Blood, whole 12/29/2024 7:39 AM CDT 12/29/2024 7:48 AM CDT Bharati Jarrell MD POINT OF CARE TESTING Final Resu lt Performing Organization Address [facility] de Phone Number [facility] CLIA # [id number] [address] [address] * UNFRACTIONATED HEPARIN MONITORING (12/29/2024 4:37 AM CDT) Pathologist [facility] ANTI-XA UNFRAC HEP 0.37 See Interpretation IU/mL 12/29/2024 4:52 AM CDT [facility] Blood Venipuncture / Unknown 12/29/2024 4:37 AM CDT 12/29/2024 4:40 AM CDT Narrative [facility] - 12/29/2024 4:52 AM CDT Therapeutic Range: PT/DVT Heparin Protocol 0.3 - 0.7 IU/ml Cardiac Heparin Protocol 0.3 - 0.6 IU/ml The reference range for this test is specific to the anticoagulant and is not appropriate for monitoring patients on a DOAC protocol. us Bharati Jarrell MD HEMATOLOGY ORDERABLES Final Resu lt [facility] KENIA # [id number] [address] [address] [place] [address] * (ABNORMAL) BASIC METABOLIC PANEL (12/29/2024 4:37 AM CDT) SODIUM 136 136 - 145 mmol/L 12/29/2024 5:17 AM T [facility] POTASSIUM 4.3 3.5 - 5.1 mmol/L 12/29/2024 5:17 AM T [facility] CHLORIDE 100 98 - 107 mmol/L 12/29/2024 5:17 AM T [facility] CO2 27 22 - 29 mmol/L 12/29/2024 5:17 AM [facility] CALCIUM 8.6(L) 8.8 - 10.2 mg/dL 12/29/2024 5:17 AM T [facility] BUN 31(H) 8 - 23 mg/dL 12/29/2024 5:17 AM T [facility] CREATININE 4.24(H) 0.67 - 1.17 mg/dL 12/29/2024 5:17 AM [facility] GLUCOSE 169(H) 74 - 99 mg/dL 12/29/2024 5:17 AM [facility] GFR 15(L) >=60 mL/min/1. 73 sq meter 12/29/2024 5:17 AM [facility] Comment:eGFR calculated with 2020 CKD-EPI equation. Vegetarian diet, extremely high or low muscle mass, and may affect results. Cystatin C with Glomerular Filtration Rate is a suitable alternative for these patients. ANION GAP 9 9 - 20 mmol/L 12/29/2024 5:17 AM [facility] Blood Venipuncture / Unknown 12/29/2024 4:37 AM CDT 12/29/2024 4:42 AM CDT us Luis Alfredo Harris MD CHEMISTRY ORDERABLES Final R esult [facility] CLIA # [id number] [address] [address] [place] [address] * (ABNORMAL) CBC WITH DIFFERENTIAL (12/29/2024 4:37 AM CDT) Pathologist [facility] WBC 4.4(L) 4.8 - 10.8 K/uL 12/29/2024 4:45 AM CDT [facility] RBC 3.61(L) 4.60 - 6.20 M/uL 12/29/2024 4:45 AM CDT [facility] HEMOGLOBIN 10.4(L) 14.0 - 18.0 g/dL 12/29/2024 4:45 AM CDT [facility] HEMATOCRIT 31.5(L) 41.0 - 53.0 % 12/29/2024 4:45 AM CDT [facility] MCV 87.3 84.0 - 103.0 fL 12/29/2024 4:45 AM CDT [facility] MCH 28.8 27.0 - 34.0 pg 12/29/2024 4:45 AM CDT [facility] MCHC 33.0 30.0 - 35.0 g/dL 12/29/2024 4:45 AM CDT [facility] PLATELETS 183 140 - 440 K/uL 12/29/2024 4:45 AM CDT [facility] MPV 9.0 8.9 - 12.8 fL 12/29/2024 4:45 AM CDT [facility] RDW 15.2(H) 11.0 - 14.5 % 12/29/2024 4:45 AM CDT [facility] RDW-STDEV 48.7 37.0 - 54.0 fL 12/29/2024 4:45 AM CDT [facility] NEUTROPHILS 40(L) 42 - 75 % 12/29/2024 4:45 AM CDT [facility] LYMPHOCYTES 47(H) 24 - 44 % 12/29/2024 4:45 AM CDT [facility] MONOCYTES 11(H) 2 - 10 % 12/29/2024 4:45 AM CDT [facility] EOSINOPHILS 1 0 - 7 % 12/29/2024 4:45 AM CDT [facility] BASOPHILS 1 0 - 1 % 12/29/2024 4:45 AM CDT [facility] IMMATURE GRANULOCYTES 0 0 - 2 % 12/29/2024 4:45 AM CDT [facility] NEUTROPHIL ABSOLUTE 1.77(L) 2.00 - 8.00 K/uL 12/29/2024 4:45 AM CDT [facility] LYMPHOCYTE ABSOLUTE 2.06 1.20 - 4.00 K/uL 12/29/2024 4:45 AM CDT [facility] MONOCYTE ABSOLUTE 0.46 0.10 - 0.60 K/uL 12/29/2024 4:45 AM CDT [facility] EOSINOPHIL ABSOLUTE 0.04 0.00 - 0.70 K/uL 12/29/2024 4:45 AM CDT [facility] BASOPHILS ABSOLUTE 0.06 0.00 - 0.20 K/uL 12/29/2024 4:45 AM CDT [facility] IMMATURE GRANULOCYTES ABSOLUTE 0.00 0.00 - 0.10 K/uL 12/29/2024 4:45 AM CDT [facility] SMEAR REVIEWED: NA - Not Applicable 12/29/2024 4:45 AM T [facility] Blood Venipuncture / Unknown 12/29/2024 4:37 AM CDT 12/29/2024 4:40 AM CDT us Luis Alfredo Harris MD HEMATOLOGY ORDERABLES Final Result [facility] CLIA # [id number] [address] [address] [place] [address] * UNFRACTIONATED HEPARIN MONITORING (12/28/2024 10:12 PM CDT) [facility] ANTI-XA UNFRAC HEP 0.23 See Interpretation IU/mL 12/28/2024 10:47 PM CDT [facility] Blood Venipuncture / Unknown 12/28/2024 10:12 PM CDT 12/28/2024 10:33 PM CDT Narrative [facility] - 12/28/2024 10:47 PM CDT Therapeutic Range: PT/DVT Heparin Protocol 0.3 - 0.7 IU/ml Cardiac Heparin Protocol 0.3 - 0.6 IU/ml The reference range for this test is specific to the anticoagulant and is not appropriate for monitoring patients on a DOAC protocol. us Bharati Jarrell MD HEMATOLOGY ORDERABLES Final Resu lt Performing Organization Address City/[facility]/ZIP Co de Phone Number [facility] CLIA # [id number] [address] [address] * (ABNORMAL) POC GLUCOSE (12/28/2024 8:32 PM CDT) [facility] GLUCOSE POC 200(H) 74 - 99 mg/dL 12/28/2024 8:32 PM CDT [facility] SPECIMEN SOURCE, GLUCOSE POC Capillary 12/28/2024 8:32 PM CDT [facility] Blood, whole 12/28/2024 8:32 PM CDT 12/29/2024 12:30 AM CDT us Bharati Jarrell MD POINT OF CARE TESTING Final Resu lt Performing Organization Address City/[facility]/ZIP Co de Phone Number [facility] CLIA # [id number] [id number] [place] [address] * (ABNORMAL) POC GLUCOSE (12/28/2024 4:56 PM CDT) [facility] GLUCOSE POC 287(H) 74 - 99 mg/dL 12/28/2024 4:56 PM CDT [facility] SPECIMEN SOURCE, GLUCOSE POC Capillary 12/28/2024 4:56 PM CDT [facility] Blood, whole 12/28/2024 4:56 PM CDT 12/28/2024 5:27 PM CDT us Bharati Jarrell MD POINT OF CARE TESTING Final Resu lt Performing Organization Address [facility]/ZIP Co de Phone Number [facility] CLIA # [id number] [address] [id number] * UNFRACTIONATED HEPARIN MONITORING (12/28/2024 3:14 PM CDT) [facility] ANTI-XA UNFRAC HEP 0.18 See Interpretation IU/mL 12/28/2024 3:33 PM CDT [facility] Blood Venipuncture / Unknown 12/28/2024 3:14 PM CDT 12/28/2024 3:21 PM CDT Narrative [facility] - 12/28/2024 3:33 PM CDT Therapeutic Range: PT/DVT Heparin Protocol 0.3 - 0.7 IU/ml Cardiac Heparin Protocol 0.3 - 0.6 IU/ml The reference range for this test is specific to the anticoagulant and is not appropriate for monitoring patients on a DOAC protocol. us Luis Alfredo Harris MD HEMATOLOGY ORDERABLES Final Result Performing Organization Address [facility]/ZIP Co de Phone Number [facility] CLIA # [id number] [address] [id number] * ECHO COMPLETE - CONTRAST AND STRAIN IF INDICATED (12/28/2024 3:06 PM CDT) EJECTION FRACTION 50 INTERFACE SYSTEM 12/28/2024 2:30 PM CDT Narrative INTERFACE SYSTEM - 12/28/2024 4:43 PM CDT [facility] Cardiovascular Services Echocardiography Laboratory [facility] [place] [address] Transthoracic Echocardiography Patient: Ida Morelos Study ID: ECHO COMPLETE - Gene Gender: M : 1960 Age: 64 Room: [facility] Study 12/28/2024 Pt Inpatient Date: Status: Study 02:30:44 PM [facility] #: [id number] Time: Ordering:Nabil Blue Negative Developer: Marcy Sauceda Indications and History: OK/ACS; Initial evaluation post OK. Summary and Conclusion: - Left ventricle: The [...] (H) nir values outside specified reference range. [facility] Echo Labs are accredited with the Intersocietal Accreditation Commission - Echocardiography. Prepared and Electronically Authenticated Nabil Blue Confirmed 12/28/2024 16:43 Procedure Note Nabil Blue MD - 12/28/2024 [facility] Cardiovascular Services Echocardiography Laboratory [address] [place] [address] Transthoracic Echocardiography Patient: Ida Morelos Study ID: ECHOCOMPLETE - Gene Gender: Celia : 1960 Age: 64 Room: [facility] Study 12/28/2024 Pt Inpatient Date: Status: Study 02:30:44 PM [facility] #: [id number] Time: Ordering:Nabil Blue Negative Developer: Marcy Sauceda Indications and History: OK/ACS; Initial evaluation post OK. Summary and Conclusion: - Left ventricle: The [...] (H) nir values outside specified reference range. [facility] Echo Labs are accredited with theFlagstaff Medical Centersocietal Accreditation Commission - Echocardiography. Prepared and Electronically Authenticated Nabil Blue 12/28/2024 16:43 Nabil Blue MD US ORDERABLES Jen jackson Result Performing Organization Address City/[facility]/ZIP Co de Phone Number INTERFACE SYSTEM Refer to clinic/hospital department * (ABNORMAL) POC GLUCOSE (12/28/2024 11:53 AM CDT) [facility] GLUCOSE POC 133(H) 74 - 99 mg/dL 12/28/2024 11:53 AM CDT [facility] SPECIMEN SOURCE, GLUCOSE POC Capillary 12/28/2024 11:53 AM T [facility] Blood, whole 12/28/2024 11:5 3 AM CDT 12/28/2024 12:01 PM CDT Luis Alfredo Harris MD POINT OF CARE TESTING Final Result Performing Organization Address [facility]/ZIP Co de Phone Number [facility] CLIA # [id number] [address] [address] [place] [employer], [place] [id number] * UNFRACTIONATED HEPARIN MONITORING (12/28/2024 8:16 AM CDT) [facility] ANTI-XA UNFRAC HEP 0.11 See Interpretation IU/mL 12/28/2024 8:40 AM CDT [facility] Blood Venipuncture / Unknown 12/28/2024 8:16 AM CDT 12/28/2024 8:21 AM CDT Narrative [facility] - 12/28/2024 8:40 AM CDT Therapeutic Range: PT/DVT Heparin Protocol 0.3 - 0.7 IU/ml Cardiac Heparin Protocol 0.3 - 0.6 IU/ml The reference range for this test is specific to the anticoagulant and is not appropriate for monitoring patients on a DOAC protocol. Bharati Jarrell MD HEMATOLOGY ORDERABLES Final Resu lt [facility] # [id number] [address] [place] [address] [place] [address] * XR CHEST PA OR AP 1 [...] tip in the low SVC. Remainder unremarkable. us Luis Alfredo Harris MD DIAGNOSTIC IMAGING ORDERABLE S Final Result * (ABNORMAL) TROPONIN 6 HR, 5TH GEN (12/28/2024 1:59 AM CDT) TROPONIN T, 6 HR 5TH GEN 153(HH) <=15 ng/L 12/28/2024 2:42 AM CDT [facility] Blood Venipuncture / Unknown 12/28/2024 1:59 AM CDT 12/28/2024 2:[address] [facility] - 12/28/2024 2:42 AM CDT Troponin elevated. Unable to calculate delta. 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 : 1960 Requested By: Order Number: [id number] Reading MD: Joshua Crowder Measurements Intervals Leopold Rate: 75 P: 32 NC: 174 QRS: -53 QRSD: 124 T: 79 QT: 416 QTc: 464 Interpretive Statements Normal sinus rhythm Left axis deviation Septal infarct, age undetermined Abnormal ECG Electronically Signed On 12-28-2024 5:46:12 CDT by Joshua Crowder Procedure Note Joshua Crowder MD - 12/28/[address] [address] Test Date: 2024-12-28 Pat Name: IDA MORELOS Department: 11 Room: 02 02 Gender: Male 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 [employer] [facility] TRIGLYCERIDE 120 <150 mg/dL 12/28/2024 6:[address] [facility] [employer] [facility] HDL 32(L) 40 - 59 mg/dL 12/28/2024 6:02 AM CDT [facility] LDL CALCULATED 66 <100 mg/dL 12/28/2024 6:02 AM T [facility] NON-HDL CHOLESTEROL 90 <130 mg/dL 12/28/2024 6:02 AM T [facility] Blood Venipuncture / Unknown 12/28/2024 1:09 AM CDT 12/28/2024 1:23 AM CDT [facility] - 12/28/2024 6:02 AM CDT TOTAL CHOLESTEROL [...] ORDERABLES Final R esult Performing Organization Address [facility] Co de Phone Number [facility] [employer] [facility] CLIA # [id number] [address] [place] [id number] * TSH (12/28/2024 1:09 AM CDT) [facility] TSH 3.23 0.27 - 4.20 uIU/mL 12/28/2024 5:59 AM CDT [facility] Blood Venipuncture / Unknown 12/28/2024 1:09 AM CDT 12/28/2024 1:23 AM CDT Luis Alfredo Harris MD CHEMISTRY ORDERABLES Final R esult Performing Organization Address [facility] de Phone Number [facility] [employer] [facility] CLIA # [id number] [address] [place] [address] * UNFRACTIONATED HEPARIN MONITORING (12/28/2024 1:09 AM CDT) [facility] ANTI-XA UNFRAC HEP <0.10 See Interpretation IU/mL 12/28/2024 1:42 AM CDT [facility] Blood Venipuncture / Unknown 12/28/2024 1:09 AM CDT 12/28/2024 1:[address] [facility] [employer] [facility] - 12/28/2024 1:42 AM CDT Therapeutic Range: PT/DVT Heparin Protocol 0.3 - 0.7 IU/ml Cardiac Heparin Protocol 0.3 - 0.6 IU/ml The reference range for this test is specific to the anticoagulant and is not appropriate for monitoring patients on a DOAC protocol. us Richard Esparza MD HEMATOLOGY ORDERABLES Jen jackson Result [facility] CLIA # [id number] [facility] [address] * (ABNORMAL) BASIC METABOLIC PANEL (12/28/2024 1:09 AM CDT) SODIUM 140 136 - 145 mmol/L 12/28/2024 1:54 AM CDT [facility] POTASSIUM 3.9 3.5 - 5.1 mmol/L 12/28/2024 1:54 AM [facility] CHLORIDE 101 98 - 107 mmol/L 12/28/2024 1:54 AM T [facility] CO2 26 22 - 29 mmol/L 12/28/2024 1:54 AM [facility] CALCIUM 8.7(L) 8.8 - 10.2 mg/dL 12/28/2024 1:54 AM T [facility] BUN 40(H) 8 - 23 mg/dL 12/28/2024 1:54 AM [facility] CREATININE 4.42(H) 0.67 - 1.17 mg/dL 12/28/2024 1:54 AM [facility] GLUCOSE 208(H) 74 - 99 mg/dL 12/28/2024 1:54 AM [facility] GFR 14(L) >=60 mL/min/1. 73 sq meter 12/28/2024 1:54 AM [facility] Comment:eGFR calculated with 2020 CKD-EPI equation. Vegetarian diet, extremely high or low muscle mass, and may affect results. Cystatin C with Glomerular Filtration Rate is a suitable alternative for these patients. ANION GAP 13 9 - 20 mmol/L 12/28/2024 1:54 AM [facility] Blood Venipuncture / Unknown 12/28/2024 1:09 AM CDT 12/28/2024 1:23 AM CDT Richard Esparza MD CHEMISTRY ORDERABLES Final Result Performing Organization Address [facility] de Phone Number [facility] CLIA # [id number] [address] [facility] [place] [address] * (ABNORMAL) PTT (12/28/2024 1:09 AM CDT) PTT 44.8(H) 24.8 - 37.2 seconds 12/28/2024 1:42 AM CDT [facility] Blood Venipuncture / Unknown 12/28/2024 1:09 AM CDT 12/28/2024 1:23 AM CDT Narrative [facility] - 12/28/2024 1:42 AM CDT Therapeutic Range: Hi-level PE/DVT heparin protocol 80.1 - 95.0 sec Lo-level PE/DVT heparin protocol 70.1 - 85.0 sec Cardiac Heparin Protocol 70.1 - 100.0 sec Richard Esparza MD HEMATOLOGY ORDERABLES Jen l Result Performing Organization Address [facility] Co de Phone Number [facility] CLIA # [id number] [id number] [place] [address] * PROTIME-INR (12/28/2024 1:09 AM CDT) PROTIME 14.4 12.7 - 14.9 Seconds 12/28/2024 1:42 AM CDT [facility] INR 1.1 0.8 - 1.2 12/28/2024 1:42 AM CDT [facility] Blood Venipuncture / Unknown 12/28/2024 1:09 AM CDT 12/28/2024 1:23 AM CDT [facility] - 12/28/2024 1:42 AM CDT Expected Values for INR: DVT/PE Goal INR 2.5; range 2.0 - 3.0 Valve Replacement Tissue Goal INR 2.5; range 2.0 - 3.0 Valve Replacement Mechanical Goal INR 3.0; range 2.5 - 3.5 POST-OK Goal INR 2.5; range 2.0 - 3.0 or Goal INR 3.0; range 2.5 - 3.5 Atrial Fibrillation Goal INR 2.5; range 2.0 - 3.0 Ischemic Stroke Goal INR 2.5; range 2.0 - 3.0 us Richard Esparza MD HEMATOLOGY ORDERABLES Jen jackson Result [facility] CLIA # [id number] [address] [place] [address] * (ABNORMAL) CBC WITH DIFFERENTIAL (12/28/2024 1:09 AM CDT) Pathologist [facility] WBC 4.1(L) 4.8 - 10.8 K/uL 12/28/2024 1:[facility] RBC 3.45(L) 4.60 - 6.20 M/uL 12/28/2024 1:30 AM T [facility] HEMOGLOBIN 9.9(L) 14.0 - 18.0 g/dL 12/28/2024 1:30 AM CDT [facility] HEMATOCRIT 29.7(L) 41.0 - 53.0 % 12/28/2024 1:30 AM CDT [facility] MCV 86.1 84.0 - 103.0 fL 12/28/2024 1:30 AM CDT [facility] MCH 28.7 27.0 - 34.0 pg 12/28/2024 1:30 AM T [facility] MCHC 33.3 30.0 - 35.0 g/dL 12/28/2024 1:[address] [facility] [employer] [facility] PLATELETS 202 140 - 440 K/uL 12/28/2024 1:30 AM [facility] [employer] [facility] MPV 9.2 8.9 - 12.8 fL 12/28/2024 1:30 AM [facility] RDW 15.4(H) 11.0 - 14.5 % 12/28/2024 1:30 AM [facility] RDW-STDEV 47.8 37.0 - 54.0 fL 12/28/2024 1:30 AM [facility] NEUTROPHILS 42 42 - 75 % 12/28/2024 1:30 AM [facility] LYMPHOCYTES 46(H) 24 - 44 % 12/28/2024 1:30 AM [facility] MONOCYTES 11(H) 2 - 10 % 12/28/2024 1:30 AM [facility] [employer] [facility] EOSINOPHILS 1 0 - 7 % 12/28/2024 1:30 AM [facility] BASOPHILS 1 0 - 1 % 12/28/2024 1:30 AM [facility] IMMATURE GRANULOCYTES 0 0 - 2 % 12/28/2024 1:30 AM [facility] NEUTROPHIL ABSOLUTE 1.72(L) 2.00 - 8.00 K/uL 12/28/2024 1:30 AM [facility] LYMPHOCYTE ABSOLUTE 1.88 1.20 - 4.00 K/uL 12/28/2024 1:30 AM [facility] MONOCYTE ABSOLUTE 0.45 0.10 - 0.60 K/uL 12/28/2024 1:30 AM [facility] EOSINOPHIL ABSOLUTE 0.03 0.00 - 0.70 K/uL 12/28/2024 1:30 AM [facility] BASOPHILS ABSOLUTE 0.04 0.00 - 0.20 K/uL 12/28/2024 1:30 AM [facility] IMMATURE GRANULOCYTES ABSOLUTE 0.01 0.00 - 0.10 K/uL 12/28/2024 1:30 AM [facility] SMEAR REVIEWED: NA - Not Applicable 12/28/2024 1:[address] [facility] [employer] [facility] Blood Venipuncture / Unknown 12/28/2024 1:09 AM CDT 12/28/2024 1:23 AM CDT Richard Esparza MD HEMATOLOGY ORDERABLES Jen l Result [facility] [employer] [facility] CLIA # [id number] [address] [address] [place] [address] documented in this encounter Visit Diagnoses Diagnosis NSTEMI (non-ST elevated myocardial infarction) ([facility])- Primary Acute myocardial infarction, subendocardial infarction, episode of care unspecified Acute chest pain Chest pain, unspecified ESRD (end stage renal disease) on dialysis ([facility]) End stage renal disease Elevated troponin Other abnormal blood chemistry Normocytic anemia Anemia, unspecified Leukopenia, unspecified type Atherosclerosis of [place] coronary artery of [place] heart without angina pectoris NSTEMI (non-ST elevated myocardial infarction) ([facility]) Acute myocardial infarction, subendocardial infarction, episode of care unspecified End stage renal disease ([facility]) End stage renal disease S/P PTCA (percutaneous transluminal coronary angioplasty) Postsurgical percutaneous transluminal coronary angioplasty status Type 2 diabetes mellitus with hyperglycemia ([facility]) Type II or unspecified type diabetes mellitus without mention of complication, not stated as uncontrolled Chronic combined systolic and diastolic CHF (congestive heart failure) ([facility]) Diabetic polyneuropathy associated with type 2 diabetes mellitus ([facility]) ESRD on hemodialysis ([facility]) End stage renal disease Essential hypertension Unspecified essential hypertension GERD (gastroesophageal reflux disease) Esophageal reflux History of coronary artery stent placement History of stroke without residual deficits Transient ischemic attack (TIA), and cerebral infarction without residual deficits Mixed hyperlipidemia Chronic anemia Anemia, unspecified ESRD (end stage renal disease) on dialysis ([facility]) End stage renal disease Ischemic dilated cardiomyopathy ([facility]) Other specified forms of chronic ischemic heart disease Acute chest pain Chest pain, unspecified Elevated troponin Other abnormal blood chemistry NSTEMI (non-ST elevated myocardial infarction) ([facility]) Acute myocardial infarction, subendocardial infarction, episode of care unspecified End stage renal disease ([facility]) End stage renal disease documented in this [...] 12/30/2024 9:12 AM CDT 10 mg aspirin (SHILA) tablet ONE TIME PRN, Starting on Tue12/31/24 at 1506, Until Tue12/31/24 at 1515, Routine, Intra-Procedure (Invasive Cardiology) Given 12/31/2024 3:06 PM CDT 325 mg aspirin (ECOTRIN EC) tablet 81 mg [...] Given 12/29/2024 9:03 AM CDT 75 mg clopidogreL (PLAVIX) tablet ONE TIME PRN, Starting on Tue12/31/24 at 1506, Until Tue12/31/24 at 1515, Routine, Intra-Procedure (Invasive Cardiology) Given 12/31/2024 3:06 PM CDT 600 mg dextrose 5 % - sodium chloride [...] at 0535, Until Tue01/01/25 at 1844, Routine fentaNYL PF (SUBLIMAZE) 50 mcg/mL injection ONE TIME PRN, Starting on Tue12/31/24 at 1436, Until Tue12/31/24 at 1515, Routine, Intra-Procedure (Invasive Cardiology) Given 12/31/2024 2:41 PM CDT 25 mcg Given 12/31/2024 2:36 PM CDT 50 mcg gabapentin (NEURONTIN) capsule 200 mg 200 mg, [...] at 0535, Until Tue01/01/25 at 1844, Routine heparin in 0.45% NaCl 25,000 unit/250 [...] AM CDT 17 Units/kg/hr 17 mL/h r heparin injection ONE TIME PRN, Starting on Tue12/31/24 at 1443, Until Tue12/31/24 at 1515, Routine, Intra-Procedure (Invasive Cardiology) Given 12/31/2024 2:51 PM CDT 2,000 Units Given 12/31/2024 2:43 PM CDT 5,000 Units hydrALAZINE (APRESOLINE) tablet 100 mg 100 mg, [...] on Tue12/28/24 at 2100, Until Discontinued, Routine iopamidoL (ISOVUE-300) 61% injection (drawn from multi-use bulk pack) ONE TIME PRN, Starting on Tue12/31/24 at 1507, Until Tue12/31/24 at 1515, Routine, Intra-Procedure (Invasive Cardiology) Given 12/31/2024 3:07 PM CDT 65 mL isosorbide mononitrate (IMDUR) SR 24 hour tablet 30 mg 30 mg, Oral, DAILY, First dose on Tue01/01/25 at 0900, Until Discontinued, Routine Given 01/01/2025 9:10 AM CDT 30 mg lidocaine 1 % (XYLOCAINE) injection ONE TIME PRN, Starting on Tue12/31/24 at 1436, Until Tue12/31/24 at 1515, Routine, Intra-Procedure (Invasive Cardiology) Given 12/31/2024 2:36 PM CDT 5 mL metoprolol tartrate (LOPRESSOR) tablet 50 mg 50 mg, Oral, TWO TIMES DAILY, First dose on Tue12/28/24 at 0900, Until Discontinued, Routine, Previous Med: metoprolol tartrate (LOPRESSOR) 50 mg tablet - Orig Sig - Take 50 mg by mouth 2 times daily. Given 01/01/2025 9:10 AM CDT 50 mg Given 12/31/2024 8:25 PM CDT 50 mg Given 12/31/2024 3:55 PM CDT 50 mg midazolam (VERSED) injection ONE TIME PRN, Starting on Tue12/31/24 at 1436, Until Tue12/31/24 at 1515, Routine, Intra-Procedure (Invasive Cardiology) Given 12/31/2024 2:36 PM CDT 2 mg naloxone (NARCAN) 0.4 mg/mL injection 0.1-0.4 [...] Given 12/30/2024 5:38 AM CDT 160 mg verapamiL (ISOPTIN) 2.5 mg, nitroglycerin in 5 % dextrose (TRIDIL) 200 mcg, sodium chloride 0.9% 3 mL SOLUTION ONE TIME PRN, Starting on Tue12/31/24 at 1442, Until Tue12/31/24 at 1515, Routine, Intra-Procedure (Invasive Cardiology) Given 12/31/2024 2:42 PM CDT 5 mL documented in this encounter Active and Recently Administered Medications Times are shown in CDT. Scheduled Medication Order 12/30/2024 12/31/2024 01/01/2025 amLODIPine (NORVASC) tablet 10 mg 10 mg, Oral, DAILY, First dose on Tue12/28/24 at 0900, Until Discontinued, Routine, Previous Med: amLODIPine (NORVASC) 5 mg tablet - Orig Sig - Take 10 mg by mouth daily. 911 (Given - Provider: Cristal Phillips RN) 155 (Given - Provider: Miranda Vaca RN) 909 (Given - Provider: Vangie Malhotra RN) aspirin (ECOTRIN EC) tablet 81 mg 81 mg, Oral, DAILY, First dose on Tue12/29/24 at 0900, Until Discontinued, Routine, Previous Med: aspirin (ECOTRIN EC) 81 mg Tablet, Delayed Release (E.C.) - Orig Sig - Take 81 mg by mouth daily. 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 911 (Given - Provider: Cristal Phillips RN)2045 (Given - Provider: Jacqueline Edwards LPN) 1555 (Given - Provider: Miranda Vaca RN)2024 (Given - Provider: Grace Farnsworth RN) 0910 (Given - Provider: Vangie Malhotra RN) morphine 4 mg/mL injection 4 mg (COMPLETED) 4 mg, IV, ONE TIME ONLY, 1 dose, On Tue12/31/24 at 2044, Routine 2109 (Given - Provider: Grace Farnsworth RN) naloxone [...] Jacqueline Edwards LPN)1136 (Removed - Provider: Cristal Phillips, TRACI)1138 (Applied - Provider: Cristal Phillips, RN)1729 (Applied - Provider: Cristal Phillips, RN)2329 (Removed - Provider: Jacqueline Edwards, CHARACTER ARTIST)2358 (Applied - Provider: Jacqueline Edwards, CHARACTER ARTIST) 0510 (Applied - Provider: Jacqueline Edwards, CHARACTER ARTIST)1110 (Removed - Provider: Miranda Vaca RN)1200 (Not Given - Provider: Miranda Vaca RN - Reason: Patient off unit)1730 (Refused - Provider: Miranda Vaca RN) 0000 (Refused - Provider: Grace Farnsworth RN)0600 (Refused - Provider: Grace Farnsworth RN)1200 (Refused - Provider: Vangie Malhotra RN) sodium chloride 0.9 % flush bag [...] 0900 (Canceled Entry - Provider: Cristal Phillips RN)2046 (Given - Provider: Jacqueline Edwards LPN) 1557 (Given - Provider: Miranda Vaca RN)2026 (Given - Provider: Grace Farnsworth RN) 0913 (Given - Provider: Vangie Malhotra RN) sodium chloride [...] Edwards LPN) 0544 (Given - Provider: Grace Farnsworth RN) Continuous Medication Order 12/30/2024 12/31/2024 01/01/2025 heparin in 0.45% NaCl 25,000 unit/250 mL infusion 17 Units/kg/hr 99.9 kg (16.983 mL/hr, rounded to 17 mL/hr), IV, TITRATE, Starting on Tue12/28/24 at 0100, Until Tue01/01/25 at 1844, Indication: ACS/STEMI, Dosing by: PER PROTOCOL: Delegate to facility protocol per indication, Re-bolus within Protocol? No, titrate infusion ONLY 0243 (Bag Switched - Provider: Jacqueline Edwards LPN)1022 (New Bag - Provider: Cristal Phillips, TRACI) 1027 (New Bag - Provider: Mahamed Triana [...] Provider: Cristal Phillips RN - Comment: SEAN 10/04)1632 (Given - Provider: Cristal Phillips RN [...]
--- OUTSIDE RECORDS SUMMARY | 2025-01-01 13:30 | XMS_ITS | Encounter Summary ---
Author Organization [facility] Address [address] [place] [address] Care Team Providers Care Key Worker Name Role Phone Unavailable Primary Care Provider Unavailabl e Reason for Visit * Reason Comments Chest Pain * Auth/Cert (Routine) Specialty Diagnoses / Procedures Referred By Contac t Referred To Contact Emergency Medicine Diagnoses NSTEMI [facility] Emergency Department [address] [place] [address] Phone: tel: fax: Referral ID Status Reason Start Date Expiration Date Visits Re quested Visits Authorized [id number] 1 1 Encounter Details Date Type Department Care Team (Late st Contact Info) Description 01/01/2025 1:30 PM CDT - 01/01/2025 2:40 PM CDT Surgery [facility] Cardiac Electrical Sign Wirer [address] [place] [address] Davion Mcconnell MD [address] [place] [address] Fistulogram Surgery Details Date/Time Status Location OR Service Patient Class Case Class Case Type Trauma Case? 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 Cardiopulmonary Rehab Facility: [address] [place] [address] MEDICAL DISCHARGE RECORD DIET: regular and Diabetic [...] call or the Health Information Team at [phone] or [phone]. FOLLOW-UP APPOINTMENT: Follow up with cardiology- they should call you.follow up with dialysis * Attachments The following attachments cannot be sent through Care Everywhere. * Cardiac Rehabilitation ([place]) * Low Sodium Diet ([place]) * Low Sodium: Reading a Food Label ([place]) * Heart Failure [facility] ([place]) * PCI (Percutaneous Coronary Intervention): General Info ([place]) * Hemodialysis Access: Post op ([place]) documented in this encounter Medications at Time [...] 2nd Gen Pen Needle 32 gauge x /32 Needle Inject 2 Each by subcutaneous injection [...] included. Your life is our life's work [facility] Hospitalist/Hospital Medicine Progress Note LOS: 4 days Room/Bed: [facility]/ Patient name: Ida Morelos Date of : 1960 HOSPITAL COURSE SUMMARY: Ida Morelos, a 64 y.o. male who is admitted for further management of with PHM of T2DM, HTN, HLD, ESRD on HD, CAD status post PCI, CVA without residual deficits, diabetic polyneuropathy, combined systolic and diastolic heart failure, lumbar radiculopathy, GERD who was transferred from [facility] ER to [facility] ED on 12/2024 for further management [...] was similar to his previous episode of UT for which he had 2 stents placed in [facility]. Denies cough, sputum production, fever, chills. [...] stable, will continue with SSI 12/31-> awaiting [facility] today 01/01-> patient will undergo fistulogram [...] LABORATORY: Recent Labs 12/30/24 0522 12/30/24 2336 12/31/242 01/01/25 0138 WBC 5.0 4.5* 4.3* 4.1* HGB 10.2* 10.0* 9.8* 9.2* HCT 31.0* 30.6* 29.7* 27.2* PLT 203 209 200 182 Recent Labs 12/30/24 0522 12/31/24 0442 01/01/25 013 NA 135* 134* 136 K 4.5 4.6 4.6 CL 98 98 98 CO2 25 24 27 CA 9.0 8.7* 8.3* BUN 49* 62* 31* CREAT 5.55* 6.43* 4.19* GLUCOSE 133* 199* 166* Recent Labs 01/01/25137 TOTALPROTEIN 5.8* ALBUMIN 3.2* BILITOTAL 0.3 ALKPHOS [...] only, Zeke Cid MD, 4 mg at 12/31/240 [DISCONTINUED] fentaNYL PF (SUBLIMAZE) 50 mcg/mL injection, [...] discharge diagnosis: NSTEMI (non-ST elevated myocardial infarction) ([facility]) Other active medical issues also addressed during this admission: Active Hospital Problems Diagnosis Acute chest pain Elevated troponin Chronic anemia ESRD (end stage renal disease) on dialysis ([facility]) Ischemic dilated cardiomyopathy ([facility]) Chronic combined systolic and diastolic CHF (congestive heart failure) ([facility]) ESRD on hemodialysis ([facility]) History of coronary artery stent placement History of stroke without residual deficits NSTEMI (non-ST elevated myocardial infarction) ([facility]) Type 2 diabetes mellitus with hyperglycemia ([facility]) Essential hypertension Diabetic polyneuropathy associated with type 2 diabetes mellitus ([facility]) GERD (gastroesophageal reflux disease) Mixed hyperlipidemia Resolved [...] catheterization on Tuesday -n.p.o. from midnight -awaiting [facility] today Diabetic polyneuropathy Lumbar radiculopathy -Continue [employer]IC[employer] gabapentin HTN -Continue hydralazine 50 mg 3 times daily, valsartan 160 mg daily, amlodipine 5 mg daily, metoprolol tartrate 50 mg twice daily HLD History of CVA -Continue aspirin 81 mg daily, Plavix 75 mg daily, atorvastatin 80 mg daily at bedtime. T2DM -Has history of type 2 diabetes mellitus. 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 On-call for vascular surgery [facility] Chronic anemia [...] on PHI, per epic friend Lopez Ruiz [facility] complexity: [] Mild [x] Moderate [] High Phil Verdugo MD 01/01/2025, 11:47 AM * Nabil Blue MD - 01/01/2025 7:30 AM CDT DAILY PROGRESS NOTE CARDIOLOGY 01/01/2025 Ida Morelos is a 64 y.o. male with a history of ESRD on dialysis, diabetes type 2, dyslipidemia, CAD with PCI in [place] in 07/16/2024 reported he had a UT and got 2 stents, ischemic cardiomyopathy LVEF [...] Alfredo Harris MD 160 mg at 01/01/25 05 gabapentin (NEURONTIN) capsule 200 mg 200 mg TID Luis Alfredo Harris MD 200 mg at 12/31/24 181 nitroglycerin (NITRO-BID) 2 % topical ointment 1 Inch 1 Inch every 6 hours Gisela Harris, LIFE TRAINER 1 Inch at 12/31/24 05 [COMPLETED] morphine [...] 163 (HH) 12/30/2024 04:56 PM 2HRTROP 160 (HH) 12/30/2024 07:17 PM DELTA -8 10/12/2023 02:00 [...] Code Type 2 diabetes mellitus with hyperglycemia ([facility]) E11.65 Acute on chronic congestive heart failure ([facility]) I50.9 Accelerated hypertension I10 Essential hypertension I10 GERD (gastroesophageal reflux disease) K21.9 Mixed hyperlipidemia E78.2 TIA (transient ischemic attack) G45.9 NSTEMI (non-ST elevated myocardial infarction) ([facility]) I21.4 Hyperglycemia due to diabetes mellitus ([facility]) E11.65 Elevated d-dimer R79.89 Large pleural effusion J90 Diabetic polyneuropathy associated with type 2 diabetes mellitus ([facility]) E11.42 ESRD on hemodialysis ([facility]) N18.6, Z99.2 Lumbar radiculopathy, acute M54.16 Syncope R55 Atherosclerosis of [place] coronary artery of [place] heart without angina pectoris I25.10 History of coronary artery stent placement Z95.5 Hypertensive urgency I16.0 History of stroke without residual deficits Z86.73 Carpal tunnel syndrome, right G56.01 Chronic combined systolic and diastolic CHF (congestive heart failure) ([facility]) I50.42 Spinal stenosis of lumbar region with neurogenic claudication M48.062 Weakness of right lower extremity R29.898 Weakness of right upper extremity R29.898 Stable angina I20.89 Chronic anemia D64.9 ESRD (end stage renal disease) on dialysis ([facility]) N18.6, Z99.2 Ischemic dilated cardiomyopathy ([facility]) I25.5, I42.0 Acute chest pain R07.9 Elevated [...] 7:30 AM This documentation was created by [employer] industrial maintenance repairer helper software (known for inherent industrial maintenance repairer helper error) using [email or web address]. Effort has been done to assure accuracy of industrial maintenance repairer helper. Any obvious errors or omissions should be clarified with the author of the document. * Gisela Harris, LIFE TRAINER - 12/31/2024 3:35 PM CDT CARDIOLOGY PROGRESS NOTE Patient: Ida Melissap / 64 y.o. / male/ 1960 Today's [...] & imaging data reviewed CBC: Recent Labs 12/29/2443612/30/2452112/30/24 2336 12/31/24 0442 WBC 4.4* 5.0 4.5* 4.3* HGB 10.4* 10.2* 10.0* 9.8* PLT 183 203 209 200 BMP: Recent Labs 12/29/2443612/30/24 0522 12/31/24 0442 GLUCOSE 169* 133* 199* BUN 31* 49* 62* CREAT 4.24* 5.55* 6.43* NA 136 135* 134* K 4.3 4.5 4.6 CO2 27 24 Cardiac Tele: nsr rate 70 ; no events ASSESSMENT: Principal Problem: NSTEMI (non-ST elevated myocardial infarction) (CMS/HCC) Active Problems: Essential hypertension Mixed hyperlipidemia Overview: Identified By: Cayden Joyce Type 2 diabetes mellitus with hyperglycemia (CMS/HCC) GERD (gastroesophageal reflux disease) Diabetic polyneuropathy associated with type 2 diabetes mellitus ([facility]) ESRD on hemodialysis ([facility]) History of coronary artery stent placement History of stroke without residual deficits Chronic combined systolic and diastolic CHF (congestive heart failure) ([facility]) Chronic anemia ESRD (end stage renal disease) on dialysis ([facility]) Ischemic dilated cardiomyopathy ([facility]) Acute chest pain Elevated troponin PLAN: S/p JUAN LAD this am Continue dapt/statin/bb; may dc heparin Dialysis today post pci [facility] [place] Cosigned by Nabil Blue MD at 12/31/2024 3:38 PM CDT * Phil Verdugo MD - 12/31/2024 8:27 AM CDT Images from the original note were not included. Your life is our life's work [facility] Hospitalist/Hospital Medicine Progress Note LOS: 3 days Room/Bed: [facility]01 Patient name: Ida Morelos Date of : 1960 HOSPITAL COURSE SUMMARY: Ida Morelos, a 64 y.o. male who is admitted for further management of with PHM of T2DM, HTN, HLD, ESRD on HD, CAD status post PCI, CVA without residual deficits, diabetic polyneuropathy, combined systolic and diastolic heart failure, lumbar radiculopathy, GERD who was transferred from [facility] ER to [facility] ED on 12/2024 for further management [...] was similar to his previous episode of UT for which he had 2 stents placed in [facility]. Denies cough, sputum production, fever, chills. [...] stable, will continue with SSI 12/31-> awaiting [facility] today Consultants: IP CONSULT TO CARDIAC [...] Intake/Output Summary (Last 24 hours) at 12/31/2024 08 Last data filed at 12/30/2024 1732 Gross [...] or edema Skin: negative LABORATORY: Recent Labs 12/29/2443612/30/2452112/30/24 2336 12/31/24 0442 WBC 4.4* 5.0 4.5* 4.3* HGB 10.4* 10.2* 10.0* 9.8* HCT 31.5* 31.0* 30.6* 29.7* PLT 183 203 209 200 Recent Labs 12/29/2443612/30/24 0522 12/31/24 0442 NA 136 135* 134* [...] mL/hr at 12/30/24 173, 17 Units/kg/hr at 12/30/24 173 sodium chloride [...] Alfredo Harris MD, 100 mg at 12/30/24 1729 metoprolol tartrate (LOPRESSOR) tablet 50 mg, 50 [...] Inch, Topical, every 6 hours, Gisela Harris, LIFE TRAINER, 1 Inch at 12/31/24 0510 Primary discharge diagnosis: NSTEMI (non-ST elevated myocardial infarction) ([facility]) Other active medical issues also addressed during this admission: Active Hospital Problems Diagnosis Acute chest pain Elevated troponin Chronic anemia ESRD (end stage renal disease) on dialysis ([facility]) Ischemic dilated cardiomyopathy ([facility]) Chronic combined systolic and diastolic CHF (congestive heart failure) ([facility]) ESRD on hemodialysis ([facility]) History of coronary artery stent placement History of stroke without residual deficits NSTEMI (non-ST elevated myocardial infarction) ([facility]) Type 2 diabetes mellitus with hyperglycemia ([facility]) Essential hypertension Diabetic polyneuropathy associated with type 2 diabetes mellitus ([facility]) GERD (gastroesophageal reflux disease) Mixed hyperlipidemia Resolved [...] catheterization on Tuesday -n.p.o. from midnight -awaiting [facility] today Diabetic polyneuropathy Lumbar radiculopathy -Continue [employer] gabapentin HTN -Continue hydralazine 50 mg 3 times daily, valsartan 160 mg daily, amlodipine 5 mg daily, metoprolol tartrate 50 mg twice daily HLD History of CVA -Continue aspirin 81 mg daily, Plavix 75 mg daily, atorvastatin 80 mg daily at bedtime. T2DM -Has history of type 2 diabetes mellitus. 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 On-call for vascular surgery [facility]cconnell Chronic anemia [...] Primary family contact: None on PHI, per [facility] friend Lopez uRiz [facility] complexity: [] Mild [x] Moderate [] [...] included. Your life is our life's work [facility] Hospitalist/Hospital Medicine Progress Note LOS: 2 days Room/Bed: [facility]/ Patient name: Ida Morelos Date of : 1960 HOSPITAL COURSE SUMMARY: Ida Morelos, a 64 y.o. male who is admitted for further management of with PHM of T2DM, HTN, HLD, ESRD on HD, CAD status post PCI, CVA without residual deficits, diabetic polyneuropathy, combined systolic and diastolic heart failure, lumbar radiculopathy, GERD who was transferred from [facility] ER to [facility] ED on 12/2024 for further management [...] was similar to his previous episode of UT for which he had 2 stents placed in [facility] [place]. Denies cough, sputum production, fever, chills. He [...] weight: Weight: 96.6 kg (213 lb) (12/30/24 5220) EXAM: General: alert, in no distress Neurologic: [...] Jarrell MD, Last Rate: 17 mL/hr at 12/30/243, 17 Units/kg/hr at 12/30/24242 sodium chloride flush injection 10 mL, 10 mL, IV, every 12 hours (2 times daily), Luis Alfredo Harris MD, 10 mL at 07/05/25 2054 sodium chloride flush injection 10 mL, 10 [...] hours, Gisela Harris FNP, 1 Inch at 12/30/24 1138 Primary discharge diagnosis: NSTEMI (non-ST elevated myocardial infarction) ([facility]) Other active medical issues also addressed during this admission: Active Hospital Problems Diagnosis Acute chest pain Elevated troponin Chronic anemia ESRD (end stage renal disease) on dialysis ([facility]) Ischemic dilated cardiomyopathy ([facility]) Chronic combined systolic and diastolic CHF (congestive heart failure) ([facility]) ESRD on hemodialysis ([facility]) History of coronary artery stent placement History of stroke without residual deficits NSTEMI (non-ST elevated myocardial infarction) ([facility]) Type 2 diabetes mellitus with hyperglycemia ([facility]) Essential hypertension Diabetic polyneuropathy associated with type 2 diabetes mellitus ([facility]) GERD (gastroesophageal reflux disease) Mixed hyperlipidemia Resolved [...] from midnight Diabetic polyneuropathy Lumbar radiculopathy -Continue [employer] gabapentin HTN -Continue hydralazine 50 mg 3 times daily, valsartan 160 mg daily, amlodipine 5 mg daily, metoprolol tartrate 50 mg twice daily HLD History of CVA -Continue aspirin 81 mg daily, Plavix 75 mg daily, atorvastatin 80 mg daily at bedtime. T2DM -Has history of type 2 diabetes mellitus. 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 On-call for vascular surgery [facility] Mcconnell Chronic anemia [...] Primary family contact: None on PHI, per [facility] friend Lopez Ruiz [facility] complexity: [] Mild [x] Moderate [] High Bharati Jarrell MD 12/30/2024, 1:30 PM * Kenan Mendez CRNP - 12/30/2024 10:36 AM CDT DAILY PROGRESS NOTE [facility] EP CARDIOLOGY 12/30/2024 Ida Morelos is a 64 y.o. male being follow by cardiology for chest pain with chest pressure. HPI: Mr. Morelos is a 64-year-old gentleman with a history of ESRD on dialysis, diabetes type 2, dyslipidemia, CAD with PCI in [place] in 07/16/2024 reported he had a UT and got 2 stents, ischemic cardiomyopathy LVEF [...] included. Your life is our life's work [facility] Hospitalist/Hospital Medicine Progress Note LOS: 1 day Room/Bed: 4122/01 Patient name: Ida Morelos Date of : 1960 HOSPITAL COURSE SUMMARY: Iad Morelos, a 64 y.o. male who is admitted for further management of with PHM of T2DM, HTN, HLD, ESRD on HD, CAD status post PCI, CVA without residual deficits, diabetic polyneuropathy, combined systolic and diastolic heart failure, lumbar radiculopathy, GERD who was transferred from [facility] ER to [facility] ED on 12/2024 for further management [...] was similar to his previous episode of UT for which he had 2 stents placed in [facility]. Denies cough, sputum production, fever, chills. [...] or edema Skin: negative LABORATORY: Recent Labs 12/27/24200412/28/2410812/29/24 043 WBC 4.6 4.1* 4.4* HGB 10.7* 9.9* 10.4* HCT 32.2* 29.7* 31.5* PLT 232 202 183 Recent Labs 12/27/24200412/28/2410812/29/24 043 NA 138 140 136 K 4.1 3.9 [...] Alfredo Harris MD, 10 mg at 12/29/24 09 hydrALAZINE (APRESOLINE) tablet 100 mg, 100 [...] discharge diagnosis: NSTEMI (non-ST elevated myocardial infarction) ([facility]) Other active medical issues also addressed during this admission: Active Hospital Problems Diagnosis Chronic anemia ESRD (end stage renal disease) on dialysis ([facility]) Ischemic dilated cardiomyopathy ([facility]) Chronic combined systolic and diastolic CHF (congestive heart failure) ([facility]) ESRD on hemodialysis ([facility]) History of coronary artery stent placement History of stroke without residual deficits NSTEMI (non-ST elevated myocardial infarction) ([facility]) Type 2 diabetes mellitus with hyperglycemia ([facility]) Essential hypertension Diabetic polyneuropathy associated with type 2 diabetes mellitus ([facility]) GERD (gastroesophageal reflux disease) Mixed hyperlipidemia Resolved [...] report clinically significant changes in lab per [facility] Anticoagulation Protocol as follows: Orders for dosing changes and follow-up labs will be signed ???Per Protocol?? in [email or web address]. The name ofthe provider signed on the follow-up orders for cosignature will be assigned as follows: Orders placed by members of the [employer] or Hospitalist physician groups: If the original [...] order appropriate labs as indicated by the [facility] Anticoagulation Monitoring policy located on [employer] intranet, unless already ordered. The medications that [...] Safety Goal 3E and authorized by the [facility] Pharmacy and Therapeutics Committee. Nir Toney, PHARMACIST Cosigned by Richard Esparza MD at 12/28/2024 3:19 AM CDT documented in this encounter H&P Notes * Davion Mcconnell MD - 01/01/2025 1:24 PM CDT VASCULAR & ENDOVASCULAR SURGERY [place], [place] HISTORY & PHYSICAL HISTORY OF PRESENT ILLNESS: Ida Morelos is a 64 y.o. male who presents with pulsatile LUE AVG & arm swelling. PAST MEDICAL HISTORY: Past Medical History: Diagnosis Date Calculus of kidney Congestive heart failure (CMS/HCC) Coronary artery disease CRI (chronic renal insufficiency) Diabetes mellitus ([facility]/HCC) Difficult intravenous access GERD (gastroesophageal reflux disease) Hyperlipidemia Hypertension Myocardial infarction ([facility]/HCC) 2019 Obstructive sleep apnea CPAP not indicated at present time Stroke ([facility]) TIA (transient ischemic attack) PAST SURGICAL HISTORY: Past Surgical History: Procedure Laterality Date HX KNEE REPLACEMENT Right NOT a replacement [place] CRTJ ARVEN FSTL XCP DIR ARVEN ANAST NONAUTOG GRF Left 11/05/2024 ARTERIOVENOUS GRAFT INSERTION performed by Esme Vail MD at [facility] MAIN OR FAMILY HISTORY: Family [...] Housing Stability: High Risk (02/21/2024) Received from [facility] Housing Stability Vital Sign Unable to Pay [...] floor post procedure Signed: Davion Mcconnell DO, [facility] * Luis Alfredo Harris MD - 12/28/2024 3:53 AM CDT Images from the original note were not included. Your life is our life's work [facility] Hospitalist-Luis Alfredo Harris MD History and physical- date of admission: 12/28/2024 Patient name: Ida Morelos Date of : 1960 CSN number: [id number] PCP: No primary care provider on file. [...] failure,lumbar radiculopathy, GERD who was transferred from [facility] ER to [facility] ED on 12/2024 for further management [...] was similar to his previous episode of UT for which he had 2 stents placed in [facility]. Denies cough, sputum production, fever, chills. He reports that he missed his dialysis session on Tuesday for medical appointment and had a catch-up session on . Past medical history: Past Medical History: Diagnosis Date Calculus of kidney Congestive heart failure (CMS/[facility]) Coronary artery disease CRI (chronic renal insufficiency) Diabetes mellitus (CMS/HCC) Difficult intravenous access GERD (gastroesophageal reflux disease) Hyperlipidemia Hypertension Myocardial infarction (CMS/HCC) 2019 Obstructive sleep apnea CPAP not indicated at present time Stroke (CMS/[facility]) TIA (transient ischemic attack) Active chronic medical issues that patient has been followed for as outpatient: Patient Active Problem List Diagnosis Code Type 2 diabetes mellitus with hyperglycemia (CMS/HCC) E11.65 Acute on chronic congestive heart failure (CMS/HCC) I50.9 Accelerated hypertension I10 Essential hypertension I10 GERD (gastroesophageal reflux disease) K21.9 Mixed hyperlipidemia E78.2 TIA (transient ischemic attack) G45.9 NSTEMI (non-ST elevated myocardial infarction) ([facility]) I21.4 Hyperglycemia due to diabetes mellitus ([facility]) E11.65 Elevated d-dimer R79.89 Large pleural effusion J90 Diabetic polyneuropathy associated with type 2 diabetes mellitus ([facility]) E11.42 ESRD on hemodialysis ([facility]) N18.6, Z99.2 Lumbar radiculopathy, acute M54.16 Syncope R55 Atherosclerosis of [place] coronary artery of [place] heart without angina pectoris I25.10 History of coronary artery stent placement Z95.5 Hypertensive urgency I16.0 History of stroke without residual deficits Z86.73 Carpal tunnel syndrome, right G56.01 Chronic combined systolic and diastolic CHF (congestive heart failure) ([facility]) I50.42 Spinal stenosis of lumbar region with neurogenic claudication M48.062 Weakness of right lower extremity R29.898 Weakness of right upper extremity R29.898 Stable angina I20.89 Chronic anemia D64.9 Past surgical history: Past Surgical History: Procedure Laterality Date HX KNEE REPLACEMENT Right NOT a replacement [place] CRTJ ARVEN FSTL XCP DIR ARVEN ANAST NONAUTOG GRF Left 11/05/2024 ARTERIOVENOUS GRAFT INSERTION performed by Esme Vail MD at [facility] MAIN OR Current medications: Prior [...] Housing Stability: High Risk (02/21/2024) [facility] Vital Sign Unable to Pay [...] Wt 100 kg (220 lb 7.4 oz) [id number]% BMI 32.56 kg/m?? No intake or output [...] systolic and diastolic CHF (congestive heart failure) ([facility]) ESRD on hemodialysis ([facility]) History of coronary artery stent placement History of stroke without residual deficits Type 2 diabetes mellitus with hyperglycemia ([facility]) Essential hypertension Diabetic polyneuropathy associated with type 2 diabetes mellitus ([facility]) GERD (gastroesophageal reflux disease) Mixed hyperlipidemia Resolved [...] record, Referring and communication with other health critical care specialist (not separately reported), Independently interpreting results and [...] to: 4A Primary Care Nurse * Jessica Lzu NP - 12/31/2024 10:08 AM CDT PROCEDURE: [...] for nausea and vomiting. Medications Reviewed in [facility] Physical Exam: BP (!) 120/97 Pulse 63 Temp 97.5 ??F (36.4 ??C) Resp 13 Ht 5' 9 (1.753 m) Wt 96.5 kg (212 lb 11.9 oz) SpO2 99% BMI 31.42 kg/m?? Physical Exam General:NAD, Alert and O X 3 Respiratory: No respiratory distress CV: Trace leg edema berenice Skin: W/D/I Neuro: Alert, no overt neuro deficits appreciated Labs: Reviewed in [facility] Lab Results Component Value Date/Time NA 134 [...] and Plan: ESRD: - On hemodialysis at [facility] dialysis unit on Tuesday, Tuesday and Tuesday. - Will continue to see on hemodialysis days 2. Anemia of ESRD: - Hgb < 10. - dosed epogen stimulating agent 12/28/24 Jessica Luz NP [facility] 12/31/24, 10:08 AM Cosigned by [...] for nausea and vomiting. Medications Reviewed in [facility] Physical Exam: BP (!) 168/79 Pulse 74 Temp 97.7 ??F (36.5 ??C) (Temporal) Resp 20 Ht 5' 9 (1.753 m) Wt 100 kg (220 lb 7.4 oz) SpO2 97% BMI 32.56 kg/m?? Physical Exam General:NAD, Alert and O X 3 HEENT:NCAT, PERRLA Respiratory: No respiratory distress CV: Trace leg edema berenice Skin: W/D/I Neuro: Alert, no overt neuro deficits appreciated Labs: Reviewed in [facility] Lab Results Component Value Date/Time NA 140 [...] Assessment and Plan: ESRD: On hemodialysis at [facility] dialysis unit on Tuesday, Tuesday and Tuesday. He was seen and evaluated on hemodialysis today. Stable tx. On 3 K bath ultrafiltration 3 L. Check phosphorous with next labs. Will continue to see on hemodialysis days Tuesday, Tuesday and Tuesday 2. Anemia of ESRD: Hgb < 10. Will dose with epogen stimulating agent today. Treasure Garza MD [facility] 12/28/24, 12:07 PM documented in this encounter Consult Notes * Nigel Ibarra RN - 01/01/2025 7:11 AM CDT Cardiac rehab order noted and initiated for: Problem: NSTEMI, s/p PTCA Plan: Provide patient and/or family education for above problem prior to discharge. Goal: Patient and/or family will verbalize understanding of the education. [place]: Kadie Primary Tactical Air Defense Controller: Dr. Blue / [facility] * Latasha Torres RCP - 12/29/2024 8:09 AM CDT Cardiac rehab order noted and initiated for: Problem: NSTEMI, ICM, LHC pending Plan: Provide patient and/or family education for above problem prior to discharge. Goal: Patient and/or family will verbalize understanding of the education. [place]: Kadie Primary Tactical Air Defense Controller: Dr. Blue / [facility] * Gisela Harris FNP - 12/28/2024 10:56 AM CDTAssociated Order(s): IP CONSULT TO CARDIOLOGY CARDIOLOGY CONSULTATION [place], [place] Requesting Physician: Luis Alfredo Harris MD Primary Tactical Air Defense Controller: [facility] Tactical Air Defense Controller: Dr. Blue Date of Admission: 12/28/2024 Today's Date: 12/28/2024 Reason for Consultation: chest pain HPI Ida Morelos is a 64 y.o. male with a history of ESRD on HD, DM II, Dyslipidemia who had normal coronary angiogram 2016 and 2020 however he had UT with PCI x2 in [facility] back in June. EF 45%. He presents [...] this am. Troponin 181, 171, 153. NtproBNP 88058 EKG NSR 75 bpm. He was placed on heparin gtt for possible NSTEMI. Past Medical History: Diagnosis Date Calculus of kidney Congestive heart failure (CMS/HCC) Coronary artery disease CRI (chronic renal insufficiency) Diabetes mellitus (CMS/HCC) Difficult intravenous access GERD (gastroesophageal reflux disease) Hyperlipidemia Hypertension Myocardial infarction (CMS/HCC) 2018 Obstructive sleep apnea CPAP not indicated at present time Stroke (CMS/HCC) TIA (transient ischemic attack) Past Surgical History: Procedure Laterality Date HX KNEE REPLACEMENT Right NOT a replacement [place] CRTJ ARVMARIE FSTL XCP DIR JENI ANAST NONAUTOG GRF Left 11/05/2024 ARTERIOVENOUS GRAFT INSERTION performed by Esme Vail MD at [facility] MAIN OR Facility-Administered Medications Prior [...] Joyce Type 2 diabetes mellitus with hyperglycemia ([facility]) GERD (gastroesophageal reflux disease) NSTEMI (non-ST elevated myocardial infarction) ([facility]) Diabetic polyneuropathy associated with type 2 diabetes mellitus ([facility]) ESRD on hemodialysis ([facility]) History of coronary artery stent placement History of stroke without residual deficits Chronic combined systolic and diastolic CHF (congestive heart failure) ([facility]) Chronic anemia Plan: Plan LHC with possible PCI. Timing TBD as patient has dialysis this am. Continue dapt/statin/bb/ heparin gtt. CAD- UT with PCI Jun 2024 Ischemic cardiomyopathy- EF [...] type 2, dyslipidemia, CAD with PCI in [facility] in 07/16/2024 reported he had a UT and got 2 stents, ischemic cardiomyopathy LVEF [...] Blue MD This documentation was created by Sogou industrial maintenance repairer helper software (known for inherent industrial maintenance repairer helper error) using MyCube EHR. Effort has been done to assure accuracy of industrial maintenance repairer helper. Any obvious errors or omissions should be clarified with the author of the document. documented in this encounter OR Notes * Operative Report - Davion Mcconnell MD - 01/01/2025 2:01 PM CDT SECTION OF VASCULAR SURGERY & ENDOVASCULAR THERAPY [place], [place] Operative Note PATIENT NAME: Ida Morelos : 1960; AGE: 64 y.o.; SEX: M ; Date of Service: 01/01/25 Pre-operative Diagnosis: LUE swelling History of left arm AV-graft End stage renal disease on dialysis Post-operative Diagnosis: Same Procedures Performed: Monitored anesthesia care (see below) Ultrasound guided access left arm AV-graft Venogram RADIO ELECTRONICS OFFICER axillary vein (6x40 balloon) Surgeons/Assistants: Davion Mcconnell [...] understanding of potential risks including stroke, , UT, cardiopulmonary failure, renal failure, hemorrhage, infection, damage to surrounding structures, nerve injury, possible need for reoperation. Procedure Detail: The patient was brought the to director labor standards. The consent was confirmed with the patient & director labor standards staff. The surgical site was prepped in [...] from vascular surgery standpoint Electronically Signed: Davion Creeden, DO Vascular Surgeon 01/01/2025 documented in this [...] pressure, onset 1800 yesterday. Was seen at [place] and started on nitro gtt and heparin [...] Monitors on and audible. Pt placed on fish net stringer, pulse ox and blood pressure monitor. Call [...] 06/2024. His care is primarily managed at [facility]. He is scheduled for a follow-up visit on Tuesday for a narrowed graft. The patient attempted to alleviate the discomfort with nitroglycerin, but it was ineffective, leading to his admission to [facility]. Despite receiving heparin, nitroglycerin, morphine, and a [...] Stents placement in 06/2024 Graft procedure at [facility] SOCIAL HISTORY He does not smoke, drink alcohol, or use drugs. PAST MEDICAL HISTORY REVIEWED MEDICAL: Patient has a past medical history of Calculus of kidney, Congestive heart failure (CMS/HCC), Coronary artery disease, CRI (chronic renal insufficiency), Diabetes mellitus ([facility]), Difficult intravenous access, GERD (gastroesophageal reflux disease), Hyperlipidemia, Hypertension, Myocardial infarction (CMS/HCC) (2018), Obstructive sleep apnea, Stroke ([facility]), and TIA (transient ischemic attack). SURGICAL: [...] ordered. Risk OTC drugs. Prescription drug management. [facility] Consults: hospitalist Time hospitalist paged: 12/28/2024 3:06 [...] patient is a 64-year-old male transferred from [facility] facility for evaluation of chest pain. He [...] may have been created by an artificial industrial maintenance repairer helper software such as [employer] and Neotropix such as [employer]. Effort has been done to assure accuracy of industrial maintenance repairer helper. Any obvious errors or omissions should [...] infusion 10 Units/kg/hr IV New Bag 12/28/2024 011 CDT nitroglycerin (NITRO-BID) 2 % topical ointment [...] ESRD (end stage renal disease) on dialysis ([facility]) [R79.89] Elevated troponin [D64.9] Normocytic anemia [D72.819] [...] was made to Outpatient Cardiopulmonary Rehab at [place]. Patient was provided with contact information for [...] Urbano RN - 12/31/2024 9:46 AM CDT Crime Scene Investigator Discharge Planning Expected Discharge Date Jan 01, 2025 Plan Discharge To: Home or Self Care (12/29/24739) Plan Discharge To - Alternate: Home or Self Care (12/29/24739) Referrals Status: CM following for discharge planning [phone] [place], [facility] [address] Patient / Family Communications Resources Provided Transportation Plan Family Follow Up Appointments Scheduled Kierra Urbano RN * Care Plan - Esme Solares RN - 12/29/2024 5:45 PM CDT Patient is resting in bed with call light and personal belongings within reach. Hourly rounding performed. Medications given per AUG. Heparin at 17 units/kg/hr. Therapeutic twice today. Next anti-XA is tomorrow 0500. Planning for [facility] Tuesday. Patient says he is having [...] inpatient telemetry. *This summary was created by [employer] MARIA. The responses are meant to enhance, not replace normal workflow. Please contact the ED nurse for any additional information.* * Treatment Plan - Nir Toney V., PHARMACIST - 12/28/2024 1:19 AM CDT [facility] Adult Heparin Anti-Xa Monitoring Protocol [facility] ORDERS ARE ENTERED ???PER PROTOCOL?? [...] Info) Description 01/04/2025 6:30 AM CDT Appointment [facility] Zaida Montoya [address] [place] [id number] 01/15/2025 1:30 PM CDT Office Visit [facility] [place] [address] [facility] [address] [place] [phone] Davion Mcconnell MD [address] [place] [address] Esme Vail MD [address] [place] [address] 08/28/2025 1:00 PM BUS DRIVER Office Visit [facility] Neurosurgery [address] [place] [address] Adali Hammond PA [address] [place] [address] Pending Results Name Type Priority Associated Diagnoses Date /Time EKG 12-LEAD ECG Routine 01/01/2025 2: 45 PM CDT Scheduled Referrals Name Type Priority Associated Diagnoses Orde r Schedule AMB REFERRAL TO CARDIAC REHAB Outpatient Referral Routine NSTEMI (non-ST elevated myocardial infarction) ([facility]) S/P PTCA (percutaneous transluminal coronary angioplasty) Ordered: 01/01/2025 documented as of this encounter Procedures Procedure Name Priority Date/Time Associated Diagnosis Comments TELEMETRY REPORT 01/02/2025 2:39 AM CDT EKG 12-LEAD Routine 01/01/2025 2:45 PM CDT Procedure Note - Ash Wheat MD - 01/01/2025 2:45 PM CDTThis note is in progress. 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 us Davion Mcconnell MD CUP CATH ORDERABLES Final Resu lt * (ABNORMAL) POC GLUCOSE (01/01/2025 11:28 AM CDT) GLUCOSE POC 145(H) 74 - 99 mg/dL 01/01/2025 11:28 AM CDT [facility] SPECIMEN SOURCE, GLUCOSE POC Capillary 01/01/2025 11:28 AM CDT [facility] Blood, whole 01/01/2025 11:2 8 AM CDT 01/01/2025 11:43 AM CDT Phil Verdugo MD POINT OF CARE TESTING Final Result [facility] CLIA # [id number] [address] [address] * (ABNORMAL) POC GLUCOSE (01/01/2025 7:03 AM CDT) [facility] [address] GLUCOSE POC 155(H) 74 - 99 mg/dL 01/01/2025 7:03 AM CDT [facility] SPECIMEN SOURCE, GLUCOSE POC Capillary 01/01/2025 7:03 AM CDT [facility] Blood, whole 01/01/2025 7:03 AM CDT 01/01/2025 7:36 AM CDT Phil Verdugo MD POINT OF CARE TESTING Final Result [facility] CLIA # [id number] [address] [address] * (ABNORMAL) COMPREHENSIVE METABOLIC PANEL (01/01/2025 1:38 AM CDT) [facility] [address] SODIUM 136 136 - 145 mmol/L 01/01/2025 2:27 AM T [facility] POTASSIUM 4.6 3.5 - 5.1 mmol/L 01/01/2025 2:27 AM CDT [facility] CHLORIDE 98 98 - 107 mmol/L 01/01/2025 2:27 AM CDT [facility] CO2 27 22 - 29 mmol/L 01/01/2025 2:27 AM CDT [facility] CALCIUM 8.3(L) 8.8 - 10.2 mg/dL 01/01/2025 2:27 AM T [facility] BUN 31(H) 8 - 23 mg/dL 01/01/2025 2:27 AM T [facility] CREATININE 4.19(H) 0.67 - 1.17 mg/dL 01/01/2025 2:27 AM CDT [facility] GLUCOSE 166(H) 74 - 99 mg/dL 01/01/2025 2:27 AM T [facility] TOTAL PROTEIN 5.8(L) 6.4 - 8.3 g/dL 01/01/2025 2:27 AM [facility] ALBUMIN 3.2(L) 3.5 - 5.2 g/dL 01/01/2025 2:27 AM T [facility] BILIRUBIN TOTAL 0.3 0.0 - 1.0 mg/dL 01/01/2025 2:27 AM T [facility] ALKALINE PHOSPHATASE 88 40 - 129 U/L 01/01/2025 2:27 AM T [facility] AST 17 10 - 50 U/L 01/01/2025 2:27 AM [facility] ALT 15 <=50 U/L 01/01/2025 2:27 AM [facility] GFR 15(L) >=60 mL/min/1. 73 sq meter 01/01/2025 2:27 AM [facility] Comment:eGFR calculated with 2020 CKD-EPI equation. Vegetarian diet, extremely high or low muscle mass, and may affect results. Cystatin C with Glomerular Filtration Rate is a suitable alternative for these patients. ANION GAP 11 9 - 20 mmol/L 01/01/2025 2:27 AM [facility] Blood Venipuncture / Unknown 01/01/2025 1:38 AM CDT 01/01/2025 1:45 AM CDT us Phil Verdugo MD CHEMISTRY ORDERABLES Final Result [facility] CLIA # [id number] [address] [address] [place] [place], [place] [address] * (ABNORMAL) CBC WITH DIFFERENTIAL (01/01/2025 1:38 AM CDT) WBC 4.1(L) 4.8 - 10.8 K/uL 01/01/2025 1:51 AM [facility] RBC 3.20(L) 4.60 - 6.20 M/uL 01/01/2025 1:51 AM [facility] HEMOGLOBIN 9.2(L) 14.0 - 18.0 g/dL 01/01/2025 1:51 AM [facility] HEMATOCRIT 27.2(L) 41.0 - 53.0 % 01/01/2025 1:51 AM [facility] MCV 85.0 84.0 - 103.0 fL 01/01/2025 1:51 AM [facility] MCH 28.8 27.0 - 34.0 pg 01/01/2025 1:51 AM [facility] MCHC 33.8 30.0 - 35.0 g/dL 01/01/2025 1:51 AM [facility] PLATELETS 182 140 - 440 K/uL 01/01/2025 1:51 AM [facility] MPV 9.8 8.9 - 12.8 fL 01/01/2025 1:51 AM [facility] RDW 14.7(H) 11.0 - 14.5 % 01/01/2025 1:51 AM [facility] RDW-STDEV 45.8 37.0 - 54.0 fL 01/01/2025 1:51 AM [facility] NEUTROPHILS 56 42 - 75 % 01/01/2025 1:51 AM [facility] LYMPHOCYTES 33 24 - 44 % 01/01/2025 1:51 AM [facility] MONOCYTES 9 2 - 10 % 01/01/2025 1:51 AM [facility] EOSINOPHILS 1 0 - 7 % 01/01/2025 1:51 AM [facility] BASOPHILS 1 0 - 1 % 01/01/2025 1:51 AM [facility] IMMATURE GRANULOCYTES 0 0 - 2 % 01/01/2025 1:51 AM CDT [facility] NEUTROPHIL ABSOLUTE 2.32 2.00 - 8.00 K/uL 01/01/2025 1:51 AM CDT [facility] LYMPHOCYTE ABSOLUTE 1.37 1.20 - 4.00 K/uL 01/01/2025 1:51 AM CDT [facility] MONOCYTE ABSOLUTE 0.38 0.10 - 0.60 K/uL 01/01/2025 1:51 AM CDT [facility] EOSINOPHIL ABSOLUTE 0.02 0.00 - 0.70 K/uL 01/01/2025 1:51 AM CDT [facility] BASOPHILS ABSOLUTE 0.04 0.00 - 0.20 K/uL 01/01/2025 1:51 AM CDT [facility] IMMATURE GRANULOCYTES ABSOLUTE 0.00 0.00 - 0.10 K/uL 01/01/2025 1:51 AM CDT [facility] SMEAR REVIEWED: NA - Not Applicable 01/01/2025 1:51 AM CDT [facility] Blood Venipuncture / Unknown 01/01/2025 1:38 AM CDT 01/01/2025 1:45 AM CDT us Phil Verdugo MD HEMATOLOGY ORDERABLES Final Result [facility] # [id number] [address] [place] [address] * UNFRACTIONATED HEPARIN MONITORING (01/01/2025 1:38 AM CDT) ANTI-XA UNFRAC HEP <0.10 See Interpretation IU/mL 01/01/2025 2:01 AM CDT [facility] Blood Venipuncture / Unknown 01/01/2025 1:38 AM CDT 01/01/2025 1:45 AM CDT Narrative [facility] - 01/01/2025 2:01 AM CDT Therapeutic Range: PT/DVT Heparin Protocol 0.3 - 0.7 IU/ml Cardiac Heparin Protocol 0.3 - 0.6 IU/ml The reference range for this test is specific to the anticoagulant and is not appropriate for monitoring patients on a DOAC protocol. Bharati Jarrell MD HEMATOLOGY ORDERABLES Final Resu lt Performing Organization Address [facility] Co de Phone Number [facility] CLIA # [id number] [facility] [address] [address] [place] [address] * (ABNORMAL) POC GLUCOSE (12/31/2024 8:28 PM CDT) GLUCOSE POC 196(H) 74 - 99 mg/dL 12/31/2024 8:28 PM CDT [facility] SPECIMEN SOURCE, GLUCOSE POC Capillary 12/31/2024 8:28 PM CDT [facility] Blood, whole 12/31/2024 8:28 PM CDT 12/31/2024 9:25 PM CDT Phil Verdugo MD POINT OF CARE TESTING Final Result Performing Organization Address [facility] Co de Phone Number [facility] CLIA # [id number] [facility] [address] [address] * (ABNORMAL) POC GLUCOSE (12/31/2024 3:40 PM CDT) GLUCOSE POC 112(H) 74 - 99 mg/dL 12/31/2024 3:40 PM CDT [facility] SPECIMEN SOURCE, GLUCOSE POC Capillary 12/31/2024 3:40 PM CDT [facility] Blood, whole 12/31/2024 3:40 PM CDT 12/31/2024 3:49 PM CDT us Phil Verdugo MD POINT OF CARE TESTING Final Result [facility] [facility] KENIA # [id number] [address] [facility] [place] [address] * LEFT HEART CATH, PERCUTANEOUS CORONARY INTERVENTION, CORONARY LITHOTRIPSY, IVUS-CORONARY INTRAVASCULAR (12/31/2024 3:08 PM CDT) 12/31/2024 2:34 PM CDT Narrative [facility] - 12/31/2024 4:54 PM CDT Prox LAD [...] CATH SHOCKWAVE C2+ IVL 3.0X12MM 5FR 138CM [id number] Angioplasty: Angioplasty independent of stent deployment was performed. Angioplasty was performed independent of stent deployment. Supplies Used: CATH BALLN PTCA 3.88O32MQ SAPPHIRE NC24 CORONARY [id number] Post-Intervention Lesion Assessment: The intervention was successful. [...] vessels). Cerebrovascular Disease History: Unknown Gisela Harris LIFE TRAINER CUP CATH ORDERABLES Final Result [facility] [id number] [address] [facility] [address] [place] [phone], * (ABNORMAL) POC ACTIVATED CLOTTING TIME (12/31/2024 3:07 PM CDT) Pathologist [facility] ACTIVATED CLOTTING TIME POC 302(H) 116 - 140 sec 12/31/2024 3:07 PM CDT [facility] Blood 12/31/2024 3:07 PM CDT 12/31/2024 3:10 PM CDT Phil Verdugo MD POINT OF CARE TESTING Final Result Performing Organization Address [facility]/ZIP Co de Phone Number [facility] CLIA # [id number] [address] [facility] [place] [address] * ACUTE HEPATITIS PANEL (12/31/2024 10:28 AM CDT) HEPATITIS B SURFACE AG NON-REACT JOSE Non-react jose 12/31/2024 11:25 AM CDT [facility] Comment:A non-reactive test result does not exclude the possibility of exposure to or infection with hepatitis B. HEPATITIS B CORE IGM NON-REACT JOSE Non-react jose 12/31/2024 11:25 AM CDT [facility] Comment:IgM antibodies to HB c were not detected; does not exclude the possibility of exposure to HBV. HEPATITIS A IGM Non-react jose Non-react jose 12/31/2024 11:25 AM CDT [facility] Comment:A negative test resu lt does not exclude the possibility of exposure to Hepatitis A virus. HEPATITIS C AB NON-REACT JOSE Non-react jose 12/31/2024 11:25 AM CDT [facility] Comment:Antibodies to HCV we re not detected, does not exclude the possibility of exposure to HCV. Blood Venipuncture / Unknown 12/31/2024 10:28 AM CDT 12/31/2024 10:33 AM CDT us Jessica Luz NP CHEMISTRY ORDERABLES Final Resul t Performing Organization Address [facility] de Phone Number [facility] CLIA # [id number] [facility] [address] * (ABNORMAL) POC GLUCOSE (12/31/2024 7:05 AM CDT) Pathologist [facility] GLUCOSE POC 155(H) 74 - 99 mg/dL 12/31/2024 7:05 AM CDT [facility] SPECIMEN SOURCE, GLUCOSE POC Capillary 12/31/2024 7:05 AM CDT [facility] Blood, whole 12/31/2024 7:05 AM CDT 12/31/2024 7:24 AM CDT us Bharati Jarrell MD POINT OF CARE TESTING Final Resu lt Performing Organization Address [facility] Co de Phone Number [facility] CLIA # [id number] [address] [address] * (ABNORMAL) BASIC METABOLIC PANEL (12/31/2024 4:42 AM CDT) Pathologist [facility] SODIUM 134(L) 136 - 145 mmol/L 12/31/2024 5:34 AM CDT [facility] POTASSIUM 4.6 3.5 - 5.1 mmol/L 12/31/2024 5:34 AM CDT [facility] CHLORIDE 98 98 - 107 mmol/L 12/31/2024 5:34 AM CDT [facility] CO2 24 22 - 29 mmol/L 12/31/2024 5:34 AM CDT [facility] CALCIUM 8.7(L) 8.8 - 10.2 mg/dL 12/31/2024 5:34 AM CDT [facility] BUN 62(H) 8 - 23 mg/dL 12/31/2024 5:34 AM T [facility] CREATININE 6.43(H) 0.67 - 1.17 mg/dL 12/31/2024 5:34 AM CDT [facility] GLUCOSE 199(H) 74 - 99 mg/dL 12/31/2024 5:34 AM T [facility] GFR 9(L) >=60 mL/min/1. 73 sq meter 12/31/2024 5:34 AM [facility] Comment:eGFR calculated with 2020 CKD-EPI equation. Vegetarian diet, extremely high or low muscle mass, and may affect results. Cystatin C with Glomerular Filtration Rate is a suitable alternative for these patients. ANION GAP 12 9 - 20 mmol/L 12/31/2024 5:34 AM T [facility] Blood Venipuncture / Unknown 12/31/2024 4:42 AM CDT 12/31/2024 5:03 AM CDT us Bharati Jarrell MD CHEMISTRY ORDERABLES Final Resul t [facility] CLIA # [id number] [facility] [address] [place] [address] * (ABNORMAL) CBC WITH DIFFERENTIAL (12/31/2024 4:42 AM CDT) [facility] [address] WBC 4.3(L) 4.8 - 10.8 K/uL 12/31/2024 5:17 AM CDT [facility] RBC 3.39(L) 4.60 - 6.20 M/uL 12/31/2024 5:17 AM CDT [facility] HEMOGLOBIN 9.8(L) 14.0 - 18.0 g/dL 12/31/2024 5:17 AM CDT [facility] HEMATOCRIT 29.7(L) 41.0 - 53.0 % 12/31/2024 5:17 AM CDT [facility] MCV 87.6 84.0 - 103.0 fL 12/31/2024 5:17 AM [facility] MCH 28.9 27.0 - 34.0 pg 12/31/2024 5:17 AM [facility] MCHC 33.0 30.0 - 35.0 g/dL 12/31/2024 5:17 AM CDT [facility] PLATELETS 200 140 - 440 K/uL 12/31/2024 5:17 AM [facility] MPV 10.0 8.9 - 12.8 fL 12/31/2024 5:17 AM [facility] RDW 14.6(H) 11.0 - 14.5 % 12/31/2024 5:17 AM [facility] RDW-STDEV 46.9 37.0 - 54.0 fL 12/31/2024 5:17 AM CDT [facility] NEUTROPHILS 45 42 - 75 % 12/31/2024 5:17 AM CDT [facility] LYMPHOCYTES 44 24 - 44 % 12/31/2024 5:17 AM CDT [facility] MONOCYTES 9 2 - 10 % 12/31/2024 5:17 AM CDT [facility] EOSINOPHILS 1 0 - 7 % 12/31/2024 5:17 AM CDT [facility] BASOPHILS 1 0 - 1 % 12/31/2024 5:17 AM CDT [facility] IMMATURE GRANULOCYTES 0 0 - 2 % 12/31/2024 5:17 AM CDT [facility] NEUTROPHIL ABSOLUTE 1.91(L) 2.00 - 8.00 K/uL 12/31/2024 5:17 AM CDT [facility] LYMPHOCYTE ABSOLUTE 1.89 1.20 - 4.00 K/uL 12/31/2024 5:17 AM CDT [facility] MONOCYTE ABSOLUTE 0.37 0.10 - 0.60 K/uL 12/31/2024 5:17 AM CDT [facility] EOSINOPHIL ABSOLUTE 0.03 0.00 - 0.70 K/uL 12/31/2024 5:17 AM CDT [facility] BASOPHILS ABSOLUTE 0.05 0.00 - 0.20 K/uL 12/31/2024 5:17 AM CDT [facility] IMMATURE GRANULOCYTES ABSOLUTE 0.01 0.00 - 0.10 K/uL 12/31/2024 5:17 AM CDT [facility] SMEAR REVIEWED: NA - Not Applicable 12/31/2024 5:17 AM CDT [facility] Blood Venipuncture / Unknown 12/31/2024 4:42 AM CDT 12/31/2024 5:03 AM CDT us Bharati Jarrell MD HEMATOLOGY ORDERABLES Final Resu lt [facility] CLIA # [id number] [address] [place] [address] * UNFRACTIONATED HEPARIN MONITORING (12/31/2024 4:42 AM CDT) ANTI-XA UNFRAC HEP 0.46 See Interpretation IU/mL 12/31/2024 5:19 AM CDT [facility] Blood Venipuncture / Unknown 12/31/2024 4:42 AM CDT 12/31/2024 5:03 AM CDT [facility] - 12/31/2024 5:19 AM CDT Therapeutic Range: PT/DVT Heparin Protocol 0.3 - 0.7 IU/ml Cardiac Heparin Protocol 0.3 - 0.6 IU/ml The reference range for this test is specific to the anticoagulant and is not appropriate for monitoring patients on a DOAC protocol. us Bharati Jarrell MD HEMATOLOGY ORDERABLES Final Resu lt [facility] CLIA # [id number] [address] [address] [place] [address] * (ABNORMAL) CBC WITHOUT DIFFERENTIAL (12/30/2024 11:36 PM CDT) [facility] [address] WBC 4.5(L) 4.8 - 10.8 K/uL 12/30/2024 11:44 PM CDT [facility] RBC 3.51(L) 4.60 - 6.20 M/uL 12/30/2024 11:44 PM CDT [facility] HEMOGLOBIN 10.0(L) 14.0 - 18.0 g/dL 12/30/2024 11:44 PM CDT [facility] HEMATOCRIT 30.6(L) 41.0 - 53.0 % 12/30/2024 11:44 PM CDT [facility] MCV 87.2 84.0 - 103.0 fL 12/30/2024 11:44 PM CDT [facility] MCH 28.5 27.0 - 34.0 pg 12/30/2024 11:44 PM CDT [facility] MCHC 32.7 30.0 - 35.0 g/dL 12/30/2024 11:44 PM CDT [facility] PLATELETS 209 140 - 440 K/uL 12/30/2024 11:44 PM T [facility] MPV 9.9 8.9 - 12.8 fL 12/30/2024 11:44 PM CDT [facility] RDW 14.7(H) 11.0 - 14.5 % 12/30/2024 11:44 PM CDT [facility] RDW-STDEV 47.2 37.0 - 54.0 fL 12/30/2024 11:44 PM CDT [facility] Blood Venipuncture / Unknown 12/30/2024 11:36 PM CDT 12/30/2024 11:42 PM CDT Davion Mcconnell MD HEMATOLOGY ORDERABLES Final Re sult Performing Organization Address [facility]/ZIP Co de Phone Number [facility] CLIA # [id number] [address] [address] * (ABNORMAL) TROPONIN 6 HR, 5TH GEN (12/30/2024 11:36 PM CDT) [facility] TROPONIN T, 6 HR 5TH GEN 160(HH) <=15 ng/L 12/31/2024 12:35 AM CDT [facility] DELTA 6HR TROPONIN T % -2 See Interp. % 12/31/2024 12:35 AM CDT [facility] Blood Venipuncture / Unknown 12/30/2024 11:36 PM CDT 12/30/2024 11:44 PM CDT Narrative [facility] - 12/31/2024 12:35 AM CDT Troponin elevated. Delay in collection of timed specimen beyond recommended collection interval. Results must be interpreted in clinical context. Delta not changing. us Bharati Jarrell MD CHEMISTRY ORDERABLES Final Resul t Performing Organization Address [facility]/ZIP Co de Phone Number [facility] CLIA # [id number] [address] [id number] * (ABNORMAL) POC GLUCOSE (12/30/2024 8:41 PM CDT) [facility] [address] GLUCOSE POC 171(H) 74 - 99 mg/dL 12/30/2024 8:41 PM CDT [facility] SPECIMEN SOURCE, GLUCOSE POC Capillary 12/30/2024 8:41 PM CDT [facility] Blood, whole 12/30/2024 8:41 PM CDT 12/30/2024 9:37 PM CDT us Bharati Jarrell MD POINT OF CARE TESTING Final Resu lt [facility] CLIA # [id number] [address] [id number] * (ABNORMAL) TROPONIN 2 HR, 5TH GEN (12/30/2024 7:17 PM CDT) Pathologist [facility] TROPONIN T, 2 HR 5TH GEN 160(HH) <=15 ng/L 12/30/2024 8:00 PM CDT [facility] DELTA 2HR TROPONIN T % -2 See Interp. % 12/30/2024 8:00 PM CDT [facility] Blood Venipuncture / Unknown 12/30/2024 7:17 PM CDT 12/30/2024 7:23 PM CDT Narrative [facility] - 12/30/2024 8:00 PM CDT Troponin elevated. Delay in collection of timed specimen beyond recommended collection interval. Results must be interpreted in clinical context. Delta not changing. us Bharati Jarrell MD CHEMISTRY ORDERABLES Final Resul t Performing Organization Address City/[facility]/ZIP Co de Phone Number [facility] CLIA # [id number] [address] [phone] * (ABNORMAL) TROPONIN BASELINE, 5TH GEN (12/30/2024 4:56 PM CDT) Pathologist [facility] TROPONIN T, BASELINE 5TH GEN 163(HH) <=15 ng/L 12/30/2024 6:10 PM CDT [facility] Blood Venipuncture / Unknown 12/30/2024 4:56 PM CDT 12/30/2024 5:33 PM CDT Narrative [facility] - 12/30/2024 6:10 PM CDT Troponin elevated. 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: [id number] : 1960 Requested By: Order Number: [id number] Reading MD: Neeta Tejeda Measurements Intervals [place] Rate: 61 P: 44 [place]: 184 QRS: -56 QRSD: 122 T: 48 QT: 442 QTc: 444 Interpretive Statements Normal sinus rhythm Left axis deviation Septal infarct, age undetermined Abnormal ECG Electronically Signed On 12-31-2024 6:38:43 CDT by Neeta Tejeda us Bharati Jarrell MD ECG ORDERABLES Final Result Performing Organization Address City/[facility] Co de Phone Number INTERFACE SYSTEM Refer to clinic/hospital department * (ABNORMAL) POC GLUCOSE (12/30/2024 4:52 PM CDT) GLUCOSE POC 174(H) 74 - 99 mg/dL 12/30/2024 4:52 PM CDT [facility] SPECIMEN SOURCE, GLUCOSE POC Capillary 12/30/2024 4:52 PM CDT [facility] Blood, whole 12/30/2024 4:52 PM CDT 12/30/2024 5:15 PM CDT us Bharati Jarrell MD POINT OF CARE TESTING Final Resu lt Performing Organization Address [facility] de Phone Number [facility] CLIA # [id number] [address] [place] [address] [place] [address] * (ABNORMAL) POC GLUCOSE (12/30/2024 11:07 AM CDT) GLUCOSE POC 181(H) 74 - 99 mg/dL 12/30/2024 11:07 AM CDT [facility] SPECIMEN SOURCE, GLUCOSE POC Capillary 12/30/2024 11:07 AM CDT [facility] Blood, whole 12/30/2024 11:0 7 AM CDT 12/30/2024 11:18 AM CDT us Bharati Jarrell MD POINT OF CARE TESTING Final Resu lt Performing Organization Address City/[facility]/ZIP Co de Phone Number [facility] CLIA # [id number] [address] [place] [address] * (ABNORMAL) POC GLUCOSE (12/30/2024 7:09 AM CDT) [facility] [address] GLUCOSE POC 125(H) 74 - 99 mg/dL 12/30/2024 7:09 AM CDT [facility] SPECIMEN SOURCE, GLUCOSE POC Capillary 12/30/2024 7:09 AM CDT [facility] Blood, whole 12/30/2024 7:09 AM CDT 12/30/2024 7:30 AM CDT us Bharati Jarrell MD POINT OF CARE TESTING Final Resu lt Performing Organization Address [facility] de Phone Number [facility] CLIA # [id number] [address] [address] * UNFRACTIONATED HEPARIN MONITORING (12/30/2024 5:22 AM CDT) [facility] ANTI-XA UNFRAC HEP 0.46 See Interpretation IU/mL 12/30/2024 5:48 AM CDT [facility] Blood Venipuncture / Unknown 12/30/2024 5:22 AM CDT 12/30/2024 5:33 AM CDT Narrative [facility] - 12/30/2024 5:48 AM CDT Therapeutic Range: PT/DVT Heparin Protocol 0.3 - 0.7 IU/ml Cardiac Heparin Protocol 0.3 - 0.6 IU/ml The reference range for this test is specific to the anticoagulant and is not appropriate for monitoring patients on a DOAC protocol. us Bharati Jarrell MD HEMATOLOGY ORDERABLES Final Resu lt Performing Organization Address [facility] Co de Phone Number [facility] CLIA # [id number] [address] [place] [address] [place] [address] * (ABNORMAL) BASIC METABOLIC PANEL (12/30/2024 5:22 AM CDT) SODIUM 135(L) 136 - 145 mmol/L 12/30/2024 6:14 AM T [facility] POTASSIUM 4.5 3.5 - 5.1 mmol/L 12/30/2024 6:14 AM T [facility] CHLORIDE 98 98 - 107 mmol/L 12/30/2024 6:14 AM T [facility] CO2 25 22 - 29 mmol/L 12/30/2024 6:14 AM T [facility] CALCIUM 9.0 8.8 - 10.2 mg/dL 12/30/2024 6:14 AM [facility] BUN 49(H) 8 - 23 mg/dL 12/30/2024 6:14 AM [facility] CREATININE 5.55(H) 0.67 - 1.17 mg/dL 12/30/2024 6:14 AM [facility] GLUCOSE 133(H) 74 - 99 mg/dL 12/30/2024 6:14 AM [facility] GFR 11(L) >=60 mL/min/1. 73 sq meter 12/30/2024 6:14 AM [facility] Comment:eGFR calculated with 2020 CKD-EPI equation. Vegetarian diet, extremely high or low muscle mass, and may affect results. Cystatin C with Glomerular Filtration Rate is a suitable alternative for these patients. ANION GAP 12 9 - 20 mmol/L 12/30/2024 6:14 AM [facility] Blood Venipuncture / Unknown 12/30/2024 5:22 AM CDT 12/30/2024 5:32 AM CDT us Luis Alfredo Harris MD CHEMISTRY ORDERABLES Final R esult [facility] CLIA # [id number] [address] [address] [place] [address] * (ABNORMAL) CBC WITH DIFFERENTIAL (12/30/2024 5:22 AM CDT) [facility] [address] WBC 5.0 4.8 - 10.8 K/uL 12/30/2024 5:40 AM CDT [facility] RBC 3.54(L) 4.60 - 6.20 M/uL 12/30/2024 5:40 AM CDT [facility] HEMOGLOBIN 10.2(L) 14.0 - 18.0 g/dL 12/30/2024 5:40 AM CDT [facility] HEMATOCRIT 31.0(L) 41.0 - 53.0 % 12/30/2024 5:40 AM CDT [facility] MCV 87.6 84.0 - 103.0 fL 12/30/2024 5:40 AM CDT [facility] MCH 28.8 27.0 - 34.0 pg 12/30/2024 5:40 AM CDT [facility] MCHC 32.9 30.0 - 35.0 g/dL 12/30/2024 5:40 AM CDT [facility] PLATELETS 203 140 - 440 K/uL 12/30/2024 5:40 AM CDT [facility] MPV 9.7 8.9 - 12.8 fL 12/30/2024 5:40 AM CDT [facility] RDW 14.9(H) 11.0 - 14.5 % 12/30/2024 5:40 AM CDT [facility] RDW-STDEV 48.1 37.0 - 54.0 fL 12/30/2024 5:40 AM CDT [facility] NEUTROPHILS 43 42 - 75 % 12/30/2024 5:40 AM CDT [facility] LYMPHOCYTES 46(H) 24 - 44 % 12/30/2024 5:40 AM CDT [facility] MONOCYTES 9 2 - 10 % 12/30/2024 5:40 AM CDT [facility] EOSINOPHILS 1 0 - 7 % 12/30/2024 5:40 AM CDT [facility] BASOPHILS 1 0 - 1 % 12/30/2024 5:40 AM CDT [facility] IMMATURE GRANULOCYTES 0 0 - 2 % 12/30/2024 5:40 AM CDT [facility] NEUTROPHIL ABSOLUTE 2.16 2.00 - 8.00 K/uL 12/30/2024 5:40 AM CDT [facility] LYMPHOCYTE ABSOLUTE 2.29 1.20 - 4.00 K/uL 12/30/2024 5:40 AM CDT [facility] MONOCYTE ABSOLUTE 0.43 0.10 - 0.60 K/uL 12/30/2024 5:40 AM CDT [facility] EOSINOPHIL ABSOLUTE 0.06 0.00 - 0.70 K/uL 12/30/2024 5:40 AM CDT [facility] BASOPHILS ABSOLUTE 0.06 0.00 - 0.20 K/uL 12/30/2024 5:40 AM CDT [facility] IMMATURE GRANULOCYTES ABSOLUTE 0.01 0.00 - 0.10 K/uL 12/30/2024 5:40 AM CDT [facility] SMEAR REVIEWED: NA - Not Applicable 12/30/2024 5:40 AM CDT [facility] Blood Venipuncture / Unknown 12/30/2024 5:22 AM CDT 12/30/2024 5:33 AM CDT us Luis Alfredo Harris MD HEMATOLOGY ORDERABLES Final Result [facility] CLIA # [id number] [address] [place] [address] [place] [address] * (ABNORMAL) POC GLUCOSE (12/30/2024 1:55 AM CDT) [facility] Signature GLUCOSE POC 149(H) 74 - 99 mg/dL 12/30/2024 1:55 AM CDT [facility] SPECIMEN SOURCE, GLUCOSE POC Capillary 12/30/2024 1:55 AM CDT [facility] Blood, whole 12/30/2024 1:55 AM CDT 12/30/2024 2:15 AM CDT Bharati Jarrell MD POINT OF CARE TESTING Final Resu lt Performing Organization Address [facility] Co de Phone Number [facility] CLIA # [id number] [address] [address] [place] [address] * (ABNORMAL) POC GLUCOSE (12/29/2024 8:53 PM CDT) GLUCOSE POC 179(H) 74 - 99 mg/dL 12/29/2024 8:53 PM CDT [facility] SPECIMEN SOURCE, GLUCOSE POC Capillary 12/29/2024 8:53 PM CDT [facility] Blood, whole 12/29/2024 8:53 PM CDT 12/29/2024 9:19 PM CDT us Bharati Jarrell MD POINT OF CARE TESTING Final Resu lt Performing Organization Address [facility] de Phone Number [facility] CLIA # [id number] [address] [address] * (ABNORMAL) POC GLUCOSE (12/29/2024 4:49 PM CDT) GLUCOSE POC 121(H) 74 - 99 mg/dL 12/29/2024 4:49 PM CDT [facility] SPECIMEN SOURCE, GLUCOSE POC Capillary 12/29/2024 4:49 PM CDT [facility] Blood, whole 12/29/2024 4:49 PM CDT 12/29/2024 5:20 PM CDT Bharati Jarrell MD POINT OF CARE TESTING Final Resu lt Performing Organization Address [facility] Co de Phone Number [facility] CLIA # [id number] [address] [phone] * (ABNORMAL) POC GLUCOSE (12/29/2024 11:27 AM CDT) Pathologist [facility] GLUCOSE POC 314(H) 74 - 99 mg/dL 12/29/2024 11:27 AM CDT [facility] SPECIMEN SOURCE, GLUCOSE POC Capillary 12/29/2024 11:27 AM CDT [facility] Blood, whole 12/29/2024 11:2 7 AM CDT 12/29/2024 12:21 PM CDT Bharati Jarrell MD POINT OF CARE TESTING Final Resu lt Performing Organization Address [facility] Co de Phone Number [facility] CLIA # [id number] [address] [id number] * UNFRACTIONATED HEPARIN MONITORING (12/29/2024 10:35 AM CDT) ANTI-XA UNFRAC HEP 0.43 See Interpretation IU/mL 12/29/2024 11:22 AM CDT [facility] Blood Venipuncture / Unknown 12/29/2024 10:35 AM CDT 12/29/2024 11:04 AM CDT Narrative [facility] - 12/29/2024 11:22 AM CDT Therapeutic Range: PT/DVT Heparin Protocol 0.3 - 0.7 IU/ml Cardiac Heparin Protocol 0.3 - 0.6 IU/ml The reference range for this test is specific to the anticoagulant and is not appropriate for monitoring patients on a DOAC protocol. Bharati Jarrell MD HEMATOLOGY ORDERABLES Final Resu lt Performing Organization Address [facility] Co de Phone Number [facility] CLIA # [id number] [address] [address] * (ABNORMAL) POC GLUCOSE (12/29/2024 7:39 AM CDT) [facility] [address] GLUCOSE POC 147(H) 74 - 99 mg/dL 12/29/2024 7:39 AM CDT [facility] SPECIMEN SOURCE, GLUCOSE POC Capillary 12/29/2024 7:39 AM CDT [facility] Blood, whole 12/29/2024 7:39 AM CDT 12/29/2024 7:48 AM CDT Bharati Jarrell MD POINT OF CARE TESTING Final Resu lt Performing Organization Address [facility] Co de Phone Number [facility] CLIA # [id number] [facility] [address] * UNFRACTIONATED HEPARIN MONITORING (12/29/2024 4:37 AM CDT) [facility] [address] ANTI-XA UNFRAC HEP 0.37 See Interpretation IU/mL 12/29/2024 4:52 AM CDT [facility] Blood Venipuncture / Unknown 12/29/2024 4:37 AM CDT 12/29/2024 4:40 AM CDT Narrative [facility] - 12/29/2024 4:52 AM CDT Therapeutic Range: PT/DVT Heparin Protocol 0.3 - 0.7 IU/ml Cardiac Heparin Protocol 0.3 - 0.6 IU/ml The reference range for this test is specific to the anticoagulant and is not appropriate for monitoring patients on a DOAC protocol. Bharati Jarrell MD HEMATOLOGY ORDERABLES Final Resu lt [facility] CLIA # [id number] [facility] [address] [place] [address] * (ABNORMAL) BASIC METABOLIC PANEL (12/29/2024 4:37 AM CDT) SODIUM 136 136 - 145 mmol/L 12/29/2024 5:17 AM CDT [facility] POTASSIUM 4.3 3.5 - 5.1 mmol/L 12/29/2024 5:17 AM CDT [facility] CHLORIDE 100 98 - 107 mmol/L 12/29/2024 5:17 AM CDT [facility] CO2 27 22 - 29 mmol/L 12/29/2024 5:17 AM T [facility] CALCIUM 8.6(L) 8.8 - 10.2 mg/dL 12/29/2024 5:17 AM T [facility] BUN 31(H) 8 - 23 mg/dL 12/29/2024 5:17 AM T [facility] CREATININE 4.24(H) 0.67 - 1.17 mg/dL 12/29/2024 5:17 AM T [facility] GLUCOSE 169(H) 74 - 99 mg/dL 12/29/2024 5:17 AM T [facility] GFR 15(L) >=60 mL/min/1. 73 sq meter 12/29/2024 5:17 AM T [facility] Comment:eGFR calculated with 2020 CKD-EPI equation. Vegetarian diet, extremely high or low muscle mass, and may affect results. Cystatin C with Glomerular Filtration Rate is a suitable alternative for these patients. ANION GAP 9 9 - 20 mmol/L 12/29/2024 5:17 AM T [facility] Blood Venipuncture / Unknown 12/29/2024 4:37 AM CDT 12/29/2024 4:42 AM CDT us Luis Alfredo Harris MD CHEMISTRY ORDERABLES Final R esult [facility] KENIA # [id number] [facility] [place] [address] * (ABNORMAL) CBC WITH DIFFERENTIAL (12/29/2024 4:37 AM CDT) Pathologist [facility] WBC 4.4(L) 4.8 - 10.8 K/uL 12/29/2024 4:45 AM CDT [facility] RBC 3.61(L) 4.60 - 6.20 M/uL 12/29/2024 4:45 AM CDT [facility] HEMOGLOBIN 10.4(L) 14.0 - 18.0 g/dL 12/29/2024 4:45 AM CDT [facility] HEMATOCRIT 31.5(L) 41.0 - 53.0 % 12/29/2024 4:45 AM CDT [facility] MCV 87.3 84.0 - 103.0 fL 12/29/2024 4:45 AM CDT [facility] MCH 28.8 27.0 - 34.0 pg 12/29/2024 4:45 AM CDT [facility] MCHC 33.0 30.0 - 35.0 g/dL 12/29/2024 4:45 AM CDT [facility] PLATELETS 183 140 - 440 K/uL 12/29/2024 4:45 AM CDT [facility] MPV 9.0 8.9 - 12.8 fL 12/29/2024 4:45 AM CDT [facility] RDW 15.2(H) 11.0 - 14.5 % 12/29/2024 4:45 AM CDT [facility] RDW-STDEV 48.7 37.0 - 54.0 fL 12/29/2024 4:45 AM CDT [facility] NEUTROPHILS 40(L) 42 - 75 % 12/29/2024 4:45 AM CDT [facility] LYMPHOCYTES 47(H) 24 - 44 % 12/29/2024 4:45 AM CDT [facility] MONOCYTES 11(H) 2 - 10 % 12/29/2024 4:45 AM T [facility] EOSINOPHILS 1 0 - 7 % 12/29/2024 4:45 AM CDT [facility] BASOPHILS 1 0 - 1 % 12/29/2024 4:45 AM CDT [facility] IMMATURE GRANULOCYTES 0 0 - 2 % 12/29/2024 4:45 AM CDT [facility] NEUTROPHIL ABSOLUTE 1.77(L) 2.00 - 8.00 K/uL 12/29/2024 4:45 AM CDT [facility] LYMPHOCYTE ABSOLUTE 2.06 1.20 - 4.00 K/uL 12/29/2024 4:45 AM T [facility] MONOCYTE ABSOLUTE 0.46 0.10 - 0.60 K/uL 12/29/2024 4:45 AM CDT [facility] EOSINOPHIL ABSOLUTE 0.04 0.00 - 0.70 K/uL 12/29/2024 4:45 AM CDT [facility] BASOPHILS ABSOLUTE 0.06 0.00 - 0.20 K/uL 12/29/2024 4:45 AM [facility] IMMATURE GRANULOCYTES ABSOLUTE 0.00 0.00 - 0.10 K/uL 12/29/2024 4:45 AM [facility] SMEAR REVIEWED: NA - Not Applicable 12/29/2024 4:45 AM [facility] Blood Venipuncture / Unknown 12/29/2024 4:37 AM CDT 12/29/2024 4:40 AM CDT us Luis Alfredo Harris MD HEMATOLOGY ORDERABLES Final Result [facility] CLIA # [id number] [address] [place] [address] * UNFRACTIONATED HEPARIN MONITORING (12/28/2024 10:12 PM CDT) Pathologist [facility] ANTI-XA UNFRAC HEP 0.23 See Interpretation IU/mL 12/28/2024 10:47 PM CDT [facility] Blood Venipuncture / Unknown 12/28/2024 10:12 PM CDT 12/28/2024 10:33 PM CDT Narrative [facility] - 12/28/2024 10:47 PM CDT Therapeutic Range: PT/DVT Heparin Protocol 0.3 - 0.7 IU/ml Cardiac Heparin Protocol 0.3 - 0.6 IU/ml The reference range for this test is specific to the anticoagulant and is not appropriate for monitoring patients on a DOAC protocol. us Bharati Jarrell MD HEMATOLOGY ORDERABLES Final Resu lt Performing Organization Address City/[facility]/ZIP Co de Phone Number [facility] CLIA # [id number] [address] [address] * (ABNORMAL) POC GLUCOSE (12/28/2024 8:32 PM CDT) [facility] [address] GLUCOSE POC 200(H) 74 - 99 mg/dL 12/28/2024 8:32 PM CDT [facility] SPECIMEN SOURCE, GLUCOSE POC Capillary 12/28/2024 8:32 PM CDT [facility] Blood, whole 12/28/2024 8:32 PM CDT 12/29/2024 12:30 AM CDT us Bharati Jarrell MD POINT OF CARE TESTING Final Resu lt Performing Organization Address City/[facility]/ZIP Co de Phone Number [facility] CLIA # [id number] [address] [address] * (ABNORMAL) POC GLUCOSE (12/28/2024 4:56 PM CDT) [facility] [address] GLUCOSE POC 287(H) 74 - 99 mg/dL 12/28/2024 4:56 PM CDT [facility] SPECIMEN SOURCE, GLUCOSE POC Capillary 12/28/2024 4:56 PM CDT [facility] Blood, whole 12/28/2024 4:56 PM CDT 12/28/2024 5:27 PM CDT us Bharati Jarrell MD POINT OF CARE TESTING Final Resu lt Performing Organization Address [facility] Co de Phone Number [facility] CLIA # [id number] [address] [phone] * UNFRACTIONATED HEPARIN MONITORING (12/28/2024 3:14 PM CDT) [facility] [address] ANTI-XA UNFRAC HEP 0.18 See Interpretation IU/mL 12/28/2024 3:33 PM CDT [facility] Blood Venipuncture / Unknown 12/28/2024 3:14 PM CDT 12/28/2024 3:21 PM CDT Narrative [facility] - 12/28/2024 3:33 PM CDT Therapeutic Range: PT/DVT Heparin Protocol 0.3 - 0.7 IU/ml Cardiac Heparin Protocol 0.3 - 0.6 IU/ml The reference range for this test is specific to the anticoagulant and is not appropriate for monitoring patients on a DOAC protocol. us Luis Alfredo Harris MD HEMATOLOGY ORDERABLES Final Result Performing Organization Address [facility]/ZIP Co de Phone Number [facility] CLIA # [id number] [address] [phone] * ECHO COMPLETE - CONTRAST AND STRAIN IF INDICATED (12/28/2024 3:06 PM CDT) [facility] [address] EJECTION FRACTION 50 INTERFACE SYSTEM 12/28/2024 2:30 PM CDT Narrative INTERFACE SYSTEM - 12/28/2024 4:43 PM CDT [facility] Echocardiography Laboratory [facility] [place] [address] Transthoracic Echocardiography Patient: Ida Morelos Study ID: ECHO COMPLETE - Gene Gender: M : 1960 Age: 64 Room: [facility] Study 12/28/2024 Pt Inpatient Date: Status: Study 02:30:44 PM CSN #: [id number] Time: Ordering:Nabil Blue Preparer Making Department: Marcy Sauceda Indications and History: UT/ACS; Initial evaluation post UT. Summary and Conclusion: - Left ventricle: The [...] date: 12/28/2024. Study time: 02:30 PM. Location: [facility]. Cardiac Anatomy: LEFT VENTRICLE: The cavity size [...] (H) nir values outside specified reference range. [facility] are accredited with the Intersocietal Accreditation Commission - Echocardiography. Prepared and Electronically Authenticated Nabil Blue Confirmed 12/28/2024 16:43 Procedure Note Nabil Blue MD - 12/28/2024 [facility] Echocardiography Laboratory [address] [place] [address] Transthoracic Echocardiography Patient: Ida Morelos Study ID: ECHOCOMPLETE - Gene Gender: M : 1960 Age: 64 Room: [facility] Study 12/28/2024 Pt Inpatient Date: Status: Study 02:30:44 PM [facility] #: [id number] Time: Ordering:Nabil Blue Preparer Making Department: Marcy Sauceda Indications and History: UT/ACS; Initial evaluation post UT. Summary and Conclusion: - Left ventricle: The [...] (H) nir values outside specified reference range. [facility] are accredited with [facility] Accreditation Commission - Echocardiography. Prepared and Electronically Authenticated Nabil Blue 12/28/2024 16:43 Nabil Blue MD US ORDERABLES Jen jackson Result INTERFACE SYSTEM Refer to clinic/hospital department * (ABNORMAL) POC GLUCOSE (12/28/2024 11:53 AM CDT) Pathologist [facility] GLUCOSE POC 133(H) 74 - 99 mg/dL 12/28/2024 11:53 AM CDT [facility] SPECIMEN SOURCE, GLUCOSE POC Capillary 12/28/2024 11:53 AM CDT [facility] Blood, whole 12/28/2024 11:5 3 AM CDT 12/28/2024 12:01 PM CDT Luis Alfredo Harris MD POINT OF CARE TESTING Final Result Performing Organization Address [facility]/ZIP Co de Phone Number [facility] CLIA # [id number] [address] [place] [address] * UNFRACTIONATED HEPARIN MONITORING (12/28/2024 8:16 AM CDT) Pathologist [facility] ANTI-XA UNFRAC HEP 0.11 See Interpretation IU/mL 12/28/2024 8:40 AM CDT [facility] Blood Venipuncture / Unknown 12/28/2024 8:16 AM CDT 12/28/2024 8:21 AM CDT Narrative [facility] - 12/28/2024 8:40 AM CDT Therapeutic Range: PT/DVT Heparin Protocol 0.3 - 0.7 IU/ml Cardiac Heparin Protocol 0.3 - 0.6 IU/ml The reference range for this test is specific to the anticoagulant and is not appropriate for monitoring patients on a DOAC protocol. Bharati Jarrell MD HEMATOLOGY ORDERABLES Final Resu lt [facility] CLIA # [id number] [address] [address] [place] [address] * XR CHEST PA OR AP 1 [...] 153(HH) <=15 ng/L 12/28/2024 2:42 AM CDT [facility] Blood Venipuncture / Unknown 12/28/2024 1:59 AM CDT 12/28/2024 2:02 AM CDT Narrative [facility] - 12/28/2024 2:42 AM CDT Troponin elevated. Unable to calculate delta. 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: [id number] : 1960 Requested By: Order Number: [id number] Reading MD: Joshua Crowder Measurements Intervals [place] Rate: 75 P: 32 [place]: 174 QRS: -53 QRSD: 124 T: 79 QT: 416 QTc: 464 Interpretive Statements Normal sinus rhythm Left axis deviation Septal infarct, age undetermined Abnormal ECG Electronically Signed On 12-28-2024 5:46:12 CDT by Joshua Crowder Procedure Note Joshua Crowder MD - 12/28/2024 [place] [address] Test Date: 2024-12-28 Pat Name: IDA MORELOS Department: 11 Room: 07 29 Gender: Male [employer]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 [employer] Fitting: [id number] : 1960 Requested By: Order Number: [id number] Reading MD: Joshua Crowder Measurements Intervals [place] Rate: 75 P: 32 [place]: 174 QRS: -53 QRSD: 124 T: 79 QT: 416 QTc: 464 Interpretive Statements Normal sinus rhythm Left axis deviation Septal infarct, age undetermined Abnormal ECG Electronically Signed On 12-28-2024 5:46:12 CDT by Joshua Crowder us Richard Esparza MD ECG ORDERABLES Final Resu lt INTERFACE SYSTEM Refer to clinic/hospital department * (ABNORMAL) LIPID RFLX (12/28/2024 1:09 AM CDT) Pathologist [facility] CHOLESTEROL 122 <200 mg/dL 12/28/2024 6:02 AM CDT [facility] TRIGLYCERIDE 120 <150 mg/dL 12/28/2024 6:02 AM CDT [facility] HDL 32(L) 40 - 59 mg/dL 12/28/2024 6:02 AM CDT [facility] LDL CALCULATED 66 <100 mg/dL 12/28/2024 6:02 AM T [facility] NON-HDL CHOLESTEROL 90 <130 mg/dL 12/28/2024 6:02 AM T [facility] Blood Venipuncture / Unknown 12/28/2024 1:09 AM CDT 12/28/2024 1:23 AM CDT Narrative [facility] - 12/28/2024 6:02 AM CDT TOTAL CHOLESTEROL [...] ORDERABLES Final R esult Performing Organization Address [facility] de Phone Number [facility] CLIA # [id number] [address] [place] [address] * TSH (12/28/2024 1:09 AM CDT) Pathologist [facility] TSH 3.23 0.27 - 4.20 uIU/mL 12/28/2024 5:59 AM CDT [facility] Blood Venipuncture / Unknown 12/28/2024 1:09 AM CDT 12/28/2024 1:23 AM CDT Luis Alfredo Harris MD CHEMISTRY ORDERABLES Final R esult Performing Organization Address [facility] de Phone Number [facility] CLIA # [id number] [address] [place] [address] * UNFRACTIONATED HEPARIN MONITORING (12/28/2024 1:09 AM CDT) Pathologist [facility] ANTI-XA UNFRAC HEP <0.10 See Interpretation IU/mL 12/28/2024 1:42 AM CDT [facility] Blood Venipuncture / Unknown 12/28/2024 1:09 AM CDT 12/28/2024 1:23 AM CDT Narrative [facility] - 12/28/2024 1:42 AM CDT Therapeutic Range: PT/DVT Heparin Protocol 0.3 - 0.7 IU/ml Cardiac Heparin Protocol 0.3 - 0.6 IU/ml The reference range for this test is specific to the anticoagulant and is not appropriate for monitoring patients on a DOAC protocol. us Richard Esparza MD HEMATOLOGY ORDERABLES Jen renetta Result [facility] CLIA # [id number] [address] [address] [place] [address] * (ABNORMAL) BASIC METABOLIC PANEL (12/28/2024 1:09 AM CDT) SODIUM 140 136 - 145 mmol/L 12/28/2024 1:54 AM CDT [facility] POTASSIUM 3.9 3.5 - 5.1 mmol/L 12/28/2024 1:54 AM CDT [facility] CHLORIDE 101 98 - 107 mmol/L 12/28/2024 1:54 AM CDT [facility] CO2 26 22 - 29 mmol/L 12/28/2024 1:54 AM T [facility] CALCIUM 8.7(L) 8.8 - 10.2 mg/dL 12/28/2024 1:54 AM CDT [facility] BUN 40(H) 8 - 23 mg/dL 12/28/2024 1:54 AM T [facility] CREATININE 4.42(H) 0.67 - 1.17 mg/dL 12/28/2024 1:54 AM [facility] GLUCOSE 208(H) 74 - 99 mg/dL 12/28/2024 1:54 AM [facility] GFR 14(L) >=60 mL/min/1. 73 sq meter 12/28/2024 1:54 AM [facility] Comment:eGFR calculated with 2020 CKD-EPI equation. Vegetarian diet, extremely high or low muscle mass, and may affect results. Cystatin C with Glomerular Filtration Rate is a suitable alternative for these patients. ANION GAP 13 9 - 20 mmol/L 12/28/2024 1:54 AM [facility] Blood Venipuncture / Unknown 12/28/2024 1:09 AM CDT 12/28/2024 1:23 AM CDT Richard Esparza MD CHEMISTRY ORDERABLES Final Result Performing Organization Address [facility] Co de Phone Number [facility] CLIA # [id number] [address] [address] [place] [address] * (ABNORMAL) PTT (12/28/2024 1:09 AM CDT) PTT 44.8(H) 24.8 - 37.2 seconds 12/28/2024 1:42 AM CDT [facility] Blood Venipuncture / Unknown 12/28/2024 1:09 AM CDT 12/28/2024 1:23 AM CDT Narrative [facility] - 12/28/2024 1:42 AM CDT Therapeutic Range: Hi-level PE/DVT heparin protocol 80.1 - 95.0 sec Lo-level PE/DVT heparin protocol 70.1 - 85.0 sec Cardiac Heparin Protocol 70.1 - 100.0 sec Richard Esparza MD HEMATOLOGY ORDERABLES Jen l Result Performing Organization Address [facility] Co de Phone Number [facility] CLIA # [id number] [address] [address] * PROTIME-INR (12/28/2024 1:09 AM CDT) PROTIME 14.4 12.7 - 14.9 Seconds 12/28/2024 1:42 AM CDT [facility] INR 1.1 0.8 - 1.2 12/28/2024 1:42 AM CDT [facility] Blood Venipuncture / Unknown 12/28/2024 1:09 AM CDT 12/28/2024 1:23 AM CDT Narrative [facility] - 12/28/2024 1:42 AM CDT Expected Values for INR: DVT/PE Goal INR 2.5; range 2.0 - 3.0 Valve Replacement Tissue Goal INR 2.5; range 2.0 - 3.0 Valve Replacement Mechanical Goal INR 3.0; range 2.5 - 3.5 POST-UT Goal INR 2.5; range 2.0 - 3.0 or Goal INR 3.0; range 2.5 - 3.5 Atrial Fibrillation Goal INR 2.5; range 2.0 - 3.0 Ischemic Stroke Goal INR 2.5; range 2.0 - 3.0 us Richard Esparza MD HEMATOLOGY ORDERABLES Jen jackson Result [facility] CLIA # [id number] [address] [address] * (ABNORMAL) CBC WITH DIFFERENTIAL (12/28/2024 1:09 AM CDT) [facility] [address] WBC 4.1(L) 4.8 - 10.8 K/uL 12/28/2024 1:30 AM CDT [facility] RBC 3.45(L) 4.60 - 6.20 M/uL 12/28/2024 1:30 AM CDT [facility] HEMOGLOBIN 9.9(L) 14.0 - 18.0 g/dL 12/28/2024 1:30 AM CDT [facility] HEMATOCRIT 29.7(L) 41.0 - 53.0 % 12/28/2024 1:30 AM CDT [facility] MCV 86.1 84.0 - 103.0 fL 12/28/2024 1:30 AM CDT [facility] MCH 28.7 27.0 - 34.0 pg 12/28/2024 1:30 AM CDT [facility] MCHC 33.3 30.0 - 35.0 g/dL 12/28/2024 1:30 AM CDT [facility] PLATELETS 202 140 - 440 K/uL 12/28/2024 1:30 AM [facility] MPV 9.2 8.9 - 12.8 fL 12/28/2024 1:30 AM [facility] RDW 15.4(H) 11.0 - 14.5 % 12/28/2024 1:30 AM [facility] RDW-STDEV 47.8 37.0 - 54.0 fL 12/28/2024 1:30 AM [facility] NEUTROPHILS 42 42 - 75 % 12/28/2024 1:30 AM [facility] LYMPHOCYTES 46(H) 24 - 44 % 12/28/2024 1:30 AM [facility] MONOCYTES 11(H) 2 - 10 % 12/28/2024 1:30 AM [facility] EOSINOPHILS 1 0 - 7 % 12/28/2024 1:30 AM [facility] BASOPHILS 1 0 - 1 % 12/28/2024 1:30 AM [facility] IMMATURE GRANULOCYTES 0 0 - 2 % 12/28/2024 1:30 AM [facility] NEUTROPHIL ABSOLUTE 1.72(L) 2.00 - 8.00 K/uL 12/28/2024 1:30 AM [facility] LYMPHOCYTE ABSOLUTE 1.88 1.20 - 4.00 K/uL 12/28/2024 1:30 AM [facility] MONOCYTE ABSOLUTE 0.45 0.10 - 0.60 K/uL 12/28/2024 1:30 AM [facility] EOSINOPHIL ABSOLUTE 0.03 0.00 - 0.70 K/uL 12/28/2024 1:30 AM [facility] BASOPHILS ABSOLUTE 0.04 0.00 - 0.20 K/uL 12/28/2024 1:30 AM [facility] IMMATURE GRANULOCYTES ABSOLUTE 0.01 0.00 - 0.10 K/uL 12/28/2024 1:30 AM [facility] SMEAR REVIEWED: NA - Not Applicable 12/28/2024 1:30 AM CDT [facility] Blood Venipuncture / Unknown 12/28/2024 1:09 AM CDT 12/28/2024 1:23 AM CDT Richard Esparza MD HEMATOLOGY ORDERABLES Jen l Result [facility] CLIA # [id number] [address] [place] [address] [place] [address] documented in this encounter Visit Diagnoses Diagnosis NSTEMI (non-ST elevated myocardial infarction) ([facility])- Primary Acute myocardial infarction, subendocardial infarction, episode of care unspecified Acute chest pain Chest pain, unspecified ESRD (end stage renal disease) on dialysis ([facility]) End stage renal disease Elevated troponin Other abnormal blood chemistry Normocytic anemia Anemia, unspecified Leukopenia, unspecified type Atherosclerosis of [place] coronary artery of [place] heart without angina pectoris NSTEMI (non-ST elevated myocardial infarction) ([facility]) Acute myocardial infarction, subendocardial infarction, episode of care unspecified End stage renal disease ([facility]) End stage renal disease S/P PTCA (percutaneous transluminal coronary angioplasty) Postsurgical percutaneous transluminal coronary angioplasty status Type 2 diabetes mellitus with hyperglycemia ([facility]) Type II or unspecified type diabetes mellitus without mention of complication, not stated as uncontrolled Chronic combined systolic and diastolic CHF (congestive heart failure) ([facility]) Diabetic polyneuropathy associated with type 2 diabetes mellitus ([facility]) ESRD on hemodialysis ([facility]) End stage renal disease Essential hypertension Unspecified essential hypertension GERD (gastroesophageal reflux disease) Esophageal reflux History of coronary artery stent placement History of stroke without residual deficits Transient ischemic attack (TIA), and cerebral infarction without residual deficits Mixed hyperlipidemia Chronic anemia Anemia, unspecified ESRD (end stage renal disease) on dialysis ([facility]) End stage renal disease Ischemic dilated cardiomyopathy ([facility]) Other specified forms of chronic ischemic heart disease Acute chest pain Chest pain, unspecified Elevated troponin Other abnormal blood chemistry NSTEMI (non-ST elevated myocardial infarction) ([facility]) Acute myocardial infarction, subendocardial infarction, episode of care unspecified End stage renal disease ([facility]) End stage renal disease documented in this [...] 12/30/2024 9:12 AM CDT 10 mg aspirin (ECOTRIN EC) tablet 81 mg [...] mcg/mL injection ONE TIME PRN, Starting on Tue01/01/25 at 1333, Until Tue01/01/25 at 1405, Routine, Intra-Procedure (Invasive Cardiology) Given 01/01/2025 1:33 PM CDT 50 mcg gabapentin (NEURONTIN) capsule [...] bulk pack) ONE TIME PRN, Starting on Tue01/01/25 at 1355, Until Tue01/01/25 at 1405, Routine, Intra-Procedure (Invasive Cardiology) Given 01/01/2025 1:55 PM CDT 20 mL isosorbide mononitrate (IMDUR) SR 24 hour tablet 30 mg 30 mg, Oral, DAILY, First dose on Tue01/01/25 at 0900, Until Discontinued, Routine Given 01/01/2025 9:10 AM CDT 30 mg lidocaine 1 % (XYLOCAINE) injection ONE TIME PRN, Starting on Tue01/01/25 at 1336, Until Tue01/01/25 at 1405, Routine, Intra-Procedure (Invasive Cardiology) Given 01/01/2025 1:36 PM CDT 5 mL metoprolol tartrate (LOPRESSOR) [...] (VERSED) injection ONE TIME PRN, Starting on Tue01/01/25 at 1333, Until Tue01/01/25 at 1405, Routine, Intra-Procedure (Invasive Cardiology) Given 01/01/2025 1:33 PM CDT 2 mg naloxone (NARCAN) 0.4 [...] - Take 10 mg by mouth daily. 09 (Given - Provider: Cristal Phillips RN) 1556 [...] 911 (Given - Provider: Cristal Phillips RN) 1515 (Canceled Entry - Provider: Vasquez Borrego RN - Comment: given in director labor standards) 0910 (Given - Provider: Lacy L Proetel, RN) atorvastatin (LIPITOR) tablet 80 mg 80 [...] 911 (Given - Provider: Cristal Phillips RN) 1515 (Canceled Entry - Provider: Vasquez Borrego RN - Comment: given in director labor standards) 09 (Given - Provider: Vangie Malhotra RN) dextrose [...] RN)1419 (Given - Provider: Vangie Malhotra RN) glucagon HCL 1 mg/mL injection 1 mg [...] Vangie Malhotra RN)1419 (Given - Provider: Vangie Malhotra, TRACI) insulin glargine (LANTUS) injection 15 Units 15 [...] on Tue12/28/24 at 0800, Until Discontinued, Routine 07 (Not Given - Provider: Cristal Phillips RN [...] Edwards LPN) 1555 (Given - Provider: Miranda Vaca, TRACI)2025 (Given - Provider: Grace Farnsworth, TRACI) 0910 (Given - Provider: Vangie Malhotra, TRACI) morphine 4 mg/mL injection 4 mg [...] Cristal Phillips RN)1138 (Applied - Provider: Cristal Phillips, TRACI)1729 (Applied - Provider: Cristal Phillips, TRACI)2329 (Removed - Provider: Jacqueline Edwards LPN)2358 (Applied - Provider: Jacqueline Edwards, CORRECTIVE THERAPIST) 0510 (Applied - Provider: Jacqueline Edwards, CORRECTIVE THERAPIST)1110 (Removed - Provider: Miranda Vaca, RN)1200 (Not Given - Provider: Miranda Vaca RN - Reason: Patient off unit)1730 (Refused - Provider: Miranda Vaca, TRACI) 0000 (Refused - Provider: Grace Farnsworth, TRACI)0600 (Refused - Provider: Grace Farnsworth, TRACI)1200 (Refused - Provider: Vangie Malhotra, TRACI) sodium chloride 0.9 % flush bag 25 [...] LPN) 155 (Given - Provider: Miranda Vaca RN)2025 (Given - Provider: Grace Farnsworth, TRACI) 09 (Given - Provider: Vangie Malhotra, TRACI) sodium chloride flush injection 10 [...] Edwards LPN) 1910 (Given - Provider: Miranda Vaca RN) aspirin (SHILA) tablet (CANCELED) ONE TIME PRN, [...] (Invasive Cardiology) 1436 (Given - Provider: John Mcgraw, TRACI) midazolam (VERSED) injection (CANCELED) ONE TIME PRN, [...] Provider: Cristal Phillips RN - Comment: CP 01/03) sennosides-docusate sodium (SENNA-S) 8.6-50 mg per [...]
[2025-01-02] VITALS (7 sets, daily range): BP systolic 102–162; BP diastolic 52–86; PULSE 73–79; RESP 13–18; TEMP 36.4; O2SAT 13–99; BMI 31.4
--- NOTE | 2025-01-02 15:28 | ECG_ITS ---
[facility] Test Date: 2025-01-02 Pat Name: Cam Trinh Department: Room: Gender: Male Surface Supply Breathing Apparatus: : 1960 Requested By: Henrik Lam Order Number: [id number] Gatica MD: Jeffry Pugh M.D. Measurements Intervals Lagrange Rate: 73 P: 59 CT: 186 QRS: -52 QRSD: 134 T: 66 QT: 404 QTc: 447 Interpretive Statements SINUS RHYTHM INTRAVENTRICULAR CONDUCTION DELAY [130+ ms QRS DURATION] MODERATE VOLTAGE CRITERIA FOR LVH, CONSIDER NORMAL VARIANT [MEETS CRITERIA IN ONE OF: R(aVL), S(V1), R(V5), R(V5/V6)+S(V1)] POSSIBLE SEPTAL MYOCARDIAL INFARCTION , OF INDETERMINATE AGE [30 ms Q WAVE IN V1/V2] Compared to ECG 12/10/2024 17:54:20 Ventricular premature complex(es) no longer present Myocardial infarct finding still present Electronically Signed On 01-02-2025 20:00:53 CDT by Jeffry Pugh M.D. [id number]
--- OUTSIDE RECORDS SUMMARY | 2025-01-02 15:49 | XMS_ITS | Encounter Summary ---
Author Organization [facility] Address 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 Gender Identity Not on file Sexual Orientation Not on file documented as of this encounter Plan of Treatment Upcoming Encounters Date Type Department Care Team (Late Contact Info) Description 01/04/2025 6:30 AM CDT Appointment [facility] [address] [place] [address] 01/15/2025 1:30 PM CDT Office Visit [facility] Vascular Surgery [place] [address] [place] [address] Davion Mcconnell MD [address] [place] [address] Esme Vail MD [address] [place] [address] 08/28/2025 1:00 PM ASSISTANT MEDIA PLANNER Office Visit [facility] Neurosurgery [address] [place] [address] [place] [address] Adali Hammond, SUSAN [address] [place] [address] documented as of this encounter Visit Diagnoses Not on filedocumented in this encounter
--- OUTSIDE RECORDS SUMMARY | 2025-01-02 15:49 | XMS_ITS | Encounter Summary ---
Author Organization [facility] Address [address] [place] [address] Care Team Providers Care Central Melt Specialist Name Role Phone Unavailable Primary Care Provider Unavailabl e Reason for Visit * Reason Onset Date Comments Appointment Notification 01/02/2025 Encounter Details Date Type Department Care Team (Late st Contact Info) Description 01/02/2025 Telephone [facility] [address] [facility] [address] [place] [address] Nabil Blue MD [address] [facility] [address] [place] [address] Appointment Notification Social History Tobacco Use Types Packs/Day Years [...] on file 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 Pt said that he was going to be moving out of [place] within the next week or two and would be finding a new merchandise planning manager where he is moving to. He did not wish to schedule this appt with us. Phone call was disconnected. * Telephone Encounter - JezCathyGiselasalomón Szymanski - 01/02/2025 8:54 AM CDT ----- Message from Komal Crowder sent at 01/02/2025 8:07 AM CDT ----- Nicholas Blue attested the consult and Samir did the cath thanks ----- Message ----- From: Vangie Malhotra RN Sent: 01/01/2025 3:07 PM CDT To: [facility] Cardiology [facility] Char Dust Cleaner And Salvager Please call pt for 2-4 week follow up per cardiology note documented in this encounter Plan of Treatment Upcoming Encounters Date Type Department Care Team (Late st Contact Info) Description 01/04/2025 6:30 AM CDT Appointment [facility] Zaida [place] [place] [address] 01/15/2025 1:30 PM CDT Office Visit [facility] Vascular Surgery [place] [address] [address] Davion Mcconnell MD [address] [address] Esme Vail MD [address] [address] 08/28/2025 1:00 PM SUPERVISOR SCENIC ARTS Office Visit [facility] Neurosurgery [address] [place] [address] Adali Hammond PA [address] [place] [address] documented as of this encounter Visit Diagnoses Not on filedocumented in this encounter
--- OUTSIDE RECORDS SUMMARY | 2025-01-02 15:50 | XMS_ITS | Encounter Summary ---
Author Organization [facility] Address 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 Gender Identity Not on file Sexual Orientation Not on file documented as of this encounter Plan of Treatment Upcoming Encounters Date Type Department Care Team (Late Contact Info) Description 01/04/2025 6:30 AM CDT Appointment [facility] [address] [place] [address] 01/15/2025 1:30 PM CDT Office Visit [facility] Vascular Surgery [place] [address] [place] [address] Davion Mcconnell MD [address] [place] [address] Esme Vial MD [address] [place] [address] 08/28/2025 1:00 PM PRODUCTION PLANNING MANAGER Office Visit [facility] Neurosurgery [address] [place] [address] [place] [address] Adali Hammond, SUSAN [address] [place] [address] documented as of this encounter Visit Diagnoses Not on filedocumented in this encounter
--- OUTSIDE RECORDS SUMMARY | 2025-01-02 15:50 | XMS_ITS | Patient Health Record ---
Author Organization [facility] Asya mejia Billing Info Address [address] [place] [address] Care Team Providers Care Appliance Parts Counter Clerk Name Role Phone [place] Unavailable [phone] RADHA DORSEY [phone] Reason For Referral No Information Encounters Encounter Location Date Provider Diagnosis [id number] [address] [place] [address] [id number] 03/28/2024 SIRIA MANCIABURN [id number] [address] [place] [address] [id number] 03/30/2024 SIRIA MANCIABURN [id number] [address] [place] [address] [id number] 05/03/2024 SIRIA MANCIABURN [id number] [address] [place] [address] [id number] 05/03/2024 SIRIA MANCIABURN [id number] [address] [place] [address] [id number] 05/04/2024 RADHA DORSEY [id number] [facility] [address] [place] [address] [id number] 05/07/2024 RADHA DORSEY [id number] [address] [place] [address] [id number] 05/08/2024 RADHA DORSEY [id number] [address] [place] [address] [id number] 05/09/2024 RADHA DORSEY [id number] [address] [place] [address] [id number] 05/10/2024 RADHA DORSEY [id number] [facility] [address] [place] [address] [id number] 05/11/2024 RADHA DORSEY [id number] [address] [place] [address] [id number] 05/14/2024 RADHA DORSEY [id number] [facility] [address] [place] [address] [id number] 05/21/2024 RADHA DORSEY [id number] [facility] [address] [facility] [address] [place] [id number] 04/02/2024 RADHA DORSEY [id number] [facility] [address] [place] [address] [id number] 04/03/2024 RADHA DORSEY [id number] [facility] [address] [facility] [address] [place] [id number] 04/04/2024 RADHA DORSEY [id number] [facility] [address] [place] [address] [id number] 04/05/2024 RADHA DORSEY [id number] [facility] [address] [place] [address] [id number] 04/10/2024 RADHA DORSEY [id number] [facility] [address] [place] [address] [id number] 03/29/2024 RADHA DORSEY [id number] [address] [place] [address] [id number] 03/30/2024 RADHA DORSEY [id number] MEDICAL CENTER OF [facility] [address] [place] [address] [id number] 03/27/2024 RADHA DORSEY [id number] [facility] [address] [place] [address] [id number] 03/28/2024 RADHA DORSEY Plan Of Treatment No Information Insurance Providers Payer Name Payer Address Payer Phone Subscriber Number Group Number Insured Name Patient Relationship to Insured Coverage Start Date Coverage End Date [employer] HMO MEDICARE ADVG PLAN [address] [place], [place] [id number] Cam Higuera Self - patient is the insured 4 4
--- OUTSIDE RECORDS SUMMARY | 2025-01-02 15:50 | XMS_ITS | Encounter Summary ---
Author Organization [facility] Address [address] [facility] Attn: Epic Prelude ADT FRANKIE DRAKE [address] Care Team Providers Care Video Production Assistant Name Role Phone Unavailable Primary Care Provider Unavailabl e Encounter Details Date Type Department Care Team (Latest Contact Info) Description 12/28/2024 Travel Social History Tobacco Use Types Packs/Day Years [...] on file Legal Sex Male 6:32 AM HANGER Gender Identity Not on file Sexual Orientation Not on file documented as of this encounter Plan of Treatment Upcoming Encounters Date Type Department Care Team (Late st Contact Info) Description 01/04/2025 6:30 AM CDT Appointment [facility] Dialysis [address] [place] [address] 01/15/2025 1:30 PM CDT Office Visit [facility] Vascular Surgery [place] [address] [place] [address] Davion Mcconnell MD [address] [place] [address] Esme Vail MD [address] [place] [address] 08/28/2025 1:00 PM HANGER Office Visit [facility] Neurosurgery [address] [place] [address] [place] [address] Adali Hammond PA [address] [place] [address] documented as of this encounter Visit Diagnoses Not on filedocumented in this encounter
--- OUTSIDE RECORDS SUMMARY | 2025-01-02 15:50 | XMS_ITS | Encounter Summary ---
Author Organization [facility] Address 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 Mcconnell. Could not lvm, mailbox full. documented in this encounter Plan of Treatment Upcoming Encounters Date Type Department Care Team (Late st Contact Info) Description 01/04/2025 6:30 AM CDT Appointment [facility] [address] [place] [address] 01/15/2025 1:30 PM CDT Office Visit [facility] Vascular Surgery [place] [address] [place] [address] Davion Mcconnell MD [address] [place] [address] Esme Vail MD [address] [place] [address] 08/28/2025 1:00 PM ROBOTICS MECHANIC Office Visit [facility] Neurosurgery [address] [place] [address] [place] [address] Adali Hammond PA [address] [place] [address] documented as of this encounter Visit Diagnoses Not on filedocumented in this encounter
--- OUTSIDE RECORDS SUMMARY | 2025-01-02 15:50 | XMS_ITS | Encounter Summary ---
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 [address] 01/15/2025 1:30 PM CDT Office Visit [facility] Vascular Surgery [place] [address] [place] [address] Davion Mcconnell MD [address] [place] [address] Esme Vail MD [address] [place] [address] 08/28/2025 1:00 PM ELECTRONIC DEVICE REPAIRER Office Visit [facility] Neurosurgery [address] [place] [address] [place] [address] Adlai Hammond PA [address] [place] [address] documented as of this encounter Visit Diagnoses Not on filedocumented in this encounter Additional Health Concerns Assessment Noted Time PHQ-9 Depression Total Score: 2 10/21/19 25 4:44 PM CDT documented as of this encounter
--- OUTSIDE RECORDS SUMMARY | 2025-01-02 15:50 | XMS_ITS | Clinical Summary ---
Author Organization 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 Active aspirin (ECOTRIN EC) 81 mg Tablet, Delayed Release (E.C.) Take 81 mg by mouth daily. Active metoprolol tartrate (LOPRESSOR) 50 mg tablet Take 50 mg by mouth 2 times daily. Active insulin glargine (LANTUS) 100 unit/mL injection Inject 20 Units by subcutaneous injection daily with breakfast. Active insulin aspart U-100 (NovoLOG) 100 unit/mL vial Inject 0-6 Units by subcutaneous injection daily. Active atorvastatin (LIPITOR) 80 mg tablet Take 80 mg by mouth daily at bedtime. Active valsartan (DIOVAN) 160 mg tablet Take 160 mg by mouth daily in the morning. Active acetaminophen (TYLENOL) 500 mg Capsule Take 1 Capsule (500 mg) by mouth every 6 hours as needed for Pain, Severe or Pain, Moderate. 30 Capsule 10/24/19 25 Active gabapentin (NEURONTIN) 300 mg capsuleIndication s:Degeneration of intervertebral disc of lumbar region with discogenic back pain and lower extremity pain,Lumbar disc herniation with radiculopathy Take 1 Capsule (300 mg) by mouth 3 times daily. 90 Capsule 3 12/27/19 25 Active amLODIPine (NORVASC) 10 mg tablet Take 1 Tablet by mouth daily. 12/13/19 25 Active nitroglycerin (NITROSTAT) 0.4 mg Tablet, Sublingual Place 0.4 mg under tongue every 5 minutes as needed for Chest Pain. 12/12/19 25 Active BD Malaika 2nd Gen Pen Needle 32 gauge x Needle Inject 2 Each by subcutaneous injection 3 times daily as needed for Other (See Comment) (check blood sugar). 10/30/19 25 Active hydrALAZINE (APRESOLINE) 100 mg Tablet tablet Take 100 mg by mouth every 8 hours. Active isosorbide mononitrate (IMDUR) 30 mg Extended Release 24 hour tablet Take 1 Tablet (30 mg) by mouth daily. 30 Tablet 2 01/03/20 25 Active amLODIPine (NORVASC) 5 mg tablet Take 10 mg by mouth daily. 08/10/19 25 025 Discontinu ed(Alterna te therapy prescribed ) albuterol sulfate HFA 90 mcg/actuation aerosol inhaler Take 2 Puffs by inhalation every 6 hours as needed. 03/01/20 24 025 Discontinu ed(Alterna te therapy prescribed ) hydrALAZINE (APRESOLINE) 50 mg tablet Take 1 Tablet (50 mg) by mouth 3 times daily. 2 tablets 3 times a day. 90 Tablet 10/24/19 25 025 Discontinu ed(Alterna te therapy prescribed ) oxyCODONE-acetami nophen (PERCOCET) 5-325 mg tabletIndications :ESRD on hemodialysis ([facility]) Take 1 Tablet by mouth every 4 hours as needed for Pain, Moderate. Max Daily Amount: 6 Tablets 15 Tablet 11/06/19 25 025 Discontinu ed(Alterna te therapy prescribed ) Hospital, Clinic, or Other Facility Administered Medication Ordered Dose Route Frequency Start Date End Date Status ciprofloxacin HCl (CIPRO) tablet 500 mgIndications:S/P cystoscopy 500 mg Oral ONE TIME ONLY 11/29/2024 01/01/2025 Discontinue d Active Problems Problem Noted Date Diagnosed Date Acute chest pain 12/29/2024 Elevated troponin 12/29/2024 Stable angina 12/28/2024 Chronic anemia 12/28/2024 ESRD (end stage renal disease) on dialysis 12/28 Ischemic dilated cardiomyopathy 12/28/2024 Weakness of right upper extremity 10/22/2024 Weakness of right lower extremity 10/21/2024 ESRD on hemodialysis 10/20/2024 Lumbar radiculopathy, acute 10/20/2024 Syncope 10/20/2024 Atherosclerosis of [place] co ronary artery of [place] heart without angina pectoris 10/20/2024 History of coronary artery stent placement 10/20 Hypertensive urgency 10/20/2024 History of stroke without residual deficits 09/26 Carpal tunnel syndrome, right 10/20/2024 Chronic combined systolic an d diastolic CHF (congestive heart failure) 10/20/2024 Spinal stenosis of lumbar re gion with neurogenic claudication 10/20/2024 Hyperglycemia due to diabetes mellitus Elevated d-dimer 10/12/2023 Large pleural effusion 10/12/2023 NSTEMI (non-ST elevated myocardial infarction) 0 09/08/2023 Type 2 diabetes mellitus with hyperglycemia 01/2024 Acute on chronic congestive heart failure 2023 Accelerated hypertension 09/02/2023 TIA (transient ischemic attack) 09/03/2020 Essential hypertension 03/09/2017 Diabetic polyneuropathy asso ciated with type 2 diabetes mellitus 01/04/2017 GERD (gastroesophageal reflux disease) 3 Mixed hyperlipidemia 06/04/2010 Overview (09/02/2023): Identified By: Cayden Joyce Resolved Problems Problem Noted Date Diagnosed Date Resolved Date Acute right-sided weakness 10/20/2024 0 12/28/2024 Encounters Date Type Department Care Team Description 01/02/2025 Telephone [facility] [address] [facility] [address] [place] [address] Nabil Blue MD Appointment Notification 01/01/2025 1:30 PM CDT - 01/01/2025 2:40 PM CDT Surgery [facility] [address] [place] [phone] Davion Mcconnell MD Fistulogram 01/01/2025 External Device Data STL ABSTRACTION Provider, Abstract 01/01/2025 External Device Data STL ABSTRACTION Provider, Abstract 12/31/2024 2:15 PM CDT - 12/31/2024 3:10 PM CDT Surgery [facility] [address] [place] [phone] Nikki Dawson DO Left heart cath 12/31/2024 Telephone [facility] Vascular Surgery [place] [address] [place] [phone] Davion Mcconnell MD surgery confirmation 12/28/2024 12:52 AM CDT - 01/01/2025 4:39 PM CDT Hospital Encounter [facility] 4A Cardiac [address] [place] [phone] Richard Esparza MD Sundaram, MD Wesly Lobato, MD Lucina Calabrese, Phil Mai MD NSTEMI (non-ST elevated myocardial infarction) (CMS/HCC) Discharge Disposition: Home or Self Care 12/28/2024 12:45 AM CDT - 12/28/2024 11:59 PM CDT Hospital Encounter [facility] [address] [place] [phone] Ambulance, [facility] Discharge Disposition: [facility] 12/28/2024 Travel 12/27/2024 7:56 PM CDT - 12/27/2024 11:58 PM CDT Emergency [facility] Emergency Medicine [address] [place] [phone] Олег Dailey MD NSTEMI (non-ST elevated myocardial infarction) (CMS/HCC) (Primary Dx) Discharge Disposition: Acute Care Hospital 12/27/2024 Travel 12/26/2024 1:00 PM CDT Office Visit [facility] Neurosurgery [address] [place] [phone] Adali Hammond PA Degeneration of intervertebral disc of lumbar region with discogenic back pain and lower extremity pain (Primary Dx); Lumbar disc herniation with radiculopathy; Diabetic polyneuropathy associated with type 2 diabetes mellitus ([facility]); ESRD on hemodialysis ([facility]); Neuropathy; History of non-ST elevation myocardial infarction (NSTEMI) 12/25/2024 External Device Data STL ABSTRACTION Provider, Abstract 12/20/2024 Telephone [facility] Vascular Surgery [address] [phone] Davion Mcconnell MD Surgery Talk 12/20/2024 Telephone [facility] Vascular Surgery [address] [phone] Davion Mcconnell MD Surgery Talk 12/20/2024 Orders Only [facility] Vascular Surgery [address] [phone] Davion Mcconnell MD Encounter for pre-operative laboratory testing (Primary Dx); ESRD (end stage renal disease) ([facility]); Abnormal coagulation profile 12/18/2024 1:30 PM CDT Office Visit [facility] Vascular Surgery [address] [phone] Esme Vail MD ESRD (end stage renal disease) ([facility]) (Primary Dx) 12/18/2024 12:00 PM CDT Ancillary Procedure [facility] [phone] Esme Vail MD ESRD (end stage renal disease) ([facility]); S/P arteriovenous (AV) fistula creation 12/18/2024 External Device Data STL ABSTRACTION Provider, Abstract 11/29/2024 10:00 AM CDT Office Visit [facility] Urology- [address] 3[address] [place] [address] Ella Loya FNP Renal cyst (Primary Dx); Enlarged prostate; Abnormal bladder cytology; S/P cystoscopy 11/20/2024 2:45 PM CDT Office Visit [facility] Vascular Surgery [address] [place] [phone] Esme Vail MD ESRD (end stage renal disease) ([facility]) (Primary Dx) 11/16/2024 Telephone [facility] Vascular Surgery [address] [place] [phone] Provider, Abstract Appointment Verification 11/13/2024 8:15 AM CDT - 11/13/2024 11:59 PM CDT Hospital Encounter [facility] CT Scan [place] [address] [place] [phone] Ella Loya FNP Discharge Disposition: Home or Self Care 11/13/2024 Results Follow-Up [facility] Urology- [place] [address] [address] [facility] [address], 3rd [place] [phone] URINARY CALCULI WO CONTRAST 11/08/2024 Orders Only [facility] Vascular Surgery [address] [phone] Esme Vail MD ESRD (end stage renal disease) ([facility]) (Primary Dx); S/P arteriovenous (AV) fistula creation 11/06/2024 External Device Data STL ABSTRACTION Provider, Abstract 11/05/2024 10:46 AM CDT - 11/05/2024 12:51 PM CDT Surgery [facility] Operating Room [address] [place] [address] Esme Vail MD ARTERIOVENOUS GRAFT INSERTION 11/05/2024 10:44 AM CDT Anesthesia Event [facility] Operating Room [facility] [place] [phone] Jay Jay Patterson MD 11/05/2024 5:39 AM CDT - 11/05/2024 6:29 PM CDT Hospital Encounter [facility] 3J Pre-Op [address] [place] [phone] Esme Vail MD End stage renal disease ([facility]) Discharge Disposition: Home or Self Care 11/02/2024 Prep for Surgery [facility] Vascular Surgery [address] [place] [phone] Esme Vail MD ESRD (end stage renal disease) (CMS/HCC) (Primary Dx) 10/29/2024 Telephone [facility] Vascular Surgery [address] [place] [phone] Esme Vail MD Question 10/25/2024 8:00 AM CDT Telephone Check Up [facility] Urology- [place] [address] 3rd [place] [phone] Ella Loya, [employer] Kidney stone (Primary Dx); Renal cyst 10/23/2024 External Device Data STL ABSTRACTION Provider, Abstract 10/23/2024 External Device Data STL ABSTRACTION Provider, Abstract 10/23/2024 External Device Data STL ABSTRACTION Provider, Abstract 10/20/2024 12:42 PM CDT - 10/23/2024 1:04 PM CDT Hospital Encounter [facility] 6CD Neurology [address] [place] [place] [phone] Davion Simon MD Sundaram, Vignesh, MD Raavi, Tapasya, MD Lumbar radiculopathy, acute Discharge Disposition: Home or Self Care 10/20/2024 10:00 AM CDT - 10/20/2024 11:59 PM CDT Hospital Encounter [facility] Emergency Medical Services [place] [address] [place] [address] Ambulance, [facility] Discharge Disposition: [facility] 10/20/2024 - 10/20/2024 11:59 PM CDT Hospital Encounter [facility] [address] [place] [phone] Ambulance, [facility] Discharge Disposition: [facility] 10/20/2024 Travel 10/16/2024 External Device Data STL ABSTRACTION Provider, Abstract 10/09/2024 Telephone [facility] Vascular Surgery [place] [address] [place] [address] Esme Vail MD Surgery Talk from Last 3 Months Immunizations Immunization Administration Dates Next Due (ADACEL/BOOSTRIX)(10 YR UP) TDAP VACCINE, 0.5ML, IM 07/19/2015,01/06/2007 (PFIZER)(12 YR UP) COVID-19 VACCINE - EMERGENCY USE AUTHORIZATION, MRNA, [id number](PF) 30 MCG/0.3 ML IM SUSP 11/03/2020,10/13/2020 (PNEUMOVAX 23)(50 YRS UP) PN EUMOCOCCAL POLYSACCHARIDE (PPV23) 0.5 ML, IM 03/09/2017 Hepatitis B Vaccine 01/06/2007 INFLUENZA VACCINE HIGH DOSE QUADRIVALENT 65 YR UP PF IM 03/08/2016 INFLUENZA VACCINE QUADRIVALE NT 6 MOS UP IM 03/08/2016 INFLUENZA VACCINE QUADRIVALE NT 6 MOS UP PF IM 03/09/2017 Influenza Seasonal Unspecifi ed Formulation IM 04/19/2006 Influenza Seasonal Unspecifi ed Formulation PF IM 04/19/2006 Influenza, Unspecified Formulation 05/05/2014 Td(adult) Unspecified Formulation 2021,03/12/2022,11/03/2021,05/25 Family History Medical History Relation Name Comments [...] on file 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 Office Visit [facility] Neurosurgery [address] [place] [address] Adali Hammond PA [address] [place] [address] Health Maintenance Due Date Last Done Comments [...] - Risk 60-74 years 1-dose series) 2021 COVID-19 Vaccine (3 - 2023-2 5 season) 2024 11/03/2020, 10/13/2020 INFLUENZA VACCINE (#1) 2025 7, 03/08/2016, 03/08/2016, Additional history exists DIABETES HBA1C Q 6 MONTHS 05/30/20252024, 10/20/2024, 01/22/2024, Additional history exists LDL CHOLESTEROL ANNUAL 12/28/2025 12/28/2024, 2023 DTAP/TDAP/TD VACCINES (7 - T d or Tdap) 04/16/2032 04/16/2022, 03/12/2022, 11/03/2021, Additional history exists Abdominal Aortic Aneurysm (A AA) Screening Completed 02/22/2024, 02/22/2024, 03/18/2015 Medical Devices Implanted Type Area Individual Pension Consultant Device Identifier Shelf Expiration Date Model / Serial / Lot Clip Ligating Horizon Red [id number] - Csc - [id number] Implanted:Qty: 1 on 11/05/2024 by Esme Vail MD at [facility] Clip Left: Arm [employer] [id number] 05/23/2029 [id number] / / [id number] Clip Ligating Horizon Med Ti [id number] - Csc - [id number] Implanted:Qty: 1 on 11/05/2024 by Esme Vail MD at [facility] Clip Left: Arm [employer]LE[employer]- [employer] S[employer] [id number] 05/11/2029 [id number] / / [id number] Graft Vasc Propaten [id number] - [id number] Implanted:Qty: 1 on 11/05/2024 by Esme Vail MD at [facility] Graft Left: Arm [employer] [id number] 06/28/2027 [id number] / [id number] / Procedures Procedure Name Priority Date/Time Associated Diagnosis Comments TELEMETRY REPORT 01/02/2025 2:39 AM CDT EKG 12-LEAD Routine 01/01/2025 2:45 PM CDT Procedure Note - Ash Wheat MD - 01/01/2025 2:45 PM CDTThis note is in progress. [address] [address] Test Date: 2025-01-01 Pat Name: IDA MORELOS Department: 12 Room: [address] [place] [address] Gender: Male Healthcare Management Consultant: [id number] : 1960 Requested By: Order Number: [id number] Reading MD: Measurements Intervals Perry Rate: 65 P: 0 CO: 0 QRS: -48 QRSD: 120 T: 55 QT: 412 QTc: 428 Interpretive Statements Wide QRS rhythm Left axis deviation Anteroseptal infarct, age undetermined Abnormal ECG CL FISTULOGRAM Routine 01/01/2025 1:57 PM CDT End stage renal disease (CMS/HCC) POC GLUCOSE Routine 01/01/2025 11:28 AM CDT POC GLUCOSE Routine 01/01/2025 7:03 AM CDT COMPREHENSIVE METABOLIC PANEL Routine 01/01/2025 1:38 AM CDT CBC WITH DIFFERENTIAL Routine 01/01/2025 1:38 AM CDT UNFRACTIONATED HEPARIN ACTIVITY Routine 01/01/2025 1:38 AM CDT POC GLUCOSE [...] POC GLUCOSE Routine 12/31/2024 7:05 AM CDT BASIC METABOLIC PANEL Routine 12/31/2024 4:42 AM CDT CBC WITH DIFFERENTIAL Routine 12/31/2024 4:42 AM CDT UNFRACTIONATED HEPARIN ACTIVITY Timed Study 12/31/2024 4:42 AM CDT CBC WITHOUT DIFFERENTIAL Routine 12/30/2024 11:36 PM CDT TROPONIN 6 HR, 5TH GEN Timed Study 12/30/2024 11:36 PM CDT POC GLUCOSE Routine [...] ACTIVITY Timed Study 12/30/2024 5:22 AM CDT BASIC METABOLIC PANEL Routine 12/30/2024 5:22 AM CDT CBC WITH DIFFERENTIAL Routine 12/30/2024 5:22 AM CDT POC GLUCOSE Routine 12/30/2024 1:55 AM CDT POC GLUCOSE Routine 12/29/2024 8:53 PM CDT POC GLUCOSE Routine 12/29/2024 4:49 PM CDT POC GLUCOSE Routine 12/29/2024 11:27 AM CDT UNFRACTIONATED HEPARIN ACTIVITY Timed Study 12/29/2024 10:35 AM CDT POC GLUCOSE Routine 12/29/2024 7:39 AM CDT UNFRACTIONATED HEPARIN ACTIVITY Timed Study 12/29/2024 4:37 AM CDT BASIC METABOLIC PANEL Routine 12/29/2024 4:37 AM CDT CBC WITH DIFFERENTIAL Routine 12/29/2024 4:37 AM CDT UNFRACTIONATED HEPARIN [...] LIPID RFLX Stat 12/28/2024 1:09 AM CDT TSH Stat 12/28/2024 1:09 AM CDT UNFRACTIONATED HEPARIN ACTIVITY Stat 12/28/2024 1:09 AM CDT BASIC METABOLIC PANEL Stat 12/28/2024 1:09 AM CDT PTT Stat 12/28/2024 1:09 AM CDT PROTIME-INR Stat 12/28/2024 1:09 AM CDT CBC WITH DIFFERENTIAL Stat 12/28/2024 1:09 AM CDT TROPONIN 2 HR, 5TH GEN Timed Study 12/27/2024 9:36 PM CDT XR CHEST PA OR AP 1 VW Stat 12/27/2024 8:28 PM CDT PTT Stat 12/27/2024 8:05 PM CDT BRAIN NATRIURETIC PEPTIDE, BNP OR PROBNP Stat 12/27/2024 8:05 PM CDT EXTRA TUBE (BLUE) Stat 12/27/2024 8:0 5 PM CDT EXTRA TUBE Stat 12/27/2024 8:05 PM CDT COMPREHENSIVE METABOLIC PANEL Stat 12/27/2024 8:05 PM CDT CBC WITH DIFFERENTIAL Stat 12/27/2024 8:05 PM CDT TROPONIN BASELINE, 5TH GEN Stat 12/27/2024 8:[address] URINARY CALCULI WO CONTRAST Routine 11/13/2024 8:45 AM CDT Kidney stone CO CRTJ ARVEN FSTL XCP DIR ARVEN EVELINE NONAUTOG GRF 11/05/2024 10:46 AM CDT End stage renal disease (CMS/HCC) CBC WITHOUT DIFFERENTIAL Stat 11/05/2024 7:09 AM CDT BASIC METABOLIC PANEL Stat 11/05/2024 7:09 AM CDT TELEMETRY REPORT 10/24/2024 3:31 PM CDT POC GLUCOSE Routine 10/23/2024 7:12 AM CDT POC GLUCOSE Routine 10/22/2024 9:05 PM CDT POC GLUCOSE Routine 10/22/2024 5:35 PM CDT POC GLUCOSE Routine 10/22/2024 11:16 AM CDT HEMODIALYSIS Routine 10/22/2024 10:01 AM CDT POC GLUCOSE Routine 10/22/2024 7:39 AM CDT POC GLUCOSE Routine 10/22/2024 4:29 AM CDT MAGNESIUM LEVEL Routine 10/22/2024 3:17 AM CDT CBC WITH DIFFERENTIAL Routine 10/22/2024 3:17 AM CDT BASIC METABOLIC PANEL Routine 10/22/2024 3:17 AM CDT POC GLUCOSE Routine 10/21/2024 9:29 PM CDT POC GLUCOSE Routine 10/21/2024 5:37 PM CDT ECHOCARDIOGRAM W/ CONTRAST AGENT Routine 10/21/2024 1:29 PM CDT POC GLUCOSE Routine 10/21/2024 11:44 AM CDT POC GLUCOSE Routine 10/21/2024 7:41 AM CDT MAGNESIUM LEVEL Routine 10/21/2024 2:15 AM CDT CBC WITH DIFFERENTIAL Routine 10/21/2024 2:15 AM CDT BASIC METABOLIC PANEL Routine 10/21/2024 2:15 AM CDT POC GLUCOSE Routine 10/20/2024 11:27 PM CDT POC GLUCOSE Routine 10/20/2024 9:53 PM CDT EKG 12-LEAD Stat 10/20/2024 2:53 PM CDT XR CHEST PA OR AP 1 VW Stat 10/20/2024 2:06 PM CDT MRI LUMBAR WO CONTRAST Stat 10/20/2024 1:39 PM CDT MRI BRAIN WO CONTRAST Stat 10/20/2024 1:39 PM CDT HEMOGLOBIN A1C Stat 10/20/2024 1:00 PM CDT ETHANOL LEVEL Stat 10/20/2024 1:00 PM CDT PROTIME-INR Stat 10/20/2024 1:00 PM CDT COMPREHENSIVE METABOLIC PANEL Stat 10/20/2024 1:00 PM CDT CBC WITH DIFFERENTIAL Stat 10/20/2024 1:00 PM CDT from Last 3 Months Results * TELEMETRY REPORT (01/02/2025 2:39 AM CDT) Only the most recent of2 resultswithin the time period is included. us Provider Scanning ECG ORDERABLES Final Result * CL FISTULOGRAM (01/01/2025 1:57 PM CDT) Only the most recent of2 resultswithin the time period is included. 01/01/2025 1:17 PM CDT Narrative Esthela Mcknight RN - 01/01/2025 2:05 PM CDT Procedure was not performed by a Order Desk Clerk, please see Chart Review - Notes tab for operative report. us Davion Mcconnell MD CUP CATH ORDERABLES Final Resu lt * (ABNORMAL) POC GLUCOSE (01/01/2025 11:28 AM CDT) Only the most recent of29 resultswithin the time period is included. Pathologist [facility] GLUCOSE POC 145(H) 74 - 99 mg/dL 01/01/2025 11:28 AM CDT [facility] SPECIMEN SOURCE, GLUCOSE POC Capillary 01/01/2025 11:28 AM CDT [facility] Blood, whole 01/01/2025 11:2 8 AM CDT 01/01/2025 11:43 AM CDT Phil Verdugo MD POINT OF CARE TESTING Final Result Performing Organization Address [facility] Co de Phone Number [facility] CLIA # [id number] [address] [address] [place] [address] * UNFRACTIONATED HEPARIN MONITORING (01/01/2025 1:38 AM CDT) Only the most recent of9 resultswithin the time period is included. Pathologist [facility] ANTI-XA UNFRAC HEP <0.10 See Interpretation IU/mL 01/01/2025 2:01 AM CDT [facility] Blood Venipuncture / Unknown 01/01/2025 1:38 AM CDT 01/01/2025 1:45 AM CDT Narrative [facility] - 01/01/2025 2:01 AM CDT Therapeutic Range: PT/DVT Heparin Protocol 0.3 - 0.7 IU/ml Cardiac Heparin Protocol 0.3 - 0.6 IU/ml The reference range for this test is specific to the anticoagulant and is not appropriate for monitoring patients on a DOAC protocol. us Bharati Jarrell MD HEMATOLOGY ORDERABLES Final Resu lt Performing Organization Address City/[facility]/ZIP Co de Phone Number [facility] CLIA # [id number] [address] [address] [place] [address] * (ABNORMAL) CBC WITH DIFFERENTIAL (01/01/2025 1:38 AM CDT) Only the most recent of9 resultswithin the time period is included. Pathologist [facility] WBC 4.1(L) 4.8 - 10.8 K/uL 01/01/2025 1:51 AM [facility] RBC 3.20(L) 4.60 - 6.20 M/uL 01/01/2025 1:51 AM [facility] HEMOGLOBIN 9.2(L) 14.0 - 18.0 g/dL 01/01/2025 1:51 AM [facility] HEMATOCRIT 27.2(L) 41.0 - 53.0 % 01/01/2025 1:51 AM [facility] MCV 85.0 84.0 - 103.0 fL 01/01/2025 1:51 AM [facility] MCH 28.8 27.0 - 34.0 pg 01/01/2025 1:51 AM [facility] MCHC 33.8 30.0 - 35.0 g/dL 01/01/2025 1:51 AM [facility] PLATELETS 182 140 - 440 K/uL 01/01/2025 1:51 AM [facility] MPV 9.8 8.9 - 12.8 fL 01/01/2025 1:51 AM [facility] RDW 14.7(H) 11.0 - 14.5 % 01/01/2025 1:51 AM [facility] RDW-STDEV 45.8 37.0 - 54.0 fL 01/01/2025 1:51 AM [facility] NEUTROPHILS 56 42 - 75 % 01/01/2025 1:51 AM [facility] LYMPHOCYTES 33 24 - 44 % 01/01/2025 1:51 AM [facility] MONOCYTES 9 2 - 10 % 01/01/2025 1:51 AM [facility] EOSINOPHILS 1 0 - 7 % 01/01/2025 1:51 AM [facility] BASOPHILS 1 0 - 1 % 01/01/2025 1:51 AM [facility] IMMATURE GRANULOCYTES 0 0 - 2 % 01/01/2025 1:51 AM [facility] NEUTROPHIL ABSOLUTE 2.32 2.00 - 8.00 K/uL 01/01/2025 1:51 AM CDT [facility] LYMPHOCYTE ABSOLUTE 1.37 1.20 - 4.00 K/uL 01/01/2025 1:51 AM CDT [facility] MONOCYTE ABSOLUTE 0.38 0.10 - 0.60 K/uL 01/01/2025 1:51 AM CDT [facility] EOSINOPHIL ABSOLUTE 0.02 0.00 - 0.70 K/uL 01/01/2025 1:51 AM CDT [facility] BASOPHILS ABSOLUTE 0.04 0.00 - 0.20 K/uL 01/01/2025 1:51 AM CDT [facility] IMMATURE GRANULOCYTES ABSOLUTE 0.00 0.00 - 0.10 K/uL 01/01/2025 1:51 AM CDT [facility] SMEAR REVIEWED: NA - Not Applicable 01/01/2025 1:51 AM T [facility] Blood Venipuncture / Unknown 01/01/2025 1:38 AM CDT 01/01/2025 1:45 AM CDT us Phil Verdugo MD HEMATOLOGY ORDERABLES Final Result [facility] CLIA # [id number] [address] [place] [address] [id number] * (ABNORMAL) COMPREHENSIVE METABOLIC PANEL (01/01/2025 1:38 AM CDT) Only the most recent of3 resultswithin the time period is included. SODIUM 136 136 - 145 mmol/L 01/01/2025 2:27 AM CDT [facility] POTASSIUM 4.6 3.5 - 5.1 mmol/L 01/01/2025 2:27 AM CDT [facility] CHLORIDE 98 98 - 107 mmol/L 01/01/2025 2:27 AM CDT [facility] CO2 27 22 - 29 mmol/L 01/01/2025 2:27 AM [facility] CALCIUM 8.3(L) 8.8 - 10.2 mg/dL 01/01/2025 2:27 AM [facility] BUN 31(H) 8 - 23 mg/dL 01/01/2025 2:27 AM [facility] CREATININE 4.19(H) 0.67 - 1.17 mg/dL 01/01/2025 2:27 AM [facility] GLUCOSE 166(H) 74 - 99 mg/dL 01/01/2025 2:27 AM [facility] TOTAL PROTEIN 5.8(L) 6.4 - 8.3 g/dL 01/01/2025 2:27 AM [facility] ALBUMIN 3.2(L) 3.5 - 5.2 g/dL 01/01/2025 2:27 AM [facility] BILIRUBIN TOTAL 0.3 0.0 - 1.0 mg/dL 01/01/2025 2:27 AM [facility] ALKALINE PHOSPHATASE 88 40 - 129 U/L 01/01/2025 2:27 AM [facility] AST 17 10 - 50 U/L 01/01/2025 2:27 AM [facility] ALT 15 <=50 U/L 01/01/2025 2:27 AM [facility] GFR 15(L) >=60 mL/min/1. 73 sq meter 01/01/2025 2:27 AM [facility] Comment:eGFR calculated with 2020 CKD-EPI equation. Vegetarian diet, extremely high or low muscle mass, and may affect results. Cystatin C with Glomerular Filtration Rate is a suitable alternative for these patients. ANION GAP 11 9 - 20 mmol/L 01/01/2025 2:27 AM [facility] Blood Venipuncture / Unknown 01/01/2025 1:38 AM CDT 01/01/2025 1:45 AM T Phil Verdugo MD CHEMISTRY ORDERABLES Final Result Performing Organization Address [facility] Co de Phone Number [facility] CLIA # [id number] [facility] [address] [place] [address] * (ABNORMAL) POC ACTIVATED CLOTTING TIME (12/31/2024 3:07 PM CDT) [facility] ACTIVATED CLOTTING TIME POC 302(H) 116 - 140 sec 12/31/2024 3:07 PM CDT [facility] Blood 12/31/2024 3:07 PM CDT 12/31/2024 3:10 PM CDT Phil Verdugo MD POINT OF CARE TESTING Final Result Performing Organization Address [facility] Co de Phone Number [facility] CLIA # [id number] [facility] [address] * ACUTE HEPATITIS PANEL (12/31/2024 10:28 AM CDT) [facility] HEPATITIS B SURFACE AG NON-REACT JOSE Non-react jose 12/31/2024 11:25 AM CDT [facility] Comment:A non-reactive test result does not exclude the possibility of exposure to or infection with hepatitis B. HEPATITIS B CORE IGM NON-REACT JOSE Non-react jose 12/31/2024 11:25 AM CDT [facility] Comment:IgM antibodies to HB c were not detected; does not exclude the possibility of exposure to HBV. HEPATITIS A IGM Non-react jose Non-react jose 12/31/2024 11:25 AM CDT [facility] Comment:A negative test resu lt does not exclude the possibility of exposure to Hepatitis A virus. HEPATITIS C AB NON-REACT JOSE Non-react jose 12/31/2024 11:25 AM CDT [facility] Comment:Antibodies to HCV we re not detected, does not exclude the possibility of exposure to HCV. Blood Venipuncture / Unknown 12/31/2024 10:28 AM CDT 12/31/2024 10:33 AM CDT Jessica Luz NP CHEMISTRY ORDERABLES Final Resul t [facility] CLIA # [id number] [address] [place] [address] [place] [address] * (ABNORMAL) BASIC METABOLIC PANEL (12/31/2024 4:42 AM CDT) Only the most recent of7 resultswithin the time period is included. SODIUM 134(L) 136 - 145 mmol/L 12/31/2024 5:34 AM T [facility] POTASSIUM 4.6 3.5 - 5.1 mmol/L 12/31/2024 5:34 AM [facility] CHLORIDE 98 98 - 107 mmol/L 12/31/2024 5:34 AM T [facility] CO2 24 22 - 29 mmol/L 12/31/2024 5:34 AM T [facility] CALCIUM 8.7(L) 8.8 - 10.2 mg/dL 12/31/2024 5:34 AM T [facility] BUN 62(H) 8 - 23 mg/dL 12/31/2024 5:34 AM [facility] CREATININE 6.43(H) 0.67 - 1.17 mg/dL 12/31/2024 5:34 AM T [facility] GLUCOSE 199(H) 74 - 99 mg/dL 12/31/2024 5:34 AM [facility] GFR 9(L) >=60 mL/min/1. 73 sq meter 12/31/2024 5:34 AM [facility] Comment:eGFR calculated with 2020 CKD-EPI equation. Vegetarian diet, extremely high or low muscle mass, and may affect results. Cystatin C with Glomerular Filtration Rate is a suitable alternative for these patients. ANION GAP 12 9 - 20 mmol/L 12/31/2024 5:34 AM CDT [facility] Blood Venipuncture / Unknown 12/31/2024 4:42 AM CDT 12/31/2024 5:03 AM CDT Bharati Jarrell MD CHEMISTRY ORDERABLES Final Resul t Performing Organization Address City/[facility]/ZIP Co de Phone Number [facility] CLIA # [id number] [facility] [address] [place], [place] [id number] * (ABNORMAL) TROPONIN 6 HR, 5TH GEN (12/30/2024 11:36 PM CDT) Only the most recent of2 resultswithin the time period is included. TROPONIN T, 6 HR 5TH GEN 160(HH) <=15 ng/L 12/31/2024 12:35 AM CDT [facility] DELTA 6HR TROPONIN T % -2 See Interp. % 12/31/2024 12:35 AM CDT [facility] Blood Venipuncture / Unknown 12/30/2024 11:36 PM CDT 12/30/2024 11:44 PM CDT Narrative [facility] - 12/31/2024 12:35 AM CDT Troponin elevated. Delay in collection of timed specimen beyond recommended collection interval. Results must be interpreted in clinical context. Delta not changing. us Bharati Jarrell MD CHEMISTRY ORDERABLES Final Resul t Performing Organization Address City/[facility]/ZIP Co de Phone Number [facility] CLIA # [id number] [address] [address] [place] [address] * (ABNORMAL) CBC WITHOUT DIFFERENTIAL (12/30/2024 11:36 PM CDT) Only the most recent of2 resultswithin the time period is included. WBC 4.5(L) 4.8 - 10.8 K/uL 12/30/2024 11:44 PM CDT [facility] RBC 3.51(L) 4.60 - 6.20 M/uL 12/30/2024 11:44 PM CDT [facility] HEMOGLOBIN 10.0(L) 14.0 - 18.0 g/dL 12/30/2024 11:44 PM CDT [facility] HEMATOCRIT 30.6(L) 41.0 - 53.0 % 12/30/2024 11:44 PM CDT [facility] MCV 87.2 84.0 - 103.0 fL 12/30/2024 11:44 PM CDT [facility] MCH 28.5 27.0 - 34.0 pg 12/30/2024 11:44 PM CDT [facility] MCHC 32.7 30.0 - 35.0 g/dL 12/30/2024 11:44 PM CDT [facility] PLATELETS 209 140 - 440 K/uL 12/30/2024 11:44 PM T [facility] MPV 9.9 8.9 - 12.8 fL 12/30/2024 11:44 PM CDT [facility] RDW 14.7(H) 11.0 - 14.5 % 12/30/2024 11:44 PM T [facility] RDW-STDEV 47.2 37.0 - 54.0 fL 12/30/2024 11:44 PM T [facility] Blood Venipuncture / Unknown 12/30/2024 11:36 PM CDT 12/30/2024 11:42 PM CDT us Davion Mcconnell MD HEMATOLOGY ORDERABLES Final Re sult [facility] CLIA # [id number] [address] [place] [address] * (ABNORMAL) TROPONIN 2 HR, 5TH GEN (12/30/2024 7:17 PM CDT) Only the most recent of2 resultswithin the time period is included. TROPONIN T, 2 HR 5TH GEN 160(HH) <=15 ng/L 12/30/2024 8:00 PM CDT [facility] DELTA 2HR TROPONIN T % -2 See Interp. % 12/30/2024 8:00 PM CDT [facility] Blood Venipuncture / Unknown 12/30/2024 7:17 PM CDT 12/30/2024 7:23 PM CDT Narrative [facility] - 12/30/2024 8:00 PM CDT Troponin elevated. Delay in collection of timed specimen beyond recommended collection interval. Results must be interpreted in clinical context. Delta not changing. us Bharati Jarrell MD CHEMISTRY ORDERABLES Final Resul t Performing Organization Address City/[facility]/ZIP Co de Phone Number [facility] CLIA # [id number] [address] [place] [phone] * (ABNORMAL) TROPONIN BASELINE, 5TH GEN (12/30/2024 4:56 PM CDT) Only the most recent of2 resultswithin the time period is included. TROPONIN T, BASELINE 5TH GEN 163(HH) <=15 ng/L 12/30/2024 6:10 PM CDT [facility] Blood Venipuncture / Unknown 12/30/2024 4:56 PM CDT 12/30/2024 5:33 PM CDT Narrative [facility] - 12/30/2024 6:10 PM CDT Troponin elevated. us Bharati Jarrell MD CHEMISTRY ORDERABLES Final Resul t [facility] CLIA # [id number] [address] [address] * EKG 12-LEAD (12/30/2024 4:54 PM CDT) Only the most recent of3 resultswithin the time period is included. 12/30/2024 4:54 PM CDT Narrative INTERFACE SYSTEM - 12/31/2024 6:38 AM CDT [address] [address] Test Date: 2024-12-30 Pat Name: IDA MORELOS Department: 12 Room: [address] [place] [address] Gender: Male Healthcare Management Consultant: [id number] : 1960 Requested By: Order Number: [id number] Gavi NOYOLA: Neeta Tejeda Measurements Intervals Perry Rate: 61 P: 44 CO: 184 QRS: -56 QRSD: 122 T: 48 QT: 442 QTc: 444 Interpretive Statements Normal sinus rhythm Left axis deviation Septal infarct, age undetermined Abnormal ECG Electronically Signed On 12-31-2024 6:38:43 CDT by Neeta Tejeda Procedure Note Provider, Historical - 12/31/[address] [address] Test Date: 2024-12-30 Pat Name: IDA MORELOS Department: 12 Room: [address] [place] [address] Gender: Male Healthcare Management Consultant: [id number] : 1960 Requested By: Order Number: [id number] Gavi NOYOLA: Neeta Tejeda Measurements Intervals Perry Rate: 61 P: 44 CO: 184 QRS: -56 QRSD: 122 T: 48 QT: 442 QTc: 444 Interpretive Statements Normal sinus rhythm Left axis deviation Septal infarct, age undetermined Abnormal ECG Electronically Signed On 12-31-2024 6:38:43 CDT by Neeta Tejeda us Bharati Jarrell MD ECG ORDERABLES Final Result INTERFACE SYSTEM Refer to clinic/hospital department * ECHO COMPLETE - CONTRAST AND STRAIN IF INDICATED (12/28/2024 3:06 PM CDT) EJECTION FRACTION 50 INTERFACE SYSTEM 12/28/2024 2:30 PM CDT Narrative INTERFACE SYSTEM - 12/28/2024 4:43 PM CDT [facility] Echocardiography [place] [address] Transthoracic Echocardiography Patient: Ida Morelos Study ID: ECHO COMPLETE - Gene Gender: M : 1960 Age: 64 Room: [facility] Study 12/28/2024 Pt Inpatient Date: Status: Study 02:30:44 PM CSN #: [id number] Time: Ordering:Nabil Blue Marketing Administrative Assistant: Marcy Sauceda Indications and History: ME/ACS; Initial evaluation post ME. Summary and Conclusion: - Left ventricle: The [...] SV 65 ml Legend: (L) and (H) daren values outside specified reference range. [facility] are accredited with the Intersocietal Accreditation Commission - Echocardiography. Prepared and Electronically Authenticated Nabil Blue Confirmed 12/28/2024 16:43 Procedure Note Nabil Blue MD - 12/28/2024 [facility] [address] [place] [address] Transthoracic Echocardiography Patient: Ida Morelos Study ID: ECHOCOMPLETE - Gene Gender: M : 1960 Age: 64 Room: [facility] Study 12/28/2024 Pt Inpatient Date: Status: Study 02:30:44 PM [facility] #: [id number] Time: Ordering:Nabil Blue Marketing Administrative Assistant: Marcy Sauceda Indications and History: ME/ACS; Initial evaluation post ME. Summary and Conclusion: - Left ventricle: The [...] 2.57 cm^2 ESV/bsa, 1-p A4C 37 ml/m^2 SANHTOSH/bsa, VTI 1.15cm^2/m^2 SV/bsa, 1-p A4C 29 ml/m^2 [...] SV 65 ml Legend: (L) and (H) daren values outside specified reference range. [facility] are accredited with theAbrazo Central Campussoetal Accreditation Commission - Echocardiography. Prepared and Electronically Authenticated Nabil Blue Confirmed 12/28/2024 16:43 us Nabil Blue MD US ORDERABLES Jen jackson Result INTERFACE SYSTEM Refer to clinic/hospital department * XR CHEST PA OR AP 1 VW (12/28/2024 2:20 AM CDT) Only the most recent of3 resultswithin the time period is included. Anatomical Region Laterality Modality Chest Computed Radiogr [...] IMAGING ORDERABLE S Final Result * (ABNORMAL) LIPID RFLX (12/28/2024 1:09 AM CDT) CHOLESTEROL 122 <200 mg/dL 12/28/2024 6:02 AM T [facility] TRIGLYCERIDE 120 <150 mg/dL 12/28/2024 6:02 AM T [facility] HDL 32(L) 40 - 59 mg/dL 12/28/2024 6:02 AM T [facility] LDL CALCULATED 66 <100 mg/dL 12/28/2024 6:02 AM T [facility] NON-HDL CHOLESTEROL 90 <130 mg/dL 12/28/2024 6:02 AM [facility] Blood Venipuncture / Unknown 12/28/2024 1:09 AM CDT 12/28/2024 1:23 AM CDT Narrative [facility] - 12/28/2024 6:02 AM CDT TOTAL CHOLESTEROL [...] Harris MD CHEMISTRY ORDERABLES Final R esult [facility] # [id number] [address] [place] [address] * (ABNORMAL) PTT (12/28/2024 1:09 AM CDT) Only the most recent of2 resultswithin the time period is included. PTT 44.8(H) 24.8 - 37.2 seconds 12/28/2024 1:42 AM CDT [facility] Blood Venipuncture / Unknown 12/28/2024 1:09 AM CDT 12/28/2024 1:23 AM CDT [facility] - 12/28/2024 1:42 AM CDT Therapeutic Range: Hi-level PE/DVT heparin protocol 80.1 - 95.0 sec Lo-level PE/DVT heparin protocol 70.1 - 85.0 sec Cardiac Heparin Protocol 70.1 - 100.0 sec Richard Esparza MD HEMATOLOGY ORDERABLES Jen l Result [facility] CLIA # [id number] [facility] [address] * PROTIME-INR (12/28/2024 1:09 AM CDT) Only the most recent of2 resultswithin the time period is included. Pathologist [facility] PROTIME 14.4 12.7 - 14.9 Seconds 12/28/2024 1:42 AM CDT [facility] INR 1.1 0.8 - 1.2 12/28/2024 1:42 AM CDT [facility] Blood Venipuncture / Unknown 12/28/2024 1:09 AM CDT 12/28/2024 1:23 AM CDT [facility] - 12/28/2024 1:42 AM CDT Expected Values for INR: DVT/PE Goal INR 2.5; range 2.0 - 3.0 Valve Replacement Tissue Goal INR 2.5; range 2.0 - 3.0 Valve Replacement Mechanical Goal INR 3.0; range 2.5 - 3.5 POST-ME Goal INR 2.5; range 2.0 - 3.0 or Goal INR 3.0; range 2.5 - 3.5 Atrial Fibrillation Goal INR 2.5; range 2.0 - 3.0 Ischemic Stroke Goal INR 2.5; range 2.0 - 3.0 us Richard Esparza MD HEMATOLOGY ORDERABLES Jen l Result Performing Organization Address [facility] Co de Phone Number [facility] [employer] [facility] CLIA # [id number] [address] [address] [place] [address] * TSH (12/28/2024 1:09 AM CDT) TSH 3.23 0.27 - 4.20 uIU/mL 12/28/2024 5:59 AM CDT [facility] Blood Venipuncture / Unknown 12/28/2024 1:09 AM CDT 12/28/2024 1:23 AM CDT us Luis Alfredo Harris MD CHEMISTRY ORDERABLES Final R esult Performing Organization Address [facility] Co de Phone Number [facility] CLIA # [id number] [facility] [address] * EXTRA TUBE (BLUE) (12/27/2024 8:05 PM CDT) Blood BLOOD SPECIMEN / Unknown Venipuncture / Unknown 12/27/2024 8:05 PM CDT 12/27/2024 8:11 PM CDT us Олег Dailey MD HEMATOLOGY ORDERABLES Fi nal Result Performing Organization Address [facility] Co de Phone Number [facility] CLIA # [id number] [address] [place] [phone] * (ABNORMAL) BRAIN NATRIURETIC PEPTIDE, BNP OR PROBNP (12/27/2024 8:05 PM CDT) [facility] Signature PROBNP, N TERMINAL 15,927(H) 0 - 125 pg/mL 12/27/2024 11:07 PM CDT [facility] Comment: INTERPRETIVE COMMENT based on diagnosis: Diagnostic [...] Dailey MD CHEMISTRY ORDERABLES Fin al Result [facility] CLIA # [id number] [address] [place] [id number] * CT URINARY CALCULI WO CONTRAST (11/13/2024 8:45 AM CDT) Anatomical Region Laterality Modality Abdomen Computed Tomogra phy 11/13/2024 8:26 AM CDT Impressions 11/13/2024 11:14 AM CDT IMPRESSION: Please see below. Exam: CT URINARY CALCULI WO CONTRAST Date/Time of Exam: 11/13/2024 8:45 AM Reason For Exam: Urolithiasis, symptomatic. Diagnosis: Kidney stone. Technique: CT imaging was performed of the pelvis for urinary calculi without the administration of intravenous contrast. Findings: Imaged lower thorax with moderately large bilateral pleural effusions. Bladder within normal limits. Mild sigmoid diverticulosis. No obstructive pattern of bowel. Appendix within this. No ascites or free air. Abdominal aorta nonaneurysmal. No lymphadenopathy. Parenchymal detail of solid abdominal organs limited by absent IV contrast. No radiopaque gallstone. Liver grossly unremarkable. Spleen within normal limits. No hydronephrosis or gross focal concerning renal lesion. Pancreas and adrenals within normal limits. Mild subcutaneous anasarca. No concerning skeletal lesion. IMPRESSION: 1. Given limitation of absent IV contrast, no acute pathology within abdomen or pelvis. No obstructive uropathy. 2. Moderately large bilateral pleural effusions. Narrative Procedure Note Alejandro Luis MD - 11/13/2024 IMPRESSION: Please see below. Exam: CT URINARY CALCULI WO CONTRAST Date/Time of Exam: 11/13/2024 8:45 AM Reason For Exam: Urolithiasis, symptomatic. Diagnosis: Kidney stone. Technique: CT imaging was performed of the pelvis for urinary calculi without the administration of intravenous contrast. Findings: Imaged lower thorax with moderately large bilateral pleural effusions. Bladder within normal limits. Mild sigmoid diverticulosis. No obstructive pattern of bowel. Appendix within this. No ascites or free air. Abdominal aorta nonaneurysmal. No lymphadenopathy. Parenchymal detail of solid abdominal organs limited by absent IV contrast. No radiopaque gallstone. Liver grossly unremarkable. Spleen within normal limits. No hydronephrosis or gross focal concerning renal lesion. Pancreas and adrenals within normal limits. Mild subcutaneous anasarca. No concerning skeletal lesion. IMPRESSION: 1. Given limitation of absent IV contrast, no acute pathology within abdomen or pelvis. No obstructive uropathy. 2. Moderately large bilateral pleural effusions. Ellaaleah Rogers Vincenzo [facility] CT ORDERABLES Final Resu lt * HEMODIALYSIS (10/22/2024 10:01 AM CDT) Treasure Yoo MD - 10/22/2024 10:01 AM CDT Treasure Garza MD 10/22/2024 10:06 AM PROCEDURE: Intermittent Hemodialysis INDICATION: ESRD Procedure: Utilizing [...] sodium and 35 mEq/L bicarbonate. UF goal: 2L, BP stable. No complications have been encountered to this point. I was present during dialysis, and was available for the entirety of the dialysis treatment. Review of Systems Respiratory: Negative for cough and shortness of breath. Gastrointestinal: Negative for nausea and vomiting. Psychiatric/Behavioral: Confused Medications Reviewed in [facility] Physical Exam: BP (!) 145/85 Pulse (!) 58 Temp (!) 96.3 F (35.7 C) Resp 15 Ht 6' (1.829 m) Wt 99.3 kg (219 lb) SpO2 98% BMI 29.70 kg/m Physical Exam General:NAD, Alert and O X 1-2 HEENT:NCAT, PERRLA Respiratory: No respiratory distress CV: Trace edema berenice lower legs Skin: W/D/I Neuro: Alert, no overt neuro deficits appreciated Labs: Reviewed in [facility] Lab Results Component Value Date/Time NA 140 10/22/2024 03:17 AM K 3.6 10/22/2024 03:17 AM CL 103 10/22/2024 03:17 AM CO2 26 10/22/2024 03:17 AM CA 8.1 (L) 10/22/2024 03:17 AM BUN 34 (H) 10/22/2024 03:17 AM CREAT 4.73 (H) 10/22/2024 03:17 AM GLUCOSE 114 (H) 10/22/2024 03:17 AM ANIONGAP 11 10/22/2024 03:17 AM Lab Results Component Value Date/Time WBC 5.7 10/22/2024 03:17 AM HGB 11.5 (L) 10/22/2024 03:17 AM HCT 35.4 (L) 10/22/2024 03:17 AM PLT 189 10/22/2024 03:17 AM MCV 84.7 10/22/2024 03:17 AM Lab Results Component Value Date/Time CA 8.1 (L) 10/22/2024 03:17 AM Lab Results Component Value Date/Time TOTALPROTEIN 6.9 10/20/2024 01:00 PM ALBUMIN 3.6 10/20/2024 01:00 PM Assessment and Plan: ESRD: On hemodialysis at [facility] on Tuesday, Tuesday and Tuesday. He was seen and evaluated on hemodialysis today. Stable tx. Will follow and see on hemodialysis days. Continue on hemodialysis Tuesday, Tuesday and Tuesday. He is for an arteriovenous graft placement in October 2024. Treasure Garza MD [facility] 10/22/24, 10:01 AM Kira Joyce PSYCHIATRY INSTRUCTOR DIALYSIS ORDERABLES Final Resu lt * MAGNESIUM LEVEL (10/22/2024 3:17 AM CDT) Only the most recent of2 resultswithin the time period is included. MAGNESIUM 2.0 1.6 - 2.4 mg/dL 10/22/2024 4:11 AM CDT [facility] Blood Venipuncture / Unknown 10/22/2024 3:17 AM CDT 10/22/2024 3:37 AM CDT Luis Alfredo Harris MD CHEMISTRY ORDERABLES Final R esult [facility] CLIA # [id number] [address] [address] * ECHOCARDIOGRAM W/ CONTRAST AGENT (10/21/2024 1:29 PM CDT) EJECTION FRACTION 38 INTERFACE SYSTEM 10/21/2024 12:4 3 PM CDT Narrative INTERFACE SYSTEM - 10/21/2024 3:49 PM CDT [facility] Echocardiography Laboratory [address] [place] [address] Transthoracic Echocardiography Patient: Ida Morelos Study ID: ECHO COMPLETE - Gene Gender: M : 1960 Age: 64 Room: [facility] Study 10/21/2024 Pt Inpatient Date: Status: Study 12:43:18 PM [facility] #: [id number] Time: Ordering:Luis Alfredo Harris Marketing Administrative Assistant: Marcy Sauceda Indications and History: Cardiac Etiology: General; Syncope. Summary and Conclusion: - Left ventricle: The [...] was identified. There are bilateral pleural effusions. Procedure information: Comparison is made to the study of 02/22/2024. Study status: Routine. Procedure: A transthoracic echocardiogram was performed. Image quality was adequate. Scanning was performed from the parasternal, apical, subcostal, and suprasternal notch acoustic windows. Intravenous contrast (Definity) was administered. There were no complications. There were no contrast reactions. Study components: M-mode, 2D, complete spectral Doppler, and color Doppler. Height: 182.9cm. Height: 72in. Weight: 99.3kg. Weight: 219lb. BMI: 29.7kg/m^2. BSA: 2.27m^2. Blood pressure: 189/75 Study date: 10/21/2024. Study time: 12:43 PM. Location: Bedside. Cardiac Anatomy: LEFT VENTRICLE: The cavity size is dilated. Wall thickness is increased in a pattern of mild LVH. Global systolic function is moderately reduced. The estimated ejection fraction is 35-40%. For Epic reporting: the left ventricular ejection fraction is 38% There is diffuse hypokinesis with regional variations. Regional wall motion difficult to determine but improved with echo contrast. The longitudinal strain is -12.6% with apical sparing (Normal range is -18 to -25).. Moderate diastolic dysfunction (grade II, pseudonormal filling pattern), suggestive of elevated LV filling pressures. RIGHT VENTRICLE: The cavity size is normal. Systolic function is normal. Systolic pressure is not obtained. LEFT ATRIUM: The atrium is mildly dilated. RIGHT ATRIUM: The atrium is normal in size. ATRIAL SEPTUM: No obvious PFO or ASD identified by 2D imaging and color Doppler. AORTIC VALVE: Not well visualized. The valve is probably trileaflet. The leaflets are thickened. Mobility is not restricted. There is no stenosis. There is mild to moderate regurgitation. MITRAL VALVE: The annulus is calcified. The leaflets are thickened. Mobility is not restricted. No evidence for prolapse. There is no evidence for stenosis. There is trace regurgitation. TRICUSPID VALVE: Structurally normal valve. Mobility is unrestricted. There is no evidence for stenosis. There is trace regurgitation. PULMONIC VALVE: Not well visualized. The valve appears to be grossly normal. There is no evidence for stenosis. There is no significant regurgitation. PERICARDIUM: A minimal pericardial effusion and/or fat pad was identified. There are bilateral pleural effusions. AORTA: Aortic root: The root is not dilated. Aortic arch: The vessel is not dilated. INTRACARDIAC MASS THROMBUS: No apparent intracavitary masses or thrombi detected. Measurements Left ventricle Value LVOT continued Value GLS, 2D -12.6 % SV 56 ml SIDNEY, LAX 6.9 cm Qs 3.2 L/min ESD, LAX 4.5 cm Qs/bsa 1.4 L/(min-m^2) SIDNEY/bsa, LAX 3.0 cm/m^2 SV/bsa 25 ml/m^2 ESD/bsa, LAX 2.0 cm/m^2 FS, LAX 34 % Left atrium Value ESD major ax, A4C 8.7 cm AP dim, ES 4.4 cm ESD/bsa major ax, A4C 3.9 cm/m^2 AP dim index, ES 1.9 cm/m^2 SIDNEY minor ax, A4C 8.7 cm SI dim, A4C 5.7 cm SIDNEY/bsa minor ax, A4C 3.9 cm/m^2 Area ES, A4C 20 cm^2 SIDNEY major ax, A2C 10.0 cm Vol, S 59 ml ESD major ax, A2C 8.9 cm Vol/bsa, S 26 ml/m^2 SIDNEY/bsa major ax, A2C 4.4 cm/m^2 Vol, ES, 1-p A4C 55 ml ESD/bsa major ax, A2C 3.9 cm/m^2 Vol/bsa, ES, 1-p A4C 24 ml/m^2 IVS, ED 1.1 cm Vol, ES, 1-p A2C 54 ml ESD 4.5 cm Vol/bsa, ES, 1-p A2C 24 ml/m^2 ESD/bsa 2.0 cm/m^2 Vol, ES, A/L 58 ml PW, ED 1.2 cm Vol/bsa, ES, A/L 26 ml/m^2 IVS/PW, ED 0.94 EDV, 1-p A2C 162 ml Right atrium Value ESV, 1-p A2C 67 ml Area, ES 14 cm^2 EF, 1-p A2C 41 % Area, ES, A4C 14 cm^2 EDV/bsa, 1-p A2C 72 ml/m^2 ESV/bsa, 1-p A2C 29 ml/m^2 Aortic valve Value EDV, 1-p A4C 173 ml Peak v, S 141.38 cm/sec ESV, 1-p A4C 113 ml VTI, S 29.1 cm EF, 1-p A4C 34 % Mean grad, S 5 mm Hg SV, 1-p A4C 59 ml Peak grad, S 8 mm Hg EDV/bsa, 1-p A4C 76 ml/m^2 LVOT/AV, VTI ratio 0.59 ESV/bsa, 1-p A4C 50 ml/m^2 SANTHOSH, VTI 1.93 cm^2 SV/bsa, 1-p A4C 26 ml/m^2 SANTHOSH/bsa, VTI 0.85 cm^2/m^2 EDV, 2-p 168 ml LVOT/AV, Vpeak ratio 0.54 ESV, 2-p 105 ml SANTHOSH, Vmax 1.78 cm^2 EF, 2-p 38 % SANTHOSH/bsa, Vmax 0.78 cm^2/m^2 SV, 2-p 96 ml EDV/bsa, 2-p 74 ml/m^2 Mitral valve Value ESV/bsa, 2-p 46 ml/m^2 Peak E 83.14 cm/sec SV/bsa, 2-p 42.3 ml/m^2 Peak A 105.79 cm/sec Decel time 263 ms LVOT Value PHT 76 ms Diam, S 2.0 cm Peak grad, D 3 mm Hg Area 3.3 cm^2 Peak E/A ratio 0.79 Peak josep, S 77.01 cm/sec MVA, PHT 2.88 cm^2 VTI, S 17.2 cm MVA/bsa, PHT 1.27 cm^2/m^2 Peak grad, S 2 mm Hg Legend: (L) and (H) daren values outside specified reference range. [facility] are accredited with the Intersocietal Accreditation Commission - Echocardiography. Prepared and Electronically Authenticated Smooth Link Confirmed 10/21/2024 15:48 Procedure Note Smooth Link MD - 10/21/2024 [facility] [address] [place] [id number] Transthoracic Echocardiography Patient: Ida Morelos Study ID: [id number] - Gene Gender: M : 1960 Age: 64 Room: [facility] Study 10/21/2024 Pt Inpatient Date: Status: Study 12:43:18 PM CSN #: [id number] Time: Ordering:Luis Alfredo Harris Marketing Administrative Assistant: Marcy Sauceda Indications and History: Cardiac Etiology: General; Syncope. Summary and Conclusion: - Left ventricle: The cavity size is dilated. Wall thickness is increasedin a pattern of mild LVH. Global systolic function is moderately reduced.The estimated ejection fraction is 35-40%. For Epic reporting: the left ventricular ejection fraction is 38% There is diffuse hypokinesis with regional variations. Regional wall motion difficult to determine but improved with echo contrast. Moderate diastolic dysfunction (grade II, pseudonormal filling pattern), suggestive of elevated LV fillingpressures. The longitudinal strain is -12.6% with apical sparing (Normal range is-18 to -25).. - Right ventricle: The cavity size is normal. Systolic function isnormal. Systolic pressure is not obtained. - Left atrium: The atrium is mildly dilated. - Aortic valve: There is mild to moderate regurgitation. - Pericardium: A minimal pericardial effusion and/or fat pad wasidentified. There are bilateral pleural effusions. Procedure information: Comparison is made to the study of 02/22/2024.Study status: Routine. Procedure: A transthoracic echocardiogram wasperformed. Image quality was adequate. Scanning was performed from the parasternal, apical, subcostal, and suprasternal notch acoustic windows. Intravenous contrast (Definity) was administered. There were no complications. Therewere no contrast reactions. Study components: M-mode, 2D, complete spectral Doppler, and color Doppler. Height: 182.9cm. Height: 72in. Weight: 99.3kg. Weight: 219lb. BMI: 29.7kg/m^2. BSA: 2.27m^2.Blood pressure: 189/75 Study date: 10/21/2024. Study time: 12:43 PM. Location: Bedside. Cardiac Anatomy: LEFT VENTRICLE: The cavity size is dilated. Wall thickness is increasedin a pattern of mild LVH. Global systolic function is moderately reduced. The estimated ejection fraction is 35-40%. For Epic reporting: the left ventricular ejection fraction is 38% There is diffuse hypokinesis with regional variations. Regional wall motion difficult to determine butimproved with echo contrast. The longitudinal strain is -12.6% with apicalsparing (Normal range is -18 to -25).. Moderate diastolic dysfunction (grade II, pseudonormal filling pattern), suggestive of elevated LV fillingpressures. RIGHT VENTRICLE: The cavity size is normal. Systolic function isnormal. Systolic pressure is not obtained. LEFT ATRIUM: The atrium is mildly dilated. RIGHT ATRIUM: The atrium is normal in size. ATRIAL SEPTUM: No obvious PFO or ASD identified by 2D imaging and color Doppler. AORTIC VALVE: Not well visualized. The valve is probably trileaflet.The leaflets are thickened. Mobility is not restricted. There is nostenosis. There is mild to moderate regurgitation. MITRAL VALVE: The annulus is calcified. The leaflets are thickened.Mobility is not restricted. No evidence for prolapse. There is no evidence for stenosis. There is trace regurgitation. TRICUSPID VALVE: Structurally normal valve. Mobility isunrestricted. There is no evidence for stenosis. There is trace regurgitation. PULMONIC VALVE: Not well visualized. The valve appears to be grosslynormal. There is no evidence for stenosis. There is no significantregurgitation. PERICARDIUM: A minimal pericardial effusion and/or fat pad wasidentified. There are bilateral pleural effusions. AORTA: Aortic root: The root is not dilated. Aortic arch: The vessel is not dilated. INTRACARDIAC MASS THROMBUS: No apparent intracavitary masses or thrombi detected. Measurements Left ventricle Value LVOT continued Value GLS, 2D -12.6 % SV 56 ml SIDNEY, LAX 6.9 cm Qs 3.2 L/min ESD, LAX 4.5 cm Qs/bsa 1.4L/(min-m^2) SIDNEY/bsa, LAX 3.0 cm/m^2 SV/bsa 25ml/m^2 ESD/bsa, LAX 2.0 cm/m^2 FS, LAX 34 % Left atrium Value ESD major ax, A4C 8.7 cm AP dim, ES 4.4 cm ESD/bsa major ax, A4C 3.9 cm/m^2 AP dim index, ES 1.9cm/m^2 SIDNEY minor ax, A4C 8.7 cm SI dim, A4C 5.7 cm SIDNEY/bsa minor ax, A4C 3.9 cm/m^2 Area ES, A4C 20 cm^2 ISDNEY major ax, A2C 10.0 cm Vol, S 59 ml ESD major ax, A2C 8.9 cm Vol/bsa, S 26ml/m^2 SIDNEY/bsa major ax, A2C 4.4 cm/m^2 Vol, ES, 1-p A4C 55 ml ESD/bsa major ax, A2C 3.9 cm/m^2 Vol/bsa, ES, 1-p A4C 24ml/m^2 IVS, ED 1.1 cm Vol, ES, 1-p A2C 54 ml ESD 4.5 cm Vol/bsa, ES, 1-p A2C 24ml/m^2 ESD/bsa 2.0 cm/m^2 Vol, ES, A/L 58 ml PW, ED 1.2 cm Vol/bsa, ES, A/L 26ml/m^2 IVS/PW, ED 0.94 EDV, 1-p A2C 162 ml Right atrium Value ESV, 1-p A2C 67 ml Area, ES 14 cm^2 EF, 1-p A2C 41 % Area, ES, A4C 14 cm^2 EDV/bsa, 1-p A2C 72 ml/m^2 ESV/bsa, 1-p A2C 29 ml/m^2 Aortic valve Value EDV, 1-p A4C 173 ml Peak v, S 141.38cm/sec ESV, 1-p A4C 113 ml VTI, S 29.1 cm EF, 1-p A4C 34 % Mean grad, S 5 mm Hg SV, 1-p A4C 59 ml Peak grad, S 8 mm Hg EDV/bsa, 1-p A4C 76 ml/m^2 LVOT/AV, VTI ratio 0.59 ESV/bsa, 1-p A4C 50 ml/m^2 SANTHOSH, VTI 1.93 cm^2 SV/bsa, 1-p A4C 26 ml/m^2 SANTHOSH/bsa, VTI 0.85cm^2/m^2 EDV, 2-p 168 ml LVOT/AV, Vpeak ratio 0.54 ESV, 2-p 105 ml SANTHOSH, Vmax 1.78 cm^2 EF, 2-p 38 % SANTHOSH/bsa, Vmax 0.78cm^2/m^2 SV, 2-p 96 ml EDV/bsa, 2-p 74 ml/m^2 Mitral valve Value ESV/bsa, 2-p 46 ml/m^2 Peak E 83.14cm/sec SV/bsa, 2-p 42.3 ml/m^2 Peak A 105.79cm/sec Decel time 263 ms LVOT Value PHT 76 ms Diam, S 2.0 cm Peak grad, D 3 mm Hg Area 3.3 cm^2 Peak E/A ratio 0.79 Peak josep, S 77.01 cm/sec MVA, PHT 2.88 cm^2 VTI, S 17.2 cm MVA/bsa, PHT 1.27cm^2/m^2 Peak grad, S 2 mm Hg Legend: (L) and (H) daren values outside specified reference range. [facility] are accredited with the[facility] Accreditation Commission - Echocardiography. Prepared and Electronically Authenticated Smooth Link Confirmed 10/21/2024 15:48 us Luis Alfredo Harris MD US ORDERABLES Final Result Performing Organization Address City/State/[facility] Co de Phone Number INTERFACE SYSTEM Refer to clinic/hospital department * MRI LUMBAR WO CONTRAST (10/20/2024 1:39 PM CDT) Anatomical Region Laterality Modality Spine Magnetic Resonan ce 10/20/2024 1:10 PM CDT Impressions 10/20/2024 7:58 PM CDT IMPRESSION: 1. Prominent spinal stenosis at L4-5 which is exacerbated by a synovial cyst on the right. There is effacement of the subarticular zones which could affect the traversing L5 nerve roots, especially on the right. 2. Multiple foramina are moderately narrowed. 3. See findings above for further details. Narrative 10/20/2024 7:58 PM CDT Exam: MRI LUMBAR WO CONTRAST Date/Time of [...] nonspecific edema within the dorsal subcutaneous tissues. Procedure Note Eusebio Landa MD - 10/20/2024 Exam: MRI LUMBAR WO CONTRAST Date/Time of [...] nonspecific edema within the dorsal subcutaneous tissues. IMPRESSION: 1. Prominent spinal stenosis at L4-5 which is exacerbated by a synovial cyst on the right. There is effacement of the subarticular zones which could affect the traversing L5 nerve roots, especially on the right. 2. Multiple foramina are moderately narrowed. 3. See findings above for further details. Luis Alfredo Harris MD MR ORDERABLES Final Result * MRI BRAIN WO CONTRAST (10/20/2024 1:39 PM CDT) Anatomical Region Laterality Modality Head Magnetic Resonan ce 10/20/2024 12:5 6 PM CDT Impressions 10/20/2024 7:56 PM CDT IMPRESSION: Please see below. Exam: MRI BRAIN WO CONTRAST Date/Time of Exam: 10/20/2024 1:39 PM Reason For Exam: Neuro deficit, acute, stroke suspected. Diagnosis: See Reason for Exam. Technique: MRI of the brain was performed without the administration of intravenous contrast. Findings: There is prominence of the lateral and third ventricles which is suspected to be due to ex vacuo dilation from brain atrophy. There is a pattern of midbrain atrophy which raises suspicion for possible underlying progressive supranuclear palsy, with the hummingbird sign visualized on the sagittal images. There is no evidence of acute infarct, hemorrhage, or mass lesion. The major intracranial flow voids are intact. The visualized extracranial structures are unremarkable. IMPRESSION: 1. No acute findings. 2. Pattern of midbrain atrophy which raises suspicion for possible underlying progressive supranuclear palsy. Correlate clinically. Narrative Procedure Note Eusebio Landa MD - 10/20/2024 IMPRESSION: Please see below. Exam: MRI BRAIN WO CONTRAST Date/Time of Exam: 10/20/2024 1:39 PM Reason For Exam: Neuro deficit, acute, stroke suspected. Diagnosis: See Reason for Exam. Technique: MRI of the brain was performed without the administration of intravenous contrast. Findings: There is prominence of the lateral and third ventricles which is suspected to be due to ex vacuo dilation from brain atrophy. There is a pattern of midbrain atrophy which raises suspicion for possible underlying progressive supranuclear palsy, with the hummingbird sign visualized on the sagittal images. There is no evidence of acute infarct, hemorrhage, or mass lesion. The major intracranial flow voids are intact. The visualized extracranial structures are unremarkable. IMPRESSION: 1. No acute findings. 2. Pattern of midbrain atrophy which raises suspicion for possible underlying progressive supranuclear palsy. Correlate clinically. Luis Alfredo Harris MD MR ORDERABLES Final Result * (ABNORMAL) HEMOGLOBIN A1C (10/20/2024 1:00 PM CDT) HEMOGLOBIN A1C 8.2(H) <=5.6 % 10/22/2024 12:18 PM CDT [facility] EST. AVG GLUCOSE, A1C 189 mg/dL 10/22/2024 12:18 PM CDT [facility] Blood Venipuncture / Unknown 10/20/2024 1:00 PM CDT 10/20/2024 1:07 PM CDT Narrative [facility] [employer] [facility] - 10/22/2024 12:18 PM CDT HGB A1C INTERPRETATION NORMAL: <5.7% PRE-DIABETES: 5.7 - 6.4% DIABETES: 6.5% OR GREATER Luis Alfredo Harris MD CHEMISTRY ORDERABLES Final R esult Performing Organization Address [facility] Co de Phone Number [facility] CLIA # [id number] [id number] [place], [place] [address] * ETHANOL LEVEL (10/20/2024 1:00 PM CDT) ETHANOL <10.10 <10.10 mg/dL 10/20/2024 1:41 PM CDT [facility] ETHANOL % <0.01 <=0.01 %w/v 10/20/2024 1:41 PM CDT [facility] Blood Venipuncture / Unknown 10/20/2024 1:00 PM CDT 10/20/2024 1:07 PM CDT Davion Simon MD CHEMISTRY ORDERABLES Final Res ult Performing Organization Address [facility] de Phone Number [facility] CLIA # [id number] [address] [address] from Last 3 Months Insurance [address] [place] [address] [place]ICA[place] [employer] PPO MCR Advance Directives For more information, please contact: [phone] * Full Code (Latest Code Status on File) Date Activated Date Inactivated Comments 12/28/2024 5:34 AM 01/01/2025 6:49 PM * Full Code Date Activated Date Inactivated Comments 10/20/2024 4:57 PM 10/23/2024 3:14 PM * Full Code Date Activated Date Inactivated Comments 09/02/2023 7:37 PM 09/06/2023 2:53 PM
--- OUTSIDE RECORDS SUMMARY | 2025-01-02 15:50 | XMS_ITS | Encounter Summary ---
Author Organization [facility] Address [address] [place] [address] Care Team Providers Care Land Surveyor Manager Name Role Phone Unavailable Primary Care Provider Unavailabl e Encounter Details Date Type Department Care Team (Late st Contact Info) Description 11/13/2024 Results Follow-Up [facility] Urology- [place] [address], [address] [place] [address] Ella Loya, NIMCO [address] [place] [address] [address] URINARY CALCULI WO CONTRAST Social History Tobacco Use Types Packs/Day Years Used Date Smoking Tobacco: Former Cigarettes S tarted: 08/21/1975 Cigars Alcohol Use Standard Drinks/Week Comments Not Currently 0 (1 standard drink = 0.6 oz pur e alcohol) Feeling Safe Answer Date Recorded Are you in a relationship wi th someone who hurts you emotionally and/or physically? No 11/05/2024 Food Insecurity Answer Date Recorded Patient needs [...] on file Legal Sex Male 6:32 AM [employer] Gender Identity Not on file Sexual Orientation Not on file documented as of this encounter Plan of Treatment Upcoming Encounters Date Type Department Care Team (Late st Contact Info) Description 01/04/2025 6:30 AM CDT Appointment [facility] Tammy Montoya [address] [place] [address] 01/15/2025 1:30 PM CDT Office Visit [facility] Vascular Surgery [place] [id number] [place] [address] Davion Mcconnell MD [address] [place] [address] Esme Vail MD [address] [place] [address] 08/28/2025 1:00 PM [employer]ER Office Visit [facility] Neurosurgery [address] [place] [address] Adali Hammond PA [address] [place] [address] documented as of this encounter Visit Diagnoses Not on filedocumented in this encounter Additional Health Concerns Assessment Noted Time PHQ-9 Depression Total Score: 2 10/21/19 25 4:44 PM CDT documented as of this encounter
--- OUTSIDE RECORDS SUMMARY | 2025-01-02 15:50 | XMS_ITS ---
Author Name Inderjit, Clinic Address [address] [place] [address] Phone [phone] Organization [facility] e, NA DOCUMENT DISCLAIMER Multiple document versions may exist, please be sure you review the latest version. The information in the [facility] Continuity of Care Document represents a summary of certain health and medical information. It may not contain the complete medical history for the patient and should be independently verified. The represented time in the document is Eastern Time. 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 Active Nov Essential (primary) hypertension I10 Active December 10, 2024 End stage renal disease N18.6 Active November 20, 2024 Radiculopathy, lumbar region M54.16 Active October 23, 2024 Retention of urine, unspecified R33.9 Active August 30, 2024 Other disorders of phosphorus metabolism E83.39 Active July 30, 2024 Acute on chronic systolic (c ongestive) heart failure I50.23 Active July 20, 2024 Pleural effusion, not elsewhere classified J90 Active July 20, 2024 Fluid overload, unspecified E87.70 Active July 20, 2024 Secondary hyperparathyroidism of renal origin N25.81 Active July 11, 2024 Shortness of breath R06.02 Active July 11, 2024 Encounter for immunization Z23 Active J anuary 2024 Iron deficiency anemia, unspecified D50.9 Activ e July 11, 2024 Anemia, unspecified D64.9 Active July 11, 2024 Encounter for screening [...] renal dialysis Z99.2 Active July 05, 2024 nursing home (current) use of oral hypoglycemic drugs Z79 .84 Active July 05, 2024 technician terminal and repeater (current) use of insulin Z79.4 Active July 05, 2024 technician terminal and repeater (current) use of aspirin Z79.82 Active July 05, 2024 technician terminal and repeater (current) use of antithrombotics/antiplatelets Z79.02 Active June Chronic kidney disease, unspecified N18.9 Activ e July 05, 2024 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.42 Active Shaheed uary 2024 Other cardiomyopathies I42.8 Active [address] elevation (STEMI) myocard ial [...] SOCIAL HISTORY Tobacco Use Status Tobacco Type Unknown if ever consumed tobacco - Caregiver Characteristics No Information Available Characteristics of Home environment No Information Available Gender and Sex Information Gender Identity Sexual Orientation Male Decline to answer MEDICATIONS Prescribed Medications for Dialysis Treatments Medication Instructions Dosage Route Start Date End Date Stat us Clonidine HCl PRN-october repeat x1 systolic > 180 or dystolic > 100 0.1 mg Oral September 26, 2024 September 25, 2025 Active Heparin Sodium (Porcine) 1,000 Units/mL Catheter Lock Arterial Post Dialysis, Every Treatment 2200 units Arterial Red Port October 26, 2024 October 25, 2025 Active Heparin Sodium (Porcine) 1,000 Units/mL Catheter Lock Venous Post Dialysis, Every Treatment 2300 units Venous Blue Port October 26, 2024 October 25, 2025 Active Heparin Sodium (Porcine) 1,000 Units/mL Systemic Bolus, Every Treatment, Total treatment minutes 240 2000 units Intravenous - push July 27, 2024 July 26, 2025 Active Iron Sucrose (Venofer) During Dialysis, 1X Week 50 mg Intravenous - push December 10, 2024 December 09, 2025 Active Mircera During Dialysis, Every 2 weeks 50 mcg Intravenous - push December 17, 2024 December 16, 2025 Active Nitroglycerin (Nitroquick) PRN-october repeat x2 chest pain 0.4 mg Sublingual August 03, 2024 August 02, 2025 Active Vitamin D (Calcitriol) Oral Every Treatment 0.25 mcg Oral August 06, 2024 August 05, 2025 Active Mircera During Dialysis, Every 4 weeks 75 mcg Intravenous - push December 03, 2024 December 02, 2025 Discontinued Vancomycin HCl During Dialysis, Every Treatment 500 mg Intravenous December 24, 2024 December 26, 2024 Discontinued Vancomycin HCl Once 1000 mg Intravenous December 21, 2024 Discontinued Home Medications Medication Instructions Dosage Route Start Date End Date Status acetaminophen 500 mg Take by mouth twice a day as needed for pain 2 capsule ORAL August 15, 2024 Active Adult Aspirin Regimen 81 mg Take by mouth once a day 1 tablet ORAL July 12, 2024 Active amlodipine 10 mg Take by mouth once a day 1 tablet ORAL October 09, 2024 Active atorvastatin 80 mg Take by mouth every evening 1 tablet ORAL July 20, 2024 Active ergocalciferol (vitamin D2) 1,250 mcg (50,000 unit) Take by mouth once a week 1 capsule ORAL July 20, 2024 Active furosemide 40 mg Take by mouth once a day 1 tablet ORAL July 20, 2024 Active hydralazine 100 mg Take by mouth three times a day 1 tablet ORAL October 24, 2024 Active insulin aspart (niacinamide) 100 unit/mL (3 mL) Inject subcutaneously three times a day 1 unit SUBCUTANEOUS July 20, 2024 Active ipratropium-albute rol 0.5 mg-3 mg(2.5 mg base)/3 mL Inhale using nebulizer every six hours 1 puff INHALATION July 12, 2024 Active metoprolol tartrate 100 mg Take by mouth twice a day 1 tablet ORAL July 20, 2024 Active Plavix 75 mg Take by mouth once a day 1 tablet ORAL July 12, 2024 Active valsartan 160 mg Take by mouth once a day 1 tablet ORAL October 09, 2024 Active VITAL SIGNS Post-Treatment Vital Signs Vital Sign Value Date / Time Blood Pressure-sitting 198/117 mmHg December 27, 2024 05:55 AM Blood Pressure-standing 164/94 mmHg December 27, 2024 05:55 AM Heart Rate 100 beats per minute December 27 05:55 AM Respiratory Rate 16 breaths per minute December 27, 2024 05:55 AM Temperature 98.0 deg. F December 27, 2024 05 :55 AM Weight Vital Sign Value Date / Time Pre-Dialysis 100.90 kg December 27, 2024 05 :55 AM Post-Dialysis 98.20 kg December 27, 2024 05 :55 AM Other Other Value Date / Time Height 177 cm December 19, 2024 12 :00 AM Body Mass Index 30.96 kg/m2 December 20, 2024 12 :04 PM HEALTH CONCERNS Tuberculosis Testing TST Date Administered TST Date Read TST Result 07/12/2024 07/14/2024 Negative (<5) mm LAB RESULTS Hematology Result Type Result Value Relevant Referen ce Range Interpretation Date Ferritin 271 ng/mL 22 - 322 ng/mL - June Transferrin Sat. (Calc) 16 % 20 - 55 % Low July 23, 2024 TIBC (Calc) 239 mcg/dL 185 - 515 mcg/dL - July 23, 2024 UIBC/TIBC 201 mcg/dL 155 - 355 mcg/dL - July 23, 2024 WBC (No Diff) 6.35 1000/mcL 4.80 - 10.80 1000/mcL - July 23, 2024 Platelets 226 1000/mcL 130 - 400 1000/mcL - 2024 Neutrophils 59.3 % 40.0 - 75.0 % - June UIBC/TIBC 201 mcg/dL 155 - 355 mcg/dL - August 01, 2024 TIBC (Calc) 245 mcg/dL 185 - 515 mcg/dL - 2024 Transferrin Sat. (Calc) 18 % 20 - 55 % Low August 01 Ferritin 216 ng/mL 22 - 322 ng/mL - July Neutrophils 67.5 % 40.0 - 75.0 % - July WBC (No Diff) 5.79 1000/mcL 4.80 - 10.80 1000/mcL - August 01, 2024 Platelets 205 1000/mcL 130 - 400 1000/mcL - Febr uary 2024 Neutrophils 61.2 % 40.0 - 75.0 % - August 29, 2024 WBC (No Diff) 6.05 1000/mcL 4.80 - 10.80 1000/mcL - August 29, 2024 UIBC/TIBC 172 mcg/dL 155 - 355 mcg/dL - August TIBC (Calc) 217 mcg/dL 185 - 515 mcg/dL - August Transferrin Sat. (Calc) 21 % 20 - 55 % - August 29, 2024 Platelets 267 1000/mcL 130 - 400 1000/mcL - Jean Claude h 2024 Ferritin 428 ng/mL 22 - 322 ng/mL High August 29, 2024 Neutrophils 56.3 % 40.0 - 75.0 % - September 26, 2024 WBC (No Diff) 4.70 1000/mcL 4.80 - 10.80 1000/mcL Low September 26, 2024 Platelets 181 1000/mcL 130 - 400 1000/mcL - Apri l 2024 Transferrin Sat. (Calc) 27 % 20 - 55 % - September 26, 2024 UIBC/TIBC 142 mcg/dL 155 - 355 mcg/dL Low September TIBC (Calc) 195 mcg/dL 185 - 515 mcg/dL - September Ferritin 491 ng/mL 22 - 322 ng/mL High October 03, 2024 Hemoglobin x 3 36 % 42.0 - 54.0 % Low September 252024 Hemoglobin x 3 37.8 % 42.0 - 54.0 % Low September 262024 Hemoglobin x 3 38.7 % 42.0 - 54.0 % Low September 272024 Iron 97 mcg/dL 45 - 160 mcg/dL - October 31 025 UIBC/TIBC 135 mcg/dL 155 - 355 mcg/dL Low October 31, 2024 Lymphocytes 25.6 % 19.0 - 48.0 % - October 31 Neutrophils 63.7 % 40.0 - 75.0 % - October 31 Hemoglobin x 3 35.1 % 42.0 - 54.0 % Low October 31, 2024 Platelets 138 1000/mcL 130 - 400 1000/mcL - October 31, 2024 WBC (No Diff) 6.31 1000/mcL 4.80 - 10.80 1000/mcL - October 31, 2024 MCH 27.3 pg 27.0 - 31.0 pg - October 31 25 RDW 14.3 % 11.5 - 14.5 % - October 31 MCHC 31.9 g/dL 30.0 - 36.0 g/dL - October 31, 2024 Eosinophil 1.0 % 0.0 - 7.0 % - October 31, 2024 Monocytes 6.2 % 3.0 - 10.0 % - October 31, 2024 MYA 1.9 % 0.0 - 4.0 % - October 31, 2024 Transferrin Sat. (Calc) 42 % 20 - 55 % - October 31, 2024 Basophils 1.5 % 0.0 - 1.5 % - October 31, 2024 TIBC (Calc) 232 mcg/dL 185 - 515 mcg/dL - October 31, 2024 Ferritin 702 ng/mL 22 - 322 ng/mL High October 31 Hemoglobin x 3 30.3 % 42.0 - 54.0 % Low November 07, 2024 Hemoglobin x 3 32.1 % 42.0 - 54.0 % Low November 14, 2024 Hemoglobin x 3 33.6 % 42.0 - 54.0 % Low November 21, 2024 Hemoglobin x 3 32.4 % 42.0 - 54.0 % Low November Platelets 180 1000/mcL 130 - 400 1000/mcL - November 28, 2024 MCH 28.2 pg 27.0 - 31.0 pg - November 28 RDW 14.7 % 11.5 - 14.5 % High November 28 MCHC 33.5 g/dL 30.0 - 36.0 g/dL - November 28, 2024 TIBC (Calc) 224 mcg/dL 185 - 515 mcg/dL - November UIBC/TIBC 145 mcg/dL 155 - 355 mcg/dL Low November 28, 2024 Iron 79 mcg/dL 45 - 160 mcg/dL - November 28, 2024 Transferrin Sat. (Calc) 35 % 20 - 55 % - November 28, 2024 Ferritin 709 ng/mL 22 - 322 ng/mL High November 28, 025 Lymphocytes 27.7 % 19.0 - 48.0 % - November 28 025 Monocytes 7.0 % 3.0 - 10.0 % - November 28 Eosinophil 1.1 % 0.0 - 7.0 % - November 28, 2024 Basophils 1.3 % 0.0 - 1.5 % - November 28, 2024 Neutrophils 60.6 % 40.0 - 75.0 % - November 28, 025 MYA 2.4 % 0.0 - 4.0 % - November 28, 2024 WBC (No Diff) 5.74 1000/mcL 4.80 - 10.80 1000/mcL - November 28, 2024 HGB 10.8 g/dL 14.0 - 18.0 g/dL Low December 05, 2024 Retic HGB (CHr) 33.7 pg 25.4 - 31.8 pg High December 05, 2024 Hemoglobin x 3 32.4 % 42.0 - 54.0 % Low November Hemoglobin x 3 29.4 % 42.0 - 54.0 % Low November HGB 9.8 g/dL 14.0 - 18.0 g/dL Low December 12, 2024 Hemoglobin x 3 32.4 % 42.0 - 54.0 % Low November HGB 10.8 g/dL 14.0 - 18.0 g/dL Low December 19, 2024 Metabolic/Renal Result Type Result Value Relevant Referen ce Range Interpretation Date Hemoglobin A1c 8.4 % 4.8 - 5.9 % High June 282024 Hemoglobin A1c 8.0 % 4.8 - 5.9 % High August 01, 2024 Hemoglobin A1c 7.9 % 4.8 - 5.9 % High August 29, 2024 BUN/Creat Ratio 10.1 10.0 - 20.0 - September Creatinine, Serum 4.04 mg/dL 0.60 - 1.30 mg/dL High October 08, 2024 BUN 41 mg/dL 6 - 19 mg/dL High October 08 Urea Nitrogen, Urine, Timed 332 mg/dL No Reference Range Provided - October 08, 2024 Potassium 4.0 mEq/L 3.5 - 5.1 mEq/L - October 24, 2024 Sodium 139 mEq/L 136 - 145 mEq/L - October 24, 2024 BUN 44 mg/dL 6 - 19 mg/dL High October 24 Bicarbonate 26 mEq/L 22 - 29 mEq/L - October 24, 2024 Chloride 102 mEq/L 96 - 108 mEq/L - October 24, 2024 Urea Nitrogen, Urine, Timed 392 mg/dL No Reference Range Provided - October 29, 2024 Bicarbonate 25 mEq/L 22 - 29 mEq/L - October 31 25 Potassium 4.7 mEq/L 3.5 - 5.1 mEq/L - October 31 025 Chloride 98 mEq/L 96 - 108 mEq/L - October 31 25 BUN/Creat Ratio 14.2 10.0 - 20.0 - October 31, 2024 Sodium 134 mEq/L 136 - 145 mEq/L Low October 31 025 BUN 77 mg/dL 6 - 19 mg/dL High October 31, 2024 Creatinine, Serum 5.43 mg/dL 0.60 - 1.30 mg/dL High October 31, 2024 Urea Nitrogen, Urine, Timed 417 mg/dL No Reference Range Provided - October 31, 2024 URR, Calc 71 % 65 - 80 % - November 02, 2024 BUN, Post 22 mg/dL 6 - 19 mg/dL High November 02, 2024 BUN 76 mg/dL 6 - 19 mg/dL High November 02, 2024 BUN 40 mg/dL 6 - 19 mg/dL High November 09, 2024 Creatinine, Serum 3.72 mg/dL 0.60 - 1.30 mg/dL High November 09, 2024 BUN/Creat Ratio 10.8 10.0 - 20.0 - November 09, 2024 Bicarbonate 24 mEq/L 22 - 29 mEq/L - November 12 25 Chloride 98 mEq/L 96 - 108 mEq/L - November 12 25 BUN 64 mg/dL 6 - 19 mg/dL High November 12, 2024 Potassium 5.0 mEq/L 3.5 - 5.1 mEq/L - November 12 025 Sodium 134 mEq/L 136 - 145 mEq/L Low November 12 025 Urea Nitrogen, Urine, Timed 461 mg/dL No Reference Range Provided - November 12, 2024 Sodium 136 mEq/L 136 - 145 mEq/L - November 14 025 Creatinine, Serum 5.68 mg/dL 0.60 - 1.30 mg/dL High November 14, 2024 Chloride 96 mEq/L 96 - 108 mEq/L - November 14 25 Potassium 4.6 mEq/L 3.5 - 5.1 mEq/L - May 21, 2 025 Bicarbonate 27 mEq/L 22 - 29 mEq/L - November 14 Vitamin B12 788 pg/mL 211 - 911 pg/mL - November 21, 2024 URR, Calc 69 % 65 - 80 % - November 28, 2024 Hemoglobin A1c 7.5 % 4.8 - 5.9 % High November 28, 2024 BUN, Post 18 mg/dL 6 - 19 mg/dL - November 28 Bicarbonate 29 mEq/L 22 - 29 mEq/L - November 28 BUN/Creat Ratio 10.6 10.0 - 20.0 - November 28, 2024 BUN 58 mg/dL 6 - 19 mg/dL High November 28 Creatinine, Serum 5.45 mg/dL 0.60 - 1.30 mg/dL High November 28, 2024 Sodium 138 mEq/L 136 - 145 mEq/L - November 28, 2024 Potassium 4.1 mEq/L 3.5 - 5.1 mEq/L - November 28, 2024 Chloride 98 mEq/L 96 - 108 mEq/L - November 28 HD Adequacy Result Type Result Value Relevant Referen ce Range Interpretation Date Krt/V 0.00 No Reference Ran ge Provided - August 01, 2024 Krt/V 0.00 No Reference Ran ge Provided - August 29, 2024 Krt/V 0.70 No Reference Ran ge Provided - September 26, 2024 wstdKt/V, residual 1.5 No Reference Range Provided - November 02, 2024 wstdKt/V without residual 2.4 No Reference Range Provided - November 02, 2024 eKt/V ([place]) 1.26 No Reference Range Provided - November 02, 2024 spKt/V (Daugirdas II) 1.45 No Reference Range Provided - November 02, 2024 spKt/V Gotch 1.49 No Reference Ran ge Provided - November 02, 2024 wstdKt/V 3.9 No Reference Ran ge Provided - November 02, 2024 Krt/V 0.60 No Reference Ran ge Provided - November 02, 2024 spKt/V Gotch 1.37 No Reference Ran ge Provided - November 28, 2024 Krt/V 0.56 No Reference Ran ge Provided - November 28, 2024 wstdKt/V, residual 1.5 No Reference Range Provided - November 28, 2024 wstdKt/V 3.8 No Reference Ran ge Provided - November 28, 2024 wstdKt/V without residual 2.3 No Reference Range Provided - November 28, 2024 spKt/V (Daugirdas II) 1.35 No Reference Range Provided - November 28, 2024 eKt/V ([place]) 1.18 No Reference Range Provided - November 28, 2024 Bone/Mineral Result Type Result Value Relevant Referen ce Range Interpretation Date Magnesium 2.0 mg/dL 1.6 - 2.6 mg/dL - June 282024 PTH-Intact, Plasma 263 pg/mL 16 - 80 pg/mL High Jun uary 2024 Magnesium 2.2 mg/dL 1.6 - 2.6 mg/dL - August 01, 2024 PTH-Intact, Plasma 463 pg/mL 16 - 80 pg/mL High Jul ruary 2024 PTH-Intact, Plasma 172 pg/mL 16 - 80 pg/mL High Aug ch 2024 Magnesium 2.1 mg/dL 1.6 - 2.6 mg/dL - August 29, 2024 Magnesium 1.9 mg/dL 1.6 - 2.6 mg/dL - September 26, 2024 Magnesium 3.4 mg/dL 1.6 - 2.6 mg/dL High October 31, 025 Corrected Ca x P Product 52 0 - 54 - October 31, 2024 Ca x P Product 50 0 - 54 - October 31, 25 Phosphorus 5.6 mg/dL 2.6 - 4.5 mg/dL High October 31 025 Calcium, Total 8.9 mg/dL 8.4 - 10.2 mg/dL - October 31, 2024 PTH-Intact, Plasma 280 pg/mL 16 - 80 pg/mL High Nov Corrected Ca x P Product 44 0 - 54 - November 28, 2024 Phosphorus 4.8 mg/dL 2.6 - 4.5 mg/dL High November 28, 2024 Calcium, Total 8.8 mg/dL 8.4 - 10.2 mg/dL - November 28, 2024 Ca x P Product 42 0 - 54 - November 28, 2 025 Alkaline Phosphatase 93 U/L 40 - 129 U/L - 2024 Magnesium 2.2 mg/dL 1.6 - 2.6 mg/dL - November 28, 2024 Liver/Nutrition Result Type Result Value Relevant Referen ce Range Interpretation Date Albumin (BCG) 3.3 g/dL 3.5 - 5.2 g/dL Low September 252024 Glucose, Point of Care Test 208 No Reference Range Provided - October 26, 2024 A/G Ratio 1.1 1.0 - 2.0 - October 31, 2024 Globulin (Calc) 3.2 g/dL 2.0 - 4.0 g/dL - October Albumin (BCG) 3.6 g/dL 3.5 - 5.2 g/dL - October 31, 2024 Total Protein 6.8 g/dL 6.0 - 8.5 g/dL - October 31, 2024 Glucose 310 mg/dL 70 - 100 mg/dL High October 31 eNPCR 1.66 No Reference Ran ge Provided - November 02, 2024 Albumin (BCG) 3.6 g/dL 3.5 - 5.2 g/dL - November Total Protein 6.6 g/dL 6.0 - 8.5 g/dL - November A/G Ratio 1.2 1.0 - 2.0 - November 28, 2024 Globulin (Calc) 3.0 g/dL 2.0 - 4.0 g/dL - November 28, 2024 Glucose 194 mg/dL 70 - 100 mg/dL High November 28, 025 eNPCR 1.19 No Reference Ran ge Provided - November 28, 2024 Immunochemistry Result Type Result Value Relevant Reference Range Interpre tation HCV s/co ratio 0.07 0.00 - 0.79 - June 282024 HCV s/co ratio 0.10 0.00 - 0.79 - August 29, 2024 Trace Elements Result Type Result Value Relevant Reference Range Interpre tation Date Aluminum < 5 mcg/L 0 - 10 mcg/L - July 23, 2024 Aluminum < 5 mcg/L 0 - 10 mcg/L - August 01, 2024 Aluminum < 5 mcg/L 0 - 10 mcg/L - August 29 Peritoneal Dialysis Testing Result Type Result Value Relevant Referen ce Range Interpretation Date Creatinine, Urine 69.9 mg/dL No Reference R geoffrey Provided - August 20, 2024 Total Urea Nitrogen, Urine 4.4 g/24 hr 12.0 - 20.0 g/24 hr Low September 10 25 Urea Clearance, Urine 6.8 mL/min 64.0 - 99.0 mL/min Low September 10 5 Creatinine, Urine 69.6 mg/dL No Reference R geoffrey Provided - September 10, 2024 Total Creatinine, Urine 1.0 g/24 hr 0.7 - 1.8 g/24 hr - September 10, 2024 Total Urea Nitrogen, Urine 3.6 g/24 hr 12.0 - 20.0 g/24 hr Low September 19 25 Urea Clearance, Urine 6.1 mL/min 64.0 - 99.0 mL/min Low September 19 5 Creatinine, Urine 111.6 mg/dL No Reference R geoffrey Provided - September 19, 2024 Total Creatinine, Urine 1.1 g/24 hr 0.7 - 1.8 g/24 hr - September 19, 2024 Creatinine, Urine 77.4 mg/dL No Reference R geoffrey Provided - October 08, 2024 Total Urea Nitrogen, Urine 5.9 g/24 hr 12.0 - 20.0 g/24 hr Low October 29, 2024 Creatinine, Urine 59.2 mg/dL No Reference R geoffrey Provided - October 29, 2024 Total Creatinine, Urine 0.9 g/24 hr 0.7 - 1.8 g/24 hr - October 29, 2024 Creatinine, Urine 60.1 mg/dL No Reference R geoffrey Provided - October 31, 2024 Total Urea Nitrogen, Urine 5.5 g/24 hr 12.0 - 20.0 g/24 hr Low November 12, 2024 Urea Clearance, Urine 6.0 mL/min 64.0 - 99.0 mL/min Low November 12, 2024 Creatinine, Urine 82.3 mg/dL No Reference R geoffrey Provided - November 12, 2024 Total Creatinine, Urine 1.0 g/24 hr 0.7 - 1.8 g/24 hr - November 12, 2024 Infectious Diseases Result Type Result Value Relevant Referen ce Range Interpretation Date Hep B core Ab Total (anti-HBc) Negative No Reference Range Provided - July 23, 2024 HCV Ab (anti-HCV) Nonreactive No Reference R geoffrey Provided - August 29, 2024 Hep B Surface Ab (anti-HBs) < 10 mIU/mL No Reference Range Provided - August 29, 2024 Hep B Surface Ag (HBsAg) Negative No Reference Range Provided - November 28, 2024 Microbiology-Culture, Blood Result Type Result Value Relevant Referen ce Range Interpretation Date Organism 1 (Blood Culture) Staphylococcus hominis ssp hominis Based on CLSI guidelines, testing of all Staphylococcus isolates includes Penicillin, Oxacillin and screening with Cefoxitin. Since this isolate is resistant to all, it is considered resistant to all B-lactams (Penicillins, Cephems/Cephalosporins, and Carbapenems), including B-lactamase inhibitor combinations. Therefore further testing of Cephems (Cefazolin and Ceftazidime) is not advised. ANTIBIOTIC [OSVALDO ] SENSITIVITY PENICILLIN [>=0.5 ] R CLINDAMYCIN [<=0.25 ] S ERYTHROMYCIN [>=8 ] R GENTAMICIN [<=0.5 ] S LEVOFLOXACIN [<=0.12 ] S LINEZOLID [4 ] S OXACILLIN [<=0.25 ] R RIFAMPIN [<=0.5 ] S TETRACYCLINE [2 ] S TRIMETHOPRIM/SULFA [<=10 ] S VANCOMYCIN [<=0.5 ] S No Reference Range Provided - December 21, 2024 Gram Stain (Blood Culture) Gram Positive Cocci in Clusters Detected in Aerobic Bottle Only No Reference Range Provided - December 21, 2024 Culture Result (Blood Culture) Complete No Reference Range Provided - December 21, 2024 Organism 2 (Blood Culture) Staphylococcus epidermidis Based on CLSI guidelines, testing of all Staphylococcus isolates includes Penicillin, Oxacillin and screening with Cefoxitin. Since this isolate is resistant to all, it is considered resistant to all B-lactams (Penicillins, Cephems/Cephalosporins, and Carbapenems), including B-lactamase inhibitor combinations. Therefore further testing of Cephems (Cefazolin and Ceftazidime) is not advised. PENICILLIN [>=0.5 ] R CLINDAMYCIN [<=0.25 ] S ERYTHROMYCIN [>=8 ] R GENTAMICIN [<=0.5 ] S LEVOFLOXACIN [<=0.12 ] S LINEZOLID [1 ] S MOXIFLOXACIN [<=0.25 ] S OXACILLIN [>=4 ] R RIFAMPIN [<=0.5 ] S TETRACYCLINE [>=16 ] R TRIMETHOPRIM/SULFA [160 ] R VANCOMYCIN [1 ] S No Reference Range Provided - December 21, 2024 Microbiology-Culture, Blood 2nd Set Result Type Result Value Relevant Referen ce Range Interpretation Date Culture Result (Blood Culture - 2nd Set) No Aerobic or Anaerobic Growth after 5 Days of Incubation. No Reference Range Provided - December 21, 2024 DIALYSIS PRESCRIPTION Conventional Hemodialysis Data Element Value Order Date/Time December 19, 2024 Frequency 3X Week Treatment Days MonWedFri Dialyzer [id number] Optiflux Treatment Time (Total Minutes) 240 min Blood Flow Rate (mL/min) 450 mL/min Dialysate Flow Rate Autoflow 2.0 Estimated Dry Weight 97 kg Dialysate Concentrate 3.0 K, 2.5 Ca, 1.0 Mg, 100 Dextrose (G3251) Sodium (mEq/L) 137 mEq/L Bicarb Machine Setting (mEq/L) 35 mEq/L Dialysis Access Hemodialysis-AV [facility] - [place] Acuseal, Left Upper Arm, Brachial Artery to Axillary Vein Access Placed on November 05, 2024 Arterial Needle Size 15g1 Venous Needle Size 15g1 IMMUNIZATIONS Vaccine Date Dose Route Status HEPLISAV-B, Series 4 of 4 December 05, 2024 20.0 mcg Intramu scular Completed HEPLISAV-B, Series 2 of 4 September 05, 2024 20.0 mcg Intram uscular Completed PREVNAR July 23, 2024 0.5 mL Intramuscular Compl eted TRANSPLANT WAITLIST STATUS No Information on Transplant Waitlist Status ADVANCE DIRECTIVES Directive Description Ordered By Effective Date Resuscitation status Full Code Treasure Garza Jun DIALYSIS TREATMENTS Conventional Hemodialysis Date Pre-Treatment Vitals Post-Treatment Lisa ls Duration (hr) BFR (mL/min) Dialysate Dialyzer Dialysis Access Meds Admin December 21, 2024 Weight 97.40 kg Weight 96.90 kg 04:08:00 450 3.0 K, 2.5 Ca, 1.0 Mg, 100 Dextrose (G3251) 180nre Optifl ux Blood Pressure-sitting 159/76 mmHg Blood Pressure-sit ting 150/70 mmHg Blood Pressure-standing 154/80 mmHg Blood Pressure-st anding 154/67 mmHg Heart Rate 58 beats per minute Heart Rate 61 beats per minute Respiratory Rate 16 breaths per minute Respiratory Rate 12 breaths per minute Temperature 98.1 deg. F Temperature 97.8 deg. F December 24, 2024 Weight 98.20 kg Weight 97.10 kg 03:42:00 460 3.0 K, 2.5 Ca, 1.0 Mg, 100 Dextrose (G3251) 180nre Optiflux Hemodialysis-CV Catheter-Tunneled, Chest, Right Jugular Access Placed on July 11, 2024 Heparin Sodium (Porcine) 1,000 Units/mL Catheter Lock Arterial; 2200units,Arterial [place] Heparin Sodium (Porcine) 1,000 Units/mL Catheter Lock Venous; 2300units,Venous [place] Heparin Sodium (Porcine) 1,000 Units/mL Systemic; 2000units,Intravenous - push Vitamin D (Calcitriol) Oral; 0.25mcg,Oral Blood Pressure-sitting 184/80 mmHg Blood Pressure-sit ting 155/68 mmHg Blood Pressure-standing 162/86 mmHg Blood Pressure-st anding 155/76 mmHg Heart Rate 70 beats per minute Heart Rate 73 beats per minute Respiratory Rate 16 breaths per minute Respiratory Rate 16 breaths per minute Temperature 97.2 deg. F Temperature 96.7 deg. F December 27, 2024 Weight 100.90 kg Weight 98.20 kg 03:00:00 450 3.0 K, 2.5 Ca, 1.0 Mg, 100 Dextrose (G3251) 180nre Optiflux Hemodialysis-CV Catheter-Tunneled, Chest, Right Jugular Access Placed on July 11, 2024 Clonidine HCl; 0.1mg,Oral Heparin Sodium (Porcine) 1,000 Units/mL Catheter Lock Arterial; 2200units,Arterial [place] Heparin Sodium (Porcine) 1,000 Units/mL Catheter Lock Venous; 2300units,Venous [place] Heparin Sodium (Porcine) 1,000 Units/mL Systemic; 2000units,Intravenous - push Vancomycin HCl; 500mg,Intravenous Vitamin D (Calcitriol) Oral; 0.25mcg,Oral Blood Pressure-sitting 192/88 mmHg Blood Pressure-sit ting 198/117 mmHg Heart Rate 95 beats per minute Blood Pressure-standi ng 164/94 mmHg Respiratory Rate 16 breaths per minute Heart Rate 100 beats per minute Temperature 97.1 deg. F Respiratory Rate 16 breaths per minute - - Temperature 98.0 deg. F
--- OUTSIDE RECORDS SUMMARY | 2025-01-02 15:51 | XMS_ITS | Encounter Summary ---
Author Organization [facility] Address 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 Gender Identity Not on file Sexual Orientation Not on file documented as of this encounter Plan of Treatment Upcoming Encounters Date Type Department Care Team (Late Contact Info) Description 01/04/2025 6:30 AM CDT Appointment [facility] [address] [place] [address] 01/15/2025 1:30 PM CDT Office Visit [facility] [place] [address] [place] [address] Davion Mcconnell MD [address] [place] [address] Esme Vail MD [address] [place] [address] 08/28/2025 1:00 PM ASSISTANT FINANCIAL ACCOUNTANT Office Visit [facility] [address] [place] [address] Adali Hammond, SUSAN [address] [place] [address] documented as of this encounter Visit Diagnoses Not on filedocumented in this encounter Additional Health Concerns Assessment Noted Time PHQ-9 Depression Total Score: 2 10/21/19 25 4:44 PM CDT documented as of this encounter
[2025-01-02 16:08] LABS: Hematocrit 30.8 % (37-53); Hemoglobin 10.10 g/dL (11.27-16.99); Mean Corpuscular HGB Conc 32.8 g/dL (30-55); Mean Corpuscular Hemoglobin 28.9 pg (27-33); Mean Corpuscular Volume 88.3 fl (82-101); Nucleated Red Blood Cells % 0 %; Platelet Count 202 10^3/cmm (157-399); Red Blood Count 3.49 10^6/uL (3.85-5.65); White Blood Count 4.54 10^3/uL (3.29-11.43)
[2025-01-02 16:28] LABS: Alanine Aminotransferase 44 U/L (0-41); Albumin Level 4.0 g/dL (3.5-5.2); Alkaline Phosphatase 121 U/L (40-130); Anion Gap 16.0 (5-19); Aspartate Amino Transferase 57 U/L (0-40); Blood Urea Nitrogen 19 mg/dL (8-23); Calcium 8.9 mg/dL (8.5-10.5); Carbon Dioxide 31 mmol/L (22-29); Chloride 93 mmol/L (98-107); Creatinine Clr Calc Pharmacy 33.3445; Globulin 3.1 g/dL (1.3-4.6); Glucose 201 mg/dL (65-115); Osmolality Calculated 290 mOsm/kg (285-295); Potassium 4.0 mmol/L (3.5-5.1); Sodium 136 mmol/L (136-145); Total Protein 7.1 g/dL (6.6-8.7); Troponin(5th) Baseline 184 ng/L (0-15)
[2025-01-02] MEDS: morphine 4 mg/mL SDV 1 mL IVP (17:03)
[2025-01-02 17:51] LABS: Troponin 5 2HR 177.0 ng/L (0-15); Troponin 5 2HR Delta -7.0 ABS# (0-10)
--- NOTE | 2025-01-02 17:59 | ECG_ITS ---
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 Measurements Intervals [place] Rate: 73 P: 9 MT: 150 QRS: -53 QRSD: 128 T: 63 QT: 386 QTc: 427 Interpretive Statements SINUS RHYTHM POSSIBLE RIGHT VENTRICULAR CONDUCTION DELAY [RSR (QR) IN V1/V2] LEFT ANTERIOR FASCICULAR BLOCK [QRS AXIS <= -45, QR IN I, RS IN II] MODERATE VOLTAGE CRITERIA FOR LVH, CONSIDER NORMAL VARIANT [MEETS CRITERIA IN ONE OF: R(aVL), S(V1), R(V5), R(V5/V6)+S(V1)] POSSIBLE ANTEROSEPTAL MYOCARDIAL INFARCTION , OF INDETERMINATE AGE [30 ms Q WAVE IN V1-V4] Compared to ECG 01/02/2025 18:17:23 No significant changes Electronically Signed On 01-02-2025 20:20:35 CDT by Jeffry Pugh M.D. [email or web address]
--- NOTE | 2025-01-02 19:38 | XRR_ITS ---
PROCEDURE INFORMATION: Exam: XR Chest Exam date and time: 01/02/2025 7:49 PM Age: 64 years old Clinical indication: Pain; Chest pressure; Additional info: Chest pain TECHNIQUE: Imaging protocol: Radiologic exam of the chest. Views: 1 view. COMPARISON: CR (CHEST, ) 12/10/2024 12:07 PM FINDINGS: Tubes, catheters and devices: Right central venous catheter. Lungs: Left mid to lower lung syed atelectasis versus infiltrate. Pleural spaces: Small bilateral lshf-xwnvmli-tkbw-right pleural effusions. Heart/Mediastinum: Cardiomegaly. Bones/joints: Unremarkable. XR/XR chest 1V portable [id number] IMPRESSION: 1. Cardiomegaly. 2. Small bilateral locc-hclozdc-gxrw-right pleural effusions. 3. Left mid to lower lung syed atelectasis versus infiltrate. 4. Right central venous catheter.
--- NOTE | 2025-01-02 20:55 | ED_ITS ---
HPI - Chest Pain 2 General: Chief Complaint: Chest Pain Stated Complaint: Chest Pain Time Seen by Provider: 01/02/25 15:24 History of Present Illness: Patient is a 64-year-old male with a history of end-stage renal disease who was at dialysis today and had nearly completed his entire course when he began experiencing chest pain and pain shooting down his left leg. He describes the leg pain as feeling like a 'charley horse' or muscle cramp. The chest pain was described as pressure. EMS was called and administered nitroglycerin for his chest pain prior to arrival. The patient has known coronary artery disease and reports having undergone angioplasty of his coronary stent just last week at [facility]. 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 He received dialysis early Tuesday morning there. The cardiology team at [facility] found an occluded vessel during catheterization on Tuesday and reopened it without placing any new stents. Related Data Home Medications ?Medication ?Instructions ?Recorded ?Confirmed acetaminophen 500 mg tablet 1,000 mg PO Q6H PRN Pain 0 09/08/23 12/10/24 insulin glargine 100 unit/mL (3 20 unit SUBCUT QAM 02/1812/10/24 mL) subcutaneous pen (Lantus Solostar U-100 Insulin) amlodipine 10 mg tablet 10 mg PO DAILY 12/10/2411/25 Previous Rx's ?Medication ?Instructions ?Recorded flash glucose scanning reader #1 ea 09/07/23 (FreeStyle Igor 14 Day Dalton) flash glucose sensor (FreeStyle #1 ea 09/07/23 Igor 14 Day Sensor kit) aspirin 81 mg tablet,delayed 81 mg PO DAILY 30 days #3 0 tabs 07/19/24 release atorvastatin 80 mg tablet 80 mg PO BEDTIME 30 days #30 tabs 07/19/24 clopidogrel 75 mg tablet 75 mg PO DAILY 30 days #30 t abs 07/19/24 insulin aspart U-100 100 unit/mL See Rx Instructions . Route 07/19/24 (3 mL) subcutaneous pen (Novolog .COMPLEX #15 mL FlexPen U-100 Insulin aspart) valsartan 160 mg tablet 160 mg PO DAILY #90 tabs 02/18 blood sugar diagnostic (Algaaciq #100 ea 10/09/24 Test Strip) diabetic shoes with 3 inserts #1 ea 10/09/24 lancets 30 gauge (ReliaMed Safety #200 ea 10/09/24 Seal Lancets) metoprolol tartrate 50 mg tablet 50 mg PO BID@0900,210 0 #180 tabs 10/09/24 pen needle, diabetic 31 gauge x #100 ea 10/10/2409/09 (1st Tier Unifine Pentips) hydralazine 50 mg tablet 100 mg (2 x 50 mg) PO TID #1 80 tabs 12/11/24 nitroglycerin 0.4 mg sublingual 0.4 mg sublingual Q5M PRN Chest 12/11/24 tablet Pain #30 tabs diazepam 5 mg tablet (Valium) 5 mg PO Q8H PRN muscle s pasm #14 01/02/25 tabs isosorbide dinitrate 30 mg tablet 30 mg PO TID #90 tab s 01/02/25 Allergies Allergy/AdvReac Type Severity Reaction Status Date / Time No Known Allergies Allergy Verified 10/17/24 13:07 PFS ED 2 PFSH: Medical History (Updated 01/02/25 @ 20:56 by Henrik Lam MD) CAD (coronary artery disease) End stage renal disease on dialysis End stage renal disease Hyperlipidemia Diabetes type 2 with atherosclerosis of arteries of extremities CHF (congestive heart failure) Chest pain Rib pain on right side Large pleural effusion Hypertension Diabetes Abnormal nuclear stress test Hyperglycemia Hypertensive urgency Angina at rest Diabetic neuropathy, painful Surgical History History of surgical removal of meniscus of knee Family History Other CAD (coronary artery disease) Diabetes Social History Smoking and tobacco/nicotine status: never used tobacco/nicotine Alcohol intake: former Substance/Drug Use: never Course 2 Vital Signs: Vital signs: Vital Signs Temperature 97.6 F 01/02/25 15:33 Pulse Rate 74 01/02/25 20:30 Respiratory Rate 14 01/02/25 20:30 Blood Pressure 102/52 01/02/25 20:30 Pulse Oximetry 92 01/02/25 20:30 Oxygen Delivery Me thod Room Air 01/02/25 15:33 MDM - Chest Pain Medical Decision Making ROS: Constitutional: Reports lightheadedness earlier today. Cardiovascular: Positive for chest pressure during dialysis today. Denies palpitations. Musculoskeletal: Positive for left leg pain/cramping during dialysis. Neurological: Reports feeling off balance earlier today. All other systems reviewed and negative. MEDICATIONS AND ALLERGIES: New medication: Emdur 30mg TID being initiated today. 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 Mucous membranes moist. Neck: Supple Respiratory: No increased work of breathing. No wheezing. Mild left pleural effusion noted on imaging. Cardiac: Regular rate and rhythm, 2+ pulses in all extremities Abdomen: Soft, non-distended, no rebound or guarding Extremities: Left leg with reported cramping pain during dialysis, no visible abnormalities noted Neuro: Cranial nerves grossly intact, no focal motor or sensory deficits noted INITIAL IMPRESSION AND PLAN: Given the history and presentation, the primary working diagnosis is chest pain in a patient with known coronary artery disease and recent angioplasty. Additional considerations include acute coronary syndrome, dialysis-related complications, and musculoskeletal pain. Based on this initial impression I will order: 1. EKG to evaluate for ischemic changes 2. Serial troponins to evaluate for myocardial injury 3. Basic metabolic panel to assess electrolytes and renal function 4. Chest X-ray to evaluate for cardiopulmonary pathology 5. Cardiology consultation with Dr. Tilley 6. Diazepam 5mg PO for leg cramps 7. Consider initiation of Emdur based on cardiology recommendations TEST INTERPRETATIONS: EKG: Sinus rhythm at 71 beats per minute. Left anterior fascicular block noted with left axis deviation. No ischemic ST elevation or depression. Troponin: Initial value 184, repeat 177 with negative delta of 7. Chronically elevated troponins attributed to coronary disease and chronic renal disease. Basic Metabolic Panel: Creatinine 2.6 (consistent with chronic renal insufficiency), Potassium 4.0. Chest X-ray: Mild cardiomegaly without consolidation or pneumonia. Mild left pleural effusion, stable compared to previous studies. PROCEDURES: No high-risk procedures performed during this encounter. CONSIDERED BUT NOT PERFORMED: Cardiac catheterization CONSIDERED but NOT DONE due to recent procedure at [facility] within the past week, stable troponins with negative delta, and absence of ischemic changes on EKG. Hospital admission CONSIDERED but NOT DONE due to cardiology consultation confirming stable cardiac status, patient's preference for discharge, and ability to follow up as needed. OTC medications/interventions recommended included: Continue regular medications as prescribed, follow up with meat cutter apprentice as scheduled. FINAL IMPRESSION: Based on all the above, my clinical impression is most compatible with non- cardiac chest pain in a patient with recent coronary intervention and stable cardiac markers. The clinical picture is not currently suggestive of acute coronary syndrome, pulmonary embolism, or acute heart failure. Although other conditions were also considered, they were deemed unlikely based on the clinical information available. CLINICAL DISPOSITION: The patient's current condition is stable in my estimation and the most appropriate and indicated disposition at this time is discharge home with new prescription for Emdur 30mg TID as recommended by cardiology and diazepam for leg cramps. The patient is safe for discharge as evidenced by stable vital signs, absence of acute ischemic changes on EKG, stable troponin levels with negative delta, and cardiology consultation confirming low risk for acute coronary syndrome. Dr. Tilley, who is familiar with the patient's cardiac history, specifically recommended outpatient management with the addition of Emdur. The patient also expressed a preference for discharge and understands return precautions. RISK STRATIFICATION AND CLINICAL DECISION RULES APPLIED: HEART Score components: History (2 - moderately suspicious), ECG (0 - normal), Age (2 - 64 years), Risk factors (2 - multiple including ESRD, CAD), Troponin (1 - elevated but stable/chronic). HEART Score: 7 - Moderate-high risk. However, this is modified by the patient's chronic elevation of troponin due to ESRD and recent cardiac intervention with known stable coronary disease. Cardiology consultation specifically addressed this risk and recommended outpatient management. CASE SUMMARY: 64-year-old male with ESRD on dialysis and CAD with recent coronary angioplasty one week ago presented with chest pain and left leg cramping during dialysis. EMS administered nitroglycerin en route. Initial workup revealed stable, chronically elevated troponins with a negative delta, and an EKG without acute ischemic changes. Cardiology consultation with Dr. Tilley, who is familiar with the patient, confirmed low concern for ACS given the stable cardiac markers and absence of ischemic changes. The patient was treated with diazepam for leg cramps and started on Emdur 30mg TID as recommended by cardiology. After discussion with the patient and cardiology, the decision was made to discharge home with appropriate medications and follow-up. The patient understood and agreed with this plan. Lab Data I reviewed the patient's lab results. 01/02/25 15:10 01/02/25 15:10 Radiology Impressions Chest X-Ray 01/02/25 19:38 IMPRESSION: 1. Cardiomegaly. 2. Small bilateral ejmy-cuhpcmd-qisf-right pleural effusions. 3. Left mid to lower lung syed atelectasis versus infiltrate. 4. Right central venous catheter. Laboratory Results WBC 4.54 10^3/uL (3.29-11.43) 01/02/25 15:10 RBC 3.49 10^6/uL (3.85-5.65) L 01/02/25 15:10 Hgb 10.10 g/dL (11.27-16.99) L 01/02/25 15:10 Hct 30.8 % (37-53) L 01/02/25 15:10 MCV 88.3 fl (82-101) 01/02/25 15:10 MCH 28.9 pg (27-33) 01/02/25 15:10 MCHC 32.8 g/dL (30-55) 01/02/25 15:10 RDW 14.7 % (12.1-15.1) 01/02/25 15:10 Plt Count 202 10^3/cmm (157-399) 01/02/25 15:10 MPV 10.3 fL (7.4-10.4) 01/02/25 15:10 Neut % (Auto) 62.0 % 01/02/25 15:10 Lymph % (Auto) 24.4 % 01/02/25 15:10 Fisher % (Auto) 12.1 % 01/02/25 15:10 Eos % (Auto) 0.4 % 01/02/25 15:10 Baso % (Auto) 0.9 % 01/02/25 15:10 Neut # (Auto) 2.81 10^3/uL (1.8-7.7) 01/02/25 15:10 Lymph # (Auto) 1.1 10^3/uL (0.8-4.8) 01/02/25 15:10 Fisher # (Auto) 0.6 10^3/uL (0.2-0.9) 01/02/25 15:10 Eos # (Auto) 0.0 10^3/uL (0.0-0.8) 01/02/25 15:10 Baso # (Auto) 0.0 10^3/uL (0.0-0.1) 01/02/25 15:10 Nucleated RBC % (auto) 0 % 01/02/25 15:10 Nucleated RBCs # 0.0 /100WBC 01/02/25 15:10 Sodium 136 mmol/L (136-145) 01/02/25 15:10 Potassium 4.0 mmol/L (3.5-5.1) 01/02/25 15:10 Chloride 93 mmol/L (98-107) L 01/02/25 15:10 Carbon Dioxide 31 mmol/L (22-29) H 01/02/25 15:10 Anion Gap 16.0 (5-19) 01/02/25 15:10 BUN 19 mg/dL (8-23) 01/02/25 15:10 Creatinine 2.6 mg/dL (0.7-1.2) H 01/02/25 15:10 GFR Calculation 25.1 mL/min (90-130) L 01/02/25 15:10 Glucose 201 mg/dL (65-115) H 01/02/25 15:10 Calculated Osmolality 290 mOsm/kg (285-295) 01/02/25 15:10 Calcium 8.9 mg/dL (8.5-10.5) 01/02/25 15:10 Total Bilirubin 0.4 mg/dL (0.15-1.2) 01/02/25 15:10 AST 57 U/L (0-40) H 01/02/25 15:10 ALT 44 U/L (0-41) H 01/02/25 15:10 Alkaline Phosphatase 121 U/L (40-130) 01/02/25 15:10 Troponin T Baseline 184 ng/L (0-15) H* 01/02/25 15:10 Troponin T 120 Minute 177.0 ng/L (0-15) H 01/02/25 17:06 Delta Troponin T -7.0 ABS# (0-10) L 01/02/25 17:06 Total Protein 7.1 g/dL (6.6-8.7) 01/02/25 15:10 Albumin 4.0 g/dL (3.5-5.2) 01/02/25 15:10 Globulin 3.1 g/dL (1.3-4.6) 01/02/25 15:10 All radiology interpretation(s) finalized by discharge Discharge Plan Discharge Patient Disposition: Home Clinical Impression: Chest pain Condition: Stable Prescriptions: New isosorbide dinitrate 30 mg tablet 30 mg PO TID Qty: 90 0RF Rx Instructions: administer 30 minutes before meals diazepam [Valium] 5 mg tablet 5 mg PO Q8H PRN (Reason: muscle spasm) Qty: 14 0RF No Action metoprolol tartrate 50 mg tablet 50 mg PO BID@0900,2100 Qty: 180 3RF (DME) Algaaciq Test Strip Strip See Rx Instructions .Route Qty: 100 12RF Rx Instructions: As directed (DME) lancets [ReliaMed Safety Seal Lancets] 30 gauge misc See Rx Instructions .Route Qty: 200 6RF Rx Instructions: As directed (DME) FreeStyle Igor 14 Day Dalton Misc See Rx Instructions .Route Qty: 1 0RF Rx Instructions: As directed (DME) FreeStyle Igor 14 Day Sensor Kit See Rx Instructions .Route Qty: 1 12RF Rx Instructions: As directed insulin glargine [Lantus Solostar U-100 Insulin] 100 unit/mL (3 mL) insulin pen 20 unit SUBCUT QAM valsartan 160 mg tablet 160 mg PO DAILY Qty: 90 3RF (DME) diabetic shoes with 3 inserts See Rx Instructions .Route .MEDSUPPLY Qty: 1 0RF Rx Instructions: As directed to HOME (DME) pen needle, diabetic [1st Tier Unifine Pentips] 31 gauge x 3/16 needle See Rx Instructions .Route Qty: 100 5RF Rx Instructions: As directed acetaminophen 500 mg Tablet 1,000 mg PO Q6H PRN (Reason: Pain) insulin aspart U-100 [Novolog FlexPen U-100 Insulin] 100 unit/mL (3 mL) insulin pen See Rx Instructions .ROUTE .COMPLEX Qty: 15 0RF Rx Instructions: Inject 0 to6 units 3 times daily, after meals, based on sliding scale provided, atorvastatin 80 mg tablet 80 mg PO BEDTIME 30 Days Qty: 30 0RF clopidogrel 75 mg tablet 75 mg PO DAILY 30 Days Qty: 30 0RF aspirin 81 mg Tablet,Delayed Release (Dr/Ec) 81 mg PO DAILY 30 Days Qty: 30 0RF amlodipine 10 mg tablet 10 mg PO DAILY nitroglycerin 0.4 mg Tablet, Sublingual 0.4 mg sublingual Q5M PRN (Reason: Chest Pain) Qty: 30 0RF hydralazine 50 mg tablet 100 mg PO TID Qty: 180 0RF Discharge Orders: Discharge ED (Routine); Ordered 01/02/25 Ordered By: Henrik Lam Referrals: Ezio Leahy FNP [Primary Care Provider, [facility]] Discharge Diet: Low Salt Discharge Activity: Increase activity as tolerated Patient Instructions: Chest Pain (ED), Opioid Safety, Pain Management, Patient Portal & Mercedes Instructions Activity Restrictions/Additional Instructions: Medications: 1. Emdur 30mg - Take 1 tablet three times daily as prescribed 2. Diazepam 5mg - Take 1 tablet as needed for severe leg cramps, not to exceed 3 tablets per day 3. Continue all your regular medications as previously prescribed Follow-up: 1. Continue your regular dialysis schedule 2. Follow up with your meat cutter apprentice within 1 week 3. Follow up with your primary care physician within 2 weeks Return to the Emergency Department immediately if you experience: 1. Severe or worsening chest pain not relieved by rest or nitroglycerin 2. Shortness of breath or difficulty breathing 3. Dizziness, lightheadedness, or fainting 4. Severe leg pain, swelling, or inability to walk 5. Any other concerning symptoms Additional instructions: 1. Rest as needed and avoid strenuous activity for the next 48 hours 2. Take all medications as prescribed 3. 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
--- NOTE | 2025-01-02 21:59 | ECG_ITS ---
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 Measurements Intervals [place] Rate: 71 P: 55 [place]: 197 QRS: -55 QRSD: 130 T: 46 QT: 403 QTc: 440 Interpretive Statements SINUS RHYTHM POSSIBLE RIGHT VENTRICULAR CONDUCTION DELAY [RSR (QR) IN V1/V2] LEFT ANTERIOR FASCICULAR BLOCK [QRS AXIS <= -45, QR IN I, RS IN II] MINIMAL VOLTAGE CRITERIA FOR LVH, CONSIDER NORMAL VARIANT [MEETS CRITERIA IN ONE OF: R(aVL), S(V1), R(V5), R(V5/V6)+S(V1)] ANTEROSEPTAL MYOCARDIAL INFARCTION , OF INDETERMINATE AGE [40+ ms Q WAVE IN V1-V4] Compared to ECG 01/02/2025 15:28:13 Left anterior fascicular block now present Intraventricular conduction delay no longer present Myocardial infarct finding still present Electronically Signed On 01-02-2025 20:22:04 CDT by Jeffry Pugh M.D. [email or web address]
== END 2025-01-02 21:15 | disposition home or self-care (01) ==
PROVIDERS: Emergency Provider Student in an Organized Health Care Education/Training Program; PCP Nurse Practitioner Family
DX: R07.9 Chest pain, unspecified (principal); Z79.4 Long term (current) use of insulin; Z79.02 Long term (current) use of antithrombotics/antiplatelets; Z79.82 Long term (current) use of aspirin; I25.10 Atherosclerotic heart disease of native coronary artery without angina pectoris; E78.5 Hyperlipidemia, unspecified; I11.0 Hypertensive heart disease with heart failure; I50.9 Heart failure, unspecified; E11.9 Type 2 diabetes mellitus without complications
CPT/HCPCS: 36415; 71045; 80053; 84484; 85025; 93005; 96374; 99285; J2270; J9999